=== PATIENT | female | born 1960 | race Caucasian/White ===

== ENCOUNTER → 2017-12-02 11:51 | Outpatient (CLI) | payer MEDICAID, SELFPAY ==
[2017-12-02 14:17] LABS: Hematocrit 40.8 % (37-47); Hemoglobin 13.2 g/dl (12.0-15.0); Mean Corp Hgb Conc 32.4 g/gl (32-36); Mean Corpuscular Volume 92.7 fL (81-99); Mean Platelet Vol. 10.1 fl (6.2-12.0); Platelet Count 159 K/mm3 (150-450); RBC Distribution Width CV 13.7 % (11.6-14.6); RBC Distribution Width SD 45.1 fl (35.1-43.9); White Blood Count 5.1 K/mm3 (4.4-11.0)
[2017-12-02 14:20] LABS: Scan Indicated on CBC? Y/N NO
[2017-12-02 14:36] LABS: Vitamin D,25 Hydroxy 22.9 ng/mL (19.95-100.01)
[2017-12-02 14:37] LABS: Thyroid Stim Hormone (TSH) 4.82 uIU/mL (0.358-3.74)
== END ==
PROVIDERS: Family Provider Family Medicine; PCP Family Medicine; Visit Provider Family Medicine
DX: E11.9 Type 2 diabetes mellitus without complications (principal); E03.9 Hypothyroidism, unspecified; E55.9 Vitamin D deficiency, unspecified
CPT/HCPCS: 36415; 82306; 83036; 84443; 85027

== ENCOUNTER → 2018-12-29 13:12 | Outpatient (CLI) | payer MEDICAID, SELFPAY ==
[2018-12-29 14:30] LABS: Absolute Lymphocyte Count 2.08 X10^3/ul (0.83-4.51); Absolute Neutrophil Count 2.7 X10^3/uL (2.0-7.7); Basophil# 0.01 X10^3/uL; Basophil% 0.2 % (0-1); Eosinophil# 0.05 X10^3/uL; Hematocrit 41.8 % (37-47); Hemoglobin 12.8 g/dl (12.0-15.0); Lymphocyte # 2.08 X10^3/ul (4.0); Lymphocyte % 40.2 % (19-41); Mean Corp Hgb Conc 30.6 g/gl (32-36); Mean Corpuscular Volume 94.6 fL (81-99); Mean Platelet Vol. 9.9 fl (6.2-12.0); Monocyte# 0.31 X10^3/uL; Neutrophil % 52.2 % (47-70); Platelet Count 170 K/mm3 (150-450); RBC Distribution Width CV 13.6 % (11.6-14.6); RBC Distribution Width SD 45.1 fl (35.1-43.9); Red Blood Count 4.42 M/mm3 (4.2-5.4); White Blood Count 5.2 K/mm3 (4.4-11.0)
[2018-12-29 14:33] LABS: POSITIVE COUNT NO; POSITIVE DIFFERENTIAL NO; POSITIVE MORPHOLOGY NO
[2018-12-29 14:41] LABS: Hemoglobin A1c 7.6 % (4.2-6.3)
[2018-12-29 14:50] LABS: ALB/GLOB Ratio 0.8 RATIO (0.9-2.4); AST(SGOT) 14 U/L (15-37); Alanine Aminotransfer ALT/SGPT 22 U/L (13-56); Albumin, Serum 3.1 g/dL (3.2-5.0); Alkaline Phosphatase 82 U/L (45-117); Anion Gap 10 (5-15); BUN 17 mg/dL (7-18); BUN/Creat Ratio 18.7 RATIO (10-20); Calcium,Total 8.7 mg/dL (8.5-10.1); Chloride 101 mmol/L (98-107); Cholesterol 193 mg/dL (200); Creatinine, Serum 0.91 mg/dL (0.55-1.02); EST Glomerular Filtration Rate 67 mL/min (>60); Est Glom Filt Rate - Afr Amer 82 mL/min (>60); Glucose 173 mg/dL (74-106); High Density Lipoprotein 55 mg/dL; Potassium 4.2 mmol/L (3.5-5.1); Protein, Total 7.1 g/dL (6.4-8.2); Sodium Level 141 mmol/L (136-145); Triglycerides 220 mg/dL; Very Low Density Lipoprotein 44 mg/dL (5-40)
[2018-12-29 14:53] LABS: Vitamin B12 1076 pg/mL (211-911); Vitamin D,25 Hydroxy 26.8 ng/mL (29.95-100.01)
== END ==
PROVIDERS: Family Provider Family Medicine; PCP Family Medicine; Referring Provider Family Medicine; Visit Provider Family Medicine
DX: E11.9 Type 2 diabetes mellitus without complications (principal); E78.00 Pure hypercholesterolemia, unspecified; E55.9 Vitamin D deficiency, unspecified; R53.81 Other malaise; R53.83 Other fatigue
CPT/HCPCS: 36415; 80053; 80061; 82306; 82607; 83036; 84443; 85025

== ENCOUNTER → 2019-07-23 14:35 | Outpatient (CLI) | payer MEDICAID, SELFPAY ==
[2019-07-23 15:41] LABS: Hematocrit 42.4 % (37-47); Hemoglobin 13.5 g/dL (12.0-15.0); Mean Corp Hgb Conc 31.8 g/dL (32-36); Mean Corpuscular Hgb 29.5 pg (27.0-32.0); Mean Corpuscular Volume 92.8 fL (81-99); Mean Platelet Vol. 10.2 fl (6.2-12.0); Platelet Count 174 K/mm3 (150-450); RBC Distribution Width CV 13.2 % (11.6-14.6); Red Blood Count 4.57 M/mm3 (4.2-5.4); White Blood Count 7.3 K/mm3 (4.4-11.0)
[2019-07-23 16:08] LABS: Hemoglobin A1c 5.8 % (4.2-6.3)
[2019-07-23 16:30] LABS: Anion Gap 10 (5-15); BUN 26 mg/dL (7-18); BUN/Creat Ratio 27.4 RATIO (10-20); Calcium,Total 9.3 mg/dL (8.5-10.1); Chloride 102 mmol/L (98-107); Cholesterol 186 mg/dL (200); Creatinine, Serum 0.95 mg/dL (0.55-1.02); EST Glomerular Filtration Rate 64 mL/min (>60); Est Glom Filt Rate - Afr Amer 78 mL/min (>60); Glucose 89 mg/dL (74-106); High Density Lipoprotein 63 mg/dL; Potassium 4.1 mmol/L (3.5-5.1); Sodium Level 140 mmol/L (136-145); Triglycerides 214 mg/dL; Very Low Density Lipoprotein 43 mg/dL (5-40)
[2019-07-23 16:43] LABS: Vitamin B12 620 pg/mL (211-911); Vitamin D,25 Hydroxy 36.6 ng/mL (29.95-100.01)
== END ==
PROVIDERS: Family Provider Family Medicine; PCP Family Medicine; Referring Provider Family Medicine; Visit Provider Family Medicine
DX: I10 Essential (primary) hypertension (principal); E11.9 Type 2 diabetes mellitus without complications; E78.00 Pure hypercholesterolemia, unspecified; E03.9 Hypothyroidism, unspecified; E55.9 Vitamin D deficiency, unspecified
CPT/HCPCS: 36415; 80048; 80061; 82306; 82607; 83036; 84443; 85027

== ENCOUNTER → 2019-10-14 17:21 | Outpatient (CLI) | payer MEDICAID, SELFPAY ==
--- NOTE | 2019-10-14 17:28 | RAD_ITS ---
STUDY: X-RAY - SACRUM/COCCYX REASON FOR EXAM: Female, 59 years old. Pain.. TECHNIQUE: 3 view(s) of the sacrum and coccyx were obtained. COMPARISON: None. FINDINGS: Normal bilateral sacroiliac joints. Normal visualized sacral ala and fused sacral bodies. Normal sacrococcygeal junction with a normal angulation. Normal coccygeal segments. The presacral soft tissue structures are unremarkable. There is no demonstrated fracture. RAD/Sacrum-Coccyx min 2 Views IMPRESSION: Normal x-rays of the sacrum and coccyx. Electronically Signed: Stiven Lee MD at 21:25 EST , Service support ,
--- NOTE | 2019-10-14 17:35 | RAD_ITS ---
STUDY: X-RAY - LUMBAR SPINE REASON FOR EXAM: Female, 59 years old. Pain. TECHNIQUE: 3 view(s) of the lumbar spine were obtained. COMPARISON: None FINDINGS: Normal lumbar lordosis. There is no substantial scoliosis. There is a normal alignment of the vertebrae. Normal vertebral bodies and endplates. Normal disc space heights. There is no demonstrated fracture. The soft tissue structures are unremarkable. RAD/Lumbar Spine 2 or 3 Views IMPRESSION: Normal x-ray examination of the lumbar spine. Electronically Signed: Stiven Lee MD at 21:26 EST , Service support ,
== END ==
PROVIDERS: Family Provider Family Medicine; PCP Family Medicine; Referring Provider Anesthesiology Pain Medicine; Visit Provider Anesthesiology Pain Medicine
DX: M54.5 Low back pain (principal); W19.XXXA Unspecified fall, initial encounter
CPT/HCPCS: 72100; 72220

== ENCOUNTER → 2019-12-08 12:06 | Outpatient (CLI) | payer MEDICAID, SELFPAY ==
[2019-12-08 15:59] LABS: Amphetamine Urine VISTA NEGATIVE (<1000 ng/mL); Barbiturate Urine VISTA NEGATIVE (< 200 ng/mL); Benzodiazepine Urine VISTA POSITIVE (< 200 ng/mL); Cocaine Urine VISTA NEGATIVE (< 300 ng/mL); Ecstacy Urine VISTA NEGATIVE (< 500 ng/mL); Methadone Urine VISTA NEGATIVE (< 300 ng/mL); PCP Urine VISTA NEGATIVE (< 25 ng/mL); THC Urine VISTA NEGATIVE (< 50 ng/mL); Vista UDS pH Range 5
== END ==
PROVIDERS: PCP Family Medicine; Visit Provider Family Medicine
DX: F41.1 Generalized anxiety disorder (principal)
CPT/HCPCS: 80307

== ENCOUNTER → 2020-05-12 15:22 | Outpatient (CLI) | payer MEDICAID, SELFPAY ==
[2020-05-12 18:14] LABS: Anion Gap 9 (5-15); BUN 22 mg/dL (7-18); BUN/Creat Ratio 26.6 RATIO (10-20); Calcium,Total 9.1 mg/dL (8.5-10.1); Chloride 101 mmol/L (98-107); Cholesterol 241 mg/dL (200); Creatinine, Serum 0.83 mg/dL (0.55-1.02); EST Glomerular Filtration Rate 75 mL/min (>60); Est Glom Filt Rate - Afr Amer 91 mL/min (>60); Glucose 138 mg/dL (74-106); High Density Lipoprotein 51 mg/dL; Sodium Level 137 mmol/L (136-145); Triglycerides 359 mg/dL; Very Low Density Lipoprotein 72 mg/dL (5-40)
[2020-05-12 19:06] LABS: Hemoglobin A1c 5.7 % (3.8-5.6)
[2020-05-13 08:34] LABS: Vitamin B12 > 2000 pg/mL (211-911)
== END ==
PROVIDERS: PCP Family Medicine; Visit Provider Family Medicine
DX: I10 Essential (primary) hypertension (principal); E11.9 Type 2 diabetes mellitus without complications; E53.8 Deficiency of other specified B group vitamins
CPT/HCPCS: 36415; 80048; 80061; 82607; 83036

== ENCOUNTER 2020-07-27 23:01 | Emergency (ER) | payer MEDICAID, SELFPAY ==
[2020-07-27 23:03] VITALS: BP 141/77; PULSE 83; RESP 18; TEMP 37.1; O2SAT 93; BMI 45.1
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
[2020-07-28] VITALS (11 sets, daily range): BP systolic 141–156; BP diastolic 77–83; PULSE 86–100; RESP 14–17; TEMP 36.7; O2SAT 94–98
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
[2020-07-28 00:23] LABS: Absolute Lymphocyte Count 1.64 X10^3/uL (0.83-4.51); Absolute Neutrophil Count 5.9 X10^3/uL (2.0-7.7); Basophil# 0.03 X10^3/uL; Basophil% 0.4 % (0-1); Hematocrit 43.1 % (37-47); Hemoglobin 13.9 g/dL (12.0-15.0); Lymphocyte # 1.64 X10^3/ul (4.0); Lymphocyte % 20.2 % (19-41); Mean Corp Hgb Conc 32.3 g/dL (32-36); Mean Corpuscular Hgb 30.5 pg (27.0-32.0); Mean Corpuscular Volume 94.7 fL (81-99); Monocyte# 0.52 X10^3/uL; Monocyte% 6.4 % (0-10); NRBC Flagged by Analyzer 0 % (0-5); Neutrophil # 5.86 X10^3/uL (2.7-7.7); Neutrophil % 72.3 % (47-70); Platelet Count 150 K/mm3 (150-450); RBC Distribution Width CV 13.2 % (11.6-14.6); RBC Distribution Width SD 45.1 fl (35.1-43.9); Red Blood Count 4.55 M/mm3 (4.2-5.4); White Blood Count 8.1 K/mm3 (4.4-11.0)
[2020-07-28 00:57] LABS: Mucous, Urine 0 SEEN /hpf (<or=2+)
[2020-07-28 00:58] LABS: Color, Urine Yellow (Yellow); Glucose, Dipstick Normal (Normal); Leukocyte Esterase-Dipstick 500 /ul (Negative); Nitrite-Dipstick Negative (Negative); Occult Blood-Urine 10 /ul (Negative); Protein-Dipstick 30 mg/dl (Negative); Specific Gravity, Urine 1.025 (1.002-1.030); Urine Clarity Sl. Cloudy (Clear); Urine Urobilinogen 4 mg/dl (Normal)
[2020-07-28 01:03] LABS: Urine Bilirubin Dipstick 1 mg/dL (Negative)
[2020-07-28 01:04] LABS: Bacteria 1+ /hpf (None Seen); Ketone-Dipstick 150 mg/dl (Negative); Red Blood Cells-Urine 5-10 SEEN /hpf (0-5); Squamous Epithelial Cells - UA 10-25 SEEN /hpf (5-10); White Blood Cells 5-10 SEEN /hpf (0-5)
[2020-07-28 01:22] LABS: Alcohol, Blood (Medical)-Serum < 3.0 mg/dL; Anion Gap 13 (5-15); BUN 11 mg/dL (7-18); BUN/Creat Ratio 13.7 RATIO (10-20); Calcium,Total 9.2 mg/dL (8.5-10.1); Chloride 102 mmol/L (98-107); EST Glomerular Filtration Rate 78 mL/min (>60); Est Glom Filt Rate - Afr Amer 94 mL/min (>60); Estimated Creatinine Clearance 65.38 ml/min; Glucose 127 mg/dL (74-106); Potassium 3.6 mmol/L (3.5-5.1); Sodium Level 139 mmol/L (136-145)
[2020-07-28 01:23] LABS: Amphetamine Urine VISTA NEGATIVE (<1000 ng/mL); Barbiturate Urine VISTA NEGATIVE (< 200 ng/mL); Benzodiazepine Urine VISTA POSITIVE (< 200 ng/mL); Cocaine Urine VISTA NEGATIVE (< 300 ng/mL); Ecstacy Urine VISTA NEGATIVE (< 500 ng/mL); Methadone Urine VISTA NEGATIVE (< 300 ng/mL); PCP Urine VISTA NEGATIVE (< 25 ng/mL); THC Urine VISTA NEGATIVE (< 50 ng/mL); Vista UDS pH Range 6
--- NOTE | 2020-07-28 01:28 | NURSING ---
REPORT FAXED TO [facility]
[2020-07-28] MEDS: busPIRone 5 MG Tablet 10 MG PO (03:14)
--- NOTE | 2020-07-28 03:35 | ED.RN ---
MARIO PASTRANA FOR PT TO TAKE HER HOME NIGHTLY MEDS.
--- NOTE | 2020-07-28 12:23 | CM.ED ---
Social Work Telephone call from [facility]. Requesting for COVID-19 results and tox screen to be faxed to [facility]. Above clinical information faxed to [facility]. Robb GREEN, DORA
--- NOTE | 2020-07-28 12:51 | CM.ED ---
Social Work [facility] faxing COVID-19 screen to be completed with patient. This social director assisting patient in completing COVID-19 screen. COVID-19 screen and pink slip faxed per [facility] request. Crisis updated. Robb GREEN, SELENA-S
== END 2020-07-28 14:40 ==
LOC: ED 07-28 00:42
PROVIDERS: Emergency Medicine; Emergency Provider Emergency Medicine; PCP Internal Medicine
DX: F20.9 Schizophrenia, unspecified (principal); E66.9 Obesity, unspecified
CPT/HCPCS: 36415; 80048; 80307; 80320; 81001; 85025; 87635; 99285; G0480; U0003

== ENCOUNTER → 2021-03-02 16:48 | Outpatient (CLI) | payer MEDICAID, SELFPAY ==
--- NOTE | 2021-03-02 16:52 | RAD_ITS ---
STUDY: X-RAY - CERVICAL SPINE REASON FOR EXAM: Female, 60 years old. NECK PAIN TECHNIQUE: 3 view(s) of the cervical spine were obtained. COMPARISON: None FINDINGS: Normal anterior atlantoaxial articulation. Normal odontoid process. Normal cervical lordosis. Mild degree of disc space narrowing and spondylosis at the C5-C6 level. Marked degree of disc space narrowing and spondylosis at the C6-C7 level. Normal visualized intervertebral neuroforamina. The soft tissue structures are unremarkable. RAD/Cerv Spine 2 or 3 Views IMPRESSION: Disc space narrowing and spondylosis at the C5-C6 and C6-C7 level. Electronically Signed: Kash Rucker MD at 15:19 EDT , Service support ,
--- NOTE | 2021-03-02 17:10 | RAD_ITS ---
STUDY: X-RAY - LEFT KNEE REASON FOR EXAM: Female, 60 years old. Knee pain. TECHNIQUE: 4 view(s) of the knee. COMPARISON: None. FINDINGS: Normal visualized distal femur. Normal visualized proximal tibia and fibula. Normal proximal tibiofibular articulation. Severe arthrosis of the medial compartment, moderate arthrosis of the lateral compartment and moderate to severe arthrosis of the patellofemoral compartment with osteophyte formation. The soft tissue structures are unremarkable. RAD/Knee 4 or More Views IMPRESSION: Tricompartmental arthrosis as described. Electronically Signed: Blas Villalobos MD at 12:07 EDT , Service support ,
== END ==
PROVIDERS: PCP Internal Medicine; Referring Provider Anesthesiology Pain Medicine; Visit Provider Anesthesiology Pain Medicine
DX: M47.812 Spondylosis without myelopathy or radiculopathy, cervical region (principal); M48.02 Spinal stenosis, cervical region; M17.12 Unilateral primary osteoarthritis, left knee
CPT/HCPCS: 72040; 73564

== ENCOUNTER 2023-09-30 13:52 | Emergency (ER) | payer MEDICAID, SELFPAY ==
[2023-09-30 13:52] VITALS: BP 155/99; PULSE 76; RESP 20; TEMP 36.1; O2SAT 97
[2023-09-30 13:55] VITALS: BMI 44.3
[2023-09-30 15:52] VITALS: BP 150/90; PULSE 74; RESP 16; TEMP 36.2; O2SAT 96
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
[2023-09-30] MEDS: 0.9% Normal Saline (1000mL) 1,000 ML 1000 ML IV (16:23)
[2023-09-30] MEDS: hydrOXYzine PAM 25 MG Capsule 50 MG PO (16:24)
[2023-09-30 16:46] LABS: Bacteria 0 SEEN /hpf (None Seen); Mucous, Urine 0 SEEN /hpf (<or=2+); Red Blood Cells-Urine 0 SEEN /hpf (0-5); Squamous Epithelial Cells - UA 0 SEEN /hpf (5-10)
[2023-09-30 16:48] LABS: Color, Urine Yellow (Yellow); Glucose, Dipstick Normal (Normal); Ketone-Dipstick Negative (Negative); Leukocyte Esterase-Dipstick 25 /ul (Negative); Nitrite-Dipstick Negative (Negative); Occult Blood-Urine Negative /ul (Negative); Protein-Dipstick Negative (Negative); Urine Bilirubin Dipstick Negative (Negative); Urine Clarity Clear (Clear); Urine Urobilinogen Normal (Normal)
[2023-09-30 16:54] LABS: White Blood Cells 0-5 SEEN /hpf (0-5)
[2023-09-30 17:00] VITALS: BP 147/75; PULSE 74; RESP 16; TEMP 36.7; O2SAT 97
[2023-09-30 19:01] LABS: Absolute Neutrophil Count 4.2 X10^3/uL (2.0-7.7); Basophil# 0.03 X10^3/uL; Basophil% 0.5 % (0-1); Hematocrit 40.6 % (37-47); Lymphocyte % 23.9 % (19-41); Mean Corpuscular Hgb 30.6 pg (27.0-32.0); Mean Corpuscular Volume 95.5 fL (81-99); Mean Platelet Vol. 10.8 fl (6.2-12.0); Monocyte# 0.25 X10^3/uL; Monocyte% 4.3 % (0-10); NRBC Flagged by Analyzer 0 % (0-5); Neutrophil # 4.16 X10^3/uL (2.7-7.7); Platelet Count 129 K/mm3 (150-450); RBC Distribution Width CV 12.3 % (11.6-14.6); RBC Distribution Width SD 43.3 fl (35.1-43.9); Red Blood Count 4.25 M/mm3 (4.2-5.4); White Blood Count 5.9 K/mm3 (4.4-11.0)
[2023-09-30 19:16] LABS: AST(SGOT) 11 U/L (15-37); Alanine Aminotransfer ALT/SGPT 18 U/L (13-56); Albumin, Serum 3.3 g/dL (3.2-5.0); Alkaline Phosphatase 73 U/L (45-117); Anion Gap 4 (5-15); BUN 9 mg/dL (7-18); BUN/Creat Ratio 12.1 RATIO (10-20); Calcium,Total 8.5 mg/dL (8.5-10.1); Chloride 108 mmol/L (98-107); Creatinine, Serum 0.74 mg/dL (0.55-1.02); EST Glomerular Filtration Rate 84 mL/min (>60); Est Glom Filt Rate - Afr Amer 101 mL/min (>60); Estimated Creatinine Clearance 68.07 ml/min; Globulin 3.4 g/dL (2.2-4.2); Glucose 121 mg/dL (74-106); Potassium 3.8 mmol/L (3.5-5.1); Protein, Total 6.7 g/dL (6.4-8.2); Sodium Level 142 mmol/L (136-145)
--- NOTE | 2023-09-30 19:45 | CT_ITS ---
INDICATION: Diarrhea EXAMINATION: CT ABDOMEN AND PELVIS with CONTRAST - CT Abdomen And Pelvis W/ Contrast Injection TECHNIQUE: Multiple axial images were obtained of the abdomen and pelvis following administration of IV contrast. Planar reconstructions obtained. A radiation dose optimization technique was used for this scan. RADIATION DOSAGE (If Supplied By Facility): CTDIvol = ( 17.02 ) mGy, DLP = ( 1346.69 ) mGycm IV Contrast dosage and agent: 100 mL Isovue-370 Oral contrast: None. COMPARISON: Previous examination of 09/22/2012 is not currently available. FINDINGS: LOWER THORAX: Lungs are clear. Cardiac contour is normal, no pericardial effusion. No coronary vascular calcifications noted. HEPATOBILIARY: Liver: The liver is homogeneous and shows no evidence of focal lesion. Mild diffuse hepatic steatosis. Gallbladder: The gallbladder is unremarkable. Pancreas: Pancreas is normal size configuration and density. No mass is noted. Spleen: The spleen is homogeneous and normal in size. . BOWEL: Stomach: The stomach is normal in size configuration, no evidence of focal masses, abnormal calcifications. No hiatal hernia noted. Bowel: Small and large have normal configuration, no masses or bowel obstruction noted. Appendix: The visualized appendix has normal appearance.: GENITOURINARY: Adrenals: Both adrenal glands are normal in size. Kidneys: Kidneys appear symmetric in size. No calcifications are seen in the collecting system. There is no hydronephrosis or surrounding fluid. Bladder: Normal Pelvic organs: The visualized pelvic organs are normal in size and configuration. No masses or adenopathy noted. RETROPERITONEUM: Diffuse aortic calcifications without aneurysmal dilatation. LYMPH NODES: No evidence of retroperitoneal or para-aortic masses fluid collections or adenopathy. PERITONEAL CAVITY: No ascites noted ANTERIOR ABDOMINAL WALL: Normal, no hernia identified. BONES AND SOFT TISSUES: The skeleton shows no evidence for fractures or destructive lesions. OTHER: None CT/Abdomen/Pelvis W IV Cont ONLY IMPRESSION: 1. No masses bowel obstruction abscess free fluid or free air. No evidence diverticulitis or appendicitis. 2. No evidence of cholelithiasis or ductal dilatation. 3. No evidence of renal calcification or obstructive uropathy. 4. Mild diffuse hepatic steatosis. Electronically Signed: Tye Vance MD at 20:03 EST ,
== END 2023-09-30 20:40 | disposition home or self-care (01) ==
PROVIDERS: Emergency Provider Emergency Medicine; PCP Internal Medicine; Visit Provider Emergency Medicine
DX: F41.9 Anxiety disorder, unspecified (principal); F31.9 Bipolar disorder, unspecified; E11.9 Type 2 diabetes mellitus without complications; Z79.4 Long term (current) use of insulin; R19.7 Diarrhea, unspecified; E78.00 Pure hypercholesterolemia, unspecified; I10 Essential (primary) hypertension; Z79.899 Other long term (current) drug therapy
CPT/HCPCS: 74177; 80053; 81001; 85025; 96360; 99285; J7030; J7050; Q9967; A4216

== ENCOUNTER 2025-07-31 03:30 | Emergency (ER) | payer MEDICAID, SELFPAY ==
[2025-07-31 03:32] VITALS: BP 147/73; PULSE 83; RESP 15; TEMP 37.3; O2SAT 97
--- NOTE | 2025-07-31 03:51 | CT_ITS ---
PROCEDURE: BRAIN/HEAD WITHOUT CONTRAST 07/31/2025 REASON FOR EXAM: VERTIGO TECHNIQUE: Procedure Code: CTBR Modality: CT Procedure: BRAIN/HEAD WITHOUT CONTRAST Coronal and Sagittal reconstruction series were provided. One or more dose reduction techniques were used (e.g., Automated exposure control, adjustment of the mA and/or kV according to patient size, use of iterative reconstruction technique. RADIATION DOSE SUMMARY: CTDI Vol 44.99 mGy DLP :846.73 mGycm COMPARISON: None FINDINGS: The visualized brain parenchyma shows normal appearance. No focal parenchymal abnormalities are demonstrated. Zee-white matter differentiation is maintained. Normal CT appearance of the posterior fossa structures. No intracerebral or extra-axial hemorrhage. No midline shifts or deformity. Normal size and configuration of the cerebral ventricles. Prominent fronto-parietal extra-axial CSF spaces. No definite calvarial fractures. The osseous structures in the skull base are unremarkable. Paranasal sinuses are unremarkable. Vascular atheromatous calcifications. CT/Brain/Head without Contrast IMPRESSION: No intracerebral or extra-axial hemorrhage. No acute cerebrovascular insult. If clinical symptoms persist, further evaluati on with MRI may be considered as clinically warranted. Reading [facility]
--- NOTE | 2025-07-31 03:53 | EX.ED.DYSGE1 ---
HPI History of Present Illness Chief Complaint: Dizziness Informant: patient and EMS Narrative Narrative: Patient is a 65-year-old female with a history of severe osteoarthritis and sciatica presenting at 0330 with worsening dizziness and imbalance. - This AM, felt extremely shaky, hot, dizzy, and nauseous; required assistance to walk to the bathroom due to more severe vertigo than she has had in past several weeks. - Denies emesis, but reports nausea. - Reports severe dizziness and imbalance, exacerbated over the past 3-4 weeks since a fall. - Initially began experiencing dizziness 4 months ago - Fall occurred while attempting to adjust AC and close windows; resulted in hitting arm against a wall and falling on both knees. - Since the fall, reports worsening dizziness and imbalance, describing a sensation of vertigo and a mix of my body wanting to shut down. - Reports tingling in legs and tinnitus. - Experiencing severe neck pain radiating to the left shoulder blade since the fall. - Reports chronic sciatica pain since 2012, with recent exacerbation; has not had an MRI. - Reports inability to control bladder for the past 6 months, worsening over the last 4 months; wears Depends. - Diagnosed with severe osteoarthritis; advised to consider left knee replacement. - Reports variable blood pressure readings, with recent measurements of 155/80 and 117/80; usual BP is 118/70. - Underwent Maninder maneuver 2 days ago, which provided some relief. Saw Dr. Branch and diagnosed w/ BPPV. - Scheduled to see a new psychiatrist in July for medication management. [facility] Medical History Fibromyalgia Osteoarthritis DDD (degenerative disc disease) FHx: total knee replacement Overactive bladder Diabetes High cholesterol Hypertension Bipolar 1 disorder Depression Anxiety Panic disorder Home Medications ?Medication ?Instructions ?Recorded ?Last Taken ?Type oxybutynin chloride 10 mg 10 mg PO QHS 11/27/13 09/29/23 History tablet,extended release 24 hr (Ditropan XL) quetiapine 200 mg tablet (Seroquel) 150 mg PO QHS 11/27/13 09/29/23 History divalproex 500 mg tablet,delayed 500 mg PO BID 12/04/13 09/30/23 History release (Depakote) metoprolol tartrate 50 mg tablet 50 mg PO BID 12/04/13 09/30/23 History nystatin 100,000 unit/gram topical 1 applic topical TID ##1 08/02/14 09/30/23 Rx [facility] [place] Oxybutynin Chloride [Ditropan Xl] 5 mg PO DAILY 10/22/14 09/30/23 History cholecalciferol (vitamin D3) 25 2,000 unit PO DAILY 10/22/14 09/30/23 History mcg (1,000 unit) tablet (Vitamin D3) duloxetine 60 mg capsule,delayed 60 mg PO BID 10/22/14 09/30/23 History release omeprazole 20 mg capsule,delayed 20 mg PO DAILY 10/22/14 09/30/23 History release pregabalin 50 mg capsule 100 mg PO BID 10/22/14 09/30/23 History atorvastatin 40 mg tablet 40 mg PO QHS 07/27/20 09/29/23 History buspirone 5 mg tablet 10 mg PO TID 07/27/20 09/30/23 History furosemide 20 mg tablet 20 mg PO DAILY 07/27/20 09/30/23 History insulin glargine 100 unit/mL (3 30 - 40 unit SQ QHS 07/27/20 09/30/23 History mL) subcutaneous pen sertraline 100 mg tablet 200 mg PO DAILY 07/27/20 09/30/23 History hydroxyzine pamoate 50 mg capsule 50 mg PO TID PRN anxiety #15 caps 09/30/23 Unknown Rx Allergy/AdvReac Type Severity Reaction Status Date / Time acetaminophen (From Tylenol) Allergy Swelling Verified 09/30/23 18:56 amoxicillin (Amoxicillin) Allergy Rash Verified 09/30/23 18:56 haloperidol (From Haldol) Allergy Other Verified 09/30/23 18:56 haloperidol lactate (From Allergy Other Verified 09/30/23 18:56 Haldol) lithium ([place]) Allergy Other Verified 09/30/23 18:56 naproxen sodium (From Aleve) Allergy Swelling Verified 09/30/23 18:56 Surgical History H/O: hysterectomy History of rectal surgery History of tonsillectomy Social History Smoking Status: Never smoker ROS ROS ED Constitutional Constitutional ED: Denies chills or fever(s) Eyes Eyes: Denies change in vision or diplopia ENT ENT ED: Reports as per HPI, tinnitus and vertigo; Denies headache(s), hearing loss, rhinorrhea or sore throat Cardiovascular Cardiovascular: Denies chest pain or palpitations Respiratory/Chest Respiratory/Chest: Denies cough or dyspnea Gastrointestinal Gastrointestinal: Reports nausea; Denies abdominal pain, diarrhea or vomiting Genitourinary Genitourinary ED: Reports as per HPI and urinary incontinence; Denies dysuria or hematuria Musculoskeletal Musculoskeletal: Reports arthralgias, back pain and neck pain Integumentary Denies abscess or rash Neurologic Neurologic: Reports paresthesias LLE; Denies headache(s) or weakness Psychiatric Psychiatric: Denies suicidal thoughts EXAM Physical Exam Const Vital Signs: 07/31/25 03:32 07/31/25 05:31 07/31/25 07:00 Temperature 99.1 F Temperature Source Oral Pulse Rate 83 78 84 Respiratory Rate 15 16 16 Blood Pressure 147/73 H 114/62 143/70 H Blood Pressure Mean 97 79 94 Pulse Ox 97 95 98 Oxygen Delivery Method Room Air Room Air Positive well nourished and well developed General Appearance ED: well developed and NAD HEENT Reports moist mucous membranes normocephalic and atraumatic Eyes PERRL and EOMs intact bilaterally Eyes Narrative: No direction changing nystagmus. No visual field cuts. Neck full ROM and supple Resp normal respiratory effort and clear to auscultation bilaterally Cardio regular rate, regular rhythm and no murmurs GI non-tender and non-distended Auscultation: normoactive bowel sounds Palpation: soft Back/Spine no CVA tenderness Back/Spine Narrative: Straight leg raises are negative bilaterally; on the left it causes pain in her thigh only and on the right she has no discomfort up to about 50 degrees. No radicular symptoms reproduced. General Back: other FROM Extremity normal to inspection General Extremety ED: Negative for edema, pulses abnormal or tenderness General Extremity: Negative for edema or pulses abnormal Neuro oriented x3, CN's II-XII intact bilaterally and no sensory deficits noted Neuro Narrative: Reflexes all symmetric and unremarkable. No clonus. Downgoing toes bilaterally. Sensorium / Orientation: awake and alert Motor Exam: strength 5/5 throughout Psych Psych Narrative: Pressured speech, flight of ideas and tangential Skin no rashes or lesions noted and no wounds MDM MDM MDM Narrative Medical decision making narrative: Patient states the vertigo is worse than it had been tonight and she feels poorly all over and cannot really describe the details. She states she is here because of all of that understanding that everything else that has been going on has been chronic including her back with what she calls bilateral sciatica, she is seen she has some paresthesias in the left leg but sensation is grossly intact there. She states that when she fell 3 weeks ago she did not injure her back, just fell to her knees and her left neck has been hurting she is tender in the left trapezius but not the midline of the spine, so I do not think she needs emergent radiography of her back or neck. I performed labs and a urinalysis and they are all normal. Her urine shows no evidence of infection, she does not have leukocytosis, and after giving her Valium for the vertigo she states all of her symptoms felt a lot better including vertigo, her left trapezius pain, and the left knee pain that she has been having for a long time. I did a brain CT, my interpretation it is negative for anything acute as expected if she has BPPV. I had nursing help get her out of bed and ambulate her. She did well and felt better. Given the chronicity of the rest of her symptoms, I feel she can safely be discharged home to follow-up. Lab Data Attestation: I reviewed the patient's lab results. Labs: Laboratory Results - last 24 hr 07/31/25 07/31/25 04:01 06:08 WBC 6.0 RBC 4.55 Hgb 13.7 Hct 41.5 MCV 91.2 MCH 30.1 MCHC 33.0 RDW Std Deviation 41.9 RDW Coeff of [place] 12.7 Plt Count 164 MPV 10.3 Immature Gran % (Auto) 0.200 Neut % (Auto) 46.2 L Lymph % (Auto) 44.5 H [place] % (Auto) 6.7 Eos % (Auto) 1.7 Baso % (Auto) 0.7 Absolute Neuts (auto) 2.8 Absolute Lymphs (auto) 2.65 Nucleated RBC % 0 Sodium 140 Potassium 3.8 Chloride 101 Carbon Dioxide 27.3 Anion Gap 12 BUN 13 Creatinine 0.77 Estim Creat Clear Calc 91.94 Est GFR (MDRD) Non-Af 87 BUN/Creatinine Ratio 17.4 Glucose 207 H Calcium 9.1 Total Bilirubin 0.20 AST 21 ALT 18 Alkaline Phosphatase 82 Total Protein 6.6 Albumin 4.0 Globulin 2.5 Albumin/Globulin Ratio 1.6 Urine Color Yellow Urine Clarity Clear Urine pH 5.0 Ur Specific [place] 1.030 Urine Protein 15 H Urine Glucose (UA) Normal Urine Ketones Negative Urine Occult Blood Negative Urine Nitrite Negative Urine Bilirubin Negative Urine Urobilinogen Normal Ur Leukocyte Esterase Negative Urine RBC 0 SEEN Urine WBC 0 SEEN Ur Squamous Epith Cells 0-5 SEEN Urine Bacteria 0 SEEN Urine Mucus 0 SEEN Radiography Diagnostic Testing: Clinical Impression(s) from Imaging Studies Brain CT 07/31/25 03:51 IMPRESSION: No intracerebral or extra-axial hemorrhage. No acute cerebrovascular insult. If clinical symptoms persist, further evaluation with MRI may be considered as clinically warranted. Reading Location: [place] [id number] Discharge Plan Triage Chief Complaint: Dizziness ED Provider: Jose Khoury Dx/Rx/DC Orders Clinical Impression: Episodic peripheral vertigo, Malaise, Multiple somatic complaints, Chronic low back pain Instructions: Vertigo Inner Ear Problems Prescriptions: No Action oxybutynin chloride [Ditropan XL] 10 MG tablet extended release 24hr 10 mg PO QHS quetiapine [Seroquel] 200 MG tablet 150 mg PO QHS divalproex [Depakote] 500 MG tablet,delayed release (DR/EC) 500 mg PO BID metoprolol tartrate 50 MG tablet 50 mg PO BID nystatin [Nyamyc] 1 APPLIC bottle 1 applic topical TID Qty: 1 1RF Oxybutynin Chloride [Ditropan Xl] 5 MG tablet 5 mg PO DAILY omeprazole 20 MG capsule 20 mg PO DAILY duloxetine 60 MG capsule 60 mg PO BID pregabalin 50 MG capsule 100 mg PO BID cholecalciferol (vitamin D3) [Vitamin D3] 1,000 UNIT tablet 2,000 unit PO DAILY atorvastatin 40 MG tablet 40 mg PO QHS sertraline 100 MG tablet 200 mg PO DAILY furosemide 20 MG tablet 20 mg PO DAILY buspirone 5 MG tablet 10 mg PO TID insulin glargine 100 UNIT/ML insulin pen 30 - 40 unit SQ QHS hydroxyzine pamoate 50 mg capsule 50 mg PO TID PRN (Reason: anxiety) Qty: 15 0RF Primary Care Provider: Sheridan Strickland Referrals: Sheridan Strickland MD [Primary Care Provider, Internal Medicine] - 3-5 Days if not improving Print Language: Icelandic Disposition Disposition: Home, Self Care
--- OUTSIDE RECORDS SUMMARY | 2025-07-31 03:55 | XMS RPT_ITS | CCD ---
Author Organization [facility] Care Team Providers Care Cilnical Scientist Name Role Phone Marco A MCDERMOTT, Monik Primary Care Provider [phone] [facility], Keti Unavailable Monik Hackett MD Primary Care Provider [phone] [facility], F[place] Unavailable Monik Hackett MD Primary Care Provider GANTA, MONIK Primary Care Unavailable CARYL BARAJAS-WILLY RODRIGUEZ Primary Care Physician [facility], [place]eti Unavailable Josh Morin Attending Unavailable Ganta, Monik Primary Care Unavailable Monik Hackett MD Primary Care Provider Kelsi Alfred PA-C Unavailable Older GENETICS PHYSICIANRAFAEL, Lala Unavailable Liliana Espinoza PA-C Unavailable GANTA, MONIK Primary Care Unavailable OLDER, LALA Referring Unavailable OLDER, LALA Attending Unavailable GANTA, MONIK Primary Care Unavailable GANTA, MONIK Primary Care Unavailable SPENCER, JAIME Referring Unavailable GANTA, MONIK Primary Care Unavailable SELF Referring Unavailable SPENCER, JAIME Attending Unavailable GANTA, MONIK Primary Care Unavailable GANTA, MONIK Referring Unavailable GANTA, MONIK Referring Unavailable GANTA, MONIK Primary Care Unavailable GANTA, MONIK Attending Unavailable GANTA, MONIK Primary Care Unavailable SPENCER, JAIME Referring Unavailable Allergies Allergy Classification Reported Allergen(s) Allergy Type Date of Onset Reaction(s) Facility Acetaminophen (2 sources) Acetaminophen Drug Allergy 0 Intolerance [facility] Anti-Epileptic Agents (2 sources) gabapentin Drug Allergy 0 Intolerance [facility] glimepiride (2 sources) glimepiride Drug Allergy 0 Intolerance [facility] Haloperidol (2 sources) Haloperidol Drug Allergy 0 Other: See Comments [facility] liraglutide (2 sources) liraglutide Drug Allergy 0 GI Upset [facility] [place] (2 sources) [place] Drug Allergy 0 Other: See Comments [facility] metFORMIN (2 sources) metFORMIN Drug Allergy 0 Diarrhea [facility] Penicillins (antibiotic) (2 sources) Penicillins Drug Allergy 7 Unknown [facility] Povidone-Iodine (2 sources) Povidone-Iodine Drug Allergy 7 Unknown [facility] Work Phone: (20 sources) Acetaminophen; Translations: [ACETAMINOPHEN] Drug Allergy 0 Intolerance [facility] (20 sources) gabapentin; Translations: [GABAPENTIN] Drug Allergy 0 Intolerance [facility] Work Phone: (20 sources) glimepiride; Translations: [GLIMEPIRIDE] Drug Allergy 0 Intolerance [facility] Work Phone: (20 sources) Haloperidol; Translations: [HALOPERIDOL] Drug Allergy 0 Other: See Comments [facility] Work Phone: (20 sources) liraglutide; Translations: [LIRAGLUTIDE] Drug Allergy 0 GI Upset [facility] Work Phone: (20 sources) [place]; Translations: [LITHIUM] Drug Allergy 0 Other: See Comments [facility] Work Phone: (20 sources) metFORMIN; Translations: [METFORMIN] Drug Allergy 0 Diarrhea [facility] Work Phone: (7 sources) Penicillins; Translations: [PENICILLINS] Propensity to adverse reactions to drug 7 Unknown [facility] Work Phone: (20 sources) Povidone-Iodine; Translations: [POVIDONE-IODINE] Drug Allergy 7 Unknown [facility] Work Phone: (20 sources) Penicillins Propensity to adverse reactions to drug 7 Unknown [facility] Work Phone: (2 sources) traMADol; Translations: [tramadol] Drug Allergy [facility] (1 source) Acetaminophen Drug Allergy 3 [facility] (1 source) Amoxicillin Drug Allergy 3 [facility] (1 source) Haloperidol Drug Allergy 3 [facility] (1 source) Haloperidol Drug Allergy 3 [facility] (1 source) [place] Drug Allergy 3 [facility] (1 source) Naproxen Drug Allergy 3 [facility] (14 sources) Penicillins Propensity to adverse reactions to drug 7 Unknown [facility] Medications Current Medications Medication Drug Class(es) Dates Sig (Normalized) Sig (Original) acetaminophen 325 mg / HYDROcodone bitartrate 5 mg oral tablet (1 source) Opioid Agonist Start: 07-15-2023 End: 07-18-2023 take 1 tablet by mouth every eight hours as needed for pain Burchard 325- 5 mg oral tablet Dose = 1 tab(s), Oral, q8h, PRN as needed for pain, X 3 day(s), # 9 tab(s), 0 Refill(s), Fibromyalgia, 116 Start Date: 07/15/23 Stop Date: 07/18/23 Status: Ordered [id number] 200 actuat albuterol 0.09 mg/actuat metered dose inhaler (20 sources) beta2-Adrenergic Agonist Start: 01-24-2024 take 2 puff(s) by inhalation every four hours as needed albuterol HFA (PROVENTIL HFA, VENTOLIN HFA) 90 mcg/actuation inhaler Inhale 2 Puffs as instructed every 4 hours as needed. 1 Each 5 01/24/2024 Active Comment on above: Inhale 2 Puffs as in structed every 4 hours as needed. Blood-Glucose Meter monitoring kit (9 sources) Start: 04-01-2025 Blood-Glucose Meter monitoring kit Glucose Meter of Choice - Kit - Dx: Type 2 DM - Controlled E11.9 Check sugars 3 times a day 1 each 04/01/2025 Active Start: 07-15-2023 End: 07-16-2023 Blood-Glucose Meter monitori ng kit Glucose Meter of Choice - Kit - Dx: Type 2 DM - Controlled E11.9 Testing 3 times per day/pt on insulin 1 Each 0 07/15/2023 07/16/2023 Active Comment on above: Glucose Meter of Cho ice - Kit - Dx: Type 2 DM - Controlled E11.9 Testing 3 times per day/pt on insulin Budesonide / formoterol (20 sources) Corticosteroid, beta2-Adrenergic Agonist Start: 01-24-20 take 2 puff(s) by inhalation twice daily budesonide-formote rol (SYMBICORT) 160-4.5 mcg/actuation inhaler Inhale 2 Puffs as instructed two times a day. 1 Each 5 01/24/2024 Active Comment on above: Inhale 2 Puffs as in structed two times a day. DULoxetine 60 mg delayed release oral capsule (20 sources) Serotonin and Norepinephrine Reuptake Inhibitor Start: 07-09-20 DULoxetine 60 mg oral delayed release capsule 0 Refill(s) Start Date: 07/09/23 Status: Ordered take 1 capsule by mouth once asia ly DULoxetine (CYMBALTA) 40 mg cpDR take 1 capsule by mouth once daily take with 60 milligram capsule TO EQUAL 100 MILLIGRAMS Oral for 30 Days Active take 60 mg by mouth twice daily, then take 100 mg by mouth once daily DULoxetine 60 mg CDRS Indications: Schizophrenia, unspecified type (HCC) Take 60 mg by mouth two times a day. 100 MG by mouth daily Active Comment on above: Take 60 mg by mouth twice daily. Take 60 mg by mouth twice daily. 60mg morning 40 evening Take 60 mg by mouth two times a day. 100 MG by mouth daily ergocalciferol 1.25 mg oral capsule (20 sources) Provitamin D2 Compound Start: 04-01-20 take 1 capsule by mouth every week ergocalciferol 50,000 unit capsule (VITAMIN D2, DRISDOL) Indications: Vitamin D deficiency Take 1 capsule by mouth one time a week. 12 capsule 1 04/01/2025 Active Start: 02-19-2024 End: 03-30-2025 take 1 capsule by mouth every week ergocalciferol 50,000 unit capsule (VITAMIN D2, DRISDOL) Indications: Vitamin D deficiency Take 1 capsule by mouth one time a week. 12 capsule 1 06/18/2024 03/30/2025 Discontinued Start: 07-09-2023 ergocalciferol 50,000 intl units (1.25 mg) oral capsule 0 Refill(s) Start Date: 07/09/23 Status: Ordered Start: 09-26-2022 End: 02-06-2024 take 1 capsule by mouth two times weekly, then take 1 capsule by mouth two times weekly, then take 1 capsule by mouth every week ergocalciferol 50,000 unit capsule (VITAMIN D2, DRISDOL) Take 1 capsule by mouth two times a week. TO BE TAKEN ORALLY DIRECTED. Take 1 tablet by mouth twice weekly [id number], then decrease to 1 tablet weekly. 24 capsule 2 09/26/2022 02/06/2024 Discontinued Start: 10-14-2020 End: 09-24-2022 take 1 capsule by mouth two times weekly, then take 1 capsule by mouth two times weekly, then take 1 capsule by mouth every week ergocalciferol 50,000 unit capsule (VITAMIN D2, DRISDOL) Take 1 capsule by mouth two times a week. TO BE TAKEN ORALLY DIRECTED. Take 1 tablet by mouth twice weekly [id number], then decrease to 1 tablet weekly. 24 capsule 2 10/14/2020 09/24/2022 Discontinued Comment on above: Take 1 capsule by [facility] two times a week. TO BE TAKEN ORALLY DIRECTED. Take 1 tablet by mouth twice weekly [id number], then decrease to 1 tablet weekly. ferrous sulfate 325 mg oral tablet (20 sources) Start: 04-01-2025 take 1 tablet by mouth twice daily at mealtime ferrous sulfate 325 mg (65 mg iron) tablet Indications: History of iron deficiency Take 1 tablet by mouth two times a day with meals. 180 tablet 1 04/01/2025 Active Start: 02-10-2025 End: 03-30-2025 take 1 tablet by mouth twice daily at mealtime ferrous sulfate 325 mg (65 mg iron) tablet Indications: History of iron deficiency Take 1 tablet by mouth two times a day with meals. 60 tablet 11 02/10/2025 03/30/2025 Discontinued Start: 07-09-2023 ferrous sulfat e 325 mg (65 mg elemental iron) oral tablet 0 Refill(s) Start Date: 07/09/23 Status: Ordered Start: 06-21-2022 End: 02-08-2025 take 1 tablet by mouth twice daily at mealtime ferrous sulfate 325 mg (65 mg iron) tablet Indications: History of iron deficiency Take 1 tablet by mouth two times a day with meals. 60 tablet 11 01/08/2024 02/08/2025 Discontinued Start: 10-03-2021 End: 03-13-2022 take 1 tablet by mouth twice daily at mealtime ferrous sulfate (SLOW FE) 140 mg (45 mg iron) TbER Indications: Fatigue, unspecified type Take 1 tablet by mouth twice daily with meals. 180 tablet 1 03/14/2022 Active Comment on above: Take 1 tablet by romeo th twice daily with meals. TAKE 1 TABLET BY ROMEO TH TWICE A DAY WITH MEALS Take 1 tablet by romeo th two times a day with meals. fezolinetant (VEOZAH) 45 mg tablet (4 sources) Start: End: take 1 tablet by mouth once daily fezolinetant (VEOZAH) 45 mg tablet Take 1 tablet (45 mg) by mouth once daily. 30 tablet 0 02/27/2024 03/28/2024 Active furosemide 20 mg oral tablet (20 sources) Loop Diuretic Start: furosemide (LASIX) 20 mg tablet Indications: Essential hypertension, benign Alternate 2 pills with 1 pill daily 45 tablet 2 04/01/2025 Active Start: 01-22-2025 End: 03-30-2025 furosemide (LASIX) 20 mg tab let Indications: Essential hypertension, benign Alternate 2 pills with 1 pill daily 45 tablet 2 01/22/2025 03/30/2025 Discontinued Start: 04-29-2024 End: 01-20-2025 furosemide (LASIX) 20 mg tab let Indications: Essential hypertension, benign Alternate 2 pills with 1 pill daily 45 tablet 2 04/29/2024 01/20/2025 Discontinued Start: 07-09-2023 furosemide 0 R efill(s) Start Date: 07/09/23 Status: Ordered Start: 10-03-2021 End: 04-27-2024 furosemide (LASIX) 20 mg tab let Indications: Essential hypertension, benign Take 1 tablet by mouth once daily. Alternate 2 pills with 1 pill daily 45 tablet 5 10/03/2021 08/13/2023 Discontinued Comment on above: Take 1 tablet by romeo th once daily. Alternate 2 pills with 1 pill daily hydrOXYzine hydrochloride 25 mg oral tablet (20 sources) Antihistamine Start: 04-01-20 take 1 tablet by mouth four times daily as needed for anxiety and anxiety hydrOXYzine HCl (ATARAX) 25 mg tablet Indications: Insomnia, unspecified type Take 1 tablet by mouth four times a day as needed for anxiety (take at bedtime to help with sleep and during the day if needed for anxiety). 30 tablet 2 04/01/2025 Active Start: 01-22-2025 End: 03-30-2025 take 1 tablet by mouth four times daily as needed for anxiety and anxiety hydrOXYzine HCl (ATARAX) 25 mg tablet Indications: Insomnia, unspecified type Take 1 tablet by mouth four times a day as needed for anxiety (take at bedtime to help with sleep and during the day if needed for anxiety). 30 tablet 2 01/22/2025 03/30/2025 Discontinued Start: 11-10-2024 End: 01-20-2025 take 1 tablet by mouth four times daily as needed for anxiety and anxiety hydrOXYzine HCl (ATARAX) 25 mg tablet Indications: Insomnia, unspecified type Take 1 tablet by mouth four times a day as needed for anxiety (take at bedtime to help with sleep and during the day if needed for anxiety). 30 tablet 2 11/10/2024 01/20/2025 Discontinued 3 ml insulin glargine 100 unt/ml pen injector (20 sources) Insulin Analog Start: 06-17-2024 End: 02-23-2025 insulin glargine (LANTUS SOLOSTAR U-100 INSULIN) 100 unit/mL (3 mL) Inject 30 Units subcutaneously once daily. 15 mL 3 02/23/2025 Active Start: 03-17-2024 insulin glargi ne (LANTUS SOLOSTAR U-100 INSULIN) 100 unit/mL (3 mL) Inject 30 Units subcutaneously once daily. 15 mL 3 03/17/2024 Active Start: 09-12-2023 Lantus Solosta r Pen 100 units/mL 3 mL Pen 0 Refill(s) Start Date: 07/09/23 Status: Ordered Start: 05-27-2023 insulin glargi ne (LANTUS SOLOSTAR U-100 INSULIN) 100 unit/mL (3 mL) Inject 30 Units subcutaneously once daily. 15 mL 3 05/27/2023 Active Start: 04-11-2023 End: 05-27-2023 insulin glargine (LANTUS YUVAL OSTAR U-100 INSULIN) 100 unit/mL (3 mL) Inject 24 Units subcutaneously once daily. 15 mL 3 04/16/2023 05/27/2023 Discontinued Start: 07-28-2021 End: 04-11-2023 insulin glargine (BASAGLAR K WIKPEN U-100 INSULIN) 100 unit/mL (3 mL) Indications: Controlled type 2 diabetes mellitus without complication, with long-term current use of insulin (HCC) Take 40 units in the morning and 35 units at bedtime 6 Pen 5 07/28/2021 04/11/2023 Discontinued Comment on above: Take 40 units in the morning and 35 units at bedtime Inject 24 Units subc utaneously once daily. Inject 30 Units subc utaneously once daily. insulin glargine-yfgn (SEMGLEE,INSULIN GLARG-YFGN,PEN) 100 unit/mL (3 mL) insulin pen (20 sources) Start: 04-01-2025 insulin glargine-yfgn (SEMGLEE,INSULIN GLARG-YFGN,PEN) 100 unit/mL (3 mL) insulin pen INJECT 30 UNITS SUBCUTANEOUSLY ONCE DAILY 15 mL 3 04/01/2025 Active Start: 06-12-2024 End: 03-30-2025 insulin glargine-yfgn (SEMGL EE,INSULIN GLARG-YFGN,PEN) 100 unit/mL (3 mL) insulin pen INJECT 30 UNITS SUBCUTANEOUSLY ONCE DAILY 15 mL 3 06/12/2024 03/30/2025 Discontinued Start: 06-12-2024 insulin glargi ne-yfgn (SEMGLEE,INSULIN GLARG-YFGN,PEN) 100 unit/mL (3 mL) insulin pen INJECT 30 UNITS SUBCUTANEOUSLY ONCE DAILY 15 mL 3 06/12/2024 Active isopropyl alcohol 0.7 ml/ml medicated pad (20 sources) Start: 04-01-2025 alcohol swabs Apply 1 application to affected area three times a day. 100 each 11 04/01/2025 Active Start: 01-04-2023 End: 03-30-2025 alcohol swabs Apply 1 applic ation to affected area three times a day. 100 Each 11 08/12/2024 03/30/2025 Discontinued Start: 05-17-2022 End: 01-01-2023 alcohol swabs Indications: C ontrolled type 2 diabetes mellitus without complication, with long-term current use of insulin (HCC) Apply 1 application to affected area three times daily. 100 Each 5 05/17/2022 01/01/2023 Discontinued Start: 08-09-2021 End: 05-14-2022 alcohol swabs Indications: C ontrolled type 2 diabetes mellitus without complication, with long-term current use of insulin (HCC) Apply 1 application to affected area three times daily. 100 Each 5 08/09/2021 05/14/2022 Discontinued Comment on above: Apply 1 application to affected area three times daily. Apply 1 application to affected area three times a day. 24 hr metFORMIN hydrochloride 500 mg extended release oral tablet (20 sources) Biguanide Start: take 1 tablet by mouth once daily at breakfast metFORMIN ER (GLUCOPHAGE XR) 500 mg 24 hr tablet Take 1 tablet by mouth daily with breakfast. 90 tablet 1 04/01/2025 Active Start: 03-13-2024 End: 03-30-2025 take 1 tablet by mouth once daily at breakfast metFORMIN ER (GLUCOPHAGE XR) 500 mg 24 hr tablet Take 1 tablet by mouth daily with breakfast. 30 tablet 05/06/2024 03/30/2025 Discontinued Start: 08-09-2023 End: 03-12-2024 take 1 tablet by mouth once daily at breakfast metFORMIN (GLUCOPHAGE) 500 mg tablet Indications: Controlled type 2 diabetes mellitus without complication, with long-term current use of insulin ([facility]) Take 1 tablet by mouth daily with breakfast. 30 tablet 08/09/2023 03/12/2024 Discontinued Start: 12-21-2021 End: 04-11-2023 take 1 tablet by mouth once daily at breakfast metFORMIN ER (GLUCOPHAGE XR) 500 mg 24 hr tablet Take 1 tablet by mouth daily with breakfast. 30 tablet 11 02/01/2023 04/11/2023 Discontinued (Side Effects) Comment on above: Take 1 tablet by romeo th daily with breakfast. metoprolol tartrate 50 mg oral tablet (20 sources) beta-Adrenergic Sushant Start: 07-05-2023 End: 04-01-2026 take 1 tablet by mouth twice daily metoprolol tartrate, short acting, (LOPRESSOR) 50 mg tablet Indications: Essential hypertension, benign Take 1 tablet by mouth two times a day. 180 tablet 3 04/01/2025 04/01/2026 Active Start: 07-05-2022 End: 04-08-2023 take 1 tablet by mouth twice daily metoprolol tartrate, short acting, (LOPRESSOR) 50 mg tablet Indications: Essential hypertension, benign Take 1 tablet by mouth twice daily. 180 tablet 01/02/2023 04/08/2023 Discontinued Start: 01-03-2022 End: 07-03-2022 take 1 tablet by mouth twice daily metoprolol tartrate, short acting, (LOPRESSOR) 50 mg tablet Indications: Essential hypertension, benign Take 1 tablet by mouth twice daily. 180 tablet 1 01/03/2022 07/03/2022 Discontinued Comment on above: Take 1 tablet by romeo th twice daily. Take 1 tablet by romeo th two times a day. omeprazole 20 mg delayed release oral capsule (20 sources) Proton Pump Inhibitor Start: 07-09-2023 omeprazole Oral, qDay, 0 Refill(s) Start Date: 07/09/23 Status: Ordered Start: 04-26-2021 End: 08-09-2023 take 1 capsule by mouth once daily omeprazole (PRILOSEC) 20 mg capsule Indications: Esophageal reflux Take 1 capsule by mouth once daily. 30 capsule 08/09/2023 Active Comment on above: Take 1 capsule by mo [facility] once daily. 24 hr oxybutynin chloride 10 mg extended release oral tablet (20 sources) Cholinergic Muscarinic Antagonist Start: take 1 tablet by mouth once daily at bedtime oxybutynin ER (DITROPAN XL) 10 mg 24 hr tablet Indications: Need for vaccination Take 1 tablet by mouth daily at bedtime. 90 tablet 1 04/01/2025 Active Start: 01-22-2025 End: 03-30-2025 take 1 tablet by mouth once daily at bedtime oxybutynin ER (DITROPAN XL) 10 mg 24 hr tablet Indications: Need for vaccination Take 1 tablet by mouth daily at bedtime. 30 tablet 5 01/22/2025 03/30/2025 Discontinued Start: 12-09-2023 End: 01-20-2025 take 1 tablet by mouth once daily at bedtime oxybutynin ER (DITROPAN XL) 10 mg 24 hr tablet Indications: Need for vaccination Take 1 tablet by mouth daily at bedtime. 30 tablet 5 08/20/2024 01/20/2025 Discontinued Start: 07-09-2023 take 10 tablets by m outh every hour oxybutynin 10 mg/24 hr oral tablet, extended release 0 Refill(s) Start Date: 07/09/23 Status: Ordered Start: 08-22-2022 End: 12-07-2023 take 1 tablet by mouth once daily at bedtime oxybutynin ER (DITROPAN XL) 10 mg 24 hr tablet Indications: Need for vaccination Take 1 tablet by mouth daily at bedtime. 30 tablet 5 11/13/2022 08/21/2023 Discontinued Start: 05-17-2022 End: 08-20-2022 take 1 tablet by mouth once daily at bedtime oxybutynin ER (DITROPAN XL) 10 mg 24 hr tablet Indications: Need for vaccination Take 1 tablet by mouth daily at bedtime. 30 tablet 5 05/17/2022 08/20/2022 Discontinued Start: 11-01-2021 End: 05-14-2022 take 1 tablet by mouth once daily at bedtime oxybutynin ER (DITROPAN XL) 10 mg 24 hr tablet Indications: Need for vaccination Take 1 tablet by mouth daily at bedtime. 30 tablet 5 11/01/2021 05/14/2022 Discontinued Comment on above: Take 1 tablet by romeo th daily at bedtime. potassium chloride 10 meq extended release oral tablet (20 sources) Start: 07-09-2023 Potassium Chloride (Vxi-Sayl-Mlb 10) 10 mEq oral tablet, extended release 0 Refill(s) Start Date: 07/09/23 Status: Ordered Start: 08-22-2022 End: 05-18-2025 take 1 tablet by mouth once daily at breakfast potassium chloride (K-TAB) 10 mEq tablet Indications: Essential hypertension, benign Take 1 tablet by mouth daily with breakfast. Take with lasix 90 tablet 1 05/19/2025 Active Start: 10-31-2021 End: 08-20-2022 take 1 tablet by mouth once daily at breakfast potassium chloride (K-TAB) 10 mEq tablet Indications: Essential hypertension, benign Take 1 tablet by mouth daily with breakfast. Take with lasix 30 tablet 5 10/31/2021 08/20/2022 Discontinued Comment on above: Take 1 tablet by romeo th daily with breakfast. Take with lasix pregabalin 75 mg oral capsule (20 sources) Start: End: take 1 capsule by mouth twice daily pregabalin (LYRICA) 100 mg capsule Indications: Generalized pain , Burning sensation , Fibromyalgia , Moderate episode of recurrent major depressive disorder (HCC) Take 1 capsule by mouth two times a day for 180 days. To be taken with 75 mg capsule to total 175 mg twice daily. 60 capsule 5 04/26/2025 10/23/2025 Active Start: 09-09-2023 End: 08-13-2023 take 1 capsule by mouth twice daily pregabalin (LYRICA) 100 mg capsule Indications: Fibromyalgia Take 1 capsule by mouth two times a day for 60 days. Do not start before September 09, 2023. 60 capsule 1 09/09/2023 08/13/2023 Discontinued Start: 08-09-2023 End: 10-23-2025 take 1 capsule by mouth twice daily pregabalin (LYRICA) 75 mg capsule Indications: Generalized pain , Burning sensation , Fibromyalgia , Moderate episode of recurrent major depressive disorder (HCC) Take 1 capsule by mouth two times a day for 180 days. Take with 100mg tablet to equal 175mg dose 60 capsule 5 04/26/2025 10/23/2025 Active Start: 07-12-2023 End: 09-10-2023 take 1 capsule by mouth twice daily pregabalin (LYRICA) 25 mg capsule Indications: Generalized pain , Burning sensation , Fibromyalgia Take 1 capsule by mouth twice daily for 60 days. Take with 100mg tablet to equal 125mg dose 60 capsule 1 07/12/2023 08/09/2023 Discontinued Start: 11-29-2022 End: 11-08-2023 take 1 capsule by mouth twice daily pregabalin (LYRICA) 100 mg capsule Indications: Fibromyalgia Take 1 capsule by mouth twice daily for 90 days. 60 capsule 1 01/23/2023 04/06/2023 Discontinued Start: 08-22-2022 End: 11-26-2022 take 1 capsule by mouth twice daily pregabalin (LYRICA) 100 mg capsule Indications: Fibromyalgia TAKE 1 CAPSULE BY MOUTH TWICE DAILY FOR 90 DAYS. 60 capsule 2 08/22/2022 11/26/2022 Discontinued Start: 05-18-2022 End: 08-16-2022 take 1 capsule by mouth twice daily pregabalin (LYRICA) 100 mg capsule Indications: Fibromyalgia Take 1 capsule by mouth twice daily for 90 days. 60 capsule 2 05/18/2022 08/16/2022 Active Start: 11-01-2021 End: 05-10-2022 take 1 capsule by mouth twice daily pregabalin (LYRICA) 100 mg capsule Indications: Fibromyalgia Take 1 capsule by mouth twice daily for 90 days. 60 capsule 2 02/09/2022 Active Comment on above: Take 1 capsule by mo uth twice daily for 90 days. Take 1 capsule by mo uth twice daily for 60 days. Take with 100mg tablet to equal 125mg dose Take 1 capsule by mo uth two times a day for 60 days. Take with 100mg tablet to equal 175mg dose Take 1 capsule by mo uth two times a day for 60 days. Do not start before September 09, 2023. Take 1 capsule by mo uth two times a day for 60 days. To be taken with 75 mg capsule to total 175 mg twice daily. Take 1 capsule by mo uth two times a day for 180 days. Take with 100mg tablet to equal 175mg dose Take 1 capsule by mo uth two times a day for 180 days. To be taken with 75 mg capsule to total 175 mg twice daily. PULSE OXIMETER CONTEC (20 sources) Start: 3 PULSE OXIMETER CONTEC Use as needed to monitor oxygen level and heart rate 1 Each 1 10/02/2023 Active Comment on above: Use as needed to mon itor oxygen level and heart rate QUEtiapine 100 mg oral tablet (20 sources) Atypical Antipsychotic Start: 5 End: take 1 tablet by mouth once daily at bedtime QUEtiapine (SEROQUEL) 50 mg tablet Take 1 tablet by mouth daily at bedtime. 30 tablet 2 11/10/2024 01/04/2025 Discontinued Start: 07-09-2023 End: 06-30-2025 take 1 tablet by mouth once daily at bedtime QUEtiapine (SEROQUEL) 100 mg tablet Indications: Schizophrenia, unspecified type (HCC) Take 1 tablet by mouth daily at bedtime. 90 tablet 04/01/2025 06/30/2025 Active Comment on above: Take 100 mg by mouth daily at bedtime. rosuvastatin calcium 10 mg oral tablet (20 sources) HMG-CoA Reductase Inhibitor Start: take 1 tablet by mouth once daily at bedtime rosuvastatin (CRESTOR) 10 mg tablet Indications: Mixed hyperlipidemia Take 1 tablet by mouth daily at bedtime. 90 tablet 3 04/01/2025 Active Start: 09-26-2022 End: 03-30-2025 take 1 tablet by mouth once daily at bedtime rosuvastatin (CRESTOR) 10 mg tablet Indications: Mixed hyperlipidemia Take 1 tablet by mouth daily at bedtime. 90 tablet 3 01/05/2025 03/30/2025 Discontinued Start: 01-03-2022 End: 09-24-2022 take 1 tablet by mouth once daily at bedtime rosuvastatin (CRESTOR) 10 mg tablet Indications: Mixed hyperlipidemia Take 1 tablet by mouth daily at bedtime. 90 tablet 2 01/03/2022 09/24/2022 Discontinued Comment on above: Take 1 tablet by romeo th daily at bedtime. take 1 tablet by romeo th everyday at bedtime sertraline 100 mg oral tablet (20 sources) Serotonin Reuptake Inhibitor Start: 10-15-20 ZOLOFT 100 MG TAB Take one (1) and one half (1/2) tablets two (2) times daily. 0 0 10/15/2006 Active Comment on above: Take one (1) and one half (1/2) tablets two (2) times daily. terbinafine 250 mg oral tablet (7 sources) Allylamine Antifungal Start: 05-30-20 End: 08-28-20 take 1 tablet by mouth once daily terbinafine HCl (LAMISIL) 250 mg tablet Indications: Onychomycosis Take 1 tablet by mouth once daily. 90 tablet 0 05/30/2022 08/28/2022 Active Comment on above: Take 1 tablet by romeo once daily. triamcinolone acetonide 5 mg/ml topical cream (20 sources) Corticosteroid Start: 10-03-20 End: 05-06-20 triamcinolone acetonide (KENALOG) 0.5 % cream Indications: Irritant contact dermatitis due to cosmetics Apply 1 application to affected area two times a day. For rash/itching. Apply sparingly. Avoid face/skin fold. 45 g 1 02/27/2024 Active Comment on above: Apply 1 application to affected area twice daily. For rash/itching. Apply sparingly. Avoid face/skin fold. Apply 1 application to affected area two times a day. For rash/itching. Apply sparingly. Avoid face/skin fold. 24 hr divalproex sodium 250 mg extended release oral tablet (20 sources) Mood Stabilizer, Anti-epileptic Agent Start: 07-09-20 divalproex sodium 250 mg oral tablet, extended release 0 Refill(s) Start Date: 07/09/23 Status: Ordered Start: 07-09-2023 Depakote Oral, TID, 0 Refill(s) Start Date: 07/09/23 Status: Ordered take 1 tablet by [facility] twice daily divalproex DR (DEPAKOTE) 500 mg EC tablet Indications: Schizophrenia, unspecified type (HCC) Take 500 mg by mouth two times a day. Active divalproex DR (D EPAKOTE) 500 mg EC tablet Indications: Schizophrenia, unspecified type (HCC) Take 750 mg by mouth once daily. Daily in AM, extended release 500 MG by mouth twice daily Active Comment on above: Take 500 mg by mouth twice daily. Take 750 mg by mouth once daily. Daily in AM, extended release Take 750 mg by mouth once daily. Daily in AM, extended release 500 MG by mouth twice daily Completed/Discontinued Medications Medication Drug Class(es) Dates Sig (Normalized) Sig (Original) baclofen 20 mg oral tablet (2 sources) gamma-Aminobutyri c Acid-ergic Agonist Start: 06-29-2023 End: 07-04-2023 baclofen 20 mg oral tablet Dose : 20 mg = 1 tab(s), Oral, TID, # 15 tab(s), 0 Refill(s) Start Date: 06/29/23 Stop Date: 07/04/23 Status: Ordered Blood Pressure Monitor (20 sources) Start: 10-02-2023 End: 11-10-2024 Blood Pressure Monitor Indications: Essential hypertension, benign Check daily 1 Kit 10/02/2023 11/10/2024 Discontinued Start: 10-02-2023 Blood Pressure Monitor Indications: Essential hypertension, benign Check daily 1 Kit 10/02/2023 Active Start: 10-02-2023 Blood Pressure Monitor Indications: Essential hypertension, benign Check daily 1 Kit 0 10/02/2023 Active Comment on above: Check daily celecoxib 200 mg oral capsule (20 sources) Nonsteroidal Anti-inflammatory Drug Start: 2022 End: 2024 take 1 capsule by mouth once daily for pain celecoxib (CELEBREX) 200 mg capsule Take 1 capsule by mouth once daily. For neck pain 30 capsule 2 05/06/2024 11/10/2024 Discontinued Comment on above: Take 1 capsule by [facility] once daily. 0.5 ml dulaglutide 1.5 mg/ml auto-injector (5 sources) GLP-1 Receptor Agonist Start: 2022 End: 2022 inject 0.75 mg by subcutaneous injection every week dulaglutide (TRULICITY) 0.75 mg/0.5 mL pen injector Inject 0.75 mg subcutaneously one time a week. Inject dose once per week. Discard Pen After 4 Each 1 04/22/2023 05/27/2023 Discontinued Comment on above: Inject 0.75 mg subcu taneously one time a week. Inject dose once per week. Discard Pen After 2 ml ketorolac tromethamine 30 mg/ml injection (1 source) Nonsteroidal Anti-inflammatory Drug, Cyclooxygenase Inhibitor Start: 2022 End: 2022 keTORolac 60 mg injection (Toradol) PARoxetine hydrochloride 10 mg oral tablet (20 sources) Serotonin Reuptake Inhibitor Start: 2023 End: 2024 take 1 tablet by mouth once daily PARoxetine (PAXIL) 10 mg tablet Take 1 tablet by mouth once daily. for hot flashes 30 tablet 11 03/17/2024 01/22/2025 Discontinued semaglutide (OZEMPIC) 0.25 mg or 0.5 mg (2 mg/3 mL) pen (10 sources) Start: 2022 End: 2022 semaglutide (OZEMPIC) 0.25 mg or 0.5 mg (2 mg/3 mL) pen Inject 0.25mg weekly for 4 weeks and then increase dose to 0.5mg weekly. 3 mL 5 04/11/2023 05/27/2023 Discontinued Start: 04-11-2023 semaglutide (O ZEMPIC) 0.25 mg or 0.5 mg (2 mg/3 mL) pen Inject 0.25mg weekly for 4 weeks and then increase dose to 0.5mg weekly. 3 mL 5 04/11/2023 Active Comment on above: Inject 0.25mg weekly for 4 weeks and then increase dose to 0.5mg weekly. SEMGLEE,INSULIN GLARG-YFGN,PEN 100 unit/mL (3 mL) insulin pen (20 sources) Start: 06-12-2023 End: 06-11-2024 SEMGLEE,INSULIN GLARG-YFGN,PEN 100 unit/mL (3 mL) insulin pen INJECT 30 UNITS SUBCUTANEOUSLY ONCE DAILY 15 mL 3 06/12/2023 06/11/2024 Discontinued Start: 06-12-2023 SEMGLEE,INSULI N GLARG-YFGN,PEN 100 unit/mL (3 mL) insulin pen INJECT 30 UNITS SUBCUTANEOUSLY ONCE DAILY 15 mL 3 06/12/2023 Active Comment on above: INJECT 30 UNITS SUBC UTANEOUSLY ONCE DAILY Problems Active Problems Problem Classification Problem Date Documented Da te Episodic/Chronic Acquired foot deformities (1 source) Hammer toe; Translations: [Other hammer toe(s) (acquired), left foot] 10-09-2022 Chronic Allergic reactions (3 sources) Irritant contact dermatitis due to cosmetic; Translations: [Irritant contact dermatitis due to cosmetics] Onset: 5 08-09-2023 Episodic Anxiety disorders (20 sources) Panic disorder without agoraphobia; Translations: [Panic disorder [episodic paroxysmal anxiety]] Onset: 6 10-15-2006 Chronic Asthma (2 sources) Uncomplicated mild persistent asthma; Translations: [Mild persistent asthma, uncomplicated] 04-29-2024 Chronic Deficiency and other anemia (1 source) Iron deficiency anemia secondary to blood loss (chronic); Translations: [Iron deficiency anemia due to chronic blood loss] Onset: 5 Chronic Diabetes mellitus without complication (20 sources) Type 2 diabetes mellitus without complication; Translations: [Type 2 diabetes mellitus without complications] Onset: 3 Chronic Disorders of lipid metabolism (20 sources) Hyperlipidemia; Translations: [Hyperlipidemia, unspecified] Onset: 6 10-24-2006 Chronic Esophageal disorders (20 sources) Gastroesophageal reflux disease; Translations: [Gastro-esophageal reflux disease without esophagitis] Onset: 6 10-15-2006 Chronic Essential hypertension (18 sources) Benign essential hypertension; Translations: [Essential (primary) hypertension] Chronic Genitourinary symptoms and ill-defined conditions (1 source) Urge incontinence; Translations: [Urge incontinence] Onset: 5 Chronic Genitourinary symptoms and ill-defined conditions (1 source) Urgency of urination; Translations: [Urinary urgency] Onset: 5 Episodic Immunizations and screening for infectious disease (15 sources) Vaccination needed; Translations: [Encounter for immunization] Onset: 5 Episodic Miscellaneous mental health disorders (20 sources) Somatization disorder; Translations: [Somatization disorder] Onset: 6 10-15-2006 Chronic Mood disorders (20 sources) Recurrent major depressive episodes, moderate ; Translations: [Major depressive disorder, recurrent, moderate] Onset: 6 12-07-2020 Chronic Mycoses (2 sources) Onychomycosis; Translations: [Tinea unguium] Episodic Nonspecific chest pain (2 sources) Chest pain; Translations: [Chest pain, unspecified] 02-27-2024 Episodic Nutritional deficiencies (4 sources) Vitamin D deficiency; Translations: [Vitamin D deficiency, unspecified] Onset: 5 Chronic Nutritional deficiencies (2 sources) Cobalamin deficiency; Translations: [Deficiency of other specified B group vitamins] Episodic Osteoarthritis (1 source) Bilateral primary osteoarthritis of knee; Translations: [Primary osteoarthritis of both knees] Onset: 5 Chronic Other connective tissue disease (19 sources) Fibromyalgia; Translations: [Fibromyalgia] Onset: 3 Episodic Other connective tissue disease (1 source) Pain in right thumb; Translations: [Pain in right finger(s)] 11-25-2023 Episodic Other ear and sense organ disorders (1 source) Bilateral tinnitus; Translations: [Tinnitus, bilateral] 04-16-2025 Episodic Other gastrointestinal disorders (20 sources) Irritable bowel syndrome; Translations: [Irritable bowel syndrome without diarrhea] Onset: 6 10-15-2006 Chronic Other injuries and conditions due to external causes (2 sources) Injury of knee; Translations: [Unspecified injury of unspecified lower leg, initial encounter] Episodic Other lower respiratory disease (4 sources) Hypoxia; Translations: [Hypoxemia] 12-02-2023 Episodic Other lower respiratory disease (7 sources) Dyspnea; Translations: [Shortness of breath] 12-06-2023 Episodic Other lower respiratory disease (4 sources) Hypoxemia; Translations: [Hypoxemia] 02-27-2024 Episodic Other lower respiratory disease (2 sources) Dyspnea on exertion; Translations: [Shortness of breath] 02-27-2024 Episodic Other lower respiratory disease (1 source) Cough; Translations: [Acute cough] 11-04-2023 Episodic Other nervous system disorders (1 source) Chronic pain; Translations: [Other chronic pain] 04-16-2025 Chronic Other nervous system disorders (1 source) Other chronic pain; Translations: [Other chronic pain] Onset: Chronic Other nervous system disorders (10 sources) Burning sensation; Translations: [Other disturbances of skin sensation] 07-12-2023 Episodic Other nervous system disorders (1 source) Impaired cognition; Translations: [Other symptoms and signs involving cognitive functions and awareness] 07-12-2023 Episodic Other nervous system disorders (1 source) Paresthesia of lower extremity; Translations: [Paresthesia of skin] 04-16-2025 Episodic Other nutritional; endocrine; and metabolic disorders (1 source) Morbid obesity; Translations: [Morbid (severe) obesity due to excess calories] 04-29-2024 Chronic Other nutritional; endocrine; and metabolic disorders (6 sources) History of iron deficiency; Translations: [Personal history of other endocrine, nutritional and metabolic disease] Episodic Other nutritional; endocrine; and metabolic disorders (1 source) Weight increased; Translations: [Abnormal weight gain] 04-16-2025 Episodic Other nutritional; endocrine; and metabolic disorders (1 source) Personal history of other endocrine, nutritional and metabolic disease; Translations: [History of iron deficiency] Onset: Episodic Other screening for suspected conditions (not mental disorders or infectious disease) (12 sources) Patient encounter status; Translations: [Encounter for screening mammogram for malignant neoplasm of breast] Episodic Other skin disorders (1 source) Pitting of nails; Translations: [Other nail disorders] Episodic Other skin disorders (1 source) Subcutaneous nodule; Translations: [Localized swelling, mass and lump, unspecified] Episodic Other skin disorders (1 source) Eruption; Translations: [Rash and other nonspecific skin eruption] 08-09-2023 Episodic Residual codes; unclassified (10 sources) Generalized aches and pains; Translations: [Pain, unspecified] 07-12-2023 Episodic Residual codes; unclassified (1 source) Flushing; Translations: [Flushing] 02-27-2024 Episodic Residual codes; unclassified (4 sources) Insomnia; Translations: [Insomnia, unspecified] 11-10-2024 Episodic Respiratory failure; insufficiency; arrest (adult) (1 source) Dependence on supplemental oxygen; Translations: [Dependence on supplemental oxygen] 12-11-2023 Chronic Schizophrenia and other psychotic disorders (20 sources) Schizophrenia; Translations: [Schizophrenia, unspecified] Onset: 07-18-2020 Chronic Spondylosis; intervertebral disc disorders; other back problems (2 sources) Degeneration of lumbar intervertebral disc; Translations: [Other intervertebral disc degeneration, lumbar region] Chronic Spondylosis; intervertebral disc disorders; other back problems (3 sources) Chronic low back pain; Translations: [Lumbago with sciatica, left side] Episodic Past or Other Problems Problem Classification Problem Date Documented Da te Episodic/Chronic Abdominal pain (20 sources) Abdominal pain; Translations: [Unspecified abdominal pain] Onset: 10-15-2006 Resolved: 12-07-2020 12-07-2020 Episodic Conditions associated with dizziness or vertigo (20 sources) Peripheral vertigo; Translations: [Benign paroxysmal vertigo, bilateral] Onset: 05-23-2023 05-23-2023 Episodic Malaise and fatigue (5 sources) Asthenia; Translations: [Weakness] Onset: 10-04-2023 07-12-2023 Episodic Other aftercare (2 sources) senior living (current) use of insulin; Translations: [Controlled type 2 diabetes mellitus without complication, with long-term current use of insulin (HCC)] Onset: 01-23-2023 Episodic Other aftercare (1 source) Other fci (current) drug therapy; Translations: [Medication management] Onset: 04-16-2025 Episodic Other connective tissue disease (1 source) Fibromyalgia; Translations: [Fibromyalgia] Onset: 11-10-2024 Episodic Other ear and sense organ disorders (1 source) Tinnitus, bilateral; Translations: [Tinnitus of both ears] Onset: 04-16-2025 Episodic Other nervous system disorders (1 source) Paresthesia of skin; Translations: [Paresthesia of bilateral legs] Onset: 04-16-2025 Episodic Other nervous system disorders (1 source) Other disturbances of skin sensation; Translations: [Burning sensation] Onset: 11-10-2024 Episodic Other nutritional; endocrine; and metabolic disorders (1 source) Abnormal weight gain; Translations: [Weight gain] Onset: 04-16-2025 Episodic Residual codes; unclassified (1 source) Insomnia, unspecified; Translations: [Insomnia, unspecified type] Onset: 04-16-2025 Episodic Residual codes; unclassified (1 source) Pain, unspecified; Translations: [Generalized pain] Onset: 11-10-2024 Episodic Unclassified (1 source) Patient encounter status 03-09-2025 Results Test Name Value Interpretation Reference Range Facility [facility] 07-20-2025 CNOV Office Visit (INTMWS ) IRMA STEWART ([id number]) 1960 F Date Time Provider Department 07/20/25 2:20 PM MONIK HACKETT INTMWS During your visit today, we recorded the following information about you: Pulse Blood pressure Weight 68/minute 110/70 116.1 kg Monik Hackett MD 07/20/2025 3:41 PM Signed We discussed your knee pain and recent fall: - You reported falling yesterday and injuring your right knee, which has a history of knee replacement. You also noted pain and swelling in your left knee, which you believe is related to osteoarthritis. - You mentioned wearing two pairs of leggings for compression and using Epsom salt soaks for pain relief. Continue these measures as they seem to provide some benefit. - Please monitor your knee symptoms. If the pain or swelling worsens, or if you experience difficulty walking, let us know. We discussed your bladder symptoms: - You reported bladder pressure, difficulty holding your urine, and occasional leakage. You also noted a weak stream and a sensation of incomplete emptying, but no burning or increased frequency. - I will send a referral to a urogynecologist for further evaluation of your bladder symptoms. - A urine sample was collected today for testing. We will perform a culture if needed, and I will contact you with the results. We discussed your musculoskeletal and chronic pain concerns: - You mentioned ongoing pain related to sciatica and fibromyalgia. You declined gabapentin in the past due to concerns about potential side effects. - You also reported tension in your jaw, likely from teeth grinding, which is contributing to headaches. Please follow up with your dentist regarding your motor block mechanic, 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 We discussed your diabetes management: - You noted that your blood sugar levels have been stable, with fasting levels around 80. Continue monitoring your blood sugar as directed. - Your A1c was last reported around 7.4. Please complete your standing lab orders before your next visit in three months so we can reassess your diabetes management. We discussed your vitamin D levels: - I prescribed vitamin D3 for six months. After completing this prescription, you can purchase vitamin D3 over the counter. Take 2,000-5,000 IU daily. We discussed your preventive care: - You mentioned needing to schedule a Pap test and mammogram. Please contact our office if you need assistance scheduling these appointments. Follow-Up: - Schedule an appointment with the urogynecologist as soon as possible. - Complete your standing lab orders before your next visit in three months. - Let us know if your knee pain, bladder symptoms, or other concerns worsen or do not improve. Monik Hackett MD 07/20/2025 5:11 PM Signed Reason for Visit Follow up HPI Irma Stewart is a 65-year-old female with a history of knee replacement, depression, and fibromyalgia, presenting for evaluation of multiple falls, knee pain, and urinary incontinence. Irma reports multiple falls recently, including one yesterday while running to close windows and turn on the air conditioning. She fell against a wall, which bounced her off near the steps to go downstairs. She landed on her left knee, which had a knee replacement in 2009. She describes the fall as hard and notes that the left knee took the brunt of the impact. She reports shooting pains up her leg from the knee since the fall and was up all night due to the pain. The right knee also hurts but not as severely as the left. She denies having her phone on her at the time of the fall. Irma has a history of knee pain in both knees, with the right knee being loaded with osteoarthritis. She used to receive Synvisc injections in the right knee, which were ineffective, leading to her left knee replacement. The right knee has been swollen and painful for the past couple of years, holding fluid for a while. She wears two pairs of leggings for compression. She has been taking pain medication for fibromyalgia but reports that it is ineffective. She also has a history of sciatica injury from 2009 or 2012, causing constant pain. Irma also reports urinary incontinence, describing a weak bladder with a regular stream but experiencing pressure and numbness. She denies increased frequency or dysuria but notes urgency and difficulty holding urine after taking Lasix. She has a history of urinary infections but states that this feels different. She has not seen a specialist for her bladder issues due to depression and recent family losses. She also reports tension in her jaw from stress, causing teeth grinding and massive headaches. She recently visited the dentist, who noted that she is holding a lot of stress in her jaw. She has a night brace but reports that it falls out at night. Irma has been fighting depre (more content not included)... Normal [facility] Ferritin SerPl-mCncon 2024 Ferritin [Mass/Vol] 247.0 ng/mL High 14.7-205.1 [facility] Comment on above: Order Comment: Speci men Type: BLOOD SPECIMENOrdering Facility: [facility] Address: [address], [place] [address] Performed By: #### 5 1410-8, 9005-4 ####[facility] LABCLIA [id number] [place] [id number] [place] Iron and Iron binding capaci ty panelon 07-20-2025 Iron [Mass/Vol] 70 ug/dL Normal 41-186 [facility] Comment on above: Order Comment: Speci men Type: BLOOD SPECIMENOrdering Facility: [facility] Address: [address] [place] [address] Performed By: #### 5 0190-8, 2275-4 ####[facility] LABCLIA [id number] [place] [address] [place] Iron binding capacity [Mass/Vol] 247 ug/dL Normal 232-386 [facility] Comment on above: Order Comment: Speci men Type: BLOOD SPECIMENOrdering Facility: [facility] Address: [address] [place] [address] Performed By: #### 5 0190-8, 2276-01 ####[facility] LABCLIA [id number] [place] [address] [place] Iron/TIBC [Molar ratio] 28.3 % Normal 15.0-57.0 [facility] Comment on above: Order Comment: Speci men Type: BLOOD SPECIMENOrdering Facility: [facility] Address: [address] [place] [address] Performed By: #### 5 0190-8, 2276-01 ####[facility] LABCLIA [id number] [place] [id number] [place] ALBUMIN/CREATININE RATIO, UR INEon 04-17-2025 Albumin DL <= 20 mg/L (U) [Mass/Vol] mg/dL Normal [facility] Comment on above: Order Comment: Speci men Type: URINE SPECIMENOrdering Facility: [facility] Address: [address] [place] [address] Performed By: #### U ACR ####[facility] LABCLIA [id number] [place] [address] [place] Albumin/Creatinine (U) [Mass ratio] Normal [facility] Comment on above: Order Comment: Speci men Type: URINE SPECIMENOrdering Facility: [facility] Address: [address] [place] [address] Result Comment: Not calculated Adult Male and Female Nephrotic Criteria: <30 mg/g is considered normal to mildly increased 30-300 mg/g is considered moderately increased >300 mg/g is considered severely increased KDIGO. (2013). KDIGO 2012 Clinical Practice Guideline for the Evaluation and Management of Chronic Kidney Disease. Official Journal of the International Society of Nephrology, 3(1), 1-150. Performed By: #### U ACR ####[facility] LABIA [id number] [place] [address] [place] Creatinine (U) [Mass/Vol] 38.8 mg/dL Normal 20.0-300.0 [facility] Comment on above: Order Comment: Speci men Type: URINE SPECIMENOrdering Facility: [facility] Address: [address] [place] [address] Performed By: #### U ACR ####[facility] LABIA [id number] [address] [place] Urinalysis complete panel (U )on 04-17-2025 Bacteria LM.HPF (Urine sed) [#/Area] Negative Normal Negative [facility] Comment on above: Order Comment: Speci men Type: URINE SPECIMENOrdering Facility: [facility] Address: [address] [place] [address] Performed By: #### 2 4356-8 ####[facility] LABIA [id number] [place] [address] [place] Bilirubin Ql (U) Negative Normal Negative [facility] Comment on above: Order Comment: Speci men Type: URINE SPECIMENOrdering Facility: [facility] Address: [address] [place] [address] Performed By: #### 2 4356-8 ####[facility] LABCLIA [id number] [facility] [address] [place] [address] [place] Clarity (Unsp spec) Clear Normal Clear [facility] Comment on above: Order Comment: Speci men Type: URINE SPECIMENOrdering Facility: [facility] Address: [address] [place] [address] Performed By: #### 2 4356-8 ####[facility] LABCLIA [id number] [address], [facility] [place] Color (U) Yellow Normal Yellow [facility] Comment on above: Order Comment: Speci men Type: URINE SPECIMENOrdering Facility: [facility] Address: [address] [place] [address] Performed By: #### 2 4356-8 ####[facility] LABCLIA [id number] [place] [address] [place] Epithelial cells LM.HPF (Urine sed) [#/Area] None Seen Normal [facility] Comment on above: Order Comment: Speci men Type: URINE SPECIMENOrdering Facility: [facility] Address: [address] [place] [address] Performed By: #### 2 4356-8 ####[facility] LABCLIA [id number] [address], [facility]95 [place] Glucose Test strip (U) [Mass/Vol] Negative Normal Negative [facility] Comment on above: Order Comment: Speci men Type: URINE SPECIMENOrdering Facility: [facility] Address: [address] [place], [place] [address] Performed By: #### 2 4356-8 ####[facility] LABCLIA [id number] [place] [id number] [place] Hemoglobin Ql (U) Negative Normal Negative [facility] Comment on above: Order Comment: Speci men Type: URINE SPECIMENOrdering Facility: [facility] Address: [address] [place] [address] Performed By: #### 2 4356-8 ####[facility] LABCLIA [id number] [address], [place] [address] [place] Hyaline casts (Urine sed) [#/Area] 0 /[LPF] Normal 0 /LPF [facility] Comment on above: Order Comment: Speci men Type: URINE SPECIMENOrdering Facility: [facility] Address: [address] [place] [address] Performed By: #### 2 4356-8 ####[facility] LABCLIA [id number] [address], [place] [address] [place] Ketones Ql (U) Negative Normal Negative [facility] Comment on above: Order Comment: Speci men Type: URINE SPECIMENOrdering Facility: [facility] Address: [address] [place] [address] Performed By: #### 2 4356-8 ####[facility] LABCLIA [id number] [address], [facility]95 [place] Leukocyte esterase Test strip Ql (U) Negative Normal Negative [facility] Comment on above: Order Comment: Speci men Type: URINE SPECIMENOrdering Facility: [facility] Address: [address] [place] [address] Performed By: #### 2 4356-8 ####[facility] LABCLIA [id number] [address], [facility]95 [place] Nitrite Ql (U) Negative Normal Negative [facility] Comment on above: Order Comment: Speci men Type: URINE SPECIMENOrdering Facility: [facility] Address: [address] [place] [address] Performed By: #### 2 4356-8 ####[facility] LABCLIA [id number] [address], [facility]95 [place] pH (U) 7.0 [pH] Normal <8.5 [facility] Comment on above: Order Comment: Speci men Type: URINE SPECIMENOrdering Facility: [facility] Address: [address] [place] [address] Performed By: #### 2 4356-8 ####[facility] LABIA [id number] [place] [address] [place] Protein (U) [Mass/Vol] Negative Normal Negative [facility] Comment on above: Order Comment: Speci men Type: URINE SPECIMENOrdering Facility: [facility] Address: [address] [place] [address] Performed By: #### 2 4356-8 ####[facility] LABIA [id number] [place] [address] [place] RBC LM.HPF (Urine sed) [#/Area] 0-2 /HPF Normal 0-2 /HPF [facility] Comment on above: Order Comment: Speci men Type: URINE SPECIMENOrdering Facility: [facility] Address: [address] [place] [address] Performed By: #### 2 4356-8 ####[facility] [id number] [place] [address] [place] Specific gravity (U) [Rel density] 1.010 Normal 1.005-1.030 [facility] Comment on above: Order Comment: Speci men Type: URINE SPECIMENOrdering Facility: [facility] Address: [address] [place] [address] Performed By: #### 2 4356-8 ####[facility] LABIA [id number] [place] [address] [place] Urobilinogen Ql (U) 0.2 EU/dL Normal 0.2-1.0 EU/dL [facility] Comment on above: Order Comment: Speci men Type: URINE SPECIMENOrdering Facility: [facility] Address: [address] [place] [address] Performed By: #### 2 4356-8 ####[facility] LABCLIA [id number] [place] [address] [place] WBC LM.HPF (Urine sed) [#/Area] 0-5 /HPF Normal 0-5 /HPF [facility] Comment on above: Order Comment: Speci men Type: URINE SPECIMENOrdering Facility: [facility] Address: [address] [place] [address] Performed By: #### 2 4356-8 ####[facility] LABCLIA [id number] [place] [address] [place] CBC W Auto Differential pane l (Bld)on 04-16-2025 Basophils (Bld) [#/Vol] 0.06 10*3/uL [facility] Basophils/100 WBC (Bld) 0.9 % [facility] Differential cell count method Nom (Bld) Auto [facility] Eosinophils (Bld) [#/Vol] 0.13 10*3/uL [facility] Eosinophils/100 WBC (Bld) 2 % [facility] Erythrocyte distribution width (RBC) [Ratio] 13 % 11.5 - 15.0 % [facility] Hematocrit (Bld) [Volume fraction] 42.3 % 36.0 - 46.0 % [facility] Hemoglobin (Bld) [Mass/Vol] 13.9 g/dL 11.5 - 15.5 g/dL [facility] Immature granulocytes (Bld) [#/Vol] [facility] Immature granulocytes/100 WBC (Bld) 0.2 % [facility] Lymphocytes (Bld) [#/Vol] 2.71 10*3/uL [facility] Lymphocytes/100 WBC (Bld) 41.7 % [facility] MCH (RBC) [Entitic mass] 30.2 pg 26.0 - 34.0 pg [facility] MCHC (RBC) [Mass/Vol] 32.9 g/dL 30.5 - 36.0 g/dL [facility] MCV (RBC) [Entitic vol] 91.8 fL 80.0 - 100.0 fL [facility] Monocytes (Bld) [#/Vol] 0.5 10*3/uL [facility] Monocytes/100 WBC (Bld) 7.7 % [facility] Neutrophils (Bld) [#/Vol] 3.09 10*3/uL [facility] Neutrophils/100 WBC (Bld) 47.5 % [facility] Nucleated RBC (Bld) [#/Vol] NINF [facility] Nucleated RBC/100 WBC (Bld) [Ratio] 0 % /100 WBC [facility] Platelet mean volume (Bld) [Entitic vol] 10.2 fL 9.0 - 12.7 fL [facility] Platelets (Bld) [#/Vol] 172 10*3/uL [facility] RBC (Bld) [#/Vol] 4.61 10*6/uL 3.90 - 5.2 0 m/uL [facility] WBC (Bld) [#/Vol] 6.5 10*3/uL [facility] Basophils (Bld) [#/Vol] 0.06 10*3/uL Normal <0.11 [facility] Comment on above: Order Comment: Speci men Type: BLOOD SPECIMENOrdering Facility: [facility] Address: [address] [place] [address] Performed By: #### 5 7021-8 ####[facility] LABIA [id number] [place] [address] [place] Basophils/100 WBC (Bld) 0.9 % Normal [facility] Comment on above: Order Comment: Speci men Type: BLOOD SPECIMENOrdering Facility: [facility] Address: [address] [place] [address] Performed By: #### 5 7021-8 ####[facility] LABCLIA [id number] [place] [address] [place] Differential cell count method Nom (Bld) Auto Normal [facility] Comment on above: Order Comment: Speci men Type: BLOOD SPECIMENOrdering Facility: [facility] Address: [address] [place] [address] Performed By: #### 5 7021-8 ####[facility] LABCLIA [id number] [address], [facility]95 [place] Eosinophils (Bld) [#/Vol] 0.13 10*3/uL Normal <0.46 [facility] Comment on above: Order Comment: Speci men Type: BLOOD SPECIMENOrdering Facility: [facility] Address: [address] [place] [address] Performed By: #### 5 7021-8 ####[facility] LABCLIA [id number] [facility] [address], [place] [address] [place] Eosinophils/100 WBC (Bld) 2.0 % Normal [facility] Comment on above: Order Comment: Speci men Type: BLOOD SPECIMENOrdering Facility: [facility] Address: [address] [place] [address] Performed By: #### 5 7021-8 ####[facility] LABCLIA [id number] [address], [place] [address] [place] Erythrocyte distribution width (RBC) [Ratio] 13.0 % Normal 11.5-15.0 [facility] Comment on above: Order Comment: Speci men Type: BLOOD SPECIMENOrdering Facility: [facility] Address: [address] [place] [address] Performed By: #### 5 7021-8 ####[facility] LABCLIA [id number] [facility] [address], [place] [address] [place] Hematocrit (Bld) [Volume fraction] 42.3 % Normal 36.0-46.0 [facility] Comment on above: Order Comment: Speci men Type: BLOOD SPECIMENOrdering Facility: [facility] Address: [address] [place] [address] Performed By: #### 5 7021-8 ####[facility] LABCLIA [id number] [facility] [address], [facility]95 [place] Hemoglobin (Bld) [Mass/Vol] 13.9 g/dL Normal 11.5-15.5 [facility] Comment on above: Order Comment: Speci men Type: BLOOD SPECIMENOrdering Facility: [facility] Address: [address] [place] [address] Performed By: #### 5 7021-8 ####[facility] LABCLIA [id number] [place] [address] [place] Immature granulocytes (Bld) [#/Vol] 10*3/uL Normal <0.10 [facility] Comment on above: Order Comment: Speci men Type: BLOOD SPECIMENOrdering Facility: [facility] Address: [address] [place] [address] Performed By: #### 5 7021-8 ####[facility] LABCLIA [id number] [place] [address] [place] Immature granulocytes/100 WBC (Bld) 0.2 % Normal [facility] Comment on above: Order Comment: Speci men Type: BLOOD SPECIMENOrdering Facility: [facility] Address: [address] [place] [address] Performed By: #### 5 7021-8 ####[facility] LABCLIA [id number] [place] [address] [place] Lymphocytes (Bld) [#/Vol] 2.71 10*3/uL Normal 1.00-4.00 [facility] Comment on above: Order Comment: Speci men Type: BLOOD SPECIMENOrdering Facility: [facility] Address: [address] [place] [address] Performed By: #### 5 7021-8 ####[facility] LABCLIA [id number] [place] [id number] [place] Lymphocytes/100 WBC (Bld) 41.7 % Normal [facility] Comment on above: Order Comment: Speci men Type: BLOOD SPECIMENOrdering Facility: [facility] Address: [address] [place] [address] Performed By: #### 5 7021-8 ####[facility] LABCLIA [id number] [place] [address] [place] MCH (RBC) [Entitic mass] 30.2 pg Normal 26.0-34.0 [facility] Comment on above: Order Comment: Speci men Type: BLOOD SPECIMENOrdering Facility: [facility] Address: [address] [place] [address] Performed By: #### 5 7021-8 ####[facility] LABCLIA [id number] [place] [address] [place] MCHC (RBC) [Mass/Vol] 32.9 g/dL Normal 30.5-36.0 [facility] Comment on above: Order Comment: Speci men Type: BLOOD SPECIMENOrdering Facility: [facility] Address: [address] [place] [address] Performed By: #### 5 7021-8 ####[facility] LABCLIA [id number] [place] [address] [place] MCV (RBC) [Entitic vol] 91.8 fL Normal 80.0-100.0 [facility] Comment on above: Order Comment: Speci men Type: BLOOD SPECIMENOrdering Facility: [facility] Address: [address] [place] [address] Performed By: #### 5 7021-8 ####[facility] LABIA [id number] [place] [address] [place] Monocytes (Bld) [#/Vol] 0.50 10*3/uL Normal <0.87 [facility] Comment on above: Order Comment: Speci men Type: BLOOD SPECIMENOrdering Facility: [facility] Address: [address] [place] [address] Performed By: #### 5 7021-8 ####[facility] LABCLIA [id number] [place] [address] [place] Monocytes/100 WBC (Bld) 7.7 % Normal [facility] Comment on above: Order Comment: Speci men Type: BLOOD SPECIMENOrdering Facility: [facility] Address: [address] [place] [address] Performed By: #### 5 7021-8 ####[facility] LABCLIA [id number] [address] [address] [place] Neutrophils (Bld) [#/Vol] 3.09 10*3/uL Normal 1.45-7.50 [facility] Comment on above: Order Comment: Speci men Type: BLOOD SPECIMENOrdering Facility: [facility] Address: [address] [place] [address] Performed By: #### 5 7021-8 ####[facility] LABCLIA [id number] [place] [address] [place] Neutrophils/100 WBC (Bld) 47.5 % Normal [facility] Comment on above: Order Comment: Speci men Type: BLOOD SPECIMENOrdering Facility: [facility] Address: [address] [place] [address] Performed By: #### 5 7021-8 ####[facility] LABCLIA [id number] [place] [address] [place] Nucleated RBC (Bld) [#/Vol] 10*3/uL Normal <0.01 [facility] Comment on above: Order Comment: Speci men Type: BLOOD SPECIMENOrdering Facility: [facility] Address: [address] [place] [address] Performed By: #### 5 7021-8 ####[facility] LABCLIA [id number] [place] [id number] [place] Nucleated RBC/100 WBC (Bld) [Ratio] 0.0 /100 WBC Normal [facility] Comment on above: Order Comment: Speci men Type: BLOOD SPECIMENOrdering Facility: [facility] Address: [address] [place] [address] Performed By: #### 5 7021-8 ####[facility] LABCLIA [id number] [address] [address] [place] Platelet mean volume (Bld) [Entitic vol] 10.2 fL Normal 9.0-12.7 [facility] Comment on above: Order Comment: Speci men Type: BLOOD SPECIMENOrdering Facility: [facility] Address: [address] [place] [address] Performed By: #### 5 7021-8 ####[facility] LABIA [id number] [address], [facility]95 [place] Platelets (Bld) [#/Vol] 172 10*3/uL Normal 150-400 [facility] Comment on above: Order Comment: Speci men Type: BLOOD SPECIMENOrdering Facility: [facility] Address: [address] [place] [address] Performed By: #### 5 7021-8 ####[facility] LABIA [id number] [place] [address] [place] RBC (Bld) [#/Vol] 4.61 10*6/uL Normal 3.90-5.20 [facility] Comment on above: Order Comment: Speci men Type: BLOOD SPECIMENOrdering Facility: [facility] Address: [address] [place] [address] Performed By: #### 5 7021-8 ####[facility] LABIA [id number] [place] [id number] [place] WBC (Bld) [#/Vol] 6.50 10*3/uL Normal 3.70-11.00 [facility] Comment on above: Order Comment: Speci men Type: BLOOD SPECIMENOrdering Facility: [facility] Address: [address] [place] [address] Performed By: #### 5 7021-8 ####[facility] LABIA [id number] [place] [id number] [place] CNOVon 04-16-2025 CNOV Office Visit (INTMWS ) IRMA STEWART ([id number]) 1960 F Date Time Provider Department 04/16/25 10:00 AM LALA HARRISON INTMWS During your visit today, we recorded the following information about you: Pulse Respiration Blood pressure Weight 76/minute 16/minute 144/80 117 kg Lala Harrison APRN.[facility] 04/16/2025 12:21 PM Signed CC: Patient presents with: Recheck: Follow up multiple concerns HPI Irma Stewart is a 65 year old female who presents today for multiple concerns. Has had these concerns ongoing for quite a while and has bee worked up previously. With her mental health and difficulty staying on topic, getting full history difficult to obtain. Recording using [employer] software for draft documentation of the visit was discussed with the patient/authorized patient relations representative; all questions welcomed and answered. Patient/authorized patient relations representative agreed to proceed Paresthesias: - Irma reports buzzing and tingling sensations in the body, legs, and ears x4 years, worsening recently. - Believes symptoms may be related to a pinched nerve or high cortisol levels. - Denies recent illness, injury, fever, chills, cough, or wheezing. Insomnia: - Severe insomnia, with minimal sleep over the past few nights. - Current medications reportedly ineffective for sleep. States psychiatry keeps trying to increase her seroquel but she is unable to breathe if she takes more then what she is taking now. - Expresses fear of not waking up due to medication use. Dizziness: - Persistent dizziness x2 years. - Underwent hearing tests and vertigo therapy with no improvement. - did see ENT a few years ago without causation found Weight Gain: - Irma reports feeling bloated and experiencing weight gain with new stretch long. States all her weight is in her belly which makes her think it is her cortisol level. - Decreased appetite, eating minimally due to stress. DM: - Blood sugar levels described as all over the place, sometimes reaching 200 mg/dL despite not eating. - Believes diabetes may be stress-induced; family history of diabetes. - Has an upcoming appointment with Dr. Hackett to discuss this further Chronic Pain: - Irma reports a pinched nerve in the right back since - lockdown. - PMHx of degenerative disc disease and sciatica, with significant pain and limited mobility in the knee. - Pain has been ongoing x5 years, worsening over the past 2 years, with the last 8 months described as hell. Psychiatric Concerns: - Irma reports feeling unable to relax, with tension in the neck and a sense of being in fight or flight mode. - Describes feeling crazy and experiencing visual hallucinations. Saw a jelly fish on the wall as reported by nursing. States her psychiatrist is aware of all of this. - Reports easy bruising and delayed healing of cuts. - Current psychiatric care with [facility]; negative experience reported - Taking Depakote and Seroquel; recent issues with medication management and side effects. - Scheduled to see a new psychiatrist at [facility] in May. Chronic Stress: - Irma reports significant chronic stress due to multiple family losses, including the recent of her stepfather. - Describes a history of being stalked by her brother, leading to legal issues and ongoing stress. - Reports feeling isolated, with no friends and limited family support. - Expresses frustration with being unable to see her grandchildren and feeling misunderstood by her family. 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 KATHY (generalized anxiety disorder) GERD (gastroesophageal reflux disease) Hemorrhage of gastrointestinal tract, unspecified HTN (hypertension) Hypercholesteremia IBS (irritable bowel syndrome) Internal hemorrhoids without mention of complication Intertrigo Irritable bowel syndrome Lumbar radiculopathy Migraine without aura Morbid obesity (HCC) Myalgia and myositis, unspecified Obesity, unspecified OCD (obsessive compulsive disorder) Onychomycosis JAYLYN (obstructive sleep apnea) Osteoarthrosis Other acute reactions to stress Other anxiety states Panic disorder Panic disorder without agoraphobia Pedal edema PMH - PAST MEDICA (more content not included)... Normal [facility] Comprehensive metabolic 2000 panelon 04-16-2025 Albumin [Mass/Vol] 4.3 g/dL Normal 3.9-4.9 [facility] Comment on above: Order Comment: Speci men Type: BLOOD SPECIMENOrdering Facility: [facility] Address: [address] [place] [address] Performed By: #### 2 8, 2132-06 ####[facility] LABCLIA [id number] [place] [address] [place] ALP [Catalytic activity/Vol] 73 U/L Normal 34-123 [facility] Comment on above: Order Comment: Speci men Type: BLOOD SPECIMENOrdering Facility: [facility] Address: [address] [place] [address] Performed By: #### 2 4323-05, 2132-06 ####[facility] LABCLIA [id number] [address] [place] ALT [Catalytic activity/Vol] 13 U/L Normal 7-38 [facility] Comment on above: Order Comment: Speci men Type: BLOOD SPECIMENOrdering Facility: [facility] Address: [address] [place] [address] Performed By: #### 2 4323-05, 2132-06 ####[facility] LABCLIA [id number] [place] [id number] [place] Anion gap [Moles/Vol] 16 mmol/L High 8-15 [facility] Comment on above: Order Comment: Speci men Type: BLOOD SPECIMENOrdering Facility: [facility] Address: [address] [place] [address] Performed By: #### 2 4323-05, 2132-06 ####[facility] LABCLIA [id number] [facility] [address] [place] [address] [place] AST [Catalytic activity/Vol] 13 U/L Normal 13-35 [facility] Comment on above: Order Comment: Speci men Type: BLOOD SPECIMENOrdering Facility: [facility] Address: [address] [place] [address] Performed By: #### 2 4323-05, 2132-06 ####[facility] LABCLIA [id number] [facility] [address] [place] [address] [place] Bilirubin [Mass/Vol] 0.2 mg/dL Normal 0.2-1.3 [facility] Comment on above: Order Comment: Speci men Type: BLOOD SPECIMENOrdering Facility: [facility] Address: [address] [place] [address] Performed By: #### 2 4323-05, 2132-06 ####[facility] LABCLIA [id number] [address] [place] [address] [place] Calcium [Mass/Vol] 9.1 mg/dL Normal 8.5-10.2 [facility] Comment on above: Order Comment: Speci men Type: BLOOD SPECIMENOrdering Facility: [facility] Address: [address] [place], [place] [address] Performed By: #### 2 4323-05, 2132-06 ####[facility] LABCLIA [id number] [facility] [address] [place] [address] [place] Chloride [Moles/Vol] 100 mmol/L Normal 98-107 [facility] Comment on above: Order Comment: Speci men Type: BLOOD SPECIMENOrdering Facility: [facility] Address: [address] [place], [place] [address] Performed By: #### 2 43201-02, 2132-06 ####[facility] LABCLIA [id number] [facility] [address] [place] [address] [place] CO2 [Moles/Vol] 27 mmol/L Normal 22-30 [facility] Comment on above: Order Comment: Speci men Type: BLOOD SPECIMENOrdering Facility: [facility] Address: [address] [place] [address] Performed By: #### 2 43201-02, 2132-06 ####[facility] LABCLIA [id number] [place] [id number] [place] Creatinine [Mass/Vol] 0.72 mg/dL Normal 0.58-0.96 [facility] Comment on above: Order Comment: Speci men Type: BLOOD SPECIMENOrdering Facility: [facility] Address: [address] [place] [address] Performed By: #### 2 43201-02, 2132-06 ####[facility] LABCLIA [id number] [address] [place] Creatinine and Glomerular filtration rate.predicted panel (S/P/Bld) 94 mL/min/1.73m??? Normal >=60 [facility] Comment on above: Order Comment: Speci men Type: BLOOD SPECIMENOrdering Facility: [facility] Address: [address] [place] [address] Result Comment: Arlette mated Glomerular Filtration Rate (eGFR) is calculated using the 2020 CKD-EPI creatinine equation. This equation utilizes serum creatinine, sex, and age as parameters. The creatinine assay has traceable calibration to isotope dilution-mass spectrometry. Refer to KDIGO guidelines for clinical interpretation. In patients with unstable renal function, e.g. those with acute kidney injury, the eGFR may not accurately reflect actual GFR. Performed By: #### 2 43201-02, 2132-06 ####[facility] LABCLIA [id number] [place] [id number] [place] Glucose [Mass/Vol] 136 mg/dL High 74-99 [facility] Comment on above: Order Comment: Speci men Type: BLOOD SPECIMENOrdering Facility: [facility] Address: [address] [place] [address] Result Comment: The [place] Diabetes Association (ADA) provides guidance for cutoff values for fasting glucose and random glucose. The ADA defines fasting as no caloric intake for at least 8 hours. Fasting plasma glucose results between 100 to 125 mg/dL indicate increased risk for diabetes (prediabetes). Fasting plasma glucose results greater than or equal to 126 mg/dL meet the criteria for diagnosis of diabetes. In the absence of unequivocal hyperglycemia, results should be confirmed by repeat testing. In a patient with classic symptoms of hyperglycemia or hyperglycemic crisis, random plasma glucose results greater than or equal to 200 mg/dL meet the criteria for diagnosis of diabetes. Reference: Standards of Medical Care in Diabetes 2016, [place] Diabetes Association. Diabetes Care. 2016.39(Suppl 1). Performed By: #### 2 4323-05, 2132-06 ####[facility] LABIA [id number] [place] [address] [place] Potassium [Moles/Vol] 4.1 mmol/L Normal 3.7-5.1 [facility] Comment on above: Order Comment: Speci men Type: BLOOD SPECIMENOrdering Facility: [facility] Address: [address] [place] [address] Performed By: #### 2 4323-05, 2132-06 ####[facility] [id number] [place] [address] [place] Protein [Mass/Vol] 6.7 g/dL Normal 6.3-8.0 [facility] Comment on above: Order Comment: Speci men Type: BLOOD SPECIMENOrdering Facility: [facility] Address: [address] [id number] Performed By: #### 2 4323-05, 2132-06 ####[facility] LABIA [id number] [place] [address] [place] Sodium [Moles/Vol] 143 mmol/L Normal 136-144 [facility] Comment on above: Order Comment: Speci men Type: BLOOD SPECIMENOrdering Facility: [facility] Address: [address] [place] [address] Performed By: #### 2 4323-8, 2132-06 ####[facility] LABCLIA [id number] [address] [address] [place] Urea nitrogen [Mass/Vol] 14 mg/dL Normal 7-21 [facility] Comment on above: Order Comment: Speci men Type: BLOOD SPECIMENOrdering Facility: [facility] Address: [address] [place] [address] Performed By: #### 2 4323-8, 2132-06 ####[facility] LABCLIA [id number] [place] [id number] [place] Cortfrancisco javier Moralesl-mCncon 04-16-20 25 Cortisol [Mass/Vol] 16.4 ug/dL Normal 4.8-19.5 [facility] Comment on above: Order Comment: Speci men Type: BLOOD SPECIMENOrdering Facility: [facility] Address: [address] [place] [address] Result Comment: Prov ided reference range is from 6-10 AM sample collection time. Cortisol Reference Range: 6-10 AM = 4.8-19.5 ug/dL, 4-8 PM = 2.5-11.9 ug/dL Performed By: #### 3 016-3, 3051-0, 3024-7, 2143-6 ####[facility] LABCLIA [id number] [place] [id number] [facility] [place] HbA1c (Bld)on 04-16-2025 Average glucose Estimated from glycated hemoglobin (Bld) [Mass/Vol] 166 mg/dL Normal [facility] Comment on above: Order Comment: Speci men Type: BLOOD SPECIMENOrdering Facility: [facility] Address: [address] [place] [address] Result Comment: eAG: (Estimated average glucose) is a calculated value from HgbA1c and is patient relations representative of the average blood glucose level in the last 2-3 month period. Performed By: #### 5 5454-3 ####[facility] LABCLIA [id number] [place] [id number] [place] HbA1c (Bld) [Mass fraction] 7.4 % High 4.3-5.6 [facility] Comment on above: Order Comment: Speci men Type: BLOOD SPECIMENOrdering Facility: [facility] Address: [address] [place] [address] Result Comment: [place] Diabetes Association guidelines indicate that patients with HgbA1c in the range 5.7-6.4% are at increased risk for development of diabetes, and intervention by lifestyle modification may be beneficial. HgbA1c greater or equal to 6.5% is considered diagnostic of diabetes. Performed By: #### 5 5454-3 ####[facility] LABIA [id number] [place] [address] [place] T3Free SerPl-mCncon 04-16-20 25 Free T3 [Mass/Vol] 3.3 pg/mL Normal 2.3-4.1 [facility] Comment on above: Order Comment: Speci men Type: BLOOD SPECIMENOrdering Facility: [facility] Address: [address] [place] [address] Performed By: #### 3 016-3, 3051-0, 3023-7, 6 ####[facility] [id number] [place] [address] [place] T4 Free SerPl-mCncon 025 Free T4 [Mass/Vol] 1.1 ng/dL Normal 0.9-1.7 [facility] Comment on above: Order Comment: Speci men Type: BLOOD SPECIMENOrdering Facility: [facility] Address: [address] [place] [address] Performed By: #### 3 016-3, 3051-0, 302-7, 6 ####[facility] [id number] [place] [address] [place] TSH SerPl-aCncon 04-16-2025 TSH Qn 4.360 m[IU]/L High 0.270-4.200 [facility] Comment on above: Order Comment: Speci tino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 management of dyslipidemia: executive summary, Atherosclerosis. 2014: 232(2):410-413. Performed By: #### 5 0190-8, 43701-8, 6-3, 2275-4 ####[facility] LABCLIA [id number] [place] [address] [place] Cholesterol in VLDL [Mass/Vol] 39 mg/dL High <30 [facility] Comment on above: Order Comment: Theodoralenny jiménez Type: BLOOD SPECIMENOrdering Facility: [facility] Address: [address] [place] [address] Performed By: #### 5 0190-8, 75103-1, 3015-3, 2275- ####[facility] LABCLIA [id number] [place] [address] [place] Cholesterol non HDL [Mass/Vol] 133 mg/dL High <130 [facility] Comment on above: Order Comment: Corky jiménez Type: BLOOD SPECIMENOrdering Facility: [facility] Address: [address] [place] [address] Result Comment: <130 mg/dL, Optimal 130-159 mg/dL, Near optimal/above optimal 160-189 mg/dL, Borderline high 190-219 mg/dL, High >219 mg/dL, Very high Secondary prevention optimal non HDL Cholesterol levels are recommended to be <100 mg/dL Performed By: #### 5 0190-8, 72986-5, 3016-3, 6-4 ####[facility] LABCLIA [id number] [address] [place] Cholesterol.total/C holesterol in HDL [Mass ratio] 3.33 {ratio} Normal <5.10 [facility] Comment on above: Order Comment: Speci men Type: BLOOD SPECIMENOrdering Facility: [facility] Address: [address] [place] [address] Performed By: #### 5 0190-8, 02926-5, 3015-3, 2275-4 ####[facility] LABCLIA [id number] [place] [address] [place] FASTING TIME 12 hrs Normal [facility] Comment on above: Order Comment: Speci men Type: BLOOD SPECIMENOrdering Facility: [facility] Address: [address] [place] [address] Performed By: #### 5 0190-8, 81423-0, 3015-3, 2276-01 ####[facility] LABIA [id number] [place] [address] [place] Triglyceride [Mass/Vol] 196 mg/dL High <150 [facility] Comment on above: Order Comment: Speci men Type: BLOOD SPECIMENOrdering Facility: [facility] Address: [address] [place] [address] Result Comment: <150 mg/dL, Normal 150-199 mg/dL, Borderline high 200-499 mg/dL, High >499 mg/dL, Very high Performed By: #### 5 0190-8, 49576-9, 3015-3, 2276-01 ####[facility] LABIA [id number] [place] [address] [place] TSH SerPl-aCncon 11-10-2024 TSH Qn 2.800 m[IU]/L Normal 0.270-4.200 [facility] Comment on above: Order Comment: Speci men Type: BLOOD SPECIMENOrdering Facility: [facility] Address: [address] [place] [address] Performed By: #### 5 0190-8, 29797-6, 3015-3, 2275-4 ####[facility] LABCLIA [id number] [place] [address] [place] Vit B12 SerPl-ncon 14-2 025 Cobalamin (Vitamin B12) [Mass/Vol] 1857 pg/mL High 232-1245 [facility] Comment on above: Order Comment: Speci men Type: BLOOD SPECIMENOrdering Facility: [facility] Address: [address] [place] [address] Performed By: #### 2 132-9, 36168-0 ####[facility] LABIA [id number] [place] [address] [place] NITRIC OXIDE, EXHALEDon 07-0 [facility] CBC W Auto Differential pane l (Bld)on 02-27-2024 Basophils (Bld) [#/Vol] 0.03 10*3/uL [facility] Basophils/100 WBC (Bld) 0.6 % [facility] Differential cell count method Nom (Bld) Auto [facility] Eosinophils (Bld) [#/Vol] 0.07 10*3/uL [facility] Eosinophils/100 WBC (Bld) 1.4 % [facility] Erythrocyte distribution width (RBC) [Ratio] 12.3 % 11.5 - 15.0 % [facility] Hematocrit (Bld) [Volume fraction] 42.2 % 36.0 - 46.0 % [facility] Hemoglobin (Bld) [Mass/Vol] 13.7 g/dL 11.5 - 15.5 g/dL [facility] Immature granulocytes (Bld) [#/Vol] [facility] Immature granulocytes/100 WBC (Bld) 0.2 % [facility] Lymphocytes (Bld) [#/Vol] 1.84 10*3/uL [facility] Lymphocytes/100 WBC (Bld) 37.2 % [facility] MCH (RBC) [Entitic mass] 31.1 pg 26.0 - 34.0 pg [facility] MCHC (RBC) [Mass/Vol] 32.5 g/dL 30.5 - 36.0 g/dL [facility] MCV (RBC) [Entitic vol] 95.9 fL 80.0 - 100.0 fL [facility] Monocytes (Bld) [#/Vol] 0.36 10*3/uL [facility] Monocytes/100 WBC (Bld) 7.3 % [facility] Neutrophils (Bld) [#/Vol] 2.64 10*3/uL [facility] Neutrophils/100 WBC (Bld) 53.3 % [facility] Nucleated RBC (Bld) [#/Vol] NINF [facility] Nucleated RBC/100 WBC (Bld) [Ratio] 0.0 % /100 WBC [facility] Platelet mean volume (Bld) [Entitic vol] 10.4 fL 9.0 - 12.7 fL [facility] Platelets (Bld) [#/Vol] 163 10*3/uL [facility] RBC (Bld) [#/Vol] 4.40 10*6/uL 3.90 - 5.2 0 m/uL [facility] WBC (Bld) [#/Vol] 4.95 10*3/uL [facility] Comprehensive metabolic 2000 panelon 02-27-2024 Albumin [Mass/Vol] 4.1 g/dL 3.9 - 4.9 g/dL [facility] ALP [Catalytic activity/Vol] 75 U/L 34 - 123 U/L [facility] ALT [Catalytic activity/Vol] 14 U/L 7 - 38 U/L [facility] Anion gap [Moles/Vol] 11 mmol/L 9 - 18 mmol/L [facility] AST [Catalytic activity/Vol] 18 U/L 13 - 35 U/L [facility] Bilirubin [Mass/Vol] 0.4 mg/dL 0.2 - 1.3 mg/dL [facility] Calcium [Mass/Vol] 9.0 mg/dL 8.5 - 10. 2 mg/dL [facility] Chloride [Moles/Vol] 100 mmol/L 97 - 105 mmol/L [facility] CO2 [Moles/Vol] 29 mmol/L 22 - 30 mmol/L [facility] Creatinine [Mass/Vol] 0.78 mg/dL 0.58 - 0.96 mg/dL [facility] GFR/1.73 sq M.predicted among non-blacks MDRD (S/P/Bld) [Vol rate/Area] 86 mL/min/{1.73_m2} - PINF [facility] Comment on above: Estimated Glomerular Filtration Rate (eGFR) is calculated using the 2020 CKD-EPI creatinine equation. This equation utilizes serum creatinine, sex, and age as parameters. The creatinine assay has traceable calibration to isotope dilution-mass spectrometry. Refer to KDIGO guidelines for clinical interpretation. In patients with unstable renal function, e.g. those with acute kidney injury, the eGFR may not accurately reflect actual GFR. Glucose [Mass/Vol] 173 mg/dL High 74 - 99 mg/dL [facility] Comment on above: The [place] Diabete s Association (ADA) provides guidance for cutoff values for fasting glucose and random glucose. The ADA defines fasting as no caloric intake for at least 8 hours. Fasting plasma glucose results between 100 to 125 mg/dL indicate increased risk for diabetes (prediabetes). Fasting plasma glucose results greater than or equal to 126 mg/dL meet the criteria for diagnosis of diabetes. In the absence of unequivocal hyperglycemia, results should be confirmed by repeat testing. In a patient with classic symptoms of hyperglycemia or hyperglycemic crisis, random plasma glucose results greater than or equal to 200 mg/dL meet the criteria for diagnosis of diabetes. Reference: Standards of Medical Care in Diabetes 2016, [place] Diabetes Association. Diabetes Care. 2016.39(Suppl 1). Interpretation and review of laboratory results Abnormal [facility] Potassium [Moles/Vol] 4.5 mmol/L 3.7 - 5.1 mmol/L [facility] Protein [Mass/Vol] 6.6 g/dL 6.3 - 8.0 g/dL [facility] Sodium [Moles/Vol] 140 mmol/L 136 - 144 mmol/L [facility] Urea nitrogen [Mass/Vol] 15 mg/dL 7 - 21 mg/dL [facility] THYROID STIMULATING HORMONEo n 02-27-2024 TSH Qn 1.660 m[IU]/L [facility] TSH Qnon 02-27-2024 Interpretation and review of laboratory results Normal [facility] OXIMETRY WITH AMBULATIONon 0 12-06-2023 [facility] XR Finger - right AP and Lat eral and obliqueon 11-25-2023 IMPRESSION: The osseous structures are intact. There are no marginal erosions. Mild narrowing of the first CMC joint with small osteophytes. No other significant abnormality. 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 TECHNIQUE: XR DIGIT 3V FRONTAL/LAT/OBL RT Laterality: RIGHT Number of different views (projections): 3 M: XB_1 COMPARISON: None RESULT/ DIVISION OF RADIOLOGY Provider, 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 TECHNIQUE: XR DIGIT 3V FRONTAL/LAT/OBL RT Laterality: RIGHT Number of different views (projections): 3 M: XB_1 COMPARISON: None RESULT/ IMPRESSION IMPRESSION: The osseous structures are intact. There are no marginal erosions. Mild narrowing of the first CMC joint with small osteophytes. No other significant abnormality. [employer] Coach: [facility] Transcribe Date/Time: Nov 25 2023 7:13P Dictated by : BRANDON BECERRA MD This examination was interpreted and the report reviewed and electronically signed by: BRANDON BECERRA MD on Nov 25 2023 7:14PM [facility] Radiology Study observation (narrative) [facility] XR Finger - right AP and Lat eral and obliqueOrdered By: [facility] Provider on 11-25-2023 [facility] XR Chest PA and Lateralon IMPRESSION: No acute radiographic abnormality. [employer] Coach: JADON Transcribe Date/Time: Nov 04 2023 3:01P Dictated by : JORGE SCHWARTZ MD This examination was interpreted and the report reviewed and electronically signed by: JORGE SCHWARTZ MD on Nov 04 2023 3:02PM [facility] DIVISION OF RADIOLOGY * * *Final Report* * * DATE OF EXAM: Nov 04 2023 2:37PM WOX 5291 - XR CHEST 2V FRONTAL/LAT / PROCEDURE REASON: multiple diagnoses * * * * Physician Interpretation * * * * EXAMINATION: CHEST RADIOGRAPH (2 VIEW FRONTAL & LATERAL) CLINICAL HISTORY: Acute cough Shortness of breath MQ: XC2_6 EXAM DATE/TIME: 11/04/2023 2:37 PM COMPARISON: Chest x-ray on 07/14/2020 RESULT: Lines, tubes, and devices: None. Lungs and pleura: No consolidation. No lung mass. No pleural effusion. No pneumothorax. Cardiomediastinal silhouette: Normal cardiomediastinal silhouette. Bones and soft tissues: Unremarkable. DIVISION OF RADIOLOGY Provider, [facility] - 11/04/2023 * * *Final Report* * * DATE OF EXAM: Nov 04 2023 2:37PM WOX 5291 - XR CHEST 2V FRONTAL/LAT / PROCEDURE REASON: multiple diagnoses * * * * Physician Interpretation * * * * EXAMINATION: CHEST RADIOGRAPH (2 VIEW FRONTAL & LATERAL) CLINICAL HISTORY: Acute cough Shortness of breath MQ: XC2_6 EXAM DATE/TIME: 11/04/2023 2:37 PM COMPARISON: Chest x-ray on 07/14/2020 RESULT: Lines, tubes, and devices: None. Lungs and pleura: No consolidation. No lung mass. No pleural effusion. No pneumothorax. Cardiomediastinal silhouette: Normal cardiomediastinal silhouette. Bones and soft tissues: Unremarkable. IMPRESSION IMPRESSION: No acute radiographic abnormality. [employer] Coach: JADON Transcribe Date/Time: Nov 04 2023 3:01P Dictated by : JORGE SCHWARTZ MD This examination was interpreted and the report reviewed and electronically signed by: JORGE SCHWARTZ MD on Nov 04 2023 3:02PM EST [facility] Radiology Study observation (narrative) [facility] XR Chest PA and LateralOrder ed By: [facility] Provider on 11-04-2023 [facility] Abdomen/Pelvis W IV Cont ONL Yon 09-30-2023 Abdomen/Pelvis W IV Cont ONLY [facility] Imaging Services [address] [place] [address] Abdomen/Pelvis W IV Cont ONLY MR#: [id number] Acct: [id number] Name: IRMA STEWART Rep #: [id number] : 1960 F 63 From: Tye Burnette PCP: Dr. Monik Hackett MD Status: REG ER Study: Abdomen/Pelvis W IV Cont ONLY Date of Exam: Exam# [id number] Ordering Dr: Josh Morin MD [id number] INDICATION: Diarrhea EXAMINATION: CT ABDOMEN AND PELVIS with CONTRAST - CT Abdomen And Pelvis W/ Contrast Injection TECHNIQUE: Multiple axial images were obtained of the abdomen and pelvis following administration of IV contrast. Planar reconstructions obtained. A radiation dose optimization technique was used for this scan. RADIATION DOSAGE (If Supplied By Facility): CTDIvol = ( 17.02 ) mGy, DLP = ( 1346.69 ) mGycm IV Contrast dosage and agent: 100 mL Isovue-370 Oral contrast: None. COMPARISON: Previous examination of 09/22/2012 is not currently available. FINDINGS: LOWER THORAX: Lungs are clear. Cardiac contour is normal, no pericardial effusion. No coronary vascular calcifications noted. HEPATOBILIARY: Liver: The liver is homogeneous and shows no evidence of focal lesion. Mild diffuse hepatic steatosis. Gallbladder: The gallbladder is unremarkable. Pancreas: Pancreas is normal size configuration and density. No mass is noted. Spleen: The spleen is homogeneous and normal in size. . BOWEL: Stomach: The stomach is normal in size configuration, no evidence of focal masses, abnormal calcifications. No hiatal hernia noted. Bowel: Small and large have normal configuration, no masses or bowel obstruction noted. Appendix: The visualized appendix has normal appearance.: GENITOURINARY: Adrenals: Both adrenal glands are normal in size. Kidneys: Kidneys appear symmetric in size. No calcifications are seen in the collecting system. There is no hydronephrosis or surrounding fluid. Bladder: Normal Pelvic organs: The visualized pelvic organs are normal in size and configuration. No masses or adenopathy noted. RETROPERITONEUM: Diffuse aortic calcifications without aneurysmal dilatation. LYMPH NODES: No evidence of retroperitoneal or para-aortic masses fluid collections or adenopathy. PERITONEAL CAVITY: No ascites noted ANTERIOR ABDOMINAL WALL: Normal, no hernia identified. BONES AND SOFT TISSUES: The skeleton shows no evidence for fractures or destructive lesions. OTHER: None CT/Abdomen/Pelvis W IV Cont ONLY IMPRESSION: 1. No masses bowel obstruction abscess free fluid or free air. No evidence diverticulitis or appendicitis. 2. No evidence of cholelithiasis or ductal dilatation. 3. No evidence of renal calcification or obstructive uropathy. 4. Mild diffuse hepatic steatosis. Electronically Signed: Tye Vance MD at 20:03 EST , CC: Dr. Josh Morin MD; Dr. Monik Hackett MD [employer]: Signed Normal [facility] CBC W/Diff, Automatedon 12-0 Absolute Lymph 1.40 X10 3/uL Normal 0.83-4.51 [facility] Comment on above: Performed By: #### L 500.4050, L100.0100 #### [facility] [address] [place], [address] Absolute Neut 4.2 X10 3/uL Normal 2.0-7.7 [facility] Comment on above: Performed By: #### L 500.4050, L100.0100 #### [facility] [address] [place], [address] Basophils/100 WBC (Bld) 0.5 % Normal 0-1 [facility] Comment on above: Performed By: #### L 500.4050, L100.0100 #### [facility] [address] [place], [address] Eosinophils/100 WBC (Bld) 0.0 % Normal 0-5 [facility] Comment on above: Performed By: #### L 500.4050, L100.0100 #### [facility] [address] [place], [address] Erythrocyte distribution width (RBC) [Ratio] 12.3 % Normal 11.6-14.6 [facility] Comment on above: Performed By: #### L 500.4050, L100.0100 #### [facility] [address] [place], [address] Hematocrit (Bld) [Volume fraction] 40.6 % Normal 37-47 [facility] Comment on above: Performed By: #### L 500.4050, L100.0100 #### [facility] [address] [place], [address] Hemoglobin (Bld) [Mass/Vol] 13.0 g/dL Normal 12.0-15.0 [facility] Comment on above: Performed By: #### L 500.4050, L100.0100 #### [facility] [address] [place], [address] IG% 0.300 Normal 0.0-0.9 [facility] Comment on above: Result Comment: IG% - Immature Granulocytes (promyelocytes, myelocytes and metamyelocytes) > 1% indicates that a LEFT SHIFT is Present. Performed By: #### L 500.4050, L100.0100 #### [facility] [address] [place], [address] Lymphocytes/100 WBC (Bld) 23.9 % Normal 19-41 [facility] Comment on above: Performed By: #### L 500.4050, L100.0100 #### [facility] [address] [place], [address] MCH (RBC) [Entitic mass] 30.6 pg Normal 27.0-32.0 [facility] Comment on above: Performed By: #### L 500.4050, L100.0100 #### [facility] [address] [place], [address] MCHC (RBC) [Mass/Vol] 32.0 g/dL Normal 32-36 [facility] Comment on above: Performed By: #### L 500.4050, L100.0100 #### [facility] [address] [place], [address] MCV (RBC) [Entitic vol] 95.5 fL Normal 81-99 [facility] Comment on above: Performed By: #### L 500.4050, L100.0100 #### [facility] [address] [place], [address] Monocytes/100 WBC (Bld) 4.3 % Normal 0-10 [facility] Comment on above: Performed By: #### L 500.4050, L100.0100 #### [facility] [address] [place], [address] Neutrophils/100 WBC (Bld) 71.0 % High 47-70 [facility] Comment on above: Performed By: #### L 500.4050, L100.0100 #### [facility] [address] [place], [address] Nucleated RBC (Bld) [#/Vol] 0 10*3/uL Normal 0-5 [facility] Comment on above: Performed By: #### L 500.4050, L100.0100 #### [facility] [address] [place], [address] Platelet mean volume (Bld) [Entitic vol] 10.8 fL Normal 6.2-12.0 [facility] Comment on above: Performed By: #### L 500.4050, L100.0100 #### [facility] [address] [place], [address] Platelets (Bld) [#/Vol] 129 10*3/uL Low 150-450 [facility] Comment on above: Performed By: #### L 500.4050, L100.0100 #### [facility] [address] [place], [address] RBC (Bld) [#/Vol] 4.25 10*6/uL Normal 4.2-5.4 [facility] Comment on above: Performed By: #### L 500.4050, L100.0100 #### [facility] [address] [place], [address] RDW SD 43.3 fl Normal 35.1-43.9 [facility] Comment on above: Performed By: #### L 500.4050, L100.0100 #### [facility] [address] [place], [address] WBC (Bld) [#/Vol] 5.9 10*3/uL Normal 4.4-11.0 [facility] Comment on above: Performed By: #### L 500.4050, L100.0100 #### [facility] [address] [place], [address] Comprehensive Metabolic Prof ilon 09-30-2023 Albumin [Mass/Vol] 3.3 g/dL Normal 3.2-5.0 [facility] Comment on above: Performed By: #### L 500.4050, L100.0100 #### [facility] [address] [place], [address] Albumin/Globulin [Mass ratio] 1.0 {ratio} Normal 0.9-2.4 [facility] Comment on above: Performed By: #### L 500.4050, L100.0100 #### [facility] [address] [place], [address] ALK P 73 U/L Normal 45-117 [facility] Comment on above: Performed By: #### L 500.4050, L100.0100 #### [facility] [address] [place], [address] ALT [Catalytic activity/Vol] 18 U/L Normal 13-56 [facility] Comment on above: Performed By: #### L 500.4050, L100.0100 #### [facility] [address] [place], [address] AST [Catalytic activity/Vol] 11 U/L Low 15-37 [facility] Comment on above: Performed By: #### L 500.4050, L100.0100 #### [facility] [address] [place], [address] Bilirubin [Mass/Vol] 0.30 mg/dL Normal 0.20-1.00 [facility] Comment on above: Result Comment: For patients on eltrombopag therapy, use of Dimension [place] TBIL is not recommended. Performed By: #### L 500.4050, L100.0100 #### [facility] [address] [place], [address] BUN/CRE 12.1 RATIO Normal 10-20 [facility] Comment on above: Performed By: #### L 500.4050, L100.0100 #### [facility] [address] [place], [address] CA,Total 8.5 mg/dL Normal 8.5-10.1 [facility] Comment on above: Performed By: #### L 500.4050, L100.0100 #### [facility] [address] [place], [address] Chloride [Moles/Vol] 108 mmol/L High 98-107 [facility] Comment on above: Performed By: #### L 500.4050, L100.0100 #### [facility] [address] [place], [address] CO2 [Moles/Vol] 30.0 mmol/L Normal 21.0-32.0 [facility] Comment on above: Performed By: #### L 500.4050, L100.0100 #### [facility] [address] [place], [address] Creatinine [Mass/Vol] 0.74 mg/dL Normal 0.55-1.02 [facility] Comment on above: Result Comment: The validity of the calculated GFR GFRAA in patients over 70 years has not been determined. Clinical correlation is essential. Performed By: #### L 500.4050, L100.0100 #### [facility] [address] [place], [address] ECRCL 68.07 ml/min Normal [facility] Comment on above: Performed By: #### L 500.4050, L100.0100 #### [facility] [address] [place], [address] EST GFR - AA 101 mL/min Normal >60 [facility] Comment on above: Result Comment: Afri can Taiwanese GFR Calc Performed By: #### L 500.4050, L100.0100 #### [facility] [address] [place], [address] GAP 4 Low 5-15 [facility] Comment on above: Performed By: #### L 500.4050, L100.0100 #### [facility] [address] [place], [address] GFR/1.73 sq M.predicted among non-blacks MDRD (S/P/Bld) [Vol rate/Area] 84 mL/min/{1.73_m2} Normal >60 [facility] Comment on above: Result Comment: Non- GFR Calc Performed By: #### L 500.4050, L100.0100 #### [facility] [address] [place], [address] Globulin (S) [Mass/Vol] 3.4 g/dL Normal 2.2-4.2 [facility] Comment on above: Performed By: #### L 500.4050, L100.0100 #### [facility] [address] [place], [address] Glucose [Mass/Vol] 121 mg/dL High 74-106 [facility] Comment on above: Result Comment: Fast ing Glucose result from 100 to 125 mg/dL suggests IMPAIRED HOMEOSTASIS per A.D.A. criteria. Performed By: #### L 500.4050, L100.0100 #### [facility] [address] [place], [address] Potassium [Moles/Vol] 3.8 mmol/L Normal 3.5-5.1 [facility] Comment on above: Performed By: #### L 500.4050, L100.0100 #### [facility] [address] [place], [address] Sodium [Moles/Vol] 142 mmol/L Normal 136-145 [facility] Comment on above: Performed By: #### L 500.4050, L100.0100 #### [facility] [address] [place], [address] T PROT 6.7 g/dL Normal 6.4-8.2 [facility] Comment on above: Performed By: #### L 500.4050, L100.0100 #### [facility] [address] [place], [address] Urea nitrogen [Mass/Vol] 9 mg/dL Normal 7-18 [facility] Comment on above: Performed By: #### L 500.4050, L100.0100 #### [facility] [address] [place], [address] Emergency Department Summary on 09-30-2023 Emergency Department Summary [facility] Medical Records Department [address] [place] [address] Emergency Department Summary 09/30/23 MR#: [id number] Acct: [id number] Name: IRMA STEWART Rep #: [id number] : 1960 63 From: Josh Morin MD PCP: Dr. Monik Hackett MD Status:REG ER Location: ED HPI History of Present Illness Chief Complaint: Weakness Narrative Narrative: 63-year-old female past medical history of anxiety/panic disorder, reported history of schizophrenia, fibromyalgia, presents with anxiety, and diarrhea since 3:00 this morning. She relates history that she has had multiple deaths within the last few months with members of her family. Her sister recently and she wanted to change her diet so she drinks a lot of water with fresh squeezed gabriele in it. She started to develop diarrhea at 3:00 this morning, nonbloody, too many to count. She denies any nausea or vomiting but states that she feels very weak and lightheaded. She became anxious and called out to her friend and her boyfriend. She had them call EMS who brought her in because of all of the symptoms, especially the weakness and near syncope. No fevers or chills, no other symptoms. [facility] Medical History Anxiety Bipolar 1 disorder DDD (degenerative disc disease) Depression Diabetes FHx: total knee replacement Fibromyalgia High cholesterol Hypertension Osteoarthritis Overactive bladder Panic disorder Home Medications oxybutynin chloride 10 mg tablet,extended release 24 hr (Ditropan XL) 10 mg PO QHS 11/27/13 [History Last Taken 09/29/23] quetiapine 200 mg tablet (Seroquel) 150 mg PO QHS 11/27/13 [History Last Taken 09/29/23] divalproex 500 mg tablet,delayed release (Depakote) 500 mg PO BID 12/04/13 [History Last Taken 09/30/23] metoprolol tartrate 50 mg tablet 50 mg PO BID 12/04/13 [History Last Taken 09/30/23] nystatin 100,000 unit/gram topical powder (Nyamyc) 1 applic topical TID ##1 08/02/14 [Rx Last Taken 09/30/23] Oxybutynin Chloride [Ditropan Xl] 5 mg PO DAILY 10/22/14 [History Last Taken 09/30/23] cholecalciferol (vitamin D3) 25 mcg (1,000 unit) tablet (Vitamin D3) 2,000 unit PO DAILY 10/22/14 [History Last Taken 09/30/23] duloxetine 60 mg capsule,delayed release 60 mg PO BID 10/22/14 [History Last Taken 09/30/23] omeprazole 20 mg capsule,delayed release 20 mg PO DAILY 10/22/14 [History Last Taken 09/30/23] pregabalin 50 mg capsule 100 mg PO BID 10/22/14 [History Last Taken 09/30/23] atorvastatin 40 mg tablet 40 mg PO QHS 07/27/20 [History Last Taken 09/29/23] buspirone 5 mg tablet 10 mg PO TID 07/27/20 [History Last Taken 09/30/23] furosemide 20 mg tablet 20 mg PO DAILY 07/27/20 [History Last Taken 09/30/23] insulin glargine 100 unit/mL (3 mL) subcutaneous pen 30 - 40 unit SQ QHS 07/27/20 [History Last Taken 09/30/23] sertraline 100 mg tablet 200 mg PO DAILY 07/27/20 [History Last Taken 09/30/23] hydroxyzine pamoate 50 mg capsule 50 mg PO TID PRN anxiety #15 caps 09/30/23 [Rx Last Taken Unknown] Allergy/AdvReac Type Severity Reaction Status Date / Time acetaminophen [From Tylenol] Allergy Swelling Verified 09/30/23 18:56 amoxicillin [Amoxicillin] Allergy Rash Verified 09/30/23 18:56 haloperidol [From Haldol] Allergy Other Verified 09/30/23 18:56 haloperidol lactate Allergy Other Verified 09/30/23 18:56 [From Haldol] lithium [[place]] Allergy Other Verified 09/30/23 18:56 naproxen sodium [From Aleve] Allergy Swelling Verified 09/30/23 18:56 Surgical History H/O: hysterectomy History of rectal surgery History of tonsillectomy Social History Smoking Status: Never smoker EXAM Physical Exam Narrative Exam Narrative: Afebrile. Vital signs noted. HEENT: Normocephalic. Atraumatic. PERRL, EOMI. Neck soft and supple. No point tenderness or step off. Cardiovascular: Regular rate and rhythm. No murmurs, rubs, or gallops appreciated. Respiratory: No tachypnea. Lungs clear to auscultation bilaterally. Gastrointestinal: Abdomen soft, nontender, with normoactive bowel sounds. No rebound or guarding. Neurological: Awake. Alert. Nonfocal, nonlateralizing. Skin: No rash. Normal color. No pallor. Musculoskeletal: No pedal edema. Full range of motion extremities. Psychiatric: Positive anxiety. Const Vital Signs: 09/30/23 13:52 09/30/23 15:50 09/30/23 15:52 Temperature 96.9 F L 97.2 F L Temperature Source Temporal Temporal Pulse Rate 76 74 Respiratory Rate 20 H 16 Respiratory Effort Normal Non-Labored Respiratory Pattern Normal Blood Pressure 155/99 H 150/90 H Blood Pressure Mean 117 110 Pulse Ox 97 96 Oxygen Delivery Method Room Air Room Air 09/30/23 17:00 Temperature 98.1 F (more content not included)... Normal [facility] Urinalysis, Completeon 09-30 WBC 0-5 SEEN Normal 0-5 [facility] Comment on above: Order Comment: CLEAN CATCH Performed By: #### L 400.0001 #### [facility] [address] [place], [place], [address] BACTERIA 0 SEEN Normal None Seen [facility] Comment on above: Order Comment: CLEAN CATCH Performed By: #### L 400.0001 #### [facility] [address] [place], [place], [id number] EPI,SQUAMOUS 0 SEEN Normal 5-10 [facility] Comment on above: Order Comment: CLEAN CATCH Performed By: #### L 400.0001 #### [facility] [address] [place], [address] Mucus Ql (Urine sed) 0 SEEN Normal [facility] Comment on above: Order Comment: CLEAN CATCH Performed By: #### L 400.0001 #### [facility] [address] [place], [place], [id number] RBC 0 SEEN Normal 0-5 [facility] Comment on above: Order Comment: CLEAN CATCH Performed By: #### L 400.0001 #### [facility] [address] [place], [place], [id number] CBC W Auto Differential pane l (Bld)on 07-12-2023 Basophils (Bld) [#/Vol] 0.03 10*3/uL <0.11 k/uL [facility] Basophils/100 WBC (Bld) 0.7 % [facility] Differential cell count method Nom (Bld) Auto [facility] Eosinophils (Bld) [#/Vol] 0.09 10*3/uL <0.46 k/uL [facility] Eosinophils/100 WBC (Bld) 2.2 % [facility] Erythrocyte distribution width (RBC) [Ratio] 12.5 % 11.5 - 15.0 % [facility] Hematocrit (Bld) [Volume fraction] 42.8 % 36.0 - 46.0 % [facility] Hemoglobin (Bld) [Mass/Vol] 13.9 g/dL 11.5 - 15.5 g/dL [facility] Immature granulocytes (Bld) [#/Vol] <0.10 k/uL [facility] Immature granulocytes/100 WBC (Bld) 0.2 % [facility] Lymphocytes (Bld) [#/Vol] 1.52 10*3/uL 1.00 - 4.00 k/uL [facility] Lymphocytes/100 WBC (Bld) 36.4 % [facility] MCH (RBC) [Entitic mass] 31.3 pg 26.0 - 34.0 pg [facility] MCHC (RBC) [Mass/Vol] 32.5 g/dL 30.5 - 36.0 g/dL [facility] MCV (RBC) [Entitic vol] 96.4 fL 80.0 - 100.0 fL [facility] Monocytes (Bld) [#/Vol] 0.28 10*3/uL <0.87 k/uL [facility] Monocytes/100 WBC (Bld) 6.7 % [facility] Neutrophils (Bld) [#/Vol] 2.25 10*3/uL 1.45 - 7.50 k/uL [facility] Neutrophils/100 WBC (Bld) 53.8 % [facility] Nucleated RBC (Bld) [#/Vol] <0.01 k/uL [facility] Nucleated RBC/100 WBC (Bld) [Ratio] 0.0 /100 WBC [facility] Platelet mean volume (Bld) [Entitic vol] 11.3 fL 9.0 - 12.7 fL [facility] Platelets (Bld) [#/Vol] 144 10*3/uL Low 150 - 400 k/uL [facility] RBC (Bld) [#/Vol] 4.44 10*6/uL 3.90 - 5.2 0 m/uL [facility] WBC (Bld) [#/Vol] 4.18 10*3/uL 3.70 - 11. 00 k/uL [facility] ESR Westergren method (Bld) [Velocity]on 07-12-2023 ESR (Bld) [Velocity] 10 mm/h 0 - 20 mm/hr [facility] HEMOGLOBIN A1C (POC)on 07-12 HbA1c (Bld) [Mass fraction] 8.4 % Abnormal 4.2 - 5.6 % [facility] UA DIP, URINE (POC)on 2022 BILIRUBIN UA (POCT) Small Abnormal Negative [facility] CLARITY UA (POCT) Clear [facility] COLOR UA (POCT) Yellow [facility] GLUCOSE UA (POCT) >=1000 Abnormal Negative mg/dL [facility] Hemoglobin Ql (U) Negative Negative [facility] KETONE UA (POCT) 80 mg/dL Abnormal Negative mg/dL [facility] LEUKOCYTES UA (POCT) Negative Negative [facility] NITRITE UA (POCT) Negative Negative [facility] PH UA (POCT) 5.5 4.5 - 8.0 [facility] Protein Ql (U) Trace Abnormal Negative mg/dL [facility] SPECIFIC GRAVITY UA (POCT) 1.025 1.005 - 1.030 [facility] UROBILINOGEN UA (POCT) 0.2 E.U./dL Normal E.U./dL [facility] XR KNEE GENERAL 4V AP BOTH/P A BOTH/LAT/MERC BILATERALon 03-26-2023 [facility] XR Knee - bilateral 4 Viewso n 03-26-2023 IMPRESSION: 1. No acute osseous abnormality right knee and left knee. 2. Right knee frontal arthroplasty. 3. Tricompartmental left knee osteoarthritis 4. Suboptimal joint space centering frontal weightbearing imaging [employer]: P[employer] Transcribe Date/Time: Mar 26 2023 7:15P Dictated by : LATISHA ISAAC MD This examination was interpreted and the report reviewed and electronically signed by: LATISHA ISAAC MD on Mar 26 2023 7:23PM [facility] DIVISION OF RADIOLOGY * * *Final Report* * * DATE OF EXAM: Mar 26 2023 6:56PM WOX [id number] - XR KNEE 4V AP/PA/LAT/MERCH RYLEY / PROCEDURE REASON: Knee joint injury, initial encounter * * * * Physician Interpretation * * * * EXAMINATION: XR KNEE 4V AP/PA/LAT/MERCH RYLEY HISTORY: Posterior left knee pain and anterior right knee pain following a fall x 1 week ago. Knee joint injury, initial encounter . TECHNIQUE: XR KNEE 4V AP/PA/LAT/MERCH RYLEY Laterality: BILATERAL Number of different views (projections): 4 M: XB_1 COMPARISON: None RESULT: Bilateral knees: 5 images including weightbearing frontal as labeled. Imaging centered above the joint space line on the 2 frontal images. No identified acute osseous abnormality. Trace joint fluid each knee. Right knee total arthroplasty with patellar resurfacing. No evident hardware loosening or failure. Left knee tricompartmental osteophytosis including severe medial, moderate to severe patellofemoral, moderate lateral. Joint space narrowing mild to moderate medial compartment but otherwise maintained. DIVISION OF RADIOLOGY Provider, [facility] - 03/26/2023 * * *Final Report* * * DATE OF EXAM: Mar 26 2023 6:56PM WOX 5618 - XR KNEE 4V AP/PA/LAT/MERCH RYLEY / PROCEDURE REASON: Knee joint injury, initial encounter * * * * Physician Interpretation * * * * EXAMINATION: XR KNEE 4V AP/PA/LAT/MERCH RYLEY HISTORY: Posterior left knee pain and anterior right knee pain following a fall x 1 week ago. Knee joint injury, initial encounter . TECHNIQUE: XR KNEE 4V AP/PA/LAT/MERCH RYLEY Laterality: BILATERAL Number of different views (projections): 4 M: XB_1 COMPARISON: None RESULT: Bilateral knees: 5 images including weightbearing frontal as labeled. Imaging centered above the joint space line on the 2 frontal images. No identified acute osseous abnormality. Trace joint fluid each knee. Right knee total arthroplasty with patellar resurfacing. No evident hardware loosening or failure. Left knee tricompartmental osteophytosis including severe medial, moderate to severe patellofemoral, moderate lateral. Joint space narrowing mild to moderate medial compartment but otherwise maintained. IMPRESSION IMPRESSION: 1. No acute osseous abnormality right knee and left knee. 2. Right knee frontal arthroplasty. 3. Tricompartmental left knee osteoarthritis 4. Suboptimal joint space centering frontal weightbearing imaging [employer] Coach: [facility] Transcribe Date/Time: Mar 26 2023 7:15P Dictated by : LATISHA ISAAC MD This examination was interpreted and the report reviewed and electronically signed by: LATISHA ISAAC MD on Mar 26 2023 7:23PM EST [facility] Radiology Study observation (narrative) [facility] XR Knee - bilateral 4 ViewsO rdered By: Ccf Provider on 03-26-2023 [facility] XR Lumbar spine 3 Viewson IMPRESSION: Lumbar spine degenerative changes as described above. Cross Country And Track And Field Coach: [facility] Transcribe Date/Time: Feb 26 2023 9:54A Dictated by : JORGE SCHWARTZ MD This examination was interpreted and the report reviewed and electronically signed by: JORGE SCHWARTZ MD on Feb 26 2023 9:56AM [facility] DIVISION OF RADIOLOGY * * *Final Report* * * DATE OF EXAM: Feb 22 2023 3:36PM WOX [id number] - XR LUMBAR 3V AP/LAT/L5-S1 / PROCEDURE REASON: multiple diagnoses * * * * Physician Interpretation * * * * EXAM TITLE: XR LUMBAR 3V AP/LAT/L5-S1 EXAM DATE/TIME: 02/22/2023 3:36 PM COMPARISON: None. CLINICAL INDICATION/HISTORY: Low back pain. TECHNIQUE: AP, lateral and cone down lateral views of the lumbar spine are presented. FINDINGS: There are five lub-uqp-ixnrsyo lumbar vertebrae. No fracture or subluxations are noted. There appears be L2-3 mild disc space narrowing. There is mild osteophyte formation, with facet arthrosis. Kissing spine noted on lateral view. DIVISION OF RADIOLOGY Provider, Nicolas Wilkes - 02/26/2023 * * *Final Report* * * DATE OF EXAM: Feb 22 2023 3:36PM WOX [id number] - XR LUMBAR 3V AP/LAT/L5-S1 / PROCEDURE REASON: multiple diagnoses * * * * Physician Interpretation * * * * EXAM TITLE: XR LUMBAR 3V AP/LAT/L5-S1 EXAM DATE/TIME: 02/22/2023 3:36 PM COMPARISON: None. CLINICAL INDICATION/HISTORY: Low back pain. TECHNIQUE: AP, lateral and cone down lateral views of the lumbar spine are presented. FINDINGS: There are five jdn-xnr-rvecbky lumbar vertebrae. No fracture or subluxations are noted. There appears be L2-3 mild disc space narrowing. There is mild osteophyte formation, with facet arthrosis. Kissing spine noted on lateral view. IMPRESSION IMPRESSION: Lumbar spine degenerative changes as described above. [employer] Country [employer] Track [employer] Field Coach: JADON Transcribe Date/Time: Feb 26 2023 9:54A Dictated by : JORGE SCHWARTZ MD This examination was interpreted and the report reviewed and electronically signed by: JORGE SCHWARTZ MD on Feb 26 2023 9:56AM EST [facility] XR Lumbar spine 3 ViewsOrder ed By: Ccf Provider on 02-26-2023 [facility] XR Lumbar spine 3 Viewson Radiology Study observation (narrative) [facility] XR FOOT GENERAL 3V AP/LAT/OB L LEFTon 10-09-2022 [facility] .Auto Diffon 08-31-2020 Ammonia (P) [Mass/Vol] 0.50 10 3/mcL Normal 0.15-1.00 [facility] Comment on above: Performed By: #### C BC, ADIFF, ANEU, CMP, GFR #### [address] [address] Basophils (Bld) [#/Vol] 0.10 10 3/mcL Normal 0.00-0.19 [facility] [place] Comment on above: Performed By: #### C BC, ADIFF, ANEU, CMP, GFR #### [address] [address] Basophils/100 WBC (Bld) 0.9 % Normal 0.0-2.5 [facility] ([place]) Comment on above: Performed By: #### C BC, ADIFF, ANEU, CMP, GFR #### [address] [address] Eosinophils (Bld) [#/Vol] 0.10 10 3/mcL Normal 0.00-0.40 [facility] ([place]) Comment on above: Performed By: #### C BC, ADIFF, ANEU, CMP, GFR #### [address] [address] Eosinophils/100 WBC (Bld) 0.9 % Normal 0.0-7.0 [facility] [place] Comment on above: Performed By: #### C BC, ADIFF, ANEU, CMP, GFR #### [address] [address] Lymphocytes (Bld) [#/Vol] 2.70 10 3/mcL Normal 0.77-3.85 [facility] ([place] Comment on above: Performed By: #### C BC, ADIFF, ANEU, CMP, GFR #### [address] [address] Lymphocytes/100 WBC (Bld) 36.7 % Normal 10.0-50.0 [facility] ([place] Comment on above: Performed By: #### C BC, ADIFF, ANEU, CMP, GFR #### [address] [address] Monocytes/100 WBC (Bld) 7.2 % Normal 1.7-13.0 [facility] ([place] Comment on above: Performed By: #### C BC, ADIFF, ANEU, CMP, GFR #### [address] [address] Neutrophils/100 WBC (Bld) 54.3 % Normal 37.0-80.0 [facility] [place] Comment on above: Performed By: #### C BC, ADIFF, ANEU, CMP, GFR #### [address] [address] .GFRon 08-31-2020 GFR 146 ml/min/1.73sqm Normal [facility] ([place]) Comment on above: Result Comment: GFR Population mean for , Non- Americans Ages 20-29 = 116 mL/min/1.73 sq.m. Ages 30-39 = 107 mL/min/1.73 sq.m. Ages 40-49 = 99 mL/min/1.73 sq.m. Ages 50-59 = 93 mL/min/1.73 sq.m. Ages 60-69 = 85 mL/min/1.73 sq.m. Ages 70+ = 75 mL/min/1.73 sq.m. Chronic Kidney Disease: Less than 60 mL/min/1.73 square meters End Stage Renal Disease: Less than 15 mL/min/1.73 square meters Performed By: #### C BC, RACHELLE, ANEU, CMP, GFR #### [address] [address] GFR Non- 121 ml/min/1.73sqm Normal [facility] ([place]) Comment on above: Result Comment: GFR Population mean for , Non- Americans Ages 20-29 = 116 mL/min/1.73 sq.m. Ages 30-39 = 107 mL/min/1.73 sq.m. Ages 40-49 = 99 mL/min/1.73 sq.m. Ages 50-59 = 93 mL/min/1.73 sq.m. Ages 60-69 = 85 mL/min/1.73 sq.m. Ages 70+ = 75 mL/min/1.73 sq.m. Chronic Kidney Disease: Less than 60 mL/min/1.73 square meters End Stage Renal Disease: Less than 15 mL/min/1.73 square meters Performed By: #### C BC, ADIFF, ANEU, CMP, GFR #### [address] [address] .NEUABSon 08-31-2020 Neutrophils (Bld) [#/Vol] 4.00 10 3/mcL Normal 2.85-6.16 [facility] Comment on above: Performed By: #### C BC, ADIFF, ANEU, CMP, GFR #### [place] [id number] CBCon 08-31-2020 Erythrocyte distribution width (RBC) [Ratio] 15.2 % High 11.5-14.5 [facility] [place] Comment on above: Performed By: #### C BC, ADIFF, ANEU, CMP, GFR #### [place] [address] Hematocrit (Bld) [Volume fraction] 40.7 % Normal 37.0-47.0 [facility] [place] Comment on above: Performed By: #### C BC, ADIFF, ANEU, CMP, GFR #### [place] [address] Hemoglobin (Bld) [Mass/Vol] 13.4 G/dL Normal 12.0-16.0 [facility] [place] Comment on above: Performed By: #### C BC, ADIFF, ANEU, CMP, GFR #### [place] [id number] MCH (RBC) [Entitic mass] 31.6 pg High 27.0-31.2 [facility] [place] Comment on above: Performed By: #### C BC, ADIFF, ANEU, CMP, GFR #### [place] [id number] MCHC (RBC) [Mass/Vol] 33.0 G/dL Normal 33.0-37.0 [facility] [place] Comment on above: Performed By: #### C BC, ADIFF, ANEU, CMP, GFR #### [place] [address] MCV (RBC) [Entitic vol] 95.9 fL High 80.0-94.0 [facility] [place] Comment on above: Performed By: #### C BC, ADIFF, ANEU, CMP, GFR #### [address] [address] Platelet mean volume (Bld) [Entitic vol] 8.8 fL Normal 7.4-10.4 [facility] [place] Comment on above: Performed By: #### C BC, ADIFF, ANEU, CMP, GFR #### [address] [address] Platelets (Bld) [#/Vol] 259 10 3/mcL Normal 130-400 [facility] [place] Comment on above: Performed By: #### C BC, ADIFF, ANEU, CMP, GFR #### [address] [address] RBC (Bld) [#/Vol] 4.25 10 6/mcL Normal 4.20-5.40 [facility] ([place]) Comment on above: Performed By: #### C BC, ADIFF, ANEU, CMP, GFR #### [address] [address] WBC (Bld) [#/Vol] 7.40 10 3/mcL Normal 4.60-10.80 [facility] ([place] Comment on above: Performed By: #### C BC, ADIFF, ANEU, CMP, GFR #### [address] [address] CMPon 08-31-2020 Albumin [Mass/Vol] 3.1 G/dL Low 3.5-5.0 [facility] ([place] Comment on above: Performed By: #### C BC, ADIFF, ANEU, CMP, GFR #### [address] [address] Albumin/Globulin [Mass ratio] 0.9 {ratio} Low 1.1-2.5 [facility] [place] Comment [place] above: Performed By: #### C BC, ADIFF, ANEU, CMP, GFR #### [address] [address] ALP [Catalytic activity/Vol] 51 U/L Normal 40-135 [facility] [place] Comment on above: Performed By: #### C BC, ADIFF, ANEU, CMP, GFR #### [address] [address] ALT [Catalytic activity/Vol] 15 U/L Normal 14-59 [facility] [place] Comment on above: Performed By: #### C BC, ADIFF, ANEU, CMP, GFR #### [address] [address] AST [Catalytic activity/Vol] 29 U/L Normal 10-40 [facility] [place] Comment on above: Performed By: #### C BC, ADIFF, ANEU, CMP, GFR #### [address] [address] Bili Total 0.4 mg/dL Normal 0.2-1.0 [facility] [place] Comment on above: Result Comment: Use of this assay is not recommended for patients undergoing treatment with eltrombopag due to the potential for falsely elevated results. Performed By: #### C BC, ADIFF, ANEU, CMP, GFR #### [address] [address] Calcium [Mass/Vol] 8.3 mg/dL Low 8.4-10.2 [facility] [place] Comment on above: Performed By: #### C BC, ADIFF, ANEU, CMP, GFR #### [address] [address] Chloride [Moles/Vol] 104 mmol/L Normal 98-107 [facility] [place] Comment on above: Performed By: #### C BC, ADIFF, ANEU, CMP, GFR #### [address] [address] CO2 [Moles/Vol] 31 mmol/L High 22-29 [facility] ([place] Comment on above: Performed By: #### C BC, ADIFF, ANEU, CMP, GFR #### [address] [address] Creatinine [Mass/Vol] 0.52 mg/dL Low 0.55-1.02 [facility] [place] Comment on above: Performed By: #### C BC, ADIFF, ANEU, CMP, GFR #### [address] [address] Electrolyte Balance 5.0 mEq/L Normal [facility] ([place]) Comment on above: Performed By: #### C BC, ADIFF, ANEU, CMP, GFR #### [address] [address] Globulin (S) [Mass/Vol] 3.4 G/dL Normal [facility] [place] Comment on above: Performed By: #### C BC, ADIFF, ANEU, CMP, GFR #### [address] [address] Glucose [Mass/Vol] 135 mg/dL High 70-105 [facility] [place] Comment on above: Performed By: #### C BC, ADIFF, ANEU, CMP, GFR #### [address] [address] Potassium [Moles/Vol] 5.0 mmol/L Normal 3.5-5.1 [facility] [place] Comment on above: Performed By: #### C BC, ADIFF, ANEU, CMP, GFR #### [address] [address] Protein [Mass/Vol] 6.5 G/dL Normal 6.4-8.2 [facility] ([place] Comment on above: Performed By: #### C BC, ADIFF, ANEU, CMP, GFR #### [address] [address] Sodium [Moles/Vol] 140 mmol/L Normal 136-145 [facility] ([place] Comment on above: Performed By: #### C BC, ADIFF, ANEU, CMP, GFR #### [address] [address] Urea nitrogen [Mass/Vol] 12 mg/dL Normal 7-18 [facility] [place] Comment on above: Performed By: #### C BC, ADIFF, ANEU, CMP, GFR #### [place] [id number] [place], [place] [address] Urea nitrogen/Creatinine [Mass ratio] 23 ratio Normal 7-27 [facility] [place] Comment on above: Performed By: #### C BC, ADIFF, ANEU, CMP, GFR #### Nan [address] [place], [place] [address] Vital Signs Date Time Vital Sign Value Performing Clinician Facility 04-16-2025 10:04-0400 Body mass index (BMI) [Ratio] 44.29 kg/m2 Lala Older GENETICS PHYSICIAN.SOLE INKER Work Phone: [facility] 04-16-2025 10:04-0400 Body weight 117.03 kg Lala Older GENETICS PHYSICIAN.SOLE INKER Work Phone: [facility] 04-16-2025 10:04-0400 Diastolic blood pressure 80 mm[Hg] Lala Older GENETICS PHYSICIAN.SOLE INKER Work Phone: [facility] 04-16-2025 10:04-0400 Heart rate 76 /min Lala Older GENETICS PHYSICIAN.SOLE INKER Work Phone: [facility] 04-16-2025 10:04-0400 Respiratory rate 16 /min Lala Older GENETICS PHYSICIAN.SOLE INKER Work Phone: [facility] 04-16-2025 10:04-0400 SaO2% (BldA) [Mass fraction] 96 % Lala Older GENETICS PHYSICIAN.SOLE INKER Work Phone: [facility] 04-16-2025 10:04-0400 Systolic blood pressure 144 mm[Hg] Lala Older GENETICS PHYSICIAN.SOLE INKER Work Phone: [facility] 11-10-2024 15:50-0500 Diastolic blood pressure 80 mm[Hg] Jaime Spencer GENETICS PHYSICIAN.CRM SOLUTION ARCHITECT Work Phone: [facility] 11-10-2024 15:50-0500 Systolic blood pressure 124 mm[Hg] Jaime Spencer GENETICS PHYSICIAN.CRM SOLUTION ARCHITECT Work Phone: [facility] 11-10-2024 15:49-0500 Body mass index (BMI) [Ratio] 44.65 kg/m2 Jaime Spencer GENETICS PHYSICIAN.CRM SOLUTION ARCHITECT Work Phone: [facility] 11-10-2024 15:49-0500 Body weight 118 kg Jaime Spencer GENETICS PHYSICIAN.CRM SOLUTION ARCHITECT Work Phone: [facility] 11-10-2024 15:49-0500 Heart rate 75 /min Jaime Spencer GENETICS PHYSICIAN.CRM SOLUTION ARCHITECT Work Phone: [facility] 05-06-2024 17:04-0400 Body mass index (BMI) [Ratio] 44.97 kg/m2 Lala Older GENETICS PHYSICIAN.SOLE INKER Work Phone: [facility] 05-06-2024 17:04-0400 Body weight 118.84 kg Lala Older GENETICS PHYSICIAN.SOLE INKER Work Phone: [facility] 05-06-2024 17:04-0400 Diastolic blood pressure 80 mm[Hg] Lala Older GENETICS PHYSICIAN.SOLE INKER Work Phone: [facility] 05-06-2024 17:04-0400 Heart rate 80 /min Lala Older GENETICS PHYSICIAN.SOLE INKER Work Phone: [facility] 05-06-2024 17:04-0400 Respiratory rate 16 /min Lala Older GENETICS PHYSICIAN.SOLE INKER Work Phone: [facility] 05-06-2024 17:04-0400 SaO2% (BldA) [Mass fraction] 93 % Lala Older GENETICS PHYSICIAN.SOLE INKER Work Phone: [facility] 05-06-2024 17:04-0400 Systolic blood pressure 122 mm[Hg] Lala Older GENETICS PHYSICIAN.SOLE INKER Work Phone: [facility] 04-29-2024 14:03-0400 Body mass index (BMI) [Ratio] 44.29 kg/m2 Pulm Wstr Work Phone: [facility] 04-29-2024 14:03-0400 Body weight 117.03 kg Pulm Wstr Work Phone: [facility] 04-29-2024 14:01-0400 Body mass index (BMI) [Ratio] 44.29 kg/m2 Monserrat Peng PA-C Work Phone: [facility] 04-29-2024 14:01-0400 Body weight 117.03 kg Monserrat Peng PA-C Work Phone: [facility] 04-29-2024 14:01-0400 Diastolic blood pressure 74 mm[Hg] Monserrat Peng PA-C Work Phone: [facility] 04-29-2024 14:01-0400 Heart rate 85 /min Monserrat Peng PA-C Work Phone: [facility] 04-29-2024 14:01-0400 Respiratory rate 14 /min Monserrat Peng PA-C Work Phone: [facility] 04-29-2024 14:01-0400 SaO2% (BldA) [Mass fraction] 92 % Monserrat Peng PA-C Work Phone: [facility] 04-29-2024 14:01-0400 Systolic blood pressure 122 mm[Hg] Monserrat Peng PA-C Work Phone: [facility] 02-27-2024 14:35-0400 Body mass index (BMI) [Ratio] 44.11 kg/m2 Jaime Spencer GENETICS PHYSICIAN.CRM SOLUTION ARCHITECT Work Phone: [facility] 02-27-2024 14:35-0400 Body weight 116.57 kg Jaime Spencer GENETICS PHYSICIAN.CRM SOLUTION ARCHITECT Work Phone: [facility] 02-27-2024 14:35-0400 Diastolic blood pressure 74 mm[Hg] Jaime Spencer GENETICS PHYSICIAN.CRM SOLUTION ARCHITECT Work Phone: [facility] 02-27-2024 14:35-0400 Heart rate 73 /min Jaime Spencer GENETICS PHYSICIAN.CRM SOLUTION ARCHITECT Work Phone: [facility] 02-27-2024 14:35-0400 Respiratory rate 16 /min Jaime Spencer GENETICS PHYSICIAN.CRM SOLUTION ARCHITECT Work Phone: [facility] 02-27-2024 14:35-0400 Systolic blood pressure 111 mm[Hg] Jaime Spencer GENETICS PHYSICIAN.CRM SOLUTION ARCHITECT Work Phone: [facility] 12-06-2023 14:50-0500 Body height 163.8 cm Pulm Wstr Work Phone: [facility] 12-06-2023 14:50-0500 Body weight 117.03 kg Pulm Wstr Work Phone: [facility] 12-06-2023 14:50-0500 Heart rate 76 /min Pulm Wstr Work Phone: [facility] 12-06-2023 14:50-0500 Respiratory rate 16 /min Pulm Wstr Work Phone: [facility] 12-06-2023 14:50-0500 SaO2% (BldA) [Mass fraction] 96 % Pulm Wstr Work Phone: [facility] 08-09-2023 14:00-0400 Body weight 113.85 kg Jaime Spencer GENETICS PHYSICIAN.CRM SOLUTION ARCHITECT Work Phone: [facility] 08-09-2023 14:00-0400 Diastolic blood pressure 83 mm[Hg] Jaime Spencer GENETICS PHYSICIAN.CRM SOLUTION ARCHITECT Work Phone: [facility] 08-09-2023 14:00-0400 Heart rate 78 /min Jaime Spencer GENETICS PHYSICIAN.CRM SOLUTION ARCHITECT Work Phone: [facility] 08-09-2023 14:00-0400 Systolic blood pressure 113 mm[Hg] Jaime Spencer GENETICS PHYSICIAN.CRM SOLUTION ARCHITECT Work Phone: [facility] 07-15-2023 02:40-0400 Diastolic Blood Pressure Non-Invasive [address] MORGAN BENJAMIN MD [facility] 07-15-2023 02:40-0400 Heart rate 92 /min DR MORGAN BENJAMIN MD [facility] 09-18-2023 02:40-0400 Reason For Taking VItal Signs DR MORGAN BENJAMIN MD [facility] 07-15-2023 02:40-0400 Respiratory rate 20 /min DR MORGAN BENJAMIN MD [facility] 07-15-2023 02:40-0400 Systolic Blood Pressure Non-Invasive [address] MORGAN BENJAMIN MD [facility] 07-15-2023 01:44-0400 Body temperature 97.88 [degF] DR MORGAN BENJAMIN MD [facility] 07-15-2023 01:44-0400 Diastolic Blood Pressure Non-Invasive [address] MORGAN BENJAMIN MD [facility] 07-15-2023 01:44-0400 Heart rate 100 /min DR MORGAN BENJAMIN MD [facility] 07-15-2023 01:44-0400 Respiratory rate 20 /min DR MORGAN BENJAMIN MD [facility] 07-15-2023 01:44-0400 Systolic Blood Pressure Non-Invasive [address] MORGAN BENJAMIN MD [facility] 07-12-2023 10:48-0400 Body temperature 97.3 [degF] Lala Older GENETICS PHYSICIAN.SOLE INKER Work Phone: [facility] 07-12-2023 10:48-0400 Body weight 114.13 kg Lala Older GENETICS PHYSICIAN.SOLE INKER Work Phone: [facility] 07-12-2023 10:48-0400 Diastolic blood pressure 74 mm[Hg] Lala Older GENETICS PHYSICIAN.SOLE INKER Work Phone: [facility] 07-12-2023 10:48-0400 Heart rate 110 /min Lala Older GENETICS PHYSICIAN.SOLE INKER Work Phone: [facility] 07-12-2023 10:48-0400 Respiratory rate 16 /min Lala Older GENETICS PHYSICIAN.SOLE INKER Work Phone: [facility] 07-12-2023 10:48-0400 SaO2% (BldA) [Mass fraction] 98 % Lala Older GENETICS PHYSICIAN.SOLE INKER Work Phone: [facility] 07-12-2023 10:48-0400 Systolic blood pressure 120 mm[Hg] Lala Older GENETICS PHYSICIAN.SOLE INKER Work Phone: [facility] 06-29-2023 20:32-0400 Body temperature 98.6 [degF] DR AIDAN ROBLES DO [facility] 06-29-2023 20:32-0400 Diastolic Blood Pressure Non-Invasive [address] AIDAN ROBLES DO [facility] 06-29-2023 20:32-0400 Heart rate 87 /min DR AIDAN ROBLES DO [facility] 06-29-2023 20:32-0400 Respiratory rate 20 /min DR AIDAN ROBLES DO [facility] 06-29-2023 20:32-0400 Systolic Blood Pressure Non-Invasive [address] AIDAN ROBLES DO [facility] 05-23-2023 15:00-0400 Diastolic blood pressure 77 mm[Hg] Thom Golias PT Work Phone: [facility] 05-23-2023 15:00-0400 Heart rate 74 /min Thom Golias PT Work Phone: [facility] 05-23-2023 15:00-0400 Systolic blood pressure 120 mm[Hg] Thom Golias PT Work Phone: [facility] 03-26-2023 18:15-0400 Body temperature 97.59 [degF] Gavi Norwood GENETICS PHYSICIAN.SOLE INKER Work Phone: [facility] 03-26-2023 18:15-0400 Diastolic blood pressure 78 mm[Hg] Gavi Praisler-Wood GENETICS PHYSICIAN.SOLE INKER Work Phone: [facility] 03-26-2023 18:15-0400 Heart rate 88 /min Gavi Praisler-Wood GENETICS PHYSICIAN.SOLE INKER Work Phone: [facility] 03-26-2023 18:15-0400 Respiratory rate 16 /min Gavi Praisler-Wood GENETICS PHYSICIAN.SOLE INKER Work Phone: [facility] 03-26-2023 18:15-0400 SaO2% (BldA) [Mass fraction] 94 % Gavi Praisler-Wood GENETICS PHYSICIAN.SOLE INKER Work Phone: [facility] 03-26-2023 18:15-0400 Systolic blood pressure 128 mm[Hg] Gavi Praisler-Wood GENETICS PHYSICIAN.SOLE INKER Work Phone: [facility] 01-23-2023 19:15-0400 Body height 160 cm Monik Hackett MD Work Phone: [facility] 01-23-2023 19:15-0400 Body temperature 96.1 [degF] Monik Hackett MD Work Phone: [facility] 01-23-2023 19:15-0400 Body weight 116.12 kg Monik Hackett MD Work Phone: [facility] 01-23-2023 19:15-0400 Diastolic blood pressure 64 mm[Hg] Monik Hackett MD Work Phone: [facility] 01-23-2023 19:15-0400 Heart rate 81 /min Monik Hackett MD Work Phone: [facility] 01-23-2023 19:15-0400 Respiratory rate 16 /min Monik Hackett MD Work Phone: [facility] 01-23-2023 19:15-0400 SaO2% (BldA) [Mass fraction] 94 % Monik Hackett MD Work Phone: [facility] 01-23-2023 19:15-0400 Systolic blood pressure 118 mm[Hg] Monik Hackett MD Work Phone: [facility] 06-27-2022 16:54-0400 Body height 160 cm Monik Hackett MD Work Phone: [facility] 06-27-2022 16:54-0400 Body temperature 97 [degF] Monik Hackett MD Work Phone: [facility] 06-27-2022 16:54-0400 Body weight 119.75 kg oMnik Hackett MD Work Phone: [facility] 06-27-2022 16:54-0400 Diastolic blood pressure 74 mm[Hg] Monik Hackett MD Work Phone: [facility] 06-27-2022 16:54-0400 Heart rate 74 /min Monik Hackett MD Work Phone: [facility] 06-27-2022 16:54-0400 Respiratory rate 16 /min Monik Hackett MD Work Phone: [facility] 06-27-2022 16:54-0400 SaO2% (BldA) [Mass fraction] 96 % Monik Hackett MD Work Phone: [facility] 06-27-2022 16:54-0400 Systolic blood pressure 124 mm[Hg] Monik Hackett MD Work Phone: [facility] 05-30-2022 16:20-0400 Body weight 122.92 kg Trixie Srinivasa GENETICS PHYSICIAN.SOLE INKER Work Phone: [facility] 05-30-2022 16:20-0400 Diastolic blood pressure 84 mm[Hg] Trixie Srinivasa GENETICS PHYSICIAN.SOLE INKER Work Phone: [facility] 05-30-2022 16:20-0400 Heart rate 74 /min Trixie Srinivasa GENETICS PHYSICIAN.SOLE INKER Work Phone: [facility] 05-30-2022 16:20-0400 Respiratory rate 16 /min Trixie Srinivasa GENETICS PHYSICIAN.SOLE INKER Work Phone: [facility] 05-30-2022 16:20-0400 SaO2% (BldA) [Mass fraction] 92 % Trixie Gibson GENETICS PHYSICIAN.SOLE INKER Work Phone: [facility] 05-30-2022 16:20-0400 Systolic blood pressure 136 mm[Hg] Trixie Gibson GENETICS PHYSICIAN.SOLE INKER Work Phone: [facility] Encounters Encounter Date Encounter Type Care Provider Facility Start: 07-20-2025 End: 07-20-2025 [facility] Facility:[facility] Start: 07-20-2025 End: 07-20-2025 ambulatory [facility] Facility:[facility] Start: 06-14-2025 End: 06-14-2025 Refill Lala Harrison APRN.SOLE INKER Work Phone: [facility] [place] Comment on above: Med Change Request Start: 05-18-2025 End: 05-19-2025 Refill Monik Hackett MD Work Phone: [facility] [place] Comment on above: Refill Request Start: 05-07-2025 End: 05-07-2025 Refill Lala Harrison APRN.SOLE INKER Work Phone: [facility] [place] Comment on above: Med Change Request Start: 04-26-2025 End: 04-27-2025 Refill Monik Hackett MD Work Phone: [facility] [place] Comment on above: Refill Request Start: 04-19-2025 End: 06-19-2025 Follow-up encounter Lala Harrison APRN.SOLE INKER Work Phone: [facility] [place] Start: 04-16-2025 End: 04-16-2025 [facility] Facility:[facility] Start: 04-16-2025 End: 04-16-2025 Office outpatient visit 25 minutes Lala Harrison APRN.SOLE INKER Work Phone: [facility] [place] Comment on above: Dizziness (Primary D x); Tinnitus of both ears; Controlled type 2 diabetes mellitus without complication, with long-term current use of insulin (HCC); Other chronic pain; Weight gain; Paresthesia of bilateral legs; Insomnia, unspecified type; Schizophrenia, unspecified type (HCC); Panic disorder without agoraphobia; Medication management Start: 04-16-2025 End: 04-16-2025 ambulatory LALA HARRISON Facility:[facility] Start: 04-12-2025 End: 04-12-2025 Telephone encounter Monik Hackett MD Work Phone: Internal Medicine [place] Comment on above: Patient Update Start: 03-30-2025 End: 04-05-2025 Refill Monik Hackett MD Work Phone: Internal Medicine [place] Comment on above: Refill Request Start: 03-24-2025 End: 03-25-2025 Refill Monik Hackett MD Work Phone: Internal Medicine [place] Comment on above: Refill Request; de la paz sfer to new pharmacy since [facility] closing Start: 03-09-2025 End: 04-09-2025 ambulatory Monik Hackett MD Work Phone: Internal Medicine [place] Start: 02-26-2025 End: 03-10-2025 Telephone encounter Monik Hackett MD Work Phone: Internal Medicine [place] Comment on above: Order Request Start: 02-23-2025 End: 02-23-2025 Refill Monik Hackett MD Work Phone: Internal Medicine [place] Comment on above: Refill Request Start: 02-08-2025 End: 02-10-2025 Refill Monik Hackett MD Work Phone: Internal Medicine [place] Comment on above: Refill Request Start: 01-20-2025 End: 02-01-2025 Refill Lala Harrison APRN.CNP Work Phone: Internal Medicine [place] Comment on above: Refill Request Start: 01-04-2025 End: 01-05-2025 Telephone encounter Monik Hackett MD Work Phone: Internal Medicine [place] Comment on above: Refill Request; Medi cation Problem Refill Request Start: 12-07-2024 End: 12-08-2024 Refill Monik Hackett MD Work Phone: Internal Medicine [place] Comment on above: Refill Request Start: 12-01-2024 End: 12-01-2024 Telephone encounter Monik Hackett MD Work Phone: Internal Medicine [place] Comment on above: Patient Update Start: 11-11-2024 End: 11-13-2024 Telephone encounter Oscar Villeladuncan DERRICK CAR OPERATOR Navigation Start: 11-10-2024 End: 11-10-2024 ambulatory [facility] Facility:[facility] Start: 11-10-2024 End: 11-10-2024 ambulatory [facility] Facility:[facility] Start: 11-10-2024 End: 11-10-2024 Office outpatient visit 25 minutes Jaime Spencer APRN.CRM SOLUTION ARCHITECT Work Phone: Internal Medicine [place] Comment on above: Panic disorder witho ut agoraphobia (Primary Dx); Moderate episode of recurrent major depressive disorder (HCC); Insomnia, unspecified type; Controlled type 2 diabetes mellitus without complication, with long-term current use of insulin (HCC); Burning sensation; Fibromyalgia; Other fatigue; Generalized pain Start: 11-03-2024 End: 11-04-2024 Refill Monik Hackett MD Work Phone: Internal Medicine [place] Comment on above: Refill Request; Lab Orders Start: 09-22-2024 End: 09-25-2024 ambulatory Monik Hackett MD Work Phone: Internal Medicine [place] [id number] Start: 08-20-2024 End: 08-20-2024 Refill Monik Hackett MD Work Phone: Internal Medicine [place] Comment on above: Refill Request Start: 08-11-2024 End: 08-12-2024 Refill Susan Lucia APRN.SOLE INKER Work Phone: Internal Medicine [place] Comment on above: Refill Request Start: 06-26-2024 End: 06-26-2024 Refill Monik Hackett MD Work Phone: Internal Medicine [place] Comment on above: Refill Request Start: 06-18-2024 End: 06-23-2024 Refill Lala Harrison APRN.SOLE INKER Work Phone: Internal Medicine [place] Comment on above: Med Change Request Start: 06-12-2024 Refill Monik Burnette Work Phone: Internal Medicine [place] Comment on above: Med Change Request Start: 06-11-2024 Refill Lala Harrison GENETICS PHYSICIAN .SOLE INKER Work Phone: Internal Medicine [place] Comment on above: Refill Request Start: 06-01-2024 Refill Monik Burnette Work Phone: Family Medicine [place] Comment on above: Refill Request Start: 05-08-2024 Telephone encounter Jaime julian GENETICS PHYSICIAN.CRM SOLUTION ARCHITECT Work Phone: Internal Medicine [place] Comment on above: Procedure Start: 05-06-2024 End: 05-06-2024 Patient encounter procedure Lala Harrison GENETICS PHYSICIAN.SOLE INKER Work Phone: Internal Medicine [place] Comment on above: Controlled type 2 di abetes mellitus without complication, with long-term current use of insulin (HCC) (Primary Dx); Chest pain, unspecified type; SOBOE (shortness of breath on exertion) Start: 04-29-2024 End: 04-29-2024 ambulatory Pulm Lab [facility] Comment on above: Spirometry Start: 04-29-2024 End: 04-29-2024 Patient encounter procedure Pulm Lab [facility] Work Phone: PULM LAB [facility] Comment on above: Mild persistent asth ma without complication (Primary Dx); SOB (shortness of breath); Hypoxemia; Morbid obesity (HCC) Start: 04-27-2024 Refill Jaime Beasley PRN.CRM SOLUTION ARCHITECT Work Phone: Internal Medicine [place] Comment on above: Refill Request Start: 04-08-2024 Refill Susan Beasley PRN.SOLE INKER Work Phone: Family Medicine [place] Comment on above: Refill Request Start: 2024 Telephone encounter Monik duncan MD Work Phone: Internal Medicine [place] Comment on above: Insurance Authorizat ion ([place]) Start: 03-12-2024 Refill Jaime Spencer A PRN.CRM SOLUTION ARCHITECT Work Phone: Internal Medicine [place] Start: 02-27-2024 End: 02-27-2024 Office outpatient visit 25 minutes Jaime Spencer GENETICS PHYSICIAN.CRM SOLUTION ARCHITECT Work Phone: Internal Medicine [place] Comment on above: Chest pain, unspecif ied type (Primary Dx); SOBOE (shortness of breath on exertion); Hot flashes; Controlled type 2 diabetes mellitus without complication, with long-term current use of insulin (HCC); Screening for diabetic retinopathy; Irritant contact dermatitis due to cosmetics; Encounter for immunization Start: 02-27-2024 Telephone encounter Camila Johns MD Work Phone: Pulmonary Medicine Comment on above: Orders Start: 02-13-2024 Refill Lala Harrison GENETICS PHYSICIAN .SOLE INKER Work Phone: Internal Medicine [place] Comment on above: Refill Request Start: 02-06-2024 Refill Lala Harrison GENETICS PHYSICIAN .SOLE INKER Work Phone: Internal Medicine [place] Comment on above: Refill Request Start: 01-24-2024 Refill Yasmine camacho GENETICS PHYSICIAN.SOLE INKER Work Phone: Internal Medicine [place] Comment on above: Refill Request Start: 01-07-2024 Refill Jaime Spencer A PRN.CRM SOLUTION ARCHITECT Work Phone: Internal Medicine [place] Comment on above: Refill Request Start: 01-06-2024 Refill Susan Morrisr A PRN.SOLE INKER Work Phone: Family Medicine [place] Comment on above: Refill Request Start: 12-11-2023 Telephone encounter Yasmine han GENETICS PHYSICIAN.SOLE INKER Work Phone: Internal Medicine [place] Comment on above: Results Start: 12-10-2023 Refill Jaime Spencer A PRN.CRM SOLUTION ARCHITECT Work Phone: Internal Medicine [place] Comment on above: Refill Request Start: 12-09-2023 Telephone encounter Yasmine ahn GENETICS PHYSICIAN.SOLE INKER Work Phone: Internal Medicine [place] Start: 12-07-2023 Refill Jaime WASHINGTONCRM SOLUTION ARCHITECT Work Phone: Internal Medicine [place] Comment on above: Refill Request Start: 12-06-2023 End: 12-06-2023 ambulatory Pulm Lab [facility] Work Phone: PULM LAB [facility] Comment on above: Spirometry Start: 12-06-2023 End: 12-06-2023 Patient encounter procedure Pulm Lab [facility] Work Phone: [place] [facility] Start: 11-29-2023 Telephone encounter Monik duncan MD Work Phone: Internal [facility] Comment on above: DME for oxygen Start: 11-25-2023 End: 11-25-2023 Subsequent hospital visit by physician [facility] Work Phone: Radiology Comment on above: Pain of right thumb [M79.644] Start: 11-04-2023 End: 11-04-2023 Subsequent hospital visit by physician [facility] Work Phone: Radiology Comment on above: Acute cough [R05.1] Start: 10-03-2023 ambulatory Lala ReyesSOLE INKER Work Phone: Internal Medicine [place] Comment on above: [facility] has not filed my Rosuvastatin I requested on October 01 Refill Request Start: 10-01-2023 Refill Kelsi Alfred PA-C Work Phone: Internal [facility] Comment on above: Refill Request I Need A Pulse Oxime ter & Blood Pressure Cuff Meter Start: 09-30-2023 End: 09-30-2023 Emergency department patient visit [facility] Facility:[facility] Start: 08-27-2023 Telephone encounter Constance Humphries [facility] Work Phone: [facility] Comment on above: Missed Appointment Start: 08-21-2023 Refill Yasmine ReyesSOLE INKER Work Phone: Internal [facility] Comment on above: Refill Request Start: 08-13-2023 Telephone encounter Jaime julian GENETICS PHYSICIAN.CRM SOLUTION ARCHITECT Work Phone: Internal Medicine [place] Comment on above: Medication Problem Refill Request Start: 08-09-2023 End: 08-09-2023 Office outpatient visit 25 minutes Jaime Spencer JENN.CRM SOLUTION ARCHITECT Work Phone: Internal Medicine [place] Comment on above: NANCY positive (Primar y Dx); History of iron deficiency; Esophageal reflux; Screening for cervical cancer; Screening for colon cancer; Encounter for immunization; Controlled type 2 diabetes mellitus without complication, with long-term current use of insulin (HCC); Screening for diabetic retinopathy; Generalized pain; Burning sensation; Fibromyalgia; Irritant contact dermatitis due to cosmetics; Rash and nonspecific skin eruption Start: 07-15-2023 Refill Monik Burnette Work Phone: Internal Medicine [place] Comment on above: Refill Request (New blood sugar meter/supplies//) Start: 07-15-2023 End: 07-15-2023 Emergency department patient visit DR MORGAN BENJAMIN MD [facility] Start: 07-12-2023 End: 07-12-2023 Patient encounter procedure Lala Harrison APRN.SOLE INKER Work Phone: Internal Medicine [place] Comment on above: Generalized pain (Pr imary Dx); Burning sensation; Weakness; Brain fog; Controlled type 2 diabetes mellitus without complication, with long-term current use of insulin (HCC); Fibromyalgia Start: 06-29-2023 End: 06-29-2023 Emergency department patient visit DR AIDAN ROBLES DO [facility] Start: 06-11-2023 Refill Lala ReyesSOLE INKER Work Phone: Internal Medicine [place] Comment on above: Refill Request Start: 05-27-2023 End: 05-27-2023 ambulatory Ricardo Dinh [facility] Work Phone: [facility] Comment on above: Controlled type 2 di abetes mellitus without complication, with long-term current use of insulin (HCC) (Primary Dx) Start: 05-27-2023 End: 05-27-2023 Telemedicine consultation with patient Ricardo Dinh [facility] Work Phone: [facility] Start: 05-23-2023 End: 05-23-2023 OT/PT/Speech Visit Thom Enamorado PT Work Phone: [facility] Comment on above: 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 (Primary Dx); Benign paroxysmal vertigo of both ears Start: 05-01-2023 ambulatory Monik Burnette Work Phone: [facility] [place] Start: 04-29-2023 Refill Monik Burnette Work Phone: [facility] Comment on above: Med Change Request Start: 04-19-2023 ambulatory No One (Historical) Ref erring Physician Start: 04-16-2023 ambulatory No Pcp (Historcal) Refe rring Physician Start: 04-15-2023 Telephone encounter Monik duncan MD Work Phone: Internal Medicine [place] Comment on above: Insurance Authorizat ion Start: 04-14-2023 Refill Monik Burnette Work Phone: [facility] Comment on above: Med Change Request Start: 04-11-2023 End: 04-11-2023 Patient encounter procedure Fior Joseph [facility] Work Phone: [facility] Comment on above: Controlled type 2 di abetes mellitus without complication, with long-term current use of insulin (HCC) (Primary Dx); Medication management Refill Request Start: 03-26-2023 End: 03-26-2023 Subsequent hospital visit by physician Sushila [facility] [place] Work Phone: Radiology Comment on above: Knee joint injury, i nitial encounter [S89.90XA] Start: 03-26-2023 End: 03-26-2023 Patient encounter procedure Gavi Norwood APRN.CNP Work Phone: [place] [facility] Comment on above: Knee joint injury, i nitial encounter (Primary Dx) Start: 02-26-2023 Telephone encounter Monik duncan MD Work Phone: Internal Medicine [place] Comment on above: Xray Results Start: 02-22-2023 End: 02-22-2023 Subsequent hospital visit by physician Sushila [facility] [place] Work Phone: Radiology Comment on above: Chronic bilateral lo w back pain with bilateral sciatica [M54.42, M54.41, G89.29] Start: 01-31-2023 Telephone encounter Jess Perry [facility] Work Phone: Family [facility] Comment on above: Appointment Start: 01-30-2023 Refill Monik Burnette Work Phone: Internal Medicine [place] Comment on above: Refill Request Start: 01-23-2023 End: 01-23-2023 Patient encounter procedure Monik Hackett MD Work Phone: Internal Medicine [place] Comment on above: Schizophrenia, unspe cified type (HCC) (Primary Dx); Fibromyalgia; Moderate episode of recurrent major depressive disorder (HCC); Controlled type 2 diabetes mellitus without complication, with long-term current use of insulin (HCC); Hypertriglyceridemia; Subcutaneous nodules Start: 01-01-2023 Refill Monik Burnette Work Phone: Internal Medicine [place] Comment on above: Refill Request Start: 12-21-2022 ambulatory Trixie martin GENETICS PHYSICIAN.SOLE INKER Work Phone: [facility] Comment on above: Question regarding C BC Start: 11-26-2022 Refill Lala Older GENETICS PHYSICIAN .SOLE INKER Work Phone: Internal Medicine [place] Comment on above: Refill Request Start: 11-12-2022 Refill Lala Older GENETICS PHYSICIAN .SOLE INKER Work Phone: Internal Medicine [place] Comment on above: Refill Request Start: 10-09-2022 End: 10-09-2022 Subsequent hospital visit by physician Sushila [facility] [place] Work Phone: Radiology Comment on above: Hammertoe of left fo ot [M20.42] Start: 09-24-2022 Refill Lala Older GENETICS PHYSICIAN .SOLE INKER Work Phone: Family Medicine [place] Comment on above: Refill Request Start: 09-06-2022 Refill Trixie Krueger an GENETICS PHYSICIAN.SOLE INKER Work Phone: Family Medicine [place] Comment on above: Refill Request Start: 08-20-2022 Refill Lala Older GENETICS PHYSICIAN .SOLE INKER Work Phone: Internal Medicine [place] Comment on above: Refill Request Start: 07-25-2022 ambulatory No Pcp (Historical) Ref erring Physician Start: 07-17-2022 Refill Trixietremaine Choudhurym an GENETICS PHYSICIAN.SOLE INKER Work Phone: [facility] Medicine [place] Comment on above: Refill Request Start: 07-03-2022 Refill Lala Older GENETICS PHYSICIAN .SOLE INKER Work Phone: [facility] [place] Comment on above: Refill Request Start: 06-27-2022 End: 06-27-2022 Patient encounter procedure Monik Hackett MD Work Phone: Internal Medicine [place] Comment on above: Pitted nails (Primar y Dx); Controlled type 2 diabetes mellitus without complication, with long-term current use of insulin (HCC); Mixed hyperlipidemia; Vitamin B12 deficiency Start: 05-30-2022 End: 05-30-2022 Office outpatient visit 40 minutes Trixie Gibson GENETICS PHYSICIAN.SOLE INKER Work Phone: [facility] [place] Comment on above: Onychomycosis (Prima ry Dx) Start: 05-23-2022 ambulatory Monik Burnette Work Phone: [facility] [place] Start: 05-14-2022 Refill Lala Older GENETICS PHYSICIAN .SOLE INKER Work Phone: Internal Medicine [place] Comment on above: Refill Request Start: 05-05-2022 Refill Lala Older GENETICS PHYSICIAN .SOLE INKER Work Phone: Internal Medicine [place] Comment on above: Refill Request Start: 03-14-2022 ambulatory Trixie Krueger an GENETICS PHYSICIAN.SOLE INKER Work Phone: Family Medicine [place] Comment on above: IRON, COMPREHENSIVE METABOLIC PANEL, A1C Start: 05-17-2022 ambulatory Trixietremaine Krueger an GENETICS PHYSICIAN.SOLE INKER Work Phone: Family Medicine [place] Comment on above: TOE NAILS Start: 02-09-2022 Refill Lala Harrison GENETICS PHYSICIAN .SOLE INKER Work Phone: Internal Medicine [place] Comment on above: Refill Request Procedures Date Procedure Procedure Detail Performing Clinician Start: 04-29-2024 Nitric oxide gas determination Camila Johns MD Work Phone: Start: 12-06-2023 Noninvasive ear/puls e oximetry multiple deter Yasmine Martinez GENETICS PHYSICIAN.SOLE INKER Work Phone: Start: 12-06-2023 Plethysmography lung volumes w/wo airway resist Yasmine Martinez GENETICS PHYSICIAN.SOLE INKER Work Phone: Start: 11-25-2023 Radex fingr minimum 2 views Gavi Norwood GENETICS PHYSICIAN.SOLE INKER Work Phone: Start: 11-04-2023 Radiologic exam ches t 2 views Yasmine Martinez GENETICS PHYSICIAN.SOLE INKER Work Phone: Start: 08-09-2023 INFLUENZA VACCINE, A GE 6 MO - 64 YR, QUADRIVALENT (AFLURIA, FLULAVAL, FLUZONE) Jaime Spencer GENETICS PHYSICIAN.CRM SOLUTION ARCHITECT Work Phone: Start: 07-12-2023 Urnls dip stick/tabl et rgnt auto w/o microscopy Lala Harrison GENETICS PHYSICIAN.SOLE INKER Work Phone: Start: 07-12-2023 Hemoglobin A1c/Hemoglobin.total in Blood Lala Harrison GENETICS PHYSICIAN.SOLE INKER Work Phone: Start: 03-26-2023 Radiologic exam knee complete 4/more views Gavi Norwood GENETICS PHYSICIAN.SOLE INKER Work Phone: Start: 02-22-2023 Radex spine lumbosac ral 2/3 views Monik Hackett MD Work Phone: Start: 10-09-2022 Radex foot complete minimum 3 views Narendra Turner Work Phone: Start: 05-20-2006 Mammography Lala Older GENETICS PHYSICIAN.SOLE INKER Work Phone: Abdominal hysterectomy DR RANDALL BENJAMIN MD History of right tot al knee replacement DR MORGAN BENJAMIN MD Tonsillectomy DR MORGAN BENJAMIN MD Plan of Treatment Date Care Activity Detail Author Start: 10-02-2031 Urine microalbumin profile [facility] Start: 04-17-2026 Hepatitis B screening Urine Albumin:Creatinine Ratio [facility] Start: 04-16-2026 Annual PCP Team Chronic Disease Visit Annual PCP Team Chronic Disease Visit [facility] Start: 11-10-2025 Hepatitis B surface antibody level LDL Cholesterol [facility] Start: 10-16-2025 Hemoglobin A1c measurement HbA1C [facility] Start: 06-28-2025 Influenza vaccination [facility] Start: 06-25-2025 End: 06-25-2025 Patient encounter procedure 06/25/2025 4:20 PM EDT Office Visit Internal Medicine [place] [address] [place] [address] Monik Hackett MD [address] [place] [address] follow up Internal Medicine [place] Comment on above: follow up Start: 05-10-2025 Hemoglobin A1c measurement HbA1C [facility] Start: 05-06-2025 Annual PCP Team Chronic Disease Visit Annual PCP Team Chronic Disease Visit [facility] Start: 04-20-2025 End: 04-20-2025 Patient encounter procedure 04/20/2025 2:40 PM EDT Office Visit Internal Medicine [place] [address] [place] [address] Monik Hackett MD [address] [place] [address] follow up Internal Medicine [place] Comment on above: follow up Start: 04-16-2025 End: 07-16-2025 Cobalamin (Vitamin B12) [Mass/volume] in Serum or Plasma [facility] Comment on above: Expected: 04/16/2025, Expires: Start: 04-16-2025 End: 07-16-2025 Comprehensive metabolic 2000 panel - Serum or Plasma [facility] Comment on above: Expected: 04/16/2025, Expires: Start: 04-16-2025 End: 07-16-2025 Cortisol [Mass/volume] in Serum or Plasma [facility] Comment on above: Expected: 04/16/2025, Expires: Start: 04-16-2025 End: 07-16-2025 Hemoglobin A1c in Blood [facility] Work Phone: Comment on above: Expected: 04/16/2025, Expires: Start: 04-16-2025 End: 07-16-2025 Microalbumin/Creatinine [Mass Ratio] in Urine ALBUMIN/CREATININE RATIO, URINE Lab Routine Controlled type 2 diabetes mellitus without complication, with long-term current use of insulin (HCC) Expected: 04/16/2025, Expires: 07/16/2025 [facility] Comment on above: Expected: 04/16/2025, Expires: Start: 04-16-2025 End: 07-16-2025 Thyrotropin [Units/volume] in Serum or Plasma [facility] Comment on above: Expected: 04/16/2025, Expires: Start: 04-16-2025 End: 07-16-2025 Thyroxine (T4) free [Mass/volume] in Serum or Plasma [facility] Comment on above: Expected: 04/16/2025, Expires: Start: 04-16-2025 End: 07-16-2025 Triiodothyronine (T3) Free [Mass/volume] in Serum or Plasma [facility] Comment on above: Expected: 04/16/2025, Expires: Start: 04-16-2025 End: 07-16-2025 Urinalysis complete panel - Urine URINALYSIS (WITH MICROSCOPIC) WITH CULTURE IF INDICATED Lab Routine Dizziness Tinnitus of both ears Controlled type 2 diabetes mellitus without complication, with long-term current use of insulin (HCC) Weight gain Paresthesia of bilateral legs Expected: 04/16/2025, Expires: 07/16/2025 [facility] Comment on above: Expected: 04/16/2025, Expires: Start: 04-16-2025 End: 04-16-2025 Patient encounter procedure 04/16/2025 8:00 AM EDT Office Visit Internal Medicine [place] [address] [place] [address] Monik Hackett MD [address] [place] [address] Generalized Weakness, fatigue, irritable. SEE TE. Internal Medicine [place] Comment on above: Generalized Weakness, fatigue, irritable . SEE TE. Start: 03-19-2025 End: 03-19-2025 Patient encounter procedure 03/19/2025 4:20 PM EDT Office Visit Internal Medicine [place] [address] [place] [address] Monik Hackett MD [address] [place] [address] follow up Internal Medicine [place] Comment on above: follow up Start: 02-05-2025 End: 02-05-2025 Patient encounter procedure 02/05/2025 4:20 PM EDT Office Visit Internal Medicine [place] [address] [place] [address] Monik Hackett MD [address] [place] [address] follow up Internal Medicine [place] Comment on above: follow up Start: 12-15-2024 End: 12-15-2024 Patient encounter procedure 12/15/2024 2:40 PM EST Office Visit Internal Medicine [place] [address] [place] [address] Monik Hackett MD [address] [place] [address] follow up Internal Medicine [place] Comment on above: follow up Start: 11-10-2024 End: 02-09-2025 25-hydroxyvitamin D3 [Mass/volume] in Serum or Plasma [facility] Comment on above: Expected: 11/10/2024, Expires: Start: 11-10-2024 End: 02-09-2025 CBC W Auto Differential panel - Blood [facility] Work Phone: Comment on above: Expected: 11/10/2024, Expires: Start: 11-10-2024 End: 02-09-2025 Cobalamin (Vitamin B12) [Mass/volume] in Serum or Plasma [facility] Comment on above: Expected: 11/10/2024, Expires: Start: 11-10-2024 End: 02-09-2025 Comprehensive metabolic 2000 panel - Serum or Plasma [facility] Comment on above: Expected: 11/10/2024, Expires: Start: 11-10-2024 End: 02-09-2025 Ferritin [Mass/volume] in Serum or Plasma [facility] Comment on above: Expected: 11/10/2024, Expires: Start: 11-10-2024 End: 02-09-2025 Iron and Iron binding capacity panel - Serum or Plasma [facility] Comment on above: Expected: 11/10/2024, Expires: Start: 11-10-2024 End: 02-09-2025 Thyrotropin [Units/volume] in Serum or Plasma [facility] Comment on above: Expected: 11/10/2024, Expires: Start: 11-06-2024 End: 11-06-2024 Patient encounter procedure 11/06/2024 1:40 PM EST Office Visit Internal Medicine [place] [address] [place] [address] Lala Harrison APRN.SOLE INKER [address] [place], [place] [id number] fatigue Internal Medicine [place] Comment on above: fatigue Start: 11-04-2024 Annual PCP Team Chronic Disease Visit Annual PCP Team Chronic Disease Visit [facility] [facility] Start: 11-04-2024 Hepatitis B surface antibody level LDL Cholesterol [facility] Start: 10-05-2024 End: 10-05-2024 Patient encounter procedure 10/05/2024 3:00 PM EST Office Visit Internal Medicine [place] [address] [place] [address] Lala Harrison APRN.SOLE INKER [address] [place] [address] fatigue [facility] [place] Comment on above: fatigue Start: 09-23-2024 End: 09-23-2024 Patient encounter procedure 09/23/2024 3:00 PM EST Office Visit Pulmonary Medicine [address] [place] [place] [address] Monserrat Khoury PABrunoC [address] [place] [address] 3 MTH F/U ASTHMA Pulmonary Medicine Comment on above: 3 MTH F/U ASTHMA Start: 09-22-2024 End: 12-22-2024 Hemoglobin A1c in Blood HEMOGLOBIN A1C Lab Routine Controlled type 2 diabetes mellitus without complication, with long-term current use of insulin (HCC) Expected: 09/22/2024, Expires: 12/22/2024 [facility] Comment on above: Expected: 09/22/2024, Expires: Start: 09-22-2024 End: 12-22-2024 Lipid 1996 panel - Serum or Plasma LIPID PANEL BASIC Lab Routine Medication management Expected: 09/22/2024, Expires: 12/22/2024 [facility] Comment on above: Expected: 09/22/2024, Expires: Start: 09-22-2024 End: 12-22-2024 Microalbumin/Creatinine [Mass Ratio] in Urine ALBUMIN/CREATININE RATIO, URINE Lab Routine Controlled type 2 diabetes mellitus without complication, with long-term current use of insulin (HCC) Expected: 09/22/2024, Expires: 12/22/2024 [facility] Work Phone: Comment on above: Expected: 09/22/2024, Expires: Start: 08-29-2024 Hemoglobin A1c measurement HbA1C [facility] Start: 08-28-2024 End: 08-28-2024 Patient encounter procedure 08/28/2024 3:00 PM EDT Office Visit Neurology [address] [place] [address] Vicky Ga APRN.SOLE INKER [address] [place] [address] SLEEP APNEA Neurology Comment on above: SLEEP APNEA Start: 08-19-2024 End: 08-19-2024 Patient encounter procedure 08/19/2024 6:00 PM EDT Office Visit Internal Medicine [place] [address] [place] [address] Lala Harrison APRN.SOLE INKER [address] [place] [address] This is a follow up from last appt with Lala Harrison. [facility] [place] Comment on above: This is a follow up from last appt with Lala Harrison. Start: 08-09-2024 Hepatitis B screening Urine Albumin:Creatinine Ratio [facility] Start: 07-29-2024 End: 07-29-2024 Patient encounter procedure 07/29/2024 6:00 PM EDT Office Visit Internal Medicine [place] [address] [place] [address] Lala Harrison APRN.SOLE INKER [address] [place] [address] This is a follow up from last appt with Lala Harrison. [facility] [place] Comment on above: This is a follow up from last appt with Lala Harrison. Start: 07-12-2024 Annual PCP Team Chronic Disease Visit Annual PCP Team Chronic Disease Visit [facility] Start: 07-12-2024 Hepatitis B surface antibody level LDL Cholesterol [facility] Start: 07-07-2024 End: 07-07-2024 ambulatory 07/07/2024 1:00 PM EDT Education Endocrinology [address] [place] [address] [place] [address] [place] [address] [phone] Endocrinology Comment on above: [phone] Start: 06-28-2024 Covid-19 Vaccine ( season) Covid-19 Vaccine () [facility] Start: 06-28-2024 Covid-19 Vaccine () Covid-19 Vaccine () [facility] Start: 06-28-2024 Influenza vaccination Influenza Vaccine (#1) [facility] Start: 06-26-2024 End: 06-26-2024 Patient encounter procedure 06/26/2024 1:20 PM EDT Office Visit Internal Medicine [place] [address] [facility], [place] [address] Lala Harrison APRN.SOLE INKER [address] [place], [place] [id number] 4 wk f/u [facility] Medicine [place] Comment on above: 4 wk f/u Start: 06-18-2024 End: 09-17-2024 25-hydroxyvitamin D3 [Mass/volume] in Serum or Plasma VITAMIN D 25 HYDROXY Lab Routine Vitamin D deficiency Expected: 06/18/2024, Expires: 09/17/2024 [facility] Work Phone: Comment on above: Expected: 06/18/2024, Expires: Start: 06-17-2024 End: 06-17-2024 Patient encounter procedure 06/17/2024 5:00 PM EDT Office Visit Internal Medicine [place] [address] [facility], [place] [id number] Lala Harrison APRN.SOLE INKER [address] [place], [place] [id number] 4 wk f/u Internal Medicine [place] Comment on above: 4 wk f/u Start: 05-15-2024 End: 05-15-2024 Patient encounter procedure 05/15/2024 8:30 AM EDT Appointment [facility] Cardiology [address] [place] [address] Chest pain, unspecified type [R07.9]; SOBOE (shortness of breath on exertion) [R06.02 [facility] Cardiology Comment on above: Chest pain, unspecified type [R07.9]; SO MARIELY (shortness of breath on exertion) [R06.02 Start: 05-06-2024 End: 05-06-2024 Patient encounter procedure 05/06/2024 5:00 PM EDT Office Visit Internal Medicine [place] [address] [place] [address] Lala Harrison APRN.SOLE INKER [address] [place] [address] 6 month follow up Internal Medicine [place] Comment on above: 6 month follow up Start: 05-04-2024 Hemoglobin A1c measurement HbA1C [facility] Start: 04-29-2024 End: 04-29-2024 Patient encounter procedure 04/29/2024 1:30 PM EDT Office Visit Pulmonary Medicine [address] [place] [address] Monserrat Khoury PA-C [address] [place] [address] 3 MTH F/U ASTHMA Pulmonary Medicine Comment on above: 3 MTH F/U ASTHMA Start: 04-29-2024 End: 04-29-2024 ambulatory 04/29/2024 1:15 PM EDT Procedure PULM LAB [facility] [address] [place] [address] Wstr, Pulm Lab [facility] [address] [place] [address] 3 MTH F/U ASTHMA PUL[facility] Comment on above: 3 MTH F/U ASTHMA Start: 04-27-2024 End: 04-27-2024 Patient encounter procedure 04/27/2024 3:30 PM EDT Office Visit Neurology [address] [place] [address] Vicky Ga APRN.SOLE INKER [address] [place] [address] SLEEP APNEA Neurology Comment on above: SLEEP APNEA Start: 04-27-2024 Hzv zoster vacc recombinant adjuvanted im njx ZOSTER VACCINE, RECOMBINANT (SHINGRIX) Immunization/Injection Routine Encounter for immunization Expected: 04/27/2024 [facility] Comment on above: Expected: 04/27/2024 Start: 03-30-2024 End: 03-30-2024 Patient encounter procedure 03/30/2024 2:20 PM EDT Office Visit Internal Medicine [place] [address] [place] [address] Jaime Spencer APRN.CRM SOLUTION ARCHITECT [address] [place] [address] follow up Internal Medicine [place] Comment on above: follow up Start: 03-20-2024 End: 03-20-2024 Patient encounter procedure 03/20/2024 1:50 PM EDT Office Visit Cardiology [address] [place], [place] [address] Hypoxemia [R09.02] Cardiology Comment on above: Hypoxemia [R09.02] Start: 02-27-2024 End: 05-28-2024 Hemoglobin A1c in Blood [facility] Comment on above: Expected: 02/27/2024, Expires: Start: 02-23-2024 ANNUAL PCP TEAM CHRONIC DISEASE VISIT ANNUAL PCP TEAM CHRONIC DISEASE VISIT [facility] Start: 02-21-2024 Hepatitis B surface antibody level LDL CHOLESTEROL [facility] Start: 01-24-2024 ANNUAL PCP TEAM CHRONIC DISEASE VISIT ANNUAL PCP TEAM CHRONIC DISEASE VISIT [facility] Start: 11-09-2023 End: 01-09-2024 Hemoglobin A1c in Blood HGB A1C Lab Routine Controlled type 2 diabetes mellitus without complication, with long-term current use of insulin (HCC) Expected: 11/09/2023 (Approximate), Expires: 01/09/2024 [facility] Work Phone: Comment on above: Expected: 11/09/2023 (Approximate), Expi res: 01/09/2024 Start: 10-11-2023 Hemoglobin A1c/Hemoglobin.total in Blood HbA1C [facility] Start: 08-22-2023 Hemoglobin A1c/Hemoglobin.total in Blood HBA1C [facility] Start: 08-09-2023 End: 10-09-2023 ALBUMIN/CREAT RATIO RND UR [facility] Work Phone: Comment on above: Expected: 08/09/2023, Expires: 3 Start: 07-31-2023 Glaucoma screening Dilated Retinal Exam [facility] Start: 07-31-2023 Hepatitis C antibody, confirmatory test DILATED RETINAL EXAM [facility] Start: 07-12-2023 End: 09-11-2023 NANCY BY IFA SCREEN [facility] Work Phone: Comment on above: Expected: 07/12/2023, Expires: 3 Start: 07-12-2023 End: 09-11-2023 C reactive protein [Mass/volume] in Serum or Plasma [facility] Work Phone: Comment on above: Expected: 07/12/2023, Expires: 3 Start: 07-12-2023 End: 09-11-2023 Cobalamin (Vitamin B12) [Mass/volume] in Serum or Plasma [facility] Work Phone: Comment on above: Expected: 07/12/2023, Expires: 3 Start: 07-12-2023 End: 09-11-2023 Magnesium [Mass/volume] in Serum or Plasma [facility] Work Phone: Comment on above: Expected: 07/12/2023, Expires: 3 Start: 07-12-2023 End: 09-11-2023 Rheumatoid factor [Units/volume] in Serum or Plasma [facility] Work Phone: Comment on above: Expected: 07/12/2023, Expires: 3 Start: 07-12-2023 End: 09-11-2023 Thyroxine (T4) free [Mass/volume] in Serum or Plasma [facility] Work Phone: Comment on above: Expected: 07/12/2023, Expires: 3 Start: 06-28-2023 Covid-19 Vaccine () Covid-19 Vaccine () [facility] Start: 06-28-2023 Influenza vaccination [facility] Start: 06-27-2023 ANNUAL PCP TEAM CHRONIC DISEASE VISIT ANNUAL PCP TEAM CHRONIC DISEASE VISIT [facility] Start: 06-27-2023 BP CONTROLLED (<130/80) BP CONTROLLED (<130/80) [facility] Start: 05-30-2023 ANNUAL PCP TEAM CHRONIC DISEASE VISIT ANNUAL PCP TEAM CHRONIC DISEASE VISIT [facility] Start: 04-10-2023 Hepatitis B surface antibody level LDL CHOLESTEROL [facility] Start: 03-20-2023 Hepatitis C antibody, confirmatory test DILATED RETINAL EXAM [facility] Start: 12-24-2022 End: 02-23-2023 25-hydroxyvitamin D3 [Mass/volume] in Serum or Plasma VITAMIN D 25 HYDROXY Lab Routine Vitamin D deficiency Expected: 12/24/2022, Expires: 02/23/2023 [facility] Work Phone: Comment on above: Expected: 12/24/2022, Expires: 3 Start: 12-24-2022 End: 02-23-2023 Cobalamin (Vitamin B12) [Mass/volume] in Serum or Plasma VITAMIN B12 BLOOD Lab Routine Vitamin B12 deficiency Expected: 12/24/2022, Expires: 02/23/2023 [facility] Work Phone: Comment on above: Expected: 12/24/2022, Expires: 3 Start: 10-10-2022 Hemoglobin A1c/Hemoglobin.total in Blood HBA1C [facility] Start: 10-02-2022 ANNUAL PCP TEAM CHRONIC DISEASE VISIT ANNUAL PCP TEAM CHRONIC DISEASE VISIT [facility] Start: 10-02-2022 BP CONTROLLED (<130/80) BP CONTROLLED (<130/80) [facility] Start: 10-02-2022 Hepatitis B screening URINE ALBUMIN:CREATININE RATIO [facility] Start: 10-02-2022 Hepatitis B surface antibody level LDL CHOLESTEROL [facility] Start: 10-02-2022 PNEUMOCOCCAL (2 - PCV) PNEUMOCOCCAL (2 - PCV) [facility] Start: 10-02-2022 Pneumococcal vaccination Pneumococcal Vaccine (2 - PCV) [facility] Start: 08-30-2022 End: 10-30-2022 Hepatic function 2000 panel - Serum or Plasma HEPATIC FUNCTION PNL Lab Routine Onychomycosis Expected: 08/30/2022, Expires: 10/30/2022 [facility] Work Phone: Comment on above: Expected: 08/30/2022, Expires: 3 Start: 06-28-2022 Influenza vaccination INFLUENZA (#1) [facility] Start: 06-27-2022 End: 08-27-2022 Cobalamin (Vitamin B12) [Mass/volume] in Serum or Plasma VITAMIN B12 BLOOD Lab Routine Vitamin B12 deficiency Expected: 06/27/2022, Expires: 08/27/2022 [facility] Work Phone: Comment on above: Expected: 06/27/2022, Expires: 2 Start: 12-26-2021 COVID-19 VACCINE (3 - Booster for Pfizer series) COVID-19 VACCINE (3 - Booster for Pfizer series) [facility] Start: 12-24-2021 Hemoglobin A1c/Hemoglobin.total in Blood HBA1C [facility] Start: 12-12-2021 Hepatitis C antibody, confirmatory test DILATED RETINAL EXAM [facility] Start: 09-22-2021 COVID-19 VACCINE (3 - Booster for Pfizer series) COVID-19 VACCINE (3 - Booster for Pfizer series) [facility] Start: 09-22-2021 COVID-19 VACCINE (3 - Pfizer series) COVID-19 VACCINE (3 - Pfizer series) [facility] Start: 09-15-2021 BP CONTROLLED (<130/80) BP CONTROLLED (<130/80) [facility] Start: 2021 Hepatitis B Vaccine (1 of 3 - Risk 3-dose series) Hepatitis B Vaccine (1 of 3 - Risk 3-dose series) [facility] Start: 2021 RSV Vaccine (1 - 1-dose 60+ series) RSV Vaccine (1 - 1-dose 60+ series) [facility] Start: 2021 RSV Vaccine (1 - Risk 60-74 years 1-dose series) RSV Vaccine (1 - Risk 60-74 years 1-dose series) [facility] Start: 2011 SHINGRIX VACCINE (1 of 2) SHINGRIX VACCINE (1 of 2) [facility] Start: 05-20-2007 Mammography [facility] Start: 05-20-2007 Screening for malignant neoplasm of breast Mammogram Screening [facility] Start: 2006 COLOGUARD (FIT-DNA) COLOGUARD (FIT-DNA) [facility] Start: 2006 Colonoscopy COLONOSCOPY [facility] Start: 2006 COLORECTAL CANCER SCREENING COLORECTAL CANCER SCREENING [facility] Start: [address] COLONOGRAPHY [facility] Start: 2006 FECAL OCCULT BLOOD FECAL OCCULT BLOOD [facility] Start: 2006 Screening for malignant neoplasm of colon [facility] Start: 2006 SIGMOIDOSCOPY SIGMOIDOSCOPY [facility] Start: 2003 PAP TESTING PAP TESTING [facility] Start: 1991 HPV TESTING HPV TESTING [facility] Start: 1991 Screening for malignant neoplasm of cervix HPV Testing [facility] Start: 1982 PAP TESTING PAP TESTING [facility] Start: 1982 Screening for malignant neoplasm of cervix [facility] Start: 1971 3 comp foot exam completed DIABETIC FOOT EXAM [facility] Start: 1971 Diabetic foot examination Diabetic Foot Exam [facility] End: 12-24-2023 CBC panel - Blood by Automated count CBC Lab Routine Controlled type 2 diabetes mellitus without complication, with long-term current use of insulin (HCC) Every 6 months for 12 Occurrences starting 12/24/2022 until 12/24/2023 [facility] Work Phone: Comment on above: Every 6 months for 12 Occurrences starti ng 12/24/2022 until 12/24/2023 End: 12-24-2023 Comprehensive metabolic 2000 panel - Serum or Plasma COMP METABOLIC PANEL Lab Routine Controlled type 2 diabetes mellitus without complication, with long-term current use of insulin (HCC) Every 6 months for 12 Occurrences starting 12/24/2022 until 12/24/2023 [facility] Work Phone: Comment on above: Every 6 months for 12 Occurrences starti ng 12/24/2022 until 12/24/2023 End: 05-08-2025 DBT Breast - bilateral screening ALTHEA SCREENING W [facility] Radiology Routine Encounter for screening mammogram for breast cancer 1 Occurrences starting 04/08/2024 until 05/08/2025 [facility] Work Phone: Comment on above: 1 Occurrences starting 04/08/2024 until 05/08/2025 End: 04-08-2026 DBT Breast - bilateral screening ALTHEA SCREENING W CORIN Radiology Routine Encounter for screening mammogram for breast cancer 1 Occurrences starting 03/09/2025 until 04/08/2026 [facility] Work Phone: Comment on above: 1 Occurrences starting 03/09/2025 until 04/08/2026 ECG COMPLETE ECG COMPLETE ECG Routine Chest pain, unspecified type Ordered: 02/27/2024 [facility] Comment on above: Ordered: 02/27/2024 End: 02-26-2025 Echocardiography ECHO Cardiology Routine Hypoxemia 1 Occurrences starting 02/27/2024 until 02/26/2025 [facility] Work Phone: Comment on above: 1 Occurrences starting 02/27/2024 until 02/26/2025 End: 12-24-2023 Hemoglobin A1c in Blood HGB A1C Lab Routine Controlled type 2 diabetes mellitus without complication, with long-term current use of insulin (HCC) Every 3 months for 24 Occurrences starting 12/24/2022 until 12/24/2023 [facility] Work Phone: Comment on above: Every 3 months for 24 Occurrences starti ng 12/24/2022 until 12/24/2023 Hzv zoster vacc recombinant adjuvanted im njx ZOSTER VACCINE, RECOMBINANT (SHINGRIX) Immunization/Injection Routine Encounter for immunization 1 Occurrences starting 02/27/2024 [facility] Work Phone: Comment on above: 1 Occurrences starting 02/27/2024 End: 12-24-2023 Lipid 1996 panel - Serum or Plasma LIPID PANEL BASIC Lab Routine Controlled type 2 diabetes mellitus without complication, with long-term current use of insulin (HCC) Every 6 months for 12 Occurrences starting 12/24/2022 until 12/24/2023 [facility] Work Phone: Comment on above: Every 6 months for 12 Occurrences starti ng 12/24/2022 until 12/24/2023 LUNG DIFFUSION CAPAC ITY (DLCO) LUNG DIFFUSION CAPACITY (DLCO) PFT Routine Shortness of breath 12/06/2023 2:01 PM EST [facility] Work Phone: LUNG VOLUMES LUNG VOLUMES PFT Routine Shortness of breath 12/06/2023 2:01 PM EST [facility] Work Phone: End: 05-30-2024 [facility] SCREENING [facility] SCREENING Radiology Routine Encounter for screening mammogram for breast cancer 1 Occurrences starting 05/01/2023 until 05/30/2024 [facility] Work Phone: Comment on above: 1 Occurrences starting 05/01/2023 until 05/30/2024 PFIZER-BIONTECH COVI D-19 VACCINE () AGE 12+ YR PFIZER-BIONTECH COVID-19 VACCINE () AGE 12+ YR Immunization/Injection Routine Encounter for immunization 1 Occurrences starting 02/27/2024 [facility] Comment on above: 1 Occurrences starting 02/27/2024 PT PLAN OF CARE CERTIFICATION PT PLAN OF CARE CERTIFICATION Procedures Routine Benign paroxysmal vertigo of both ears Benign paroxysmal po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 Ordered: 05/23/2023 [facility] Work Phone: Comment on above: Ordered: 05/23/2023 End: 06-27-2023 PVR LEG W/EXC RLYEY VAS LAB PVR LEG W/EXC RYLEY VAS LAB Vascular Lab Routine Mixed hyperlipidemia 1 Occurrences starting 06/27/2022 until 06/27/2023 [facility] Work Phone: Comment on above: 1 Occurrences starting 06/27/2022 until 06/27/2023 RSV VACCINE, BIVALEN T (ABRYSVO) RSV VACCINE, BIVALENT (ABRYSVO) Immunization/Injection Routine Encounter for immunization 1 Occurrences starting 02/27/2024 [facility] Comment on above: 1 Occurrences starting 02/27/2024 End: 06-22-2023 Screening mammography bi 2-view breast inc cad [facility] SCREENING Radiology Routine Encounter for screening mammogram for breast cancer 1 Occurrences starting 05/23/2022 until 06/22/2023 [facility] Work Phone: Comment on above: 1 Occurrences starting 05/23/2022 until 06/22/2023 SPIROMETRY - BASELIN E AND POST DILATOR SPIROMETRY - BASELINE AND POST DILATOR PFT Routine Shortness of breath 12/06/2023 2:01 PM EST [facility] Work Phone: End: 02-26-2025 STRESS ECHO DOBUTAMINE STRESS ECHO DOBUTAMINE Cardiology Routine Chest pain, unspecified type SOBOE (shortness of breath on exertion) 1 Occurrences starting 02/27/2024 until 02/26/2025 [facility] Comment on above: 1 Occurrences starting 02/27/2024 until 02/26/2025 End: 12-24-2023 Thyrotropin [Units/volume] in Serum or Plasma TSH BLD Lab Routine Controlled type 2 diabetes mellitus without complication, with long-term current use of insulin (HCC) Every 3 months for 24 Occurrences starting 12/24/2022 until 12/24/2023 [facility] Work Phone: Comment on above: Every 3 months for 24 Occurrences starti ng 12/24/2022 until 12/24/2023 End: 02-22-2024 US EXTREMITY MASS/FLUID COLLECTION LEFT US EXTREMITY MASS/FLUID COLLECTION LEFT Radiology Routine Subcutaneous nodules 1 Occurrences starting 01/23/2023 until 02/22/2024 [facility] Work Phone: Comment on above: 1 Occurrences starting 01/23/2023 until 02/22/2024 [facility] Immunizations Immunization Date Immunization Notes Care Provider Drea ohara 08-09-2023 pneumococcal Conjuga te, unspecified formulation Jaime Spencer GENETICS PHYSICIAN.CRM SOLUTION ARCHITECT Work Phone: [facility] Work Phone: 08-09-2023 influenza, injectabl e, quadrivalent, contains preservative Jaime Spencer GENETICS PHYSICIAN.CRM SOLUTION ARCHITECT Work Phone: [facility] Work Phone: 08-09-2023 pneumococcal (PCV20) vaccine, 20 valent (PREVNAR 20) Jaime Spencer GENETICS PHYSICIAN.CRM SOLUTION ARCHITECT Work Phone: [facility] Work Phone: 08-09-2023 influenza virus vacc ine, unspecified formulation Jaime Spencer GENETICS PHYSICIAN.CRM SOLUTION ARCHITECT Work Phone: [facility] 10-02-2021 influenza, injectabl e, quadrivalent, contains preservative Lala Older GENETICS PHYSICIAN.SOLE INKER Work Phone: [facility] 10-02-2021 pneumococcal polysaccharide vaccine, 23 valent Lala Older GENETICS PHYSICIAN.SOLE INKER Work Phone: [facility] 10-02-2021 tetanus toxoid, redu edith diphtheria toxoid, and acellular pertussis vaccine, adsorbed Lala Older GENETICS PHYSICIAN.SOLE INKER Work Phone: [facility] 10-02-2021 influenza virus vacc ine, unspecified formulation Lala Older GENETICS PHYSICIAN.SOLE INKER Work Phone: [facility] 06-23-2021 COVID-19 vaccine, ag e 12+ yr (PFIZER-BIONTSecpanel - PURPLE TOP) Lala Older GENETICS PHYSICIAN.SOLE INKER Work Phone: [facility] 09-15-2020 influenza, injectabl e, quadrivalent, contains preservative Lala Older GENETICS PHYSICIAN.SOLE INKER Work Phone: [facility] 11-22-2009 novel influenza-H1N1 -09, preservative-free, injectable Lala Older GENETICS PHYSICIAN.SOLE INKER Work Phone: [facility] Payers Date Payer Category Payer Self-pay 2022 Medicaid [id number] 2013 Medicaid [employer] [id number] 2013-Present [phone] [address] [place] [address] Medicaid [id number] 2013 Medicaid [id number] Unknown [id number] Social History Date Type Detail Facility Start: 12-07-2020 End: 01-23-2023 Tobacco smoking status NHIS Never smoked tobacco [facility] Start: 10-02-2021 End: 02-22-2023 Alcohol intake Current non-drinker of alcohol (finding) [facility] Start: 12-07-2020 History SDOH Alcohol Frequency 1 [facility] Start: 12-07-2020 History SDOH Social Connections Phone 2 [facility] Start: 12-07-2020 History SDOH Social Connections Living 5 [facility] Start: 12-07-2020 History SDOH Physica l Activity DPW 0 [facility] Start: 12-07-2020 History SDOH Stress 4 [facility] Start: 12-07-2020 Education 12 [facility] Start: 1960 Sex Assigned At Not on file C [facility] Start: 05-12-2022 End: 07-10-2022 Exposure to SARS-CoV-2 (event) Not sure [facility] Start: 05-28-2022 History SDOH Housing Unable to Pay 3 [facility] Start: 12-07-2020 End: 01-23-2023 Tobacco use and exposure Smokeless tobacco non-user [facility] Work Phone: Start: 1960 Sex Assigned At Female C [facility] Start: 05-28-2022 End: 03-06-2023 History of Social function [facility] Start: 05-28-2022 End: 03-06-2023 Social connection and isolation panel [facility] Start: 09-28-2012 In a typical week, h ow many times do you talk on the telephone with family, friends, or neighbors? Patient refused [facility] Are you now , , , , never or living with a partner? Refused [facility] (I/We) worried desire er (my/our) food would run out before (I/we) got money to buy more. DK or Refused [facility] Start: 01-07-2023 Gender identity Identifies as female gender (finding) [facility] Start: 01-07-2023 Sexual orientation Heterosexual (bertha aranda) [facility] Do you feel stress - tense, restless, nervous, or anxious, or unable to sleep at night because your mind is troubled all the time - these days [OSQ] Rather much [facility] Tobacco smoking status No Smokin g Status Entered [facility] Start: 01-24-2024 End: 04-16-2025 Alcohol intake Ex-drinker (finding) [facility] Medical Equipment Procedure Code Equipment Code Equipment Original Text Equipment Identifier Dates [id number], [id number], [id number], [id number], [id number], [id number], [id number], [id number], [id number], [id number], [id number] Start: 07-28-2021 End: 03-30-2025 Comment on above: Test blood sugar(s) 3 times daily. Dx: Type 2 DM - Controlled E11.9 Insulin: Yes 1 Each twice daily. 1 Each two times a d ay. FREESTYLE 28G LANCETS, 0 Refill(s) Start: 07-09-2023 FREESTYLE LANCET S 28 GAUGE EACH, 0 Refill(s) Start: 07-09-2023 Functional Status Date Assessment Result Facility 07-15-2023 Functional Status ID band on, Allergy Band on, Call device within reach, Bed in low position, Wheels locked, Upper/Half-Length side-rails up, Phone within reach, personal items within reach, Bedside Cart Locked, Visitor at bedside [facility] 06-29-2023 Functional Status [facility] Functional Status Standard Safet y ID band on, Allergy Band on, Call device within reach, Bed in low position, Safety level maintained [facility] 06-27-2022 Are you deaf, or do you have serious difficulty hearing No 06/27/2022 5:36 PM EDT Monik Hackett MD [facility] 06-27-2022 Are you blind, or do you have serious difficulty seeing, even when wearing glasses No 06/27/2022 5:36 PM EDT Monik Hackett MD [facility] 06-27-2022 Do you have serious difficulty walking or climbing stairs No 06/27/2022 5:36 PM EDT Monik Hackett MD [facility] 06-27-2022 Do you have difficul ty dressing or bathing No 06/27/2022 5:36 PM EDT Monik Hackett MD [facility] 06-27-2022 Because of a physica l, mental, or emotional condition, do you have difficulty doing errands alone such as visiting a physician's office or shopping No 06/27/2022 5:36 PM EDT Monik Hackett MD [facility] Mental Status Date Assessment Result Facility 07-15-2023 Mental Status Oriented x 4 [facility] 06-29-2023 Mental Status Orientation Oriented x 4 [facility] 06-29-2023 Mental Status [facility] 06-27-2022 Because of a physica l, mental, or emotional condition, do you have serious difficulty concentrating, remembering, or making decisions No 06/27/2022 5:36 PM EDMonik Larson MD No [facility] Clinical Notes 10-15-2006 to 07-20-2025 Telephone Encounter - Nidia Silverio LPN - 06/14/2025 5:49 PM EDTTelephone Encounter - Nidia Silverio LPN - 06/14/2025 5:49 PM EDTPatient InstructionsPatient InstructionsPatient Instructions Note Date & Type Note Facility 07-20-2025 Note HNO ID: [id number] Author: MONIK HACKETT MD Service: ? Author Type: Physician Type: Progress Notes Filed: 07/20/2025 17:11 Note Text: Reason for Visit Follow up HPI Irma Stewart is a 65-year-old female with a history of knee replacement, depression, and fibromyalgia, presenting for evaluation of multiple falls, knee pain, and urinary incontinence. Irma reports multiple falls recently, including one yesterday while running to close windows and turn on the air conditioning. She fell against a wall, which bounced her off near the steps to go downstairs. She landed on her left knee, which had a knee replacement in 2009. She describes the fall as hard and notes that the left knee took the brunt of the impact. She reports shooting pains up her leg from the knee since the fall and was up all night due to the pain. The right knee also hurts but not as severely as the left. She denies having her phone on her at the time of the fall. Irma has a history of knee pain in both knees, with the right knee being loaded with osteoarthritis. She used to receive Synvisc injections in the right knee, which were ineffective, leading to her left knee replacement. The right knee has been swollen and painful for the past couple of years, holding fluid for a while. She wears two pairs of leggings for compression. She has been taking pain medication for fibromyalgia but reports that it is ineffective. She also has a history of sciatica injury from 2009 or 2012, causing constant pain. Irma also reports urinary incontinence, describing a weak bladder with a regular stream but experiencing pressure and numbness. She denies increased frequency or dysuria but notes urgency and difficulty holding urine after taking Lasix. She has a history of urinary infections but states that this feels different. She has not seen a specialist for her bladder issues due to depression and recent family losses. She also reports tension in her jaw from stress, causing teeth grinding and massive headaches. She recently visited the dentist, who noted that she is holding a lot of stress in her jaw. She has a night brace but reports that it falls out at night. Irma has been fighting depression due to family issues and losses. Her brother has been causing her stress, leading to police involvement and fear for her safety. Her children are distant due to her mental illness, and she feels isolated with no friends or support system except for Bill. She was hospitalized in [place] for three weeks on the psychiatric guidry and learned to talk about her issues rather than suppress them. She reports difficulty sleeping due to stress and ineffective sleep medication prescribed by Lala Cedillo or Sergio Spencer. She is currently taking Seroquel for depression but plans to see a new doctor in [place] on August 16 due to dissatisfaction with her current care at the [facility]. Irma has been trying to lose weight and reports losing 17 pounds recently by avoiding soda and white foods. Her last A1c was around 7.4. She also reports static ringing in her ear, which she attributes to stress and teeth grinding. She brought a urine sample for testing today and requests referrals for a Pap test and mammogram. She also expresses concern about her thyroid and requests vitamin D supplementation. She denies back issues other than sciatica and declined gabapentin for fibromyalgia due to concerns about addiction. SOCIAL HISTORY[1] Past medical history, appointments, medications, allergies reviewed. Pertinent Lab/Diagnostic Studies are reviewed and discussed today Current Outpatient Medications: potassium chloride (K-TAB) 10 mEq tablet pregabalin (LYRICA) 100 mg capsule pregabalin (LYRICA) 75 mg capsule Blood-Glucose Meter monitoring kit furosemide (LASIX) 20 mg tablet insulin glargine-yfgn (SEMGLEE,INSULIN GLARG-YFGN,PEN) 100 unit/mL (3 mL) insulin pen Lancets metoprolol tartrate, short acting, (LOPRESSOR) 50 mg tablet QUEtiapine (SEROQUEL) 100 mg tablet rosuvastatin (CRESTOR) 10 mg tablet alcohol swabs insulin glargine (LANTUS SOLOSTAR U-100 INSULIN) 100 unit/mL (3 mL) blood sugar diagnostic (BLOOD GLUCOSE TEST) test strip DULoxetine (CYMBALTA) 40 mg cpDR Insulin [place], Disposable, (BD ULTRAFINE III MINI PEN) 31 gauge x 3/16 budesonide-formoterol (SYMBICORT) 160-4.5 mcg/actuation inhaler albuterol HFA (PROVENTIL HFA, VENTOLIN HFA) 90 mcg/actuation inhaler PULSE OXIMETER [facility] omeprazole (PRILOSEC) 20 mg capsule DULoxetine 60 mg CDRS ZOLOFT 100 MG TAB ferrous sulfate 325 mg (65 mg iron) tablet ergocalciferol 50,000 unit capsule (VITAMIN D2, DRISDOL) metFORMIN ER (GLUCOPHAGE XR) 500 mg 24 hr tablet oxybutynin ER (DITROPAN XL) 10 mg 24 hr tablet triamcinolone acetonide (KENALOG) 0.5 % cream blood sugar diagnostic (BLOOD GLUCOSE TEST) test strip hydrOXYzine HCl (ATARAX) 25 mg tablet Lancets div (more content not included)... [facility] 07-20-2025 Note HNO ID: [id number] Author: MARC SPEARS Tech Service: ? Author Type: Insurance Billing Clerk Type: Progress Notes Filed: 07/20/2025 16:33 Note Text: Radiology Service Progress Note PATIENT NAME: Irma Stewart DATE OF SERVICE: July 20, 2025 TIME: 4:33 PM PATIENT IDENTITY VERIFICATION COMPLETED USING TWO (2) IDENTIFIERS: Name and Date of confirmed by patient verbally. FALL SCREENING: Has the patient had 2 falls in the last year or 1 fall with injury or currently using an Ambulatory Assistive Device (Walker, Cane, Wheelchair, Crutches, etc.)? Yes, Patient High Risk for Falls What interventions were put in place to prevent falls during this visit? Increased Observations by Caregivers PATIENT GENDER DATA: Assigned female at . status: : No status: NO. PATIENT RELEVANT IMPLANT DATA REVIEWED: Yes PATIENT PRESENTS WITH AN IMPLANTABLE OR ATTACHED WEED SPRAYER: No RADIOLOGY DEPARTMENT: General X-ray: Exam(s) Completed: Lower Extremity X-Ray(s): Knee, AP / Lat / Tunne / Merchant Left PERIPHERAL IV DATA: Not applicable SIGNED BY: Steve Christianson July 20, 2025 4:33 PM [facility] 06-14-2025 Telephone encounter Note Patient needs to contact office. Nidia Silverio LPN [facility] 06-14-2025 Miscellaneous Notes Patient needs to contact office. Nidia Silverio LPN documented in this encounter [facility] 05-18-2025 Telephone encounter Note The patient has been identified by name and date of : Yes Caregiver verified no other encounters exist for this prescription request: Yes Caregiver confirmed with patient/requestor that no other refills are due, in the near future, with this provider at this time: Yes The last office visit in the department: 04/16/2025 Does the patient have a future office visit with this provider/department: Yes 06/25/2025 Requested Prescriptions Pending Prescriptions Disp Refills potassium chloride (K-TAB) 10 mEq tablet 90 tablet 1 Sig: Take 1 tablet by mouth daily with breakfast. Take with chaparro Mckeon RN [facility] 05-18-2025 Miscellaneous Notes The patient has been identified by name and date of : Yes Caregiver verified no other encounters exist for this prescription request: Yes Caregiver confirmed with patient/requestor that no other refills are due, in the near future, with this provider at this time: Yes The last office visit in the department: 04/16/2025 Does the patient have a future office visit with this provider/department: Yes 06/25/2025 Requested Prescriptions Pending Prescriptions Disp Refills potassium chloride (K-TAB) 10 mEq tablet 90 tablet 1 Sig: Take 1 tablet by mouth daily with breakfast. Take with chaparro Mckeon RN documented in this encounter [facility] 04-26-2025 Telephone encounter Note The patient has been identified by name and date of : Yes Caregiver verified no other encounters exist for this prescription request: Yes Caregiver confirmed with patient/requestor that no other refills are due, in the near future, with this provider at this time: Yes The last office visit in the department: 04/16/2025 Does the patient have a future office visit with this provider/department: Yes 06/25/2025 Requested Prescriptions Pending Prescriptions Disp Refills pregabalin (LYRICA) 100 mg capsule 60 capsule 0 Sig: Take 1 capsule by mouth two times a day for 180 days. To be taken with 75 mg capsule to total 175 mg twice daily. pregabalin (LYRICA) 75 mg capsule 60 capsule 0 Sig: Take 1 capsule by mouth two times a day for 180 days. Take with 100mg tablet to equal 175mg dose Rhona Lai RN April 26, 2025 8:30 AM [facility] 04-26-2025 Miscellaneous Notes The patient has been identified by name and date of : Yes Caregiver verified no other encounters exist for this prescription request: Yes Caregiver confirmed with patient/requestor that no other refills are due, in the near future, with this provider at this time: Yes The last office visit in the department: 04/16/2025 Does the patient have a future office visit with this provider/department: Yes 06/25/2025 Requested Prescriptions Pending Prescriptions Disp Refills pregabalin (LYRICA) 100 mg capsule 60 capsule 0 Sig: Take 1 capsule by mouth two times a day for 180 days. To be taken with 75 mg capsule to total 175 mg twice daily. pregabalin (LYRICA) 75 mg capsule 60 capsule 0 Sig: Take 1 capsule by mouth two times a day for 180 days. Take with 100mg tablet to equal 175mg dose Rhona Lai RN April 26, 2025 8:30 AM documented in this encounter [facility] 04-16-2025 Instructions Lala Harrison APRN.CNP - 04/16/2025 10:38 AM EDT - Have your blood work and urine tests done today as ordered; this includes checking your cortisol level and your Depakote (valproic acid) level. - Avoid using cotton swabs (Q-tips) in your ears to prevent irritation of the ear canal. - Keep your appointment with Dr. Hackett on Saturday to review your lab results and discuss any medication adjustments. documented in this encounter [facility] 04-16-2025 Note HNO ID: [id number] Author: LALA HARRISON APRN.SOLE INKER Service: ? Author Type: Nurse Practitioner Type: Progress Notes Filed: 04/16/2025 12:21 Note Text: CC: Patient presents with: Recheck: Follow up multiple concerns HPI Irma Stewart is a 65 year old female who presents today for multiple concerns. Has had these concerns ongoing for quite a while and has bee worked up previously. With her mental health and difficulty staying on topic, getting full history difficult to obtain. Recording using [employer] software for draft documentation of the visit was discussed with the patient/authorized patient relations representative; all questions welcomed and answered. Patient/authorized patient relations representative agreed to proceed Paresthesias: - Irma reports buzzing and tingling sensations in the body, legs, and ears x4 years, worsening recently. - Believes symptoms may be related to a pinched nerve or high cortisol levels. - Denies recent illness, injury, fever, chills, cough, or wheezing. Insomnia: - Severe insomnia, with minimal sleep over the past few nights. - Current medications reportedly ineffective for sleep. States psychiatry keeps trying to increase her seroquel but she is unable to breathe if she takes more then what she is taking now. - Expresses fear of not waking up due to medication use. Dizziness: - Persistent dizziness x2 years. - Underwent hearing tests and vertigo therapy with no improvement. - did see ENT a few years ago without causation found Weight Gain: - Irma reports feeling bloated and experiencing weight gain with new stretch long. States all her weight is in her belly which makes her think it is her cortisol level. - Decreased appetite, eating minimally due to stress. DM: - Blood sugar levels described as all over the place, sometimes reaching 200 mg/dL despite not eating. - Believes diabetes may be stress-induced; family history of diabetes. - Has an upcoming appointment with Dr. Hackett to discuss this further Chronic Pain: - Irma reports a pinched nerve in the right back since COVID-19 lockdown. - PMHx of degenerative disc disease and sciatica, with significant pain and limited mobility in the knee. - Pain has been ongoing x5 years, worsening over the past 2 years, with the last 8 months described as hell. Psychiatric Concerns: - Irma reports feeling unable to relax, with tension in the neck and a sense of being in fight or flight mode. - Describes feeling crazy and experiencing visual hallucinations. Saw a jelly fish on the wall as reported by nursing. States her psychiatrist is aware of all of this. - Reports easy bruising and delayed healing of cuts. - Current psychiatric care with [facility]; negative experience reported - Taking Depakote and Seroquel; recent issues with medication management and side effects. - Scheduled to see a new psychiatrist at [facility] in May. Chronic Stress: - Irma reports significant chronic stress due to multiple family losses, including the recent of her stepfather. - Describes a history of being stalked by her brother, leading to legal issues and ongoing stress. - Reports feeling isolated, with no friends and limited family support. - Expresses frustration with being unable to see her grandchildren and feeling misunderstood by her family. 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 KATHY (generalized anxiety disorder) GERD (gastroesophageal reflux disease) Hemorrhage of gastrointestinal tract, unspecified HTN (hypertension) Hypercholesteremia IBS (irritable bowel syndrome) Internal hemorrhoids without mention of complication Intertrigo Irritable bowel syndrome Lumbar radiculopathy Migraine without aura Morbid obesity (HCC) Myalgia and myositis, unspecified Obesity, unspecified OCD (obsessive compulsive disorder) Onychomycosis JAYLYN (obstructive sleep apnea) Osteoarthrosis Other acute reactions to stress Other anxiety states Panic disorder Panic disorder without agoraphobia Pedal edema PMH - PAST MEDICAL HISTORY OF joint pain Pure hypercholesterolemia Sciatica, right side Sleep related bruxism Temporomandibular joint disorders, unspecified TMJ syndrome Unspecified menopausal and postmenopausal disorder Uterine prolapse without mention of v (more content not included)... [facility] 04-16-2025 History of Present illness Narrative CC: Patient presents with: Recheck: Follow up multiple concerns HPI Irma Stewart is a 65 year old female who presents today for multiple concerns. Has had these concerns ongoing for quite a while and has bee worked up previously. With her mental health and difficulty staying on topic, getting full history difficult to obtain. Recording using [employer] software for draft documentation of the visit was discussed with the patient/authorized patient relations representative; all questions welcomed and answered. Patient/authorized patient relations representative agreed to proceed Paresthesias: - Irma reports buzzing and tingling sensations in the body, legs, and ears x4 years, worsening recently. - Believes symptoms may be related to a pinched nerve or high cortisol levels. - Denies recent illness, injury, fever, chills, cough, or wheezing. Insomnia: - Severe insomnia, with minimal sleep over the past few nights. - Current medications reportedly ineffective for sleep. States psychiatry keeps trying to increase her seroquel but she is unable to breathe if she takes more then what she is taking now. - Expresses fear of not waking up due to medication use. Dizziness: - Persistent dizziness x2 years. - Underwent hearing tests and vertigo therapy with no improvement. - did see ENT a few years ago without causation found Weight Gain: - Irma reports feeling bloated and experiencing weight gain with new stretch long. States all her weight is in her belly which makes her think it is her cortisol level. - Decreased appetite, eating minimally due to stress. DM: - Blood sugar levels described as all over the place, sometimes reaching 200 mg/dL despite not eating. - Believes diabetes may be stress-induced; family history of diabetes. - Has an upcoming appointment with Dr. Hackett to discuss this further Chronic Pain: - Irma reports a pinched nerve in the right back since COVID-19 lockdown. - PMHx of degenerative disc disease and sciatica, with significant pain and limited mobility in the knee. - Pain has been ongoing x5 years, worsening over the past 2 years, with the last 8 months described as hell. Psychiatric Concerns: - Irma reports feeling unable to relax, with tension in the neck and a sense of being in fight or flight mode. - Describes feeling crazy and experiencing visual hallucinations. Saw a jelly fish on the wall as reported by nursing. States her psychiatrist is aware of all of this. - Reports easy bruising and delayed healing of cuts. - Current psychiatric care with [facility]; negative experience reported - Taking Depakote and Seroquel; recent issues with medication management and side effects. - Scheduled to see a new psychiatrist at [facility] in May. Chronic Stress: - Irma reports significant chronic stress due to multiple family losses, including the recent of her stepfather. - Describes a history of being stalked by her brother, leading to legal issues and ongoing stress. - Reports feeling isolated, with no friends and limited family support. - Expresses frustration with being unable to see her grandchildren and feeling misunderstood by her family. 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 KATHY (generalized anxiety disorder) GERD (gastroesophageal reflux disease) Hemorrhage of gastrointestinal tract, unspecified HTN (hypertension) Hypercholesteremia IBS (irritable bowel syndrome) Internal hemorrhoids without mention of complication Intertrigo Irritable bowel syndrome Lumbar radiculopathy Migraine without aura Morbid obesity (HCC) Myalgia and myositis, unspecified Obesity, unspecified OCD (obsessive compulsive disorder) Onychomycosis JAYLYN (obstructive sleep apnea) Osteoarthrosis Other acute reactions to stress Other anxiety states Panic disorder Panic disorder without agoraphobia Pedal edema PMH - PAST MEDICAL HISTORY OF joint pain Pure hypercholesterolemia Sciatica, right side Sleep related bruxism Temporomandibular joint disorders, unspecified TMJ syndrome Unspecified menopausal and postmenopausal disorder Uterine prolapse without mention of vaginal wall prolapse Venous insufficiency of both lower extremities Vitamin D deficiency PAST SURGICAL HISTORY Procedure Laterality Date ARTHRP KNE CONDYLE&PLATU MEDIAL&LAT COMPARTMENTS Right 04/19/2010 COLONOSCOPY W/BIOPSY SINGLE/MULTIPLE 04/24/07 EGD 1994 LAPS ABD PRTM&OMENTUM DX W/WO SPEC BR/WA SPX Laparoscopy OTHER SURGICAL HISTORY (PLEASE SPECIFY) HX Spine injections, sees OTHER SURGICAL HISTORY (PLEASE SPECIFY) HX radiofrequency implant for chronic back pain. TONSILLECTOMY PRIMARY/SECONDARY <AGE 13 Tonsillectomy in her 20s TX INGROWN TOENAIL Left VAGINAL HYSTERECTOMY UTERUS 250 GM/< 08/17/1997 Hysterectomy, vaginal ALLERGIES Betadine [Povidone-Iodine], Glimepiride, Haldol [Haloperidol], [place], Metformin, Neurontin [Gabapentin], Penicillins, Tylenol [Acetaminophen], and Victoza [Liraglutide] MEDICATIONS Blood-Glucose Meter monitoring kit Glucose Meter of Choice - Kit - Dx: Type 2 DM - Controlled E11.9 Check sugars 3 times a day blood sugar diagnostic (BLOOD GLUCOSE TEST) test strip Test blood sugar(s) 3 times daily. Dx: Type 2 DM - Controlled E11.9 Insulin: Yes ferrous sulfate 325 mg (65 mg iron) tablet Take 1 tablet by mouth two times a day with meals. furosemide (LASIX) 20 mg tablet Alternate 2 pills with 1 pill daily hydrOXYzine HCl (ATARAX) 25 mg tablet Take 1 tablet by mouth four times a day as needed for anxiety (take at bedtime to help with sleep and during the day if needed for anxiety). insulin glargine-yfgn (SEMGLEE,INSULIN GLARG-YFGN,PEN) 100 unit/mL (3 mL) insulin pen INJECT 30 UNITS SUBCUTANEOUSLY ONCE DAILY Lancets Test blood sugar(s) 3 times daily. Dx: Type 2 DM - Controlled E11.9 Insulin: Yes metFORMIN ER (GLUCOPHAGE XR) 500 mg 24 hr tablet Take 1 tablet by mouth daily with breakfast. metoprolol tartrate, short acting, (LOPRESSOR) 50 mg tablet Take 1 tablet by mouth two times a day. oxybutynin ER (DITROPAN XL) 10 mg 24 hr tablet Take 1 tablet by mouth daily at bedtime. QUEtiapine (SEROQUEL) 100 mg tablet Take 1 tablet by mouth daily at bedtime. rosuvastatin (CRESTOR) 10 mg tablet Take 1 tablet by mouth daily at bedtime. alcohol swabs Apply 1 application to affected area three times a day. ergocalciferol 50,000 unit capsule (VITAMIN D2, DRISDOL) Take 1 capsule by mouth one time a week. pregabalin (LYRICA) 75 mg capsule Take 1 capsule by mouth two times a day for 180 days. Take with 100mg tablet to equal 175mg dose pregabalin (LYRICA) 100 mg capsule Take 1 capsule by mouth two times a day for 180 days. To be taken with 75 mg capsule to total 175 mg twice daily. insulin glargine (LANTUS SOLOSTAR U-100 INSULIN) 100 unit/mL (3 mL) Inject 30 Units subcutaneously once daily. blood sugar diagnostic (BLOOD GLUCOSE TEST) test strip Test blood sugar(s) 3 times daily. Dx: Type 2 DM - Controlled E11.9 Insulin: Yes DULoxetine (CYMBALTA) 40 mg cpDR take 1 capsule by mouth once daily take with 60 milligram capsule TO EQUAL 100 MILLIGRAMS Oral for 30 Days Insulin [place], Disposable, (BD ULTRAFINE III MINI PEN) 31 gauge x 3/16 1 Each two times a day. potassium chloride (K-TAB) 10 mEq tablet Take 1 tablet by mouth daily with breakfast. Take with lasix Lancets Test blood sugar(s) 3 times daily. Dx: Type 2 DM - Controlled E11.9 Insulin: Yes triamcinolone acetonide (KENALOG) 0.5 % cream Apply 1 application to affected area two times a day. For rash/itching. Apply sparingly. Avoid face/skin fold. budesonide-formoterol (SYMBICORT) 160-4.5 mcg/actuation inhaler Inhale 2 Puffs as instructed two times a day. albuterol HFA (PROVENTIL HFA, VENTOLIN HFA) 90 mcg/actuation inhaler Inhale 2 Puffs as instructed every 4 hours as needed. PULSE OXIMETER [facility] Use as needed to monitor oxygen level and heart rate omeprazole (PRILOSEC) 20 mg capsule Take 1 capsule by mouth once daily. divalproex DR (DEPAKOTE) 500 mg EC tablet Take 500 mg by mouth two times a day. DULoxetine 60 mg CDRS Take 60 mg by mouth two times a day. 100 MG by mouth daily ZOLOFT 100 MG TAB Take one (1) and one half (1/2) tablets two (2) times daily. (Patient taking differently: Take 100 mg by mouth two times a day.) FAMILY HISTORY Problem Relation Age of Onset Cancer Mother lymphoma Heart Mother mitral valve prolapse Heart Father x4 bypass Hypertension Father other (1/2 brother) Brother Diabetes Paternal Grandmother Colon Cancer Other maternal aunt other (lupus) Other other (lung cancer) Other Schizophrenia Sister other (CHF) Sister Liver Cancer Sister Social History Tobacco Use Smoking status: Never Smokeless tobacco: Never Vaping Use Vaping status: Never Used Substance Use Topics Alcohol use: Not Currently Drug use: Never PHYSICAL EXAM BP 144/80 Pulse 76 Resp 16 Wt 117 kg (258 lb) SpO2 96% BMI 44.29 kg/m Appearance: well dressed well groomed, tense posture, and pleasant Behavior: erratic Going from happy quickly to crying to anxious Speech: fast and pressured Mood: anxious and depressed Affect: labile Perceptions: hallucinations reported at home, none in visit Thought process: tangential Thought Content: preoccupations with family concerns, then her buzzing in her body, back to family issues, then back to her buzzing Intelligence level: normal Insight: fair in appointment Judgment: fair in appointment Eyes: PERRLA, EOM's intact, conjunctiva pink and moist, no icterus, sclera white, non-injected Neck: Thyroid normal size and symmetric without palpable nodules, Neck supple, No adenopathy Lymph nodes: No cervical lymphadenopathy and No supraclavicular lymphadenopathy Lungs: Lungs clear to auscultation. No wheezing, rhonchi, rales. Heart: RRR without murmur, gallop, or rubs. No ectopy Abdomen: Abdomen soft, non-tender. Bowel sounds normal. No masses, organomegaly Neurological: Gait varying, Negative findings: muscle tone normal, muscle strength normal DATA REVIEWED: No new labs Assessment/Plan 1. Dizziness (R42) - Chronic dizziness for the past two years; previous evaluations including hearing tests and vertigo therapy were inconclusive. - Ordered comprehensive blood work to investigate potential underlying causes including depakote level - follow back up with ENT 2. Tinnitus of both ears (H93.13) As above - Bilateral tinnitus with a sensation of buzzing in the ears. - Otoscopic examination revealed erythema scratch in the right ear canal, likely due to mechanical irritation from Q-tip use. - Advised to avoid inserting objects into the ear canal to prevent further irritation. 3. Controlled type 2 diabetes mellitus without complication, with long-term current use of insulin (HCC) (E11.9) - Blood glucose levels reported as erratic, with readings as high as 200 mg/dL despite minimal oral intake. - Discussed the impact of chronic stress on glycemic control. - Ordered HbA1c to assess long-term glucose control. - Follow-up with Dr. Hackett scheduled for Saturday to review lab results and adjust management as needed. 4. Other chronic pain (G89.29) - Chronic pain attributed to sciatica and degenerative disc disease, exacerbated by prolonged sitting due to wheelchair use. - Noted significant discomfort during physical examination. - Continue current pain management regimen. 5. Weight gain (R63.5) - Recent weight gain with abdominal distension and new-onset striae. - Ordered cortisol level to evaluate for possible [place]'s syndrome; . 6. Paresthesia of bilateral legs (R20.2) - Bilateral leg paresthesia described as tingling and buzzing. - Ordered comprehensive blood work to investigate potential causes, including electrolyte imbalances and neuropathy. 7. Insomnia, unspecified type (G47.00) - Severe insomnia with minimal sleep over the past several nights. - Discussed potential contributing factors, including chronic stress and medication side effects. - Ordered Depakote level to assess for potential toxicity contributing to insomnia. 8. Schizophrenia, unspecified type (HCC) (F20.9) 9. Panic disorder without agoraphobia (F41.0) 10. Medication management (Z79.899) - Current psychiatric management includes Depakote and Seroquel. - Patient reports taking 100 mg of Seroquel despite a prescription for 400 mg due to adverse effects. - Ordered Depakote level to ensure therapeutic dosing. - Patient has an upcoming appointment at [facility] in May for further psychiatric evaluation but needs to continue to see her current psychiatrist until then. - Reviewed concept of neurochemical imbalance [facility] depression/anxiety, treatment options and benefits of counseling in combination with medication. Also reviewed benefits of sleep hygeine, diet and exercise - Instructed patient to contact office or [id number] after-hours promptly should condition worsen or any new symptoms appear. - [facility] and after hours crisis line Prescription instructions reviewed with patient as applicable. Potential red flag symptoms discussed with the patient. Reviewed appropriate action plan to take if red flag symptoms occur. Patient agreeable to treatment plan. Lala Harrison APRN.CNP documented in this encounter [facility] 04-12-2025 Telephone encounter Note Patient calls to request a sooner appointment to be seen for generalized muscle weakness and irritability. Patient reports that she is under a lot of stress with family members passing away (seven in the past year) and has been under the care of psychiatry who tells her it is probably related to an elevated cortisol level. Nurse triage recommends see provider within 2 weeks for chronic fatigue/weakness. Patient is scheduled for next week to see Dr. Hackett. Requests appt this week. Scheduled only available appt. Patient requests to keep the appt on 04/20/2025 and will cancel it after seeing Dr. Hackett unless she feels she needs to keep it. Zaira Garcia RN [facility] 04-12-2025 Miscellaneous Notes Patient calls to request a sooner appointment to be seen for generalized muscle weakness and irritability. Patient reports that she is under a lot of stress with family members passing away (seven in the past year) and has been under the care of psychiatry who tells her it is probably related to an elevated cortisol level. Nurse triage recommends see provider within 2 weeks for chronic fatigue/weakness. Patient is scheduled for next week to see Dr. Hackett. Requests appt this week. Scheduled only available appt. Patient requests to keep the appt on 04/20/2025 and will cancel it after seeing Dr. Hackett unless she feels she needs to keep it. Zaira Garcia RN documented in this encounter [facility] 04-05-2025 Telephone encounter Note Left message for return call. [facility] 04-05-2025 Miscellaneous Notes Left message for return call. Meds sent as requested but this needs double checked and verified as there was lasix sent but no potassium..... is she no longer on potassium? I also did not send omeprazole as requested as we have not refilled this since 2022. Please call land verify with patient or the exact medications that needed sent and update with any needed changes. Thank you Lala Harrison APRN.SOLE [employer]KER Patient's significant other calls and states that [facility] told him that they cannot get a hold of [facility] due to phones being too busy. Significant other asking if medications can be sent to [facility] [place]? Patient is need new meter and test strips since insurance will not cover previously order meter and test strips. The patient has been identified by name and date of : Yes Caregiver verified no other encounters exist for this prescription request: Yes Caregiver confirmed with patient/requestor that no other refills are due, in the near future, with this provider at this time: Yes The last office visit in the department: 11/10/2024 Does the patient have a future office visit with this provider/department: Yes 04/20/2025 Requested Prescriptions Pending Prescriptions Disp Refills Blood-Glucose Meter monitoring kit 1 each 0 Sig: Glucose Meter of Choice - Kit - Dx: Type 2 DM - Controlled E11.9 Check sugars 3 times a day blood sugar diagnostic (BLOOD GLUCOSE TEST) test strip 50 strip 11 Sig: Test blood sugar(s) 3 times daily. Dx: Type 2 DM - Controlled E11.9 Insulin: Yes ferrous sulfate 325 mg (65 mg iron) tablet 60 tablet 11 Sig: Take 1 tablet by mouth two times a day with meals. furosemide (LASIX) 20 mg tablet 45 tablet 2 Sig: Alternate 2 pills with 1 pill daily hydrOXYzine HCl (ATARAX) 25 mg tablet 30 tablet 2 Sig: Take 1 tablet by mouth four times a day as needed for anxiety (take at bedtime to help with sleep and during the day if needed for anxiety). insulin glargine-yfgn (SEMGLEE,INSULIN GLARG-YFGN,PEN) 100 unit/mL (3 mL) insulin pen 15 mL 3 Sig: INJECT 30 UNITS SUBCUTANEOUSLY ONCE DAILY Lancets 100 each 0 Sig: Test blood sugar(s) 3 times daily. Dx: Type 2 DM - Controlled E11.9 Insulin: Yes metFORMIN ER (GLUCOPHAGE XR) 500 mg 24 hr tablet 30 tablet 11 Sig: Take 1 tablet by mouth daily with breakfast. metoprolol tartrate, short acting, (LOPRESSOR) 50 mg tablet 180 tablet 3 Sig: Take 1 tablet by mouth two times a day. omeprazole (PRILOSEC) 20 mg capsule 30 capsule 0 Sig: Take 1 capsule by mouth once daily. oxybutynin ER (DITROPAN XL) 10 mg 24 hr tablet 30 tablet 5 Sig: Take 1 tablet by mouth daily at bedtime. QUEtiapine (SEROQUEL) 100 mg tablet 90 tablet 0 Sig: Take 1 tablet by mouth daily at bedtime. rosuvastatin (CRESTOR) 10 mg tablet 90 tablet 3 Sig: Take 1 tablet by mouth daily at bedtime. alcohol swabs 100 each 11 Sig: Apply 1 application to affected area three times a day. ergocalciferol 50,000 unit capsule (VITAMIN D2, DRISDOL) 12 capsule 1 Sig: Take 1 capsule by mouth one time a week. Rhona Lai RN March 30, 2025 11:05 AM documented in this encounter [facility] 04-01-2025 Telephone encounter Note Meds sent as requested but this needs double checked and verified as there was lasix sent but no potassium..... is she no longer on potassium? I also did not send omeprazole as requested as we have not refilled this since 2022. Please call land verify with patient or the exact medications that needed sent and update with any needed changes. Thank you Lala Harrison APRN.MICHAEL [facility] 03-30-2025 Telephone encounter Note Patient's significant other calls and states that [facility] told him that they cannot get a hold of [facility] due to phones being too busy. Significant other asking if medications can be sent to [facility] [place]? Patient is need new meter and test strips since insurance will not cover previously order meter and test strips. The patient has been identified by name and date of : Yes Caregiver verified no other encounters exist for this prescription request: Yes Caregiver confirmed with patient/requestor that no other refills are due, in the near future, with this provider at this time: Yes The last office visit in the department: 11/10/2024 Does the patient have a future office visit with this provider/department: Yes 04/20/2025 Requested Prescriptions Pending Prescriptions Disp Refills Blood-Glucose Meter monitoring kit 1 each 0 Sig: Glucose Meter of Choice - Kit - Dx: Type 2 DM - Controlled E11.9 Check sugars 3 times a day blood sugar diagnostic (BLOOD GLUCOSE TEST) test strip 50 strip 11 Sig: Test blood sugar(s) 3 times daily. Dx: Type 2 DM - Controlled E11.9 Insulin: Yes ferrous sulfate 325 mg (65 mg iron) tablet 60 tablet 11 Sig: Take 1 tablet by mouth two times a day with meals. furosemide (LASIX) 20 mg tablet 45 tablet 2 Sig: Alternate 2 pills with 1 pill daily hydrOXYzine HCl (ATARAX) 25 mg tablet 30 tablet 2 Sig: Take 1 tablet by mouth four times a day as needed for anxiety (take at bedtime to help with sleep and during the day if needed for anxiety). insulin glargine-yfgn (SEMGLEE,INSULIN GLARG-YFGN,PEN) 100 unit/mL (3 mL) insulin pen 15 mL 3 Sig: INJECT 30 UNITS SUBCUTANEOUSLY ONCE DAILY Lancets 100 each 0 Sig: Test blood sugar(s) 3 times daily. Dx: Type 2 DM - Controlled E11.9 Insulin: Yes metFORMIN ER (GLUCOPHAGE XR) 500 mg 24 hr tablet 30 tablet 11 Sig: Take 1 tablet by mouth daily with breakfast. metoprolol tartrate, short acting, (LOPRESSOR) 50 mg tablet 180 tablet 3 Sig: Take 1 tablet by mouth two times a day. omeprazole (PRILOSEC) 20 mg capsule 30 capsule 0 Sig: Take 1 capsule by mouth once daily. oxybutynin ER (DITROPAN XL) 10 mg 24 hr tablet 30 tablet 5 Sig: Take 1 tablet by mouth daily at bedtime. QUEtiapine (SEROQUEL) 100 mg tablet 90 tablet 0 Sig: Take 1 tablet by mouth daily at bedtime. rosuvastatin (CRESTOR) 10 mg tablet 90 tablet 3 Sig: Take 1 tablet by mouth daily at bedtime. alcohol swabs 100 each 11 Sig: Apply 1 application to affected area three times a day. ergocalciferol 50,000 unit capsule (VITAMIN D2, DRISDOL) 12 capsule 1 Sig: Take 1 capsule by mouth one time a week. Rhona Lai RN March 30, 2025 11:05 AM [facility] 03-25-2025 Telephone encounter Note PDMP website checked and validated. All prescriptions have been APPROPRIATELY filled. No suspicious activity was identified. 03/25/2025 by Lala Harrison APRN.MICHAEL [facility] 03-25-2025 Miscellaneous Notes PDMP website checked and validated. All prescriptions have been APPROPRIATELY filled. No suspicious activity was identified. 03/25/2025 by Lala Harrison APRN.CNP Patient calling switching pharmacy from [facility] to [facility] pharmacy. She could not transfer the Pregabalin rx needs new rx sent to new pharmacy. Patient said last filled on 02/13/2025. Please advise The patient has been identified by name and date of : Yes Caregiver verified no other encounters exist for this prescription request: Yes Caregiver confirmed with patient/requestor that no other refills are due, in the near future, with this provider at this time: Yes The last office visit in the department: 11/10/2024 Does the patient have a future office visit with this provider/department: Yes 04/20/2025 Requested Prescriptions Pending Prescriptions Disp Refills pregabalin (LYRICA) 75 mg capsule 60 capsule 5 Sig: Take 1 capsule by mouth two times a day for 180 days. Take with 100mg tablet to equal 175mg dose pregabalin (LYRICA) 100 mg capsule 60 capsule 4 Sig: Take 1 capsule by mouth two times a day for 180 days. To be taken with 75 mg capsule to total 175 mg twice daily. Mary Lou Pablo LPN March 24, 2025 4:20 PM documented in this encounter [facility] 03-24-2025 Telephone encounter Note Patient calling switching pharmacy from [place] to [facility] pharmacy. She could not transfer the Pregabalin rx needs new rx sent to new pharmacy. Patient said last filled on 02/13/2025. Please advise The patient has been identified by name and date of : Yes Caregiver verified no other encounters exist for this prescription request: Yes Caregiver confirmed with patient/requestor that no other refills are due, in the near future, with this provider at this time: Yes The last office visit in the department: 11/10/2024 Does the patient have a future office visit with this provider/department: Yes 04/20/2025 Requested Prescriptions Pending Prescriptions Disp Refills pregabalin (LYRICA) 75 mg capsule 60 capsule 5 Sig: Take 1 capsule by mouth two times a day for 180 days. Take with 100mg tablet to equal 175mg dose pregabalin (LYRICA) 100 mg capsule 60 capsule 4 Sig: Take 1 capsule by mouth two times a day for 180 days. To be taken with 75 mg capsule to total 175 mg twice daily. Mary Lou Pablo LPN March 24, 2025 4:20 PM [facility] 03-09-2025 Note Patient Outreach (IN TMWS) IRMA STEWART ([id number]) 1960 F Date Time Provider Department 03/09/25 MONIK HACKETT During your visit today, we recorded the following information about you: Allergies As of Date: 03/09/2025 Noted Allergy Reaction BETADINE (POVIDONE-IODINE) 03/13/2007 16 - Unknown GLIMEPIRIDE 08/01/2020 5 - Intolerance Comments: Diarrhea HALDOL (HALOPERIDOL) 08/01/2020 14 - Other: See Comments Comments: Headache/hallucinations LITHIUM 08/01/2020 14 - Other: See Comments Comments: Hallucinations METFORMIN 08/01/2020 6 - Diarrhea NEURONTIN (GABAPENTIN) 08/01/2020 5 - Intolerance Comments: felt poorly PENICILLINS 03/13/2007 16 - Unknown Comments: Okay to take amoxil TYLENOL (ACETAMINOPHEN) 07/14/2020 5 - Intolerance VICTOZA (LIRAGLUTIDE) 08/01/2020 8 - GI Upset Date Reviewed: 11/10/2024 Reviewed by: Amira Fisher LPN - Fully Assessed Visit Diagnosis:Encounter for screening mammogram for breast cancer [Z12.31] Order(s):[facility] [[id number]] Order #: [id number] FUTURE Prescriptions as of 04/09/2025 - Blood-Glucose Meter monitoring kit Glucose Meter of Choice - Kit - Dx: Type 2 DM - Controlled E11.9 Check sugars 3 times a day - blood sugar diagnostic (BLOOD GLUCOSE TEST) test strip Test blood sugar(s) 3 times daily. Dx: Type 2 DM - Controlled E11.9 Insulin: Yes - ferrous sulfate 325 mg (65 mg iron) tablet Take 1 tablet by mouth two times a day with meals. - furosemide (LASIX) 20 mg tablet Alternate 2 pills with 1 pill daily - hydrOXYzine HCl (ATARAX) 25 mg tablet Take 1 tablet by mouth four times a day as needed for anxiety (take at bedtime to help with sleep and during the day if needed for anxiety). - insulin glargine-yfgn (SEMGLEE,INSULIN GLARG-YFGN,PEN) 100 unit/mL (3 mL) insulin pen INJECT 30 UNITS SUBCUTANEOUSLY ONCE DAILY - Lancets Test blood sugar(s) 3 times daily. Dx: Type 2 DM - Controlled E11.9 Insulin: Yes - metFORMIN ER (GLUCOPHAGE XR) 500 mg 24 hr tablet Take 1 tablet by mouth daily with breakfast. - metoprolol tartrate, short acting, (LOPRESSOR) 50 mg tablet Take 1 tablet by mouth two times a day. - oxybutynin ER (DITROPAN XL) 10 mg 24 hr tablet Take 1 tablet by mouth daily at bedtime. - QUEtiapine (SEROQUEL) 100 mg tablet Take 1 tablet by mouth daily at bedtime. - rosuvastatin (CRESTOR) 10 mg tablet Take 1 tablet by mouth daily at bedtime. - alcohol swabs Apply 1 application to affected area three times a day. - ergocalciferol 50,000 unit capsule (VITAMIN D2, DRISDOL) Take 1 capsule by mouth one time a week. - pregabalin (LYRICA) 75 mg capsule Take 1 capsule by mouth two times a day for 180 days. Take with 100mg tablet to equal 175mg dose - pregabalin (LYRICA) 100 mg capsule Take 1 capsule by mouth two times a day for 180 days. To be taken with 75 mg capsule to total 175 mg twice daily. - insulin glargine (LANTUS SOLOSTAR U-100 INSULIN) 100 unit/mL (3 mL) Inject 30 Units subcutaneously once daily. - blood sugar diagnostic (BLOOD GLUCOSE TEST) test strip Test blood sugar(s) 3 times daily. Dx: Type 2 DM - Controlled E11.9 Insulin: Yes - DULoxetine (CYMBALTA) 40 mg cpDR take 1 capsule by mouth once daily take with 60 milligram capsule TO EQUAL 100 MILLIGRAMS Oral for 30 Days - Insulin [place], Disposable, (BD ULTRAFINE III MINI PEN) 31 gauge x 3/16 1 Each two times a day. - potassium chloride (K-TAB) 10 mEq tablet Take 1 tablet by mouth daily with breakfast. Take with lasix - Lancets Test blood sugar(s) 3 times daily. Dx: Type 2 DM - Controlled E11.9 Insulin: Yes - triamcinolone acetonide (KENALOG) 0.5 % cream Apply 1 application to affected area two times a day. For rash/itching. Apply sparingly. Avoid face/skin fold. - budesonide-formoterol (SYMBICORT) 160-4.5 mcg/actuation inhaler Inhale 2 Puffs as instructed two times a day. - albuterol HFA (PROVENTIL HFA, VENTOLIN HFA) 90 mcg/actuation inhaler Inhale 2 Puffs as instructed every 4 hours as needed. - PULSE OXIMETER [facility] Use as needed to monitor oxygen level and heart rate - omeprazole (PRILOSEC) 20 mg capsule Take 1 capsule by mouth once daily. - divalproex DR (DEPAKOTE) 500 mg EC tablet Take 500 mg by mouth two times a day. - DULoxetine 60 mg CDRS Take 60 mg by mouth two times a day. 100 MG by mouth daily - ZOLOFT 100 MG TAB Take one (1) and one half (1/2) tablets two (2) times daily. Problem List As Of Date 03/09/2025 Noted Resolved Abdominal pain, unspecified site [R10.9] 10/15/2006 12/07/2020 ESOPHAGEAL REFLUX [K21.9] 10/15/2006 Moderate episode of recurrent major depressive *10/15/2006 PANIC DISORDER WITHOUT AGORAPHOBIA [F41.0] 10/15/2006 SOMATIZATION DISORDER [F45.0] 10/15/2006 IRRITABLE COLON [K58.9] 10/15/2006 HYPERLIPIDEMIA NEC/NOS [E78.5] 10/24/2006 Schizophrenia (HCC) [F20.9] Other mixed anxiety disorders [ (more content not included)... [facility] 03-07-2025 Telephone encounter Note 3 attempts made and my chart sent [facility] 03-07-2025 Miscellaneous Notes 3 attempts made and my chart sent ATC but no answer and voicemail full. [employer] message sent. Rhona Thomas ATC patient but no answer and voicemail is full. Should patient call, please schedule sleep medicine consult and notify patient that she can discuss the stress echo with her PCP at her next office visit on 03/19/25. Stress test was ordered a year ago by me, not completed due to insurance per record review in [facility]. Sleep medicine order was from Dr. Camila Johns. I placed an order or sleep medicine consult.Please schedule Since it has been a year since the stress test was ordered recommend she review the need for that at her visit with Monik Hackett MD this month. Patient requesting orders for: 1) Referral for Sleep Medicine. (Pt reports an order was previously placed, but this nurse unable to locate). 2) Updated order for Stress Echo Dobutamine. Previous order . Please call patient with an update. Gely Mckeon RN documented in this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 one 40 mg capsule daily. Phoned back and told him he needs to check with them for rx's. Pending other rx patient is needing. Please advise The patient has been identified by name and date of : Yes Caregiver verified no other encounters exist for this prescription request: Yes Caregiver confirmed with patient/requestor that no other refills are due, in the near future, with this provider at this time: Yes The last office visit in the department: 05/06/2024 Does the patient have a future office visit with this provider/department: Yes 07/29/2024 Requested Prescriptions Pending Prescriptions Disp Refills pregabalin (LYRICA) 100 mg capsule 60 capsule 4 Sig: Take 1 capsule by mouth two times a day for 180 days. To be taken with 75 mg capsule to total 175 mg twice daily. blood sugar diagnostic (BLOOD GLUCOSE TEST) test strip 50 Strip 2 Sig: Test blood sugar(s) 3 times daily. Dx: Type 2 DM - Controlled E11.9 Insulin: Yes Mary Lou Pablo LPN June 26, 2024 2:31 PM documented in this encounter [facility] 06-23-2024 Telephone encounter Note Spoke with pt and information listed below given. Pt verbalizes understanding. Romi Pandya LPN [facility] 06-23-2024 Miscellaneous Notes Spoke with pt and information listed below given. Pt verbalizes understanding. Romi Pandya LPN Due for vit d level. Order is placed. Thank you Lala Harrison APRN.[facility] Pharmacy is asking for a 90 day supply. Patient has been identified by name and date of : Yes Patient phones for refill(s): Requested Prescriptions Pending Prescriptions Disp Refills ergocalciferol 50,000 unit capsule (VITAMIN D2, DRISDOL) [Pharmacy Med Name: VITAMIN D2 1.25MG(50,000 UNIT)] 18 capsule 2 Sig: TAKE 1 TABLET BY MOUTH TWICE WEEKLY [id number], THEN DECREASE TO 1 TABLET WEEKLY DIRECTED. Date of last office visit in primary care: 05/06/2024 Date of next office visit in primary care: 06/26/2024 Please advise. Thank you. Nidia Silverio LPN. documented in this encounter [facility] 06-18-2024 Telephone encounter Note Due for vit d level. Order is placed. Thank you Lala Harrison APRN.[employer] [facility] 06-18-2024 Telephone encounter Note Pharmacy is asking for a 90 day supply. Patient has been identified by name and date of : Yes Patient phones for refill(s): Requested Prescriptions Pending Prescriptions Disp Refills ergocalciferol 50,000 unit capsule (VITAMIN D2, DRISDOL) [Pharmacy Med Name: VITAMIN D2 1.25MG(50,000 UNIT)] 18 capsule 2 Sig: TAKE 1 TABLET BY MOUTH TWICE WEEKLY [id number], THEN DECREASE TO 1 TABLET WEEKLY DIRECTED. Date of last office visit in primary care: 05/06/2024 Date of next office visit in primary care: 06/26/2024 Please advise. Thank you. Nidia Silverio LPN. [facility] 06-12-2024 Telephone encounter Note Patient MyChart message requesting the following refill Refill(s) Requested: Requested Prescriptions Pending Prescriptions Disp Refills insulin glargine-yfgn (SEMGLEE,INSULIN GLARG-YFGN,PEN) 100 unit/mL (3 mL) insulin pen 15 mL 3 ALLERGIES Allergen Reactions Betadine [Povidone-* Unknown Glimepiride Intolerance Diarrhea Haldol [Haloperidol] Other: See Comments Headache/hallucinations [place] Other: See Comments Hallucinations Metformin Diarrhea Neurontin [Gabapent* Intolerance felt poorly Penicillins Unknown Okay to take amoxil Tylenol [Acetaminop* Intolerance Victoza [Liraglutid* GI Upset (cell) Last Office Visit Date: 05/06/2024 Last Distance Health Visit: Visit date not found Future Appointment: 06/17/2024 The patients preferred pharmacy has been captured for this encounter? yes Request is for script(s) to be escript to pharmacy. Yudith Rodriguez LPN [facility] 06-12-2024 Miscellaneous Notes Patient MyChart message requesting the following refill Refill(s) Requested: Requested Prescriptions Pending Prescriptions Disp Refills insulin glargine-yfgn (SEMGLEE,INSULIN GLARG-YFGN,PEN) 100 unit/mL (3 mL) insulin pen 15 mL 3 ALLERGIES Allergen Reactions Betadine [Povidone-* Unknown Glimepiride Intolerance Diarrhea Haldol [Haloperidol] Other: See Comments Headache/hallucinations [place] Other: See Comments Hallucinations Metformin Diarrhea Neurontin [Gabapent* Intolerance felt poorly Penicillins Unknown Okay to take amoxil Tylenol [Acetaminop* Intolerance Victoza [Liraglutid* GI Upset (cell) Last Office Visit Date: 05/06/2024 Last Distance Health Visit: Visit date not found Future Appointment: 06/17/2024 The patients preferred pharmacy has been captured for this encounter? yes Request is for script(s) to be escript to pharmacy. Yudith Rodriguez LPN documented in this encounter [facility] 06-01-2024 Telephone encounter Note Patient has been identified by name and date of : Patient phones for refill(s): Requested Prescriptions Pending Prescriptions Disp Refills metoprolol tartrate, short acting, (LOPRESSOR) 50 mg tablet 180 tablet 1 Sig: Take 1 tablet by mouth two times a day. Date of last office visit in primary care: 05/06/24 Date of next office visit in primary care: Visit date not found Please advise. Thank you. Heydi Braswell LPN. Rx needs sent to [facility]. Sumit Schaffer won't give refill. [facility] 06-01-2024 Miscellaneous Notes Patient has been identified by name and date of : Patient phones for refill(s): Requested Prescriptions Pending Prescriptions Disp Refills metoprolol tartrate, short acting, (LOPRESSOR) 50 mg tablet 180 tablet 1 Sig: Take 1 tablet by mouth two times a day. Date of last office visit in primary care: 05/06/24 Date of next office visit in primary care: Visit date not found Please advise. Thank you. Heydi Braswell LPN. Rx needs sent to [facility]. Sumit Schaffer won't give refill. documented in this encounter [facility] 05-08-2024 Telephone encounter Note Patient notified of providers message and verbalized understanding. [facility] 05-08-2024 Miscellaneous Notes Patient notified of providers message and verbalized understanding. Please let her know that insurance is asking for more information regarding the stress test. We will submit more information however she should check for insurance coverage before completing the test. Peer to peer completed today, physician reviewer says that the note needs to indicate that she cannot complete 4 METS of activity. Will update note and send in today. documented in this encounter [facility] 05-08-2024 Telephone encounter Note Please let her know that insurance is asking for more information regarding the stress test. We will submit more information however she should check for insurance coverage before completing the test. Peer to peer completed today, physician reviewer says that the note needs to indicate that she cannot complete 4 METS of activity. Will update note and send in today. [facility] 05-06-2024 Instructions Lala Harrison APRN.CNP - 05/06/2024 5:33 PM EDT Check blood sugar fasting first thing when waking up and 2 hours after a meal documented in this encounter [facility] 05-06-2024 History of Present illness Narrative CC: Patient presents with: Recheck: 6 month follow up HPI Irma Stewart is a 64 year old female who presents today for routine follow but has seen multiple providers and had different testing for ongoing chest pain and SOB. Ongoing chest pain and shortness of breath on exertion. Uses 2L of oxygen at all times now and follows with pulmonology. Is awaiting stress test which is scheduled for the of this month. Reports she is feeling better since using the oxygen all the time. DIABETES MELLITUS: Ms. Stewart denies excessive thirst or increased frequency of urination, numbness, tingling or pain in extremities, new or unusual visual symptoms, low sugar/hypoglycemic reactions, weight loss/gain, lightheadedness/dizziness, and bowel changes/loose stools. Follows a diabetic diet some of the time and only eats once a day. She reports checking her glucose on a twice a day schedule with sugars in the 120s-200s range Takes her insulin but unsure if she is taking it correctly and checking her blood sugar not always fasting or 2 hours after her meal. Sometimes takes lantus twice a day because of high blood sugars. Stopped her metformin due to she felt it was giving her diarrhea but noticed pharmacy accidentally gave her regular versus XR version. 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 KATHY (generalized anxiety disorder) GERD (gastroesophageal reflux disease) Hemorrhage of gastrointestinal tract, unspecified HTN (hypertension) Hypercholesteremia IBS (irritable bowel syndrome) Internal hemorrhoids without mention of complication Intertrigo Irritable bowel syndrome Lumbar radiculopathy Migraine without aura Morbid obesity (HCC) Myalgia and myositis, unspecified Obesity, unspecified OCD (obsessive compulsive disorder) Onychomycosis JAYLYN (obstructive sleep apnea) Osteoarthrosis Other acute reactions to stress Other anxiety states Panic disorder Panic disorder without agoraphobia Pedal edema PMH - PAST MEDICAL HISTORY OF joint pain Pure hypercholesterolemia Sciatica, right side Sleep related bruxism Temporomandibular joint disorders, unspecified TMJ syndrome Unspecified menopausal and postmenopausal disorder Uterine prolapse without mention of vaginal wall prolapse Venous insufficiency of both lower extremities Vitamin D deficiency PAST SURGICAL HISTORY Procedure Laterality Date ARTHRP KNE CONDYLE&PLATU MEDIAL&LAT COMPARTMENTS Right 04/19/2010 COLONOSCOPY W/BIOPSY SINGLE/MULTIPLE 04/24/07 EGD 1994 LAPS ABD PRTM&OMENTUM DX W/WO SPEC BR/WA SPX Laparoscopy OTHER SURGICAL HISTORY (PLEASE SPECIFY) HX Spine injections, sees OTHER SURGICAL HISTORY (PLEASE SPECIFY) HX radiofrequency implant for chronic back pain. TONSILLECTOMY PRIMARY/SECONDARY <AGE 13 Tonsillectomy in her 20s TX INGROWN TOENAIL Left VAGINAL HYSTERECTOMY UTERUS 250 GM/< 08/17/1997 Hysterectomy, vaginal ALLERGIES Betadine [Povidone-Iodine], Glimepiride, Haldol [Haloperidol], [place], Metformin, Neurontin [Gabapentin], Penicillins, Tylenol [Acetaminophen], and Victoza [Liraglutide] MEDICATIONS Lancets Test blood sugar(s) 3 times daily. Dx: Type 2 DM - Controlled E11.9 Insulin: Yes furosemide (LASIX) 20 mg tablet Alternate 2 pills with 1 pill daily pregabalin (LYRICA) 75 mg capsule Take 1 capsule by mouth two times a day for 180 days. Take with 100mg tablet to equal 175mg dose metoprolol tartrate, short acting, (LOPRESSOR) 50 mg tablet Take 1 tablet by mouth two times a day. insulin glargine (LANTUS SOLOSTAR U-100 INSULIN) 100 unit/mL (3 mL) Inject 30 Units subcutaneously once daily. PARoxetine (PAXIL) 10 mg tablet Take 1 tablet by mouth once daily. for hot flashes metFORMIN ER (GLUCOPHAGE XR) 500 mg 24 hr tablet Take 1 tablet by mouth daily with breakfast. triamcinolone acetonide (KENALOG) 0.5 % cream Apply 1 application to affected area two times a day. For rash/itching. Apply sparingly. Avoid face/skin fold. celecoxib (CELEBREX) 200 mg capsule Take 1 capsule by mouth once daily. For neck pain ergocalciferol 50,000 unit capsule (VITAMIN D2, DRISDOL) Take 1 capsule by mouth one time a week. TO BE TAKEN ORALLY DIRECTED. Take 1 tablet by mouth twice weekly [id number], then decrease to 1 tablet weekly. oxybutynin ER (DITROPAN XL) 10 mg 24 hr tablet Take 1 tablet by mouth daily at bedtime. budesonide-formoterol (SYMBICORT) 160-4.5 mcg/actuation inhaler Inhale 2 Puffs as instructed two times a day. albuterol HFA (PROVENTIL HFA, VENTOLIN HFA) 90 mcg/actuation inhaler Inhale 2 Puffs as instructed every 4 hours as needed. ferrous sulfate 325 mg (65 mg iron) tablet Take 1 tablet by mouth two times a day with meals. alcohol swabs Apply 1 application to affected area three times a day. (Patient taking differently: Apply 1 application to affected area three times a day. Takes blood sugar twice daily) Insulin [place], Disposable, (BD ULTRAFINE III MINI PEN) 31 gauge x 3/16 1 Each two times a day. rosuvastatin (CRESTOR) 10 mg tablet Take 1 tablet by mouth daily at bedtime. pregabalin (LYRICA) 100 mg capsule Take 1 capsule by mouth two times a day for 180 days. To be taken with 75 mg capsule to total 175 mg twice daily. PULSE OXIMETER CONTEC Use as needed to monitor oxygen level and heart rate Blood Pressure Monitor Check daily (Patient taking differently: Check daily Does not check daily) potassium chloride (K-TAB) 10 mEq tablet Take 1 tablet by mouth daily with breakfast. Take with lasix omeprazole (PRILOSEC) 20 mg capsule Take 1 capsule by mouth once daily. SEMGLEE,INSULIN GLARG-YFGN,PEN 100 unit/mL (3 mL) insulin pen INJECT 30 UNITS SUBCUTANEOUSLY ONCE DAILY blood sugar diagnostic (BLOOD GLUCOSE TEST) test strip Test blood sugar(s) 3 times daily. Dx: Type 2 DM - Controlled E11.9 Insulin: Yes (Patient taking differently: Test blood sugar(s) 3 times daily. Dx: Type 2 DM - Controlled E11.9 Insulin: Yes Takes blood sugar twice daily) Lancets lancets Test blood sugar(s) 3 times daily. Dx: Type 2 DM - Controlled E11.9 Insulin: Yes (Patient taking differently: Test blood sugar(s) 3 times daily. Dx: Type 2 DM - Controlled E11.9 Insulin: Yes Takes blood sugar twice daily) divalproex DR (DEPAKOTE) 500 mg EC tablet Take 750 mg by mouth once daily. Daily in AM, extended release 500 MG by mouth twice daily DULoxetine 60 mg CDRS Take 60 mg by mouth two times a day. 100 MG by mouth daily QUEtiapine (SEROQUEL) 100 mg tablet Take 100 mg by mouth daily at bedtime. ZOLOFT 100 MG TAB Take one (1) and one half (1/2) tablets two (2) times daily. FAMILY HISTORY Problem Relation Age of Onset Cancer Mother lymphoma Heart Mother mitral valve prolapse Heart Father x4 bypass Hypertension Father other (1/2 brother) Brother Diabetes Paternal Grandmother Colon Cancer Other maternal aunt other (lupus) Other other (lung cancer) Other Schizophrenia Sister other (CHF) Sister Liver Cancer Sister Social History Tobacco Use Smoking status: Never Smokeless tobacco: Never Vaping Use Vaping Use: Never used Substance Use Topics Alcohol use: Not Currently Drug use: Never PHYSICAL EXAM BP 122/80 Pulse 80 Resp 16 Wt 118.8 kg (262 lb) SpO2 93% BMI 44.97 kg/m General Appearance: well appearing, in no acute distress, alert Eyes: conjunctiva pink and moist, no icterus, sclera white, non-injected Lungs: Lungs clear to auscultation. No wheezing, rhonchi, rales. Heart: RRR without murmur, gallop, or rubs. No ectopy Health maintenance reviewed with patient: Diabetic Foot Exam Never done Cervical Cancer Screening Never done Colorectal Cancer Screening Never done Mammogram Screening due on 05/20/2007 Shingrix Vaccine(1 of 2) Never done RSV Vaccine(1 - 1-dose 60+ series) Never done Covid-19 Vaccine(3 - 2023-24 season) due on 06/28/2023 Dilated Retinal Exam due on 07/31/2023 Influenza Vaccine(1) due on 06/28/2024 Urine Albumin:Creatinine Ratio due on 08/09/2024 HbA1C due on 08/29/2024 LDL Cholesterol due on 11/04/2024 Annual PCP Team Chronic Disease Visit due on 05/06/2025 DTaP,Tdap,Td Vaccine(3 - Td or Tdap) due on 10/02/2031 Spirometry Completed Pneumococcal Vaccine Completed Hepatitis C Screening Discontinued HIV Screening Discontinued DATA REVIEWED: Most recent labs and imaging results. ASSESSMENT/PLAN: 1. Controlled type 2 diabetes mellitus without complication, with long-term current use of insulin (HCC) - ICD9: 250.00, V58.67, ICD10: E11.9, Z79.4 (primary diagnosis) - Uncontrolled - Continue current medications as ordered. Restart the metformin ER once a day and check glucose appropriately - see patient instructions - with patient reporting she eats only once a day and typically is not healthy options, she would benefit greatly for dietary education. - Blood glucose monitoring on a once daily schedule - Counseled on healthy diet and regular exercise - Discussed need for and benefit of weight loss. BMI 44.97 kg/(m^2) - ENDOCRINOLOGY DIETITIAN VISIT (MNT) 2. Chest pain, unspecified type - ICD9: 786.50, ICD10: R07.9 Stable Continue with scheduled stress test 3. SOBOE (shortness of breath on exertion) - ICD9: 786.05, ICD10: R06.02 Improved with oxygen. Continue with recommendations and orders by pulmonoloyg Continue with stress test as ordered. Prescription instructions reviewed with patient as applicable. Potential red flag symptoms discussed with the patient. Reviewed appropriate action plan to take if red flag symptoms occur. Patient agreeable to treatment plan. Lala Harrison APRN.CNP documented in this encounter [facility] 04-29-2024 Instructions Ashley Venegas APRN.CNP - 04/29/2024 2:22 PM EDT Budesonide-formoterol (Symbicort) 160-4.5 MCG 2 puffs twice daily with spacer. Rinse mouth after every use. Use this inhaler no matter what. This is your maintenance inhaler. Albuterol is used every 4 hours but only as needed. Symptoms include shortness of breath, wheezing or chest tightness. Schedule appointment for sleep study. Exercise as able to help with weight loss. documented in this encounter [facility] 04-29-2024 Procedure note FENO:Patient was unable to perform test to obtain a result. Several attempts made. [facility] 04-29-2024 Procedure note FENO:Patient was unable to perform test to obtain a result. Several attempts made. documented in this encounter [facility] 04-29-2024 Nurse Note Intake information documented in the prior visit with ALESSANDRO Velasquez today. [facility] 04-29-2024 Nurse Note Intake information documented in the prior visit with ALESSANDRO Velasquez today. documented in this encounter [facility] 04-29-2024 History of Present illness Narrative Images from the original note were not included. Pulmonary Medicine Patients name: Irma Stewart PCP: Monik Hackett MD CC: follow-up hypoxemia HPI: Irma Stewart is a 64 year old female has a past medical history never smoker, morbid obesity, Allergic rhinitis, bipolar disorder, anxiety disorder with panic attacks, GERD, HTN, HLD, and migraines. She was first seen by Dr. Johns in December 2023 for chronic hypoxemia with complaints of severe dyspnea on exertion. She has been on O2 since 2009. Most recent oximetry continues to show needing 2L NC. Following her last visit, she was referred to sleep medicine for evaluation. She also had an echo which showed 2+ MR but was otherwise normal. PA pressures were normal. Current inhaler therapy includes Symbicort 160 and PRN Albuterol. Today, she reports she only used the Symbicort for a few days before stopping because she didn't like the taste. She reports SOB is still significant and notes she is dyspneic walking from one room to another at home. Heat exacerbates her breathing. It is difficult to exercise d/t SOB. The few days she used the Symbicort, she noted improvement in her breathing. She has a rare dry cough. Occasional wheezing. No fevers, chills, or night sweats. Mild lower extremity edema. No GERD/heartburn. No recent hospitalizations or ED visits or upper respiratory infections. She has seasonal allergies and uses Claritin which helps. Hasn't used Albuterol for a few months. She is scheduled to undergo stress test later this month. She had an appointment with sleep medicine a few days ago but missed it. Unable to obtain Sindy despite multiple attempts. 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 KATHY (generalized anxiety disorder) GERD (gastroesophageal reflux disease) Hemorrhage of gastrointestinal tract, unspecified HTN (hypertension) Hypercholesteremia IBS (irritable bowel syndrome) Internal hemorrhoids without mention of complication Intertrigo Irritable bowel syndrome Lumbar radiculopathy Migraine without aura Morbid obesity (HCC) Myalgia and myositis, unspecified Obesity, unspecified OCD (obsessive compulsive disorder) Onychomycosis JAYLYN (obstructive sleep apnea) Osteoarthrosis Other acute reactions to stress Other anxiety states Panic disorder Panic disorder without agoraphobia Pedal edema PMH - PAST MEDICAL HISTORY OF joint pain Pure hypercholesterolemia Sciatica, right side Sleep related bruxism Temporomandibular joint disorders, unspecified TMJ syndrome Unspecified menopausal and postmenopausal disorder Uterine prolapse without mention of vaginal wall prolapse Venous insufficiency of both lower extremities Vitamin D deficiency Allergies: Betadine [Povidone-* Unknown Glimepiride Intolerance Comment:Diarrhea Haldol [Haloperidol] Other: See Comments Comment:Headache/hallucinations [place] Other: See Comments Comment:Hallucinations Metformin Diarrhea Neurontin [Gabapent* Intolerance Comment:felt poorly Penicillins Unknown Comment:Okay to take amoxil Tylenol [Acetaminop* Intolerance Victoza [Liraglutid* GI Upset Medication List Accurate as of April 28, 2024 3:11 PM. If you have any questions, ask your nurse or doctor. CHANGE how you take these medications * alcohol swabs Apply 1 application to affected area three times daily. What changed: Another medication with the same name was changed. Make sure you understand how and when to take each. * alcohol swabs Apply 1 application to affected area three times a day. What changed: additional instructions * BLOOD GLUCOSE TEST test strip Generic drug: blood sugar diagnostic Test blood sugar(s) 3 times daily. Dx: Type 2 DM - Controlled E11.9 Insulin: Yes What changed: additional instructions * BLOOD GLUCOSE TEST test strip Generic drug: blood sugar diagnostic Test blood sugar(s) 3 times daily. Dx: Type 2 DM - Controlled E11.9 Insulin: Yes What changed: Another medication with the same name was changed. Make sure you understand how and when to take each. Blood Pressure Monitor Check daily What changed: additional instructions furosemide 20 mg tablet Commonly known as: LASIX Take 1 tablet by mouth once daily. Alternate 2 pills with 1 pill daily What changed: additional instructions * Lancets Test blood sugar(s) 3 times daily. Dx: Type 2 DM - Controlled E11.9 Insulin: Yes What changed: additional instructions * Lancets Test blood sugar(s) 3 times daily. Dx: Type 2 DM - Controlled E11.9 Insulin: Yes What changed: Another medication with the same name was changed. Make sure you understand how and when to take each. * This list has 6 medication(s) that are the same as other medications prescribed for you. Read the directions carefully, and ask your doctor or other care provider to review them with you. CONTINUE taking these medications albuterol HFA 90 mcg/actuation inhaler Commonly known as: PROVENTIL HFA, VENTOLIN HFA Inhale 2 Puffs as instructed every 4 hours as needed. budesonide-formoterol 160-4.5 mcg/actuation inhaler Commonly known as: SYMBICORT Inhale 2 Puffs as instructed two times a day. celecoxib 200 mg capsule Commonly known as: CeleBREX Take 1 capsule by mouth once daily. For neck pain divalproex DR 500 mg EC tablet Commonly known as: DEPAKOTE DULoxetine 60 mg capsule, delayed release sprinkle Commonly known as: DRIZALMA SPRINKLE ergocalciferol (vitamin D2) 50,000 unit capsule Commonly known as: DRISDOL Take 1 capsule by mouth one time a week. TO BE TAKEN ORALLY DIRECTED. Take 1 tablet by mouth twice weekly [id number], then decrease to 1 tablet weekly. ferrous sulfate 325 mg (65 mg iron) tablet Take 1 tablet by mouth two times a day with meals. Insulin [place] (Disposable) 31 gauge x 3/16 Commonly known as: BD Ultrafine III Mini Pen 1 Each two times a day. LANTUS SOLOSTAR U-100 INSULIN 100 unit/mL (3 mL) Generic drug: insulin glargine Inject 30 Units subcutaneously once daily. metFORMIN ER 500 mg 24 hr tablet Commonly known as: GLUCOPHAGE XR Take 1 tablet by mouth daily with breakfast. metoprolol tartrate (short acting) 50 mg tablet Commonly known as: LOPRESSOR Take 1 tablet by mouth two times a day. omeprazole 20 mg capsule Commonly known as: PriLOSEC Take 1 capsule by mouth once daily. oxybutynin ER 10 mg 24 hr tablet Commonly known as: DITROPAN XL Take 1 tablet by mouth daily at bedtime. PARoxetine 10 mg tablet Commonly known as: PAXIL Take 1 tablet by mouth once daily. for hot flashes potassium chloride 10 mEq tablet Commonly known as: K-TAB Take 1 tablet by mouth daily with breakfast. Take with lasix * pregabalin 75 mg capsule Commonly known as: LYRICA Take 1 capsule by mouth two times a day for 180 days. Take with 100mg tablet to equal 175mg dose * pregabalin 100 mg capsule Commonly known as: LYRICA Take 1 capsule by mouth two times a day for 180 days. To be taken with 75 mg capsule to total 175 mg twice daily. PULSE OXIMETER [facility] Use as needed to monitor oxygen level and heart rate QUEtiapine 100 mg tablet Commonly known as: SEROquel rosuvastatin 10 mg tablet Commonly known as: CRESTOR Take 1 tablet by mouth daily at bedtime. SEMGLEE(INSULIN GLARG-YFGN)PEN 100 unit/mL (3 mL) insulin pen Generic drug: insulin glargine-yfgn INJECT 30 UNITS SUBCUTANEOUSLY ONCE DAILY * triamcinolone acetonide 0.5 % cream Commonly known as: KeNALog Apply 1 application to affected area two times a day. For rash/itching. Apply sparingly. Avoid face/skin fold. * triamcinolone acetonide 0.5 % cream Commonly known as: KeNALog Apply 1 application to affected area two times a day. For rash/itching. Apply sparingly. Avoid face/skin fold. ZOLOFT 100 mg tablet Generic drug: sertraline Take one (1) and one half (1/2) tablets two (2) times daily. * This list has 4 medication(s) that are the same as other medications prescribed for you. Read the directions carefully, and ask your doctor or other care provider to review them with you. DATA: I personally reviewed and analyzed all labs, radiographs and available pulmonary function testing. PFT: 11/2023 Oximetry with Ambulation Test for This Encounter O2 Device O2 Adapter NC O2 Flow SpO2% HR Activity Ft Walked (ft) Time (min) Avg Speed (MPH) R/A 96 76 Resting R/A 87 96 Walking, usual pace 120 1.4 0.97 NC 2 98 89 Resting NC 2 93 111 Walking, usual pace 320 3 1.21 PFT 11/2023: Pulmonary function test show mild obstruction with no improvement postbronchodilator and normal diffusing capacity. CXR: Last XR Chest - Impression Only XR CHEST 2V FRONTAL/LAT Exam End: 11/04/2023 2:37 PM (Final result) Impression: IMPRESSION: No acute radiographic abnormality. ... Echo: 04/06/2024 CONCLUSIONS: - Technically difficult exam due to body habitus. - Exam indication: Shortness of Breath - The left ventricle is normal in size. Left ventricular systolic function is normal. EF = 58 5% (2D biplane) Indeterminate left ventricular diastolic dysfunction. - The right ventricle is normal in size. Right ventricular systolic function is normal. - There is moderate (2+) mitral valve regurgitation. Regurgitant orifice area (PISA) is 0.21 cm . - The patient has not had a prior CC echocardiographic exam for comparison. NIZATIONS Prevnar - 08/09/2023 Pneumovax 23 - xx Influenza - 08/09/2023 COVID-19 -06/28/2023 RSV- xx Review of Systems Constitutional: Negative for activity change, appetite change and unexpected weight change. HENT: Positive for postnasal drip. Negative for mouth sores, rhinorrhea, sinus pressure and sinus pain. Respiratory: Positive for shortness of breath. Negative for cough, chest tightness and wheezing. Cardiovascular: Positive for leg swelling. Negative for palpitations. Musculoskeletal: Positive for arthralgias and myalgias. Allergic/Immunologic: Positive for environmental allergies. BP 122/74 Pulse 85 Resp 14 Wt 117 kg (258 lb) SpO2 92% BMI 44.29 kg/m Physical Exam Vitals reviewed. Constitutional: General: She is not in acute distress. Appearance: She is obese. She is not ill-appearing. HENT: Head: Normocephalic. Nose: Nose normal. No rhinorrhea. Mouth/Throat: Mouth: Mucous membranes are moist. Pharynx: No oropharyngeal exudate. Cardiovascular: Rate and Rhythm: Normal rate and regular rhythm. Heart sounds: Normal heart sounds. Pulmonary: Effort: Pulmonary effort is normal. No respiratory distress. Breath sounds: Normal breath sounds. No wheezing. Musculoskeletal: Right lower leg: Edema present. Left lower leg: Edema present. Comments: Mild edema Skin: General: Skin is warm and dry. Capillary Refill: Capillary refill takes less than 2 seconds. Neurological: General: No focal deficit present. Mental Status: She is alert. ASSESSMENT/PLAN: 1. Mild persistent asthma without complication - ICD9: 493.90, ICD10: J45.30 (primary diagnosis) - patient instructed to resume using Symbicort 2 puffs twice a day with a spacer. - use Albuterol PRN - provided with spacer and education on how to use inhaler - Avoidance of triggers recommended 2. SOB (shortness of breath) - ICD9: 786.05, ICD10: R06.02 - patient needs to reschedule with sleep medicine - recent echo without concern for pulmonary HTN - awaiting stress test through PCP - strongly advised to use inhalers as prescribed. Noted improvement after starting Symbicort. 3. Hypoxemia - ICD9: 799.02, ICD10: R09.02 - continue 2L NC 4. Morbid obesity (HCC) - ICD9: 278.01, ICD10: E66.01 - BMI 44 - discussed weight loss methods F/u 3 months Portions of this documentation were copied and pasted from previous office visit notes in order to provide a cohesive continuity of the history. The note has been reviewed and edited and updated as necessary. Ashley Venegas APRN.CNP Associated attestation - Monserrat Khoury PA-C - 04/29/2024 3:54 PM EDT I have personally performed a face to face assessment of the patient and have reviewed the WYATT note. My bravo findings include: Exam is as documented. Assessment/Plan discussed and reflected in note. Other additions or changes: As edited Signature: Monserrat Khoury Date: 04/29/2024 Time: 3:53 PM documented in this encounter [facility] 04-29-2024 Telephone encounter Note PDMP website checked and validated. All prescriptions have been APPROPRIATELY filled. No suspicious activity was identified. 04/29/2024 by Lala Harrison APRN.CNP [facility] 04-29-2024 Miscellaneous Notes PDMP website checked and validated. All prescriptions have been APPROPRIATELY filled. No suspicious activity was identified. 04/29/2024 by Lala Harrison APRN.CNP Prescription Refill Information The patient has been identified by name and date of : Yes Caregiver verified no other encounters exist for this prescription request: Yes Caregiver confirmed with patient/requestor that no other refills are due, in the near future, with this provider at this time: Yes The last office visit in the department: 02/27/24 Does the patient have a future office visit with this provider/department: Yes Requested Prescriptions Pending Prescriptions Disp Refills pregabalin (LYRICA) 75 mg capsule 60 capsule 4 Sig: Take 1 capsule by mouth two times a day for 180 days. Take with 100mg tablet to equal 175mg dose Anupama Schwartz LPN April 28, 2024 7:16 AM documented in this encounter [facility] 04-28-2024 Telephone encounter Note Prescription Refill Information The patient has been identified by name and date of : Yes Caregiver verified no other encounters exist for this prescription request: Yes Caregiver confirmed with patient/requestor that no other refills are due, in the near future, with this provider at this time: Yes The last office visit in the department: 02/27/24 Does the patient have a future office visit with this provider/department: Yes Requested Prescriptions Pending Prescriptions Disp Refills Lancets 100 Each 11 Sig: Test blood sugar(s) 3 times daily. Dx: Type 2 DM - Controlled E11.9 Insulin: Yes furosemide (LASIX) 20 mg tablet 45 tablet 5 Sig: Take 1 tablet by mouth once daily. Alternate 2 pills with 1 pill daily Anupama Schwartz LPN April 28, 2024 7:17 AM [facility] 04-28-2024 Miscellaneous Notes Prescription Refill Information The patient has been identified by name and date of : Yes Caregiver verified no other encounters exist for this prescription request: Yes Caregiver confirmed with patient/requestor that no other refills are due, in the near future, with this provider at this time: Yes The last office visit in the department: 02/27/24 Does the patient have a future office visit with this provider/department: Yes Requested Prescriptions Pending Prescriptions Disp Refills Lancets 100 Each 11 Sig: Test blood sugar(s) 3 times daily. Dx: Type 2 DM - Controlled E11.9 Insulin: Yes furosemide (LASIX) 20 mg tablet 45 tablet 5 Sig: Take 1 tablet by mouth once daily. Alternate 2 pills with 1 pill daily Anupama Schwartz LPN April 28, 2024 7:17 AM documented in this encounter [facility] 04-28-2024 Telephone encounter Note Prescription Refill Information The patient has been identified by name and date of : Yes Caregiver verified no other encounters exist for this prescription request: Yes Caregiver confirmed with patient/requestor that no other refills are due, in the near future, with this provider at this time: Yes The last office visit in the department: 02/27/24 Does the patient have a future office visit with this provider/department: Yes Requested Prescriptions Pending Prescriptions Disp Refills pregabalin (LYRICA) 75 mg capsule 60 capsule 4 Sig: Take 1 capsule by mouth two times a day for 180 days. Take with 100mg tablet to equal 175mg dose Anupama Schwartz LPN April 28, 2024 7:16 AM [facility] 04-09-2024 Telephone encounter Note Prescription Refill Information The patient has been identified by name and date of : Yes Caregiver verified no other encounters exist for this prescription request: Yes Caregiver confirmed with patient/requestor that no other refills are due, in the near future, with this provider at this time: Yes The last office visit in the department: 02/27/24 Does the patient have a future office visit with this provider/department: Yes, 05/06/24 Requested Prescriptions Pending Prescriptions Disp Refills metoprolol tartrate, short acting, (LOPRESSOR) 50 mg tablet 180 tablet 0 Sig: Take 1 tablet by mouth two times a day. FRANCISCO Broderick April 09, 2024 7:41 AM [facility] 04-09-2024 Miscellaneous Notes Prescription Refill Information The patient has been identified by name and date of : Yes Caregiver verified no other encounters exist for this prescription request: Yes Caregiver confirmed with patient/requestor that no other refills are due, in the near future, with this provider at this time: Yes The last office visit in the department: 02/27/24 Does the patient have a future office visit with this provider/department: Yes, 05/06/24 Requested Prescriptions Pending Prescriptions Disp Refills metoprolol tartrate, short acting, (LOPRESSOR) 50 mg tablet 180 tablet 0 Sig: Take 1 tablet by mouth two times a day. FRANCISCO Broderick April 09, 2024 7:41 AM documented in this encounter [facility] 03-17-2024 Telephone encounter Note Patient aware. Patient is going to have phone number change and will call clinic with new number. Lana Mckenzie LPN [facility] 03-17-2024 Miscellaneous Notes Patient aware. Patient is going to have phone number change and will call clinic with new number. Lana Mckenzie LPN ok Spoke with patient and she would like to try the low-dose paroxetine to see if that would help. She doesn't want to try the gabapentin due to side effects. Also patient has requested a refill on the Lantus. Prescription is pending. Please let Irma Stewart know. Can consider low-dose paroxetine or gabapentin for hot flashes if she would like. Denial rec'd from [facility] for fezlinetant. It doesn't say what is covered. Reviewed discount cards. That would be around 500$ per month. Prior Authorization has been completed online at [employer] for Pily, will await response. [id number]-BTERJJQL Please keep encounter open until final decision has been received and documented from insurance company. Camila Lees MA documented in this encounter [facility] 03-17-2024 Telephone encounter Note ok [facility] 03-17-2024 Telephone encounter Note Spoke with patient and she would like to try the low-dose paroxetine to see if that would help. She doesn't want to try the gabapentin due to side effects. Also patient has requested a refill on the Lantus. Prescription is pending. [facility] 03-17-2024 Telephone encounter Note Please let Irma Stewart know. Can consider low-dose paroxetine or gabapentin for hot flashes if she would like. [facility] 03-17-2024 Telephone encounter Note Denial rec'd from [facility] for fezlinetant. It doesn't say what is covered. Reviewed discount cards. That would be around 500$ per month. [facility] 2024 Telephone encounter Note Prior Authorization has been completed online at [employer] for Pily, will await response. [id number] Please keep encounter open until final decision has been received and documented from insurance company. Camila Lees MA [facility] 03-13-2024 Telephone encounter Note Yes rx sent. [facility] 03-13-2024 Miscellaneous Notes Yes rx sent. Patient notified of providers message and verbalized understanding. Patient states that she is taking Lantus 30 units at bedtime and that she use to take metformin XR a while back but when she called in for a refill it was the regular metformin instead and she tried taking it but it caused diarrhea so she stopped taking it. Patient is asking if the XR could be called into her pharmacy and she will start taking it again. ----- Message from Jaime Spencer APRN.CRM SOLUTION ARCHITECT sent at 03/12/2024 4:37 PM EDT ----- CBC CMP TSH are in acceptable range. A1c shows decreased control compared to previous. Check to see if taking medications for DM as ordered. documented in this encounter [facility] 03-12-2024 Telephone encounter Note Patient notified of providers message and verbalized understanding. Patient states that she is taking Lantus 30 units at bedtime and that she use to take metformin XR a while back but when she called in for a refill it was the regular metformin instead and she tried taking it but it caused diarrhea so she stopped taking it. Patient is asking if the XR could be called into her pharmacy and she will start taking it again. [facility] 03-12-2024 Telephone encounter Note ----- Message from Jaime Spencer APRN.CRM SOLUTION ARCHITECT sent at 03/12/2024 4:37 PM EDT ----- CBC CMP TSH are in acceptable range. A1c shows decreased control compared to previous. Check to see if taking medications for DM as ordered. [facility] 02-27-2024 History of Present illness Narrative SUBJECTIVE: Diabetic Foot Exam Never done Pap Testing Never done HPV Testing Never done Colorectal Cancer Screening Never done Mammogram Screening due on 05/20/2007 Shingrix Vaccine(1 of 2) Never done RSV Vaccine(1 - 1-dose 60+ series) Never done Covid-19 Vaccine(2022- season) due on 06/28/2023 Dilated Retinal Exam due on 07/31/2023 HPI Irma Stewart is a 63 year old female. PMH significant for ACTIVE PROBLEM LIST Esophageal Reflux Moderate Episode of Recurrent Major Depressive Disorder (Hcc) Panic Disorder Without Agoraphobia Somatization Disorder Irritable Bowel Syndrome Other and Unspecified Hyperlipidemia Schizophrenia (Hcc) Other Mixed Anxiety Disorders Controlled Type 2 Diabetes Mellitus Without Complication, With Long-Term Current Use of Insulin (Hcc) Benign Paroxysmal Vertigo of Both Ears Since last seen she had a visit with melvin Martinez CNP. Noted hypoxemia and cough. She has been seen by Dr. Camila Johns adult educator. Ordered albuterol sulfate and budesonide/formoterol fumarate. Noted mild persistent asthma without complication morbid obesity hypoxemia. She was referred to sleep medicine. Echocardiogram ordered not yet scheduled. Not covered by insurance per Irma. Recommended weight loss. Today notes neck pain on the left side. Sharp discomfort with movement. Does radiate down to the upper left shoulder. No difficulty moving her left arm. Decreased range of motion looking to the left. Pain is increased with looking to the left. No injury or increased activity prior to this occurrence. Present for a few weeks. No prior occurrence reported. She reports left-sided chest pain and left axilla pain at rest and with activity. Seems to be worse with activity. She notes decreased exercise tolerance. She is short of breath with activity and notes that she is sweating a lot with minimal activity. She notes that palpitations may occur with this. Without report of edema presyncope or syncope. No prior echo stress test or LHC. Reports hot flashes that can occur at any time. Notes that she carries a fan and has 1 available all the time. Has been going on for years. Notes no longer seeing pain management doctor Rogerio as MRI not completed due to not covered by insurance per patient. Reports was getting lumbar injections. DIABETES MELLITUS: Without report of excessive thirst or increased frequency of urination, chest pain or dyspnea , numbness, tingling or pain in extremities, new or unusual visual symptoms, low sugar/hypoglycemic reactions, weight loss/gain, lightheadedness/dizziness, and bowel changes/loose stools. Patient's last HgA1C was Hemoglobin A1C (%) Date Value 11/04/2023 6.5 07/12/2023 8.2 06/23/2021 6.0 08/31/2020 6.4 Hemoglobin A1C (POCT) (%) Date Value 07/12/2023 8.4 ) HTN: Ms. Stewart indicates that she is feeling well and denies any symptoms referable to elevated blood pressure. Last 14 Encounter BP Readings: Date: BP: 02/27/2024 111/74 01/24/2024 132/84 11/25/2023 110/75 11/04/2023 124/76 08/09/2023 113/83 07/12/2023 120/74 05/23/2023 120/77 03/26/2023 128/78 02/22/2023 120/62 01/23/2023 118/64 06/27/2022 124/74 05/30/2022 136/84 10/02/2021 116/70 12/07/2020 112/60 Review of Systems Constitutional: Negative. Respiratory: Positive for shortness of breath. Cardiovascular: Positive for chest pain. Musculoskeletal: Positive for arthralgias, neck pain and neck stiffness. Objective BP 111/74 Pulse 73 Resp 16 Wt 116.6 kg (257 lb) BMI 44.11 kg/m Physical Exam Vitals and nursing note reviewed. Constitutional: Appearance: Normal appearance. HENT: Head: Normocephalic and atraumatic. Eyes: Conjunctiva/sclera: Conjunctivae normal. Cardiovascular: Rate and Rhythm: Normal rate. Pulses: Carotid pulses are 2+ on the right side and 2+ on the left side. Radial pulses are 2+ on the right side and 2+ on the left side. Heart sounds: Normal heart sounds. Pulmonary: Effort: Pulmonary effort is normal. Musculoskeletal: Left shoulder: No bony tenderness. Normal strength. Normal pulse. Cervical back: Pain with movement (turing to left) present. Decreased range of motion. Right lower leg: No edema. Left lower leg: No edema. Skin: General: Skin is warm and dry. Neurological: Mental Status: She is alert. Mental status is at baseline. ALLERGIES Allergen Reactions Betadine [Povidone-* Unknown Glimepiride Intolerance Diarrhea Haldol [Haloperidol] Other: See Comments Headache/hallucinations [place] Other: See Comments Hallucinations Metformin Diarrhea Neurontin [Gabapent* Intolerance felt poorly Penicillins Unknown Okay to take amoxil Tylenol [Acetaminop* Intolerance Victoza [Liraglutid* GI Upset Medications ergocalciferol 50,000 unit capsule (VITAMIN D2, DRISDOL) Take 1 capsule by mouth one time a week. TO BE TAKEN ORALLY DIRECTED. Take 1 tablet by mouth twice weekly [id number], then decrease to 1 tablet weekly. oxybutynin ER (DITROPAN XL) 10 mg 24 hr tablet Take 1 tablet by mouth daily at bedtime. budesonide-formoterol (SYMBICORT) 160-4.5 mcg/actuation inhaler Inhale 2 Puffs as instructed two times a day. albuterol HFA (PROVENTIL HFA, VENTOLIN HFA) 90 mcg/actuation inhaler Inhale 2 Puffs as instructed every 4 hours as needed. ferrous sulfate 325 mg (65 mg iron) tablet Take 1 tablet by mouth two times a day with meals. metoprolol tartrate, short acting, (LOPRESSOR) 50 mg tablet Take 1 tablet by mouth two times a day. alcohol swabs Apply 1 application to affected area three times a day. (Patient taking differently: Apply 1 application to affected area three times a day. Takes blood sugar twice daily) Insulin [place], Disposable, (BD ULTRAFINE III MINI PEN) 31 gauge x 3/16 1 Each two times a day. rosuvastatin (CRESTOR) 10 mg tablet Take 1 tablet by mouth daily at bedtime. pregabalin (LYRICA) 75 mg capsule Take 1 capsule by mouth two times a day for 180 days. Take with 100mg tablet to equal 175mg dose pregabalin (LYRICA) 100 mg capsule Take 1 capsule by mouth two times a day for 180 days. To be taken with 75 mg capsule to total 175 mg twice daily. PULSE OXIMETER [facility] Use as needed to monitor oxygen level and heart rate Blood Pressure Monitor Check daily (Patient taking differently: Check daily Does not check daily) potassium chloride (K-TAB) 10 mEq tablet Take 1 tablet by mouth daily with breakfast. Take with lasix furosemide (LASIX) 20 mg tablet Take 1 tablet by mouth once daily. Alternate 2 pills with 1 pill daily (Patient taking differently: Take 20 mg by mouth once daily. Alternate 2 pills with 1 pill daily Takes one tablet by mouth daily) omeprazole (PRILOSEC) 20 mg capsule Take 1 capsule by mouth once daily. triamcinolone acetonide (KENALOG) 0.5 % cream Apply 1 application to affected area two times a day. For rash/itching. Apply sparingly. Avoid face/skin fold. Lancets lancets Test blood sugar(s) 3 times daily. Dx: Type 2 DM - Controlled E11.9 Insulin: Yes SEMGLEE,INSULIN GLARG-YFGN,PEN 100 unit/mL (3 mL) insulin pen INJECT 30 UNITS SUBCUTANEOUSLY ONCE DAILY blood sugar diagnostic (BLOOD GLUCOSE TEST) test strip Test blood sugar(s) 3 times daily. Dx: Type 2 DM - Controlled E11.9 Insulin: Yes (Patient taking differently: Test blood sugar(s) 3 times daily. Dx: Type 2 DM - Controlled E11.9 Insulin: Yes Takes blood sugar twice daily) Lancets lancets Test blood sugar(s) 3 times daily. Dx: Type 2 DM - Controlled E11.9 Insulin: Yes (Patient taking differently: Test blood sugar(s) 3 times daily. Dx: Type 2 DM - Controlled E11.9 Insulin: Yes Takes blood sugar twice daily) divalproex DR (DEPAKOTE) 500 mg EC tablet Take 750 mg by mouth once daily. Daily in AM, extended release 500 MG by mouth twice daily DULoxetine 60 mg CDRS Take 60 mg by mouth two times a day. 100 MG by mouth daily QUEtiapine (SEROQUEL) 100 mg tablet Take 100 mg by mouth daily at bedtime. ZOLOFT 100 MG TAB Take one (1) and one half (1/2) tablets two (2) times daily. celecoxib (CELEBREX) 200 mg capsule Take 1 capsule by mouth once daily. (Patient not taking: Reported on 02/27/2024) metFORMIN (GLUCOPHAGE) 500 mg tablet Take 1 tablet by mouth daily with breakfast. (Patient not taking: Reported on 02/27/2024) triamcinolone acetonide (KENALOG) 0.5 % cream Apply 1 application to affected area two times a day. For rash/itching. Apply sparingly. Avoid face/skin fold. (Patient not taking: Reported on 02/27/2024) blood sugar diagnostic (BLOOD GLUCOSE TEST) test strip Test blood sugar(s) 3 times daily. Dx: Type 2 DM - Controlled E11.9 Insulin: Yes (Patient not taking: Reported on 02/27/2024) alcohol swabs Apply 1 application to affected area three times daily. 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 KATHY (generalized anxiety disorder) GERD (gastroesophageal reflux disease) Hemorrhage of gastrointestinal tract, unspecified HTN (hypertension) Hypercholesteremia IBS (irritable bowel syndrome) Internal hemorrhoids without mention of complication Intertrigo Irritable bowel syndrome Lumbar radiculopathy Migraine without aura Morbid obesity (HCC) Myalgia and myositis, unspecified Obesity, unspecified OCD (obsessive compulsive disorder) Onychomycosis JAYLYN (obstructive sleep apnea) Osteoarthrosis Other acute reactions to stress Other anxiety states Panic disorder Panic disorder without agoraphobia Pedal edema PMH - PAST MEDICAL HISTORY OF joint pain Pure hypercholesterolemia Sciatica, right side Sleep related bruxism Temporomandibular joint disorders, unspecified TMJ syndrome Unspecified menopausal and postmenopausal disorder Uterine prolapse without mention of vaginal wall prolapse Venous insufficiency of both lower extremities Vitamin D deficiency Social History Tobacco Use Smoking status: Never Smokeless tobacco: Never Vaping Use Vaping Use: Never used Substance Use Topics Alcohol use: Not Currently Drug use: Never Latest Ref Rng 07/12/2023 08/09/2023 11/04/2023 WBC 3.70 - 11.00 k/uL 4.18 5.94 RBC 3.90 - 5.20 m/uL 4.44 4.65 Hemoglobin 11.5 - 15.5 g/dL 13.9 14.3 Hematocrit 36.0 - 46.0 % 42.8 43.5 MCV 80.0 - 100.0 fL 96.4 93.5 MCH 26.0 - 34.0 pg 31.3 30.8 MCHC 30.5 - 36.0 g/dL 32.5 32.9 RDW-CV 11.5 - 15.0 % 12.5 12.9 Platelet Count 150 - 400 k/uL 144 (L) 151 MPV 9.0 - 12.7 fL 11.3 10.7 Neut% % 53.8 Abs Neut (ANC) 1.45 - 7.50 k/uL 2.25 Lymph% % 36.4 Abs Lymph 1.00 - 4.00 k/uL 1.52 Trinity% % 6.7 Abs Trinity <0.87 k/uL 0.28 Eosin% % 2.2 Abs Eosin <0.46 k/uL 0.09 Baso% % 0.7 Abs Baso <0.11 k/uL 0.03 Immature Gran % % 0.2 IMMATURE GRANS (ABS) <0.10 k/uL <0.03 NRBC /100 WBC 0.0 Absolute nRBC <0.01 k/uL <0.01 <0.01 DTYPE Auto Protein, Total 6.3 - 8.0 g/dL 6.5 7.0 Albumin 3.9 - 4.9 g/dL 4.2 4.0 Calcium 8.5 - 10.2 mg/dL 9.2 9.2 Bilirubin, Total 0.2 - 1.3 mg/dL 0.3 0.3 Alkaline Phosphatase 34 - 123 U/L 72 74 AST 13 - 35 U/L 11 (L) 22 ALT 7 - 38 U/L 12 14 Glucose 74 - 99 mg/dL 420 (H) 136 (H) BUN 7 - 21 mg/dL 10 20 Creatinine 0.58 - 0.96 mg/dL 0.73 0.86 Sodium 136 - 144 mmol/L 135 (L) 136 Potassium 3.7 - 5.1 mmol/L 4.7 4.6 Chloride 97 - 105 mmol/L 93 (L) 98 CO2 22 - 30 mmol/L 26 23 Anion Gap 9 - 18 mmol/L 16 15 eGFR >=60 mL/min/1.73m 93 76 Cholesterol, Total <200 mg/dL 195 260 (H) Triglyceride <150 mg/dL 257 (H) 269 (H) HDL Cholesterol >39 mg/dL 55 52 Non HDL Cholesterol <130 mg/dL 140 (H) 208 (H) Fasting Time hrs 12 15 VLDL Cholesterol <30 mg/dL 51 (H) 54 (H) TC:HDL Ratio <5.10 3.55 5.00 LDL Cholesterol <100 mg/dL 89 154 (H) LDL:HDL Ratio <2.54 1.62 2.96 (H) NANCY Negative Positive ! NANCY Titer 1:80 NANCY Pattern Nuclear homogeneous Creatinine, Ur Random (UCRR) 20.0 - 300.0 mg/dL 281.0 Albumin, Urine Random mg/L 13.5 Albumin/Creat Ratio <30 mg/g 5 Hemoglobin A1C 4.3 - 5.6 % 8.2 (H) 6.5 (H) Estimated Average Glucose mg/dL 189 140 WSR 0 - 20 mm/hr 10 CRP <0.9 mg/dL 0.4 Magnesium 1.7 - 2.3 mg/dL 1.8 Rheumatoid Factor <16 IU/mL <10 Vitamin B12 232 - 1,245 pg/mL >2,000 (H) Free T4 0.9 - 1.7 ng/dL 1.1 TSH 0.270 - 4.200 mIU/L 3.150 1.940 ASSESSMENT/PLAN: 1. Chest pain, unspecified type - ICD9: 786.50, ICD10: R07.9 (primary diagnosis) Chest pain of unclear etiology, patient with significant risk factor(s) of Diabetes Mellitus and Hypertension - Electrocardiogram: An ECG today showed normal sinus rhythm - ECG COMPLETE - STRESS ECHO DOBUTAMINE - PERFLUTREN LIPID MICROSPHERES 1.1 MG/ML INJECTION IN NS 10 ML - DOBUTAMINE 250 MG/D5W 250 ML INFUSION CARDIAC STRESS TEST - SODIUM CHLORIDE 0.9 % (FLUSH) INJECTION SYRINGE 2. SOBOE (shortness of breath on exertion) - ICD9: 786.05, ICD10: R06.02 - STRESS ECHO DOBUTAMINE - PERFLUTREN LIPID MICROSPHERES 1.1 MG/ML INJECTION IN NS 10 ML - DOBUTAMINE 250 MG/D5W 250 ML INFUSION CARDIAC STRESS TEST - SODIUM CHLORIDE 0.9 % (FLUSH) INJECTION SYRINGE 3. Hot flashes - ICD9: 782.62, ICD10: R23.2 - COMPLETE BLOOD COUNT AND DIFFERENTIAL - COMPREHENSIVE METABOLIC PANEL - THYROID STIMULATING HORMONE 4. Controlled type 2 diabetes mellitus without complication, with long-term current use of insulin (HCC) - ICD9: 250.00, V58.67, ICD10: E11.9, Z79.4 controlled - Continue current medications - CONSULT TO OPHTHALMOLOGY - HEMOGLOBIN A1C 5. Screening for diabetic retinopathy - ICD9: V80.2, ICD10: Z13.5 - CONSULT TO OPHTHALMOLOGY 6. Irritant contact dermatitis due to cosmetics - ICD9: 692.81, ICD10: L24.3 - TRIAMCINOLONE ACETONIDE 0.5 % TOPICAL CREAM 7. Encounter for immunization - ICD9: V03.89, ICD10: Z23 - ZOSTER VACCINE, RECOMBINANT (SHINGRIX) - ZOSTER VACCINE, RECOMBINANT (SHINGRIX) - RSV VACCINE, BIVALENT (ABRYSVO) - PFIZER-Can'tWaitNTSecpanel COVID-19 VACCINE (2022- [place]) AGE 12+ YR Reschedule with rheumatology, previously NANCY positive. 1 mo follow up CAMPOS Barcenas APRN.CNS Medical Decision Making: Problems: Moderate: 2+ stable chronic illnesses Data: Unique test(s) ordered: 2 Risk: Moderate: Drug management Medical Decision Making Level: 4 - Moderate documented in this encounter [facility] 02-17-2024 Telephone encounter Note Patient returned call and said pharmacy was still filling the rx even though she did not have rx. Patient did not know rx had run out. Patient said she has been taking OTC Vitamin D 3 5000 international unit(s) twice daily for past few weeks. Patient Vitamin D has not been checked since 01/2023. Patient said she had labs done in Nov and was sick and had to cancel her appt with Jaime Spencer. Patient did not get her results for the labs done in Nov. Patient said can send her a my chart message might be easier since she does not always hear her phone ringing. [facility] 02-17-2024 Miscellaneous Notes Patient returned call and said pharmacy was still filling the rx even though she did not have rx. Patient did not know rx had run out. Patient said she has been taking OTC Vitamin D 3 5000 international unit(s) twice daily for past few weeks. Patient Vitamin D has not been checked since 01/2023. Patient said she had labs done in Nov and was sick and had to cancel her appt with Jaime Spencer. Patient did not get her results for the labs done in Nov. Patient said can send her a my chart message might be easier since she does not always hear her phone ringing. Left a message for pt to call the office. Records show medication be last prescribed in 2021. Romi Pandya LPN documented in this encounter [facility] 02-14-2024 Miscellaneous Notes Left a brief message with information listed below. Romi Pandya LPN RX sent 02/07/24 Patient has been identified by name and date of : No Patient phones for refill(s): Requested Prescriptions Pending Prescriptions Disp Refills oxybutynin ER (DITROPAN XL) 10 mg 24 hr tablet 30 tablet 5 Sig: Take 1 tablet by mouth daily at bedtime. Date of last office visit in primary care: 11/04/2023 Date of next office visit in primary care: 05/06/2024 Please advise. Thank you. Anupama Andrade LPN. documented in this encounter [facility] 02-07-2024 Miscellaneous Notes Patient has been identified by name and date of : No Patient phones for refill(s): Requested Prescriptions Pending Prescriptions Disp Refills oxybutynin ER (DITROPAN XL) 10 mg 24 hr tablet 30 tablet 5 Sig: Take 1 tablet by mouth daily at bedtime. Date of last office visit in primary care: 11/04/2023 Date of next office visit in primary care: 05/06/2024 Please advise. Thank you. Anupama Andrade LPN. documented in this encounter [facility] 02-06-2024 Telephone encounter Note Left a message for pt to call the office. Records show medication be last prescribed in 2021. Romi Pandya LPN [facility] 01-07-2024 Miscellaneous Notes Patient has been identified by name and date of : No Patient phones for refill(s): Requested Prescriptions Pending Prescriptions Disp Refills ferrous sulfate 325 mg (65 mg iron) tablet 60 tablet 11 Sig: Take 1 tablet by mouth two times a day with meals. Date of last office visit in primary care: 11/04/2023 Date of next office visit in primary care: 05/06/2024 Please advise. Thank you. Anupama Andrade LPN. documented in this encounter [facility] 01-07-2024 Miscellaneous Notes Patient has been identified by name and date of : Yes Patient phones for refill(s): Requested Prescriptions Pending Prescriptions Disp Refills metoprolol tartrate, short acting, (LOPRESSOR) 50 mg tablet 180 tablet 0 Sig: Take 1 tablet by mouth two times a day. Date of last office visit in primary care: 11/04/23 Date of next office visit in primary care: 05/04/24 Please advise. Thank you. Kelsi Mcmullen MA. documented in this encounter [facility] 12-12-2023 Miscellaneous Notes Patient notified of message below. Patient voiced understanding. Rhona Lai RN Left a message for pt to call the office and ask to speak to a nurse. Romi Pandya LPN Please let patient know this is now considered a controlled substance which is why her previous provider probably had more ability to prescriber more refills then we are able to now. Thank you Lala Harrison APRN.SOLE INKER PDMP website checked and validated. All prescriptions have been APPROPRIATELY filled. No suspicious activity was identified. 12/11/2023 by Lala Harrison APRN.MICHAEL Patient has been identified by name and date of : No Patient phones for refill(s): Requested Prescriptions Pending Prescriptions Disp Refills rosuvastatin (CRESTOR) 10 mg tablet 90 tablet 3 Sig: Take 1 tablet by mouth daily at bedtime. pregabalin (LYRICA) 75 mg capsule 60 capsule 5 Sig: Take 1 capsule by mouth two times a day for 180 days. Take with 100mg tablet to equal 175mg dose pregabalin (LYRICA) 100 mg capsule 60 capsule 5 Sig: Take 1 capsule by mouth two times a day for 180 days. To be taken with 75 mg capsule to total 175 mg twice daily. Date of last office visit in primary care: 11/04/2023 Date of next office visit in primary care: 12/11/2023 Please advise. Thank you. Anupama Andrade LPN. documented in this encounter [facility] 12-12-2023 Miscellaneous Notes Patient notified of results and provider's instructions. Patient verbalizes understanding. Rhona Lai RN Left message to call office. 12/11/2023 8:57 AM Christoph Mckeon Ma Abnormal results on lung function testing, showing obstruction that did not resolve with treatment. Recommend referral to pulmonology for further evaluation Yasmine Martinez APRN.SOLE INKER documented in this encounter [facility] 12-11-2023 Miscellaneous Notes Patient has been identified by name and date of : No Patient phones for refill(s): Requested Prescriptions Pending Prescriptions Disp Refills Insulin [place], Disposable, (BD ULTRAFINE III MINI PEN) 31 gauge x 3/16 100 Each 3 Si Each two times a day. Date of last office visit in primary care: 11/04/2023 Date of next office visit in primary care: 12/10/2023 Please advise. Thank you. Anupama Andrade LPN. documented in this encounter [facility] 12-11-2023 Miscellaneous Notes Patient has been identified by name and date of : Yes Patient phones for refill(s): Requested Prescriptions Pending Prescriptions Disp Refills alcohol swabs 100 Each 11 Sig: Apply 1 application to affected area three times a day. Date of last office visit in primary care: 11/04/2023 Date of next office visit in primary care: 05/04/2024 Please advise. Thank you. FRANCISCO Broderick. documented in this encounter [facility] 12-09-2023 Miscellaneous Notes Pt notified via [employer]. Please fax copy of my office note from 11/04, oxygen order and pulse ox with ambulation results to [facility]. Please let patient know we are faxing the order Yasmine Martinez APRN.SOLE INKER documented in this encounter [facility] 12-09-2023 Miscellaneous Notes Patient has been identified by name and date of : No Patient phones for refill(s): Requested Prescriptions Pending Prescriptions Disp Refills oxybutynin ER (DITROPAN XL) 10 mg 24 hr tablet 30 tablet 5 Sig: Take 1 tablet by mouth daily at bedtime. Date of last office visit in primary care: 11/04/2023 Date of next office visit in primary care: 05/04/2024 Please advise. Thank you. Anupama Andrade LPN. documented in this encounter [facility] 12-06-2023 Procedure note Associated Ord er(s): OXIMETRY WITH AMBULATION RESPIRATORY THERAPY OXIMETRY WITH AMBULATION Oximetry with Ambulation Test for This Encounter O2 Device O2 Adapter NC O2 Flow SpO2% HR Activity Ft Walked (ft) Time (min) Avg Speed (MPH) R/A 96 76 Resting R/A 87 96 Walking, usual pace 120 1.4 0.97 NC 2 98 89 Resting NC 2 93 111 Walking, usual pace 320 3 1.21 General Information Pulse Oximetry Site Total Time Spent Walking Assistance/O2 Supply Carrier R Index Finger 30 Wheeled Walker NAME: ALESSANDRO Velasquez PATIENT NAME: Irma Stewart DATE: December 06, 2023 TIME: 3:09 PM Comment: documented in this encounter [facility] 12-06-2023 History of Present illness Narrative PULM FUNCTION SMARTBLOCK: Provider: Yasmine Martinez APRN.SOLE INKER Assisting Tech: Sary Srevin RPFT Spirometry w/BD: 1 DLCO: 1 LV - Box: 1 Oximetry - Ambulation: 1 documented in this encounter [facility] 12-02-2023 Miscellaneous Notes Dusty from [facility] [place] [place] calling to say patient needs further testing for use of oxygen. Patient will need a 6 minute walk test or 3 part testing. Patient was supposed to see Pulmonary on 11/13/23 but cancelled. Scheduled to see Pulmonary on 12/03/23. She says if patient doesn't have testing, insurance won't cover. Inocencia Lowery, RN O2 order with 11/04/23 OV notes documenting O2 necessity & recent PSG study results faxed to: [employer] [phone]. Marc Ledezma MA Pt phoned to let Yasmine know, the DME to send oxygen to is [facility]. Reports her oxygen tank at home quit working around 11-08-23. Reports her oxygen is up and down lately- goes to 98% and sometimes goes to 84%, and advised pt to practice deep breathing at home. Pt agreeable. Advised pt to ER if POX stays in 80's and having SOB. Pt agreeable. Pt had to cancel pulm tests b/c she was sick, but plans to reschedule. documented in this encounter [facility] 11-25-2023 History of Present illness Narrative Radiology Service Progress Note PATIENT NAME: Irma Stewart DATE OF SERVICE: November 25, 2023 TIME: 7:04 PM PATIENT IDENTITY VERIFICATION COMPLETED USING TWO (2) IDENTIFIERS: Name and Date of confirmed by patient verbally. FALL SCREENING: Has the patient had 2 falls in the last year or 1 fall with injury or currently using an Ambulatory Assistive Device (Walker, Cane, Wheelchair, Crutches, etc.)? Yes, Patient High Risk for Falls What interventions were put in place to prevent falls during this visit? Instructed Patient to Remain Seated (Not on Exam Table) Until Exam and did sitting in wheelchair PATIENT GENDER DATA: Female. status: : No status: NO. PATIENT RELEVANT IMPLANT DATA REVIEWED: Not Applicable PATIENT PRESENTS WITH AN IMPLANTABLE OR ATTACHED WEED SPRAYER: No RADIOLOGY DEPARTMENT: General X-ray: Exam(s) Completed: Upper Extremity X-Ray(s): Fingers/Thumb, right PERIPHERAL IV DATA: Not applicable SIGNED BY: RT Rafa(R) November 25, 2023 7:04 PM documented in this encounter [facility] 11-04-2023 History of Present illness Narrative Radiology Service Progress Note PATIENT NAME: Irma Stewart DATE OF SERVICE: November 04, 2023 TIME: 2:22 PM PATIENT IDENTITY VERIFICATION COMPLETED USING TWO (2) IDENTIFIERS: Name and Date of confirmed by patient verbally. FALL SCREENING: Has the patient had 2 falls in the last year or 1 fall with injury or currently using an Ambulatory Assistive Device (Walker, Cane, Wheelchair, Crutches, etc.)? No PATIENT GENDER DATA: Female. status: : No status: NO. PATIENT RELEVANT IMPLANT DATA REVIEWED: Yes RADIOLOGY DEPARTMENT: General X-ray: Exam(s) Completed: Chest X-Ray PERIPHERAL IV DATA: Not applicable SIGNED BY: RT Micheal(R) November 04, 2023 2:22 PM documented in this encounter [facility] 10-04-2023 Miscellaneous Notes ROSALIA: 08/09/2023 Last refill: 08/09/2023 QTY: 60 Refills: 1 documented in this encounter [facility] 10-04-2023 Miscellaneous Notes ROSALIA: 08/09/2023 Last refill: 08/13/2023 QTY: 60 Refills: 1 documented in this encounter [facility] 10-02-2023 Miscellaneous Notes Order faxed. Orders placed. Please fax pulse ox order as requested. Thank you Lala Harrison APRN.SOLE INKER Orders pended documented in this encounter [facility] 10-01-2023 Miscellaneous Notes Spoke to [facility]pharmacist, Patient has refills of Alcohol swabs, Pharmacy will get ready for Patient to pickup. Nidia Silverio LPN documented in this encounter [facility] 10-01-2023 Miscellaneous Notes Spoke to [facility]acist, Patient has refills of BD Ultrafine pen needles 31x3/16. Pharmacy will get ready for Patient to pickup. Nidia Silverio LPN documented in this encounter [facility] 10-01-2023 Miscellaneous Notes Patient has been identified by name and date of : Yes Patient phones for refill(s): Requested Prescriptions Pending Prescriptions Disp Refills metoprolol tartrate, short acting, (LOPRESSOR) 50 mg tablet 180 tablet 0 Sig: Take 1 tablet by mouth two times a day. Date of last office visit in primary care: 05/30/2022 Date of next office visit in primary care: Visit date not found Last 2 Encounter Wt Readings: Date: Wt: 08/09/2023 113.9 kg (251 lb) 07/12/2023 114.1 kg (251 lb 9.6 oz) Previous labs/tests for medication: Blood Pressure: BUN (mg/dL) Date Value 07/12/2023 10 09/19/2021 13 Sodium (mmol/L) Date Value 07/12/2023 135 09/19/2021 140 Last 1 Encounter BP Readings: Date: BP: 08/09/2023 113/83 Please advise. Thank you. Nidia Silverio LPN. documented in this encounter [facility] 10-01-2023 Miscellaneous Notes [facility]oke to [facility]ist, Patient has refills of Crestor, will get ready for Patient to pickup. Patient has been identified by name and date of : Yes Patient phones for refill(s): Requested Prescriptions Pending Prescriptions Disp Refills potassium chloride (K-TAB) 10 mEq tablet 90 tablet 1 Sig: Take 1 tablet by mouth daily with breakfast. Take with lasix Date of last office visit in primary care: 08/09/2023 Date of next office visit in primary care: 11/12/2023 Last 2 Encounter Wt Readings: Date: Wt: 08/09/2023 113.9 kg (251 lb) 07/12/2023 114.1 kg (251 lb 9.6 oz) Previous labs/tests for medication: Potassium: No components found for: POT Please advise. Thank you. Nidia Silverio LPN. documented in this encounter [facility] 09-02-2023 Miscellaneous Notes Telephoned the patient regarding missed appt. Left a message. 2nd attempt Telephoned the patient regarding missed appt. Left a message. 1st attempt Primary Care Pharmacy Rescheduling Outreach Call center, please contact patient and reschedule telephone and virtual visit for Diabetes management within ~4 week(s). (Visit length: 30 minutes) Thank you, Constance Humphries PharmD Primary Care Clinical Aircraft Ordnance Technician 08/30/2023 1:37 PM Called patient for scheduled pharmacy phone follow up; unable to reach after multiple attempts. Left VM with phone number to reschedule. Constance Humphries PharmD Primary Care Clinical Aircraft Ordnance Technician documented in this encounter [facility] 08-22-2023 Miscellaneous Notes Patient has been identified by name and date of : Yes Patient phones for refill(s): Requested Prescriptions Pending Prescriptions Disp Refills oxybutynin ER (DITROPAN XL) 10 mg 24 hr tablet 30 tablet 5 Sig: Take 1 tablet by mouth daily at bedtime. Date of last office visit in primary care: 08/09/2023 Date of next office visit in primary care: 11/12/2023 Please advise. Thank you. Iveth Nye LPN. documented in this encounter [facility] 08-13-2023 Miscellaneous Notes ok Patient states was unable to fill the script for the Lyrica 100 mg. On script it states not to start before 09/09/2023. If patient has been taking daily will be due for a refill. Please correct script. Call patient once encounter has been addressed. documented in this encounter [facility] 08-13-2023 Telephone encounter Note Patient has been identified by name and date of : No Patient phones for refill(s): Requested Prescriptions Pending Prescriptions Disp Refills furosemide (LASIX) 20 mg tablet 45 tablet 5 Sig: Take 1 tablet by mouth once daily. Alternate 2 pills with 1 pill daily Date of last office visit in primary care: 05/30/2022 Date of next office visit in primary care: Visit date not found Last 2 Encounter Wt Readings: Date: Wt: 08/09/2023 113.9 kg (251 lb) 07/12/2023 114.1 kg (251 lb 9.6 oz) Previous labs/tests for medication: Not applicable Please advise. Thank you. Anupama Andrade. [facility] 08-13-2023 Miscellaneous Notes Patient has been identified by name and date of : No Patient phones for refill(s): Requested Prescriptions Pending Prescriptions Disp Refills furosemide (LASIX) 20 mg tablet 45 tablet 5 Sig: Take 1 tablet by mouth once daily. Alternate 2 pills with 1 pill daily Date of last office visit in primary care: 05/30/2022 Date of next office visit in primary care: Visit date not found Last 2 Encounter Wt Readings: Date: Wt: 08/09/2023 113.9 kg (251 lb) 07/12/2023 114.1 kg (251 lb 9.6 oz) Previous labs/tests for medication: Not applicable Please advise. Thank you. Anupama Andrade. Patient has been identified by name and date of : Yes Last office visit in this department: 05/30/2022 RX INSTRUCTIONS: Patient aware RX will be sent to pharmacy. No need to notify patient. Patient phones requesting refills as follows: Requested Prescriptions Pending Prescriptions Disp Refills furosemide (LASIX) 20 mg tablet 45 tablet 5 Sig: Take 1 tablet by mouth once daily. Alternate 2 pills with 1 pill daily Please review and advise. Hema Mcclelland documented in this encounter [facility] 08-13-2023 Telephone encounter Note Patient has been identified by name and date of : Yes Last office visit in this department: 05/30/2022 RX INSTRUCTIONS: Patient aware RX will be sent to pharmacy. No need to notify patient. Patient phones requesting refills as follows: Requested Prescriptions Pending Prescriptions Disp Refills furosemide (LASIX) 20 mg tablet 45 tablet 5 Sig: Take 1 tablet by mouth once daily. Alternate 2 pills with 1 pill daily Please review and advise. Hema Mcclelland [facility] 08-09-2023 Instructions Jaime Spencer APRN.CRM SOLUTION ARCHITECT - 08/09/2023 2:34 PM EDT For diabetes: Continue on metformin once daily Continue with Lantus insulin 30 units daily For for pain: Increase pregabalin -Lyrica -from 125 mg twice daily to 175 mg twice daily. If still not getting enough relief from pain add Celebrex once daily Take omeprazole once daily while taking this to protect your stomach. Continue on with iron documented in this encounter [facility] 08-09-2023 History of Present illness Narrative SUBJECTIVE: Diabetic Foot Exam Never done Pap Testing Never done HPV Testing Never done Colorectal Cancer Screening Never done Mammogram Screening due on 05/20/2007 Shingrix Vaccine(1 of 2) Never done Hepatitis B Vaccine(1 of 3 - Risk 3-dose series) Never done Urine Albumin:Creatinine Ratio due on 10/02/2022 Covid-19 Vaccine(2022- season) due on 06/28/2023 Dilated Retinal Exam due on 07/31/2023 HPI Irma Stewart is a 63 year old female. PMH significant for ACTIVE PROBLEM LIST Esophageal Reflux Moderate Episode of Recurrent Major Depressive Disorder (Hcc) Panic Disorder Without Agoraphobia Somatization Disorder Irritable Bowel Syndrome Other and Unspecified Hyperlipidemia Schizophrenia (Hcc) Other Mixed Anxiety Disorders Controlled Type 2 Diabetes Mellitus Without Complication, With Long-Term Current Use of Insulin (Hcc) Benign Paroxysmal Vertigo of Both Ears She was seen by Lala harrison CNP July 12, 2023 for generalized pain. Office visit notes indicate she has been in [facility] for severe pain. Reported referred to orthopedic spine medicine Dr. Garcia. She notes last seen July 09, 2023 and diagnosed with fibromyalgia. Treated with Lyrica 100 mg twice daily. Noted neck and right hip pain status post fall. She was referred to fibromyalgia specialist. Seen by specialist: At her visit she reported shooting pain burning nausea headaches dizziness weakness burning eyes that are dry photosensitive fatigue and brain fog. History of chronic sciatic pain previously seen by pain management Dr. Marinelli for injections which were not helpful. Uses a wheelchair and scooter because of pain. High-dose Cymbalta ordered by psychiatry and counseling center. At her last visit noted to be very upset with pain in the office and going from crying to smiling with multiple concerns. No prior work-up noted for autoimmune causes, blood work ordered. She was provided with a Toradol shot in the office. Dose of Lyrica was increased. Considered steroids but A1c was uncontrolled. She was advised to follow-up in 2 weeks. Today reports she was diagnosed with fibromyalgia by Dr. Garcia at [facility] orthopedics. Reports she was referred to Dr. Conrad Springer, plans to see him at [facility] in [facility]. States he is a fibromyalgia specialist. She reports the increased dose of Lyrica has helped her pain. She reports decreased by about 40% since last seen. She reports seeing her hemoglobin A1c and resuming metformin 500 mg once daily. States she is tolerating this currently. Continues on insulin 30 units Lantus daily. She reports eating 1 meal daily at dinnertime, no other meals are reported. She reports being up all night due to pain. She reports sleeping through the day. She reports this is longstanding for her. All Fridays are little bit later DIABETES MELLITUS: She was last seen by Dr. Johnson May 27, 2023. Stopped dulaglutide due to intolerance. Glargine insulin return to previous dose of 30 units daily. 3-month follow-up recommended. Without report of excessive thirst or increased frequency of urination, chest pain or dyspnea , numbness, tingling or pain in extremities, new or unusual visual symptoms, low sugar/hypoglycemic reactions, weight loss/gain, lightheadedness/dizziness, and bowel changes/loose stools. Home glucose readings 79-110. Patient's last HgA1C was Hemoglobin A1C (%) Date Value 07/12/2023 8.2 02/20/2023 6.6 06/23/2021 6.0 08/31/2020 6.4 Hemoglobin A1C (POCT) (%) Date Value 07/12/2023 8.4 ) Last 3 Encounter BP Readings: Date: BP: 07/12/2023 120/74 05/23/2023 120/77 03/26/2023 128/78 Review of Systems Constitutional: Negative. Musculoskeletal: Positive for arthralgias. Objective BP 113/83 Pulse 78 Wt 113.9 kg (251 lb) BMI 44.46 kg/m Physical Exam Vitals and nursing note reviewed. Constitutional: Appearance: Normal appearance. HENT: Head: Normocephalic and atraumatic. Eyes: Conjunctiva/sclera: Conjunctivae normal. Cardiovascular: Rate and Rhythm: Normal rate. Pulmonary: Effort: Pulmonary effort is normal. Skin: General: Skin is warm and dry. Neurological: Mental Status: She is alert. Mental status is at baseline. ALLERGIES Allergen Reactions Betadine [Povidone-* Unknown Glimepiride Intolerance Diarrhea Haldol [Haloperidol] Other: See Comments Headache/hallucinations [place] Other: See Comments Hallucinations Metformin Diarrhea Neurontin [Gabapent* Intolerance felt poorly Penicillins Unknown Okay to take amoxil Tylenol [Acetaminop* Intolerance Victoza [Liraglutid* GI Upset Medications alcohol swabs Apply 1 application to affected area three times daily. alcohol swabs Apply 1 application to affected area three times daily. blood sugar diagnostic (BLOOD GLUCOSE TEST) test strip Test blood sugar(s) 3 times daily. Dx: Type 2 DM - Controlled E11.9 Insulin: Yes blood sugar diagnostic (BLOOD GLUCOSE TEST) test strip Test blood sugar(s) 3 times daily. Dx: Type 2 DM - Controlled E11.9 Insulin: Yes celecoxib (CELEBREX) 200 mg capsule Take 1 capsule by mouth once daily. divalproex DR (DEPAKOTE) 500 mg EC tablet Take 750 mg by mouth once daily. Daily in AM, extended release DULoxetine 60 mg CDRS Take 60 mg by mouth twice daily. 60mg morning 40 evening ergocalciferol 50,000 unit capsule (VITAMIN D2, DRISDOL) Take 1 capsule by mouth two times a week. TO BE TAKEN ORALLY DIRECTED. Take 1 tablet by mouth twice weekly [id number], then decrease to 1 tablet weekly. ferrous sulfate 325 mg (65 mg iron) tablet Take 1 tablet by mouth two times a day with meals. furosemide (LASIX) 20 mg tablet Take 1 tablet by mouth once daily. Alternate 2 pills with 1 pill daily Insulin [place], Disposable, (BD ULTRAFINE III MINI PEN) 31 gauge x 3/16 1 Each twice daily. Lancets lancets Test blood sugar(s) 3 times daily. Dx: Type 2 DM - Controlled E11.9 Insulin: Yes Lancets lancets Test blood sugar(s) 3 times daily. Dx: Type 2 DM - Controlled E11.9 Insulin: Yes metFORMIN (GLUCOPHAGE) 500 mg tablet Take 1 tablet by mouth daily with breakfast. metoprolol tartrate, short acting, (LOPRESSOR) 50 mg tablet Take 1 tablet by mouth twice daily. omeprazole (PRILOSEC) 20 mg capsule Take 1 capsule by mouth once daily. oxybutynin ER (DITROPAN XL) 10 mg 24 hr tablet Take 1 tablet by mouth daily at bedtime. potassium chloride (K-TAB) 10 mEq tablet TAKE 1 TABLET BY MOUTH DAILY WITH BREAKFAST. TAKE WITH LASIX pregabalin (LYRICA) 100 mg capsule Take 1 capsule by mouth twice daily for 90 days. pregabalin (LYRICA) 75 mg capsule Take 1 capsule by mouth two times a day for 60 days. Take with 100mg tablet to equal 175mg dose QUEtiapine (SEROQUEL) 100 mg tablet Take 100 mg by mouth daily at bedtime. rosuvastatin (CRESTOR) 10 mg tablet Take 1 tablet by mouth daily at bedtime. SEMGLEE,INSULIN GLARG-YFGN,PEN 100 unit/mL (3 mL) insulin pen INJECT 30 UNITS SUBCUTANEOUSLY ONCE DAILY triamcinolone acetonide (KENALOG) 0.5 % cream Apply 1 application to affected area two times a day. For rash/itching. Apply sparingly. Avoid face/skin fold. triamcinolone acetonide (KENALOG) 0.5 % cream Apply 1 application to affected area two times a day. For rash/itching. Apply sparingly. Avoid face/skin fold. ZOLOFT 100 MG TAB Take one (1) and one half (1/2) tablets two (2) times daily. 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 Esophageal reflux Essential hypertension, benign KATHY (generalized anxiety disorder) GERD (gastroesophageal reflux disease) Headache(784.0) Hemorrhage of gastrointestinal tract, unspecified HTN (hypertension) Hypercholesteremia Hypothyroid IBS (irritable bowel syndrome) Internal hemorrhoids without mention of complication Intertrigo Irritable bowel syndrome Lumbar radiculopathy Migraine without aura Migraine, unspecified, without mention of intractable migraine without mention of status migrainosus Morbid obesity (HCC) Myalgia and myositis, unspecified Obesity, unspecified Onychomycosis JAYLYN (obstructive sleep apnea) Osteoarthrosis Other acute reactions to stress Other anxiety states Panic disorder Panic disorder without agoraphobia Pedal edema PMH - PAST MEDICAL HISTORY OF joint pain Pure hypercholesterolemia Schizophrenia (HCC) Sciatica, right side Sleep related bruxism Temporomandibular joint disorders, unspecified TMJ syndrome Unspecified menopausal and postmenopausal disorder Uterine prolapse without mention of vaginal wall prolapse Venous insufficiency of both lower extremities Vitamin D deficiency Social History Tobacco Use Smoking status: Never Smokeless tobacco: Never Vaping Use Vaping Use: Never used Substance Use Topics Alcohol use: No Drug use: Never Component Latest Ref Rng & Units 04/10/2022 10/09/2022 02/20/2023 02/22/2023 07/12/2023 WBC 3.70 - 11.00 k/uL 5.40 5.71 4.18 RBC 3.90 - 5.20 m/uL 4.55 4.62 4.44 Hemoglobin 11.5 - 15.5 g/dL 13.8 14.1 13.9 Hematocrit 36.0 - 46.0 % 42.8 43.5 42.8 MCV 80.0 - 100.0 fL 94.1 94.2 96.4 MCH 26.0 - 34.0 pg 30.3 30.5 31.3 MCHC 30.5 - 36.0 g/dL 32.2 32.4 32.5 RDW-CV 11.5 - 15.0 % 12.7 12.9 12.5 Platelet Count 150 - 400 k/uL 160 195 144 (L) MPV 9.0 - 12.7 fL 10.9 11.0 11.3 Neut% % 53.8 Abs Neut (ANC) 1.45 - 7.50 k/uL 2.25 Lymph% % 36.4 Abs Lymph 1.00 - 4.00 k/uL 1.52 Trinity% % 6.7 Abs Trinity <0.87 k/uL 0.28 Eosin% % 2.2 Abs Eosin <0.46 k/uL 0.09 Baso% % 0.7 Abs Baso <0.11 k/uL 0.03 Immature Gran % % 0.2 IMMATURE GRANS (ABS) <0.10 k/uL <0.03 NRBC /100 WBC 0.0 Absolute nRBC <0.01 k/uL <0.01 <0.01 <0.01 DTYPE Auto Protein, Total 6.3 - 8.0 g/dL 6.8 6.7 6.7 6.5 Albumin 3.9 - 4.9 g/dL 4.0 4.2 4.0 4.2 Calcium 8.5 - 10.2 mg/dL 9.3 9.7 9.2 Bilirubin, Total 0.2 - 1.3 mg/dL 0.3 0.3 0.4 0.3 Alkaline Phosphatase 34 - 123 U/L 71 75 70 72 AST 13 - 35 U/L 18 19 20 11 (L) ALT 7 - 38 U/L 10 13 10 12 Glucose 74 - 99 mg/dL 172 (H) 112 (H) 420 (H) BUN 7 - 21 mg/dL 8 12 10 Creatinine 0.58 - 0.96 mg/dL 0.60 0.82 0.73 Sodium 136 - 144 mmol/L 138 139 135 (L) Potassium 3.7 - 5.1 mmol/L 4.5 4.2 4.7 Chloride 97 - 105 mmol/L 100 100 93 (L) CO2 22 - 30 mmol/L 23 26 26 Anion Gap 9 - 18 mmol/L 15 13 16 eGFR >=60 mL/min/1.73m 102 81 93 GLUCOSE UA (POCT) Negative mg/dL >=1000 (A) BILIRUBIN UA (POCT) Negative Small (A) KETONE UA (POCT) Negative mg/dL 80 (A) SPECIFIC GRAVITY UA (POCT) 1.005 - 1.030 1.025 HEMOGLOBIN/BLOOD UA (POCT) Negative Negative PH UA (POCT) 4.5 - 8.0 5.5 PROTEIN UA (POCT) Negative mg/dL Trace (A) UROBILINOGEN UA (POCT) Normal E.U./dL 0.2 NITRITE UA (POCT) Negative Negative LEUKOCYTES UA (POCT) Negative Negative COLOR UA (POCT) Yellow CLARITY UA (POCT) Clear Cholesterol, Total <200 mg/dL 207 (H) 206 (H) 195 Triglyceride <150 mg/dL 264 (H) 225 (H) 257 (H) HDL Cholesterol >39 mg/dL 58 55 55 Non HDL Cholesterol <130 mg/dL 149 (H) 151 (H) 140 (H) Fasting Time hrs 12 12 12 VLDL Cholesterol <30 mg/dL 53 (H) 45 (H) 51 (H) TC:HDL Ratio <5.10 3.57 3.75 3.55 LDL Cholesterol <100 mg/dL 96 106 (H) 89 LDL:HDL Ratio <2.54 1.66 1.93 1.62 Bilirubin, Conjug <0.2 mg/dL <0.2 Iron 41 - 186 ug/dL 59 114 TIBC 232 - 386 ug/dL 314 270 Transferrin Saturation 15.0 - 57.0 % 18.8 42.2 NANCY Negative Positive (A) NANCY Titer 1:80 NANCY Pattern Nuclear homogeneous Hemoglobin A1C 4.3 - 5.6 % 7.1 (H) 6.6 (H) 8.2 (H) Estimated Average Glucose mg/dL 157 143 189 Vitamin D 25 Hydroxy 31.0 - 80.0 ng/mL 49.9 67.5 TSH 0.270 - 4.200 mIU/L 2.400 1.780 3.150 Ferritin 14.7 - 205.1 ng/mL 48.8 131.0 Vitamin B12 232 - 1,245 pg/mL 541 >2,000 (H) Hemoglobin A1C (POCT) 4.2 - 5.6 % 8.4 (A) WSR 0 - 20 mm/hr 10 CRP <0.9 mg/dL 0.4 Magnesium 1.7 - 2.3 mg/dL 1.8 Rheumatoid Factor <16 IU/mL <10 Free T4 0.9 - 1.7 ng/dL 1.1 Creatinine Date Value Ref Range Status 07/12/2023 0.73 0.58 - 0.96 mg/dL Final 02/20/2023 0.82 0.58 - 0.96 mg/dL Final 04/10/2022 0.60 0.58 - 0.96 mg/dL Final 09/19/2021 0.86 0.58 - 0.96 mg/dL Final ASSESSMENT/PLAN: 1. NANCY positive - ICD9: 795.79, ICD10: R76.8 (primary diagnosis) Schedule an appointment with rheumatology for further evaluation and treatment as indicated. - CONSULT TO RHEUM/IMMUN DISEASE 2. History of iron deficiency - ICD9: V12.3, ICD10: Z86.39 Continue on iron - FERROUS SULFATE 325 MG (65 MG IRON) TABLET 3. Esophageal reflux - ICD9: 530.81, ICD10: K21.9 Take PPI daily while taking Celebrex. - OMEPRAZOLE 20 MG CAPSULE,DELAYED RELEASE 6. Encounter for immunization - ICD9: V03.89, ICD10: Z23 - INFLUENZA VACCINE, AGE 6 MO - 64 YR, QUADRIVALENT (AFLURIA, FLULAVAL, FLUZONE) - PNEUMOCOCCAL VACCINE (PREVNAR 20) 7. Controlled type 2 diabetes mellitus without complication, with long-term current use of insulin (HCC) - ICD9: 250.00, V58.67, ICD10: E11.9, Z79.4 She reports resuming metformin 500 mg daily and fasting blood sugars of 79-112 on this. Recommend she keep her appointment with Of pharmacy. Check A1c in 3 months - ALBUMIN/CREAT RATIO RND UR - METFORMIN 500 MG TABLET - HGB A1C 9. Generalized pain - ICD9: 780.96, ICD10: R52 10. Burning sensation - ICD9: 782.0, ICD10: R20.8 11. Fibromyalgia - ICD9: 729.1, ICD10: M79.7 - PREGABALIN 75 MG CAPSULE 13. Rash and nonspecific skin eruption - ICD9: 782.1, ICD10: R21 - TRIAMCINOLONE ACETONIDE 0.5 % TOPICAL CREAM Advised: For diabetes: Continue on metformin once daily Continue with Lantus insulin 30 units daily For for pain: Increase pregabalin -Lyrica -from 125 mg twice daily to 175 mg twice daily. If still not getting enough relief from pain add Celebrex once daily Take omeprazole once daily while taking this to protect your stomach. Continue on with iron 3 mo follow up Jaime Spencer APRN.CRM SOLUTION ARCHITECT or Lala Spencer APRN.CRM SOLUTION ARCHITECT Jaime Spencer APRN.CNS Medical Decision Making: Problems: Moderate: 2+ stable chronic illnesses Data: Unique test(s) ordered: 1 Risk: Moderate: Drug management Medical Decision Making Level: 4 - Moderate documented in this encounter [facility] 07-15-2023 Miscellaneous Notes Pt calling for : 1)lab results. Pt still not feeling well and she was dx with Fibromyalgia on 07-09-23. 2)blood sugar meter quit. Requesting new one be sent unable to test until she gets a new one. Requesting everything be sent to [facility]. Romi Pandya LPN documented in this encounter [facility] 07-15-2023 Hospital Discharge instructions Patient Education 07/15/2023 01:52:49 Managing Fibromyalgia Managing Fibromyalgia SMALL: BIG: Fibromyalgia is a chronic illness that causes pain in specific points on the body, stiffness, and constant tiredness (fatigue). But it doesn t have to keep you from doing what you enjoy. You can feel better. You and your healthcare provider can work together to develop a plan. Take medicines as directed You may be given medicines to help reduce pain and improve sleep. Several medications are approved to treat fibromyalgia. Two were originally designed to treat depression. They are duloxetine, and milnacipran. A third, called pregaballin, was developed to treat nerve pain. Other medicines include pain relievers such as acetaminophen or stronger opioids. These may be prescribed short term. Nonsteroidal anti-inflammatory drugs (NSAIDs) are used to relieve pain. These include ibuprofen and naproxen. Get exercise Gentle exercise can help lessen your pain. Try these tips: Choose activities that are gentle on your joints, such as walking, biking, and swimming or other water exercises. Don t push yourself too hard. Build up your strength and endurance slowly, over time. Stick to it. For the most relief, exercise should become part of your daily life. Get a good night s rest To help you get more sleep, try the tips below: Sleep only in a bed, not on a couch or chair. Don t watch TV, read, or work in bed. Go to bed and get up at the same time each day. Try not to take naps. Don t use alcohol, caffeine, or tobacco for at least 3 hours before going to bed. Don t drink fluids in the evening to avoid having to get up to urinate. Other things you can do No one knows what causes fibromyalgia. But stress, poor eating habits, and extra weight can make it worse. These tips may help you feel better: Eat a balanced diet with plenty of fruits and vegetables, whole grains, lean protein, and low-fat or nonfat dairy products. Maintain a healthy weight. Learn ways to reduce or manage the stress in your life. Ask your healthcare provider for resources to help you make changes. Or check out the resources below. Resources Arthritis Foundation www.arthritis.org National Fibromyalgia Association www.fmaware.org [place] Fibromyalgia Syndrome Association www.afsafund.org 2196-1183 [facility]. [address] [place] [address], [place] [address]. All rights reserved. This information is not intended as a substitute for professional medical care. Always follow your healthcare professional's instructions. Follow Up Care 07/15/2023 01:34:54 With:NAN MARQUIS Address: IN [place] FOR ER PT REFERRALS ONLY When:2-4 days [facility] Dimitris 07-15-2023 Note Discharge Instructions Thank you for allowing Nan to assist you with your healthcare needs. The following is important discharge information regarding your hospital visit. Diagnosis from Today's Visit Fibromyalgia What to Do Next Instructions from Your Care Team No qualifying data available. Post Acute Orders No qualifying data available. You Need to Schedule the Following Appointments Follow Up with NAN MARQUIS When Within 2-4 days Where: IN PER [facility] FOR ER PT REFERRALS ONLY Allergies Haldol lithium traMADol Medications Please ask your primary doctor or pharmacist before taking any other medication not listed, including over the counter drugs, herbal medications, vitamins and or supplements as they may interact with your home medications. What How Much When Why Instructions Last Dose New acetaminophen-hydrocodone (Burchard 325- 5 mg oral tablet) 1 tab(s) by mouth Every 8 hours as needed for as needed for pain Fibromyalgia Duration: 3 Days Printed Prescription Please take this list to your next doctor s visit. Bring all medications you take, including over the counter medications, herbals and other supplements with you to your doctor s visit. Patients and families are reminded to discard old lists and to update any records with all medication providers or retail pharmacies. Education Materials Managing Fibromyalgia SMALL: BIG: Fibromyalgia is a chronic illness that causes pain in specific points on the body, stiffness, and constant tiredness (fatigue). But it doesn t have to keep you from doing what you enjoy. You can feel better. You and your healthcare provider can work together to develop a plan. Take medicines as directed You may be given medicines to help reduce pain and improve sleep. Several medications are approved to treat fibromyalgia. Two were originally designed to treat depression. They are duloxetine, and milnacipran. A third, called pregaballin, was developed to treat nerve pain. Other medicines include pain relievers such as acetaminophen or stronger opioids. These may be prescribed short term. Nonsteroidal anti-inflammatory drugs (NSAIDs) are used to relieve pain. These include ibuprofen and naproxen. Get exercise Gentle exercise can help lessen your pain. Try these tips: Choose activities that are gentle on your joints, such as walking, biking, and swimming or other water exercises. Don t push yourself too hard. Build up your strength and endurance slowly, over time. Stick to it. For the most relief, exercise should become part of your daily life. Get a good night s rest To help you get more sleep, try the tips below: Sleep only in a bed, not on a couch or chair. Don t watch TV, read, or work in bed. Go to bed and get up at the same time each day. Try not to take naps. Don t use alcohol, caffeine, or tobacco for at least 3 hours before going to bed. Don t drink fluids in the evening to avoid having to get up to urinate. Other things you can do No one knows what causes fibromyalgia. But stress, poor eating habits, and extra weight can make it worse. These tips may help you feel better: Eat a balanced diet with plenty of fruits and vegetables, whole grains, lean protein, and low-fat or nonfat dairy products. Maintain a healthy weight. Learn ways to reduce or manage the stress in your life. Ask your healthcare provider for resources to help you make changes. Or check out the resources below. Resources Arthritis Foundation www.arthritis.org National Fibromyalgia Association www.fmaware.org [place] Fibromyalgia Syndrome Association www.afsafund.org 5133-4588 [facility]. [address] [place] [address]. All rights reserved. This information is not intended as a substitute for professional medical care. Always follow your healthcare professional's instructions. Additional Information VACCINATE! IT SAVES LIVES! Members of the community who have not yet received the COVID-19 vaccine and would like to receive it can visit one of [facility] vaccine clinics. There are many vaccine clinic locations within the [facility]. For locations and available times, please visit [email or web address].[place].go [email or web address] It is important to note that some COVID mobile vaccine clinics are held outdoors and may be canceled in rainy or stormy conditions. To learn more about pediatric vaccinations (ages 5-11), we invite you to visit the [facility] webpage. https://www.[email or web address].org/pag es/8369-Srecf-Vanpxzngnja-Frequent qs-Jsexr-Ftjnqfuhk.html To learn more about the COVID-19 vaccine, we invite you to visit the CDC website for a list of frequently asked questions. https://www.cdc.gov/coronavirus/-ncov/vaccines/faq.html [facility] Patient Portal Access Instructions: Stay connected with your healthcare team and access your personal medical information anytime with the [facility] Patient Portal. If you would like a full copy of your medical records please contact the [facility] Medical Records Department Saturday through Saturday between 8a.m. and 4:30p.m. Please follow the directions below to access the portal: 1.Access the email account you provided upon registration to the [facility].2.Look for an invitation email from [facility].3.Open the email and access the invitation link: Accept Invitation to [facility]4.Fill in the required field to create your account. Sign into [email or web address] with your username and password that you created in the above steps to stay up to date. You can then view a summary of results, a summary of your visits, and the ability to download your summaries to your computer or send the information securely to a physician. Remember that your healthcare information is confidential, so carefully consider who you will allow to register on the [facility] Patient Portal for access to your information. You can also access the [facility] Patient Portal on the [employer]. Simply click on Health Records under Health Data and then click on the [employer] logo. HOW TO SAFELY DISPOSE OF PRESCRIPTION MEDICATIONS Please use one of the following methods to safely dispose of your unused medications. 1.Use a drug disposal kit: the drug disposal pouch allows you to safely discard your old and unused drugs. Ask your nurse to give you one when you are discharged.2.Visit a local take-back location: Many local pharmacies and police departments have programs that collect old and unwanted prescription drugs. Call your local pharmacy or go to http://bit.[employer]/1Q1Hb5v to find one close to you.3.Make use of household items: Use cat litter or old coffee grounds to dispose medications if other options are not available. Mix your drugs with these household products, seal them in an airtight container and throw it into the garbage. Call [facility]: [phone] to be sure your drugs can be disposed of in this way. Some medicines may require a different approach.4.Never flush your medications down the toilet. IF YOU HAVE BEEN PRESCRIBED AN OPIOIDS FOR PAIN If you have been prescribed an opioid (such as hydrocodone, oxycodone or morphine), it is critical to understand the possible side effects and risks of opioid pain medications. Even when taken as directed, opioids can have several side effects including: Tolerance, meaning you might need to take more of a medication for the same pain relief. Nausea, vomiting and/or constipation. Sleepiness, dizziness, dry mouth, confusion, depression or itching. Physical dependence, meaning you have withdrawal symptoms when a medication is stopped ? this can develop within a few days. KNOW YOUR RESPONSIBILITIES It is important to know exactly how much and how often to take the opioid pain medications you are prescribed. Never take opioids in higher amounts or more often than prescribed. Do not combine opioids with alcohol or other drugs that cause drowsiness, such as benzodiazepines, also known as benzos, including diazepam and alprazolam, muscle relaxants or sleep aids. Never sell or share prescription opioids. This is illegal. Store opioids in a secure place and out of reach of others (including children, family, friends and visitors). The last page(s) of this document has been signed and retained as a CHART COPY Signatures Patient Education Materials Managing Fibromyalgia Medication Leaflets My discharge plan and instructions have been reviewed and explained to me and IPAT BETINA understand my current condition and have read and understand these discharge instructions. I have received a written copy of the plan/instructions. If I have questions, I am aware that I should contact my doctor. Patient/Mix House Tender Signature: Date/Time: Relationship to Patient: ___ Witness Name/Signature: Date/Time: [facility] 07-12-2023 Nurse Note Pain level before Toradol injection at 11:28 AM 08/06 Pain level after injection at 11:37 AM was 11/06 documented in this encounter [facility] 07-12-2023 History of Present illness Narrative CC: Patient presents with: ED Follow-up: [facility] 06/29/23 HPI Irma Stewart is a 63 year old female who presents today for fibromyalgia pain. This is an established patient of Dr. Hackett's but my first time evaluating her. Has been in the ER in [place] for severe pain, per patient received multiple narcotics, and referred to orthopedic/spine medicine Dr. Garcia. Last seen by Dr. Garcia 07/09 and diagnosed with fibromyalgia, which she was diagnosed previously and has been on lyrica 100mg BID. Also evaluated for her neck and right hip pain, post fall. No concerns noted in Dr. Garcia's note but patient referred to fibromyalgia specialist. Pain has been increasing over the last 6 months and worsening recently. Is unable to sleep because of pain. Still with pain shooting, burning, nausea, headaches, dizziness, weakness, and dry burning eyes. States her eyes are sensitive to light and she feels terrible. Reports fatigue, brain fog and is miserable. Also with chronic sciatic pain. Has seen Dr. Beatty for injections were not helpful but this was years ago. Uses wheelchair and scooter because of pain. Is on high dose of cymbalta as ordered by psychiatry at the counseling center. 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 Esophageal reflux Essential hypertension, benign KATHY (generalized anxiety disorder) GERD (gastroesophageal reflux disease) Headache(784.0) Hemorrhage of gastrointestinal tract, unspecified HTN (hypertension) Hypercholesteremia Hypothyroid IBS (irritable bowel syndrome) Internal hemorrhoids without mention of complication Intertrigo Irritable bowel syndrome Lumbar radiculopathy Migraine without aura Migraine, unspecified, without mention of intractable migraine without mention of status migrainosus Morbid obesity (HCC) Myalgia and myositis, unspecified Obesity, unspecified Onychomycosis JAYLYN (obstructive sleep apnea) Osteoarthrosis Other acute reactions to stress Other anxiety states Panic disorder Panic disorder without agoraphobia Pedal edema PMH - PAST MEDICAL HISTORY OF joint pain Pure hypercholesterolemia Schizophrenia (HCC) Sciatica, right side Sleep related bruxism Temporomandibular joint disorders, unspecified TMJ syndrome Unspecified menopausal and postmenopausal disorder Uterine prolapse without mention of vaginal wall prolapse Venous insufficiency of both lower extremities Vitamin D deficiency PAST SURGICAL HISTORY Procedure Laterality Date ARTHRP KNE CONDYLE&PLATU MEDIAL&LAT COMPARTMENTS Right 04/19/2010 COLONOSCOPY W/BIOPSY SINGLE/MULTIPLE 04/24/07 EGD 1994 LAPS ABD PRTM&OMENTUM DX W/WO SPEC BR/WA SPX Laparoscopy OTHER SURGICAL HISTORY (PLEASE SPECIFY) HX Spine injections, sees OTHER SURGICAL HISTORY (PLEASE SPECIFY) HX radiofrequency implant for chronic back pain. TONSILLECTOMY PRIMARY/SECONDARY <AGE 13 Tonsillectomy in her 20s TX INGROWN TOENAIL Left VAGINAL HYSTERECTOMY UTERUS 250 GM/< 08/17/1997 Hysterectomy, vaginal ALLERGIES Betadine [Povidone-Iodine], Glimepiride, Haldol [Haloperidol], [place], Metformin, Neurontin [Gabapentin], Penicillins, Tylenol [Acetaminophen], and Victoza [Liraglutide] MEDICATIONS metoprolol tartrate, short acting, (LOPRESSOR) 50 mg tablet Take 1 tablet by mouth twice daily. SEMGLEE,INSULIN GLARG-YFGN,PEN 100 unit/mL (3 mL) insulin pen INJECT 30 UNITS SUBCUTANEOUSLY ONCE DAILY pregabalin (LYRICA) 100 mg capsule Take 1 capsule by mouth twice daily for 90 days. blood sugar diagnostic (BLOOD GLUCOSE TEST) test strip Test blood sugar(s) 3 times daily. Dx: Type 2 DM - Controlled E11.9 Insulin: Yes Lancets lancets Test blood sugar(s) 3 times daily. Dx: Type 2 DM - Controlled E11.9 Insulin: Yes Insulin [place], Disposable, (BD ULTRAFINE III MINI PEN) 31 gauge x 3/16 1 Each twice daily. potassium chloride (K-TAB) 10 mEq tablet TAKE 1 TABLET BY MOUTH DAILY WITH BREAKFAST. TAKE WITH LASIX alcohol swabs Apply 1 application to affected area three times daily. oxybutynin ER (DITROPAN XL) 10 mg 24 hr tablet Take 1 tablet by mouth daily at bedtime. rosuvastatin (CRESTOR) 10 mg tablet Take 1 tablet by mouth daily at bedtime. ergocalciferol 50,000 unit capsule (VITAMIN D2, DRISDOL) Take 1 capsule by mouth two times a week. TO BE TAKEN ORALLY DIRECTED. Take 1 tablet by mouth twice weekly [id number], then decrease to 1 tablet weekly. ferrous sulfate 325 mg (65 mg iron) tablet TAKE 1 TABLET BY MOUTH TWICE A DAY WITH MEALS furosemide (LASIX) 20 mg tablet Take 1 tablet by mouth once daily. Alternate 2 pills with 1 pill daily triamcinolone acetonide (KENALOG) 0.5 % cream Apply 1 application to affected area twice daily. For rash/itching. Apply sparingly. Avoid face/skin fold. omeprazole (PRILOSEC) 20 mg capsule Take 1 capsule by mouth once daily. divalproex DR (DEPAKOTE) 500 mg EC tablet Take 750 mg by mouth once daily. Daily in AM, extended release DULoxetine 60 mg CDRS Take 60 mg by mouth twice daily. 60mg morning 40 evening QUEtiapine (SEROQUEL) 100 mg tablet Take 100 mg by mouth daily at bedtime. ZOLOFT 100 MG TAB Take one (1) and one half (1/2) tablets two (2) times daily. FAMILY HISTORY Problem Relation Age of Onset Diabetes Paternal Grandmother Cancer Mother lymphoma Heart Mother mitral valve prolapse Heart Father x4 bypass Hypertension Father No Known Problems Brother Colon Cancer Other maternal aunt other (lupus) Other other (lung cancer) Other Social History Tobacco Use Smoking status: Never Smokeless tobacco: Never Vaping Use Vaping Use: Never used Substance Use Topics Alcohol use: No Drug use: Never PHYSICAL EXAM BP 120/74 Pulse 110 Temp 36.3 C (97.3 F) (Tympanic) Resp 16 Wt 114.1 kg (251 lb 9.6 oz) SpO2 98% BMI 44.57 kg/m General Appearance: well appearing, in no acute distress, alert Pysch: Very tearful in office. Difficulty with eye contact but possibly related to her schizophrenia diagnosis. Skin: Skin color, texture, turgor normal for age; Eyes: PERRLA, EOM's intact, conjunctiva pink and moist, no icterus, sclera white, non-injected Neck: Thyroid normal size and symmetric without palpable nodules, Neck supple, No adenopathy Lymph nodes: No cervical lymphadenopathy and No supraclavicular lymphadenopathy Lungs: Lungs clear to auscultation. No wheezing, rhonchi, rales. Heart: RRR without murmur, gallop, or rubs. No ectopy Abdomen: Abdomen soft, non-tender. Bowel sounds normal. No masses, organomegaly Neurological: Gait normal. Reflexes normal and symmetric. Sensation intact., speech normal, muscle tone normal, muscle strength normal Health maintenance reviewed with patient: Diabetic Foot Exam Never done Pap Testing Never done HPV Testing Never done Colorectal Cancer Screening Never done Mammogram Screening due on 05/20/2007 Shingrix Vaccine(1 of 2) Never done Covid-19 Vaccine(3 - Pfizer series) due on 09/22/2021 Urine Albumin:Creatinine Ratio due on 10/02/2022 Pneumococcal Vaccine(2 - PCV) due on 10/02/2022 Influenza Vaccine(1) due on 06/28/2023 Dilated Retinal Exam due on 07/31/2023 HbA1C due on 08/22/2023 LDL Cholesterol due on 02/21/2024 Annual PCP Team Chronic Disease Visit due on 02/23/2024 DTaP,Tdap,Td Vaccine(3 - Td or Tdap) due on 10/02/2031 Hepatitis C Screening Discontinued HIV Screening Discontinued DATA REVIEWED: No new labs Outside chart from Dr. Garcia reviewed. ASSESSMENT/PLAN: 1. Generalized pain - ICD9: 780.96, ICD10: R52 (primary diagnosis) - patient very upset with pain in office and going from crying to smiling. Multiple concerns. No results she has ever been worked up for autoimmune cause. Will do blood work, give toradol shot and increase lyrica. Considered steroids but A1c uncontrolled. -follow up in 2 weeks - continue with plans to see fibromyalgia specialist. - SED RATE WESTERGREN - C-REACTIVE PROTEIN (CRP) - BASIC METABOLIC PNL - CBC + DIFF - MAGNESIUM BLD - RHEUMATOID FACTOR BL - NANCY BY IFA SCREEN - KETOROLAC 60 MG/2 ML INTRAMUSCULAR SOLUTION - PREGABALIN 25 MG CAPSULE 2. Burning sensation - ICD9: 782.0, ICD10: R20.8 As above - SED RATE WESTERGREN - C-REACTIVE PROTEIN (CRP) - BASIC METABOLIC PNL - CBC + DIFF - MAGNESIUM BLD - RHEUMATOID FACTOR BL - NANCY BY IFA SCREEN - VITAMIN B12 BLOOD - TSH BLD - T4 FREE/FREE THYROX - PREGABALIN 25 MG CAPSULE 3. Weakness - ICD9: 780.79, ICD10: R53.1 See #1 - SED RATE WESTERGREN - C-REACTIVE PROTEIN (CRP) - BASIC METABOLIC PNL - CBC + DIFF - MAGNESIUM BLD - RHEUMATOID FACTOR BL - NANCY BY IFA SCREEN - VITAMIN B12 BLOOD - UA DIP, URINE (POC) - TSH BLD - T4 FREE/FREE THYROX 4. Brain fog - ICD9: 799.59, ICD10: R41.89 See #1 - SED RATE WESTERGREN - C-REACTIVE PROTEIN (CRP) - BASIC METABOLIC PNL - CBC + DIFF - MAGNESIUM BLD - RHEUMATOID FACTOR BL - NANCY BY IFA SCREEN - UA DIP, URINE (POC) - TSH BLD - T4 FREE/FREE THYROX 5. Controlled type 2 diabetes mellitus without complication, with long-term current use of insulin (HCC) - ICD9: 250.00, V58.67, ICD10: E11.9, Z79.4 - uncontrolled but unable to be discussed in appointment today. Will need reviewed at 2 weeks follow up. - HEMOGLOBIN A1C (POC) 6. Fibromyalgia - ICD9: 729.1, ICD10: M79.7 See #1 - PREGABALIN 25 MG CAPSULE Prescription instructions reviewed with patient as applicable. Potential red flag symptoms discussed with the patient. Reviewed appropriate action plan to take if red flag symptoms occur. Patient agreeable to treatment plan. Lala Harrison APRN.CNP documented in this encounter [facility] 06-29-2023 Hospital Discharge instructions Patient Education 06/29/2023 21:16:37 Back Care Tips Back Care Tips Caring for your back These are things you can do to prevent a recurrence of acute back pain and to reduce symptoms from chronic back pain: Maintain a healthy weight. If you are overweight, losing weight will help most types of back pain. Exercise is an important part of recovery from most types of back pain. The muscles behind and in front of the spine support the back. This means strengthening both the back muscles and the abdominal muscles will provide better support for your spine. Swimming and brisk walking are good overall exercises to improve your fitness level. Practice safe lifting methods (below). Practice good posture when sitting, standing and walking. Avoid prolonged sitting. This puts more stress on the lower back than standing or walking. Wear quality shoes with sufficient arch support. Foot and ankle alignment can affect back symptoms. Women should avoid wearing high heels. Therapeutic massage can help relax the back muscles without stretching them. During the first 24 to 72 hours after an acute injury or flare-up of chronic back pain, apply an ice pack to the painful area for 20 minutes and then remove it for 20 minutes, over a period of 60 to 90 minutes, or several times a day. As a safety precaution, do not use a heating pad at bedtime. Sleeping on a heating pad can lead to skin stafford or tissue damage. You can alternate ice and heat therapies. Medicines Talk to your healthcare provider before using medicines, especially if you have other medical problems or are taking other medicines. You may use acetaminophen or ibuprofen to control pain, unless your healthcare provider prescribed other pain medicine. If you have chronic conditions like diabetes, liver or kidney disease, stomach ulcers, or gastrointestinal bleeding, or are taking blood thinners, talk with your healthcare provider before taking any medicines. Be careful if you are given prescription pain medicines, narcotics, or medicine for muscle spasm. They can cause drowsiness, affect your coordination, reflexes, and judgment. Do not drive or operate heavy machinery while taking these types of medicines. Take prescription pain medicine only as prescribed by your healthcare provider. Lumbar stretch Here is a simple stretching exercise that will help relax muscle spasm and keep your back more limber. If exercise makes your back pain worse, don t do it. Lie on your back with your knees bent and both feet on the ground. Slowly raise your left knee to your chest as you flatten your lower back against the floor. Hold for 5 seconds. Relax and repeat the exercise with your right knee. Do 10 of these exercises for each leg. Safe lifting method Don t bend over at the waist to lift an object off the floor. Instead, bend your knees and hips in a squat. Keep your back and head upright Hold the object close to your body, directly in front of you. Straighten your legs to lift the object. Lower the object to the floor in the reverse fashion. If you must slide something across the floor, push it. Posture tips Sitting Sit in chairs with straight backs or low-back support. Keep your knees lower than your hips, with your feet flat on the floor. When driving, sit up straight. Adjust the seat forward so you are not leaning toward the steering wheel. A small pillow or rolled towel behind your lower back may help if you are driving long distances. Standing When standing for long periods, shift most of your weight to one leg at a time. Alternate legs every few minutes. Sleeping The best way to sleep is on your side with your knees bent. Put a low pillow under your head to support your neck in a neutral spine position. Avoid thick pillows that bend your neck to one side. Put a pillow between your legs to further relax your lower back. If you sleep on your back, put pillows under your knees to support your legs in a slightly flexed position. Use a firm mattress. If your mattress sags, replace it, or use a 1/2-inch plywood board under the mattress to add support. Follow-up care Follow up with your healthcare provider, or as advised. If X-rays, a CT scan or an MRI scan were taken, they will be reviewed by a radiologist. You will be notified of any new findings that may affect your care. Call 911 Call 911 if any of the following occur: Trouble breathing Confusion Very drowsy Fainting or loss of consciousness Rapid or very slow heart rate Loss of bowel or bladder control When to seek medical advice Call your healthcare provider right away if any of the following occur: Pain becomes worse or spreads to your arms or legs Weakness or numbness in one or both arms or legs Numbness in the groin area [id number] [employer]. [address] [place] [address]. All rights reserved. This information is not intended as a substitute for professional medical care. Always follow your healthcare professional's instructions. Follow Up Care 06/29/2023 19:52:09 With:MARIBELL GARCIA DO, [facility] Address: [address] [facility] [place] [address] [phone] When:2-4 days With:Leny ALMAZAN Address: When:2-4 days With:WILLY HUTSON Address: [address] [place] [address] [phone] When:2-4 days [facility] 06-29-2023 Emergency department Discharge summary Discharge Instructions Thank you for allowing [facility] to assist you with your healthcare needs. The following is important discharge information regarding your hospital visit. Diagnosis from Today's Visit Dizziness x 2 years Leg pain-swelling x 2.5 years What to Do Next Instructions from Your Care Team No qualifying data available. Post Acute Orders No qualifying data available. You Need to Schedule the Following Appointments Follow Up with MARIBELL GARCIA DO, [facility] When Within 2-4 days Where: [address] [facility] [address] [facility] [place] [address] [phone] Follow Up with Leny ALMAZAN When Within 2-4 days Where: Follow Up with WILLY HUTSON When Within 2-4 days Where: [address] [place] [address] [phone] Allergies Haldol lithium traMADol Medications Please ask your primary doctor or pharmacist before taking any other medication not listed, including over the counter drugs, herbal medications, vitamins and or supplements as they may interact with your home medications. What How Much When Instructions Last Dose New baclofen (baclofen 20 mg oral tablet) 1 tab(s) by mouth Three (3) times a day Duration: 5 Days Printed Prescription Please take this list to your next doctor s visit. Bring all medications you take, including over the counter medications, herbals and other supplements with you to your doctor s visit. Patients and families are reminded to discard old lists and to update any records with all medication providers or retail pharmacies. Education Materials Back Care Tips Caring for your back These are things you can do to prevent a recurrence of acute back pain and to reduce symptoms from chronic back pain: Maintain a healthy weight. If you are overweight, losing weight will help most types of back pain. Exercise is an important part of recovery from most types of back pain. The muscles behind and in front of the spine support the back. This means strengthening both the back muscles and the abdominal muscles will provide better support for your spine. Swimming and brisk walking are good overall exercises to improve your fitness level. Practice safe lifting methods (below). Practice good posture when sitting, standing and walking. Avoid prolonged sitting. This puts more stress on the lower back than standing or walking. Wear quality shoes with sufficient arch support. Foot and ankle alignment can affect back symptoms. Women should avoid wearing high heels. Therapeutic massage can help relax the back muscles without stretching them. During the first 24 to 72 hours after an acute injury or flare-up of chronic back pain, apply an ice pack to the painful area for 20 minutes and then remove it for 20 minutes, over a period of 60 to 90 minutes, or several times a day. As a safety precaution, do not use a heating pad at bedtime. Sleeping on a heating pad can lead to skin stafford or tissue damage. You can alternate ice and heat therapies. Medicines Talk to your healthcare provider before using medicines, especially if you have other medical problems or are taking other medicines. You may use acetaminophen or ibuprofen to control pain, unless your healthcare provider prescribed other pain medicine. If you have chronic conditions like diabetes, liver or kidney disease, stomach ulcers, or gastrointestinal bleeding, or are taking blood thinners, talk with your healthcare provider before taking any medicines. Be careful if you are given prescription pain medicines, narcotics, or medicine for muscle spasm. They can cause drowsiness, affect your coordination, reflexes, and judgment. Do not drive or operate heavy machinery while taking these types of medicines. Take prescription pain medicine only as prescribed by your healthcare provider. Lumbar stretch Here is a simple stretching exercise that will help relax muscle spasm and keep your back more limber. If exercise makes your back pain worse, don t do it. Lie on your back with your knees bent and both feet on the ground. Slowly raise your left knee to your chest as you flatten your lower back against the floor. Hold for 5 seconds. Relax and repeat the exercise with your right knee. Do 10 of these exercises for each leg. Safe lifting method Don t bend over at the waist to lift an object off the floor. Instead, bend your knees and hips in a squat. Keep your back and head upright Hold the object close to your body, directly in front of you. Straighten your legs to lift the object. Lower the object to the floor in the reverse fashion. If you must slide something across the floor, push it. Posture tips Sitting Sit in chairs with straight backs or low-back support. Keep your knees lower than your hips, with your feet flat on the floor. When driving, sit up straight. Adjust the seat forward so you are not leaning toward the steering wheel. A small pillow or rolled towel behind your lower back may help if you are driving long distances. Standing When standing for long periods, shift most of your weight to one leg at a time. Alternate legs every few minutes. Sleeping The best way to sleep is on your side with your knees bent. Put a low pillow under your head to support your neck in a neutral spine position. Avoid thick pillows that bend your neck to one side. Put a pillow between your legs to further relax your lower back. If you sleep on your back, put pillows under your knees to support your legs in a slightly flexed position. Use a firm mattress. If your mattress sags, replace it, or use a 1/2-inch plywood board under the mattress to add support. Follow-up care Follow up with your healthcare provider, or as advised. If X-rays, a CT scan or an MRI scan were taken, they will be reviewed by a radiologist. You will be notified of any new findings that may affect your care. Call 911 Call 911 if any of the following occur: Trouble breathing Confusion Very drowsy Fainting or loss of consciousness Rapid or very slow heart rate Loss of bowel or bladder control When to seek medical advice Call your healthcare provider right away if any of the following occur: Pain becomes worse or spreads to your arms or legs Weakness or numbness in one or both arms or legs Numbness in the groin area [phone] [employer]. [address] [place] [address], [place] [address]. All rights reserved. This information is not intended as a substitute for professional medical care. Always follow your healthcare professional's instructions. Additional Information VACCINATE! IT SAVES LIVES! Members of the community who have not yet received the COVID-19 vaccine and would like to receive it can visit one of [facility] vaccine clinics. There are many vaccine clinic locations within the [facility] [address] [facility]. For locations and available times, please visit [email or web address] It is important to note that some COVID mobile vaccine clinics are held outdoors and may be canceled in rainy or stormy conditions. To learn more about pediatric vaccinations (ages 5-11), we invite you to visit the [employer] webpage. [email or web address] To learn more about the COVID-19 vaccine, we invite you to visit the CDC website for a list of frequently asked questions. https://www.cdc.gov/coronavirus/20 19-ncov/vaccines/faq.html [facility] Patient Portal Access Instructions: Stay connected with your healthcare team and access your personal medical information anytime with the [facility] Patient Portal. If you would like a full copy of your medical records please contact the [facility] Medical Records Department Saturday through Saturday between 8a.m. and 4:30p.m. Please follow the directions below to access the portal: 1.Access the email account you provided upon registration to the hospital.2.Look for an invitation email from [facility].3.Open the email and access the invitation link: Accept Invitation to [facility]4.Fill in the required field to create your account. Sign into [email or web address] with your username and password that you created in the above steps to stay up to date. You can then view a summary of results, a summary of your visits, and the ability to download your summaries to your computer or send the information securely to a physician. Remember that your healthcare information is confidential, so carefully consider who you will allow to register on the [facility] Patient Portal for access to your information. You can also access the [facility] Patient Portal on the [employer]. Simply click on Health Records under Health Data and then click on the [employer] logo. HOW TO SAFELY DISPOSE OF PRESCRIPTION MEDICATIONS Please use one of the following methods to safely dispose of your unused medications. 1.Use a drug disposal kit: the drug disposal pouch allows you to safely discard your old and unused drugs. Ask your nurse to give you one when you are discharged.2.Visit a local take-back location: Many local pharmacies and police departments have programs that collect old and unwanted prescription drugs. Call your local pharmacy or go to http://[employer]/4Y0Bx4w to find one close to you.3.Make use of household items: Use cat litter or old coffee grounds to dispose medications if other options are not available. Mix your drugs with these household products, seal them in an airtight container and throw it into the garbage. Call [facility]: [phone] to be sure your drugs can be disposed of in this way. Some medicines may require a different approach.4.Never flush your medications down the toilet. IF YOU HAVE BEEN PRESCRIBED AN OPIOIDS FOR PAIN If you have been prescribed an opioid (such as hydrocodone, oxycodone or morphine), it is critical to understand the possible side effects and risks of opioid pain medications. Even when taken as directed, opioids can have several side effects including: Tolerance, meaning you might need to take more of a medication for the same pain relief. Nausea, vomiting and/or constipation. Sleepiness, dizziness, dry mouth, confusion, depression or itching. Physical dependence, meaning you have withdrawal symptoms when a medication is stopped ? this can develop within a few days. KNOW YOUR RESPONSIBILITIES It is important to know exactly how much and how often to take the opioid pain medications you are prescribed. Never take opioids in higher amounts or more often than prescribed. Do not combine opioids with alcohol or other drugs that cause drowsiness, such as benzodiazepines, also known as benzos, including diazepam and alprazolam, muscle relaxants or sleep aids. Never sell or share prescription opioids. This is illegal. Store opioids in a secure place and out of reach of others (including children, family, friends and visitors). The last page(s) of this document has been signed and retained as a CHART COPY Signatures Patient Education Materials Back Care Tips Medication Leaflets My discharge plan and instructions have been reviewed and explained to me and IPAT BETINA understand my current condition and have read and understand these discharge instructions. I have received a written copy of the plan/instructions. If I have questions, I am aware that I should contact my doctor. 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 Last refill: 04/08/2023 QTY: 60 Refills: 1 documented in this encounter [facility] 05-28-2023 Miscellaneous Notes Per pharmacy distance visit 05/27/23. Pt was instructed to stop trulicity. Message left again for pt to return call to a nurse to verify no personal or family history of thyroid cancer per question from BEBA Reeves from 04/24/23 Pt called back and states she was confused. She has taken Victoza in the past. Pt willing to try the Trulicity. Hung up with patient and forgot to ask if she has any personal or family hx of thyroid cancer. LM for pt to return call to confirm this as Lala requested. Previous message states she was on victoza. Do we need to update the PA? Thank you Lala Harrison APRN.CNP Lala Carr Pt wrote this message into the Office via [employer] 3 days ago. Hi Brunilda, I was prescribed Ozempic by Fior Joseph a week ago this past . I forget who but someone from your office contacted me a few days ago and told me it was not covered. She said that I had to try three other medications and they have to not have worked for me in order to be able to have [employer] cover the Ozempic. I have been on Trulicity before but I don't think it agreed with me and I'm not exactly sure the reason for my retired doctor of 35 years had me on Trulicity. I'm taking Lantus now em night...and no Metformin...my blood sugars are controlled and I even dropped my A1C some. Fior Joseph wanted the Ozempic to help me with weight loss. My Ozempic was denied at [place], [place]. I don't know what I'm suppose to do at this point for something to aid me in losing weight. I will wait to hear from you. Thank you & Sincerely!! Irma = ) Jannette Prajapati Ma Left message to call office. 04/22/2023 1:33 PM Please let patient know below information. I will start her on trulicity. Same instruction and side effects as ozempic. Verify no personal or family history of thyroid cancer. Patient needs to follow up 4 weeks after starting trulicity. Thank you Lala Harrison APRN.CNP PA denied patient must have history 120 days therapy with three preferred. Patient has tried victoza which is preferred but had GI issues so would need to try other 2 listed. -byetta 5mcg or 10 mcg -trulicity 0.75, 1.5, 3, and 4.5 mg Please choose alternative and send to pharmacy Prior Authorization has been completed online at [facility] for ozempic, will await response. BRAVO- [id number] Please keep encounter open until final decision has been received and documented from insurance company. Camila Lees MA PRIOR AUTHORIZATION Medication for Prior Authorization: Ozempic Other formulary meds available : NO Insurance Company: [id number] phone number: Patient insurance ID number: [id number] Inocencia Lowery RN documented in this encounter [facility] 05-27-2023 Note HNO ID: [id number] Author: Ricardo Dinh RPh Service: ? Author Type: Pharmacist Type: Progress Notes Filed: 05/31/2023 2:06 PM Note Text: Primary Care Pharmacy Visit CC (Reason for Consult): (E11.9, Z79.4) Controlled type 2 diabetes mellitus without complication, with long-term current use of insulin (HCC) (primary encounter diagnosis) Goal(s): A1C < 7% Last Collaborating Provider Visit: 02/22/23 Irma Stewart is a 63 year old female presenting for follow up visit by telephone. Patient consents to pharmacy collaborative practice agreement. . HPI: Irma Stewart attends today's appointment by telephone. she is a [place] White FEMALE who is AANDO x3, pleasant, and cooperative. Today, she states that her chief concern is I couldn't handle the Trulicity. Did x2 doses of the Trulicity and she was in bed 5/7 days the first week and 4/7 days the second week. Could only eat soup. Previously on Victoza (with Dr. Latrell Stewart for 35 years) and also had severe nausea with the Victoza. Had to cancel multiple appointments. Blood glucose readings 79-100, no higher than 120 mg/dL. Doesn't eat sweets, doesn't drink SSBs. She was previously 314 lbs, and over the last 2 years has dropped to 251 lbs on her home scale yesterday. Tries to eat healthy. Eating a selectatarian/vegetarian diet based on whole foods. Trying to eat multiple salads a day. She attributes most of her weight gain to a series of deaths in the family and other catastrophic losses over 3-4 years in her past. She overate, stress ate, and comfort ate during this time, and it led to significant weight gain. (This was noted in Dr. Joseph's 04/11 note as well.) Past medical history reviewed. ALLERGIES Allergen Reactions Betadine [Povidone-* Unknown Glimepiride Intolerance Diarrhea Haldol [Haloperidol] Other: See Comments Headache/hallucinations [place] Other: See Comments Hallucinations Metformin Diarrhea Neurontin [Gabapent* Intolerance felt poorly Penicillins Unknown Okay to take amoxil Tylenol [Acetaminop* Intolerance Victoza [Liraglutid* GI Upset Current Outpatient Medications Medication Sig Dispense Refill dulaglutide (TRULICITY) 0.75 mg/0.5 mL pen injector Inject 0.75 mg subcutaneously one time a week. Inject dose once per week. Discard Pen After 4 Each 1 insulin glargine (LANTUS SOLOSTAR U-100 INSULIN) 100 unit/mL (3 mL) Inject 24 Units subcutaneously once daily. 15 mL 3 blood sugar diagnostic (BLOOD GLUCOSE TEST) test strip Test blood sugar(s) 3 times daily. Dx: Type 2 DM - Controlled E11.9 Insulin: Yes 50 Strip 2 Lancets lancets Test blood sugar(s) 3 times daily. Dx: Type 2 DM - Controlled E11.9 Insulin: Yes 100 Each 0 Insulin [place], Disposable, (BD ULTRAFINE III MINI PEN) 31 gauge x 3/16 1 Each twice daily. 100 Each 3 semaglutide (OZEMPIC) 0.25 mg or 0.5 mg (2 mg/3 mL) pen Inject 0.25mg weekly for 4 weeks and then increase dose to 0.5mg weekly. 3 mL 5 pregabalin (LYRICA) 100 mg capsule Take 1 capsule by mouth twice daily for 90 days. 60 capsule 1 metoprolol tartrate, short acting, (LOPRESSOR) 50 mg tablet Take 1 tablet by mouth twice daily. 180 tablet 3 potassium chloride (K-TAB) 10 mEq tablet TAKE 1 TABLET BY MOUTH DAILY WITH BREAKFAST. TAKE WITH LASIX 90 tablet 1 alcohol swabs Apply 1 application to affected area three times daily. 100 Each 5 oxybutynin ER (DITROPAN XL) 10 mg 24 hr tablet Take 1 tablet by mouth daily at bedtime. 30 tablet 5 rosuvastatin (CRESTOR) 10 mg tablet Take 1 tablet by mouth daily at bedtime. 90 tablet 3 ergocalciferol 50,000 unit capsule (VITAMIN D2, DRISDOL) Take 1 capsule by mouth two times a week. TO BE TAKEN ORALLY DIRECTED. Take 1 tablet by mouth twice weekly [id number], then decrease to 1 tablet weekly. 24 capsule 2 ferrous sulfate 325 mg (65 mg iron) tablet TAKE 1 TABLET BY MOUTH TWICE A DAY WITH MEALS 60 tablet 11 furosemide (LASIX) 20 mg tablet Take 1 tablet by mouth once daily. Alternate 2 pills with 1 pill daily 45 tablet 5 triamcinolone acetonide (KENALOG) 0.5 % cream Apply 1 application to affected area twice daily. For rash/itching. Apply sparingly. Avoid face/skin fold. 45 g 1 omeprazole (PRILOSEC) 20 mg capsule Take 1 capsule by mouth once daily. [address] (DEPAKOTE) 500 mg EC tablet Take 750 mg by mouth once daily. Daily in AM, extended release DULoxetine 60 mg CDRS Take 60 mg by mouth twice daily. 60mg morning 40 evening QUEtiapine (SEROQUEL) 100 mg tablet Take 100 mg by mouth daily at bedtime. ZOLOFT 100 MG TAB Take one (1) and one half (1/2) tablets two (2) times daily. 0 0 No current facility-administered medications for this visit. EXAM: There were no vitals taken for this visit. Last 3 Encounter BP Readings: Date: BP: 05/23/2023 120/77 03/26/2023 128/78 02/22/2023 120/62 Wt: 115.7 kg (255 lb) BMI: 45.17 kg/(m2) LABS: Lab Results Component Value Date HBA1C 6.6 0 (more content not included)... [facility] 05-27-2023 History of Present illness Narrative Primary Care Pharmacy Visit CC (Reason for Consult): (E11.9, Z79.4) Controlled type 2 diabetes mellitus without complication, with long-term current use of insulin (HCC) (primary encounter diagnosis) Goal(s): A1C < 7% Last Collaborating Provider Visit: 02/22/23 Irma Stewart is a 63 year old female presenting for follow up visit by telephone. Patient consents to pharmacy collaborative practice agreement. . HPI: Irma Stewart attends today's appointment by telephone. she is a [place] FEMALE who is A&O x3, pleasant, and cooperative. Today, she states that her chief concern is I couldn't handle the Trulicity. Did x2 doses of the Trulicity and she was in bed 5/7 days the first week and 4/7 days the second week. Could only eat soup. Previously on Victoza (with Dr. Latrell Stewart for 35 years) and also had severe nausea with the Victoza. Had to cancel multiple appointments. Blood glucose readings 79-100, no higher than 120 mg/dL. Doesn't eat sweets, doesn't drink SSBs. She was previously 314 lbs, and over the last 2 years has dropped to 251 lbs on her home scale yesterday. Tries to eat healthy. Eating a selectatarian/vegetarian diet based on whole foods. Trying to eat multiple salads a day. She attributes most of her weight gain to a series of deaths in the family and other catastrophic losses over 3-4 years in her past. She overate, stress ate, and comfort ate during this time, and it led to significant weight gain. (This was noted in Dr. Joseph's 04/11 note as well.) Past medical history reviewed. ALLERGIES Allergen Reactions Betadine [Povidone-* Unknown Glimepiride Intolerance Diarrhea Haldol [Haloperidol] Other: See Comments Headache/hallucinations [place] Other: See Comments Hallucinations Metformin Diarrhea Neurontin [Gabapent* Intolerance felt poorly Penicillins Unknown Okay to take amoxil Tylenol [Acetaminop* Intolerance Victoza [Liraglutid* GI Upset Current Outpatient Medications Medication Sig Dispense Refill dulaglutide (TRULICITY) 0.75 mg/0.5 mL pen injector Inject 0.75 mg subcutaneously one time a week. Inject dose once per week. Discard Pen After 4 Each 1 insulin glargine (LANTUS SOLOSTAR U-100 INSULIN) 100 unit/mL (3 mL) Inject 24 Units subcutaneously once daily. 15 mL 3 blood sugar diagnostic (BLOOD GLUCOSE TEST) test strip Test blood sugar(s) 3 times daily. Dx: Type 2 DM - Controlled E11.9 Insulin: Yes 50 Strip 2 Lancets lancets Test blood sugar(s) 3 times daily. Dx: Type 2 DM - Controlled E11.9 Insulin: Yes 100 Each 0 Insulin [place], Disposable, (BD ULTRAFINE III MINI PEN) 31 gauge x 3/16 1 Each twice daily. 100 Each 3 semaglutide (OZEMPIC) 0.25 mg or 0.5 mg (2 mg/3 mL) pen Inject 0.25mg weekly for 4 weeks and then increase dose to 0.5mg weekly. 3 mL 5 pregabalin (LYRICA) 100 mg capsule Take 1 capsule by mouth twice daily for 90 days. 60 capsule 1 metoprolol tartrate, short acting, (LOPRESSOR) 50 mg tablet Take 1 tablet by mouth twice daily. 180 tablet 3 potassium chloride (K-TAB) 10 mEq tablet TAKE 1 TABLET BY MOUTH DAILY WITH BREAKFAST. TAKE WITH LASIX 90 tablet 1 alcohol swabs Apply 1 application to affected area three times daily. 100 Each 5 oxybutynin ER (DITROPAN XL) 10 mg 24 hr tablet Take 1 tablet by mouth daily at bedtime. 30 tablet 5 rosuvastatin (CRESTOR) 10 mg tablet Take 1 tablet by mouth daily at bedtime. 90 tablet 3 ergocalciferol 50,000 unit capsule (VITAMIN D2, DRISDOL) Take 1 capsule by mouth two times a week. TO BE TAKEN ORALLY DIRECTED. Take 1 tablet by mouth twice weekly [id number], then decrease to 1 tablet weekly. 24 capsule 2 ferrous sulfate 325 mg (65 mg iron) tablet TAKE 1 TABLET BY MOUTH TWICE A DAY WITH MEALS 60 tablet 11 furosemide (LASIX) 20 mg tablet Take 1 tablet by mouth once daily. Alternate 2 pills with 1 pill daily 45 tablet 5 triamcinolone acetonide (KENALOG) 0.5 % cream Apply 1 application to affected area twice daily. For rash/itching. Apply sparingly. Avoid face/skin fold. 45 g 1 omeprazole (PRILOSEC) 20 mg capsule Take 1 capsule by mouth once daily. [address] (DEPAKOTE) 500 mg EC tablet Take 750 mg by mouth once daily. Daily in AM, extended release DULoxetine 60 mg CDRS Take 60 mg by mouth twice daily. 60mg morning 40 evening QUEtiapine (SEROQUEL) 100 mg tablet Take 100 mg by mouth daily at bedtime. ZOLOFT 100 MG TAB Take one (1) and one half (1/2) tablets two (2) times daily. 0 0 No current facility-administered medications for this visit. EXAM: There were no vitals taken for this visit. Last 3 Encounter BP Readings: Date: BP: 05/23/2023 120/77 03/26/2023 128/78 02/22/2023 120/62 Wt: 115.7 kg (255 lb) BMI: 45.17 kg/(m^2) LABS: Lab Results Component Value Date HBA1C 6.6 02/20/2023 HBA1C 7.1 04/10/2022 HBA1C 6.0 06/23/2021 HBA1C 6.4 08/31/2020 Glucose 112 02/20/2023 BUN 12 02/20/2023 Creatinine 0.82 02/20/2023 Sodium 139 02/20/2023 Potassium 4.2 02/20/2023 Chloride 100 02/20/2023 CO2 26 02/20/2023 Protein, Total 6.7 02/20/2023 Albumin 4.0 02/20/2023 Calcium 9.7 02/20/2023 Alkaline Phosphatase 70 02/20/2023 Bilirubin, Total 0.4 02/20/2023 AST 20 02/20/2023 ALT 10 02/20/2023 Lab Results Component Value Date CHOL 206 02/20/2023 CHOL 194 10/02/2021 LDL 106 02/20/2023 LDL 87 10/02/2021 HDL 55 02/20/2023 HDL 51 10/02/2021 TG 225 02/20/2023 TG 280 10/02/2021 Albumin/Creat Ratio (mg/g) Date Value 10/02/2021 Not calculated eGFR-All Other Races (.) Date Value 09/19/2021 >60 Estimated Glomerular Filtration Rate (mL/min/1.73m ) Date Value 02/20/2023 81 ASSESSMENT/PLAN: 1. Controlled type 2 diabetes mellitus without complication, with long-term current use of insulin (HCC) - ICD9: 250.00, V58.67, ICD10: E11.9, Z79.4 - Controlled - Continue current medications - Stop dulaglutide (Trulicity) - Increase Insulin glargine (Lantus/Basaglar/Toujeo) to previous dose - 30 units one time daily - Statin prescribed - rosuvastatin - Blood glucose monitoring on a once daily schedule - Counseled on healthy diet and regular exercise - Follow up in 3 months, sooner should any other issues arise. Ricardo Dinh RPh The majority of the pharmacy visit (> 50%) was spent counseling and/or coordinating care for the patient. interaction: telephonic time was 35 minutes. documented in this encounter [facility] 05-23-2023 History of Present illness Narrative Episode Visit Count: 1 Therapist That Will Accept/Oversee The Plan Of Care: Thom Enamorado PT Start of Care Date: 05/23/23 Onset Date: 11/23/22 (started 1 year ago and got noticeably worse 6 months ago.) Plan of Care Certification Date: 05/23/23 Next Certification Due Date: 06/20/23 Patient Identified by Name and Date of : Yes REHABILITATION AND SPORTS THERAPY PHYSICAL THERAPY EVALUATION PLAN OF CARE: Assessment: Irma Stewart presents with chief complaint of vertigo with positional changes that interferes with sleeping, bending, driving (quick head movements). She presents with impairments in ADL's, overall function, and symptom management. PROMIS (Patient-Reported Outcomes Measurement Information System) scores were reviewed and physical function domain and self efficacy domain identified as a rehabilitation concern. Prognosis for therapy is Good due to: current objective clinical presentation, within-session changes. She will benefit from skilled therapy services to meet the goals established for this plan of care as noted below. Goals for Episode of Care: created on 05/23/23 through 06/20/23 Independent in a Home Exercise Program. Drive with no aggravation of pain/symptoms. Sleep throughout the night without pain/symptoms. Positional testing negative for BBPV. Patient / family member to demonstrate knowledge of what to do if BPPV re-occurs. Patient Goals: eliminate vertigo Planned Interventions, Frequency, and Duration: Current Frequency: 1x/week Duration: 4 weeks Total Number of Visits Planned: 4 Planned Treatment Interventions: Canalith Repositioning Maneuvers (25436), Self-[place] [facility] management (19639), Patient/Family/Caregiver Education, Body Mechanics Training PLAN FOR NEXT VISIT: Repeat positional testing, update symptomatic change since last session and perform CRM prn. Patient demonstrates good understanding of plan of care and treatment. The above goals and plan of care were discussed and agreed upon by patient/family. SUBJECTIVE: Irma Stewart is a 63 year old female seen today for intermittent dizziness that is triggered by laying down and bending over. She reports that any quick head movements trigger her symptoms of dizziness. Rolling over in bed is a consistent trigger of her symptoms. She reports that this causes nausea. She reports that this has been present for 1 year but got much worse 6 months ago. She reports that once triggered, her symptoms last for less than a minute and lexx as long as she stays still. 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 Home Environment Patient Lives With: Significant Other Assistance Available: 24-Hour Intake Information: Prescription present Previous Treatment: (anti-vertigo medication) Concussion History of Concussion: No Vestibular Symptoms present for: months Symptom onset: gradual Dizziness: Yes Description: spinning (room), vertigo Rating of current symptoms: 10/10 Frequency: Intermittent Duration: seconds Symptoms worsened by: rolling right, rolling left, bending, turning head quickly Symptoms improved by: being still Imbalance: Yes Imbalance triggered by: Head movement, Visual stimulus/complex background, Position changes Fall Assessment: History of falls Frequency of falls: Less than monthly When was your most recent fall?: m-3 Did the fall occur inside or outside?: inside How did the fall occur?: got up quickly from a nightmare Injuries resulting from fall? : no Dizziness during fall?: yes How often do you lose your balance?: daily Nausea: yes Motion Sickness: None Headache: No Neck Symptoms: No Jaw Symptoms: No Ear Symptoms: Yes Description: (ringing) Rating of current symptoms: /10 Location: both ears equally Comments: severe ringing that causes depression Frequency: Constant Duration: all the time Hearing Changes: No recent changes Tinnitus: both ears equally Tinnitus Description: ringing Tinnitus Frequency: Constant Sleeping Position: Side lying left Sleep Affected by Symptoms: pain awakens, pain keeps from falling asleep, Dizziness keeps from falling asleep, Dizziness awakens History of Syncope: No History of Migraine: No Pain: Post Treatment Pain Post Treatment Pain Level: Better Post Treatment Symptoms: After CRM pt reported feeling better with her vision more clear as she was leaving. PROMIS Scales Higher is Better 05/23/2023 Phys Func - Score 32 (moderate dysfunction) Phys Func - Percentile 4 % Self-Eff Symptom - Score 36 (Low) Self-Eff Symptom - Percentile 8 % T-scores: mean of general population = 50. 5 points is clinically meaningfully difference Percentiles provide an indication of how the patient's score ranks in relation to the general population. Higher percentile rankings indicate better function/quality of life. 50th percentile is the average of the general population and indicates half of respondents had a worse score. OBJECTIVE MEASURES WITH LEVEL OF FUNCTION: Positional Testing Right [place]: Symptomatic, No nystagmus (very mild with no detectable nystagmus) Left [place]: Symptomatic, With delay, Less than 60 seconds (Pt became upset and anxious about the disturbing vertigo symptoms but was able to complete testing and treatment.) Cervical Spine ROM Cervical ROM : (adequate for positional testing) Education: Education Learning Preferences: Demonstration, Explanation, Performance, Printed Materials Barriers: Emotions Learning/educational needs: Procedure / Surgery, Plan of Care, Home exercise program, Posture, Body Mechanics Education Provided: Yes, see treatment interventions for education provided Education Provided To: Patient, Caregiver Education Mode/Type: Demonstration, Explanation/Discussion, Performance Response to Education/Teach Back: States/Identifies, Requires Review/Additional Education TREATMENT: PT Treatment Interventions: Canalith Repositioning Evaluation Canalith Repositionin: Following positional testing, CRM for B posterior canals completed with pt on int. She was educated extensively on the technique and what to expect. She was assisted through all positional changes and reassured many times. Skilled Intervention: Professional judgment was used to determine specific treatment interventions based on assessment of symptoms. Physically assisted patient through each step of repositioning. Verbal and tactile cues provided to patient to assist in moving between each position of maneuver in correct sequence. Billing * Evaluation Moderate Complexity: 1 Unit * Canalith Repositionin unit Total Treatment Time Minutes (timed/untimed): 50 Session Start Time : 1505 Session Stop Time : 1555 Thom Enamorado PT documented in this encounter [facility] 05-03-2023 Miscellaneous Notes Spoke with patient and the Ozempic was denied by insurance See telephone encounter 04/15/2023. Patient is starting on Trulicity. Left message to call & speak to nurse. Nidia Silverio LPN Left message to call & speak to nurse re: currenty dose. Nidia Silverio LPN Verify current dose--was 0.75 on March RX Patient has been identified by name and date of : No Patient phones for refill(s): Requested Prescriptions Pending Prescriptions Disp Refills semaglutide (OZEMPIC) 0.25 mg or 0.5 mg (2 mg/3 mL) pen [Pharmacy Med Name: OZEMPIC 0.25-0.5 MG/DOSE PEN] 5 Sig: INJECT 0.25MG WEEKLY FOR 4 WEEKS AND THEN INCREASE DOSE TO 0.5MG WEEKLY. Date of last office visit in primary care: 02/22/23 Last 2 Encounter Wt Readings: Date: Wt: 02/22/2023 115.7 kg (255 lb) 01/23/2023 116.1 kg (256 lb) Previous labs/tests for medication: Diabetes: Hemoglobin A1C (%) Date Value 02/20/2023 6.6 04/10/2022 7.1 06/23/2021 6.0 08/31/2020 6.4 Please advise. Thank you. Anupama Ceballos LPN documented in this encounter [facility] 04-22-2023 Miscellaneous Notes Unable to reach patient - mychart sent. TC to patient with no answer. Left VM to return call to office to receive update. FRANCISCO Broderick Please let patient know that the basaglar was changed to lantus due to insurance preference, and will be continued at the same units. Kelsi Alfred PA-C Called the pharmacy and formulary is lantus. Pt has never tried lantus that I can see. She has been on basaglar since 2019. Did not review this with pt. Change to lantus or try to PA the basaglar? Did we receive a PA for this? Thank you Lala Harrison APRN.CNP Patient has been identified by name and date of : No Patient phones for refill(s): Requested Prescriptions Pending Prescriptions Disp Refills BASAGLAR KWIKPEN U-100 INSULIN 100 unit/mL (3 mL) [Pharmacy Med Name: BASAGLAR 100 UNIT/ML LIZBETPEN] 3 Sig: INJECT 24 UNITS SUBCUTANEOUSLY ONCE DAILY. Date of last office visit in primary care: 02/22/23 Last 2 Encounter Wt Readings: Date: Wt: 02/22/2023 115.7 kg (255 lb) 01/23/2023 116.1 kg (256 lb) Previous labs/tests for medication: Diabetes: Hemoglobin A1C (%) Date Value 02/20/2023 6.6 04/10/2022 7.1 06/23/2021 6.0 08/31/2020 6.4 Please advise. Thank you. Anupama Ceballos LPN documented in this encounter [facility] 04-19-2023 History of Present illness Narrative POPULATION HEALTH NAVIGATION OUTREACH Action/FYI RP Outreach: LVM for Patient to call back and schedule ADEN Consult for Knee joint injury, initial encounter [S89.90XA]. [phone]. Any agent can assist. Patient Identified by Name and : YES, via [employer] Outreach Outcome/Action Unable to reach patient: Left message Did you use a PCP flex slot to schedule this appointment? No Reason for Outreach Care Gap or Scheduling/Wellness visits Payer: Payor: [facility] MEDICAID / Plan: [facility] MEDICAID / Product Type: Medicaid / Care Gap Reviewed:: ORQ Reminder: Reminder note to check Health Maintenance for items below Health Maintenance items due: DIABETIC FOOT EXAM Never done PAP TESTING Never done HPV TESTING Never done COLORECTAL CANCER SCREENING Never done MAMMOGRAM due on 05/20/2007 SHINGRIX VACCINE(1 of 2) Never done COVID-19 VACCINE(3 - Booster for Pfizer series) due on 09/22/2021 URINE ALBUMIN:CREATININE RATIO due on 10/02/2022 PNEUMOCOCCAL(2 - PCV) due on 10/02/2022 Navigation Signature: Ursula Vegas April 19, 2023 11:19 AM documented in this encounter [facility] 04-16-2023 History of Present illness Narrative POPULATION HEALTH NAVIGATION OUTREACH Action/FYI RP Outreach: LVM for Patient to call back and schedule ADEN Consult for Knee joint injury, initial encounter [S89.90XA]. [phone]. Any agent can assist. Patient Identified by Name and : YES, via [employer] Outreach Outcome/Action Unable to reach patient: Left message Did you use a PCP flex slot to schedule this appointment? No Reason for Outreach Care Gap or Scheduling/Wellness visits Payer: Payor: [facility] MEDICAID / Plan: [facility] MEDICAID / Product Type: Medicaid / Care Gap Reviewed:: ORQ Reminder: Reminder note to check Health Maintenance for items below Health Maintenance items due: DIABETIC FOOT EXAM Never done PAP TESTING Never done HPV TESTING Never done COLORECTAL CANCER SCREENING Never done MAMMOGRAM due on 05/20/2007 SHINGRIX VACCINE(1 of 2) Never done COVID-19 VACCINE(3 - Booster for Pfizer series) due on 09/22/2021 URINE ALBUMIN:CREATININE RATIO due on 10/02/2022 PNEUMOCOCCAL(2 - PCV) due on 10/02/2022 Navigation Signature: Ursula Vegas April 16, 2023 11:02 AM documented in this encounter [facility] 04-11-2023 Miscellaneous Notes Patient has been identified by name and date of : Yes Patient phones for refill(s): Requested Prescriptions Pending Prescriptions Disp Refills blood sugar diagnostic (BLOOD GLUCOSE TEST) test strip 50 Strip 2 Sig: Test blood sugar(s) 3 times daily. Dx: Type 2 DM - Controlled E11.9 Insulin: Yes Lancets lancets 100 Each 0 Sig: Test blood sugar(s) 3 times daily. Dx: Type 2 DM - Controlled E11.9 Insulin: Yes Date of last office visit in primary care: 02/22/2023 Please advise. Thank you. Iveth Nye LPN documented in this encounter [facility] 04-11-2023 History of Present illness Narrative Primary Care Pharmacy Visit CC (Reason for Consult): Diabetes Goal: A1c < 7% Last Collaborating Provider Visit: 02/22/23 Irma Stewart is a 63 year old female presenting for initial visit: This initial consult was conducted in person with the patient where the consult agreement was explained. The patient may decline or cancel the agreement at any time. After consideration, the patient consented to the pharmacy consult agreement and agreed to allow medications be collaboratively managed by a pharmacist. Interim Events: 02/22: saw PCP for tingling in legs, later referred to pain mngt for back pain and disc compression HPI: Patient no-showed to appt. PharmD called, she said she had called to cancel appt because she isn't feeling well. She is open to doing virtual/phone visit today. Has had flu recently but feeling better, now just has a sore throat and a little achy. States she stopped the metformin because she didn't think it was working. Says it doesn't agree with her (felt nauseated even with 1 pill), hasn't taken in months and said her A1c actually improved as a result. Taking Basaglar 30 units at night. Patient wants to verify if what she is currently doing with her DM is OKAY. Interested in weight loss. Had a lot of stress several years back, thinks a lot of her weight gain is from stress and cortisol. Current DM Medications: Metformin ER 500mg daily (not taking) Insulin glargine (Basaglar) 40 units QAM and 35 units QPM (taking 30 units QPM for the past 4-5 months ago) GLYCEMIC CONTROL: Glucometer present at visit: No SMBG s: reported FBGs 75-100 mg/dL Hypoglycemia: none How corrected: aware of sx of weakness, dizziness, shaky; would treat with OJ, sits on chair and relaxes, sometimes has couple pieces of candy; I eat until I start feeling better Preventative Medications: On BRADEN/ARB: No On Statin: Yes DIET/EXERCISE/SOCIAL Hx: Trying to cut back on sweets and starches MEDICATIONS: Pill bottles are not present. Adherence: denies missed doses. Pharmacy: e- [facility]/pharmacy #[id number] [place] [address] [phone] [facility]. - [phone] [facility] [phone] Rx coverage: Payor: [facility] MEDICAID / Plan: [facility] MEDICAID / Product Type: Medicaid ACTIVE PROBLEM LIST Esophageal Reflux Moderate Episode of Recurrent Major Depressive Disorder (Hcc) Panic Disorder Without Agoraphobia Somatization Disorder Irritable Bowel Syndrome Other and Unspecified Hyperlipidemia Schizophrenia ([facility]) Other Mixed Anxiety Disorders Controlled Type 2 Diabetes Mellitus Without Complication, With Long-Term Current Use of Insulin ([facility]) PAST MEDICAL HISTORY Diagnosis Date Abdominal pain, unspecified site 10/15/2006 Allergic rhinitis Allergic rhinitis, cause unspecified Bipolar affective disorder, depressed ([facility]) Candidiasis 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 Esophageal reflux Essential hypertension, benign KATHY (generalized anxiety disorder) GERD (gastroesophageal reflux disease) Headache(784.0) Hemorrhage of gastrointestinal tract, unspecified HTN (hypertension) Hypercholesteremia Hypothyroid IBS (irritable bowel syndrome) Internal hemorrhoids without mention of complication Intertrigo Irritable bowel syndrome Lumbar radiculopathy Migraine without aura Migraine, unspecified, without mention of intractable migraine without mention of status migrainosus Morbid obesity ([facility]) Myalgia and myositis, unspecified Obesity, unspecified Onychomycosis JAYLYN (obstructive sleep apnea) Osteoarthrosis Other acute reactions to stress Other anxiety states Panic disorder Panic disorder without agoraphobia Pedal edema PMH - PAST MEDICAL HISTORY OF joint pain Pure hypercholesterolemia Schizophrenia ([facility]) Sciatica, right side Sleep related bruxism Temporomandibular joint disorders, unspecified TMJ syndrome Unspecified menopausal and postmenopausal disorder Uterine prolapse without mention of vaginal wall prolapse Venous insufficiency of both lower extremities Vitamin D deficiency Past medical history reviewed. ALLERGIES Allergen Reactions Betadine [Povidone-* Unknown Glimepiride Intolerance Diarrhea Haldol [Haloperidol] Other: See Comments Headache/hallucinations [place] Other: See Comments Hallucinations Metformin Diarrhea Neurontin [Gabapent* Intolerance felt poorly Penicillins Unknown Okay to take amoxil Tylenol [Acetaminop* Intolerance Victoza [Liraglutid* GI Upset Medication List Medication Directions Comments Action/Plan alcohol swabs Apply 1 application to affected area three times daily. blood sugar diagnostic (BLOOD GLUCOSE TEST) test strip Test blood sugar(s) 3 times daily. Dx: Type 2 DM - Controlled E11.9 Insulin: Yes divalproex DR (DEPAKOTE) 500 mg EC tablet Take 750 mg by mouth once daily. Daily in AM, extended release DULoxetine 60 mg CDRS Take 60 mg by mouth twice daily. 60mg morning 40 evening ergocalciferol 50,000 unit capsule (VITAMIN D2, DRISDOL) Take 1 capsule by mouth two times a week. TO BE TAKEN ORALLY DIRECTED. Take 1 tablet by mouth twice weekly [id number], then decrease to 1 tablet weekly. ferrous sulfate 325 mg (65 mg iron) tablet TAKE 1 TABLET BY MOUTH TWICE A DAY WITH MEALS furosemide (LASIX) 20 mg tablet Take 1 tablet by mouth once daily. Alternate 2 pills with 1 pill daily insulin glargine (BASAGLAR KWIKPEN U-100 INSULIN) 100 unit/mL (3 mL) Take 40 units in the morning and 35 units at bedtime Patient taking differently: Take 40 units in the morning and 35 units at bedtime Not taking everyday, blood glucose has been controlled without it Insulin [place], Disposable, (BD ULTRAFINE III MINI PEN) 31 gauge x 3/16 1 Each twice daily. Lancets lancets Test blood sugar(s) 3 times daily. Dx: Type 2 DM - Controlled E11.9 Insulin: Yes metFORMIN ER (GLUCOPHAGE XR) 500 mg 24 hr tablet Take 1 tablet by mouth daily with breakfast. metoprolol tartrate, short acting, (LOPRESSOR) 50 mg tablet Take 1 tablet by mouth twice daily. omeprazole (PRILOSEC) 20 mg capsule Take 1 capsule by mouth once daily. oxybutynin ER (DITROPAN XL) 10 mg 24 hr tablet Take 1 tablet by mouth daily at bedtime. potassium chloride (K-TAB) 10 mEq tablet TAKE 1 TABLET BY MOUTH DAILY WITH BREAKFAST. TAKE WITH LASIX pregabalin (LYRICA) 100 mg capsule Take 1 capsule by mouth twice daily for 90 days. QUEtiapine (SEROQUEL) 100 mg tablet Take 100 mg by mouth daily at bedtime. rosuvastatin (CRESTOR) 10 mg tablet Take 1 tablet by mouth daily at bedtime. triamcinolone acetonide (KENALOG) 0.5 % cream Apply 1 application to affected area twice daily. For rash/itching. Apply sparingly. Avoid face/skin fold. ZOLOFT 100 MG TAB Take one (1) and one half (1/2) tablets two (2) times daily. Exam: Last 3 Encounter BP Readings: Date: BP: 03/26/2023 128/78 02/22/2023 120/62 01/23/2023 118/64 Wt: 115.7 kg (255 lb) BMI: 45.17 kg/(m^2) LABS: Reviewed Lab Results Component Value Date HBA1C 6.6 02/20/2023 HBA1C 7.1 04/10/2022 HBA1C 6.0 06/23/2021 HBA1C 6.4 08/31/2020 CMP: Glucose 112 02/20/2023 BUN 12 02/20/2023 Creatinine 0.82 02/20/2023 Sodium 139 02/20/2023 Potassium 4.2 02/20/2023 Chloride 100 02/20/2023 CO2 26 02/20/2023 Protein, Total 6.7 02/20/2023 Albumin 4.0 02/20/2023 Calcium 9.7 02/20/2023 Alkaline Phosphatase 70 02/20/2023 Bilirubin, Total 0.4 02/20/2023 AST 20 02/20/2023 ALT 10 02/20/2023 Estimated Creatinine Clearance: 87.3 mL/min (based on SCr of 0.82 mg/dL). Lab Results Component Value Date CHOL 206 02/20/2023 CHOL 194 10/02/2021 LDL 106 02/20/2023 LDL 87 10/02/2021 HDL 55 02/20/2023 HDL 51 10/02/2021 TG 225 02/20/2023 TG 280 10/02/2021 The 10-year ASCVD risk score (Nancy JARAMILLO, et al., 2019) is: 7.9% Values used to calculate the score: Age: 63 years Sex: Female Is Non- : No Diabetic: Yes Tobacco smoker: No Systolic Blood Pressure: 128 mmHg Is BP treated: No HDL Cholesterol: 55 mg/dL Total Cholesterol: 206 mg/dL Albumin/Creat Ratio (mg/g) Date Value 10/02/2021 Not calculated PHARMACOTHERAPY ASSESSMENT/PLAN: 1. Controlled type 2 diabetes mellitus without complication, with long-term current use of insulin ([facility]) - ICD9: 250.00, V58.67, ICD10: E11.9, Z79.4 (primary diagnosis) A1c goal < 7%; controlled (last A1c 6.6%); SMBGs at goal; no issues with lows; patient interested in weight loss, discussed SGLT2 vs GLP1 and patient prefers to try GLP1 --> will start Ozempic today INITIATE Ozempic 0.25mg weekly x 4 weeks and then increase to 0.5mg weekly thereafter Patient denies personal hx of pancreatitis or gall bladder issues, or personal/family hx of MEN2/MTC; we discussed the reported risk of medullary thyroid cancer/c-cell hyperplasia noted in rats who received clinically relevant doses of GLP1 agonist; risk of medullary thyroid cancer/c-cell hyperplasia has yet to be demonstrated in humans, especially in the current pharmacologic doses approved for use; potential for weight loss with improved glycemic control warrant trial of medication; patient made informed decision to try the medication; medication has been fully explained to patient, including risk of C-cell hyperplasia in the thyroid gland occurring in mice/rats, risk of pancreatitis or gall bladder issues, risk of hypoglycemia, side effects including nausea/vomiting; reviewed dietary adjustments to prevent ADEs: smaller more frequent meals, not eating past full, avoiding foods high in fat - patient expressed understanding Advised to contact office if issues with cost, access, or ADRs DECREASE Basaglar to 24 units nightly --> let PharmD know if starting to have issues with low or high BG Reviewed proper identification/mngt of low BG 2. Medication management - ICD9: V58.69, ICD10: Z79.899 No time to review med list today --> advised pt to review med list on MyChart to make sure everything is accurate. If any discrepancies, advised to send me a MyC msg to med list can be updated. Follow-up Patient is scheduled to see PCP team on 05/24. Patient to have f/up with PharmD team on 05/20. Patient verbalized understanding of instructions. Fior Joseph PharmD, [facility] Primary Care Clinical Pharmacist The majority of the pharmacy visit (> 50%) was spent counseling and/or coordinating care for the patient. interaction: telephonic time was 48 minutes. documented in this encounter [facility] 03-26-2023 Instructions Gavi Norwood APRN.[employer]ER - 03/26/2023 7:35 PM EDT ASSESSMENT/PLAN: 1. Knee joint injury, initial encounter - ICD9: 959.7, ICD10: S89.90XA - XR KNEE GENERAL 4V AP BOTH/PA BOTH/LAT/MERC BILATERAL Radiology RESULT: Bilateral knees: 5 images including weightbearing frontal as labeled. Imaging centered above the joint space line on the 2 frontal images. No identified acute osseous abnormality. Trace joint fluid each knee. Right knee total arthroplasty with patellar resurfacing. No evident hardware loosening or failure. Left knee tricompartmental osteophytosis including severe medial, moderate to severe patellofemoral, moderate lateral. Joint space narrowing mild to moderate medial compartment but otherwise maintained. IMPRESSION: 1. No acute osseous abnormality right knee and left knee. 2. Right knee frontal arthroplasty. 3. Tricompartmental left knee osteoarthritis 4. Suboptimal joint space centering frontal weightbearing imaging [employer] Coach: JADON Transcribe Date/Time: Mar 26 2023 7:15P Dictated by : LATISHA ISAAC MD - RICE therapy as directed. - Follow-up with orthopedics as directed. - Discussed red flags and need for immediate medical evaluation if any occur. - Discussed supportive care treatment with fluids, rest and analgesia. - Discussed expected course of illness Gavi Norwood APRN.[employer] R.I.C.E. The general care of your injury includes the following: Resting, Icing, Compressing and Elevating the injured area. Remember this as RICE. REST: Limit the use of the injured body part. ICE: By applying ice to the affected area, swelling and pain can be reduced. Place some ice cubes in a re-sealable (Ziploc) bag and add some water. Put a thin washcloth between the bag and your skin. Apply the ice bag to the area for at least 20 minutes. Do this at least 4 times per day. Using the ice for longer times and more frequently is OK. NEVER APPLY ICE DIRECTLY TO THE SKIN. COMPRESS: Compression means to apply pressure around the injured area such as with a splint, cast or an braden bandage. Compression decreases swelling and improves comfort. Compression should be tight enough to relieve swelling but not so tight as to decrease circulation. Increasing pain, numbness, tingling, or change in skin color, are all signs of decreased circulation. ELEVATE: Elevate the injured part. For example, elevate your foot by placing it on a chair while sitting, or propping it up on pillows when lying down. documented in this encounter [facility] 03-26-2023 History of Present illness Narrative Subjective HPI Irma Stewart is a 63 year old female who presents with bilateral knee pain. She fell out of bed while having a bad dream a week ago. She states her right leg was bent behind her and her left leg was extended straight out in front of her. Since then she has had pain in both knees. Pain is left knee is posterior and she rates it 10/10. She has used ice, and heat, and icy heat. Review of Systems Constitutional: Negative for chills and fever. Musculoskeletal: Positive for falls and joint pain. Skin: Negative for itching and rash. 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 Esophageal reflux Essential hypertension, benign KATHY (generalized anxiety disorder) GERD (gastroesophageal reflux disease) Headache(784.0) Hemorrhage of gastrointestinal tract, unspecified HTN (hypertension) Hypercholesteremia Hypothyroid IBS (irritable bowel syndrome) Internal hemorrhoids without mention of complication Intertrigo Irritable bowel syndrome Lumbar radiculopathy Migraine without aura Migraine, unspecified, without mention of intractable migraine without mention of status migrainosus Morbid obesity (HCC) Myalgia and myositis, unspecified Obesity, unspecified Onychomycosis JAYLYN (obstructive sleep apnea) Osteoarthrosis Other acute reactions to stress Other anxiety states Panic disorder Panic disorder without agoraphobia Pedal edema PMH - PAST MEDICAL HISTORY OF joint pain Pure hypercholesterolemia Schizophrenia (HCC) Sciatica, right side Sleep related bruxism Temporomandibular joint disorders, unspecified TMJ syndrome Unspecified menopausal and postmenopausal disorder Uterine prolapse without mention of vaginal wall prolapse Venous insufficiency of both lower extremities Vitamin D deficiency PAST SURGICAL HISTORY Procedure Laterality Date ARTHRP KNE CONDYLE&PLATU MEDIAL&LAT COMPARTMENTS Right 04/19/2010 COLONOSCOPY W/BIOPSY SINGLE/MULTIPLE 04/24/07 EGD 1994 LAPS ABD PRTM&OMENTUM DX W/WO SPEC BR/WA SPX Laparoscopy OTHER SURGICAL HISTORY (PLEASE SPECIFY) HX Spine injections, sees OTHER SURGICAL HISTORY (PLEASE SPECIFY) HX radiofrequency implant for chronic back pain. TONSILLECTOMY PRIMARY/SECONDARY <AGE 13 Tonsillectomy in her 20s TX INGROWN TOENAIL Left VAGINAL HYSTERECTOMY UTERUS 250 GM/< 08/17/1997 Hysterectomy, vaginal ALLERGIES Betadine [Povidone-Iodine], Glimepiride, Haldol [Haloperidol], [place], Metformin, Neurontin [Gabapentin], Penicillins, Tylenol [Acetaminophen], and Victoza [Liraglutide] MEDICATIONS potassium chloride (K-TAB) 10 mEq tablet TAKE 1 TABLET BY MOUTH DAILY WITH BREAKFAST. TAKE WITH LASIX metFORMIN ER (GLUCOPHAGE XR) 500 mg 24 hr tablet Take 1 tablet by mouth daily with breakfast. pregabalin (LYRICA) 100 mg capsule Take 1 capsule by mouth twice daily for 90 days. alcohol swabs Apply 1 application to affected area three times daily. blood sugar diagnostic (BLOOD GLUCOSE TEST) test strip Test blood sugar(s) 3 times daily. Dx: Type 2 DM - Controlled E11.9 Insulin: Yes Lancets lancets Test blood sugar(s) 3 times daily. Dx: Type 2 DM - Controlled E11.9 Insulin: Yes metoprolol tartrate, short acting, (LOPRESSOR) 50 mg tablet Take 1 tablet by mouth twice daily. oxybutynin ER (DITROPAN XL) 10 mg 24 hr tablet Take 1 tablet by mouth daily at bedtime. rosuvastatin (CRESTOR) 10 mg tablet Take 1 tablet by mouth daily at bedtime. ergocalciferol 50,000 unit capsule (VITAMIN D2, DRISDOL) Take 1 capsule by mouth two times a week. TO BE TAKEN ORALLY DIRECTED. Take 1 tablet by mouth twice weekly [id number], then decrease to 1 tablet weekly. ferrous sulfate 325 mg (65 mg iron) tablet TAKE 1 TABLET BY MOUTH TWICE A DAY WITH MEALS Insulin [place], Disposable, (BD ULTRAFINE III MINI PEN) 31 gauge x 3/16 1 Each twice daily. furosemide (LASIX) 20 mg tablet Take 1 tablet by mouth once daily. Alternate 2 pills with 1 pill daily triamcinolone acetonide (KENALOG) 0.5 % cream Apply 1 application to affected area twice daily. For rash/itching. Apply sparingly. Avoid face/skin fold. insulin glargine (BASAGLAR KWIKPEN U-100 INSULIN) 100 unit/mL (3 mL) Take 40 units in the morning and 35 units at bedtime (Patient taking differently: Take 40 units in the morning and 35 units at bedtime Not taking everyday, blood glucose has been controlled without it) omeprazole (PRILOSEC) 20 mg capsule Take 1 capsule by mouth once daily. divalproex DR (DEPAKOTE) 500 mg EC tablet Take 750 mg by mouth once daily. Daily in AM, extended release DULoxetine 60 mg CDRS Take 60 mg by mouth twice daily. 60mg morning 40 evening QUEtiapine (SEROQUEL) 100 mg tablet Take 100 mg by mouth daily at bedtime. ZOLOFT 100 MG TAB Take one (1) and one half (1/2) tablets two (2) times daily. FAMILY HISTORY Problem Relation Age of Onset Diabetes Paternal Grandmother Cancer Mother lymphoma Heart Mother mitral valve prolapse Heart Father x4 bypass Hypertension Father No Known Problems Brother Colon Cancer Other maternal aunt other (lupus) Other other (lung cancer) Other Social History Tobacco Use Smoking status: Never Smokeless tobacco: Never Vaping Use Vaping Use: Never used Substance Use Topics Alcohol use: No Drug use: Never Objective Physical Exam Vitals and nursing note reviewed. Constitutional: Appearance: Normal appearance. Musculoskeletal: General: Swelling, tenderness and signs of injury present. No deformity. Right knee: No swelling, deformity, effusion, erythema or ecchymosis. Decreased range of motion. Left knee: Swelling present. No deformity, erythema, ecchymosis or crepitus. Decreased range of motion. Tenderness present. Normal pulse. Comments: Knee exam limited due to body habitus. Skin: General: Skin is warm and dry. Capillary Refill: Capillary refill takes less than 2 seconds. Findings: No bruising, erythema or rash. Neurological: Mental Status: She is alert. ASSESSMENT/PLAN: 1. Knee joint injury, initial encounter - ICD9: 959.7, ICD10: S89.90XA - XR KNEE GENERAL 4V AP BOTH/PA BOTH/LAT/MERC BILATERAL Radiology RESULT: Bilateral knees: 5 images including weightbearing frontal as labeled. Imaging centered above the joint space line on the 2 frontal images. No identified acute osseous abnormality. Trace joint fluid each knee. Right knee total arthroplasty with patellar resurfacing. No evident hardware loosening or failure. Left knee tricompartmental osteophytosis including severe medial, moderate to severe patellofemoral, moderate lateral. Joint space narrowing mild to moderate medial compartment but otherwise maintained. IMPRESSION: 1. No acute osseous abnormality right knee and left knee. 2. Right knee frontal arthroplasty. 3. Tricompartmental left knee osteoarthritis 4. Suboptimal joint space centering frontal weightbearing imaging [employer] Coach: JADON Transcribe Date/Time: Mar 26 2023 7:15P Dictated by : LATISHA ISAAC MD - RICE therapy as directed. - Follow-up with orthopedics as directed. - Discussed red flags and need for immediate medical evaluation if any occur. - Discussed supportive care treatment with fluids, rest and analgesia. - Discussed expected course of illness Gavi Norwood APRN.MICHAEL documented in this encounter [facility] 03-26-2023 History of Present illness Narrative Radiology Service Progress Note PATIENT NAME: Irma Stewart DATE OF SERVICE: March 26, 2023 TIME: 6:31 PM PATIENT IDENTITY VERIFICATION COMPLETED USING TWO (2) IDENTIFIERS: Name and Date of confirmed by patient verbally. FALL SCREENING: Has the patient had 2 falls in the last year or 1 fall with injury or currently using an Ambulatory Assistive Device (Walker, Cane, Wheelchair, Crutches, etc.)? Yes, Patient High Risk for Falls What interventions were put in place to prevent falls during this visit? Instructed Patient to Call for Help if Needed, Offered Assistance with Transfers/Clothing, and Increased Observations by Caregivers PATIENT GENDER DATA: Female. status: : No status: NO. PATIENT RELEVANT IMPLANT DATA REVIEWED: Yes RADIOLOGY DEPARTMENT: General X-ray: Exam(s) Completed: Lower Extremity X-Ray(s): Knee, AP / Lat / Tunne / Merchant Bilateral and Wt. Bearing PERIPHERAL IV DATA: Not applicable SIGNED BY: RT Micheal(R) March 26, 2023 6:31 PM documented in this encounter [facility] 02-27-2023 Miscellaneous Notes Consult has been ordered as requested Regards, Monik Hackett MD Patient notified of results and provider's instructions. Patient verbalizes understanding. Please place pain management referral. Patient sees Dr. Beatty for pain management. Rhona Lai RN Please let patient know that the disc space between L2 and L3 is decreased it may be causing the pain It may represent some degeneration which is common for people and interestingly she actually does have many significant changes in the back would recommend her to go back to pain management Regards, Monik Hackett MD Patient calls and states that she saw that her back xray results came back. Patient asking for provider to advise on results and to let patient know what the next step is. Patient reports that her legs are bothering her and that she have sharp pain in her back. Please review and advise, Rhona Lai RN documented in this encounter [facility] 02-22-2023 History of Present illness Narrative Radiology Service Progress Note PATIENT NAME: Irma Stewart DATE OF SERVICE: February 22, 2023 TIME: 3:20 PM PATIENT IDENTITY VERIFICATION COMPLETED USING TWO (2) IDENTIFIERS: Name and Date of confirmed by patient verbally. FALL SCREENING: Has the patient had 2 falls in the last year or 1 fall with injury or currently using an Ambulatory Assistive Device (Walker, Cane, Wheelchair, Crutches, etc.)? Yes, Patient High Risk for Falls What interventions were put in place to prevent falls during this visit? Instructed Patient to Call for Help if Needed, Offered Assistance with Transfers/Clothing, and Increased Observations by Caregivers PATIENT GENDER DATA: Female. status: : No status: NO. PATIENT RELEVANT IMPLANT DATA REVIEWED: Yes RADIOLOGY DEPARTMENT: General X-ray: Exam(s) Completed: Spine X-Ray(s): Lumbar AP / LAT / L5-S1 PERIPHERAL IV DATA: Not applicable SIGNED BY: RT Micheal(R) February 22, 2023 3:20 PM documented in this encounter [facility] 01-31-2023 Miscellaneous Notes Patient was referred to pharmacy by PCP on 01/23 with recommended follow up of 2 weeks. Patient currently scheduled for new office visit with Fior Joseph PharmD on 03/07/22. Called and Left voicemail to offer sooner phone or virtual visit with several availabilities within the next 7 days. If patient returns call and prefers to accept a sooner phone or virtual visit, please schedule with Jess. Jess Perry PharmD, [facility] Clinical Pharmacist documented in this encounter [facility] 01-30-2023 Miscellaneous Notes Patient has been identified by name and date of : Yes, Provider Date Time Patient phones for refill(s): Requested Prescriptions Pending Prescriptions Disp Refills metFORMIN ER (GLUCOPHAGE XR) 500 mg 24 hr tablet 30 tablet 11 Sig: Take 1 tablet by mouth daily with breakfast. Date of last office visit with pcp: 01/23/23 Date of last office visit in primary care: Last 2 Encounter Wt Readings: Date: Wt: 01/23/2023 116.1 kg (256 lb) 06/27/2022 119.7 kg (264 lb) Previous labs/tests for medication: Diabetes: Hemoglobin A1C (%) Date Value 04/10/2022 7.1 06/23/2021 6.0 08/31/2020 6.4 Please advise. Thank you. Inocencia Lowery RN documented in this encounter [facility] 03-29-2023 History of Present illness Narrative US Reason for Visit Patient presents with: Follow Up: insulin and metformin and refill Irma Stewart is a 62 year old female who presents here today for Above Complaints.. Health Maintenance DIABETIC FOOT EXAM PAP TESTING HPV TESTING COLORECTAL CANCER SCREENING MAMMOGRAM SHINGRIX VACCINE(1 of 2) COVID-19 VACCINE(3 - Booster for Pfizer series) INFLUENZA(1) URINE ALBUMIN:CREATININE RATIO PNEUMOCOCCAL(2 - PCV) HBA1C HPI Since she last seen me, she had seen Dr Turner, who noted that her nails should be good now after 3 months of the lamisil Diabetes Mellitus: she checks her sugars regularly, takes insulin lantus 20 units, fasting sugars usually run less than 135 units...or below, it has been really good at 130 or 125 , she has been taking lantus as sliding scale. She tries her best to eat right. Trying to cook better,and eating better. She has back pain from sciatica, it does hurt her a lot not on medication currently , took some back injections by Dr Beatty. Patient is not sure if there is something else they could do. Lost her mother, ex sis topher, and sister and step mom.the last was february 2022. Patient notes her things have been off recently. Patient was doing very good when her hba1c was 6.1 Her tgs are on the higher side. Cholesterol is fairly well controlled, she is on the crestor and needs to have that continued and renewed. HTN: BP controlled today. Checks BP at home. Compliant with medications. Denies any chest pain, palpitations, SOB, swelling in the feet. Careful with diet to avoid salt, trying to eat more fruits and vegetables, exercises regularly On lyrical for fibro and the medication helps her. She is on crestor. She is going to [facility] center [facility] , duloxetine , zoloft and depakote. She had been to psych guidry 2 times at least in the past Patient notes painful subcutaneous nodules in the UE, b/l cheat and abd. She cries when they are touched and says they are all over her body and they really hurt her No problem-specific Assessment & Plan notes found for this encounter. 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 Esophageal reflux Essential hypertension, benign KATHY (generalized anxiety disorder) GERD (gastroesophageal reflux disease) Headache(784.0) Hemorrhage of gastrointestinal tract, unspecified HTN (hypertension) Hypercholesteremia Hypothyroid IBS (irritable bowel syndrome) Internal hemorrhoids without mention of complication Intertrigo Irritable bowel syndrome Lumbar radiculopathy Migraine without aura Migraine, unspecified, without mention of intractable migraine without mention of status migrainosus Morbid obesity (HCC) Myalgia and myositis, unspecified Obesity, unspecified Onychomycosis JAYLYN (obstructive sleep apnea) Osteoarthrosis Other acute reactions to stress Other anxiety states Panic disorder Panic disorder without agoraphobia Pedal edema PMH - PAST MEDICAL HISTORY OF joint pain Pure hypercholesterolemia Schizophrenia (HCC) Sciatica, right side Sleep related bruxism Temporomandibular joint disorders, unspecified TMJ syndrome Unspecified menopausal and postmenopausal disorder Uterine prolapse without mention of vaginal wall prolapse Venous insufficiency of both lower extremities Vitamin D deficiency PAST SURGICAL HISTORY Procedure Laterality Date ARTHRP KNE CONDYLE&PLATU MEDIAL&LAT COMPARTMENTS Right 04/19/2010 COLONOSCOPY W/BIOPSY SINGLE/MULTIPLE 04/24/07 EGD 1994 LAPS ABD PRTM&OMENTUM DX W/WO SPEC BR/WA SPX Laparoscopy OTHER SURGICAL HISTORY (PLEASE SPECIFY) HX Spine injections, sees OTHER SURGICAL HISTORY (PLEASE SPECIFY) HX radiofrequency implant for chronic back pain. TONSILLECTOMY PRIMARY/SECONDARY <AGE 13 Tonsillectomy in her 20s TX INGROWN TOENAIL Left VAGINAL HYSTERECTOMY UTERUS 250 GM/< 08/17/1997 Hysterectomy, vaginal FAMILY HISTORY Problem Relation Age of Onset Diabetes Paternal Grandmother Cancer Mother lymphoma Heart Mother mitral valve prolapse Heart Father x4 bypass Hypertension Father No Known Problems Brother Colon Cancer Other maternal aunt other (lupus) Other other (lung cancer) Other Social History Tobacco Use Smoking status: Never Smokeless tobacco: Never Vaping Use Vaping Use: Never used Substance Use Topics Alcohol use: No Drug use: Never Past medical history, appointments, medications, allergies reviewed. Pertinent Lab/Diagnostic Studies are reviewed and discussed today Current Outpatient Medications: alcohol swabs blood sugar diagnostic (BLOOD GLUCOSE TEST) test strip Lancets lancets metoprolol tartrate, short acting, (LOPRESSOR) 50 mg tablet pregabalin (LYRICA) 100 mg capsule oxybutynin ER (DITROPAN XL) 10 mg 24 hr tablet rosuvastatin (CRESTOR) 10 mg tablet ergocalciferol 50,000 unit capsule (VITAMIN D2, DRISDOL) potassium chloride (K-TAB) 10 mEq tablet ferrous sulfate 325 mg (65 mg iron) tablet Insulin [place], Disposable, (BD ULTRAFINE III MINI PEN) 31 gauge x 3/16 metFORMIN ER (GLUCOPHAGE XR) 500 mg 24 hr tablet metFORMIN ER (GLUCOPHAGE XR) 500 mg 24 hr tablet furosemide (LASIX) 20 mg tablet triamcinolone acetonide (KENALOG) 0.5 % cream insulin glargine (BASAGLAR KWIKPEN U-100 INSULIN) 100 unit/mL (3 mL) omeprazole (PRILOSEC) [address] (DEPAKOTE) 500 mg EC tablet DULoxetine 60 mg CDRS QUEtiapine (SEROQUEL) 100 mg tablet ZOLOFT 100 MG TAB Review of Systems CONSTITUTIONAL: No fevers, chills night sweats, unintended weight loss CARDIOVASCULAR: No chest pain, dyspnea, palpitations, orthopnea, PND, ankle edema. PULM: No dyspnea, unexplained cough. GI: No dysphagia/odynophagia, problematic reflux, constipation, diarrhea, changes in stool habits, hematochezia, melena. : No new urinary complaints, including dysuria, gross hematuria or pyuria. NEURO: No new balance problems, peripheral weakness/paresthesias or numbness of concern. Physical Exam BP 118/64 (BP Site: Right Arm, BP Position: Sitting, BP Cuff Size: Large Adult) Pulse 81 Temp (!) 35.6 C (96.1 F) Resp 16 Ht 160 cm (5' 3) Wt 116.1 kg (256 lb) SpO2 94% BMI 45.35 kg/m General appearance: Well appearing, alert, in no acute distress, well nourished. Skin: subcutaneous nodules in the forearm of the upper extremities and abdomen Head: Normocephalic, no masses, lesions, tenderness or abnormalities Eyes: Anicteric sclera. Pupils are equally round and reactive to light. Extraocular movements are intact. Lungs: Lungs clear to auscultation. No wheezing, rhonchi, rales Heart: RRR without murmur, gallop, or rubs. Extremities: No deformities, edema, skin discoloration, clubbing or cyanosis. Good capillary refill. ASSESSMENT/PLAN: 1. Schizophrenia, unspecified type (HCC) - ICD9: 295.90, ICD10: F20.9 (primary diagnosis) She is stable on current dose of her medications 2. Fibromyalgia - ICD9: 729.1, ICD10: M79.7 Cont pregabalin 3. Moderate episode of recurrent major depressive disorder (HCC) - ICD9: 296.32, ICD10: F33.1 See no 1 4. Controlled type 2 diabetes mellitus without complication, with long-term current use of insulin (HCC) - ICD9: 250.00, V58.67, ICD10: E11.9, Z79.4 Needs titration of her medication - CONSULT TO PHARMACY 5. Hypertriglyceridemia - ICD9: 272.1, ICD10: E78.1 Recheck labs 6. Subcutaneous nodules - ICD9: 782.2, ICD10: R22.9 - US EXTREMITY MASS/FLUID COLLECTION LEFT Monik Hackett MD documented in this encounter [facility] 01-02-2023 Miscellaneous Notes Patient has been identified by name and date of : No Patient phones for refill(s): Requested Prescriptions Pending Prescriptions Disp Refills alcohol swabs 100 Each 5 Sig: Apply 1 application to affected area three times daily. Date of last office visit in primary care: 06/27/22 Last 2 Encounter Wt Readings: Date: Wt: 06/27/2022 119.7 kg (264 lb) 05/30/2022 122.9 kg (271 lb) Previous labs/tests for medication: Diabetes: Hemoglobin A1C (%) Date Value 04/10/2022 7.1 06/23/2021 6.0 08/31/2020 6.4 Please advise. Thank you. Anupama Ceballos LPN documented in this encounter [facility] 01-02-2023 Miscellaneous Notes Patient has been identified by name and date of : No Patient phones for refill(s): Requested Prescriptions Pending Prescriptions Disp Refills Lancets lancets 100 Each 11 Sig: Test blood sugar(s) 3 times daily. Dx: Type 2 DM - Controlled E11.9 Insulin: Yes metoprolol tartrate, short acting, (LOPRESSOR) 50 mg tablet 180 tablet 1 Sig: Take 1 tablet by mouth twice daily. Date of last office visit in primary care: 06/27/22 Last 2 Encounter Wt Readings: Date: Wt: 06/27/2022 119.7 kg (264 lb) 05/30/2022 122.9 kg (271 lb) Previous labs/tests for medication: Diabetes: Hemoglobin A1C (%) Date Value 04/10/2022 7.1 06/23/2021 6.0 08/31/2020 6.4 Blood Pressure: BUN (mg/dL) Date Value 04/10/2022 8 09/19/2021 13 Sodium (mmol/L) Date Value 04/10/2022 138 09/19/2021 140 Last 1 Encounter BP Readings: Date: BP: 06/27/2022 124/74 Please advise. Thank you. Anupama Ceballos LPN documented in this encounter [facility] 12-24-2022 Miscellaneous Notes Standing ordered placed Regards, Monik Hackett MD documented in this encounter [facility] 11-29-2022 Miscellaneous Notes Please let patient know she is dur for a follow up appointment. Thank you Lala Harrison APRN.MICHAEL PDMP website checked and validated. All prescriptions have been APPROPRIATELY filled. No suspicious activity was identified. 11/29/2022 by Lala Harrison APRN.MICHAEL Patient has been identified by name and date of : No Patient phones for refill(s): Requested Prescriptions Pending Prescriptions Disp Refills pregabalin (LYRICA) 100 mg capsule 60 capsule 2 Sig: Take 1 capsule by mouth twice daily for 90 days. Date of last office visit in primary care: 06/27/22 Last 2 Encounter Wt Readings: Date: Wt: 06/27/2022 119.7 kg (264 lb) 05/30/2022 122.9 kg (271 lb) Previous labs/tests for medication: Not applicable Please advise. Thank you. Anupama Ceballos LPN documented in this encounter [facility] 11-12-2022 Miscellaneous Notes Patient has been identified by name and date of : No Patient phones for refill(s): Requested Prescriptions Pending Prescriptions Disp Refills oxybutynin ER (DITROPAN XL) 10 mg 24 hr tablet 30 tablet 5 Sig: Take 1 tablet by mouth daily at bedtime. Date of last office visit in primary care: 06/27/2022 Last 2 Encounter Wt Readings: Date: Wt: 06/27/2022 119.7 kg (264 lb) 05/30/2022 122.9 kg (271 lb) Previous labs/tests for medication: Not applicable Please advise. Thank you. Anupama Ceballos LPN documented in this encounter [facility] 10-09-2022 History of Present illness Narrative Radiology Service Progress Note PATIENT NAME: Irma Stewart DATE OF SERVICE: October 09, 2022 TIME: 5:08 PM PATIENT IDENTITY VERIFICATION COMPLETED USING TWO (2) IDENTIFIERS: Name and Date of confirmed by patient verbally. FALL SCREENING: Has the patient had 2 falls in the last year or 1 fall with injury or currently using an Ambulatory Assistive Device (Walker, Cane, Wheelchair, Crutches, etc.)? Yes, Patient High Risk for Falls What interventions were put in place to prevent falls during this visit? Increased Observations by Caregivers PATIENT GENDER DATA: Female. status: : No status: NO. PATIENT RELEVANT IMPLANT DATA REVIEWED: Not Applicable RADIOLOGY DEPARTMENT: General X-ray: Exam(s) Completed: Lower Extremity X-Ray(s): Foot, Left, non wt bearing PERIPHERAL IV DATA: Not applicable SIGNED BY: RT Miranda(R) October 09, 2022 5:08 PM documented in this encounter [facility] 09-24-2022 Miscellaneous Notes Last office visit: 06/27/22 Next appointment scheduled: No future appointments scheduled at this time. Last labs: 04/10/22 Patient phones requesting refills as follows: Requested Prescriptions Pending Prescriptions Disp Refills ergocalciferol 50,000 unit capsule (VITAMIN D2, DRISDOL) 24 capsule 2 Sig: Take 1 capsule by mouth two times a week. TO BE TAKEN ORALLY DIRECTED. Take 1 tablet by mouth twice weekly [id number], then decrease to 1 tablet weekly. Please review and advise. Jolene Tubbs LPN documented in this encounter [facility] 09-24-2022 Miscellaneous Notes Last office visit: 06/27/22 Next appointment scheduled: No future appointments scheduled at this time. Last labs: 04/10/22 Patient phones requesting refills as follows: Requested Prescriptions Pending Prescriptions Disp Refills rosuvastatin (CRESTOR) 10 mg tablet 90 tablet 2 Sig: Take 1 tablet by mouth daily at bedtime. Please review and advise. Jolene Tubbs LPN documented in this encounter [facility] 09-07-2022 Miscellaneous Notes Spoke with pt and information listed below given. Pt verbalizes understanding. Pt transferred to health care specialist to reschedule apt with Podiatry. Romi Pandya LPN This is often only for 3 months. Patient needs evaluated if treatment needs changed. Was a no show for podiatry. Thank you Lala Harrison APRN.MICHAEL Patient has been identified by name and date of : Yes Pharmacy phones for refill(s): Requested Prescriptions Pending Prescriptions Disp Refills terbinafine HCl (LAMISIL) 250 mg tablet [Pharmacy Med Name: TERBINAFINE HCL 250 MG TABLET] 30 tablet 2 Sig: TAKE 1 TABLET BY MOUTH EVERY DAY Date of last office visit in primary care: 06/27/22 Please advise. Thank you. Iveth Nye LPN documented in this encounter [facility] 08-21-2022 Miscellaneous Notes Patient has been identified by name and date of : Yes Patient phones for refill(s): Requested Prescriptions Pending Prescriptions Disp Refills potassium chloride (K-TAB) 10 mEq tablet 30 tablet 5 Sig: Take 1 tablet by mouth daily with breakfast. Take with lasix Date of last office visit in primary care: 06/27/22 Last 2 Encounter Wt Readings: Date: Wt: 06/27/2022 119.7 kg (264 lb) 05/30/2022 122.9 kg (271 lb) Previous labs/tests for medication: Not applicable Thank you. Romi Pandya LPN documented in this encounter [facility] 08-21-2022 Miscellaneous Notes Patient has been identified by name and date of : Yes Patient phones for refill(s): Requested Prescriptions Pending Prescriptions Disp Refills oxybutynin ER (DITROPAN XL) 10 mg 24 hr tablet 30 tablet 5 Sig: Take 1 tablet by mouth daily at bedtime. Date of last office visit in primary care: 06/27/22 Last 2 Encounter Wt Readings: Date: Wt: 06/27/2022 119.7 kg (264 lb) 05/30/2022 122.9 kg (271 lb) Previous labs/tests for medication: Not applicable Thank you. Romi Pandya LPN documented in this encounter [facility] 07-25-2022 History of Present illness Narrative POPULATION HEALTH NAVIGATION OUTREACH Action/I RP Outreach: LVM for Patient to call back and schedule [facility] Consult for Onychomycosis [B35.1]. [phone]. Any agent can assist. Pt identified by name and : YES, via MyChart Outreach Outcome/Action Unable to reach patient: Left message Did you use a PCP flex slot to schedule this appointment? No Reason for Outreach Care Gap or Scheduling/Wellness visits Payer: Payor: [facility] MEDICAID / [id number] [place] / Product Type: Medicaid / Care Gap Reviewed:: ORQ Reminder: Reminder note to check Health Maintenance for items below Health Maintenance items due: DIABETIC FOOT EXAM Never done PAP TESTING Never done HPV TESTING Never done COLORECTAL CANCER SCREENING Never done MAMMOGRAM due on 05/20/2007 SHINGRIX VACCINE(1 of 2) Never done COVID-19 VACCINE(3 - Booster for Pfizer series) due on 09/22/2021 INFLUENZA(1) due on 06/28/2022 Message Sent to Practice: No Navigation Signature: Ursula Vegas July 25, 2022 4:32 PM documented in this encounter [facility] 07-17-2022 Miscellaneous Notes Patient has been identified by name and date of : Yes Patient phones for refill(s): Requested Prescriptions Pending Prescriptions Disp Refills ferrous sulfate 325 mg (65 mg iron) tablet [Pharmacy Med Name: FERROUS SULFATE 325 MG TABLET] 60 tablet 3 Sig: TAKE 1 TABLET BY MOUTH TWICE A DAY WITH MEALS Date of last office visit in primary care: 06/27/22 Last 2 Encounter Wt Readings: Date: Wt: 06/27/2022 119.7 kg (264 lb) 05/30/2022 122.9 kg (271 lb) Previous labs/tests for medication: Not applicable Please advise. Thank you. Anupama Ceballos LPN documented in this encounter [facility] 07-03-2022 Miscellaneous Notes Patient has been identified by name and date of : Yes Patient phones for refill(s): Requested Prescriptions Pending Prescriptions Disp Refills metoprolol tartrate, short acting, (LOPRESSOR) 50 mg tablet 180 tablet 1 Sig: Take 1 tablet by mouth twice daily. Date of last office visit in primary care: 06/27/22 Last 2 Encounter Wt Readings: Date: Wt: 06/27/2022 119.7 kg (264 lb) 05/30/2022 122.9 kg (271 lb) Previous labs/tests for medication: Blood Pressure: BUN (mg/dL) Date Value 04/10/2022 8 09/19/2021 13 Sodium (mmol/L) Date Value 04/10/2022 138 09/19/2021 140 Last 1 Encounter BP Readings: Date: BP: 06/27/2022 124/74 Please advise. Thank you. Anupama Ceballos LPN documented in this encounter [facility] 06-27-2022 History of Present illness Narrative Reason for Visit Patient presents with: Recheck: med reevaluation Irma Stewart is a 62 year old female who presents here today for Above Complaints.. Health Maintenance DIABETIC FOOT EXAM PAP TESTING HPV TESTING COLORECTAL CANCER SCREENING MAMMOGRAM SHINGRIX VACCINE(1 of 2) BP CONTROLLED (<130/80) COVID-19 VACCINE(3 - Booster for Pfizer series) HPI Notes she sweats a lot and that is concerning to her. She sweats year round, her body feels over heated, she feels like she cannot get enough water. Diabetes Mellitus: she checks her sugars regularly, they run in the range of 160 or below, usually sips on orange juice before checking her sugars. Notes she has to improve her glucose control, she will cut out the diet pop. She has to get away from the juices, and carbs. Eating out. Lost her mother, ex sis inlaw, and sister and step mom.the last was february 2022. Patient notes her things have been off recently. Patient was doing very good when her hba1c was 6.1 Is getting her toe nail fungus treated with lamisil but because of the pitting and lfiting from the nail bed, elbow and knee pain, she may benefit from a derm consult. Her tgs are on the higher side. Cholesterol is fairly well controlled, she is on the crestor and needs to have that continued and renewed. No problem-specific Assessment & Plan notes found for this encounter. 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 Esophageal reflux Essential hypertension, benign KATHY (generalized anxiety disorder) GERD (gastroesophageal reflux disease) Headache(784.0) Hemorrhage of gastrointestinal tract, unspecified HTN (hypertension) Hypercholesteremia Hypothyroid IBS (irritable bowel syndrome) Internal hemorrhoids without mention of complication Intertrigo Irritable bowel syndrome Lumbar radiculopathy Migraine without aura Migraine, unspecified, without mention of intractable migraine without mention of status migrainosus Morbid obesity (HCC) Myalgia and myositis, unspecified Obesity, unspecified Onychomycosis JAYLYN (obstructive sleep apnea) Osteoarthrosis Other acute reactions to stress Other anxiety states Panic disorder Panic disorder without agoraphobia Pedal edema PMH - PAST MEDICAL HISTORY OF joint pain Pure hypercholesterolemia Schizophrenia (HCC) Sciatica, right side Sleep related bruxism Temporomandibular joint disorders, unspecified TMJ syndrome Unspecified menopausal and postmenopausal disorder Uterine prolapse without mention of vaginal wall prolapse Venous insufficiency of both lower extremities Vitamin D deficiency PAST SURGICAL HISTORY Procedure Laterality Date ARTHRP KNE CONDYLE&PLATU MEDIAL&LAT COMPARTMENTS Right 04/19/2010 COLONOSCOPY W/BIOPSY SINGLE/MULTIPLE 04/24/07 EGD 1994 LAPS ABD PRTM&OMENTUM DX W/WO SPEC BR/WA SPX Laparoscopy OTHER SURGICAL HISTORY (PLEASE SPECIFY) HX Spine injections, sees OTHER SURGICAL HISTORY (PLEASE SPECIFY) HX radiofrequency implant for chronic back pain. TONSILLECTOMY PRIMARY/SECONDARY <AGE 13 Tonsillectomy in her 20s [place] INGROWN TOENAIL Left VAGINAL HYSTERECTOMY UTERUS 250 GM/< 08/17/1997 Hysterectomy, vaginal FAMILY HISTORY Problem Relation Age of Onset Diabetes Paternal Grandmother Cancer Mother lymphoma Heart Mother mitral valve prolapse Heart Father x4 bypass Hypertension Father No Known Problems Brother Colon Cancer Other maternal aunt other (lupus) Other other (lung cancer) Other Social History Tobacco Use Smoking status: Never Smokeless tobacco: Never Substance Use Topics Alcohol use: No Past medical history, appointments, medications, allergies reviewed. Pertinent Lab/Diagnostic Studies are reviewed and discussed today Current Outpatient Medications: ferrous sulfate 325 mg (65 mg iron) tablet terbinafine HCl (LAMISIL) 250 mg tablet pregabalin (LYRICA) 100 mg capsule oxybutynin ER (DITROPAN XL) 10 mg 24 hr tablet alcohol swabs rosuvastatin (CRESTOR) 10 mg tablet metoprolol tartrate, short acting, (LOPRESSOR) 50 mg tablet Insulin [place], Disposable, (BD ULTRAFINE III MINI PEN) 31 gauge x 3/16 metFORMIN ER (GLUCOPHAGE XR) 500 mg 24 hr tablet metFORMIN ER (GLUCOPHAGE XR) 500 mg 24 hr tablet potassium chloride (K-TAB) 10 mEq tablet furosemide (LASIX) 20 mg tablet triamcinolone acetonide (KENALOG) 0.5 % cream Lancets lancets blood sugar diagnostic (BLOOD GLUCOSE TEST) test strip insulin glargine (BASAGLAR KWIKPEN U-100 INSULIN) 100 unit/mL (3 mL) omeprazole (PRILOSEC) 20 mg capsule ergocalciferol 50,000 unit capsule (VITAMIN D2, DRISDOL) divalproex DR (DEPAKOTE) 500 mg EC tablet DULoxetine 60 mg CDRS QUEtiapine (SEROQUEL) 100 mg tablet ZOLOFT 100 MG TAB Review of Systems CONSTITUTIONAL: No fevers, chills night sweats, unintended weight loss CARDIOVASCULAR: No chest pain, dyspnea, palpitations, orthopnea, PND, ankle edema. PULM: No dyspnea, unexplained cough. GI: No dysphagia/odynophagia, problematic reflux, constipation, diarrhea, changes in stool habits, hematochezia, melena. : No new urinary complaints, including dysuria, gross hematuria or pyuria. NEURO: No new balance problems, peripheral weakness/paresthesias or numbness of concern. Physical Exam BP 124/74 (BP Site: Left Arm, BP Position: Sitting, BP Cuff Size: Large Adult) Pulse 74 Temp 36.1 C (97 F) Resp 16 Ht 160 cm (5' 3) Wt 119.7 kg (264 lb) SpO2 96% BMI 46.77 kg/m General appearance: Well appearing, alert, in no acute distress, well nourished. Skin: Skin color, texture, turgor normal, no suspicious rashes or lesions Head: Normocephalic, no masses, lesions, tenderness or abnormalities Eyes: Anicteric sclera. Pupils are equally round and reactive to light. Extraocular movements are intact. Lungs: Lungs clear to auscultation. No wheezing, rhonchi, rales Heart: RRR without murmur, gallop, or rubs. Extremities: some the thumb on the right hand has pits and suggestive of onycholysi ASSESSMENT/PLAN: 1. Pitted nails - ICD9: 703.8, ICD10: L60.8 (primary diagnosis) - CONSULT TO DERMATOLOGY 2. Controlled type 2 diabetes mellitus without complication, with long-term current use of insulin (HCC) - ICD9: 250.00, V58.67, ICD10: E11.9, Z79.4 She will diet better and work to controlling her sugar 3. Mixed hyperlipidemia - ICD9: 272.2, ICD10: E78.2 - PVR LEG W/EXC [facility] 4. Vitamin B12 deficiency - ICD9: 266.2, ICD10: E53.8 Recheck level - VITAMIN B12 BLOOD Monik Hackett MD ` documented in this encounter [facility] 05-30-2022 Instructions Trixie Gibson APRN.CNP - 05/30/2022 5:01 PM EDT Use the terbinafine medication once daily for 12 weeks. Recheck your liver function labs at that point. documented in this encounter [facility] 05-30-2022 History of Present illness Narrative Chief Complaint Patient presents with: Infection: bilateral feet toenail infection HPI Irma Stewart is a 62 year old female who presents here today for Above Complaints. Today: Toenails-have been painful and yellow. Has been doing tea tree oil, vicks, soaking her feet, soaking in vinegar without improvement. Has been using probiotics. Has started taking a combination pill (combo of zinc, magnesium, calcium), 3 times daily. Would like information on a diabetic diet. Past medical history, appointments, medications, allergies reviewed. 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 Esophageal reflux Essential hypertension, benign KATHY (generalized anxiety disorder) GERD (gastroesophageal reflux disease) Headache(784.0) Hemorrhage of gastrointestinal tract, unspecified HTN (hypertension) Hypercholesteremia Hypothyroid IBS (irritable bowel syndrome) Internal hemorrhoids without mention of complication Intertrigo Irritable bowel syndrome Lumbar radiculopathy Migraine without aura Migraine, unspecified, without mention of intractable migraine without mention of status migrainosus Morbid obesity (HCC) Myalgia and myositis, unspecified Obesity, unspecified Onychomycosis JAYLYN (obstructive sleep apnea) Osteoarthrosis Other acute reactions to stress Other anxiety states Panic disorder Panic disorder without agoraphobia Pedal edema PMH - PAST MEDICAL HISTORY OF joint pain Pure hypercholesterolemia Schizophrenia (HCC) Sciatica, right side Sleep related bruxism Temporomandibular joint disorders, unspecified TMJ syndrome Unspecified menopausal and postmenopausal disorder Uterine prolapse without mention of vaginal wall prolapse Venous insufficiency of both lower extremities Vitamin D deficiency Previous Surgical History PAST SURGICAL HISTORY Procedure Laterality Date ARTHRP KNE CONDYLE&PLATU MEDIAL&LAT COMPARTMENTS Right 04/19/2010 COLONOSCOPY W/BIOPSY SINGLE/MULTIPLE 04/24/07 EGD 1994 LAPS ABD PRTM&OMENTUM DX W/WO SPEC BR/WA SPX Laparoscopy OTHER SURGICAL HISTORY (PLEASE SPECIFY) HX Spine injections, sees OTHER SURGICAL HISTORY (PLEASE SPECIFY) HX radiofrequency implant for chronic back pain. TONSILLECTOMY PRIMARY/SECONDARY <AGE 13 Tonsillectomy in her 20s [place] INGROWN TOENAIL Left VAGINAL HYSTERECTOMY UTERUS 250 GM/< 08/17/1997 Hysterectomy, vaginal Family History FAMILY HISTORY Problem Relation Age of Onset Diabetes Paternal Grandmother Cancer Mother lymphoma Heart Mother mitral valve prolapse Heart Father x4 bypass Hypertension Father No Known Problems Brother Colon Cancer Other maternal aunt other (lupus) Other other (lung cancer) Other Patient Allergies ALLERGIES Allergen Reactions Betadine [Povidone-* Unknown Glimepiride Intolerance Diarrhea Haldol [Haloperidol] Other: See Comments Headache/hallucinations [place] Other: See Comments Hallucinations Metformin Diarrhea Neurontin [Gabapent* Intolerance felt poorly Penicillins Unknown Okay to take amoxil Tylenol [Acetaminop* Intolerance Victoza [Liraglutid* GI Upset Current Medications Current Outpatient Medications on File Prior to Visit Medication Sig pregabalin (LYRICA) 100 mg capsule Take 1 capsule by mouth twice daily for 90 days. oxybutynin ER (DITROPAN XL) 10 mg 24 hr tablet Take 1 tablet by mouth daily at bedtime. alcohol swabs Apply 1 application to affected area three times daily. ferrous sulfate (SLOW FE) 140 mg (45 mg iron) TbER Take 1 tablet by mouth twice daily with meals. rosuvastatin (CRESTOR) 10 mg tablet Take 1 tablet by mouth daily at bedtime. metoprolol tartrate, short acting, (LOPRESSOR) 50 mg tablet Take 1 tablet by mouth twice daily. Insulin [place], Disposable, (BD ULTRAFINE III MINI PEN) 31 gauge x 3/16 1 Each twice daily. metFORMIN ER (GLUCOPHAGE XR) 500 mg 24 hr tablet Take 1 tablet by mouth daily with breakfast. metFORMIN ER (GLUCOPHAGE XR) 500 mg 24 hr tablet Take 1 tablet by mouth daily with breakfast. potassium chloride (K-TAB) 10 mEq tablet Take 1 tablet by mouth daily with breakfast. Take with lasix triamcinolone acetonide (KENALOG) 0.5 % cream Apply 1 application to affected area twice daily. For rash/itching. Apply sparingly. Avoid face/skin fold. Lancets lancets Test blood sugar(s) 3 times daily. Dx: Type 2 DM - Controlled E11.9 Insulin: Yes blood sugar diagnostic (BLOOD GLUCOSE TEST) test strip Test blood sugar(s) 3 times daily. Dx: Type 2 DM - Controlled E11.9 Insulin: Yes insulin glargine (BASAGLAR KWIKPEN U-100 INSULIN) 100 unit/mL (3 mL) Take 40 units in the morning and 35 units at bedtime omeprazole (PRILOSEC) 20 mg capsule Take 1 capsule by mouth once daily. ergocalciferol 50,000 unit capsule (VITAMIN D2, DRISDOL) Take 1 capsule by mouth two times a week. TO BE TAKEN ORALLY DIRECTED. Take 1 tablet by mouth twice weekly [id number], then decrease to [address] (DEPAKOTE) 500 mg EC tablet Take 500 mg by mouth twice daily. DULoxetine 60 mg CDRS Take 60 mg by mouth twice daily. QUEtiapine (SEROQUEL) 100 mg tablet Take 100 mg by mouth daily at bedtime. ZOLOFT 100 MG TAB Take one (1) and one half (1/2) tablets two (2) times daily. furosemide (LASIX) 20 mg tablet Take 1 tablet by mouth once daily. Alternate 2 pills with 1 pill daily No current facility-administered medications on file prior to visit. Social History Social History Tobacco Use Smoking status: Never Smoker Smokeless tobacco: Never Used Substance Use Topics Alcohol use: No Drug use: Not on file Review of Symptoms REVIEW OF SYSTEMS see HPI, otherwise negative EXAM: BP 136/84 (BP Site: Left Arm, BP Position: Sitting, BP Cuff Size: Large Adult) Pulse 74 Resp 16 Wt 122.9 kg (271 lb) SpO2 92% BMI 48.01 kg/m General Appearance: Well appearing, alert, in no acute distress, well-hydrated, well nourished., Morbidly obese and Wheelchair. Skin: Skin color, texture, turgor normal, no suspicious rashes or lesions, toenails of right foot yellow and brittle, toenail of left great toe yellow/brittle/lifting off nail bed. Lungs: Lungs clear to auscultation. No wheezing, rhonchi, rales.. Heart: RRR without murmur, gallop, or rubs. No ectopy. Health Maintenance List DIABETIC FOOT EXAM Never done PAP TESTING Never done HPV TESTING Never done COLORECTAL CANCER SCREENING Never done MAMMOGRAM due on 05/20/2007 SHINGRIX VACCINE(1 of 2) Never done COVID-19 VACCINE(3 - Booster for Pfizer series) due on 12/26/2021 INFLUENZA(1) due on 06/28/2022 URINE ALBUMIN:CREATININE RATIO due on 10/02/2022 BP CONTROLLED (<130/80) due on 10/02/2022 PNEUMOCOCCAL(2 - PCV) due on 10/02/2022 HBA1C due on 10/10/2022 DILATED RETINAL EXAM due on 03/20/2023 LDL CHOLESTEROL due on 04/10/2023 ANNUAL PCP TEAM CHRONIC DISEASE VISIT due on 05/30/2023 DTAP,TDAP,TD(3 - Td or Tdap) due on 10/02/2031 HEPATITIS C SCREENING Discontinued HIV SCREENING Discontinued Data reviewed Previous records, office notes ASSESSMENT/PLAN: 1. Onychomycosis - ICD9: 110.1, ICD10: B35.1 LFTs WNL. Begin daily terbinafine. Discussed common side effects and actions. Recheck LFTs in 3 months. - TERBINAFINE HCL 250 MG TABLET - HEPATIC FUNCTION PNL Trixie Gibson APRN.CNP documented in this encounter [facility] 05-18-2022 Miscellaneous Notes Please let patient know she is overdue for routine follow up, and needs this prior to more refills, short refill prescribed at this time. Thank you Lala Harrison APRN.MICHAEL PDMP website checked and validated. All prescriptions have been APPROPRIATELY filled. No suspicious activity was identified. 05/18/2022 by Lala Harrison APRN.CNP Last office visit: 10/02/21 F/u scheduled: none Last refilled on: Lyrica #[id number] with 2 refill on 02/09/22 Sherly Storey Ma documented in this encounter [facility] 05-14-2022 Miscellaneous Notes Patient has been identified by name and date of : Yes Patient phones for refill(s): Pending Prescriptions Disp Refills OXYBUTYNIN CHLORIDE ER 10 MG TABLET,EXTENDED RELEASE 24 HR 30 tablet 5 Sig: Take 1 tablet by mouth daily at bedtime. JENNIFER: No Date of last office visit in primary care: 10/02/2021 No future appt scheduled. Last 2 Encounter Wt Readings: Date: Wt: 12/07/2020 117.5 kg (259 lb) 09/15/2020 119.3 kg (263 lb) Previous labs/tests for medication: Not applicable Please advise. Thank you. Nidia Silverio LPN documented in this encounter [facility] 03-14-2022 Miscellaneous Notes See other MyChart encounter from today 03/14/2022. Trixie Gibson APRN.MICHAEL documented in this encounter [facility] 03-14-2022 Miscellaneous Notes Please see patient message Esther Baer Ma documented in this encounter [facility] 02-09-2022 Miscellaneous Notes The following approved medication requests have been transmitted electronically. Signed Prescriptions Disp Refills pregabalin (LYRICA) 100 mg capsule 60 capsule 2 Sig: Take 1 capsule by mouth twice daily for 90 days. STEFANIE Class: C-V JENNIFER: No Authorizing Provider: TRIXIE GIBSON APRN.CNP PDMP website checked and validated. All prescriptions have been APPROPRIATELY filled. No suspicious activity was identified. 02/09/2022 by Trixie Gibson CNP. Patient has been identified by name and date of : Yes Patient phones for refill(s): Pending Prescriptions Disp Refills PREGABALIN 100 MG CAPSULE 60 capsule 2 Sig: Take 1 capsule by mouth twice daily for 90 days. STEFANIE Class: C-V JENNIFER: No Date of last office visit in primary care: 10/02/21 Last 2 Encounter Wt Readings: Date: Wt: 12/07/2020 117.5 kg (259 lb) 09/15/2020 119.3 kg (263 lb) Previous labs/tests for medication: Not applicable Please advise. Thank you. Kenia Dangelo LPN documented in this encounter [facility] History of Past i llness Narrative Problem Noted Date Resolved Date Abdominal pain, unspecified site 10/15/2006 12/07/2020 documented as of this encounter (statuses as of 02/09/2022) [facility] History of Past illness Narrative* Problem Noted Date Resolved Date Abdominal pain, unspecified site 10/15/2006 12/07/2020 documented as of this encounter (statuses as of 03/14/2022) [address] History of Past illness Narrative* Problem Noted Date Resolved Date Abdominal pain, unspecified site 10/15/2006 12/07/2020 documented as of this encounter (statuses as of 05/05/2022) [address]2006 History of Past illness Narrative* Problem Noted Date Resolved Date Abdominal pain, unspecified site 10/15/2006 12/07/2020 documented as of this encounter (statuses as of 05/17/2022) [address]2006 History of Past illness Narrative* Problem Noted Date Resolved Date Abdominal pain, unspecified site 10/15/2006 12/07/2020 documented as of this encounter (statuses as of 05/19/2022) [facility] History of Past illness Narrative* Problem Noted Date Resolved Date Abdominal pain, unspecified site 10/15/2006 12/07/2020 documented as of this encounter (statuses as of 05/28/2022) [address]2006 History of Past illness Narrative* Problem Noted Date Resolved Date Abdominal pain, unspecified site 10/15/2006 12/07/2020 documented as of this encounter (statuses as of 05/31/2022) [address]2006 History of Past illness Narrative* Problem Noted Date Resolved Date Abdominal pain, unspecified site 10/15/2006 12/07/2020 documented as of this encounter (statuses as of 06/28/2022) [address]2006 History of Past illness Narrative* Problem Noted Date Resolved Date Abdominal pain, unspecified site 10/15/2006 12/07/2020 documented as of this encounter (statuses as of 07/05/2022) [place] [id number] History of Past illness Narrative* Problem Noted Date Resolved Date Abdominal pain, unspecified site 10/15/2006 12/07/2020 documented as of this encounter (statuses as of 07/18/2022) [address]2006 History of Past illness Narrative* Problem Noted Date Resolved Date Abdominal pain, unspecified site 10/15/2006 12/07/2020 documented as of this encounter (statuses as of 07/25/2022) [address] History of Past illness Narrative* Problem Noted Date Resolved Date Abdominal pain, unspecified site 10/15/2006 12/07/2020 documented as of this encounter (statuses as of 08/22/2022) [address] History of Past illness Narrative* Problem Noted Date Resolved Date Abdominal pain, unspecified site 10/15/2006 12/07/2020 documented as of this encounter (statuses as of 09/07/2022) [address] History of Past illness Narrative* Problem Noted Date Resolved Date Abdominal pain, unspecified site 10/15/2006 12/07/2020 documented as of this encounter (statuses as of 09/26/2022) [address] History of Past illness Narrative* Problem Noted Date Resolved Date Abdominal pain, unspecified site 10/15/2006 12/07/2020 documented as of this encounter (statuses as of 09/26/2022) [address] History of Past illness Narrative* Problem Noted Date Resolved Date Abdominal pain, unspecified site 10/15/2006 12/07/2020 documented as of this encounter (statuses as of 11/13/2022) [address] History of Past illness Narrative* Problem Noted Date Resolved Date Abdominal pain, unspecified site 10/15/2006 12/07/2020 documented as of this encounter (statuses as of 11/29/2022) [address] History of Past illness Narrative* Problem Noted Date Resolved Date Abdominal pain, unspecified site 10/15/2006 12/07/2020 documented as of this encounter (statuses as of 12/25/2022) [address] History of Past illness Narrative* Problem Noted Date Resolved Date Abdominal pain, unspecified site 10/15/2006 12/07/2020 documented as of this encounter (statuses as of 01/02/2023) [address] History of Past illness Narrative* Problem Noted Date Resolved Date Abdominal pain, unspecified site 10/15/2006 12/07/2020 documented as of this encounter (statuses as of 01/04/2023) [address] History of Past illness Narrative* Problem Noted Date Resolved Date Abdominal pain, unspecified site 10/15/2006 12/07/2020 documented as of this encounter (statuses as of 01/24/2023) [address] History of Past illness Narrative* Problem Noted Date Resolved Date Abdominal pain, unspecified site 10/15/2006 12/07/2020 documented as of this encounter (statuses as of 01/31/2023) [address] History of Past illness Narrative* Problem Noted Date Resolved Date Abdominal pain, unspecified site 10/15/2006 12/07/2020 documented as of this encounter (statuses as of 02/01/2023) [address] History of Past illness Narrative* Problem Noted Date Resolved Date Abdominal pain, unspecified site 10/15/2006 12/07/2020 documented as of this encounter (statuses as of 02/28/2023) [address] History of Past illness Narrative* Problem Noted Date Resolved Date Abdominal pain, unspecified site 10/15/2006 12/07/2020 documented as of this encounter (statuses as of 03/27/2023) [address] History of Past illness Narrative* Problem Noted Date Resolved Date Abdominal pain, unspecified site 10/15/2006 12/07/2020 documented as of this encounter (statuses as of 04/12/2023) [address] History of Past illness Narrative* Problem Noted Date Resolved Date Abdominal pain, unspecified site 10/15/2006 12/07/2020 documented as of this encounter (statuses as of 04/12/2023) [address] History of Past illness Narrative* Problem Noted Date Resolved Date Abdominal pain, unspecified site 10/15/2006 12/07/2020 documented as of this encounter (statuses as of 04/16/2023) [address] History of Past illness Narrative* Problem Noted Date Resolved Date Abdominal pain, unspecified site 10/15/2006 12/07/2020 documented as of this encounter (statuses as of 04/19/2023) [address] History of Past illness Narrative* Problem Noted Date Resolved Date Abdominal pain, unspecified site 10/15/2006 12/07/2020 documented as of this encounter (statuses as of 04/23/2023) [address] History of Past illness Narrative* Problem Noted Date Diagnosed Date Resolved Date Abdominal pain, unspecified site 10/15/2006 12/07/2020 documented as of this encounter (statuses as of 05/04/2023) [address] History of Past illness Narrative* Problem Noted Date Diagnosed Date Resolved Date Abdominal pain, unspecified site 10/15/2006 12/07/2020 documented as of this encounter (statuses as of 05/06/2023) [address] History of Past illness Narrative* Problem Noted Date Diagnosed Date Resolved Date Abdominal pain, unspecified site 10/15/2006 12/07/2020 documented as of this encounter (statuses as of 05/24/2023) [address] History of Past illness Narrative* Problem Noted Date Diagnosed Date Resolved Date Abdominal pain, unspecified site 10/15/2006 12/07/2020 documented as of this encounter (statuses as of 05/28/2023) [address] History of Past illness Narrative* Problem Noted Date Diagnosed Date Resolved Date Abdominal pain, unspecified site 10/15/2006 12/07/2020 documented as of this encounter (statuses as of 05/31/2023) [address] History of Past illness Narrative* Problem Noted Date Diagnosed Date Resolved Date Abdominal pain, unspecified site 10/15/2006 12/07/2020 documented as of this encounter (statuses as of 06/12/2023) [address] History of Past illness Narrative* Problem Noted Date Diagnosed Date Resolved Date Abdominal pain, unspecified site 10/15/2006 12/07/2020 documented as of this encounter (statuses as of 07/13/2023) [address] History of Past illness Narrative* Problem Noted Date Diagnosed Date Resolved Date Abdominal pain, unspecified site 10/15/2006 12/07/2020 documented as of this encounter (statuses as of 07/16/2023) [address]19-2006 History of Past illness Narrative* Problem Noted Date Diagnosed Date Resolved Date Abdominal pain, unspecified site 10/15/2006 12/07/2020 documented as of this encounter (statuses as of 08/09/2023) [address] History of Past illness Narrative* Problem Noted Date Diagnosed Date Resolved Date Abdominal pain, unspecified site 10/15/2006 12/07/2020 documented as of this encounter (statuses as of 08/13/2023) [address]19-2006 History of Past illness Narrative* Problem Noted Date Diagnosed Date Resolved Date Abdominal pain, unspecified site 10/15/2006 12/07/2020 documented as of this encounter (statuses as of 08/22/2023) [address]19-2006 History of Past illness Narrative* Problem Noted Date Diagnosed Date Resolved Date Abdominal pain, unspecified site 10/15/2006 12/07/2020 documented as of this encounter (statuses as of 08/31/2023) [address] History of Past illness Narrative* Problem Noted Date Diagnosed Date Resolved Date Abdominal pain, unspecified site 10/15/2006 12/07/2020 documented as of this encounter (statuses as of 09/03/2023) [address] History of Past illness Narrative* Problem Noted Date Diagnosed Date Resolved Date Abdominal pain, unspecified site 10/15/2006 12/07/2020 documented as of this encounter (statuses as of 10/01/2023) [address] History of Past illness Narrative* Problem Noted Date Diagnosed Date Resolved Date Abdominal pain, unspecified site 10/15/2006 12/07/2020 documented as of this encounter (statuses as of 10/01/2023) [address] History of Past illness Narrative* Problem Noted Date Diagnosed Date Resolved Date Abdominal pain, unspecified site 10/15/2006 12/07/2020 documented as of this encounter (statuses as of 10/01/2023) [address] History of Past illness Narrative* Problem Noted Date Diagnosed Date Resolved Date Abdominal pain, unspecified site 10/15/2006 12/07/2020 documented as of this encounter (statuses as of 10/03/2023) [address] History of Past illness Narrative* Problem Noted Date Diagnosed Date Resolved Date Abdominal pain, unspecified site 10/15/2006 12/07/2020 documented as of this encounter (statuses as of 10/04/2023) [address] History of Past illness Narrative* Problem Noted Date Diagnosed Date Resolved Date Abdominal pain, unspecified site 10/15/2006 12/07/2020 documented as of this encounter (statuses as of 10/04/2023) [address] History of Past illness Narrative* Problem Noted Date Diagnosed Date Resolved Date Abdominal pain, unspecified site 10/15/2006 12/07/2020 documented as of this encounter (statuses as of 10/04/2023) [address] History of Past illness Narrative* Problem Noted Date Diagnosed Date Resolved Date Abdominal pain, unspecified site 10/15/2006 12/07/2020 documented as of this encounter (statuses as of 12/03/2023) [address] History of Past illness Narrative* Problem Noted Date Diagnosed Date Resolved Date Abdominal pain, unspecified site 10/15/2006 12/07/2020 documented as of this encounter (statuses as of 12/06/2023) [address] History of Past illness Narrative* Problem Noted Date Diagnosed Date Resolved Date Abdominal pain, unspecified site 10/15/2006 12/07/2020 documented as of this encounter (statuses as of 12/06/2023) [address] History of Past illness Narrative* Problem Noted Date Diagnosed Date Resolved Date Abdominal pain, unspecified site 10/15/2006 12/07/2020 documented as of this encounter (statuses as of 12/09/2023) [address] History of Past illness Narrative* Problem Noted Date Diagnosed Date Resolved Date Abdominal pain, unspecified site 10/15/2006 12/07/2020 documented as of this encounter (statuses as of 12/09/2023) [address] History of Past illness Narrative* Problem Noted Date Diagnosed Date Resolved Date Abdominal pain, unspecified site 10/15/2006 12/07/2020 documented as of this encounter (statuses as of 12/11/2023) [address] History of Past illness Narrative* Problem Noted Date Diagnosed Date Resolved Date Abdominal pain, unspecified site 10/15/2006 12/07/2020 documented as of this encounter (statuses as of 12/11/2023) [address] History of Past illness Narrative* Problem Noted Date Diagnosed Date Resolved Date Abdominal pain, unspecified site 10/15/2006 12/07/2020 documented as of this encounter (statuses as of 12/12/2023) [address] History of Past illness Narrative* Problem Noted Date Diagnosed Date Resolved Date Abdominal pain, unspecified site 10/15/2006 12/07/2020 documented as of this encounter (statuses as of 12/12/2023) [address] History of Past illness Narrative* Problem Noted Date Diagnosed Date Resolved Date Abdominal pain, unspecified site 10/15/2006 12/07/2020 documented as of this encounter (statuses as of 01/07/2024) [address]19-2006 History of Past illness Narrative* Problem Noted Date Diagnosed Date Resolved Date Abdominal pain, unspecified site 10/15/2006 12/07/2020 documented as of this encounter (statuses as of 01/08/2024) [address]19-2006 History of Past illness Narrative* Problem Noted Date Diagnosed Date Resolved Date Abdominal pain, unspecified site 10/15/2006 12/07/2020 documented as of this encounter (statuses as of 01/27/2024) [address] History of Past illness Narrative* Problem Noted Date Diagnosed Date Resolved Date Abdominal pain, unspecified site 10/15/2006 12/07/2020 documented as of this encounter (statuses as of 02/07/2024) [address] History of Past illness Narrative* Problem Noted Date Diagnosed Date Resolved Date Abdominal pain, unspecified site 10/15/2006 12/07/2020 documented as of this encounter (statuses as of 02/14/2024) [facility] No data available for this section [facility] [place] [facility]* Diagnosis Fibromyalgia Mylagia and myositis, unspecified [facility] Need for vaccination Need for prophylactic vaccination and inoculation against unspecified single disease [facility] [place] [facility] Diagnosis Need for vaccination Need for prophylactic vaccination and inoculation against unspecified single disease [facility] Diagnosis Fibromyalgia Mylagia and myositis, unspecified [facility] [place] [facility]* Diagnosis Encounter for screening mammogram for breast cancer [facility] [place] [facility]* Diagnosis Onychomycosis- Primary Dermatophytosis of nail [facility] [place] [facility]* Diagnosis Pitted nails- Primary Other specified disease of nail Controlled type 2 diabetes mellitus without complication, with long-term current use of insulin ([facility]) Mixed hyperlipidemia Vitamin B12 deficiency Other B-complex deficiencies [facility] [place] [facility]* Diagnosis Essential hypertension, benign [facility] Diagnosis History of iron deficiency Personal history of diseases of blood and blood-forming organs [facility] [place] [facility]* Diagnosis Need for vaccination Need for prophylactic vaccination and inoculation against unspecified single disease [facility] [place] [facility]* Diagnosis Essential hypertension, benign [facility] Diagnosis Onychomycosis Dermatophytosis of nail [facility] Diagnosis Mixed hyperlipidemia [facility] Diagnosis Need for vaccination Need for prophylactic vaccination and inoculation against unspecified single disease [facility]* Diagnosis Fibromyalgia Mylagia and myositis, unspecified [facility] [place] [facility]* Diagnosis Controlled type 2 diabetes mellitus without complication, with long-term current use of insulin (HCC)- Primary Vitamin B12 deficiency Other B-complex deficiencies Vitamin D deficiency Unspecified vitamin D deficiency [facility] [place] [facility]* Diagnosis Controlled type 2 diabetes mellitus without complication, with long-term current use of insulin (HCC) Essential hypertension, benign [facility] [place] [facility]* Diagnosis Controlled type 2 diabetes mellitus without complication, with long-term current use of insulin (HCC) [facility] [place] [facility]* Diagnosis Schizophrenia, unspecified type (HCC)- Primary Fibromyalgia Mylagia and myositis, unspecified Moderate episode of recurrent major depressive disorder (HCC) Controlled type 2 diabetes mellitus without complication, with long-term current use of insulin (HCC) Hypertriglyceridemia Pure hyperglyceridemia Subcutaneous nodules Localized superficial swelling, mass, or lump [facility] [place] [facility]* Diagnosis 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 DDD (degenerative disc disease), lumbar Degeneration of lumbar or lumbosacral intervertebral disc Narrowing of intervertebral disc space Degeneration of intervertebral disc, site unspecified [facility] [place] [facility]* Diagnosis Knee joint injury, initial encounter- Primary [facility] [place] [facility]* Diagnosis Controlled type 2 diabetes mellitus without complication, with long-term current use of insulin (HCC)- Primary Medication management Encounter for long-term (current) use of other medications [facility] [place] [facility]* Diagnosis Controlled type 2 diabetes mellitus without complication, with long-term current use of insulin (HCC) [facility] [place] [facility]* Diagnosis Controlled type 2 diabetes mellitus without complication, with long-term current use of insulin ([facility]) [facility] [place] [facility]* Diagnosis Encounter for screening mammogram for breast cancer [facility] [place] [facility]* Diagnosis Benign paroxysmal po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- Primary Benign paroxysmal vertigo of both ears Benign paroxysmal positional vertigo [facility] [place] [facility]* Diagnosis Controlled type 2 diabetes mellitus without complication, with long-term current use of insulin (HCC)- Primary [facility] [place] [facility]* Diagnosis Fibromyalgia Mylagia and myositis, unspecified [facility] [place] [facility]* Diagnosis Generalized pain- Primary Burning sensation Disturbance of skin sensation Weakness Other malaise and fatigue Brain fog Controlled type 2 diabetes mellitus without complication, with long-term current use of insulin (HCC) Fibromyalgia Mylagia and myositis, unspecified [facility] [place] [facility]* Diagnosis NANCY positive- Primary Other and unspecified nonspecific immunological findings History of iron deficiency Personal history of diseases of blood and blood-forming organs Esophageal reflux Screening for cervical cancer Screening for malignant neoplasm of the cervix Screening for colon cancer Special screening for malignant neoplasms, colon Encounter for immunization Need for other specified prophylactic vaccination against single bacterial disease Controlled type 2 diabetes mellitus without complication, with long-term current use of insulin (HCC) Screening for diabetic retinopathy Screening for other eye conditions Generalized pain Burning sensation Disturbance of skin sensation Fibromyalgia Mylagia and myositis, unspecified Irritant contact dermatitis due to cosmetics Dermatitis due to cosmetics Rash and nonspecific skin eruption Rash and other nonspecific skin eruption [facility] [place] [facility]* Diagnosis Fibromyalgia Mylagia and myositis, unspecified [facility] [place] [facility]* Diagnosis Need for vaccination Need for prophylactic vaccination and inoculation against unspecified single disease [facility] [place] [facility]* Diagnosis Hammertoe of left foot [facility] [place] [facility]* Diagnosis Controlled type 2 diabetes mellitus without complication, with long-term current use of insulin ([facility]) [facility] [place] [facility]* Diagnosis Essential hypertension, benign Mixed hyperlipidemia [facility] [place] [facility]* Diagnosis Essential hypertension, benign documented [facility] [place] [facility]* Diagnosis Essential hypertension, benign- Primary [facility] [place] [facility]* Diagnosis Fibromyalgia Mylagia and myositis, unspecified [facility] [place] [facility]* Diagnosis Generalized pain Burning sensation Disturbance of skin sensation Fibromyalgia Mylagia and myositis, unspecified [facility] [place] [facility]* Diagnosis Hypoxia- Primary Hypoxemia [facility] [place] [facility]* Diagnosis Shortness of breath documented [facility] this encounter [facility] [place] [facility]* Diagnosis Shortness of breath documented [facility] this [facility] [place] [facility]* Diagnosis Hypoxia Hypoxemia Shortness of breath [facility] [place] [facility]* Diagnosis Hypoxia- Primary Hypoxemia Shortness of breath [facility] [place] [facility]* Diagnosis Need for vaccination Need for prophylactic vaccination and inoculation against unspecified single disease [facility] [place] [facility]* Diagnosis Controlled type 2 diabetes mellitus without complication, with long-term current use of insulin (HCC) documented [facility] [place] [facility]* Diagnosis Mixed hyperlipidemia Generalized pain Burning sensation Disturbance of skin sensation Fibromyalgia Mylagia and myositis, unspecified [facility] [place] [facility]* Diagnosis Hypoxia- Primary Hypoxemia On home oxygen therapy Dependence on supplemental oxygen Abnormal lung function test Nonspecific abnormal results of pulmonary system function study [facility] this [facility] [place] [facility]* Diagnosis Essential hypertension, benign [facility] [place] [facility]* Diagnosis History of iron deficiency Personal history of diseases of blood and blood-forming organs [facility] [place] [facility]* Diagnosis History of iron deficiency Personal history of diseases of blood and blood-forming organs documented in this encounter [facility] note* Diagnosis Need for vaccination Need for prophylactic vaccination and inoculation against unspecified single disease [facility] [place] [facility]* Diagnosis Need for vaccination Need for prophylactic vaccination and inoculation against unspecified single disease [facility] [place] [facility]* Diagnosis Hypoxemia- Primary [facility] [place] [facility]* Diagnosis Chest pain, unspecified type- Primary SOBOE (shortness of breath on exertion) Shortness of breath Hot flashes Symptomatic menopausal or female climacteric states Controlled type 2 diabetes mellitus without complication, with long-term current use of insulin ([facility]) Screening for diabetic retinopathy Screening for other eye conditions Irritant contact dermatitis due to cosmetics Dermatitis due to cosmetics Encounter for immunization Need for other specified prophylactic vaccination against single bacterial disease [facility] [place] [facility]* Diagnosis Essential hypertension, benign documented [facility] [place] [facility]* Diagnosis Encounter for screening mammogram for breast cancer documented [facility] [place] [facility]* Diagnosis Essential hypertension, benign documented [facility] this encounter [facility] [place] [facility]* Diagnosis Essential hypertension, benign [facility] [place] [facility]* Diagnosis Generalized pain Burning sensation Disturbance of skin sensation Fibromyalgia Mylagia and myositis, unspecified [facility] encounter [facility] [place] [facility]* Diagnosis Mild persistent asthma without complication- Primary Unspecified asthma [facility] [place] [facility]* Diagnosis Mild persistent asthma without complication- Primary Unspecified asthma SOB (shortness of breath) Shortness of breath Hypoxemia Morbid obesity (HCC) Morbid obesity [facility] [place] [facility]* Diagnosis Controlled type 2 diabetes mellitus without complication, with long-term current use of insulin ([facility])- Primary Chest pain, unspecified type SOBOE (shortness of breath on exertion) Shortness of breath [facility] [place] [facility]* Diagnosis Vitamin D deficiency- Primary Unspecified vitamin D deficiency documented [facility] [place] [facility]* Diagnosis Generalized pain Burning sensation Disturbance of skin sensation Fibromyalgia Mylagia and myositis, unspecified Controlled type 2 diabetes mellitus without complication, with long-term current use of insulin (HCC) documented [facility] [place] [facility]* Diagnosis Pain of right thumb Pain in limb [facility] [place] [facility]* Diagnosis Acute cough Shortness of breath [facility] [place] [facility]* Diagnosis Knee joint injury, initial encounter documented [facility] [place] [facility]* Diagnosis Chronic bilateral low back pain with bilateral sciatica documented [facility] [place] [facility]* Diagnosis Need for vaccination Need for prophylactic vaccination and inoculation against unspecified single disease [facility] [place] [facility]* Diagnosis Controlled type 2 diabetes mellitus without complication, with long-term current use of insulin (HCC) Medication management Encounter for long-term (current) use of other medications documented in this encounter [facility] note* Diagnosis Fatigue, unspecified type- Primary Generalized pain Burning sensation Disturbance of skin sensation Fibromyalgia Mylagia and myositis, unspecified Controlled type 2 diabetes mellitus without complication, with long-term current use of insulin (HCC) [facility] [place] [facility]* Diagnosis Panic disorder without agoraphobia- Primary Moderate episode of recurrent major depressive disorder (HCC) Insomnia, unspecified type Controlled type 2 diabetes mellitus without complication, with long-term current use of insulin (HCC) Burning sensation Disturbance of skin sensation Fibromyalgia Mylagia and myositis, unspecified Other fatigue Generalized pain [facility] [place] [facility]* Diagnosis Essential hypertension, benign [facility] [place] [facility]* Diagnosis Schizophrenia, unspecified type (HCC) documented [facility] [place] [facility]* Diagnosis Mixed hyperlipidemia [facility] [place] [facility]* Diagnosis Schizophrenia, unspecified type (HCC) Need for vaccination Need for prophylactic vaccination and inoculation against unspecified single disease Essential hypertension, benign Insomnia, unspecified type [facility] [place] [facility] Diagnosis Controlled type 2 diabetes mellitus without complication, with long-term current use of insulin (HCC) History of iron deficiency Personal history of diseases of blood and blood-forming organs [facility] [place] [facility] Diagnosis Hypoxemia- Primary documented in this encounter [facility] note* Diagnosis Generalized pain Burning sensation Disturbance of skin sensation Fibromyalgia Mylagia and myositis, unspecified Moderate episode of recurrent major depressive disorder (HCC) documented in this encounter [facility] note* Diagnosis History of iron deficiency Personal history of diseases of blood and blood-forming organs Essential hypertension, benign Insomnia, unspecified type Controlled type 2 diabetes mellitus without complication, with long-term current use of insulin (HCC) Esophageal reflux Need for vaccination Need for prophylactic vaccination and inoculation against unspecified single disease Schizophrenia, unspecified type ([facility]) Mixed hyperlipidemia Vitamin D deficiency Unspecified vitamin D deficiency documented in this encounter [facility] note* Diagnosis Encounter for screening mammogram for breast cancer documented in this encounter [facility] note* Diagnosis Dizziness- Primary Dizziness and giddiness Tinnitus of both ears Unspecified tinnitus Controlled type 2 diabetes mellitus without complication, with long-term current use of insulin (HCC) Other chronic pain Weight gain Abnormal weight gain Paresthesia of bilateral legs Disturbance of skin sensation Insomnia, unspecified type Schizophrenia, unspecified type (HCC) Panic disorder without agoraphobia Medication management Encounter for long-term (current) use of other medications documented in this encounter [facility] note* Diagnosis Generalized pain Burning sensation Disturbance of skin sensation Fibromyalgia Mylagia and myositis, unspecified Moderate episode of recurrent major depressive disorder (HCC) documented in this encounter [facility] note* Diagnosis Essential hypertension, benign documented in this encounter [facility] for referral (narrative)* Diagnostic Procedure Only (Routine) - Pending Review Specialty Diagnoses / Procedures Referred By Fiorella stanley Referred To Contact [facility] IM[facility]ING Diagnoses Encounter for screening mammogram for breast cancer Procedures ALTHEA SCREENING SCREENING MAMMOGRAPHY BI 2-VIEW BREAST INC Monik Hastings MD [address] [place] [address] [facility] [address] [place] [address] Referral ID Status Reason Start Date Expiration Date Visits Requested Visits Authorized [id number] Pending Review Auto-Generat ed Referral 05/23/2022 06/22/2023 1 1 [facility] for referral (narrative)* Outpatient Procedure (Routine) - Authorized Specialty Diagnoses / Procedures Referred By Fiorella stanley Referred To Contact [facility] Diagnoses Mixed hyperlipidemia Procedures PVR LEG W/EXC RYLEY VAS LAB N-INVAS PHYSIOLOGIC STD LXTR ART COMPL BI Monik Hackett MD [address] [place] [address] [facility] [place] [address] [place] [address] Referral ID Status Reason Start Date Expiration Date Visits Requested Visits Authorized [id number] Authorized Auto-Generat ed Referral 06/27/2022 06/27/2023 1 1 * Transition of Care (Routine) - Ref Not Required Specialty Diagnoses / Procedures Referred By Fiorella stanley Referred To Contact Dermatology Diagnoses Pitted nails Procedures CONSULT TO DERMATOLOGY Monik Hackett MD [address] [place] [address] Referral ID Status Reason Start Date Expiration Date Visits Requested Visits Authorized [id number] Ref Not Required PCP Requested Referral 06/27/2022 06/27/2023 1 1 [facility] for referral (narrative)* Diagnostic Procedure Only (Routine) - Pending Review Specialty Diagnoses / Procedures Referred By Fiorella stanley Referred To Contact US IMAGING Diagnoses Subcutaneous nodules Procedures US EXTREMITY MASS/FLUID COLLECTION LEFT Monik Hackett MD [address] [place] [address] [facility] Referral ID Status Reason Start Date Expiration Date Visits Requested Visits Authorized [id number] Pending Review Auto-Generat ed Referral 01/23/2023 02/22/2024 1 1 [facility] for referral (narrative)* Diagnostic Procedure Only (Routine) - Pending Review Specialty Diagnoses / Procedures Referred By Fiorella stanley Referred To Contact [facility] IM[facility] Diagnoses Encounter for screening mammogram for breast cancer Procedures ALTHEA SCREENING SCREENING MAMMOGRAPHY BI 2-VIEW BREAST INC CAD Monik Hackett MD [address] [place] [address] [facility] [address] [place] [address] Referral ID Status Reason Start Date Expiration Date Visits Requested Visits Authorized [id number] Pending Review Auto-Generat ed Referral 05/01/2023 05/30/2024 1 1 [facility] for referral (narrative)* Diagnostic Procedure Only (Routine) - Closed Specialty Diagnoses / Procedures [facility] Referred To Contact XR IMAGING Diagnoses Hammertoe of left foot Procedures XR FOOT GENERAL 3V AP/LAT/OBL LEFT RADEX FOOT COMPLETE MINIMUM 3 VIEWS Narendra Turner [address] [place] [address] [place] [address] Referral ID Status Reason Start Date Expiration Date V isits Requested Visits Authorized [id number] Closed Auto-Generate d Referral 10/09/2022 11/08/2023 1 1 [facility] for referral (narrative)* Outpatient Procedure (Routine) - Pending Review Specialty Diagnoses / Procedures Referred By [facility] Referred To Contact [facility] Diagnoses Hypoxemia Procedures ECHO ECHO TTHRC R-T 2D W/WOM-MODE COMPL SPEC&COLR D Camila Johns MD [address] [place] [address] [facility] [place] [address] [place] [address] Referral ID Status Reason Start Date Expiration Date Visits Requested Visits Authorized [id number] Pending Review Auto-Generat ed Referral 02/27/2024 02/26/2025 1 1 [facility] for referral (narrative)* Outpatient Procedure (Routine) - Pending Review Specialty Diagnoses / Procedures Referred By Contac t Referred To Contact [facility] Diagnoses Chest pain, unspecified type SOBOE (shortness of breath on exertion) Procedures STRESS ECHO DOBUTAMINE ECHO TTHRC R-T 2D W/WO M-MODE COMPLETE REST&ST Jaime Spencer APRN.CRM SOLUTION ARCHITECT [address] [place] [address] [facility] [address] [address] Referral ID Status Reason Start Date Expiration Date Visits Requested Visits Authorized [id number] Pending Review Auto-Generat ed Referral 02/27/2024 02/26/2025 1 1 * Medication Prior Authorization - Closed Specialty Diagnoses / Procedures Referred By Fiorella stanley Referred To Contact Jaime Spencer APRN.CRM SOLUTION ARCHITECT [address] [place] [address] Referral ID Status Reason Start Date Expiration Date Visits Re quested Visits Authorized [id number] Closed 1 1 * Outpatient Procedure (Routine) - Pending Review Specialty Diagnoses / Procedures Referred By Fiorella stanley Referred To Contact [facility] Diagnoses Chest pain, unspecified type Procedures ECG COMPLETE ECG ROUTINE ECG W/LEAST 12 LDS W/I&R Jaime Spencer APRN.CRM SOLUTION ARCHITECT [address] [place] [address] [facility] [address] [address] Referral ID Status Reason Start Date Expiration Date Visits Requested Visits Authorized [id number] Pending Review Auto-Generat ed Referral 02/27/2024 02/26/2025 1 1 * Consult, Test, Treat (Routine) - Authorized Specialty Diagnoses / Procedures Referred By Fiorella stanley Referred To Contact Ophthalmology Diagnoses Screening for diabetic retinopathy Controlled type 2 diabetes mellitus without complication, with long-term current use of insulin (HCC) Procedures CONSULT TO OPHTHALMOLOGY OFFICE/OUTPATIENT NEW HIGH MDM 60 MINUTES Jaime Spencer APRN.CNS [address] [place] [address] Referral ID Status Reason Start Date Expiration Date Visits Requested Visits Authorized [id number] Authorized PCP Requested Referral 02/27/2024 02/26/2025 1 1 [facility] for referral (narrative)* Diagnostic Procedure Only (Routine) - Pending Review Specialty Diagnoses / Procedures Referred By Contac t Referred To Contact [facility] IMAG[facility] Diagnoses Encounter for screening mammogram for breast cancer Procedures ALTHEA SCREENING W CORIN SCREENING DIGITAL BREAST TOMOSYNTHESIS BI SCREENING MAMMOGRAPHY BI 2-VIEW BREAST INC Monik Hastings MD [address] [place] [address] [facility] [address] [place] [address] Referral ID Status Reason Start Date Expiration Date Visits Requested Visits Authorized [id number] Pending Review Auto-Generat ed Referral 04/08/2024 05/08/2025 1 1 [facility] for referral (narrative)* Diagnostic Procedure Only (Urgent) - Closed Specialty Diagnoses / Procedures Referred By Contac t Referred To Contact XR IMAGING Diagnoses Pain of right thumb Procedures XR DIGIT GENERAL 3V FRONTAL/LAT/OBL RIGHT RADEX FINGR MINIMUM 2 VIEWS Gavi Norwood APRN.SOLE INKER [address] [place] [address] [place] [address] Referral ID Status Reason Start Date Expiration Date V isits Requested Visits Authorized [id number] Closed Auto-Generate d Referral 11/25/2023 12/24/2024 1 1 [facility] for referral (narrative)* Diagnostic Procedure Only (Urgent) - Closed Specialty Diagnoses / Procedures Referred By Contac t Referred To Contact XR IMAGING Diagnoses Knee joint injury, initial encounter Procedures XR KNEE GENERAL 4V AP BOTH/PA BOTH/LAT/MERC BILATERAL RADIOLOGIC EXAM KNEE COMPLETE 4/MORE VIEWS Gavi Norwood APRN.SOLE INKER [address] [place] [address] [place] [address] Referral ID Status Reason Start Date Expiration Date V isits Requested Visits Authorized [id number] Closed Auto-Generate d Referral 03/26/2023 04/24/2024 1 1 [facility] for referral (narrative)* Diagnostic Procedure Only (Routine) - Closed Specialty Diagnoses / Procedures Referred By Contac t Referred To Contact XR IMAGING Diagnoses Chronic bilateral low back pain with bilateral sciatica Procedures XR LUMBAR GENERAL 3V AP/LAT/L5-S1 RADEX SPINE LUMBOSACRAL 2/3 VIEWS Monik Hackett MD [address] [place] [address] [place] [address] Referral ID Status Reason Start Date Expiration Date V isits Requested Visits Authorized [id number] Closed Auto-Generate d Referral 02/22/2023 03/23/2024 1 1 [facility] for referral (narrative)* Medication Prior Authorization - Closed Specialty Diagnoses / Procedures Referred By Contac t Referred To Contact Lala Harrison APRN.SOLE INKER [address] [place] [address] Phone: tel: fax: Referral ID Status Reason Start Date Expiration Date Visits Re quested Visits Authorized [id number] Closed 1 1 [facility] for visit Narrative* Diagnostic Procedure Only (Routine) - Closed Specialty Diagnoses / Procedures Referred By Contac t Referred To Contact XR IMAGING Diagnoses Hammertoe of left foot Procedures XR FOOT GENERAL 3V AP/LAT/OBL LEFT RADEX FOOT COMPLETE MINIMUM 3 VIEWS Narendra Turner [address] [place] [id number] [place] [address] Referral ID Status Reason Start Date Expiration Date V isits Requested Visits Authorized [id number] Closed Auto-Generate d Referral 10/09/2022 11/08/2023 1 1 [facility] for visit Narrative* Diagnostic Procedure Only (Urgent) - Closed Specialty Diagnoses / Procedures Referred By Contac t Referred To Contact XR IMAGING Diagnoses Pain of right thumb Procedures XR DIGIT GENERAL 3V FRONTAL/LAT/OBL RIGHT RADEX FINGR MINIMUM 2 VIEWS Gavi Norwood, GENETICS PHYSICIAN.SOLE INKER [address] [place] [address] [place] [address] Referral ID Status Reason Start Date Expiration Date V isits Requested Visits Authorized [id number] Closed Auto-Generate d Referral 11/25/2023 12/24/2024 1 1 [facility] for visit Narrative* Diagnostic Procedure Only (Urgent) - Closed Specialty Diagnoses / Procedures Referred By Contac t Referred To Contact XR IMAGING Diagnoses Knee joint injury, initial encounter Procedures XR KNEE GENERAL 4V AP BOTH/PA BOTH/LAT/MERC BILATERAL RADIOLOGIC EXAM KNEE COMPLETE 4/MORE VIEWS Gavi Norwood, GENETICS PHYSICIAN.SOLE INKER [address] [place] [address] [place] [address] Referral ID Status Reason Start Date Expiration Date V isits Requested Visits Authorized [id number] Closed Auto-Generate d Referral 03/26/2023 04/24/2024 1 1 [facility] for visit Narrative* Diagnostic Procedure Only (Routine) - Closed Specialty Diagnoses / Procedures Referred By Contac t Referred To Contact XR IMAGING Diagnoses Chronic bilateral low back pain with bilateral sciatica Procedures XR LUMBAR GENERAL 3V AP/LAT/L5-S1 RADEX SPINE LUMBOSACRAL 2/3 VIEWS Monik Hackett MD [address] [place] [address] [place] [address] Referral ID Status Reason Start Date Expiration Date V isits Requested Visits Authorized [id number] Closed Auto-Generate d Referral 02/22/2023 03/23/2024 1 1 [facility] Summary Purpose Family History No Family History Records FoundNo Family History Records Found No data available for this section No data available for this section No Family History Records FoundNo Family History Records Found Advance Directives No Advanced Directives Records FoundNo Advanced Directives Records FoundNo Advanced Directives Records FoundNo Advanced Directives Records Found Reason for Referral Specialty Diagnoses / Procedures Referred By Contac t Referred To Contact Pain Management Diagnoses DDD (degenerative disc disease), lumbar Chronic bilateral low back pain with bilateral sciatica Narrowing of intervertebral disc space Procedures CONSULT TO PAIN MGT OFFICE/OUTPATIENT [facility] 60-74 MINUTES Monik Hackett MD [address] [place] [id number] Referral ID Status Reason Start Date Expiration Date Visits Requested Visits Authorized [id number] Authorized PCP Requested Referral 02/27/2023 02/27/2024 1 1 Specialty Diagnoses / Procedures Referred By Contac t Referred To Contact Orthopedics Diagnoses Knee joint injury, initial encounter Procedures CONSULT PANEL TO ORTHOPAEDICS OFFICE/OUTPATIENT [facility] 60-74 MINUTES Gavi Norwood, GENETICS PHYSICIAN.SOLE INKER [address] [place] [phone] Referral ID Status Reason Start Date Expiration Date Visits Requested Visits Authorized [id number] Authorized PCP Requested Referral 03/26/2023 03/25/2024 1 1 Specialty Diagnoses / Procedures Referred By Contac t Referred To Contact XR IMAGING Diagnoses Knee joint injury, initial encounter Procedures XR KNEE GENERAL 4V AP BOTH/PA BOTH/LAT/MERC BILATERAL RADIOLOGIC EXAM KNEE COMPLETE 4/MORE VIEWS Gavi Norwood, GENETICS PHYSICIAN.SOLE INKER [address] [place] [address] Xr Imaging Referral ID Status Reason Start Date Expiration Date V isits Requested Visits Authorized [id number] Closed Auto-Generate d Referral 03/26/2023 04/24/2024 1 1 Specialty Diagnoses / Procedures Referred By Contac t Referred To Contact Diagnoses Controlled type 2 diabetes mellitus without complication, with long-term current use of insulin (HCC) Monik Hackett MD [address] [place] [address] Referral ID Status Reason Start Date Expiration Date Visits Re quested Visits Authorized [id number] Closed 1 1 Specialty Diagnoses / Procedures Referred By Contac t Referred To Contact Monik Hackett MD [address] [place] [address] Referral ID Status Reason Start Date Expiration Date Visits Re quested Visits Authorized [id number] Closed 1 1 Specialty Diagnoses / Procedures Referred By Contac t Referred To Contact [facility] Diagnoses Benign paroxysmal vertigo of both ears Benign paroxysmal po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 Procedures PT REHAB FOLLOW UP ORDER THERAPEUTIC EXERCISES RE, EA 15 MIN. Pt [facility] [address] [place] [address] [facility] [address] [place] [address] Referral ID Status Reason Start Date Expiration Date Visits Requested Visits Authorized [id number] Pending Review PCP Requested Referral Auto-Generate d Referral 05/23/2023 08/21/2023 1 1 Referral ID Status Reason Start Date Expiration Date Visits Re quested Visits Authorized [id number] Closed 1 1 Specialty Diagnoses / Procedures Referred By Contac t Referred To Contact Rheumatology Diagnoses NANCY positive Procedures CONSULT TO RHEUM/IMMUN DISEASE OFFICE/OUTPATIENT [facility] 60-74 MINUTES Jaime Spencer, JENN.CRM SOLUTION ARCHITECT [address] [place] [address] Referral ID Status Reason Start Date Expiration Date Visits Requested Visits Authorized [id number] Authorized PCP Requested Referral 3 08/08/2024 1 1 Specialty Diagnoses / Procedures Referred By Contac t Referred To Contact Diagnoses Controlled type 2 diabetes mellitus without complication, with long-term current use of insulin (HCC) Procedures ENDOCRINOLOGY DIETITIAN VISIT (MNT) MEDICAL NUTRITION ASSMT&IVNTJ INDIV EACH 15 [place] MEDICAL NUTRITION ASSMT&IVNTJ INDIV EACH 15 [place]UTR[place] ASS[place]&IVNTJ INDIV EACH 15 [place] MEDICAL NUTRITION ASSMT&IVNTJ INDIV EACH 15 [place] Lala Harrison APRN.SOLE INKER [address] [place] [address] Referral ID Status Reason Start Date Expiration Date Visits Requested Visits Authorized [id number] Authorized PCP Requested Referral 05/06/2024 05/06/2025 1 1 Referral ID Status Reason Start Date Expiration Date Visits Re quested Visits Authorized [id number] Closed 1 1 Medications Administered Section Inactive Administered Medications - up to 3 most recent administrations Medication Order MAR Action Action Date Dose Rate Site keTORolac 60 mg injection (Toradol) 60 mg, INTRAMUSCULAR, ONCE, 1 dose, On Sat07/12/23 at 1130, Ketorolac (Toradol) is indicated for the short-term (up to 5 days) management of moderately severe acute pain. Continuation of ketorolac (Toradol) beyond 5 days increases the risk of developing serious adverse events. Please verify the duration of therapy for ketorolac (Toradol)., If ordered PRN for pain, patient/guardian may elect to receive this medication for higher pain levels INSTEAD of the opioid, if preferred: Yes Given 07/12/2023 11:58 AM EDT 60 mg Deltoid, Left Additional Source Comments INFORMATION SOURCE (unrecogn ized section and content) DATE CREATED AUTHOR 09/01/2020 [facility] ([place]) DATE CREATED AUTHOR AUTHOR'S ORGANIZ ATION 06/01/2023 [facility] DATE CREATED AUTHOR AUTHOR'S ORGANIZ ATION 10/07/2023 [facility] DATE CREATED AUTHOR AUTHOR'S ORGANIZ ATION 07/21/2025 [facility] Source Comments (unrecognize d section and content) In the event this informatio n is protected by the Federal Confidentiality of Alcohol and Drug Abuse Patient Records regulations: The Federal rules restrict any use of the information to criminally investigate or prosecute any alcohol or drug abuse patient.[facility] the event this information is protected by the Federal Confidentiality of Alcohol and Drug Abuse Patient Records regulations: The Federal rules restrict any use of the information to criminally investigate or prosecute any alcohol or drug abuse patient.[facility] the event this information is protected by the Federal Confidentiality of Alcohol and Drug Abuse Patient Records regulations: The Federal rules restrict any use of the information to criminally investigate or prosecute any alcohol or drug abuse patient.[facility] the event this information is protected by the Federal Confidentiality of Alcohol and Drug Abuse Patient Records regulations: The Federal rules restrict any use of the information to criminally investigate or prosecute any alcohol or drug abuse patient.[facility] the event this information is protected by the Federal Confidentiality of Alcohol and Drug Abuse Patient Records regulations: The Federal rules restrict any use of the information to criminally investigate or prosecute any alcohol or drug abuse patient.[facility] the event this information is protected by the Federal Confidentiality of Alcohol and Drug Abuse Patient Records regulations: The Federal rules restrict any use of the information to criminally investigate or prosecute any alcohol or drug abuse patient.[facility] the event this information is protected by the Federal Confidentiality of Alcohol and Drug Abuse Patient Records regulations: The Federal rules restrict any use of the information to criminally investigate or prosecute any alcohol or drug abuse patient.[facility] the event this information is protected by the Federal Confidentiality of Alcohol and Drug Abuse Patient Records regulations: The Federal rules restrict any use of the information to criminally investigate or prosecute any alcohol or drug abuse patient.[facility] the event this information is protected by the Federal Confidentiality of Alcohol and Drug Abuse Patient Records regulations: The Federal rules restrict any use of the information to criminally investigate or prosecute any alcohol or drug abuse patient.[facility] the event this information is protected by the Federal Confidentiality of Alcohol and Drug Abuse Patient Records regulations: The Federal rules restrict any use of the information to criminally investigate or prosecute any alcohol or drug abuse patient.[facility] Hospital[facility] the event this information is protected by the Federal Confidentiality of Alcohol and Drug Abuse Patient Records regulations: The Federal rules restrict any use of the information to criminally investigate or prosecute any alcohol or drug abuse patient.[facility] HospitalIn the event this information is protected by the Federal Confidentiality of Alcohol and Drug Abuse Patient Records regulations: The Federal rules restrict any use of the information to criminally investigate or prosecute any alcohol or drug abuse patient.[facility] Hospital[facility] the event this information is protected by the Federal Confidentiality of Alcohol and Drug Abuse Patient Records regulations: The Federal rules restrict any use of the information to criminally investigate or prosecute any alcohol or drug abuse patient.[facility] HospitalIn the event this information is protected by the Federal Confidentiality of Alcohol and Drug Abuse Patient Records regulations: The Federal rules restrict any use of the information to criminally investigate or prosecute any alcohol or drug abuse patient.[facility] HospitalIn the event this information is protected by the Federal Confidentiality of Alcohol and Drug Abuse Patient Records regulations: The Federal rules restrict any use of the information to criminally investigate or prosecute any alcohol or drug abuse patient.[facility] HospitalIn the event this information is protected by the Federal Confidentiality of Alcohol and Drug Abuse Patient Records regulations: The Federal rules restrict any use of the information to criminally investigate or prosecute any alcohol or drug abuse patient.[facility] HospitalIn the event this information is protected by the Federal Confidentiality of Alcohol and Drug Abuse Patient Records regulations: The Federal rules restrict any use of the information to criminally investigate or prosecute any alcohol or drug abuse patient.[facility] HospitalIn the event this information is protected by the Federal Confidentiality of Alcohol and Drug Abuse Patient Records regulations: The Federal rules restrict any use of the information to criminally investigate or prosecute any alcohol or drug abuse patient.[facility] HospitalIn the event this information is protected by the Federal Confidentiality of Alcohol and Drug Abuse Patient Records regulations: The Federal rules restrict any use of the information to criminally investigate or prosecute any alcohol or drug abuse patient.[facility] HospitalIn the event this information is protected by the Federal Confidentiality of Alcohol and Drug Abuse Patient Records regulations: The Federal rules restrict any use of the information to criminally investigate or prosecute any alcohol or drug abuse patient.[facility]In the event this information is protected by the Federal Confidentiality of Alcohol and Drug Abuse Patient Records regulations: The Federal rules restrict any use of the information to criminally investigate or prosecute any alcohol or drug abuse patient.[facility] HospitalIn the event this information is protected by the Federal Confidentiality of Alcohol and Drug Abuse Patient Records regulations: The Federal rules restrict any use of the information to criminally investigate or prosecute any alcohol or drug abuse patient.[facility] HospitalIn the event this information is protected by the Federal Confidentiality of Alcohol and Drug Abuse Patient Records regulations: The Federal rules restrict any use of the information to criminally investigate or prosecute any alcohol or drug abuse patient.[facility] HospitalIn the event this information is protected by the Federal Confidentiality of Alcohol and Drug Abuse Patient Records regulations: The Federal rules restrict any use of the information to criminally investigate or prosecute any alcohol or drug abuse patient.[facility] HospitalIn the event this information is protected by the Federal Confidentiality of Alcohol and Drug Abuse Patient Records regulations: The Federal rules restrict any use of the information to criminally investigate or prosecute any alcohol or drug abuse patient.[facility] HospitalIn the event this information is protected by the Federal Confidentiality of Alcohol and Drug Abuse Patient Records regulations: The Federal rules restrict any use of the information to criminally investigate or prosecute any alcohol or drug abuse patient.[facility] HospitalIn the event this information is protected by the Federal Confidentiality of Alcohol and Drug Abuse Patient Records regulations: The Federal rules restrict any use of the information to criminally investigate or prosecute any alcohol or drug abuse patient.[facility] HospitalIn the event this information is protected by the Federal Confidentiality of Alcohol and Drug Abuse Patient Records regulations: The Federal rules restrict any use of the information to criminally investigate or prosecute any alcohol or drug abuse patient.[facility] HospitalIn the event this information is protected by the Federal Confidentiality of Alcohol and Drug Abuse Patient Records regulations: The Federal rules restrict any use of the information to criminally investigate or prosecute any alcohol or drug abuse patient.[facility] HospitalIn the event this information is protected by the Federal Confidentiality of Alcohol and Drug Abuse Patient Records regulations: The Federal rules restrict any use of the information to criminally investigate or prosecute any alcohol or drug abuse patient.[facility] HospitalIn the event this information is protected by the Federal Confidentiality of Alcohol and Drug Abuse Patient Records regulations: The Federal rules restrict any use of the information to criminally investigate or prosecute any alcohol or drug abuse patient.[facility] HospitalIn the event this information is protected by the Federal Confidentiality of Alcohol and Drug Abuse Patient Records regulations: The Federal rules restrict any use of the information to criminally investigate or prosecute any alcohol or drug abuse patient.[facility] HospitalIn the event this information is protected by the Federal Confidentiality of Alcohol and Drug Abuse Patient Records regulations: The Federal rules restrict any use of the information to criminally investigate or prosecute any alcohol or drug abuse patient.[facility] HospitalIn the event this information is protected by the Federal Confidentiality of Alcohol and Drug Abuse Patient Records regulations: The Federal rules restrict any use of the information to criminally investigate or prosecute any alcohol or drug abuse patient.[facility] HospitalIn the event this information is protected by the Federal Confidentiality of Alcohol and Drug Abuse Patient Records regulations: The Federal rules restrict any use of the information to criminally investigate or prosecute any alcohol or drug abuse patient.[facility] HospitalIn the event this information is protected by the Federal Confidentiality of Alcohol and Drug Abuse Patient Records regulations: The Federal rules restrict any use of the information to criminally investigate or prosecute any alcohol or drug abuse patient.[facility] HospitalIn the event this information is protected by the Federal Confidentiality of Alcohol and Drug Abuse Patient Records regulations: The Federal rules restrict any use of the information to criminally investigate or prosecute any alcohol or drug abuse patient.[facility] HospitalIn the event this information is protected by the Federal Confidentiality of Alcohol and Drug Abuse Patient Records regulations: The Federal rules restrict any use of the information to criminally investigate or prosecute any alcohol or drug abuse patient.[facility] HospitalIn the event this information is protected by the Federal Confidentiality of Alcohol and Drug Abuse Patient Records regulations: The Federal rules restrict any use of the information to criminally investigate or prosecute any alcohol or drug abuse patient.[facility] HospitalIn the event this information is protected by the Federal Confidentiality of Alcohol and Drug Abuse Patient Records regulations: The Federal rules restrict any use of the information to criminally investigate or prosecute any alcohol or drug abuse patient.[facility] HospitalIn the event this information is protected by the Federal Confidentiality of Alcohol and Drug Abuse Patient Records regulations: The Federal rules restrict any use of the information to criminally investigate or prosecute any alcohol or drug abuse patient.[facility] HospitalIn the event this information is protected by the Federal Confidentiality of Alcohol and Drug Abuse Patient Records regulations: The Federal rules restrict any use of the information to criminally investigate or prosecute any alcohol or drug abuse patient.[facility] HospitalIn the event this information is protected by the Federal Confidentiality of Alcohol and Drug Abuse Patient Records regulations: The Federal rules restrict any use of the information to criminally investigate or prosecute any alcohol or drug abuse patient.[facility] HospitalIn the event this information is protected by the Federal Confidentiality of Alcohol and Drug Abuse Patient Records regulations: The Federal rules restrict any use of the information to criminally investigate or prosecute any alcohol or drug abuse patient.[facility] HospitalIn the event this information is protected by the Federal Confidentiality of Alcohol and Drug Abuse Patient Records regulations: The Federal rules restrict any use of the information to criminally investigate or prosecute any alcohol or drug abuse patient.[facility] HospitalIn the event this information is protected by the Federal Confidentiality of Alcohol and Drug Abuse Patient Records regulations: The Federal rules restrict any use of the information to criminally investigate or prosecute any alcohol or drug abuse patient.[facility] HospitalIn the event this information is protected by the Federal Confidentiality of Alcohol and Drug Abuse Patient Records regulations: The Federal rules restrict any use of the information to criminally investigate or prosecute any alcohol or drug abuse patient.[facility] HospitalIn the event this information is protected by the Federal Confidentiality of Alcohol and Drug Abuse Patient Records regulations: The Federal rules restrict any use of the information to criminally investigate or prosecute any alcohol or drug abuse patient.[facility] HospitalIn the event this information is protected by the Federal Confidentiality of Alcohol and Drug Abuse Patient Records regulations: The Federal rules restrict any use of the information to criminally investigate or prosecute any alcohol or drug abuse patient.[facility] HospitalIn the event this information is protected by the Federal Confidentiality of Alcohol and Drug Abuse Patient Records regulations: The Federal rules restrict any use of the information to criminally investigate or prosecute any alcohol or drug abuse patient.[facility] HospitalIn the event this information is protected by the Federal Confidentiality of Alcohol and Drug Abuse Patient Records regulations: The Federal rules restrict any use of the information to criminally investigate or prosecute any alcohol or drug abuse patient.[facility] HospitalIn the event this information is protected by the Federal Confidentiality of Alcohol and Drug Abuse Patient Records regulations: The Federal rules restrict any use of the information to criminally investigate or prosecute any alcohol or drug abuse patient.[facility] HospitalIn the event this information is protected by the Federal Confidentiality of Alcohol and Drug Abuse Patient Records regulations: The Federal rules restrict any use of the information to criminally investigate or prosecute any alcohol or drug abuse patient.[facility] HospitalIn the event this information is protected by the Federal Confidentiality of Alcohol and Drug Abuse Patient Records regulations: The Federal rules restrict any use of the information to criminally investigate or prosecute any alcohol or drug abuse patient.[facility] HospitalIn the event this information is protected by the Federal Confidentiality of Alcohol and Drug Abuse Patient Records regulations: The Federal rules restrict any use of the information to criminally investigate or prosecute any alcohol or drug abuse patient.[facility] HospitalIn the event this information is protected by the Federal Confidentiality of Alcohol and Drug Abuse Patient Records regulations: The Federal rules restrict any use of the information to criminally investigate or prosecute any alcohol or drug abuse patient.[facility] HospitalIn the event this information is protected by the Federal Confidentiality of Alcohol and Drug Abuse Patient Records regulations: The Federal rules restrict any use of the information to criminally investigate or prosecute any alcohol or drug abuse patient.[facility] HospitalIn the event this information is protected by the Federal Confidentiality of Alcohol and Drug Abuse Patient Records regulations: The Federal rules restrict any use of the information to criminally investigate or prosecute any alcohol or drug abuse patient.[facility] HospitalIn the event this information is protected by the Federal Confidentiality of Alcohol and Drug Abuse Patient Records regulations: The Federal rules restrict any use of the information to criminally investigate or prosecute any alcohol or drug abuse patient.[facility] HospitalIn the event this information is protected by the Federal Confidentiality of Alcohol and Drug Abuse Patient Records regulations: The Federal rules restrict any use of the information to criminally investigate or prosecute any alcohol or drug abuse patient.[facility] HospitalIn the event this information is protected by the Federal Confidentiality of Alcohol and Drug Abuse Patient Records regulations: The Federal rules restrict any use of the information to criminally investigate or prosecute any alcohol or drug abuse patient.[facility] HospitalIn the event this information is protected by the Federal Confidentiality of Alcohol and Drug Abuse Patient Records regulations: The Federal rules restrict any use of the information to criminally investigate or prosecute any alcohol or drug abuse patient.[facility] HospitalIn the event this information is protected by the Federal Confidentiality of Alcohol and Drug Abuse Patient Records regulations: The Federal rules restrict any use of the information to criminally investigate or prosecute any alcohol or drug abuse patient.[facility] HospitalIn the event this information is protected by the Federal Confidentiality of Alcohol and Drug Abuse Patient Records regulations: The Federal rules restrict any use of the information to criminally investigate or prosecute any alcohol or drug abuse patient.[facility] HospitalIn the event this information is protected by the Federal Confidentiality of Alcohol and Drug Abuse Patient Records regulations: The Federal rules restrict any use of the information to criminally investigate or prosecute any alcohol or drug abuse patient.[facility] HospitalIn the event this information is protected by the Federal Confidentiality of Alcohol and Drug Abuse Patient Records regulations: The Federal rules restrict any use of the information to criminally investigate or prosecute any alcohol or drug abuse patient.[facility] HospitalIn the event this information is protected by the Federal Confidentiality of Alcohol and Drug Abuse Patient Records regulations: The Federal rules restrict any use of the information to criminally investigate or prosecute any alcohol or drug abuse patient.[facility] HospitalIn the event this information is protected by the Federal Confidentiality of Alcohol and Drug Abuse Patient Records regulations: The Federal rules restrict any use of the information to criminally investigate or prosecute any alcohol or drug abuse patient.[facility] HospitalIn the event this information is protected by the Federal Confidentiality of Alcohol and Drug Abuse Patient Records regulations: The Federal rules restrict any use of the information to criminally investigate or prosecute any alcohol or drug abuse patient.[facility] HospitalIn the event this information is protected by the Federal Confidentiality of Alcohol and Drug Abuse Patient Records regulations: The Federal rules restrict any use of the information to criminally investigate or prosecute any alcohol or drug abuse patient.[facility] HospitalIn the event this information is protected by the Federal Confidentiality of Alcohol and Drug Abuse Patient Records regulations: The Federal rules restrict any use of the information to criminally investigate or prosecute any alcohol or drug abuse patient.[facility] HospitalIn the event this information is protected by the Federal Confidentiality of Alcohol and Drug Abuse Patient Records regulations: The Federal rules restrict any use of the information to criminally investigate or prosecute any alcohol or drug abuse patient.[facility] HospitalIn the event this information is protected by the Federal Confidentiality of Alcohol and Drug Abuse Patient Records regulations: The Federal rules restrict any use of the information to criminally investigate or prosecute any alcohol or drug abuse patient.[facility] HospitalIn the event this information is protected by the Federal Confidentiality of Alcohol and Drug Abuse Patient Records regulations: The Federal rules restrict any use of the information to criminally investigate or prosecute any alcohol or drug abuse patient.[facility] HospitalIn the event this information is protected by the Federal Confidentiality of Alcohol and Drug Abuse Patient Records regulations: The Federal rules restrict any use of the information to criminally investigate or prosecute any alcohol or drug abuse patient.[facility] HospitalIn the event this information is protected by the Federal Confidentiality of Alcohol and Drug Abuse Patient Records regulations: The Federal rules restrict any use of the information to criminally investigate or prosecute any alcohol or drug abuse patient.[facility] HospitalIn the event this information is protected by the Federal Confidentiality of Alcohol and Drug Abuse Patient Records regulations: The Federal rules restrict any use of the information to criminally investigate or prosecute any alcohol or drug abuse patient.[facility] HospitalIn the event this information is protected by the Federal Confidentiality of Alcohol and Drug Abuse Patient Records regulations: The Federal rules restrict any use of the information to criminally investigate or prosecute any alcohol or drug abuse patient.[facility] HospitalIn the event this information is protected by the Federal Confidentiality of Alcohol and Drug Abuse Patient Records regulations: The Federal rules restrict any use of the information to criminally investigate or prosecute any alcohol or drug abuse patient.[facility] HospitalIn the event this information is protected by the Federal Confidentiality of Alcohol and Drug Abuse Patient Records regulations: The Federal rules restrict any use of the information to criminally investigate or prosecute any alcohol or drug abuse patient.[facility] HospitalIn the event this information is protected by the Federal Confidentiality of Alcohol and Drug Abuse Patient Records regulations: The Federal rules restrict any use of the information to criminally investigate or prosecute any alcohol or drug abuse patient.[facility] HospitalIn the event this information is protected by the Federal Confidentiality of Alcohol and Drug Abuse Patient Records regulations: The Federal rules restrict any use of the information to criminally investigate or prosecute any alcohol or drug abuse patient.[facility] HospitalIn the event this information is protected by the Federal Confidentiality of Alcohol and Drug Abuse Patient Records regulations: The Federal rules restrict any use of the information to criminally investigate or prosecute any alcohol or drug abuse patient.[facility] HospitalIn the event this information is protected by the Federal Confidentiality of Alcohol and Drug Abuse Patient Records regulations: The Federal rules restrict any use of the information to criminally investigate or prosecute any alcohol or drug abuse patient.[facility] HospitalIn the event this information is protected by the Federal Confidentiality of Alcohol and Drug Abuse Patient Records regulations: The Federal rules restrict any use of the information to criminally investigate or prosecute any alcohol or drug abuse patient.[facility] HospitalIn the event this information is protected by the Federal Confidentiality of Alcohol and Drug Abuse Patient Records regulations: The Federal rules restrict any use of the information to criminally investigate or prosecute any alcohol or drug abuse patient.[facility] HospitalIn the event this information is protected by the Federal Confidentiality of Alcohol and Drug Abuse Patient Records regulations: The Federal rules restrict any use of the information to criminally investigate or prosecute any alcohol or drug abuse patient.[facility] HospitalIn the event this information is protected by the Federal Confidentiality of Alcohol and Drug Abuse Patient Records regulations: The Federal rules restrict any use of the information to criminally investigate or prosecute any alcohol or drug abuse patient.[facility] HospitalIn the event this information is protected by the Federal Confidentiality of Alcohol and Drug Abuse Patient Records regulations: The Federal rules restrict any use of the information to criminally investigate or prosecute any alcohol or drug abuse patient.[facility] HospitalIn the event this information is protected by the Federal Confidentiality of Alcohol and Drug Abuse Patient Records regulations: The Federal rules restrict any use of the information to criminally investigate or prosecute any alcohol or drug abuse patient.[facility] HospitalIn the event this information is protected by the Federal Confidentiality of Alcohol and Drug Abuse Patient Records regulations: The Federal rules restrict any use of the information to criminally investigate or prosecute any alcohol or drug abuse patient.[facility] HospitalIn the event this information is protected by the Federal Confidentiality of Alcohol and Drug Abuse Patient Records regulations: The Federal rules restrict any use of the information to criminally investigate or prosecute any alcohol or drug abuse patient.[facility] HospitalIn the event this information is protected by the Federal Confidentiality of Alcohol and Drug Abuse Patient Records regulations: The Federal rules restrict any use of the information to criminally investigate or prosecute any alcohol or drug abuse patient.[facility] HospitalIn the event this information is protected by the Federal Confidentiality of Alcohol and Drug Abuse Patient Records regulations: The Federal rules restrict any use of the information to criminally investigate or prosecute any alcohol or drug abuse patient.[facility]In the event this information is protected by the Federal Confidentiality of Alcohol and Drug Abuse Patient Records regulations: The Federal rules restrict any use of the information to criminally investigate or prosecute any alcohol or drug abuse patient.[facility] HospitalIn the event this information is protected by the Federal Confidentiality of Alcohol and Drug Abuse Patient Records regulations: The Federal rules restrict any use of the information to criminally investigate or prosecute any alcohol or drug abuse patient.[facility] HospitalIn the event this information is protected by the Federal Confidentiality of Alcohol and Drug Abuse Patient Records regulations: The Federal rules restrict any use of the information to criminally investigate or prosecute any alcohol or drug abuse patient.[facility] HospitalIn the event this information is protected by the Federal Confidentiality of Alcohol and Drug Abuse Patient Records regulations: The Federal rules restrict any use of the information to criminally investigate or prosecute any alcohol or drug abuse patient.[facility]In the event this information is protected by the Federal Confidentiality of Alcohol and Drug Abuse Patient Records regulations: The Federal rules restrict any use of the information to criminally investigate or prosecute any alcohol or drug abuse patient.[facility] HospitalIn the event this information is protected by the Federal Confidentiality of Alcohol and Drug Abuse Patient Records regulations: The Federal rules restrict any use of the information to criminally investigate or prosecute any alcohol or drug abuse patient.[facility] HospitalIn the event this information is protected by the Federal Confidentiality of Alcohol and Drug Abuse Patient Records regulations: The Federal rules restrict any use of the information to criminally investigate or prosecute any alcohol or drug abuse patient.[facility] HospitalIn the event this information is protected by the Federal Confidentiality of Alcohol and Drug Abuse Patient Records regulations: The Federal rules restrict any use of the information to criminally investigate or prosecute any alcohol or drug abuse patient.[facility] HospitalIn the event this information is protected by the Federal Confidentiality of Alcohol and Drug Abuse Patient Records regulations: The Federal rules restrict any use of the information to criminally investigate or prosecute any alcohol or drug abuse patient.[facility] HospitalIn the event this information is protected by the Federal Confidentiality of Alcohol and Drug Abuse Patient Records regulations: The Federal rules restrict any use of the information to criminally investigate or prosecute any alcohol or drug abuse patient.[facility] HospitalIn the event this information is protected by the Federal Confidentiality of Alcohol and Drug Abuse Patient Records regulations: The Federal rules restrict any use of the information to criminally investigate or prosecute any alcohol or drug abuse patient.[facility] HospitalIn the event this information is protected by the Federal Confidentiality of Alcohol and Drug Abuse Patient Records regulations: The Federal rules restrict any use of the information to criminally investigate or prosecute any alcohol or drug abuse patient.[facility] HospitalIn the event this information is protected by the Federal Confidentiality of Alcohol and Drug Abuse Patient Records regulations: The Federal rules restrict any use of the information to criminally investigate or prosecute any alcohol or drug abuse patient.[facility] HospitalIn the event this information is protected by the Federal Confidentiality of Alcohol and Drug Abuse Patient Records regulations: The Federal rules restrict any use of the information to criminally investigate or prosecute any alcohol or drug abuse patient.[facility] HospitalIn the event this information is protected by the Federal Confidentiality of Alcohol and Drug Abuse Patient Records regulations: The Federal rules restrict any use of the information to criminally investigate or prosecute any alcohol or drug abuse patient.[facility] HospitalIn the event this information is protected by the Federal Confidentiality of Alcohol and Drug Abuse Patient Records regulations: The Federal rules restrict any use of the information to criminally investigate or prosecute any alcohol or drug abuse patient.[facility] HospitalIn the event this information is protected by the Federal Confidentiality of Alcohol and Drug Abuse Patient Records regulations: The Federal rules restrict any use of the information to criminally investigate or prosecute any alcohol or drug abuse patient.[facility] HospitalIn the event this information is protected by the Federal Confidentiality of Alcohol and Drug Abuse Patient Records regulations: The Federal rules restrict any use of the information to criminally investigate or prosecute any alcohol or drug abuse patient.[facility] HospitalIn the event this information is protected by the Federal Confidentiality of Alcohol and Drug Abuse Patient Records regulations: The Federal rules restrict any use of the information to criminally investigate or prosecute any alcohol or drug abuse patient.[facility] HospitalIn the event this information is protected by the Federal Confidentiality of Alcohol and Drug Abuse Patient Records regulations: The Federal rules restrict any use of the information to criminally investigate or prosecute any alcohol or drug abuse patient.[facility] HospitalIn the event this information is protected by the Federal Confidentiality of Alcohol and Drug Abuse Patient Records regulations: The Federal rules restrict any use of the information to criminally investigate or prosecute any alcohol or drug abuse patient.[facility] HospitalIn the event this information is protected by the Federal Confidentiality of Alcohol and Drug Abuse Patient Records regulations: The Federal rules restrict any use of the information to criminally investigate or prosecute any alcohol or drug abuse patient.[facility] HospitalIn the event this information is protected by the Federal Confidentiality of Alcohol and Drug Abuse Patient Records regulations: The Federal rules restrict any use of the information to criminally investigate or prosecute any alcohol or drug abuse patient.[facility] HospitalIn the event this information is protected by the Federal Confidentiality of Alcohol and Drug Abuse Patient Records regulations: The Federal rules restrict any use of the information to criminally investigate or prosecute any alcohol or drug abuse patient.[facility] Reason for Visit (unrecogniz ed section and content) Reason Onset Date Comments Refill Request 02/09/2022 Reason Comments Refill Request Reason Onset Date Comments Refill Request 05/14/2022 Reason Comments Infection bilateral feet [place] infection Reason Comments Recheck med reevaluation Reason Onset Date Comments Refill Request 07/03/2022 Reason Onset Date Comments Refill Request 08/20/2022 Reason Onset Date Comments Refill Request 09/24/2022 Reason Onset Date Comments Refill Request 11/12/2022 Reason Onset Date Comments Refill Request 11/26/2022 Reason Onset Date Comments Refill Request 01/01/2023 Reason Comments Follow Up insulin and metformi n and refill Reason Comments Appointment Reason Onset Date Comments Refill Request 01/30/2023 Reason Comments Xray Results Reason Comments Knee Injury left knee worse afte r fall x 1 week Reason Comments Diabetes Reason Onset Date Comments Refill Request 04/11/2023 Reason Comments Med Change Request Reason Comments PT Eval Specialty Diagnoses / Procedures Referred By Contac t Referred To Contact Physical Therapy / PHYSICAL THERAPY Diagnoses 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] Procedures PHYSICAL THERAPY EVALUATION HIGH COMPLEX 45 MINS NEW RS PT BPPV Monik Hackett MD [address] [place] [address] [place]aitlyn [place]én[place], [place] [address] [place] [address] Referral ID Status Reason Start Date Expiration Date Visits Re quested Visits Authorized [id number] Closed 02/22/2023 10/27/2023 1 1 Reason Comments Insurance Authorization Reason Onset Date Comments Refill Request 06/11/2023 Reason Comments ED Follow-up [facility] 06/29/23 Reason Comments Refill Request New blood sugar mete r/supplies Reason Comments Follow Up Reason Comments Medication Problem Reason Onset Date Comments Refill Request 08/21/2023 Reason Comments Missed Appointment Reason Onset Date Comments Refill Request 10/01/2023 Reason Onset Date Comments Refill Request 10/03/2023 Reason Comments DME for oxygen Reason Comments Spirometry Specialty Diagnoses / Procedures Referred By Contac t [facility] Diagnoses Shortness of breath Procedures LUNG VOLUMES Yasmine Martinez, GENETICS PHYSICIAN.[employer]LE INKER [address] [place] [address] [facility] [place] [address] [place] [address] Referral ID Status Reason Start Date Expiration Date V isits Requested Visits Authorized [id number] Closed Auto-Generate d Referral 11/06/2023 10/27/2024 1 1 Specialty Diagnoses / Procedures Referred By Contac t Referred [facility] Diagnoses Shortness of breath Procedures SPIROMETRY - BASELINE AND POST DILATOR BRNCDILAT RSPSE SPMTRY PRE&POST-BRNCDILAT ADMN Yasmine Martinez, GENETICS PHYSICIAN.[employer]LE INKER [address] [place] [address] [facility] [address] [place] [address] Referral ID Status Reason Start Date Expiration Date V isits Requested Visits Authorized [id number] Closed Auto-Generate d Referral 11/06/2023 10/27/2024 1 1 Specialty Diagnoses / Procedures Referred By Contac t Referred [facility] Diagnoses Hypoxia Shortness of breath Procedures OXIMETRY WITH AMBULATION NONINVASIVE EAR/PULSE OXIMETRY MULTIPLE DETER Yasmine Martinez, GENETICS PHYSICIAN.[employer] [address] [place] [address] [facility] [address] [place] [address] Referral ID Status Reason Start Date Expiration Date V isits Requested Visits Authorized [id number] Closed Auto-Generate d Referral 12/03/2023 01/01/2025 1 1 Specialty Diagnoses / Procedures Referred By Contac t Referred To Contact [facility] Diagnoses Shortness of breath Procedures LUNG DIFFUSION CAPACITY (DLCO) DIFFUSING CAPACITY Yasmine Martinez, GENETICS PHYSICIAN.[employer]LE INKER [address] [place] [address] [address] Referral ID Status Reason Start Date Expiration Date V isits Requested Visits Authorized [id number] Closed Auto-Generate d Referral 11/06/2023 10/27/2024 1 1 Reason Onset Date Comments Refill Request 12/07/2023 Reason Onset Date Comments Refill Request 12/10/2023 Reason Comments Results Reason Onset Date Comments Refill Request 01/06/2024 Reason Onset Date Comments Refill Request 01/07/2024 Reason Onset Date Comments Refill Request 01/24/2024 Reason Onset Date Comments Refill Request 02/06/2024 Reason Onset Date Comments Refill Request 02/13/2024 Reason Comments Orders Reason Comments excessive sweating hysterectomy 1996 Chest Pain under L arm to cente r of chest. Dull pain now. Sharp pain when left house. Reason Comments Insurance Authorization [facility] Reason Onset Date Comments Refill Request 04/08/2024 Reason Onset Date Comments Refill Request 08/13/2023 Reason Onset Date Comments Refill Request 04/27/2024 Specialty Diagnoses / Procedures Referred By Contac t Referred To Contact [facility] Diagnoses SOB (shortness of breath) Procedures NITRIC OXIDE, EXHALED NITRIC OXIDE GAS DETERMINATION Camila Johns MD [address] [place] [address] [facility] [address] [place] [id number] Referral ID Status Reason Start Date Expiration Date V isits Requested Visits Authorized [id number] Closed Auto-Generate d Referral 01/24/2024 02/22/2025 1 1 Reason Comments Established Patient 3 month follow up as thma Reason Comments Recheck 6 month follow up Reason Comments Procedure Reason Onset Date Comments Refill Request 06/01/2024 Reason Onset Date Comments Refill Request 06/11/2024 Reason Onset Date Comments Refill Request 06/26/2024 Reason Onset Date Comments Refill Request 08/11/2024 Reason Onset Date Comments Refill Request 08/20/2024 Reason Onset Date Comments Refill Request 11/03/2024 Lab Orders 11/03/2024 Reason Comments F/U 6 Month Reason Comments Patient Update Reason Onset Date Comments Refill Request 12/07/2024 Reason Onset Date Comments Refill Request 01/04/2025 Medication Problem 01/04/2025 Reason Onset Date Comments Refill Request 01/04/2025 Reason Onset Date Comments Refill Request 01/20/2025 Reason Onset Date Comments Refill Request 02/08/2025 Reason Onset Date Comments Refill Request 02/23/2025 Reason Comments Order Request Reason Onset Date Comments Refill Request 03/24/2025 transfer to new pharmacy since [facility] closing 03/24/2025 Reason Comments Refill Request Reason Comments Recheck Follow up multiple c oncerns Reason Onset Date Comments Refill Request 04/26/2025 Reason Onset Date Comments Refill Request 05/18/2025 Care Teams (unrecognized sec tion and content) Cilnical Scientist Relationship Specialty Start Date End Date Monik Hackett MD [address] [facility] [place] [address] PCP - General Internal Medicine 07/19/20 [facility] [address] [place] [address] Pharmacist Pharmacy 12/26/20 Cilnical Scientist Relationship Specialty Start Date End Date Monik Hackett MD [address] [place] [address] PCP - General Internal Medicine 07/19/20 [facility] [address] [place] [address] Pharmacist Pharmacy 12/26/20 Cilnical Scientist Relationship Specialty Start Date End Date Monik Hackett MD [address] [place] [address] PCP - General Internal Medicine 07/19/20 DubJess [facility] [address] [place] [address] Pharmacist Pharmacy 12/26/20 Cilnical Scientist Relationship Specialty Start Date End Date Monik Hackett MD [address] [place] [address] PCP - General Internal Medicine 07/19/20 JagjitTamy [facility] [address] [place] [address] Pharmacist Pharmacy 12/26/20 Cilnical Scientist Relationship Specialty Start Date End Date Monik Hackett MD [address] [place] [address] PCP - General Internal Medicine 07/19/20 [facility] [address] [place] [address] Pharmacist Pharmacy 12/26/20 Cilnical Scientist Relationship Specialty Start Date End Date Monik Hackett MD [address] [place] [address] PCP - General Internal Medicine 07/19/20 Jag[facility]Tamy [facility] [address] [place] [address] Pharmacist Pharmacy 12/26/20 Cilnical Scientist Relationship Specialty Start Date End Date Monik Hackett MD [address] [place] [address] PCP - General Internal Medicine 07/19/20 [facility] [address] [place] [address] Pharmacist Pharmacy 12/26/20 Cilnical Scientist Relationship Specialty Start Date End Date Monik Hackett MD [address] [place] [address] PCP - General Internal Medicine 07/19/20 Jess Perry, [facility] [address] [place] [address] Pharmacist Pharmacy 12/26/20 Cilnical Scientist Relationship Specialty Start Date End Date Monik Hackett MD [address] [place] [address] PCP - General Internal Medicine 07/19/20 Jess Perry, [facility] [address] [place] [address] Pharmacist Pharmacy 12/26/20 Cilnical Scientist Relationship Specialty Start Date End Date Monik Hackett MD [address] [place] [address] PCP - General Internal Medicine 07/19/20 [facility] [address] [place] [address] Pharmacist Pharmacy 12/26/20 Cilnical Scientist Relationship Specialty Start Date End Date Monik Hackett MD [address] [place] [address] PCP - General Internal Medicine 07/19/20 Jess Perry, [facility] [address] [place] [address] Pharmacist Pharmacy 12/26/20 Cilnical Scientist Relationship Specialty Start Date End Date Monik Hackett MD [address] [place] [address] PCP - General Internal Medicine 07/19/20 Jess Perry, [facility] [address] [place] [address] Pharmacist Pharmacy 12/26/20 Cilnical Scientist Relationship Specialty Start Date End Date Monik Hackett MD [address] [place] [address] PCP - General Internal Medicine 07/19/20 Jess Perry, [facility] [address] [place] [address] Pharmacist Pharmacy 12/26/20 Cilnical Scientist Relationship Specialty Start Date End Date Monik Hackett MD [address] [place] [address] PCP - General Internal Medicine 07/19/20 Jess Perry, [facility] [address] [place] [address] Pharmacist Pharmacy 12/26/20 Cilnical Scientist Relationship Specialty Start Date End Date Monik Hackett MD [address] [place] [address] PCP - General Internal Medicine 07/19/20 [facility] [address] [place] [address] Pharmacist Pharmacy 12/26/20 Cilnical Scientist Relationship Specialty Start Date End Date Monik Hackett MD [address] [place] [address] PCP - General Internal Medicine 07/19/20 Jess Perry, [facility] [address] [place] [address] Pharmacist Pharmacy 12/26/20 Cilnical Scientist Relationship Specialty Start Date End Date Monik Hackett MD [address] [place] [address] PCP - General Internal Medicine 07/19/20 Jess Perry, [facility] [address] [place] [address] Pharmacist Pharmacy 12/26/20 Cilnical Scientist Relationship Specialty Start Date End Date Monik Hackett MD [address] [place] [address] PCP - General Internal Medicine 07/19/20 [place] [address] [place] [address] Pharmacist Pharmacy 04/11/23 Cilnical Scientist Relationship Specialty Start Date End Date Monik Hackett MD [address] [place] [address] PCP - General Internal Medicine 07/19/20 [place] [address] [place] [address] Pharmacist Pharmacy 04/11/23 Cilnical Scientist Relationship Specialty Start Date End Date Monik Hackett MD [address] [place] [address] PCP - General Internal Medicine 07/19/20 [place] [address] [place] [address] Pharmacist Pharmacy 04/11/23 Cilnical Scientist Relationship Specialty Start Date End Date Monik Hackett MD [address] [place] [address] PCP - General Internal Medicine 07/19/20 [place] [address] [place] [address] Pharmacist Pharmacy 04/11/23 Cilnical Scientist Relationship Specialty Start Date End Date Monik Hackett MD [address] [place] [address] PCP - General Internal Medicine 07/19/20 [place] [address] [place] [address] Pharmacist Pharmacy 04/11/23 Cilnical Scientist Relationship Specialty Start Date End Date Monik Hackett MD [address] [facility] [address] PCP - General Internal Medicine 07/19/20 [place] [address] [place] [address] Pharmacist Pharmacy 04/11/23 Cilnical Scientist Relationship Specialty Start Date End Date Monik Hackett MD [address] [place] [address] PCP - General Internal Medicine 07/19/20 [place] [address] [place] [address] Pharmacist Pharmacy 04/11/23 Cilnical Scientist Relationship Specialty Start Date End Date Monik Hackett MD [address] [place] [address] PCP - General Internal Medicine 07/19/20 [place] [address] [place] [address] Pharmacist Pharmacy 04/11/23 Cilnical Scientist Relationship Specialty Start Date End Date Monik Hackett MD [address] [place] [address] PCP - General Internal Medicine 07/19/20 [place] [address] [place] [address] Pharmacist Pharmacy 04/11/23 Cilnical Scientist Relationship Specialty Start Date End Date Monik Hackett MD [address] [place] [address] PCP - General Internal Medicine 07/19/20 [place] [address] [place] [address] Pharmacist Pharmacy 04/11/23 Cilnical Scientist Relationship Specialty Start Date End Date Monik Hackett MD [address] [place] [address] PCP - General Internal Medicine 07/19/20 [place] [address] [place] [address] Pharmacist Pharmacy 04/11/23 Cilnical Scientist Relationship Specialty Start Date End Date Monik Hackett MD [address] [place] [address] PCP - General Internal Medicine 07/19/20 [place] [address] [place] [address] Pharmacist Pharmacy 04/11/23 Cilnical Scientist Relationship Specialty Start Date End Date Monik Hackett MD [address] [place] [address] PCP - General Internal Medicine 07/19/20 [place] [address] [place] [address] Pharmacist Pharmacy 04/11/23 Cilnical Scientist Relationship Specialty Start Date End Date Monik Hackett MD [address] [place] [address] PCP - General Internal Medicine 07/19/20 [place] [address] [place] [address] Pharmacist Pharmacy 04/11/23 Cilnical Scientist Relationship Specialty Start Date End Date Monik Hackett MD [address] [place] [address] PCP - General Internal Medicine 07/19/20 [place] [address] [place] [address] Pharmacist Pharmacy 04/11/23 Cilnical Scientist Relationship Specialty Start Date End Date Monik Hackett MD [address] [place] [address] PCP - General Internal Medicine 07/19/20 [place] [address] [place] [address] Pharmacist Pharmacy 04/11/23 Cilnical Scientist Relationship Specialty Start Date End Date Monik Hackett MD [address] [place] [address] PCP - General Internal Medicine 07/19/20 [facility] [address] [place] [address] Pharmacist Pharmacy 12/26/20 04/10/23 Cilnical Scientist Relationship Specialty Start Date End Date Monik Hackett MD [address] [place] [address] PCP - General Internal Medicine 07/19/20 [place] [address] [place] [address] Pharmacist Pharmacy 04/11/23 Cilnical Scientist Relationship Specialty Start Date End Date Monik Hackett MD [address] [place] [address] PCP - General Internal Medicine 07/19/20 [place] [address] [place] [address] Pharmacist Pharmacy 04/11/23 Cilnical Scientist Relationship Specialty Start Date End Date Monik Hackett MD [address] [place] [address] PCP - General Internal Medicine 07/19/20 [place] [address] [place] [address] Pharmacist Pharmacy 04/11/23 Cilnical Scientist Relationship Specialty Start Date End Date Monik Hackett MD [address] [place] [address] PCP - General Internal Medicine 07/19/20 [place] [address] [place] [address] Pharmacist Pharmacy 04/11/23 Cilnical Scientist Relationship Specialty Start Date End Date Monik Hackett MD [address] [place] [address] PCP - General Internal Medicine 07/19/20 [place] [address] [place] [address] Pharmacist Pharmacy 04/11/23 Cilnical Scientist Relationship Specialty Start Date End Date Monik Hackett MD [address] [place] [address] PCP - General Internal Medicine 07/19/20 [place] [address] [place] [address] Pharmacist Pharmacy 04/11/23 Cilnical Scientist Relationship Specialty Start Date End Date Monik Hackett MD [address] [place] [address] PCP - General Internal Medicine 07/19/20 [place] [address] [place] [address] Pharmacist Pharmacy 04/11/23 Cilnical Scientist Relationship Specialty Start Date End Date Monik Hackett MD [address] [place] [address] PCP - General Internal Medicine 07/19/20 [place] [address] [place] [address] Pharmacist Pharmacy 04/11/23 Cilnical Scientist Relationship Specialty Start Date End Date Monik Hackett MD [address] [place] [address] PCP - General Internal Medicine 07/19/20 [place] [address] [place] [address] Pharmacist Pharmacy 04/11/23 Cilnical Scientist Relationship Specialty Start Date End Date Monik Hackett MD [address] [place] [address] PCP - General Internal Medicine 07/19/20 [place] [address] [place] [address] Pharmacist Pharmacy 04/11/23 Cilnical Scientist Relationship Specialty Start Date End Date Monik Hackett MD [address] [place] [address] PCP - General Internal Medicine 07/19/20 [place] [address] [place] [address] Pharmacist Pharmacy 04/11/23 Cilnical Scientist Relationship Specialty Start Date End Date Monik Hackett MD [address] [place] [address] PCP - General Internal Medicine 07/19/20 [place] [address] [place] [address] Pharmacist Pharmacy 04/11/23 Cilnical Scientist Relationship Specialty Start Date End Date Monik Hackett MD [address] [place] [address] PCP - General Internal Medicine 07/19/20 [place] [address] [place] [address] Pharmacist Pharmacy 04/11/23 Cilnical Scientist Relationship Specialty Start Date End Date Monik Hackett MD [address] [place] [address] PCP - General Internal Medicine 07/19/20 [place] [address] [place] [address] Pharmacist Pharmacy 04/11/23 Cilnical Scientist Relationship Specialty Start Date End Date Monik Hackett MD [address] [place] [address] PCP - General Internal Medicine 07/19/20 [place] [address] [place] [address] Pharmacist Pharmacy 04/11/23 Cilnical Scientist Relationship Specialty Start Date End Date Monik Hackett MD [address] [place] [address] PCP - General Internal Medicine 07/19/20 [place] [address] [place] [address] Pharmacist Pharmacy 04/11/23 Cilnical Scientist Relationship Specialty Start Date End Date Monik Hackett MD [address] [place] [address] PCP - General Internal Medicine 07/19/20 [place] [address] [place] [address] Pharmacist Pharmacy 04/11/23 Cilnical Scientist Relationship Specialty Start Date End Date Monik Hackett MD [address] [place] [address] PCP - General Internal Medicine 07/19/20 [place] [address] [place] [address] Pharmacist Pharmacy 04/11/23 Cilnical Scientist Relationship Specialty Start Date End Date Monik Hackett MD [address] [place] [address] PCP - General Internal Medicine 07/19/20 [place] [address] [place] [address] Pharmacist Pharmacy 04/11/23 Cilnical Scientist Relationship Specialty Start Date End Date Monik Hackett MD [address] [place] [address] PCP - General Internal Medicine 07/19/20 [place] [address] [place] [address] Pharmacist Pharmacy 04/11/23 Cilnical Scientist Relationship Specialty Start Date End Date Monik Hackett MD [address] [place] [address] PCP - General Internal Medicine 07/19/20 [facility] [address] [place] [address] Pharmacist Pharmacy 12/26/20 04/10/23 Cilnical Scientist Relationship Specialty Start Date End Date Monik Hackett MD [address] [place] [address] PCP - General Internal Medicine 07/19/20 [facility] [address] [place] [address] Pharmacist Pharmacy 12/26/20 04/10/23 Cilnical Scientist Relationship Specialty Start Date End Date Monik Hackett MD [address] [place] [address] PCP - General Internal Medicine 07/19/20 [place], [place] [address] [place] [address] Pharmacist Pharmacy 04/11/23 Kelsi Alfred PA-C [address] [place] [address] Rental Representative Family Medicine 10/04/24 Lala Harrison APRN.SOLE INKER [address] [place] [address] Rental Representative Internal Medicine 10/04/24 Liliana Espinoza PA-C [address] [place] [address] Rental Representative Family Medicine 10/04/24 Cilnical Scientist Relationship Specialty Start Date End Date Monik Hackett MD [address] [place] [address] PCP - General Internal Medicine 07/19/20 Fior Joseph, [facility] [address] [place] [phone] Pharmacist Pharmacy 04/11/23 Kelsi Alfred PA-C [address] [place] [address] Rental Representative Family Medicine 10/04/24 Lala Harrison APRN.SOLE INKER [address] [place] [address] Rental Representative Internal Medicine 10/04/24 Liliana Espinoza PA-C [address] [place] [address] Rental Representative Family Medicine 10/04/24 Cilnical Scientist Relationship Specialty Start Date End Date Monik Hackett MD [address] [place] [address] PCP - General Internal Medicine 07/19/20 [place] [address] [place] [phone] Pharmacist Pharmacy 04/11/23 Kelsi Alfred PA-C [address] [place] [address] Rental Representative Family Medicine 10/04/24 Lala Harrison APRN.SOLE INKER [address] [place] [address] Rental Representative Internal Medicine 10/04/24 Liliana Espinoza PA-C [address] [place] [address] Rental Representative Family Medicine 10/04/24 Cilnical Scientist Relationship Specialty Start Date End Date Monik Hackett MD [address] [place] [address] PCP - General Internal Medicine 07/19/20 [place] [address] [place] [address] Pharmacist Pharmacy 04/11/23 Kelsi Alfred PA-C [address] [place] [address] Rental Representative Family Medicine 10/04/24 Lala Harrison APRN.SOLE INKER [address] [place] [address] Rental Representative Internal Medicine 10/04/24 Liliana Espinoza PA-C [address] [place] [address] Rental Representative Family Medicine 10/04/24 Cilnical Scientist Relationship Specialty Start Date End Date Monik Hackett MD [address] [place] [address] PCP - General Internal Medicine 07/19/20 [place] [address] [place] [phone] Pharmacist Pharmacy 04/11/23 Kelsi Alfred PA-C [address] [place] [address] Rental Representative [facility] 10/04/24 Lala Harrison APRN.SOLE INKER [address] [place] [address] Rental Representative Internal Medicine 10/04/24 Liliana Espinoza PA-C [address] [place] [address] Rental Representative [facility] 10/04/24 Cilnical Scientist Relationship Specialty Start Date End Date Monik Hackett MD [address] [place] [address] PCP - General Internal Medicine 07/19/20 [facility] [address] [place] [phone] Pharmacist Pharmacy 04/11/23 Kelsi Alfred PA-C [facility] [place] [address] Rental Representative Family Medicine 10/04/24 Lala Harrison APRN.SOLE INKER [address] [place] [address] Rental Representative Internal Medicine 10/04/24 Liliana Espinoza PA-C [address] [place] [address] Rental Representative Family Medicine 10/04/24 Cilnical Scientist Relationship Specialty Start Date End Date Monik Hcakett MD [address] [place] [address] PCP - General Internal Medicine 07/19/20 [place] [address] [place] [address] Pharmacist Pharmacy 04/11/23 Lala Harrison APRN.SOLE INKER [address] [place] [address] Rental Representative Internal Medicine 10/04/24 Cilnical Scientist Relationship Specialty Start Date End Date Monik Hackett MD [address] [place] [address] PCP - General Internal Medicine 07/19/20 [place] [address] [place] [address] Pharmacist Pharmacy 04/11/23 Lala Harrison APRN.SOLE INKER [address] [place] [address] Rental Representative Internal Medicine 10/04/24 Cilnical Scientist Relationship Specialty Start Date End Date Monik Hackett MD [address] [place] [address] PCP - General Internal Medicine 07/19/20 [place] [address] [facility] [place] [address] Pharmacist Pharmacy 04/11/23 Lala Harrison APRN.SOLE INKER [address] [place] [address] Rental Representative Internal Medicine 10/04/24 Cilnical Scientist Relationship Specialty Start Date End Date Monik Hackett MD [address] [facility] [place] [address] PCP - General Internal Medicine 07/19/20 [place] [address] [facility] [place] [address] Pharmacist Pharmacy 04/11/23 Lala Harrison APRN.SOLE INKER [address] [place] [address] Rental Representative Internal Medicine 10/04/24 Cilnical Scientist Relationship Specialty Start Date End Date Monik Hackett MD [address] [facility] [address] PCP - General Internal Medicine 07/19/20 [place] [address] [facility] [place] [address] Pharmacist Pharmacy 04/11/23 Lala Harrison APRN.SOLE INKER [address] [place] [address] Rental Representative Internal Medicine 10/04/24 Cilnical Scientist Relationship Specialty Start Date End Date Monik Hackett MD [address] [facility] [address] PCP - General Internal Medicine 07/19/20 [place] [address] [place] [address] Pharmacist Pharmacy 04/11/23 Lala Harrison APRN.SOLE INKER [address] [place] [address] Rental Representative Internal Medicine 10/04/24 Cilnical Scientist Relationship Specialty Start Date End Date Monik Hackett MD [address] [facility] [address] PCP - General Internal Medicine 07/19/20 [place] [address] [place] [address] Pharmacist Pharmacy 04/11/23 Lala Harrison APRN.SOLE INKER [address] [place] [address] Rental Representative Internal Medicine 10/04/24 Cilnical Scientist Relationship Specialty Start Date End Date Monik Hackett MD [address] [facility] [address] PCP - General Internal Medicine 07/19/20 [place] [address] [place] [address] Pharmacist Pharmacy 04/11/23 Lala Harrison APRN.SOLE INKER [address] [place] [address] Rental Representative Internal Medicine 10/04/24 Cilnical Scientist Relationship Specialty Start Date End Date Monik Hackett MD [address] [place] [address] PCP - General Internal Medicine 07/19/20 [place] [address] [place] [address] Pharmacist Pharmacy 04/11/23 Lala Harrison APRN.SOLE INKER [address] [place] [address] Rental Representative Internal Medicine 10/04/24 Cilnical Scientist Relationship Specialty Start Date End Date Monik Hackett MD [address] [place] [address] PCP - General Internal Medicine 07/19/20 [place] [address] [place] [address] Pharmacist Pharmacy 04/11/23 Lala Harrison APRN.SOLE INKER [address] [place] [address] Rental Representative Internal Medicine 10/04/24 Cilnical Scientist Relationship Specialty Start Date End Date Monik Hackett MD [address] [place] [address] PCP - General Internal Medicine 07/19/20 [place] [address] [place] [address] Pharmacist Pharmacy 04/11/23 Lala Harrison APRN.SOLE INKER [address] [place] [address] Rental Representative Internal Medicine 10/04/24 FOR RECORDS PERTAINING TO PATIENTS WHO ARE OR HAVE BEEN ENROLLED IN A CHEMICAL DEPENDENCY/SUBSTANCEABUSE PROGRAM, SOME INFORMATION MAY BE OMITTED. This clinical summary was aggregated from multiple sources. Caution should be exercised in using it in the provision of clinical care. This summary normalizes information from multiple sources, and as a consequence, information in this document may materially change the coding, format and clinical context of patient data. In addition, data may be omitted in some cases. CLINICAL DECISIONS SHOULD BE BASED ON THE PRIMARY CLINICAL RECORDS. [facility]. provides no warranty or guarantee of the accuracy or completeness of information in this document.
[2025-07-31 04:07] LABS: Hematocrit 41.5 % (37-47); Hemoglobin 13.7 g/dL (12.0-15.0); Immature Granulocytes Count 0.010 X10^3/uL (0.0-0.0); Mean Corp Hgb Conc 33.0 g/dL (32-36); Mean Corpuscular Volume 91.2 fL (81-99); Mean Platelet Vol. 10.3 fl (6.2-12.0); NRBC Flagged by Analyzer 0 % (0-5); Platelet Count 164 K/mm3 (150-450); RBC Distribution Width CV 12.7 % (11.6-14.6); RBC Distribution Width SD 41.9 fl (35.1-43.9); Red Blood Count 4.55 M/mm3 (4.2-5.4); White Blood Count 6.0 K/mm3 (4.4-11.0)
[2025-07-31 04:16] VITALS: BMI 43.6
[2025-07-31 04:27] LABS: AST(SGOT) 21 U/L (<=31); Alanine Aminotransfer ALT/SGPT 18 U/L (<=34); Albumin, Serum 4.0 g/dL (3.4-4.8); Alkaline Phosphatase 82 U/L (35-104); Anion Gap 12 (5-15); BUN 13 mg/dL (4-19); BUN/Creat Ratio 17.4 RATIO (10-20); Calcium,Total 9.1 mg/dL (7.6-11.0); Carbon Dioxide 27.3 mmol/L (21.0-32.0); Chloride 101 mmol/L (98-108); Estimated Creatinine Clearance 91.94 ml/min (50-250); Globulin 2.5 g/dL (2.2-4.2); Glucose 207 mg/dL (70-99); Potassium 3.8 mmol/L (3.3-5.1)
[2025-07-31 05:31] VITALS: BP 114/62; PULSE 78; RESP 16; O2SAT 95
[2025-07-31 06:16] LABS: Mucous, Urine 0 SEEN /hpf (<or=2+); Red Blood Cells-Urine 0 SEEN /hpf (0-5)
[2025-07-31 06:21] LABS: Color, Urine Yellow (Yellow); Glucose, Dipstick Normal (Normal); Ketone-Dipstick Negative (Negative); Leukocyte Esterase-Dipstick Negative /ul (Negative); Nitrite-Dipstick Negative (Negative); Occult Blood-Urine Negative /ul (Negative); Protein-Dipstick 15 mg/dl (Negative); Specific Gravity, Urine 1.030 (1.002-1.030); Urine Bilirubin Dipstick Negative (Negative)
[2025-07-31 06:32] LABS: Squamous Epithelial Cells - UA 0-5 SEEN /hpf (5-10)
[2025-07-31 07:00] VITALS: BP 143/70; PULSE 84; RESP 16; O2SAT 98
[2025-07-31 07:40] VITALS: BP 143/70; PULSE 84; RESP 16; TEMP 37.3; O2SAT 98
== END 2025-07-31 07:47 | disposition home or self-care (01) ==
PROVIDERS: Emergency Provider Emergency Medicine; PCP Internal Medicine; Visit Provider Emergency Medicine
DX: H81.399 Other peripheral vertigo, unspecified ear (principal); E11.9 Type 2 diabetes mellitus without complications; Z79.4 Long term (current) use of insulin; M54.50 Low back pain, unspecified; G89.29 Other chronic pain; R53.81 Other malaise; I10 Essential (primary) hypertension; Z79.899 Other long term (current) drug therapy
CPT/HCPCS: 70450; 80053; 81001; 85025; 96374; 99284; A4216; J2405

== ENCOUNTER 2025-08-02 01:10 | Emergency (ER) | payer MEDICAID, SELFPAY ==
[2025-08-02 01:13] VITALS: BP 130/75; PULSE 89; RESP 18; TEMP 36.9; O2SAT 92
--- NOTE | 2025-08-02 01:34 | EKG12_ITS ---
Test Reason : DYSRHYTHMIA Blood Pressure : */* mmHG Vent. Rate : 77 BPM Atrial Rate : 77 BPM P-R Int : 140 ms QRS Dur : 86 ms QT Int : 438 ms P-R-T Axes : 68 45 52 degrees QTcB Int : 495 ms Normal sinus rhythm QTcB >= 480 msec Abnormal ECG Confirmed by ANGELA MCDERMOTT, CATHIE ([id number]), social media editor CHANDRIKA NICHOLSON ([id number]) on 08/02/2025 8:39:42 AM Referred By: Confirmed By: CATHIE MILLER MD
[2025-08-02] MEDS: 0.9% Normal Saline (1000mL) 1,000 ML 1000 ML IV (01:48)
[2025-08-02 01:58] LABS: Hematocrit 41.3 % (37-47); Hemoglobin 13.7 g/dL (12.0-15.0); Immature Granulocytes Count 0.010 X10^3/uL (0.0-0.0); Mean Corp Hgb Conc 33.2 g/dL (32-36); Mean Corpuscular Volume 90.2 fL (81-99); Mean Platelet Vol. 10.7 fl (6.2-12.0); NRBC Flagged by Analyzer 0 % (0-5); Platelet Count 172 K/mm3 (150-450); RBC Distribution Width CV 12.6 % (11.6-14.6); RBC Distribution Width SD 40.9 fl (35.1-43.9); Red Blood Count 4.58 M/mm3 (4.2-5.4); White Blood Count 6.9 K/mm3 (4.4-11.0)
--- NOTE | 2025-08-02 02:27 | EX.ED.DYSGE1 ---
HPI History of Present Illness Chief Complaint: Allergic Reaction Informant: patient and spouse/S.O. Narrative Narrative: Patient is a 65-year-old female with history of schizophrenia as well as panic disorder/anxiety and insomnia presenting with concern for medication reaction. Patient states she had been on long-term Seroquel 100 mg nightly for sleep. She has a new prescriber at the [facility] and was prescribed 400 mg of Seroquel XR to take at night. She never took this amount because she did not think she needed anything that strong. 5 days ago she ran out of her 100 mg Seroquel and was not able to get that refilled. States she took it for the first time tonight and then afterwards started to feel slow, generally weak, have dry mouth and felt numb in her face. She states she does not drink alcohol and never has but thinks this is what she might feel like if she were to. She was concerned that this would kill her or she was having a medication reaction so she came to the ER for further evaluation. Denies any difficulty breathing. States that she feels very anxious but is also very tired. Does note that she has been taking her blood pressure regularly since following up with Dr. Tamez for BPPV. He was worried that she maybe has some undiagnosed or inadequately treated hypertension so she been taking her blood pressure every night recently. [facility] Medical History Fibromyalgia Osteoarthritis DDD (degenerative disc disease) FHx: total knee replacement Overactive bladder Diabetes High cholesterol Hypertension Bipolar 1 disorder Depression Anxiety Panic disorder Home Medications ?Medication ?Instructions ?Recorded ?Last Taken ?Type oxybutynin chloride 10 mg 10 mg PO QHS 11/27/13 09/29/23 History tablet,extended release 24 hr (Ditropan XL) quetiapine 200 mg tablet (Seroquel) 150 mg PO QHS 11/27/13 09/29/23 History metoprolol tartrate 50 mg tablet 50 mg PO BID 12/04/13 09/30/23 History cholecalciferol (vitamin D3) 25 2,000 unit PO DAILY 10/22/14 09/30/23 History mcg (1,000 unit) tablet (Vitamin D3) duloxetine 60 mg capsule,delayed 60 mg PO DAILY 10/22/14 09/30/23 History release omeprazole 20 mg capsule,delayed 20 mg PO DAILY 10/22/14 09/30/23 History release pregabalin 50 mg capsule 175 mg PO BID 10/22/14 09/30/23 History furosemide 20 mg tablet 20 mg PO DAILY 07/27/20 09/30/23 History insulin glargine 100 unit/mL (3 30 - 40 unit SQ QHS 07/27/20 09/30/23 History mL) subcutaneous pen sertraline 100 mg tablet 400 mg PO DAILY 07/27/20 09/30/23 History quetiapine 100 mg tablet (Seroquel) 100 mg PO QHS #15 tabs 08/02/25 Unknown Rx rosuvastatin 10 mg tablet 10 mg PO QHS 08/02/25 Unknown History Allergy/AdvReac Type Severity Reaction Status Date / Time acetaminophen (From Tylenol) Allergy Swelling Verified 08/02/25 01:13 amoxicillin (Amoxicillin) Allergy Rash Verified 08/02/25 01:13 haloperidol (From Haldol) Allergy Other Verified 08/02/25 01:13 haloperidol lactate (From Allergy Other Verified 08/02/25 01:13 Haldol) lithium ([place]) Allergy Other Verified 08/02/25 01:13 naproxen sodium (From Aleve) Allergy Swelling Verified 08/02/25 01:13 Family History no significant family his Surgical History History of tonsillectomy History of rectal surgery H/O: hysterectomy Social History Smoking Status: Never smoker ROS ROS ED Constitutional Constitutional ED: Reports other Details: Reports feeling generally weak ; Denies chills or fever(s) Eyes Eyes: Denies change in vision Cardiovascular Cardiovascular: Denies chest pain Respiratory/Chest Respiratory/Chest: Denies dyspnea Gastrointestinal Gastrointestinal: Denies abdominal pain, nausea or vomiting Neurologic Neurologic: Reports paresthesias and weakness; Denies headache(s) Psychiatric Psychiatric: Reports anxiety Hematologic/Lymphatic Hematologic/Lymphatic: Denies easy bleeding or easy bruising EXAM Physical Exam Const Vital Signs: 08/02/25 01:13 08/02/25 03:11 08/02/25 03:27 Temperature 98.5 F Temperature Source Oral Pulse Rate 89 79 Pulse Rate [Lying] 81 Pulse Rate [Sitting (for 1 minute prior to obtaining)] 82 Pulse Rate [Standing (for 1 minute prior to obtaining)] 88 Respiratory Rate 18 14 Blood Pressure 130/75 H 117/63 Blood Pressure [Lying] 110/60 Blood Pressure [Sitting (for 1 minute prior to obtaining)] 108/87 H Blood Pressure [Standing (for 1 minute prior to obtaining)] 124/76 H Blood Pressure Mean 93 81 Blood Pressure Mean [Lying] 76 Blood Pressure Mean [Sitting (for 1 minute prior to obtaining)] 94 Blood Pressure Mean [Standing (for 1 minute prior to obtaining)] 92 Pulse Ox 92 100 Oxygen Delivery Method Nasal Cannula Oxygen Flow Rate (L/min) 2 08/02/25 03:48 Temperature 98.2 F Temperature Source Pulse Rate 75 Pulse Rate [Lying] Pulse Rate [Sitting (for 1 minute prior to obtaining)] Pulse Rate [Standing (for 1 minute prior to obtaining)] Respiratory Rate 18 Blood Pressure 122/70 H Blood Pressure [Lying] Blood Pressure [Sitting (for 1 minute prior to obtaining)] Blood Pressure [Standing (for 1 minute prior to obtaining)] Blood Pressure Mean 87 Blood Pressure Mean [Lying] Blood Pressure Mean [Sitting (for 1 minute prior to obtaining)] Blood Pressure Mean [Standing (for 1 minute prior to obtaining)] Pulse Ox 97 Oxygen Delivery Method Oxygen Flow Rate (L/min) Positive well nourished and well developed Constitutional Narrative: No odor of alcohol present General Appearance ED: well developed and NAD HEENT Reports dry mucous membranes Mouth ED: Yes dry mucous membranes Mouth: dry mucous membranes Eyes PERRL and EOMs intact bilaterally Eyes Narrative: Injected conjunctive Neck supple and no JVD Neck Narrative: No meningeal signs Chest Wall inspection of chest normal and palpation of chest normal Resp normal respiratory effort and clear to auscultation bilaterally Cardio regular rate and regular rhythm GI normal to inspection, nondistended, normoactive bowel sounds Extremity normal to inspection General Extremety ED: Negative for edema General Extremity: Negative for edema Neuro oriented x3 Neuro Narrative: Slightly thickened speech. Moving all extremities. Clinically appears sedated/intoxicated. No cogwheel rigidity present. No repetitive movements present. Sensorium / Orientation: alert Motor Exam: general weakness Skin no rashes or lesions noted and no wounds MDM MDM MDM Narrative Medical decision making narrative: Patient evaluated for increased somnolence, facial numbness after taking Seroquel 400 mg. Reports significant anxiety. Does not report any SI or HI. On examination patient has some thickened speech, dry mouth and drowsiness. She does not have any findings consistent with neuroleptic malignant syndrome, serotonin syndrome, stroke or encephalopathy. Vital signs and temperature are normal in the emergency room. Metabolic workup looking at the CBC and CMP obtained to ensure there is not an underlying infectious or electrolyte abnormality contributing to her symptoms. This is largely normal except for an elevated glucose of 241. She has known history of diabetes and does admit to eating naturally but is for dinner tonight which could have raise her blood sugar. She has normal anion gap and normal bicarb so low suspicion for DKA or HHNK. On repeat evaluation patient is feeling well better. Is given IV fluids in the emergency room. I will be given a prescription for 150 mg Seroquel to take at night which was her prior dose. She has appointment to follow-up with psychiatry on 08/16 and is plan on keeping it. Given return precautions. Will obtain orthostatic vital signs and ambulate in the ER to ensure that she is stable to go home. Lab Data Attestation: I reviewed the patient's lab results. Labs: Laboratory Results - last 24 hr 08/02/25 00:58 WBC 6.9 RBC 4.58 Hgb 13.7 Hct 41.3 MCV 90.2 MCH 29.9 MCHC 33.2 RDW Std Deviation 40.9 RDW Coeff of [place] 12.6 Plt Count 172 MPV 10.7 Immature Gran % (Auto) 0.100 Neut % (Auto) 47.0 Lymph % (Auto) 44.1 H [place] % (Auto) 7.0 Eos % (Auto) 1.2 Baso % (Auto) 0.6 Absolute Neuts (auto) 3.2 Absolute Lymphs (auto) 3.03 Nucleated RBC % 0 Sodium 138 Potassium 3.5 Chloride 97 L Carbon Dioxide 26.1 Anion Gap 15 BUN 16 Creatinine 0.90 Est GFR (MDRD) Non-Af 71 BUN/Creatinine Ratio 17.8 Glucose 241 H Calcium 9.0 Total Bilirubin 0.31 AST 21 ALT 17 Alkaline Phosphatase 87 Total Protein 6.8 Albumin 4.4 Globulin 2.4 Albumin/Globulin Ratio 1.8 Rhythm Strip Rhythm Strip: Sinus Rhythm Rate: 77 Ectopy: None EKG Initial EKG: Attestation: I personally reviewed and interpreted this EKG as follows: Interpretation: Sinus Rhythm Comments: Normal sinus rhythm rate of 77 bpm Normal axis Normal intervals Normal ST segments Discharge Plan Triage Chief Complaint: Allergic Reaction ED Provider: Veronica Farmer Dx/Rx/DC Orders Clinical Impression: Medication reaction, Panic disorder, Malaise Instructions: ED Drug Reaction, Other Prescriptions: New quetiapine [Seroquel] 100 mg tablet 100 mg PO QHS Qty: 15 0RF No Action oxybutynin chloride [Ditropan XL] 10 MG tablet extended release 24hr 10 mg PO QHS quetiapine [Seroquel] 200 MG tablet 150 mg PO QHS metoprolol tartrate 50 MG tablet 50 mg PO BID omeprazole 20 MG capsule 20 mg PO DAILY duloxetine 60 MG capsule 60 mg PO DAILY pregabalin 50 MG capsule 175 mg PO BID cholecalciferol (vitamin D3) [Vitamin D3] 1,000 UNIT tablet 2,000 unit PO DAILY sertraline 100 MG tablet 400 mg PO DAILY furosemide 20 MG tablet 20 mg PO DAILY insulin glargine 100 UNIT/ML insulin pen 30 - 40 unit SQ QHS rosuvastatin 10 mg tablet 10 mg PO QHS Primary Care Provider: Sheridan Strickland Referrals: Sheridan Strickland MD [Primary Care Provider, Internal Medicine] Activity Restrictions/Additional Instructions: I agree that your symptoms are likely from taking the 400 mg Seroquel tonight. Your workup however was largely normal/reassuring. Your blood sugar was elevated but you were given IV fluids in the emergency room. You have been given a supply of the 100 mg Seroquel to take at night instead. Make sure you follow-up with psychiatry as scheduled on the for further medication adjustment/titration as needed. Print Language: Albanian Disposition Disposition: Home, Self Care Discharge Date/Time: 08/02/25 03:49
--- OUTSIDE RECORDS SUMMARY | 2025-08-02 02:33 | XMS RPT_ITS | CCD ---
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 Name Role Phone Marco A MCDERMOTT, Monik Primary Care Provider [facility], Keti Unavailable Marco A MCDERMOTT, Monik Primary Care Provider [facility], Fior Unavailable Marco A MCDERMOTT, Monik Primary Care Provider GANTA, MONIK Primary Care Unavailable [facility] DIRECTOR-WILLY RODRIGUEZ Primary Care Physician [facility], Keti Unavailable Josh Morin Attending Unavailable Ganta, Monik Primary Care Unavailable Monik Hackett MD Primary Care Provider [phone] Kelsi Alfred PA-C Unavailable [facility] DIRECTOR.MICHAEL, Lala Unavailable Liliana Espinoza PA-C Unavailable OLDER, LALA Attending Unavailable GANTA, MONIK Primary Care Unavailable OLDER, LALA Referring Unavailable GANTA, MNOIK Primary Care Unavailable GANTA, MONIK Attending Unavailable SPENCER, JAIME Referring Unavailable GANTA, MONIK Primary Care Unavailable GANTA, MONIK Referring Unavailable GANTA, MONIK Primary Care Unavailable GANTA, MONIK Referring Unavailable GANTA, MONIK Primary Care Unavailable SPENCER, JAIME Attending Unavailable SELF Referring Unavailable GANTA, MONIK Primary Care Unavailable SPENCER, JAIME Referring Unavailable GANTA, MONIK Primary Care Unavailable Allergies Allergy Classification Reported Allergen(s) Allergy Type Date of Onset Reaction(s) Facility Acetaminophen (2 sources) Acetaminophen Drug Allergy 0 Intolerance [facility] Anti-Epileptic Agents (2 sources) gabapentin Drug Allergy 0 Intolerance [facility] glimepiride (2 sources) glimepiride Drug Allergy 0 Intolerance [facility] Haloperidol (2 sources) Haloperidol Drug Allergy 0 Other: See Comments [facility] liraglutide (2 sources) liraglutide Drug Allergy 0 GI Upset [facility] [place] (2 sources) [place] Drug Allergy 0 Other: See Comments [facility] metFORMIN (2 sources) metFORMIN Drug Allergy 0 Diarrhea [facility] Penicillins (antibiotic) (2 sources) Penicillins Drug Allergy 7 Unknown [facility] Povidone-Iodine (2 sources) Povidone-Iodine Drug Allergy 7 Unknown [facility] Work Phone: (20 sources) Acetaminophen; Translations: [ACETAMINOPHEN] Drug Allergy 0 Intolerance [facility] (20 sources) gabapentin; Translations: [GABAPENTIN] Drug Allergy 0 Intolerance [facility] Work Phone: (20 sources) glimepiride; Translations: [GLIMEPIRIDE] Drug Allergy 0 Intolerance [facility] Work Phone: (20 sources) Haloperidol; Translations: [HALOPERIDOL] Drug Allergy 0 Other: See Comments [facility] Work Phone: (20 sources) liraglutide; Translations: [LIRAGLUTIDE] Drug Allergy 0 GI Upset [facility] Work Phone: (20 sources) [place]; Translations: [LITHIUM] Drug Allergy 0 Other: See Comments [facility] Work Phone: (20 sources) metFORMIN; Translations: [METFORMIN] Drug Allergy 0 Diarrhea [facility] Work Phone: (7 sources) Penicillins; Translations: [PENICILLINS] Propensity to adverse reactions to drug 7 Unknown [facility] Work Phone: (20 sources) Povidone-Iodine; Translations: [POVIDONE-IODINE] Drug Allergy 7 Unknown [facility] Work Phone: (20 sources) Penicillins Propensity to adverse reactions to drug 7 Unknown [facility] Work Phone: (2 sources) traMADol; Translations: [tramadol] Drug Allergy [facility] (1 source) Acetaminophen Drug Allergy 3 [facility] (1 source) Amoxicillin Drug Allergy 3 [facility] (1 source) Haloperidol Drug Allergy 3 [facility] (1 source) Haloperidol Drug Allergy 3 [facility] (1 source) [place] Drug Allergy 3 [facility] (1 source) Naproxen Drug Allergy 3 [facility] (14 sources) Penicillins Propensity to adverse reactions to drug 7 Unknown [facility] Medications Current Medications Medication Drug Class(es) Dates Sig (Normalized) Sig (Original) acetaminophen 325 mg / HYDROcodone bitartrate 5 mg oral tablet (1 source) Opioid Agonist Start: 07-15-2023 End: 07-18-2023 take 1 tablet by mouth every eight hours as needed for pain [place] 325- 5 mg oral tablet Dose = 1 tab(s), Oral, q8h, PRN as needed for pain, X 3 day(s), # 9 tab(s), 0 Refill(s), Fibromyalgia, 116 Start Date: 07/15/23 Stop Date: 07/18/23 Status: Ordered [id number] 200 actuat albuterol 0.09 mg/actuat metered dose [...] Take 1 tablet by mouth twice weekly [id number], then decrease to 1 tablet weekly. 24 [...] Take 1 tablet by mouth twice weekly [id number], then decrease to 1 tablet weekly. 24 capsule 2 10/14/2020 09/24/2022 Discontinued Comment on above: Take 1 capsule by [facility] two times a week. TO BE TAKEN ORALLY DIRECTED. Take 1 tablet by mouth twice weekly [id number], then decrease to 1 tablet weekly. ferrous [...] daily. 15 mL 3 03/17/2024 Active Start: 07-09-2023 Lantus Solosta r Pen 100 units/mL 3 [...] mouth daily with breakfast. 30 tablet 11 05/06/2024 03/30/2025 Discontinued Start: 08-09-2023 End: 03-12-2024 take 1 tablet by mouth once daily at breakfast metFORMIN (GLUCOPHAGE) 500 mg tablet Indications: Controlled type 2 diabetes mellitus without complication, with long-term current use of insulin ([facility]) Take 1 tablet by mouth daily with breakfast. 30 tablet 11 08/09/2023 03/12/2024 Discontinued Start: 12-21-2021 End: 04-11-2023 [...] th twice daily. Take 1 tablet by ormeo th two times a day. omeprazole 20 [...] on above: Take 1 capsule by mo [facility] once daily. 24 hr oxybutynin chloride 10 [...] tablet (20 sources) Start: 07-09-2023 Potassium Chloride (Tqt-Fkxt-Hhx 10) 10 mEq oral tablet, extended release [...] daily. PULSE OXIMETER CONTEC (20 sources) Start: PULSE OXIMETER CONTE Use as needed to monitor oxygen level and heart rate 1 Each 1 10/02/2023 Active Comment on above: Use as needed to mon itor oxygen level and heart rate QUEtiapine 100 mg oral tablet (20 sources) Atypical Antipsychotic Start: End: take 1 tablet by mouth [...] 1 tablet by romeo th once daily. triamcinolone acetonide 5 mg/ml topical [...] 07/09/23 Status: Ordered take 1 tablet by romeo th twice daily divalproex DR (DEPAKOTE) 500 mg [...] Comment on above: Take 1 capsule by [facility] once daily. 0.5 ml dulaglutide 1.5 mg/ml [...] disease; Translations: [History of iron deficiency] Onset: 5 Episodic Other screening for suspected conditions (not [...] (20 sources) Schizophrenia; Translations: [Schizophrenia, unspecified] Onset: 0 07-18-2020 Chronic Spondylosis; intervertebral disc disorders; other [...] 10-04-2023 07-12-2023 Episodic Other aftercare (2 sources) [facility] (current) use of insulin; Translations: [Controlled type 2 diabetes mellitus without complication, with long-term current use of insulin (HCC)] Onset: 01-23-2023 Episodic Other aftercare (1 source) Other [facility] (current) drug therapy; Translations: [Medication management] Onset: [...] Test Name Value Interpretation Reference Range Facility [facility] IRMA STEWART ([id number]) 1960 F Date Time Provider Department 07/30/25 MONIK HACKETT During your visit today, we recorded the following information about you: Rhona Lai, RN 07/30/2025 3:38 PM Signed Reason for Conversation Neurologic Problem Background Patient calls and is all over the place. Patient states that she is worried about her Ferritin and has quit taking her iron because of the Ferritin levels. Patient states that she has been having issues of her left leg being numb and weak and that her foot is ice cold. Patient states then that she has been having issues with both legs being numb and cold. Patient states that this happened after her appointment with Dr. Hackett on 07/20/2025. Patient then starts talking about her ferritin levels and that she saw Dr. Branch who told her that he thinks her blood pressure is going up and down and that is why she is dizzy. Patient states that she needs an order for a plus sized wheelchair and and a lift recliner chair. Patient states that she stopped taking her B12 and needs labs to be ran and that she needs her liver checked out. Disposition SEE HCP (OR PCP TRIAGE) WITHIN 4 HOURS- Patient advised that she needs to go to the ER for her symptoms of leg weakness and cold feet. Patient voices understanding. Reason for Disposition [1] Numbness (i.e., loss of sensation) of the face, arm / hand, or leg / foot on one side of the body AND [2] gradual onset (e.g., days to weeks) AND [3] present now 1. SYMPTOM: Weakness; Numbness to left Let since she fell; Foot cold and cannot get it warmed up. 2. ONSET: Started since she seen Dr. Hackett on 07/20/2025 3. LAST NORMAL: 4. PATTERN Constant; Yes 5. CARDIAC SYMPTOMS: Heart wants to race at times.; can hear heart in ears 6. NEUROLOGIC SYMPTOMS: Dizziness; unsteady of feet. 7. OTHER SYMPTOMS: High Blood pressure No Additional Information on file. Protocols Used Neurologic Huhmdck-Uvnlg-FJ Allergies As of Date: 07/30/2025 Noted Allergy Reaction BETADINE (POVIDONE-IODINE) 03/13/2007 16 [...] 08/01/2020 8 - GI Upset Date Reviewed: 07/20/2025 Reviewed by: Nidia Silverio LPN - Fully Assessed Reason for Visit: Neurologic Problem [71] Prescriptions as of 07/30/2025 - ferrous sulfate 325 mg (65 mg iron) tablet Take 1 tablet by mouth two times a day with meals. - ergocalciferol 50,000 unit capsule (VITAMIN D2, DRISDOL) Take 1 capsule by mouth one time a week. - metFORMIN ER (GLUCOPHAGE XR) 500 mg 24 hr tablet Take 1 tablet by mouth daily with breakfast. - oxybutynin ER (DITROPAN XL) 10 mg 24 hr tablet Take 1 tablet by mouth daily at bedtime. - triamcinolone acetonide (KENALOG) 0.5 % cream Apply 1 application to affected area two times a day. For rash/itching. Apply sparingly. Avoid face/skin fold. - potassium chloride (K-TAB) 10 mEq tablet Take 1 tablet by mouth daily with breakfast. Take with lasix - pregabalin (LYRICA) 100 mg capsule Take 1 capsule by mouth two times a day for 180 days. To be taken with 75 mg capsule to total 175 mg twice daily. - pregabalin (LYRICA) 75 mg capsule Take 1 capsule by mouth two times a day for 180 days. Take with 100mg tablet to equal 175mg dose - Blood-Glucose Meter monitoring kit Glucose Meter [...] DM - Controlled E11.9 Insulin: Yes - metoprolol tartrate, short acting, (LOPRESSOR) 50 mg tablet Take 1 tablet by mouth two times a day. - QUEtiapine (SEROQUEL) 100 mg tablet Take 1 tablet by mouth daily at bedtime. - rosuvastatin (CRESTOR) 10 mg tablet Take 1 tablet by mouth daily at bedtime. - alcohol swabs Apply 1 application to affected area three times a day. (more content not included)... Normal [facility] Urinalysis complete panel (U )on 07-29-2025 Bacteria LM.HPF (Urine sed) [#/Area] Negative Normal Negative [facility] Comment on above: Order Comment: Speci men Type: URINE SPECIMENOrdering Facility: [facility] Address: [address] [place] [address] Performed By: #### 2 4356-8 ####[facility] LABCLIA [id number] [place] [address] [place] Bilirubin Ql (U) Negative Normal Negative [facility] Comment on above: Order Comment: Speci men Type: URINE SPECIMENOrdering Facility: [facility] Address: [address] [place] [address] Performed By: #### 2 4356-8 ####[facility] LABCLIA [id number] [place] [address] [place] Clarity (Unsp spec) Clear Normal Clear [facility] Comment on above: Order Comment: Speci men Type: URINE SPECIMENOrdering Facility: [facility] Address: [address] [place] [address] Performed By: #### 2 4356-8 ####[facility] LABCLIA [id number] [place] [address] [place] Color (U) Yellow Normal Yellow [facility] Comment on above: Order Comment: Speci men Type: URINE SPECIMENOrdering Facility: [facility] Address: [address] [place] [address] Performed By: #### 2 4356-8 ####[facility] LABCLIA [id number] [address] Epithelial cells LM.HPF (Urine sed) [#/Area] None Seen Normal [facility] Comment on above: Order Comment: Speci men Type: URINE SPECIMENOrdering Facility: [facility] Address: [address] [place] [address] Performed By: #### 2 4356-8 ####[facility] LABCLIA [id number] [address] [place] Glucose Test strip (U) [Mass/Vol] Negative Normal Negative [facility] Comment on above: Order Comment: Speci men Type: URINE SPECIMENOrdering Facility: [facility] Address: [address] [place] [address] Performed By: #### 2 4356-8 ####[facility] LABCLIA [id number] [place] [address] [place] Hemoglobin Ql (U) Negative Normal Negative [facility] Comment on above: Order Comment: Speci men Type: URINE SPECIMENOrdering Facility: [facility] Address: [address] [place] [address] Performed By: #### 2 4356-8 ####[facility] LABCLIA [id number] [address], [address] [place] Hyaline casts (Urine sed) [#/Area] 0 /[LPF] Normal 0 /LPF [facility] Comment on above: Order Comment: Speci men Type: URINE SPECIMENOrdering Facility: [facility] Address: [address] [place] [address] Performed By: #### 2 4356-8 ####[facility] LABCLIA [id number] [address] [place] Ketones Ql (U) Negative Normal Negative [facility] Comment on above: Order Comment: Speci men Type: URINE SPECIMENOrdering Facility: [facility] Address: [address] [place] [address] Performed By: #### 2 4356-8 ####[facility] LABCLIA [id number] [address], [place] [address] [place] Leukocyte esterase Test strip Ql (U) Negative Normal Negative [facility] Comment on above: Order Comment: Speci men Type: URINE SPECIMENOrdering Facility: [facility] Address: [address] [place] [address] Performed By: #### 2 4356-8 ####[facility] LABCLIA [id number] [address], [place] [address] [place] Nitrite Ql (U) Negative Normal Negative [facility] Comment on above: Order Comment: Speci men Type: URINE SPECIMENOrdering Facility: [facility] Address: [address] [place] [address] Performed By: #### 2 4356-8 ####[facility] LABIA [id number] [place] [address] [place] pH (U) 6.5 [pH] Normal 5.0-8.0 [facility] Comment on above: Order Comment: Speci men Type: URINE SPECIMENOrdering Facility: [facility] Address: [address] [place] [address] Performed By: #### 2 4356-8 ####[facility] LABCLIA [id number] [place] [address] [place] Protein (U) [Mass/Vol] Negative Normal Negative [facility] Comment on above: Order Comment: Speci men Type: URINE SPECIMENOrdering Facility: [facility] Address: [address] [place] [address] Performed By: #### 2 4356-8 ####[facility] LABCLIA [id number] [place] [address] [place] RBC LM.HPF (Urine sed) [#/Area] 0-2 /HPF Normal 0-2 /HPF [facility] Comment on above: Order Comment: Speci men Type: URINE SPECIMENOrdering Facility: [facility] Address: [address] [place] [address] Performed By: #### 2 4356-8 ####[facility] [id number] [place] [address] [place] Specific gravity (U) [Rel density] 1.015 Normal 1.005-1.030 [facility] Comment on above: Order Comment: Speci men Type: URINE SPECIMENOrdering Facility: [facility] Address: [address] [place] [address] Performed By: #### 2 4356-8 ####[facility] [id number] [place] [address] [place] Urobilinogen Ql (U) 0.2 EU/dL Normal 0.2-1.0 EU/dL [facility] Comment on above: Order Comment: Speci men Type: URINE SPECIMENOrdering Facility: [facility] Address: [address] [place] [address] Performed By: #### 2 4356-8 ####[facility] [id number] [place] [address] [place] WBC LM.HPF (Urine sed) [#/Area] 0-5 /HPF Normal 0-5 /HPF [facility] Comment on above: Order Comment: Speci men Type: URINE SPECIMENOrdering Facility: [facility] Address: [address] [place] [address] Performed By: #### 2 4356-8 ####[facility] [id number] [place] [id number] [place] CNOVon 07-20-2025 CNOV Office Visit (INTMWS ) IRMA STEWART ([id number]) 1960 F Date Time Provider Department 07/20/25 2:20 PM MONIK HACKETT During your visit today, we [...] follow up with 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 We discussed [...] fighting depre (more content not included)... Normal [facility] Ferritin SerPl-mCncon 2024 Ferritin [Mass/Vol] 247.0 ng/mL High 14.7-205.1 [facility] Comment on above: Order Comment: Speci men Type: BLOOD SPECIMENOrdering Facility: [facility] Address: [facility] [place] [address] Performed By: #### 5 0190-8, 2276-01 ####[facility] LABCLIA [id number] [place] [address] [place] Iron and Iron binding capaci ty panelon 07-20-2025 Iron [Mass/Vol] 70 ug/dL Normal 41-186 [facility] Comment on above: Order Comment: Speci men Type: BLOOD SPECIMENOrdering Facility: [facility] Address: [address] [place] [address] Performed By: #### 5 0190-8, 2276-01 ####[facility] LABIA [id number] [place] [address] [place] Iron binding capacity [Mass/Vol] 247 ug/dL Normal 232-386 [facility] Comment on above: Order Comment: Speci men Type: BLOOD SPECIMENOrdering Facility: [facility] Address: [address] [place] [address] Performed By: #### 5 0190-8, 2276-01 ####[facility] LABIA [id number] [place] [id number] [place] Iron/TIBC [Molar ratio] 28.3 % Normal 15.0-57.0 [facility] Comment on above: Order Comment: Speci men Type: BLOOD SPECIMENOrdering Facility: [facility] Address: [address] [place] [address] Performed By: #### 5 0190-8, 2276-01 ####[facility] LABCLIA [id number] [place] [address] [place] XR KNEE 4V AP/PA BOTH+LAT/ME R LTon 07-20-2025 XR KNEE 4V AP/PA BOTH+LAT/KATIE LT * * *Final Report* * * DATE OF EXAM: Jul 20 2025 4:34PM WOX 5202 - XR KNEE 4V AP/PA BOTH+LAT/KATIE LT / PROCEDURE REASON: Primary osteoarthritis of both knees * * * * Physician Interpretation * * * * PROCEDURE: Left knee INDICATION: Primary osteoarthritis of both knees . Primary osteoarthritis of both knees TECHNIQUE: XR KNEE 4V AP/PA BOTH+LAT/KATIE LT COMPARISON: 03/26/2023 FINDINGS: Severe medial joint compartment narrowing with tricompartment spur formation, slightly greater than previous. No fracture or dislocation. No joint effusion. Right TKA is noted. IMPRESSION: Advanced osteoarthrosis Video Production Engineer: JADON Transcribe Date/Time: Jul 24 2025 9:37A Dictated by : ANDREW GARCÍA MD This examination was interpreted and the report reviewed and electronically signed by: ANDREW GARCÍA MD on Jul 24 2025 9:38AM EST [id number] Normal [facility] ALBUMIN/CREATININE RATIO, UR INEon 04-17-2025 Albumin DL <= 20 mg/L (U) [Mass/Vol] mg/dL Normal [facility] Comment on above: Order Comment: Speci men Type: URINE SPECIMENOrdering Facility: [facility] Address: [address] [place] [address] Performed By: #### U ACR ####[facility] LABCLIA [id number] [address] [place] Albumin/Creatinine (U) [Mass ratio] Normal [facility] Comment on above: Order Comment: Speci men Type: URINE SPECIMENOrdering Facility: [facility] Address: [address] [place] [address] Result Comment: Not calculated Adult Male and Female Nephrotic Criteria: <30 mg/g is considered normal to mildly increased 30-300 mg/g is considered moderately increased >300 mg/g is considered severely increased KDIGO. (2013). KDIGO 2012 Clinical Practice Guideline for the Evaluation and Management of Chronic Kidney Disease. Official Journal of the International Society of Nephrology, 3(1), 1-150. Performed By: #### U ACR ####[facility] LABCLIA [id number] [address] [place] [address] [place] Creatinine (U) [Mass/Vol] 38.8 mg/dL Normal 20.0-300.0 [facility] Comment on above: Order Comment: Speci men Type: URINE SPECIMENOrdering Facility: [facility] Address: [address] [place] [address] Performed By: #### U ACR ####[facility] LABCLIA [id number] [address], [facility] [place] Urinalysis complete panel (U )on 04-17-2025 Bacteria LM.HPF (Urine sed) [#/Area] Negative Normal Negative [facility] Comment on above: Order Comment: Speci men Type: URINE SPECIMENOrdering Facility: [facility] Address: [address] [place] [address] Performed By: #### 2 4356-8 ####[facility] LABIA [id number] [place] [id number] [place] Bilirubin Ql (U) Negative Normal Negative [facility] Comment on above: Order Comment: Speci men Type: URINE SPECIMENOrdering Facility: [facility] Address: [address] [place] [address] Performed By: #### 2 4356-8 ####[facility] LABIA [id number] [address] [address] [place] Clarity (Unsp spec) Clear Normal Clear [facility] Comment on above: Order Comment: Speci men Type: URINE SPECIMENOrdering Facility: [facility] Address: [address] [place] [address] Performed By: #### 2 4356-8 ####[facility] LABCLIA [id number] [address] [place] [address] [place] Color (U) Yellow Normal Yellow [facility] Comment on above: Order Comment: Speci men Type: URINE SPECIMENOrdering Facility: [facility] Address: [address] [place] [address] Performed By: #### 2 4356-8 ####[facility] LABCLIA [id number] [address], [place] [address] [place] Epithelial cells LM.HPF (Urine sed) [#/Area] None Seen Normal [facility] Comment on above: Order Comment: Speci men Type: URINE SPECIMENOrdering Facility: [facility] Address: [address] [place] [address] Performed By: #### 2 4356-8 ####[facility] LABCLIA [id number] [address] [place] Glucose Test strip (U) [Mass/Vol] Negative Normal Negative [facility] Comment on above: Order Comment: Speci men Type: URINE SPECIMENOrdering Facility: [facility] Address: [address] [place] [address] Performed By: #### 2 4356-8 ####[facility] LABCLIA [id number] [address], [place] [address] [place] [place] Hemoglobin Ql (U) Negative Normal Negative [facility] Comment on above: Order Comment: Speci men Type: URINE SPECIMENOrdering Facility: [facility] Address: [address] [place] [address] Performed By: #### 2 4356-8 ####[facility] LABCLIA [id number] [place] [address] [place] Hyaline casts (Urine sed) [#/Area] 0 /[LPF] Normal 0 /LPF [facility] Comment on above: Order Comment: Speci men Type: URINE SPECIMENOrdering Facility: [facility] Address: [address] [place] [address] Performed By: #### 2 4356-8 ####[facility] LABCLIA [id number] [facility] [address], [facility] [place] Ketones Ql (U) Negative Normal Negative [facility] Comment on above: Order Comment: Speci men Type: URINE SPECIMENOrdering Facility: [facility] Address: [address] [place] [address] Performed By: #### 2 4356-8 ####[facility] LABCLIA [id number] [address], [facility] [place] Leukocyte esterase Test strip Ql (U) Negative Normal Negative [facility] Comment on above: Order Comment: Speci men Type: URINE SPECIMENOrdering Facility: [facility] Address: [address] [place] [address] Performed By: #### 2 4356-8 ####[facility] LABCLIA [id number] [address], [facility] [place] Nitrite Ql (U) Negative Normal Negative [facility] Comment on above: Order Comment: Speci men Type: URINE SPECIMENOrdering Facility: [facility] Address: [address] [place] [address] Performed By: #### 2 4356-8 ####[facility] LABCLIA [id number] [address], [facility] [place] pH (U) 7.0 [pH] Normal <8.5 [facility] Comment on above: Order Comment: Speci men Type: URINE SPECIMENOrdering Facility: [facility] Address: [address] [place] [address] Performed By: #### 2 4356-8 ####[facility] LABCLIA [id number] [address], [facility] [place] Protein (U) [Mass/Vol] Negative Normal Negative [facility] Comment on above: Order Comment: Speci men Type: URINE SPECIMENOrdering Facility: [facility] Address: [address] [place] [address] Performed By: #### 2 4356-8 ####[facility] LABIA [id number] [place] [address] [place] RBC LM.HPF (Urine sed) [#/Area] 0-2 /HPF Normal 0-2 /HPF [facility] Comment on above: Order Comment: Speci men Type: URINE SPECIMENOrdering Facility: [facility] Address: [address] [place] [address] Performed By: #### 2 4356-8 ####[facility] LABIA [id number] [place] [address] [place] Specific gravity (U) [Rel density] 1.010 Normal 1.005-1.030 [facility] Comment on above: Order Comment: Speci men Type: URINE SPECIMENOrdering Facility: [facility] Address: [address] [place] [address] Performed By: #### 2 4356-8 ####[facility] LABIA [id number] [place] [address] [place] Urobilinogen Ql (U) 0.2 EU/dL Normal 0.2-1.0 EU/dL [facility] Comment on above: Order Comment: Speci men Type: URINE SPECIMENOrdering Facility: [facility] Address: [address] [place] [address] Performed By: #### 2 4356-8 ####[facility] LABIA [id number] [place] [address] [place] WBC LM.HPF (Urine sed) [#/Area] 0-5 /HPF Normal 0-5 /HPF [facility] Comment on above: Order Comment: Speci men Type: URINE SPECIMENOrdering Facility: [facility] Address: [address] [place] [address] Performed By: #### 2 4356-8 ####[facility] LABCLIA [id number] [place] [address] [place] CBC W Auto Differential pane l (Bld)on 04-16-2025 Basophils (Bld) [#/Vol] 0.06 10*3/uL [facility] Basophils/100 WBC (Bld) 0.9 % [facility] Differential cell count method Nom (Bld) Auto [facility] Eosinophils (Bld) [#/Vol] 0.13 10*3/uL [facility] Eosinophils/100 WBC (Bld) 2 % [facility] Erythrocyte distribution width (RBC) [Ratio] 13 % 11.5 - 15.0 % [facility] Hematocrit (Bld) [Volume fraction] 42.3 % 36.0 - 46.0 % [facility] Hemoglobin (Bld) [Mass/Vol] 13.9 g/dL 11.5 - 15.5 g/dL [facility] Immature granulocytes (Bld) [#/Vol] [facility] Immature granulocytes/100 WBC (Bld) 0.2 % [facility] Lymphocytes (Bld) [#/Vol] 2.71 10*3/uL [facility] Lymphocytes/100 WBC (Bld) 41.7 % [facility] MCH (RBC) [Entitic mass] 30.2 pg 26.0 - 34.0 pg [facility] MCHC (RBC) [Mass/Vol] 32.9 g/dL 30.5 - 36.0 g/dL [facility] MCV (RBC) [Entitic vol] 91.8 fL 80.0 - 100.0 fL [facility] Monocytes (Bld) [#/Vol] 0.5 10*3/uL [facility] Monocytes/100 WBC (Bld) 7.7 % [facility] Neutrophils (Bld) [#/Vol] 3.09 10*3/uL [facility] Neutrophils/100 WBC (Bld) 47.5 % [facility] Nucleated RBC (Bld) [#/Vol] [facility] Nucleated RBC/100 WBC (Bld) [Ratio] 0 % /100 WBC [facility] Platelet mean volume (Bld) [Entitic vol] 10.2 fL 9.0 - 12.7 fL [facility] Platelets (Bld) [#/Vol] 172 10*3/uL [facility] RBC (Bld) [#/Vol] 4.61 10*6/uL 3.90 - 5.2 0 m/uL [facility] WBC (Bld) [#/Vol] 6.5 10*3/uL [facility] Basophils (Bld) [#/Vol] 0.06 10*3/uL Normal <0.11 [facility] Comment on above: Order Comment: Speci men Type: BLOOD SPECIMENOrdering Facility: [facility] Address: [address] [place] [address] Performed By: #### 5 7021-8 ####[facility] LABCLIA [id number] [place] [address] [place] Basophils/100 WBC (Bld) 0.9 % Normal [facility] Comment on above: Order Comment: Speci men Type: BLOOD SPECIMENOrdering Facility: [facility] Address: [address] [place] [address] Performed By: #### 5 7021-8 ####[facility] LABCLIA [id number] [place] [address] [place] Differential cell count method Nom (Bld) Auto Normal [facility] Comment on above: Order Comment: Speci men Type: BLOOD SPECIMENOrdering Facility: [facility] Address: [address] [place] [address] Performed By: #### 5 7021-8 ####[facility] LABCLIA [id number] [place] [address] [place] Eosinophils (Bld) [#/Vol] 0.13 10*3/uL Normal <0.46 [facility] Comment on above: Order Comment: Speci men Type: BLOOD SPECIMENOrdering Facility: [facility] Address: [address] [place] [address] Performed By: #### 5 7021-8 ####[facility] LABCLIA [id number] [place] [address] [place] Eosinophils/100 WBC (Bld) 2.0 % Normal [facility] Comment on above: Order Comment: Speci men Type: BLOOD SPECIMENOrdering Facility: [facility] Address: [address] [place] [address] Performed By: #### 5 7021-8 ####[facility] LABCLIA [id number] [facility] [address] [place] Erythrocyte distribution width (RBC) [Ratio] 13.0 % Normal 11.5-15.0 [facility] Comment on above: Order Comment: Speci men Type: BLOOD SPECIMENOrdering Facility: [facility] Address: [address] [place] [address] Performed By: #### 5 7021-8 ####[facility] LABCLIA [id number] [place] [address] [place] Hematocrit (Bld) [Volume fraction] 42.3 % Normal 36.0-46.0 [facility] Comment on above: Order Comment: Speci men Type: BLOOD SPECIMENOrdering Facility: [facility] Address: [address] [place] [address] Performed By: #### 5 7021-8 ####[facility] LABCLIA [id number] [facility] [address], [place] [address] [place] Hemoglobin (Bld) [Mass/Vol] 13.9 g/dL Normal 11.5-15.5 [facility] Comment on above: Order Comment: Speci men Type: BLOOD SPECIMENOrdering Facility: [facility] Address: [address] [place] [address] Performed By: #### 5 7021-8 ####[facility] LABCLIA [id number] [place] [address] [place] Immature granulocytes (Bld) [#/Vol] 10*3/uL Normal <0.10 [facility] Comment on above: Order Comment: Speci men Type: BLOOD SPECIMENOrdering Facility: [facility] Address: [address] [place] [address] Performed By: #### 5 7021-8 ####[facility] LABCLIA [id number] [place] [address] [place] Immature granulocytes/100 WBC (Bld) 0.2 % Normal [facility] Comment on above: Order Comment: Speci men Type: BLOOD SPECIMENOrdering Facility: [facility] Address: [address] [place] [address] Performed By: #### 5 7021-8 ####[facility] LABCLIA [id number] [place] [address] [place] Lymphocytes (Bld) [#/Vol] 2.71 10*3/uL Normal 1.00-4.00 [facility] Comment on above: Order Comment: Speci men Type: BLOOD SPECIMENOrdering Facility: [facility] Address: [address] [place] [address] Performed By: #### 5 7021-8 ####[facility] LABIA [id number] [place] [address] [place] Lymphocytes/100 WBC (Bld) 41.7 % Normal [facility] Comment on above: Order Comment: Speci men Type: BLOOD SPECIMENOrdering Facility: [facility] Address: [address] [place] [address] Performed By: #### 5 7021-8 ####[facility] LABCLIA [id number] [place] [address] [place] MCH (RBC) [Entitic mass] 30.2 pg Normal 26.0-34.0 [facility] Comment on above: Order Comment: Speci men Type: BLOOD SPECIMENOrdering Facility: [facility] Address: [address] [place] [address] Performed By: #### 5 7021-8 ####[facility] LABCLIA [id number] [place] [address] [place] MCHC (RBC) [Mass/Vol] 32.9 g/dL Normal 30.5-36.0 [facility] Comment on above: Order Comment: Speci men Type: BLOOD SPECIMENOrdering Facility: [facility] Address: [address] [place] [address] Performed By: #### 5 7021-8 ####[facility] LABCLIA [id number] [place] [address] [place] MCV (RBC) [Entitic vol] 91.8 fL Normal 80.0-100.0 [facility] Comment on above: Order Comment: Speci men Type: BLOOD SPECIMENOrdering Facility: [facility] Address: [address] [place] [address] Performed By: #### 5 7021-8 ####[facility] LABIA [id number] [place] [address] [place] Monocytes (Bld) [#/Vol] 0.50 10*3/uL Normal <0.87 [facility] Comment on above: Order Comment: Speci men Type: BLOOD SPECIMENOrdering Facility: [facility] Address: [address] [place] [address] Performed By: #### 5 7021-8 ####[facility] LABIA [id number] [place] [address] [place] Monocytes/100 WBC (Bld) 7.7 % Normal [facility] Comment on above: Order Comment: Speci men Type: BLOOD SPECIMENOrdering Facility: [facility] Address: [address] [place] [address] Performed By: #### 5 7021-8 ####[facility] LABCLIA [id number] [place] [address] [place] Neutrophils (Bld) [#/Vol] 3.09 10*3/uL Normal 1.45-7.50 [facility] Comment on above: Order Comment: Speci men Type: BLOOD SPECIMENOrdering Facility: [facility] Address: [address] [place] [address] Performed By: #### 5 7021-8 ####[facility] LABCLIA [id number] [place] [address] [place] Neutrophils/100 WBC (Bld) 47.5 % Normal [facility] Comment on above: Order Comment: Speci men Type: BLOOD SPECIMENOrdering Facility: [facility] Address: [address] [place] [address] Performed By: #### 5 7021-8 ####[facility] LABIA [id number] [place] [address] [place] Nucleated RBC (Bld) [#/Vol] 10*3/uL Normal <0.01 [facility] Comment on above: Order Comment: Speci men Type: BLOOD SPECIMENOrdering Facility: [facility] Address: [address] [place] [address] Performed By: #### 5 7021-8 ####[facility] LABIA [id number] [place] [address] [place] Nucleated RBC/100 WBC (Bld) [Ratio] 0.0 /100 WBC Normal [facility] Comment on above: Order Comment: Speci men Type: BLOOD SPECIMENOrdering Facility: [facility] Address: [address] [place] [address] Performed By: #### 5 7021-8 ####[facility] LABCLIA [id number] [place] [address] [place] Platelet mean volume (Bld) [Entitic vol] 10.2 fL Normal 9.0-12.7 [facility] Comment on above: Order Comment: Speci men Type: BLOOD SPECIMENOrdering Facility: [facility] Address: [address] [place] [address] Performed By: #### 5 7021-8 ####[facility] LABCLIA [id number] [place] [address] [place] Platelets (Bld) [#/Vol] 172 10*3/uL Normal 150-400 [facility] Comment on above: Order Comment: Speci men Type: BLOOD SPECIMENOrdering Facility: [facility] Address: [address] [place] [address] Performed By: #### 5 7021-8 ####[facility] [id number] [place] [address] [place] RBC (Bld) [#/Vol] 4.61 10*6/uL Normal 3.90-5.20 [facility] Comment on above: Order Comment: Speci men Type: BLOOD SPECIMENOrdering Facility: [facility] Address: [address] [place] [address] Performed By: #### 5 7021-8 ####[facility] [id number] [place] [address] [place] WBC (Bld) [#/Vol] 6.50 10*3/uL Normal 3.70-11.00 [facility] Comment on above: Order Comment: Speci men Type: BLOOD SPECIMENOrdering Facility: [facility] Address: [address] [place] [address] Performed By: #### 5 7021-8 ####[facility] [id number] [place] [address] [place] CNOVon 04-16-2025 CNOV Office Visit (INTMWS ) IRMA STEWART ([id number]) 1960 F Date Time Provider Department 04/16/25 10:00 AM OLDER, LALA INTMWS During your visit today, we recorded the following information about you: Pulse Respiration Blood pressure Weight 76/minute 16/minute 144/80 117 kg Older, APRN. LalaDIANETIC COUNSELOR 04/16/2025 12:21 PM Signed CC: Patient presents with: Recheck: Follow up multiple concerns HPI Irma Stewart is a 65 year old female who presents today for multiple concerns. Has had these concerns ongoing for quite a while and has bee worked up previously. With her mental health and difficulty staying on topic, getting full history difficult to obtain. Recording using [employer] software for draft documentation of the visit was discussed with the patient/authorized used equipment sales representative; all questions welcomed and answered. Patient/authorized used equipment sales representative agreed to proceed Paresthesias: - Irma [...] Scheduled to see a new psychiatrist at [facility] in May. Chronic [...] PAST MEDICA (more content not included)... Normal [facility] Comprehensive metabolic 2000 panelon 04-16-2025 Albumin [Mass/Vol] 4.3 g/dL Normal 3.9-4.9 [facility] Comment on above: Order Comment: Speci men Type: BLOOD SPECIMENOrdering Facility: [facility] Address: [address] [place] [address] Performed By: #### 2 4323-05, 2132-06 ####[facility] LABCLIA [id number] [address] [address] [place] ALP [Catalytic activity/Vol] 73 U/L Normal 34-123 [facility] Comment on above: Order Comment: Speci men Type: BLOOD SPECIMENOrdering Facility: [facility] Address: [address] [place], [place] [address] Performed By: #### 2 4323-05, 2132-06 ####[facility] LABCLIA [id number] [place] [id number] [place] ALT [Catalytic activity/Vol] 13 U/L Normal 7-38 [facility] Comment on above: Order Comment: Speci men Type: BLOOD SPECIMENOrdering Facility: [facility] Address: [address] [place], [place] [address] Performed By: #### 2 4323-05, 2132-06 ####[facility] LABCLIA [id number] [place] [id number] [place] Anion gap [Moles/Vol] 16 mmol/L High 8-15 [facility] Comment on above: Order Comment: Speci men Type: BLOOD SPECIMENOrdering Facility: [facility] Address: [address] [place], [place] [address] Performed By: #### 2 4323-05, 2132-06 ####[facility] LABCLIA [id number] [address] [address] [place] AST [Catalytic activity/Vol] 13 U/L Normal 13-35 [facility] Comment on above: Order Comment: Speci men Type: BLOOD SPECIMENOrdering Facility: [facility] Address: [address] [place] [address] Performed By: #### 2 4323-05, 2132-06 ####[facility] LABCLIA [id number] [facility] AVENUEDESK [address] [place] [address] [place] Bilirubin [Mass/Vol] 0.2 mg/dL Normal 0.2-1.3 [facility] Comment on above: Order Comment: Speci men Type: BLOOD SPECIMENOrdering Facility: [facility] Address: [address] [place] [address] Performed By: #### 2 4328, 2132-06 ####[facility] LABCLIA [id number] [facility] AVENUEDES[facility] [address] [place] [address] [place] Calcium [Mass/Vol] 9.1 mg/dL Normal 8.5-10.2 [facility] Comment on above: Order Comment: Speci men Type: BLOOD SPECIMENOrdering Facility: [facility] Address: [address] [place] [address] Performed By: #### 2 43201-02, 2132-06 ####[facility] LABCLIA [id number] [facility]LID AVENUERIDGECREST REG[facility] HOSPITALK [address] [place] [address] [place] Chloride [Moles/Vol] 100 mmol/L Normal 98-107 [facility] Comment on above: Order Comment: Speci men Type: BLOOD SPECIMENOrdering Facility: [facility] Address: [address] [place], [place] [address] Performed By: #### 2 4328, 2132-06 ####[facility] LABCLIA [id number] [facility] [address] [place] [address] [place] CO2 [Moles/Vol] 27 mmol/L Normal 22-30 [facility] Comment on above: Order Comment: Speci men Type: BLOOD SPECIMENOrdering Facility: [facility] Address: [address] [place], [place] [address] Performed By: #### 2 4323-8, 2132-06 ####[facility] LABCLIA [id number] [facility]ID AVENUERIDGECREST [facility] HOSPITALK [address] [place] [address] [place] Creatinine [Mass/Vol] 0.72 mg/dL Normal 0.58-0.96 [facility] Comment on above: Order Comment: Corky jiménez Type: BLOOD SPECIMENOrdering Facility: [facility] Address: [address] [place] [id number] Performed By: #### 2 4323-8, 2132-06 ####[facility] LABCLIA [id number] [place] [address] [place] Creatinine and Glomerular filtration rate.predicted panel (S/P/Bld) 94 mL/min/1.73m??? Normal >=60 [facility] Comment on above: Order Comment: Corky jiménez Type: BLOOD SPECIMENOrdering Facility: [facility] Address: [address] [place] [address] Result Comment: Arlette mated Glomerular Filtration Rate [...] reflect actual GFR. Performed By: #### 2 4328, 2132-06 ####[facility] LABCLIA [id number] [place] [id number] [place] Glucose [Mass/Vol] 136 mg/dL High 74-99 [facility] Comment on above: Order Comment: Corky jiménez Type: BLOOD SPECIMENOrdering Facility: [facility] Address: [address] [place] [id number] Result Comment: The [place] Diabetes Association (ADA) provides guidance for cutoff [...] Standards of Medical Care in Diabetes 2016, [place] [employer]. Diabetes Care. 2016.39(Suppl 1). Performed By: #### 2 4323-05, 2132-06 ####[facility] LABCLIA [id number] [address] [place] [address] [place] Potassium [Moles/Vol] 4.1 mmol/L Normal 3.7-5.1 [facility] Comment on above: Order Comment: Speci men Type: BLOOD SPECIMENOrdering Facility: [facility] Address: [address] [place] [address] Performed By: #### 2 4323-05, 2132-06 ####[facility] LABCLIA [id number] [address] [address] [place] Protein [Mass/Vol] 6.7 g/dL Normal 6.3-8.0 [facility] Comment on above: Order Comment: Speci men Type: BLOOD SPECIMENOrdering Facility: [facility] Address: [address] [place] [address] Performed By: #### 2 4323-05, 2132-06 ####[facility] LABIA [id number] [address] [address] [place] Sodium [Moles/Vol] 143 mmol/L Normal 136-144 [facility] Comment on above: Order Comment: Speci men Type: BLOOD SPECIMENOrdering Facility: [facility] Address: [address] [place] [address] Performed By: #### 2 4323-05, 2132-06 ####[facility] LABCLIA [id number] [address] [place] [address] [place] Urea nitrogen [Mass/Vol] 14 mg/dL Normal 7-21 [facility] Comment on above: Order Comment: Speci men Type: BLOOD SPECIMENOrdering Facility: [facility] Address: [address] [place] [address] Performed By: #### 2 4323-8, 2132-9 ####[facility] LABCLIA [id number] [address] [place] Aleks Benavideson 04-16-20 Cortisol [Mass/Vol] 16.4 ug/dL Normal 4.8-19.5 [facility] Comment on above: Order Comment: Theodorai men Type: BLOOD SPECIMENOrdering Facility: [facility] Address: [address] [place] [address] Result Comment: Prov ided reference range is from 6-10 AM sample collection time. Cortisol Reference Range: 6-10 AM = 4.8-19.5 ug/dL, 4-8 PM = 2.5-11.9 ug/dL Performed By: #### 3 016-3, 3051-0, 3024-7, 2143-6 ####[facility] LABIA [id number] [address] OF [facility] HbA1c (Bld)on 04-16-2025 Average glucose Estimated from glycated hemoglobin (Bld) [Mass/Vol] 166 mg/dL Normal [facility] Comment on above: Order Comment: Corky jiménez Type: BLOOD SPECIMENOrdering Facility: [facility] Address: [address] [place] [address] Result Comment: eAG: (Estimated average glucose) is a calculated value from HgbA1c and is used equipment sales representative of the average blood glucose level in the last 2-3 month period. Performed By: #### 5 5454-3 ####[facility] LABIA [id number] [place] [address] [place] HbA1c (Bld) [Mass fraction] 7.4 % High 4.3-5.6 [facility] Comment on above: Order Comment: Corky jiménez Type: BLOOD SPECIMENOrdering Facility: [facility] Address: [address] [place] [address] Result Comment: [place] Diabetes Association guidelines indicate that patients with HgbA1c in the range 5.7-6.4% are at increased risk for development of diabetes, and intervention by lifestyle modification may be beneficial. HgbA1c greater or equal to 6.5% is considered diagnostic of diabetes. Performed By: #### 5 5454-3 ####[facility] LABCLIA [id number] [place] [id number] [place] T3Free SerPl-mCncon 04-16-20 25 Free T3 [Mass/Vol] 3.3 pg/mL Normal 2.3-4.1 [facility] Comment on above: Order Comment: Speci men Type: BLOOD SPECIMENOrdering Facility: [facility] Address: [address] [place] [address] Performed By: #### 3 016-3, 3050-0, 3024-04, 2143-03 ####[facility] LABIA [id number] [place] [address] [place] T4 Free SerPl-mCncon 025 Free T4 [Mass/Vol] 1.1 ng/dL Normal 0.9-1.7 [facility] Comment on above: Order Comment: Speci men Type: BLOOD SPECIMENOrdering Facility: [facility] Address: [address] [place] [address] Performed By: #### 3 016-3, 305-0, 3024-04, 2143-03 ####[facility] LABIA [id number] [place] [id number] [place] TSH SerPl-aCncon 04-16-2025 TSH Qn 4.360 m[IU]/L High 0.270-4.200 [facility] Comment on above: Order Comment: Speci men Type: BLOOD SPECIMENOrdering Facility: [facility] Address: [address] [place] [address] Performed By: #### 3 016-3, 305-0, 7, 2143-03 ####[facility] LABIA [id number] [place] [id number] [place] VALPROIC ACID / DEPAKENEon 0 04-16-2025 Valproate [Mass/Vol] 47 ug/mL Low 50.0 - 100.0 ug/mL [facility] Comment on above: Reference ranges and high/low indicator flags are provided as general guidelines only. The treating physician must determine appropriate target levels/dosing based on the specific clinical situation. Valproate SerPl-mCncon 04-16 Valproate [Mass/Vol] 47.0 ug/mL Low 50.0-100.0 [facility] Comment on above: Order Comment: Speclenny jiménez Type: BLOOD SPECIMENOrdering Facility: [facility] Address: [address] [place] [address] Result Comment: Refe rence ranges and high/low indicator flags are provided as general guidelines only. The treating physician must determine appropriate target levels/dosing based on the specific clinical situation. Performed By: #### 4 086-5 ####[facility] LABIA [id number] [address] Valproate [Mass/Vol]on 04-16 Interpretation and review of laboratory results Abnormal [facility] Vit B12 [facility]-ncon 025 Cobalamin (Vitamin B12) [Mass/Vol] 522 pg/mL Normal 232-1245 [facility] Comment on above: Order Comment: Corky jiménez Type: BLOOD SPECIMENOrdering Facility: [facility] Address: [address] [place] [address] Performed By: #### 2 4323-8, 2132-9 ####[facility] LABIA [id number] [place] [id number] [facility] CNPMariana 04-12-2025 CNPN Telephone (INTMWS) IRMA STEWART ([id number]) 1960 F Date Time Provider Department 04/12/25 MONIK HACKETT During your visit today, we [...] MILLIGRAMS Oral for 30 Days - Insulin [place], Disposable, (BD ULTRAFINE III MINI PEN) 31 [...] 4 hours as needed. - [facility] Use as needed to monitor oxygen level and heart rate - omeprazole (PRILOSEC) 20 mg capsule Take 1 capsule by mouth once daily. - divalproex DR (DEPAKOTE) 500 mg EC tablet Take 500 mg by mouth two times a day. (more content not included)... Normal [facility] 02-26-2025 [facility] Telephone (INTMWS) IRMA STEWART ([id number]) 1960 F Date Time Provider Department 02/26/25 MONIK HACKETT INTWS During your visit today, we recorded the following information about you: Gely Mckeon RN 02/26/2025 3:39 PM Signed Patient requesting orders for: 1) Referral for Sleep Medicine. (Pt reports an order was previously placed, but this nurse unable to locate). 2) Updated order for Stress Echo Dobutamine. Previous order . Please call patient with an update. LAZARA Rangel Terri, JENN.SENIOR INFRASTRUCTURE ARCHITECT 02/26/2025 3:51 PM Signed Stress test was ordered a year ago by me, not completed due to insurance per record review in [facility]. Sleep medicine order was from Dr. [...] ATC but no answer and voicemail full. [employer] message sent. Gely Rey 03/07/2025 2:39 PM [...] [R09.02] Order(s):CONSULT TO SLEEP MEDICINE - ADULT [[id number]] Order #: [id number]: 1 FUTURE Prescriptions as of 03/10/2025 - [...] total 175 mg twice daily. - Insulin [place], Disposable, (BD ULTRAFINE III MINI PEN) 31 gauge x 3/16 1 Each two times a day. - alcohol swabs Apply 1 application to affected area three times a day. - potassium chloride (K-TAB) 10 mEq tablet Take 1 tablet by mouth daily with breakfast. Take with lasix - ergocalciferol 50,000 unit capsule (VITAMIN D2, [...] PULSE OXIMETE (more content not included)... Normal [facility] CNPNon 01-04-2025 [facility] Telephone (INTMWS) IRMA STEWART ([id number]) 1960 F Date Time Provider Department 01/04/25 MONIK HACKETT INTWS During your visit today, we recorded the following information about you: Helene Cisneros RN 01/04/2025 10:45 AM Signed Significant other, Get, phoned to request refill on Quetiapine 100 mg daily at hs. Advised this Rx was changed to 50 mg daily at hs. Get states patient has been taking 100 mg daily, states she needs 100 mg. [facility] Get thinks this is an error, states patient has been taking 100 mg for a long time. Please advise and phone Get with reply. Jaime Spencer, [employer] [facility] DIRECTOR.SENIOR INFRASTRUCTURE ARCHITECT 01/04/2025 12:56 PM Signed Can send [...] Problem [65] Visit Diagnosis:Schizophreni a, unspecified type ([facility]) [F20.9] Order(s):QUEtiapine (SEROQUEL) 100 mg tabletTake 1 [...] - Controlled E11.9 Insulin: Yes - Insulin [place], Disposable, (BD ULTRAFINE III MINI PEN) 31 [...] mouth daily at bedtime. - PULSE O[facility]IMETER [facility] Use as needed to monitor oxygen level and heart rate - omeprazole (PRILOSEC) 20 mg capsule Take 1 capsule by mouth once daily. - Lancets lancets Test blood sugar(s) 3 times daily. Dx: Type 2 DM - Controlled E11.9 Insulin: Yes - divalproex DR (DEPAKOTE) 500 mg EC tablet Ta (more content not included)... [facility] Telephone (INTMWS) PATASHAIRMA ([id number]) 1960 F Date Time Provider Department 12/01/24 MONIK HACKETT INTMWS During your visit today, we recorded the following information about you: Gely Mckeon RN 12/01/2024 4:09 PM Signed Patient calling in [...] speak full sentences during call. Pt alert mounter sousaphones and answering questions appropriately with good memory [...] - Controlled E11.9 Insulin: Yes - Insulin [place], Disposable, (BD ULTRAFINE III MINI PEN) 31 [...] mouth daily at bedtime. - PULSE O[facility]ET[facility] Use (more content not included)... Normal [facility] 11-11-2024 [facility] Telephone (AMANUEL) IRMA STEWART ([id number]) 1960 F Date Time Provider Department 11/11/24 OSCAR OLIVAREZ During your visit today, we recorded the following information about you: Oscar Olivarez MSW 11/11/2024 11:15 AM Signed Sw called patient and left message for patient to return call to discuss domestic issues with brother. Oscar Olivarez, NORMA 11/13/2024 10:12 AM Signed Sw spoke with [...] 10/30/24. Patient reports that she called the automatic profile sander operator in regards to text message. Pageant Director blocked the number from text. Patient reports [...] of her house when she went to seed cone picker chair and brother called automatic profile sander operator. Text from a number patient believes is [...] - Controlled E11.9 Insulin: Yes - Insulin [place], Disposable, (BD ULTRAFINE III MINI PEN) 31 [...] daily. Dx (more content not included)... Normal [facility] 25(OH)D3 SerPl-mCncon 2024 25-hydroxyvitamin D3 [Mass/Vol] 61.8 ng/mL Normal 31.0-80.0 [facility] Comment on above: Order Comment: Speci men Type: BLOOD SPECIMENOrdering Facility: [facility] Address: [address] [place] [address] Result Comment: Clas sification of 25 OH Vitamin D status: Deficiency/Insufficiency: < or = 30 ng/ml. Sufficiency/Optimal Levels: 31-80 ng/mL Toxicity: > 100 ng/mL. Test performed by chemiluminescent immunoassay. Performed By: #### 1 989-3 ####[facility] LABIA [id number] [place] [address] [place] CBC W Auto Differential pane l (Bld)on 11-10-2024 Basophils (Bld) [#/Vol] 0.03 10*3/uL Normal <0.11 [facility] Comment on above: Order Comment: Speci men Type: BLOOD SPECIMENOrdering Facility: [facility] Address: [address] [place] [address] Performed By: #### 5 7021-8 ####[facility] LABIA [id number] [place] [address] [place] Basophils/100 WBC (Bld) 0.6 % Normal [facility] Comment on above: Order Comment: Speci men Type: BLOOD SPECIMENOrdering Facility: [facility] Address: [address] [place] [address] Performed By: #### 5 7021-8 ####[facility] LABCLIA [id number] [place] [address] [place] Differential cell count method Nom (Bld) Auto Normal [facility] Comment on above: Order Comment: Speci men Type: BLOOD SPECIMENOrdering Facility: [facility] Address: [address] [place] [address] Performed By: #### 5 7021-8 ####[facility] LABCLIA [id number] [place] [address] [place] Eosinophils (Bld) [#/Vol] 0.06 10*3/uL Normal <0.46 [facility] Comment on above: Order Comment: Speci men Type: BLOOD SPECIMENOrdering Facility: [facility] Address: [address] [place] [address] Performed By: #### 5 7021-8 ####[facility] LABCLIA [id number] [place] [address] [place] Eosinophils/100 WBC (Bld) 1.1 % Normal [facility] Comment on above: Order Comment: Speci men Type: BLOOD SPECIMENOrdering Facility: [facility] Address: [address] [place] [address] Performed By: #### 5 7021-8 ####[facility] LABIA [id number] [place] [address] [place] Erythrocyte distribution width (RBC) [Ratio] 12.4 % Normal 11.5-15.0 [facility] Comment on above: Order Comment: Speci men Type: BLOOD SPECIMENOrdering Facility: [facility] Address: [address] [place] [address] Performed By: #### 5 7021-8 ####[facility] LABCLIA [id number] [place] [address] [place] Hematocrit (Bld) [Volume fraction] 42.9 % Normal 36.0-46.0 [facility] Comment on above: Order Comment: Speci men Type: BLOOD SPECIMENOrdering Facility: [facility] Address: [address] [place] [address] Performed By: #### 5 7021-8 ####[facility] LABCLIA [id number] [place] [address] [place] Hemoglobin (Bld) [Mass/Vol] 14.2 g/dL Normal 11.5-15.5 [facility] Comment on above: Order Comment: Speci men Type: BLOOD SPECIMENOrdering Facility: [facility] Address: [address] [place] [address] Performed By: #### 5 7021-8 ####[facility] LABIA [id number] [place] [address] [place] Immature granulocytes (Bld) [#/Vol] 10*3/uL Normal <0.10 [facility] Comment on above: Order Comment: Speci men Type: BLOOD SPECIMENOrdering Facility: [facility] Address: [address] [place] [address] Performed By: #### 5 7021-8 ####[facility] LABIA [id number] [place] [address] [place] Immature granulocytes/100 WBC (Bld) 0.2 % Normal [facility] Comment on above: Order Comment: Speci men Type: BLOOD SPECIMENOrdering Facility: [facility] Address: [address] [place] [address] Performed By: #### 5 7021-8 ####[facility] LABIA [id number] [place] [address] [place] Lymphocytes (Bld) [#/Vol] 1.95 10*3/uL Normal 1.00-4.00 [facility] Comment on above: Order Comment: Speci men Type: BLOOD SPECIMENOrdering Facility: [facility] Address: [address] [place] [address] Performed By: #### 5 7021-8 ####[facility] LABCLIA [id number] [place] [address] [place] Lymphocytes/100 WBC (Bld) 36.6 % Normal [facility] Comment on above: Order Comment: Speci men Type: BLOOD SPECIMENOrdering Facility: [facility] Address: [address] [place] [address] Performed By: #### 5 7021-8 ####[facility] LABCLIA [id number] [place] [address] [place] MCH (RBC) [Entitic mass] 30.9 pg Normal 26.0-34.0 [facility] Comment on above: Order Comment: Speci men Type: BLOOD SPECIMENOrdering Facility: [facility] Address: [address] [place] [address] Performed By: #### 5 7021-8 ####[facility] LABIA [id number] [place] [address] [place] MCHC (RBC) [Mass/Vol] 33.1 g/dL Normal 30.5-36.0 [facility] Comment on above: Order Comment: Speci men Type: BLOOD SPECIMENOrdering Facility: [facility] Address: [address] [place] [address] Performed By: #### 5 7021-8 ####[facility] LABIA [id number] [place] [address] [place] MCV (RBC) [Entitic vol] 93.3 fL Normal 80.0-100.0 [facility] Comment on above: Order Comment: Speci men Type: BLOOD SPECIMENOrdering Facility: [facility] Address: [address] [place] [address] Performed By: #### 5 7021-8 ####[facility] LABCLIA [id number] [place] [address] [place] Monocytes (Bld) [#/Vol] 0.40 10*3/uL Normal <0.87 [facility] Comment on above: Order Comment: Speci men Type: BLOOD SPECIMENOrdering Facility: [facility] Address: [address] [place] [address] Performed By: #### 5 7021-8 ####[facility] LABCLIA [id number] [place] [address] [place] Monocytes/100 WBC (Bld) 7.5 % Normal [facility] Comment on above: Order Comment: Speci men Type: BLOOD SPECIMENOrdering Facility: [facility] Address: [address] [place] [address] Performed By: #### 5 7021-8 ####[facility] LABCLIA [id number] [place] [address] [place] Neutrophils (Bld) [#/Vol] 2.88 10*3/uL Normal 1.45-7.50 [facility] Comment on above: Order Comment: Speci men Type: BLOOD SPECIMENOrdering Facility: [facility] Address: [address] [place] [address] Performed By: #### 5 7021-8 ####[facility] LABCLIA [id number] [place] [address] [place] Neutrophils/100 WBC (Bld) 54.0 % Normal [facility] Comment on above: Order Comment: Speci men Type: BLOOD SPECIMENOrdering Facility: [facility] Address: [address] [place] [address] Performed By: #### 5 7021-8 ####[facility] LABCLIA [id number] [place] [address] [place] Nucleated RBC (Bld) [#/Vol] 10*3/uL Normal <0.01 [facility] Comment on above: Order Comment: Speci men Type: BLOOD SPECIMENOrdering Facility: [facility] Address: [address] [place] [address] Performed By: #### 5 7021-8 ####[facility] LABCLIA [id number] [place] [address] [place] Nucleated RBC/100 WBC (Bld) [Ratio] 0.0 /100 WBC Normal [facility] Comment on above: Order Comment: Speci men Type: BLOOD SPECIMENOrdering Facility: [facility] Address: [address] [place] [address] Performed By: #### 5 7021-8 ####[facility] LABIA [id number] [place] [address] [place] Platelet mean volume (Bld) [Entitic vol] 11.0 fL Normal 9.0-12.7 [facility] Comment on above: Order Comment: Speci men Type: BLOOD SPECIMENOrdering Facility: [facility] Address: [address] [place] [address] Performed By: #### 5 7021-8 ####[facility] LABIA [id number] [place] [address] [place] Platelets (Bld) [#/Vol] 163 10*3/uL Normal 150-400 [facility] Comment on above: Order Comment: Speci men Type: BLOOD SPECIMENOrdering Facility: [facility] Address: [address] [place] [address] Performed By: #### 5 7021-8 ####[facility] LABIA [id number] [place] [address] [place] RBC (Bld) [#/Vol] 4.60 10*6/uL Normal 3.90-5.20 [facility] Comment on above: Order Comment: Speci men Type: BLOOD SPECIMENOrdering Facility: [facility] Address: [address] [place] [address] Performed By: #### 5 7021-8 ####[facility] LABIA [id number] [place] [address] [place] WBC (Bld) [#/Vol] 5.33 10*3/uL Normal 3.70-11.00 [facility] Comment on above: Order Comment: Speci men Type: BLOOD SPECIMENOrdering Facility: [facility] Address: [address] [place] [address] Performed By: #### 5 7021-8 ####[facility] LABCLIA [id number] JAISONYomaira PATELDESK [id number] [place] CNOVon 11-10-2024 CNOV Office Visit (INTMWS ) IRMA STEWART ([id number]) 1960 F Date Time Provider Department 11/10/24 3:20 PM JAIME SPENCER INTMWS During your visit today, we recorded the following information about you: Pulse Blood pressure Weight 75/minute 124/80 118 kg Jaime Spencer APRN.SENIOR INFRASTRUCTURE ARCHITECT 11/10/2024 4:38 PM Signed SUBJECTIVE: Diabetic [...] Long-Term Current Use of Insulin ([facility]) Benign Paroxysmal Vertigo of Both Ears Presents [...] Haldol [Haloperidol] Other: See Comments Headache/hallucination s [place] Other: See Comments Hallucinations Metformin Diarrhea Neurontin [...] DM - Controlled E11.9 Insulin: Yes Insulin [place], Disposable, (BD ULTRAFINE III MINI PEN) 31 [...] cream Ap (more content not included)... Normal [facility] Comprehensive metabolic 2000 panelon 11-10-2024 Albumin [Mass/Vol] 4.3 g/dL Normal 3.9-4.9 [facility] Comment on above: Order Comment: Speci men Type: BLOOD SPECIMENOrdering Facility: [facility] Address: [address] [place] [address] Performed By: #### 2 132-9, ####[facility] LABCLIA [id number] [address] [address] [place] ALP [Catalytic activity/Vol] 80 U/L Normal 34-123 [facility] Comment on above: Order Comment: Speci men Type: BLOOD SPECIMENOrdering Facility: [facility] Address: [address] [place] [address] Performed By: #### 2 132-9, 58401-7 ####[facility] LABCLIA [id number] [place] [address] [place] ALT [Catalytic activity/Vol] 11 U/L Normal 7-38 [facility] Comment on above: Order Comment: Speci men Type: BLOOD SPECIMENOrdering Facility: [facility] Address: [address] [place] [address] Performed By: #### 2 132-9, 74772-5 ####[facility] LABCLIA [id number] [place] [address] [place] Anion gap [Moles/Vol] 13 mmol/L Normal 8-15 [facility] Comment on above: Order Comment: Speci men Type: BLOOD SPECIMENOrdering Facility: [facility] Address: [address] [place] [address] Performed By: #### 2 132-9, ####[facility] LABCLIA [id number] [place] [address] [place] AST [Catalytic activity/Vol] 13 U/L Normal 13-35 [facility] Comment on above: Order Comment: Speci men Type: BLOOD SPECIMENOrdering Facility: [facility] Address: [address] [place] [address] Performed By: #### 2 132-9, 26678-5 ####[facility] LABCLIA [id number] [place] [id number] [place] Bilirubin [Mass/Vol] 0.2 mg/dL Normal 0.2-1.3 [facility] Comment on above: Order Comment: Speci men Type: BLOOD SPECIMENOrdering Facility: [facility] Address: [address] [place] [id number] Performed By: #### 2 132-9, 26516-0 ####[facility] LABCLIA [id number] [address] [address] [place] Calcium [Mass/Vol] 9.4 mg/dL Normal 8.5-10.2 [facility] Comment on above: Order Comment: Speci men Type: BLOOD SPECIMENOrdering Facility: [facility] Address: [address] [place] [address] Performed By: #### 2 132-9, 31987-9 ####[facility] LABCLIA [id number] [place] [address] [place] Chloride [Moles/Vol] 103 mmol/L Normal 98-107 [facility] Comment on above: Order Comment: Speci men Type: BLOOD SPECIMENOrdering Facility: [facility] Address: [address] [place] [address] Performed By: #### 2 132-9, ####[facility] LABCLIA [id number] [place] [address] [place] CO2 [Moles/Vol] 25 mmol/L Normal 22-30 [facility] Comment on above: Order Comment: Speci men Type: BLOOD SPECIMENOrdering Facility: [facility] Address: [address] [place] [address] Performed By: #### 2 132-9, 42874-5 ####[facility] LABCLIA [id number] [place] [id number] [place] Creatinine [Mass/Vol] 0.64 mg/dL Normal 0.58-0.96 [facility] Comment on above: Order Comment: Speci men Type: BLOOD SPECIMENOrdering Facility: [facility] Address: [address] [place] [address] Performed By: #### 2 132-9, 87102-3 ####[facility] LABCLIA [id number] [place] [address] [place] Creatinine and Glomerular filtration rate.predicted panel (S/P/Bld) 99 mL/min/1.73m??? Normal >=60 [facility] Comment on above: Order Comment: Corky jiménez Type: BLOOD SPECIMENOrdering Facility: [facility] Address: [address] [place] [address] Result Comment: Arlette mated Glomerular Filtration Rate [...] actual GFR. Performed By: #### 2 132-9, 84321-1 ####[facility] LABCLIA [id number] [place] [address] [place] Glucose [Mass/Vol] 163 mg/dL High 74-99 [facility] Comment on above: Order Comment: Corky jiménez Type: BLOOD SPECIMENOrdering Facility: [facility] Address: [address] [place] [address] Result Comment: The [place] Diabetes Association (ADA) provides guidance for cutoff [...] Standards of Medical Care in Diabetes 2016, [place] [employer]. Diabetes Care. 2016.39(Suppl 1). Performed By: #### 2 132-9, 22458-5 ####[facility] LABCLIA [id number] [place] [address] [place] Potassium [Moles/Vol] 4.3 mmol/L Normal 3.7-5.1 [facility] Comment on above: Order Comment: Speci men Type: BLOOD SPECIMENOrdering Facility: [facility] Address: [address] [place] [address] Performed By: #### 2 132-9, 62692-4 ####[facility] LABCLIA [id number] [place] [address] [place] Protein [Mass/Vol] 6.5 g/dL Normal 6.3-8.0 [facility] Comment on above: Order Comment: Speci men Type: BLOOD SPECIMENOrdering Facility: [facility] Address: [address] [place] [address] Performed By: #### 2 132-9, 32278-8 ####[facility] LABCLIA [id number] [place] [address] [place] Sodium [Moles/Vol] 141 mmol/L Normal 136-144 [facility] Comment on above: Order Comment: Speci men Type: BLOOD SPECIMENOrdering Facility: [facility] Address: [address] [place] [address] Performed By: #### 2 132-9, 25172-3 ####[facility] LABCLIA [id number] [place] [address] [place] Urea nitrogen [Mass/Vol] 12 mg/dL Normal 7-21 [facility] Comment on above: Order Comment: Speci men Type: BLOOD SPECIMENOrdering Facility: [facility] Address: [address] [place] [address] Performed By: #### 2 132-9, 99598-0 ####[facility] LABCLIA [id number] [place] [id number] [place] Ferritin SerPl-mCncon 2024 Ferritin [Mass/Vol] 191.0 ng/mL Normal 14.7-205.1 [facility] Comment on above: Order Comment: Corky jiménez Type: BLOOD SPECIMENOrdering Facility: [facility] Address: [address] [place] [address] Performed By: #### 5 0190-8, 05923-9, 3016-3, 2276-4 ####[facility] LABCLIA [id number] [place] [address] [place] HbA1c (Bld)on 11-10-2024 Average glucose Estimated from glycated hemoglobin (Bld) [Mass/Vol] 169 mg/dL Normal [facility] Comment on above: Order Comment: Corky jiménez Type: BLOOD SPECIMENOrdering Facility: [facility] Address: [address] [place] [address] Result Comment: eAG: (Estimated average glucose) is a calculated value from HgbA1c and is used equipment sales representative of the average blood glucose level in the last 2-3 month period. Performed By: #### 5 5454-3 ####[facility] LABCLIA [id number] [place] [address] [place] HbA1c (Bld) [Mass fraction] 7.5 % High 4.3-5.6 [facility] Comment on above: Order Comment: Corky jiménez Type: BLOOD SPECIMENOrdering Facility: [facility] Address: [address] [place] [address] Result Comment: Amer [place] Diabetes Association guidelines indicate that patients with HgbA1c in the range 5.7-6.4% are at increased risk for development of diabetes, and intervention by lifestyle modification may be beneficial. HgbA1c greater or equal to 6.5% is considered diagnostic of diabetes. Performed By: #### 5 5454-3 ####[facility] LABCLIA [id number] [place] [id number] [place] Iron and Iron binding capaci ty panelon 11-10-2024 Iron [Mass/Vol] 69 ug/dL Normal 41-186 [facility] Comment on above: Order Comment: Speci men Type: BLOOD SPECIMENOrdering Facility: [facility] Address: [address] [place] [address] Performed By: #### 5 0190-8, 54295-2, 3015-3, 2275-4 ####[facility] LABCLIA [id number] [address] [address] [place] Iron binding capacity [Mass/Vol] 276 ug/dL Normal 232-386 [facility] Comment on above: Order Comment: Speci men Type: BLOOD SPECIMENOrdering Facility: [facility] Address: [address] [place] [address] Performed By: #### 5 0190-8, 04218-3, 3015-3, 2276-01 ####[facility] LABCLIA [id number] [place] [address] [place] Iron/TIBC [Molar ratio] 25.0 % Normal 15.0-57.0 [facility] Comment on above: Order Comment: Speci men Type: BLOOD SPECIMENOrdering Facility: [facility] Address: [address] [place] [address] Performed By: #### 5 0190-8, 69511-1, 3, 2276-01 ####[facility] LABCLIA [id number] [place] [id number] [place] Lipid 1996 panelon 5 Cholesterol [Mass/Vol] 190 mg/dL Normal <200 [facility] Comment on above: Order Comment: Speci men Type: BLOOD SPECIMENOrdering Facility: [facility] Address: [address] [place], [place] [address] Result Comment: <200 mg/dL, Desirable 200-239 mg/dL, Borderline high >239 mg/dL, High Performed By: #### 5 0190-8, 03848-3, 3015-3, 2275- ####[facility] LABCLIA [id number] [address] [address] [place] Cholesterol in HDL [Mass/Vol] 57 mg/dL Normal >39 [facility] Comment on above: Order Comment: Speci men Type: BLOOD SPECIMENOrdering Facility: [facility] Address: [address] [place] [address] Result Comment: 40-5 9 mg/dL, Acceptable >59 mg/dL, High: Negative risk factor for coronary heart disease <40 mg/dL, Low: Positive risk factor for coronary heart disease Performed By: #### 5 0190-8, 01147-0, 3016-3, 6-4 ####[facility] LABCLIA [id number] [address] [place] Cholesterol in LDL [Mass/Vol] 94 mg/dL Normal <100 [facility] Comment on above: Order Comment: Theodorai men Type: BLOOD SPECIMENOrdering Facility: [facility] Address: [address] [place] [address] Result Comment: <100 mg/dL, Optimal 100-129 mg/dL, Near optimal/above optimal 130-159 mg/dL, Borderline high 160-189 mg/dL, High >189 mg/dL, Very high Secondary prevention optimal LDL Cholesterol levels are recommended to be < 70 mg/dL Performed By: #### 5 0190-8, 66912-7, 3016-3, 2275-4 ####[facility] LABCLIA [id number] [address] [place] Cholesterol in LDL/Cholesterol in HDL [Mass ratio] 1.65 {ratio} Normal <2.54 [facility] Comment on above: Order Comment: Speci men Type: BLOOD SPECIMENOrdering Facility: [facility] Address: [address] [place] [address] Result Comment: Pan akers: 1. National Cholesterol Education Program ATP III Guideline At-A-Glance Quick Desk Reference: National Heart, Lung, and Blood Fleming. National Institutes of Health. 2001: NIH Publication No. 01-3305. 2. An International Atherosclerosis Society position paper: global recommendations for the management of dyslipidemia: executive summary, Atherosclerosis. 2014: 232(2):410-413. Performed By: #### 5 0190-8, 63051-3, 3016-3, 2275-4 ####[facility] LABCLIA [id number] [place] [address] [place] Cholesterol in VLDL [Mass/Vol] 39 mg/dL High <30 [facility] Comment on above: Order Comment: Speci men Type: BLOOD SPECIMENOrdering Facility: [facility] Address: [address] [place] [address] Performed By: #### 5 0190-8, 29511-6, 3015-3, 2275- ####[facility] LABCLIA [id number] [place] [address] [place] Cholesterol non HDL [Mass/Vol] 133 mg/dL High <130 [facility] Comment on above: Order Comment: Speci men Type: BLOOD SPECIMENOrdering Facility: [facility] Address: [address] [place] [address] Result Comment: <130 mg/dL, Optimal 130-159 mg/dL, Near optimal/above optimal 160-189 mg/dL, Borderline high 190-219 mg/dL, High >219 mg/dL, Very high Secondary prevention optimal non HDL Cholesterol levels are recommended to be <100 mg/dL Performed By: #### 5 0190-8, 74970-4, 3015-3, 2275- ####[facility] LABCLIA [id number] [place] [address] [place] Cholesterol.total/C holesterol in HDL [Mass ratio] 3.33 {ratio} Normal <5.10 [facility] Comment on above: Order Comment: Speci men Type: BLOOD SPECIMENOrdering Facility: [facility] Address: [address] [place] [address] Performed By: #### 5 0190-8, 50852-6, 6-3, 2275-4 ####[facility] LABCLIA [id number] [place] [address] [place] FASTING TIME 12 hrs Normal [facility] Comment on above: Order Comment: Speci men Type: BLOOD SPECIMENOrdering Facility: [facility] Address: [address] [place] [address] Performed By: #### 5 0190-8, 57977-4, 3016-3, 2275-4 ####[facility] LABCLIA [id number] [place] [address] [place] Triglyceride [Mass/Vol] 196 mg/dL High <150 [facility] Comment on above: Order Comment: Speci men Type: BLOOD SPECIMENOrdering Facility: [facility] Address: [address] [place] [address] Result Comment: <150 mg/dL, Normal 150-199 mg/dL, Borderline high 200-499 mg/dL, High >499 mg/dL, Very high Performed By: #### 5 0190-8, 34378-8, 3015-3, 2276-01 ####[facility] LABCLIA [id number] [place] [address] [place] TSH SerPl-aCncon 11-10-2024 TSH Qn 2.800 m[IU]/L Normal 0.270-4.200 [facility] Comment on above: Order Comment: Speci men Type: BLOOD SPECIMENOrdering Facility: [facility] Address: [address] [place] [address] Performed By: #### 5 0190-8, 23761-9, 3015-3, 2276-01 ####[facility] LABCLIA [id number] [place] [address] [place] Vit B12 SerPl-mCncon 025 Cobalamin (Vitamin B12) [Mass/Vol] 1857 pg/mL High 232-1245 [facility] Comment on above: Order Comment: Speci men Type: BLOOD SPECIMENOrdering Facility: [facility] Address: [address] [place] [address] Performed By: #### 2 132-9, 16344-1 ####[facility] LABCLIA [id number] [place] [address] [place] NITRIC OXIDE, EXHALEDon 07-0 [facility] CBC W Auto Differential pane l (Bld)on 02-27-2024 Basophils (Bld) [#/Vol] 0.03 10*3/uL [facility] Basophils/100 WBC (Bld) 0.6 % [facility] Differential cell count method Nom (Bld) Auto [facility] Eosinophils (Bld) [#/Vol] 0.07 10*3/uL [facility] Eosinophils/100 WBC (Bld) 1.4 % [facility] Erythrocyte distribution width (RBC) [Ratio] 12.3 % 11.5 - 15.0 % [facility] Hematocrit (Bld) [Volume fraction] 42.2 % 36.0 - 46.0 % [facility] Hemoglobin (Bld) [Mass/Vol] 13.7 g/dL 11.5 - 15.5 g/dL [facility] Immature granulocytes (Bld) [#/Vol] [facility] Immature granulocytes/100 WBC (Bld) 0.2 % [facility] Lymphocytes (Bld) [#/Vol] 1.84 10*3/uL [facility] Lymphocytes/100 WBC (Bld) 37.2 % [facility] MCH (RBC) [Entitic mass] 31.1 pg 26.0 - 34.0 pg [facility] MCHC (RBC) [Mass/Vol] 32.5 g/dL 30.5 - 36.0 g/dL [facility] MCV (RBC) [Entitic vol] 95.9 fL 80.0 - 100.0 fL [facility] Monocytes (Bld) [#/Vol] 0.36 10*3/uL [facility] Monocytes/100 WBC (Bld) 7.3 % [facility] Neutrophils (Bld) [#/Vol] 2.64 10*3/uL [facility] Neutrophils/100 WBC (Bld) 53.3 % [facility] Nucleated RBC (Bld) [#/Vol] [facility] Nucleated RBC/100 WBC (Bld) [Ratio] 0.0 % /100 WBC [facility] Platelet mean volume (Bld) [Entitic vol] 10.4 fL 9.0 - 12.7 fL [facility] Platelets (Bld) [#/Vol] 163 10*3/uL [facility] RBC (Bld) [#/Vol] 4.40 10*6/uL 3.90 - 5.2 0 m/uL [facility] WBC (Bld) [#/Vol] 4.95 10*3/uL [facility] Comprehensive metabolic 2000 panelon 02-27-2024 Albumin [Mass/Vol] 4.1 g/dL 3.9 - 4.9 g/dL [facility] ALP [Catalytic activity/Vol] 75 U/L 34 - 123 U/L [facility] ALT [Catalytic activity/Vol] 14 U/L 7 - 38 U/L [facility] Anion gap [Moles/Vol] 11 mmol/L 9 - 18 mmol/L [facility] AST [Catalytic activity/Vol] 18 U/L 13 - 35 U/L [facility] Bilirubin [Mass/Vol] 0.4 mg/dL 0.2 - 1.3 mg/dL [facility] Calcium [Mass/Vol] 9.0 mg/dL 8.5 - 10. 2 mg/dL [facility] Chloride [Moles/Vol] 100 mmol/L 97 - 105 mmol/L [facility] CO2 [Moles/Vol] 29 mmol/L 22 - 30 mmol/L [facility] Creatinine [Mass/Vol] 0.78 mg/dL 0.58 - 0.96 mg/dL [facility] GFR/1.73 sq M.predicted among non-blacks MDRD (S/P/Bld) [Vol rate/Area] 86 mL/min/{1.73_m2} - PINF [facility] Comment on above: Estimated Glomerular Filtration [...] 173 mg/dL High 74 - 99 mg/dL [facility] Comment on above: The [place] Diabete s Association (ADA) provides guidance for [...] Standards of Medical Care in Diabetes 2016, [place] Diabetes Association. Diabetes Care. 2016.39(Suppl 1). Interpretation and review of laboratory results Abnormal [facility] Potassium [Moles/Vol] 4.5 mmol/L 3.7 - 5.1 mmol/L [facility] Protein [Mass/Vol] 6.6 g/dL 6.3 - 8.0 g/dL [facility] Sodium [Moles/Vol] 140 mmol/L 136 - 144 mmol/L [facility] Urea nitrogen [Mass/Vol] 15 mg/dL 7 - 21 mg/dL [facility] THYROID STIMULATING HORMONEo n 02-27-2024 TSH Qn 1.660 m[IU]/L [facility] TSH Qnon 02-27-2024 Interpretation and review of laboratory results Normal [facility] OXIMETRY WITH AMBULATIONon 0 12-06-2023 [facility] XR Finger - right AP and Lat eral and obliqueon 11-25-2023 IMPRESSION: The osseous structures are intact. There are no marginal erosions. Mild narrowing of the first CMC joint with small osteophytes. No other significant abnormality. Video Production Engineer: JADON Transcribe Date/Time: Nov 25 2023 7:13P Dictated by : BRANDON BECERRA MD This examination was interpreted and the report reviewed and electronically signed by: BRANDON BECERRA MD on Nov 25 2023 7:14PM 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 TECHNIQUE: XR DIGIT 3V FRONTAL/LAT/OBL RT Laterality: RIGHT Number of different views (projections): 3 M: XB_1 COMPARISON: None RESULT/ IMPRESSION IMPRESSION: The osseous structures are intact. There are no marginal erosions. Mild narrowing of the first CMC joint with small osteophytes. No other significant abnormality. Video Production Engineer: [facility] Transcribe Date/Time: Nov 25 2023 7:13P Dictated by : BRANDON BECERRA MD This examination was interpreted and the report reviewed and electronically signed by: BRANDON BECERRA MD on Nov 25 2023 7:14PM EST [facility] Radiology Study observation (narrative) [facility] XR Finger - right AP and Lat eral and obliqueOrdered By: [facility]cf Provider on 11-25-2023 [facility] XR Chest PA and Lateralon IMPRESSION: No acute radiographic abnormality. Video Production Engineer: PSCB Transcribe Date/Time: Nov 04 2023 3:01P Dictated by : JORGE SCHWARTZ MD This examination was interpreted and the report reviewed and electronically signed by: JORGE SCHWARTZ MD on Nov 04 2023 3:02PM EST DIVISION OF RADIOLOGY * * *Final Report* [...] soft tissues: Unremarkable. DIVISION OF RADIOLOGY Provider, [facility] - 11/04/2023 * * *Final Report* * [...] Unremarkable. IMPRESSION IMPRESSION: No acute radiographic abnormality. Video Production Engineer: JADON Transcribe Date/Time: Nov 04 2023 3:01P Dictated by : JORGE SCHWARTZ MD This examination was interpreted and the report reviewed and electronically signed by: JORGE SCHWARTZ MD on Nov 04 2023 3:02PM EST [facility] Radiology Study observation (narrative) [facility] XR Chest PA and LateralOrder ed By: [facility] Provider on 11-04-2023 [facility] Abdomen/Pelvis W IV Cont ONL Yon 09-30-2023 Abdomen/Pelvis W IV Cont ONLY [facility] Imaging Services [address] [place] [address] Abdomen/Pelvis W IV Cont ONLY MR#: [id number] Acct: [id number] Name: IRMA STEWART CHACHA Rep #: [id number] : 1960 F 63 From: Tye Burnette PCP: Dr. Monik Hackett MD Status: REG ER Study: Abdomen/Pelvis W IV Cont ONLY Date of Exam: Exam# [id number] Ordering Dr: Josh Morin MD [id number] INDICATION: Diarrhea EXAMINATION: CT ABDOMEN AND PELVIS [...] Josh Morin MD; Dr. Monik Hackett MD Video Production Engineer: Signed Normal [facility] CBC W/Diff, Automatedon 12-0 Absolute Lymph 1.40 X10 3/uL Normal 0.83-4.51 [facility] Comment on above: Performed By: #### L 500.4050, L100.0100 #### [facility] [address] [place], [address] Absolute Neut 4.2 X10 3/uL Normal 2.0-7.7 [facility] Comment on above: Performed By: #### L 500.4050, L100.0100 #### [facility] [address] [place], [address] Basophils/100 WBC (Bld) 0.5 % Normal 0-1 [facility] Comment on above: Performed By: #### L 500.4050, L100.0100 #### [facility] [address] [place], [address] Eosinophils/100 WBC (Bld) 0.0 % Normal 0-5 [facility] Comment on above: Performed By: #### L 500.4050, L100.0100 #### [facility] [address] [place], [address] Erythrocyte distribution width (RBC) [Ratio] 12.3 % Normal 11.6-14.6 [facility] Comment on above: Performed By: #### L 500.4050, L100.0100 #### [facility] [address] [place], [address] Hematocrit (Bld) [Volume fraction] 40.6 % Normal 37-47 [facility] Comment on above: Performed By: #### L 500.4050, L100.0100 #### [facility] [address] [place], [address] Hemoglobin (Bld) [Mass/Vol] 13.0 g/dL Normal 12.0-15.0 [facility] Comment on above: Performed By: #### L 500.4050, L100.0100 #### [facility] [address] [place], [address] IG% 0.300 Normal 0.0-0.9 [facility] Comment on above: Result Comment: IG% - Immature Granulocytes (promyelocytes, myelocytes and metamyelocytes) > 1% indicates that a LEFT SHIFT is Present. Performed By: #### L 500.4050, L100.0100 #### [facility] [address] [place], [address] Lymphocytes/100 WBC (Bld) 23.9 % Normal 19-41 [facility] Comment on above: Performed By: #### L 500.4050, L100.0100 #### [facility] [address] [place], [address] MCH (RBC) [Entitic mass] 30.6 pg Normal 27.0-32.0 [facility] Comment on above: Performed By: #### L 500.4050, L100.0100 #### [facility] [address] [place], [address] MCHC (RBC) [Mass/Vol] 32.0 g/dL Normal 32-36 [facility] Comment on above: Performed By: #### L 500.4050, L100.0100 #### [facility] [address] [place], [address] MCV (RBC) [Entitic vol] 95.5 fL Normal 81-99 [facility] Comment on above: Performed By: #### L 500.4050, L100.0100 #### [facility] [address] [place], [address] Monocytes/100 WBC (Bld) 4.3 % Normal 0-10 [facility] Comment on above: Performed By: #### L 500.4050, L100.0100 #### [facility] [address] [place], [address] Neutrophils/100 WBC (Bld) 71.0 % High 47-70 [facility] Comment on above: Performed By: #### L 500.4050, L100.0100 #### [facility] [address] [place], [address] Nucleated RBC (Bld) [#/Vol] 0 10*3/uL Normal 0-5 [facility] Comment on above: Performed By: #### L 500.4050, L100.0100 #### [facility] [address] [place], [address] Platelet mean volume (Bld) [Entitic vol] 10.8 fL Normal 6.2-12.0 [facility] Comment on above: Performed By: #### L 500.4050, L100.0100 #### [facility] [address] [place], [address] Platelets (Bld) [#/Vol] 129 10*3/uL Low 150-450 [facility] Comment on above: Performed By: #### L 500.4050, L100.0100 #### [facility] [address] [place], [address] RBC (Bld) [#/Vol] 4.25 10*6/uL Normal 4.2-5.4 [facility] Comment on above: Performed By: #### L 500.4050, L100.0100 #### [facility] [address] [place], [address] RDW SD 43.3 fl Normal 35.1-43.9 [facility] Comment on above: Performed By: #### L 500.4050, L100.0100 #### [facility] [address] [place], [address] WBC (Bld) [#/Vol] 5.9 10*3/uL Normal 4.4-11.0 [facility] Comment on above: Performed By: #### L 500.4050, L100.0100 #### [facility] [address] [place], [address] Comprehensive Metabolic Prof [facility] 09-30-2023 Albumin [Mass/Vol] 3.3 g/dL Normal 3.2-5.0 [facility] Comment on above: Performed By: #### L 500.4050, L100.0100 #### [facility] [address] [place], [address] Albumin/Globulin [Mass ratio] 1.0 {ratio} Normal 0.9-2.4 [facility] Comment on above: Performed By: #### L 500.4050, L100.0100 #### [facility] [address] [place], [address] ALK P 73 U/L Normal 45-117 [facility] Comment on above: Performed By: #### L 500.4050, L100.0100 #### [facility] [address] [place], [address] ALT [Catalytic activity/Vol] 18 U/L Normal 13-56 [facility] Comment on above: Performed By: #### L 500.4050, L100.0100 #### [facility] [address] [place], [address] AST [Catalytic activity/Vol] 11 U/L Low 15-37 [facility] Comment on above: Performed By: #### L 500.4050, L100.0100 #### [facility] [address] [place], [address] Bilirubin [Mass/Vol] 0.30 mg/dL Normal 0.20-1.00 [facility] Comment on above: Result Comment: For patients on eltrombopag therapy, use of Dimension [place] TBIL is not recommended. Performed By: #### L 500.4050, L100.0100 #### [facility] [address] [place], [address] BUN/CRE 12.1 RATIO Normal 10-20 [facility] Comment on above: Performed By: #### L 500.4050, L100.0100 #### [facility] [address] [place], [address] CA,Total 8.5 mg/dL Normal 8.5-10.1 [facility] Comment on above: Performed By: #### L 500.4050, L100.0100 #### [facility] [address] [place], [address] Chloride [Moles/Vol] 108 mmol/L High 98-107 [facility] Comment on above: Performed By: #### L 500.4050, L100.0100 #### [facility] [address] [place], [address] CO2 [Moles/Vol] 30.0 mmol/L Normal 21.0-32.0 [facility] Comment on above: Performed By: #### L 500.4050, L100.0100 #### [facility] [address] [place], [address] Creatinine [Mass/Vol] 0.74 mg/dL Normal 0.55-1.02 [facility] Comment on above: Result Comment: The validity of the calculated GFR GFRAA in patients over 70 years has not been determined. Clinical correlation is essential. Performed By: #### L 500.4050, L100.0100 #### [facility] [address] [place], [address] ECRCL 68.07 ml/min Normal [facility] Comment on above: Performed By: #### L 500.4050, L100.0100 #### [facility] [address] [place], [address] EST GFR - AA 101 mL/min Normal >60 [facility] Comment on above: Result Comment: Afri can Greenlandic GFR Calc Performed By: #### L 500.4050, L100.0100 #### [facility] [address] [place], [address] GAP 4 Low 5-15 [facility] Comment on above: Performed By: #### L 500.4050, L100.0100 #### [facility] [address] [place], [address] GFR/1.73 sq M.predicted among non-blacks MDRD (S/P/Bld) [Vol rate/Area] 84 mL/min/{1.73_m2} Normal >60 [facility] Comment on above: Result Comment: Non- GFR Calc Performed By: #### L 500.4050, L100.0100 #### [facility] [address] [place], [address] Globulin (S) [Mass/Vol] 3.4 g/dL Normal 2.2-4.2 [facility] Comment on above: Performed By: #### L 500.4050, L100.0100 #### [facility] [address] [place], [address] Glucose [Mass/Vol] 121 mg/dL High 74-106 [facility] Comment on above: Result Comment: Fast ing Glucose result from 100 to 125 mg/dL suggests IMPAIRED HOMEOSTASIS per A.D.A. criteria. Performed By: #### L 500.4050, L100.0100 #### [facility] [address] [place], [address] Potassium [Moles/Vol] 3.8 mmol/L Normal 3.5-5.1 [facility] Comment on above: Performed By: #### L 500.4050, L100.0100 #### [facility] [address] [place], [address] Sodium [Moles/Vol] 142 mmol/L Normal 136-145 [facility] Comment on above: Performed By: #### L 500.4050, L100.0100 #### [facility] [address] [place] [place], [address] T PROT 6.7 g/dL Normal 6.4-8.2 [facility] Comment on above: Performed By: #### L 500.4050, L100.0100 #### [facility] [address] [place], [address] Urea nitrogen [Mass/Vol] 9 mg/dL Normal 7-18 [facility] Comment on above: Performed By: #### L 500.4050, L100.0100 #### [facility] [address] [place], [address] Emergency Department Summary on 09-30-2023 Emergency Department Summary [facility] Medical Records Department [address] [place] [address] Emergency Department Summary 09/30/23 MR#: [id number] Acct: [id number] Name: IRMA STEWART Rep #: [id number] : 1960 63 From: Josh Morin MD PCP: Dr. Monik Hackett MD Status:REG ER Location: ED [facility] History of Present Illness Chief Complaint: Weakness [...] No fevers or chills, no other symptoms. PFSH PFS Medical History Anxiety Bipolar 1 disorder DDD [...] Other Verified 09/30/23 18:56 [From Haldol] lithium [Venice] Allergy Other Verified 09/30/23 18:56 naproxen sodium [...] 98.1 F (more content not included)... Normal [facility] Urinalysis, Completeon 09-30 WBC 0-5 SEEN Normal 0-5 [facility] Comment on above: Order Comment: CLEAN CATCH Performed By: #### L 400.0001 #### [facility] [address] [place], [address] BACTERIA 0 SEEN Normal None Seen [facility] Comment on above: Order Comment: CLEAN CATCH Performed By: #### L 400.0001 #### [facility] [address] [place], [address] EPI,SQUAMOUS 0 SEEN Normal 5-10 [facility] Comment on above: Order Comment: CLEAN CATCH Performed By: #### L 400.0001 #### [facility] [address] [place], [address] Mucus Ql (Urine sed) 0 SEEN Normal [facility] Comment on above: Order Comment: CLEAN CATCH Performed By: #### L 400.0001 #### [facility] [address] [place], [address] RBC 0 SEEN Normal 0-5 [facility] Comment on above: Order Comment: CLEAN CATCH Performed By: #### L 400.0001 #### [facility] [address] [place], [address] CBC W Auto Differential pane l (Bld)on 07-12-2023 Basophils (Bld) [#/Vol] 0.03 10*3/uL <0.11 k/uL [facility] Basophils/100 WBC (Bld) 0.7 % [facility] Differential cell count method Nom (Bld) Auto [facility] Eosinophils (Bld) [#/Vol] 0.09 10*3/uL <0.46 k/uL [facility] Eosinophils/100 WBC (Bld) 2.2 % [facility] Erythrocyte distribution width (RBC) [Ratio] 12.5 % 11.5 - 15.0 % [facility] Hematocrit (Bld) [Volume fraction] 42.8 % 36.0 - 46.0 % [facility] Hemoglobin (Bld) [Mass/Vol] 13.9 g/dL 11.5 - 15.5 g/dL [facility] Immature granulocytes (Bld) [#/Vol] <0.10 k/uL [facility] Immature granulocytes/100 WBC (Bld) 0.2 % [facility] Lymphocytes (Bld) [#/Vol] 1.52 10*3/uL 1.00 - 4.00 k/uL [facility] Lymphocytes/100 WBC (Bld) 36.4 % [facility] MCH (RBC) [Entitic mass] 31.3 pg 26.0 - 34.0 pg [facility] MCHC (RBC) [Mass/Vol] 32.5 g/dL 30.5 - 36.0 g/dL [facility] MCV (RBC) [Entitic vol] 96.4 fL 80.0 - 100.0 fL [facility] Monocytes (Bld) [#/Vol] 0.28 10*3/uL <0.87 k/uL [facility] Monocytes/100 WBC (Bld) 6.7 % [facility] Neutrophils (Bld) [#/Vol] 2.25 10*3/uL 1.45 - 7.50 k/uL [facility] Neutrophils/100 WBC (Bld) 53.8 % [facility] Nucleated RBC (Bld) [#/Vol] <0.01 k/uL [facility] Nucleated RBC/100 WBC (Bld) [Ratio] 0.0 /100 WBC [facility] Platelet mean volume (Bld) [Entitic vol] 11.3 fL 9.0 - 12.7 fL [facility] Platelets (Bld) [#/Vol] 144 10*3/uL Low 150 - 400 k/uL [facility] RBC (Bld) [#/Vol] 4.44 10*6/uL 3.90 - 5.2 0 m/uL [facility] WBC (Bld) [#/Vol] 4.18 10*3/uL 3.70 - 11. 00 k/uL [facility] ESR Westergren method (Bld) [Velocity]on 07-12-2023 ESR (Bld) [Velocity] 10 mm/h 0 - 20 mm/hr [facility] HEMOGLOBIN A1C (POC)on 07-12 HbA1c (Bld) [Mass fraction] 8.4 % Abnormal 4.2 - 5.6 % [facility] UA DIP, URINE (POC)on 2022 BILIRUBIN UA (POCT) Small Abnormal Negative [facility] CLARITY UA (POCT) Clear [facility] COLOR UA (POCT) Yellow [facility] GLUCOSE UA (POCT) >=1000 Abnormal Negative mg/dL [facility] Hemoglobin Ql (U) Negative Negative [facility] KETONE UA (POCT) 80 mg/dL Abnormal Negative mg/dL [facility] LEUKOCYTES UA (POCT) Negative Negative [facility] NITRITE UA (POCT) Negative Negative [facility] PH UA (POCT) 5.5 4.5 - 8.0 [facility] Protein Ql (U) Trace Abnormal Negative mg/dL [facility] SPECIFIC GRAVITY UA (POCT) 1.025 1.005 - 1.030 [facility] UROBILINOGEN UA (POCT) 0.2 E.U./dL Normal E.U./dL [facility] XR KNEE GENERAL 4V AP BOTH/P A BOTH/LAT/MERC BILATERALon 03-26-2023 [facility] XR Knee - bilateral 4 Viewso n 03-26-2023 IMPRESSION: 1. No acute osseous abnormality right knee and left knee. 2. Right knee frontal arthroplasty. 3. Tricompartmental left knee osteoarthritis 4. Suboptimal joint space centering frontal weightbearing imaging Video Production Engineer: JADON Transcribe Date/Time: Mar 26 2023 7:15P Dictated by : LATISHA ISAAC MD This examination was interpreted and the report reviewed and electronically signed by: LATISHA ISAAC MD on Mar 26 2023 7:23PM [facility] DIVISION OF RADIOLOGY * * *Final Report* [...] but otherwise maintained. DIVISION OF RADIOLOGY Provider, [facility] - 03/26/2023 * * *Final Report* * [...] Suboptimal joint space centering frontal weightbearing imaging Video Production Engineer: JADON Transcribe Date/Time: Mar 26 2023 7:15P Dictated by : LATISHA ISAAC MD This examination was interpreted and the report reviewed and electronically signed by: LATISHA ISAAC MD on Mar 26 2023 7:23PM EST [facility] Radiology Study observation (narrative) [facility] XR Knee - bilateral 4 ViewsO rdered By: [facility] Provider on 03-26-2023 [facility] XR Lumbar spine 3 Viewson IMPRESSION: Lumbar spine degenerative changes as described above. Video Production Engineer: [facility] Transcribe Date/Time: Feb 26 2023 9:54A Dictated by : JORGE SCHWARTZ MD This examination was interpreted and the report reviewed and electronically signed by: JORGE SCHWARTZ MD on Feb 26 2023 9:56AM EST DIVISION OF RADIOLOGY * * *Final Report* [...] spine are presented. FINDINGS: There are five [id number] lumbar vertebrae. No fracture or subluxations are noted. There appears be L2-3 mild disc space narrowing. There is mild osteophyte formation, with facet arthrosis. Kissing spine noted on lateral view. DIVISION OF RADIOLOGY Provider, Gloria Ruddy [facility] - 02/26/2023 * * *Final Report* * [...] spine are presented. FINDINGS: There are five [id number] lumbar vertebrae. No fracture or subluxations are noted. There appears be L2-3 mild disc space narrowing. There is mild osteophyte formation, with facet arthrosis. Kissing spine noted on lateral view. IMPRESSION IMPRESSION: Lumbar spine degenerative changes as described above. Video Production Engineer: JADON Transcribe Date/Time: Feb 26 2023 9:54A Dictated by : JORGE SCHWARTZ MD This examination was interpreted and the report reviewed and electronically signed by: JORGE SCHWARTZ MD on Feb 26 2023 9:56AM EST [facility] XR Lumbar spine 3 ViewsOrder ed By: [facility] Provider on 02-26-2023 [facility] XR Lumbar spine 3 Viewson Radiology Study observation (narrative) [facility] XR FOOT GENERAL 3V AP/LAT/OB L LEFTon 10-09-2022 [facility] .Auto Diffon 08-31-2020 Ammonia (P) [Mass/Vol] 0.50 10 3/mcL Normal 0.15-1.00 [facility] ([place]) Comment on above: Performed By: #### C RACHELLE PATEL ANEU, CMP, GFR #### [address] [address] Basophils (Bld) [#/Vol] 0.10 10 3/mcL Normal 0.00-0.19 [facility] ([place]) Comment on above: Performed By: #### C RACHELLE PATEL ANEU, CMP, GFR #### [address] [place], [place] [address] Basophils/100 WBC (Bld) 0.9 % Normal 0.0-2.5 [facility] ([place]) Comment on above: Performed By: #### C RACHELLE PATEL, ANEU, CMP, GFR #### [address] [address] Eosinophils (Bld) [#/Vol] 0.10 10 3/mcL Normal 0.00-0.40 [facility] ([place]) Comment on above: Performed By: #### C BC, ADIFF, ANEU, CMP, GFR #### [address] [address] Eosinophils/100 WBC (Bld) 0.9 % Normal 0.0-7.0 [facility] ([place]) Comment on above: Performed By: #### C BC, ADIFF, ANEU, CMP, GFR #### [address] [address] Lymphocytes (Bld) [#/Vol] 2.70 10 3/mcL Normal 0.77-3.85 [facility] ([place]) Comment on above: Performed By: #### C BC, ADIFF, ANEU, CMP, GFR #### [address] [address] Lymphocytes/100 WBC (Bld) 36.7 % Normal 10.0-50.0 [facility] ([place]) Comment on above: Performed By: #### C BC, ADIFF, ANEU, CMP, GFR #### [address] [address] Monocytes/100 WBC (Bld) 7.2 % Normal 1.7-13.0 [facility] ([place]) Comment on above: Performed By: #### C BC, ADIFF, ANEU, CMP, GFR #### [address] [address] Neutrophils/100 WBC (Bld) 54.3 % Normal 37.0-80.0 [facility] ([place]) Comment on above: Performed By: #### C BC, ADIFF, ANEU, CMP, GFR #### [address] [address] .GFRon 08-31-2020 GFR 146 ml/min/1.73sqm Normal [facility] ([place]) Comment on above: Result Comment: GFR [...] C BC, ADIFF, ANEU, CMP, GFR #### [address] [address] GFR Non- 121 ml/min/1.73sqm Normal [facility] ([place]) Comment on above: Result Comment: GFR Population [...] C BC, ADIFF, ANEU, CMP, GFR #### [address] [address] .NEUABSon 08-31-2020 Neutrophils (Bld) [#/Vol] 4.00 10 3/mcL Normal 2.85-6.16 [facility] ([place]) Comment on above: Performed By: #### C BC, ADIFF, ANEU, CMP, GFR #### [address] [address] CBCon 08-31-2020 Erythrocyte distribution width (RBC) [Ratio] 15.2 % High 11.5-14.5 [facility] ([place]) Comment on above: Performed By: #### C BC, ADIFF, ANEU, CMP, GFR #### [address] [address] Hematocrit (Bld) [Volume fraction] 40.7 % Normal 37.0-47.0 [facility] ([place]) Comment on above: Performed By: #### C BC, ADIFF, ANEU, CMP, GFR #### [address] [address] Hemoglobin (Bld) [Mass/Vol] 13.4 G/dL Normal 12.0-16.0 [facility] ([place]) Comment on above: Performed By: #### C BC, ADIFF, ANEU, CMP, GFR #### [address] [address] MCH (RBC) [Entitic mass] 31.6 pg High 27.0-31.2 [facility] ([place]) Comment on above: Performed By: #### C BC, ADIFF, ANEU, CMP, GFR #### [address] [address] MCHC (RBC) [Mass/Vol] 33.0 G/dL Normal 33.0-37.0 [facility] ([place]) Comment on above: Performed By: #### C BC, ADIFF, ANEU, CMP, GFR #### [address] [address] MCV (RBC) [Entitic vol] 95.9 fL High 80.0-94.0 [facility] ([place]) Comment on above: Performed By: #### C BC, ADIFF, ANEU, CMP, GFR #### [address] [address] Platelet mean volume (Bld) [Entitic vol] 8.8 fL Normal 7.4-10.4 [facility] ([place]) Comment on above: Performed By: #### C BC, ADIFF, ANEU, CMP, GFR #### [address] [address] Platelets (Bld) [#/Vol] 259 10 3/mcL Normal 130-400 [facility] ([place]) Comment on above: Performed By: #### C BC, ADIFF, ANEU, CMP, GFR #### [address] [address] RBC (Bld) [#/Vol] 4.25 10 6/mcL Normal 4.20-5.40 [facility] ([place]) Comment on above: Performed By: #### C BC, ADIFF, ANEU, CMP, GFR #### [address] [address] WBC (Bld) [#/Vol] 7.40 10 3/mcL Normal 4.60-10.80 [facility] ([place]) Comment on above: Performed By: #### C BC, ADIFF, ANEU, CMP, GFR #### [address] [address] CMPon 08-31-2020 Albumin [Mass/Vol] 3.1 G/dL Low 3.5-5.0 [facility] ([place]) Comment on above: Performed By: #### C BC, ADIFF, ANEU, CMP, GFR #### [address] [address] Albumin/Globulin [Mass ratio] 0.9 {ratio} Low 1.1-2.5 [facility] ([place]) Comment on above: Performed By: #### C BC, ADIFF, ANEU, CMP, GFR #### [address] [address] ALP [Catalytic activity/Vol] 51 U/L Normal 40-135 [facility] ([place]) Comment on above: Performed By: #### C BC, ADIFF, ANEU, CMP, GFR #### [address] [address] ALT [Catalytic activity/Vol] 15 U/L Normal 14-59 [facility] ([place]) Comment on above: Performed By: #### C BC, ADIFF, ANEU, CMP, GFR #### [address] [address] AST [Catalytic activity/Vol] 29 U/L Normal 10-40 [facility] ([place]) Comment on above: Performed By: #### C BC, ADIFF, ANEU, CMP, GFR #### [address] [address] Bili Total 0.4 mg/dL Normal 0.2-1.0 [facility] ([place]) Comment on above: Result Comment: Use of this assay is not recommended for patients undergoing treatment with eltrombopag due to the potential for falsely elevated results. Performed By: #### C BC, ADIFF, ANEU, CMP, GFR #### [address] [address] Calcium [Mass/Vol] 8.3 mg/dL Low 8.4-10.2 [facility] ([place]) Comment on above: Performed By: #### C BC, ADIFF, ANEU, CMP, GFR #### [address] [address] Chloride [Moles/Vol] 104 mmol/L Normal 98-107 [facility] ([place]) Comment on above: Performed By: #### C BC, ADIFF, ANEU, CMP, GFR #### [address] [address] CO2 [Moles/Vol] 31 mmol/L High 22-29 [facility] ([place]) Comment on above: Performed By: #### C BC, ADIFF, ANEU, CMP, GFR #### [address] [address] Creatinine [Mass/Vol] 0.52 mg/dL Low 0.55-1.02 [facility] ([place]) Comment on above: Performed By: #### C BC, ADIFF, ANEU, CMP, GFR #### [address] [address] Electrolyte Balance 5.0 mEq/L Normal [facility] ([place]) Comment on above: Performed By: #### C BC, ADIFF, ANEU, CMP, GFR #### [address] [address] Globulin (S) [Mass/Vol] 3.4 G/dL Normal [facility] ([place]) Comment on above: Performed By: #### C BC, ADIFF, ANEU, CMP, GFR #### [address] [address] Glucose [Mass/Vol] 135 mg/dL High 70-105 [facility] ([place]) Comment on above: Performed By: #### C BC, ADIFF, ANEU, CMP, GFR #### [address] [address] Potassium [Moles/Vol] 5.0 mmol/L Normal 3.5-5.1 [facility] ([place]) Comment on above: Performed By: #### C BC, ADIFF, ANEU, CMP, GFR #### [address] [address] Protein [Mass/Vol] 6.5 G/dL Normal 6.4-8.2 [facility] ([place]) Comment on above: Performed By: #### C BC, ADIFF, ANEU, CMP, GFR #### [address] [address] Sodium [Moles/Vol] 140 mmol/L Normal 136-145 [facility] ([place]) Comment on above: Performed By: #### C BC, ADIFF, ANEU, CMP, GFR #### [address] [address] Urea nitrogen [Mass/Vol] 12 mg/dL Normal 7-18 [facility] ([place]) Comment on above: Performed By: #### C BC, ADIFF, ANEU, CMP, GFR #### [address] [address] Urea nitrogen/Creatinine [Mass ratio] 23 ratio Normal 7-27 [facility] ([place]) Comment on above: Performed By: #### C BC, ADIFF, ANEU, CMP, GFR #### [address] [address] Vital Signs Date Time Vital Sign Value Performing Clinician Facility 04-16-2025 10:04-0400 Body mass index (BMI) [Ratio] 44.29 kg/m2 Lala Older [employer] DIRECTOR.DIANETIC COUNSELOR Work Phone: [facility] 04-16-2025 10:04-0400 Body weight 117.03 kg Lala Older [employer] DIRECTOR.DIANETIC COUNSELOR Work Phone: [facility] 04-16-2025 10:04-0400 Diastolic blood pressure 80 mm[Hg] Lala Older [employer] DIRECTOR.DIANETIC COUNSELOR Work Phone: [facility] 04-16-2025 10:04-0400 Heart rate 76 /min Lala Older [employer] DIRECTOR.DIANETIC COUNSELOR Work Phone: [facility] 04-16-2025 10:04-0400 Respiratory rate 16 /min Lala Older [employer] DIRECTOR.DIANETIC COUNSELOR Work Phone: [facility] 04-16-2025 10:04-0400 SaO2% (BldA) [Mass fraction] 96 % Lala Older [employer] DIRECTOR.DIANETIC COUNSELOR Work Phone: [facility] 04-16-2025 10:04-0400 Systolic blood pressure 144 mm[Hg] Lala Older [employer] DIRECTOR.DIANETIC COUNSELOR Work Phone: [facility] 11-10-2024 15:50-0500 Diastolic blood pressure 80 mm[Hg] Jaime Spencer [employer] DIRECTOR.SENIOR INFRASTRUCTURE ARCHITECT Work Phone: [facility] 11-10-2024 15:50-0500 Systolic blood pressure 124 mm[Hg] Jaime Spencer [employer] DIRECTOR.SENIOR INFRASTRUCTURE ARCHITECT Work Phone: [facility] 11-10-2024 15:49-0500 Body mass index (BMI) [Ratio] 44.65 kg/m2 Jaime Spencer [employer] DIRECTOR.SENIOR INFRASTRUCTURE ARCHITECT Work Phone: [facility] 11-10-2024 15:49-0500 Body weight 118 kg Jaime Spencer [employer] DIRECTOR.SENIOR INFRASTRUCTURE ARCHITECT Work Phone: [facility] 11-10-2024 15:49-0500 Heart rate 75 /min Jaime Spencer [employer] DIRECTOR.SENIOR INFRASTRUCTURE ARCHITECT Work Phone: [facility] 05-06-2024 17:04-0400 Body mass index (BMI) [Ratio] 44.97 kg/m2 Lala Older [employer] DIRECTOR.DIANETIC COUNSELOR Work Phone: [facility] 05-06-2024 17:04-0400 Body weight 118.84 kg Lala Older [employer] DIRECTOR.DIANETIC COUNSELOR Work Phone: [facility] 05-06-2024 17:04-0400 Diastolic blood pressure 80 mm[Hg] Lala Older [employer] DIRECTOR.DIANETIC COUNSELOR Work Phone: [facility] 05-06-2024 17:04-0400 Heart rate 80 /min Lala Older [employer] DIRECTOR.DIANETIC COUNSELOR Work Phone: [facility] 05-06-2024 17:04-0400 Respiratory rate 16 /min Lala Older [employer] DIRECTOR.DIANETIC COUNSELOR Work Phone: [facility] 05-06-2024 17:04-0400 SaO2% (BldA) [Mass fraction] 93 % Lala Older [employer] DIRECTOR.DIANETIC COUNSELOR Work Phone: [facility] 05-06-2024 17:04-0400 Systolic blood pressure 122 mm[Hg] Lala Older [employer] DIRECTOR.DIANETIC COUNSELOR Work Phone: [facility] 04-29-2024 14:03-0400 Body mass index (BMI) [Ratio] 44.29 kg/m2 Pulm Wstr Work Phone: [facility] 04-29-2024 14:03-0400 Body weight 117.03 kg Pulm Wstr Work Phone: [facility] 04-29-2024 14:01-0400 Body mass index (BMI) [Ratio] 44.29 kg/m2 Monserrat Khoury PA-C Work Phone: [facility] 04-29-2024 14:01-0400 Body weight 117.03 kg Monserrat Fordeone PA-C Work Phone: [facility] 04-29-2024 14:01-0400 Diastolic blood pressure 74 mm[Hg] Monserrat Fordeone PA-C Work Phone: [facility] 04-29-2024 14:01-0400 Heart rate 85 /min Monserrat Khoury PA-C Work Phone: [facility] 04-29-2024 14:01-0400 Respiratory rate 14 /min Monserrat Khoury PA-C Work Phone: [facility] 04-29-2024 14:01-0400 SaO2% (BldA) [Mass fraction] 92 % Monserrat Khoury PA-C Work Phone: [facility] 04-29-2024 14:01-0400 Systolic blood pressure 122 mm[Hg] Monserrat Khoury PA-C Work Phone: [facility] 02-27-2024 14:35-0400 Body mass index (BMI) [Ratio] 44.11 kg/m2 Jaime Spencer [employer] DIRECTOR.SENIOR INFRASTRUCTURE ARCHITECT Work Phone: [facility] 02-27-2024 14:35-0400 Body weight 116.57 kg Jaime Spencer [employer] DIRECTOR.SENIOR INFRASTRUCTURE ARCHITECT Work Phone: [facility] 02-27-2024 14:35-0400 Diastolic blood pressure 74 mm[Hg] Jaime Spencer [employer] DIRECTOR.SENIOR INFRASTRUCTURE ARCHITECT Work Phone: [facility] 02-27-2024 14:35-0400 Heart rate 73 /min Jaime Spencer [employer] DIRECTOR.SENIOR INFRASTRUCTURE ARCHITECT Work Phone: [facility] 02-27-2024 14:35-0400 Respiratory rate 16 /min Jaime Spencer [employer] DIRECTOR.SENIOR INFRASTRUCTURE ARCHITECT Work Phone: [facility] 02-27-2024 14:35-0400 Systolic blood pressure 111 mm[Hg] Jaime Spencer [employer] DIRECTOR.SENIOR INFRASTRUCTURE ARCHITECT Work Phone: [facility] 12-06-2023 14:50-0500 Body height 163.8 cm Pulm Wstr Work Phone: [facility] 12-06-2023 14:50-0500 Body weight 117.03 kg Pulm Wstr Work Phone: [facility] 12-06-2023 14:50-0500 Heart rate 76 /min Pulm Wstr Work Phone: [facility] 12-06-2023 14:50-0500 Respiratory rate 16 /min Pulm Wstr Work Phone: [facility] 12-06-2023 14:50-0500 SaO2% (BldA) [Mass fraction] 96 % Pulm Wstr Work Phone: [facility] 08-09-2023 14:00-0400 Body weight 113.85 kg Jaime Spencer [employer] DIRECTOR.SENIOR INFRASTRUCTURE ARCHITECT Work Phone: [facility] 08-09-2023 14:00-0400 Diastolic blood pressure 83 mm[Hg] Jaime Spencer [employer] DIRECTOR.SENIOR INFRASTRUCTURE ARCHITECT Work Phone: [facility] 08-09-2023 14:00-0400 Heart rate 78 /min Jaime Spencer [employer] DIRECTOR.SENIOR INFRASTRUCTURE ARCHITECT Work Phone: [facility] 08-09-2023 14:00-0400 Systolic blood pressure 113 mm[Hg] Jaime Spencer [employer] DIRECTOR.SENIOR INFRASTRUCTURE ARCHITECT Work Phone: [facility] 07-15-2023 02:40-0400 Diastolic Blood Pressure Non-Invasive [address] MORGAN BENJAMIN MD [facility] 07-15-2023 02:40-0400 Heart rate 92 /min DR MORGAN BENJAMIN MD [facility] 07-15-2023 02:40-0400 Reason For Taking VItal Signs DR MORGAN BENJAMIN MD [facility] 07-15-2023 02:40-0400 Respiratory rate 20 /min DR MORGAN BENJAMIN MD [facility] 07-15-2023 02:40-0400 Systolic Blood Pressure Non-Invasive [address] MORGAN BENJAMIN MD [facility] 07-15-2023 01:44-0400 Body temperature 97.88 [degF] DR MORGAN BENJAMIN MD [facility] 07-15-2023 01:44-0400 Diastolic Blood Pressure Non-Invasive [address] MORGAN BENJAMIN MD [facility] 07-15-2023 01:44-0400 Heart rate 100 /min DR MORGAN BENJAMIN MD [facility] 07-15-2023 01:44-0400 Respiratory rate 20 /min DR MORGAN BENJAMIN MD [facility] 07-15-2023 01:44-0400 Systolic Blood Pressure Non-Invasive [address] MORGAN BENJAMIN MD [facility] 07-12-2023 10:48-0400 Body temperature 97.3 [degF] Lala Older [employer] DIRECTOR.DIANETIC COUNSELOR Work Phone: [facility] 07-12-2023 10:48-0400 Body weight 114.13 kg Lala Older [employer] DIRECTOR.DIANETIC COUNSELOR Work Phone: [facility] 07-12-2023 10:48-0400 Diastolic blood pressure 74 mm[Hg] Lala Older [employer] C[employer] DIRECTOR.DIANETIC COUNSELOR Work Phone: [facility] 07-12-2023 10:48-0400 Heart rate 110 /min Lala Older [employer] DIRECTOR.DIANETIC COUNSELOR Work Phone: [facility] 07-12-2023 10:48-0400 Respiratory rate 16 /min Lala Older [employer] C[employer] DIRECTOR.DIANETIC COUNSELOR Work Phone: [facility] 07-12-2023 10:48-0400 SaO2% (BldA) [Mass fraction] 98 % Lala Older [employer] DIRECTOR.DIANETIC COUNSELOR Work Phone: [facility] 07-12-2023 10:48-0400 Systolic blood pressure 120 mm[Hg] Lala Older [employer] C[employer] DIRECTOR.DIANETIC COUNSELOR Work Phone: [facility] 06-29-2023 20:32-0400 Body temperature 98.6 [degF] DR BERMUDEZ VERONICAJOMAR DO [facility] 06-29-2023 20:32-0400 Diastolic Blood Pressure Non-Invasive [address] BERMUDEZ VERONICAJOMAR DO [facility] 06-29-2023 20:32-0400 Heart rate 87 /min DR BERMUDEZ VERONICAJOMAR DO [facility] 06-29-2023 20:32-0400 Respiratory rate 20 /min DR BERMUDEZ VERONICAJOMAR DO [facility] 06-29-2023 20:32-0400 Systolic Blood Pressure Non-Invasive [address] BERMUDEZ VERONICAJOMAR DO [facility] 05-23-2023 15:00-0400 Diastolic blood pressure 77 mm[Hg] Thom Golias PT Work Phone: [facility] 05-23-2023 15:00-0400 Heart rate 74 /min Thom Golias PT Work Phone: [facility] 05-23-2023 15:00-0400 Systolic blood pressure 120 mm[Hg] Thom Golias PT Work Phone: [facility] 03-26-2023 18:15-0400 Body temperature 97.59 [degF] Gavi Praisler-Wood [employer] DIRECTOR.DIANETIC COUNSELOR Work Phone: [facility] 03-26-2023 18:15-0400 Diastolic blood pressure 78 mm[Hg] Gavi Praisler-Wood [employer] DIRECTOR.DIANETIC COUNSELOR Work Phone: [facility] 03-26-2023 18:15-0400 Heart rate 88 /min Gavi Praisler-Wood [employer] DIRECTOR.DIANETIC COUNSELOR Work Phone: [facility] 03-26-2023 18:15-0400 Respiratory rate 16 /min Gavi Praisler-Wood [employer] DIRECTOR.DIANETIC COUNSELOR Work Phone: [facility] 03-26-2023 18:15-0400 SaO2% (BldA) [Mass fraction] 94 % Gavi Garcia-Saul [employer] DIRECTOR.DIANETIC COUNSELOR Work Phone: [facility] 03-26-2023 18:15-0400 Systolic blood pressure 128 mm[Hg] Gavi Garcia-Saul [employer] DIRECTOR.DIANETIC COUNSELOR Work Phone: [facility] 01-23-2023 19:15-0400 Body height 160 cm Monik Hackett MD Work Phone: [facility] 01-23-2023 19:15-0400 Body temperature 96.1 [degF] Monik Hackett MD Work Phone: [facility] 01-23-2023 19:15-0400 Body weight 116.12 kg Monik Hackett MD Work Phone: [facility] 01-23-2023 19:15-0400 Diastolic blood pressure 64 mm[Hg] Monik Hackett MD Work Phone: [facility] 01-23-2023 19:15-0400 Heart rate 81 /min Monik Hackett MD Work Phone: [facility] 01-23-2023 19:15-0400 Respiratory rate 16 /min Monik Hackett MD Work Phone: [facility] 01-23-2023 19:15-0400 SaO2% (BldA) [Mass fraction] 94 % Monik Hackett MD Work Phone: [facility] 01-23-2023 19:15-0400 Systolic blood pressure 118 mm[Hg] Monik Hackett MD Work Phone: [facility] 06-27-2022 16:54-0400 Body height 160 cm Monik Hackett MD Work Phone: [facility] 06-27-2022 16:54-0400 Body temperature 97 [degF] Monik Hackett MD Work Phone: [facility] 06-27-2022 16:54-0400 Body weight 119.75 kg Monik Hackett MD Work Phone: [facility] 06-27-2022 16:54-0400 Diastolic blood pressure 74 mm[Hg] Monik Hackett MD Work Phone: [facility] 06-27-2022 16:54-0400 Heart rate 74 /min Monik Hackett MD Work Phone: [facility] 06-27-2022 16:54-0400 Respiratory rate 16 /min Monik Hackett MD Work Phone: [facility] 06-27-2022 16:54-0400 SaO2% (BldA) [Mass fraction] 96 % Monik Hackett MD Work Phone: [facility] 06-27-2022 16:54-0400 Systolic blood pressure 124 mm[Hg] Monik Hackett MD Work Phone: [facility] 05-30-2022 16:20-0400 Body weight 122.92 kg Trixie Srinivasa [employer] DIRECTOR.DIANETIC COUNSELOR Work Phone: [facility] 05-30-2022 16:20-0400 Diastolic blood pressure 84 mm[Hg] Trixie Srinivasa [employer] DIRECTOR.DIANETIC COUNSELOR Work Phone: [facility] 05-30-2022 16:20-0400 Heart rate 74 /min Trixie Srinivasa [employer] DIRECTOR.DIANETIC COUNSELOR Work Phone: [facility] 05-30-2022 16:20-0400 Respiratory rate 16 /min Trixie Srinivasa [employer] DIRECTOR.DIANETIC COUNSELOR Work Phone: [facility] 05-30-2022 16:20-0400 SaO2% (BldA) [Mass fraction] 92 % Trixie Srinivasa [employer] DIRECTOR.DIANETIC COUNSELOR Work Phone: [facility] 05-30-2022 16:20-0400 Systolic blood pressure 136 mm[Hg] Trixie Srinivasa [employer] DIRECTOR.DIANETIC COUNSELOR Work Phone: [facility] Encounters Encounter Date Encounter Type Care Provider Facility Start: 07-20-2025 End: 07-20-2025 ambulatory MONIK HACKETT Facility:[facility] Start: 07-20-2025 End: 07-20-2025 ambulatory MONIK HACKETT Facility:[facility] Start: 06-14-2025 End: 06-14-2025 Refill Lala Harrison [employer] DIRECTOR.DIANETIC COUNSELOR Work Phone: [facility] [place] Comment on above: Med Change Request Start: 05-18-2025 End: 05-19-2025 Refill Monik Hackett MD Work Phone: [facility] [place] Comment on above: Refill Request Start: 05-07-2025 End: 05-07-2025 Refill Lala Harrison [employer] DIRECTOR.DIANETIC COUNSELOR Work Phone: [facility] [place] Comment on above: Med Change Request Start: 04-26-2025 End: 04-27-2025 Refill Monik Hackett MD Work Phone: [facility] [place] Comment on above: Refill Request Start: 04-19-2025 End: 06-19-2025 Follow-up encounter Lala Harrison APRN.DIANETIC COUNSELOR Work Phone: [facility] [place] Start: 04-16-2025 End: 04-16-2025 [facility] Facility:[facility] Start: 04-16-2025 End: 04-16-2025 Office outpatient visit 25 minutes Lala Harrison APRN.DIANETIC COUNSELOR Work Phone: [facility] [place] Comment on above: Dizziness (Primary D x); Tinnitus of both ears; Controlled type 2 diabetes mellitus without complication, with long-term current use of insulin ([facility]); Other chronic pain; Weight gain; Paresthesia of bilateral legs; Insomnia, unspecified type; Schizophrenia, unspecified type ([facility]); Panic disorder without agoraphobia; Medication management Start: 04-16-2025 End: 04-16-2025 [facility] Facility:[facility] Start: 04-12-2025 End: 04-12-2025 Telephone encounter Monik Hackett MD Work Phone: [facility] [place] Comment on above: Patient Update Start: 03-30-2025 End: 04-05-2025 Refill Monik Hackett MD Work Phone: [facility] [place] Comment on above: Refill Request Start: 03-24-2025 End: 03-25-2025 Refill Monik Hackett MD Work Phone: [facility] [place] Comment on above: Refill Request; de la paz sfer to new pharmacy since [facility] closing Start: 03-09-2025 End: 04-09-2025 ambulatory Monik Hackett MD Work Phone: [facility] [place] Start: 02-26-2025 End: 03-10-2025 Telephone encounter Monik Hackett MD Work Phone: [facility] [place] Comment on above: Order Request Start: 02-23-2025 End: 02-23-2025 Refill Monik Hackett MD Work Phone: [facility] [place] Comment on above: Refill Request Start: 02-08-2025 End: 02-10-2025 Refill Monik Hackett MD Work Phone: [facility] [place] Comment on above: Refill Request Start: 01-20-2025 End: 02-01-2025 Refill Lala Harrison APRN.CNP Work Phone: [facility] [place] Comment on above: Refill Request Start: 01-04-2025 End: 01-05-2025 Telephone encounter Monik Hackett MD Work Phone: [facility] [place] Comment on above: Refill Request; Medi cation Problem Refill Request Start: 12-07-2024 End: 12-08-2024 Refill Monik Hackett MD Work Phone: [facility] [place] Comment on above: Refill Request Start: 12-01-2024 End: 12-01-2024 Telephone encounter Monik Hackett MD Work Phone: [facility] [place] Comment on above: Patient Update Start: 11-11-2024 End: 11-13-2024 Telephone encounter Oscar GREEN Navigation Start: 11-10-2024 End: 11-10-2024 [facility] Facility:[facility] Start: 11-10-2024 End: 01-14-2025 [facility] Facility:[facility] Start: 11-10-2024 End: 11-10-2024 Office outpatient visit 25 minutes Jaime Spencer [employer] DIRECTOR.SENIOR INFRASTRUCTURE ARCHITECT Work Phone: [facility] [place] Comment on above: Panic disorder witho ut agoraphobia (Primary Dx); Moderate episode of recurrent major depressive disorder (HCC); Insomnia, unspecified type; Controlled type 2 diabetes mellitus without complication, with long-term current use of insulin (HCC); Burning sensation; Fibromyalgia; Other fatigue; Generalized pain Start: 11-03-2024 End: 11-04-2024 Refill Monik Hackett MD Work Phone: [facility] [place] Comment on above: Refill Request; Lab Orders Start: 09-22-2024 End: 09-25-2024 ambulatory Monik Hackett MD Work Phone: [facility] [place] [address] Start: 08-20-2024 End: 08-20-2024 Refill Monik Hackett MD Work Phone: [facility] [place] Comment on above: Refill Request Start: 08-11-2024 End: 08-12-2024 Refill Susan Lucia [employer] DIRECTOR.DIANETIC COUNSELOR Work Phone: [facility] [place] Comment on above: Refill Request Start: 06-26-2024 End: 06-26-2024 Refill Monik Hackett MD Work Phone: [facility] [place] Comment on above: Refill Request Start: 06-18-2024 End: 06-23-2024 Refill Lala Harrison APRN.DIANETIC COUNSELOR Work Phone: [facility] [place] Comment on above: Med Change Request Start: 06-12-2024 Refill Monik Burnette Work Phone: [facility] [place] Comment on above: Med Change Request Start: 06-11-2024 Refill Lala ReyesDIANETIC COUNSELOR Work Phone: [facility] [place] Comment on above: Refill Request Start: 06-01-2024 Refill Monik Burnette Work Phone: [facility] [place] Comment on above: Refill Request Start: 05-08-2024 Telephone encounter Jaime julian [employer] C[employer] DIRECTOR.SENIOR INFRASTRUCTURE ARCHITECT Work Phone: [facility] [place] Comment on above: Procedure Start: 05-06-2024 End: 05-06-2024 Patient encounter procedure Lala Yasmine [employer] CENTER DIRECTOR.DIANETIC COUNSELOR Work Phone: [facility] [place] Comment on above: Controlled type 2 di abetes mellitus without complication, with long-term current use of insulin (HCC) (Primary Dx); Chest pain, unspecified type; SOBOE (shortness of breath on exertion) Start: 04-29-2024 End: 04-29-2024 ambulatory Pulm Lab [facility] Work Phone: PULM LAB [facility] Comment on above: Spirometry Start: 04-29-2024 End: 04-29-2024 Patient encounter procedure Pulm Lab [facility] Work Phone: [facility] Comment on above: Mild persistent asth ma without complication (Primary Dx); SOB (shortness of breath); Hypoxemia; Morbid obesity (HCC) Start: 04-27-2024 Refill Jaime ORELLANAN.SENIOR INFRASTRUCTURE ARCHITECT Work Phone: [facility] [place] Comment on above: Refill Request Start: 04-08-2024 Refill Susan ORELLANAN.DIANETIC COUNSELOR Work Phone: [facility] [place] Comment on above: Refill Request Start: 2024 Telephone encounter Monik duncan MD Work Phone: [facility] [place] Comment on above: Insurance Authorizat ion (Veoz) Start: 03-12-2024 Refill Jaime Beasley PRN.SENIOR INFRASTRUCTURE ARCHITECT Work Phone: [facility] [place] Start: 02-27-2024 End: 02-27-2024 Office outpatient visit 25 minutes Jaime Spencer APRN.SENIOR INFRASTRUCTURE ARCHITECT Work Phone: [facility] [place] Comment [...] above: Orders Start: 02-13-2024 Refill Lala Harrison [employer] CENTER DIRECTOR .DIANETIC COUNSELOR Work Phone: [facility] [place] Comment on above: Refill Request Start: 02-06-2024 Refill Lala Harrison [employer]PPORT CENTER DIRECTOR .DIANETIC COUNSELOR Work Phone: [facility] [place] Comment on above: Refill Request Start: 01-24-2024 Refill Yasmine camacho [employer] CENTER DIRECTOR.DIANETIC COUNSELOR Work Phone: [facility] [place] Comment on above: Refill Request Start: 01-07-2024 Refill Jaime Spencer A PRN.SENIOR INFRASTRUCTURE ARCHITECT Work Phone: [facility] [place] Comment on above: Refill Request Start: 01-06-2024 Refill Susan Rea A PRN.DIANETIC COUNSELOR Work Phone: [facility] [place] Comment on above: Refill Request Start: 12-11-2023 Telephone encounter Yasmine Helene Arlin han [employer] CENTER DIRECTOR.DIANETIC COUNSELOR Work Phone: [facility] [place] Comment on above: Results Start: 12-10-2023 Refill Jaime Spencer A PRN.SENIOR INFRASTRUCTURE ARCHITECT Work Phone: [facility] [place] Comment on above: Refill Request Start: 12-09-2023 Telephone encounter Yasmine Narayan Arlin han [employer] CENTER DIRECTOR.DIANETIC COUNSELOR Work Phone: [facility] [place] Start: 12-07-2023 Refill Jaime Spencer A PRN.SENIOR INFRASTRUCTURE ARCHITECT Work Phone: [facility] [place] Comment on above: Refill Request Start: 12-06-2023 End: 12-06-2023 ambulatory Pulm Lab [facility] Work Phone: [facility] Comment on above: Spirometry Start: 12-06-2023 End: 12-06-2023 Patient encounter procedure Pulm Lab [facility] Work Phone: [facility] Start: 11-29-2023 Telephone encounter Monik duncan MD Work Phone: [facility] [place] Comment on above: DME for oxygen Start: 11-25-2023 End: 11-25-2023 Subsequent hospital visit by physician Xr [facility] Work Phone: Radiology Comment on above: Pain of right thumb [M79.644] Start: 11-04-2023 End: 11-04-2023 Subsequent hospital visit by physician Xr [facility] Work Phone: Radiology Comment on above: Acute cough [R05.1] Start: 10-03-2023 ambulatory Lala ReyesDIANETIC COUNSELOR Work Phone: [facility] [place] Comment on above: [facility] not filed my Rosuvastatin I requested on October 01 Refill Request Start: 10-01-2023 Refill Kelsi Alfred PA-C Work Phone: [facility] [place] Comment on above: Refill Request I Need A Pulse Oxime ter & Blood Pressure Cuff Meter Start: 09-30-2023 End: 09-30-2023 Emergency department patient visit [facility] Facility:[facility] Start: 08-27-2023 Telephone encounter Constancerd Humphries [facility] Work Phone: [facility] Comment on above: Missed Appointment Start: 08-21-2023 Refill Yasmine ReyesDIANETIC COUNSELOR Work Phone: [facility] [place] Comment on above: Refill Request Start: 08-13-2023 Telephone encounter Jaime julian [employer] CENTER DIRECTOR.SENIOR INFRASTRUCTURE ARCHITECT Work Phone: [facility] [place] Comment on above: Medication Problem Refill Request Start: 08-09-2023 End: 08-09-2023 Office outpatient visit 25 minutes Jaime Spencer APRN.SENIOR INFRASTRUCTURE ARCHITECT Work Phone: [facility] [place] Comment on above: NANCY positive (Primar y [...] department patient visit DR MORGAN BENJAMIN MD [facility] Start: 07-12-2023 End: 07-12-2023 Patient encounter procedure Lala Harrison APRN.DIANETIC COUNSELOR Work Phone: [facility] [place] Comment on above: Generalized pain (Pr imary Dx); Burning sensation; Weakness; Brain fog; Controlled type 2 diabetes mellitus without complication, with long-term current use of insulin (HCC); Fibromyalgia Start: 06-29-2023 End: 06-29-2023 Emergency department patient visit DR AIDAN ROBLES DO [facility] Start: 06-11-2023 Refill Lala ReyesDIANETIC COUNSELOR Work Phone: [facility] [place] Comment on above: Refill Request Start: 05-27-2023 End: 05-27-2023 ambulatory Ricardo Dinh [facility] Work Phone: [facility] Comment on above: Controlled type 2 di abetes mellitus without complication, with long-term current use of insulin (HCC) (Primary Dx) Start: 05-27-2023 End: 05-27-2023 Telemedicine consultation with patient Ricardo Dinh [facility] Work Phone: [facility] Start: 05-23-2023 End: 05-23-2023 OT/PT/Speech Visit Thom [facility]orado [facility] Comment on above: 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 (Primary Dx); Benign paroxysmal vertigo of both ears Start: 05-01-2023 ambulatory Monik Burnette Work Phone: [facility] [place] Start: 04-29-2023 Refill Monik Burnette Work Phone: [facility] Comment on above: Med Change Request Start: 04-19-2023 ambulatory No One (Historical) Ref erring Physician Start: 04-16-2023 ambulatory No Pcp (Historcal) Refe rring Physician Start: 04-15-2023 Telephone encounter Monik duncan MD Work Phone: [facility] [place] Comment on above: Insurance Authorizat ion Start: 04-14-2023 Refill Monik Burnette Work Phone: [facility] Comment on above: Med Change Request Start: 04-11-2023 End: 04-11-2023 Patient encounter procedure Fior Joseph [facility] Work Phone: [facility] Comment on above: Controlled type 2 di abetes mellitus without complication, with long-term current use of insulin (HCC) (Primary Dx); Medication management Refill Request Start: 03-26-2023 End: 03-26-2023 Subsequent hospital visit by physician Sushila [facility] Work Phone: Radiology Comment on above: Knee joint injury, i nitial encounter [S89.90XA] Start: 03-26-2023 End: 03-26-2023 Patient encounter procedure Gavigerald Norwood APRN.[facility] Work Phone: [place] [facility] Comment on above: Knee joint injury, i nitial encounter (Primary Dx) Start: 02-26-2023 Telephone encounter Monik duncan MD Work Phone: [facility] [place] Comment on above: Xray Results Start: 02-22-2023 End: 02-22-2023 Subsequent hospital visit by physician Sushila [facility] Work Phone: Radiology Comment on above: Chronic bilateral lo w back pain with bilateral sciatica [M54.42, M54.41, G89.29] Start: 01-31-2023 Telephone encounter Jess Perry [facility] Work Phone: Family Practice Comment on above: Appointment Start: 01-30-2023 Refill Monik Burnette Work Phone: [facility] [place] Comment on above: Refill Request Start: 01-23-2023 [...] Refill Monik Burnette Work Phone: [facility] [place] Comment on above: Refill Request Start: 12-21-2022 ambulatory Trixie martin APRN.DIANETIC COUNSELOR Work Phone: [facility] [place] Comment on above: Question regarding C BC Start: 11-26-2022 Refill Lala Older [employer] CENTER DIRECTOR .DIANETIC COUNSELOR Work Phone: [facility] [place] Comment on above: Refill Request Start: 11-12-2022 Refill Lala Older ACADEMIC SUPPORT CENTER DIRECTOR .DIANETIC COUNSELOR Work Phone: [facility] [place] Comment on above: Refill Request Start: 10-09-2022 End: 10-09-2022 Subsequent hospital visit by physician Sushila [facility] aNtalia Costa Work Phone: Radiology Comment on above: Hammertoe of left fo ot [M20.42] Start: 09-24-2022 Refill Lala Older AC[employer]IC SUPPORT CENTER DIRECTOR .DIANETIC COUNSELOR Work Phone: [facility] [place] Comment on above: Refill Request Start: 09-06-2022 Refill Trixie martin AC[employer]IC SUPPORT CENTER DIRECTOR.DIANETIC COUNSELOR Work Phone: [facility] [place] Comment on above: Refill Request Start: 08-20-2022 Refill Lala Older AC[employer] SUPPORT CENTER DIRECTOR .DIANETIC COUNSELOR Work Phone: [facility] [place] Comment on above: Refill Request Start: 07-25-2022 ambulatory No Pcp (Historical) Ref erring Physician Start: 07-17-2022 Refill Trixietremaine martin [employer] CENTER DIRECTOR.DIANETIC COUNSELOR Work Phone: [facility] [place] Comment on above: Refill Request Start: 07-03-2022 Refill Lalacarolyn Harrison AC[employer]PPORT CENTER DIRECTOR .DIANETIC COUNSELOR Work Phone: [facility] [place] Comment on above: Refill Request Start: 06-27-2022 End: 06-27-2022 Patient encounter procedure Monik Hackett MD Work Phone: [facility] [place] Comment on above: Pitted nails (Primar y Dx); Controlled type 2 diabetes mellitus without complication, with long-term current use of insulin (HCC); Mixed hyperlipidemia; Vitamin B12 deficiency Start: 05-30-2022 End: 05-30-2022 Office outpatient visit 40 minutes Trixie Gibson [employer] DIRECTOR.DIANETIC COUNSELOR Work Phone: [facility] [place] Comment on above: Onychomycosis (Prima ry Dx) Start: 05-23-2022 ambulatory Monik Burnette Work Phone: Internal Medicine [place] Start: 05-14-2022 Refill Lalacarolyn Harrison [employer] DIRECTOR .DIANETIC COUNSELOR Work Phone: Internal Medicine [place] Comment on above: Refill Request Start: 05-05-2022 Refill Lala Harrison [employer] DIRECTOR .DIANETIC COUNSELOR Work Phone: Internal Medicine [place] Comment on above: Refill Request Start: 03-14-2022 ambulatory Trixie martin [employer] DIRECTOR.DIANETIC COUNSELOR Work Phone: [facility] [place] Comment on above: IRON, COMPREHENSIVE METABOLIC PANEL, A1C Start: 03-13-2022 ambulatory Trixie martin [employer] DIRECTOR.DIANETIC COUNSELOR Work Phone: [facility] [place] Comment on above: TOE NAILS Start: 02-09-2022 Refill Lalacarolyn Harrison [employer] DIRECTOR .DIANETIC COUNSELOR Work Phone: Internal Medicine [place] Comment on above: Refill Request Procedures Date Procedure Procedure Detail Performing Clinician Start: 04-29-2024 Nitric oxide gas determination Camila Johns MD Work Phone: Start: 12-06-2023 Noninvasive ear/puls e oximetry teddy Martinez [employer] DIRECTOR.DIANETIC COUNSELOR Work Phone: Start: 12-06-2023 Plethysmography lung volumes w/wo airway resist Yasmine Martinez [employer] DIRECTOR.DIANETIC COUNSELOR Work Phone: Start: 11-25-2023 Radex fingr minimum 2 views Gavi Norwood [employer] DIRECTOR.DIANETIC COUNSELOR Work Phone: Start: 11-04-2023 Radiologic exam ches t 2 views Yasmine Webbr [employer] DIRECTOR.DIANETIC COUNSELOR Work Phone: Start: 08-09-2023 INFLUENZA VACCINE, A GE 6 MO - 64 YR, QUADRIVALENT (AFLURIA, FLULAVAL, FLUZONE) Jaime Spencer [employer] DIRECTOR.SENIOR INFRASTRUCTURE ARCHITECT Work Phone: Start: 07-12-2023 Urnls dip stick/tabl et rgnt auto w/o microscopy Lala Older [employer] DIRECTOR.DIANETIC COUNSELOR Work Phone: Start: 07-12-2023 Hemoglobin A1c/Hemoglobin.total in Blood Lala Older [employer] DIRECTOR.DIANETIC COUNSELOR Work Phone: Start: 03-26-2023 Radiologic exam knee complete 4/more views Gavi Norwood [employer] DIRECTOR.DIANETIC COUNSELOR Work Phone: Start: 02-22-2023 Radex spine lumbosac ral 2/3 views Monik Hackett MD Work Phone: Start: 10-09-2022 Radex foot complete minimum 3 views Narendra Turner Work Phone: Start: 05-20-2006 Mammography Lala Older [employer] DIRECTOR.DIANETIC COUNSELOR Work Phone: Abdominal hysterectomy DR RANDALL BENJAMIN MD History of right tot al knee replacement DR MORGAN BENJAMIN MD Tonsillectomy DR MORGAN BENJAMIN MD Plan of Treatment Date Care Activity Detail Author Start: 10-02-2031 Urine microalbumin profile [facility] Start: 04-17-2026 Hepatitis B screening Urine Albumin:Creatinine Ratio [facility] Start: 04-16-2026 Annual PCP Team Chronic Disease Visit Annual PCP Team Chronic Disease Visit [facility] Start: 11-10-2025 Hepatitis B surface antibody level LDL Cholesterol [facility] Start: 10-16-2025 Hemoglobin A1c measurement HbA1C [facility] Start: 06-28-2025 Influenza vaccination [facility] Start: 06-25-2025 End: 06-25-2025 Patient encounter procedure 06/25/2025 4:20 PM EDT Office Visit Internal Medicine [place] [address] [facility] [place] [address] Monik Hackett MD [address] [facility] [place] [address] follow up Internal Medicine [place] Comment on above: follow up Start: 05-10-2025 Hemoglobin A1c measurement HbA1C [facility] Start: 05-06-2025 Annual PCP Team Chronic Disease Visit Annual PCP Team Chronic Disease Visit [facility] Start: 04-20-2025 End: 04-20-2025 Patient encounter procedure 04/20/2025 2:40 PM EDT Office Visit Internal Medicine [place] [address] [place] [address] Monik Hackett MD [address] [facility] [place] [address] follow up Internal Medicine [place] Comment on above: follow up Start: 04-16-2025 End: 07-16-2025 Cobalamin (Vitamin B12) [Mass/volume] in Serum or Plasma [facility] Comment on above: Expected: 04/16/2025, Expires: Start: 04-16-2025 End: 07-16-2025 Comprehensive metabolic 2000 panel - Serum or Plasma [facility] Comment on above: Expected: 04/16/2025, Expires: Start: 04-16-2025 End: 07-16-2025 Cortisol [Mass/volume] in Serum or Plasma [facility] Comment on above: Expected: 04/16/2025, Expires: Start: 04-16-2025 End: 07-16-2025 Hemoglobin A1c in Blood [facility] Work Phone: Comment on above: Expected: 04/16/2025, Expires: Start: 04-16-2025 End: 07-16-2025 Microalbumin/Creatinine [Mass Ratio] in Urine ALBUMIN/CREATININE RATIO, URINE Lab Routine Controlled type 2 diabetes mellitus without complication, with long-term current use of insulin (HCC) Expected: 04/16/2025, Expires: 07/16/2025 [facility] Comment on above: Expected: 04/16/2025, Expires: Start: 04-16-2025 End: 07-16-2025 Thyrotropin [Units/volume] in Serum or Plasma [facility] Comment on above: Expected: 04/16/2025, Expires: Start: 04-16-2025 End: 07-16-2025 Thyroxine (T4) free [Mass/volume] in Serum or Plasma [facility] Comment on above: Expected: 04/16/2025, Expires: Start: 04-16-2025 End: 07-16-2025 Triiodothyronine (T3) Free [Mass/volume] in Serum or Plasma [facility] Comment on above: Expected: 04/16/2025, Expires: Start: 04-16-2025 End: 07-16-2025 Urinalysis complete panel - Urine URINALYSIS (WITH MICROSCOPIC) WITH CULTURE IF INDICATED Lab Routine Dizziness Tinnitus of both ears Controlled type 2 diabetes mellitus without complication, with long-term current use of insulin (HCC) Weight gain Paresthesia of bilateral legs Expected: 04/16/2025, Expires: 07/16/2025 [facility] Comment on above: Expected: 04/16/2025, Expires: Start: 04-16-2025 End: 04-16-2025 Patient encounter procedure 04/16/2025 8:00 AM EDT Office Visit Internal Medicine [place] [address] [place], [place] [address] Monik Hackett MD [address] [place], [place] [id number] Generalized Weakness, fatigue, irritable. SEE TE. Internal Medicine [place] Comment on above: Generalized Weakness, fatigue, irritable . SEE TE. Start: 03-19-2025 End: 03-19-2025 Patient encounter procedure 03/19/2025 4:20 PM EDT Office Visit Internal Medicine [place] [address] [place] [address] Monik Hackett MD [address] [place] [address] follow up Internal Medicine [place] Comment on above: follow up Start: 02-05-2025 End: 02-05-2025 Patient encounter procedure 02/05/2025 4:20 PM EDT Office Visit Internal Medicine [place] [address] [place] [address] Monik Hackett MD [address] [place] [address] follow up Internal Medicine [place] Comment on above: follow up Start: 12-15-2024 End: 12-15-2024 Patient encounter procedure 12/15/2024 2:40 PM EST Office Visit Internal Medicine [place] [address] [place] [address] Monik Hackett MD [address] [place] [address] follow up Internal Medicine [place] Comment on above: follow up Start: 11-10-2024 End: 02-09-2025 25-hydroxyvitamin D3 [Mass/volume] in Serum or Plasma [facility] Comment on above: Expected: 11/10/2024, Expires: Start: 11-10-2024 End: 02-09-2025 CBC W Auto Differential panel - Blood [facility] Work Phone: Comment on above: Expected: 11/10/2024, Expires: Start: 11-10-2024 End: 02-09-2025 Cobalamin (Vitamin B12) [Mass/volume] in Serum or Plasma [facility] Comment on above: Expected: 11/10/2024, Expires: Start: 11-10-2024 End: 02-09-2025 Comprehensive metabolic 2000 panel - Serum or Plasma [facility] Comment on above: Expected: 11/10/2024, Expires: Start: 11-10-2024 End: 02-09-2025 Ferritin [Mass/volume] in Serum or Plasma [facility] Comment on above: Expected: 11/10/2024, Expires: Start: 11-10-2024 End: 02-09-2025 Iron and Iron binding capacity panel - Serum or Plasma [facility] Comment on above: Expected: 11/10/2024, Expires: Start: 11-10-2024 End: 02-09-2025 Thyrotropin [Units/volume] in Serum or Plasma [facility] Comment on above: Expected: 11/10/2024, Expires: Start: 11-06-2024 End: 11-06-2024 Patient encounter procedure 11/06/2024 1:40 PM EST Office Visit Internal Medicine [place] [address] [place] [address] Lala Harrison APRN.DIANETIC COUNSELOR [address] [place] [address] fatigue Internal Medicine [place] Comment on above: fatigue Start: 11-04-2024 Annual PCP Team Chronic Disease Visit Annual PCP Team Chronic Disease Visit [facility] Start: 11-04-2024 Hepatitis B surface antibody level LDL Cholesterol [facility] Start: 10-05-2024 End: 10-05-2024 Patient encounter procedure 10/05/2024 3:00 PM EST Office Visit Internal Medicine [place] [address] [place] [address] Lala Harrison APRN.DIANETIC COUNSELOR [address] [place] [address] fatigue Internal Medicine [place] Comment on above: fatigue Start: 09-23-2024 End: 09-23-2024 Patient encounter procedure 09/23/2024 3:00 PM EST Office Visit Pulmonary Medicine [address] [place] [address] Monserrat Khoury PAGerri [address] [facility] [place] [address] 3 MTH F/U ASTHMA Pulmonary Medicine Comment on above: 3 MTH F/U ASTHMA Start: 09-22-2024 End: 12-22-2024 Hemoglobin A1c in Blood HEMOGLOBIN A1C Lab Routine Controlled type 2 diabetes mellitus without complication, with long-term current use of insulin (HCC) Expected: 09/22/2024, Expires: 12/22/2024 [facility] Comment on above: Expected: 09/22/2024, Expires: Start: 09-22-2024 End: 12-22-2024 Lipid 1996 panel - Serum or Plasma LIPID PANEL BASIC Lab Routine Medication management Expected: 09/22/2024, Expires: 12/22/2024 [facility] Comment on above: Expected: 09/22/2024, Expires: Start: 09-22-2024 End: 12-22-2024 Microalbumin/Creatinine [Mass Ratio] in Urine ALBUMIN/CREATININE RATIO, URINE Lab Routine Controlled type 2 diabetes mellitus without complication, with long-term current use of insulin (HCC) Expected: 09/22/2024, Expires: 12/22/2024 [facility] Work Phone: Comment on above: Expected: 09/22/2024, Expires: Start: 08-29-2024 Hemoglobin A1c measurement HbA1C [facility] Start: 08-28-2024 End: 08-28-2024 Patient encounter procedure 08/28/2024 3:00 PM EDT Office Visit Neurology [address] [place] [address] Vicky Ga, JENN.DIANETIC COUNSELOR [address] [place] [address] [facility] Neurology Comment on above: SLEEP APNEA Start: 08-19-2024 End: 08-19-2024 Patient encounter procedure 08/19/2024 6:00 PM EDT Office Visit Internal Medicine [place] [address] [place] [address] Lala Harrison APRN.DIANETIC COUNSELOR [address] [place] [address] This is a follow up from last appt with Lala Harrison. Internal Medicine [place] Comment on above: This is a follow up from last appt with Llaa Harrison. Start: 08-09-2024 Hepatitis B screening Urine Albumin:Creatinine Ratio [facility] Start: 07-29-2024 End: 07-29-2024 Patient encounter procedure 07/29/2024 6:00 PM EDT Office Visit Internal Medicine [place] [address] [place] [address] Lala Harrison APRN.DIANETIC COUNSELOR [address] [place] [address] This is a follow up from last appt with Lala Harrison. Internal Medicine [place] Comment on above: This is a follow up from last appt with Lala Harrison. Start: 07-12-2024 Annual PCP Team Chronic Disease Visit Annual PCP Team Chronic Disease Visit [facility] Start: 07-12-2024 Hepatitis B surface antibody level LDL Cholesterol [facility] Start: 07-07-2024 End: 07-07-2024 ambulatory 07/07/2024 1:00 PM EDT Education Endocrinology [address] [place] [address] [place] [address] [place] [address] [phone] Endocrinology Comment on above: [phone] Start: 06-28-2024 Covid-19 Vaccine ( season) Covid-19 Vaccine () [facility] Start: 06-28-2024 Covid-19 Vaccine () Covid-19 Vaccine ( season) [facility] Start: 06-28-2024 Influenza vaccination Influenza Vaccine (#1) [facility] Start: 06-26-2024 End: 06-26-2024 Patient encounter procedure 06/26/2024 1:20 PM EDT Office Visit Internal Medicine [place] [address] [facility] [place] [address] Lala Harrison APRN.DIANETIC COUNSELOR [address] [facility] [place] [address] 4 wk f/u Internal Medicine [place] Comment on above: 4 wk f/u Start: 06-18-2024 End: 09-17-2024 25-hydroxyvitamin D3 [Mass/volume] in Serum or Plasma VITAMIN D 25 HYDROXY Lab Routine Vitamin D deficiency Expected: 06/18/2024, Expires: 09/17/2024 [facility] Work Phone: Comment on above: Expected: 06/18/2024, Expires: Start: 06-17-2024 End: 06-17-2024 Patient encounter procedure 06/17/2024 5:00 PM EDT Office Visit Internal Medicine [place] [address] [place] [address] Lala Harrison APRN.DIANETIC COUNSELOR [address] [facility] [place], [place] [address] 4 wk f/u Internal Medicine [place] Comment on above: 4 wk f/u Start: 05-15-2024 End: 05-15-2024 Patient encounter procedure 05/15/2024 8:30 AM EDT Appointment [facility] Cardiology [address] [facility] [place] [address] Chest pain, unspecified type [R07.9]; SOBOE (shortness of breath on exertion) [R06.02 [facility] Comment on above: Chest pain, unspecified type [R07.9]; SO MARIELY (shortness of breath on exertion) [R06.02 Start: 05-06-2024 End: 05-06-2024 Patient encounter procedure 05/06/2024 5:00 PM EDT Office Visit Internal Medicine [place] [address] [place] [address] Lala Harrison APRN.DIANETIC COUNSELOR [address] [place] [address] 6 month follow up Internal Medicine [place] Comment on above: 6 month follow up Start: 05-04-2024 Hemoglobin A1c measurement HbA1C [facility] Start: 04-29-2024 End: 04-29-2024 Patient encounter procedure 04/29/2024 1:30 PM EDT Office Visit Pulmonary Medicine [address] [place] [address] Monserrat Khoury, PA-C [address] [facility] [address] 3 MTH F/U ASTHMA Pulmonary Medicine Comment on above: 3 MTH F/U ASTHMA Start: 04-29-2024 End: 04-29-2024 ambulatory 04/29/2024 1:15 PM EDT Procedure PULM [facility] [address] [place] [address] [facility], Pul[facility] [address] [place] [address] 3 MTH F/U ASTHMA PULM [facility] Comment on above: 3 MTH F/U ASTHMA Start: 04-27-2024 End: 04-27-2024 Patient encounter procedure 04/27/2024 3:30 PM EDT Office Visit Neurology [address] [place] [address] Vicky Ga APRN.DIANETIC COUNSELOR [address] [place] [address] [facility] Neurology Comment on above: SLEEP APNEA Start: 04-27-2024 Hzv zoster vacc recombinant adjuvanted im njx ZOSTER VACCINE, RECOMBINANT (SHINGRIX) Immunization/Injection Routine Encounter for immunization Expected: 04/27/2024 [facility] Comment on above: Expected: 04/27/2024 Start: 03-30-2024 End: 03-30-2024 Patient encounter procedure 03/30/2024 2:20 PM EDT Office Visit Internal Medicine [place] [address] [place] [address] Jaime Spencer APRN.SENIOR INFRASTRUCTURE ARCHITECT [address] [place] [address] follow up Internal Medicine [place] Comment on above: follow up Start: 03-20-2024 End: 03-20-2024 Patient encounter procedure 03/20/2024 1:50 PM EDT Office Visit Cardiology [address] [place] [address] Hypoxemia [R09.02] Cardiology Comment on above: Hypoxemia [R09.02] Start: 02-27-2024 End: 05-28-2024 Hemoglobin A1c in Blood [facility] Comment on above: Expected: 02/27/2024, Expires: Start: 02-23-2024 ANNUAL PCP TEAM CHRONIC DISEASE VISIT ANNUAL PCP TEAM CHRONIC DISEASE VISIT [facility] Start: 02-21-2024 Hepatitis B surface antibody level LDL CHOLESTEROL [facility] Start: 01-24-2024 ANNUAL PCP TEAM CHRONIC DISEASE VISIT ANNUAL PCP TEAM CHRONIC DISEASE VISIT [facility] Start: 11-09-2023 End: 01-09-2024 Hemoglobin A1c in Blood HGB A1C Lab Routine Controlled type 2 diabetes mellitus without complication, with long-term current use of insulin (HCC) Expected: 11/09/2023 (Approximate), Expires: 01/09/2024 [facility] Work Phone: Comment on above: Expected: 11/09/2023 (Approximate), Expi res: 01/09/2024 Start: 10-11-2023 Hemoglobin A1c/Hemoglobin.total in Blood HbA1C [facility] Start: 08-22-2023 Hemoglobin A1c/Hemoglobin.total in Blood HBA1C [facility] Start: 08-09-2023 End: 10-09-2023 ALBUMIN/CREAT RATIO RND UR [facility] Work Phone: Comment on above: Expected: 08/09/2023, Expires: Start: 07-31-2023 Glaucoma screening Dilated Retinal Exam [facility] Start: 07-31-2023 Hepatitis C antibody, confirmatory test DILATED RETINAL EXAM [facility] Start: 07-12-2023 End: 09-11-2023 NANCY BY IFA SCREEN [facility] Work Phone: Comment on above: Expected: 07/12/2023, Expires: 3 Start: 07-12-2023 End: 09-11-2023 C reactive protein [Mass/volume] in Serum or Plasma [facility] Work Phone: Comment on above: Expected: 07/12/2023, Expires: 3 Start: 07-12-2023 End: 09-11-2023 Cobalamin (Vitamin B12) [Mass/volume] in Serum or Plasma [facility] Work Phone: Comment on above: Expected: 07/12/2023, Expires: 3 Start: 07-12-2023 End: 09-11-2023 Magnesium [Mass/volume] in Serum or Plasma [facility] Work Phone: Comment on above: Expected: 07/12/2023, Expires: 3 Start: 07-12-2023 End: 09-11-2023 Rheumatoid factor [Units/volume] in Serum or Plasma [facility] Work Phone: Comment on above: Expected: 07/12/2023, Expires: 3 Start: 07-12-2023 End: 09-11-2023 Thyroxine (T4) free [Mass/volume] in Serum or Plasma [facility] Work Phone: Comment on above: Expected: 07/12/2023, Expires: 3 Start: 06-28-2023 Covid-19 Vaccine () Covid-19 Vaccine () [facility] Start: 06-28-2023 Influenza vaccination [facility] Start: 06-27-2023 ANNUAL PCP TEAM CHRONIC DISEASE VISIT ANNUAL PCP TEAM CHRONIC DISEASE VISIT [facility] Start: 06-27-2023 BP CONTROLLED (<130/80) BP CONTROLLED (<130/80) [facility] Start: 05-30-2023 ANNUAL PCP TEAM CHRONIC DISEASE VISIT ANNUAL PCP TEAM CHRONIC DISEASE VISIT [facility] Start: 04-10-2023 Hepatitis B surface antibody level LDL CHOLESTEROL [facility] Start: 03-20-2023 Hepatitis C antibody, confirmatory test DILATED RETINAL EXAM [facility] Start: 12-24-2022 End: 02-23-2023 25-hydroxyvitamin D3 [Mass/volume] in Serum or Plasma VITAMIN D 25 HYDROXY Lab Routine Vitamin D deficiency Expected: 12/24/2022, Expires: 02/23/2023 [facility] Work Phone: Comment on above: Expected: 12/24/2022, Expires: 3 Start: 12-24-2022 End: 02-23-2023 Cobalamin (Vitamin B12) [Mass/volume] in Serum or Plasma VITAMIN B12 BLOOD Lab Routine Vitamin B12 deficiency Expected: 12/24/2022, Expires: 02/23/2023 [facility] Work Phone: Comment on above: Expected: 12/24/2022, Expires: 3 Start: 10-10-2022 Hemoglobin A1c/Hemoglobin.total in Blood HBA1C [facility] Start: 10-02-2022 ANNUAL PCP TEAM CHRONIC DISEASE VISIT ANNUAL PCP TEAM CHRONIC DISEASE VISIT [facility] Start: 10-02-2022 BP CONTROLLED (<130/80) BP CONTROLLED (<130/80) [facility] in Start: 10-02-2022 Hepatitis B screening URINE ALBUMIN:CREATININE RATIO [facility] Start: 10-02-2022 Hepatitis B surface antibody level LDL CHOLESTEROL [facility] Start: 10-02-2022 PNEUMOCOCCAL (2 - PCV) PNEUMOCOCCAL (2 - PCV) [facility] Start: 10-02-2022 Pneumococcal vaccination Pneumococcal Vaccine (2 - PCV) [facility] Start: 08-30-2022 End: 10-30-2022 Hepatic function 2000 panel - Serum or Plasma HEPATIC FUNCTION PNL Lab Routine Onychomycosis Expected: 08/30/2022, Expires: 10/30/2022 [facility] Work Phone: Comment on above: Expected: 08/30/2022, Expires: 3 Start: 06-28-2022 Influenza vaccination INFLUENZA (#1) [facility] Start: 06-27-2022 End: 08-27-2022 Cobalamin (Vitamin B12) [Mass/volume] in Serum or Plasma VITAMIN B12 BLOOD Lab Routine Vitamin B12 deficiency Expected: 06/27/2022, Expires: 08/27/2022 [facility] Work Phone: Comment on above: Expected: 06/27/2022, Expires: 2 Start: 12-26-2021 COVID-19 VACCINE (3 - Booster for Pfizer series) COVID-19 VACCINE (3 - Booster for Pfizer series) [facility] Start: 12-24-2021 Hemoglobin A1c/Hemoglobin.total in Blood HBA1C [facility] Start: 12-12-2021 Hepatitis C antibody, confirmatory test DILATED RETINAL EXAM [facility] Start: 09-22-2021 COVID-19 VACCINE (3 - Booster for Pfizer series) COVID-19 VACCINE (3 - Booster for Pfizer series) [facility] Start: 09-22-2021 COVID-19 VACCINE (3 - Pfizer series) COVID-19 VACCINE (3 - Pfizer series) [facility] Start: 09-15-2021 BP CONTROLLED (<130/80) BP CONTROLLED (<130/80) [facility] in[facility] Start: 2021 Hepatitis B Vaccine (1 of 3 - Risk 3-dose series) Hepatitis B Vaccine (1 of 3 - Risk 3-dose series) [facility] Start: 2021 RSV Vaccine (1 - 1-dose 60+ series) RSV Vaccine (1 - 1-dose 60+ series) [facility] Start: 2021 RSV Vaccine (1 - Risk 60-74 years 1-dose series) RSV Vaccine (1 - Risk 60-74 years 1-dose series) [facility] Start: 2011 SHINGRIX VACCINE (1 of 2) SHINGRIX VACCINE (1 of 2) [facility] Start: 05-20-2007 Mammography [facility] Start: 05-20-2007 Screening for malignant neoplasm of breast Mammogram Screening [facility] Start: 2006 COLOGUARD (FIT-DNA) COLOGUARD (FIT-DNA) [facility] Start: 2006 Colonoscopy COLONOSCOPY [facility] Start: 2006 COLORECTAL CANCER SCREENING COLORECTAL CANCER SCREENING [facility] Start: [address] COLONOGRAPHY [facility] Start: 2006 FECAL OCCULT BLOOD FECAL OCCULT BLOOD [facility] Start: 2006 Screening for malignant neoplasm of colon [facility] Start: 2006 SIGMOIDOSCOPY SIGMOIDOSCOPY [facility] Start: 2003 PAP TESTING PAP TESTING [facility] Start: 1991 HPV TESTING HPV TESTING [facility] Start: 1991 Screening for malignant neoplasm of cervix HPV Testing [facility] Start: 1982 PAP TESTING PAP TESTING [facility] Start: 1982 Screening for malignant neoplasm of cervix [facility] Start: 1971 3 comp foot exam completed DIABETIC FOOT EXAM [facility] Start: 1971 Diabetic foot examination Diabetic Foot Exam [facility] End: 12-24-2023 CBC panel - Blood by Automated count CBC Lab Routine Controlled type 2 diabetes mellitus without complication, with long-term current use of insulin (HCC) Every 6 months for 12 Occurrences starting 12/24/2022 until 12/24/2023 [facility] Work Phone: Comment on above: Every 6 months for 12 Occurrences starti ng 12/24/2022 until 12/24/2023 End: 12-24-2023 Comprehensive metabolic 2000 panel - Serum or Plasma COMP METABOLIC PANEL Lab Routine Controlled type 2 diabetes mellitus without complication, with long-term current use of insulin (HCC) Every 6 months for 12 Occurrences starting 12/24/2022 until 12/24/2023 [facility] Work Phone: Comment on above: Every 6 months for 12 Occurrences starti ng 12/24/2022 until 12/24/2023 End: 05-08-2025 DBT Breast - bilateral screening ALTHEA SCREENING W CORIN Radiology Routine Encounter for screening mammogram for breast cancer 1 Occurrences starting 04/08/2024 until 05/08/2025 [facility] Work Phone: Comment on above: 1 Occurrences starting 04/08/2024 until 05/08/2025 End: 04-08-2026 DBT Breast - bilateral screening ALTHEA SCREENING W CORIN Radiology Routine Encounter for screening mammogram for breast cancer 1 Occurrences starting 03/09/2025 until 04/08/2026 [facility] Work Phone: Comment on above: 1 Occurrences starting 03/09/2025 until 04/08/2026 ECG COMPLETE ECG COMPLETE ECG Routine Chest pain, unspecified type Ordered: 02/27/2024 [facility] Comment on above: Ordered: 02/27/2024 End: 02-26-2025 Echocardiography ECHO Cardiology Routine Hypoxemia 1 Occurrences starting 02/27/2024 until 02/26/2025 [facility] Work Phone: Comment on above: 1 Occurrences starting 02/27/2024 until 02/26/2025 End: 12-24-2023 Hemoglobin A1c in Blood HGB A1C Lab Routine Controlled type 2 diabetes mellitus without complication, with long-term current use of insulin (HCC) Every 3 months for 24 Occurrences starting 12/24/2022 until 12/24/2023 [facility] Work Phone: Comment on above: Every 3 months for 24 Occurrences starti ng 12/24/2022 until 12/24/2023 Hzv zoster vacc recombinant adjuvanted im njx ZOSTER VACCINE, RECOMBINANT (SHINGRIX) Immunization/Injection Routine Encounter for immunization 1 Occurrences starting 02/27/2024 [facility] Work Phone: Comment on above: 1 Occurrences starting 02/27/2024 End: 12-24-2023 Lipid 1996 panel - Serum or Plasma LIPID PANEL BASIC Lab Routine Controlled type 2 diabetes mellitus without complication, with long-term current use of insulin (HCC) Every 6 months for 12 Occurrences starting 12/24/2022 until 12/24/2023 [facility] Work Phone: Comment on above: Every 6 months for 12 Occurrences starti ng 12/24/2022 until 12/24/2023 LUNG DIFFUSION CAPAC ITY (DLCO) LUNG DIFFUSION CAPACITY (DLCO) PFT Routine Shortness of breath 12/06/2023 2:01 PM EST [facility] Work Phone: LUNG VOLUMES LUNG VOLUMES PFT Routine Shortness of breath 12/06/2023 2:01 PM EST [facility] Work Phone: End: 05-30-2024 ALTHEA SCREENING ALTHEA SCREENING Radiology Routine Encounter for screening mammogram for breast cancer 1 Occurrences starting 05/01/2023 until 05/30/2024 [facility] Work Phone: Comment on above: 1 Occurrences starting 05/01/2023 until 05/30/2024 PFIZER-BIONTECH COVI D-19 VACCINE ( SEASON) AGE 12+ YR PFIZER-BIONTECH COVID-19 VACCINE ( SEASON) AGE 12+ YR Immunization/Injection Routine Encounter for immunization 1 Occurrences starting 02/27/2024 [facility] Comment on above: 1 Occurrences starting 02/27/2024 PT PLAN OF CARE CERTIFICATION PT PLAN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 Comments Hallucinations Metformin Diarrhea Neurontin [...] DM - Controlled E11.9 Insulin: Yes Insulin [place], Disposable, (BD ULTRAFINE III MINI PEN) 31 [...] by mouth daily at bedtime. PULSE OX[facility]ETER [facility] Use as needed to monitor oxygen level [...] today and follow-up in 1 month with irene. Jaime Spencer APRN.CNS Medical Decision Making: Problems: Moderate: 1+ chronic illnesses with change Risk: Moderate: Drug management Medical Decision Making Level: 4 - Moderate documented in this encounter [facility] 11-10-2024 Note HNO ID: [id number] Author: JAIME SPENCER APRN.CNS Service: ? Author Type: Nurse Specialist Type: [...] Diarrhea Haldol [Haloperidol] Other: See Comments Headache/hallucinations [place] Other: See Comments Hallucinations Metformin Diarrhea Neurontin [...] DM - Controlled E11.9 Insulin: Yes Insulin [place], Disposable, (BD ULTRAFINE III MINI PEN) 31 [...] day. albuterol H (more content not included)... [facility] 11-04-2024 Telephone encounter Note Called pt and notified not to get labwork drawn tomorrow. Explained to pt that Lala Harrison wants to see her and talk things over with her before she decides on what labs she wants to order for the patient. [facility] 11-04-2024 Miscellaneous Notes Called pt and notified not to get labwork drawn tomorrow. Explained to pt that Lala Hrarison wants to see her and talk things over with her before she decides on what labs she wants to order for the patient. Blood work will be ordered at appointment so all indicated diagnostics can be discussed and ordered. Thank you Lala Harrison APRN.MICHAEL Called and spoke with pt. Moved pt's [...] for any refills. Thank you Lala Harrison APRN.MICHAEL The patient has been identified by name [...] DM - Controlled E11.9 Insulin: Yes Insulin [place], Disposable, (BD ULTRAFINE III MINI PEN) 31 gauge x 3/16 100 Each 3 Si Each two times a day. Gely Mckeon RN documented in this encounter [facility] 11-04-2024 Telephone encounter Note Blood work will be ordered at appointment so all indicated diagnostics can be discussed and ordered. Thank you Lala Harrison APRN.CNP [facility] 11-04-2024 Telephone encounter Note Called and [...] orders pended with dx code unspecified fatigue. [facility] 11-04-2024 Telephone encounter Note Patient has not been seen in 6 months so unable to refill lyrica. She needs seen for any refills. Thank you Lala Harrison APRN.CNP [facility] 11-03-2024 Telephone encounter Note The patient [...] DM - Controlled E11.9 Insulin: Yes Insulin [place], Disposable, (BD ULTRAFINE III MINI PEN) 31 gauge x 3/16 100 Each 3 Si Each two times a day. Gely Mckeon RN [facility] 09-22-2024 Note Patient Outreach (IN [facility]) IRMA STEWART ([id number]) 1960 F Date Time Provider Department 09/22/24 [...] Date Reviewed: 04/29/2024 Reviewed by: Ashley Venegas APRN.DIANETIC COUNSELOR - Fully Assessed Visit Diagnoses:Controlled type 2 diabetes mellitus without complication, with long-term current use of insulin (HCC) [E11.9, Z79.4] Medication management [Z79.899] Order(s):ALBUMIN/CREATININE RATIO, URINE [SQUACR] Order #: [id number] FUTURE HEMOGLOBIN A1C [JEFYD1G] Order #: [id number] FUTURE LIPID PANEL BASIC [SQLIPB] Order #: [id number] FUTURE Prescriptions as of 09/25/2024 - oxybutynin [...] times a day with meals. - Insulin [place], Disposable, (BD ULTRAFINE III MINI PEN) 31 [...] both ears [H81. (more content not included)... [facility] 08-20-2024 Telephone encounter Note The patient [...] Lowery RN August 20, 2024 1:29 PM [facility] 08-20-2024 Miscellaneous Notes The patient has [...] 2024 1:29 PM documented in this encounter [facility] 08-12-2024 Telephone encounter Note Patient has [...] Please advise. Thank you. Nidia Silverio LPN. [facility] 08-12-2024 Miscellaneous Notes Patient has been [...] Nidia Silverio LPN. documented in this encounter [facility] 08-12-2024 Telephone encounter Note Patient has [...] Please advise. Thank you. Nidia Silverio LPN. [facility] 08-12-2024 Miscellaneous Notes Patient has been [...] Nidia Silverio LPN. documented in this encounter [facility] 08-12-2024 Telephone encounter Note Patient has [...] Please advise. Thank you. Nidia Silverio LPN. [facility] 08-12-2024 Miscellaneous Notes Patient has been [...] Nidia Silverio LPN. documented in this encounter [facility] 06-26-2024 Telephone encounter Note Patient calling [...] Pablo LPN June 26, 2024 2:31 PM [facility] 06-26-2024 Miscellaneous Notes Patient calling requesting Dul[facility]. [facility] [...] 2024 2:31 PM documented in this encounter [facility] 06-23-2024 Telephone encounter Note Spoke with pt and information listed below given. Pt verbalizes understanding. Romi Pandya LPN [facility] 06-23-2024 Miscellaneous Notes Spoke with pt and information listed below given. Pt verbalizes understanding. Romi Pandya LPN Due for vit d level. Order is placed. Thank you Lala Harrison APRN.MICHAEL Pharmacy is asking for a 90 day supply. Patient has been identified by name and date of : Yes Patient phones for refill(s): Requested Prescriptions Pending Prescriptions Disp Refills ergocalciferol 50,000 unit capsule (VITAMIN D2, DRISDOL) [Pharmacy Med Name: VITAMIN D2 1.25MG(50,000 UNIT)] 18 capsule 2 Sig: TAKE 1 TABLET BY MOUTH TWICE WEEKLY [id number], THEN DECREASE TO 1 TABLET WEEKLY DIRECTED. Date of last office visit in primary care: 05/06/2024 Date of next office visit in primary care: 06/26/2024 Please advise. Thank you. Nidia Silverio LPN. documented in this encounter [facility] 06-18-2024 Telephone encounter Note Due for vit d level. Order is placed. Thank you Lala Harrison APRN.MICHAEL [facility] 06-18-2024 Telephone encounter Note Pharmacy is asking for a 90 day supply. Patient has been identified by name and date of : Yes Patient phones for refill(s): Requested Prescriptions Pending Prescriptions Disp Refills ergocalciferol 50,000 unit capsule (VITAMIN D2, DRISDOL) [Pharmacy Med Name: VITAMIN D2 1.25MG(50,000 UNIT)] 18 capsule 2 Sig: TAKE 1 TABLET BY MOUTH TWICE WEEKLY [id number], THEN DECREASE TO 1 TABLET WEEKLY DIRECTED. Date of last office visit in primary care: 05/06/2024 Date of next office visit in primary care: 06/26/2024 Please advise. Thank you. Nidia Silverio LPN. [facility] 06-12-2024 Telephone encounter Note Patient PawSpothart message requesting the following refill Refill(s) Requested: Requested Prescriptions Pending Prescriptions Disp Refills insulin glargine-yfgn (SEMGLEE,INSULIN GLARG-YFGN,PEN) 100 unit/mL (3 mL) insulin pen 15 mL 3 ALLERGIES Allergen Reactions Betadine [Povidone-* Unknown Glimepiride Intolerance Diarrhea Haldol [Haloperidol] Other: See Comments Headache/hallucinations [place] Other: See Comments Hallucinations Metformin Diarrhea Neurontin [Gabapent* Intolerance felt poorly Penicillins Unknown Okay to take amoxil Tylenol [Acetaminop* Intolerance Victoza [Liraglutid* GI Upset (cell) Last Office Visit Date: 05/06/2024 Last [facility] Visit: Visit date not found Future Appointment: 06/17/2024 The patients preferred pharmacy has been captured for this encounter? yes Request is for script(s) to be escript to pharmacy. Yudith Rodriguez LPN [facility] 06-12-2024 Miscellaneous Notes Patient MyChart message requesting the following refill Refill(s) Requested: Requested Prescriptions Pending Prescriptions Disp Refills insulin glargine-yfgn (SEMGLEE,INSULIN GLARG-YFGN,PEN) 100 unit/mL (3 mL) insulin pen 15 mL 3 ALLERGIES Allergen Reactions Betadine [Povidone-* Unknown Glimepiride Intolerance Diarrhea Haldol [Haloperidol] Other: See Comments Headache/hallucinations [place] Other: See Comments Hallucinations Metformin Diarrhea Neurontin [Gabapent* Intolerance felt poorly Penicillins Unknown Okay to take amoxil Tylenol [Acetaminop* Intolerance Victoza [Liraglutid* GI Upset (cell) Last Office Visit Date: 05/06/2024 Last [facility] Visit: Visit date not found Future Appointment: 06/17/2024 The patients preferred pharmacy has been captured for this encounter? yes Request is for script(s) to be escript to pharmacy. Yudith Rodriguez LPN documented in this encounter [facility] 06-01-2024 Telephone encounter Note Patient has [...] Heydi Braswell LPN. Rx needs sent to [facility]. [facility] won't give refill. [facility] 06-01-2024 Miscellaneous Notes Patient has been [...] Heydi Braswell LPN. Rx needs sent to [facility]. [facility] won't give refill. documented in this encounter [facility] 05-08-2024 Telephone encounter Note Patient notified of providers message and verbalized understanding. [facility] 05-08-2024 Miscellaneous Notes Patient notified of [...] send in today. documented in this encounter [facility] 05-08-2024 Telephone encounter Note Please let [...] Will update note and send in today. [facility] 05-06-2024 Instructions Lala Harrison APRN.CNP - 05/06/2024 5:33 PM EDT Check blood sugar fasting first thing when waking up and 2 hours after a meal documented in this encounter [facility] 05-06-2024 History of Present illness Narrative [...] vaginal ALLERGIES Betadine [Povidone-Iodine], Glimepiride, Haldol [Haloperidol], [place], Metformin, Neurontin [Gabapentin], Penicillins, Tylenol [Acetaminophen], and [...] Take 1 tablet by mouth twice weekly [id number], then decrease to 1 tablet weekly. oxybutynin [...] day. Takes blood sugar twice daily) Insulin [place], Disposable, (BD ULTRAFINE III MINI PEN) 31 gauge x 3/16 1 Each two times a day. rosuvastatin (CRESTOR) 10 mg tablet Take 1 tablet by mouth daily at bedtime. pregabalin (LYRICA) 100 mg capsule Take 1 capsule by mouth two times a day for 180 days. To be taken with 75 mg capsule to total 175 mg twice daily. PULSE OXIMETER [facility] Use as needed to monitor oxygen level [...] 60+ series) Never done Covid-19 Vaccine(3 - 2022- season) due on 06/28/2023 Dilated Retinal Exam [...] Lala Harrison APRN.CNP documented in this encounter [facility] 04-29-2024 Instructions Ashley Venegas APRN.CNP - [...] with weight loss. documented in this encounter [facility] 04-29-2024 Procedure note FENO:Patient was unable to perform test to obtain a result. Several attempts made. [facility] 04-29-2024 Procedure note FENO:Patient was unable to perform test to obtain a result. Several attempts made. documented in this encounter [facility] 04-29-2024 Nurse Note Intake information documented in the prior visit with ALESSANDRO Velasquez today. [facility] 04-29-2024 Nurse Note Intake information documented in the prior visit with ALESSANDRO Velasquez today. documented in this encounter [facility] 04-29-2024 History of Present illness Narrative [...] to obtain Sindy despite multiple attempts. DME: [facility], [address] PAST MEDICAL HISTORY Diagnosis Date Abdominal pain, [...] Comment:Diarrhea Haldol [Haloperidol] Other: See Comments Comment:Headache/hallucinations [place] Other: See Comments Comment:Hallucinations Metformin Diarrhea Neurontin [...] Take 1 tablet by mouth twice weekly [id number], then decrease to 1 tablet weekly. ferrous sulfate 325 mg (65 mg iron) tablet Take 1 tablet by mouth two times a day with meals. Insulin [place] (Disposable) 31 gauge x 3/16 Commonly known [...] total 175 mg twice daily. [facility] Use as needed to monitor oxygen level [...] edited and updated as necessary. Ashley Venegas APRN.DIANETIC COUNSELOR Associated attestation - Monserrat Khoury PA-C - 04/29/2024 3:54 PM EDT I have personally performed a face to face assessment of the patient and have reviewed the WYATT note. My bravo findings include: Exam is as documented. Assessment/Plan discussed and reflected in note. Other additions or changes: As edited Signature: Monserrat Khoury Date: 04/29/2024 Time: 3:53 PM documented in this encounter [facility] 04-29-2024 Telephone encounter Note PDMP website checked and validated. All prescriptions have been APPROPRIATELY filled. No suspicious activity was identified. 04/29/2024 by Lala Harrison APRN.CNP [facility] 04-29-2024 Miscellaneous Notes PDMP website checked [...] 2024 7:16 AM documented in this encounter [facility] 04-28-2024 Telephone encounter Note Prescription Refill [...] Schwartz LPN April 28, 2024 7:17 AM [facility] 04-28-2024 Miscellaneous Notes Prescription Refill Information [...] 2024 7:17 AM documented in this encounter [facility] 04-28-2024 Telephone encounter Note Prescription Refill [...] Schwartz LPN April 28, 2024 7:16 AM [facility] 04-09-2024 Telephone encounter Note Prescription Refill [...] FRANCISCO Broderick April 09, 2024 7:41 AM [facility] 04-09-2024 Miscellaneous Notes Prescription Refill Information [...] 2024 7:41 AM documented in this encounter [facility] 03-17-2024 Telephone encounter Note Patient aware. Patient is going to have phone number change and will call clinic with new number. Lana Mckenzie LPN [facility] 03-17-2024 Miscellaneous Notes Patient aware. Patient [...] if she would like. Denial rec'd from [facility] for fezlinetant. It doesn't say what is covered. Reviewed discount cards. That would be around 500$ per month. Prior Authorization has been completed online at [employer] for Pily, will await response. [id number] Please keep encounter open until final decision has been received and documented from insurance company. Camila Lees MA documented in this encounter [facility] 03-17-2024 Telephone encounter Note ok [facility] 03-17-2024 Telephone encounter Note Spoke with patient and she would like to try the low-dose paroxetine to see if that would help. She doesn't want to try the gabapentin due to side effects. Also patient has requested a refill on the Lantus. Prescription is pending. [facility] 03-17-2024 Telephone encounter Note Please let Irma Stewart know. Can consider low-dose paroxetine or gabapentin for hot flashes if she would like. [facility] 03-17-2024 Telephone encounter Note Denial rec'd from [employer] for fezlinetant. It doesn't say what is covered. Reviewed discount cards. That would be around 500$ per month. [facility] 2024 Telephone encounter Note Prior Authorization has been completed online at [employer] for Pily, will await response. [id number] Please keep encounter open until final decision has been received and documented from insurance company. Camila Lees MA [facility] 03-13-2024 Telephone encounter Note Yes rx sent. [facility] 03-13-2024 Miscellaneous Notes Yes rx [...] it again. ----- Message from Jaime Spencer APRN.SENIOR INFRASTRUCTURE ARCHITECT sent at 03/12/2024 4:37 PM EDT ----- CBC CMP TSH are in acceptable range. A1c shows decreased control compared to previous. Check to see if taking medications for DM as ordered. documented in this encounter [facility] 03-12-2024 Telephone encounter Note Patient notified [...] and she will start taking it again. [facility] 03-12-2024 Telephone encounter Note ----- Message from Jaime Spencer APRN.SENIOR INFRASTRUCTURE ARCHITECT sent at 03/12/2024 4:37 PM EDT ----- CBC CMP TSH are in acceptable range. A1c shows decreased control compared to previous. Check to see if taking medications for DM as ordered. 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 Ordered albuterol sulfate and budesonide/formoterol fumarate. Noted [...] Notes no longer seeing pain management doctor Leonidasi as MRI not completed due to not [...] Diarrhea Haldol [Haloperidol] Other: See Comments Headache/hallucinations [place] Other: See Comments Hallucinations Metformin Diarrhea Neurontin [Gabapent* Intolerance felt poorly Penicillins Unknown Okay to take amoxil Tylenol [Acetaminop* Intolerance Victoza [Liraglutid* GI Upset Medications ergocalciferol 50,000 unit capsule (VITAMIN D2, DRISDOL) Take 1 capsule by mouth one time a week. TO BE TAKEN ORALLY DIRECTED. Take 1 tablet by mouth twice weekly [id number], then decrease to 1 tablet weekly. oxybutynin [...] day. Takes blood sugar twice daily) Insulin [place], Disposable, (BD ULTRAFINE III MINI PEN) 31 [...] total 175 mg twice daily. PULSE O[facility]IMETER [facility] Use as needed to monitor oxygen level [...] Abs Lymph 1.00 - 4.00 k/uL 1.52 Montague% % 6.7 Abs [place] <0.87 k/uL 0.28 Eosin% % 2.2 Abs [...] (SHINGRIX) - RSV VACCINE, BIVALENT (ABRYSVO) - PFIZER-BIONTHookLogic COVID-19 VACCINE (2022- SEASON) AGE 12+ YR Reschedule with rheumatology, previously NANCY positive. 1 mo follow up CAMPOS Barcenas APRN.CNS Medical Decision Making: Problems: Moderate: 2+ stable chronic illnesses Data: Unique test(s) ordered: 2 Risk: Moderate: Drug management Medical Decision Making Level: 4 - Moderate documented in this encounter [facility] 02-17-2024 Telephone encounter Note Patient returned [...] does not always hear her phone ringing. [facility] 02-17-2024 Miscellaneous Notes Patient returned call [...] Romi Pandya LPN documented in this encounter [facility] 02-14-2024 Miscellaneous Notes Left a brief [...] Anupama Andrade LPN. documented in this encounter [facility] 02-07-2024 Miscellaneous Notes Patient has been [...] Anupama Andrade LPN. documented in this encounter [facility] 02-06-2024 Telephone encounter Note Left a message for pt to call the office. Records show medication be last prescribed in 2021. Romi Pandya LPN [facility] 01-07-2024 Miscellaneous Notes Patient has been [...] Anupama Andrade LPN. documented in this encounter [facility] 01-07-2024 Miscellaneous Notes Patient has been [...] Kelsi Mcmullen MA. documented in this encounter [facility] 12-12-2023 Miscellaneous Notes Patient notified of [...] able to now. Thank you Lala Harrison APRN.DIANETIC COUNSELOR PDMP website checked and validated. All prescriptions [...] Anupama Andrade LPN. documented in this encounter [facility] 12-12-2023 Miscellaneous Notes Patient notified of results and provider's instructions. Patient verbalizes understanding. Rhona Lai, RN Left message to call office. 12/11/2023 8:57 AM Christoph Mckeon Ma Abnormal results on lung function testing, showing obstruction that did not resolve with treatment. Recommend referral to pulmonology for further evaluation Yasmine Martinez APRN.DIANETIC COUNSELOR documented in this encounter [facility] 12-11-2023 Miscellaneous Notes Patient has been identified by name and date of : No Patient phones for refill(s): Requested Prescriptions Pending Prescriptions Disp Refills Insulin [place], Disposable, (BD ULTRAFINE III MINI PEN) 31 gauge x 3/16 100 Each 3 Si Each two times a day. Date of last office visit in primary care: 11/04/2023 Date of next office visit in primary care: 12/10/2023 Please advise. Thank you. Anupama Andrade LPN. documented in this encounter [facility] 12-11-2023 Miscellaneous Notes Patient has been [...] you. FRANCISCO Broderick. documented in this encounter [facility] 12-09-2023 Miscellaneous Notes Pt notified via [employer]ch[employer]. Please fax copy of my office note from 11/04, oxygen order and pulse ox with ambulation results to [facility]. Please let patient know we are faxing the order Yasmine Martinez APRN.DIANETIC COUNSELOR documented in this encounter [facility] 12-09-2023 Miscellaneous Notes Patient has been [...] Anupama Andrade LPN. documented in this encounter [facility] 12-06-2023 Procedure note Associated Ord er(s): [...] 3:09 PM Comment: documented in this encounter [facility] 12-06-2023 History of Present illness Narrative PULM FUNCTION SMARTBLOCK: Provider: Yasmine Martinez APRN.DIANETIC COUNSELOR Assisting Tech: Sary Servin RPFT Spirometry w/BD: 1 DLCO: 1 LV - Box: 1 Oximetry - Ambulation: 1 documented in this encounter [facility] 12-02-2023 Miscellaneous Notes Dusty from [facility] calling to say patient needs further testing [...] & recent PSG study results faxed to: [employer] [employer] [phone]. Marc Ledezma MA Pt phoned to let [...] plans to reschedule. documented in this encounter [facility] 11-25-2023 History of Present illness Narrative [...] PATIENT PRESENTS WITH AN IMPLANTABLE OR ATTACHED ART THERAPY CERTIFIED SUPERVISOR: No RADIOLOGY DEPARTMENT: General X-ray: Exam(s) Completed: Upper Extremity X-Ray(s): Fingers/Thumb, right PERIPHERAL IV DATA: Not applicable SIGNED BY: RT Rafa(R) November 25, 2023 7:04 PM documented in this encounter [facility] 11-04-2023 History of Present illness Narrative [...] 2023 2:22 PM documented in this encounter [facility] 10-04-2023 Miscellaneous Notes ROSALIA: 08/09/2023 Last refill: 08/09/2023 QTY: 60 Refills: 1 documented in this encounter [facility] 10-04-2023 Miscellaneous Notes ROSALIA: 08/09/2023 Last refill: 08/13/2023 QTY: 60 Refills: 1 documented in this encounter [facility] 10-02-2023 Miscellaneous Notes Order faxed. Orders placed. Please fax pulse ox order as requested. Thank you Lala Harrison APRN.DIANETIC COUNSELOR Orders pended documented in this encounter [facility] 10-01-2023 Miscellaneous Notes [facility], Patient has refills of Alcohol swabs, Pharmacy will get ready for Patient to pickup. Nidia Silverio LPN documented in this encounter [facility] 10-01-2023 Miscellaneous Notes [facility]oke to [facility], Patient has refills of BD Ultrafine pen needles 31x3/16. Pharmacy will get ready for Patient to pickup. Nidia Silverio LPN documented in this encounter [facility] 10-01-2023 Miscellaneous Notes Patient has been [...] Nidia Silverio LPN. documented in this encounter [facility] 10-01-2023 Miscellaneous Notes [facility]oke to [facility], [...] Nidia Silverio LPN. documented in this encounter [facility] 09-02-2023 Miscellaneous Notes Telephoned the patient regarding missed appt. Left a message. 2nd attempt Telephoned the patient regarding missed appt. Left a message. 1st attempt Primary Care Pharmacy Rescheduling Outreach Call center, please contact patient and reschedule telephone and virtual visit for Diabetes management within ~4 week(s). (Visit length: 30 minutes) Thank you, Constance Humphries PharmD Primary Care Clinical Health Tech 08/30/2023 1:37 PM Called patient for scheduled pharmacy phone follow up; unable to reach after multiple attempts. Left VM with phone number to reschedule. Constance Humphries PharmD Primary Care Clinical Health Tech documented in this encounter [facility] 08-22-2023 Miscellaneous Notes Patient has been [...] Iveth Nye LPN. documented in this encounter [facility] 08-13-2023 Miscellaneous Notes ok Patient states was unable to fill the script for the Lyrica 100 mg. On script it states not to start before 09/09/2023. If patient has been taking daily will be due for a refill. Please correct script. Call patient once encounter has been addressed. documented in this encounter [facility] 08-13-2023 Telephone encounter Note Patient has [...] applicable Please advise. Thank you. Anupama Andrade. [facility] 08-13-2023 Miscellaneous Notes Patient has been [...] medication: Not applicable Please advise. Thank you. Aunpama Andrade. Patient has been identified by name [...] advise. Hema Mcclelland documented in this encounter [facility] 08-13-2023 Telephone encounter Note Patient has [...] daily Please review and advise. Hema Mcclelland [facility] 08-09-2023 Instructions Jaime Spencer APRN.CNS - 08/09/2023 2:34 PM EDT For diabetes: [...] on with iron documented in this encounter [facility] 08-09-2023 History of Present illness Narrative SUBJECTIVE: Diabetic Foot Exam Never done Pap Testing Never done HPV Testing Never done Colorectal Cancer Screening Never done Mammogram Screening due on 05/20/2007 Shingrix Vaccine(1 of 2) Never done Hepatitis B Vaccine(1 of 3 - Risk 3-dose series) Never done Urine Albumin:Creatinine Ratio due on 10/02/2022 Covid-19 Vaccine( season) due on 06/28/2023 Dilated Retinal Exam [...] visit notes indicate she has been in [facility] for severe pain. Reported referred to orthopedic [...] diagnosed with fibromyalgia by Dr. Garcia at [facility] orthopedics. Reports she was referred to Dr. Conrad Springer, plans to see him at [facility] in [facility]. States he is a fibromyalgia specialist. She [...] Diarrhea Haldol [Haloperidol] Other: See Comments Headache/hallucinations [place] Other: See Comments Hallucinations Metformin Diarrhea Neurontin [...] Take 1 tablet by mouth twice weekly [id number], then decrease to 1 tablet weekly. ferrous sulfate 325 mg (65 mg iron) tablet Take 1 tablet by mouth two times a day with meals. furosemide (LASIX) 20 mg tablet Take 1 tablet by mouth once daily. Alternate 2 pills with 1 pill daily Insulin [place], Disposable, (BD ULTRAFINE III MINI PEN) 31 [...] Abs Lymph 1.00 - 4.00 k/uL 1.52 Montague% % 6.7 Abs [place] <0.87 k/uL 0.28 Eosin% % 2.2 Abs [...] iron 3 mo follow up Jaime Spencer APRN.CNS or CAMPOS Christensen CNP, APRN.CNS Medical Decision Making: Problems: Moderate: 2+ stable chronic illnesses Data: Unique test(s) ordered: 1 Risk: Moderate: Drug management Medical Decision Making Level: 4 - Moderate documented in this encounter [facility] 07-15-2023 Miscellaneous Notes Pt calling for : 1)lab results. Pt still not feeling well and she was dx with Fibromyalgia on 07-09-23. 2)blood sugar meter quit. Requesting new one be sent unable to test until she gets a new one. Requesting everything be sent to [facility]. Romi Pandya LPN documented in this encounter [facility] 07-15-2023 Hospital Discharge instructions Patient Education [...] Arthritis Foundation www.arthritis.org National Fibromyalgia Association www.fmaware.org [place] Fibromyalgia Syndrome Association www.afsafund.org 3429-[address] [place] [address]. All rights reserved. This information is not intended as a substitute for professional medical care. Always follow your healthcare professional's instructions. Follow Up Care 07/15/2023 01:34:54 With:PAIN NAN ALDANA Address: IN PER JOSE JUAN CALDERON FOR ER PT REFERRALS ONLY When:2-4 days [facility] 07-15-2023 Note Discharge Instructions Thank you for allowing [facility] to assist you with your healthcare needs. The following is important discharge information regarding your hospital visit. Diagnosis from Today's Visit Fibromyalgia What to Do Next Instructions from Your Care Team No qualifying data available. Post Acute Orders No qualifying data available. You Need to Schedule the Following Appointments Follow Up with PAIN MANAGEMENTNAN When Within 2-4 days Where: IN PER JOSE JUAN CALDERON FOR ER PT REFERRALS ONLY Allergies Haldol lithium traMADol Medications Please ask your primary doctor or pharmacist before taking any other medication not listed, including over the counter drugs, herbal medications, vitamins and or supplements as they may interact with your home medications. What How Much When Why Instructions Last Dose New acetaminophen-hydrocodone ([place] 325- 5 mg oral tablet) 1 tab(s) [...] Arthritis Foundation www.arthritis.org National Fibromyalgia Association www.fmaware.org [place] Fibromyalgia Syndrome Association www.afsafund.org 2417-[address] [employer] [place] [address]. All rights reserved. This information is not intended as a substitute for professional medical care. Always follow your healthcare professional's instructions. Additional Information VACCINATE! IT SAVES LIVES! Members of the community who have not yet received the COVID-19 vaccine and would like to receive it can visit one of [facility] vaccine clinics. There are many vaccine clinic locations within the [facility]. For locations and available times, please visit [email or web address] v/. It is important to note that some COVID mobile vaccine clinics are held outdoors and may be canceled in rainy or stormy conditions. To learn more about pediatric vaccinations (ages 5-11), we invite you to visit the [facility] webpage. https://www.[facility].org/pag es/9010-Kdaqk-Hqgmqwkixgq-Frequent hy-Aeuvy-Jnrnngzmk.html To learn more about the COVID-19 vaccine, we invite you to visit the CDC website for a list of frequently asked questions. https://www.cdc.gov/coronavirus/ 19-ncov/vaccines/faq.html [employer] Patient Portal Access Instructions: Stay connected with your healthcare team and access your personal medical information anytime with the [employer] Patient Portal. If you would like a full copy of your medical records please contact the [facility] Medical Records Department Saturday through Saturday between 8a.m. and 4:30p.m. Please follow the directions below to access the portal: 1.Access the email account you provided upon registration to the hospital.2.Look for an invitation email from [facility].3.Open the email and access the invitation link: Accept Invitation to [employer]4.Fill in the required field to create your account. Sign into [email or web address] with your username and password that you [...] you will allow to register on the [email or web address] Patient Portal for access to your information. You can also access the [employer] Patient Portal on the [employer] wyatt. Simply click on Health Records under Health Data and then click on the [employer] logo. HOW TO SAFELY DISPOSE OF PRESCRIPTION [...] Call your local pharmacy or go to http://Auto Mute.RemoteReality/2N7Gx0p to find one close to you.3.Make use of household items: Use cat litter or old coffee grounds to dispose medications if other options are not available. Mix your drugs with these household products, seal them in an airtight container and throw it into the garbage. Call [facility]: [phone] to be sure your drugs can be [...] been reviewed and explained to me and I,IRMA STEWART understand my current condition and have read and understand these discharge instructions. I have received a written copy of the plan/instructions. If I have questions, I am aware that I should contact my doctor. Patient/Bulk Clerk Signature: Date/Time: Relationship to Patient: ___ Witness Name/Signature: Date/Time: [facility] 07-12-2023 Nurse Note Pain level before Toradol injection at 11:28 AM 08/06 Pain level after injection at 11:37 AM was 11/06 documented in this encounter [facility] 07-12-2023 History of Present illness Narrative CC: Patient presents with: ED Follow-up: [facility] [facility] 06/29/23 HPI Irma Stewart is a 63 year old female who presents today for fibromyalgia pain. This is an established patient of Dr. Hackett's but my first time evaluating her. Has been in the ER in [place] for severe pain, per patient received multiple [...] vaginal ALLERGIES Betadine [Povidone-Iodine], Glimepiride, Haldol [Haloperidol], [place], Metformin, Neurontin [Gabapentin], Penicillins, Tylenol [Acetaminophen], and [...] DM - Controlled E11.9 Insulin: Yes Insulin [place], Disposable, (BD ULTRAFINE III MINI PEN) 31 [...] Take 1 tablet by mouth twice weekly [id number], then decrease to 1 tablet weekly. ferrous [...] Lala Harrison APRN.CNP documented in this encounter [facility] 06-29-2023 Hospital Discharge instructions Patient Education [...] or legs Numbness in the groin area [phone] [employer]. [address] [place] [address]. All rights reserved. This information is not intended as a substitute for professional medical care. Always follow your healthcare professional's instructions. Follow Up Care 06/29/2023 19:52:09 With:MARIBELL GARCIA DO, [facility] Address: [address] [facility] [place] [address] [phone] When:2-4 days With:[facility] Address: When:2-4 days With:WILLY HUTSON APRNALEX Address: [address] [place] [address] [phone] [facility]:2-[facility] department Discharge summary Discharge Instructions Thank you for allowing [facility] [...] Following Appointments Follow Up with MARIBELL GARCIA DO [facility] When Within 2-4 days Where: [address] [facility] [place] [id number] [phone] Follow Up with [facility], Orthopaedics When Within 2-4 days Where: Follow Up with WILLY HUTSON When Within 2-4 days Where: [address] [place] [address]- [phone] Allergies Haldol lithium traMADol Medications Please ask [...] or legs Numbness in the groin area [phone] [employer]. [address] [place] [address]. All rights reserved. This information is not intended as a substitute for professional medical care. Always follow your healthcare professional's instructions. Additional Information VACCINATE! IT SAVES LIVES! Members of the community who have not yet received the COVID-19 vaccine and would like to receive it can visit one of [facility] vaccine clinics. There are many vaccine clinic locations within the [facility]. For locations and available times, please visit [email or web address] v/. It is important to note that some COVID mobile vaccine clinics are held outdoors and may be canceled in rainy or stormy conditions. To learn more about pediatric vaccinations (ages 5-11), we invite you to visit the [facility] webpage. https://www.[facility].org/pag es/4113-Aiuyh-Ftiojyufxfu-Frequent bc-Grzqa-Gdaogekra.html To learn more about the COVID-19 vaccine, we invite you to visit the CDC website for a list of frequently asked questions. https://www.cdc.gov/coronavirus/-ncov/vaccines/faq.html [employer] Patient Portal Access Instructions: Stay connected with your healthcare team and access your personal medical information anytime with the [employer] Patient Portal. If you would like a full copy of your medical records please contact the [facility] Medical Records Department Saturday through Saturday between 8a.m. and 4:30p.m. Please follow the directions below to access the portal: 1.Access the email account you provided upon registration to the [facility].2.Look for an invitation email from [facility].3.Open the email and access the invitation link: Accept Invitation to [employer]4.Fill in the required field to create your account. Sign into [email or web address] Online with your username and password that you [...] you will allow to register on the [employer] Patient Portal for access to your information. You can also access the [employer] Patient Portal on the [employer]. Simply click on Health Records under Health Data and then click on the [employer] logo. HOW TO SAFELY DISPOSE OF PRESCRIPTION [...] Call your local pharmacy or go to http://bit.RemoteReality/4L5Yo8r to find one close to you.3.Make use of household items: Use cat litter or old coffee grounds to dispose medications if other options are not available. Mix your drugs with these household products, seal them in an airtight container and throw it into the garbage. Call [facility]: [phone] to be sure your drugs can be [...] aware that I should contact my doctor. Patient/Bulk Clerk Signature: Date/Time: Relationship to Patient: ___ Witness Name/Signature: Date/Time: [facility] Dimitris 06-11-2023 Miscellaneous Notes ROSALIA: 02/22/2023 NOV: none scheduled. Last refill: 04/08/2023 QTY: 60 Refills: 1 documented in this encounter [facility] 05-28-2023 Miscellaneous Notes Per pharmacy distance [...] PA? Thank you Lala Harrison APRN.CNP Lala - Pt wrote this message into the Office via MC10 3 days ago. Hi Brunilda, I was [...] weight loss. My Ozempic was denied at [facility] [place], [place]. I don't know what I'm suppose [...] Prior Authorization has been completed online at [employer] for ozempic, will await response. BRAVO- [id number] Please keep encounter open until final decision has been received and documented from insurance company. Camila Lees MA PRIOR AUTHORIZATION Medication for Prior Authorization: Ozempic Other formulary meds available : NO Insurance Company: [employer] phone number: Patient insurance ID number: [id number] Inocencia Lowery RN documented in this encounter [facility] 05-27-2023 Note HNO ID: [id number] Author: Ricardo Dinh RPh Service: ? Author [...] Diarrhea Haldol [Haloperidol] Other: See Comments Headache/hallucinations [place] Other: See Comments Hallucinations Metformin Diarrhea Neurontin [...] E11.9 Insulin: Yes 100 Each 0 Insulin [place], Disposable, (BD ULTRAFINE III MINI PEN) 31 [...] Take 1 tablet by mouth twice weekly [id number], then decrease to 1 tablet weekly. 24 [...] HBA1C 6.6 0 (more content not included)... [facility] 05-27-2023 History of Present illness Narrative Primary [...] Diarrhea Haldol [Haloperidol] Other: See Comments Headache/hallucinations [place] Other: See Comments Hallucinations Metformin Diarrhea Neurontin [...] E11.9 Insulin: Yes 100 Each 0 Insulin [place], Disposable, (BD ULTRAFINE III MINI PEN) 31 [...] Take 1 tablet by mouth twice weekly [id number], then decrease to 1 tablet weekly. 24 [...] complication, with long-term current use of insulin ([facility]) - ICD9: 250.00, V58.67, ICD10: E11.9, Z79.4 [...] was 35 minutes. documented in this encounter [facility] 05-23-2023 History of Present illness Narrative [...] 4 Planned Treatment Interventions: Canalith Repositioning Maneuvers (65057), Self-nursing home management (69944), Patient/Family/Caregiver Education, Body Mechanics Training PLAN FOR [...] Yes Description: (ringing) Rating of current symptoms: 10/10 Location: both ears equally Comments: severe ringing [...] WITH LEVEL OF FUNCTION: Positional Testing Right Conway-Hallpike: Symptomatic, No nystagmus (very mild with no detectable nystagmus) Left Soni-Hallpike: Symptomatic, With delay, Less than 60 seconds [...] B posterior canals completed with pt on [facility]. She was educated extensively on the technique [...] Thom Enamorado PT documented in this encounter [facility] 05-03-2023 Miscellaneous Notes Spoke with patient [...] Anupama Ceballos LPN documented in this encounter [facility] 04-22-2023 Miscellaneous Notes Unable to reach [...] PA for this? Thank you Lala Harrison APRN.DIANETIC COUNSELOR Patient has been identified by name and date of : No Patient phones for refill(s): Requested Prescriptions Pending Prescriptions Disp Refills BASAGLAR KWIKPEN U-100 INSULIN 100 unit/mL (3 mL) [Pharmacy Med Name: BASAGLAR 100 UNIT/ML KWIKPEN] 3 Sig: INJECT 24 UNITS SUBCUTANEOUSLY ONCE DAILY. Date of last office visit in primary care: 02/22/23 Last 2 Encounter Wt Readings: Date: Wt: 02/22/2023 115.7 kg (255 lb) 01/23/2023 116.1 kg (256 lb) Previous labs/tests for medication: Diabetes: Hemoglobin A1C (%) Date Value 02/20/2023 6.6 04/10/2022 7.1 06/23/2021 6.0 08/31/2020 6.4 Please advise. Thank you. Anupama Ceballos LPN documented in this encounter [facility] 04-19-2023 History of Present illness Narrative POPULATION HEALTH NAVIGATION OUTREACH Action/I RP Outreach: LVM for Patient to call back and schedule ADEN Consult for Knee joint injury, initial encounter [S89.90XA]. [phone]. Any agent can assist. Patient Identified by Name and : YES, via [employer] Outreach Outcome/Action Unable to reach patient: Left message Did you use a PCP flex slot to schedule this appointment? No Reason for Outreach Care Gap or Scheduling/Wellness visits Payer: Payor: [employer] MEDICA[employer] / Plan: [employer] MEDICAID / Product Type: Medicaid / Care [...] 2023 11:19 AM documented in this encounter [facility] 04-16-2023 History of Present illness Narrative POPULATION HEALTH NAVIGATION OUTREACH Action/FYI RP Outreach: LVM for Patient to call back and schedule ADEN Consult for Knee joint injury, initial encounter [S82.73XA]. [phone]. Any agent can assist. Patient Identified by Name and : YES, via [employer] Outreach Outcome/Action Unable to reach patient: Left message Did you use a PCP flex slot to schedule this appointment? No Reason for Outreach Care Gap or Scheduling/Wellness visits Payer: [facility] / Plan: [employer] MEDICA[employer] / Product Type: Medicaid / Care [...] 2023 11:02 AM documented in this encounter [facility] 04-11-2023 Miscellaneous Notes Patient has been [...] Iveth Nye LPN documented in this encounter [facility] 04-11-2023 History of Present illness Narrative [...] present. Adherence: denies missed doses. Pharmacy: e- [facility]/pharmacy #[id number] [place] [address] [address] [facility] [phone] [facility] [phone] Rx coverage: Payor: [facility] MEDICAID / Plan: [facility] MEDICAID / Product Type: Medicaid ACTIVE PROBLEM LIST Esophageal Reflux Moderate Episode of Recurrent Major Depressive Disorder (Hcc) Panic Disorder Without Agoraphobia Somatization Disorder Irritable Bowel Syndrome Other and Unspecified Hyperlipidemia Schizophrenia (Hcc) Other Mixed Anxiety Disorders Controlled Type 2 Diabetes Mellitus Without Complication, With Long-Term Current Use of Insulin (Hcc) PAST MEDICAL HISTORY Diagnosis Date Abdominal pain, [...] Diarrhea Haldol [Haloperidol] Other: See Comments Headache/hallucinations [place] Other: See Comments Hallucinations Metformin Diarrhea Neurontin [...] Take 1 tablet by mouth twice weekly [id number], then decrease to 1 tablet weekly. ferrous [...] glucose has been controlled without it Insulin [place], Disposable, (BD ULTRAFINE III MINI PEN) 31 [...] complication, with long-term current use of insulin ([facility]) - ICD9: 250.00, V58.67, ICD10: E11.9, Z79.4 [...] verbalized understanding of instructions. Fior Joseph PharmD, [facility] Primary Care Clinical Pharmacist The majority of the pharmacy visit (> 50%) was spent counseling and/or coordinating care for the patient. interaction: telephonic time was 48 minutes. documented in this encounter [facility] 03-26-2023 Instructions Gavi Norwood APRN.DIANETIC COUNSELOR - 03/26/2023 7:35 PM EDT ASSESSMENT/PLAN: 1. [...] Suboptimal joint space centering frontal weightbearing imaging Video Production Engineer: JADON Transcribe Date/Time: Mar 26 2023 7:15P Dictated by : LATISHA ISAAC MD - RICE therapy as directed. - Follow-up with orthopedics as directed. - Discussed red flags and need for immediate medical evaluation if any occur. - Discussed supportive care treatment with fluids, rest and analgesia. - Discussed expected course of illness Gavi Norwood APRN.CNP R.I.C.E. The general care of your injury [...] when lying down. documented in this encounter [facility] 03-26-2023 History of Present illness Narrative [...] vaginal ALLERGIES Betadine [Povidone-Iodine], Glimepiride, Haldol [Haloperidol], [place], Metformin, Neurontin [Gabapentin], Penicillins, Tylenol [Acetaminophen], and [...] Take 1 tablet by mouth twice weekly [id number], then decrease to 1 tablet weekly. ferrous sulfate 325 mg (65 mg iron) tablet TAKE 1 TABLET BY MOUTH TWICE A DAY WITH MEALS Insulin [place], Disposable, (BD ULTRAFINE III MINI PEN) 31 [...] Suboptimal joint space centering frontal weightbearing imaging Video Production Engineer: JADON Transcribe Date/Time: Mar 26 2023 7:15P Dictated by : LATISHA ISAAC MD - RICE therapy as directed. - Follow-up with orthopedics as directed. - Discussed red flags and need for immediate medical evaluation if any occur. - Discussed supportive care treatment with fluids, rest and analgesia. - Discussed expected course of illness Gavi Norwood APRN.CNP documented in this encounter [facility] 03-26-2023 History of Present illness Narrative [...] 2023 6:31 PM documented in this encounter [facility] 02-27-2023 Miscellaneous Notes Consult has been [...] Rhona Lai RN documented in this encounter [facility] 02-22-2023 History of Present illness Narrative [...] 2023 3:20 PM documented in this encounter [facility] 01-31-2023 Miscellaneous Notes Patient was referred [...] please schedule with Jess. Jess Perry PharmD, BCACP Primary Care Clinical Pharmacist documented in this encounter [facility] 01-30-2023 Miscellaneous Notes Patient has been [...] Inocencia Lowery RN documented in this encounter [facility] 01-23-2023 History of Present illness Narrative US Reason [...] She is going to counseling center at [facility], [facility] , duloxetine , zoloft and depakote. She [...] 325 mg (65 mg iron) tablet Insulin [place], Disposable, (BD ULTRAFINE III MINI PEN) 31 [...] Monik Hackett MD documented in this encounter [facility] 01-02-2023 Miscellaneous Notes Patient has been [...] Anupama Ceballos LPN documented in this encounter [facility] 01-02-2023 Miscellaneous Notes Patient has been [...] Anupama Ceballos LPN documented in this encounter [facility] 12-24-2022 Miscellaneous Notes Standing ordered placed Regards, Monik Hackett MD documented in this encounter [facility] 11-29-2022 Miscellaneous Notes Please let patient [...] Anupama Ceballos LPN documented in this encounter [facility] 11-12-2022 Miscellaneous Notes Patient has been [...] Anupama Ceballos LPN documented in this encounter [facility] 10-09-2022 History of Present illness Narrative [...] 2022 5:08 PM documented in this encounter [facility] 09-24-2022 Miscellaneous Notes Last office visit: [...] Take 1 tablet by mouth twice weekly [id number], then decrease to 1 tablet weekly. Please review and advise. Jolene Tubbs LPN documented in this encounter [facility] 09-24-2022 Miscellaneous Notes Last office visit: 06/27/22 Next appointment scheduled: No future appointments scheduled at this time. Last labs: 04/10/22 Patient phones requesting refills as follows: Requested Prescriptions Pending Prescriptions Disp Refills rosuvastatin (CRESTOR) 10 mg tablet 90 tablet 2 Sig: Take 1 tablet by mouth daily at bedtime. Please review and advise. Jolene Tubbs LPN documented in this encounter [facility] 09-07-2022 Miscellaneous Notes Spoke with pt and information listed below given. Pt verbalizes understanding. Pt transferred to outpatient scheduler to reschedule apt with Podiatry. Romi Pandya [...] Iveth Nye LPN documented in this encounter [facility] 08-21-2022 Miscellaneous Notes Patient has been [...] Romi Pandya LPN documented in this encounter [facility] 08-21-2022 Miscellaneous Notes Patient has been [...] Romi Pandya LPN documented in this encounter [facility] 07-25-2022 History of Present illness Narrative POPULATION HEALTH NAVIGATION OUTREACH Action/I RP Outreach: LVM for Patient to call back and schedule ADEN Consult for Onychomycosis [B35.1]. [phone]. Any agent can assist. Pt identified by name and : YES, via MyChart Outreach Outcome/Action Unable to reach patient: Left message Did you use a PCP flex slot to schedule this appointment? No Reason for Outreach Care Gap or Scheduling/Wellness visits Payer: Payor: [facility] MEDICAID / Plan: [facility] MEDICAID / Product Type: Medicaid / [...] 2022 4:32 PM documented in this encounter [facility] 07-17-2022 Miscellaneous Notes Patient has been [...] Anupama Ceballos LPN documented in this encounter [facility] 07-03-2022 Miscellaneous Notes Patient has been [...] Anupama Ceballos LPN documented in this encounter [facility] 06-27-2022 History of Present illness Narrative [...] short acting, (LOPRESSOR) 50 mg tablet Insulin [place], Disposable, (BD ULTRAFINE III MINI PEN) 31 gauge x /16 metFORMIN ER (GLUCOPHAGE XR) 500 mg 24 [...] Hackett MD ` documented in this encounter [facility] 05-30-2022 Instructions Trixie Gibson APRN.MICHAEL - 05/30/2022 5:01 PM EDT Use the terbinafine medication once daily for 12 weeks. Recheck your liver function labs at that point. documented in this encounter [facility] 05-30-2022 History of Present illness Narrative [...] Diarrhea Haldol [Haloperidol] Other: See Comments Headache/hallucinations [place] Other: See Comments Hallucinations Metformin Diarrhea Neurontin [...] 1 tablet by mouth twice daily. Insulin [place], Disposable, (BD ULTRAFINE III MINI PEN) 31 [...] Take 1 tablet by mouth twice weekly [id number], then decrease to 1 tablet weekly. divalproex [...] TABLET - HEPATIC FUNCTION PNL Trixie Gibson APRN.DIANETIC COUNSELOR documented in this encounter [facility] 05-18-2022 Miscellaneous Notes Please let patient know she is overdue for routine follow up, and needs this prior to more refills, short refill prescribed at this time. Thank you Lala Harrison APRN.CNP PDMP website checked and validated. All prescriptions have been APPROPRIATELY filled. No suspicious activity was identified. 05/18/2022 by Lala Harrison APRN.CNP Last office visit: 10/02/21 F/u scheduled: none Last refilled on: Lyrica #[id number] with 2 refill on 02/09/22 Sherly Storey Ma documented in this encounter [facility] 05-14-2022 Miscellaneous Notes Patient has been [...] Nidia Silverio LPN documented in this encounter [facility] 03-14-2022 Miscellaneous Notes See other MyChart encounter from today 03/14/2022. 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 documented in this encounter [facility] 10-15-2006 History of Past i llness Narrative Problem Noted Date Resolved Date Abdominal pain, unspecified site 10/15/2006 12/07/2020 documented as of this encounter (statuses as of 02/09/2022) [facility] History of Past illness Narrative* Problem Noted Date Resolved Date Abdominal pain, unspecified site 10/15/2006 12/07/2020 documented as of this encounter (statuses as of 03/14/2022) [place] [id number] History of Past illness Narrative* Problem Noted Date Resolved Date Abdominal pain, unspecified site 10/15/2006 12/07/2020 documented as of this encounter (statuses as of 05/05/2022) [address] History of Past illness Narrative* Problem Noted Date Resolved Date Abdominal pain, unspecified site 10/15/2006 12/07/2020 documented as of this encounter (statuses as of 05/17/2022) [address] History of Past illness Narrative* Problem Noted Date Resolved Date Abdominal pain, unspecified site 10/15/2006 12/07/2020 documented as of this encounter (statuses as of 05/19/2022) [address] History of Past illness Narrative* Problem Noted Date Resolved Date Abdominal pain, unspecified site 10/15/2006 12/07/2020 documented as of this encounter (statuses as of 05/28/2022) [address] History of Past illness Narrative* Problem Noted Date Resolved Date Abdominal pain, unspecified site 10/15/2006 12/07/2020 documented as of this encounter (statuses as of 05/31/2022) [address] History of Past illness Narrative* Problem Noted Date Resolved Date Abdominal pain, unspecified site 10/15/2006 12/07/2020 documented as of this encounter (statuses as of 06/28/2022) [address] History of Past illness Narrative* Problem Noted Date Resolved Date Abdominal pain, unspecified site 10/15/2006 12/07/2020 documented as of this encounter (statuses as of 07/05/2022) [address] History of Past illness Narrative* Problem Noted Date Resolved Date Abdominal pain, unspecified site 10/15/2006 12/07/2020 documented as of this encounter (statuses as of 07/18/2022) [address] History of Past illness Narrative* Problem Noted Date Resolved Date Abdominal pain, unspecified site 10/15/2006 12/07/2020 documented as of this encounter (statuses as of 07/25/2022) [address] History of Past illness Narrative* Problem Noted Date Resolved Date Abdominal pain, unspecified site 10/15/2006 12/07/2020 documented as of this encounter (statuses as of 08/22/2022) [address] History of Past illness Narrative* Problem Noted Date Resolved Date Abdominal pain, unspecified site 10/15/2006 12/07/2020 documented as of this encounter (statuses as of 09/07/2022) [address] History of Past illness Narrative* Problem Noted Date Resolved Date Abdominal pain, unspecified site 10/15/2006 12/07/2020 documented as of this encounter (statuses as of 09/26/2022) [address] History of Past illness Narrative* Problem Noted Date Resolved Date Abdominal pain, unspecified site 10/15/2006 12/07/2020 documented as of this encounter (statuses as of 09/26/2022) [address] History of Past illness Narrative* Problem Noted Date Resolved Date Abdominal pain, unspecified site 10/15/2006 12/07/2020 documented as of this encounter (statuses as of 11/13/2022) [address] History of Past illness Narrative* Problem Noted Date Resolved Date Abdominal pain, unspecified site 10/15/2006 12/07/2020 documented as of this encounter (statuses as of 11/29/2022) [address] History of Past illness Narrative* Problem Noted Date Resolved Date Abdominal pain, unspecified site 10/15/2006 12/07/2020 documented as of this encounter (statuses as of 12/25/2022) [address] History of Past illness Narrative* Problem Noted Date Resolved Date Abdominal pain, unspecified site 10/15/2006 12/07/2020 documented as of this encounter (statuses as of 01/02/2023) [address] History of Past illness Narrative* Problem Noted Date Resolved Date Abdominal pain, unspecified site 10/15/2006 12/07/2020 documented as of this encounter (statuses as of 01/04/2023) [address] History of Past illness Narrative* Problem Noted Date Resolved Date Abdominal pain, unspecified site 10/15/2006 12/07/2020 documented as of this encounter (statuses as of 01/24/2023) [address] History of Past illness Narrative* Problem Noted Date Resolved Date Abdominal pain, unspecified site 10/15/2006 12/07/2020 documented as of this encounter (statuses as of 01/31/2023) [address] History of Past illness Narrative* Problem Noted Date Resolved Date Abdominal pain, unspecified site 10/15/2006 12/07/2020 documented as of this encounter (statuses as of 02/01/2023) [address] History of Past illness Narrative* Problem Noted Date Resolved Date Abdominal pain, unspecified site 10/15/2006 12/07/2020 documented as of this encounter (statuses as of 02/28/2023) [address] History of Past illness Narrative* Problem Noted Date Resolved Date Abdominal pain, unspecified site 10/15/2006 12/07/2020 documented as of this encounter (statuses as of 03/27/2023) [address] History of Past illness Narrative* Problem Noted Date Resolved Date Abdominal pain, unspecified site 10/15/2006 12/07/2020 documented as of this encounter (statuses as of 04/12/2023) [address] History of Past illness Narrative* Problem Noted Date Resolved Date Abdominal pain, unspecified site 10/15/2006 12/07/2020 documented as of this encounter (statuses as of 04/12/2023) [address] History of Past illness Narrative* Problem Noted Date Resolved Date Abdominal pain, unspecified site 10/15/2006 12/07/2020 documented as of this encounter (statuses as of 04/16/2023) [address] History of Past illness Narrative* Problem Noted Date Resolved Date Abdominal pain, unspecified site 10/15/2006 12/07/2020 documented as of this encounter (statuses as of 04/19/2023) [address] History of Past illness Narrative* Problem Noted Date Resolved Date Abdominal pain, unspecified site 10/15/2006 12/07/2020 documented as of this encounter (statuses as of 04/23/2023) [address] History of Past illness Narrative* Problem Noted Date Diagnosed Date Resolved Date Abdominal pain, unspecified site 10/15/2006 12/07/2020 documented as of this encounter (statuses as of 05/04/2023) [address] History of Past illness Narrative* Problem Noted Date Diagnosed Date Resolved Date Abdominal pain, unspecified site 10/15/2006 12/07/2020 documented as of this encounter (statuses as of 05/06/2023) [address] History of Past illness Narrative* Problem Noted Date Diagnosed Date Resolved Date Abdominal pain, unspecified site 10/15/2006 12/07/2020 documented as of this encounter (statuses as of 05/24/2023) [address] History of Past illness Narrative* Problem Noted Date Diagnosed Date Resolved Date Abdominal pain, unspecified site 10/15/2006 12/07/2020 documented as of this encounter (statuses as of 05/28/2023) [address] History of Past illness Narrative* Problem Noted Date Diagnosed Date Resolved Date Abdominal pain, unspecified site 10/15/2006 12/07/2020 documented as of this encounter (statuses as of 05/31/2023) [address] History of Past illness Narrative* Problem Noted Date Diagnosed Date Resolved Date Abdominal pain, unspecified site 10/15/2006 12/07/2020 documented as of this encounter (statuses as of 06/12/2023) [address] History of Past illness Narrative* Problem Noted Date Diagnosed Date Resolved Date Abdominal pain, unspecified site 10/15/2006 12/07/2020 documented as of this encounter (statuses as of 07/13/2023) [address] History of Past illness Narrative* Problem Noted Date Diagnosed Date Resolved Date Abdominal pain, unspecified site 10/15/2006 12/07/2020 documented as of this encounter (statuses as of 07/16/2023) [address] History of Past illness Narrative* Problem Noted Date Diagnosed Date Resolved Date Abdominal pain, unspecified site 10/15/2006 12/07/2020 documented as of this encounter (statuses as of 08/09/2023) [address] History of Past illness Narrative* Problem Noted Date Diagnosed Date Resolved Date Abdominal pain, unspecified site 10/15/2006 12/07/2020 documented as of this encounter (statuses as of 08/13/2023) [address] History of Past illness Narrative* Problem Noted Date Diagnosed Date Resolved Date Abdominal pain, unspecified site 10/15/2006 12/07/2020 documented as of this encounter (statuses as of 08/22/2023) [address] History of Past illness Narrative* Problem Noted Date Diagnosed Date Resolved Date Abdominal pain, unspecified site 10/15/2006 12/07/2020 documented as of this encounter (statuses as of 08/31/2023) [address] History of Past illness Narrative* Problem Noted Date Diagnosed Date Resolved Date Abdominal pain, unspecified site 10/15/2006 12/07/2020 documented as of this encounter (statuses as of 09/03/2023) [address] History of Past illness Narrative* Problem Noted Date Diagnosed Date Resolved Date Abdominal pain, unspecified site 10/15/2006 12/07/2020 documented as of this encounter (statuses as of 10/01/2023) [address] History of Past illness Narrative* Problem Noted Date Diagnosed Date Resolved Date Abdominal pain, unspecified site 10/15/2006 12/07/2020 documented as of this encounter (statuses as of 10/01/2023) [address] History of Past illness Narrative* Problem Noted Date Diagnosed Date Resolved Date Abdominal pain, unspecified site 10/15/2006 12/07/2020 documented as of this encounter (statuses as of 10/01/2023) [address] History of Past illness Narrative* Problem Noted Date Diagnosed Date Resolved Date Abdominal pain, unspecified site 10/15/2006 12/07/2020 documented as of this encounter (statuses as of 10/03/2023) [address] History of Past illness Narrative* Problem Noted Date Diagnosed Date Resolved Date Abdominal pain, unspecified site 10/15/2006 12/07/2020 documented as of this encounter (statuses as of 10/04/2023) [address] History of Past illness Narrative* Problem Noted Date Diagnosed Date Resolved Date Abdominal pain, unspecified site 10/15/2006 12/07/2020 documented as of this encounter (statuses as of 10/04/2023) [address] History of Past illness Narrative* Problem Noted Date Diagnosed Date Resolved Date Abdominal pain, unspecified site 10/15/2006 12/07/2020 documented as of this encounter (statuses as of 10/04/2023) [address] History of Past illness Narrative* Problem Noted Date Diagnosed Date Resolved Date Abdominal pain, unspecified site 10/15/2006 12/07/2020 documented as of this encounter (statuses as of 12/03/2023) [address] History of Past illness Narrative* Problem Noted Date Diagnosed Date Resolved Date Abdominal pain, unspecified site 10/15/2006 12/07/2020 documented as of this encounter (statuses as of 12/06/2023) [address] History of Past illness Narrative* Problem Noted Date Diagnosed Date Resolved Date Abdominal pain, unspecified site 10/15/2006 12/07/2020 documented as of this encounter (statuses as of 12/06/2023) [address] History of Past illness Narrative* Problem Noted Date Diagnosed Date Resolved Date Abdominal pain, unspecified site 10/15/2006 12/07/2020 documented as of this encounter (statuses as of 12/09/2023) [address] History of Past illness Narrative* Problem Noted Date Diagnosed Date Resolved Date Abdominal pain, unspecified site 10/15/2006 12/07/2020 documented as of this encounter (statuses as of 12/09/2023) [address] History of Past illness Narrative* Problem Noted Date Diagnosed Date Resolved Date Abdominal pain, unspecified site 10/15/2006 12/07/2020 documented as of this encounter (statuses as of 12/11/2023) [address] History of Past illness Narrative* Problem Noted Date Diagnosed Date Resolved Date Abdominal pain, unspecified site 10/15/2006 12/07/2020 documented as of this encounter (statuses as of 12/11/2023) [address] History of Past illness Narrative* Problem Noted Date Diagnosed Date Resolved Date Abdominal pain, unspecified site 10/15/2006 12/07/2020 documented as of this encounter (statuses as of 12/12/2023) [place] [id number] History of Past illness Narrative* Problem Noted Date Diagnosed Date Resolved Date Abdominal pain, unspecified site 10/15/2006 12/07/2020 documented as of this encounter (statuses as of 12/12/2023) [address] History of Past illness Narrative* Problem Noted Date Diagnosed Date Resolved Date Abdominal pain, unspecified site 10/15/2006 12/07/2020 documented as of this encounter (statuses as of 01/07/2024) [address] History of Past illness Narrative* Problem Noted Date Diagnosed Date Resolved Date Abdominal pain, unspecified site 10/15/2006 12/07/2020 documented as of this encounter (statuses as of 01/08/2024) [address] History of Past illness Narrative* Problem Noted Date Diagnosed Date Resolved Date Abdominal pain, unspecified site 10/15/2006 12/07/2020 documented as of this encounter (statuses as of 01/27/2024) [place] [address] History of Past illness Narrative* Problem Noted Date Diagnosed Date Resolved Date Abdominal pain, unspecified site 10/15/2006 12/07/2020 documented as of this encounter (statuses as of 02/07/2024) [place] [address] History of Past illness Narrative* Problem Noted Date Diagnosed Date Resolved Date Abdominal pain, unspecified site 10/15/2006 12/07/2020 documented as of this encounter (statuses as of 02/14/2024) [facility] + Plan note No data available for this section [facility] Evaluation note* Diagnosis Fibromyalgia Mylagia and myositis, unspecified [facility]* Diagnosis Need for vaccination Need for prophylactic vaccination and inoculation against unspecified single disease documented in this [facility]* Diagnosis Need for vaccination Need for prophylactic vaccination and inoculation against unspecified single disease documented in this [facility]* Diagnosis Fibromyalgia Mylagia and myositis, unspecified documented in this encounter [facility] note* Diagnosis Encounter for screening mammogram for breast cancer [facility]* Diagnosis Onychomycosis- Primary Dermatophytosis of nail [facility]* Diagnosis Pitted nails- Primary Other specified disease of nail Controlled type 2 diabetes mellitus without complication, with long-term current use of insulin (HCC) Mixed hyperlipidemia Vitamin B12 deficiency Other B-complex deficiencies [facility]* Diagnosis Essential hypertension, benign [facility]* Diagnosis History of iron deficiency Personal history of diseases of blood and blood-forming organs [facility]* Diagnosis Need for vaccination Need for prophylactic vaccination and inoculation against unspecified single disease [facility]* Diagnosis Essential hypertension, benign [facility]* Diagnosis Onychomycosis Dermatophytosis of nail [facility] Diagnosis Mixed hyperlipidemia [facility]* Diagnosis Need for vaccination Need for prophylactic vaccination and inoculation against unspecified single disease [facility]* Diagnosis Fibromyalgia Mylagia and myositis, unspecified [facility]* Diagnosis Controlled type 2 diabetes mellitus without complication, with long-term current use of insulin ([facility])- Primary Vitamin B12 deficiency Other B-complex deficiencies Vitamin D deficiency Unspecified vitamin D deficiency [facility]* Diagnosis Controlled type 2 diabetes mellitus without complication, with long-term current use of insulin (HCC) Essential hypertension, benign [facility]* Diagnosis Controlled type 2 diabetes mellitus without complication, with long-term current use of insulin (HCC) [facility]* Diagnosis Schizophrenia, unspecified type ([facility])- Primary Fibromyalgia Mylagia and myositis, unspecified Moderate episode of recurrent major depressive disorder (HCC) Controlled type 2 diabetes mellitus without complication, with long-term current use of insulin (HCC) Hypertriglyceridemia Pure hyperglyceridemia Subcutaneous nodules Localized superficial swelling, mass, or lump [facility]* Diagnosis 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 DDD (degenerative disc disease), lumbar Degeneration of lumbar or lumbosacral intervertebral disc Narrowing of intervertebral disc space Degeneration of intervertebral disc, site unspecified [facility]* Diagnosis Knee joint injury, initial encounter- Primary [facility] Diagnosis Controlled type 2 diabetes mellitus without complication, with long-term current use of insulin (HCC)- Primary Medication management Encounter for long-term (current) use of other medications [facility]* Diagnosis Controlled type 2 diabetes mellitus without complication, with long-term current use of insulin (HCC) [facility]* Diagnosis Controlled type 2 diabetes mellitus without complication, with long-term current use of insulin (HCC) [facility]* Diagnosis Encounter for screening mammogram for breast cancer documented [facility]* Diagnosis Benign paroxysmal po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- Primary Benign paroxysmal vertigo of both ears Benign paroxysmal positional vertigo documented [facility]* Diagnosis Controlled type 2 diabetes mellitus without complication, with long-term current use of insulin (HCC)- Primary [facility]* Diagnosis Fibromyalgia Mylagia and myositis, unspecified documented [facility]* Diagnosis Generalized pain- Primary Burning sensation Disturbance of skin sensation Weakness Other malaise and fatigue Brain fog Controlled type 2 diabetes mellitus without complication, with long-term current use of insulin (HCC) Fibromyalgia Mylagia and myositis, unspecified [facility]* Diagnosis NANCY positive- Primary Other and [...] nonspecific skin eruption [facility]* Diagnosis Fibromyalgia Mylagia and myositis, unspecified [facility]* Diagnosis Need for vaccination Need for prophylactic vaccination and inoculation against unspecified single disease [facility]* Diagnosis Hammertoe of left foot [facility]* Diagnosis Controlled type 2 diabetes mellitus without complication, with long-term current use of insulin (HCC) [facility]* Diagnosis Essential hypertension, benign Mixed hyperlipidemia documented in this [facility]* Diagnosis Essential hypertension, benign documented in this [facility]* Diagnosis Essential hypertension, benign- Primary documented in this [facility]* Diagnosis Fibromyalgia Mylagia and myositis, unspecified documented in this encounter [facility]* Diagnosis Generalized pain Burning sensation Disturbance of skin sensation Fibromyalgia Mylagia and myositis, unspecified documented in this encounter [facility]* Diagnosis Hypoxia- Primary Hypoxemia documented in this encounter [facility]* Diagnosis Shortness of breath documented in this encounter [facility]* Diagnosis Shortness of breath [facility]* Diagnosis Hypoxia Hypoxemia Shortness of breath documented in this [facility]* Diagnosis Hypoxia- Primary Hypoxemia Shortness of breath [facility]* Diagnosis Need for vaccination Need for prophylactic vaccination and inoculation against unspecified single disease [facility]* Diagnosis Controlled type 2 diabetes mellitus without complication, with long-term current use of insulin (HCC) documented [facility]* Diagnosis Mixed hyperlipidemia Generalized pain Burning sensation Disturbance of skin sensation Fibromyalgia Mylagia and myositis, unspecified documented [facility]* Diagnosis Hypoxia- Primary Hypoxemia On home oxygen therapy Dependence on supplemental oxygen Abnormal lung function test Nonspecific abnormal results of pulmonary system function study documented in this encounter [facility]* Diagnosis Essential hypertension, benign documented [facility]* Diagnosis History of iron deficiency Personal history of diseases of blood and blood-forming organs documented [facility]* Diagnosis History of iron deficiency Personal history of diseases of blood and blood-forming organs documented [facility]* Diagnosis Need for vaccination Need for prophylactic vaccination and inoculation against unspecified single disease documented [facility]* Diagnosis Need for vaccination Need for prophylactic vaccination and inoculation against unspecified single disease documented [facility]* Diagnosis Hypoxemia- Primary documented [facility]* Diagnosis Chest pain, unspecified type- Primary SOBOE (shortness of breath on exertion) Shortness of breath Hot flashes Symptomatic menopausal or female climacteric states Controlled type 2 diabetes mellitus without complication, with long-term current use of insulin ([facility]) Screening for diabetic retinopathy Screening for other eye conditions Irritant contact dermatitis due to cosmetics Dermatitis due to cosmetics Encounter for immunization Need for other specified prophylactic vaccination against single bacterial disease [facility]* Diagnosis Essential hypertension, benign documented in this encounter [facility] note* Diagnosis Encounter for screening mammogram for breast cancer documented [facility]* Diagnosis Essential hypertension, benign documented [facility]* Diagnosis Essential hypertension, benign documented [facility]* Diagnosis Generalized pain Burning sensation Disturbance of skin sensation Fibromyalgia Mylagia and myositis, unspecified documented [facility] this [facility]* Diagnosis Mild persistent asthma without complication- Primary Unspecified asthma documented [facility]* Diagnosis Mild persistent asthma without complication- Primary Unspecified asthma SOB (shortness of breath) Shortness of breath Hypoxemia Morbid obesity (HCC) Morbid obesity documented [facility] this [facility]* Diagnosis Controlled type 2 diabetes mellitus without complication, with long-term current use of insulin ([facility])- Primary Chest pain, unspecified type SOBOE (shortness of breath on exertion) Shortness of breath documented [facility]* Diagnosis Vitamin D deficiency- Primary Unspecified vitamin D deficiency documented [facility]* Diagnosis Generalized pain Burning sensation Disturbance of skin sensation Fibromyalgia Mylagia and myositis, unspecified Controlled type 2 diabetes mellitus without complication, with long-term current use of insulin ([facility]) documented in this encounter [facility]* Diagnosis Pain of right thumb Pain in limb [facility]* Diagnosis Acute cough Shortness of breath documented [facility]* Diagnosis Knee joint injury, initial encounter documented [facility] this [facility]* Diagnosis Chronic bilateral low back pain with bilateral sciatica documented [facility]* Diagnosis Need for vaccination Need for prophylactic vaccination and inoculation against unspecified single disease documented in this encounter [facility] note* Diagnosis Controlled type 2 diabetes mellitus without complication, with long-term current use of insulin (HCC) Medication management Encounter for long-term (current) use of other medications documented in this encounter [facility] note* Diagnosis Fatigue, unspecified type- Primary Generalized pain Burning sensation Disturbance of skin sensation Fibromyalgia Mylagia and myositis, unspecified Controlled type 2 diabetes mellitus without complication, with long-term current use of insulin ([facility]) [facility]* Diagnosis Panic disorder without agoraphobia- Primary Moderate episode of recurrent major depressive disorder (HCC) Insomnia, unspecified type Controlled type 2 diabetes mellitus without complication, with long-term current use of insulin (HCC) Burning sensation Disturbance of skin sensation Fibromyalgia Mylagia and myositis, unspecified Other fatigue Generalized pain documented in this encounter [facility]* Diagnosis Essential hypertension, benign documented [facility]* Diagnosis Schizophrenia, unspecified type (HCC) documented [facility]* Diagnosis Mixed hyperlipidemia documented in this encounter [facility]* Diagnosis Schizophrenia, unspecified type (HCC) Need for vaccination Need for prophylactic vaccination and inoculation against unspecified single disease Essential hypertension, benign Insomnia, unspecified type documented in this encounter [facility]* Diagnosis Controlled type 2 diabetes mellitus without complication, with long-term current use of insulin (HCC) History of iron deficiency Personal history of diseases of blood and blood-forming organs documented in this encounter [facility]* Diagnosis Hypoxemia- Primary documented [facility]* Diagnosis Generalized pain Burning sensation Disturbance of skin sensation Fibromyalgia Mylagia and myositis, unspecified Moderate episode of recurrent major depressive disorder (HCC) documented in this encounter [facility] note* Diagnosis History of iron deficiency Personal history of diseases of blood and blood-forming organs Essential hypertension, benign Insomnia, unspecified type Controlled type 2 diabetes mellitus without complication, with long-term current use of insulin (HCC) Esophageal reflux Need for vaccination Need for prophylactic vaccination and inoculation against unspecified single disease Schizophrenia, unspecified type (HCC) Mixed hyperlipidemia Vitamin D deficiency Unspecified vitamin D deficiency documented [facility]* Diagnosis Encounter for screening mammogram for breast cancer documented in this encounter [facility] note* Diagnosis Dizziness- Primary Dizziness and [...] of other medications [facility]* Diagnosis Generalized pain Burning sensation Disturbance of skin sensation Fibromyalgia Mylagia and myositis, unspecified Moderate episode of recurrent major depressive disorder ([facility]) documented in this encounter [facility] note* Diagnosis Essential hypertension, benign documented in this encounter [facility] for referral (narrative)* Diagnostic Procedure Only (Routine) - Pending Review Specialty Diagnoses / Procedures Referred By Fiorella stanley Referred To Contact [facility] Diagnoses Encounter for screening mammogram for breast cancer Procedures ALTHEA SCREENING SCREENING MAMMOGRAPHY BI 2-VIEW BREAST INC CAD Monik Hackett MD [address] [place] [address] [facility] [address] [place] [id number] Referral ID Status Reason Start Date Expiration Date Visits Requested Visits Authorized [id number] Pending Review Auto-Generat ed Referral 05/23/2022 06/22/2023 1 1 [facility] for referral (narrative)* Outpatient Procedure (Routine) - Authorized Specialty Diagnoses / Procedures Referred By Fiorella stanley Ref[facility] Diagnoses Mixed hyperlipidemia Procedures PVR LEG W/EXC [facility] N-INVAS PHYSIOLOGIC STD LXTR ART COMPL BI Monik Hackett MD [address] [place] [address] [facility] [address] [place] [id number] Referral ID Status Reason Start Date Expiration Date Visits Requested Visits Authorized [id number] Authorized Auto-Generat ed Referral 06/27/2022 06/27/2023 1 1 * Transition of Care (Routine) - Ref Not Required Specialty Diagnoses / Procedures Referred By Fiorella stanley Referred To Contact Dermatology Diagnoses Pitted nails Procedures CONSULT TO DERMATOLOGY Monik Hackett MD [address] [place] [address] Referral ID Status Reason Start Date Expiration Date Visits Requested Visits Authorized [id number] Ref Not Required PCP Requested Referral 06/27/2022 06/27/2023 1 1 [facility] for referral (narrative)* Diagnostic Procedure Only (Routine) - Pending Review Specialty Diagnoses / Procedures Referred By Fiorella stanley Referred To Contact [facility] Diagnoses Subcutaneous nodules Procedures US EXTREMITY MASS/FLUID COLLECTION LEFT Monik Hackett MD [address] [place] [address] [facility] Referral ID Status Reason Start Date Expiration Date Visits Requested Visits Authorized [id number] Pending Review Auto-Generat ed Referral 01/23/2023 02/22/2024 1 1 [facility] for referral (narrative)* Diagnostic Procedure Only (Routine) - Pending Review Specialty Diagnoses / Procedures Referred By Fiorella stanley Referred To Contact [facility] Diagnoses Encounter for screening mammogram for breast cancer Procedures ALTHEA SCREENING SCREENING MAMMOGRAPHY BI 2-VIEW BREAST INC CAD Monik Hackett MD [address] [place] [address] [facility] [address] [place] [address] Referral ID Status Reason Start Date Expiration Date Visits Requested Visits Authorized [id number] Pending Review Auto-Generat ed Referral 05/01/2023 05/30/2024 1 1 [facility] for referral (narrative)* Diagnostic Procedure Only (Routine) - Closed Specialty Diagnoses / Procedures [facility] Referred To Contact XR IMAGING Diagnoses Hammertoe of left foot Procedures XR FOOT GENERAL 3V AP/LAT/OBL LEFT RADEX FOOT COMPLETE MINIMUM 3 VIEWS Narendra Turner [address] [place] [address] [place] [address] Referral ID Status Reason Start Date Expiration Date V isits Requested Visits Authorized [id number] Closed Auto-Generate d Referral 10/09/2022 11/08/2023 1 1 [facility] for referral (narrative)* Outpatient Procedure (Routine) - Pending Review Specialty Diagnoses / Procedures [facility] Referred To Contact [facility] Diagnoses Hypoxemia Procedures ECHO ECHO TTHRC R-T 2D W/WOM-MODE COMPL SPEC&COLR D Camila Johns MD [address] [place] [address] [facility] [address] [id number] Referral ID Status Reason Start Date Expiration Date Visits Requested Visits Authorized [id number] Pending Review Auto-Generat ed Referral 02/27/2024 02/26/2025 1 1 [facility] for referral (narrative)* Outpatient Procedure (Routine) - Pending Review Specialty Diagnoses / Procedures [facility] Referred To Contact [facility] Diagnoses Chest pain, unspecified type SOBOE (shortness of breath on exertion) Procedures STRESS ECHO DOBUTAMINE ECHO TTHRC R-T 2D W/WO M-MODE COMPLETE REST&ST Spencer, Jaime, [employer] DIRECTOR.SENIOR INFRASTRUCTURE ARCHITECT [address] [place] [address] [facility] [address] [place] [address] Referral ID Status Reason Start Date Expiration Date Visits Requested Visits Authorized [id number] Pending Review Auto-Generat ed Referral 02/27/2024 02/26/2025 1 1 * Medication Prior Authorization - Closed Specialty Diagnoses / Procedures Referred By Fiorella stanley Referred To Contact Jaime Spencer APRN.CNS [address] [place] [address] Referral ID Status Reason Start Date Expiration Date Visits Re quested Visits Authorized [id number] Closed 1 1 * Outpatient Procedure (Routine) - Pending Review Specialty Diagnoses / Procedures Referred By Fiorella stanley Referred To [facility] Diagnoses Chest pain, unspecified type Procedures ECG COMPLETE ECG ROUTINE ECG W/LEAST 12 LDS W/I&R Jaime Spencer APRN.SENIOR INFRASTRUCTURE ARCHITECT [address] [place] [address] [facility] [address] [place] [address] Referral ID Status Reason Start Date Expiration Date Visits Requested Visits Authorized [id number] Pending Review Auto-Generat ed Referral 02/27/2024 02/26/2025 1 1 * Consult, Test, Treat (Routine) - Authorized Specialty Diagnoses / Procedures Referred By Fiorella stanley Referred To Contact Ophthalmology Diagnoses Screening for diabetic retinopathy Controlled type 2 diabetes mellitus without complication, with long-term current use of insulin (HCC) Procedures CONSULT TO OPHTHALMOLOGY OFFICE/OUTPATIENT [facility] 60 MINUTES Jaime Spencer APRN.SENIOR INFRASTRUCTURE ARCHITECT [address] [place] [address] Referral ID Status Reason Start Date Expiration Date Visits Requested Visits Authorized [id number] Authorized PCP Requested Referral 02/27/2024 02/26/2025 1 1 [facility] for referral (narrative)* Diagnostic Procedure Only (Routine) - Pending Review Specialty Diagnoses / Procedures Referred By Fiorella t Referred To Contact BR IMAGING Diagnoses Encounter for screening mammogram for breast cancer Procedures ALTHEA SCREENING W CORIN SCREENING DIGITAL BREAST TOMOSYNTHESIS BI SCREENING MAMMOGRAPHY BI 2-VIEW BREAST INC Monik Hastings MD [address] [place] [address] [facility] [address] [place] [address] Referral ID Status Reason Start Date Expiration Date Visits Requested Visits Authorized [id number] Pending Review Auto-Generat ed Referral 04/08/2024 05/08/2025 1 1 [facility] for referral (narrative)* Diagnostic Procedure Only (Urgent) - Closed Specialty Diagnoses / Procedures Referred By Fiorella t Referred To Contact XR IMAGING Diagnoses Pain of right thumb Procedures XR DIGIT GENERAL 3V FRONTAL/LAT/OBL RIGHT RADEX FINGR MINIMUM 2 VIEWS Gavi Norwood APRN.DIANETIC COUNSELOR [address] [place] [address] [place] [address] Referral ID Status Reason Start Date Expiration Date V isits Requested Visits Authorized [id number] Closed Auto-Generate d Referral 11/25/2023 12/24/2024 1 1 [facility] for referral (narrative)* Diagnostic Procedure Only (Urgent) - Closed Specialty Diagnoses / Procedures Referred By Fiorella t Referred To Contact XR IMAGING Diagnoses Knee joint injury, initial encounter Procedures XR KNEE GENERAL 4V AP BOTH/PA BOTH/LAT/MERC BILATERAL RADIOLOGIC EXAM KNEE COMPLETE 4/MORE VIEWS Gavi Norwood APRN.CNP [address] [place] [address] [place] [address] Referral ID Status Reason Start Date Expiration Date V isits Requested Visits Authorized [id number] Closed Auto-Generate d Referral 03/26/2023 04/24/2024 1 1 [facility] for referral (narrative)* Diagnostic Procedure Only (Routine) - Closed Specialty Diagnoses / Procedures Referred By Contac t Referred To Contact XR IMAGING Diagnoses Chronic bilateral low back pain with bilateral sciatica Procedures XR LUMBAR GENERAL 3V AP/LAT/L5-S1 RADEX SPINE LUMBOSACRAL 2/3 VIEWS Monik Hackett MD [address] [place] [address] [place] [address] Referral ID Status Reason Start Date Expiration Date V isits Requested Visits Authorized [id number] Closed Auto-Generate d Referral 02/22/2023 03/23/2024 1 1 [facility] for referral (narrative)* Medication Prior Authorization - Closed Specialty Diagnoses / Procedures Referred By Contac t Referred To Contact Lala Harrison APRN.DIANETIC COUNSELOR [address] [place] [address] Phone: tel: fax: Referral ID Status Reason Start Date Expiration Date Visits Re quested Visits Authorized [id number] Closed 1 1 [facility] for visit Narrative* Diagnostic Procedure Only (Routine) - Closed Specialty Diagnoses / Procedures Referred By Contac t Referred To Contact XR IMAGING Diagnoses Hammertoe of left foot Procedures XR FOOT GENERAL 3V AP/LAT/OBL LEFT RADEX FOOT COMPLETE MINIMUM 3 VIEWS Narendra Turner [address] [place] [address] [place] [address] Referral ID Status Reason Start Date Expiration Date V isits Requested Visits Authorized [id number] Closed Auto-Generate d Referral 10/09/2022 11/08/2023 1 1 [facility] for visit Narrative* Diagnostic Procedure Only (Urgent) - Closed Specialty Diagnoses / Procedures Referred By Contac t Referred To Contact XR IMAGING Diagnoses Pain of right thumb Procedures XR DIGIT GENERAL 3V FRONTAL/LAT/OBL RIGHT RADEX FINGR MINIMUM 2 VIEWS Gavi Norwood APRN.DIANETIC COUNSELOR [address] [place] [address] [place] [address] Referral ID Status Reason Start Date Expiration Date V isits Requested Visits Authorized [id number] Closed Auto-Generate d Referral 11/25/2023 12/24/2024 1 1 [facility] for visit Narrative* Diagnostic Procedure Only (Urgent) - Closed Specialty Diagnoses / Procedures Referred By Contac t Referred To Contact XR IMAGING Diagnoses Knee joint injury, initial encounter Procedures XR KNEE GENERAL 4V AP BOTH/PA BOTH/LAT/MERC BILATERAL RADIOLOGIC EXAM KNEE COMPLETE 4/MORE VIEWS Gavi Norwood, [employer] DIRECTOR.DIANETIC COUNSELOR [address] [place] [address] [place] [address] Referral ID Status Reason Start Date Expiration Date V isits Requested Visits Authorized [id number] Closed Auto-Generate d Referral 03/26/2023 04/24/2024 1 1 [facility] for visit Narrative* Diagnostic Procedure Only (Routine) - Closed Specialty Diagnoses / Procedures Referred By Contac t Referred To Contact XR IMAGING Diagnoses Chronic bilateral low back pain with bilateral sciatica Procedures XR LUMBAR GENERAL 3V AP/LAT/L5-S1 RADEX SPINE LUMBOSACRAL 2/3 VIEWS Monik Hackett MD [address] [place] [address] [place] [address] Referral ID Status Reason Start Date Expiration Date V isits Requested Visits Authorized [id number] Closed Auto-Generate d Referral 02/22/2023 03/23/2024 1 1 [facility] Summary Purpose Family History No Family [...] space Procedures CONSULT TO PAIN MGT OFFICE/OUTPATIENT NEW HIGH MDM 60-74 MINUTES Monik Hackett MD [address] [place] [address] Referral ID Status Reason Start Date Expiration Date Visits Requested Visits Authorized [id number] Authorized PCP Requested Referral 02/27/2023 02/27/2024 1 1 Specialty Diagnoses / Procedures Referred By Contac t Referred To Contact Orthopedics Diagnoses Knee joint injury, initial encounter Procedures CONSULT PANEL TO ORTHOPAEDICS OFFICE/OUTPATIENT NEW HIGH MDM 60-74 MINUTES Gavi Norwood, JENN.DIANETIC COUNSELOR [address] [id number] Referral ID Status Reason Start Date Expiration Date Visits Requested Visits Authorized [id number] Authorized PCP Requested Referral 03/26/2023 03/25/2024 1 1 Specialty Diagnoses / Procedures Referred By Contac t Referred To Contact XR IMAGING Diagnoses Knee joint injury, initial encounter Procedures XR KNEE GENERAL 4V AP BOTH/PA BOTH/LAT/MERC BILATERAL RADIOLOGIC EXAM KNEE COMPLETE 4/MORE VIEWS Gavi Norwood, JENN.DIANETIC COUNSELOR [address] [id number] Xr Imaging Referral ID Status Reason Start Date Expiration Date V isits Requested Visits Authorized [id number] Closed Auto-Generate d Referral 03/26/2023 04/24/2024 1 1 Specialty Diagnoses / Procedures Referred By Contac t Referred To Contact Diagnoses Controlled type 2 diabetes mellitus without complication, with long-term current use of insulin ([facility]) Monik Hackett MD [address] [place] [address] Referral ID Status Reason Start Date Expiration Date Visits Re quested Visits Authorized [id number] Closed 1 1 Specialty Diagnoses / Procedures Referred By Contac t Referred To Contact Monik Hackett MD [address] [place] [address] Referral ID Status Reason Start Date Expiration Date Visits Re quested Visits Authorized [id number] Closed 1 1 Specialty Diagnoses / Procedures Referred By Contac t Referred To Contact [facility] Diagnoses Benign paroxysmal vertigo of both ears Benign paroxysmal po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 Procedures PT REHAB FOLLOW UP ORDER THERAPEUTIC EXERCISES RE, EA 15 MIN. Pt [facility] [address] [place] [address] [facility] [place] [address] [place] [address] Referral ID Status Reason Start Date Expiration Date Visits Requested Visits Authorized [id number] Pending Review PCP Requested Referral Auto-Generate d Referral 05/23/2023 08/21/2023 1 1 Referral ID Status Reason Start Date Expiration Date Visits Re quested Visits Authorized [id number] Closed 1 1 Specialty Diagnoses / Procedures Referred By Fiorella t Referred To Contact Rheumatology Diagnoses NANCY positive Procedures CONSULT TO RHEUM/IMMUN DISEASE OFFICE/OUTPATIENT [facility] 60-74 MINUTES Jaime Spencer, [employer] DIRECTOR.SENIOR INFRASTRUCTURE ARCHITECT [address] [place] [address] Referral ID Status Reason Start Date Expiration Date Visits Requested Visits Authorized [id number] Authorized PCP Requested Referral 08/08/2024 1 1 Specialty Diagnoses / Procedures Referred By Fiorella t Referred To Contact Diagnoses Controlled type 2 diabetes mellitus without complication, with long-term current use of insulin (HCC) Procedures ENDOCRINOLOGY DIETITIAN VISIT (MNT) MEDICAL NUTRITION ASSMT&IVNTJ INDIV EACH 15 [place] MEDICAL NUTRITION ASSMT&IVNTJ INDIV EACH 15 [place] MEDICAL NUTRITION ASSMT&IVNTJ INDIV EACH 15 [place] MEDICAL NUTRITION ASSMT&IVNTJ INDIV EACH 15 [place] Lala Harrison, [employer] DIRECTOR.DIANETIC COUNSELOR [address] [place] [address] Referral ID Status Reason Start Date Expiration Date Visits Requested Visits Authorized [id number] Authorized PCP Requested Referral 05/06/2024 05/06/2025 1 1 Referral ID Status Reason Start Date Expiration Date Visits Re quested Visits Authorized [id number] Closed 1 1 Medications Administered Section Inactive [...] section and content) DATE CREATED AUTHOR 09/01/2020 [facility] ([place]) DATE CREATED AUTHOR AUTHOR'S ORGANIZ ATION 06/01/2023 [facility] DATE CREATED AUTHOR AUTHOR'S ORGANIZ ATION 10/07/2023 [facility] DATE CREATED AUTHOR AUTHOR'S ORGANIZ ATION 07/31/2025 [facility] Source Comments (unrecognize d section and content) In the event this informatio n is protected by the Federal Confidentiality of Alcohol and Drug Abuse Patient Records regulations: The Federal rules restrict any use of the information to criminally investigate or prosecute any alcohol or drug abuse patient.[facility] the event this information is protected by the Federal Confidentiality of Alcohol and Drug Abuse Patient Records regulations: The Federal rules restrict any use of the information to criminally investigate or prosecute any alcohol or drug abuse patient.[facility] HospitalIn the event this information is protected by the Federal Confidentiality of Alcohol and Drug Abuse Patient Records regulations: The Federal rules restrict any use of the information to criminally investigate or prosecute any alcohol or drug abuse patient.[facility] HospitalIn the event this information is protected by the Federal Confidentiality of Alcohol and Drug Abuse Patient Records regulations: The Federal rules restrict any use of the information to criminally investigate or prosecute any alcohol or drug abuse patient.[facility] HospitalIn the event this information is protected by the Federal Confidentiality of Alcohol and Drug Abuse Patient Records regulations: The Federal rules restrict any use of the information to criminally investigate or prosecute any alcohol or drug abuse patient.[facility] HospitalIn the event this information is protected by the Federal Confidentiality of Alcohol and Drug Abuse Patient Records regulations: The Federal rules restrict any use of the information to criminally investigate or prosecute any alcohol or drug abuse patient.[facility] HospitalIn the event this information is protected by the Federal Confidentiality of Alcohol and Drug Abuse Patient Records regulations: The Federal rules restrict any use of the information to criminally investigate or prosecute any alcohol or drug abuse patient.[facility] HospitalIn the event this information is protected by the Federal Confidentiality of Alcohol and Drug Abuse Patient Records regulations: The Federal rules restrict any use of the information to criminally investigate or prosecute any alcohol or drug abuse patient.[facility] HospitalIn the event this information is protected by the Federal Confidentiality of Alcohol and Drug Abuse Patient Records regulations: The Federal rules restrict any use of the information to criminally investigate or prosecute any alcohol or drug abuse patient.[facility] HospitalIn the event this information is protected by the Federal Confidentiality of Alcohol and Drug Abuse Patient Records regulations: The Federal rules restrict any use of the information to criminally investigate or prosecute any alcohol or drug abuse patient.[facility] HospitalIn the event this information is protected by the Federal Confidentiality of Alcohol and Drug Abuse Patient Records regulations: The Federal rules restrict any use of the information to criminally investigate or prosecute any alcohol or drug abuse patient.[facility] HospitalIn the event this information is protected by the Federal Confidentiality of Alcohol and Drug Abuse Patient Records regulations: The Federal rules restrict any use of the information to criminally investigate or prosecute any alcohol or drug abuse patient.[facility] HospitalIn the event this information is protected by the Federal Confidentiality of Alcohol and Drug Abuse Patient Records regulations: The Federal rules restrict any use of the information to criminally investigate or prosecute any alcohol or drug abuse patient.[facility] HospitalIn the event this information is protected by the Federal Confidentiality of Alcohol and Drug Abuse Patient Records regulations: The Federal rules restrict any use of the information to criminally investigate or prosecute any alcohol or drug abuse patient.[facility] HospitalIn the event this information is protected by the Federal Confidentiality of Alcohol and Drug Abuse Patient Records regulations: The Federal rules restrict any use of the information to criminally investigate or prosecute any alcohol or drug abuse patient.[facility] HospitalIn the event this information is protected by the Federal Confidentiality of Alcohol and Drug Abuse Patient Records regulations: The Federal rules restrict any use of the information to criminally investigate or prosecute any alcohol or drug abuse patient.[facility] HospitalIn the event this information is protected by the Federal Confidentiality of Alcohol and Drug Abuse Patient Records regulations: The Federal rules restrict any use of the information to criminally investigate or prosecute any alcohol or drug abuse patient.[facility] HospitalIn the event this information is protected by the Federal Confidentiality of Alcohol and Drug Abuse Patient Records regulations: The Federal rules restrict any use of the information to criminally investigate or prosecute any alcohol or drug abuse patient.[facility] HospitalIn the event this information is protected by the Federal Confidentiality of Alcohol and Drug Abuse Patient Records regulations: The Federal rules restrict any use of the information to criminally investigate or prosecute any alcohol or drug abuse patient.[facility] HospitalIn the event this information is protected by the Federal Confidentiality of Alcohol and Drug Abuse Patient Records regulations: The Federal rules restrict any use of the information to criminally investigate or prosecute any alcohol or drug abuse patient.[facility] HospitalIn the event this information is protected by the Federal Confidentiality of Alcohol and Drug Abuse Patient Records regulations: The Federal rules restrict any use of the information to criminally investigate or prosecute any alcohol or drug abuse patient.[facility] HospitalIn the event this information is protected by the Federal Confidentiality of Alcohol and Drug Abuse Patient Records regulations: The Federal rules restrict any use of the information to criminally investigate or prosecute any alcohol or drug abuse patient.[facility] HospitalIn the event this information is protected by the Federal Confidentiality of Alcohol and Drug Abuse Patient Records regulations: The Federal rules restrict any use of the information to criminally investigate or prosecute any alcohol or drug abuse patient.[facility] HospitalIn the event this information is protected by the Federal Confidentiality of Alcohol and Drug Abuse Patient Records regulations: The Federal rules restrict any use of the information to criminally investigate or prosecute any alcohol or drug abuse patient.[facility] HospitalIn the event this information is protected by the Federal Confidentiality of Alcohol and Drug Abuse Patient Records regulations: The Federal rules restrict any use of the information to criminally investigate or prosecute any alcohol or drug abuse patient.[facility] HospitalIn the event this information is protected by the Federal Confidentiality of Alcohol and Drug Abuse Patient Records regulations: The Federal rules restrict any use of the information to criminally investigate or prosecute any alcohol or drug abuse patient.[facility] HospitalIn the event this information is protected by the Federal Confidentiality of Alcohol and Drug Abuse Patient Records regulations: The Federal rules restrict any use of the information to criminally investigate or prosecute any alcohol or drug abuse patient.[facility] HospitalIn the event this information is protected by the Federal Confidentiality of Alcohol and Drug Abuse Patient Records regulations: The Federal rules restrict any use of the information to criminally investigate or prosecute any alcohol or drug abuse patient.[facility] HospitalIn the event this information is protected by the Federal Confidentiality of Alcohol and Drug Abuse Patient Records regulations: The Federal rules restrict any use of the information to criminally investigate or prosecute any alcohol or drug abuse patient.[facility] HospitalIn the event this information is protected by the Federal Confidentiality of Alcohol and Drug Abuse Patient Records regulations: The Federal rules restrict any use of the information to criminally investigate or prosecute any alcohol or drug abuse patient.[facility] HospitalIn the event this information is protected by the Federal Confidentiality of Alcohol and Drug Abuse Patient Records regulations: The Federal rules restrict any use of the information to criminally investigate or prosecute any alcohol or drug abuse patient.[facility] HospitalIn the event this information is protected by the Federal Confidentiality of Alcohol and Drug Abuse Patient Records regulations: The Federal rules restrict any use of the information to criminally investigate or prosecute any alcohol or drug abuse patient.[facility] HospitalIn the event this information is protected by the Federal Confidentiality of Alcohol and Drug Abuse Patient Records regulations: The Federal rules restrict any use of the information to criminally investigate or prosecute any alcohol or drug abuse patient.[facility] HospitalIn the event this information is protected by the Federal Confidentiality of Alcohol and Drug Abuse Patient Records regulations: The Federal rules restrict any use of the information to criminally investigate or prosecute any alcohol or drug abuse patient.[facility] HospitalIn the event this information is protected by the Federal Confidentiality of Alcohol and Drug Abuse Patient Records regulations: The Federal rules restrict any use of the information to criminally investigate or prosecute any alcohol or drug abuse patient.[facility] HospitalIn the event this information is protected by the Federal Confidentiality of Alcohol and Drug Abuse Patient Records regulations: The Federal rules restrict any use of the information to criminally investigate or prosecute any alcohol or drug abuse patient.[facility] HospitalIn the event this information is protected by the Federal Confidentiality of Alcohol and Drug Abuse Patient Records regulations: The Federal rules restrict any use of the information to criminally investigate or prosecute any alcohol or drug abuse patient.[facility] HospitalIn the event this information is protected by the Federal Confidentiality of Alcohol and Drug Abuse Patient Records regulations: The Federal rules restrict any use of the information to criminally investigate or prosecute any alcohol or drug abuse patient.[facility] HospitalIn the event this information is protected by the Federal Confidentiality of Alcohol and Drug Abuse Patient Records regulations: The Federal rules restrict any use of the information to criminally investigate or prosecute any alcohol or drug abuse patient.[facility] HospitalIn the event this information is protected by the Federal Confidentiality of Alcohol and Drug Abuse Patient Records regulations: The Federal rules restrict any use of the information to criminally investigate or prosecute any alcohol or drug abuse patient.[facility] HospitalIn the event this information is protected by the Federal Confidentiality of Alcohol and Drug Abuse Patient Records regulations: The Federal rules restrict any use of the information to criminally investigate or prosecute any alcohol or drug abuse patient.[facility] HospitalIn the event this information is protected by the Federal Confidentiality of Alcohol and Drug Abuse Patient Records regulations: The Federal rules restrict any use of the information to criminally investigate or prosecute any alcohol or drug abuse patient.[facility] HospitalIn the event this information is protected by the Federal Confidentiality of Alcohol and Drug Abuse Patient Records regulations: The Federal rules restrict any use of the information to criminally investigate or prosecute any alcohol or drug abuse patient.[facility] HospitalIn the event this information is protected by the Federal Confidentiality of Alcohol and Drug Abuse Patient Records regulations: The Federal rules restrict any use of the information to criminally investigate or prosecute any alcohol or drug abuse patient.[facility] HospitalIn the event this information is protected by the Federal Confidentiality of Alcohol and Drug Abuse Patient Records regulations: The Federal rules restrict any use of the information to criminally investigate or prosecute any alcohol or drug abuse patient.[facility] HospitalIn the event this information is protected by the Federal Confidentiality of Alcohol and Drug Abuse Patient Records regulations: The Federal rules restrict any use of the information to criminally investigate or prosecute any alcohol or drug abuse patient.[facility] HospitalIn the event this information is protected by the Federal Confidentiality of Alcohol and Drug Abuse Patient Records regulations: The Federal rules restrict any use of the information to criminally investigate or prosecute any alcohol or drug abuse patient.[facility] HospitalIn the event this information is protected by the Federal Confidentiality of Alcohol and Drug Abuse Patient Records regulations: The Federal rules restrict any use of the information to criminally investigate or prosecute any alcohol or drug abuse patient.[facility] HospitalIn the event this information is protected by the Federal Confidentiality of Alcohol and Drug Abuse Patient Records regulations: The Federal rules restrict any use of the information to criminally investigate or prosecute any alcohol or drug abuse patient.[facility] HospitalIn the event this information is protected by the Federal Confidentiality of Alcohol and Drug Abuse Patient Records regulations: The Federal rules restrict any use of the information to criminally investigate or prosecute any alcohol or drug abuse patient.[facility] HospitalIn the event this information is protected by the Federal Confidentiality of Alcohol and Drug Abuse Patient Records regulations: The Federal rules restrict any use of the information to criminally investigate or prosecute any alcohol or drug abuse patient.[facility] HospitalIn the event this information is protected by the Federal Confidentiality of Alcohol and Drug Abuse Patient Records regulations: The Federal rules restrict any use of the information to criminally investigate or prosecute any alcohol or drug abuse patient.[facility] HospitalIn the event this information is protected by the Federal Confidentiality of Alcohol and Drug Abuse Patient Records regulations: The Federal rules restrict any use of the information to criminally investigate or prosecute any alcohol or drug abuse patient.[facility] HospitalIn the event this information is protected by the Federal Confidentiality of Alcohol and Drug Abuse Patient Records regulations: The Federal rules restrict any use of the information to criminally investigate or prosecute any alcohol or drug abuse patient.[facility] HospitalIn the event this information is protected by the Federal Confidentiality of Alcohol and Drug Abuse Patient Records regulations: The Federal rules restrict any use of the information to criminally investigate or prosecute any alcohol or drug abuse patient.[facility] HospitalIn the event this information is protected by the Federal Confidentiality of Alcohol and Drug Abuse Patient Records regulations: The Federal rules restrict any use of the information to criminally investigate or prosecute any alcohol or drug abuse patient.[facility] HospitalIn the event this information is protected by the Federal Confidentiality of Alcohol and Drug Abuse Patient Records regulations: The Federal rules restrict any use of the information to criminally investigate or prosecute any alcohol or drug abuse patient.[facility] HospitalIn the event this information is protected by the Federal Confidentiality of Alcohol and Drug Abuse Patient Records regulations: The Federal rules restrict any use of the information to criminally investigate or prosecute any alcohol or drug abuse patient.[facility] HospitalIn the event this information is protected by the Federal Confidentiality of Alcohol and Drug Abuse Patient Records regulations: The Federal rules restrict any use of the information to criminally investigate or prosecute any alcohol or drug abuse patient.[facility] HospitalIn the event this information is protected by the Federal Confidentiality of Alcohol and Drug Abuse Patient Records regulations: The Federal rules restrict any use of the information to criminally investigate or prosecute any alcohol or drug abuse patient.[facility] HospitalIn the event this information is protected by the Federal Confidentiality of Alcohol and Drug Abuse Patient Records regulations: The Federal rules restrict any use of the information to criminally investigate or prosecute any alcohol or drug abuse patient.[facility] HospitalIn the event this information is protected by the Federal Confidentiality of Alcohol and Drug Abuse Patient Records regulations: The Federal rules restrict any use of the information to criminally investigate or prosecute any alcohol or drug abuse patient.[facility] HospitalIn the event this information is protected by the Federal Confidentiality of Alcohol and Drug Abuse Patient Records regulations: The Federal rules restrict any use of the information to criminally investigate or prosecute any alcohol or drug abuse patient.[facility] HospitalIn the event this information is protected by the Federal Confidentiality of Alcohol and Drug Abuse Patient Records regulations: The Federal rules restrict any use of the information to criminally investigate or prosecute any alcohol or drug abuse patient.[facility] HospitalIn the event this information is protected by the Federal Confidentiality of Alcohol and Drug Abuse Patient Records regulations: The Federal rules restrict any use of the information to criminally investigate or prosecute any alcohol or drug abuse patient.[facility] HospitalIn the event this information is protected by the Federal Confidentiality of Alcohol and Drug Abuse Patient Records regulations: The Federal rules restrict any use of the information to criminally investigate or prosecute any alcohol or drug abuse patient.[facility] HospitalIn the event this information is protected by the Federal Confidentiality of Alcohol and Drug Abuse Patient Records regulations: The Federal rules restrict any use of the information to criminally investigate or prosecute any alcohol or drug abuse patient.[facility] HospitalIn the event this information is protected by the Federal Confidentiality of Alcohol and Drug Abuse Patient Records regulations: The Federal rules restrict any use of the information to criminally investigate or prosecute any alcohol or drug abuse patient.[facility] HospitalIn the event this information is protected by the Federal Confidentiality of Alcohol and Drug Abuse Patient Records regulations: The Federal rules restrict any use of the information to criminally investigate or prosecute any alcohol or drug abuse patient.[facility] HospitalIn the event this information is protected by the Federal Confidentiality of Alcohol and Drug Abuse Patient Records regulations: The Federal rules restrict any use of the information to criminally investigate or prosecute any alcohol or drug abuse patient.[facility] HospitalIn the event this information is protected by the Federal Confidentiality of Alcohol and Drug Abuse Patient Records regulations: The Federal rules restrict any use of the information to criminally investigate or prosecute any alcohol or drug abuse patient.[facility] HospitalIn the event this information is protected by the Federal Confidentiality of Alcohol and Drug Abuse Patient Records regulations: The Federal rules restrict any use of the information to criminally investigate or prosecute any alcohol or drug abuse patient.[facility] HospitalIn the event this information is protected by the Federal Confidentiality of Alcohol and Drug Abuse Patient Records regulations: The Federal rules restrict any use of the information to criminally investigate or prosecute any alcohol or drug abuse patient.[facility] HospitalIn the event this information is protected by the Federal Confidentiality of Alcohol and Drug Abuse Patient Records regulations: The Federal rules restrict any use of the information to criminally investigate or prosecute any alcohol or drug abuse patient.[facility] HospitalIn the event this information is protected by the Federal Confidentiality of Alcohol and Drug Abuse Patient Records regulations: The Federal rules restrict any use of the information to criminally investigate or prosecute any alcohol or drug abuse patient.[facility] HospitalIn the event this information is protected by the Federal Confidentiality of Alcohol and Drug Abuse Patient Records regulations: The Federal rules restrict any use of the information to criminally investigate or prosecute any alcohol or drug abuse patient.[facility] HospitalIn the event this information is protected by the Federal Confidentiality of Alcohol and Drug Abuse Patient Records regulations: The Federal rules restrict any use of the information to criminally investigate or prosecute any alcohol or drug abuse patient.[facility] HospitalIn the event this information is protected by the Federal Confidentiality of Alcohol and Drug Abuse Patient Records regulations: The Federal rules restrict any use of the information to criminally investigate or prosecute any alcohol or drug abuse patient.[facility] HospitalIn the event this information is protected by the Federal Confidentiality of Alcohol and Drug Abuse Patient Records regulations: The Federal rules restrict any use of the information to criminally investigate or prosecute any alcohol or drug abuse patient.[facility] HospitalIn the event this information is protected by the Federal Confidentiality of Alcohol and Drug Abuse Patient Records regulations: The Federal rules restrict any use of the information to criminally investigate or prosecute any alcohol or drug abuse patient.[facility] HospitalIn the event this information is protected by the Federal Confidentiality of Alcohol and Drug Abuse Patient Records regulations: The Federal rules restrict any use of the information to criminally investigate or prosecute any alcohol or drug abuse patient.[facility] HospitalIn the event this information is protected by the Federal Confidentiality of Alcohol and Drug Abuse Patient Records regulations: The Federal rules restrict any use of the information to criminally investigate or prosecute any alcohol or drug abuse patient.[facility] HospitalIn the event this information is protected by the Federal Confidentiality of Alcohol and Drug Abuse Patient Records regulations: The Federal rules restrict any use of the information to criminally investigate or prosecute any alcohol or drug abuse patient.[facility] HospitalIn the event this information is protected by the Federal Confidentiality of Alcohol and Drug Abuse Patient Records regulations: The Federal rules restrict any use of the information to criminally investigate or prosecute any alcohol or drug abuse patient.[facility] HospitalIn the event this information is protected by the Federal Confidentiality of Alcohol and Drug Abuse Patient Records regulations: The Federal rules restrict any use of the information to criminally investigate or prosecute any alcohol or drug abuse patient.[facility] HospitalIn the event this information is protected by the Federal Confidentiality of Alcohol and Drug Abuse Patient Records regulations: The Federal rules restrict any use of the information to criminally investigate or prosecute any alcohol or drug abuse patient.[facility] HospitalIn the event this information is protected by the Federal Confidentiality of Alcohol and Drug Abuse Patient Records regulations: The Federal rules restrict any use of the information to criminally investigate or prosecute any alcohol or drug abuse patient.[facility] HospitalIn the event this information is protected by the Federal Confidentiality of Alcohol and Drug Abuse Patient Records regulations: The Federal rules restrict any use of the information to criminally investigate or prosecute any alcohol or drug abuse patient.[facility] HospitalIn the event this information is protected by the Federal Confidentiality of Alcohol and Drug Abuse Patient Records regulations: The Federal rules restrict any use of the information to criminally investigate or prosecute any alcohol or drug abuse patient.[facility] HospitalIn the event this information is protected by the Federal Confidentiality of Alcohol and Drug Abuse Patient Records regulations: The Federal rules restrict any use of the information to criminally investigate or prosecute any alcohol or drug abuse patient.[facility] HospitalIn the event this information is protected by the Federal Confidentiality of Alcohol and Drug Abuse Patient Records regulations: The Federal rules restrict any use of the information to criminally investigate or prosecute any alcohol or drug abuse patient.[facility] HospitalIn the event this information is protected by the Federal Confidentiality of Alcohol and Drug Abuse Patient Records regulations: The Federal rules restrict any use of the information to criminally investigate or prosecute any alcohol or drug abuse patient.[facility] HospitalIn the event this information is protected by the Federal Confidentiality of Alcohol and Drug Abuse Patient Records regulations: The Federal rules restrict any use of the information to criminally investigate or prosecute any alcohol or drug abuse patient.[facility] HospitalIn the event this information is protected by the Federal Confidentiality of Alcohol and Drug Abuse Patient Records regulations: The Federal rules restrict any use of the information to criminally investigate or prosecute any alcohol or drug abuse patient.[facility] HospitalIn the event this information is protected by the Federal Confidentiality of Alcohol and Drug Abuse Patient Records regulations: The Federal rules restrict any use of the information to criminally investigate or prosecute any alcohol or drug abuse patient.[facility] HospitalIn the event this information is protected by the Federal Confidentiality of Alcohol and Drug Abuse Patient Records regulations: The Federal rules restrict any use of the information to criminally investigate or prosecute any alcohol or drug abuse patient.[facility] HospitalIn the event this information is protected by the Federal Confidentiality of Alcohol and Drug Abuse Patient Records regulations: The Federal rules restrict any use of the information to criminally investigate or prosecute any alcohol or drug abuse patient.[facility] HospitalIn the event this information is protected by the Federal Confidentiality of Alcohol and Drug Abuse Patient Records regulations: The Federal rules restrict any use of the information to criminally investigate or prosecute any alcohol or drug abuse patient.[facility] HospitalIn the event this information is protected by the Federal Confidentiality of Alcohol and Drug Abuse Patient Records regulations: The Federal rules restrict any use of the information to criminally investigate or prosecute any alcohol or drug abuse patient.[facility] HospitalIn the event this information is protected by the Federal Confidentiality of Alcohol and Drug Abuse Patient Records regulations: The Federal rules restrict any use of the information to criminally investigate or prosecute any alcohol or drug abuse patient.[facility] HospitalIn the event this information is protected by the Federal Confidentiality of Alcohol and Drug Abuse Patient Records regulations: The Federal rules restrict any use of the information to criminally investigate or prosecute any alcohol or drug abuse patient.[facility] HospitalIn the event this information is protected by the Federal Confidentiality of Alcohol and Drug Abuse Patient Records regulations: The Federal rules restrict any use of the information to criminally investigate or prosecute any alcohol or drug abuse patient.[facility] HospitalIn the event this information is protected by the Federal Confidentiality of Alcohol and Drug Abuse Patient Records regulations: The Federal rules restrict any use of the information to criminally investigate or prosecute any alcohol or drug abuse patient.[facility] HospitalIn the event this information is protected by the Federal Confidentiality of Alcohol and Drug Abuse Patient Records regulations: The Federal rules restrict any use of the information to criminally investigate or prosecute any alcohol or drug abuse patient.[facility] HospitalIn the event this information is protected by the Federal Confidentiality of Alcohol and Drug Abuse Patient Records regulations: The Federal rules restrict any use of the information to criminally investigate or prosecute any alcohol or drug abuse patient.[facility] HospitalIn the event this information is protected by the Federal Confidentiality of Alcohol and Drug Abuse Patient Records regulations: The Federal rules restrict any use of the information to criminally investigate or prosecute any alcohol or drug abuse patient.[facility] HospitalIn the event this information is protected by the Federal Confidentiality of Alcohol and Drug Abuse Patient Records regulations: The Federal rules restrict any use of the information to criminally investigate or prosecute any alcohol or drug abuse patient.[facility] HospitalIn the event this information is protected by the Federal Confidentiality of Alcohol and Drug Abuse Patient Records regulations: The Federal rules restrict any use of the information to criminally investigate or prosecute any alcohol or drug abuse patient.[facility] HospitalIn the event this information is protected by the Federal Confidentiality of Alcohol and Drug Abuse Patient Records regulations: The Federal rules restrict any use of the information to criminally investigate or prosecute any alcohol or drug abuse patient.[facility] HospitalIn the event this information is protected by the Federal Confidentiality of Alcohol and Drug Abuse Patient Records regulations: The Federal rules restrict any use of the information to criminally investigate or prosecute any alcohol or drug abuse patient.[facility] HospitalIn the event this information is protected by the Federal Confidentiality of Alcohol and Drug Abuse Patient Records regulations: The Federal rules restrict any use of the information to criminally investigate or prosecute any alcohol or drug abuse patient.[facility] HospitalIn the event this information is protected by the Federal Confidentiality of Alcohol and Drug Abuse Patient Records regulations: The Federal rules restrict any use of the information to criminally investigate or prosecute any alcohol or drug abuse patient.[facility] HospitalIn the event this information is protected by the Federal Confidentiality of Alcohol and Drug Abuse Patient Records regulations: The Federal rules restrict any use of the information to criminally investigate or prosecute any alcohol or drug abuse patient.[facility] HospitalIn the event this information is protected by the Federal Confidentiality of Alcohol and Drug Abuse Patient Records regulations: The Federal rules restrict any use of the information to criminally investigate or prosecute any alcohol or drug abuse patient.[facility] HospitalIn the event this information is protected by the Federal Confidentiality of Alcohol and Drug Abuse Patient Records regulations: The Federal rules restrict any use of the information to criminally investigate or prosecute any alcohol or drug abuse patient.[facility] HospitalIn the event this information is protected by the Federal Confidentiality of Alcohol and Drug Abuse Patient Records regulations: The Federal rules restrict any use of the information to criminally investigate or prosecute any alcohol or drug abuse patient.[facility] HospitalIn the event this information is protected by the Federal Confidentiality of Alcohol and Drug Abuse Patient Records regulations: The Federal rules restrict any use of the information to criminally investigate or prosecute any alcohol or drug abuse patient.[facility] HospitalIn the event this information is protected by the Federal Confidentiality of Alcohol and Drug Abuse Patient Records regulations: The Federal rules restrict any use of the information to criminally investigate or prosecute any alcohol or drug abuse patient.[facility] Reason for Visit (unrecogniz ed section [...] NEW RS PT BPPV Monik Hackett MD [address] [place] [address] Kaitlyn Méndez, CANDACE [address] [place] [address] Referral ID Status Reason Start Date Expiration Date Visits Re quested Visits Authorized [id number] Closed 02/22/2023 10/27/2023 1 1 Reason Comments Insurance Authorization Reason Onset Date Comments Refill Request 06/11/2023 Reason Comments ED Follow-up [facility] 06/29/23 Reason Comments Refill Request New [...] of breath Procedures LUNG VOLUMES Yasmine Martinez, [employer] [facility] DIRECTOR.DIANETIC COUNSELOR [address] [place] [address] Respiratory [place] [address] [place] [id number] Referral ID Status Reason Start Date Expiration Date V isits Requested Visits Authorized [id number] Closed Auto-Generate d Referral 11/06/2023 10/27/2024 1 1 Specialty Diagnoses / Procedures Referred By Contac t Referred To Contact [facility] Diagnoses Shortness of breath Procedures SPIROMETRY - BASELINE AND POST DILATOR BRNCDILAT RSPSE SPMTRY PRE&POST-BRNCDILAT ADMN Yasmine Martinez, [employer] DIRECTOR.DIANETIC COUNSELOR [address] [place] [address] Respiratory Fleming [address] [place] [address] Referral ID Status Reason Start Date Expiration Date V isits Requested Visits Authorized [id number] Closed Auto-Generate d Referral 11/06/2023 10/27/2024 1 1 Specialty Diagnoses / Procedures Referred By Contac t Referred To Contact [facility] Diagnoses Hypoxia Shortness of breath Procedures OXIMETRY WITH AMBULATION NONINVASIVE EAR/PULSE OXIMETRY MULTIPLE DETER Yasmine Martinez, [employer]ENTER DIRECTOR.DIANETIC COUNSELOR [address] [place] [address] [address] Referral ID Status Reason Start Date Expiration Date V isits Requested Visits Authorized [id number] Closed Auto-Generate d Referral 12/03/2023 01/01/2025 1 1 Specialty Diagnoses / Procedures Referred By Contac t Referred To Contact [facility] Diagnoses Shortness of breath Procedures LUNG DIFFUSION CAPACITY (DLCO) DIFFUSING CAPACITY Yasmine Martinez, [employer] [employer] C[facility] DIRECTOR.DIANETIC COUNSELOR [address] [place] [address] [address] Referral ID Status Reason Start Date Expiration Date V isits Requested Visits Authorized [id number] Closed Auto-Generate d Referral 11/06/2023 10/27/2024 1 [...] when left house. Reason Comments Insurance Authorization [employer] Reason Onset Date Comments Refill Request 04/08/2024 Reason Onset Date Comments Refill Request 08/13/2023 Reason Onset Date Comments Refill Request 04/27/2024 Specialty Diagnoses / Procedures Referred By Contac t Referred To Contact [facility] Diagnoses SOB (shortness of breath) Procedures NITRIC OXIDE, EXHALED NITRIC OXIDE GAS DETERMINATION Camila Johns MD [address] [place] [address] Respiratory Fleming [address] [place] [address] Referral ID Status Reason Start Date Expiration Date V isits Requested Visits Authorized [id number] Closed Auto-Generate d Referral 01/24/2024 02/22/2025 1 1 Reason Comments Established Patient 3 month follow up as thid Reason Comments Recheck 6 month follow up [...] Care Teams (unrecognized sec tion and content) Warehouse Packaging Supervisor Relationship Specialty Start Date End Date Monik Hackett MD [address] [facility] [place] [address] PCP - General Internal Medicine 07/19/20 Jess Perry, [facility] [address] [place] [address] Pharmacist Pharmacy 12/26/20 Warehouse Packaging Supervisor Relationship Specialty Start Date End Date Monik Hackett MD [address] [facility] [place] [address] PCP - General Internal Medicine 07/19/20 Jess Perry, [facility] [address] [facility] [place] [address] Pharmacist Pharmacy 12/26/20 Warehouse Packaging Supervisor Relationship Specialty Start Date End Date Monik Hackett MD [address] [facility] [place] [address] PCP - General Internal Medicine 07/19/20 [facility] [address] [place] [address] Pharmacist Pharmacy 12/26/20 Warehouse Packaging Supervisor Relationship Specialty Start Date End Date Monik Hackett MD [address] [facility] [place] [address] PCP - General Internal Medicine 07/19/20 [facility] [address] [facility] [place] [address] Pharmacist Pharmacy 12/26/20 Warehouse Packaging Supervisor Relationship Specialty Start Date End Date Monik Hackett MD [address] [place] [address] PCP - General Internal Medicine 07/19/20 Jess Perry, [facility] [address] [place] [address] Pharmacist Pharmacy 12/26/20 Warehouse Packaging Supervisor Relationship Specialty Start Date End Date Monik Hackett MD [address] [place] [address] PCP - General Internal Medicine 07/19/20 Jess Perry, [facility] [address] [place] [address] Pharmacist Pharmacy 12/26/20 Warehouse Packaging Supervisor Relationship Specialty Start Date End Date Monik Hackett MD [address] [place] [address] PCP - General Internal Medicine 07/19/20 Jess Perry, [facility] [address] [place] [address] Pharmacist Pharmacy 12/26/20 Warehouse Packaging Supervisor Relationship Specialty Start Date End Date Monik Hackett MD [address] [place] [address] PCP - General Internal Medicine 07/19/20 Jess Perry, [facility] [address] [place] [address] Pharmacist Pharmacy 12/26/20 Warehouse Packaging Supervisor Relationship Specialty Start Date End Date Monik Hackett MD [address] [place] [address] PCP - General Internal Medicine 07/19/20 Jess Perry, [facility] [address] [place] [address] Pharmacist Pharmacy 12/26/20 Warehouse Packaging Supervisor Relationship Specialty Start Date End Date Monik Hackett MD [address] [place] [address] PCP - General Internal Medicine 07/19/20 [facility] [address] [place] [address] Pharmacist Pharmacy 12/26/20 Warehouse Packaging Supervisor Relationship Specialty Start Date End Date Monik Hackett MD [address] [facility] [place] [address] PCP - General Internal Medicine 07/19/20 [facility] [address] [place] [address] Pharmacist Pharmacy 12/26/20 Warehouse Packaging Supervisor Relationship Specialty Start Date End Date Monik Hackett MD [address] [place] [address] PCP - General Internal Medicine 07/19/20 [facility] [address] [place] [address] Pharmacist Pharmacy 12/26/20 Warehouse Packaging Supervisor Relationship Specialty Start Date End Date Monik Hackett MD [address] [place] [address] PCP - General Internal Medicine 07/19/20 [facility] [address] [place] [address] Pharmacist Pharmacy 12/26/20 Warehouse Packaging Supervisor Relationship Specialty Start Date End Date Monik Hackett MD [address] [facility] [place] [address] PCP - General Internal Medicine 07/19/20 [facility] [address] [place] [address] Pharmacist Pharmacy 12/26/20 Warehouse Packaging Supervisor Relationship Specialty Start Date End Date Monik Hackett MD [address] [place] [address] PCP - General Internal Medicine 07/19/20 [facility] [address] [place] [address] Pharmacist Pharmacy 12/26/20 Warehouse Packaging Supervisor Relationship Specialty Start Date End Date Monik Hackett MD [address] [facility] [place] [address] PCP - General Internal Medicine 07/19/20 [facility] [address] [facility] [place] [address] Pharmacist Pharmacy 12/26/20 Warehouse Packaging Supervisor Relationship Specialty Start Date End Date Monik Hackett MD [address] [facility] [place] [address] PCP - General Internal Medicine 07/19/20 [facility] [address] [place] [address] Pharmacist Pharmacy 12/26/20 Warehouse Packaging Supervisor Relationship Specialty Start Date End Date Monik Hackett MD [address] [place] [address] PCP - General Internal Medicine 07/19/20 Fior Joseph, [facility] [address] [place] [address] Pharmacist Pharmacy 04/11/23 Warehouse Packaging Supervisor Relationship Specialty Start Date End Date Monik Hackett MD [address] [place] [address] PCP - General Internal Medicine 07/19/20 [place] [place] [place] [place] [address] Pharmacist Pharmacy 04/11/23 Warehouse Packaging Supervisor Relationship Specialty Start Date End Date Monik Hackett MD [address] [place] [address] PCP - General Internal Medicine 07/19/20 [place] [address] [place] [address] Pharmacist Pharmacy 04/11/23 Warehouse Packaging Supervisor Relationship Specialty Start Date End Date Monik Hackett MD [address] [place] [address] PCP - General Internal Medicine 07/19/20 [place] [address] [place] [address] Pharmacist Pharmacy 04/11/23 Warehouse Packaging Supervisor Relationship Specialty Start Date End Date Monik Hackett MD [address] [place] [address] PCP - General Internal Medicine 07/19/20 [place] [address] [place] [address] Pharmacist Pharmacy 04/11/23 Warehouse Packaging Supervisor Relationship Specialty Start Date End Date Monik Hackett MD [address] [place] [address] PCP - General Internal Medicine 07/19/20 [place] [address] [place] [address] Pharmacist Pharmacy 04/11/23 Warehouse Packaging Supervisor Relationship Specialty Start Date End Date Monik Hackett MD [address] [place] [address] PCP - General Internal Medicine 07/19/20 OpalNancie jeffilyRobert [place] [address] [place] [address] Pharmacist Pharmacy 04/11/23 Warehouse Packaging Supervisor Relationship Specialty Start Date End Date Monik Hackett MD [address] [place] [address] PCP - General Internal Medicine 07/19/20 [place] [address] [place] [address] Pharmacist Pharmacy 04/11/23 Warehouse Packaging Supervisor Relationship Specialty Start Date End Date Monik Hackett MD [address] [place] [address] PCP - General Internal Medicine 07/19/20 [place] [address] [place] [address] Pharmacist Pharmacy 04/11/23 Warehouse Packaging Supervisor Relationship Specialty Start Date End Date Monik Hackett MD [address] [place] [address] PCP - General Internal Medicine 07/19/20 [place]Nancie jeffilyRobert [place] [address] [place] [address] Pharmacist Pharmacy 04/11/23 Warehouse Packaging Supervisor Relationship Specialty Start Date End Date Monik Hackett MD [address] [place] [address] PCP - General Internal Medicine 07/19/20 Opal, [place] [address] [place] [address] Pharmacist Pharmacy 04/11/23 Warehouse Packaging Supervisor Relationship Specialty Start Date End Date Monik Hackett MD [address] [place] [address] PCP - General Internal Medicine 07/19/20 [place]alNancie jeffilyRobert [place] [address] [place] [address] Pharmacist Pharmacy 04/11/23 Warehouse Packaging Supervisor Relationship Specialty Start Date End Date Monik Hackett MD [address] [place] [address] PCP - General Internal Medicine 07/19/20 [place]Nancie [place]ilyRobert [place] [address] [place] [address] Pharmacist Pharmacy 04/11/23 Warehouse Packaging Supervisor Relationship Specialty Start Date End Date Monik Hackett MD [address] [place] [address] PCP - General Internal Medicine 07/19/20 [place]Nancie jeffilyRobert [place] [address] [place] [address] Pharmacist Pharmacy 04/11/23 Warehouse Packaging Supervisor Relationship Specialty Start Date End Date Monik Hackett MD [address] [place] [address] PCP - General Internal Medicine 07/19/20 [place]alNancie jeffilyRobert [place] [address] [place] [address] Pharmacist Pharmacy 04/11/23 Warehouse Packaging Supervisor Relationship Specialty Start Date End Date Monik Hackett MD [address] [place] [address] PCP - General Internal Medicine 07/19/20 [place]ie jeff[place] [address] [place] [address] Pharmacist Pharmacy 04/11/23 Warehouse Packaging Supervisor Relationship Specialty Start Date End Date Monik Hackett MD [address] [place] [address] PCP - General Internal Medicine 07/19/20 [facility] [address] [place] [address] Pharmacist Pharmacy 12/26/20 04/10/23 Warehouse Packaging Supervisor Relationship Specialty Start Date End Date Monik Hackett MD [address] [place] [address] PCP - General Internal Medicine 07/19/20 [place] je[place] [address] [place] [address] Pharmacist Pharmacy 04/11/23 Warehouse Packaging Supervisor Relationship Specialty Start Date End Date Monik Hackett MD [address] [place] [address] PCP - General Internal Medicine 07/19/20 F[place] [address] [place] [address] Pharmacist Pharmacy 04/11/23 Warehouse Packaging Supervisor Relationship Specialty Start Date End Date Monik Hackett MD [address] [place] [address] PCP - General Internal Medicine 07/19/20 F[place] [address] [place] [address] Pharmacist Pharmacy 04/11/23 Warehouse Packaging Supervisor Relationship Specialty Start Date End Date Monik Hackett MD [address] [place] [address] PCP - General Internal Medicine 07/19/20 [place] [address] [place] [address] Pharmacist Pharmacy 04/11/23 Warehouse Packaging Supervisor Relationship Specialty Start Date End Date Monik Hackett MD [address] [place] [address] PCP - General Internal Medicine 07/19/20 F[place] [address] [place] [address] Pharmacist Pharmacy 04/11/23 Warehouse Packaging Supervisor Relationship Specialty Start Date End Date Monik Hackett MD [address] [place] [address] PCP - General Internal Medicine 07/19/20 F[place] [address] [place] [address] Pharmacist Pharmacy 04/11/23 Warehouse Packaging Supervisor Relationship Specialty Start Date End Date Monik Hackett MD [address] [place] [address] PCP - General Internal Medicine 07/19/20 F[place] [address] [place] [address] Pharmacist Pharmacy 04/11/23 Warehouse Packaging Supervisor Relationship Specialty Start Date End Date Monik Hackett MD [address] [place] [address] PCP - General Internal Medicine 07/19/20 F[place] [address] [place] [address] Pharmacist Pharmacy 04/11/23 Warehouse Packaging Supervisor Relationship Specialty Start Date End Date Monik Hackett MD [address] [place] [address] PCP - General Internal Medicine 07/19/20 Opal [place] [address] [place] [address] Pharmacist Pharmacy 04/11/23 Warehouse Packaging Supervisor Relationship Specialty Start Date End Date Monik Hackett MD [address] [place] [address] PCP - General Internal Medicine 07/19/20 F[place] [address] [place] [address] Pharmacist Pharmacy 04/11/23 Warehouse Packaging Supervisor Relationship Specialty Start Date End Date Monik Hackett MD [address] [place] [address] PCP - General Internal Medicine 07/19/20 F[place] [address] [place] [address] Pharmacist Pharmacy 04/11/23 Warehouse Packaging Supervisor Relationship Specialty Start Date End Date Monik Hackett MD [address] [place] [address] PCP - General Internal Medicine 07/19/20 [place]ie jeffilyRobert [place] [address] [place] [address] Pharmacist Pharmacy 04/11/23 Warehouse Packaging Supervisor Relationship Specialty Start Date End Date Monik Hackett MD [address] [place] [address] PCP - General Internal Medicine 07/19/20 F[place] [address] [place] [address] Pharmacist Pharmacy 04/11/23 Warehouse Packaging Supervisor Relationship Specialty Start Date End Date Monik Hackett MD [address] [place] [address] PCP - General Internal Medicine 07/19/20 F[place] [address] [place] [address] Pharmacist Pharmacy 04/11/23 Warehouse Packaging Supervisor Relationship Specialty Start Date End Date Monik Hackett MD [address] [place] [address] PCP - General Internal Medicine 07/19/20 [place] je[place]Robert [place] [address] [place] [address] Pharmacist Pharmacy 04/11/23 Warehouse Packaging Supervisor Relationship Specialty Start Date End Date Monik Hackett MD [address] [place] [address] PCP - General Internal Medicine 07/19/20 OpalNancie jeffilyRobert [place] [address] [place] [address] Pharmacist Pharmacy 04/11/23 Warehouse Packaging Supervisor Relationship Specialty Start Date End Date Monik Hackett MD [address] [place] [address] PCP - General Internal Medicine 07/19/20 OpalNancie jeffilyRobert [place] [address] [place] [address] Pharmacist Pharmacy 04/11/23 Warehouse Packaging Supervisor Relationship Specialty Start Date End Date Monik Hackett MD [address] [place] [address] PCP - General Internal Medicine 07/19/20 [place] je[place] [address] [place] [address] Pharmacist Pharmacy 04/11/23 Warehouse Packaging Supervisor Relationship Specialty Start Date End Date Monik Hackett MD [address] [place] [address] PCP - General Internal Medicine 07/19/20 Nancie JosephilyRobert [place] [address] [place] [address] Pharmacist Pharmacy 04/11/23 Warehouse Packaging Supervisor Relationship Specialty Start Date End Date Monik Hackett MD [address] [place] [address] PCP - General Internal Medicine 07/19/20 [place] je[place] [address] [place] [address] Pharmacist Pharmacy 04/11/23 Warehouse Packaging Supervisor Relationship Specialty Start Date End Date Monik Hackett MD [address] [place] [address] PCP - General Internal Medicine 07/19/20 [facility] [address] [place] [address] Pharmacist Pharmacy 12/26/20 04/10/23 Warehouse Packaging Supervisor Relationship Specialty Start Date End Date Monik Hackett MD [address] [place] [address] PCP - General Internal Medicine 07/19/20 [facility] [address] [place] [address] Pharmacist Pharmacy 12/26/20 04/10/23 Warehouse Packaging Supervisor Relationship Specialty Start Date End Date Monik Hackett MD [address] [place] [address] PCP - General Internal Medicine 07/19/20 ScotlandFior jeff, [facility] [address] [place] [address] Pharmacist Pharmacy 04/11/23 Kelsi Alfred PA-C [address] [place] [address] Child Care Development Specialist Family Medicine 10/04/24 Lala Harrison APRN.CNP [address] [place] [address] Child Care Development Specialist Internal Medicine 10/04/24 Liliana Espinoza PA-C [address] [place] [address] Child Care Development Specialist Family Medicine 10/04/24 Warehouse Packaging Supervisor Relationship Specialty Start Date End Date Monik Hackett MD [address] [place] [address] PCP - General Internal Medicine 07/19/20 [place] [address] [place] [address] Pharmacist Pharmacy 04/11/23 Kelsi Alfred PA-C [address] [place] [address] Child Care Development Specialist Family Medicine 10/04/24 Lala Harrison APRN.CNP [address] [place] [address] Child Care Development Specialist Internal Medicine 10/04/24 Liliana Espinoza PA-C [address] [place] [address] Child Care Development Specialist Family Medicine 10/04/24 Warehouse Packaging Supervisor Relationship Specialty Start Date End Date Monik Hackett MD [address] [place] [address] PCP - General Internal Medicine 07/19/20 [place] [address] [place] [address] Pharmacist Pharmacy 04/11/23 Kelsi Alfred PA-C [address] [place] [address] Child Care Development Specialist Family Medicine 10/04/24 Lala Harrison APRN.DIANETIC COUNSELOR [address] [place] [address] Child Care Development Specialist Internal Medicine 10/04/24 Liliana Espinoza PA-C [address] [place] [address] Child Care Development Specialist Family Medicine 10/04/24 Warehouse Packaging Supervisor Relationship Specialty Start Date End Date Monik Hackett MD [address] [place] [address] PCP - General Internal Medicine 07/19/[address] [address] Pharmacist Pharmacy 04/11/23 Kelsi Alfred PA-C [address] [place] [address] Child Care Development Specialist Family Medicine 10/04/24 Lala Harrison APRN.DIANETIC COUNSELOR [address] [place] [address] Child Care Development Specialist Internal Medicine 10/04/24 Liliana Espinoza PA-C [address] [place] [address] Child Care Development Specialist Family Medicine 10/04/24 Warehouse Packaging Supervisor Relationship Specialty Start Date End Date Monik Hackett MD [address] [place] [address] PCP - General Internal Medicine 07/19/20 [place] [address] [place] [address] Pharmacist Pharmacy 04/11/23 Kelsi Alfred PA-C [address] [place] [address] Child Care Development Specialist Family Medicine 10/04/24 Lala Harrison APRN.DIANETIC COUNSELOR [address] [place] [address] Child Care Development Specialist Internal Medicine 10/04/24 Liliana Espinoza PA-C [address] [place] [address] Child Care Development Specialist Family Medicine 10/04/24 Warehouse Packaging Supervisor Relationship Specialty Start Date End Date Monik Hackett MD [address] [place] [address] PCP - General Internal Medicine 07/19/20 Fior Joseph, [facility] [address] [place] [address] Pharmacist Pharmacy 04/11/23 Kelsi Alfred PA-C [address] [place] [address] Child Care Development Specialist Family Medicine 10/04/24 Lala Harrison APRN.DIANETIC COUNSELOR [address] [place] [address] Child Care Development Specialist Internal Medicine 10/04/24 Liliana Espinoza PA-C [address] [place] [address] Child Care Development Specialist Family Medicine 10/04/24 Warehouse Packaging Supervisor Relationship Specialty Start Date End Date Monik Hackett MD [address] [place] [address] PCP - General Internal Medicine 07/19/20 [place] [address] [place] [address] Pharmacist Pharmacy 04/11/23 Lala Harrison APRN.DIANETIC COUNSELOR [address] [place] [address] Child Care Development Specialist Internal Medicine 10/04/24 Warehouse Packaging Supervisor Relationship Specialty Start Date End Date Monik Hackett MD [address] [place] [address] PCP - General Internal Medicine 07/19/20 [place] [address] [place] [address] Pharmacist Pharmacy 04/11/23 Lala Harrison APRN.DIANETIC COUNSELOR [address] [place] [address] Child Care Development Specialist Internal Medicine 10/04/24 Warehouse Packaging Supervisor Relationship Specialty Start Date End Date Monik Hackett MD [address] [place] [address] PCP - General Internal Medicine 07/19/20 [place] [address] [place] [address] Pharmacist Pharmacy 04/11/23 Lala Harrison APRN.DIANETIC COUNSELOR [address] [place] [address] Child Care Development Specialist Internal Medicine 10/04/24 Warehouse Packaging Supervisor Relationship Specialty Start Date End Date Monik Hackett MD [address] [place] [address] PCP - General Internal Medicine 07/19/20 Opal, [place] [address] [place] [address] Pharmacist Pharmacy 04/11/23 Lala Harrison APRN.DIANETIC COUNSELOR [address] [facility] [address] Child Care Development Specialist Internal Medicine 10/04/24 Warehouse Packaging Supervisor Relationship Specialty Start Date End Date Monik Hackett MD [address] [place] [address] PCP - General Internal Medicine 07/19/20 [place] [address] [place] [address] Pharmacist Pharmacy 04/11/23 Lala Harrison APRN.DIANETIC COUNSELOR [address] [place] [address] Child Care Development Specialist Internal Medicine 10/04/24 Warehouse Packaging Supervisor Relationship Specialty Start Date End Date Monik Hackett MD [address] [place] [address] PCP - General Internal Medicine 07/19/20 OpalNancie jeffilyRobert [place] [address] [place] [address] Pharmacist Pharmacy 04/11/23 Lala Harrison APRN.DIANETIC COUNSELOR [address] [place] [address] Child Care Development Specialist Internal Medicine 10/04/24 Warehouse Packaging Supervisor Relationship Specialty Start Date End Date Monik Hackett MD [address] [place] [address] PCP - General Internal Medicine 07/19/20 [place]alNancie jeffilyRobert [place] [address] [place] [address] Pharmacist Pharmacy 04/11/23 Lala Harrison APRN.DIANETIC COUNSELOR [address] [place] [address] Child Care Development Specialist Internal Medicine 10/04/24 Warehouse Packaging Supervisor Relationship Specialty Start Date End Date Monik Hackett MD [address] [place] [address] PCP - General Internal Medicine 07/19/20 F[place] [address] [place] [address] Pharmacist Pharmacy 04/11/23 Lala Harrison APRN.DIANETIC COUNSELOR [address] [place] [address] Child Care Development Specialist Internal Medicine 10/04/24 Warehouse Packaging Supervisor Relationship Specialty Start Date End Date Monik Hackett MD [address] [place] [address] PCP - General Internal Medicine 07/19/20 [place] [address] [place] [address] Pharmacist Pharmacy 04/11/23 Lala Harrison APRN.DIANETIC COUNSELOR [address] [place] [address] Child Care Development Specialist Internal Medicine 10/04/24 Warehouse Pack[employer] Supervisor Relationship Specialty Start Date End Date Monik Hackett MD [address] [place], [place] [id number] PCP - General Internal Medicine 07/19/20 [place] [address] [facility] [place] [id number] Pharmacist Pharmacy 04/11/23 Lala Harrison APRN.DIANETIC COUNSELOR [address] [place], [place] [id number] [facility] 10/04/24 Warehouse Packaging Supervisor Relationship Specialty Start Date End Date Monik Hackett MD [address] [facility] [place], [place] [id number] PCP - General Internal Medicine 07/19/20 [place] [address] [place] [facility] [place] [phone] Pharmacist Pharmacy 04/11/23 Lala Harrison APRN.DIANETIC COUNSELOR [address] [place] [address] [facility] Internal Medicine 10/04/24 FOR RECORDS PERTAINING TO [...] BE BASED ON THE PRIMARY CLINICAL RECORDS. [employer] [facility]. provides no warranty or guarantee of the accuracy or completeness of information in this document.
[2025-08-02 02:48] LABS: AST(SGOT) 21 U/L (<=31); Alanine Aminotransfer ALT/SGPT 17 U/L (<=34); Albumin, Serum 4.4 g/dL (3.4-4.8); Alkaline Phosphatase 87 U/L (35-104); Anion Gap 15 (5-15); BUN 16 mg/dL (4-19); BUN/Creat Ratio 17.8 RATIO (10-20); Calcium,Total 9.0 mg/dL (7.6-11.0); Carbon Dioxide 26.1 mmol/L (21.0-32.0); Chloride 97 mmol/L (98-108); Globulin 2.4 g/dL (2.2-4.2); Glucose 241 mg/dL (70-99); Potassium 3.5 mmol/L (3.3-5.1)
[2025-08-02 03:11] VITALS: BP 117/63; PULSE 79; RESP 14; O2SAT 100
[2025-08-02 03:27] VITALS: BP 108/87; BP 110/60; BP 124/76; PULSE 81; PULSE 82; PULSE 88
[2025-08-02 03:28] VITALS: O2SAT 97
[2025-08-02 03:48] VITALS: BP 122/70; PULSE 75; RESP 18; TEMP 36.8; O2SAT 97
== END 2025-08-02 03:49 | disposition home or self-care (01) ==
PROVIDERS: Emergency Provider Emergency Medicine; PCP Internal Medicine; Visit Provider Emergency Medicine
DX: R53.81 Other malaise (principal); F31.9 Bipolar disorder, unspecified; E11.65 Type 2 diabetes mellitus with hyperglycemia; Z79.4 Long term (current) use of insulin; T43.595A Adverse effect of other antipsychotics and neuroleptics, initial encounter; F41.0 Panic disorder [episodic paroxysmal anxiety]; I10 Essential (primary) hypertension; Z79.899 Other long term (current) drug therapy
CPT/HCPCS: 80053; 85025; 93005; 96360; 96361; 99285

== ENCOUNTER 2025-09-21 12:44 | Emergency (ER) | payer MEDICAID, SELFPAY ==
[2025-09-21 12:45] VITALS: BP 149/80; PULSE 84; RESP 16; TEMP 36.6; O2SAT 97
--- NOTE | 2025-09-21 14:13 | EX.ED.DYSGE1 ---
HPI History of Present Illness Chief Complaint: Lower Extremity Injury Detail of Chief Complaint: Bilateral lower extremity discomfort. Informant: patient Onset/Context/Timing Onset: Weeks Context: Gradual Onset Timing: Intermittent Current Severity: Mild Maximum Severity: Mild Narrative Narrative: 65-year-old female history of diabetes, hypertension, bipolar sciatica and fibromyalgia. States that she has bilateral leg pain says her legs "are vibrating". She feels generally weak. This is her fourth ER visit in the last 50 days. She denies she denies any injury. Nausea, vomiting, diarrhea or fever. Says she feels overall weak. She has had no specific diagnosis from these ER visits that she is aware of. Prior similar symptoms: Yes Recent Illness/Hospitalization: No [facility] Medical History Fibromyalgia Osteoarthritis DDD (degenerative disc disease) FHx: total knee replacement Overactive bladder Diabetes High cholesterol Hypertension Bipolar 1 disorder Depression Anxiety Panic disorder Home Medications Medication Instructions Recorded Last Taken Type oxybutynin chloride 10 mg 10 mg PO QHS 11/27/13 09/29/23 History tablet,extended release 24 hr (Ditropan XL) quetiapine 200 mg tablet (Seroquel) 150 mg PO QHS 11/27/13 09/29/23 History metoprolol tartrate 50 mg tablet 50 mg PO BID 12/04/13 09/30/23 History cholecalciferol (vitamin D3) 25 2,000 unit PO DAILY 10/22/14 09/30/23 History mcg (1,000 unit) tablet (Vitamin D3) duloxetine 60 mg capsule,delayed 60 mg PO DAILY 10/22/14 09/30/23 History release omeprazole 20 mg capsule,delayed 20 mg PO DAILY 10/22/14 09/30/23 History release pregabalin 50 mg capsule 175 mg PO BID 10/22/14 09/30/23 History furosemide 20 mg tablet 20 mg PO DAILY 07/27/20 09/30/23 History insulin glargine 100 unit/mL (3 30 - 40 unit SQ QHS 07/27/20 09/30/23 History mL) subcutaneous pen sertraline 100 mg tablet 400 mg PO DAILY 07/27/20 09/30/23 History quetiapine 100 mg tablet (Seroquel) 100 mg PO QHS #15 tabs 08/02/25 Unknown Rx rosuvastatin 10 mg tablet 10 mg PO QHS 08/02/25 Unknown History Allergy/AdvReac Type Severity Reaction Status Date / Time acetaminophen (From Tylenol) Allergy Swelling Verified 09/21/25 12:47 amoxicillin (Amoxicillin) Allergy Rash Verified 09/21/25 12:47 haloperidol (From Haldol) Allergy Other Verified 09/21/25 12:47 haloperidol lactate (From Allergy Other Verified 09/21/25 12:47 Haldol) lithium ([place]) Allergy Other Verified 09/21/25 12:47 naproxen sodium (From Aleve) Allergy Swelling Verified 09/21/25 12:47 Surgical History History of tonsillectomy History of rectal surgery H/O: hysterectomy Social History Smoking Status: Never smoker ROS ROS ED ROS Narrative Denies recent illness. Constitutional Constitutional ED: Denies fever(s) Eyes Eyes: Denies blurry vision ENT ENT ED: Denies ear pain Cardiovascular Cardiovascular: Denies chest pain or palpitations Respiratory/Chest Respiratory/Chest: Denies cough or dyspnea Gastrointestinal Gastrointestinal: Denies abdominal pain Genitourinary Genitourinary ED: Denies dysuria or hematuria Musculoskeletal Musculoskeletal: Denies arthralgias Integumentary Denies abscess Neurologic Neurologic: Denies headache(s) Psychiatric Psychiatric: Denies anxiety or depression Endocrine Endocrinology: Denies cold intolerance Hematologic/Lymphatic Hematologic/Lymphatic: Reports none Allergic/Immunologic Allergic/Immunologic ED: Denies mouth swelling, tongue swelling or urticaria EXAM Physical Exam Narrative Exam Narrative: 65-year-old female sitting upright in bed vital signs are stable afebrile. No acute distress. H EENT exam pupils round react light. Moist mutes posterior neck nontender no JVD. No lymphadenopathy. Back nontender. Lungs clear to auscultation bilaterally. Heart regular rhythm no murmur. Chest wall ribs nontender. Abdomen soft nontender. Moving all 4 extremities. Normal psychiatric therapist strength. Normal dorsi plantarflexion. Equal symmetrical DP pulses. Normal sensation. No cauda equina. No discoloration. No mottling. Normal range of motion. Normal strength. Normal appearance. Neurologically she is awake alert. Answering questions and following commands. Const Vital Signs: 11/25/25 12:45 09/21/25 15:10 Temperature 98 F Temperature Source Oral Pulse Rate 84 77 Respiratory Rate 16 18 Blood Pressure 149/80 H 142/62 H Blood Pressure Mean 103 88 Pulse Ox 97 99 Oxygen Delivery Method Room Air Room Air MDM MDM MDM Narrative Medical decision making narrative: 65-year-old female multiple complaints benign exam recent labs were unremarkable. I will check screening labs. She does not need any imaging. Repeat exam patient is doing well at 3:46 PM. Exam unchanged. Neurologically intact. Good strength and sensation. Good range of motion. Normal in appearance. Patient be discharged to home. Outpatient follow-up. History & Record Review Discussion w/independent historian: Patient Additional record(s) reviewed:: Prior outpatient record, Prior ED visit and Prior labs Lab Data Attestation: I reviewed the patient's lab results. Lab results narrative: CBC unremarkable. White count 6. H&H 14 and 43. Platelets 182. Chemistries show a potassium of 3.1. Anion gap 11. Normal BUN and creatinine. Glucose 118. Labs: Laboratory Results - last 24 hr 09/21/25 09/21/25 09/21/25 14:18 14:18 14:34 WBC Cancelled 6.7 Corrected WBC Cancelled RBC Cancelled 4.78 Hgb Cancelled 14.4 Hct Cancelled 43.8 MCV Cancelled 91.6 MCH Cancelled 30.1 MCHC Cancelled 32.9 RDW Std Deviation Cancelled 42.6 RDW Coeff of Sonal Cancelled 12.7 Plt Count Cancelled 182 MPV Cancelled 10.6 Immature Gran % (Auto) Cancelled 0.400 Neut % (Auto) Cancelled 70.4 H Lymph % (Auto) Cancelled 21.9 Pershing % (Auto) Cancelled 6.3 Eos % (Auto) Cancelled 0.6 Baso % (Auto) Cancelled 0.4 Absolute Neuts (auto) Cancelled 4.7 Absolute Lymphs (auto) Cancelled 1.47 Total Counted Cancelled Neutrophils % (Manual) Cancelled Band Neutrophils % Cancelled Lymphocytes % (Manual) Cancelled Monocytes % (Manual) Cancelled Eosinophils % (Manual) Cancelled Basophils % (Manual) Cancelled Metamyelocytes % Cancelled Myelocytes % Cancelled Promyelocytes % Cancelled Blast Cells % Cancelled Plasma Cell % (Manual) Cancelled Other Cells % Cancelled Nucleated RBC % Cancelled 0 Nucleated RBCs/100 WBC Cancelled Differential Comment Cancelled Diff Path Review Cancelled Hypersegmented Neuts Cancelled Atypical Lymphocytes Cancelled Reactive Lymphocytes Cancelled Smudge Cells Cancelled Toxic Granulation Cancelled Toxic Vacuolation Cancelled Dohle Bodies Cancelled Kaylee Rods Cancelled Platelet Estimate Cancelled Plt Morphology Comment Cancelled RBC Morphology Cancelled Cancelled Polychromasia Cancelled Hypochromasia Cancelled Basophilic Stippling Cancelled Anisocytosis Cancelled Microcytosis Cancelled Macrocytosis Cancelled Spherocytes Cancelled Sickle Cells Cancelled Target Cells Cancelled Tear Drop Cells Cancelled Ovalocytes Cancelled Stomatocytes Cancelled Way-[place]ndara Bodies Cancelled [place] Cells Cancelled Bite Cells Cancelled Crenated Cell Cancelled Acanthocytes (Spur) Cancelled Rouleaux Cancelled Schistocytes Cancelled Sodium Cancelled Potassium Cancelled Chloride Cancelled Carbon Dioxide Cancelled Anion Gap Cancelled BUN Cancelled Creatinine Cancelled Estim Creat Clear Calc Cancelled Est GFR (MDRD) Non-Af Cancelled BUN/Creatinine Ratio Cancelled Glucose Cancelled Calcium Cancelled 09/21/25 15:08 WBC Corrected WBC RBC Hgb Hct MCV MCH MCHC RDW Std Deviation RDW Coeff of Sonal Plt Count MPV Immature Gran % (Auto) Neut % (Auto) Lymph % (Auto) Pershing % (Auto) Eos % (Auto) Baso % (Auto) Absolute Neuts (auto) Absolute Lymphs (auto) Total Counted Neutrophils % (Manual) Band Neutrophils % Lymphocytes % (Manual) Monocytes % (Manual) Eosinophils % (Manual) Basophils % (Manual) Metamyelocytes % Myelocytes % Promyelocytes % Blast Cells % Plasma Cell % (Manual) Other Cells % Nucleated RBC % Nucleated RBCs/100 WBC Differential Comment Diff Path Review Hypersegmented Neuts Atypical Lymphocytes Reactive Lymphocytes Smudge Cells Toxic Granulation Toxic Vacuolation Dohle Bodies Kaylee Rods Platelet Estimate Plt Morphology Comment RBC Morphology Polychromasia Hypochromasia Basophilic Stippling Anisocytosis Microcytosis Macrocytosis Spherocytes Sickle Cells Target Cells Tear Drop Cells Ovalocytes Stomatocytes Way-Thendara Bodies [place] Cells Bite Cells Crenated Cell Acanthocytes (Spur) Rouleaux Schistocytes Sodium 142 Potassium 3.1 L Chloride 102 Carbon Dioxide 28.3 Anion Gap 11 BUN 14 Creatinine 0.78 Estim Creat Clear Calc Est GFR (MDRD) Non-Af 85 BUN/Creatinine Ratio 18.2 Glucose 118 H Calcium 9.0 Discharge Plan Triage Chief Complaint: Lower Extremity Injury ED Provider: [place] Brown Dx/Rx/DC Orders Clinical Impression: Lower extremity pain, History of fibromyalgia, History of diabetes mellitus, History of bipolar disorder, Acute hypokalemia Instructions: ED Hypokalemia, ED Musculoskeletal Pain Prescriptions: No Action oxybutynin chloride [Ditropan XL] 10 MG tablet extended release 24hr 10 mg PO QHS quetiapine [Seroquel] 200 MG tablet 150 mg PO QHS metoprolol tartrate 50 MG tablet 50 mg PO BID omeprazole 20 MG capsule 20 mg PO DAILY duloxetine 60 MG capsule 60 mg PO DAILY pregabalin 50 MG capsule 175 mg PO BID cholecalciferol (vitamin D3) [Vitamin D3] 1,000 UNIT tablet 2,000 unit PO DAILY sertraline 100 MG tablet 400 mg PO DAILY furosemide 20 MG tablet 20 mg PO DAILY insulin glargine 100 UNIT/ML insulin pen 30 - 40 unit SQ QHS rosuvastatin 10 mg tablet 10 mg PO QHS quetiapine [Seroquel] 100 mg tablet 100 mg PO QHS Qty: 15 0RF Primary Care Provider: Sheridan Strickland Referrals: Sheridan Strickland MD [Primary Care Provider, Internal Medicine] - 3-5 Days if not improving Activity Restrictions/Additional Instructions: Your labs look good. Your exam is unremarkable. Pain may be secondary to fibromyalgia. There is no specific cause otherwise at this time. Motrin for pain and inflammation and Tylenol for pain. Follow-up with your doctor if not improving. Return if worse. Your blood potassium level was just a little low at 3.1. You can take a multivitamin with potassium in it or make sure you are eating plenty of fruits and vegetables including potatoes and bananas that are rich in potassium. It should improve. Print Language: Wolof Disposition Disposition: Home, Self Care
[2025-09-21 14:39] LABS: Hematocrit 43.8 % (37-47); Hemoglobin 14.4 g/dL (12.0-15.0); Immature Granulocytes Count 0.030 X10^3/uL (0.0-0.0); Mean Corp Hgb Conc 32.9 g/dL (32-36); Mean Corpuscular Volume 91.6 fL (81-99); Mean Platelet Vol. 10.6 fl (6.2-12.0); NRBC Flagged by Analyzer 0 % (0-5); Platelet Count 182 K/mm3 (150-450); RBC Distribution Width CV 12.7 % (11.6-14.6); RBC Distribution Width SD 42.6 fl (35.1-43.9); Red Blood Count 4.78 M/mm3 (4.2-5.4); White Blood Count 6.7 K/mm3 (4.4-11.0)
[2025-09-21 15:10] VITALS: BP 142/62; PULSE 77; RESP 18; O2SAT 99
[2025-09-21 15:44] LABS: Anion Gap 11 (5-15); BUN 14 mg/dL (4-19); BUN/Creat Ratio 18.2 RATIO (10-20); Calcium,Total 9.0 mg/dL (7.6-11.0); Carbon Dioxide 28.3 mmol/L (21.0-32.0); Chloride 102 mmol/L (98-108); Glucose 118 mg/dL (70-99); Potassium 3.1 mmol/L (3.3-5.1)
[2025-09-21 15:59] VITALS: BP 136/63; PULSE 74; RESP 18; TEMP 36.8; O2SAT 97
--- OUTSIDE RECORDS SUMMARY | 2025-09-21 18:41 | XMS RPT_ITS | CCD ---
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 Name Role Phone Marco A MCDERMOTT, Monik Primary Care Provider [facility], Keti Unavailable Monik Hackett MD Primary Care Provider [phone] [facility], [place] Unavailable Marco A MCDERMOTT, Monik Primary Care Provider GANTA, MONIK Primary Care Unavailable CARYL VETERANS' COORDINATOR-WILLY RODRIGUEZ Primary Care Physician [facility], Keti Unavailable Monik Hackett MD Primary Care Provider Kelsi Alfred PA-C Unavailable Older VETERANS' COORDINATOR.MICHAEL, Lala Unavailable Liliana Espinoza PA-C Unavailable Con Vee Attending Unavailable Ganta, Monik Primary Care Unavailable Jose Khoury Attending Unavailable Ganta, Monik Primary Care Unavailable Veronica Farmer Attending Unavailable Ganta, Monik Primary Care Unavailable PHYSICIAN, NONE Primary Care Physician Unavailab le PHYSICIAN, NONE Primary Care Unavailable ASHLEY MARTIN MD Attending Unavailable GANTA, MONIK Primary Care Unavailable OLDERLALA Referring Unavailable GANTA, MONIK Attending Unavailable GANTA, MONIK Primary Care Unavailable JAIME SPENCER Referring Unavailable GANTA, MONIK Referring Unavailable GANTA, MONIK Primary Care Unavailable GANTA, MONIK Referring Unavailable GANTA, MONIK Primary Care Unavailable OLDERLALA Attending Unavailable GANTA, MONIK Primary Care Unavailable GANTA, MONIK Referring Unavailable GANTA, MONIK Primary Care Unavailable GANTA, MONIK Attending Unavailable GANTA, MONIK Primary Care Unavailable SELF Referring Unavailable GANTA, MONIK Referring Unavailable GANTA, MONIK Primary Care Unavailable GANTA, MONIK Primary Care Unavailable OLDER, LALA Attending Unavailable SELF Referring Unavailable GANTA, MONIK Primary Care Unavailable SPENCER, JAIME Attending Unavailable SELF Referring Unavailable GANTA, MONIK Primary Care Unavailable SPENCER, JAIME Referring Unavailable GANTA, MONIK Primary Care Unavailable OLDER, LALA Attending Unavailable Allergies Allergy Classification Reported Allergen(s) Allergy Type Date of Onset Reaction(s) Facility Acetaminophen (2 sources) Acetaminophen Drug Allergy [address] [facility] Anti-Epileptic Agents (2 sources) gabapentin Drug Allergy [address] [facility] glimepiride (2 sources) glimepiride Drug Allergy [address] [facility] Haloperidol (2 sources) Haloperidol Drug Allergy 0 Other: See Comments [facility] liraglutide (2 sources) liraglutide Drug Allergy 0 GI Upset [facility] [place] (2 sources) [place] Drug Allergy 0 Other: See Comments [facility] metFORMIN (2 sources) metFORMIN Drug Allergy [address] [facility] Penicillins (antibiotic) (2 sources) Penicillins Drug Allergy [address] [facility] Povidone-Iodine (2 sources) Povidone-Iodine Drug Allergy [address] [facility] Work Phone: (20 sources) Acetaminophen; Translations: [ACETAMINOPHEN] Drug Allergy [address] [facility] (20 sources) gabapentin; Translations: [GABAPENTIN] Drug Allergy [address] [facility] Work Phone: (20 sources) glimepiride; Translations: [GLIMEPIRIDE] Drug Allergy [address] [facility] Work Phone: (20 sources) Haloperidol; Translations: [HALOPERIDOL] Drug Allergy 0 Other: See Comments [facility] Work Phone: (20 sources) liraglutide; Translations: [LIRAGLUTIDE] Drug Allergy 0 GI Upset [facility] Work Phone: (20 sources) [place]; Translations: [LITHIUM] Drug Allergy 0 Other: See Comments [facility] Work Phone: (20 sources) metFORMIN; Translations: [METFORMIN] Drug Allergy [address] [facility] Work Phone: (7 sources) Penicillins; Translations: [PENICILLINS] Propensity to adverse reactions to drug [address] [facility] Work Phone: (20 sources) Povidone-Iodine; Translations: [POVIDONE-IODINE] Drug Allergy [address] [facility] Work Phone: (20 sources) Penicillins Propensity to adverse reactions to drug [address] [facility] Work Phone: (3 sources) traMADol; Translations: [tramadol] Drug Allergy [facility] (14 sources) Penicillins Propensity to adverse reactions to drug [address] [facility] (1 source) Acetaminophen Drug Allergy 5 [facility] (1 source) Amoxicillin Drug Allergy 5 [facility] (1 source) Haloperidol Drug Allergy 5 [facility] (1 source) Haloperidol Drug Allergy 5 [facility] (1 source) [place] Drug Allergy [facility] (1 source) Naproxen Drug Allergy 5 [facility] (1 source) risperiDONE; Translations: [RISPERIDONE] Drug Allergy 5 [facility] Medications Current Medications Medication Drug Class(es) Dates Sig (Normalized) Sig (Original) acetaminophen 325 mg / HYDROcodone bitartrate 5 mg oral tablet (1 source) Opioid Agonist Start: 07-15-2023 End: 07-18-2023 take 1 tablet by mouth every eight hours as needed for pain [place] 325- 5 mg oral tablet Dose = 1 tab(s), Oral, q8h, PRN as needed for pain, X 3 day(s), # 9 tab(s), 0 Refill(s), Fibromyalgia, 116 Start Date: 07/15/23 Stop Date: 07/18/23 Status: Ordered [id number] 200 actuat albuterol 0.09 mg/actuat metered dose [...] 0 Refill(s) Start Date: 07/09/23 Status: Ordered Medication Dispense Status: Completed Total Allowed Fills: 1 Fills Dispensed: 0 take 1 capsule by mouth once asia [...] 0 Refill(s) Start Date: 07/09/23 Status: Ordered Medication Dispense Status: Completed Total Allowed Fills: 1 Fills Dispensed: 0 Start: 07-09-2023 ergocalciferol 50,000 intl units (1.25 [...] Take 1 tablet by mouth twice weekly [id number], then decrease to 1 tablet weekly. 24 [...] Take 1 tablet by mouth twice weekly [id number], then decrease to 1 tablet weekly. 24 capsule 2 10/14/2020 09/24/2022 Discontinued Comment on above: Take 1 capsule by mo [facility] two times a week. TO BE TAKEN ORALLY DIRECTED. Take 1 tablet by mouth twice weekly [id number], then decrease to 1 tablet weekly. ferrous [...] 0 Refill(s) Start Date: 07/09/23 Status: Ordered Medication Dispense Status: Completed Total Allowed Fills: 1 Fills Dispensed: 0 Start: 06-21-2022 End: 02-08-2025 take 1 tablet [...] (VEOZAH) 45 mg tablet (4 sources) Start: 4 End: 4 take 1 tablet by mouth once daily [...] R efill(s) Start Date: 07/09/23 Status: Ordered Medication Dispense Status: Completed Total Allowed Fills: 1 Fills Dispensed: 0 Start: 07-09-2023 furosemide 0 R efill(s) Start Date: 07/09/23 Status: Ordered Start: 10-03-2021 End: 04-27-2024 furosemide (LASIX) 20 mg tab let Indications: Essential hypertension, benign Take 1 tablet by mouth once daily. Alternate 2 pills with 1 pill daily 45 tablet 5 10/03/2021 08/13/2023 Discontinued Comment on above: Take 1 tablet by [facility] once daily. Alternate 2 pills with 1 [...] daily. 15 mL 3 02/23/2025 Active Start: 07-09-2023 insulin glargi ne (LANTUS SOLOSTAR U-100 INSULIN) 100 unit/mL (3 mL) Inject 30 Units subcutaneously once daily. 15 mL 3 03/17/2024 Active Start: 05-27-2023 insulin glargi ne (LANTUS SOLOSTAR U-100 INSULIN) 100 unit/mL (3 mL) Inject 30 Units subcutaneously once daily. 15 mL 3 05/27/2023 Active Start: 04-11-2023 End: 05-27-2023 insulin glargine (LANTUS YUVAL OSTAR U-100 INSULIN) 100 unit/mL (3 mL) Inject 24 Units subcutaneously once daily. 15 mL 3 04/16/2023 05/27/2023 Discontinued Start: 07-28-2021 End: 04-11-2023 insulin glargine (BASAGLAR K HONEYKPEN U-100 INSULIN) 100 unit/mL (3 mL) Indications: [...] area three times a day. 100 each 04/01/2025 Active Start: 01-04-2023 End: 03-30-2025 alcohol swabs Apply 1 applic ation to affected area three times a day. 100 Each 08/12/2024 03/30/2025 Discontinued Start: 05-17-2022 End: 01-01-2023 [...] long-term current use of insulin (HCC) Take 1 tablet by mouth daily with [...] sources) beta-Adrenergic Sushant Start: 07-05-2023 End: 04-01-2026 Metoprolol Tartrate 50 mg oral tablet 0 Refill(s) Start Date: 07/09/23 Status: Ordered Medication Dispense Status: Completed Total Allowed Fills: 1 Fills Dispensed: 0 Start: 07-05-2022 End: 04-08-2023 take 1 tablet [...] by romeo th two times a day. Omeprazole (20 sources) Proton Pump Inhibitor Start: 07-09-2023 take 1 dose by mouth once daily omeprazole Oral, qDay, 0 Refill(s) Start Date: 07/09/23 Status: Ordered Medication Dispense Status: Completed Total Allowed Fills: 1 Fills Dispensed: 0 Start: 07-09-2023 omeprazole Ora l, qDay, 0 Refill(s) Start Date: 07/09/23 Status: Ordered Start: 04-26-2021 End: 08-09-2023 take 1 capsule by mouth once daily omeprazole (PRILOSEC) 20 mg capsule Indications: Esophageal reflux Take 1 capsule by mouth once daily. 30 capsule 08/09/2023 Active Comment on above: Take 1 capsule by mo uth once daily. 24 hr oxybutynin chloride 10 [...] 0 Refill(s) Start Date: 07/09/23 Status: Ordered Medication Dispense Status: Completed Total Allowed Fills: 1 Fills Dispensed: 0 Start: 08-22-2022 End: 12-07-2023 take 1 tablet [...] tablet by romeo th daily at bedtime. Potassium Chloride (20 sources) Start: 07-09-2023 Potassium Chloride (Fdb-Cymv-Zvg 10) 10 mEq oral tablet, extended release 0 Refill(s) Start Date: 07/09/23 Status: Ordered Medication Dispense Status: Completed Total Allowed Fills: 1 Fills Dispensed: 0 Start: 07-09-2023 Potassium Chlo ride (Ynt-Ktpj-Bes 10) 10 mEq oral tablet, extended release [...] 07/12/2023 08/09/2023 Discontinued Start: 11-29-2022 End: 11-08-2023 pregabalin 100 mg oral capsu le 0 Refill(s) Start Date: 07/09/23 Status: Ordered Medication Dispense Status: Completed Total Allowed Fills: 1 Fills Dispensed: 0 Start: 08-22-2022 End: 11-26-2022 take 1 capsule [...] total 175 mg twice daily. PULSE OXIMETER CONTE (20 sources) Start: 3 PULSE OXIMETER CONTE Use as needed to monitor oxygen level and heart rate 1 Each 1 10/02/2023 Active Comment on above: Use as needed to mon itor oxygen level and heart rate QUEtiapine 100 mg oral tablet (20 sources) Atypical Antipsychotic Start: 5 End: 5 take 1 tablet by mouth once daily at bedtime QUEtiapine (SEROQUEL) 50 mg tablet Take 1 tablet by mouth daily at bedtime. 30 tablet 2 11/10/2024 01/04/2025 Discontinued Start: 07-09-2023 End: 06-30-2025 QUEtiapine 100 mg oral table t 0 Refill(s) Start Date: 07/09/23 Status: Ordered Medication Dispense Status: Completed Total Allowed Fills: 1 Fills Dispensed: 0 Comment on above: Take 100 mg by mouth daily at bedtime. rosuvastatin calcium 10 mg oral tablet (20 sources) HMG-CoA Reductase Inhibitor Start: 2 End: take 1 tablet by mouth once daily at bedtime rosuvastatin (CRESTOR) 10 mg tablet Indications: Mixed hyperlipidemia Take 1 tablet by mouth daily at bedtime. 90 tablet 3 04/01/2025 Active Start: 01-03-2022 End: 09-24-2022 take 1 tablet [...] (20 sources) Serotonin Reuptake Inhibitor Start: 10-15-20 sertraline 100 mg oral tablet 0 Refill(s) Start Date: 07/09/23 Status: Ordered Medication Dispense Status: Completed Total Allowed Fills: 1 Fills Dispensed: 0 Comment on above: Take one (1) and [...] (20 sources) Corticosteroid Start: 10-03-20 End: 05-06-20 24 triamcinolone acetonide (KENALOG) 0.5 % cream Indications: [...] 0 Refill(s) Start Date: 07/09/23 Status: Ordered Medication Dispense Status: Completed Total Allowed Fills: 1 Fills Dispensed: 0 Start: 07-09-2023 take 1 dose by mouth three times daily Depakote Oral, TID, 0 Refill(s) Start Date: 07/09/23 Status: Ordered Medication Dispense Status: Completed Total Allowed Fills: 1 Fills Dispensed: 0 Start: 07-09-2023 Depakote Oral, TID, 0 Refill(s) Start Date: 07/09/23 Status: Ordered take 1 tablet by romeo twice daily divalproex DR (DEPAKOTE) 500 mg [...] Sig (Original) baclofen 20 mg oral tablet (3 sources) gamma-Aminobutyri c Acid-ergic Agonist Start: 06-29-2023 End: 07-04-2023 baclofen 20 mg oral tablet Dose : 20 mg = 1 tab(s), Oral, TID, # 15 tab(s), 0 Refill(s) Start Date: 06/29/23 Stop Date: 07/04/23 Status: Ordered Medication Dispense Status: Completed Quantity: 15.0 Unit: tab(s) Total Allowed Fills: 1 Fills Dispensed: 0 Blood Pressure Monitor (20 sources) Start: 10-02-2023 [...] Comment on above: Take 1 capsule by [facility] once daily. 0.5 ml dulaglutide 1.5 [...] hammer toe(s) (acquired), left foot] 10-09-2022 Chronic Adjustment disorders (1 source) Adjustment disorder with other symptoms; Translations: [Stress and adjustment reaction] Onset: 5 Chronic Allergic reactions (3 sources) Irritant contact [...] blood loss] Onset: 5 Chronic Diabetes mellitus with complications (1 source) Type 2 diabetes mellitus with hyperosmolarity without nonketotic hyperglycemic-hyperosm olar coma (NKHHC); Translations: [DM (diabetes mellitus), type 2, uncontrolled, with hyperosmolarity (HCC)] Onset: 5 Chronic Diabetes mellitus without complication (20 sources) Type 2 diabetes mellitus without complication; Translations: [Type 2 diabetes mellitus without complications] Onset: 3 Chronic Disorders of lipid metabolism (20 sources) Hyperlipidemia; Translations: [Hyperlipidemia, unspecified] Onset: 6 10-24-2006 Chronic E Codes: Fall (1 source) Unspecified fall, initial encounter; Translations: [Unspecified fall, initial encounter] Onset: 5 Episodic Esophageal disorders (20 sources) Gastroesophageal reflux disease; Translations: [Gastro-esophageal reflux disease without esophagitis] Onset: 6 10-15-2006 Chronic Essential hypertension (19 sources) Benign essential hypertension; Translations: [Essential (primary) hypertension] Onset: 5 Chronic Genitourinary symptoms and ill-defined [...] Translations: [Tinea unguium] Episodic Nonspecific chest pain (5 sources) Chest pain; Translations: [Chest pain, unspecified] Onset: 5 02-27-2024 Episodic Nutritional deficiencies (4 sources) Vitamin D deficiency; Translations: [Vitamin D deficiency, unspecified] Onset: 5 Chronic Nutritional deficiencies (2 sources) Cobalamin deficiency; Translations: [Deficiency of other specified B group vitamins] Episodic Osteoarthritis (1 source) Bilateral primary osteoarthritis of knee; Translations: [Primary osteoarthritis of both knees] Onset: 5 Chronic Other connective tissue disease (20 sources) Fibromyalgia; Translations: [Fibromyalgia] Onset: 3 Episodic Other connective tissue disease (1 source) Pain in right thumb; Translations: [Pain in right finger(s)] 11-25-2023 Episodic Other connective tissue disease (1 source) Repeated falls; Translations: [Falling] Onset: 5 Episodic Other ear and sense organ disorders (1 source) Bilateral tinnitus; Translations: [Tinnitus, bilateral] 04-16-2025 Episodic Other ear and sense organ disorders (1 source) Pulsatile tinnitus, unspecified ear; Translations: [Pulsatile tinnitus, unspecified ear] Onset: 5 Episodic Other gastrointestinal disorders (20 sources) Irritable [...] chronic pain; Translations: [Other chronic pain] Onset: 5 Chronic Other nervous system disorders (10 sources) Burning sensation; Translations: [Other disturbances of skin sensation] 07-12-2023 Episodic Other nervous system disorders (1 source) Impaired cognition; Translations: [Other symptoms and signs involving cognitive functions and awareness] 07-12-2023 Episodic Other nervous system disorders (1 source) Paresthesia of lower extremity; Translations: [Paresthesia of skin] 04-16-2025 Episodic Other nervous system disorders (1 source) Anesthesia of skin; Translations: [Numbness and tingling of both legs] Onset: 5 Episodic Other nervous system disorders (2 sources) Paresthesia of skin; Translations: [Numbness and tingling of both legs] Onset: 5 Episodic Other nervous system disorders (1 source) Other abnormalities of gait and mobility; Translations: [Balance problem] Onset: 5 Episodic Other nutritional; endocrine; and metabolic disorders [...] disc disorders; other back problems (3 sources) Degeneration of lumbar intervertebral disc; Translations: [Other intervertebral disc degeneration, lumbar region] Chronic Spondylosis; intervertebral disc disorders; other back problems (5 sources) Chronic low back pain; Translations: [Lumbago with sciatica, left side] Onset: 5 Episodic Past or Other Problems Problem Classification Problem Date Documented Da te Episodic/Chronic Abdominal pain (20 sources) Abdominal pain; Translations: [Unspecified abdominal pain] Onset: 10-15-2006 Resolved: 12-07-2020 12-07-2020 Episodic Conditions associated with dizziness or vertigo (20 sources) Peripheral vertigo; Translations: [Benign paroxysmal vertigo, bilateral] Onset: 05-23-2023 05-23-2023 Episodic Malaise and fatigue (5 sources) Asthenia; Translations: [Weakness] Onset: 11-10-2024 07-12-2023 Episodic Other aftercare (2 sources) group home (current) use of insulin; Translations: [Controlled type 2 diabetes mellitus without complication, with long-term current use of insulin (HCC)] Onset: 01-23-2023 Episodic Other aftercare (1 source) Other shelter (current) drug therapy; Translations: [Medication management] Onset: [...] Test Name Value Interpretation Reference Range Facility [facility] 09-03-2025 CNOV Office Visit (INTMWS ) IRMA STEWART ([id number]) 1960 F Date Time Provider Department 09/03/25 1:20 PM LALA HARRISON INTMWS During your visit today, we recorded the following information about you: Pulse Respiration Blood pressure Weight 80/minute 16/minute 132/80 110.2 kg Lala Harrison APRN.[facility] 09/06/2025 12:56 PM Signed CC: Patient presents with: Recheck: BP follow up HPI Irma Stewart is a 65 year old female who presents today for BP follow up. Recently had metoprolol increased to better manage this. Recording using [employer] software for draft documentation of the visit was discussed with the patient/authorized commercial sales representative; all questions welcomed and answered. Patient/authorized commercial sales representative agreed to proceed Irma Stewart is a 65-year-old female with a history of HTN, anxiety, and depression, presenting for follow-up. Hypertension: - had elevated BP with pulsatile tinnitus at last visit that was resulting in increase of anxiety and EMS calls, had metoprolol increased - Well-controlled on metoprolol 75 mg BID. - Reports significant improvement in symptoms, including palpitations and paresthesia in legs. - Home BP readings range from 118/73 to 131/81 mmHg using a wrist monitor. - Recent ER visits x3 in the last 35 days; advised to use an arm cuff monitor due to inconsistent readings with wrist monitor. - Took 400 mg of Seroquel once, which reportedly caused anxiety. - denies chest pressure, dyspnea, edema, further tinnitus, or headaches. Anxiety, panic, Depression, and schizophrenia: - seeing psychiatry for this and meds are managed by psychiatrist. - Long-standing history of anxiety and depression, managed with Zoloft since 1993. - Recent increase in Zoloft dosage to 150 mg BID. - Cymbalta dosage adjusted from 60 mg and 40 mg to 40 mg BID; currently being weaned off. - New medication prescribed to aid sleep and stabilize mood. - Experiencing stress due to legal issues with brother and concerns about 's health. - Reports improved sleep and overall well-being with current medication regimen. REVIEW OF SYSTEMS See HPI PAST MEDICAL [...] SURGICAL HISTORY Procedure Laterality Date ARTHRP KNE CONDYLEANDPLATU MEDIALANDLAT COMPARTMENTS Right 04/19/2010 COLONOSCOPY W/BIOPSY SINGLE/MULTIPLE 04/24/07 EGD 1994 LAPS ABD PRTMANDOMENTUM DX W/WO SPEC BR/WA SPX Laparoscopy OTHER SURGICAL HISTORY (PLEASE SPECIFY) HX Spine injections, sees OTHER SURGICAL HISTORY (PLEASE SPECIFY) HX radiofrequency implant for chronic back pain. TONSILLECTOMY PRIMARY/SECONDARY Tonsillectomy in her 20s TX INGROWN TOENAIL Left VAGINAL HYSTERECTOMY UTERUS 250 GM/< 08/17/1997 Hysterectomy, vaginal ALLERGIES Betadine [Povidone-Iodine], Glimepiride, Haldol [Haloperidol], [place], Metformin, Neurontin [Gabapentin], Penicillins, Risperidone, Tylenol [Acetaminophen], and Victoza [Liraglutide] MEDICATIONS sertraline (ZOLOFT) 50 mg tablet Take 3 tablets by mouth two times a day. cholecalciferol, vitamin D3, (VITAMIN D3 PO) Take 2,000 Int'l Units/day by mouth once daily. semaglutide (OZEMPIC) 0.25 mg or 0.5 mg (2 mg/3 mL) pen Inject 0.25 mg subcutaneously one time a week. metoprolol tartrate, short acting, 75 mg tab Take 1 tablet by mouth two times a day. ferrous sulfate 325 mg (65 mg iron) tablet Take 1 tablet by mouth two times a day with meals. ergocalciferol 50,000 unit capsule (VITAMIN D2, DRISDOL) Take 1 capsule by mouth one time a week. (Patient not taking: Reported on 08/25/2025) (more content not included)... Normal [facility] 08-27-2025 CNPN Telephone (INTMWS) IRMA STEWART ([id number]) 1960 F Date Time Provider Department 08/27/25 MONIK HACKETT INTMWS During your visit today, we recorded the following information about you: Zaira Garcia RN 08/27/2025 9:10 AM Signed Significant Other (Get) calls to report there is a problem with patient's Lantus order at the pharmacy. Contacted [facility] and refill was sent through. Patient was trying to refill a prescription that had no refills on it. Bill also asking about refills of Cymbalta. Looks like filled by outside provider ([facility]). Notified would need to contact ordering provider for that. Call placed back to Get with no answer and not able to leave a voicemail. Contacted patient and notified. Patient also asking about refill of medication for anxiety. Notified patient that she would need to reach out to [facility] for those medications as they are the ones prescribing. Patient verbalizes understanding. Zaira Garcia RN Allergies As of Date: 08/27/2025 Noted Allergy Reaction BETADINE (POVIDONE-IODINE) 03/13/2007 16 - Unknown GLIMEPIRIDE 08/01/2020 5 - Intolerance Comments: Diarrhea HALDOL (HALOPERIDOL) 08/01/2020 14 - Other: See Comments Comments: Headache/hallucinations LITHIUM 08/01/2020 14 - Other: See Comments Comments: Hallucinations METFORMIN 08/01/2020 6 - Diarrhea NEURONTIN (GABAPENTIN) 08/01/2020 5 - Intolerance Comments: "felt poorly" PENICILLINS 03/13/2007 16 - Unknown Comments: Okay to take amoxil TYLENOL (ACETAMINOPHEN) 07/14/2020 5 - Intolerance VICTOZA (LIRAGLUTIDE) 08/01/2020 8 - GI Upset Date Reviewed: 08/25/2025 Reviewed by: Lion Cox LPN - Fully Assessed Prescriptions as of 08/27/2025 - cholecalciferol, vitamin D3, (VITAMIN D3 PO) Take 2,000 Int'l Units/day by mouth once daily. - semaglutide (OZEMPIC) 0.25 mg or 0.5 mg (2 mg/3 mL) pen Inject 0.25 mg subcutaneously one time a week. - metoprolol tartrate, short acting, 75 mg tab Take 1 tablet by mouth two times a day. - ferrous sulfate 325 mg (65 mg [...] 2 pills with 1 pill daily - insulin glargine-yfgn (SEMGLEE,INSULIN GLARG-YFGN,PEN) 100 unit/mL (3 mL) insulin pen INJECT 30 UNITS SUBCUTANEOUSLY ONCE DAILY - Lancets Test blood sugar(s) 3 times daily. Dx: Type 2 DM - Controlled E11.9 Insulin: Yes - rosuvastatin (CRESTOR) 10 mg tablet Take 1 tablet by mouth daily at bedtime. - alcohol swabs Apply 1 application to affected area three times a day. - insulin glargine (LANTUS SOLOSTAR U-100 INSULIN) [...] MILLIGRAMS Oral for 30 Days - Insulin [place], Disposable, (BD ULTRAFINE III MINI PEN) 31 gauge x 3/16" 1 Each two times a day. - Lancets Test blood sugar(s) 3 times daily. Dx: Type 2 DM - Controlled E11.9 Insulin: Yes - budesonide-formoterol (SYMBICORT) 160-4.5 mcg/actuation inhaler Inhale 2 Puffs as instructed two times a day. - albuterol HFA (PROVENTIL HFA, VENTOLIN HFA) 90 mcg/actuation inhaler Inhale 2 Puffs as instructed every 4 hours as needed. - PULSE OXIMETER [facility] Use as needed to monitor oxygen level and heart rate - omeprazole (PRILOSEC) 20 mg capsule Take 1 capsule by mouth once daily. - DULoxetine 60 mg CDRS Take 60 mg by mouth two times a day. 100 MG by mouth daily - ZOLOFT 100 MG TAB Take one (1) and one samere (more content not included)... Normal [facility] CNOVon 08-25-2025 CNOV Office Visit (INTMWS ) IRMA STEWART ([id number]) 1960 F Date Time Provider Department 08/25/25 9:20 AM MONIK HACKETT During your visit today, we recorded the following information about you: Pulse Respiration Blood pressure Weight 78/minute 20/minute 138/80 114.3 kg Monik Hackett MD 08/25/2025 10:12 AM Signed We discussed your diabetes and diabetic neuropathy: - Continue taking metformin ER and Lantus as you have been. - We will start Ozempic with a once-weekly injection to help you lose weight and improve your blood sugar control. You should continue taking metformin ER and Lantus while starting Ozempic. As your blood sugar improves and you lose weight, we may be able to decrease or stop Lantus in the future. - I recommend working with a pharmacist who will meet with you weekly to review your medications and discuss your diet and diabetes management. - Your recent hemoglobin A1c has improved from 7.4 to 7.1, which is a positive change. - The tingling, burning, and stabbing pain in your legs may be related to diabetic neuropathy, but we will also check for other causes. We discussed your back pain, sciatica, and lumbar radiculopathy: - I am ordering an EMG to help us understand the cause of your numbness, tingling, and pain in both legs. - I am ordering a lumbar spine x-ray to further evaluate your back. - I am referring you to pain management for assessment and support. - I am referring you to physical therapy to help you strengthen your core muscles and improve your back pain and mobility. We discussed your high ferritin level and inflammation: - Your high ferritin may be related to inflammation from liver fat (adiposity) and stress. - Reducing your weight and improving your diabetes control may help lower your inflammation. Follow-up: - You will have an EMG and a lumbar spine x-ray as discussed. - I am referring you to pain management and physical therapy. - I recommend meeting with the pharmacist weekly to review your medications and diabetes care. Monik Hackett MD 08/25/2025 1:00 PM Signed Reason for Visit Follow up HPI Irma Stewart is a 65-year-old female with a history of DM, presenting with bilateral lower extremity paresthesia and pain. Irma reports a longstanding history of bilateral lower extremity paresthesia, described as a tingling sensation starting from the toes and extending upwards. This sensation has been present for several years but has recently worsened to the point where she cannot stand at night. She describes the paresthesia as a burning and tingling sensation, accompanied by stabbing and electric shock-like pains in various locations on her legs. She also experiences muscle contractions at night, causing her legs to feel tight. She has fallen four times in the past four months and has been to the ER three times, with two visits requiring transport by [facility]. She reports feeling weak, unable to eat, and experiencing high blood pressure, which she attributes to her medications, including Depakote and Seroquel. She is currently off these medications and is awaiting the results of a gene test performed by her counselor. Irma has a family history of peripheral artery disease, with five family members affected. Irma also has a history of sciatica, which she believes may be contributing to her symptoms. She reports severe back pain, describing it as an arching pain that radiates down her legs. She has not yet tried physical therapy and is concerned about a possible tumor in her neck. She also reports ringing in her ears and believes she may have a compressed nerve. Irma has a history of DM, with a recent hemoglobin A1c of 7.1, down from 7.4. She is currently taking Lantus and metformin ER for her diabetes. She reports blood sugar levels reaching up to 270-280 mg/dL after meals, despite taking 30 units of Lantus and metformin after eating. She eats once a day and has been trying to lose weight, with some success. She expresses interest in trying Ozempic again, despite previous nausea, in hopes of further weight loss and better blood sugar control. Irma also reports high ferritin levels, which she believes may be due to inflammation in her body. She has a history of severe osteoarthritis and a possible torn meniscus, which she believes may be contributing to her symptoms. She also reports a knee replacement, which she is able to walk on, but experiences pain from her sciatica injury, making it difficult for her to stand or walk. She reports feeling dizzy and lightheaded, with high blood pressure, and is unable to exercise due to her pain. She has a history of being a vegetarian for most of her life and expresses a desire to change her diet to improve her health. Irma reports significant stress and inflammation due to the loss of eigh (more content not included)... Normal [facility] XR LUMBAR 3V AP/LAT/L5-S1on 08-25-2025 XR LUMBAR 3V AP/LAT/L5-S1 * * *Final Report* * * DATE OF EXAM: Aug 25 2025 10:58AM WOX [id number] - XR LUMBAR 3V AP/LAT/L5-S1 / PROCEDURE REASON: Bilateral low back pain with sciatica, sciatica laterality unspecified, unspecif * * * * Physician Interpretation * * * * EXAMINATION: XR LUMBAR 3V AP/LAT/L5-S1 CLINICAL HISTORY: Bilateral low back pain with sciatica Technique: XR LUMBAR 3V AP/LAT/L5-S1 -- NOT APPLICABLE with 3 views on 3 images Comparison: X-ray lumbar spine 02/22/2023 RESULT: Counting reference: Lumbosacral junction. For the purposes of this report, L4-5 is considered the level of the iliac crest and assume there are 5 lumbar-type vertebrae. Anatomic variant: None. No acute fracture or facet subluxation. Slight curvature of the lower thoracic spine towards the left. Mild multilevel intervertebral disc space narrowing with vertebral body osteophytes which is most pronounced at L2-3 and L5-S1. Multilevel facet joint degenerative disease. IMPRESSION: No acute fracture. Degenerative disease of the lumbar spine. Reed Repairer: PSCB Transcribe Date/Time: Sep 02 2025 10:07A Dictated by : MAGDA ARTEAGA MD This examination was interpreted and the report reviewed and electronically signed by: MAGDA ARTEAGA MD on Sep 02 2025 10:08AM EST [id number] Normal [facility] ([id number]) 1960 F Date Time Provider Department 08/23/25 MONIK HACKETT During your visit today, we recorded the following information about you: Zaira Garcia RN 08/23/2025 9:40 AM Signed Significant other (Get) calls to ask about several things. The sertraline dose on our orders doesn't match what is at the pharmacy. Get reports that our orders say sertraline 150 mg twice daily but Lala instructed patient to take 150 mg at bedtime. Recommended taking sertraline 150 mg at bedtime if that is what is ordered at pharmacy and instructed at last appt. Get asks to verify with Lala. Looks like ordered outside of [facility]. Get reports patient [facility] no [facility] but has one refill of the Sertraline 150 mg daily prescription left. Also, requesting short acting insulin orders rather than long acting. Asked about blood sugars and Get reports blood sugars range from 125 to 135 fasting and throughout the day. Notified Get short acting insulin would not be recommended for those blood sugar readings. Also, asking about refill of metoprolol 75 mg twice daily prescription. Reports [facility] has not received the new order. Contacted [facility]. Medication was out of stock and ordered. Patient will be contacted once available. Notified Get. LAZARA Chavez Joy, APRN.CNP 08/23/2025 3:28 PM Signed She sees psychiatry for her sertraline. I am sorry for any confusion, but she needs to take it as prescribed by them. I do not remember discussing the sertraline specifically but that psychiatry was making many changes to her meds and she needs to continue with their recommendations. She should call her psychiatrist to ask how she should be taking this. Insulin can be discussed at follow up appointment. Thank you Lala Harrison APRN.PORTFOLIO STRATEGIST Lisa Helm MA 08/23/2025 3:37 PM Signed Spouse Get notified. Allergies As of Date: 08/23/2025 Noted Allergy Reaction BETADINE (POVIDONE-IODINE) 03/13/2007 16 - Unknown GLIMEPIRIDE 08/01/2020 5 - Intolerance Comments: Diarrhea HALDOL (HALOPERIDOL) 08/01/2020 14 - Other: See Comments Comments: Headache/hallucinations LITHIUM 08/01/2020 14 - Other: See Comments Comments: Hallucinations METFORMIN 08/01/2020 6 - Diarrhea NEURONTIN (GABAPENTIN) 08/01/2020 5 - Intolerance Comments: "felt poorly" PENICILLINS 03/13/2007 16 - Unknown Comments: Okay to take amoxil TYLENOL (ACETAMINOPHEN) 07/14/2020 5 - Intolerance VICTOZA (LIRAGLUTIDE) 08/01/2020 8 - GI Upset Date Reviewed: 08/20/2025 Reviewed by: Lala Harrison APRN.PORTFOLIO STRATEGIST - Fully Assessed Reason for Visit: Patient Question [1477] Prescriptions as of 08/23/2025 - risperiDONE (RISPERDAL) 2 mg tablet Take 2 mg by mouth once daily. - metoprolol tartrate, short acting, 75 mg tab Take 1 tablet by mouth two times a day. - ferrous sulfate 325 mg (65 mg [...] 2 pills with 1 pill daily - insulin glargine-yfgn (SEMGLEE,INSULIN GLARG-YFGN,PEN) 100 unit/mL (3 mL) insulin pen INJECT 30 UNITS SUBCUTANEOUSLY ONCE DAILY - Lancets Test blood sugar(s) 3 times daily. Dx: Type 2 DM - Controlled E11.9 Insulin: Yes - rosuvastatin (CRESTOR) 10 mg tablet Take 1 tablet by mouth daily at bedtime. - alcohol swabs Apply 1 application to affected area three times a day. - insulin glargine (LANTUS SOLOSTAR U-100 INSULIN) 100 unit/mL (3 mL) Inject 30 Units subcutaneously once daily. - blood sugar diagnostic (BLOOD GLUCOSE TEST) test strip Test blood sugar(s) 3 times daily. Dx: Type 2 DM - Controlled E11.9 Insulin: Yes - DULoxetine (CYMB (more content not included)... Normal [facility] CNOVon 08-20-2025 CNOV Office Visit (INTMWS ) IRMA STEWART ([id number]) 1960 F Date Time Provider Department 08/20/25 9:20 AM LALA HARRISON INTMWS During your visit today, we recorded the following information about you: Pulse Respiration Blood pressure Weight 92/minute 16/minute 142/82 112.5 kg Lala Harrison APRN.CNP 08/20/2025 11:01 AM Signed CC: Patient presents with: Elsie BELL Irma Steawrt is a 65 year old female who presents today for multiple concerns. Is accompanied by significant other. Recording using [employer] software for draft documentation of the visit was discussed with the patient/authorized commercial sales representative; all questions welcomed and answered. Patient/authorized commercial sales representative agreed to proceed Irma Stewart is a 65-year-old female with a history of HTN, schizophrenia, anxiety, and panic disorder, presenting for follow-up after multiple ER visits for dizziness, nausea, and elevated blood pressure. Dizziness and Nausea: - Dizziness and nausea x2 months. - Recent ear crystal adjustment by Dr. Tamez 4 weeks ago. - Multiple ER visits (Derrick and Natalia) in the past 20 days for severe dizziness, nausea, and elevated BP. - Recent CT head, EKG, lab work, UA, and X-ray in the ER were unremarkable. - Reports feeling "wobbly" and unsteady, with 3 falls in the past 2 months. - Denies current nausea; notes nausea is triggered by elevated BP. Hypertension: - Home BP readings range from 130s-160s/80s. - Current medications include metoprolol 50 mg BID and Lasix, taken 1 pill one day and 2 pills the next. - Reports severe chest pressure and palpitations, with a sensation of a heartbeat in the ears and ankles. - Recent psychiatric evaluation noted elevated BP. - Reports that current antihypertensive regimen is not effectively controlling BP. Anxiety and Panic Disorder: - History of anxiety and panic disorder, previously managed with Klonopin since 1994. - Recent discontinuation of Klonopin by a new provider led to increased anxiety and stress. - Recent medication changes include discontinuation of Depakote and Seroquel, and initiation of Risperidone last night, which resulted in hallucinations. - Currently taking medication for anxiety PRN, but reports it is not effective. - Recent genetic testing performed to determine appropriate psychiatric medications. - Reports significant stress due to recent family deaths and legal issues with her brother. REVIEW OF SYSTEMS See HPI PAST MEDICAL [...] SURGICAL HISTORY Procedure Laterality Date ARTHRP KNE CONDYLEANDPLATU MEDIALANDLAT COMPARTMENTS Right 04/19/2010 COLONOSCOPY W/BIOPSY SINGLE/MULTIPLE 04/24/07 EGD 1994 LAPS ABD PRTMANDOMENTUM DX W/WO SPEC BR/WA SPX Laparoscopy OTHER SURGICAL HISTORY (PLEASE SPECIFY) HX Spine injections, sees OTHER SURGICAL HISTORY (PLEASE SPECIFY) HX radiofrequency implant for chronic back pain. TONSILLECTOMY PRIMARY/SECONDARY Tonsillectomy in her 20s TX INGROWN TOENAIL Left VAGINAL HYSTERECTOMY UTERUS 250 GM/< 08/17/1997 Hysterectomy, vaginal ALLERGIES Betadine [Povidone-Iodine], Glimepiride, Haldol [Haloperidol], [place], Metformin, Neurontin [Gabapentin], Penicillins, Tylenol [Acetaminophen], and Victoza [Liraglutide] MEDICATIONS risperiDONE (RISPERDAL) 2 mg tablet Take 2 mg by mouth once daily. metoprolol tartrate, short acting, 75 mg tab Take 1 tablet by mouth two times a day. ferrous sulfate 325 mg (65 mg iron) tablet Take 1 tablet by mouth two times a day with meals. ergocalciferol 50,000 un (more content not included)... Normal [facility] HbA1c (Bld)on 08-20-2025 Average glucose Estimated from glycated hemoglobin (Bld) [Mass/Vol] 157 mg/dL Normal [facility] Comment on above: Order Comment: Speci men Type: BLOOD SPECIMENOrdering Facility: [facility] Address: [address] [place] [address] Result Comment: eAG: (Estimated average glucose) is a calculated value from HgbA1c and is commercial sales representative of the average blood glucose level in the last 2-3 month period. Performed By: #### 5 5454-3 ####[facility] LABCLIA [id number] [place] [address] [place] HbA1c (Bld) [Mass fraction] 7.1 % High 4.3-5.6 [facility] Comment on above: Order Comment: Corky jiménez Type: BLOOD SPECIMENOrdering Facility: [facility] Address: [address] [place] [address] Result Comment: Amer [place] Diabetes Association guidelines indicate that patients with HgbA1c in the range 5.7-6.4% are at increased risk for development of diabetes, and intervention by lifestyle modification may be beneficial. HgbA1c greater or equal to 6.5% is considered diagnostic of diabetes. Performed By: #### 5 5454-3 ####[facility] LABCLIA [id number] [place] [address] [place] TSH SerPl-aCncon 08-20-2025 TSH Qn 1.650 m[IU]/L Normal 0.270-4.200 [facility] Comment on above: Order Comment: Corky jiménez Type: BLOOD SPECIMEN [facility]ing Facility: [facility] Address: [address] [place] [address] Performed By: #### 1 989-3 #### [facility] CLIA [id number] [address] [place], [place] [id number] [place] .Auto Diffon 08-17-2025 Basophil, Absolute 0.1 10 3/mcL Normal 0.0-0.3 [facility] Comment on above: Performed By: #### C RACHELLE PATEL GFR, ANEU, MDW, [place] MEJIA #### [address] [address] Basophils/100 WBC (Bld) 1.1 % Normal 0.0-2.5 [facility] Comment on above: Performed By: #### C RACHELLE PATEL GFR, ANEU, MDW, [place] MEJIA #### [address] [address] Eosinophil, Absolute 0.0 10 3/mcL Normal 0.0-0.7 [facility] Comment on above: Performed By: #### C BC, ADIFF, GFR, ANEU, MDW, TROPHS, BMP #### [address] [address] Eosinophils/100 WBC (Bld) 0.4 % Normal 0.0-6.0 [facility] Comment on above: Performed By: #### C BC, ADIFF, GFR, ANEU, MDW, TROPHS, BMP #### [address] [address] Lymphocyte, Absolute 2.0 10 3/mcL Normal 0.9-4.3 [facility] Comment on above: Performed By: #### C BC, ADIFF, GFR, ANEU, MDW, TROPHS, BMP #### [address] [address] Lymphocytes/100 WBC (Bld) 29.9 % Normal 20.0-40.0 [facility] Comment on above: Performed By: #### C BC, ADIFF, GFR, ANEU, MDW, TROPHS, BMP #### [address] [address] Monocyte, Absolute 0.4 10 3/mcL Normal 0.1-1.4 [facility] Comment on above: Performed By: #### C BC, ADIFF, GFR, ANEU, MDW, TROPHS, BMP #### [address] [address] Monocytes/100 WBC (Bld) 5.3 % Normal 2.0-13.0 [facility] Comment on above: Performed By: #### C BC, ADIFF, GFR, ANEU, MDW, TROPHS, BMP #### [address] [address] Neutrophils/100 WBC (Bld) 63.3 % Normal 50.0-75.0 [facility] Comment on above: Performed By: #### C BC, ADIFF, GFR, ANEU, MDW, TROPHS, BMP #### [address] [address] .GFRon 08-17-2025 Estimated Glomerular Filtration Rate 86 ml/min/1.73sqm Normal [facility] Comment on above: Result Comment: Stages of Chronic Kidney Disease (CKD) Stage Description eGFR(ml/min/1.73 sq.m.) CKD 1 Normal kidney function or >=90 normal kindney function with possible kidney damage (ex. Proteinuria) CKD 2 Kidney damage with mild loss 60-89 of kidney function CKD 3a Mild to moderate loss of kidney 45-59 function CKD 3b Moderate to severe loss of 30-44 of kindey function CKD 4 Severe loss of kidney function 15-29 CKD 5 Kidney failure <15 Note: (go live 2024) the eGFR calculation was updated to the 2020 CKD-EPI creatinine equation without a race factor to calculate the eGFR results. Performed By: #### C BC, ADIFF, GFR, ANEU, MDW, TROPHS, BMP #### [id number] [place], [place] [address] .MDWon 08-17-2025 Monocyte Distribution Width 14.86 Normal 0.00-20.00 [facility] Comment on above: Result Comment: For ED adult patients suspected of sepsis, MDW<=20.0 does not rule out sepsis or risk of sepsis Performed By: #### C BC, ADIFF, GFR, ANEU, MDW, TROPHS, BMP #### [address] [address] .NEUABSon 08-17-2025 Neutrophil, Absolute 4.3 10 3/mcL Normal 2.3-8.1 [facility] Comment on above: Performed By: #### C BC, ADIFF, GFR, ANEU, MDW, TROPHS, BMP #### [address] [place], [place] [address] BMPon 08-17-2025 BUN/Creatinine Ratio 14 ratio Normal 7-27 [facility] Comment on above: Performed By: #### C BC, ADIFF, GFR, ANEU, MDW, TROPHS, BMP #### [address] [place], [place] [address] Calcium [Mass/Vol] 9.1 mg/dL Normal 8.4-10.2 [facility] Comment on above: Performed By: #### C BC, ADIFF, GFR, ANEU, MDW, TROPHS, BMP #### [address] [address] Chloride [Moles/Vol] 100 mmol/L Normal 98-107 [facility] Comment on above: Performed By: #### C BC, ADIFF, GFR, ANEU, MDW, TROPHS, BMP #### [address] [address] CO2 [Moles/Vol] 31 mmol/L Normal 23-31 [facility] Comment on above: Performed By: #### C BC, ADIFF, GFR, ANEU, MDW, TROPHS, BMP #### [place] [address] Creatinine [Mass/Vol] 0.77 mg/dL Normal 0.51-0.95 [facility] Comment on above: Performed By: #### C BC, ADIFF, GFR, ANEU, MDW, TROPHS, BMP #### [place] [address] Electrolyte Balance 7.0 mEq/L Normal 4.0-15.0 [facility] Comment on above: Performed By: #### C BC, ADIFF, GFR, ANEU, MDW, TROPHS, BMP #### [address] [address] Glucose [Mass/Vol] 187 mg/dL High 80-115 [facility] Comment on above: Performed By: #### C BC, ADIFF, GFR, ANEU, MDW, TROPHS, BMP #### [address] [address] Potassium [Moles/Vol] 3.7 mmol/L Normal 3.5-5.1 [facility] Comment on above: Performed By: #### C BC, ADIFF, GFR, ANEU, MDW, TROPHS, BMP #### [place] [address] Sodium [Moles/Vol] 138 mmol/L Normal 136-145 [facility] Comment on above: Performed By: #### C BC, ADIFF, GFR, ANEU, MDW, TROPHS, BMP #### [place] [address] Urea nitrogen [Mass/Vol] 11 mg/dL Normal 7-18 [facility] Comment on above: Performed By: #### C BC, ADIFF, GFR, ANEU, MDW, TROPHS, BMP #### [place] [address] CBCon 08-17-2025 Erythrocyte distribution width (RBC) [Ratio] 13.4 % Normal 11.5-15.5 [facility] Comment on above: Performed By: #### C BC, ADIFF, GFR, ANEU, MDW, TROPHS, BMP #### [place] [address] Hematocrit (Bld) [Volume fraction] 43.0 % Normal 34.0-46.0 [facility] Comment on above: Performed By: #### C BC, ADIFF, GFR, ANEU, MDW, TROPHS, BMP #### [place] [address] Hgb 14.7 G/dL Normal 12.0-16.0 [facility] Comment on above: Performed By: #### C BC, ADIFF, GFR, ANEU, MDW, TROPHS, BMP #### [place] [address] MCH (RBC) [Entitic mass] 30.7 pg Normal 27.0-33.0 [facility] Comment on above: Performed By: #### C BC, ADIFF, GFR, ANEU, MDW, TROPHS, BMP #### [place] [address] MCHC 34.1 G/dL Normal 32.0-36.0 [facility] Comment on above: Performed By: #### C BC, ADIFF, GFR, ANEU, MDW, TROPHS, BMP #### [place] [address] MCV (RBC) [Entitic vol] 90.1 fL Normal 80.0-99.0 [facility] Comment on above: Performed By: #### C BC, ADIFF, GFR, ANEU, MDW, TROPHS, BMP #### [address] [address] Platelet 191 10 3/mcL Normal 150-450 [facility] Comment on above: Performed By: #### C BC, ADIFF, GFR, ANEU, MDW, TROPHS, BMP #### [address] [address] Platelet mean volume (Bld) [Entitic vol] 8.4 fL Normal 6.6-10.5 [facility] Comment on above: Performed By: #### C BC, ADIFF, GFR, ANEU, MDW, TROPHS, BMP #### [address] [address] RBC 4.77 10 6/mcL Normal 4.10-5.30 [facility] Comment on above: Performed By: #### C BC, ADIFF, GFR, ANEU, MDW, TROPHS, BMP #### [address] [address] WBC 6.8 10 3/mcL Normal 4.5-10.8 [facility] Comment on above: Performed By: #### C BC, ADIFF, GFR, ANEU, MDW, TROPHS, BMP #### [address] [address] LABORATORYOrdered By: SYSTEM SYSTEM on 08-17-2025 Troponin I.cardiac DL <= 0.01 ng/mL [Mass/Vol] 4 ng/L Normal 0 - 51 ng/L AO ADM SS Comment on above: Interpretive Data: H igh Sensitive Troponin I Reference Ranges: Female: 0-51 ng/L Male: 0-76 ng/L Testing performed on eCullet using a homogeneous sandwich chemiluminescent immunoassay based on [employer] technology. Basophils (Bld) [#/Vol] 0.1 103/mcL Normal 0.0 - 0.3 10^3/mcL AO Workflow SS Basophils/100 WBC (Bld) 1.1 % Normal 0.0 - 2.5 % AO Workflow SS Calcium [Mass/Vol] 9.1 mg/dL Normal 8.4 - 10. 2 mg/dL AO ADM SS Chloride [Moles/Vol] 100 mmol/L Normal 98 - 10 7 mmol/L AO ADM SS CO2 [Moles/Vol] 31 mmol/L Normal 23 - 31 mmol/L AO ADM SS Creatinine [Mass/Vol] 0.77 mg/dL Normal 0.51 - 0.95 mg/dL AO ADM SS Electrolyte Balance 7.0 mEq/L Normal 4.0 - 15 .0 mEq/L AO ADM SS Eosinophil, Absolute 0.0 103/mcL Normal 0.0 - 0 .7 10^3/mcL AO Workflow SS Eosinophils/100 WBC (Bld) 0.4 % Normal 0.0 - 6.0 % AO Workflow SS Erythrocyte distribution width (RBC) [Ratio] 13.4 % Normal 11.5 - 15.5 % AO Workflow SS GLOMERULAR FILTRATION RATE/1.73 SQ M.PREDICTED:ARVRAT:P T:SER/PLAS/BLD:QN:CR EATININE-BASED FORMULA (CKD-EPI 2020) 86 ml/min/1.73sqm Invalid Interpretation Code AO Chemistry S Comment on above: Interpretive Data: Stages of Chronic Kidney Disease (CKD) Stage Description eGFR(ml/min/1.73 sq.m.) CKD 1 Normal kidney function or >=90 normal kindney function with possible kidney damage (ex. Proteinuria) CKD 2 Kidney damage with mild loss 60-89 of kidney function CKD 3a Mild to moderate loss of kidney 45-59 function CKD 3b Moderate to severe loss of 30-44 of kindey function CKD 4 Severe loss of kidney function 15-29 CKD 5 Kidney failure <15 Note: (go live 2024) the eGFR calculation was updated to the 2020 CKD-EPI creatinine equation without a race factor to calculate the eGFR results. Glucose [Mass/Vol] 187 mg/dL High 80 - 115 mg/dL AO ADM SS Hematocrit (Bld) [Volume fraction] 43.0 % Normal 34.0 - 46.0 % AO Workflow SS Hemoglobin (Bld) [Mass/Vol] 14.7 G/dL Normal 12.0 - 16.0 G/dL AO Workflow SS Lymphocytes (Bld) [#/Vol] 2.0 103/mcL Normal 0.9 - 4.3 10^3/mcL AO Workflow SS Lymphocytes/100 WBC (Bld) 29.9 % Normal 20.0 - 40.0 % AO Workflow SS MCH (RBC) [Entitic mass] 30.7 pg Normal 27.0 - 33.0 pg AO Workflow SS MCHC 34.1 G/dL Normal 32.0 - 36.0 G/dL AO Workflow SS MCV (RBC) [Entitic vol] 90.1 fL Normal 80.0 - 99.0 fL AO Workflow SS Monocyte distribution width Auto (Bld) [Entitic vol] 14.86 1 Normal 0.00 - 20.00 AO Workflow SS Comment on above: Result Comment: For ED adult patients suspected of sepsis, MDW<=20.0 does not rule out sepsis or risk of sepsis Monocytes (Bld) [#/Vol] 0.4 103/mcL Normal 0.1 - 1.4 10^3/mcL AO Workflow SS Monocytes/100 WBC (Bld) 5.3 % Normal 2.0 - 13.0 % AO Workflow SS Neutrophils (Bld) [#/Vol] 4.3 103/mcL Normal 2.3 - 8.1 10^3/mcL AO Workflow SS Neutrophils/100 WBC (Bld) 63.3 % Normal 50.0 - 75.0 % AO Workflow SS Platelet mean volume (Bld) [Entitic vol] 8.4 fL Normal 6.6 - 10.5 fL AO Workflow SS Platelets (Bld) [#/Vol] 191 103/mcL Normal 150 - 450 10^3/mcL AO Workflow SS Potassium [Moles/Vol] 3.7 mmol/L Normal 3.5 - 5.1 mmol/L AO ADM SS RBC (Bld) [#/Vol] 4.77 106/mcL Normal 4.10 - 5.3 0 10^6/mcL AO Workflow SS Sodium [Moles/Vol] 138 mmol/L Normal 136 - 145 mmol/L AO ADM SS Troponin I.cardiac DL <= 0.01 ng/mL [Mass/Vol] ng/L Normal 0 - 51 ng/L AO ADM SS Comment on above: Interpretive Data: H igh Sensitive Troponin I Reference Ranges: Female: 0-51 ng/L Male: 0-76 ng/L Testing performed on eCullet using a homogeneous sandwich chemiluminescent immunoassay based on [employer] technology. Urea nitrogen [Mass/Vol] 11 mg/dL Normal 7 - 18 mg/dL AO ADM SS Urea nitrogen/Creatinine [Mass ratio] 14 ratio Normal 7 - 27 ratio AO ADM SS WBC (Bld) [#/Vol] 6.8 103/mcL Normal 4.5 - 10.8 10^3/mcL AO Workflow SS [facility] High Sensitivity Troponin I 4 ng/L Normal 0-51 [facility] Comment on above: Result Comment: High Sensitive Troponin I Reference Ranges: Female: 0-51 ng/L Male: 0-76 ng/L Testing performed on Dimension EXL using a homogeneous sandwich chemiluminescent immunoassay based on [employer] technology. Performed By: #### [facility] #### [id number] [place], [place] [address] High Sensitivity Troponin I <4 Normal 0-51 [facility] Comment on above: Result Comment: High Sensitive Troponin I Reference Ranges: Female: 0-51 ng/L Male: 0-76 ng/L Testing performed on Dimension EXL using a homogeneous sandwich chemiluminescent immunoassay based on [employer] technology. Performed By: #### C BC, ADIFF, GFR, ANEU, MDW, TROPHS, BMP #### [id number] [place], [place] [address] XR CHEST 1 VIEWon 08-17-2025 XR CHEST 1 VIEW ORIGINAL EXAMINATION: ONE XRAY VIEW OF THE CHEST08/17/2025 5:32 pm COMPARISON: None HISTORY: ORDERING SYSTEM PROVIDED HISTORY: Reason for Exam: chest pain FINDINGS: The cardiomediastinal contours are normal.Streaky bibasilar opacities. No large pleural effusion. No pneumothorax. There are no acute abnormalities to osseous structures. IMPRESSION: Streaky bibasilar opacities, likely atelectasis less likely possibility of airspace disease. I have personally reviewed the images of this examination and agree with the resident's findings and interpretation. Interpreted by: Travis Dickson Preliminary Report By: Winston Nava Electronically signed By Travis Dickson Dictated Date: 08/17/2025 5:54:48 PM Prelim Date: 08/17/2025 5:55:31 PM Sign Date: 08/17/2025 5:58:59 PM Ordering Provider: ASHLEY MARTIN Normal [facility] 12 Lead EKGon 08-02-2025 12 Lead EKG [facility] Cardiovascular Services [address] [place] [address] 12 Lead EKG 08/02/25 0146 MR#: [id number] Acct: [id number] Name: IRMA STEWART Rep #: [id number] : 1960 65 From: Robert Dominguez MD Attending Dr: Status: DEP ER Ordering Dr: Veronica Farmer DO Date: 08/02/25 Location: ED Sex: F C Admitted: Test Reason : DYSRHYTHMIA Blood Pressure : */* mmHG Vent. Rate : 77 BPM Atrial Rate : 77 BPM P-R Int : 140 ms QRS Dur : 86 ms QT Int : 438 ms P-R-T Axes : 68 45 52 degrees QTcB Int : 495 ms Normal sinus rhythm QTcB >= 480 msec Abnormal ECG Confirmed by ANGELA MCDERMOTT, ROBERT ([id number]), food expeditor CHANDRIKA NICHOLSON ([id number]) on 08/02/2025 8:39:42 AM Referred By: Confirmed By: ROBERT DOMINGUEZ MD 08/02/25 0839 Date Robert Dominguez MD CC: Dr. Monik Hackett MD; Dr. Veronica Farmer, Signed Normal [facility] CBC W/Diff, Automatedon 10-0 Absolute Lymph 3.03 X10 3/uL Normal 0.83-4.51 [facility] Comment on above: Performed By: #### L 100.0100, L500.4050 #### [facility] [address] [place], [address] Absolute Neut 3.2 X10 3/uL Normal 2.0-7.7 [facility] Comment on above: Performed By: #### L 100.0100, L500.4050 #### [facility] [address] [place], [address] Basophils/100 WBC (Bld) 0.6 % Normal 0-1 [facility] Comment on above: Performed By: #### L 100.0100, L500.4050 #### [facility] [address] [place], [address] Eosinophils/100 WBC (Bld) 1.2 % Normal 0-5 [facility] Comment on above: Performed By: #### L 100.0100, L500.4050 #### [facility] [address] [place], [address] Erythrocyte distribution width (RBC) [Ratio] 12.6 % Normal 11.6-14.6 [facility] Comment on above: Performed By: #### L 100.0100, L500.4050 #### [facility] [address] [place], [address] Hematocrit (Bld) [Volume fraction] 41.3 % Normal 37-47 [facility] Comment on above: Performed By: #### L 100.0100, L500.4050 #### [facility] [address] [place], [address] Hemoglobin (Bld) [Mass/Vol] 13.7 g/dL Normal 12.0-15.0 [facility] Comment on above: Performed By: #### L 100.0100, L500.4050 #### [facility] [address] [place], [address] IG% 0.100 Normal 0.0-0.9 [facility] Comment on above: Result Comment: IG% - Immature Granulocytes (promyelocytes, myelocytes and metamyelocytes) > 1% indicates that a LEFT SHIFT is Present. Performed By: #### L 100.0100, L500.4050 #### [facility] [address] [place], [address] Lymphocytes/100 WBC (Bld) 44.1 % High 19-41 [facility] Comment on above: Performed By: #### L 100.0100, L500.4050 #### [facility] [address] [place], [address] MCH (RBC) [Entitic mass] 29.9 pg Normal 27.0-32.0 [facility] Comment on above: Performed By: #### L 100.0100, L500.4050 #### [facility] [address] [place], [address] MCHC (RBC) [Mass/Vol] 33.2 g/dL Normal 32-36 [facility] Comment on above: Performed By: #### L 100.0100, L500.4050 #### [facility] [address] [place], [address] MCV (RBC) [Entitic vol] 90.2 fL Normal 81-99 [facility] Comment on above: Performed By: #### L 100.0100, L500.4050 #### [facility] [address] [place], [address] Monocytes/100 WBC (Bld) 7.0 % Normal 0-10 [facility] Comment on above: Performed By: #### L 100.0100, L500.4050 #### [facility] [address] [place], [address] Neutrophils/100 WBC (Bld) 47.0 % Normal 47-70 [facility] Comment on above: Performed By: #### L 100.0100, L500.4050 #### [facility] [address] [place], [address] Nucleated RBC (Bld) [#/Vol] 0 10*3/uL Normal 0-5 [facility] Comment on above: Performed By: #### L 100.0100, L500.4050 #### [facility] [address] [place], [address] Platelet mean volume (Bld) [Entitic vol] 10.7 fL Normal 6.2-12.0 [facility] Comment on above: Performed By: #### L 100.0100, L500.4050 #### [facility] [address] [place], [address] Platelets (Bld) [#/Vol] 172 10*3/uL Normal 150-450 [facility] Comment on above: Performed By: #### L 100.0100, L500.4050 #### [facility] [address] [place], [address] RBC (Bld) [#/Vol] 4.58 10*6/uL Normal 4.2-5.4 [facility] Comment on above: Performed By: #### L 100.0100, L500.4050 #### [facility] [address] [place], [address] RDW SD 40.9 fl Normal 35.1-43.9 [facility] Comment on above: Performed By: #### L 100.0100, L500.4050 #### [facility] [address] [place], [address] WBC (Bld) [#/Vol] 6.9 10*3/uL Normal 4.4-11.0 [facility] Comment on above: Performed By: #### L 100.0100, L500.4050 #### [facility] [address] [place], [address] Comprehensive Metabolic [facility] 08-02-2025 Albumin [Mass/Vol] 4.4 g/dL Normal 3.4-4.8 [facility] Comment on above: Performed By: #### L 100.0100, L500.4050 #### [facility] [address] [place], [address] Albumin/Globulin [Mass ratio] 1.8 {ratio} Normal 0.9-2.4 [facility] Comment on above: Performed By: #### L 100.0100, L500.4050 #### [facility] [address] [place], [address] ALK PHOS 87 U/L Normal 35-104 [facility] Comment on above: Performed By: #### L 100.0100, L500.4050 #### [facility] [address] [place], [address] ALT [Catalytic activity/Vol] 17 U/L Normal <=34 [facility] Comment on above: Performed By: #### L 100.0100, L500.4050 #### [facility] [address] [place], [address] AST [Catalytic activity/Vol] 21 U/L Normal <=31 [facility] Comment on above: Performed By: #### L 100.0100, L500.4050 #### [facility] [address] [place], [address] Bilirubin [Mass/Vol] 0.31 mg/dL Normal 0.00-1.30 [facility] Comment on above: Performed By: #### L 100.0100, L500.4050 #### [facility] [address] [place], [address] BUN/CRE 17.8 RATIO Normal 10-20 [facility] Comment on above: Performed By: #### L 100.0100, L500.4050 #### [facility] [address] [place], [address] Calcium [Mass/Vol] 9.0 mg/dL Normal 7.6-11.0 [facility] Comment on above: Performed By: #### L 100.0100, L500.4050 #### [facility] [address] [place], [address] Chloride [Moles/Vol] 97 mmol/L Low 98-108 [facility] Comment on above: Performed By: #### L 100.0100, L500.4050 #### [facility] [address] [place], [address] CO2 [Moles/Vol] 26.1 mmol/L Normal 21.0-32.0 [facility] Comment on above: Performed By: #### L 100.0100, L500.4050 #### [facility] [address] [place], [address] Creatinine [Mass/Vol] 0.90 mg/dL Normal 0.70-1.20 [facility] Comment on above: Performed By: #### L 100.0100, L500.4050 #### [facility] [address] [place], [address] GAP 15 Normal 5-15 [facility] Comment on above: Performed By: #### L 100.0100, L500.4050 #### [facility] [address] [place], [address] GFR/1.73 sq M.predicted among non-blacks MDRD (S/P/Bld) [Vol rate/Area] 71 mL/min/{1.73_m2} Normal >60 [facility] Comment on above: Result Comment: mL/m in/1.73m2 CKD-EPI Creatinine Equation (2020) Performed By: #### L 100.0100, L500.4050 #### [facility] [address] [place], [address] Globulin (S) [Mass/Vol] 2.4 g/dL Normal 2.2-4.2 [facility] Comment on above: Performed By: #### L 100.0100, L500.4050 #### [facility] [address] [place], [address] Glucose [Mass/Vol] 241 mg/dL High 70-99 [facility] Comment on above: Performed By: #### L 100.0100, L500.4050 #### [facility] [address] [place], [address] Potassium [Moles/Vol] 3.5 mmol/L Normal 3.3-5.1 [facility] Comment on above: Performed By: #### L 100.0100, L500.4050 #### [facility] [address] [place], [address] Sodium [Moles/Vol] 138 mmol/L Normal 133-145 [facility] Comment on above: Performed By: #### L 100.0100, L500.4050 #### [facility] [address] [place], [address] T PROT 6.8 g/dL Normal 5.9-8.4 [facility] Comment on above: Performed By: #### L 100.0100, L500.4050 #### [facility] [address] [place], [address] Urea nitrogen [Mass/Vol] 16 mg/dL Normal 4-19 [facility] Comment on above: Performed By: #### L 100.0100, L500.4050 #### [facility] [address] [place], [address] Emergency Department Summary on 08-02-2025 Emergency Department Summary [facility] Medical Records Department [address] [place] [address] Emergency Department Summary 08/02/25 MR#: [id number] Acct: [id number] Name: IRMA STEWART CHACHA Rep #: [id number] : 1960 65 From: Veronica Farmer DO PCP: Dr. Monik Hackett MD Status:DEP ER Location: ED HPI History of Present Illness Chief Complaint: Allergic Reaction Informant: patient and spouse/S.O. Narrative Narrative: Patient is a 65-year-old female with history of schizophrenia as well as panic disorder/anxiety and insomnia presenting with concern for medication reaction. Patient states she had been on long-term Seroquel 100 mg nightly for sleep. She has a new prescriber at the [facility] and was prescribed 400 mg of Seroquel XR to take at night. She never took this amount because she did not think she needed anything that strong. 5 days ago she ran out of her 100 mg Seroquel and was not able to get that refilled. States she took it for the first time tonight and then afterwards started to feel slow, generally weak, have dry mouth and felt numb in her face. She states she does not drink alcohol and never has but thinks this is what she might feel like if she were to. She was concerned that this would kill her or she was having a medication reaction so she came to the ER for further evaluation. Denies any difficulty breathing. States that she feels very anxious but is also very tired. Does note that she has been taking her blood pressure regularly since following up with Dr. Tamez for BPPV. He was worried that she maybe has some undiagnosed or inadequately treated hypertension so she been taking her blood pressure every night recently. [facility] Medical History Fibromyalgia Osteoarthritis DDD (degenerative disc disease) FHx: total knee replacement Overactive bladder Diabetes High cholesterol Hypertension Bipolar 1 disorder Depression Anxiety Panic disorder Home Medications ???Medication ???Instructions ???Recorded ???Last Taken ???Type oxybutynin chloride 10 mg 10 mg PO QHS 11/27/13 09/29/23 His tory tablet,extended release 24 hr (Ditropan XL) quetiapine 200 mg tablet (Seroquel) 150 mg PO QHS 11/27/13 09/29/23 History metoprolol tartrate 50 mg tablet 50 mg PO BID 12/04/13 09/30/23 His tory cholecalciferol (vitamin D3) 25 2,000 unit PO DAILY 10/22/1409/30 History mcg (1,000 unit) tablet (Vitamin D3) duloxetine 60 mg capsule,delayed 60 mg PO DAILY 10/22/14 09/30/23 H istory release omeprazole 20 mg capsule,delayed 20 mg PO DAILY 10/22/14 09/30/23 H istory release pregabalin 50 mg capsule 175 mg PO BID 10/22/14 09/30/23 Hi story furosemide 20 mg tablet 20 mg PO DAILY 07/27/20 09/30/23 H istory insulin glargine 100 unit/mL (3 30 - 40 unit SQ QHS 07/27/2009/30 History mL) subcutaneous pen sertraline 100 mg tablet 400 mg PO DAILY 07/27/20 09/30/23 History quetiapine 100 mg tablet (Seroquel) 100 mg PO QHS #15 tabs 08/02/25 Unknown Rx rosuvastatin 10 mg tablet 10 mg PO QHS 08/02/25 Unknown Hist ory Allergy/AdvReac Type Severity Reaction Status Date / Time acetaminophen (From Tylenol) Allergy Swelling Verified 08/02/25 01:13 amoxicillin (Amoxicillin) Allergy Rash Verified 08/02/25 01:13 haloperidol (From Haldol) Allergy Other Verified 08/02/25 01:13 haloperidol lactate (From Allergy Other Verified 08/02/25 01:13 Haldol) lithium ([place]) Allergy Other Verified 08/02/25 01:13 naproxen sodium (From Aleve) Allergy Swelling Verified 08/02/25 01:13 Family History no significant family his Surgical History History of tonsillectomy History of rectal surgery H/O: hysterectomy Social History Smoking Status: Never smoker ROS ROS ED Constitutional Constitutional ED: Reports other Details: Reports feeling generally weak ; Denies chills or fever(s) Eyes Eyes: Denies change in vision Cardiovascular Cardiovascular: Denies chest pain Respiratory/Chest Respiratory/Chest: Denies dyspnea Gastrointestinal Gastrointestinal: Denies abdominal pain, nausea or vomiting Neurologic Neurologic: Reports paresthesias and weakness; Denies headache(s) Psychiatric Psychiatric: Reports anxiety Hematologic/Lymphatic Hematologic/Lymphatic: Denies easy bleeding or easy bruising EXAM Physical Exam Const Vital Signs: 08/02/25 01:13 08/02/25 03:11 08/02/25 03:27 Temperature 98.5 F Temperature Source Oral Pulse Rate 89 79 Pulse Rate [Lying] 81 Pulse Rate [Sitting (for 1 minute prior to obtaining)] 82 Pulse Rate [Standing (for 1 minute prior to obtaining)] 88 Respiratory Rate 18 14 (more content not included)... Normal [facility] Brain/Head without Contrasto n 07-31-2025 Brain/Head without Contrast [facility] Imaging Services [address] [place] [address] Brain/Head without Contrast MR#: [id number] Acct: [id number] Name: IRMA STEWART Rep #: [id number] : 1960 F 65 From: Jerry zhou MD PCP: Dr. Monik Hackett MD Status: REG ER Study: Brain/Head without Contrast Date of Exam: 02/19 Exam# [id number] Ordering Dr: Jose Khoury MD PROCEDURE: BRAIN/HEAD WITHOUT CONTRAST 07/31/2025 REASON FOR EXAM: VERTIGO TECHNIQUE: Procedure Code: CTBR Modality: CT Procedure: BRAIN/HEAD WITHOUT CONTRAST Coronal and Sagittal reconstruction series were provided. One or more dose reduction techniques were used (e.g., Automated exposure control, adjustment of the mA and/or kV according to patient size, use of iterative reconstruction technique. RADIATION DOSE SUMMARY: CTDI Vol 44.99 mGy DLP :846.73 mGycm COMPARISON: None FINDINGS: The visualized brain parenchyma shows normal appearance. No focal parenchymal abnormalities are demonstrated. Zee-white matter differentiation is maintained. Normal CT appearance of the posterior fossa structures. No intracerebral or extra-axial hemorrhage. No midline shifts or deformity. Normal size and configuration of the cerebral ventricles. Prominent fronto-parietal extra-axial CSF spaces. No definite calvarial fractures. The osseous structures in the skull base are unremarkable. Paranasal sinuses are unremarkable. Vascular atheromatous calcifications. CT/Brain/Head without Contrast IMPRESSION: No intracerebral or extra-axial hemorrhage. No acute cerebrovascular insult. If clinical symptoms persist, further evaluation with MRI may be considered as clinically warranted. Reading Location: [place] [address] CC: Dr. Jose Khoury MD; Dr. Monik Hackett MD Reed Repairer: Signed Normal [facility] CBC W/Diff, Automatedon 10-0 -2024 Absolute Lymph 2.65 X10 3/uL Normal 0.83-4.51 [facility] Comment on above: Performed By: #### L 100.0100, L500.4050 #### [facility] [address] [place], [address] Absolute Neut 2.8 X10 3/uL Normal 2.0-7.7 [facility] Comment on above: Performed By: #### L 100.0100, L500.4050 #### [facility] [address] [place], [address] Basophils/100 WBC (Bld) 0.7 % Normal 0-1 [facility] Comment on above: Performed By: #### L 100.0100, L500.4050 #### [facility] [address] [place], [address] Eosinophils/100 WBC (Bld) 1.7 % Normal 0-5 [facility] Comment on above: Performed By: #### L 100.0100, L500.4050 #### [facility] [address] [place], [address] Erythrocyte distribution width (RBC) [Ratio] 12.7 % Normal 11.6-14.6 [facility] Comment on above: Performed By: #### L 100.0100, L500.4050 #### [facility] [address] [place], [address] Hematocrit (Bld) [Volume fraction] 41.5 % Normal 37-47 [facility] Comment on above: Performed By: #### L 100.0100, L500.4050 #### [facility] [address] [place], [address] Hemoglobin (Bld) [Mass/Vol] 13.7 g/dL Normal 12.0-15.0 [facility] Comment on above: Performed By: #### L 100.0100, L500.4050 #### [facility] [address] [place], [address] IG% 0.200 Normal 0.0-0.9 [facility] Comment on above: Result Comment: IG% - Immature Granulocytes (promyelocytes, myelocytes and metamyelocytes) > 1% indicates that a LEFT SHIFT is Present. Performed By: #### L 100.0100, L500.4050 #### [facility] [address] [place], [address] Lymphocytes/100 WBC (Bld) 44.5 % High 19-41 [facility] Comment on above: Performed By: #### L 100.0100, L500.4050 #### [facility] [address] [place], [address] MCH (RBC) [Entitic mass] 30.1 pg Normal 27.0-32.0 [facility] Comment on above: Performed By: #### L 100.0100, L500.4050 #### [facility] [address] [place], [address] MCHC (RBC) [Mass/Vol] 33.0 g/dL Normal 32-36 [facility] Comment on above: Performed By: #### L 100.0100, L500.4050 #### [facility] [address] [place], [address] MCV (RBC) [Entitic vol] 91.2 fL Normal 81-99 [facility] Comment on above: Performed By: #### L 100.0100, L500.4050 #### [facility] [address] [place], [address] Monocytes/100 WBC (Bld) 6.7 % Normal 0-10 [facility] Comment on above: Performed By: #### L 100.0100, L500.4050 #### [facility] [address] [place], [address] Neutrophils/100 WBC (Bld) 46.2 % Low 47-70 [facility] Comment on above: Performed By: #### L 100.0100, L500.4050 #### [facility] [address] [place], [address] Nucleated RBC (Bld) [#/Vol] 0 10*3/uL Normal 0-5 [facility] Comment on above: Performed By: #### L 100.0100, L500.4050 #### [facility] [address] [place], [address] Platelet mean volume (Bld) [Entitic vol] 10.3 fL Normal 6.2-12.0 [facility] Comment on above: Performed By: #### L 100.0100, L500.4050 #### [facility] [address] [place], [address] Platelets (Bld) [#/Vol] 164 10*3/uL Normal 150-450 [facility] Comment on above: Performed By: #### L 100.0100, L500.4050 #### [facility] [address] [place], [address] RBC (Bld) [#/Vol] 4.55 10*6/uL Normal 4.2-5.4 [facility] Comment on above: Performed By: #### L 100.0100, L500.4050 #### [facility] [address] [place], [address] RDW SD 41.9 fl Normal 35.1-43.9 [facility] Comment on above: Performed By: #### L 100.0100, L500.4050 #### [facility] [address] [place], [address] WBC (Bld) [#/Vol] 6.0 10*3/uL Normal 4.4-11.0 [facility] Comment on above: Performed By: #### L 100.0100, L500.4050 #### [facility] [address] [place], [address] Comprehensive Metabolic Prof ilon 07-31-2025 Albumin [Mass/Vol] 4.0 g/dL Normal 3.4-4.8 [facility] Comment on above: Performed By: #### L 100.0100, L500.4050 #### [facility] [address] [place], [address] Albumin/Globulin [Mass ratio] 1.6 {ratio} Normal 0.9-2.4 [facility] Comment on above: Performed By: #### L 100.0100, L500.4050 #### [facility] [address] [place], [address] ALK PHOS 82 U/L Normal 35-104 [facility] Comment on above: Performed By: #### L 100.0100, L500.4050 #### [facility] [address] [place], [address] ALT [Catalytic activity/Vol] 18 U/L Normal <=34 [facility] Comment on above: Performed By: #### L 100.0100, L500.4050 #### [facility] [address] [place], [address] AST [Catalytic activity/Vol] 21 U/L Normal <=31 [facility] Comment on above: Performed By: #### L 100.0100, L500.4050 #### [facility] [address] [place], [address] Bilirubin [Mass/Vol] 0.20 mg/dL Normal 0.00-1.30 [facility] Comment on above: Performed By: #### L 100.0100, L500.4050 #### [facility] [address] [place], [address] BUN/CRE 17.4 RATIO Normal 10-20 [facility] Comment on above: Performed By: #### L 100.0100, L500.4050 #### [facility] [address] [place], [address] Calcium [Mass/Vol] 9.1 mg/dL Normal 7.6-11.0 [facility] Comment on above: Performed By: #### L 100.0100, L500.4050 #### [facility] [address] [place], [address] Chloride [Moles/Vol] 101 mmol/L Normal 98-108 [facility] Comment on above: Performed By: #### L 100.0100, L500.4050 #### [facility] [address] [place], [address] CO2 [Moles/Vol] 27.3 mmol/L Normal 21.0-32.0 [facility] Comment on above: Performed By: #### L 100.0100, L500.4050 #### [facility] [address] [place], [address] Creatinine [Mass/Vol] 0.77 mg/dL Normal 0.70-1.20 [facility] Comment on above: Performed By: #### L 100.0100, L500.4050 #### [facility] [address] [place], [address] ECRCL 91.94 ml/min Normal 50-250 [facility] Comment on above: Performed By: #### L 100.0100, L500.4050 #### [facility] [address] [place], [address] GAP 12 Normal 5-15 [facility] Comment on above: Performed By: #### L 100.0100, L500.4050 #### [facility] [address] [place], [address] GFR/1.73 sq M.predicted among non-blacks MDRD (S/P/Bld) [Vol rate/Area] 87 mL/min/{1.73_m2} Normal >60 [facility] Comment on above: Result Comment: mL/m in/1.73m2 CKD-EPI Creatinine Equation (2020) Performed By: #### L 100.0100, L500.4050 #### [facility] [address] [place], [address] Globulin (S) [Mass/Vol] 2.5 g/dL Normal 2.2-4.2 [facility] Comment on above: Performed By: #### L 100.0100, L500.4050 #### [facility] [address] [place], [address] Glucose [Mass/Vol] 207 mg/dL High 70-99 [facility] Comment on above: Performed By: #### L 100.0100, L500.4050 #### [facility] [address] [place], [address] Potassium [Moles/Vol] 3.8 mmol/L Normal 3.3-5.1 [facility] Comment on above: Performed By: #### L 100.0100, L500.4050 #### [facility] [address] [place], [address] Sodium [Moles/Vol] 140 mmol/L Normal 133-145 [facility] Comment on above: Performed By: #### L 100.0100, L500.4050 #### [facility] [address] [place], [address] T PROT 6.6 g/dL Normal 5.9-8.4 [facility] Comment on above: Performed By: #### L 100.0100, L500.4050 #### [facility] [address] [place], [address] Urea nitrogen [Mass/Vol] 13 mg/dL Normal 4-19 [facility] Comment on above: Performed By: #### L 100.0100, L500.4050 #### [facility] [address] [place], [address] Emergency Department Summary on 07-31-2025 Emergency Department Summary [facility] Medical Records Department [address] [place] [address] Emergency Department Summary 07/31/25 MR#: [id number] Acct: [id number] Name: IRMA STEWART Rep #: [id number] : 1960 65 From: Jose Khoury MD PCP: Dr. Monik Hackett MD Status:REG ER Location: ED HPI History of Present Illness Chief Complaint: Dizziness Informant: patient and EMS Narrative Narrative: Patient is a 65-year-old female with a history of severe osteoarthritis and sciatica presenting at 0330 with worsening dizziness and imbalance. - This AM, felt extremely shaky, hot, dizzy, and nauseous; required assistance to walk to the bathroom due to more severe vertigo than she has had in past several weeks. - Denies emesis, but reports nausea. - Reports severe dizziness and imbalance, exacerbated over the past 3-4 weeks since a fall. - Initially began experiencing dizziness 4 months ago - Fall occurred while attempting to adjust AC and close windows; resulted in hitting arm against a wall and falling on both knees. - Since the fall, reports worsening dizziness and imbalance, describing a sensation of "vertigo and a mix of my body wanting to shut down." - Reports tingling in legs and tinnitus. - Experiencing severe neck pain radiating to the left shoulder blade since the fall. - Reports chronic sciatica pain since 2012, with recent exacerbation; has not had an MRI. - Reports inability to control bladder for the past 6 months, worsening over the last 4 months; wears Depends. - Diagnosed with severe osteoarthritis; advised to consider left knee replacement. - Reports variable blood pressure readings, with recent measurements of 155/80 and 117/80; usual BP is 118/70. - Underwent Maninder maneuver 2 days ago, which provided some relief. Saw Dr. Branch and diagnosed w/ BPPV. - Scheduled to see a new psychiatrist in July for medication management. [facility] Medical History Fibromyalgia Osteoarthritis DDD (degenerative disc disease) FHx: total knee replacement Overactive bladder Diabetes High cholesterol Hypertension Bipolar 1 disorder Depression Anxiety Panic disorder Home Medications ???Medication ???Instructions ???Recorded ???Last Taken ???Type oxybutynin chloride 10 mg 10 mg PO QHS 11/27/13 09/29/23 His tory tablet,extended release 24 hr (Ditropan XL) quetiapine 200 mg tablet (Seroquel) 150 mg PO QHS 11/27/13 09/29/23 History divalproex 500 mg tablet,delayed 500 mg PO BID 12/04/13 09/30/23 Hi story release (Depakote) metoprolol tartrate 50 mg tablet 50 mg PO BID 12/04/13 09/30/23 His tory nystatin 100,000 unit/gram topical 1 applic topical TID ##1 4 09/30/23 Rx powder ([facility]) Oxybutynin Chloride [Ditropan Xl] 5 mg PO DAILY 10/22/14 09/30/23 H istory cholecalciferol (vitamin D3) 25 2,000 unit PO DAILY 10/22/1409/30 History mcg (1,000 unit) tablet (Vitamin D3) duloxetine 60 mg capsule,delayed 60 mg PO BID 10/22/14 09/30/23 His tory release omeprazole 20 mg capsule,delayed 20 mg PO DAILY 10/22/14 09/30/23 H istory release pregabalin 50 mg capsule 100 mg PO BID 10/22/14 09/30/23 Hi story atorvastatin 40 mg tablet 40 mg PO QHS 07/27/20 09/29/23 His tory buspirone 5 mg tablet 10 mg PO TID 07/27/20 09/30/23 His tory furosemide 20 mg tablet 20 mg PO DAILY 07/27/20 09/30/23 H istory insulin glargine 100 unit/mL (3 30 - 40 unit SQ QHS 07/27/2009/30 History mL) subcutaneous pen sertraline 100 mg tablet 200 mg PO DAILY 07/27/20 09/30/23 History hydroxyzine pamoate 50 mg capsule 50 mg PO TID PRN anxiety #15 caps 09/30/23 Unknown Rx Allergy/AdvReac Type Severity Reaction Status Date / Time acetaminophen (From Tylenol) Allergy Swelling Verified 09/30/23 18:56 amoxicillin (Amoxicillin) Allergy Rash Verified 09/30/23 18:56 haloperidol (From Haldol) Allergy Other Verified 09/30/23 18:56 haloperidol lactate (From Allergy Other Verified 09/30/23 18:56 Haldol) lithium ([place]) Allergy Other Verified 09/30/23 18:56 naproxen sodium (From Aleve) Allergy Swelling Verified 09/30/23 18:56 Surgical History H/O: hysterectomy History of rectal surgery History of tonsillectomy Social History Smoking Status: Never smoker ROS ROS ED Constitutional Constitutional ED: Denies chills or fever(s) Eyes Eyes: Denies change in vision or diplopia ENT ENT ED: Reports as per HPI, tinnitus and vertigo; Denies headache(s), hearing loss, rhinorrhea or sore throat Cardiovascular Cardiovascular: Denies chest pain or palpitations Respiratory/Chest Respiratory/Chest: Denies cough or dyspnea Gastrointestinal Gastro (more content not included)... Normal [facility] Urinalysis, Completeon 07-31 EPI,SQUAMOUS 0-5 SEEN Normal - [facility] Comment on above: Order Comment: RITA CTOR TO SPECIFY Performed By: #### L 400.0001 #### [facility] [address] [place], [place], [id number] BACTERIA 0 SEEN Normal None Seen [facility] Comment on above: Order Comment: RITA CTOR TO SPECIFY Performed By: #### L 400.0001 #### [facility] [address] [place], [address] Mucus Ql (Urine sed) 0 SEEN Normal [facility] Comment on above: Order Comment: RITA CTOR TO SPECIFY Performed By: #### L 400.0001 #### [facility] [address] [place], [address] RBC 0 SEEN Normal 0-5 [facility] Comment on above: Order Comment: RITA CTOR TO SPECIFY Performed By: #### L 400.0001 #### [facility] [address] [place], [address] WBC 0 SEEN Normal 0-5 [facility] Comment on above: Order Comment: RITA CTOR TO SPECIFY Performed By: #### L 400.0001 #### [facility] [address] [place], [place], [address] CNPNon 07-30-2025 CNPN Nurse Triage (INTMWS ) IRMA STEWART ([id number]) 1960 F Date Time Provider Department 07/30/25 MONIK HACKETT During your visit today, we recorded the following information about you: Rhona Lai RN 07/30/2025 3:38 PM Signed Reason for [...] Additional Information on file. Protocols Used Neurologic [facility]-Ibnvn-FG Allergies As of Date: 07/30/2025 Noted Allergy Reaction BETADINE (POVIDONE-IODINE) 03/13/2007 16 - Unknown GLIMEPIRIDE 08/01/2020 5 - Intolerance Comments: Diarrhea HALDOL (HALOPERIDOL) 08/01/2020 14 - Other: See Comments Comments: Headache/hallucinations LITHIUM 08/01/2020 14 - Other: See Comments Comments: Hallucinations METFORMIN 08/01/2020 6 - Diarrhea NEURONTIN (GABAPENTIN) 08/01/2020 5 - Intolerance Comments: "felt poorly" PENICILLINS 03/13/2007 16 - Unknown Comments: Okay [...] a day. (more content not included)... Normal [facility] Urinalysis complete panel (U )on 07-29-2025 Bacteria LM.HPF (Urine sed) [#/Area] Negative Normal Negative [facility] Comment on above: Order Comment: Speci men Type: BLOOD SPECIMEN Ordering Facility: [facility] Address: [address] [place] [address] Performed By: #### 1 989-3 #### [facility] CLIA [id number] [address] [place] [address] [place] Bilirubin Ql (U) Negative Normal Negative [facility] Comment on above: Order Comment: Speci men Type: BLOOD SPECIMEN Ordering Facility: [facility] Address: [address] [place] [address] Performed By: #### 1 989-3 #### [facility] CLIA [id number] [address] [place] [address] [place] Clarity (Unsp spec) Clear Normal Clear [facility] Comment on above: Order Comment: Speci men Type: BLOOD SPECIMEN Ordering Facility: [facility] Address: [address] [place] [address] Performed By: #### 1 989-3 #### [facility] CLIA [id number] [address] [place] [address] [place] Color (U) Yellow Normal Yellow [facility] Comment on above: Order Comment: Speci men Type: BLOOD SPECIMEN Ordering Facility: [facility] Address: [address] [place] [address] Performed By: #### 1 989-3 #### [facility] CLIA [id number] [address] [place] [address] [place] Epithelial cells LM.HPF (Urine sed) [#/Area] None Seen Normal [facility] Comment on above: Order Comment: Speci men Type: BLOOD SPECIMEN Ordering Facility: [facility] Address: [address] [place] [address] Performed By: #### 1 989-3 #### [facility] CLIA [id number] [address] [place] [address] [place] Glucose Test strip (U) [Mass/Vol] Negative Normal Negative [facility] Comment on above: Order Comment: Speci men Type: BLOOD SPECIMEN Ordering Facility: [facility] Address: [address] [place] [address] Performed By: #### 1 989-3 #### [facility] CLIA [id number] [address] [place] [address] [place] Hemoglobin Ql (U) Negative Normal Negative [facility] Comment on above: Order Comment: Speci men Type: BLOOD SPECIMEN Ordering Facility: [facility] Address: [address] [place] [address] Performed By: #### 1 989-3 #### [facility] CLIA [id number] [address] [place] [address] [place] Hyaline casts (Urine sed) [#/Area] 0 /[LPF] Normal 0 /LPF [facility] Comment on above: Order Comment: Speci men Type: BLOOD SPECIMEN Ordering Facility: [facility] Address: [address] [place] [address] Performed By: #### 1 989-3 #### [facility] CLIA [id number] [address] [place] [address] [place] Ketones Ql (U) Negative Normal Negative [facility] Comment on above: Order Comment: Speci men Type: BLOOD SPECIMEN Ordering Facility: [facility] Address: [address] [place] [address] Performed By: #### 1 989-3 #### [facility] CLIA [id number] [address] [place] [address] [place] Leukocyte esterase Test strip Ql (U) Negative Normal Negative [facility] Comment on above: Order Comment: Speci men Type: BLOOD SPECIMEN Ordering Facility: [facility] Address: [address] [place] [address] Performed By: #### 1 989-3 #### [facility] CLIA [id number] [address] [place] [address] [place] Nitrite Ql (U) Negative Normal Negative [facility] Comment on above: Order Comment: Speci men Type: BLOOD SPECIMEN Ordering Facility: [facility] Address: [address] [place] [address] Performed By: #### 1 989-3 #### [facility] CLIA [id number] [address] [place] [address] [place] pH (U) 6.5 [pH] Normal 5.0-8.0 [facility] Comment on above: Order Comment: Speci men Type: BLOOD SPECIMEN Ordering Facility: [facility] Address: [address] [place] [address] Performed By: #### 1 989-3 #### [facility] CLIA [id number] [address] [place] [address] [place] Protein (U) [Mass/Vol] Negative Normal Negative [facility] Comment on above: Order Comment: Speci men Type: BLOOD SPECIMEN Ordering Facility: [facility] Address: [address] [place] [address] Performed By: #### 1 989-3 #### [facility] CLIA [id number] [address] [place] [address] [place] RBC LM.HPF (Urine sed) [#/Area] 0-2 /HPF Normal 0-2 /HPF [facility] Comment on above: Order Comment: Speci men Type: BLOOD SPECIMEN Ordering Facility: [facility] Address: [address] [place] [address] Performed By: #### 1 989-3 #### [facility] CLIA [id number] [address] [place] [address] [place] Specific gravity (U) [Rel density] 1.015 Normal 1.005-1.030 [facility] Comment on above: Order Comment: Speci men Type: BLOOD SPECIMEN Ordering Facility: [facility] Address: [address] [place] [address] Performed By: #### 1 989-3 #### [facility] CLIA [id number] [address] [place] [address] [place] Urobilinogen Ql (U) 0.2 EU/dL Normal 0.2-1.0 EU/dL [facility] Comment on above: Order Comment: Speci men Type: BLOOD SPECIMEN Ordering Facility: [facility] Address: [address] [place] [address] Performed By: #### 1 989-3 #### [facility] CLIA [id number] [address] [place] [address] [place] WBC LM.HPF (Urine sed) [#/Area] 0-5 /HPF Normal 0-5 /HPF [facility] Comment on above: Order Comment: Speci men Type: BLOOD SPECIMEN Ordering Facility: [facility] Address: [address] [place] [address] Performed By: #### 1 989-3 #### [facility] CLIA [id number] [address] [place] [address] [place] CNOVon 07-20-2025 CNOV Office Visit (INTMWS ) IRMA STEWART ([id number]) 1960 F Date Time Provider Department 07/20/25 [...] 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 We discussed [...] in 2009. She describes the fall as "hard" and notes that the left knee took [...] with the right knee being loaded with osteoarthritis." She used to receive Synvisc injections in [...] fighting depre (more content not included)... Normal [facility] Ferritin SerPl-mCncon 2024 Ferritin [Mass/Vol] 247.0 ng/mL High 14.7-205.1 [facility] Comment on above: Order Comment: Speci men Type: BLOOD SPECIMENOrdering Facility: [facility] Address: [address] [place] [address] Performed By: #### 5 0190-8, 2276-4 ####[facility] [id number] [place] [address] [place] Iron and Iron binding capaci ty panelon 07-20-2025 Iron [Mass/Vol] 70 ug/dL Normal 41-186 [facility] Comment on above: Order Comment: Speci men Type: BLOOD SPECIMENOrdering Facility: [facility] Address: [address] [place] [address] Performed By: #### 5 0190-8, 2276-4 ####[facility] [id number] [address] [place] Iron binding capacity [Mass/Vol] 247 ug/dL Normal 232-386 [facility] Comment on above: Order Comment: Speci men Type: BLOOD SPECIMENOrdering Facility: [facility] Address: [address] [place] [address] Performed By: #### 5 0190-8, 6-4 ####[facility] [id number] [place] [address] [place] Iron/TIBC [Molar ratio] 28.3 % Normal 15.0-57.0 [facility] Comment on above: Order Comment: Speci men Type: BLOOD SPECIMENOrdering Facility: [facility] Address: [address] [place] [address] Performed By: #### 5 0190-8, 6-4 ####[facility] [id number] [place] [id number] [place] XR KNEE 4V [...] Right TKA is noted. IMPRESSION: Advanced osteoarthrosis Reed Repairer: JADON Transcribe Date/Time: Jul 24 2025 9:37A Dictated by : ANDREW GARCÍA MD This examination was interpreted and the report reviewed and electronically signed by: ANDREW GARCÍA MD on Jul 24 2025 9:38AM EST [id number] Normal [facility] ALBUMIN/CREATININE RATIO, UR INEon 04-17-2025 Albumin DL <= 20 mg/L (U) [Mass/Vol] mg/dL Normal [facility] Comment on above: Order Comment: Speci men Type: URINE SPECIMENOrdering Facility: [facility] Address: [address] [place] [address] Performed By: #### U ACR ####[facility] [id number] [place] [address] [place] Albumin/Creatinine (U) [Mass ratio] Normal [facility] Comment on above: Order Comment: Corky jiménez Type: URINE SPECIMENOrdering Facility: [facility] Address: [address] [place] [address] Result Comment: Not calculated Adult Male and Female Nephrotic Criteria: <30 mg/g is considered normal to mildly increased 30-300 mg/g is considered moderately increased >300 mg/g is considered severely increased KDIGO. (2013). KDIGO 2012 Clinical Practice Guideline for the Evaluation and Management of Chronic Kidney Disease. Official Journal of the International Society of Nephrology, 3(1), 1-150. Performed By: #### U ACR ####[facility] [id number] [place] [address] [place] Creatinine (U) [Mass/Vol] 38.8 mg/dL Normal 20.0-300.0 [facility] Comment on above: Order Comment: Speci men Type: URINE SPECIMENOrdering Facility: [facility] Address: [address] [place] [address] Performed By: #### U ACR ####[facility] [id number] [place] [address] [place] Urinalysis complete panel (U )on 04-17-2025 Bacteria LM.HPF (Urine sed) [#/Area] Negative Normal Negative [facility] Comment on above: Order Comment: Speci men Type: URINE SPECIMEN Ordering Facility: [facility] Address: [address] [place] [address] Performed By: #### 2 4356-8 #### [facility] CLIA [id number] [address] [place] [address] [place] Bilirubin Ql (U) Negative Normal Negative [facility] Comment on above: Order Comment: Speci men Type: URINE SPECIMEN Ordering Facility: [facility] Address: [address] [place] [address] Performed By: #### 2 4356-8 #### [facility] CLIA [id number] [address] [place] [address] [place] Clarity (Unsp spec) Clear Normal Clear [facility] Comment on above: Order Comment: Speci men Type: URINE SPECIMEN Ordering Facility: [facility] Address: [address] [place] [address] Performed By: #### 2 4356-8 #### [facility] CLIA [id number] [address] [place] [address] [place] Color (U) Yellow Normal Yellow [facility] Comment on above: Order Comment: Speci men Type: URINE SPECIMEN Ordering Facility: [facility] Address: [address] [place] [address] Performed By: #### 2 4356-8 #### [facility] CLIA [id number] [address] [place] [address] [place] Epithelial cells LM.HPF (Urine sed) [#/Area] None Seen Normal [facility] Comment on above: Order Comment: Speci men Type: URINE SPECIMEN Ordering Facility: [facility] Address: [address] [place] [address] Performed By: #### 2 4356-8 #### [facility] CLIA [id number] [address] [place] [address] [place] Glucose Test strip (U) [Mass/Vol] Negative Normal Negative [facility] Comment on above: Order Comment: Speci men Type: URINE SPECIMEN Ordering Facility: [facility] Address: [address] [place] [address] Performed By: #### 2 4356-8 #### [facility] CLIA [id number] [address] [place] [address] [place] Hemoglobin Ql (U) Negative Normal Negative [facility] Comment on above: Order Comment: Speci men Type: URINE SPECIMEN Ordering Facility: [facility] Address: [address] [place] [address] Performed By: #### 2 4356-8 #### [facility] CLIA [id number] [address] [place] [address] [place] Hyaline casts (Urine sed) [#/Area] 0 /[LPF] Normal 0 /LPF [facility] Comment on above: Order Comment: Speci men Type: URINE SPECIMEN Ordering Facility: [facility] Address: [address] [place] [address] Performed By: #### 2 4356-8 #### [facility] CLIA [id number] [address] [place] [address] [place] Ketones Ql (U) Negative Normal Negative [facility] Comment on above: Order Comment: Speci men Type: URINE SPECIMEN Ordering Facility: [facility] Address: [address] [place] [address] Performed By: #### 2 4356-8 #### [facility] CLIA [id number] [address] [place] [address] [place] Leukocyte esterase Test strip Ql (U) Negative Normal Negative [facility] Comment on above: Order Comment: Speci men Type: URINE SPECIMEN Ordering Facility: [facility] Address: [address] [place] [address] Performed By: #### 2 4356-8 #### [facility] CLIA [id number] [address] [place] [address] [place] Nitrite Ql (U) Negative Normal Negative [facility] Comment on above: Order Comment: Speci men Type: URINE SPECIMEN Ordering Facility: [facility] Address: [address] [place] [address] Performed By: #### 2 4356-8 #### [facility] CLIA [id number] [address] [place] [address] [place] pH (U) 7.0 [pH] Normal <8.5 [facility] Comment on above: Order Comment: Speci men Type: URINE SPECIMEN Ordering Facility: [facility] Address: [address] [place] [address] Performed By: #### 2 4356-8 #### [facility] CLIA [id number] [address] [place] [address] [place] Protein (U) [Mass/Vol] Negative Normal Negative [facility] Comment on above: Order Comment: Speci men Type: URINE SPECIMEN Ordering Facility: [facility] Address: [address] [place] [address] Performed By: #### 2 4356-8 #### [facility] CLIA [id number] [address] [place] [address] [place] RBC LM.HPF (Urine sed) [#/Area] 0-2 /HPF Normal 0-2 /HPF [facility] Comment on above: Order Comment: Speci men Type: URINE SPECIMEN Ordering Facility: [facility] Address: [address] [place] [address] Performed By: #### 2 4356-8 #### [facility] CLIA [id number] [address] [place] [address] [place] Specific gravity (U) [Rel density] 1.010 Normal 1.005-1.030 [facility] Comment on above: Order Comment: Speci men Type: URINE SPECIMEN Ordering Facility: [facility] Address: [address] [place] [address] Performed By: #### 2 4356-8 #### [facility] CLIA [id number] [address] [place] [address] [place] Urobilinogen Ql (U) 0.2 EU/dL Normal 0.2-1.0 EU/dL [facility] Comment on above: Order Comment: Speci men Type: URINE SPECIMEN Ordering Facility: [facility] Address: [address] [place] [address] Performed By: #### 2 4356-8 #### [facility] [place] [id number] [address] [place] [address] [place] WBC LM.HPF (Urine sed) [#/Area] 0-5 /HPF Normal 0-5 /HPF [facility] Comment on above: Order Comment: Speci men Type: URINE SPECIMEN Ordering Facility: [facility] Address: [address] [place] [address] Performed By: #### 2 4356-8 #### [facility] CLIA [id number] [address] [place] [address] [place] CBC W Auto Differential pane l (Bld)on 04-16-2025 Basophils (Bld) [#/Vol] 0.06 10*3/uL [facility] Basophils/100 WBC (Bld) 0.9 % [facility] Differential cell count method Nom (Bld) Auto [facility] Eosinophils (Bld) [#/Vol] 0.13 10*3/uL [facility] Eosinophils/100 WBC (Bld) 2 % [facility] Erythrocyte distribution width (RBC) [Ratio] 13 % 11.5 - 15.0 % [facility] Hematocrit (Bld) [Volume fraction] 42.3 % 36.0 - 46.0 % [facility] Hemoglobin (Bld) [Mass/Vol] 13.9 g/dL 11.5 - 15.5 g/dL [facility] Immature granulocytes (Bld) [#/Vol] [facility] Immature granulocytes/100 WBC (Bld) 0.2 % [facility] Lymphocytes (Bld) [#/Vol] 2.71 10*3/uL [facility] Lymphocytes/100 WBC (Bld) 41.7 % [facility] MCH (RBC) [Entitic mass] 30.2 pg 26.0 - 34.[address] [facility] MCHC (RBC) [Mass/Vol] 32.9 g/dL 30.5 - 36.0 g/dL [facility] MCV (RBC) [Entitic vol] 91.8 fL 80.0 - 100.[address] [facility] Monocytes (Bld) [#/Vol] 0.5 10*3/uL [facility] Monocytes/100 WBC (Bld) 7.7 % [facility] Neutrophils (Bld) [#/Vol] 3.09 10*3/uL [facility] Neutrophils/100 WBC (Bld) 47.5 % [facility] Nucleated RBC (Bld) [#/Vol] [facility] Nucleated RBC/100 WBC (Bld) [Ratio] 0 % /[address] [facility] Platelet mean volume (Bld) [Entitic vol] 10.2 fL 9.0 - 12.[address] [facility] Platelets (Bld) [#/Vol] 172 10*3/uL [facility] RBC (Bld) [#/Vol] 4.61 10*6/uL 3.90 - 5.2 0 m/uL [facility] WBC (Bld) [#/Vol] 6.5 10*3/uL [facility] Basophils (Bld) [#/Vol] 0.06 10*3/uL Normal <0.11 [facility] Comment on above: Order Comment: Speci men Type: BLOOD SPECIMEN Ordering Facility: [facility] Address: [address] [place] [address] Performed By: #### 1 989-3 #### [facility] CLIA [id number] [address] [place] [address] [place] Basophils/100 WBC (Bld) 0.9 % Normal [facility] Comment on above: Order Comment: Speci men Type: BLOOD SPECIMEN Ordering Facility: [facility] Address: [address] [place] [address] Performed By: #### 1 989-3 #### [facility] CLIA [id number] [address] [place] [address] [place] Differential cell count method Nom (Bld) Auto Normal [facility] Comment on above: Order Comment: Speci men Type: BLOOD SPECIMEN Ordering Facility: [facility] Address: [address] [place] [address] Performed By: #### 1 989-3 #### [facility] CLIA [id number] [address] [place] [address] [place] Eosinophils (Bld) [#/Vol] 0.13 10*3/uL Normal <0.46 [facility] Comment on above: Order Comment: Speci men Type: BLOOD SPECIMEN Ordering Facility: [facility] Address: [address] [place] [address] Performed By: #### 1 989-3 #### [facility] CLIA [id number] [address] [place] [address] [place] Eosinophils/100 WBC (Bld) 2.0 % Normal [facility] Comment on above: Order Comment: Speci men Type: BLOOD SPECIMEN Ordering Facility: [facility] Address: [address] [place] [address] Performed By: #### 1 989-3 #### [facility] CLIA [id number] [address] [place] [address] [place] Erythrocyte distribution width (RBC) [Ratio] 13.0 % Normal 11.5-15.0 [facility] Comment on above: Order Comment: Speci men Type: BLOOD SPECIMEN Ordering Facility: [facility] Address: [address] [place] [address] Performed By: #### 1 989-3 #### [facility] CLIA [id number] [address] [place] [address] [place] Hematocrit (Bld) [Volume fraction] 42.3 % Normal 36.0-46.0 [facility] Comment on above: Order Comment: Speci men Type: BLOOD SPECIMEN Ordering Facility: [facility] Address: [address] [place] [address] Performed By: #### 1 989-3 #### [facility] CLIA [id number] [address] [place] [address] [place] Hemoglobin (Bld) [Mass/Vol] 13.9 g/dL Normal 11.5-15.5 [facility] Comment on above: Order Comment: Speci men Type: BLOOD SPECIMEN Ordering Facility: [facility] Address: [address] [place] [address] Performed By: #### 1 989-3 #### [facility] CLIA [id number] [address] [place] [address] [place] Immature granulocytes (Bld) [#/Vol] 10*3/uL Normal <0.10 [facility] Comment on above: Order Comment: Speci men Type: BLOOD SPECIMEN Ordering Facility: [facility] Address: [address] [place] [address] Performed By: #### 1 989-3 #### [facility] CLIA [id number] [address] [place] [address] [place] Immature granulocytes/100 WBC (Bld) 0.2 % Normal [facility] Comment on above: Order Comment: Speci men Type: BLOOD SPECIMEN Ordering Facility: [facility] Address: [address] [place] [address] Performed By: #### 1 989-3 #### [facility] CLIA [id number] [address] [place] [address] [place] Lymphocytes (Bld) [#/Vol] 2.71 10*3/uL Normal 1.00-4.00 [facility] Comment on above: Order Comment: Speci men Type: BLOOD SPECIMEN Ordering Facility: [facility] Address: [address] [place] [address] Performed By: #### 1 989-3 #### [facility] CLIA [id number] [address] [place] [address] [place] Lymphocytes/100 WBC (Bld) 41.7 % Normal [facility] Comment on above: Order Comment: Speci men Type: BLOOD SPECIMEN Ordering Facility: [facility] Address: [address] [place] [address] Performed By: #### 1 989-3 #### [facility] CLIA [id number] [address] [place] [address] [place] MCH (RBC) [Entitic mass] 30.2 pg Normal 26.0-34.0 [facility] Comment on above: Order Comment: Speci men Type: BLOOD SPECIMEN Ordering Facility: [facility] Address: [address] [place] [address] Performed By: #### 1 989-3 #### [facility] CLIA [id number] [address] [place] [address] [place] MCHC (RBC) [Mass/Vol] 32.9 g/dL Normal 30.5-36.0 [facility] Comment on above: Order Comment: Speci men Type: BLOOD SPECIMEN Ordering Facility: [facility] Address: [address] [place] [address] Performed By: #### 1 989-3 #### [facility] CLIA [id number] [address] [id number] [address] [place] MCV (RBC) [Entitic vol] 91.8 fL Normal 80.0-100.0 [facility] Comment on above: Order Comment: Speci men Type: BLOOD SPECIMEN Ordering Facility: [facility] Address: [address] [place] [address] Performed By: #### 1 989-3 #### [facility] CLIA [id number] [address] [place] [address] [place] Monocytes (Bld) [#/Vol] 0.50 10*3/uL Normal <0.87 [facility] Comment on above: Order Comment: Speci men Type: BLOOD SPECIMEN Ordering Facility: [facility] Address: [address] [place] [address] Performed By: #### 1 989-3 #### [facility] CLIA [id number] [address] [place] [address] [place] Monocytes/100 WBC (Bld) 7.7 % Normal [facility] Comment on above: Order Comment: Speci men Type: BLOOD SPECIMEN Ordering Facility: [facility] Address: [address] [place] [address] Performed By: #### 1 989-3 #### [facility] CLIA [id number] [address] [place] [address] [place] Neutrophils (Bld) [#/Vol] 3.09 10*3/uL Normal 1.45-7.50 [facility] Comment on above: Order Comment: Speci men Type: BLOOD SPECIMEN Ordering Facility: [facility] Address: [address] [place] [address] Performed By: #### 1 989-3 #### [facility] CLIA [id number] [address] [place] [address] [place] Neutrophils/100 WBC (Bld) 47.5 % Normal [facility] Comment on above: Order Comment: Speci men Type: BLOOD SPECIMEN Ordering Facility: [facility] Address: [address] [place] [address] Performed By: #### 1 989-3 #### [facility] CLIA [id number] [address] [place] [address] [place] Nucleated RBC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 [id number] [place] [address] [place] Lymphocytes (Bld) [#/Vol] 1.95 10*3/uL Normal 1.00-4.00 [facility] Comment on above: Order Comment: Speci men Type: BLOOD SPECIMENOrdering Facility: [facility] Address: [address] [place] [address] Performed By: #### 5 7021-8 ####[facility] LABCLIA [id number] [place] [address] [place] Lymphocytes/100 WBC (Bld) 36.6 % Normal [facility] Comment on above: Order Comment: Speci men Type: BLOOD SPECIMENOrdering Facility: [facility] Address: [address] [place] [address] Performed By: #### 5 7021-8 ####[facility] LABCLIA [id number] [place] [address] [place] MCH (RBC) [Entitic mass] 30.9 pg Normal 26.0-34.0 [facility] Comment on above: Order Comment: Speci men Type: BLOOD SPECIMENOrdering Facility: [facility] Address: [address] [place] [address] Performed By: #### 5 7021-8 ####[facility] LABIA [id number] [place] [address] [place] MCHC (RBC) [Mass/Vol] 33.1 g/dL Normal 30.5-36.0 [facility] Comment on above: Order Comment: Speci men Type: BLOOD SPECIMENOrdering Facility: [facility] Address: [address] [place] [address] Performed By: #### 5 7021-8 ####[facility] LABIA [id number] [place] [address] [place] MCV (RBC) [Entitic vol] 93.3 fL Normal 80.0-100.0 [facility] Comment on above: Order Comment: Speci men Type: BLOOD SPECIMENOrdering Facility: [facility] Address: [address] [place] [address] Performed By: #### 5 7021-8 ####[facility] LABCLIA [id number] [place] [address] [place] Monocytes (Bld) [#/Vol] 0.40 10*3/uL Normal <0.87 [facility] Comment on above: Order Comment: Speci men Type: BLOOD SPECIMENOrdering Facility: [facility] Address: [address] [place] [address] Performed By: #### 5 7021-8 ####[facility] LABCLIA [id number] [place] [address] [place] Monocytes/100 WBC (Bld) 7.5 % Normal [facility] Comment on above: Order Comment: Speci men Type: BLOOD SPECIMENOrdering Facility: [facility] Address: [address] [place] [address] Performed By: #### 5 7021-8 ####[facility] LABCLIA [id number] [place] [address] [place] Neutrophils (Bld) [#/Vol] 2.88 10*3/uL Normal 1.45-7.50 [facility] Comment on above: Order Comment: Speci men Type: BLOOD SPECIMENOrdering Facility: [facility] Address: [address] [place] [address] Performed By: #### 5 7021-8 ####[facility] LABIA [id number] [place] [address] [place] Neutrophils/100 WBC (Bld) 54.0 % Normal [facility] Comment on above: Order Comment: Speci men Type: BLOOD SPECIMENOrdering Facility: [facility] Address: [address] [place] [address] Performed By: #### 5 7021-8 ####[facility] LABIA [id number] [place] [address] [place] Nucleated RBC (Bld) [#/Vol] 10*3/uL Normal <0.01 [facility] Comment on above: Order Comment: Speci men Type: BLOOD SPECIMENOrdering Facility: [facility] Address: [address] [place] [address] Performed By: #### 5 7021-8 ####[facility] LABCLIA [id number] [place] [address] [place] Nucleated RBC/100 WBC (Bld) [Ratio] 0.0 /100 WBC Normal [facility] Comment on above: Order Comment: Speci men Type: BLOOD SPECIMENOrdering Facility: [facility] Address: [address] [place] [address] Performed By: #### 5 7021-8 ####[facility] LABIA [id number] [place] [address] [place] Platelet mean volume (Bld) [Entitic vol] 11.0 fL Normal 9.0-12.7 [facility] Comment on above: Order Comment: Speci men Type: BLOOD SPECIMENOrdering Facility: [facility] Address: [address] [place] [address] Performed By: #### 5 7021-8 ####[facility] LABIA [id number] [place] [address] [place] Platelets (Bld) [#/Vol] 163 10*3/uL Normal 150-400 [facility] Comment on above: Order Comment: Speci men Type: BLOOD SPECIMENOrdering Facility: [facility] Address: [address] [place] [address] Performed By: #### 5 7021-8 ####[facility] LABIA [id number] [place] [address] [place] RBC (Bld) [#/Vol] 4.60 10*6/uL Normal 3.90-5.20 [facility] Comment on above: Order Comment: Speci men Type: BLOOD SPECIMENOrdering Facility: [facility] Address: [address] [place] [address] Performed By: #### 5 7021-8 ####[facility] LABIA [id number] [place] [address] [place] WBC (Bld) [#/Vol] 5.33 10*3/uL Normal 3.70-11.00 [facility] Comment on above: Order Comment: Speci men Type: BLOOD SPECIMENOrdering Facility: [facility] Address: [address] [place] [address] Performed By: #### 5 7021-8 ####[facility] LABJARVIS [id number] [address] [place] CNOVon 11-10-2024 CNOV Office Visit (INTMWS ) IRMA STEWART ([id number]) 1960 F Date Time Provider Department 11/10/24 3:20 PM JAIME SPENCER INTMWS During your visit today, we recorded the following information about you: Pulse Blood pressure Weight 75/minute 124/80 118 kg Jaime Spencer, JENN.ACADEMIC SPECIALIST 11/10/2024 4:38 PM Signed SUBJECTIVE: Diabetic Foot [...] Diarrhea Haldol [Haloperidol] Other: See Comments Headache/hallucinations [place] Other: See Comments Hallucinations Metformin Diarrhea Neurontin [...] DM - Controlled E11.9 Insulin: Yes Insulin [place], Disposable, (BD ULTRAFINE III MINI PEN) 31 gauge x 3/16" 1 Each two times a day. oxybutynin [...] cream Ap (more content not included)... Normal [facility] Comprehensive metabolic 2000 panelon 11-10-2024 Albumin [Mass/Vol] 4.3 g/dL Normal 3.9-4.9 [facility] Comment on above: Order Comment: Speci men Type: BLOOD SPECIMEN Ordering Facility: [facility] Address: [address] [place] [address] Performed By: #### 1 989-3 #### [facility] CLIA [id number] [address] [place] [address] [place] [address] [place] ALP [Catalytic activity/Vol] 80 U/L Normal 34-123 [facility] Comment on above: Order Comment: Speci men Type: BLOOD SPECIMEN Ordering Facility: [facility] Address: [address] [place] [id number] Performed By: #### 1 989-3 #### [facility] CLIA [id number] [address] [place] [address] [place] ALT [Catalytic activity/Vol] 11 U/L Normal 7-38 [facility] Comment on above: Order Comment: Speci men Type: BLOOD SPECIMEN Ordering Facility: [facility] Address: [address] [place] [address] Performed By: #### 1 989-3 #### [facility] CLIA [id number] [address] [place] [address] [place] Anion gap [Moles/Vol] 13 mmol/L Normal 8-15 [facility] Comment on above: Order Comment: Speci men Type: BLOOD SPECIMEN Ordering Facility[facility] Address: [address] [place] [address] Performed By: #### 1 989-3 #### [facility] CLIA [id number] [address] [place] [address] [place] AST [Catalytic activity/Vol] 13 U/L Normal 13-35 [facility] Comment on above: Order Comment: Speci men Type: BLOOD SPECIMEN Ordering Facility: [facility] Address: [address] [place] [address] Performed By: #### 1 989-3 #### [facility] CLIA [id number] [address] [place] [address] [place] Bilirubin [Mass/Vol] 0.2 mg/dL Normal 0.2-1.3 [facility] Comment on above: Order Comment: Speci men Type: BLOOD SPECIMEN Ordering Facility: [facility] Address: [address] [place] [address] Performed By: #### 1 989-3 #### [facility] CLIA [id number] [address] [id number] [address] [place] Calcium [Mass/Vol] 9.4 mg/dL Normal 8.5-10.2 [facility] Comment on above: Order Comment: Speci men Type: BLOOD SPECIMEN Ordering Facility: [facility] Address: [address] [place] [address] Performed By: #### 1 989-3 #### [facility] CLIA [id number] [address] [place] [address] [place] Chloride [Moles/Vol] 103 mmol/L Normal 98-107 [facility] Comment on above: Order Comment: Speci men Type: BLOOD SPECIMEN Ordering Facility: [facility] Address: [address] [place] [address] Performed By: #### 1 989-3 #### [facility] CLIA [id number] [address] [place] [address] [place] CO2 [Moles/Vol] 25 mmol/L Normal 22-30 [facility] Comment on above: Order Comment: Speci men Type: BLOOD SPECIMEN Ordering Facility: [facility] Address: [address] [place] [address] Performed By: #### 1 989-3 #### [facility] CLIA [id number] [address] [place] [address] [place] Creatinine [Mass/Vol] 0.64 mg/dL Normal 0.58-0.96 [facility] Comment on above: Order Comment: Speci men Type: BLOOD SPECIMEN Ordering Facility: [facility] Address: [address] [place] [address] Performed By: #### 1 989-3 #### [facility] CLIA [id number] [address] [place] [address] [place] Creatinine and Glomerular filtration rate.predicted panel (S/P/Bld) 99 mL/min/1.73m??? Normal >=60 [facility] Comment on above: Order Comment: Speci men Type: BLOOD SPECIMEN Ordering Facility: [facility] Address: [address] [place] [address] Result Comment: Arlette mated Glomerular Filtration Rate [...] accurately reflect actual GFR. Performed By: #### 1 989-3 #### [facility] CLIA [id number] [address] [place] [address] [place] Glucose [Mass/Vol] 163 mg/dL High 74-99 [facility] Comment on above: Order Comment: Corky jiménez Type: BLOOD SPECIMEN Ordering Facility: [facility] Address: [address] [place] [address] Result Comment: The [place] Diabetes Association (ADA) provides guidance for cutoff [...] Standards of Medical Care in Diabetes 2016, [place] Diabetes Association. Diabetes Care. 2016.39(Suppl 1). Performed By: #### 1 989-3 #### [facility] CLIA [id number] [address] [place] [address] [place] Potassium [Moles/Vol] 4.3 mmol/L Normal 3.7-5.1 [facility] Comment on above: Order Comment: Corky jiménez Type: BLOOD SPECIMEN Ordering Facility: [facility] Address: [address] [place] [address] Performed By: #### 1 989-3 #### [facility] CLIA [id number] [address] [place] [address] [place] Protein [Mass/Vol] 6.5 g/dL Normal 6.3-8.0 [facility] Comment on above: Order Comment: Speci men Type: BLOOD SPECIMEN Ordering Facility: [facility] Address: [address] [place] [address] Performed By: #### 1 989-3 #### [facility] CLIA [id number] [address] [place] [address] [place] Sodium [Moles/Vol] 141 mmol/L Normal 136-144 [facility] Comment on above: Order Comment: Speci men Type: BLOOD SPECIMEN Ordering Facility: [facility] Address: [address] [place] [address] Performed By: #### 1 989-3 #### [facility] CLIA [id number] [address] [place] [address] [place] Urea nitrogen [Mass/Vol] 12 mg/dL Normal 7-21 [facility] Comment on above: Order Comment: Speci men Type: BLOOD SPECIMEN Ordering Facility: [facility] Address: [address] [place] [address] Performed By: #### 1 989-3 #### [facility] CLIA [id number] [address] [place] [address] [place] Ferritin SerPl-mCncon 2024 Ferritin [Mass/Vol] 191.0 ng/mL Normal 14.7-205.1 [facility] Comment on above: Order Comment: Speci men Type: BLOOD SPECIMENOrdering Facility: [facility] Address: [address] [place] [address] Performed By: #### 5 0190-8, 99579-8, 3016-3, 2276-4 ####[facility] [id number] [place] [address] [place] HbA1c (Bld)on 11-10-2024 Average glucose Estimated from glycated hemoglobin (Bld) [Mass/Vol] 169 mg/dL Normal [facility] Comment on above: Order Comment: Corky jiménez Type: BLOOD SPECIMENOrdering Facility: [facility] Address: [address] [place] [address] Result Comment: eAG: (Estimated average glucose) is a calculated value from HgbA1c and is commercial sales representative of the average blood glucose level in the last 2-3 month period. Performed By: #### 5 5454-3 ####[facility] [id number] [place] [address] [place] HbA1c (Bld) [Mass fraction] 7.5 % High 4.3-5.6 [facility] Comment on above: Order Comment: Corky jiménez Type: BLOOD SPECIMENOrdering Facility: [facility] Address: [address] [place] [address] Result Comment: Amer [place] Diabetes Association guidelines indicate that patients with HgbA1c in the range 5.7-6.4% are at increased risk for development of diabetes, and intervention by lifestyle modification may be beneficial. HgbA1c greater or equal to 6.5% is considered diagnostic of diabetes. Performed By: #### 5 5454-3 ####[facility] [id number] [place] [address] [place] Iron and Iron binding capaci ty panelon 11-10-2024 Iron [Mass/Vol] 69 ug/dL Normal 41-186 [facility] Comment on above: Order Comment: Corky jiménez Type: BLOOD SPECIMEN Ordering Facility: [facility] Address: [address] [place] [address] Performed By: #### 1 989-3 #### [facility] CLIA [id number] [address] [place] [address] [place] Iron binding capacity [Mass/Vol] 276 ug/dL Normal 232-386 [facility] Comment on above: Order Comment: Corky jiménez Type: BLOOD SPECIMEN Ordering Facility: [facility] Address: [address] [place] [address] Performed By: #### 1 989-3 #### [facility] CLIA [id number] [address] [place] [address] [place] Iron/TIBC [Molar ratio] 25.0 % Normal 15.0-57.0 [facility] Comment on above: Order Comment: Speci men Type: BLOOD SPECIMEN Ordering Facility: [facility] Address: [address] [place] [address] Performed By: #### 1 989-3 #### [facility] CLIA [id number] [address] [place] [address] [place] Lipid 1996 panelon 5 Cholesterol [Mass/Vol] 190 mg/dL Normal <200 [facility] Comment on above: Order Comment: Speci men Type: BLOOD SPECIMEN Ordering Facility: [facility] Address: [address] [place] [address] Result Comment: <200 mg/dL, Desirable 200-239 mg/dL, Borderline high >239 mg/dL, High Performed By: #### 1 989-3 #### [facility] CLIA [id number] [address] [place] [address] [place] Cholesterol in HDL [Mass/Vol] 57 mg/dL Normal >39 [facility] Comment on above: Order Comment: Speci men Type: BLOOD SPECIMEN Ordering Facility: [facility] Address: [address] [place] [address] Result Comment: 40-5 9 mg/dL, Acceptable >59 mg/dL, High: Negative risk factor for coronary heart disease <40 mg/dL, Low: Positive risk factor for coronary heart disease Performed By: #### 1 989-3 #### [facility] CLIA [id number] [address] [place] [address] [place] Cholesterol in LDL [Mass/Vol] 94 mg/dL Normal <100 [facility] Comment on above: Order Comment: Speci men Type: BLOOD SPECIMEN Ordering Facility: [facility] Address: [address] [place] [address] Result Comment: <100 mg/dL, Optimal 100-129 mg/dL, Near optimal/above optimal 130-159 mg/dL, Borderline high 160-189 mg/dL, High >189 mg/dL, Very high Secondary prevention optimal LDL Cholesterol levels are recommended to be < 70 mg/dL Performed By: #### 1 989-3 #### [facility] CLIA [id number] [address] [place], [place] [address] [address] [place] Cholesterol in LDL/Cholesterol in HDL [Mass ratio] 1.65 {ratio} Normal <2.54 [facility] Comment on above: Order Comment: Speci men Type: BLOOD SPECIMEN Ordering Facility: [facility] Address: [address] [place] [address] Result Comment: Refe rence: 1. National Cholesterol Education Program ATP III Guideline At-A-Glance Quick Desk Reference: National Heart, Lung, and Blood [place]. National Institutes of Health. 2001: NIH Publication No. 01-3305. 2. An International Atherosclerosis Society position paper: global recommendations for the management of dyslipidemia: executive summary, Atherosclerosis. 2014: 232(2):410-413. Performed By: #### 1 989-3 #### [facility] CLIA [id number] [address] [place] [address] [place] Cholesterol in VLDL [Mass/Vol] 39 mg/dL High <30 [facility] Comment on above: Order Comment: Speci men Type: BLOOD SPECIMEN Ordering Facility: [facility] Address: [address] [place] [address] Performed By: #### 1 989-3 #### [facility] CLIA [id number] [address] [place] [address] [place] Cholesterol non HDL [Mass/Vol] 133 mg/dL High <130 [facility] Comment on above: Order Comment: Theodorai men Type: BLOOD SPECIMEN Ordering Facility: [facility] Address: [address] [place] [address] Result Comment: <130 mg/dL, Optimal 130-159 mg/dL, Near optimal/above optimal 160-189 mg/dL, Borderline high 190-219 mg/dL, High >219 mg/dL, Very high Secondary prevention optimal non HDL Cholesterol levels are recommended to be <100 mg/dL Performed By: #### 1 989-3 #### [facility] CLIA [id number] [address] [place] [address] [place] Cholesterol.total/Ch olesterol in HDL [Mass ratio] 3.33 {ratio} Normal <5.10 [facility] Comment on above: Order Comment: Speci men Type: BLOOD SPECIMEN Ordering Facility: [facility] Address: [address] [place] [address] Performed By: #### 1 989-3 #### [facility] CLIA [id number] [address] [place] [address] [place] FASTING TIME 12 hrs Normal [facility] Comment on above: Order Comment: Speci men Type: BLOOD SPECIMEN Ordering Facility: [facility] Address: [address] [place] [address] Performed By: #### 1 989-3 #### [facility] CLIA [id number] [address] [place] [address] [place] Triglyceride [Mass/Vol] 196 mg/dL High <150 [facility] Comment on above: Order Comment: Speci men Type: BLOOD SPECIMEN Ordering Facility: [facility] Address: [address] [place] [address] Result Comment: <150 mg/dL, Normal 150-199 mg/dL, Borderline high 200-499 mg/dL, High >499 mg/dL, Very high Performed By: #### 1 989-3 #### [facility] CLIA [id number] [address] [place] [address] [place] TSH SerPl-aCncon 11-10-2024 TSH Qn 2.800 m[IU]/L Normal 0.270-4.200 [facility] Comment on above: Order Comment: Speci men Type: BLOOD SPECIMENOrdering Facility: [facility] Address: [address] [place] [address] Performed By: #### 5 0190-8, 12800-0, 3016-3, 2276-4 ####[facility] [id number] [place] [address] [place] Vit B12 [facility] 14-2 025 Cobalamin (Vitamin B12) [Mass/Vol] 1857 pg/mL High 232-1245 [facility] Comment on above: Order Comment: Speci men Type: BLOOD SPECIMEN Ordering Facility: [facility] Address: [address] [place] [address] Performed By: #### 1 989-3 #### [facility] CLIA [id number] [address] [place] [address] [place] NITRIC OXIDE, EXHALEDon 07-[address] [facility] CBC W Auto Differential pane l (Bld)on 02-27-2024 Basophils (Bld) [#/Vol] 0.03 10*3/uL [facility] Basophils/100 WBC (Bld) 0.6 % [facility] Differential cell count method Nom (Bld) Auto [facility] Eosinophils (Bld) [#/Vol] 0.07 10*3/uL [facility] Eosinophils/100 WBC (Bld) 1.4 % [facility] Erythrocyte distribution width (RBC) [Ratio] 12.3 % 11.5 - 15.0 % [facility] Hematocrit (Bld) [Volume fraction] 42.2 % 36.0 - 46.0 % [facility] Hemoglobin (Bld) [Mass/Vol] 13.7 g/dL 11.5 - 15.5 g/dL [facility] Immature granulocytes (Bld) [#/Vol] [facility] Immature granulocytes/100 WBC (Bld) 0.2 % [facility] Lymphocytes (Bld) [#/Vol] 1.84 10*3/uL [facility] Lymphocytes/100 WBC (Bld) 37.2 % [facility] MCH (RBC) [Entitic mass] 31.1 pg 26.0 - 34.[address] [facility] MCHC (RBC) [Mass/Vol] 32.5 g/dL 30.5 - 36.0 g/dL [facility] MCV (RBC) [Entitic vol] 95.9 fL 80.0 - 100.[address] [facility] Monocytes (Bld) [#/Vol] 0.36 10*3/uL NINF [facility] Monocytes/100 WBC (Bld) 7.3 % [facility] Neutrophils (Bld) [#/Vol] 2.64 10*3/uL [facility] Neutrophils/100 WBC (Bld) 53.3 % [facility] Nucleated RBC (Bld) [#/Vol] NINF [facility] Nucleated RBC/100 WBC (Bld) [Ratio] 0.0 % /[address] [facility] Platelet mean volume (Bld) [Entitic vol] 10.4 fL 9.0 - 12.[address] [facility] Platelets (Bld) [#/Vol] 163 10*3/uL [facility] RBC (Bld) [#/Vol] 4.40 10*6/uL 3.90 - 5.2 0 m/uL [facility] WBC (Bld) [#/Vol] 4.95 10*3/uL [facility] Comprehensive metabolic 2000 panelon 02-27-2024 Albumin [Mass/Vol] 4.1 g/dL 3.9 - 4.9 g/dL [facility] ALP [Catalytic activity/Vol] 75 U/L 34 - 123 U/L [facility] ALT [Catalytic activity/Vol] 14 U/L 7 - 38 U/L [facility] Anion gap [Moles/Vol] 11 mmol/L 9 - 18 mmol/L [facility] AST [Catalytic activity/Vol] 18 U/L 13 - 35 U/L [facility] Bilirubin [Mass/Vol] 0.4 mg/dL 0.2 - 1 .3 mg/dL [facility] Calcium [Mass/Vol] 9.0 mg/dL 8.5 - 10. 2 mg/dL [facility] Chloride [Moles/Vol] 100 mmol/L 97 - 10 5 mmol/L [facility] CO2 [Moles/Vol] 29 mmol/L 22 - 30 mmol/L [facility] Creatinine [Mass/Vol] 0.78 mg/dL 0.58 - 0.96 mg/dL [facility] GFR/1.73 sq M.predicted among non-blacks MDRD (S/P/Bld) [Vol rate/Area] 86 mL/min/{1.73_m2} - PINF [facility] Comment on above: Estimated Glomerular Filtration Rate [...] 173 mg/dL High 74 - 99 mg/dL [facility] Comment on above: The [place] Diabete s Association (ADA) provides guidance for [...] Standards of Medical Care in Diabetes 2016, [place] Diabetes Association. Diabetes Care. 2016.39(Suppl 1). Interpretation and review of laboratory results Abnormal [facility] Potassium [Moles/Vol] 4.5 mmol/L 3.7 - 5.1 mmol/L [facility] Protein [Mass/Vol] 6.6 g/dL 6.3 - 8.0 g/dL [facility] Sodium [Moles/Vol] 140 mmol/L 136 - 144 mmol/L [facility] Urea nitrogen [Mass/Vol] 15 mg/dL 7 - 21 mg/dL [facility] THYROID STIMULATING HORMONEo n 02-27-2024 TSH Qn 1.660 m[IU]/L [facility] TSH Qnon 02-27-2024 Interpretation and review of laboratory results Normal [facility] OXIMETRY WITH AMBULATIONon 0 12-06-[address] [facility] XR Finger - right AP and Lat eral and obliqueon 11-25-2023 IMPRESSION: The osseous structures are intact. There are no marginal erosions. Mild narrowing of the first CMC joint with small osteophytes. No other significant abnormality. 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 TECHNIQUE: XR DIGIT 3V FRONTAL/LAT/OBL RT Laterality: RIGHT Number of different views (projections): 3 M: XB_1 COMPARISON: None RESULT/ IMPRESSION IMPRESSION: The osseous structures are intact. There are no marginal erosions. Mild narrowing of the first CMC joint with small osteophytes. No other significant abnormality. Reed Repairer: JADON Transcribe Date/Time: Nov 25 2023 7:13P Dictated by : BRANDON BECERRA MD This examination was interpreted and the report reviewed and electronically signed by: BRANDON BECERRA MD on Nov 25 2023 7:14PM EST [facility] Radiology Study observation (narrative) [facility] XR Finger - right AP and Lat eral and obliqueOrdered By: Ccf Provider on 11-25-[address] [facility] XR Chest PA and Lateralon IMPRESSION: No acute radiographic abnormality. Reed Repairer: JADON Transcribe Date/Time: Nov 04 2023 3:01P Dictated by : JORGE SCHWARTZ MD This examination was interpreted and the report reviewed and electronically signed by: JORGE SCHWARTZ MD on Nov 04 2023 3:02PM [facility] DIVISION OF RADIOLOGY * * *Final [...] soft tissues: Unremarkable. DIVISION OF RADIOLOGY Provider, [facility] - 11/04/2023 * * *Final Report* [...] Unremarkable. IMPRESSION IMPRESSION: No acute radiographic abnormality. Reed Repairer: JADON Transcribe Date/Time: Nov 04 2023 3:01P Dictated by : JORGE SCHWARTZ MD This examination was interpreted and the report reviewed and electronically signed by: JORGE SCHWARTZ MD on Nov 04 2023 3:02PM [facility] Radiology Study observation (narrative) [facility] XR Chest PA and LateralOrder ed By: Ccf Provider on 11-04-[address] [facility] CBC W Auto Differential pane l (Bld)on 07-12-2023 Basophils (Bld) [#/Vol] 0.03 10*3/uL <0.11 k/uL [facility] Basophils/100 WBC (Bld) 0.7 % [facility] Differential cell count method Nom (Bld) Auto [facility] Eosinophils (Bld) [#/Vol] 0.09 10*3/uL <0.46 k/uL [facility] Eosinophils/100 WBC (Bld) 2.2 % [facility] Erythrocyte distribution width (RBC) [Ratio] 12.5 % 11.5 - 15.0 % [facility] Hematocrit (Bld) [Volume fraction] 42.8 % 36.0 - 46.0 % [facility] Hemoglobin (Bld) [Mass/Vol] 13.9 g/dL 11.5 - 15.5 g/dL [facility] Immature granulocytes (Bld) [#/Vol] <0.10 k/uL [facility] Immature granulocytes/100 WBC (Bld) 0.2 % [facility] Lymphocytes (Bld) [#/Vol] 1.52 10*3/uL 1.00 - 4.00 k/uL [facility] Lymphocytes/100 WBC (Bld) 36.4 % [facility] MCH (RBC) [Entitic mass] 31.3 pg 26.0 - 34.[address] [facility] MCHC (RBC) [Mass/Vol] 32.5 g/dL 30.5 - 36.0 g/dL [facility] MCV (RBC) [Entitic vol] 96.4 fL 80.0 - 100.[address] [facility] Monocytes (Bld) [#/Vol] 0.28 10*3/uL <0.87 k/uL [facility] Monocytes/100 WBC (Bld) 6.7 % [facility] Neutrophils (Bld) [#/Vol] 2.25 10*3/uL 1.45 - 7.50 k/uL [facility] Neutrophils/100 WBC (Bld) 53.8 % [facility] Nucleated RBC (Bld) [#/Vol] <0.01 k/uL [facility] Nucleated RBC/100 WBC (Bld) [Ratio] 0.0 /[address] [facility] Platelet mean volume (Bld) [Entitic vol] 11.3 fL 9.0 - 12.[address] [facility] Platelets (Bld) [#/Vol] 144 10*3/uL Low 150 - 400 k/uL [facility] RBC (Bld) [#/Vol] 4.44 10*6/uL 3.90 - 5.2 0 m/uL [facility] WBC (Bld) [#/Vol] 4.18 10*3/uL 3.70 - 11. 00 k/uL [facility] ESR Westergren method (Bld) [Velocity]on 07-12-2023 ESR (Bld) [Velocity] 10 mm/h 0 - 20 mm/hr [facility] HEMOGLOBIN A1C (POC)on 07-12 HbA1c (Bld) [Mass fraction] 8.4 % Abnormal 4.2 - 5.6 % [facility] UA DIP, URINE (POC)on 2022 BILIRUBIN UA (POCT) Small Abnormal Negative [facility] CLARITY UA (POCT) Clear [facility] COLOR UA (POCT) Yellow [facility] GLUCOSE UA (POCT) >=1000 Abnormal Negative mg/dL [facility] Hemoglobin Ql (U) Negative Negative [facility] KETONE UA (POCT) 80 mg/dL Abnormal Negative mg/dL [facility] LEUKOCYTES UA (POCT) Negative Negative [facility] NITRITE UA (POCT) Negative Negative [facility] PH UA (POCT) 5.5 4.5 - 8.[address] [facility] Protein Ql (U) Trace Abnormal Negative mg/dL [facility] SPECIFIC GRAVITY UA (POCT) 1.025 1.005 - 1.[address] [facility] UROBILINOGEN UA (POCT) 0.2 E.U./dL Normal E.U./dL [facility] XR KNEE GENERAL 4V AP BOTH/P A BOTH/LAT/MERC BILATERALon 03-26-[address] [facility] XR Knee - bilateral 4 Viewso n 03-26-2023 IMPRESSION: 1. No acute osseous abnormality right knee and left knee. 2. Right knee frontal arthroplasty. 3. Tricompartmental left knee osteoarthritis 4. Suboptimal joint space centering frontal weightbearing imaging Reed Repairer: JADON Transcribe Date/Time: Mar 26 2023 7:15P Dictated by : LATISHA ISAAC MD This examination was interpreted and the report reviewed and electronically signed by: LATISHA ISAAC MD on Mar 26 2023 7:23PM [facility] DIVISION OF RADIOLOGY * * *Final [...] but otherwise maintained. DIVISION OF RADIOLOGY [facility] * * *Final Report* * [...] Suboptimal joint space centering frontal weightbearing imaging Reed Repairer: [facility] Transcribe Date/Time: Mar 26 2023 7:15P Dictated by : LATISHA ISAAC MD This examination was interpreted and the report reviewed and electronically signed by: LATISHA ISAAC MD on Mar 26 2023 7:23PM EST [facility] Radiology Study observation (narrative) [facility] XR Knee - bilateral 4 ViewsO rdered By: [facility] Provider on 03-26-[address] [facility] XR Lumbar spine 3 Viewson IMPRESSION: Lumbar spine degenerative changes as described above. Reed Repairer: [facility] Transcribe Date/Time: Feb 26 2023 9:54A Dictated by : JORGE SCHWARTZ MD This examination was interpreted and the report reviewed and electronically signed by: JORGE SCHWARTZ MD on Feb 26 2023 9:56AM [facility] DIVISION OF RADIOLOGY * * *Final [...] spine are presented. FINDINGS: There are five ktu-hlh-[id number] lumbar vertebrae. No fracture or subluxations are noted. There appears be L2-3 mild disc space narrowing. There is mild osteophyte formation, with facet arthrosis. Kissing spine noted on lateral view. DIVISION OF RADIOLOGY Provider, [facility] - 02/26/2023 * * *Final Report* [...] spine are presented. FINDINGS: There are five gne-tbe-bcfnmko lumbar vertebrae. No fracture or subluxations are noted. There appears be L2-3 mild disc space narrowing. There is mild osteophyte formation, with facet arthrosis. Kissing spine noted on lateral view. IMPRESSION IMPRESSION: Lumbar spine degenerative changes as described above. [facility] Transcribe Date/Time: Feb 26 2023 9:54A Dictated by : JORGE SCHWARTZ MD This examination was interpreted and the report reviewed and electronically signed by: JORGE SCHWARTZ MD on Feb 26 2023 9:56AM EST [facility] XR Lumbar spine 3 ViewsOrder ed By: [facility]cf Provider on 02-26-[address] [facility] XR Lumbar spine 3 Viewson Radiology Study observation (narrative) [facility] XR FOOT GENERAL 3V AP/LAT/OB L LEFTon 10-09-[address] [facility] .Auto Diffon 08-31-2020 Ammonia (P) [Mass/Vol] 0.50 10 3/mcL Normal 0.15-1.00 [facility] [place] Comment on above: Performed By: #### C BC, ADIFF, ANEU, CMP, GFR #### [address] [address] Basophils (Bld) [#/Vol] 0.10 10 3/mcL Normal 0.00-0.19 [facility] [place] Comment on above: Performed By: #### C BC, ADIFF, ANEU, CMP, GFR #### [id number] [place], [place] [address] Basophils/100 WBC (Bld) 0.9 % Normal 0.0-2.5 [facility] [place] Comment on above: Performed By: #### C BC, ADIFF, ANEU, CMP, GFR #### [address] [address] Eosinophils (Bld) [#/Vol] 0.10 10 3/mcL Normal 0.00-0.40 [facility] ([place]) Comment on above: Performed By: #### C BC, ADIFF, ANEU, CMP, GFR #### [address] [address] Eosinophils/100 WBC (Bld) 0.9 % Normal 0.0-7.0 [facility] [place] Comment on above: Performed By: #### C BC, ADIFF, ANEU, CMP, GFR #### [address] [address] Lymphocytes (Bld) [#/Vol] 2.70 10 3/mcL Normal 0.77-3.85 [facility] ([place]) Comment on above: Performed By: #### C BC, ADIFF, ANEU, CMP, GFR #### [address] [address] Lymphocytes/100 WBC (Bld) 36.7 % Normal 10.0-50.0 [facility] [place] Comment on above: Performed By: #### C BC, ADIFF, ANEU, CMP, GFR #### [address] [address] Monocytes/100 WBC (Bld) 7.2 % Normal 1.7-13.0 [facility] [place] Comment on above: Performed By: #### C BC, ADIFF, ANEU, CMP, GFR #### [address] [address] Neutrophils/100 WBC (Bld) 54.3 % Normal 37.0-80.0 [facility] [place] Comment on above: Performed By: #### C BC, ADIFF, ANEU, CMP, GFR #### [address] [address] .GFRon 11-04-2020 GFR 146 ml/min/1.73sqm Normal [facility] [place] Comment on above: Result Comment: GFR Population [...] C BC, ADIFF, ANEU, CMP, GFR #### [address] [address] GFR Non- 121 ml/min/1.73sqm Normal [facility] [place] Comment on above: Result Comment: GFR Population [...] C BC, ADIFF, ANEU, CMP, GFR #### [address] [address] .NEUABSon 08-31-2020 Neutrophils (Bld) [#/Vol] 4.00 10 3/mcL Normal 2.85-6.16 [facility] [place] Comment on above: Performed By: #### C BC, ADIFF, ANEU, CMP, GFR #### [address] [address] CBCon 08-31-2020 Erythrocyte distribution width (RBC) [Ratio] 15.2 % High 11.5-14.5 [facility] [place] Comment on above: Performed By: #### C BC, ADIFF, ANEU, CMP, GFR #### [place] [id number] Hematocrit (Bld) [Volume fraction] 40.7 % Normal 37.0-47.0 [facility] [place] Comment on above: Performed By: #### C BC, ADIFF, ANEU, CMP, GFR #### [id number] Hemoglobin (Bld) [Mass/Vol] 13.4 G/dL Normal 12.0-16.0 [facility] [place] Comment on above: Performed By: #### C BC, ADIFF, ANEU, CMP, GFR #### [id number] MCH (RBC) [Entitic mass] 31.6 pg High 27.0-31.2 [facility] [place] Comment on above: Performed By: #### C BC, ADIFF, ANEU, CMP, GFR #### [address] [address] MCHC (RBC) [Mass/Vol] 33.0 G/dL Normal 33.0-37.0 [facility] [place] Comment on above: Performed By: #### C BC, ADIFF, ANEU, CMP, GFR #### [address] [address] MCV (RBC) [Entitic vol] 95.9 fL High 80.0-94.0 [facility] [place] Comment on above: Performed By: #### C BC, ADIFF, ANEU, CMP, GFR #### [place] [id number] Platelet mean volume (Bld) [Entitic vol] 8.8 fL Normal 7.4-10.4 [facility] [place] Comment on above: Performed By: #### C BC, ADIFF, ANEU, CMP, GFR #### [address] [address] Platelets (Bld) [#/Vol] 259 10 3/mcL Normal 130-400 [facility] [place] Comment on above: Performed By: #### C BC, ADIFF, ANEU, CMP, GFR #### [address] [address] RBC (Bld) [#/Vol] 4.25 10 6/mcL Normal 4.20-5.40 [facility] ([place]) Comment on above: Performed By: #### C BC, ADIFF, ANEU, CMP, GFR #### [address] [address] WBC (Bld) [#/Vol] 7.40 10 3/mcL Normal 4.60-10.80 [facility] ([place]) Comment on above: Performed By: #### C BC, ADIFF, ANEU, CMP, GFR #### [address] [address] CMPon 08-31-2020 Albumin [Mass/Vol] 3.1 G/dL Low 3.5-5.0 [facility] ([place]) Comment on above: Performed By: #### C BC, ADIFF, ANEU, CMP, GFR #### [address] [address] Albumin/Globulin [Mass ratio] 0.9 {ratio} Low 1.1-2.5 [facility] [place] Comment on above: Performed By: #### C BC, ADIFF, ANEU, CMP, GFR #### [address] [address] ALP [Catalytic activity/Vol] 51 U/L Normal 40-135 [facility] [place] Comment on above: Performed By: #### C BC, ADIFF, ANEU, CMP, GFR #### [address] [address] ALT [Catalytic activity/Vol] 15 U/L Normal 14-59 [facility] [place] Comment on above: Performed By: #### C BC, ADIFF, ANEU, CMP, GFR #### [address] [address] AST [Catalytic activity/Vol] 29 U/L Normal 10-40 [facility] [place] Comment on above: Performed By: #### C BC, ADIFF, ANEU, CMP, GFR #### [address] [address] Bili Total 0.4 mg/dL Normal 0.2-1.0 [facility] [place] Comment on above: Result Comment: Use of this assay is not recommended for patients undergoing treatment with eltrombopag due to the potential for falsely elevated results. Performed By: #### C BC, ADIFF, ANEU, CMP, GFR #### [address] [address] Calcium [Mass/Vol] 8.3 mg/dL Low 8.4-10.2 [facility] ([place]) Comment on above: Performed By: #### C BC, ADIFF, ANEU, CMP, GFR #### [address] [address] Chloride [Moles/Vol] 104 mmol/L Normal 98-107 [facility] ([place]) Comment on above: Performed By: #### C BC, ADIFF, ANEU, CMP, GFR #### [address] [address] CO2 [Moles/Vol] 31 mmol/L High 22-29 [facility] [place] Comment on above: Performed By: #### C BC, ADIFF, ANEU, CMP, GFR #### [address] [address] Creatinine [Mass/Vol] 0.52 mg/dL Low 0.55-1.02 [facility] [place] Comment on above: Performed By: #### C BC, ADIFF, ANEU, CMP, GFR #### [address] [address] Electrolyte Balance 5.0 mEq/L Normal [facility] ([place]) Comment on above: Performed By: #### C BC, ADIFF, ANEU, CMP, GFR #### [address] [address] Globulin (S) [Mass/Vol] 3.4 G/dL Normal [facility] ([place] Comment on above: Performed By: #### C BC, ADIFF, ANEU, CMP, GFR #### [address] [address] Glucose [Mass/Vol] 135 mg/dL High 70-105 [facility] ([place]) Comment on above: Performed By: #### C BC, ADIFF, ANEU, CMP, GFR #### [address] [address] Potassium [Moles/Vol] 5.0 mmol/L Normal 3.5-5.1 [facility] [place] Comment on above: Performed By: #### C BC, ADIFF, ANEU, CMP, GFR #### [address] [address] Protein [Mass/Vol] 6.5 G/dL Normal 6.4-8.2 [facility] ([place]) Comment on above: Performed By: #### C BC, ADIFF, ANEU, CMP, GFR #### [address] [address] Sodium [Moles/Vol] 140 mmol/L Normal 136-145 [facility] ([place]) Comment on above: Performed By: #### C BC, ADIFF, ANEU, CMP, GFR #### [address] [address] Urea nitrogen [Mass/Vol] 12 mg/dL Normal 7-18 [facility] [place] Comment on above: Performed By: #### C BC, ADIFF, ANEU, CMP, GFR #### [address] [address] Urea nitrogen/Creatinine [Mass ratio] 23 ratio Normal 7-27 [facility] [place] Comment on above: Performed By: #### C BC, ADIFF, ANEU, CMP, GFR #### [id number] [place], [place] [address] Vital Signs Date Time Vital Sign Value Performing Clinician Facility 08-17-2025 17:59-0400 Diastolic Blood Pressure Non-Invasive 62 mm[Hg] ASHLEY MARTIN MD [facility] 08-17-2025 17:59-0400 Heart rate 75 /min ASHLEY MARTIN MD [facility] 08-17-2025 17:59-0400 Systolic Blood Pressure Non-Invasive 126 mm[Hg] ASHLEY MARTIN MD [facility] 08-17-2025 17:21-0400 Body height 162.6 cm ASHLEY MARTIN MD [facility] 08-17-2025 17:21-0400 Body temperature 98.42 [degF] ASHLEY MARTIN MD [facility] 08-17-2025 17:21-0400 Body weight 114 kg ASHLEY MARTIN MD [facility] 08-17-2025 17:21-0400 Diastolic Blood Pressure Non-Invasive 73 mm[Hg] ASHLEY MARTIN MD [facility] 08-17-2025 17:21-0400 Heart rate 92 /min ASHLEY MARTIN MD [facility] 08-17-2025 17:21-0400 Respiratory rate 20 /min ASHLEY MARTIN MD [facility] 08-17-2025 17:21-0400 Systolic Blood Pressure Non-Invasive 144 mm[Hg] ASHLEY MARTIN MD [facility] 04-16-2025 10:04-0400 Body mass index (BMI) [Ratio] 44.29 kg/m2 Lala Older VETERANS' COORDINATOR.PORTFOLIO STRATEGIST Work Phone: [facility] 04-16-2025 10:04-0400 Body weight 117.03 kg Lala Older VETERANS' COORDINATOR.PORTFOLIO STRATEGIST Work Phone: [facility] 04-16-2025 10:04-0400 Diastolic blood pressure 80 mm[Hg] Lala Older VETERANS' COORDINATOR.PORTFOLIO STRATEGIST Work Phone: [facility] 04-16-2025 10:04-0400 Heart rate 76 /min Lala Older VETERANS' COORDINATOR.PORTFOLIO STRATEGIST Work Phone: [facility] 04-16-2025 10:04-0400 Respiratory rate 16 /min Lala Older VETERANS' COORDINATOR.PORTFOLIO STRATEGIST Work Phone: [facility] 04-16-2025 10:04-0400 SaO2% (BldA) [Mass fraction] 96 % Older VETERANS' COORDINATOR.PORTFOLIO STRATEGIST Work Phone: [facility] 04-16-2025 10:04-0400 Systolic blood pressure 144 mm[Hg] Lala Older VETERANS' COORDINATOR.PORTFOLIO STRATEGIST Work Phone: [facility] 11-10-2024 15:50-0500 Diastolic blood pressure 80 mm[Hg] Jaime Spencer VETERANS' COORDINATOR.ACADEMIC SPECIALIST Work Phone: [facility] 11-10-2024 15:50-0500 Systolic blood pressure 124 mm[Hg] Jaime Spencer VETERANS' COORDINATOR.ACADEMIC SPECIALIST Work Phone: [facility] 11-10-2024 15:49-0500 Body mass index (BMI) [Ratio] 44.65 kg/m2 Jaime Spencer VETERANS' COORDINATOR.ACADEMIC SPECIALIST Work Phone: [facility] 11-10-2024 15:49-0500 Body weight 118 kg Jaime Spencer VETERANS' COORDINATOR.ACADEMIC SPECIALIST Work Phone: [facility] 11-10-2024 15:49-0500 Heart rate 75 /min Jaime Spencer VETERANS' COORDINATOR.ACADEMIC SPECIALIST Work Phone: [facility] 05-06-2024 17:04-0400 Body mass index (BMI) [Ratio] 44.97 kg/m2 Lala Older VETERANS' COORDINATOR.PORTFOLIO STRATEGIST Work Phone: [facility] 05-06-2024 17:04-0400 Body weight 118.84 kg Lala Older VETERANS' COORDINATOR.PORTFOLIO STRATEGIST Work Phone: [facility] 05-06-2024 17:04-0400 Diastolic blood pressure 80 mm[Hg] Lala Older VETERANS' COORDINATOR.PORTFOLIO STRATEGIST Work Phone: [facility] 05-06-2024 17:04-0400 Heart rate 80 /min Lala Older VETERANS' COORDINATOR.PORTFOLIO STRATEGIST Work Phone: [facility] 05-06-2024 17:04-0400 Respiratory rate 16 /min Lala Older VETERANS' COORDINATOR.PORTFOLIO STRATEGIST Work Phone: [facility] 05-06-2024 17:04-0400 SaO2% (BldA) [Mass fraction] 93 % Lala Older VETERANS' COORDINATOR.PORTFOLIO STRATEGIST Work Phone: [facility] 05-06-2024 17:04-0400 Systolic blood pressure 122 mm[Hg] Lala Older VETERANS' COORDINATOR.PORTFOLIO STRATEGIST Work Phone: [facility] 04-29-2024 14:03-0400 Body mass index (BMI) [Ratio] 44.29 kg/m2 Pulm Wstr Work Phone: [facility] 04-29-2024 14:03-0400 Body weight 117.03 kg Pulm Wstr Work Phone: [facility] 04-29-2024 14:01-0400 Body mass index (BMI) [Ratio] 44.29 kg/m2 Monserrat Peng PA-C Work Phone: [facility] 04-29-2024 14:01-0400 Body weight 117.03 kg Monserrat Peng PA-C Work Phone: [facility] 04-29-2024 14:01-0400 Diastolic blood pressure 74 mm[Hg] Monserrat Peng PA-C Work Phone: [facility] 04-29-2024 14:01-0400 Heart rate 85 /min Monserrat Peng PA-C Work Phone: [facility] 04-29-2024 14:01-0400 Respiratory rate 14 /min Monserrat Fordeone PA-C Work Phone: [facility] 04-29-2024 14:01-0400 SaO2% (BldA) [Mass fraction] 92 % Monserrat Fordeone PA-C Work Phone: [facility] 04-29-2024 14:01-0400 Systolic blood pressure 122 mm[Hg] Monserrat Fordeone PA-C Work Phone: [facility] 02-27-2024 14:35-0400 Body mass index (BMI) [Ratio] 44.11 kg/m2 Jaime Spencer VETERANS' COORDINATOR.ACADEMIC SPECIALIST Work Phone: [facility] 02-27-2024 14:35-0400 Body weight 116.57 kg Jaime Spencer VETERANS' COORDINATOR.ACADEMIC SPECIALIST Work Phone: [facility] 02-27-2024 14:35-0400 Diastolic blood pressure 74 mm[Hg] Jaime Spencer VETERANS' COORDINATOR.ACADEMIC SPECIALIST Work Phone: [facility] 02-27-2024 14:35-0400 Heart rate 73 /min Jaime Spencer VETERANS' COORDINATOR.ACADEMIC SPECIALIST Work Phone: [facility] 02-27-2024 14:35-0400 Respiratory rate 16 /min Jaime Spencer VETERANS' COORDINATOR.ACADEMIC SPECIALIST Work Phone: [facility] 02-27-2024 14:35-0400 Systolic blood pressure 111 mm[Hg] Jaime Spencer VETERANS' COORDINATOR.ACADEMIC SPECIALIST Work Phone: [facility] 12-06-2023 14:50-0500 Body height 163.8 cm Pulm Wstr Work Phone: [facility] 12-06-2023 14:50-0500 Body weight 117.03 kg Pulm Wstr Work Phone: [facility] 12-06-2023 14:50-0500 Heart rate 76 /min Pulm Wstr Work Phone: [facility] 12-06-2023 14:50-0500 Respiratory rate 16 /min Pulm Wstr Work Phone: [facility] 12-06-2023 14:50-0500 SaO2% (BldA) [Mass fraction] 96 % Pulm Wstr Work Phone: [facility] 08-09-2023 14:00-0400 Body weight 113.85 kg Jaime Spencer VETERANS' COORDINATOR.ACADEMIC SPECIALIST Work Phone: [facility] 08-09-2023 14:00-0400 Diastolic blood pressure 83 mm[Hg] [facility] VETERANS' COORDINATOR.ACADEMIC SPECIALIST Work Phone: [facility] 08-09-2023 14:00-0400 Heart rate 78 /min [facility] VETERANS' COORDINATOR.ACADEMIC SPECIALIST Work Phone: [facility] 08-09-2023 14:00-0400 Systolic blood pressure 113 mm[Hg] [facility] VETERANS' COORDINATOR.ACADEMIC SPECIALIST Work Phone: [facility] 07-15-2023 02:40-0400 Diastolic Blood Pressure Non-Invasive [address] MORGAN BENJAMIN MD [facility] 07-15-2023 02:40-0400 Heart rate 92 /min DR MORGAN BENJAMIN MD [facility] 07-15-2023 02:40-0400 Reason For Taking VItal Signs DR MORGAN BENJAMIN MD [facility] 07-15-2023 02:40-0400 Respiratory rate 20 /min DR MORGAN BENJAMIN MD [facility] 07-15-2023 02:40-0400 Systolic Blood Pressure Non-Invasive [address] MORGAN BENJAMIN MD [facility] 07-15-2023 01:44-0400 Body temperature 97.88 [degF] DR MORGAN BENJAMIN MD [facility] 07-15-2023 01:44-0400 Diastolic Blood Pressure Non-Invasive [address] MORGAN BENJAMIN MD [facility] 07-15-2023 01:44-0400 Heart rate 100 /min DR MORGAN BENJAMIN MD [facility] 07-15-2023 01:44-0400 Respiratory rate 20 /min DR MORGAN BENJAMIN MD [facility] 07-15-2023 01:44-0400 Systolic Blood Pressure Non-Invasive [address] MORGAN BENJAMIN MD [facility] 07-12-2023 10:48-0400 Body temperature 97.3 [degF] Lala Older VETERANS' COORDINATOR.PORTFOLIO STRATEGIST Work Phone: [facility] 07-12-2023 10:48-0400 Body weight 114.13 kg Lala Older VETERANS' COORDINATOR.PORTFOLIO STRATEGIST Work Phone: [facility] 07-12-2023 10:48-0400 Diastolic blood pressure 74 mm[Hg] Lala Older VETERANS' COORDINATOR.PORTFOLIO STRATEGIST Work Phone: [facility] 07-12-2023 10:48-0400 Heart rate 110 /min Lala Older VETERANS' COORDINATOR.PORTFOLIO STRATEGIST Work Phone: [facility] 07-12-2023 10:48-0400 Respiratory rate 16 /min Lala Older VETERANS' COORDINATOR.PORTFOLIO STRATEGIST Work Phone: [facility] 07-12-2023 10:48-0400 SaO2% (BldA) [Mass fraction] 98 % Lala Older VETERANS' COORDINATOR.PORTFOLIO STRATEGIST Work Phone: [facility] 07-12-2023 10:48-0400 Systolic blood pressure 120 mm[Hg] Lala Older VETERANS' COORDINATOR.PORTFOLIO STRATEGIST Work Phone: [facility] 06-29-2023 20:32-0400 Body temperature 98.6 [degF] DR AIDAN ROBLES DO [facility] 06-29-2023 20:32-0400 Diastolic Blood Pressure Non-Invasive [address] AIDAN ROBLES DO [facility] 06-29-2023 20:32-0400 Heart rate 87 /min DR AIDAN ROBLES DO [facility] 06-29-2023 20:32-0400 Respiratory rate 20 /min DR AIDAN ROBLES DO [facility] 06-29-2023 20:32-0400 Systolic Blood Pressure Non-Invasive [address] AIDAN ROBLES DO [facility] 05-23-2023 15:00-0400 Diastolic blood pressure 77 mm[Hg] Thom Golias PT Work Phone: [facility] 05-23-2023 15:00-0400 Heart rate 74 /min Thom Golias PT Work Phone: [facility] 05-23-2023 15:00-0400 Systolic blood pressure 120 mm[Hg] Thom Golias PT Work Phone: [facility] 03-26-2023 18:15-0400 Body temperature 97.59 [degF] Gavi Praisler-Wood VETERANS' COORDINATOR.PORTFOLIO STRATEGIST Work Phone: [facility] 03-26-2023 18:15-0400 Diastolic blood pressure 78 mm[Hg] Gavi Praisler-Wood VETERANS' COORDINATOR.PORTFOLIO STRATEGIST Work Phone: [facility] 03-26-2023 18:15-0400 Heart rate 88 /min Gavi Praisler-Wood VETERANS' COORDINATOR.PORTFOLIO STRATEGIST Work Phone: [facility] 03-26-2023 18:15-0400 Respiratory rate 16 /min Gavi Praisler-Wood VETERANS' COORDINATOR.PORTFOLIO STRATEGIST Work Phone: [facility] 03-26-2023 18:15-0400 SaO2% (BldA) [Mass fraction] 94 % Gavi Praisler-Wood VETERANS' COORDINATOR.PORTFOLIO STRATEGIST Work Phone: [facility] 03-26-2023 18:15-0400 Systolic blood pressure 128 mm[Hg] Gavi Norwood VETERANS' COORDINATOR.PORTFOLIO STRATEGIST Work Phone: [facility] 01-23-2023 19:15-0400 Body height 160 cm Monik Hackett MD Work Phone: [facility] 01-23-2023 19:15-0400 Body temperature 96.1 [degF] Monik Hackett MD Work Phone: [facility] 01-23-2023 19:15-0400 Body weight 116.12 kg Monik Hackett MD Work Phone: [facility] 01-23-2023 19:15-0400 Diastolic blood pressure 64 mm[Hg] Monik Hackett MD Work Phone: [facility] 01-23-2023 19:15-0400 Heart rate 81 /min Monik Hackett MD Work Phone: [facility] 01-23-2023 19:15-0400 Respiratory rate 16 /min Monik Hackett MD Work Phone: [facility] 01-23-2023 19:15-0400 SaO2% (BldA) [Mass fraction] 94 % Monik Hackett MD Work Phone: [facility] 01-23-2023 19:15-0400 Systolic blood pressure 118 mm[Hg] Monik Hackett MD Work Phone: [facility] 06-27-2022 16:54-0400 Body height 160 cm Monik Hackett MD Work Phone: [facility] 06-27-2022 16:54-0400 Body temperature 97 [degF] Monik Hackett MD Work Phone: [facility] 06-27-2022 16:54-0400 Body weight 119.75 kg Monik Hackett MD Work Phone: [facility] 06-27-2022 16:54-0400 Diastolic blood pressure 74 mm[Hg] Monik Hackett MD Work Phone: [facility] 06-27-2022 16:54-0400 Heart rate 74 /min Monik Hackett MD Work Phone: [facility] 06-27-2022 16:54-0400 Respiratory rate 16 /min Monik Hackett MD Work Phone: [facility] 06-27-2022 16:54-0400 SaO2% (BldA) [Mass fraction] 96 % Monik Hackett MD Work Phone: [facility] 06-27-2022 16:54-0400 Systolic blood pressure 124 mm[Hg] Monik Hackett MD Work Phone: [facility] 05-30-2022 16:20-0400 Body weight 122.92 kg Trixie Srinivasa VETERANS' COORDINATOR.PORTFOLIO STRATEGIST Work Phone: [facility] 05-30-2022 16:20-0400 Diastolic blood pressure 84 mm[Hg] Trixie Srinivasa VETERANS' COORDINATOR.PORTFOLIO STRATEGIST Work Phone: [facility] 05-30-2022 16:20-0400 Heart rate 74 /min Trixie Srinivasa VETERANS' COORDINATOR.PORTFOLIO STRATEGIST Work Phone: [facility] 05-30-2022 16:20-0400 Respiratory rate 16 /min Trixie Srinivasa VETERANS' COORDINATOR.PORTFOLIO STRATEGIST Work Phone: [facility] 05-30-2022 16:20-0400 SaO2% (BldA) [Mass fraction] 92 % Trixie Srinivasa VETERANS' COORDINATOR.PORTFOLIO STRATEGIST Work Phone: [facility] 05-30-2022 16:20-0400 Systolic blood pressure 136 mm[Hg] Trixie Srinivasa VETERANS' COORDINATOR.PORTFOLIO STRATEGIST Work Phone: [facility] Encounters Encounter Date Encounter Type Care Provider Facility Start: 02-09-2026 ambulatory Con Vee Facility :[facility] Start: 09-03-2025 End: 09-03-2025 ambulatory MONIK HACKETT Facility:[facility] Start: 08-25-2025 ambulatory [facility] Facility:[facility] Start: 08-25-2025 End: 08-25-2025 ambulatory [facility] Facility:[facility] Start: 08-20-2025 End: 08-20-2025 ambulatory [facility] Facility:[facility] Start: 08-20-2025 End: 08-20-2025 ambulatory LALA OLDER Facility:[facility] Start: 08-17-2025 End: 08-17-2025 Emergency department patient visit ASHLEY MARTIN MD [facility] Start: 08-02-2025 End: 08-02-2025 [facility] Start: 07-31-2025 End: 07-31-2025 Emergency department patient visit Jose Khoury Facility:[facility] Start: 07-20-2025 End: 07-20-2025 ambulatory [facility] Facility:[facility] Start: 07-20-2025 End: 07-20-2025 ambulatory [facility] Facility:[facility] Start: 06-14-2025 End: 06-14-2025 Refill Lala Older VETERANS' COORDINATOR.PORTFOLIO STRATEGIST Work Phone: [facility] [place] Comment on above: Med Change Request Start: 05-18-2025 End: 05-19-2025 Refill Monik Hackett MD Work Phone: [facility] [place] Comment on above: Refill Request Start: 05-07-2025 End: 05-07-2025 Refill Lala Older VETERANS' COORDINATOR.PORTFOLIO STRATEGIST Work Phone: [facility] [place] Comment on above: Med Change Request Start: 04-26-2025 End: 04-27-2025 Refill Monik Hackett MD Work Phone: [facility] [place] Comment on above: Refill Request Start: 04-19-2025 End: 06-19-2025 Follow-up encounter Lala Harrison VETERANS' COORDINATOR.PORTFOLIO STRATEGIST Work Phone: [facility] [place] Start: 04-16-2025 End: 04-16-2025 ambulatory [facility] Facility:[facility] Start: 04-16-2025 End: 04-16-2025 Office outpatient visit 25 minutes Lala Harrison APRN.CNP Work Phone: [facility] [place] Comment on above: Dizziness (Primary D x); Tinnitus of both ears; Controlled type 2 diabetes mellitus without complication, with long-term current use of insulin ([facility]); Other chronic pain; Weight gain; Paresthesia of bilateral legs; Insomnia, unspecified type; Schizophrenia, unspecified type ([facility]ERLY [facility]); Panic disorder without agoraphobia; Medication management Start: 04-16-2025 End: 04-16-2025 [facility] Facility:[facility] Start: 04-12-2025 End: 04-12-2025 Telephone encounter Monik Hackett MD Work Phone: [facility] [place] Comment on above: Patient Update Start: 03-30-2025 End: 04-05-2025 Refill Monik Hackett MD Work Phone: [facility] [place] Comment on above: Refill Request Start: 03-24-2025 End: 03-25-2025 Refill Monik Hackett MD Work Phone: [facility] [place] Comment on above: Refill Request; de la paz sfer to new pharmacy since [facility] closing Start: 03-09-2025 End: 04-09-2025 ambulatory Monik Hackett MD Work Phone: [facility] [place] Start: 02-26-2025 End: 03-10-2025 Telephone encounter Monik Hackett MD Work Phone: [facility] [place] Comment on above: Order Request Start: 02-23-2025 End: 02-23-2025 Refill Monik Hackett MD Work Phone: [facility] [place] Comment on above: Refill Request Start: 02-08-2025 End: 02-10-2025 Refill Monik Hackett MD Work Phone: [facility] [place] Comment on above: Refill Request Start: 01-20-2025 End: 02-01-2025 Refill Lala Harrison APRN.CNP Work Phone: [facility] [place] Comment on above: Refill Request Start: 01-04-2025 End: 01-05-2025 Telephone encounter Monik Hackett MD Work Phone: [facility] [place] Comment on above: Refill Request; Medi cation Problem Refill Request Start: 12-07-2024 End: 12-08-2024 Refill Monik Hackett MD Work Phone: [facility] [place] Comment on above: Refill Request Start: 12-01-2024 End: 12-01-2024 Telephone encounter Monik Hackett MD Work Phone: [facility] [place] Comment on above: Patient Update Start: 11-11-2024 End: 11-13-2024 Telephone encounter Oscar Olivarez MORTGAGE CONSULTANT Navigation Start: 11-10-2024 End: 11-10-2024 [facility] Facility:[facility] Start: 11-10-2024 End: 11-10-2024 ambulatory [facility] Facility:[facility] Start: 11-10-2024 End: 11-10-2024 Office outpatient visit 25 minutes Jaime Spencer APRN.CNS Work Phone: [facility] [place] Comment on above: Panic disorder witho ut agoraphobia (Primary Dx); Moderate episode of recurrent major depressive disorder (HCC); Insomnia, unspecified type; Controlled type 2 diabetes mellitus without complication, with long-term current use of insulin (HCC); Burning sensation; Fibromyalgia; Other fatigue; Generalized pain Start: 11-03-2024 End: 11-04-2024 Refill Monik Hackett MD Work Phone: [facility] [place] Comment on above: Refill Request; Lab Orders Start: 09-22-2024 End: 09-25-2024 ambulatory Monik Hackett MD Work Phone: Internal Medicine [facility] Start: 08-20-2024 End: 08-20-2024 Refill Monik Hackett MD Work Phone: [facility] [place] Comment on above: Refill Request Start: 08-11-2024 End: 08-12-2024 Refill Susan Rea VETERANS' COORDINATOR.PORTFOLIO STRATEGIST Work Phone: [facility] [place] Comment on above: Refill Request Start: 06-26-2024 End: 06-26-2024 Refill Monik Hackett MD Work Phone: [facility] [place] Comment on above: Refill Request Start: 06-18-2024 End: 06-23-2024 Refill Lala Harrison APRN.PORTFOLIO STRATEGIST Work Phone: [facility] [place] Comment on above: Med Change Request Start: 06-12-2024 Refill Monik Burnette Work Phone: [facility] [place] Comment on above: Med Change Request Start: 06-11-2024 Refill Lala Harrison APRN .PORTFOLIO STRATEGIST Work Phone: [facility] [place] Comment on above: Refill Request Start: 06-01-2024 Refill Monik Burnette Work Phone: [facility] Comment on above: Refill Request Start: 05-08-2024 Telephone encounter Jaime julian VETERANS' COORDINATOR.ACADEMIC SPECIALIST Work Phone: [facility] [place] Comment on above: Procedure Start: 05-06-2024 End: 05-06-2024 Patient encounter procedure Lala Harrison APRN.PORTFOLIO STRATEGIST Work Phone: [facility] [place] Comment on above: Controlled type 2 di abetes mellitus without complication, with long-term current use of insulin (HCC) (Primary Dx); Chest pain, unspecified type; SOBOE (shortness of breath on exertion) Start: 04-29-2024 End: 04-29-2024 ambulatory Pulm Lab [facility] Work Phone: PULM LAB [facility] Comment on above: Spirometry Start: 04-29-2024 End: 04-29-2024 Patient encounter procedure Pulm Lab [facility] Work Phone: [facility] Comment on above: Mild persistent asth ma without complication (Primary Dx); SOB (shortness of breath); Hypoxemia; Morbid obesity (HCC) Start: 04-27-2024 Refill Jaime Spencer A PRN.ACADEMIC SPECIALIST Work Phone: [facility] [place] Comment on above: Refill Request Start: 04-08-2024 Refill Susan Rea A PRN.PORTFOLIO STRATEGIST Work Phone: [facility] [place] Comment on above: Refill Request Start: 2024 Telephone encounter Monik duncan MD Work Phone: [facility] [place] Comment on above: Insurance Authorizat ion ([place]) Start: 03-12-2024 Refill Jaime Spencer A PRN.ACADEMIC SPECIALIST Work Phone: [facility] [place] Start: 02-27-2024 End: 02-27-2024 Office outpatient visit 25 minutes Jaime Spencer VETERANS' COORDINATOR.ACADEMIC SPECIALIST Work Phone: [facility] [place] Comment on above: Chest pain, unspecif ied type (Primary Dx); SOBOE (shortness of breath on exertion); Hot flashes; Controlled type 2 diabetes mellitus without complication, with long-term current use of insulin ([facility]); Screening for diabetic retinopathy; Irritant contact dermatitis due to cosmetics; Encounter for immunization Start: 02-27-2024 Telephone encounter Camila Johns MD Work Phone: Pulmonary Medicine Comment on above: Orders Start: 02-13-2024 Refill Lala Harrison VETERANS' COORDINATOR .PORTFOLIO STRATEGIST Work Phone: [facility] [place] Comment on above: Refill Request Start: 02-06-2024 Refill Lala Harrison VETERANS' COORDINATOR .PORTFOLIO STRATEGIST Work Phone: [facility] [place] Comment on above: Refill Request Start: 01-24-2024 Refill Yasmine camacho VETERANS' COORDINATOR.PORTFOLIO STRATEGIST Work Phone: [facility] [place] Comment on above: Refill Request Start: 01-07-2024 Refill Jaime Spencer A PRN.ACADEMIC SPECIALIST Work Phone: [facility] [place] Comment on above: Refill Request Start: 01-06-2024 Refill Susan Rea A PRN.PORTFOLIO STRATEGIST Work Phone: [facility] [place] Comment on above: Refill Request Start: 12-11-2023 Telephone encounter Yasmine M Hers hberger VETERANS' COORDINATOR.PORTFOLIO STRATEGIST Work Phone: [facility] [place] Comment on above: Results Start: 12-10-2023 Refill Jaime Spencer A PRN.ACADEMIC SPECIALIST Work Phone: [facility] [place] Comment on above: Refill Request Start: 12-09-2023 Telephone encounter Yasmine Oliveros hberger VETERANS' COORDINATOR.PORTFOLIO STRATEGIST Work Phone: [facility] [place] Start: 12-07-2023 Refill Jaime Spencer A PRN.ACADEMIC SPECIALIST Work Phone: [facility] [place] Comment on above: Refill Request Start: 12-06-2023 End: 12-06-2023 ambulatory Pulm Lab [facility] Work Phone: [facility] Comment on above: Spirometry Start: 12-06-2023 End: 12-06-2023 Patient encounter procedure Pulm Lab [facility] Work Phone: [place] [facility] [place] Start: 11-29-2023 Telephone encounter Monik duncan MD Work Phone: [facility] [place] Comment on above: DME for oxygen Start: 11-25-2023 End: 11-25-2023 Subsequent hospital visit by physician Xr [facility] [place] Work Phone: Radiology Comment on above: Pain of right thumb [M79.644] Start: 11-04-2023 End: 11-04-2023 Subsequent hospital visit by physician Xr [facility] [place] Work Phone: Radiology Comment on above: Acute cough [R05.1] Start: 10-03-2023 ambulatory Lala Older VETERANS' COORDINATOR .PORTFOLIO STRATEGIST Work Phone: [facility] [place] Comment on above: [facility] not [facility] my Rosuvastatin I requested on October 01 Refill Request Start: 10-01-2023 Refill Kelsi Alfred PA-C Work Phone: [facility] [place] Comment on above: Refill Request I Need A Pulse Oxime ter & Blood Pressure Cuff Meter Start: 08-27-2023 Telephone encounter Constance Humphries [facility] Work Phone: [facility] Comment on above: Missed Appointment Start: 08-21-2023 Refill Yasmine ReyesPORTFOLIO STRATEGIST Work Phone: [facility] [place] Comment on above: Refill Request Start: 08-13-2023 Telephone encounter Jaime julian VETERANS' COORDINATOR.ACADEMIC SPECIALIST Work Phone: [facility] [place] Comment on above: Medication Problem Refill Request Start: 08-09-2023 End: 08-09-2023 Office outpatient visit 25 minutes Jaime Spencer VETERANS' COORDINATOR.ACADEMIC SPECIALIST Work Phone: [facility] [place] Comment on above: NANCY positive (Primar y Dx); History of iron deficiency; Esophageal reflux; Screening for cervical cancer; Screening for colon cancer; Encounter for immunization; Controlled type 2 diabetes mellitus without complication, with long-term current use of insulin ([facility]); Screening for diabetic retinopathy; Generalized pain; Burning sensation; Fibromyalgia; Irritant contact dermatitis due to cosmetics; Rash and nonspecific skin eruption Start: 07-15-2023 Refill Monik Burnette Work Phone: [facility] [place] Comment on above: Refill Request (New blood sugar meter/supplies//) Start: 07-15-2023 End: 07-15-2023 Emergency department patient visit DR MORGAN BENJAMIN MD [facility] Start: 07-12-2023 End: 07-12-2023 Patient encounter procedure Lala Harrison APRN.PORTFOLIO STRATEGIST Work Phone: [facility] [place] Comment on above: Generalized pain (Pr imary Dx); Burning sensation; Weakness; Brain fog; Controlled type 2 diabetes mellitus without complication, with long-term current use of insulin (HCC); Fibromyalgia Start: 06-29-2023 End: 06-29-2023 Emergency department patient visit DR AIDAN ROBLES DO [facility] Start: 06-11-2023 Refill Lala Harrison APRN, .CNP Work Phone: [facility] [place] Comment on above: Refill Request Start: 05-27-2023 End: 05-27-2023 ambulatory Ricardo Dinh [facility] Work Phone: [facility] Comment on above: Controlled type 2 di abetes mellitus without complication, with long-term current use of insulin (HCC) (Primary Dx) Start: 05-27-2023 End: 05-27-2023 Telemedicine consultation with patient Ricardo Dinh [facility] Work Phone: [facility] Start: 05-23-2023 End: 05-23-2023 OT/PT/Speech Visit Thom Enamorado PT Work Phone: [facility] Comment on above: 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 (Primary Dx); Benign paroxysmal vertigo of both ears Start: 05-01-2023 ambulatory Monik Burnette Work Phone: [facility] [place] Start: 04-29-2023 Refill Monik Burnette Work Phone: [facility] Comment on above: Med Change Request Start: 04-19-2023 ambulatory No One (Historical) Ref erring Physician Start: 04-16-2023 ambulatory No Pcp (Historcal) Refe rring Physician Start: 04-15-2023 Telephone encounter Monik duncan MD Work Phone: [facility] [place] Comment on above: Insurance Authorizat ion Start: 04-14-2023 Refill Monik Burnette Work Phone: [facility] Comment on above: Med Change Request Start: 04-11-2023 End: 04-11-2023 Patient encounter procedure Fior Joseph [facility] Work Phone: [facility] Comment on above: Controlled type 2 di abetes mellitus without complication, with long-term current use of insulin (HCC) (Primary Dx); Medication management Refill Request Start: 03-26-2023 End: 03-26-2023 Subsequent hospital visit by physician Sushila [facility] [place] Work Phone: Radiology Comment on above: Knee joint injury, i nitial encounter [S89.90XA] Start: 03-26-2023 End: 03-26-2023 Patient encounter procedure Gavi Norwood VETERANS' COORDINATOR.PORTFOLIO STRATEGIST Work Phone: [facility] Comment on above: Knee joint injury, i nitial encounter (Primary Dx) Start: 02-26-2023 Telephone encounter Monik duncan MD Work Phone: [facility] [place] Comment on above: Xray Results Start: 02-22-2023 End: 02-22-2023 Subsequent hospital visit by physician Xr [facility] [place] Work Phone: Radiology Comment on above: Chronic bilateral lo w back pain with bilateral sciatica [M54.42, M54.41, G89.29] Start: 01-31-2023 Telephone encounter Jess Perry [facility] Work Phone: [facility] Comment on above: Appointment Start: 01-30-2023 Refill Monik Burnette Work Phone: [facility] [place] Comment on above: Refill Request Start: 01-23-2023 End: 01-23-2023 Patient encounter procedure Monik Hackett MD Work Phone: [facility] [place] Comment on above: Schizophrenia, unspe cified type (HCC) (Primary Dx); Fibromyalgia; Moderate episode of recurrent major depressive disorder (HCC); Controlled type 2 diabetes mellitus without complication, with long-term current use of insulin (HCC); Hypertriglyceridemia; Subcutaneous nodules Start: 01-01-2023 Refill Monik Burnette Work Phone: [facility] [place] Comment on above: Refill Request Start: 12-21-2022 ambulatory Trixie martin VETERANS' COORDINATOR.PORTFOLIO STRATEGIST Work Phone: [facility] [place] Comment on above: Question regarding C BC Start: 11-26-2022 Refill Lala Harrison APRN .PORTFOLIO STRATEGIST Work Phone: [facility] [place] Comment on above: Refill Request Start: 11-12-2022 Refill Lala ReyesPORTFOLIO STRATEGIST Work Phone: [facility] [place] Comment on above: Refill Request Start: 10-09-2022 End: 10-09-2022 Subsequent hospital visit by physician Sushila [facility] [place] Work Phone: Radiology Comment on above: Hammertoe of left fo ot [M20.42] Start: 09-24-2022 Refill Lala Older VETERANS' COORDINATOR .PORTFOLIO STRATEGIST Work Phone: [facility] [place] Comment on above: Refill Request Start: 09-06-2022 Refill Trixietremaine Choudhurym an VETERANS' COORDINATOR.PORTFOLIO STRATEGIST Work Phone: [facility] [place] Comment on above: Refill Request Start: 08-20-2022 Refill Lala Older VETERANS' COORDINATOR .PORTFOLIO STRATEGIST Work Phone: [facility] [place] Comment on above: Refill Request Start: 07-25-2022 ambulatory No Pcp (Historical) Ref erring Physician Start: 07-17-2022 Refill Trixie Choudhurym an VETERANS' COORDINATOR.PORTFOLIO STRATEGIST Work Phone: [facility] [place] Comment on above: Refill Request Start: 07-03-2022 Refill Lala Older VETERANS' COORDINATOR .PORTFOLIO STRATEGIST Work Phone: [facility] [place] Comment on above: Refill Request Start: 06-27-2022 End: 06-27-2022 Patient encounter procedure Monik Hackett MD Work Phone: [facility] [place] Comment on above: Pitted nails (Primar y Dx); Controlled type 2 diabetes mellitus without complication, with long-term current use of insulin (HCC); Mixed hyperlipidemia; Vitamin B12 deficiency Start: 05-30-2022 End: 05-30-2022 Office outpatient visit 40 minutes Trixie Gibson VETERANS' COORDINATOR.PORTFOLIO STRATEGIST Work Phone: [facility] [place] Comment on above: Onychomycosis (Prima ry Dx) Start: 05-23-2022 ambulatory Monik Burnette Work Phone: [facility] [place] Start: 05-14-2022 Refill Lala Older VETERANS' COORDINATOR .PORTFOLIO STRATEGIST Work Phone: [facility] [place] Comment on above: Refill Request Start: 05-05-2022 Refill Lala Older VETERANS' COORDINATOR .PORTFOLIO STRATEGIST Work Phone: [facility] [place] Comment on above: Refill Request Start: 03-14-2022 ambulatory Trixie Pati martin VETERANS' COORDINATOR.PORTFOLIO STRATEGIST Work Phone: [facility] [place] Comment on above: IRON, COMPREHENSIVE METABOLIC PANEL, A1C Start: 03-13-2022 ambulatory Trixie Wilcoxavel martin VETERANS' COORDINATOR.PORTFOLIO STRATEGIST Work Phone: [facility] [place] Comment on above: TOE NAILS Start: 02-09-2022 Refill Lala Older VETERANS' COORDINATOR .PORTFOLIO STRATEGIST Work Phone: [facility] [place] Comment on above: Refill Request Procedures Date Procedure Procedure Detail Performing Clinician Start: 04-29-2024 Nitric oxide gas determination Camila Johns MD Work Phone: Start: 12-06-2023 Noninvasive ear/puls e oximetry multiple deter Yasmine Martinez VETERANS' COORDINATOR.PORTFOLIO STRATEGIST Work Phone: Start: 12-06-2023 Plethysmography lung volumes w/wo airway resist Yasmine Martinez VETERANS' COORDINATOR.PORTFOLIO STRATEGIST Work Phone: Start: 11-25-2023 Radex fingr minimum 2 views Gavi Norwood VETERANS' COORDINATOR.PORTFOLIO STRATEGIST Work Phone: Start: 11-04-2023 Radiologic exam ches t 2 views Yasmine Martinez VETERANS' COORDINATOR.PORTFOLIO STRATEGIST Work Phone: Start: 08-09-2023 INFLUENZA VACCINE, A GE 6 MO - 64 YR, QUADRIVALENT (AFLURIA, FLULAVAL, FLUZONE) Jaime Spencer VETERANS' COORDINATOR.ACADEMIC SPECIALIST Work Phone: Start: 07-12-2023 Urnls dip stick/tabl et rgnt auto w/o microscopy Lala Harrison VETERANS' COORDINATOR.PORTFOLIO STRATEGIST Work Phone: Start: 07-12-2023 Hemoglobin A1c/Hemoglobin.total in Blood Lala Harrison VETERANS' COORDINATOR.PORTFOLIO STRATEGIST Work Phone: Start: 03-26-2023 Radiologic exam knee complete 4/more views Gavi Norwood VETERANS' COORDINATOR.PORTFOLIO STRATEGIST Work Phone: Start: 02-22-2023 Radex spine lumbosac ral 2/3 views Monik Hackett MD Work Phone: Start: 10-09-2022 Radex foot complete minimum 3 views Narendra Turner Work Phone: Start: 05-20-2006 Mammography Lala Older VETERANS' COORDINATOR.PORTFOLIO STRATEGIST Work Phone: Abdominal hysterectomy DR RANDALL BENJAMIN MD History of right tot al knee replacement DR MORGAN BENJAMIN MD Tonsillectomy DR MORGAN BENJAMIN MD Plan of Treatment Date Care Activity Detail Author Start: 10-02-2031 Urine microalbumin profile [facility] Start: 04-17-2026 Hepatitis B screening Urine Albumin:Creatinine Ratio [facility] Start: 04-16-2026 Annual PCP Team Chronic Disease Visit Annual PCP Team Chronic Disease Visit [facility] Start: 11-10-2025 Hepatitis B surface antibody level LDL Cholesterol [facility] Start: 10-16-2025 Hemoglobin A1c measurement HbA1C [facility] Start: 06-28-2025 Influenza vaccination [facility] Start: 06-25-2025 End: 06-25-2025 Patient encounter procedure 06/25/2025 4:20 PM EDT Office Visit [facility] [place] [address] [place] [address] Monik Hackett MD [address] [place], [place] [id number] follow up [facility] [place] Comment on above: follow up Start: 05-10-2025 Hemoglobin A1c measurement HbA1C [facility] Start: 05-06-2025 Annual PCP Team Chronic Disease Visit Annual PCP Team Chronic Disease Visit [facility] Start: 04-20-2025 End: 04-20-2025 Patient encounter procedure 04/20/2025 2:40 PM EDT Office Visit [facility] [place] [address] [place] [address] Monik Hackett MD [address] [facility] [place] [address] follow up [facility] [place] Comment on above: follow up Start: 04-16-2025 End: 07-16-2025 Cobalamin (Vitamin B12) [Mass/volume] in Serum or Plasma [facility] Comment on above: Expected: 04/16/2025, Expires: Start: 04-16-2025 End: 07-16-2025 Comprehensive metabolic 2000 panel - Serum or Plasma [facility] Comment on above: Expected: 04/16/2025, Expires: Start: 04-16-2025 End: 07-16-2025 Cortisol [Mass/volume] in Serum or Plasma [facility] Comment on above: Expected: 04/16/2025, Expires: Start: 04-16-2025 End: 07-16-2025 Hemoglobin A1c in Blood [facility] [employer] Work Phone: Comment on above: Expected: 04/16/2025, Expires: Start: 04-16-2025 End: 07-16-2025 Microalbumin/Creatinine [Mass Ratio] in Urine ALBUMIN/CREATININE RATIO, URINE Lab Routine Controlled type 2 diabetes mellitus without complication, with long-term current use of insulin (HCC) Expected: 04/16/2025, Expires: 07/16/[address] [facility] Comment on above: Expected: 04/16/2025, Expires: Start: 04-16-2025 End: 07-16-2025 Thyrotropin [Units/volume] in Serum or Plasma [facility] Comment on above: Expected: 04/16/2025, Expires: Start: 04-16-2025 End: 07-16-2025 Thyroxine (T4) free [Mass/volume] in Serum or Plasma [facility] Comment on above: Expected: 04/16/2025, Expires: Start: 04-16-2025 End: 07-16-2025 Triiodothyronine (T3) Free [Mass/volume] in Serum or Plasma [facility] Comment on above: Expected: 04/16/2025, Expires: Start: 04-16-2025 End: 07-16-2025 Urinalysis complete panel - Urine URINALYSIS (WITH MICROSCOPIC) WITH CULTURE IF INDICATED Lab Routine Dizziness Tinnitus of both ears Controlled type 2 diabetes mellitus without complication, with long-term current use of insulin (HCC) Weight gain Paresthesia of bilateral legs Expected: 04/16/2025, Expires: 07/16/[address] [facility] Comment on above: Expected: 04/16/2025, Expires: Start: 04-16-2025 End: 04-16-2025 Patient encounter procedure 04/16/2025 8:00 AM EDT Office Visit [facility] [place] [address] [facility] [place] [address] Monik Hackett [facility] [address] [facility] [place] [place] [address] Generalized Weakness, fatigue, irritable. SEE TE. Internal Medicine [place] Comment on above: Generalized Weakness, fatigue, irritable . SEE TE. Start: 03-19-2025 End: 03-19-2025 Patient encounter procedure 03/19/2025 4:20 PM EDT Office Visit [facility] Medicine [place] [address] [facility] [place] [address] Monik Hackett MD [address] [facility] [place] [address] follow up Internal Medicine [place] Comment on above: follow up Start: 02-05-2025 End: 02-05-2025 Patient encounter procedure 02/05/2025 4:20 PM EDT Office Visit Internal Medicine [place] [address] [facility] [place] [address] Monik Hackett MD [address] [facility] [place] [address] follow up Internal Medicine [place] Comment on above: follow up Start: 12-15-2024 End: 12-15-2024 Patient encounter procedure 12/15/2024 2:40 PM EST Office Visit Internal Medicine [place] [address] [facility] [place] [address] Monik Hackett MD [address] [facility] [place] [address] follow up Internal Medicine [place] Comment on above: follow up Start: 11-10-2024 End: 02-09-2025 25-hydroxyvitamin D3 [Mass/volume] in Serum or Plasma [facility] Comment on above: Expected: 11/10/2024, Expires: Start: 11-10-2024 End: 02-09-2025 CBC W Auto Differential panel - Blood [facility] Work Phone: Comment on above: Expected: 11/10/2024, Expires: Start: 11-10-2024 End: 02-09-2025 Cobalamin (Vitamin B12) [Mass/volume] in Serum or Plasma [facility] Comment on above: Expected: 11/10/2024, Expires: Start: 11-10-2024 End: 02-09-2025 Comprehensive metabolic 2000 panel - Serum or Plasma [facility] Comment on above: Expected: 11/10/2024, Expires: Start: 11-10-2024 End: 02-09-2025 Ferritin [Mass/volume] in Serum or Plasma [facility] Comment on above: Expected: 11/10/2024, Expires: Start: 11-10-2024 End: 02-09-2025 Iron and Iron binding capacity panel - Serum or Plasma [facility] Comment on above: Expected: 11/10/2024, Expires: Start: 11-10-2024 End: 02-09-2025 Thyrotropin [Units/volume] in Serum or Plasma [facility] Comment on above: Expected: 11/10/2024, Expires: Start: 11-06-2024 End: 11-06-2024 Patient encounter procedure 11/06/2024 1:40 PM EST Office Visit [facility] Medicine [place] [address] [facility] [place] [address] Lala Harrison APRN.PORTFOLIO STRATEGIST [address] [facility] [place] [address] fatigue Internal Medicine [place] Comment on above: fatigue Start: 11-04-2024 Annual PCP Team Chronic Disease Visit Annual PCP Team Chronic Disease Visit [facility] Start: 11-04-2024 Hepatitis B surface antibody level LDL Cholesterol [facility] Start: 10-05-2024 End: 10-05-2024 Patient encounter procedure 10/05/2024 3:00 PM EST Office Visit Internal Medicine [place] [address] [facility] [place] [address] Lala Harrison APRN.PORTFOLIO STRATEGIST [address] [place] [address] fatigue Internal Medicine [place] Comment on above: fatigue Start: 09-23-2024 End: 09-23-2024 Patient encounter procedure 09/23/2024 3:00 PM EST Office Visit Pulmonary Medicine [address] [place], [place] [id number] Monserrat Khoury, PA-C [address] [place] [facility] [address] 3 MTH F/U ASTHMA Pulmonary Medicine Comment on above: 3 MTH F/U ASTHMA Start: 09-22-2024 End: 12-22-2024 Hemoglobin A1c in Blood HEMOGLOBIN A1C Lab Routine Controlled type 2 diabetes mellitus without complication, with long-term current use of insulin (HCC) Expected: 09/22/2024, Expires: 12/22/[address] [facility] Comment on above: Expected: 09/22/2024, Expires: Start: 09-22-2024 End: 12-22-2024 Lipid 1996 panel - Serum or Plasma LIPID PANEL BASIC Lab Routine Medication management Expected: 09/22/2024, Expires: 12/22/[address] [facility] Comment on above: Expected: 09/22/2024, Expires: Start: 09-22-2024 End: 12-22-2024 Microalbumin/Creatinine [Mass Ratio] in Urine ALBUMIN/CREATININE RATIO, URINE Lab Routine Controlled type 2 diabetes mellitus without complication, with long-term current use of insulin (HCC) Expected: 09/22/2024, Expires: 12/22/2024 [facility] Work Phone: Comment on above: Expected: 09/22/2024, Expires: Start: 08-29-2024 Hemoglobin A1c measurement HbA1C [facility] Start: 08-28-2024 End: 08-28-2024 Patient encounter procedure 08/28/2024 3:00 PM EDT Office Visit Neurology [address] [place], [place] [address] Vicky Ga APRN.PORTFOLIO STRATEGIST [address] [place] [address] SLEEP APNEA Neurology Comment on above: SLEEP APNEA Start: 08-19-2024 End: 08-19-2024 Patient encounter procedure 08/19/2024 6:00 PM EDT Office Visit Internal Medicine [place] [address] [place], [place] [id number] Lala Harrison APRN.PORTFOLIO STRATEGIST [address] [place], [place] [address] This is a follow up from last appt with Lala Harrison. Internal Medicine [place] Comment on above: This is a follow up from last appt with Lala Harrison. Start: 08-09-2024 Hepatitis B screening Urine Albumin:Creatinine Ratio [facility] Start: 07-29-2024 End: 07-29-2024 Patient encounter procedure 07/29/2024 6:00 PM EDT Office Visit Internal Medicine [place] [address] [place], [place] [phone] Lala Harrison APRN.PORTFOLIO STRATEGIST [address] [place], [place] [address] This is a follow up from last appt with Lala Harrison. Internal Medicine [place] Comment on above: This is a follow up from last appt with Lala Harrison. Start: 07-12-2024 Annual PCP Team Chronic Disease Visit Annual PCP Team Chronic Disease Visit [facility] Start: 07-12-2024 Hepatitis B surface antibody level LDL Cholesterol [facility] Start: 07-07-2024 End: 07-07-2024 ambulatory 07/07/2024 1:00 PM EDT Education Endocrinology [address] [place] [address] [place] [address] [place] [address] [phone] Endocrinology Comment on above: [phone] Start: 06-28-2024 Covid-19 Vaccine () Covid-19 Vaccine () [facility] Start: 06-28-2024 Covid-19 Vaccine () Covid-19 Vaccine () [facility] Start: 06-28-2024 Influenza vaccination Influenza Vaccine (#1) [facility] Start: 06-26-2024 End: 06-26-2024 Patient encounter procedure 06/26/2024 1:20 PM EDT Office Visit Internal Medicine [place] [address] [facility], [place] [address] Lala Harrison, VETERANS' COORDINATOR.PORTFOLIO STRATEGIST [address] [facility], [place] [address] 4 wk f/u Internal Medicine [place] Comment on above: 4 wk f/u Start: 06-18-2024 End: 09-17-2024 25-hydroxyvitamin D3 [Mass/volume] in Serum or Plasma VITAMIN D 25 HYDROXY Lab Routine Vitamin D deficiency Expected: 06/18/2024, Expires: 09/17/2024 [facility] Work Phone: Comment on above: Expected: 06/18/2024, Expires: Start: 06-17-2024 End: 06-17-2024 Patient encounter procedure 06/17/2024 5:00 PM EDT Office Visit Internal Medicine [place] [address] [facility], [place] [id number] Lala Harrison, VETERANS' COORDINATOR.PORTFOLIO STRATEGIST [address] [facility], [place] [id number] 4 wk f/u Internal Medicine [place] Comment on above: 4 wk f/u Start: 05-15-2024 End: 05-15-2024 Patient encounter procedure 05/15/2024 8:30 AM EDT Appointment [facility] Cardiology [address] [facility] [address] [place] [address] Chest pain, unspecified type [R07.9]; SOBOE (shortness of breath on exertion) [R06.02 [facility] Cardiology Comment on above: Chest pain, unspecified type [R07.9]; SO MARIELY (shortness of breath on exertion) [R06.02 Start: 05-06-2024 End: 05-06-2024 Patient encounter procedure 05/06/2024 5:00 PM EDT Office Visit Internal Medicine [place] [address] [facility] [place] [address] Lala Harrison APRN.PORTFOLIO STRATEGIST [address] [place] [address] 6 month follow up Internal Medicine [place] Comment on above: 6 month follow up Start: 05-04-2024 Hemoglobin A1c measurement HbA1C [facility] Start: 04-29-2024 End: 04-29-2024 Patient encounter procedure 04/29/2024 1:30 PM EDT Office Visit Pulmonary Medicine [address] [place] [address] Monserrat Khoury, PA-C [address] [place] [address] 3 MTH F/U ASTHMA Pulmonary Medicine Comment on above: 3 MTH F/U ASTHMA Start: 04-29-2024 End: 04-29-2024 ambulatory 04/29/2024 1:15 PM EDT Procedure PULM LAB [facility] [address] [place] [address] [facility]str, Pulm [facility] [address] [place] [address] 3 MTH F/U ASTHMA PULM LAB [facility] Comment on above: 3 MTH F/U ASTHMA Start: 04-27-2024 End: 04-27-2024 Patient encounter procedure 04/27/2024 3:30 PM EDT Office Visit Neurology [address] [place] [address] Vicky Ga, JENN.PORTFOLIO STRATEGIST [address] [place] [address] SLEEP APNEA Neurology Comment on above: SLEEP APNEA Start: 04-27-2024 Hzv zoster vacc recombinant adjuvanted im njx ZOSTER VACCINE, RECOMBINANT (SHINGRIX) Immunization/Injection Routine Encounter for immunization Expected: 04/27/[address] [facility] Comment on above: Expected: 04/27/2024 Start: 03-30-2024 End: 03-30-2024 Patient encounter procedure 03/30/2024 2:20 PM EDT Office Visit Internal Medicine [place] [address] [place] [address] Jaime Spencer APRN.ACADEMIC SPECIALIST [address] [place] [address] follow up Internal Medicine [place] Comment on above: follow up Start: 03-20-2024 End: 03-20-2024 Patient encounter procedure 03/20/2024 1:50 PM EDT Office Visit Cardiology [address] [place] [address] Hypoxemia [R09.02] Cardiology Comment on above: Hypoxemia [R09.02] Start: 02-27-2024 End: 05-28-2024 Hemoglobin A1c in Blood [facility] Comment on above: Expected: 02/27/2024, Expires: Start: 02-23-2024 ANNUAL PCP TEAM CHRONIC DISEASE VISIT ANNUAL PCP TEAM CHRONIC DISEASE VISIT [facility] Start: 02-21-2024 Hepatitis B surface antibody level LDL CHOLESTEROL [facility] Start: 01-24-2024 ANNUAL PCP TEAM CHRONIC DISEASE VISIT ANNUAL PCP TEAM CHRONIC DISEASE VISIT [facility] Start: 11-09-2023 End: 01-09-2024 Hemoglobin A1c in Blood HGB A1C Lab Routine Controlled type 2 diabetes mellitus without complication, with long-term current use of insulin (HCC) Expected: 11/09/2023 (Approximate), Expires: 01/09/2024 [facility] Work Phone: Comment on above: Expected: 11/09/2023 (Approximate), Expi res: 01/09/2024 Start: 10-11-2023 Hemoglobin A1c/Hemoglobin.total in Blood HbA1C [facility] Start: 08-22-2023 Hemoglobin A1c/Hemoglobin.total in Blood HBA1C [facility] Start: 08-09-2023 End: 10-09-2023 ALBUMIN/CREAT RATIO RND UR [facility] Work Phone: Comment on above: Expected: 08/09/2023, Expires: 3 Start: 07-31-2023 Glaucoma screening Dilated Retinal Exam [facility] Start: 07-31-2023 Hepatitis C antibody, confirmatory test DILATED RETINAL EXAM [facility] Start: 07-12-2023 End: 09-11-2023 NANCY BY IFA SCREEN [facility] Work Phone: Comment on above: Expected: 07/12/2023, Expires: 3 Start: 07-12-2023 End: 09-11-2023 C reactive protein [Mass/volume] in Serum or Plasma [facility] Work Phone: Comment on above: Expected: 07/12/2023, Expires: 3 Start: 07-12-2023 End: 09-11-2023 Cobalamin (Vitamin B12) [Mass/volume] in Serum or Plasma [facility] Work Phone: Comment on above: Expected: 07/12/2023, Expires: 3 Start: 07-12-2023 End: 09-11-2023 Magnesium [Mass/volume] in Serum or Plasma [facility] Work Phone: Comment on above: Expected: 07/12/2023, Expires: 3 Start: 07-12-2023 End: 09-11-2023 Rheumatoid factor [Units/volume] in Serum or Plasma [facility] Work Phone: Comment on above: Expected: 07/12/2023, Expires: 3 Start: 07-12-2023 End: 09-11-2023 Thyroxine (T4) free [Mass/volume] in Serum or Plasma [facility] Work Phone: Comment on above: Expected: 07/12/2023, Expires: 3 Start: 06-28-2023 Covid-19 Vaccine () Covid-19 Vaccine () [facility] Start: 06-28-2023 Influenza vaccination [facility] Start: 06-27-2023 ANNUAL PCP TEAM CHRONIC DISEASE VISIT ANNUAL PCP TEAM CHRONIC DISEASE VISIT [facility] Start: 06-27-2023 BP CONTROLLED (<130/80) BP CONTROLLED (<130/80) [facility] Start: 05-30-2023 ANNUAL PCP TEAM CHRONIC DISEASE VISIT ANNUAL PCP TEAM CHRONIC DISEASE VISIT [facility] Start: 04-10-2023 Hepatitis B surface antibody level LDL CHOLESTEROL [facility] Start: 03-20-2023 Hepatitis C antibody, confirmatory test DILATED RETINAL EXAM [facility] Start: 12-24-2022 End: 02-23-2023 25-hydroxyvitamin D3 [Mass/volume] in Serum or Plasma VITAMIN D 25 HYDROXY Lab Routine Vitamin D deficiency Expected: 12/24/2022, Expires: 02/23/2023 [facility] Work Phone: Comment on above: Expected: 12/24/2022, Expires: 3 Start: 12-24-2022 End: 02-23-2023 Cobalamin (Vitamin B12) [Mass/volume] in Serum or Plasma VITAMIN B12 BLOOD Lab Routine Vitamin B12 deficiency Expected: 12/24/2022, Expires: 02/23/2023 [facility] Work Phone: Comment on above: Expected: 12/24/2022, Expires: 3 Start: 10-10-2022 Hemoglobin A1c/Hemoglobin.total in Blood HBA1C [facility] Start: 10-02-2022 ANNUAL PCP TEAM CHRONIC DISEASE VISIT ANNUAL PCP TEAM CHRONIC DISEASE VISIT [facility] Start: 10-02-2022 BP CONTROLLED (<130/80) BP CONTROLLED (<130/80) [facility] Start: 10-02-2022 Hepatitis B screening URINE ALBUMIN:CREATININE RATIO [facility] Start: 10-02-2022 Hepatitis B surface antibody level LDL CHOLESTEROL [facility] Start: 10-02-2022 PNEUMOCOCCAL (2 - PCV) PNEUMOCOCCAL (2 - PCV) [facility] ic Start: 10-02-2022 Pneumococcal vaccination Pneumococcal Vaccine (2 - PCV) [facility] Start: 08-30-2022 End: 10-30-2022 Hepatic function 2000 panel - Serum or Plasma HEPATIC FUNCTION PNL Lab Routine Onychomycosis Expected: 08/30/2022, Expires: 10/30/2022 [facility] Work Phone: Comment on above: Expected: 08/30/2022, Expires: 3 Start: 06-28-2022 Influenza vaccination INFLUENZA (#1) [facility] Start: 06-27-2022 End: 08-27-2022 Cobalamin (Vitamin B12) [Mass/volume] in Serum or Plasma VITAMIN B12 BLOOD Lab Routine Vitamin B12 deficiency Expected: 06/27/2022, Expires: 08/27/2022 [facility] Work Phone: Comment on above: Expected: 06/27/2022, Expires: 2 Start: 12-26-2021 COVID-19 VACCINE (3 - Booster for Pfizer series) COVID-19 VACCINE (3 - Booster for Pfizer series) [facility] Start: 12-24-2021 Hemoglobin A1c/Hemoglobin.total in Blood HBA1C [facility] Start: 12-12-2021 Hepatitis C antibody, confirmatory test DILATED RETINAL EXAM [facility] Start: 09-22-2021 COVID-19 VACCINE (3 - Booster for Pfizer series) COVID-19 VACCINE (3 - Booster for Pfizer series) [facility] Start: 09-22-2021 COVID-19 VACCINE (3 - Pfizer series) COVID-19 VACCINE (3 - Pfizer series) [facility] Start: 09-15-2021 BP CONTROLLED (<130/80) BP CONTROLLED (<130/80) [facility] Start: 2021 Hepatitis B Vaccine (1 of 3 - Risk 3-dose series) Hepatitis B Vaccine (1 of 3 - Risk 3-dose series) [facility] Start: 2021 RSV Vaccine (1 - 1-dose 60+ series) RSV Vaccine (1 - 1-dose 60+ series) [facility] Start: 2021 RSV Vaccine (1 - Risk 60-74 years 1-dose series) RSV Vaccine (1 - Risk 60-74 years 1-dose series) [facility] Start: 2011 SHINGRIX VACCINE (1 of 2) SHINGRIX VACCINE (1 of 2) [facility] Start: 05-20-[address] [facility] Start: 05-20-2007 Screening for malignant neoplasm of breast Mammogram Screening [facility] Start: 2006 COLOGUARD (FIT-DNA) COLOGUARD (FIT-DNA) [facility] Start: 2006 Colonoscopy COLONOSCOPY [facility] Start: 2006 COLORECTAL CANCER SCREENING COLORECTAL CANCER SCREENING [facility] Start: [address] COLONOGRAPHY [facility] Start: 2006 FECAL OCCULT BLOOD FECAL OCCULT BLOOD [facility] Start: 2006 Screening for malignant neoplasm of colon [facility] Start: 2006 SIGMOIDOSCOPY SIGMOIDOSCOPY [facility] Start: 2003 PAP TESTING PAP TESTING [facility] Start: 1991 HPV TESTING HPV TESTING [facility] Start: 1991 Screening for malignant neoplasm of cervix HPV Testing [facility] Start: 1982 PAP TESTING PAP TESTING [facility] Start: 1982 Screening for malignant neoplasm of cervix [facility] Start: 1971 3 comp foot exam completed DIABETIC FOOT EXAM [facility] Start: 1971 Diabetic foot examination Diabetic Foot Exam [facility] End: 12-24-2023 CBC panel - Blood by Automated count CBC Lab Routine Controlled type 2 diabetes mellitus without complication, with long-term current use of insulin (HCC) Every 6 months for 12 Occurrences starting 12/24/2022 until 12/24/2023 [facility] Work Phone: Comment on above: Every 6 months for 12 Occurrences starti ng 12/24/2022 until 12/24/2023 End: 12-24-2023 Comprehensive metabolic 2000 panel - Serum or Plasma COMP METABOLIC PANEL Lab Routine Controlled type 2 diabetes mellitus without complication, with long-term current use of insulin (HCC) Every 6 months for 12 Occurrences starting 12/24/2022 until 12/24/2023 [facility] Work Phone: Comment on above: Every 6 months for 12 Occurrences starti ng 12/24/2022 until 12/24/2023 End: 05-08-2025 DBT Breast - bilateral screening ALTHEA SCREENING W CORIN Radiology Routine Encounter for screening mammogram for breast cancer 1 Occurrences starting 04/08/2024 until 05/08/2025 [facility] Work Phone: Comment on above: 1 Occurrences starting 04/08/2024 until 05/08/2025 End: 04-08-2026 DBT Breast - bilateral screening ALTHEA SCREENING W CORIN Radiology Routine Encounter for screening mammogram for breast cancer 1 Occurrences starting 03/09/2025 until 04/08/2026 [facility] Work Phone: Comment on above: 1 Occurrences starting 03/09/2025 until 04/08/2026 ECG COMPLETE ECG COMPLETE ECG Routine Chest pain, unspecified type Ordered: 02/27/[address] [facility] Comment on above: Ordered: 02/27/2024 End: 02-26-2025 Echocardiography ECHO Cardiology Routine Hypoxemia 1 Occurrences starting 02/27/2024 until 02/26/2025 [facility] Work Phone: Comment on above: 1 Occurrences starting 02/27/2024 until 02/26/2025 End: 12-24-2023 Hemoglobin A1c in Blood HGB A1C Lab Routine Controlled type 2 diabetes mellitus without complication, with long-term current use of insulin (HCC) Every 3 months for 24 Occurrences starting 12/24/2022 until 12/24/2023 [facility] Work Phone: Comment on above: Every 3 months for 24 Occurrences starti ng 12/24/2022 until 12/24/2023 Hzv zoster vacc recombinant adjuvanted im njx ZOSTER VACCINE, RECOMBINANT (SHINGRIX) Immunization/Injection Routine Encounter for immunization 1 Occurrences starting 02/27/2024 [facility] Work Phone: Comment on above: 1 Occurrences starting 02/27/2024 End: 12-24-2023 Lipid 1996 panel - Serum or Plasma LIPID PANEL BASIC Lab Routine Controlled type 2 diabetes mellitus without complication, with long-term current use of insulin (HCC) Every 6 months for 12 Occurrences starting 12/24/2022 until 12/24/2023 [facility] Work Phone: Comment on above: Every 6 months for 12 Occurrences starti ng 12/24/2022 until 12/24/2023 LUNG DIFFUSION CAPAC ITY (DLCO) LUNG DIFFUSION CAPACITY (DLCO) PFT Routine Shortness of breath 12/06/2023 2:01 PM EST [facility] Work Phone: LUNG VOLUMES LUNG VOLUMES PFT Routine Shortness of breath 12/06/2023 2:01 PM EST [facility] Work Phone: End: 05-30-2024 ALTHEA SCREENING ALTHEA SCREENING Radiology Routine Encounter for screening mammogram for breast cancer 1 Occurrences starting 05/01/2023 until 05/30/2024 [facility] Work Phone: Comment on above: 1 Occurrences starting 05/01/2023 until 05/30/2024 PFIZER-BIONTECH COVI D-19 VACCINE ( SEASON) AGE 12+ YR PFIZER-BIONTECH COVID-19 VACCINE () AGE 12+ YR Immunization/Injection Routine Encounter for immunization 1 Occurrences starting 02/27/[address] [facility] Comment on above: 1 Occurrences starting 02/27/2024 PT PLAN OF CARE CERTIFICATION PT PLAN OF CARE CERTIFICATION Procedures Routine Benign paroxysmal vertigo of both ears Benign paroxysmal po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 Ordered: 05/23/2023 [facility] Work Phone: Comment on above: Ordered: 05/23/2023 End: 06-27-2023 PVR LEG W/EXC RY[facility] VAS LAB PVR LEG W/EXC RY[facility]AS LAB Vascular Lab Routine Mixed hyperlipidemia 1 Occurrences starting 06/27/2022 until 06/27/2023 [facility] Work Phone: Comment on above: 1 Occurrences starting 06/27/2022 until 06/27/2023 RSV VACCINE, BIVALEN T (ABRYSVO) RSV VACCINE, BIVALENT (ABRYSVO) Immunization/Injection Routine Encounter for immunization 1 Occurrences starting 02/27/[address] [facility] Comment on above: 1 Occurrences starting 02/27/2024 End: 06-22-2023 Screening mammography bi 2-view breast inc cad ALTHEA SCREENING Radiology Routine Encounter for screening mammogram for breast cancer 1 Occurrences starting 05/23/2022 until 06/22/2023 [facility] Work Phone: Comment on above: 1 Occurrences starting 05/23/2022 until 06/22/2023 SPIROMETRY - BASELIN E AND POST DILATOR SPIROMETRY - BASELINE AND POST DILATOR PFT Routine Shortness of breath 12/06/2023 2:01 PM EST [facility] Work Phone: End: 02-26-2025 STRESS ECHO DOBUTAMINE STRESS ECHO DOBUTAMINE Cardiology Routine Chest pain, unspecified type SOBOE (shortness of breath on exertion) 1 Occurrences starting 02/27/2024 until 02/26/[address] [facility] Comment on above: 1 Occurrences starting 02/27/2024 until 02/26/2025 End: 12-24-2023 Thyrotropin [Units/volume] in Serum or Plasma TSH BLD Lab Routine Controlled type 2 diabetes mellitus without complication, with long-term current use of insulin (HCC) Every 3 months for 24 Occurrences starting 12/24/2022 until 12/24/2023 [facility] Work Phone: Comment on above: Every 3 months for 24 Occurrences starti ng 12/24/2022 until 12/24/2023 End: 02-22-2024 US EXTREMITY MASS/FLUID COLLECTION LEFT US EXTREMITY MASS/FLUID COLLECTION LEFT Radiology Routine Subcutaneous nodules 1 Occurrences starting 01/23/2023 until 02/22/2024 [facility] Work Phone: Comment on above: 1 Occurrences starting 01/23/2023 until 02/22/2024 [facility] Immunizations Immunization Date Immunization Notes Care Provider Drea ohara 08-09-2023 pneumococcal Conjuga te, unspecified formulation Jaime Spencer VETERANS' COORDINATOR.ACADEMIC SPECIALIST Work Phone: [facility] Work Phone: 08-09-2023 influenza, injectabl e, quadrivalent, contains preservative Jaime Spencer VETERANS' COORDINATOR.ACADEMIC SPECIALIST Work Phone: [facility] Work Phone: 08-09-2023 pneumococcal (PCV20) vaccine, 20 valent (PREVNAR 20) Jaime Sweets VETERANS' COORDINATOR.ACADEMIC SPECIALIST Work Phone: [facility] Work Phone: 08-09-2023 influenza virus vacc ine, unspecified formulation Jaime Spencer VETERANS' COORDINATOR.ACADEMIC SPECIALIST Work Phone: [facility] 10-02-2021 influenza, injectabl e, quadrivalent, contains preservative Lala Older VETERANS' COORDINATOR.PORTFOLIO STRATEGIST Work Phone: [facility] 10-02-2021 pneumococcal polysaccharide vaccine, 23 valent Lala Older VETERANS' COORDINATOR.PORTFOLIO STRATEGIST Work Phone: [facility] 10-02-2021 tetanus toxoid, redu edith diphtheria toxoid, and acellular pertussis vaccine, adsorbed Lala Older VETERANS' COORDINATOR.PORTFOLIO STRATEGIST Work Phone: [facility] 10-02-2021 influenza virus vacc ine, unspecified formulation Lala Older VETERANS' COORDINATOR.PORTFOLIO STRATEGIST Work Phone: [facility] 06-23-2021 COVID-19 vaccine, ag e 12+ yr ([employer] - PURPLE TOP) Lala Older VETERANS' COORDINATOR.PORTFOLIO STRATEGIST Work Phone: [facility] 09-15-2020 influenza, injectabl e, quadrivalent, contains preservative Lala Older VETERANS' COORDINATOR.PORTFOLIO STRATEGIST Work Phone: [facility] 11-22-2009 novel influenza-H1N1 -09, preservative-free, injectable Lala Harrison VETERANS' COORDINATOR.PORTFOLIO STRATEGIST Work Phone: [facility] Payers Date Payer Category Payer Self-pay 2022 Medicaid [id number] 2013 Medicaid [facility] [facility] [id number] 2013-Present [phone] [address] [place] [address] Medicaid [id number] 2013 Medicaid [id number] 1960 Unknown [id number] Unknown [id number] Unknown [id number] Unknown [id number] Social History Date Type Detail Facility Start: 12-07-2020 End: 07-09-2023 Tobacco smoking status NHIS Never smoked tobacco [facility] Start: 10-02-2021 End: 02-22-2023 Alcohol intake Current non-drinker of alcohol (finding) [facility] Start: 12-07-2020 History SDOH Alcohol Frequency [address] [facility] Start: 12-07-2020 History SDOH Social Connections Phone [address] [facility] Start: 12-07-2020 History SDOH Social Connections Living [address] [facility] Start: 12-07-2020 History SDOH Physica l Activity DPW [address] [facility] Start: 12-07-2020 History SDOH Stress 4 [facility] Start: 12-07-2020 Education [address] [facility] Start: 1960 Sex Assigned At Not on file [facility] Start: 05-12-2022 End: 07-10-2022 Exposure to SARS-CoV-2 (event) Not sure [facility] Start: 05-28-2022 History SDOH Housing Unable to Pay [address] [facility] Start: 12-07-2020 End: 01-23-2023 Tobacco use and exposure Smokeless tobacco non-user [facility] Work Phone: Start: 1960 Sex Assigned At Female [facility] Start: 05-28-2022 End: 03-06-2023 History of Social function [facility] Start: 05-28-2022 End: 03-06-2023 Social connection and isolation panel [facility] Start: 09-28-2012 End: 08-17-2025 In a typical week, how many times do you talk on the telephone with family, friends, or neighbors? Patient refused [facility] Are you now , , , , never or living with a partner? Refused [facility] (I/We) worried desire er (my/our) food would run out before (I/we) got money to buy more. DK or Refused [facility] Start: 01-07-2023 Gender identity Identifies as female gender (finding) [facility] Start: 01-07-2023 Sexual orientation Heterosexual (fin ding) [facility] Do you feel stress - tense, restless, nervous, or anxious, or unable to sleep at night because your mind is troubled all the time - these days [OSQ] Rather much [facility] Tobacco smoking status [facility] Start: 01-24-2024 End: 04-16-2025 Alcohol intake Ex-drinker (finding) [facility] Start: 08-31-2020 Sex Female (finding) [facility] Medical Equipment Procedure Code Equipment Code Equipment Original Text Equipment Identifier Dates [id number], [id number], [id number], [id number], [id number], [id number], [id number], [id number], [id number], [id number], [id number], [id number], [id number] Start: 07-28-2021 End: 03-30-2025 Comment on above: Test blood sugar(s) 3 times daily. Dx: Type 2 DM - Controlled E11.9 Insulin: Yes 1 Each twice daily. 1 Each two times a d ay. FREESTYLE 28G LANCETS, 0 Refill(s) Start: 07-09-2023 FREESTYLE LANCET S 28 GAUGE EACH, 0 Refill(s) Start: 07-09-2023 FREESTYLE 28G LANCETS, 0 Refill(s) Start: 07-09-2023 FREESTYLE LANCET S 28 GAUGE EACH, 0 Refill(s) Start: 07-09-2023 Functional Status Date Assessment Result Facility 08-17-2025 [facility] 08-17-2025 Functional Status Independent [facility] 07-15-2023 Functional Status ID band on, Allergy Band on, Call device within reach, Bed in low position, Wheels locked, Upper/Half-Length side-rails up, Phone within reach, personal items within reach, Bedside Cart Locked, Visitor at bedside [facility] 06-29-2023 Functional Status Independent [facility] 06-29-2023 Functional Status Standard Safet y ID band on, Allergy Band on, Call device within reach, Bed in low position, Safety level maintained [facility] 06-27-2022 Are you deaf, or do you have serious difficulty hearing No 06/27/2022 5:36 PM Monik Daniel MD [facility] 06-27-2022 Are you blind, or do you have serious difficulty seeing, even when wearing glasses No 06/27/2022 5:36 PM Monik Daniel MD No [facility] 06-27-2022 Do you have serious difficulty walking or climbing stairs No 06/27/2022 5:36 PM Monik Daniel MD [facility] 06-27-2022 Do you have difficul ty dressing or bathing No 06/27/2022 5:36 PM Monik Daniel MD [facility] 06-27-2022 Because of a physica l, mental, or emotional condition, do you have difficulty doing errands alone such as visiting a physician's office or shopping No 06/27/2022 5:36 PM Monik Daniel MD No [facility] Mental Status Date Assessment Result Facility 08-17-2025 Mental Status Orientation Oriented x 4 [facility] 07-15-2023 Mental Status Oriented x 4 [facility] 06-29-2023 Mental Status Orientation Oriented x 4 [facility] 06-29-2023 Mental Status [facility] 06-27-2022 Because of a physica l, mental, or emotional condition, do you have serious difficulty concentrating, remembering, or making decisions No 06/27/2022 5:36 PM Monik Daniel MD No [facility] Clinical Notes 10-15-2006 to 09-03-2025 Note Date & Type Note Facility 09-03-2025 Note HNO ID: [id number] Author: LALA HARRISON APRN.PORTFOLIO STRATEGIST Service: ? Author Type: Nurse Practitioner Type: Progress Notes Filed: 09/06/2025 12:56 Note Text: CC: Patient presents with: Recheck: BP follow up HPI Irma Stewart is a 65 year old female who presents today for BP follow up. Recently had metoprolol increased to better manage this. Recording using [employer] software for draft documentation of the visit was discussed with the patient/authorized commercial sales representative; all questions welcomed and answered. Patient/authorized commercial sales representative agreed to proceed Irma Stewart is a 65-year-old female with a history of HTN, anxiety, and depression, presenting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 Signature: ASHLEY MARTIN MD 08/17/2025 17:23:07 [facility]09-23-2025 NoteHNO ID: [id number] Author: MONIK HACKETT MD Service: ? Author [...] in 2009. She describes the fall as "hard" and notes that the left knee took [...] both knees, with the right knee being "loaded with osteoarthritis." She used to receive Synvisc injections in [...] except for Bill. She was hospitalized in [place] for three weeks on the psychiatric guidry and learned to talk about her issues rather than suppress them. She reports difficulty sleeping due to stress and ineffective sleep medication prescribed by Lala Cedillo or Sergio Spencer. She is currently taking Seroquel for depression but plans to see a new doctor in [place] on August 16 due to dissatisfaction with her current care at the [facility]. Irma has been trying to lose [...] strip DULoxetine (CYMBALTA) 40 mg cpDR Insulin [place], Disposable, (BD ULTRAFINE III MINI PEN) 31 gauge x 3/16" budesonide-formoterol (SYMBICORT) 160-4.5 mcg/actuation inhaler albuterol HFA (PROVENTIL HFA, VENTOLIN HFA) 90 mcg/actuation inhaler PULSE OXIMETER [facility] omeprazole (PRILOSEC) 20 mg capsule DULoxetine [...] mg tablet Lancets div (more content not included)...[facility]09-23-2025 NoteHNO ID: [id number] Author: MARC SPEARS Tech Service: ? 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 Nidia Silverio LPN [facility]08-18-2025 Miscellaneous Notes* Telephone Encounter - Nidia Silverio LPN - 06/14/2025 5:49 PM EDT Patient needs to contact office. Nidia Silverio LPN documented in this encounterUniversity [facility]als [facility]25 Telephone encounter Note * Telephone Encounter - Gely Mckeon RN - 05/18/2025 1:58 PM EDT The patient has been identified by name [...] with breakfast. Take with chaparro Mckeon RN [facility]07-22-2025 Miscellaneous Notes* Telephone Encounter - Gely Mckeon RN - 05/18/2025 1:58 PM EDT The patient has been identified by name [...] with chaparro Mckeon RN documented in this encounterUniversity [facility]als St. [facility]06-30-2025 Telephone encounter Note * Telephone Encounter - Rhona Lai RN - 04/26/2025 8:30 AM EDT The patient has been identified by name [...] Lai RN April 26, 2025 8:[address] [facility]06-30-2025 Miscellaneous Notes* Telephone Encounter - Rhona Lai RN - 04/26/2025 8:30 AM EDT The patient has been identified by name [...] 26, 2025 8:30 AM documented in this encounterUniversity Hospitals St. [facility]06-20-2025 Instructions* Patient Instructions* Lala Harrison APRN.PORTFOLIO STRATEGIST - 04/16/2025 10:38 AM EDT - Have [...] discuss any medication adjustments. documented in this encounterUniversity Hospitals St. [facility]06-20-2025 NoteHNO ID: [id number] Author: LALA HARRISON APRN.MICHAEL Service: ? Author Type: Nurse Practitioner Type: [...] full history difficult to obtain. Recording using [employer] software for draft documentation of the visit was discussed with the patient/authorized commercial sales representative; all questions welcomed and answered. Patient/authorized commercial sales representative agreed to proceed Paresthesias: - Irma reports "buzzing" and tingling sensations in the body, legs, [...] found Weight Gain: - Irma reports feeling "bloated" and experiencing weight gain with new stretch long. States all her weight is in her belly which makes her think it is her cortisol level. - Decreased appetite, eating minimally due to stress. DM: - Blood sugar levels described as "all over the place," sometimes reaching 200 mg/dL despite not eating. [...] with the last 8 months described as "hell." Psychiatric Concerns: - Irma reports feeling unable to relax, with tension in the neck and a sense of being in "fight or flight" mode. - Describes feeling "crazy" and experiencing visual hallucinations. Saw a jelly [...] Scheduled to see a new psychiatrist at [facility] in May. Chronic Stress: - Irma reports [...] without mention of v (more content not included)...[facility]06-20-2025 History of Present illness Narrative* Yasmine, JENN Reeves.PORTFOLIO STRATEGIST - 04/16/2025 10:32 AM EDT CC: Patient presents with: Recheck: Follow up multiple concerns HPI Irma Stewart is a 65 year old female who presents today for multiple concerns. Has had these concerns ongoing for quite a while and has bee worked up previously. With her mental health and difficulty staying on topic, getting full history difficult to obtain. Recording using [employer] software for draft documentation of the visit was discussed with the patient/authorized commercial sales representative; all questions welcomed and answered. Patient/authorized commercial sales representative agreed to proceed Paresthesias: - Irma reports "buzzing" and tingling sensations in the body, legs, [...] found Weight Gain: - Irma reports feeling "bloated" and experiencing weight gain with new stretch long. States all her weight is in her belly which makes her think it is her cortisol level. - Decreased appetite, eating minimally due to stress. DM: - Blood sugar levels described as "all over the place," sometimes reaching 200 mg/dL despite not eating. - Believes diabetes may be stress-induced; family history of diabetes. - Has an upcoming appointment with Dr. Hackett to discuss this further Chronic Pain: - Irma reports a pinched nerve in the right back since COVID- lockdown. - PMHx of degenerative disc disease and sciatica, with significant pain and limited mobility in theee. - Pain has been ongoing x5 years, worsening over the past 2 years, with the last 8 months describedas "hell." Psychiatric Concerns: - Irma reports feeling unable to relax, with tension in the neck and a sense of being in "fight or flight" mode. - Describes feeling "crazy" and experiencing visual hallucinations. Saw a jelly fish on the wall asreported by nursing. States her psychiatrist is aware of all of this. - Reports easy bruising and delayed healing of cuts. - Current psychiatric care with [facility]; negative experience reported - Taking Depakote and Seroquel; recent issues with medication management and side effects. - Scheduled to see a new psychiatrist at [facility] in May. Chronic Stress: - Irma reports significant chronic stress due to multiple family losses, including the recent of her stepfather. - Describes a history of being stalked by her brother, leading to legal issues and ongoing stress. - Reports feeling isolated, with no friends and limited family support. - Expresses frustration with being unable to see her grandchildren and feeling misunderstood by herfamily. REVIEW OF SYSTEMS General: no fevers, no [...] vaginal ALLERGIES Betadine [Povidone-Iodine], Glimepiride, Haldol [Haloperidol], [place], Metformin, Neurontin [Gabapentin], Penicillins, Tylenol [Acetaminophen], and Victoza [Liraglutide] MEDICATIONS Blood-Glucose Meter monitoring kit Glucose Meter of Choice - Kit - Dx: Type 2 DM - Controlled E11.9Check sugars 3 times a day blood sugar [...] four times a day as needed for anxiety(take at bedtime to help with sleep and [...] 100 MILLIGRAMS Oral for 30 Days Insulin [place], Disposable, (BD ULTRAFINE III MINI PEN) 31 gauge x 3/16" 1 Each two times a day. potassium chloride (K-TAB) 10 mEq tablet Take 1 tablet by mouth daily with breakfast. Take with lasix Lancets Test blood sugar(s) 3 times daily. Dx: Type 2 DM - Controlled E11.9 Insulin: Yes triamcinolone acetonide (KENALOG) 0.5 % cream Apply 1 application to affected area two times a day.For rash/itching. Apply sparingly. Avoid face/skin fold. budesonide-formoterol (SYMBICORT) 160-4.5 mcg/actuation inhaler Inhale 2 Puffs as instructed two times a day. albuterol HFA (PROVENTIL HFA, VENTOLIN HFA) 90 mcg/actuation inhaler Inhale 2 Puffs as instructed every 4 hours as needed. PULSE OXIMETER [facility] Use as needed to monitor oxygen [...] Content: preoccupations with family concerns, then her "buzzing" in her body, back to family issues, then back to her "buzzing" Intelligence level: normal Insight: fair in appointment [...] - Bilateral tinnitus with a sensation of "buzzing" in the ears. - Otoscopic examination revealed [...] as high as 200 mg/dL despite minimal oralintake. - Discussed the impact of chronic stress [...] Ordered cortisol level to evaluate for possible Phoenix's syndrome; . 6. Paresthesia of bilateral legs (R20.2) - Bilateral leg paresthesia described as "tingling" and "buzzing." - Ordered comprehensive blood work to investigate [...] - Patient has an upcoming appointment at [facility] in May for further psychiatric evaluation but needs to continue to see her current psychiatrist until then. - Reviewed concept of neurochemical imbalance [facility] depression/anxiety, treatment options and benefits of counseling in combination with medication. Also reviewed benefits of sleep hygeine, diet and exercise - Instructed patient to contact office or aarmk-me-kwbg after-hours promptly should condition worsen or any new symptoms appear. - Counseling Center [facility] and after hours crisis line Prescription instructions reviewed with patient as applicable. Potential red flag symptoms discussed with the patient. Reviewed appropriate action plan to take if red flag symptoms occur. Patient agreeable to treatment plan. Lala Harrison APRN.CNP documented in this encounterUniversity Hospitals St. [facility]06-16-2025 Telephone encounter Note * Telephone Encounter - Zaira Garcia RN - 04/12/2025 4:31 PM EDT Patient calls to request a sooner appointment to be seen for generalized muscle weakness and irritability. Patient reports that she is under a lot of stress with family members passing away (seven inthe past year) and has been under the care of psychiatry who tells her it is probably related to anelevated cortisol level. Nurse triage recommends see provider within 2 weeks for chronic fatigue/weakness. Patient is scheduled for next week to see Dr. Hackett. Requests appt this week. Scheduled only available appt. Patient requests to keep the appt on 04/20/2025 and will cancel it after seeing Dr. Hackett unless shefeels she needs to keep it. Zaira Garcia RN [facility]06-16-2025 Miscellaneous Notes* Telephone Encounter - Zaira Garcia RN - 04/12/2025 4:31 PM EDT Patient calls to request a sooner appointment to be seen for generalized muscle weakness and irritability. Patient reports that she is under a lot of stress with family members passing away (seven inthe past year) and has been under the care of psychiatry who tells her it is probably related to anelevated cortisol level. Nurse triage recommends see provider within 2 weeks for chronic fatigue/weakness. Patient is scheduled for next week to see Dr. Hackett. Requests appt this week. Scheduled only available appt. Patient requests to keep the appt on 04/20/2025 and will cancel it after seeing Dr. Hackett unless shefeels she needs to keep it. Zaira Garcia RN documented in this encounterUniversity Hospitals St. [facility]06-09-2025 Telephone encounter Note * Telephone Encounter - Lisa Helm MA - 04/05/2025 3:46 PM EDT Left message for return call. [facility]06-09-2025 Miscellaneous Notes* Telephone Encounter - Lisa Helm MA - 04/05/2025 3:46 PM EDT Left message for return call. * Telephone Encounter - Lala Harrison APRN.CNP - 04/01/2025 12:49 PM EDT Meds sent as requested but this needs [...] any needed changes. Thank you Lala Harrison APRN.CNP * Telephone Encounter - Rhona Lai RN - 03/30/2025 11:01 AM EDT Patient's significant other calls and states that [facility] told him that they cannot get a hold of [facility] due to phones being too busy. Significant other asking if medications can be sent to [facility] [place]? Patient is need new meter and test [...] 30, 2025 11:05 AM documented in this encounterUniversity Hospitals St. [facility]06-[facility]-2025 Telephone encounter Note * Telephone Encounter - Lala Harrison APRN.CNP - 04/01/2025 12:49 PM EDT Meds sent as requested but this needs [...] any needed changes. Thank you Lala Harrison APRN.CNP [facility]06-03-2025 Telephone encounter Note* Telephone Encounter - Rhona Lai RN - 03/30/2025 11:01 AM EDT Patient's significant other calls and states that [facility] told him that they cannot get a hold of [facility] due to phones being too busy. Significant other asking if medications can be sent to [facility] Natal[place]? Patient is need new meter and test [...] March 30, 2025 11:05 AM [facility]05-29-2025 Telephone encounter Note* Telephone Encounter - Lala Harrison APRN.CNP - 03/25/2025 5:13 PM EDT PDMP website checked and validated. All prescriptions have been APPROPRIATELY filled. No suspiciousactivity was identified. 03/25/2025 by Lala Harrison APRN.CNP [facility]05-29-2025 Miscellaneous Notes* Telephone Encounter - Lala Harrison APRN.CNP - 03/25/2025 5:13 PM EDT PDMP website checked and validated. All prescriptions have been APPROPRIATELY filled. No suspiciousactivity was identified. 03/25/2025 by Lala Harrison APRN.CNP * Telephone Encounter - Mary Lou Pablo LPN - 03/24/2025 4:17 PM EDT Patient calling switching pharmacy from [facility] to [facility] pharmacy. She could not transfer the [...] 24, 2025 4:20 PM documented in this encounterUniversity Hospitals St. [facility]05-28-2025 Telephone encounter Note * Telephone Encounter - Mary Lou Pablo LPN - 03/24/2025 4:17 PM EDT Patient calling switching pharmacy from [facility] to [facility] pharmacy. She could not transfer the [...] Pablo LPN March 24, 2025 4:[address] [facility]05-13-2025 NotePatient Outreach (INTMWS) IRMA STEWART ([id number]) 1960 F Date Time Provider Department 03/09/25 MONIK HACKETT INTMWS During your visit today, [...] NEURONTIN (GABAPENTIN) 08/01/2020 5 - Intolerance Comments: "felt poorly" PENICILLINS 03/13/2007 16 - Unknown Comments: Okay to take amoxil TYLENOL (ACETAMINOPHEN) 07/14/2020 5 - Intolerance VICTOZA (LIRAGLUTIDE) 08/01/2020 8 - GI Upset Date Reviewed: 11/10/2024 Reviewed by: Amira Fisher LPN - Fully Assessed Visit Diagnosis:Encounter for screening mammogram for breast cancer [Z12.31] Order(s):[facility] SCREENING [facility] CORIN [[id number]] Order #: [id number] FUTURE Prescriptions as of 04/09/2025 - Blood-Glucose [...] MILLIGRAMS Oral for 30 Days - Insulin [place], Disposable, (BD ULTRAFINE III MINI PEN) 31 gauge x 3/16" 1 Each two times a day. - [...] mixed anxiety disorders [ (more content not included)...[facility]05-11-2025 Telephone encounter Note* Telephone Encounter - Gely Rick - 03/07/2025 2:38 PM EDT 3 attempts made and my chart sent [facility]05-11-2025 Miscellaneous Notes* Telephone Encounter - Gely Rick - 03/07/2025 2:38 PM EDT 3 attempts made and my chart sent * Telephone Encounter - Rhona Thomas - 03/06/2025 9:39 AM EDT ATC but no answer and voicemail full. MyChart message sent. Rhona Thomas * Telephone Encounter - Rhona Thomas - 03/01/2025 10:04 AM EDT ATC patient but no answer and voicemail is full. Should patient call, please schedule sleep medicine consult and notify patient that she can discuss the stress echo with her PCP at her next office visit on 03/19/25. * Telephone Encounter - Jaime Spencer APRN.ACADEMIC SPECIALIST - 02/26/2025 3:44 PM EDT Stress test was ordered a year ago by me, not completed due to insurance per record review in [employer]. Sleep medicine order was from Dr. Camila Johns. I placed an order or sleep medicine consult.Please schedule Since it has been a year since the stress test was ordered recommend she review the need for that at her visit with Monik Hackett MD this month. * Telephone Encounter - Gely Mckeon RN - 02/26/2025 3:36 PM EDT Patient requesting orders for: 1) Referral for Sleep Medicine. (Pt reports an order was previously placed, but this nurse unable to locate). 2) Updated order for Stress Echo Dobutamine. Previous order . Please call patient with an update. Gely Mckeon RN documented in this encounterUniversity Hospitals St. [facility]05-10-2025 Telephone encounter Note * Telephone Encounter - Rhona Thomas - 03/06/2025 9:39 AM EDT ATC but no answer and voicemail full. Qoostart message sent. Rhona Thomas [facility]05-05-2025 Telephone encounter Note* Telephone Encounter - Rhona Thomas - 03/01/2025 10:04 AM EDT ATC patient but no answer and voicemail is full. Should patient call, please schedule sleep medicine consult and notify patient that she can discuss the stress echo with her PCP at her next office visit on 03/19/25. [facility]05-02-2025 Telephone encounter Note* Telephone Encounter - Jaime Spencer APRN.CNS - 02/26/2025 3:44 PM EDT Stress test was ordered a year ago by me, not completed due to insurance per record review in [facility]. Sleep medicine order was from Dr. Camila Johns. I placed an order or sleep medicine consult.Please schedule Since it has been a year since the stress test was ordered recommend she review the need for that at her visit with Monik Hackett MD this month. [facility]05-02-2025 Telephone encounter Note* Telephone Encounter - Gely Mckeon RN - 02/26/2025 3:36 PM EDT Patient requesting orders for: 1) Referral for Sleep Medicine. (Pt reports an order was previously placed, but this nurse unable to locate). 2) Updated order for Stress Echo Dobutamine. Previous order . Please call patient with an update. Gely Mckeon RN [facility]04-29-2025 Telephone encounter Note* Telephone Encounter - Helene Cisneros RN - 02/23/2025 10:38 AM EDT The patient has been identified by name [...] Cisneros RN February 23, 2025 10:[address] [facility]04-29-2025 Miscellaneous Notes* Telephone Encounter - Helene Cisneros RN - 02/23/2025 10:38 AM EDT The patient has been identified by name [...] 23, 2025 10:38 AM documented in this encounterUniversity Hospitals St. [facility]04-14-2025 Telephone encounter Note * Telephone Encounter - Gely Mckeon RN - 02/08/2025 4:20 PM EDT The patient has been identified by name [...] a day with meals. Gely Mckeon RN [facility]04-14-2025 Miscellaneous Notes* Telephone Encounter - Gely Mckeon RN - 02/08/2025 4:20 PM EDT The patient has been identified by name [...] meals. Gely Mckeon RN documented in this encounterUniversity Hospitals St. [facility]04-07-2025 Telephone encounter Note * Telephone Encounter - Marc Ledezma MA - 02/01/2025 1:25 PM EDT Script filled by psych. Marc Ledezma MA [facility]04-07-2025 Miscellaneous Notes* Telephone Encounter - Marc Ledezma MA - 02/01/2025 1:25 PM EDT Script filled by psych. Marc Ledezma MA * Telephone Encounter - Lala Harrison APRN.PORTFOLIO STRATEGIST - 01/22/2025 2:39 PM EDT This is more then what is typically prescribed in primary care. Looks like she has been getting this through a Conrad Durbin CNP and Fiordaliza Montez APRN. Needs to contact these prescribers for those refills. Others refilled as requested. Thank you Lala Harrison APRN.CNP * Telephone Encounter - Yudith Rodriguez LPN - 01/20/2025 4:22 PM EDT Called and spoke to patient is taking a 40mg and 60mg tab for a total of 100mg a day. Follow up appointment with Marco A on 02/05/25 Yudith Rodriguez LPN January 20, 2025 4:23 PM * Telephone Encounter - Lala Harrison APRN.CNP - 01/20/2025 11:34 AM EDT Please verify duloxetine prescription that is needed. The one that was added was 5 years old, prescribed by unknown provider and a different dosage of currently prescribed. I went ahead and removed it to decrease confusion. Thank you Lala Harrison APRN.CNP * Telephone Encounter - Mary Lou Pablo LPN - 01/20/2025 11:03 AM EDT The patient has been identified by name [...] 20, 2025 11:06 AM documented in this encounterUniversity Hospitals St. [facility]03-28-2025 Telephone encounter Note * Telephone Encounter - Lala Harrison APRN.CNP - 01/22/2025 2:39 PM EDT This is more then what is typically prescribed in primary care. Looks like she has been getting this through a Conrad Durbin CNP and Fiordaliza Montez APRN. Needs to contact these prescribers for those refills. Others refilled as requested. Thank you Lala Harrison APRN.CNP [facility]03-26-2025 Telephone encounter Note* Telephone Encounter - Yudith Rodriguez LPN - 01/20/2025 4:22 PM EDT Called and spoke to patient is taking a 40mg and 60mg tab for a total of 100mg a day. Follow up appointment with Marco A on 02/05/25 Yudith Rodriguez LPN January 20, 2025 4:[address] [facility]03-26-2025 Telephone encounter Note* Telephone Encounter - Lala Harrison APRN.CNP - 01/20/2025 11:34 AM EDT Please verify duloxetine prescription that is needed. The one that was added was 5 years old, prescribed by unknown provider and a different dosage of currently prescribed. I went ahead and removed it to decrease confusion. Thank you Lala Harrison APRN.CNP [facility]03-26-2025 Telephone encounter Note* Telephone Encounter - Mary Lou Pablo LPN - 01/20/2025 11:03 AM EDT The patient has been identified by name [...] Pablo LPN January 20, 2025 11:[address] [facility]03-10-2025 Telephone encounter Note* Telephone Encounter - Lisa Helm MA - 01/04/2025 3:12 PM EDT Left message for return call. [facility]03-10-2025 Miscellaneous Notes* Telephone Encounter - Lisa Helm MA - 01/04/2025 3:12 PM EDT Left message for return call. * Telephone Encounter - Jaime Spencer APRN.CNS - 01/04/2025 12:53 PM EDT Can send refill for 100 mg until seen by psychiatry. Rx to RA today. This has been filled by psychiatry previously, appears may have not been taking for a period of time. * Telephone Encounter - Helene Cisneros RN - 01/04/2025 10:40 AM EDT Significant other, Get, phoned to request refill on Quetiapine 100 mg daily at hs. Advised thisRx was changed to 50 mg daily at hs. Get states patient has been taking 100 mg daily, states "she needs 100 mg." Darron Andrade changed the dose at appt on 11/10/24. Get thinks this is an error, states patient has been taking 100 mg for a long time. Please advise and phone Get with reply. documented in this encounterUniversity Hospitals St. [facility]03-10-2025 Telephone encounter Note * Telephone Encounter - Jaime Spencer APRN.CNS - 01/04/2025 12:53 PM EDT Can send refill for 100 mg until seen by psychiatry. Rx to RA today. This has been filled by psychiatry previously, appears may have not been taking for a period of time. [facility]03-10-2025 Telephone encounter Note* Telephone Encounter - Helene Cisneros RN - 01/04/2025 10:40 AM EDT Significant other, Get, phoned to request refill on Quetiapine 100 mg daily at hs. Advised thisRx was changed to 50 mg daily at hs. Get states patient has been taking 100 mg daily, states "she needs 100 mg." Darron Andrade changed the dose at appt on 11/10/24. Get thinks this is an error, states patient has been taking 100 mg for a long time. Please advise and phone Get with reply. [facility]03-10-2025 Telephone encounter Note* Telephone Encounter - Helene Cisneros RN - 01/04/2025 10:36 AM EDT The patient has been identified by name [...] Cisneros RN January 04, 2025 10:[address] [facility]03-10-2025 Miscellaneous Notes* Telephone Encounter - Helene Cisneros RN - 01/04/2025 10:36 AM EDT The patient has been identified by name [...] 04, 2025 10:39 AM documented in this encounterUniversity Hospitals St. [facility]02-10-2025 Telephone encounter Note * Telephone Encounter - Zaira Garcia RN - 12/07/2024 10:00 AM EST The patient has been identified by name [...] Garcia RN December 07, 2024 10:[address] [facility]02-10-2025 Miscellaneous Notes* Telephone Encounter - Zaira Garcia RN - 12/07/2024 10:00 AM EST The patient has been identified by name [...] 07, 2024 10:00 AM documented in this encounterUniversity Hospitals St. [facility]02-04-2025 Telephone encounter Note * Telephone Encounter - Gely Mckeon RN - 12/01/2024 3:55 PM EST Patient calling in to states she is "pretty sure" she has a pinched nerve in her back. Reports "my whole body is tingling". Reports severe burning pain down the outside of both of her legs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 - 04/29/2024 1:30 PM EDT Images from the original note were not included. Pulmonary Medicine Patients name: Irma Stewart PCP: Monik Hackett MD CC: follow-up hypoxemia HPI: Irma Stewart is a 64 year old female has a past medical history never smoker, morbid obesity,Allergic rhinitis, bipolar disorder, anxiety disorder with panic [...] difficult to exercise d/t SOB. The few daysshe used the Symbicort, she noted improvement in [...] Comment:Diarrhea Haldol [Haloperidol] Other: See Comments Comment:Headache/hallucinations [place] Other: See Comments Comment:Hallucinations Metformin Diarrhea Neurontin [Gabapent* Intolerance Comment:"felt poorly" Penicillins Unknown Comment:Okay to take amoxil Tylenol [...] as other medications prescribed for you. Read thedirections carefully, and ask your doctor or other [...] Take 1 tablet by mouth twice weekly [id number], then decrease to 1 tablet weekly. ferrous sulfate 325 mg (65 mg iron) tablet Take 1 tablet by mouth two times a day with meals. Insulin [place] (Disposable) 31 gauge x 3/16" Commonly known as: BD Ultrafine III Mini [...] total 175 mg twice daily. [facility] Use as needed to monitor oxygen [...] as other medications prescribed for you. Read thedirections carefully, and ask your doctor or other [...] 04/29/2024 Time: 3:53 PM documented in this encounterUniversity Hospitals St. [facility]07-03-2024 Telephone encounter Note * Telephone Encounter - Lala Harrison APRN.CNP - 04/29/2024 10:58 AM EDT PDMP website checked and validated. All prescriptions have been APPROPRIATELY filled. No suspiciousactivity was identified. 04/29/2024 by Lala Harrison APRN.CNP [facility]07-03-2024 Miscellaneous Notes* Telephone Encounter - Lala Harrison APRN.CNP - 04/29/2024 10:58 AM EDT PDMP website checked and validated. All prescriptions have been APPROPRIATELY filled. No suspiciousactivity was identified. 04/29/2024 by Lala Harrison APRN.PORTFOLIO STRATEGIST * Telephone Encounter - Anupama Schwartz LPN - 04/28/2024 7:16 AM EDT Prescription Refill Information The patient has been [...] 28, 2024 7:16 AM documented in this encounterUniversity Hospitals St. [facility]07-02-2024 Telephone encounter Note * Telephone Encounter - Anupama Schwartz LPN - 04/28/2024 7:17 AM EDT Prescription Refill Information The patient has been [...] Schwartz LPN April 28, 2024 7:[address] [facility]07-02-2024 Miscellaneous Notes* Telephone Encounter - Anupama Schwartz LPN - 04/28/2024 7:17 AM EDT Prescription Refill Information The patient has been [...] 28, 2024 7:17 AM documented in this encounterUniversity Hospitals St. [facility]07-02-2024 Telephone encounter Note * Telephone Encounter - Anupama Schwartz LPN - 04/28/2024 7:16 AM EDT Prescription Refill Information The patient has been [...] Schwartz LPN April 28, 2024 7:[address] [facility]06-13-2024 Telephone encounter Note* Telephone Encounter - Brea Root OCCA - 04/09/2024 7:41 AM EDT Prescription Refill Information The patient has been [...] FRANCISCO Broderick April 09, 2024 7:[address] [facility]06-13-2024 Miscellaneous Notes* Telephone Encounter - Brea Root OCCA - 04/09/2024 7:41 AM EDT Prescription Refill Information The patient has been [...] 09, 2024 7:41 AM documented in this encounterUniversity Hospitals St. [facility]05-21-2024 Telephone encounter Note * Telephone Encounter - Lana Mckenzie LPN - 03/17/2024 4:19 PM EDT Patient aware. Patient is going to have phone number change and will call clinic with new number. Lana Mckenzie LPN [place] [id number] Miscellaneous Notes* Telephone Encounter - Lana Mckenzie LPN - 03/17/2024 4:19 PM EDT Patient aware. Patient is going to have phone number change and will call clinic with new number. Lana Mckenzie LPN * Telephone Encounter - Jaime Spencer APRN.CNS - 03/17/2024 4:11 PM EDT ok * Telephone Encounter - Amira Fisher LPN - 03/17/2024 3:04 PM EDT Spoke with patient and she would like to try the low-dose paroxetine to see if that would help. Shedoesn't want to try the gabapentin due to side effects. Also patient has requested a refill on the Lantus. Prescription is pending. * Telephone Encounter - Jaime Spencer APRN.CNS - 03/17/2024 1:52 PM EDT Please let Irma Stewart know. Can consider low-dose paroxetine or gabapentin for hot flashes if she would like. * Telephone Encounter - Chloe Booker LPN - 03/17/2024 8:39 AM EDT Denial rec'd from [facility] for fezlinetant. It doesn't say what is covered. Reviewed discount cards. That would be around 500$ per month. * Telephone Encounter - Camila Lees MA - 2024 10:47 AM EDT Prior Authorization has been completed online at [employer] for Pily, will await response. BRAVO-BTERJJQL Please keep encounter open until final decision has been received and documented from insurance company. Camila Lees MA documented in this encounterUniversity Hospitals St. [facility]05-21-2024 Telephone encounter Note * Telephone Encounter - Jaime Spencer APRN.CNS - 03/17/2024 4:11 PM EDT ok [facility]05-21-2024 Telephone encounter Note* Telephone Encounter - Amira Fisher LPN - 03/17/2024 3:04 PM EDT Spoke with patient and she would like to try the low-dose paroxetine to see if that would help. Shedoesn't want to try the gabapentin due to side effects. Also patient has requested a refill on the Lantus. Prescription is pending. [facility]05-21-[facility]24 Telephone encounter Note* Telephone Encounter - Jaime Spencer APRN.CNS - 03/17/2024 1:52 PM EDT Please let Irma Stewart know. Can consider low-dose paroxetine or gabapentin for hot flashes if she would like. [facility]05-21-2024 Telephone encounter Note* Telephone Encounter - Chloe Booker LPN - 03/17/2024 8:39 AM EDT Denial rec'd from [facility] for libbydaniel. It doesn't say what is covered. Reviewed discount cards. That would be around 500$ per month. [facility]05-20-2024 Telephone encounter Note* Telephone Encounter - Camila Lees MA - 2024 10:47 AM EDT Prior Authorization has been completed online at [employer] for Pily, will await response. [id number] Please keep encounter open until final decision has been received and documented from insurance company. Camila Lees MA [facility]05-17-2024 Telephone encounter Note* Telephone Encounter - Jaime Spencer APRN.CNS - 03/13/2024 7:29 AM EDT Yes rx sent. [facility]05-17-2024 Miscellaneous Notes* Telephone Encounter - Jaime Spencer APRN.CNS - 03/13/2024 7:29 AM EDT Yes rx sent. * Telephone Encounter - Amira Fisher LPN - 03/12/2024 4:59 PM EDT Patient notified of providers message and verbalized understanding. Patient states that she is taking Lantus 30 units at bedtime and that she use to take metformin XR a while back but when she calledin for a refill it was the regular metformin instead and she tried taking it but it caused diarrheaso she stopped taking it. Patient is asking if the XR could be called into her pharmacy and she will start taking it again. * Telephone Encounter - Amira Fisher LPN - 03/12/2024 4:50 PM EDT ----- Message from Jaime Spencer APRN.ACADEMIC SPECIALIST sent at 03/12/2024 4:37 PM EDT ----- CBC CMP TSH are in acceptable range. A1c shows decreased control compared to previous. Check to seeif taking medications for DM as ordered. documented in this encounterUniversity Hospitals St. [facility]05-16-2024 Telephone encounter Note * Telephone Encounter - Amira Fisher LPN - 03/12/2024 4:59 PM EDT Patient notified of providers message and verbalized understanding. Patient states that she is taking Lantus 30 units at bedtime and that she use to take metformin XR a while back but when she calledin for a refill it was the regular metformin instead and she tried taking it but it caused diarrheaso she stopped taking it. Patient is asking if the XR could be called into her pharmacy and she will start taking it again. [facility]05-16-2024 Telephone encounter Note* Telephone Encounter - Amira Fisher LPN - 03/12/2024 4:50 PM EDT ----- Message from Jaime Spencer APRN.ACADEMIC SPECIALIST sent at 03/12/2024 4:37 PM EDT ----- CBC CMP TSH are in acceptable range. A1c shows decreased control compared to previous. Check to seeif taking medications for DM as ordered. [facility]05-02-2024 History of Present illness Narrative* Jaime Spencer APRN.ACADEMIC SPECIALIST - 02/27/2024 2:20 PM EDT SUBJECTIVE: Diabetic Foot Exam Never done Pap [...] has been seen by Dr. 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 Ordered albuterol sulfate and budesonide/formoterol fumarate. Noted mild persistent asthma without complication morbid obesity hypoxemia. She was referred tosleep medicine. Echocardiogram ordered not yet scheduled. Not covered by insurance per Irma. Recommended weight loss. Today notes neck pain on the left side. Sharp discomfort with movement. Does radiate down to the upper left shoulder. No difficulty moving her left arm. Decreased range of motion looking to the left.Pain is increased with looking to the left. No injury or increased activity prior to this occurrence. Present for a few weeks. No prior occurrence reported. She reports left-sided chest pain and left axilla pain at rest and with activity. Seems to be worsewith activity. She notes decreased exercise tolerance. She [...] Diarrhea Haldol [Haloperidol] Other: See Comments Headache/hallucinations [place] Other: See Comments Hallucinations Metformin Diarrhea Neurontin [Gabapent* Intolerance felt poorly Penicillins Unknown Okay to take amoxil Tylenol [Acetaminop* Intolerance Victoza [Liraglutid* GI Upset Medications ergocalciferol 50,000 unit capsule (VITAMIN D2, DRISDOL) Take 1 capsule by mouth one time a week. TO BE TAKEN ORALLY DIRECTED. Take 1 tablet by mouth twice weekly [id number], then decrease to 1 tablet weekly. oxybutynin [...] day. Takes blood sugar twice daily) Insulin [place], Disposable, (BD ULTRAFINE III MINI PEN) 31 gauge x 3/16" 1 Each two times a day. rosuvastatin [...] application to affected area two times a day.For rash/itching. Apply sparingly. Avoid face/skin fold. Lancets [...] taking differently: Test blood sugar(s) 3 times daily.Dx: Type 2 DM - Controlled E11.9 Insulin: [...] application to affected area two times a day.For rash/itching. Apply sparingly. Avoid face/skin fold. (Patient not taking: Reported on 02/27/2024) blood sugar diagnostic (BLOOD GLUCOSE TEST) test strip Test blood sugar(s) 3 times daily. Dx: Type 2 DM - Controlled E11.9 Insulin: Yes (Patient not taking: Reported on 02/27/2024) alcohol swabs Apply 1 application to affected area three times daily. (Patient not taking: Reportedon 02/27/2024) PAST MEDICAL HISTORY Diagnosis Date Abdominal [...] Abs Lymph 1.00 - 4.00 k/uL 1.52 Hitchcock% % 6.7 Abs Hitchcock <0.87 k/uL 0.28 Eosin% % 2.2 Abs [...] (SHINGRIX) - RSV VACCINE, BIVALENT (ABRYSVO) - [employer] COVID-19 VACCINE (2022- SEASON) AGE 12+ YR Reschedule with rheumatology, previously NANCY positive. 1 mo follow up CAMPOS Barcenas APRN.CNS Medical Decision Making: Problems: Moderate: 2+ stable chronic illnesses Data: Unique test(s) ordered: 2 Risk: Moderate: Drug management Medical Decision Making Level: 4 - Moderate documented in this encounterUniversity Hospitals St. [facility]04-22-2024 Telephone encounter Note * Telephone Encounter - Mary Lou Pablo LPN - 02/17/2024 4:45 PM EDT Patient returned call and said pharmacy was [...] does not always hear her phone ringing. [facility]24 Miscellaneous Notes* Telephone Encounter - Mary Lou Pablo LPN - 02/17/2024 4:45 PM EDT Patient returned call and said pharmacy was [...] does not always hear her phone ringing. * Telephone Encounter - Romi Pandya LPN - 02/06/2024 3:18 PM EDT Left a message for pt to call the office. Records show medication be last prescribed in 2021. Romi Pandya LPN documented in this encounterUniversity Hospitals St. [facility]04-19-2024 Miscellaneous Notes* Telephone Encounter - Romi Pandya LPN - 02/14/2024 11:35 AM EDT Left a brief message with information listed below. Romi Pandya LPN * Telephone Encounter - Sloane Selby MD - 02/14/2024 12:43 AM EDT RX sent 02/07/24 * Telephone Encounter - Anupama Andrade LPN - 02/13/2024 8:00 AM EDT Patient has been identified by name and [...] you. Anupama Andrade LPN. documented in this encounterUniversity Hospitals St. [facility]04-12-2024 Miscellaneous Notes* Telephone Encounter - Anupama Andrade LPN - 02/07/2024 8:47 AM EDT Patient has been identified by name and [...] care: 05/06/2024 Please advise. Thank you. Anupama Andarde LPN. documented in this encounterUniversity Hospitals St. [facility]04-11-2024 Telephone encounter Note * Telephone Encounter - Romi Pandya LPN - 02/06/2024 3:18 PM EDT Left a message for pt to call the office. Records show medication be last prescribed in 2021. Romi Pandya LPN [facility]03-12-2024 Miscellaneous Notes* Telephone Encounter - Anupama Andrade LPN - 01/07/2024 7:21 PM EDT Patient has been identified by name and [...] you. Anupama Andrade LPN. documented in this encounterUniversity Hospitals St. [facility]03-12-2024 Miscellaneous Notes* Telephone Encounter - Kelsi Mcmullen MA - 01/07/2024 9:33 AM EDT Patient has been identified by name and [...] you. Kelsi Mcmullen MA. documented in this encounterUniversity Hospitals St. [facility]02-15-2024 Miscellaneous Notes* Telephone Encounter - Rhona Lai RN - 12/12/2023 1:07 PM EST Patient notified of message below. Patient voiced understanding. Rhona Lai RN * Telephone Encounter - Romi Pandya LPN - 12/11/2023 10:34 AM EST Left a message for pt to call the office and ask to speak to a nurse. Romi Pandya LPN * Telephone Encounter - Lala Harrison APRN.PORTFOLIO STRATEGIST - 12/11/2023 9:13 AM EST Please let patient know this is now considered a controlled substance which is why her previous provider probably had more ability to prescriber more refills then we are able to now. Thank you Lala Harrison APRN.PORTFOLIO STRATEGIST PDMP website checked and validated. All prescriptions have been APPROPRIATELY filled. No suspiciousactivity was identified. 12/11/2023 by Lala Harrison APRN.MICHAEL * Telephone Encounter - Anupama Andrade LPN - 12/11/2023 8:44 AM EST Patient has been identified by name and [...] you. Anupama Andrade LPN. documented in this encounterUniversity Hospitals St. [facility]02-15-2024 Miscellaneous Notes* Telephone Encounter - Rhona Lai RN - 12/12/2023 12:50 PM EST Patient notified of results and provider's instructions. Patient verbalizes understanding. Rhona Lai RN * Telephone Encounter - Christoph Mckeon Ma - 12/11/2023 8:56 AM EST Left message to call office. 12/11/2023 8:57 AM Christoph Mckeon Ma * Telephone Encounter - Yasmine Martinez APRN.MICHAEL - 12/11/2023 7:18 AM EST Abnormal results on lung function testing, showing obstruction that did not resolve with treatment.Recommend referral to pulmonology for further evaluation Yasmine Martinez APRN.PORTFOLIO STRATEGIST documented in this encounterUniversity Hospitals St. [facility]02-14-2024 Miscellaneous Notes* Telephone Encounter - Anupama Andrade LPN - 12/11/2023 8:44 AM EST Patient has been identified by name and date of : No Patient phones for refill(s): Requested Prescriptions Pending Prescriptions Disp Refills Insulin [place], Disposable, (BD ULTRAFINE III MINI PEN) 31 gauge x 3/16" 100 Each 3 Si Each two times a day. Date of last office visit in primary care: 11/04/2023 Date of next office visit in primary care: 12/10/2023 Please advise. Thank you. Anupama Andrade LPN. documented in this encounterUniversity Hospitals St. [facility]02-14-2024 Miscellaneous Notes* Telephone Encounter - Brea Root OCCA - 12/11/2023 7:31 AM EST Patient has been identified by name and [...] Thank you. FRANCISCO Broderick. documented in this encounterUniversity Hospitals St. [facility]02-12-2024 Miscellaneous Notes* Telephone Encounter - Christoph Mckeon Ma - 12/09/2023 11:13 AM EST Pt notified via [employer]. * Telephone Encounter - Yasmine Martinez APRN.CNP - 12/09/2023 7:29 AM EST Please fax copy of my office note from 11/04, oxygen order and pulse ox with ambulation results to [facility]. Please let patient know we are faxing the order Yasmine Martinez APRN.PORTFOLIO STRATEGIST documented in this encounterUniversity Hospitals St. John [facility]02-12-2024 Miscellaneous Notes* Telephone Encounter - Anupama Andrade LPN - 12/09/2023 8:50 AM EST Patient has been identified by name and [...] you. Anupama Andrade LPN. documented in this encounterUniversity Hospitals St. [facility]02-09-2024 Procedure note* Sary Servin RPFT - 12/06/2023 3:09 PM ESTAssociated Order(s): OXIMETRY WITH AMBULATION RESPIRATORY THERAPY OXIMETRY WITH [...] TIME: 3:09 PM Comment: documented in this encounterUniversity Hospitals St. John [facility]02-09-2024 History of Present illness Narrative* Sary Servin RPFT - 12/06/2023 2:49 PM EST PULM FUNCTION SMARTBLOCK: Provider: Yasmine Martinez APRN.PORTFOLIO STRATEGIST Assisting Tech: Sary Servin RPFT Spirometry w/BD: 1 DLCO: 1 LV - Box: 1 Oximetry - Ambulation: 1 documented in [address] encounterUniversity Hospitals St. [facility]02-05-2024 Miscellaneous Notes* Telephone Encounter - Inocencia Lowery RN - 12/02/2023 4:44 PM EST Dusty from [facility] calling to say patient needs further testing for use of oxygen. Patient will need a 6 minute walk test or 3 part testing. Patient was supposed to see Pulmonary on 11/13/23 but cancelled. Scheduled to see Pulmonary on 12/03/23. She says if patient doesn't have testing, insurance won't cover. Inocencia Lowery RN * Telephone Encounter - Marc Ledezma MA - 12/02/2023 3:36 PM EST O2 order with 11/04/23 OV notes documenting O2 necessity & recent PSG study results faxed to: [facility] [phone]. Marc Ledezma MA * Telephone Encounter - Helene Cisneros RN - 11/29/2023 4:57 PM EST Pt phoned to let Yasmine know, the DME to send oxygen to is [facility]. Reports her oxygen tank at home quit working around 11-08-23. Reports her oxygen is up and down lately- goes to 98% and sometimesgoes to 84%, and advised pt to practice deep breathing at home. Pt agreeable. Advised pt to ER if POX stays in 80's and having SOB. Pt agreeable. Pt had to cancel pulm tests b/c she was sick, but plans to reschedule. documented in this encounterUniversity Hospitals St. [facility] Center01-29-2024 History of Present illness Narrative* Yumiko Abernathy RT(R) - 11/25/2023 7:10 PM EST Radiology Service Progress Note PATIENT NAME: Irma Stewart DATE OF SERVICE: November 25, 2023 TIME: 7:04 PM PATIENT IDENTITY VERIFICATION COMPLETED USING TWO (2) IDENTIFIERS: Name and Date of confirmedby patient verbally. FALL SCREENING: Has the patient had 2 falls in the last year or 1 fall with injury or currently using an Ambulatory Assistive Device (Walker, Cane, Wheelchair, Crutches, etc.)? Yes, Patient High Riskfor Falls What interventions were put in place to prevent falls during this visit? Instructed Patient to Remain Seated (Not on Exam Table) Until Exam and did sitting in wheelchair PATIENT GENDER DATA: Female. status: : No status: NO. PATIENT RELEVANT IMPLANT DATA REVIEWED: Not Applicable PATIENT PRESENTS WITH AN IMPLANTABLE OR ATTACHED TURBINE BLADE ASSEMBLER: No RADIOLOGY DEPARTMENT: General X-ray: Exam(s) Completed: Upper Extremity X- Ray(s): Fingers/Thumb, right PERIPHERAL IV DATA: Not applicable SIGNED BY: RT Rafa(R) November 25, 2023 7:04 PM documented in this encounterUniversity Hospitals St. John [facility]01-08-2024 History of Present illness Narrative* Carine Scott RT(R) - 11/04/2023 2:20 PM EST Radiology Service Progress Note PATIENT NAME: Irma Stewart DATE OF SERVICE: November 04, 2023 TIME: 2:22 PM PATIENT IDENTITY VERIFICATION COMPLETED USING TWO (2) IDENTIFIERS: Name and Date of confirmedby patient verbally. FALL SCREENING: Has the patient [...] 04, 2023 2:22 PM documented in this [facility]12-08-2023 Miscellaneous Notes* Telephone Encounter - Christoph Mckeon Ma - 10/04/2023 12:15 PM EST ROSALIA: 08/09/2023 Last refill: 08/09/2023 QTY: 60 Refills: 1 documented in this [facility]12-08-2023 Miscellaneous Notes* Telephone Encounter - Christoph Mckeon Ma - 10/04/2023 12:12 PM EST ROSALIA: 08/09/2023 Last refill: 08/13/2023 QTY: 60 Refills: 1 documented in this [facility]12-06-2023 Miscellaneous Notes* Telephone Encounter - Lisa Helm Ma - 10/02/2023 6:25 PM EST Order faxed. * Telephone Encounter - Lala Harrison APRN.PORTFOLIO STRATEGIST - 10/02/2023 6:20 PM EST Orders placed. Please fax pulse ox order as requested. Thank you Lala Harrison APRN.PORTFOLIO STRATEGIST * Telephone Encounter - Kelsi Mcmullen MA - 10/01/2023 12:56 PM EST Orders pended documented in this encounterUniversity Hospitals St. [facility]12-05-2023 Miscellaneous Notes* Telephone Encounter - Nidia Silverio LPN - 10/01/2023 12:54 PM EST [facility]oke to [facility], Patient has refills of Alcohol swabs, Pharmacy will get ready for Patient to pickup. Nidia Silverio LPN documented in this encounterUniversity Hospitals St. [facility]12-05-2023 Miscellaneous Notes* Telephone Encounter - Nidia Silverio LPN - 10/01/2023 12:53 PM EST Spoke to [facility], Patient has refills of BD Ultrafine pen needles 31x3/16. Pharmacy will get ready for Patient to pickup. Nidia Silverio LPN documented in this encounterUniversity Hospitals St. [facility]12-05-2023 Miscellaneous Notes* Telephone Encounter - Nidia Silverio LPN - 10/01/2023 12:52 PM EST Patient has been identified by name and [...] you. Nidia Silverio LPN. documented in this encounterUniversity Hospitals St. [facility]12-05-2023 Miscellaneous Notes* Telephone Encounter - Nidia Silverio LPN - 10/01/2023 12:51 PM EST [facility]oke to [facility], Patient has refills of [...] for medication: Potassium: No components found for: "POT" Please advise. Thank you. Nidia Silverio LPN. documented in this encounterUniversity Hospitals St. [facility]11-06-2023 Miscellaneous Notes* Telephone Encounter - Tanya Bianchi PSS - 09/02/2023 1:58 PM EST Telephoned the patient regarding missed appt. Left a message. 2nd attempt * Telephone Encounter - Tanya Bianchi PSS - 08/30/2023 1:50 PM EDT Telephoned the patient regarding missed appt. Left a message. 1st attempt * Telephone Encounter - Constance Humphries RPh - 08/30/2023 1:37 PM EDT Primary Care Pharmacy Rescheduling Outreach Call center, please contact patient and reschedule telephone and virtual visit for Diabetes management within ~4 week(s). (Visit length: 30 minutes) Thank you, Constance Humphries PharmD Primary Care Clinical Deboning Team Leader 08/30/2023 1:37 PM * Telephone Encounter - Constance Humphries RPh - 08/27/2023 3:42 PM EDT Called patient for scheduled pharmacy phone follow up; unable to reach after multiple attempts. Left VM with phone number to reschedule. Constance Humphries PharmD Primary Care Clinical Deboning Team Leader documented in this encounterUniversity Hospitals St. [facility]10-26-2023 Miscellaneous Notes* Telephone Encounter - Iveth Nye LPN - 08/22/2023 8:26 AM EDT Patient has been identified by name and [...] you. Iveth Nye LPN. documented in this encounterUniversity Hospitals St. John [facility] Center10-17-2023 Miscellaneous Notes* Telephone Encounter - Jaime Spencer APRN.ZOYA - 08/13/2023 10:17 AM EDT ok * Telephone Encounter - Jolene Tubbs LPN - 08/13/2023 9:19 AM EDT Patient states was unable to fill the script for the Lyrica 100 mg. On script it states not to start before 09/09/2023. If patient has been taking daily will be due for a refill. Please correct script. Call patient once encounter has been addressed. documented in this encounterUniversity Hospitals St. [facility]10-17-2023 Telephone encounter Note * Telephone Encounter - Anupama Andrade - 08/13/2023 9:53 AM EDT Patient has been identified by name and [...] applicable Please advise. Thank you. Anupama Andrade. [facility]10-17-2023 Miscellaneous Notes* Telephone Encounter - Anupama Andrade - 08/13/2023 9:53 AM EDT Patient has been identified by name and [...] applicable Please advise. Thank you. Anupama Andrade. * Telephone Encounter - Hema Mcclelland - 08/13/2023 8:37 AM EDT Patient has been identified by name and [...] and advise. Hema Mcclelland documented in this encounterUniversity Hospitals St. [facility]10-17-2023 Telephone encounter Note * Telephone Encounter - Hema Mcclelland - 08/13/2023 8:37 AM EDT Patient has been identified by name and [...] daily Please review and advise. Hema Mcclelland [facility]10-13-2023 Instructions* Patient Instructions* Jaime Spencer APRN.CNS - 08/09/2023 2:34 PM [...] Continue on with iron documented in this encounterUniversity Hospitals St. John [facility] Center10-13-2023 History of Present illness Narrative* Jaime Spencer APRN.CNS - 08/09/2023 1:40 PM EDT SUBJECTIVE: Diabetic Foot Exam Never done Pap Testing Never done HPV Testing Never done Colorectal Cancer Screening Never done Mammogram Screening due on 05/20/2007 Shingrix Vaccine(1 of 2) Never done Hepatitis B Vaccine(1 of 3 - Risk 3-dose series) Never done Urine Albumin:Creatinine Ratio due on 10/02/2022 Covid-19 Vaccine( season) due on 06/28/2023 Dilated Retinal Exam due on 07/31/2023 RAY Stewart is a 63 year old female. [...] visit notes indicate she has been in [place] ER for severe pain. Reported referred to orthopedic spine medicine Dr. Garcia. She notes last seen July 09, 2023 and diagnosed with fibromyalgia. Treated with Lyrica 100mg twice daily. Noted neck and right hip pain status post fall. She was referred to fibromyalgia specialist. Seen by specialist: At her visit she reported shooting pain burning nausea headaches dizziness weakness burning eyes that are dry photosensitive fatigue and brain fog. History of chronic sciatic pain previously seen by pain management Dr. Marinelli for injections whichwere not helpful. Uses a wheelchair and scooter [...] diagnosed with fibromyalgia by Dr. Garcia at [facility] orthopedics. Reports she was referred to Dr. Conrad Springer, plans to see him at [facility] in [facility]. States he is a fibromyalgia specialist. She reports the increased dose of Lyrica has helped her pain. She reports decreased by about 40% since last seen. She reports seeing her hemoglobin A1c and resuming metformin 500 mg once daily. States she is tolerating this currently. Continues on insulin 30 units Lantus daily. She reports eating 1 meal daily atdinnertime, no other meals are reported. She reports [...] Diarrhea Haldol [Haloperidol] Other: See Comments Headache/hallucinations [place] Other: See Comments Hallucinations Metformin Diarrhea Neurontin [...] Take 1 tablet by mouth twice weekly [id number], then decrease to 1 tablet weekly. ferrous sulfate 325 mg (65 mg iron) tablet Take 1 tablet by mouth two times a day with meals. furosemide (LASIX) 20 mg tablet Take 1 tablet by mouth once daily. Alternate 2 pills with 1 pill daily Insulin [place], Disposable, (BD ULTRAFINE III MINI PEN) 31 gauge x 3/16" 1 Each twice daily. Lancets lancets Test [...] application to affected area two times a day.For rash/itching. Apply sparingly. Avoid face/skin fold. triamcinolone acetonide (KENALOG) 0.5 % cream Apply 1 application to affected area two times a day.For rash/itching. Apply sparingly. Avoid face/skin fold. ZOLOFT [...] Abs Lymph 1.00 - 4.00 k/uL 1.52 Hitchcock% % 6.7 Abs Hitchcock <0.87 k/uL 0.28 Eosin% % 2.2 Abs [...] Level: 4 - Moderate documented in this encounterUniversity Hospitals St. John [facility] Center09-18-2023 Miscellaneous Notes* Telephone Encounter - Romi Pandya LPN - 07/15/2023 2:36 PM EDT Pt calling for : 1)lab results. Pt still not feeling well and she was dx with Fibromyalgia on 07-09-23. 2)blood sugar meter quit. Requesting new one be sent unable to test until she gets a new one. Requesting everything be sent to [facility]. Romi Pandya LPN documented in this encounterUniversity Hospitals St. John [facility] Center09-18-2023 Hospital Discharge instructions Patient Education 07/15/2023 01:52:49 [...] such as acetaminophen or stronger opioids. These maybe prescribed short term. Nonsteroidal anti-inflammatory drugs (NSAIDs) are used to relieve pain. These include ibuprofen andnaproxen. Get exercise Gentle exercise can help lessen [...] eating habits, and extra weight can make itworse. These tips may help you feel better: [...] Arthritis Foundation www.arthritis.org National Fibromyalgia Association www.fmaware.org [place] Fibromyalgia Syndrome Association www.afsafund.org 4091-4800 [employer]. [address] [place] [address]. All rights reserved. This information is not intended as a substitute for professional medical care. Always follow yourhealthcare professional's instructions. Follow Up Care 07/15/2023 01:34:54 With:NAN MARQUIS Address: IN [place] FOR ER PT REFERRALS ONLY When:2-4 days [facility] 09-18-2023 Note Discharge Instructions Thank you for allowing Nan to assist you with your healthcare needs. The following is importantdischarge information regarding your hospital visit. Diagnosis from Today's Visit Fibromyalgia What to Do Next Instructions from Your Care Team No qualifying data available. Post Acute Orders No qualifying data available. You Need to Schedule the Following Appointments Follow Up with NAN MARQUIS When Within 2-4 days Where: [place] FOR ER PT REFERRALS ONLY Allergies Haldol lithium traMADol Medications Please ask your primary doctor or pharmacist before taking any other medication not listed, including over the counter drugs, herbal medications, vitamins and or supplements as they may interact withyour home medications. What How Much When Why Instructions Last Dose New acetaminophen-hydrocodone ([place] 325- 5 mg oral tablet) 1 tab(s) [...] such as acetaminophen or stronger opioids. These maybe prescribed short term. Nonsteroidal anti-inflammatory drugs (NSAIDs) are used to relieve pain. These include ibuprofen andnaproxen. Get exercise Gentle exercise can help lessen [...] eating habits, and extra weight can make itworse. These tips may help you feel better: [...] Arthritis Foundation www.arthritis.org National Fibromyalgia Association www.fmaware.org [place] Fibromyalgia Syndrome Association www.afsafund.org 3017-3181 [employer]. [address] [place] [address], [place] [address]. All rights reserved. This information is not intended as a substitute for professional medical care. Always follow yourhealthcare professional's instructions. Additional Information VACCINATE! IT SAVES LIVES! Members of the community who have not yet received the COVID-19 vaccine and would like to receive it can visit one of [facility] vaccine clinics. There are many vaccine clinic locations within the [facility]. For locations and available times, please visit www.gettheshot.coronavirus.[place].gov/. It is important to note that some COVID mobile vaccine clinics are held outdoors and may be canceled in rainy or stormy conditions. To learn more about pediatric vaccinations (ages 5-11), we invite you to visit the [facility] webpage. https://www.[employer]s.org/pages/2835-Aymue-Gbibekofakx-Gxvxrmuugf-Bqgpx-Hwx stions.htmlTo learn more about the COVID-19 vaccine, we invite you to visit the CDC website for a list of frequently asked questions. https://www.cdc.gov/coronavirus/2019-ncov/vaccines/faq.html [facility] [facility] Patient Portal Access Instructions: Stay connected with your healthcare team and access your personal medical information anytime with the [employer] Patient Portal. If you would like a full copy of your medical records please contact the [facility] Medical Records Department Saturday through Saturday between 8a.m. and 4:30p.m. Please follow the directions below to access the portal: 1.Access the email account you provided upon registration to the hospital.2.Look for an invitation email from [facility].3.Open the email and access the invitation link: Accept Invitation to [place] [facility]4.Fill in the required field to create your account. Sign into www.[employer] with your username and password that you [...] you will allow to register on the [facility] Portal for access to your information. You can also access the [facility] [facility] Patient Portal on the [employer] wyatt. Simply click on "Health Records" under "[facility] [employer]" and then click on the [employer] logo. HOW TO SAFELY DISPOSE OF PRESCRIPTION MEDICATIONS Please use one of the following methods to safely dispose of your unused medications. 1.Use a drug disposal kit: the drug disposal pouch allows you to safely discard your old and unuseddrugs. Ask your nurse to give you one when you are discharged.2.Visit a local take-back location: Many local pharmacies and police departments have programs that collect old and unwanted prescriptiondrugs. Call your local pharmacy or go to http://[employer]/0Z2Ix3d to find one close to you.3.Make use of household items: Use cat litter or old coffee grounds to dispose medications if other options arenot available. Mix your drugs with these household products, seal them in an airtight container andthrow it into the garbage. Call [facility]: [phone] to be sure your drugs can be [...] drowsiness, such as benzodiazepines, also known as benzos,including diazepam and alprazolam, muscle relaxants or sleep aids. Never sell or share prescriptionopioids. This is illegal. Store opioids in a [...] aware that I should contact my doctor. 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 John Medical Center09-15-2023 History of Present illness Narrative* Lala Harrison APRN.PORTFOLIO STRATEGIST - 07/12/2023 10:55 AM EDT CC: Patient presents with: ED Follow-up: [facility] [facility] 06/29/23 HPI Irma Steawrt is a 63 year old female who presents today for fibromyalgia pain. This is an established patient of Dr. Hackett'carol but my first time evaluating her. Has been in the ER in [place] for severe pain, per patient received multiple [...] cymbalta as ordered by psychiatry at the [facility]. REVIEW OF SYSTEMS General: no fevers, [...] vaginal ALLERGIES Betadine [Povidone-Iodine], Glimepiride, Haldol [Haloperidol], [place], Metformin, Neurontin [Gabapentin], Penicillins, Tylenol [Acetaminophen], and [...] DM - Controlled E11.9 Insulin: Yes Insulin [place], Disposable, (BD ULTRAFINE III MINI PEN) 31 gauge x 3/16" 1 Each twice daily. potassium chloride (K-TAB) [...] Take 1 tablet by mouth twice weekly [id number], then decrease to 1 tablet weekly. ferrous sulfate 325 mg (65 mg iron) tablet TAKE 1 TABLET BY MOUTH TWICE A DAY WITH MEALS furosemide (LASIX) 20 mg tablet Take 1 tablet by mouth once daily. Alternate 2 pills with 1 pill daily triamcinolone acetonide (KENALOG) 0.5 % cream Apply 1 application to affected area twice daily. Forrash/itching. Apply sparingly. Avoid face/skin fold. omeprazole (PRILOSEC) [...] Patient agreeable to treatment plan. Lala Harrison APRN.MICHAEL documented in this encounterUniversity Hospitals St. John Medical Center09-02-2023 Hospital Discharge instructions Patient Education 06/29/2023 21:16:37 [...] strengthening both the back muscles and the abdominalmuscles will provide better support for your spine. Swimming and brisk walking are good overall exercises to improve your fitness level. Practice safe lifting methods (below). Practice good posture when sitting, standing and walking. Avoid prolonged sitting. This puts more stress on the lower back than standing or walking. Wear quality shoes with sufficient arch support. Foot and ankle alignment can affect back symptoms.Women should avoid wearing high heels. Therapeutic massage [...] that bend your neck to one side. Puta pillow between your legs to further relax your lower back. If you sleep on your back, put pillowsunder your knees to support your legs in [...] be reviewed by a radiologist. You will benotified of any new findings that may affect [...] or legs Numbness in the groin area 6524-7732 [employer]. [address] [place] [address]. All rights reserved. This information is not intended as a substitute for professional medical care. Always follow yourhealthcare professional's instructions. Follow Up Care 06/29/2023 19:52:09 With:MARIBELL GARCIA DO [facility] Address: [address] [facility] [place] [address] [phone] When:2-4 days With:[facility] Address: When:2-4 days With:[facility] Address: [address] [place] [address] [phone] When:2-4 days [facility] 09-02-2023 Emergency department Discharge summary Discharge Instructions Thank you for allowing [facility] to assist you with your healthcare needs. The following is importantdischarge information regarding your hospital visit. Diagnosis from Today's Visit Dizziness x 2 years Leg pain-swelling x 2.5 years What to Do Next Instructions from Your Care Team No qualifying data available. Post Acute Orders No qualifying data available. You Need to Schedule the Following Appointments Follow Up with MARIBELL GARCIA DO, [facility] When Within 2-4 days Where: [address] [facility] [place] [address] [phone] Follow Up with [facility], Orthopaedics When Within 2-4 days Where: Follow Up with WILLY HUTSON APRN-MICHAEL When Within 2-4 days Where: [address] [place] [address]- [phone] Allergies Haldol lithium traMADol Medications Please ask your primary doctor or pharmacist before taking any other medication not listed, including over the counter drugs, herbal medications, vitamins and or supplements as they may interact withyour home medications. What How Much When Instructions [...] strengthening both the back muscles and the abdominalmuscles will provide better support for your spine. Swimming and brisk walking are good overall exercises to improve your fitness level. Practice safe lifting methods (below). Practice good posture when sitting, standing and walking. Avoid prolonged sitting. This puts more stress on the lower back than standing or walking. Wear quality shoes with sufficient arch support. Foot and ankle alignment can affect back symptoms.Women should avoid wearing high heels. Therapeutic massage [...] that bend your neck to one side. Puta pillow between your legs to further relax your lower back. If you sleep on your back, put pillowsunder your knees to support your legs in [...] be reviewed by a radiologist. You will benotified of any new findings that may affect [...] or legs Numbness in the groin area 6965-6944 [employer]. [address] [place] [address]. All rights reserved. This information is not intended as a substitute for professional medical care. Always follow yourhealthcare professional's instructions. Additional Information VACCINATE! IT SAVES LIVES! Members of the community who have not yet received the COVID-19 vaccine and would like to receive it can visit one of [facility] vaccine clinics. There are many vaccine clinic locations within the [facility]. For locations and available times, please visit www.gettheshot.coronavirus.[place].gov/. It is important to note that some COVID mobile vaccine clinics are held outdoors and may be canceled in rainy or stormy conditions. To learn more about pediatric vaccinations (ages 5-11), we invite you to visit the [facility] webpage. https://www.[email or web address].org/pages/[email or web address]-Lifbx-Isegpfodyqz-Bzihzvnbyl-Vpdnb-Pqd stions.htmlTo learn more about the COVID-19 vaccine, we invite you to visit the CDC website for a list of frequently asked questions. https://www.cdc.gov/coronavirus/2019-ncov/vaccines/faq.html [facility] Patient Portal Access Instructions: Stay connected with your healthcare team and access your personal medical information anytime with the [employer] Patient Portal. If you would like a full copy of your medical records please contact the [facility] Medical Records Department Saturday through Saturday between 8a.m. and 4:30p.m. Please follow the directions below to access the portal: 1.Access the email account you provided upon registration to the [facility].2.Look for an invitation email from [facility].3.Open the email and access the invitation link: Accept Invitation to [facility]4.Fill in the required field to create your account. Sign into www.[email or web address] with your username and password that you [...] you will allow to register on the [employer] Patient Portal for access to your information. You can also access the [facility] Patient Portal on the [employer]. Simply click on "Health Records" under "HealthData" and then click on the [employer] logo. HOW TO SAFELY DISPOSE OF PRESCRIPTION MEDICATIONS Please use one of the following methods to safely dispose of your unused medications. 1.Use a drug disposal kit: the drug disposal pouch allows you to safely discard your old and unuseddrugs. Ask your nurse to give you one when you are discharged.2.Visit a local take-back location: Many local pharmacies and police departments have programs that collect old and unwanted prescriptiondrugs. Call your local pharmacy or go to http://Api[employer]/0R3In6a to find one close to you.3.Make use of household items: Use cat litter or old coffee grounds to dispose medications if other options arenot available. Mix your drugs with these household products, seal them in an airtight container andthrow it into the garbage. Call [facility]: [phone] to be sure your drugs can be [...] drowsiness, such as benzodiazepines, also known as benzos,including diazepam and alprazolam, muscle relaxants or sleep aids. Never sell or share prescriptionopioids. This is illegal. Store opioids in a [...] aware that I should contact my doctor. 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 Last refill: 04/08/2023 QTY: 60 Refills: 1 documented in [place] encounterAmy [place] [id number] Miscellaneous Notes* Telephone Encounter - Chloe Booker LPN - 05/28/2023 8:52 AM EDT Per pharmacy distance visit 05/27/23. Pt was instructed to stop trulicity. * Telephone Encounter - Chloe Booker LPN - 05/01/2023 3:50 PM EDT Message left again for pt to return call to a nurse to verify no personal or family history of thyroid cancer per question from BEBA Reeves from 04/24/23 * Telephone Encounter - Emilia Ruff RN - 04/24/2023 4:54 PM EDT Pt called back and states she was confused. She has taken Victoza in the past. Pt willing to try the Trulicity. Hung up with patient and forgot to ask if she has any personal or family hx of thyroid cancer. LM for pt to return call to confirm this as Lala requested. * Telephone Encounter - Lala Harrison APRN.CNP - 04/24/2023 7:31 AM EDT Previous message states she was on victoza. Do we need to update the PA? Thank you Lala Harrison APRN.CNP * Telephone Encounter - Jannette Prajapati Ma - 04/23/2023 9:12 AM EDT Lala - Pt wrote this message into the Office via [employer] 3 days ago. Hi Brunilda, I was prescribed Ozempic by Fior Joseph a week ago this past . I forget who but someone from your office contacted me a few days ago and told me it was not covered. She said that Ihad to try three other medications and they [...] and I even dropped my A1C some. Fiorcandido Matago wanted the Ozempic to help me with weight loss. My Ozempic was denied at [place], [place]. I don't know what I'm suppose to do at this point for something to aid me in losing weight. I will wait to hear from you. Thank you & Sincerely!! Irma = )" Jannette Prajapati Ma * Telephone Encounter - Christoph Mckeon Ma - 04/22/2023 1:33 PM EDT Left message to call office. 04/22/2023 1:33 PM * Telephone Encounter - Lala Harrison APRN.CNP - 04/22/2023 1:28 PM EDT Please let patient know below information. I will start her on trulicity. Same instruction and sideeffects as ozempic. Verify no personal or family history of thyroid cancer. Patient needs to followup 4 weeks after starting trulicity. Thank you Lala Harrison APRN.CNP * Telephone Encounter - Camila Lees Ma - 04/17/2023 11:37 AM EDT PA denied patient must have history 120 days therapy with three preferred. Patient has tried victoza which is preferred but had GI issues so would need to try other 2 listed. -byetta 5mcg or 10 mcg -trulicity 0.75, 1.5, 3, and 4.5 mg Please choose alternative and send to pharmacy * Telephone Encounter - Camila Lees Ma - 04/16/2023 11:02 AM EDT Prior Authorization has been completed online at [employer] for ozempic, will await response. BRAVO- [id number] Please keep encounter open until final decision has been received and documented from insurance company. Camila Lees MA * Telephone Encounter - Inocencia Lowery RN - 04/15/2023 4:45 PM EDT PRIOR AUTHORIZATION Medication for Prior Authorization: Ozempic Other formulary meds available : NO Insurance Company: [employer] phone number: Patient insurance ID number: [id number] Inocencia Lowery RN documented in this encounterUniversity Hospitals St. John Medical Center07-31-2023 NoteHNO ID: [id number] Author: Ricardo Dinh RPh Service: ? Author [...] she states that her chief concern is "I couldn't handle the Trulicity." Did x2 doses of the Trulicity and [...] Diarrhea Haldol [Haloperidol] Other: See Comments Headache/hallucinations [place] Other: See Comments Hallucinations Metformin Diarrhea Neurontin [...] E11.9 Insulin: Yes 100 Each 0 Insulin [place], Disposable, (BD ULTRAFINE III MINI PEN) 31 gauge x 3/16" 1 Each twice daily. 100 Each 3 [...] Take 1 tablet by mouth twice weekly [id number], then decrease to 1 tablet weekly. 24 [...] Date HBA1C 6.6 0 (more content not included)...[facility] [id number] History of Present illness Narrative* Ricardo Dinh, [facility] - 05/27/2023 3:00 PM EDT Primary Care Pharmacy Visit CC (Reason for Consult): (E11.9, Z79.4) Controlled type 2 diabetes mellitus without complication, with long-term current use of insulin (HCC) (primary encounter diagnosis) Goal(s): A1C < 7% Last Collaborating Provider Visit: 02/22/23 Irma Stewart is a 63 year old female presenting for follow up visit by telephone. Patient consentsto pharmacy collaborative practice agreement. . HPI: Irma Stewart attends today's appointment by telephone. she is a [place] White FEMALE who is A&O x3, pleasant, and cooperative. Today, she states that her chief concern is "I couldn't handle the Trulicity." Did x2 doses of the Trulicity and [...] Diarrhea Haldol [Haloperidol] Other: See Comments Headache/hallucinations [place] Other: See Comments Hallucinations Metformin Diarrhea Neurontin [...] E11.9 Insulin: Yes 100 Each 0 Insulin [place], Disposable, (BD ULTRAFINE III MINI PEN) 31 gauge x 3/16" 1 Each twice daily. 100 Each 3 [...] Take 1 tablet by mouth twice daily. 180tablet 3 potassium chloride (K-TAB) 10 mEq tablet [...] Take 1 tablet by mouth twice weekly [id number], then decrease to 1 tablet weekly. 24 [...] 1 application to affected area twice daily. Forrash/itching. Apply sparingly. Avoid face/skin fold. 45 g [...] with long-term current use of insulin ([facility]) - ICD9: 250.00, V58.67, ICD10: E11.9, Z79.4 [...] was spent counseling and/or coordinating care for thepatient. interaction: telephonic time was 35 minutes. documented in this encounterUniversity Hospitals St. John Medical Center07-27-2023 History of Present illness Narrative* Thom Enamorado PT - 05/23/2023 5:59 PM EDT Episode Visit Count: 1 Therapist That Will [...] function domain and self efficacy domain identified asa rehabilitation concern. Prognosis for therapy is Good [...] 4 Planned Treatment Interventions: Canalith Repositioning Maneuvers (87292), Self- fpc management (60364), Patient/Family/Caregiver Education, Body Mechanics Training PLAN FOR [...] Yes Description: (ringing) Rating of current symptoms: 08/06 Location: both ears equally Comments: severe ringing [...] pt reported feeling better with her vision "more clear" as she was leaving. PROMIS Scales Higher [...] WITH LEVEL OF FUNCTION: Positional Testing Right Bunker-Hallpike: Symptomatic, No nystagmus (very mild with no detectable nystagmus) Left Soni-Hallpike: Symptomatic, With delay, Less than 60 seconds (Pt became upset and anxious aboutthe disturbing vertigo symptoms but was able to complete testing and treatment.) Cervical Spine ROM Cervical ROM : (adequate for positional testing) Education: Education Learning Preferences: Demonstration, Explanation, Performance, Printed Materials Barriers: Emotions Learning/educational needs: Procedure / Surgery, Plan of Care, Home exercise program, Posture, BodyMechanics Education Provided: Yes, see treatment interventions for education provided Education Provided To: Patient, Caregiver Education Mode/Type: Demonstration, Explanation/Discussion, Performance Response to Education/Teach Back: States/Identifies, Requires Review/Additional Education TREATMENT: PT Treatment Interventions: Canalith Repositioning Evaluation Canalith Repositionin: Following positional testing, CRM for B posterior canals completed with pt on plinth. She was educated extensively on the technique [...] 1555 Thom Enamorado PT documented in this encounterUniversity Hospitals St. John Medical Center07-07-2023 Miscellaneous Notes* Telephone Encounter - Jolene Tubbs LPN - 05/03/2023 4:18 PM EDT Spoke with patient and the Ozempic was denied by insurance See telephone encounter 04/15/2023. Patient is starting on Trulicity. * Telephone Encounter - Nidia Silverio LPN - 05/02/2023 1:42 PM EDT Left message to call & speak to nurse. Nidia Silverio LPN * Telephone Encounter - Nidia Silverio LPN - 05/01/2023 2:58 PM EDT Left message to call & speak to nurse re: currenty dose. Nidia Silverio LPN * Telephone Encounter - Sloane Selby MD - 04/29/2023 7:00 PM EDT Verify current dose--was 0.75 on March * Telephone Encounter - Anupama Ceballos LPN - 04/29/2023 4:22 PM EDT Patient has been identified by name and [...] you. Anupama Ceballos LPN documented in this encounterUniversity Hospitals St. John Medical Center06-26-2023 Miscellaneous Notes* Telephone Encounter - Christoph Mckeon Ma - 04/22/2023 3:55 PM EDT Unable to reach patient - mychart sent. * Telephone Encounter - FRANCISCO Broderick - 04/19/2023 12:56 PM EDT TC to patient with no answer. Left VM to return call to office to receive update. FRANCISCO Broderick * Telephone Encounter - Kelsi Alfred PA-C - 04/16/2023 11:59 AM EDT Please let patient know that the basaglar was changed to lantus due to insurance preference, and will be continued at the same units. Kelsi Alfred PA-C * Telephone Encounter - Chloe Booker LPN - 04/15/2023 4:46 PM EDT Called the pharmacy and formulary is lantus. Pt has never tried lantus that I can see. She has been on basaglar since 2019. Did not review this with pt. Change to lantus or try to PA the basaglar? * Telephone Encounter - Lala Harrison APRN.CNP - 04/15/2023 12:16 PM EDT Did we receive a PA for this? Thank you Lala Harrison APRN.MICHAEL * Telephone Encounter - Anupama Ceballos LPN - 04/15/2023 11:46 AM EDT Patient has been identified by name and date of : No Patient phones for refill(s): Requested Prescriptions Pending Prescriptions Disp Refills BASAGLAR KWIKPEN U-100 INSULIN 100 unit/mL (3 mL) [Pharmacy Med Name: BASAGLAR 100 UNIT/ML KWIKPEN]3 Sig: INJECT 24 UNITS SUBCUTANEOUSLY ONCE DAILY. Date of last office visit in primary care: 02/22/23 Last 2 Encounter Wt Readings: Date: Wt: 02/22/2023 115.7 kg (255 lb) 01/23/2023 116.1 kg (256 lb) Previous labs/tests for medication: Diabetes: Hemoglobin A1C (%) Date Value 02/20/2023 6.6 04/10/2022 7.1 06/23/2021 6.0 08/31/2020 6.4 Please advise. Thank you. Anupama Ceballos LPN documented in this encounterUniversity Hospitals St. John Medical Center06-23-2023 History of Present illness Narrative* Ursula Vegas - 04/19/2023 11:19 AM EDT POPULATION HEALTH NAVIGATION OUTREACH Action/FYI RP Outreach: LVM for Patient to call back and schedule ADEN Consult for Knee joint injury, initial encounter [S89.90XA]. [phone]. Any agent can assist. Patient Identified by Name and : YES, via [employer] Outreach Outcome/Action Unable to reach patient: Left message Did you use a PCP flex slot to schedule this appointment? No Reason for Outreach Care Gap or Scheduling/Wellness visits Payer: Payor: [employer]ICA[employer] / Plan: [facility] MEDICAID / Product Type: Medicaid / Care [...] 19, 2023 11:19 AM documented in this encounterUniversity Hospitals St. John Medical Center06-20-2023 History of Present illness Narrative* Sarabjitrishi Shasta - 04/16/2023 11:02 AM EDT POPULATION HEALTH NAVIGATION OUTREACH Action/FYI RP Outreach: LVM for Patient to call back and schedule ADEN Consult for Knee joint injury, initial encounter [S89.90XA]. [phone]. Any agent can assist. Patient Identified by Name and : YES, via [employer] Outreach Outcome/Action Unable to reach patient: Left message Did you use a PCP flex slot to schedule this appointment? No Reason for Outreach Care Gap or Scheduling/Wellness visits Payer: Payor: [facility] MEDICAID / Plan: [facility] MEDICAID / Product Type: Medicaid / Care [...] 16, 2023 11:02 AM documented in this encounterUniversity Hospitals St. John Medical Center06-15-2023 Miscellaneous Notes* Telephone Encounter - Iveth Nye LPN - 04/11/2023 3:09 PM EDT Patient has been identified by name and [...] you. Iveth Nye LPN documented in this encounterUniversity Hospitals St. John Medical Center06-15-2023 History of Present illness Narrative* Fior Joseph RP - 04/11/2023 1:00 PM EDT Primary Care Pharmacy Visit CC (Reason for Consult): Diabetes Goal: A1c < 7% Last Collaborating Provider Visit: 02/22/23 Irma Stewart is a 63 year old female presenting for initial visit: This initial consult was conducted in person with the patient where the consult agreement was explained. The patient may decline orcancel the agreement at any time. After consideration, [...] relaxes, sometimes has couple pieces of candy; "I eat until I start feeling better" Preventative Medications: On BRADEN/ARB: No On Statin: Yes DIET/EXERCISE/SOCIAL Hx: Trying to cut back on sweets and starches MEDICATIONS: Pill bottles are not present. Adherence: denies missed doses. Pharmacy: e- [facility]/pharmacy #[id number] [place] [address] - [address]. - [phone] [facility] [phone] Rx coverage: Payor: [facility] MEDICAID / Plan: [facility] MEDICAID / Product Type: Medicaid ACTIVE PROBLEM LIST Esophageal Reflux Moderate Episode of Recurrent Major Depressive Disorder (Hcc) Panic Disorder Without Agoraphobia Somatization Disorder Irritable Bowel Syndrome Other and Unspecified Hyperlipidemia Schizophrenia (Hcc) Other Mixed Anxiety Disorders Controlled Type 2 Diabetes Mellitus Without Complication, With Long-Term Current Use of Insulin ([facility]) PAST MEDICAL HISTORY Diagnosis Date Abdominal pain, unspecified site 10/15/2006 Allergic rhinitis Allergic rhinitis, cause unspecified Bipolar affective disorder, depressed ([facility]) Candidiasis Chondromalacia of patella Chronic depressive personality [...] mention of status migrainosus Morbid obesity ([facility]) Myalgia and myositis, unspecified Obesity, unspecified Onychomycosis JAYLYN (obstructive sleep apnea) Osteoarthrosis Other acute reactions to stress Other anxiety states Panic disorder Panic disorder without agoraphobia Pedal edema PMH - PAST MEDICAL HISTORY OF joint pain Pure hypercholesterolemia Schizophrenia ([facility]) Sciatica, right side Sleep related bruxism Temporomandibular joint disorders, unspecified TMJ syndrome Unspecified menopausal and postmenopausal disorder Uterine prolapse without mention of vaginal wall prolapse Venous insufficiency of both lower extremities Vitamin D deficiency Past medical history reviewed. ALLERGIES Allergen Reactions Betadine [Povidone-* Unknown Glimepiride Intolerance Diarrhea Haldol [Haloperidol] Other: See Comments Headache/hallucinations [place] Other: See Comments Hallucinations Metformin Diarrhea Neurontin [...] Take 1 tablet by mouth twice weekly [id number], then decrease to 1 tablet weekly. ferrous [...] glucose has been controlled without it Insulin [place], Disposable, (BD ULTRAFINE III MINI PEN) 31 gauge x 3/16" 1 Each twice daily. Lancets lancets Test [...] 1 application to affected area twice daily. Forrash/itching. Apply sparingly. Avoid face/skin fold. ZOLOFT 100 [...] with long-term current use of insulin ([facility]) - ICD9: 250.00, V58.67, ICD10: E11.9, Z79.4 [...] fully explained to patient, including risk of C- cell hyperplasia in the thyroid gland occurring in [...] if starting to have issues with low orhigh BG Reviewed proper identification/mngt of low BG [...] verbalized understanding of instructions. Fior Joseph PharmD, [facility] Primary Care Clinical Pharmacist The majority of the pharmacy visit (> 50%) was spent counseling and/or coordinating care for thepatient. interaction: telephonic time was 48 minutes. documented in this encounterUniversity Hospitals St. John [facility] Center05-30-2023 Instructions* Patient Instructions* Gavi Norwood APRN.PORTFOLIO STRATEGIST - 03/26/2023 7:35 PM EDT ASSESSMENT/PLAN: 1. [...] Suboptimal joint space centering frontal weightbearing imaging Reed Repairer: JADON Transcribe Date/Time: Mar 26 2023 7:15P Dictated by : LATISHA ISAAC MD - RICE therapy as directed. - Follow-up with orthopedics as directed. - Discussed red flags and need for immediate medical evaluation if any occur. - Discussed supportive care treatment with fluids, rest and analgesia. - Discussed expected course of illness Gavi Norwood APRN.MICHAEL R.I.C.Aubrey. The general care of your injury includes the following: Resting, Icing, Compressing and Elevating the injured area. Remember this as "RICE." REST: Limit the use of the injured body part. ICE: By applying ice to the affected area, swelling and pain can be reduced. Place some ice cubes in a re-sealable (Ziploc) bag and add some water. Put a thin washcloth between the bag and your skin.Apply the ice bag to the area for [...] pillows when lying down. documented in this encounterUniversity Hospitals St. John [facility] Center05-30-2023 History of Present illness Narrative* Gavi Norwood APRN.PORTFOLIO STRATEGIST - 03/26/2023 6:50 PM EDT Subjective HPI Irma Stewart is a 63 year old female who presents with bilateral knee pain. She fell out of bed while having a bad dream a week ago. She states her right leg was bent behind her and her left legwas extended straight out in front of her. [...] <AGE 13 Tonsillectomy in her 20s [place] INGRKYARA AGGARWALL Left VAGINAL HYSTERECTOMY UTERUS 250 GM/< 08/17/1997 Hysterectomy, vaginal ALLERGIES Betadine [Povidone-Iodine], Glimepiride, Haldol [Haloperidol], [place], Metformin, Neurontin [Gabapentin], Penicillins, Tylenol [Acetaminophen], and [...] Take 1 tablet by mouth twice weekly [id number], then decrease to 1 tablet weekly. ferrous sulfate 325 mg (65 mg iron) tablet TAKE 1 TABLET BY MOUTH TWICE A DAY WITH MEALS Insulin [place], Disposable, (BD ULTRAFINE III MINI PEN) 31 gauge x 3/16" 1 Each twice daily. furosemide (LASIX) 20 mg tablet Take 1 tablet by mouth once daily. Alternate 2 pills with 1 pill daily triamcinolone acetonide (KENALOG) 0.5 % cream Apply 1 application to affected area twice daily. Forrash/itching. Apply sparingly. Avoid face/skin fold. insulin glargine [...] Suboptimal joint space centering frontal weightbearing imaging Reed Repairer: JADON Transcribe Date/Time: Mar 26 2023 7:15P Dictated by : LATISHA ISAAC MD - RICE therapy as directed. - Follow-up with orthopedics as directed. - Discussed red flags and need for immediate medical evaluation if any occur. - Discussed supportive care treatment with fluids, rest and analgesia. - Discussed expected course of illness Gavi Norwood APRN.MICHAEL documented in this encounterUniversity Hospitals St. John [facility] Center05-30-2023 History of Present illness Narrative* Carine Scott RT(R) - 03/26/2023 6:30 PM EDT Radiology Service Progress Note PATIENT NAME: Irma Stewart DATE OF SERVICE: March 26, 2023 TIME: 6:31 PM PATIENT IDENTITY VERIFICATION COMPLETED USING TWO (2) IDENTIFIERS: Name and Date of confirmedby patient verbally. FALL SCREENING: Has the patient had 2 falls in the last year or 1 fall with injury or currently using an Ambulatory Assistive Device (Walker, Cane, Wheelchair, Crutches, etc.)? Yes, Patient High Riskfor Falls What interventions were put in place to prevent falls during this visit? Instructed Patient to Callfor Help if Needed, Offered Assistance with Transfers/Clothing, and Increased Observations by Caregivers PATIENT GENDER DATA: Female. status: : No status: NO. PATIENT RELEVANT IMPLANT DATA REVIEWED: Yes RADIOLOGY DEPARTMENT: General X-ray: Exam(s) Completed: Lower Extremity X- Ray(s): Knee, AP / Lat / Tunne / Merchant Bilateral and Wt. Bearing PERIPHERAL IV DATA: Not applicable SIGNED BY: ROSE Burton) March 26, 2023 6:31 PM documented in this encounterUniversity Hospitals St. John [facility] Center05-03-2023 Miscellaneous Notes* Telephone Encounter - Monik Hackett MD - 02/27/2023 6:49 PM EDT Consult has been ordered as requested RegardsMonik MD * Telephone Encounter - Rhona Lai RN - 02/27/2023 8:57 AM EDT Patient notified of results and provider's instructions. Patient verbalizes understanding. Please place pain management referral. Patient sees Dr. Beatty for pain management. Rhona Lai RN * Telephone Encounter - Monik Hackett MD - 02/26/2023 5:07 PM EDT Please let patient know that the disc space between L2 and L3 is decreased it may be causing the pain It may represent some degeneration which is common for people and interestingly she actually does have many significant changes in the back would recommend her to go back to pain management Regards, Monik Hakcett MD * Telephone Encounter - Rhona Lai RN - 02/26/2023 1:57 PM EDT Patient calls and states that she saw that her back xray results came back. Patient asking for provider to advise on results and to let patient know what the next step is. Patient reports that her legs are bothering her and that she have sharp pain in her back. Please review and advise, Rhona Lai RN documented in this encounterUniversity Hospitals St. John [facility] Center04-28-2023 History of Present illness Narrative* Carine Scott, RT(R) - 02/22/2023 3:20 PM EDT Radiology Service Progress Note PATIENT NAME: Irma Stewart DATE OF SERVICE: February 22, 2023 TIME: 3:20 PM PATIENT IDENTITY VERIFICATION COMPLETED USING TWO (2) IDENTIFIERS: Name and Date of confirmedby patient verbally. FALL SCREENING: Has the patient had 2 falls in the last year or 1 fall with injury or currently using an Ambulatory Assistive Device (Walker, Cane, Wheelchair, Crutches, etc.)? Yes, Patient High Riskfor Falls What interventions were put in place to prevent falls during this visit? Instructed Patient to Callfor Help if Needed, Offered Assistance with Transfers/Clothing, and Increased Observations by Caregivers PATIENT GENDER DATA: Female. status: : No status: NO. PATIENT RELEVANT IMPLANT DATA REVIEWED: Yes RADIOLOGY DEPARTMENT: General X-ray: Exam(s) Completed: Spine X-Ray(s): Lumbar AP / LAT / L5-S1 PERIPHERAL IV DATA: Not applicable SIGNED BY: RT Micheal(R) February 22, 2023 3:20 PM documented in this encounterUniversity Hospitals St. John [facility] Center04-06-2023 Miscellaneous Notes* Telephone Encounter - Jess Perry RPh - 01/31/2023 10:35 AM EDT Patient was referred to pharmacy by PCP on 01/23 with recommended follow up of 2 weeks. Patient currently scheduled for new office visit with Fior Joseph PharmD on 03/07/22. Called and Left voicemail to offer sooner phone or virtual visit with several availabilities withinthe next 7 days. If patient returns call and prefers to accept a sooner phone or virtual visit, please schedule with Jess. Jess Perry PharmD, BCACP Primary Care Clinical Pharmacist documented in this encounterUniversity Hospitals St. John [facility] Center04-05-2023 Miscellaneous Notes* Telephone Encounter - Inocencia Lowery RN - 01/30/2023 6:24 PM EDT Patient has been identified by name and [...] you. Inocencia Lowery RN documented in this encounterUniversity Hospitals St. John [facility] Center03-29-2023 History of Present illness Narrative* Monik Hackett MD - 01/23/2023 7:25 PM EDT US Reason for Visit Patient presents with: [...] that her nails should be good now after3 months of the lamisil Diabetes Mellitus: she [...] could do. Lost her mother, ex sis inlaw, and [...] avoid salt, trying to eat more fruits andvegetables, exercises regularly On lyrical for fibro and the medication helps her. She is on crestor. [facility] dul[facility] , zoloft and depakote. She [...] 325 mg (65 mg iron) tablet Insulin [place], Disposable, (BD ULTRAFINE III MINI PEN) 31 gauge x 3/16" metFORMIN ER (GLUCOPHAGE XR) 500 mg 24 [...] F) Resp 16 Ht 160 cm (5' 3") Wt 116.1 kg (256 lb) SpO2 94% [...] LEFT Monik Hackett MD documented in this encounterUniversity Hospitals St. John [facility] Center03-08-2023 Miscellaneous Notes* Telephone Encounter - Anupama Ceballos LPN - 01/02/2023 3:09 PM EST Patient has been identified by name and [...] you. Anupama Ceballos LPN documented in this encounterUniversity Hospitals St. John [facility] Center03-08-2023 Miscellaneous Notes* Telephone Encounter - Anupama Ceballos LPN - 01/02/2023 1:49 PM EST Patient has been identified by name and [...] you. Anupama Ceballos LPN documented in this encounterUniversity Hospitals St. John [facility] Center02-27-2023 Miscellaneous Notes* Telephone Encounter - Monik Hackett MD - 12/24/2022 10:43 PM EST Standing ordered placed Regards, Monik Hackett MD documented in this encounterUniversity Hospitals St. John Medical Center02-02-2023 Miscellaneous Notes* Telephone Encounter - Lala Harrison APRN.CNP - 11/29/2022 1:26 PM EST Please let patient know she is dur for a follow up appointment. Thank you Lala Harrison APRN.MICHAEL PDMP website checked and validated. All prescriptions have been APPROPRIATELY filled. No suspiciousactivity was identified. 11/29/2022 by Lala Harrison APRN.CNP * Telephone Encounter - Anupama Ceballos LPN - 11/27/2022 9:11 AM EST Patient has been identified by name and [...] you. Anupama Ceballos LPN documented in this encounterUniversity Hospitals St. John [facility] Center01-16-2023 Miscellaneous Notes* Telephone Encounter - Anupama Ceballos LPN - 11/12/2022 4:17 PM EST Patient has been identified by name and [...] you. Anupama Ceballos LPN documented in this encounterUniversity Hospitals St. John [facility] Center12-13-2022 History of Present illness Narrative* Caren Mayfield RT(R) - 10/09/2022 4:30 PM EST Radiology Service Progress Note PATIENT NAME: Irma Stewart DATE OF SERVICE: October 09, 2022 TIME: 5:08 PM PATIENT IDENTITY VERIFICATION COMPLETED USING TWO (2) IDENTIFIERS: Name and Date of confirmedby patient verbally. FALL SCREENING: Has the patient had 2 falls in the last year or 1 fall with injury or currently using an Ambulatory Assistive Device (Walker, Cane, Wheelchair, Crutches, etc.)? Yes, Patient High Riskfor Falls What interventions were put in place to prevent falls during this visit? Increased Observations by Caregivers PATIENT GENDER DATA: Female. status: : No status: NO. PATIENT RELEVANT IMPLANT DATA REVIEWED: Not Applicable RADIOLOGY DEPARTMENT: General X-ray: Exam(s) Completed: Lower Extremity X- Ray(s): Foot, Left, non wt bearing PERIPHERAL IV DATA: Not applicable SIGNED BY: RT Miranda(R) October 09, 2022 5:08 PM documented in this encounterUniversity Hospitals St. John [facility] Center11-28-2022 Miscellaneous Notes* Telephone Encounter - Jolene Tubbs LPN - 09/24/2022 2:50 PM EST Last office visit: 06/27/22 Next appointment scheduled: No future appointments scheduled at this time. Last labs: 04/10/22 Patient phones requesting refills as follows: Requested Prescriptions Pending Prescriptions Disp Refills ergocalciferol 50,000 unit capsule (VITAMIN D2, DRISDOL) 24 capsule 2 Sig: Take 1 capsule by mouth two times a week. TO BE TAKEN ORALLY DIRECTED. Take 1 tablet by mouth twice weekly [id number], then decrease to 1 tablet weekly. Please review and advise. Jolene Tubbs LPN documented in this encounterUniversity Hospitals St. John Medical Center11-28-2022 Miscellaneous Notes* Telephone Encounter - Jolene Tubbs LPN - 09/24/2022 2:49 PM EST Last office visit: 06/27/22 Next appointment scheduled: No future appointments scheduled at this time. Last labs: 04/10/22 Patient phones requesting refills as follows: Requested Prescriptions Pending Prescriptions Disp Refills rosuvastatin (CRESTOR) 10 mg tablet 90 tablet 2 Sig: Take 1 tablet by mouth daily at bedtime. Please review and advise. Jolene Tubbs LPN documented in this encounterUniversity Hospitals St. John [facility] Center11-11-2022 Miscellaneous Notes* Telephone Encounter - Romi Pandya LPN - 09/07/2022 10:40 AM EST Spoke with pt and information listed below given. Pt verbalizes understanding. Pt transferred to clay structure builder and servicer to reschedule apt with Podiatry. Romi Pandya LPN * Telephone Encounter - Lala Harrison APRN.CNP - 09/06/2022 3:20 PM EST This is often only for 3 months. Patient needs evaluated if treatment needs changed. Was a no show for podiatry. Thank you Lala Harrison APRN.CNP * Telephone Encounter - Iveth Nye LPN - 09/06/2022 1:23 PM EST Patient has been identified by name and [...] you. Iveth Nye LPN documented in this encounterUniversity Hospitals St. John [facility] Center10-25-2022 Miscellaneous Notes* Telephone Encounter - Romi Pandya LPN - 08/21/2022 7:51 AM EDT Patient has been identified by name and [...] you. Romi Pandya LPN documented in this encounterUniversity Hospitals St. John Medical Center10-25-2022 Miscellaneous Notes* Telephone Encounter - Romi Pandya LPN - 08/21/2022 7:50 AM EDT Patient has been identified by name and [...] you. Romi Pandya LPN documented in this encounterUniversity Hospitals St. John Medical Center09-28-2022 History of Present illness Narrative* Ursula Vegas - 07/25/2022 4:32 PM EDT POPULATION HEALTH NAVIGATION OUTREACH Action/I RP Outreach: LVM for Patient to call back and schedule ADEN Consult for Onychomycosis [B35.1]. [phone]. Any agent can assist. Pt identified by name and : YES, via ROOOMERShart Outreach Outcome/Action Unable to reach patient: Left message Did you use a PCP flex slot to schedule this appointment? No Reason for Outreach Care Gap or Scheduling/Wellness visits Payer: Payor: [facility] MEDICAID / Plan: [facility] MEDICAID / Product Type: Medicaid / Care [...] 25, 2022 4:32 PM documented in this encounterUniversity Hospitals St. John [facility] Center09-20-2022 Miscellaneous Notes* Telephone Encounter - Anupama Ceballos LPN - 07/17/2022 1:26 PM EDT Patient has been identified by name and [...] you. Anupama Ceballos LPN documented in this encounterUniversity Hospitals St. John [facility] Center09-06-2022 Miscellaneous Notes* Telephone Encounter - Anupama Ceballos LPN - 07/03/2022 4:15 PM EDT Patient has been identified by name and [...] you. Anupama Ceballos LPN documented in this encounterUniversity Hospitals St. John Medical Center08-31-2022 History of Present illness Narrative* Monik Hackett MD - 06/27/2022 5:11 PM EDT Reason for Visit Patient presents with: Recheck: [...] Eating out. Lost her mother, ex sis topher, and sister and step mom.the last was february 2022. Patient notes her things have been off recently. Patient was doing very good when her hba1c was 6.1 Is getting her toe nail fungus treated with lamisil but because of the pitting and lfiting from thenail bed, elbow and knee pain, she may [...] <AGE 13 Tonsillectomy in her 20s [place] INGR[place] Left VAGINAL HYSTERECTOMY UTERUS 250 GM/< [...] short acting, (LOPRESSOR) 50 mg tablet Insulin [place], Disposable, (BD ULTRAFINE III MINI PEN) 31 gauge x 3/16" metFORMIN ER (GLUCOPHAGE XR) 500 mg 24 [...] F) Resp 16 Ht 160 cm (5' 3") Wt 119.7 kg (264 lb) SpO2 96% [...] Monik Hackett MD ` documented in this encounterUniversity Hospitals St. John [facility] Center08-03-2022 Instructions* Patient Instructions* Trixie Gibson APRN.PORTFOLIO STRATEGIST - 05/30/2022 5:01 PM EDT Use the terbinafine medication once daily for 12 weeks. Recheck your liver function labs at that point. documented in this encounterUniversity Hospitals St. John Medical Center08-03-2022 History of Present illness Narrative* Trixie Gibson APRN.CNP - 05/30/2022 4:31 PM EDT Chief Complaint Patient presents with: Infection: bilateral [...] Diarrhea Haldol [Haloperidol] Other: See Comments Headache/hallucinations [place] Other: See Comments Hallucinations Metformin Diarrhea Neurontin [...] 1 tablet by mouth twice daily. Insulin [place], Disposable, (BD ULTRAFINE III MINI PEN) 31 gauge x 3/16" 1 Each twice daily. metFORMIN ER (GLUCOPHAGE [...] 1 application to affected area twice daily. Forrash/itching. Apply sparingly. Avoid face/skin fold. Lancets lancets [...] Take 1 tablet by mouth twice weekly [id number], then decrease to 1 tablet weekly. divalproex [...] PNL Trixie Gibson APRN.CNP documented in this encounterUniversity Hospitals St. John [facility] Center07-22-2022 Miscellaneous Notes* Telephone Encounter - Lala Harrison APRN.CNP - 05/18/2022 12:15 PM EDT Please let patient know she is overdue for routine follow up, and needs this prior to more refills,short refill prescribed at this time. Thank you Lala Harrison APRN.CNP PDMP website checked and validated. All prescriptions have been APPROPRIATELY filled. No suspiciousactivity was identified. 05/18/2022 by Lala Harrison APRN.CNP * Telephone Encounter - Sherly Storey Ma - 05/15/2022 10:50 AM EDT Last office visit: 10/02/21 F/u scheduled: none Last refilled on: Lyrica #[id number] with 2 refill on 02/09/22 Sherly Storey Ma documented in this encounterUniversity Hospitals St. John [facility] Center07-18-2022 Miscellaneous Notes* Telephone Encounter - Nidia Silverio LPN - 05/14/2022 7:34 PM EDT Patient has been identified by name and [...] you. Nidia Silverio LPN documented in this encounterUniversity Hospitals St. John [facility] Center05-18-2022 Miscellaneous Notes* Telephone Encounter - Trixie Gibson APRN.CNP - 03/14/2022 2:45 PM EDT See other MyChart encounter from today 03/14/2022. Trixie Gibson APRN.CNP documented in this encounterUniversity Hospitals St. John [facility] Center05-18-2022 Miscellaneous Notes* Telephone Encounter - Esther Baer Ma - 03/14/2022 8:13 AM EDT Please see patient message Esther Baer Ma documented in this encounterUniversity Hospitals St. John [facility] Center04-15-2022 Miscellaneous Notes* Telephone Encounter - Trixie Gibson APRN.CNP - 02/09/2022 3:51 PM EDT The following approved medication requests have been transmitted electronically. Signed Prescriptions Disp Refills pregabalin (LYRICA) 100 mg capsule 60 capsule 2 Sig: Take 1 capsule by mouth twice daily for 90 days. STEFANIE Class: C-V JENNIFER: No Authorizing Provider: TRIXIE GIBSON APRN.CNP PDMP website checked and validated. All prescriptions have been APPROPRIATELY filled. No suspiciousactivity was identified. 02/09/2022 by Trixie Gibson CNP. * Telephone Encounter - Kenia Dangelo LPN - 02/09/2022 3:38 PM EDT Patient has been identified by name and [...] you. Kenia Dangelo LPN documented in this encounterUniversity Hospitals St. John [facility] Center12-19-2006 History of Past illness Narrative* Problem Noted Date Resolved Date Abdominal pain, unspecified site 10/15/2006 12/07/2020 documented as of this encounter (statuses as of 02/09/2022) [address]19-2006 History of Past illness Narrative* Problem Noted Date Resolved Date Abdominal pain, unspecified site 10/15/2006 12/07/2020 documented as of this encounter (statuses as of 03/14/2022) [place] [id number] History of Past illness Narrative* Problem Noted Date Resolved Date Abdominal pain, unspecified site 10/15/2006 12/07/2020 documented as of this encounter (statuses as of 05/05/2022) [address] History of Past illness Narrative* Problem Noted Date Resolved Date Abdominal pain, unspecified site 10/15/2006 12/07/2020 documented as of this encounter (statuses as of 05/17/2022) [address] History of Past illness Narrative* Problem Noted Date Resolved Date Abdominal pain, unspecified site 10/15/2006 12/07/2020 documented as of this encounter (statuses as of 05/19/2022) [address] History of Past illness Narrative* Problem Noted Date Resolved Date Abdominal pain, unspecified site 10/15/2006 12/07/2020 documented as of this encounter (statuses as of 05/28/2022) [address] History of Past illness Narrative* Problem Noted Date Resolved Date Abdominal pain, unspecified site 10/15/2006 12/07/2020 documented as of this encounter (statuses as of 05/31/2022) [address] History of Past illness Narrative* Problem Noted Date Resolved Date Abdominal pain, unspecified site 10/15/2006 12/07/2020 documented as of this encounter (statuses as of 06/28/2022) [address] History of Past illness Narrative* Problem Noted Date Resolved Date Abdominal pain, unspecified site 10/15/2006 12/07/2020 documented as of this encounter (statuses as of 07/05/2022) [address] History of Past illness Narrative* Problem Noted Date Resolved Date Abdominal pain, unspecified site 10/15/2006 12/07/2020 documented as of this encounter (statuses as of 07/18/2022) [address] History of Past illness Narrative* Problem Noted Date Resolved Date Abdominal pain, unspecified site 10/15/2006 12/07/2020 documented as of this encounter (statuses as of 07/25/2022) [address] History of Past illness Narrative* Problem Noted Date Resolved Date Abdominal pain, unspecified site 10/15/2006 12/07/2020 documented as of this encounter (statuses as of 08/22/2022) [address] History of Past illness Narrative* Problem Noted Date Resolved Date Abdominal pain, unspecified site 10/15/2006 12/07/2020 documented as of this encounter (statuses as of 09/07/2022) [address] History of Past illness Narrative* Problem Noted Date Resolved Date Abdominal pain, unspecified site 10/15/2006 12/07/2020 documented as of this encounter (statuses as of 09/26/2022) [address] History of Past illness Narrative* Problem Noted Date Resolved Date Abdominal pain, unspecified site 10/15/2006 12/07/2020 documented as of this encounter (statuses as of 09/26/2022) [address] History of Past illness Narrative* Problem Noted Date Resolved Date Abdominal pain, unspecified site 10/15/2006 12/07/2020 documented as of this encounter (statuses as of 11/13/2022) [address] History of Past illness Narrative* Problem Noted Date Resolved Date Abdominal pain, unspecified site 10/15/2006 12/07/2020 documented as of this encounter (statuses as of 11/29/2022) [address] History of Past illness Narrative* Problem Noted Date Resolved Date Abdominal pain, unspecified site 10/15/2006 12/07/2020 documented as of this encounter (statuses as of 12/25/2022) [address] History of Past illness Narrative* Problem Noted Date Resolved Date Abdominal pain, unspecified site 10/15/2006 12/07/2020 documented as of this encounter (statuses as of 01/02/2023) [address] History of Past illness Narrative* Problem Noted Date Resolved Date Abdominal pain, unspecified site 10/15/2006 12/07/2020 documented as of this encounter (statuses as of 01/04/2023) [address] History of Past illness Narrative* Problem Noted Date Resolved Date Abdominal pain, unspecified site 10/15/2006 12/07/2020 documented as of this encounter (statuses as of 01/24/2023) [address] [address] History of Past illness Narrative* Problem Noted Date Resolved Date Abdominal pain, unspecified site 10/15/2006 12/07/2020 documented as of this encounter (statuses as of 01/31/2023) [address] History of Past illness Narrative* Problem Noted Date Resolved Date Abdominal pain, unspecified site 10/15/2006 12/07/2020 documented as of this encounter (statuses as of 02/01/2023) [address] History of Past illness Narrative* Problem Noted Date Resolved Date Abdominal pain, unspecified site 10/15/2006 12/07/2020 documented as of this encounter (statuses as of 02/28/2023) [address] History of Past illness Narrative* Problem Noted Date Resolved Date Abdominal pain, unspecified site 10/15/2006 12/07/2020 documented as of this encounter (statuses as of 03/27/2023) [address] History of Past illness Narrative* Problem Noted Date Resolved Date Abdominal pain, unspecified site 10/15/2006 12/07/2020 documented as of this encounter (statuses as of 04/12/2023) [address] History of Past illness Narrative* Problem Noted Date Resolved Date Abdominal pain, unspecified site 10/15/2006 12/07/2020 documented as of this encounter (statuses as of 04/12/2023) [address] History of Past illness Narrative* Problem Noted Date Resolved Date Abdominal pain, unspecified site 10/15/2006 12/07/2020 documented as of this encounter (statuses as of 04/16/2023) [address] History of Past illness Narrative* Problem Noted Date Resolved Date Abdominal pain, unspecified site 10/15/2006 12/07/2020 documented as of this encounter (statuses as of 04/19/2023) [address] History of Past illness Narrative* Problem Noted Date Resolved Date Abdominal pain, unspecified site 10/15/2006 12/07/2020 documented as of this encounter (statuses as of 04/23/2023) [address] History of Past illness Narrative* Problem Noted Date Diagnosed Date Resolved Date Abdominal pain, unspecified site 10/15/2006 12/07/2020 documented as of this encounter (statuses as of 05/04/2023) [address] History of Past illness Narrative* Problem Noted Date Diagnosed Date Resolved Date Abdominal pain, unspecified site 10/15/2006 12/07/2020 documented as of this encounter (statuses as of 05/06/2023) [address] History of Past illness Narrative* Problem Noted Date Diagnosed Date Resolved Date Abdominal pain, unspecified site 10/15/2006 12/07/2020 documented as of this encounter (statuses as of 05/24/2023) [address] History of Past illness Narrative* Problem Noted Date Diagnosed Date Resolved Date Abdominal pain, unspecified site 10/15/2006 12/07/2020 documented as of this encounter (statuses as of 05/28/2023) [address] History of Past illness Narrative* Problem Noted Date Diagnosed Date Resolved Date Abdominal pain, unspecified site 10/15/2006 12/07/2020 documented as of this encounter (statuses as of 05/31/2023) [address] History of Past illness Narrative* Problem Noted Date Diagnosed Date Resolved Date Abdominal pain, unspecified site 10/15/2006 12/07/2020 documented as of this encounter (statuses as of 06/12/2023) [address] History of Past illness Narrative* Problem Noted Date Diagnosed Date Resolved Date Abdominal pain, unspecified site 10/15/2006 12/07/2020 documented as of this encounter (statuses as of 07/13/2023) [address] History of Past illness Narrative* Problem Noted Date Diagnosed Date Resolved Date Abdominal pain, unspecified site 10/15/2006 12/07/2020 documented as of this encounter (statuses as of 07/16/2023) [address] History of Past illness Narrative* Problem Noted Date Diagnosed Date Resolved Date Abdominal pain, unspecified site 10/15/2006 12/07/2020 documented as of this encounter (statuses as of 08/09/2023) [address] History of Past illness Narrative* Problem Noted Date Diagnosed Date Resolved Date Abdominal pain, unspecified site 10/15/2006 12/07/2020 documented as of this encounter (statuses as of 08/13/2023) [address] History of Past illness Narrative* Problem Noted Date Diagnosed Date Resolved Date Abdominal pain, unspecified site 10/15/2006 12/07/2020 documented as of this encounter (statuses as of 08/22/2023) [address] History of Past illness Narrative* Problem Noted Date Diagnosed Date Resolved Date Abdominal pain, unspecified site 10/15/2006 12/07/2020 documented as of this encounter (statuses as of 08/31/2023) [address] History of Past illness Narrative* Problem Noted Date Diagnosed Date Resolved Date Abdominal pain, unspecified site 10/15/2006 12/07/2020 documented as of this encounter (statuses as of 09/03/2023) [address] History of Past illness Narrative* Problem Noted Date Diagnosed Date Resolved Date Abdominal pain, unspecified site 10/15/2006 12/07/2020 documented as of this encounter (statuses as of 10/01/2023) [address] History of Past illness Narrative* Problem Noted Date Diagnosed Date Resolved Date Abdominal pain, unspecified site 10/15/2006 12/07/2020 documented as of this encounter (statuses as of 10/01/2023) [address] History of Past illness Narrative* Problem Noted Date Diagnosed Date Resolved Date Abdominal pain, unspecified site 10/15/2006 12/07/2020 documented as of this encounter (statuses as of 10/01/2023) [address] History of Past illness Narrative* Problem Noted Date Diagnosed Date Resolved Date Abdominal pain, unspecified site 10/15/2006 12/07/2020 documented as of this encounter (statuses as of 10/03/2023) [address] History of Past illness Narrative* Problem Noted Date Diagnosed Date Resolved Date Abdominal pain, unspecified site 10/15/2006 12/07/2020 documented as of this encounter (statuses as of 10/04/2023) [address] History of Past illness Narrative* Problem Noted Date Diagnosed Date Resolved Date Abdominal pain, unspecified site 10/15/2006 12/07/2020 documented as of this encounter (statuses as of 10/04/2023) [address] History of Past illness Narrative* Problem Noted Date Diagnosed Date Resolved Date Abdominal pain, unspecified site 10/15/2006 12/07/2020 documented as of this encounter (statuses as of 10/04/2023) [address] History of Past illness Narrative* Problem Noted Date Diagnosed Date Resolved Date Abdominal pain, unspecified site 10/15/2006 12/07/2020 documented as of this encounter (statuses as of 12/03/2023) [address] History of Past illness Narrative* Problem Noted Date Diagnosed Date Resolved Date Abdominal pain, unspecified site 10/15/2006 12/07/2020 documented as of this encounter (statuses as of 12/06/2023) [address] History of Past illness Narrative* Problem Noted Date Diagnosed Date Resolved Date Abdominal pain, unspecified site 10/15/2006 12/07/2020 documented as of this encounter (statuses as of 12/06/2023) [address] History of Past illness Narrative* Problem Noted Date Diagnosed Date Resolved Date Abdominal pain, unspecified site 10/15/2006 12/07/2020 documented as of this encounter (statuses as of 12/09/2023) [address] History of Past illness Narrative* Problem Noted Date Diagnosed Date Resolved Date Abdominal pain, unspecified site 10/15/2006 12/07/2020 documented as of this encounter (statuses as of 12/09/2023) [address] History of Past illness Narrative* Problem Noted Date Diagnosed Date Resolved Date Abdominal pain, unspecified site 10/15/2006 12/07/2020 documented as of this encounter (statuses as of 12/11/2023) [address] History of Past illness Narrative* Problem Noted Date Diagnosed Date Resolved Date Abdominal pain, unspecified site 10/15/2006 12/07/2020 documented as of this encounter (statuses as of 12/11/2023) [address] History of Past illness Narrative* Problem Noted Date Diagnosed Date Resolved Date Abdominal pain, unspecified site 10/15/2006 12/07/2020 documented as of this encounter (statuses as of 12/12/2023) [address] History of Past illness Narrative* Problem Noted Date Diagnosed Date Resolved Date Abdominal pain, unspecified site 10/15/2006 12/07/2020 documented as of this encounter (statuses as of 12/12/2023) [place] [id number] History of Past illness Narrative* Problem Noted Date Diagnosed Date Resolved Date Abdominal pain, unspecified site 10/15/2006 12/07/2020 documented as of this encounter (statuses as of 01/07/2024) [address] History of Past illness Narrative* Problem Noted Date Diagnosed Date Resolved Date Abdominal pain, unspecified site 10/15/2006 12/07/2020 documented as of this encounter (statuses as of 01/08/2024) [place] [id number] History of Past illness Narrative* Problem Noted Date Diagnosed Date Resolved Date Abdominal pain, unspecified site 10/15/2006 12/07/2020 documented as of this encounter (statuses as of 01/27/2024) [place] [id number] History of Past illness Narrative* Problem Noted Date Diagnosed Date Resolved Date Abdominal pain, unspecified site 10/15/2006 12/07/2020 documented as of this encounter (statuses as of 02/07/2024) [address] History of Past illness Narrative* Problem Noted Date Diagnosed Date Resolved Date Abdominal pain, unspecified site 10/15/2006 12/07/2020 documented as of this encounter (statuses as of 02/14/2024) [facility] + Plan note No data available for this section [facility] Evaluation note* Diagnosis Fibromyalgia Mylagia and myositis, unspecified [facility] Diagnosis Need for vaccination Need for prophylactic vaccination and inoculation against unspecified single disease [facility] Diagnosis Need for vaccination Need for prophylactic vaccination and inoculation against unspecified single disease [facility] Diagnosis Fibromyalgia Mylagia and myositis, unspecified [facility] Diagnosis Encounter for screening mammogram for breast cancer [facility]* Diagnosis Onychomycosis- Primary Dermatophytosis of nail [facility] Diagnosis Pitted nails- Primary Other specified disease of nail Controlled type 2 diabetes mellitus without complication, with long-term current use of insulin (HCC) Mixed hyperlipidemia Vitamin B12 deficiency Other B-complex deficiencies [facility] Essential hypertension, benign [facility] Diagnosis History of iron deficiency Personal history of diseases of blood and blood-forming organs [facility] Diagnosis Need for vaccination Need for prophylactic vaccination and inoculation against unspecified single disease [facility] Diagnosis Essential hypertension, benign [facility] Diagnosis Onychomycosis Dermatophytosis of nail [facility]* Diagnosis Mixed hyperlipidemia [facility]* Diagnosis Need for vaccination Need for prophylactic vaccination and inoculation against unspecified single disease [facility]* Diagnosis Fibromyalgia Mylagia and myositis, unspecified [facility] Diagnosis Controlled type 2 diabetes mellitus without complication, with long-term current use of insulin (HCC)- Primary Vitamin B12 deficiency Other B-complex deficiencies Vitamin D deficiency Unspecified vitamin D deficiency [facility] Diagnosis Controlled type 2 diabetes mellitus without complication, with long-term current use of insulin (HCC) Essential hypertension, benign [facility] Diagnosis Controlled type 2 diabetes mellitus without complication, with long-term current use of insulin ([facility]* Diagnosis Schizophrenia, unspecified type (HCC)- Primary Fibromyalgia Mylagia and myositis, unspecified Moderate episode of recurrent major depressive disorder (HCC) Controlled type 2 diabetes mellitus without complication, with long-term current use of insulin (HCC) Hypertriglyceridemia Pure hyperglyceridemia Subcutaneous nodules Localized superficial swelling, mass, or lump [facility]* Diagnosis 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 DDD (degenerative disc disease), lumbar Degeneration of lumbar or lumbosacral intervertebral disc Narrowing of intervertebral disc space Degeneration of intervertebral disc, site unspecified [facility] Diagnosis Knee joint injury, initial encounter- Primary [facility]* Diagnosis Controlled type 2 diabetes mellitus without complication, with long-term current use of insulin (HCC)- Primary Medication management Encounter for long-term (current) use of other medications [facility] Diagnosis Controlled type 2 diabetes mellitus without complication, with long-term current use of insulin (HCC) [facility] Diagnosis Controlled type 2 diabetes mellitus without complication, with long-term current use of insulin (HCC) [facility] Diagnosis Encounter for screening mammogram for breast cancer [facility] Diagnosis Benign paroxysmal po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- Primary Benign paroxysmal vertigo of both ears Benign paroxysmal positional vertigo [facility] this [facility] Diagnosis Controlled type 2 diabetes mellitus without complication, with long-term current use of insulin (HCC)- Primary [facility]* Diagnosis Fibromyalgia Mylagia and myositis, unspecified [facility] this [facility] Diagnosis Generalized pain- Primary Burning sensation Disturbance of skin sensation Weakness Other malaise and fatigue Brain fog Controlled type 2 diabetes mellitus without complication, with long-term current use of insulin (HCC) Fibromyalgia Mylagia and myositis, unspecified [facility] Diagnosis NANCY positive- Primary Other and [...] nonspecific skin eruption [facility] this [facility]* Diagnosis Fibromyalgia Mylagia and myositis, unspecified documented in this [facility]* Diagnosis Need for vaccination Need for prophylactic vaccination and inoculation against unspecified single disease [facility] Diagnosis Hammertoe of left foot [facility] Diagnosis Controlled type 2 diabetes mellitus without complication, with long-term current use of insulin (HCC) documented [facility] this [facility]* Diagnosis Essential hypertension, benign Mixed hyperlipidemia documented in this [facility]* Diagnosis Essential hypertension, benign documented in this [facility] Diagnosis Essential hypertension, benign- Primary documented [facility] this [facility]* Diagnosis Fibromyalgia Mylagia and myositis, unspecified documented in this [facility]* Diagnosis Generalized pain Burning sensation Disturbance of skin sensation Fibromyalgia Mylagia and myositis, unspecified documented in this [facility] Diagnosis Hypoxia- Primary Hypoxemia documented in this [facility] Diagnosis Shortness of breath documented in this encounter [facility] Diagnosis Shortness of breath documented in this [facility] Diagnosis Hypoxia Hypoxemia Shortness of breath [facility] in this [facility] Diagnosis Hypoxia- Primary Hypoxemia Shortness of breath documented in this [facility]* Diagnosis Need for vaccination Need for prophylactic vaccination and inoculation against unspecified single disease documented [facility] this [facility]* Diagnosis Controlled type 2 diabetes mellitus without complication, with long-term current use of insulin (HCC) documented in this [facility]* Diagnosis Mixed hyperlipidemia Generalized pain Burning sensation Disturbance of skin sensation Fibromyalgia Mylagia and myositis, unspecified documented in this [facility]* Diagnosis Hypoxia- Primary Hypoxemia On home oxygen therapy Dependence on supplemental oxygen Abnormal lung function test Nonspecific abnormal results of pulmonary system function study documented in this encounter [facility]* Diagnosis Essential hypertension, benign documented [facility] this [facility]* Diagnosis History of iron deficiency Personal history of diseases of blood and blood-forming organs documented in this [facility] Diagnosis History of iron deficiency Personal history of diseases of blood and blood-forming organs documented in this [facility]* Diagnosis Need for vaccination Need for prophylactic vaccination and inoculation against unspecified single disease [facility]* Diagnosis Need for vaccination Need for prophylactic vaccination and inoculation against unspecified single disease [facility] Diagnosis Hypoxemia- Primary documented in this [facility]* Diagnosis Chest pain, unspecified type- Primary [...] single bacterial disease documented in this [facility]* Diagnosis Essential hypertension, benign documented in this encounter [facility]* Diagnosis Encounter for screening mammogram for breast cancer documented in this [facility]* Diagnosis Essential hypertension, benign documented in this encounter [facility]* Diagnosis Essential hypertension, benign documented in this [facility]* Diagnosis Generalized pain Burning sensation Disturbance of skin sensation Fibromyalgia Mylagia and myositis, unspecified documented in this encounter [facility]* Diagnosis Mild persistent asthma without complication- Primary Unspecified asthma documented [facility] this [facility]* Diagnosis Mild persistent asthma without complication- Primary Unspecified asthma SOB (shortness of breath) Shortness of breath Hypoxemia Morbid obesity (HCC) Morbid obesity documented [facility]* Diagnosis Controlled type 2 diabetes mellitus without complication, with long-term current use of insulin (HCC)- Primary Chest pain, unspecified type SOBOE (shortness of breath on exertion) Shortness of breath documented in this [facility]* Diagnosis Vitamin D deficiency- Primary Unspecified vitamin D deficiency documented in this [facility]* Diagnosis Generalized pain Burning sensation Disturbance of skin sensation Fibromyalgia Mylagia and myositis, unspecified Controlled type 2 diabetes mellitus without complication, with long-term current use of insulin ([facility] documented in this encounter [facility]* Diagnosis Pain of right thumb Pain in limb documented in this encounter [facility]* Diagnosis Acute cough Shortness of breath documented in this encounter [facility]* Diagnosis Knee joint injury, initial encounter [facility] Diagnosis Chronic bilateral low back pain with bilateral sciatica documented in this encounter [facility]* Diagnosis Need for vaccination Need for prophylactic vaccination and inoculation against unspecified single disease documented in this encounter [facility]* Diagnosis Controlled type 2 diabetes mellitus without complication, with long-term current use of insulin (HCC) Medication management Encounter for long-term (current) use of other medications documented in this encounter [facility] note* Diagnosis Fatigue, unspecified type- Primary Generalized pain Burning sensation Disturbance of skin sensation Fibromyalgia Mylagia and myositis, unspecified Controlled type 2 diabetes mellitus without complication, with long-term current use of insulin (HCC) [facility]* Diagnosis Panic disorder without agoraphobia- Primary Moderate episode of recurrent major depressive disorder (HCC) Insomnia, unspecified type Controlled type 2 diabetes mellitus without complication, with long-term current use of insulin (HCC) Burning sensation Disturbance of skin sensation Fibromyalgia Mylagia and myositis, unspecified Other fatigue Generalized pain documented in this encounter [facility] note* Diagnosis Essential hypertension, benign documented in this encounter [facility] note* Diagnosis Schizophrenia, unspecified type (HCC) [facility] [facility] note* Diagnosis Mixed hyperlipidemia [facility] Diagnosis Schizophrenia, unspecified type (HCC) Need for vaccination Need for prophylactic vaccination and inoculation against unspecified single disease Essential hypertension, benign Insomnia, unspecified type documented in this encounter [facility] note* Diagnosis Controlled type 2 diabetes mellitus without complication, with long-term current use of insulin (HCC) History of iron deficiency Personal history of diseases of blood and blood-forming organs [facility] Diagnosis Hypoxemia- Primary [facility] this encounter [facility]* Diagnosis Generalized pain Burning sensation Disturbance of skin sensation Fibromyalgia Mylagia and myositis, unspecified Moderate episode of recurrent major depressive disorder (HCC) [facility] Diagnosis History of iron deficiency Personal [...] vitamin D deficiency documented in this encounter [facility] note* Diagnosis Encounter for screening [facility] for [facility] Dizziness- Primary Dizziness and giddiness [...] of other medications documented in this encounter [facility] note* Diagnosis Generalized pain Burning sensation Disturbance of skin sensation Fibromyalgia Mylagia and myositis, unspecified Moderate episode of recurrent major depressive disorder (HCC) documented in this encounter [facility] note* Diagnosis Essential hypertension, benign documented in this encounter [facility] for referral (narrative)* Diagnostic Procedure Only (Routine) - Pending Review Specialty Diagnoses / Procedures Referred By Fiorella stanley Referred To Contact [facility] IMAGING Diagnoses Encounter for screening mammogram for breast cancer Procedures ALTHEA SCREENING SCREENING MAMMOGRAPHY BI 2-VIEW BREAST INC CAD Monik Hackett MD [address] [place] [address] [facility] Imaging [address] [place] [id number] Referral ID Status Reason Start Date Expiration Date Visits Requested Visits Authorized [id number] Pending Review Auto-Generat ed Referral 05/23/2022 06/22/2023 1 1 [facility] for referral (narrative)* Outpatient Procedure (Routine) - Authorized Specialty Diagnoses / Procedures Referred By Fiorella stanley Referred To [facility] Diagnoses Mixed hyperlipidemia Procedures PVR LEG W/EXC RYLEY VAS LAB N-INVAS PHYSIOLOGIC STD LXTR ART COMPL BI Monik Hackett MD [address] [place] [address] [facility] [place] [address] [place] [address] Referral ID Status Reason Start Date Expiration Date Visits Requested Visits Authorized [id number] Authorized Auto-Generat ed Referral 06/27/2022 06/27/2023 1 1 * Transition of Care (Routine) - Ref Not Required Specialty Diagnoses / Procedures Referred By Fiorella t Referred To Contact Dermatology Diagnoses Pitted nails Procedures CONSULT TO DERMATOLOGY Monik Hackett MD [address] [place] [address] Referral ID Status Reason Start Date Expiration Date Visits Requested Visits Authorized [id number] Ref Not Required PCP Requested Referral 06/27/2022 06/27/2023 1 1 [facility] for referral (narrative)* Diagnostic Procedure Only (Routine) - Pending Review Specialty Diagnoses / Procedures Referred By Fiorella stanley Referred To Contact US IMAGING Diagnoses Subcutaneous nodules Procedures US EXTREMITY MASS/FLUID COLLECTION LEFT Monik Hackett MD [facility] [place] [address] Us Imaging Referral ID Status Reason Start Date Expiration Date Visits Requested Visits Authorized [id number] Pending Review Auto-Generat ed Referral 01/23/2023 02/22/2024 1 1 [facility] for referral (narrative)* Diagnostic Procedure Only (Routine) - Pending Review Specialty Diagnoses / Procedures Referred By Fiorella stanley Referred To Contact [facility] Diagnoses Encounter for screening mammogram for breast cancer Procedures ALTHEA SCREENING SCREENING MAMMOGRAPHY BI 2-[place] [address] [place] [address] [facility] [address] [place] [address] Referral ID Status Reason Start Date Expiration Date Visits Requested Visits Authorized [id number] Pending Review Auto-Generat ed Referral 05/01/2023 05/30/2024 1 1 [facility] for referral (narrative)* Diagnostic Procedure Only (Routine) - Closed Specialty Diagnoses / Procedures Referred By Fiorella stanley Referred To Contact XR IMAGING Diagnoses Hammertoe of left foot Procedures XR FOOT GENERAL 3V AP/LAT/OBL LEFT RADEX FOOT COMPLETE MINIMUM 3 VIEWS Testrake, Narendra [address] [place] [address] [facility] [address] Referral ID Status Reason Start Date Expiration Date V isits Requested Visits Authorized [id number] Closed Auto-Generate d Referral 10/09/2022 11/08/2023 1 1 [facility] for referral (narrative)* Outpatient Procedure (Routine) - Pending Review Specialty Diagnoses / Procedures Referred By Contac t Referred To Contact [facility] [place] Diagnoses Hypoxemia Procedures ECHO ECHO TTHRC R-T 2D W/WOM-MODE COMPL SPEC&COLR D Camila Johns MD [address] [place] [address] [facility] [place] [facility] [place] [address] [facility] [place] [place] [address] Referral ID Status Reason Start Date Expiration Date Visits Requested Visits Authorized [id number] Pending Review Auto-Generat ed Referral 02/27/2024 02/26/2025 1 1 [facility] for referral (narrative)* Outpatient Procedure (Routine) - Pending Review Specialty Diagnoses / Procedures Referred By Contac t Referred To Contact [facility] [place] Diagnoses Chest pain, unspecified type SOBOE (shortness of breath on exertion) Procedures STRESS ECHO DOBUTAMINE ECHO TTHRC R-T 2D W/WO M-MODE COMPLETE REST&ST Jaime Spencer APRN.CNS [address] [place] [address] [facility] [place] [address] [place] [address] Referral ID Status Reason Start Date Expiration Date Visits Requested Visits Authorized [id number] Pending Review Auto-Generat ed Referral 02/27/2024 02/26/2025 1 1 * Medication Prior Authorization - Closed Specialty Diagnoses / Procedures Referred By Contac t Referred To Contact Jaime Spencer APRN.CNS [address] [place] [address] Referral ID Status Reason Start Date Expiration Date Visits Re quested Visits Authorized [id number] Closed 1 1 * Outpatient Procedure (Routine) - Pending Review Specialty Diagnoses / Procedures Referred By Contac t Referred To [facility] Diagnoses Chest pain, unspecified type Procedures ECG COMPLETE ECG ROUTINE ECG W/LEAST 12 LDS W/I&R Jaime Spencer APRN.CNS [address] [place] [address] [facility] [place] [address] [place] [address] Referral ID Status Reason Start Date Expiration Date Visits Requested Visits Authorized [id number] Pending Review Auto-Generat ed Referral 02/27/2024 02/26/2025 1 1 * Consult, Test, Treat (Routine) - Authorized Specialty Diagnoses / Procedures Referred By Fiorella stanley Referred To Contact Ophthalmology Diagnoses Screening for diabetic retinopathy Controlled type 2 diabetes mellitus without complication, with long-term current use of insulin (HCC) Procedures CONSULT TO OPHTHALMOLOGY OFFICE/OUTPATIENT [facility] MDM 60 MINUTES Jaime Spencer APRN.CNS [address] [place] [address] Referral ID Status Reason Start Date Expiration Date Visits Requested Visits Authorized [id number] Authorized PCP Requested Referral 02/27/2024 02/26/2025 1 1 [facility] for referral (narrative)* Diagnostic Procedure Only (Routine) - Pending Review Specialty Diagnoses / Procedures Referred By Fiorella t Referred To Contact BR IMAGING Diagnoses Encounter for screening mammogram for breast cancer Procedures ALTHEA SCREENING W CORIN SCREENING DIGITAL BREAST TOMOSYNTHESIS BI SCREENING MAMMOGRAPHY BI 2-VIEW BREAST INC Monik Hastings MD [address] [place] [address] [facility] [address] [place] [address] Referral ID Status Reason Start Date Expiration Date Visits Requested Visits Authorized [id number] Pending Review Auto-Generat ed Referral 04/08/2024 05/08/2025 1 1 [facility] for referral (narrative)* Diagnostic Procedure Only (Urgent) - Closed Specialty Diagnoses / Procedures Referred By Contac t Referred To Contact XR IMAGING Diagnoses Pain of right thumb Procedures XR DIGIT GENERAL 3V FRONTAL/LAT/OBL RIGHT RADEX FINGR MINIMUM 2 VIEWS Gavi Norwood APRN.PORTFOLIO STRATEGIST [address] [place] [address] [place] [address] Referral ID Status Reason Start Date Expiration Date V isits Requested Visits Authorized [id number] Closed Auto-Generate d Referral 11/25/2023 12/24/2024 1 1 [facility] for referral (narrative)* Diagnostic Procedure Only (Urgent) - Closed Specialty Diagnoses / Procedures Referred By Contac t Referred To Contact XR IMAGING Diagnoses Knee joint injury, initial encounter Procedures XR KNEE GENERAL 4V AP BOTH/PA BOTH/LAT/MERC BILATERAL RADIOLOGIC EXAM KNEE COMPLETE 4/MORE VIEWS Gavi Norwood APRN.PORTFOLIO STRATEGIST [address] [place] [address] [place] [address] Referral ID Status Reason Start Date Expiration Date V isits Requested Visits Authorized [id number] Closed Auto-Generate d Referral 03/26/2023 04/24/2024 1 1 [facility] for referral (narrative)* Diagnostic Procedure Only (Routine) - Closed Specialty Diagnoses / Procedures Referred By Contac t Referred To Contact XR IMAGING Diagnoses Chronic bilateral low back pain with bilateral sciatica Procedures XR LUMBAR GENERAL 3V AP/LAT/L5-S1 RADEX SPINE LUMBOSACRAL 2/3 VIEWS Monik Hackett MD [address] [place] [address] [place] [address] Referral ID Status Reason Start Date Expiration Date V isits Requested Visits Authorized [id number] Closed Auto-Generate d Referral 02/22/2023 03/23/2024 1 1 [facility] for referral (narrative)* Medication Prior Authorization - Closed Specialty Diagnoses / Procedures Referred By Contac t Referred To Contact Lala Harrison APRN.PORT[employer]OLIO STRATEGIST [address] [place] [address] Phone: tel: fax: Referral ID Status Reason Start Date Expiration Date Visits Re quested Visits Authorized [id number] Closed 1 1 [facility] for visit Narrative* Diagnostic Procedure Only (Routine) - Closed Specialty Diagnoses / Procedures Referred By Contac t Referred To Contact XR IMAGING Diagnoses Hammertoe of left foot Procedures XR FOOT GENERAL 3V AP/LAT/OBL LEFT RADEX FOOT COMPLETE MINIMUM 3 VIEWS Narendra Turner [address] [place] [address] [place] [address] Referral ID Status Reason Start Date Expiration Date V isits Requested Visits Authorized [id number] Closed Auto-Generate d Referral 10/09/2022 11/08/2023 1 1 [facility] for visit Narrative* Diagnostic Procedure Only (Urgent) - Closed Specialty Diagnoses / Procedures Referred By Contac t Referred To Contact XR IMAGING Diagnoses Pain of right thumb Procedures XR DIGIT GENERAL 3V FRONTAL/LAT/OBL RIGHT RADEX FINGR MINIMUM 2 VIEWS Gavi Norwood APRN.PORTFOLIO STRATEGIST [address] [place] [address] [place] [address] Referral ID Status Reason Start Date Expiration Date V isits Requested Visits Authorized [id number] Closed Auto-Generate d Referral 11/25/2023 12/24/2024 1 1 [facility] for visit Narrative* Diagnostic Procedure Only (Urgent) - Closed Specialty Diagnoses / Procedures Referred By Contac t Referred To Contact XR IMAGING Diagnoses Knee joint injury, initial encounter Procedures XR KNEE GENERAL 4V AP BOTH/PA BOTH/LAT/MERC BILATERAL RADIOLOGIC EXAM KNEE COMPLETE 4/MORE VIEWS Gavi Norwood APRN.MICHAEL [address] [place] [address] [place] [address] Referral ID Status Reason Start Date Expiration Date V isits Requested Visits Authorized [id number] Closed Auto-Generate d Referral 03/26/2023 04/24/2024 1 1 [facility] for visit Narrative* Diagnostic Procedure Only (Routine) - Closed Specialty Diagnoses / Procedures Referred By Contac t Referred To Contact XR IMAGING Diagnoses Chronic bilateral low back pain with bilateral sciatica Procedures XR LUMBAR GENERAL 3V AP/LAT/L5-S1 RADEX SPINE LUMBOSACRAL 2/3 VIEWS Monik Hackett MD [address] [place] [address] [place] [address] Referral ID Status Reason Start Date Expiration Date V isits Requested Visits Authorized [id number] Closed Auto-Generate d Referral 02/22/2023 03/23/2024 [address] [facility] Summary Purpose Family History No Family History Records FoundNo Family History Records Found No data available for this section No data available for this section No Family History Records Found No data available [...] HIGH MDM 60-74 MINUTES Monik Hackett MD [address] [place] [address] Referral ID Status Reason Start Date Expiration Date Visits Requested Visits Authorized [id number] Authorized PCP Requested Referral 02/27/2023 02/27/2024 1 1 Specialty Diagnoses / Procedures Referred By Contac t Referred To Contact Orthopedics Diagnoses Knee joint injury, initial encounter Procedures CONSULT PANEL TO ORTHOPAEDICS OFFICE/OUTPATIENT [facility] MDM 60-74 MINUTES Gavi Norwood APRN.PORTFOLIO STRATEGIST [address] [place] [address] Referral ID Status Reason Start Date Expiration Date Visits Requested Visits Authorized [id number] Authorized PCP Requested Referral 03/26/2023 03/25/2024 1 1 Specialty Diagnoses / Procedures Referred By Contac t Referred To Contact XR IMAGING Diagnoses Knee joint injury, initial encounter Procedures XR KNEE GENERAL 4V AP BOTH/PA BOTH/LAT/MERC BILATERAL RADIOLOGIC EXAM KNEE COMPLETE 4/MORE VIEWS Gavi Norwood APRN.PORTFOLIO STRATEGIST [address] [place] [address] Xr Imaging Referral ID Status Reason Start Date Expiration Date V isits Requested Visits Authorized [id number] Closed Auto-Generate d Referral 03/26/2023 04/24/2024 1 1 Specialty Diagnoses / Procedures Referred By Contac t Referred To Contact Diagnoses Controlled type 2 diabetes mellitus without complication, with long-term current use of insulin ([facility]) Monik Hackett MD [address] [place] [address] Referral ID Status Reason Start Date Expiration Date Visits Re quested Visits Authorized [id number] Closed 1 1 Specialty Diagnoses / Procedures Referred By Contac t Referred To Contact Monik Hackett MD [address] [place] [address] Referral ID Status Reason Start Date Expiration Date Visits Re quested Visits Authorized [id number] Closed 1 1 Specialty Diagnoses / Procedures Referred By Contac t Referred To Contact [facility] Diagnoses Benign paroxysmal vertigo of both ears Benign paroxysmal po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 Procedures PT REHAB FOLLOW UP ORDER THERAPEUTIC EXERCISES RE, EA 15 MIN. Pt [facility] [address] [place] [id number] [facility] [place] [address] [place] [address] Referral ID Status Reason Start Date Expiration Date Visits Requested Visits Authorized [id number] Pending Review PCP Requested Referral Auto-Generate d Referral 05/23/2023 08/21/2023 1 1 Referral ID Status Reason Start Date Expiration Date Visits Re quested Visits Authorized [id number] Closed 1 1 Specialty Diagnoses / Procedures Referred By Contac t Referred To Contact Rheumatology Diagnoses NANCY positive Procedures CONSULT TO RHEUM/IMMUN DISEASE OFFICE/OUTPATIENT [facility] 60-74 MINUTES Jaime Spencer, VETERANS' COORDINATOR.ACADEMIC SPECIALIST [address] [place] [address] Referral ID Status Reason Start Date Expiration Date Visits Requested Visits Authorized [id number] Authorized PCP Requested Referral 3 08/08/2024 1 1 Specialty Diagnoses / Procedures Referred By Contac t Referred To Contact Diagnoses Controlled type 2 diabetes mellitus without complication, with long-term current use of insulin (HCC) Procedures ENDOCRINOLOGY DIETITIAN VISIT (MNT) MEDICAL NUTRITION ASSMT&IVNTJ INDIV EACH 15 [place] MEDICAL NUTRITION ASSMT&IVNTJ INDIV EACH 15 [place] MEDICAL NUTRITION ASSMT&IVNTJ INDIV EACH 15 [place] MEDICAL NUTRITION ASSMT&IVNTJ INDIV EACH 15 [place] Lala Harrison, VETERANS' COORDINATOR.PORTFOLIO STRATEGIST [address] [place] [address] Referral ID Status Reason Start Date Expiration Date Visits Requested Visits Authorized [id number] Authorized PCP Requested Referral 05/06/2024 05/06/2025 1 1 Referral ID Status Reason Start Date Expiration Date Visits Re quested Visits Authorized [id number] Closed 1 1 Medications Administered Section Inactive [...] section and content) DATE CREATED AUTHOR 09/01/2020 [facility] ([place]) DATE CREATED AUTHOR AUTHOR'S ORGANIZ ATION 06/01/2023 [facility] DATE CREATED AUTHOR AUTHOR'S ORGANIZ ATION 08/17/2025 [facility] DATE CREATED AUTHOR AUTHOR'S ORGANIZ ATION 08/22/2025 [facility] DATE CREATED AUTHOR AUTHOR'S ORGANIZ ATION 09/07/2025 [facility] Source Comments (unrecognize d section and content) In the event this informatio n is protected by the Federal Confidentiality of Alcohol and Drug Abuse Patient Records regulations: The Federal rules restrict any use of the information to criminally investigate or prosecute any alcohol or drug abuse patient.[facility] the event this information is protected by the Federal Confidentiality of Alcohol and Drug Abuse Patient Records regulations: The Federal rules restrict any use of the information to criminally investigate or prosecute any alcohol or drug abuse patient.[facility] CenterIn the event this information is protected by the Federal Confidentiality of Alcohol and Drug Abuse Patient Records regulations: The Federal rules restrict any use of the information to criminally investigate or prosecute any alcohol or drug abuse patient.[facility] CenterIn the event this information is protected by the Federal Confidentiality of Alcohol and Drug Abuse Patient Records regulations: The Federal rules restrict any use of the information to criminally investigate or prosecute any alcohol or drug abuse patient.[facility] Center[facility] the event this information is protected by the Federal Confidentiality of Alcohol and Drug Abuse Patient Records regulations: The Federal rules restrict any use of the information to criminally investigate or prosecute any alcohol or drug abuse patient.[facility] CenterIn the event this information is protected by the Federal Confidentiality of Alcohol and Drug Abuse Patient Records regulations: The Federal rules restrict any use of the information to criminally investigate or prosecute any alcohol or drug abuse patient.[facility] CenterIn the event this information is protected by the Federal Confidentiality of Alcohol and Drug Abuse Patient Records regulations: The Federal rules restrict any use of the information to criminally investigate or prosecute any alcohol or drug abuse patient.[facility] CenterIn the event this information is protected by the Federal Confidentiality of Alcohol and Drug Abuse Patient Records regulations: The Federal rules restrict any use of the information to criminally investigate or prosecute any alcohol or drug abuse patient.[facility] CenterIn the event this information is protected by the Federal Confidentiality of Alcohol and Drug Abuse Patient Records regulations: The Federal rules restrict any use of the information to criminally investigate or prosecute any alcohol or drug abuse patient.[facility] CenterIn the event this information is protected by the Federal Confidentiality of Alcohol and Drug Abuse Patient Records regulations: The Federal rules restrict any use of the information to criminally investigate or prosecute any alcohol or drug abuse patient.[facility] CenterIn the event this information is protected by the Federal Confidentiality of Alcohol and Drug Abuse Patient Records regulations: The Federal rules restrict any use of the information to criminally investigate or prosecute any alcohol or drug abuse patient.[facility] CenterIn the event this information is protected by the Federal Confidentiality of Alcohol and Drug Abuse Patient Records regulations: The Federal rules restrict any use of the information to criminally investigate or prosecute any alcohol or drug abuse patient.[facility] CenterIn the event this information is protected by the Federal Confidentiality of Alcohol and Drug Abuse Patient Records regulations: The Federal rules restrict any use of the information to criminally investigate or prosecute any alcohol or drug abuse patient.[facility] CenterIn the event this information is protected by the Federal Confidentiality of Alcohol and Drug Abuse Patient Records regulations: The Federal rules restrict any use of the information to criminally investigate or prosecute any alcohol or drug abuse patient.[facility] CenterIn the event this information is protected by the Federal Confidentiality of Alcohol and Drug Abuse Patient Records regulations: The Federal rules restrict any use of the information to criminally investigate or prosecute any alcohol or drug abuse patient.[facility] CenterIn the event this information is protected by the Federal Confidentiality of Alcohol and Drug Abuse Patient Records regulations: The Federal rules restrict any use of the information to criminally investigate or prosecute any alcohol or drug abuse patient.[facility] CenterIn the event this information is protected by the Federal Confidentiality of Alcohol and Drug Abuse Patient Records regulations: The Federal rules restrict any use of the information to criminally investigate or prosecute any alcohol or drug abuse patient.[facility] CenterIn the event this information is protected by the Federal Confidentiality of Alcohol and Drug Abuse Patient Records regulations: The Federal rules restrict any use of the information to criminally investigate or prosecute any alcohol or drug abuse patient.[facility] CenterIn the event this information is protected by the Federal Confidentiality of Alcohol and Drug Abuse Patient Records regulations: The Federal rules restrict any use of the information to criminally investigate or prosecute any alcohol or drug abuse patient.[facility] CenterIn the event this information is protected by the Federal Confidentiality of Alcohol and Drug Abuse Patient Records regulations: The Federal rules restrict any use of the information to criminally investigate or prosecute any alcohol or drug abuse patient.[facility] CenterIn the event this information is protected by the Federal Confidentiality of Alcohol and Drug Abuse Patient Records regulations: The Federal rules restrict any use of the information to criminally investigate or prosecute any alcohol or drug abuse patient.[facility] CenterIn the event this information is protected by the Federal Confidentiality of Alcohol and Drug Abuse Patient Records regulations: The Federal rules restrict any use of the information to criminally investigate or prosecute any alcohol or drug abuse patient.[facility] CenterIn the event this information is protected by the Federal Confidentiality of Alcohol and Drug Abuse Patient Records regulations: The Federal rules restrict any use of the information to criminally investigate or prosecute any alcohol or drug abuse patient.[facility] CenterIn the event this information is protected by the Federal Confidentiality of Alcohol and Drug Abuse Patient Records regulations: The Federal rules restrict any use of the information to criminally investigate or prosecute any alcohol or drug abuse patient.[facility] CenterIn the event this information is protected by the Federal Confidentiality of Alcohol and Drug Abuse Patient Records regulations: The Federal rules restrict any use of the information to criminally investigate or prosecute any alcohol or drug abuse patient.[facility] CenterIn the event this information is protected by the Federal Confidentiality of Alcohol and Drug Abuse Patient Records regulations: The Federal rules restrict any use of the information to criminally investigate or prosecute any alcohol or drug abuse patient.[facility] CenterIn the event this information is protected by the Federal Confidentiality of Alcohol and Drug Abuse Patient Records regulations: The Federal rules restrict any use of the information to criminally investigate or prosecute any alcohol or drug abuse patient.[facility] CenterIn the event this information is protected by the Federal Confidentiality of Alcohol and Drug Abuse Patient Records regulations: The Federal rules restrict any use of the information to criminally investigate or prosecute any alcohol or drug abuse patient.[facility] CenterIn the event this information is protected by the Federal Confidentiality of Alcohol and Drug Abuse Patient Records regulations: The Federal rules restrict any use of the information to criminally investigate or prosecute any alcohol or drug abuse patient.[facility] CenterIn the event this information is protected by the Federal Confidentiality of Alcohol and Drug Abuse Patient Records regulations: The Federal rules restrict any use of the information to criminally investigate or prosecute any alcohol or drug abuse patient.[facility] CenterIn the event this information is protected by the Federal Confidentiality of Alcohol and Drug Abuse Patient Records regulations: The Federal rules restrict any use of the information to criminally investigate or prosecute any alcohol or drug abuse patient.[facility] CenterIn the event this information is protected by the Federal Confidentiality of Alcohol and Drug Abuse Patient Records regulations: The Federal rules restrict any use of the information to criminally investigate or prosecute any alcohol or drug abuse patient.[facility] CenterIn the event this information is protected by the Federal Confidentiality of Alcohol and Drug Abuse Patient Records regulations: The Federal rules restrict any use of the information to criminally investigate or prosecute any alcohol or drug abuse patient.[facility] CenterIn the event this information is protected by the Federal Confidentiality of Alcohol and Drug Abuse Patient Records regulations: The Federal rules restrict any use of the information to criminally investigate or prosecute any alcohol or drug abuse patient.[facility] CenterIn the event this information is protected by the Federal Confidentiality of Alcohol and Drug Abuse Patient Records regulations: The Federal rules restrict any use of the information to criminally investigate or prosecute any alcohol or drug abuse patient.[facility] CenterIn the event this information is protected by the Federal Confidentiality of Alcohol and Drug Abuse Patient Records regulations: The Federal rules restrict any use of the information to criminally investigate or prosecute any alcohol or drug abuse patient.[facility] CenterIn the event this information is protected by the Federal Confidentiality of Alcohol and Drug Abuse Patient Records regulations: The Federal rules restrict any use of the information to criminally investigate or prosecute any alcohol or drug abuse patient.[facility] CenterIn the event this information is protected by the Federal Confidentiality of Alcohol and Drug Abuse Patient Records regulations: The Federal rules restrict any use of the information to criminally investigate or prosecute any alcohol or drug abuse patient.[facility] CenterIn the event this information is protected by the Federal Confidentiality of Alcohol and Drug Abuse Patient Records regulations: The Federal rules restrict any use of the information to criminally investigate or prosecute any alcohol or drug abuse patient.[facility] CenterIn the event this information is protected by the Federal Confidentiality of Alcohol and Drug Abuse Patient Records regulations: The Federal rules restrict any use of the information to criminally investigate or prosecute any alcohol or drug abuse patient.[facility] CenterIn the event this information is protected by the Federal Confidentiality of Alcohol and Drug Abuse Patient Records regulations: The Federal rules restrict any use of the information to criminally investigate or prosecute any alcohol or drug abuse patient.[facility] CenterIn the event this information is protected by the Federal Confidentiality of Alcohol and Drug Abuse Patient Records regulations: The Federal rules restrict any use of the information to criminally investigate or prosecute any alcohol or drug abuse patient.[facility] CenterIn the event this information is protected by the Federal Confidentiality of Alcohol and Drug Abuse Patient Records regulations: The Federal rules restrict any use of the information to criminally investigate or prosecute any alcohol or drug abuse patient.[facility] CenterIn the event this information is protected by the Federal Confidentiality of Alcohol and Drug Abuse Patient Records regulations: The Federal rules restrict any use of the information to criminally investigate or prosecute any alcohol or drug abuse patient.[facility] CenterIn the event this information is protected by the Federal Confidentiality of Alcohol and Drug Abuse Patient Records regulations: The Federal rules restrict any use of the information to criminally investigate or prosecute any alcohol or drug abuse patient.[facility] CenterIn the event this information is protected by the Federal Confidentiality of Alcohol and Drug Abuse Patient Records regulations: The Federal rules restrict any use of the information to criminally investigate or prosecute any alcohol or drug abuse patient.[facility] CenterIn the event this information is protected by the Federal Confidentiality of Alcohol and Drug Abuse Patient Records regulations: The Federal rules restrict any use of the information to criminally investigate or prosecute any alcohol or drug abuse patient.[facility] CenterIn the event this information is protected by the Federal Confidentiality of Alcohol and Drug Abuse Patient Records regulations: The Federal rules restrict any use of the information to criminally investigate or prosecute any alcohol or drug abuse patient.[facility] CenterIn the event this information is protected by the Federal Confidentiality of Alcohol and Drug Abuse Patient Records regulations: The Federal rules restrict any use of the information to criminally investigate or prosecute any alcohol or drug abuse patient.[facility] CenterIn the event this information is protected by the Federal Confidentiality of Alcohol and Drug Abuse Patient Records regulations: The Federal rules restrict any use of the information to criminally investigate or prosecute any alcohol or drug abuse patient.[facility] CenterIn the event this information is protected by the Federal Confidentiality of Alcohol and Drug Abuse Patient Records regulations: The Federal rules restrict any use of the information to criminally investigate or prosecute any alcohol or drug abuse patient.[facility] CenterIn the event this information is protected by the Federal Confidentiality of Alcohol and Drug Abuse Patient Records regulations: The Federal rules restrict any use of the information to criminally investigate or prosecute any alcohol or drug abuse patient.[facility] CenterIn the event this information is protected by the Federal Confidentiality of Alcohol and Drug Abuse Patient Records regulations: The Federal rules restrict any use of the information to criminally investigate or prosecute any alcohol or drug abuse patient.[facility] CenterIn the event this information is protected by the Federal Confidentiality of Alcohol and Drug Abuse Patient Records regulations: The Federal rules restrict any use of the information to criminally investigate or prosecute any alcohol or drug abuse patient.[facility] CenterIn the event this information is protected by the Federal Confidentiality of Alcohol and Drug Abuse Patient Records regulations: The Federal rules restrict any use of the information to criminally investigate or prosecute any alcohol or drug abuse patient.[facility] CenterIn the event this information is protected by the Federal Confidentiality of Alcohol and Drug Abuse Patient Records regulations: The Federal rules restrict any use of the information to criminally investigate or prosecute any alcohol or drug abuse patient.[facility] CenterIn the event this information is protected by the Federal Confidentiality of Alcohol and Drug Abuse Patient Records regulations: The Federal rules restrict any use of the information to criminally investigate or prosecute any alcohol or drug abuse patient.[facility] CenterIn the event this information is protected by the Federal Confidentiality of Alcohol and Drug Abuse Patient Records regulations: The Federal rules restrict any use of the information to criminally investigate or prosecute any alcohol or drug abuse patient.[facility] CenterIn the event this information is protected by the Federal Confidentiality of Alcohol and Drug Abuse Patient Records regulations: The Federal rules restrict any use of the information to criminally investigate or prosecute any alcohol or drug abuse patient.[facility] CenterIn the event this information is protected by the Federal Confidentiality of Alcohol and Drug Abuse Patient Records regulations: The Federal rules restrict any use of the information to criminally investigate or prosecute any alcohol or drug abuse patient.[facility] CenterIn the event this information is protected by the Federal Confidentiality of Alcohol and Drug Abuse Patient Records regulations: The Federal rules restrict any use of the information to criminally investigate or prosecute any alcohol or drug abuse patient.[facility] CenterIn the event this information is protected by the Federal Confidentiality of Alcohol and Drug Abuse Patient Records regulations: The Federal rules restrict any use of the information to criminally investigate or prosecute any alcohol or drug abuse patient.[facility] CenterIn the event this information is protected by the Federal Confidentiality of Alcohol and Drug Abuse Patient Records regulations: The Federal rules restrict any use of the information to criminally investigate or prosecute any alcohol or drug abuse patient.[facility] CenterIn the event this information is protected by the Federal Confidentiality of Alcohol and Drug Abuse Patient Records regulations: The Federal rules restrict any use of the information to criminally investigate or prosecute any alcohol or drug abuse patient.[facility] CenterIn the event this information is protected by the Federal Confidentiality of Alcohol and Drug Abuse Patient Records regulations: The Federal rules restrict any use of the information to criminally investigate or prosecute any alcohol or drug abuse patient.[facility] CenterIn the event this information is protected by the Federal Confidentiality of Alcohol and Drug Abuse Patient Records regulations: The Federal rules restrict any use of the information to criminally investigate or prosecute any alcohol or drug abuse patient.[facility] CenterIn the event this information is protected by the Federal Confidentiality of Alcohol and Drug Abuse Patient Records regulations: The Federal rules restrict any use of the information to criminally investigate or prosecute any alcohol or drug abuse patient.[facility] CenterIn the event this information is protected by the Federal Confidentiality of Alcohol and Drug Abuse Patient Records regulations: The Federal rules restrict any use of the information to criminally investigate or prosecute any alcohol or drug abuse patient.[facility] CenterIn the event this information is protected by the Federal Confidentiality of Alcohol and Drug Abuse Patient Records regulations: The Federal rules restrict any use of the information to criminally investigate or prosecute any alcohol or drug abuse patient.[facility] CenterIn the event this information is protected by the Federal Confidentiality of Alcohol and Drug Abuse Patient Records regulations: The Federal rules restrict any use of the information to criminally investigate or prosecute any alcohol or drug abuse patient.[facility] CenterIn the event this information is protected by the Federal Confidentiality of Alcohol and Drug Abuse Patient Records regulations: The Federal rules restrict any use of the information to criminally investigate or prosecute any alcohol or drug abuse patient.[facility] CenterIn the event this information is protected by the Federal Confidentiality of Alcohol and Drug Abuse Patient Records regulations: The Federal rules restrict any use of the information to criminally investigate or prosecute any alcohol or drug abuse patient.[facility] CenterIn the event this information is protected by the Federal Confidentiality of Alcohol and Drug Abuse Patient Records regulations: The Federal rules restrict any use of the information to criminally investigate or prosecute any alcohol or drug abuse patient.[facility] CenterIn the event this information is protected by the Federal Confidentiality of Alcohol and Drug Abuse Patient Records regulations: The Federal rules restrict any use of the information to criminally investigate or prosecute any alcohol or drug abuse patient.[facility] CenterIn the event this information is protected by the Federal Confidentiality of Alcohol and Drug Abuse Patient Records regulations: The Federal rules restrict any use of the information to criminally investigate or prosecute any alcohol or drug abuse patient.[facility] CenterIn the event this information is protected by the Federal Confidentiality of Alcohol and Drug Abuse Patient Records regulations: The Federal rules restrict any use of the information to criminally investigate or prosecute any alcohol or drug abuse patient.[facility] CenterIn the event this information is protected by the Federal Confidentiality of Alcohol and Drug Abuse Patient Records regulations: The Federal rules restrict any use of the information to criminally investigate or prosecute any alcohol or drug abuse patient.[facility] CenterIn the event this information is protected by the Federal Confidentiality of Alcohol and Drug Abuse Patient Records regulations: The Federal rules restrict any use of the information to criminally investigate or prosecute any alcohol or drug abuse patient.[facility] CenterIn the event this information is protected by the Federal Confidentiality of Alcohol and Drug Abuse Patient Records regulations: The Federal rules restrict any use of the information to criminally investigate or prosecute any alcohol or drug abuse patient.[facility] CenterIn the event this information is protected by the Federal Confidentiality of Alcohol and Drug Abuse Patient Records regulations: The Federal rules restrict any use of the information to criminally investigate or prosecute any alcohol or drug abuse patient.[facility] CenterIn the event this information is protected by the Federal Confidentiality of Alcohol and Drug Abuse Patient Records regulations: The Federal rules restrict any use of the information to criminally investigate or prosecute any alcohol or drug abuse patient.[facility] CenterIn the event this information is protected by the Federal Confidentiality of Alcohol and Drug Abuse Patient Records regulations: The Federal rules restrict any use of the information to criminally investigate or prosecute any alcohol or drug abuse patient.[facility] CenterIn the event this information is protected by the Federal Confidentiality of Alcohol and Drug Abuse Patient Records regulations: The Federal rules restrict any use of the information to criminally investigate or prosecute any alcohol or drug abuse patient.[facility] CenterIn the event this information is protected by the Federal Confidentiality of Alcohol and Drug Abuse Patient Records regulations: The Federal rules restrict any use of the information to criminally investigate or prosecute any alcohol or drug abuse patient.[facility] CenterIn the event this information is protected by the Federal Confidentiality of Alcohol and Drug Abuse Patient Records regulations: The Federal rules restrict any use of the information to criminally investigate or prosecute any alcohol or drug abuse patient.[facility] CenterIn the event this information is protected by the Federal Confidentiality of Alcohol and Drug Abuse Patient Records regulations: The Federal rules restrict any use of the information to criminally investigate or prosecute any alcohol or drug abuse patient.[facility] CenterIn the event this information is protected by the Federal Confidentiality of Alcohol and Drug Abuse Patient Records regulations: The Federal rules restrict any use of the information to criminally investigate or prosecute any alcohol or drug abuse patient.[facility] CenterIn the event this information is protected by the Federal Confidentiality of Alcohol and Drug Abuse Patient Records regulations: The Federal rules restrict any use of the information to criminally investigate or prosecute any alcohol or drug abuse patient.[facility] CenterIn the event this information is protected by the Federal Confidentiality of Alcohol and Drug Abuse Patient Records regulations: The Federal rules restrict any use of the information to criminally investigate or prosecute any alcohol or drug abuse patient.[facility] CenterIn the event this information is protected by the Federal Confidentiality of Alcohol and Drug Abuse Patient Records regulations: The Federal rules restrict any use of the information to criminally investigate or prosecute any alcohol or drug abuse patient.[facility] CenterIn the event this information is protected by the Federal Confidentiality of Alcohol and Drug Abuse Patient Records regulations: The Federal rules restrict any use of the information to criminally investigate or prosecute any alcohol or drug abuse patient.[facility] CenterIn the event this information is protected by the Federal Confidentiality of Alcohol and Drug Abuse Patient Records regulations: The Federal rules restrict any use of the information to criminally investigate or prosecute any alcohol or drug abuse patient.[facility] CenterIn the event this information is protected by the Federal Confidentiality of Alcohol and Drug Abuse Patient Records regulations: The Federal rules restrict any use of the information to criminally investigate or prosecute any alcohol or drug abuse patient.[facility] CenterIn the event this information is protected by the Federal Confidentiality of Alcohol and Drug Abuse Patient Records regulations: The Federal rules restrict any use of the information to criminally investigate or prosecute any alcohol or drug abuse patient.[facility] CenterIn the event this information is protected by the Federal Confidentiality of Alcohol and Drug Abuse Patient Records regulations: The Federal rules restrict any use of the information to criminally investigate or prosecute any alcohol or drug abuse patient.[facility] CenterIn the event this information is protected by the Federal Confidentiality of Alcohol and Drug Abuse Patient Records regulations: The Federal rules restrict any use of the information to criminally investigate or prosecute any alcohol or drug abuse patient.[facility] CenterIn the event this information is protected by the Federal Confidentiality of Alcohol and Drug Abuse Patient Records regulations: The Federal rules restrict any use of the information to criminally investigate or prosecute any alcohol or drug abuse patient.[facility] CenterIn the event this information is protected by the Federal Confidentiality of Alcohol and Drug Abuse Patient Records regulations: The Federal rules restrict any use of the information to criminally investigate or prosecute any alcohol or drug abuse patient.[facility] CenterIn the event this information is protected by the Federal Confidentiality of Alcohol and Drug Abuse Patient Records regulations: The Federal rules restrict any use of the information to criminally investigate or prosecute any alcohol or drug abuse patient.[facility] CenterIn the event this information is protected by the Federal Confidentiality of Alcohol and Drug Abuse Patient Records regulations: The Federal rules restrict any use of the information to criminally investigate or prosecute any alcohol or drug abuse patient.[facility] CenterIn the event this information is protected by the Federal Confidentiality of Alcohol and Drug Abuse Patient Records regulations: The Federal rules restrict any use of the information to criminally investigate or prosecute any alcohol or drug abuse patient.[facility] CenterIn the event this information is protected by the Federal Confidentiality of Alcohol and Drug Abuse Patient Records regulations: The Federal rules restrict any use of the information to criminally investigate or prosecute any alcohol or drug abuse patient.[facility] CenterIn the event this information is protected by the Federal Confidentiality of Alcohol and Drug Abuse Patient Records regulations: The Federal rules restrict any use of the information to criminally investigate or prosecute any alcohol or drug abuse patient.[facility] CenterIn the event this information is protected by the Federal Confidentiality of Alcohol and Drug Abuse Patient Records regulations: The Federal rules restrict any use of the information to criminally investigate or prosecute any alcohol or drug abuse patient.[facility] CenterIn the event this information is protected by the Federal Confidentiality of Alcohol and Drug Abuse Patient Records regulations: The Federal rules restrict any use of the information to criminally investigate or prosecute any alcohol or drug abuse patient.[facility] CenterIn the event this information is protected by the Federal Confidentiality of Alcohol and Drug Abuse Patient Records regulations: The Federal rules restrict any use of the information to criminally investigate or prosecute any alcohol or drug abuse patient.[facility] CenterIn the event this information is protected by the Federal Confidentiality of Alcohol and Drug Abuse Patient Records regulations: The Federal rules restrict any use of the information to criminally investigate or prosecute any alcohol or drug abuse patient.[facility] CenterIn the event this information is protected by the Federal Confidentiality of Alcohol and Drug Abuse Patient Records regulations: The Federal rules restrict any use of the information to criminally investigate or prosecute any alcohol or drug abuse patient.[facility] CenterIn the event this information is protected by the Federal Confidentiality of Alcohol and Drug Abuse Patient Records regulations: The Federal rules restrict any use of the information to criminally investigate or prosecute any alcohol or drug abuse patient.[facility] CenterIn the event this information is protected by the Federal Confidentiality of Alcohol and Drug Abuse Patient Records regulations: The Federal rules restrict any use of the information to criminally investigate or prosecute any alcohol or drug abuse patient.[facility] CenterIn the event this information is protected by the Federal Confidentiality of Alcohol and Drug Abuse Patient Records regulations: The Federal rules restrict any use of the information to criminally investigate or prosecute any alcohol or drug abuse patient.[facility] CenterIn the event this information is protected by the Federal Confidentiality of Alcohol and Drug Abuse Patient Records regulations: The Federal rules restrict any use of the information to criminally investigate or prosecute any alcohol or drug abuse patient.[facility] CenterIn the event this information is protected by the Federal Confidentiality of Alcohol and Drug Abuse Patient Records regulations: The Federal rules restrict any use of the information to criminally investigate or prosecute any alcohol or drug abuse patient.[facility] CenterIn the event this information is protected by the Federal Confidentiality of Alcohol and Drug Abuse Patient Records regulations: The Federal rules restrict any use of the information to criminally investigate or prosecute any alcohol or drug abuse patient.[facility] CenterIn the event this information is protected by the Federal Confidentiality of Alcohol and Drug Abuse Patient Records regulations: The Federal rules restrict any use of the information to criminally investigate or prosecute any alcohol or drug abuse patient.[facility] CenterIn the event this information is protected by the Federal Confidentiality of Alcohol and Drug Abuse Patient Records regulations: The Federal rules restrict any use of the information to criminally investigate or prosecute any alcohol or drug abuse patient.[facility] CenterIn the event this information is protected by the Federal Confidentiality of Alcohol and Drug Abuse Patient Records regulations: The Federal rules restrict any use of the information to criminally investigate or prosecute any alcohol or drug abuse patient.[facility] CenterIn the event this information is protected by the Federal Confidentiality of Alcohol and Drug Abuse Patient Records regulations: The Federal rules restrict any use of the information to criminally investigate or prosecute any alcohol or drug abuse patient.[facility] Reason for Visit (unrecogniz ed section and [...] RS PT BPPV Monik Hackett MD [address] [place] [address] [place]én[place] [address] [place] [address] Referral ID Status Reason Start Date Expiration Date Visits Re quested Visits Authorized [id number] Closed 02/22/2023 10/27/2023 1 1 Reason Comments Insurance Authorization Reason Onset Date Comments Refill Request 06/11/2023 Reason Comments ED Follow-up [facility] 06/29/23 Reason Comments Refill Request New [...] By Contac t Referred To Contact [facility] [place] Diagnoses Shortness of breath Procedures LUNG VOLUMES Yasmine Martinez, VETERANS' COORDINATOR.PORTFOLIO STRATEGIST [address] [place] [address] [address] Referral ID Status Reason Start Date Expiration Date V isits Requested Visits Authorized [id number] Closed Auto-Generate d Referral 11/06/2023 10/27/2024 1 1 Specialty Diagnoses / Procedures Referred By Contac t Referred To Contact [facility] Diagnoses Shortness of breath Procedures SPIROMETRY - BASELINE AND POST DILATOR BRNCDILAT RSPSE SPMTRY PRE&POST-BRNCDILAT ADMN Yasmine Martinez, VETERANS' COORDINATOR.PORTFOLIO STRATEGIST [address] [place] [id number] Respiratory [address] [address] Referral ID Status Reason Start Date Expiration Date V isits Requested Visits Authorized [id number] Closed Auto-Generate d Referral 11/06/2023 10/27/2024 1 1 Specialty Diagnoses / Procedures Referred By Contac t Referred To Contact [facility] [place] Diagnoses Hypoxia Shortness of breath Procedures OXIMETRY WITH AMBULATION NONINVASIVE EAR/PULSE OXIMETRY MULTIPLE DETER Yasmine Martinez, VETERANS' COORDINATOR.PORTFOLIO STRATEGIST [address] [place] [address] [address] Referral ID Status Reason Start Date Expiration Date V isits Requested Visits Authorized [id number] Closed Auto-Generate d Referral 12/03/2023 01/01/2025 1 1 Specialty Diagnoses / Procedures Referred By Contac t Referred To Contact [facility] [place] Diagnoses Shortness of breath Procedures LUNG DIFFUSION CAPACITY (DLCO) DIFFUSING CAPACITY Yasmine Martinez, VETERANS' COORDINATOR.PORTFOLIO STRATEGIST [address] [place] [address] [address] Referral ID Status Reason Start Date Expiration Date V isits Requested Visits Authorized [id number] Closed Auto-Generate d Referral 11/06/2023 10/27/2024 1 [...] DETERMINATION Camila Johns MD [address] [place] [address] Respiratory [place] [address] [place] [address] Referral ID Status Reason Start Date Expiration Date V isits Requested Visits Authorized [id number] Closed Auto-Generate d Referral 01/24/2024 02/22/2025 1 1 Reason Comments Established Patient 3 month follow up as thnj Reason Comments Recheck 6 month follow up [...] Care Teams (unrecognized sec tion and content) Excavating Contractor Relationship Specialty Start Date End Date Monik Hackett MD [address] [facility] [place] [address] PCP - General Internal Medicine 07/19/20 [facility] [address] [facility] [place] [address] Pharmacist Pharmacy 12/26/20 Excavating Contractor Relationship Specialty Start Date End Date Monik Hackett MD [address] [facility] [place] [address] PCP - General Internal Medicine 07/19/20 [facility] [address] [facility] [place] [address] Pharmacist Pharmacy 12/26/20 Excavating Contractor Relationship Specialty Start Date End Date Monik Hackett MD [address] [facility] [place] [address] PCP - General Internal Medicine 07/19/20 [facility] [address] [facility] [place] [address] Pharmacist Pharmacy 12/26/20 Excavating Contractor Relationship Specialty Start Date End Date Monik Hackett MD [address] [facility] [place] [address] PCP - General Internal Medicine 07/19/20 [facility] [address] [facility] [place] [address] Pharmacist Pharmacy 12/26/20 Excavating Contractor Relationship Specialty Start Date End Date Monik Hackett MD [address] [place] [address] PCP - General Internal Medicine 07/19/20 Jess Perry, [facility] [address] [place] [address] Pharmacist Pharmacy 12/26/20 Excavating Contractor Relationship Specialty Start Date End Date Monik Hackett MD [address] [place] [address] PCP - General Internal Medicine 07/19/20 Jess Perry, [facility] [address] [place] [address] Pharmacist Pharmacy 12/26/20 Excavating Contractor Relationship Specialty Start Date End Date Monik Hackett MD [address] [place] [address] PCP - General Internal Medicine 07/19/20 Jess Perry, [facility] [address] [place] [address] Pharmacist Pharmacy 12/26/20 Excavating Contractor Relationship Specialty Start Date End Date Monik Hackett MD [address] [place] [address] PCP - General Internal Medicine 07/19/20 Jess Perry, [facility] [address] [place] [address] Pharmacist Pharmacy 12/26/20 Excavating Contractor Relationship Specialty Start Date End Date Monik Hackett MD [address] [place] [address] PCP - General Internal Medicine 07/19/20 Jess Perry, [facility] [address] [place] [address] Pharmacist Pharmacy 12/26/20 Excavating Contractor Relationship Specialty Start Date End Date Monik Hackett MD [address] [place] [address] PCP - General Internal Medicine 07/19/20 Jess Perry, [facility] [address] [place] [address] Pharmacist Pharmacy 12/26/20 Excavating Contractor Relationship Specialty Start Date End Date Monik Hackett MD [address] [place] [address] PCP - General Internal Medicine 07/19/20 Jess Perry, [facility] [address] [place] [address] Pharmacist Pharmacy 12/26/20 Excavating Contractor Relationship Specialty Start Date End Date Monik Hackett MD [address] [place] [address] PCP - General Internal Medicine 07/19/20 Jess Perry, [facility] [address] [place] [address] Pharmacist Pharmacy 12/26/20 Excavating Contractor Relationship Specialty Start Date End Date Monik Hackett MD [address] [place] [address] PCP - General Internal Medicine 07/19/20 Jess Perry, [facility] [address] [place] [address] Pharmacist Pharmacy 12/26/20 Excavating Contractor Relationship Specialty Start Date End Date Monik Hackett MD [address] [place] [address] PCP - General Internal Medicine 07/19/20 Jess Perry, [facility] [address] [facility] [place] [address] Pharmacist Pharmacy 12/26/20 Excavating Contractor Relationship Specialty Start Date End Date Monik Hackett MD [address] [place] [place] [address] PCP - General Internal Medicine 07/19/20 [facility] [address] [place] [place] [address] Pharmacist Pharmacy 12/26/20 Excavating Contractor Relationship Specialty Start Date End Date Monik Hackett MD [address] [place] [place] [address] PCP - General Internal Medicine 07/19/20 [facility] [address] [place] [place] [address] Pharmacist Pharmacy 12/26/20 Excavating Contractor Relationship Specialty Start Date End Date Monik Hackett MD [address] [place] [place] [address] PCP - General Internal Medicine 07/19/20 [facility] [address] [place] [place] [address] Pharmacist Pharmacy 12/26/20 Excavating Contractor Relationship Specialty Start Date End Date Monik Hackett MD [address] [facility] [place] [address] PCP - General Internal Medicine 07/19/20 [facility] [address] [place] [address] Pharmacist Pharmacy 04/11/23 Excavating Contractor Relationship Specialty Start Date End Date Monik Hackett MD [address] [facility] [place] [address] PCP - General Internal Medicine 07/19/20 [place] [address] [place] [address] Pharmacist Pharmacy 04/11/23 Excavating Contractor Relationship Specialty Start Date End Date Monik Hackett MD [address] [place] [address] PCP - General Internal Medicine 07/19/20 [place] [address] [place] [address] Pharmacist Pharmacy 04/11/23 Excavating Contractor Relationship Specialty Start Date End Date Monik Hackett MD [address] [place] [address] PCP - General Internal Medicine 07/19/20 [place] [address] [place] [address] Pharmacist Pharmacy 04/11/23 Excavating Contractor Relationship Specialty Start Date End Date Monik Hackett MD [address] [place] [address] PCP - General Internal Medicine 07/19/20 [place] [address] [place] [address] Pharmacist Pharmacy 04/11/23 Excavating Contractor Relationship Specialty Start Date End Date Monik Hackett MD [address] [place] [address] PCP - General Internal Medicine 07/19/20 [place] [address] [place] [address] Pharmacist Pharmacy 04/11/23 Excavating Contractor Relationship Specialty Start Date End Date Monik Hackett MD [address] [place] [address] PCP - General Internal Medicine 07/19/20 [place] [address] [place] [address] Pharmacist Pharmacy 04/11/23 Excavating Contractor Relationship Specialty Start Date End Date Monik Hackett MD [address] [place] [address] PCP - General Internal Medicine 07/19/20 [place] [address] [place] [address] Pharmacist Pharmacy 04/11/23 Excavating Contractor Relationship Specialty Start Date End Date Monik Hackett MD [address] [place] [address] PCP - General Internal Medicine 07/19/20 [place] [address] [place] [address] Pharmacist Pharmacy 04/11/23 Excavating Contractor Relationship Specialty Start Date End Date Monik Hackett MD [address] [place] [address] PCP - General Internal Medicine 07/19/20 [place] [address] [place] [address] Pharmacist Pharmacy 04/11/23 Excavating Contractor Relationship Specialty Start Date End Date Monik Hackett MD [address] [place] [address] PCP - General Internal Medicine 07/19/20 [place] [address] [place] [address] Pharmacist Pharmacy 04/11/23 Excavating Contractor Relationship Specialty Start Date End Date Monik Hackett MD [address] [place] [address] PCP - General Internal Medicine 07/19/20 [place] [address] [place] [address] Pharmacist Pharmacy 04/11/23 Excavating Contractor Relationship Specialty Start Date End Date Monik Hackett MD [address] [place] [address] PCP - General Internal Medicine 07/19/20 Opal, [place] [address] [place] [address] Pharmacist Pharmacy 04/11/23 Excavating Contractor Relationship Specialty Start Date End Date Monik Hackett MD [address] [place] [address] PCP - General Internal Medicine 07/19/20 [place], [place] [address] [place] [address] Pharmacist Pharmacy 04/11/23 Excavating Contractor Relationship Specialty Start Date End Date Monik Hackett MD [address] [place] [address] PCP - General Internal Medicine 07/19/20 [place] [address] [place] [address] Pharmacist Pharmacy 04/11/23 Excavating Contractor Relationship Specialty Start Date End Date Monik Hackett MD [address] [facility] [place] [address] PCP - General Internal Medicine 07/19/20 [place]Nancie [place]ffily[place] [address] [place] [address] Pharmacist Pharmacy 04/11/23 Excavating Contractor Relationship Specialty Start Date End Date Monik Hackett MD [address] [facility] [place] [address] PCP - General Internal Medicine 07/19/20 [facility] [address] [place] [address] Pharmacist Pharmacy 12/26/20 04/10/23 Excavating Contractor Relationship Specialty Start Date End Date Monik Hackett MD [address] [facility] [place] [address] PCP - General Internal Medicine 07/19/20 [place] [address] [place] [address] Pharmacist Pharmacy 04/11/23 Excavating Contractor Relationship Specialty Start Date End Date Monik Hackett MD [address] [facility] [place] [address] PCP - General Internal Medicine 07/19/20 [place] [address] [place] [address] Pharmacist Pharmacy 04/11/23 Excavating Contractor Relationship Specialty Start Date End Date Monik Hackett MD [address] [place] [address] PCP - General Internal Medicine 07/19/20 [place] [address] [place] [address] Pharmacist Pharmacy 04/11/23 Excavating Contractor Relationship Specialty Start Date End Date Monik Hackett MD [address] [place] [address] PCP - General Internal Medicine 07/19/20 [place] [address] [place] [address] Pharmacist Pharmacy 04/11/23 Excavating Contractor Relationship Specialty Start Date End Date Monik Hackett MD [address] [place] [address] PCP - General Internal Medicine 07/19/20 [place] [address] [place] [address] Pharmacist Pharmacy 04/11/23 Excavating Contractor Relationship Specialty Start Date End Date Monik Hackett MD [address] [place] [address] PCP - General Internal Medicine 07/19/20 [place] [address] [place] [address] Pharmacist Pharmacy 04/11/23 Excavating Contractor Relationship Specialty Start Date End Date Monik Hackett MD [address] [place] [address] PCP - General Internal Medicine 07/19/20 [place] [address] [place] [address] Pharmacist Pharmacy 04/11/23 Excavating Contractor Relationship Specialty Start Date End Date Monik Hackett MD [address] [place] [address] PCP - General Internal Medicine 07/19/20 [place] [address] [place] [address] Pharmacist Pharmacy 04/11/23 Excavating Contractor Relationship Specialty Start Date End Date Monik Hackett MD [address] [place] [address] PCP - General Internal Medicine 07/19/20 [place] [address] [place] [address] Pharmacist Pharmacy 04/11/23 Excavating Contractor Relationship Specialty Start Date End Date Monik Hackett MD [address] [place] [address] PCP - General Internal Medicine 07/19/20 [place] [address] [place] [address] Pharmacist Pharmacy 04/11/23 Excavating Contractor Relationship Specialty Start Date End Date Monik Hackett MD [address] [place] [address] PCP - General Internal Medicine 07/19/20 [place] [address] [place] [address] Pharmacist Pharmacy 04/11/23 Excavating Contractor Relationship Specialty Start Date End Date Monik Hackett MD [address] [facility] [place] [address] PCP - General Internal Medicine 07/19/20 [place] [address] [place] [address] Pharmacist Pharmacy 04/11/23 Excavating Contractor Relationship Specialty Start Date End Date Monik Hackett MD [address] [place] [address] PCP - General Internal Medicine 07/19/20 [place] [address] [place] [address] Pharmacist Pharmacy 04/11/23 Excavating Contractor Relationship Specialty Start Date End Date Monik Hackett MD [address] [place] [address] PCP - General Internal Medicine 07/19/20 [place] [address] [place] [address] Pharmacist Pharmacy 04/11/23 Excavating Contractor Relationship Specialty Start Date End Date Monik Hackett MD [address] [place] [address] PCP - General Internal Medicine 07/19/20 [place] [address] [place] [address] Pharmacist Pharmacy 04/11/23 Excavating Contractor Relationship Specialty Start Date End Date Monik Hackett MD [address] [place] [address] PCP - General Internal Medicine 07/19/20 [place], [place] [address] [place] [address] Pharmacist Pharmacy 04/11/23 Excavating Contractor Relationship Specialty Start Date End Date Monik Hackett MD [address] [place] [address] PCP - General Internal Medicine 07/19/20 [place] [address] [place] [address] Pharmacist Pharmacy 04/11/23 Excavating Contractor Relationship Specialty Start Date End Date Monik Hackett MD [address] [place] [address] PCP - General Internal Medicine 07/19/20 [place] [address] [place] [address] Pharmacist Pharmacy 04/11/23 Excavating Contractor Relationship Specialty Start Date End Date Monik Hackett MD [address] [place] [address] PCP - General Internal Medicine 07/19/20 [place] [address] [place] [address] Pharmacist Pharmacy 04/11/23 Excavating Contractor Relationship Specialty Start Date End Date Monik Hackett MD [address] [place] [address] PCP - General Internal Medicine 07/19/20 [place] [address] [place] [address] Pharmacist Pharmacy 04/11/23 Excavating Contractor Relationship Specialty Start Date End Date Monik Hackett MD [address] [place] [address] PCP - General Internal Medicine 07/19/20 [facility] [address] [place] [address] Pharmacist Pharmacy 12/26/20 04/10/23 Excavating Contractor Relationship Specialty Start Date End Date Monik Hackett MD [address] [place] [address] PCP - General Internal Medicine 07/19/20 [facility] [address] [place] [address] Pharmacist Pharmacy 12/26/20 04/10/23 Excavating Contractor Relationship Specialty Start Date End Date Monik Hackett MD [address] [place] [address] PCP - General Internal Medicine 07/19/20 [place], [facility] [address] [place] [address] Pharmacist Pharmacy 04/11/23 Kelsi Alfred PA-C [address] [place] [address] Fast Food Assistant Restaurant Manager Family Medicine 10/04/24 Lala Harrison APRN.CNP [address] [place] [address] Fast Food Assistant Restaurant Manager Internal Medicine 10/04/24 Liliana Espinoza PA-C [address] [place] [address] Fast Food Assistant Restaurant Manager Family Medicine 10/04/24 Excavating Contractor Relationship Specialty Start Date End Date Monik Hackett MD [address] [place] [address] PCP - General Internal Medicine 07/19/20 [place] [address] [place] [address] Pharmacist Pharmacy 04/11/23 Kelsi Alfred PA-C [address] [place] [address] Fast Food Assistant Restaurant Manager Family Medicine 10/04/24 Lala Harrison APRN.PORTFOLIO STRATEGIST [address] [place] [address] Fast Food Assistant Restaurant Manager Internal Medicine 10/04/24 Liliana Espinoza PA-C [address] [place] [address] Fast Food Assistant Restaurant Manager Family Medicine 10/04/24 Excavating Contractor Relationship Specialty Start Date End Date Monik Hackett MD [address] [place] [address] PCP - General Internal Medicine 07/19/20 [place] [address] [place] [address] Pharmacist Pharmacy 04/11/23 Kelsi Alfred PA-C [address] [place] [address] Fast Food Assistant Restaurant Manager Family Medicine 10/04/24 Lala Harrison APRN.PORTFOLIO STRATEGIST [address] [facility] [place] [address] Fast Food Assistant Restaurant Manager Internal Medicine 10/04/24 Liliana Espinoza PA-C [address] [place] [address] Fast Food Assistant Restaurant Manager Family Medicine 10/04/24 Excavating Contractor Relationship Specialty Start Date End Date Monik Hackett MD [address] [place] [address] PCP - General Internal Medicine 07/19/[address] [phone] Pharmacist Pharmacy 04/11/23 Kelsi Alfred PA-C [address] [place] [address] Fast Food Assistant Restaurant Manager Family Medicine 10/04/24 Lala Harrison APRN.PORTFOLIO STRATEGIST [address] [place] [address] Fast Food Assistant Restaurant Manager Internal Medicine 10/04/24 Liliana Espinoza PA-C [address] [place] [address] Fast Food Assistant Restaurant Manager Family Medicine 10/04/24 Excavating Contractor Relationship Specialty Start Date End Date Monik Hackett MD [address] [place] [address] PCP - General Internal Medicine 07/19/20 [place] [address] [place] [phone] Pharmacist Pharmacy 04/11/23 Kelsi Alfred PA-C [address] [place] [address] Fast Food Assistant Restaurant Manager Family Medicine 10/04/24 Lala Harrison APRN.PORTFOLIO STRATEGIST [address] [place] [address] Fast Food Assistant Restaurant Manager Internal Medicine 10/04/24 Liliana Espinoza PA-C [address] [place] [address] Fast Food Assistant Restaurant Manager Family Medicine 10/04/24 Excavating Contractor Relationship Specialty Start Date End Date Monik Hackett MD [address] [place] [address] PCP - General Internal Medicine 07/19/20 Fior Joseph, [facility] [address] [place] [phone] Pharmacist Pharmacy 04/11/23 Kelsi Alfred PA-C [address] [place] [address] Fast Food Assistant Restaurant Manager Family Medicine 10/04/24 Lala Harrison APRN.PORTFOLIO STRATEGIST [address] [place] [address] Fast Food Assistant Restaurant Manager Internal Medicine 10/04/24 Liliana Espinoza PA-C [address] [place] [address] Fast Food Assistant Restaurant Manager Family Medicine 10/04/24 Excavating Contractor Relationship Specialty Start Date End Date Monik Hackett MD [address] [place] [address] PCP - General Internal Medicine 07/19/20 [place] [address] [place] [address] Pharmacist Pharmacy 04/11/23 Lala Harrison APRN.PORTFOLIO STRATEGIST [address] [place] [address] Fast Food Assistant Restaurant Manager Internal Medicine 10/04/24 Excavating Contractor Relationship Specialty Start Date End Date Monik Hackett MD [address] [place] [address] PCP - General Internal Medicine 07/19/20 [place] [address] [place] [address] Pharmacist Pharmacy 04/11/23 Lala Harrison APRN.PORTFOLIO STRATEGIST [address] [place] [address] Fast Food Assistant Restaurant Manager Internal Medicine 10/04/24 Excavating Contractor Relationship Specialty Start Date End Date Monik Hackett MD [address] [place] [address] PCP - General Internal Medicine 07/19/20 [place] [address] [place] [address] Pharmacist Pharmacy 04/11/23 Lala Harrison APRN.PORTFOLIO STRATEGIST [address] [place] [address] Fast Food Assistant Restaurant Manager Internal Medicine 10/04/24 Excavating Contractor Relationship Specialty Start Date End Date Monik Hackett MD [address] [facility] [place] [address] PCP - General Internal Medicine 07/19/20 [place] [address] [place] [address] Pharmacist Pharmacy 04/11/23 Lala Harrison APRN.PORTFOLIO STRATEGIST [address] [place] [address] Fast Food Assistant Restaurant Manager Internal Medicine 10/04/24 Excavating Contractor Relationship Specialty Start Date End Date Monik Hackett MD [address] [facility] [place] [address] PCP - General Internal Medicine 07/19/20 [place] [address] [place] [address] Pharmacist Pharmacy 04/11/23 Lala Harrison APRN.PORTFOLIO STRATEGIST [address] [place] [address] Fast Food Assistant Restaurant Manager Internal Medicine 10/04/24 Excavating Contractor Relationship Specialty Start Date End Date Monik Hackett MD [address] [place] [address] PCP - General Internal Medicine 07/19/20 [place] [address] [place] [address] Pharmacist Pharmacy 04/11/23 Lala Harrison APRN.PORTFOLIO STRATEGIST [address] [facility] [place] [address] Fast Food Assistant Restaurant Manager Internal Medicine 10/04/24 Excavating Contractor Relationship Specialty Start Date End Date Monik Hackett MD [address] [place] [address] PCP - General Internal Medicine 07/19/20 [place], [place] [address] [place] [address] Pharmacist Pharmacy 04/11/23 Lala Harrison APRN.PORTFOLIO STRATEGIST [address] [facility] [place] [address] Fast Food Assistant Restaurant Manager Internal Medicine 10/04/24 Excavating Contractor Relationship Specialty Start Date End Date Monik Hackett MD [address] [facility] [place] [address] PCP - General Internal Medicine 07/19/20 [place] [address] [place] [address] Pharmacist Pharmacy 04/11/23 Lala Harrison APRN.PORTFOLIO STRATEGIST [address] [place] [address] Fast Food Assistant Restaurant Manager Internal Medicine 10/04/24 Excavating Contractor Relationship Specialty Start Date End Date Monik Hackett MD [address] [facility] [place] [address] PCP - General Internal Medicine 07/19/20 [place] [address] [place] [address] Pharmacist Pharmacy 04/11/23 Lala Harrison APRN.PORTFOLIO STRATEGIST [address] [place] [address] Fast Food Assistant Restaurant Manager Internal Medicine 10/04/24 Excavating Contractor Relationship Specialty Start Date End Date Monik Hackett MD [address] [place], [place] [address] PCP - General Internal Medicine 07/19/20 [place] [address] [place] [address] Pharmacist Pharmacy 04/11/23 Lala Harrison APRN.PORTFOLIO STRATEGIST [address] [place], [place] [address] Fast Food Assistant Restaurant Manager Internal [facility] 10/04/24 Excavating Contractor Relationship Specialty Start Date End Date Monik Hackett MD [address] [facility] [place], [place] [address] PCP - General Internal Medicine 07/19/20 [place] [address] [place] [address] Pharmacist Pharmacy 04/11/23 Lala Harrison APRN.PORTFOLIO STRATEGIST [address] [place] [address] Fast Food Assistant Restaurant Manager Internal Medicine 10/04/24 FOR RECORDS PERTAINING TO [...] BE BASED ON THE PRIMARY CLINICAL RECORDS. [employer] [facility]. provides no warranty or guarantee of the accuracy or completeness of information in this document.
== END 2025-09-21 16:00 | disposition home or self-care (01) ==
PROVIDERS: Emergency Provider Emergency Medicine; PCP Internal Medicine; Visit Provider Emergency Medicine
DX: M79.604 Pain in right leg (principal); F31.9 Bipolar disorder, unspecified; E11.9 Type 2 diabetes mellitus without complications; Z79.4 Long term (current) use of insulin; E87.6 Hypokalemia; M79.605 Pain in left leg; I10 Essential (primary) hypertension; M79.7 Fibromyalgia; Z79.899 Other long term (current) drug therapy
CPT/HCPCS: 80048; 85025; 99282; A4216

== ENCOUNTER 2025-09-23 20:44 | Emergency (ER) | payer MEDICAID, SELFPAY ==
[2025-09-23 20:45] VITALS: BP 159/70; PULSE 80; RESP 18; TEMP 36.4; O2SAT 97; BMI 41.5
--- OUTSIDE RECORDS SUMMARY | 2025-09-23 21:51 | XMS RPT_ITS | CCD ---
Author Organization [facility] Team Providers Care Online Facilitator Name Role Phone Marco A MCDERMOTT, Monik Primary Care Provider [facility], Keti Unavailable Monik Hackett MD Primary Care Provider [facility], Fior Unavailable Marco A MCDERMOTT, Monik Primary Care Provider GANTA, MONIK Primary Care Unavailable CARYL DIRECTOR CONSUM[facility]IRS-WILLY RODRIGUEZ Primary Care Physician [facility], Keti Unavailable Monik Hackett MD Primary Care Provider Klesi Alfred PA-C Unavailable Older DIRECTOR CONSUM[facility]FFA[facility].MICHAEL, Lala Unavailable Liliana Espinoza PA-C Unavailable [phone] [employer] Attending Unavailable Ganta, Monik Primary [...] (2 sources) Acetaminophen Drug Allergy 0 Intolerance [facility] Anti-Epileptic Agents (2 sources) gabapentin Drug Allergy 0 Intolerance [facility] glimepiride (2 sources) glimepiride Drug Allergy 0 Intolerance [facility] Haloperidol (2 sources) Haloperidol Drug Allergy 0 Other: See Comments [facility] liraglutide (2 sources) liraglutide Drug Allergy 0 GI Upset [facility] Glendale (2 sources) Glendale Drug Allergy 0 Other: See Comments [facility] metFORMIN (2 sources) metFORMIN Drug Allergy 0 Diarrhea [facility] Penicillins (antibiotic) (2 sources) Penicillins Drug Allergy 7 Unknown [facility] Povidone-Iodine (2 sources) Povidone-Iodine Drug Allergy 7 Unknown [facility] Work Phone: (20 sources) Acetaminophen; Translations: [ACETAMINOPHEN] Drug Allergy 0 Intolerance [facility] (20 sources) gabapentin; Translations: [GABAPENTIN] Drug Allergy 0 Intolerance [facility] Work Phone: (20 sources) glimepiride; Translations: [GLIMEPIRIDE] Drug Allergy 0 Intolerance [facility] Work Phone: (20 sources) Haloperidol; Translations: [HALOPERIDOL] Drug Allergy 0 Other: See Comments [facility] Work Phone: (20 sources) liraglutide; Translations: [LIRAGLUTIDE] Drug Allergy 0 GI Upset [facility] Work Phone: (20 sources) [place]; Translations: [LITHIUM] Drug Allergy 0 Other: See Comments [facility] Work Phone: (20 sources) metFORMIN; Translations: [METFORMIN] Drug Allergy 0 Diarrhea [facility] Work Phone: (7 sources) Penicillins; Translations: [PENICILLINS] Propensity to adverse reactions to drug 7 Unknown [facility] Work Phone: (20 sources) Povidone-Iodine; Translations: [POVIDONE-IODINE] Drug Allergy 7 Unknown [facility] Work Phone: (20 sources) Penicillins Propensity to adverse reactions to drug 7 Unknown [facility] Work Phone: (3 sources) traMADol; Translations: [tramadol] Drug Allergy [facility] (14 sources) Penicillins Propensity to adverse reactions to drug 7 Unknown [facility] (1 source) Acetaminophen Drug Allergy 5 [facility] Repository (1 source) Amoxicillin Drug Allergy 5 [facility] Repository (1 source) Haloperidol Drug Allergy 5 [facility] Repository (1 source) Haloperidol Drug Allergy 5 [facility] Repository (1 source) Glendale Drug Allergy 5 [facility] Repository (1 source) Naproxen Drug Allergy 5 [facility] Repository (1 source) risperiDONE; Translations: [RISPERIDONE] Drug Allergy 5 [facility] Repository Medications Current Medications Medication Drug Class(es) Dates Sig (Normalized) Sig (Original) acetaminophen 325 mg / HYDROcodone bitartrate 5 mg oral tablet (1 source) Opioid Agonist Start: 07-15-2023 End: 07-18-2023 take 1 tablet by mouth every eight hours as needed for pain Watson 325- 5 mg oral tablet Dose = 1 tab(s), Oral, q8h, PRN as needed for pain, X 3 day(s), # 9 tab(s), 0 Refill(s), Fibromyalgia, 116 Start Date: 07/15/23 Stop Date: 07/18/23 Status: Ordered [id number] 200 actuat albuterol 0.09 mg/actuat metered dose [...] Take 1 tablet by mouth twice weekly [id number], then decrease to 1 tablet weekly. 24 [...] Take 1 tablet by mouth twice weekly [id number], then decrease to 1 tablet weekly. 24 capsule 2 10/14/2020 09/24/2022 Discontinued Comment on above: Take 1 capsule by mo [facility] two times a week. TO BE TAKEN ORALLY DIRECTED. Take 1 tablet by mouth twice weekly [id number], then decrease to 1 tablet weekly. ferrous [...] Comment on above: Take 1 tablet by [facility] once daily. Alternate 2 pills with 1 [...] Chloride (20 sources) Start: 07-09-2023 Potassium Chloride (Xwe-Gdar-Nol 10) 10 mEq oral tablet, extended release 0 Refill(s) Start Date: 07/09/23 Status: Ordered Medication Dispense Status: Completed Total Allowed Fills: 1 Fills Dispensed: 0 Start: 07-09-2023 Potassium Chlo ride (Lbc-Qcsu-Jxv 10) 10 mEq oral tablet, extended release [...] Comment on above: Take 1 capsule by [facility] once daily. 0.5 ml dulaglutide [...] 11-10-2024 07-12-2023 Episodic Other aftercare (2 sources) custodial (current) use of insulin; Translations: [Controlled type 2 diabetes mellitus without complication, with long-term current use of insulin (HCC)] Onset: 01-23-2023 Episodic Other aftercare (1 source) Other jail (current) drug therapy; Translations: [Medication management] Onset: [...] Test Name Value Interpretation Reference Range Facility [facility] 09-03-2025 CNOV Office Visit (INTMWS ) IRMA STEWART ([id number]) 1960 F Date Time Provider Department 09/03/25 1:20 PM LALA HARRISON INTMWS During your visit today, we recorded the following information about you: Pulse Respiration Blood pressure Weight 80/minute 16/minute 132/80 110.2 kg Lala Harrison APRN.[facility] 09/06/2025 12:56 PM Signed CC: Patient presents with: Recheck: BP follow up HPI Irma Stewart is a 65 year old female who presents today for BP follow up. Recently had metoprolol increased to better manage this. Recording using [employer] software for draft documentation of the visit was discussed with the patient/authorized accounts receivable representative; all questions welcomed and answered. Patient/authorized accounts receivable representative agreed to proceed Irma Stewart is [...] vaginal ALLERGIES Betadine [Povidone-Iodine], Glimepiride, Haldol [Haloperidol], [place], Metformin, Neurontin [Gabapentin], Penicillins, Risperidone, Tylenol [Acetaminophen], [...] on 08/25/2025) (more content not included)... [facility] 08-27-2025 CNPN Telephone (INTMWS) IRMA STEWART ([id number]) 1960 F Date Time Provider Department 08/27/25 [...] MILLIGRAMS Oral for 30 Days - Insulin [place], Disposable, (BD ULTRAFINE III MINI PEN) 31 [...] 4 hours as needed. - PULSE OXIMETER [facility] Use as needed to monitor oxygen level and heart rate - omeprazole (PRILOSEC) 20 mg capsule Take 1 capsule by mouth once daily. - DULoxetine 60 mg CDRS Take 60 mg by mouth two times a day. 100 MG by mouth daily - ZOLOFT 100 MG TAB Take one (1) and one sameer (more content not included)... Normal [facility] CNOVon 08-25-2025 CNOV Office Visit (INTMWS ) IRMA STEWART ([id number]) 1960 F Date Time Provider Department 08/25/25 [...] of eigh (more content not included)... Normal [facility] XR LUMBAR 3V AP/LAT/L5-S1on 08-25-2025 XR LUMBAR [...] fracture. Degenerative disease of the lumbar spine. Medical Operations Supervisor: PSCB Transcribe Date/Time: Sep 02 2025 10:07A Dictated by : MAGDA ARTEAGA MD This examination was interpreted and the report reviewed and electronically signed by: MAGDA ARTEAGA MD on Sep 02 2025 10:08AM EST [id number] [facility] ([id number]) 1960 F Date Time Provider Department 08/23/25 [...] metoprolol 75 mg twice daily prescription. Reports [facility] has not received the new order. Contacted [facility]. Medication was out of stock and ordered. [...] follow up appointment. Thank you Lala Harrison APRN.[facility] [facility] Lisa Helm MA 08/23/2025 3:37 PM Signed [...] Date Reviewed: 08/20/2025 Reviewed by: Lala Harrison APRN.[facility] - Fully Assessed Reason for Visit: Patient [...] DULoxetine (CYMB (more content not included)... Normal [facility] CNOVon 08-20-2025 CNOV Office Visit (INTMWS ) IRMA STEWART ([id number]) 1960 F Date Time Provider Department 08/20/25 9:20 AM LALA HARRISON INTMWS During your visit today, we recorded the following information about you: Pulse Respiration Blood pressure Weight 92/minute 16/minute 142/82 112.5 kg Lala Harrison APRN.CNP 08/20/2025 11:01 AM Signed CC: Patient presents with: Elsie BELL Irma Stewart is a 65 year old female who presents today for multiple concerns. Is accompanied by significant other. Recording using [employer]Us software for draft documentation of the visit was discussed with the patient/authorized accounts receivable representative; all questions welcomed and answered. Patient/authorized accounts receivable representative agreed to proceed Irma Stewart is [...] vaginal ALLERGIES Betadine [Povidone-Iodine], Glimepiride, Haldol [Haloperidol], [place], Metformin, Neurontin [Gabapentin], Penicillins, Tylenol [Acetaminophen], and [...] 50,000 un (more content not included)... Normal [facility] HbA1c (Bld)on 08-20-2025 Average glucose Estimated from glycated hemoglobin (Bld) [Mass/Vol] 157 mg/dL Normal [facility] Comment on above: Order Comment: Speci men Type: BLOOD SPECIMENOrdering Facility: [facility] Address: [address] [place] [address] Result Comment: eAG: (Estimated average glucose) is a calculated value from HgbA1c and is accounts receivable representative of the average blood glucose level in the last 2-3 month period. Performed By: #### 5 5454-3 ####[facility] LAB[facility]IA [id number] [place] [address] [place] HbA1c (Bld) [Mass fraction] 7.1 % High 4.3-5.6 [facility] Comment on above: Order Comment: Corky jiménez Type: BLOOD SPECIMENOrdering Facility: [facility] Address: [address] [place] [address] Result Comment: Amer [place] Diabetes Association guidelines indicate that patients with HgbA1c in the range 5.7-6.4% are at increased risk for development of diabetes, and intervention by lifestyle modification may be beneficial. HgbA1c greater or equal to 6.5% is considered diagnostic of diabetes. Performed By: #### 5 5454-3 ####[facility] LABCLIA [id number] [place] [address] [place] TSH SerPl-aCncon 08-20-2025 TSH Qn 1.650 m[IU]/L Normal 0.270-4.200 [facility] Comment on above: Order Comment: Corky jiménez Type: BLOOD SPECIMEN [facility] Facility[facility] Address: [address] [place] [address] Performed By: #### 1 989-3 #### [facility] CLIA [id number] [address] [place], [place] [address] [place] .Auto Diffon 08-17-2025 Basophil, Absolute 0.1 10 3/mcL Normal 0.0-0.3 [facility] Comment on above: Performed By: #### C RACHELLE PATEL GFR, ANEU, MDW, [place] MEJIA #### [address] [address] Basophils/100 WBC (Bld) 1.1 % Normal 0.0-2.5 [facility] Comment on above: Performed By: #### C RACHELLE PATEL GFR, ANEU, MDW, [place] MEJIA #### [address] [address] Eosinophil, Absolute 0.0 10 3/mcL Normal 0.0-0.7 [facility] Comment on above: Performed By: #### C BC, ADIFF, GFR, ANEU, MDW, TROPHS, BMP #### [address] [address] Eosinophils/100 WBC (Bld) 0.4 % Normal 0.0-6.0 [facility] Comment on above: Performed By: #### C BC, ADIFF, GFR, ANEU, MDW, TROPHS, BMP #### [address] [address] Lymphocyte, Absolute 2.0 10 3/mcL Normal 0.9-4.3 [facility] Comment on above: Performed By: #### C BC, ADIFF, GFR, ANEU, MDW, TROPHS, BMP #### [address] [address] Lymphocytes/100 WBC (Bld) 29.9 % Normal 20.0-40.0 [facility] Comment on above: Performed By: #### C BC, ADIFF, GFR, ANEU, MDW, TROPHS, BMP #### [address] [address] Monocyte, Absolute 0.4 10 3/mcL Normal 0.1-1.4 [facility] Comment on above: Performed By: #### C BC, ADIFF, GFR, ANEU, MDW, TROPHS, BMP #### [address] [address] Monocytes/100 WBC (Bld) 5.3 % Normal 2.0-13.0 [facility] Comment on above: Performed By: #### C BC, ADIFF, GFR, ANEU, MDW, TROPHS, BMP #### [address] [address] Neutrophils/100 WBC (Bld) 63.3 % Normal 50.0-75.0 [facility] Comment on above: Performed By: #### C BC, ADIFF, GFR, ANEU, MDW, TROPHS, BMP #### [address] [address] .GFRon 08-17-2025 Estimated Glomerular Filtration Rate 86 ml/min/1.73sqm Normal [facility] Comment on above: Result Comment: Stages [...] ADIFF, GFR, ANEU, MDW, TROPHS, BMP #### [address] [place], [place] [address] .MDWon 08-17-2025 Monocyte Distribution Width 14.86 Normal 0.00-20.00 [facility] Comment on above: Result Comment: For ED adult patients suspected of sepsis, MDW<=20.0 does not rule out sepsis or risk of sepsis Performed By: #### C BC, ADIFF, GFR, ANEU, MDW, TROPHS, BMP #### [address] [address] .NEUABSon 08-17-2025 Neutrophil, Absolute 4.3 10 3/mcL Normal 2.3-8.1 [facility] Comment on above: Performed By: #### C BC, ADIFF, GFR, ANEU, MDW, TROPHS, BMP #### [address] [place], [place] [address] BMPon 08-17-2025 BUN/Creatinine Ratio 14 ratio Normal 7-27 [facility] Comment on above: Performed By: #### C BC, ADIFF, GFR, ANEU, MDW, TROPHS, BMP #### [address] [place], [place] [address] Calcium [Mass/Vol] 9.1 mg/dL Normal 8.4-10.2 [facility] Comment on above: Performed By: #### C BC, ADIFF, GFR, ANEU, MDW, TROPHS, BMP #### [address] [address] Chloride [Moles/Vol] 100 mmol/L Normal 98-107 [facility] Comment on above: Performed By: #### C BC, ADIFF, GFR, ANEU, MDW, TROPHS, BMP #### [address] [address] CO2 [Moles/Vol] 31 mmol/L Normal 23-31 [facility] Comment on above: Performed By: #### C BC, ADIFF, GFR, ANEU, MDW, TROPHS, BMP #### [place] [address] Creatinine [Mass/Vol] 0.77 mg/dL Normal 0.51-0.95 [facility] Comment on above: Performed By: #### C BC, ADIFF, GFR, ANEU, MDW, TROPHS, BMP #### [place] [address] Electrolyte Balance 7.0 mEq/L Normal 4.0-15.0 [facility] Comment on above: Performed By: #### C BC, ADIFF, GFR, ANEU, MDW, TROPHS, BMP #### [address] [address] Glucose [Mass/Vol] 187 mg/dL High 80-115 [facility] Comment on above: Performed By: #### C BC, ADIFF, GFR, ANEU, MDW, TROPHS, BMP #### [address] [address] Potassium [Moles/Vol] 3.7 mmol/L Normal 3.5-5.1 [facility] Comment on above: Performed By: #### C BC, ADIFF, GFR, ANEU, MDW, TROPHS, BMP #### [place] [address] Sodium [Moles/Vol] 138 mmol/L Normal 136-145 [facility] Comment on above: Performed By: #### C BC, ADIFF, GFR, ANEU, MDW, TROPHS, BMP #### [place] [address] Urea nitrogen [Mass/Vol] 11 mg/dL Normal 7-18 [facility] Comment on above: Performed By: #### C BC, ADIFF, GFR, ANEU, MDW, TROPHS, BMP #### [place] [address] CBCon 08-17-2025 Erythrocyte distribution width (RBC) [Ratio] 13.4 % Normal 11.5-15.5 [facility] Comment on above: Performed By: #### C BC, ADIFF, GFR, ANEU, MDW, TROPHS, BMP #### [place] [address] Hematocrit (Bld) [Volume fraction] 43.0 % Normal 34.0-46.0 [facility] Comment on above: Performed By: #### C BC, ADIFF, GFR, ANEU, MDW, TROPHS, BMP #### [place] [address] Hgb 14.7 G/dL Normal 12.0-16.0 [facility] Comment on above: Performed By: #### C BC, ADIFF, GFR, ANEU, MDW, TROPHS, BMP #### [place] [address] MCH (RBC) [Entitic mass] 30.7 pg Normal 27.0-33.0 [facility] Comment on above: Performed By: #### C BC, ADIFF, GFR, ANEU, MDW, TROPHS, BMP #### [place] [address] MCHC 34.1 G/dL Normal 32.0-36.0 [facility] Comment on above: Performed By: #### C BC, ADIFF, GFR, ANEU, MDW, TROPHS, BMP #### [place] [address] MCV (RBC) [Entitic vol] 90.1 fL Normal 80.0-99.0 [facility] Comment on above: Performed By: #### C BC, ADIFF, GFR, ANEU, MDW, TROPHS, BMP #### [address] [address] Platelet 191 10 3/mcL Normal 150-450 [facility] Comment on above: Performed By: #### C BC, ADIFF, GFR, ANEU, MDW, TROPHS, BMP #### [address] [address] Platelet mean volume (Bld) [Entitic vol] 8.4 fL Normal 6.6-10.5 [facility] Comment on above: Performed By: #### C BC, ADIFF, GFR, ANEU, MDW, TROPHS, BMP #### [address] [address] RBC 4.77 10 6/mcL Normal 4.10-5.30 [facility] Comment on above: Performed By: #### C BC, ADIFF, GFR, ANEU, MDW, TROPHS, BMP #### [address] [address] WBC 6.8 10 3/mcL Normal 4.5-10.8 [facility] Comment on above: Performed By: #### C BC, ADIFF, GFR, ANEU, MDW, TROPHS, BMP #### [address] [address] LABORATORYOrdered By: SYSTEM SYSTEM on 08-17-2025 Troponin I.cardiac DL <= 0.01 ng/mL [Mass/Vol] 4 ng/L Normal 0 - 51 ng/L AO ADM SS Comment on above: Interpretive Data: H igh Sensitive Troponin I Reference Ranges: Female: 0-51 ng/L Male: 0-76 ng/L Testing performed on [place] using a homogeneous sandwich chemiluminescent immunoassay based on [employer] technology. Basophils (Bld) [#/Vol] 0.1 103/mcL Normal [...] ng/L Male: 0-76 ng/L Testing performed on [place] using a homogeneous sandwich chemiluminescent immunoassay based on [employer] technology. Urea nitrogen [Mass/Vol] 11 mg/dL Normal 7 - 18 mg/dL AO ADM SS Urea nitrogen/Creatinine [Mass ratio] 14 ratio Normal 7 - 27 ratio AO ADM SS WBC (Bld) [#/Vol] 6.8 103/mcL Normal 4.5 - 10.8 10^3/mcL AO Workflow [facility] High Sensitivity Troponin I 4 ng/L Normal 0-51 [facility] Comment on above: Result Comment: High Sensitive Troponin I Reference Ranges: Female: 0-51 ng/L Male: 0-76 ng/L Testing performed on [employer] using a homogeneous sandwich chemiluminescent immunoassay based on [employer] technology. Performed By: #### T [facility] #### [address] [place], [place] [address] High Sensitivity Troponin I <4 Normal 0-51 [facility] Comment on above: Result Comment: High Sensitive Troponin I Reference Ranges: Female: 0-51 ng/L Male: 0-76 ng/L Testing performed on [employer] EX[employer] using a homogeneous sandwich chemiluminescent immunoassay based on [employer] technology. Performed By: #### C BC, ADIFF, GFR, ANEU, MDW, TROPHS, BMP #### [address] [place], [place] [address] XR CHEST 1 VIEWon 08-17-2025 XR CHEST [...] 5:58:59 PM Ordering Provider: ASHLEY MARTIN Normal [facility] 12 Lead EKGon 08-02-2025 12 Lead EKG [facility] Cardiovascular Services [address] [place] [address] 12 Lead EKG 08/02/25 0146 MR#: [id number] Acct: [id number] Name: IRMA STEWART Rep #: [id number] : 1960 65 From: Robert Dominguez MD [...] Abnormal ECG Confirmed by ANGELA MCDERMOTT, ROBERT ([id number]), clinical editor CHANDRIKA NICHOLSON ([id number]) on 08/02/2025 8:39:42 AM Referred By: Confirmed By: ROBERT DOMINGUEZ MD 08/02/25 0839 Date Robert Dominguez MD CC: Dr. Monik Hackett MD; Dr. Veronica Farmer, Signed Normal [facility] CBC W/Diff, Automatedon 10-0 Absolute Lymph 3.03 X10 3/uL Normal 0.83-4.51 [facility] Comment on above: Performed By: #### L 100.0100, L500.4050 #### [facility] [address] [place], [address] Absolute Neut 3.2 X10 3/uL Normal 2.0-7.7 [facility] Comment on above: Performed By: #### L 100.0100, L500.4050 #### [facility] [address] [place], [address] Basophils/100 WBC (Bld) 0.6 % Normal 0-1 [facility] Comment on above: Performed By: #### L 100.0100, L500.4050 #### [facility] [address] [place], [address] Eosinophils/100 WBC (Bld) 1.2 % Normal 0-5 [facility] Comment on above: Performed By: #### L 100.0100, L500.4050 #### [facility] [address] [place], [address] Erythrocyte distribution width (RBC) [Ratio] 12.6 % Normal 11.6-14.6 [facility] Comment on above: Performed By: #### L 100.0100, L500.4050 #### [facility] [address] [place], [address] Hematocrit (Bld) [Volume fraction] 41.3 % Normal 37-47 [facility] Comment on above: Performed By: #### L 100.0100, L500.4050 #### [facility] [address] [place], [address] Hemoglobin (Bld) [Mass/Vol] 13.7 g/dL Normal 12.0-15.0 [facility] Comment on above: Performed By: #### L 100.0100, L500.4050 #### [facility] [address] [place], [address] IG% 0.100 Normal 0.0-0.9 [facility] Comment on above: Result Comment: IG% - Immature Granulocytes (promyelocytes, myelocytes and metamyelocytes) > 1% indicates that a LEFT SHIFT is Present. Performed By: #### L 100.0100, L500.4050 #### [facility] [address] [place], [address] Lymphocytes/100 WBC (Bld) 44.1 % High 19-41 [facility] Comment on above: Performed By: #### L 100.0100, L500.4050 #### [facility] [address] [place], [address] MCH (RBC) [Entitic mass] 29.9 pg Normal 27.0-32.0 [facility] Comment on above: Performed By: #### L 100.0100, L500.4050 #### [facility] [address] [place], [address] MCHC (RBC) [Mass/Vol] 33.2 g/dL Normal 32-36 [facility] Comment on above: Performed By: #### L 100.0100, L500.4050 #### [facility] [address] [place], [address] MCV (RBC) [Entitic vol] 90.2 fL Normal 81-99 [facility] Comment on above: Performed By: #### L 100.0100, L500.4050 #### [facility] [address] [place], [address] Monocytes/100 WBC (Bld) 7.0 % Normal 0-10 [facility] Comment on above: Performed By: #### L 100.0100, L500.4050 #### [facility] [address] [place], [address] Neutrophils/100 WBC (Bld) 47.0 % Normal 47-70 [facility] Comment on above: Performed By: #### L 100.0100, L500.4050 #### [facility] [address] [place], [address] Nucleated RBC (Bld) [#/Vol] 0 10*3/uL Normal 0-5 [facility] Comment on above: Performed By: #### L 100.0100, L500.4050 #### [facility] [address] [place], [address] Platelet mean volume (Bld) [Entitic vol] 10.7 fL Normal 6.2-12.0 [facility] Comment on above: Performed By: #### L 100.0100, L500.4050 #### [facility] [address] [place], [address] Platelets (Bld) [#/Vol] 172 10*3/uL Normal 150-450 [facility] Comment on above: Performed By: #### L 100.0100, L500.4050 #### [facility] [address] [place], [address] RBC (Bld) [#/Vol] 4.58 10*6/uL Normal 4.2-5.4 [facility] Comment on above: Performed By: #### L 100.0100, L500.4050 #### [facility] [address] [place], [address] RDW SD 40.9 fl Normal 35.1-43.9 [facility] Comment on above: Performed By: #### L 100.0100, L500.4050 #### [facility] [address] [place], [address] WBC (Bld) [#/Vol] 6.9 10*3/uL Normal 4.4-11.0 [facility] Comment on above: Performed By: #### L 100.0100, L500.4050 #### [facility] [address] [place], [address] Comprehensive Metabolic [facility] 08-02-2025 Albumin [Mass/Vol] 4.4 g/dL Normal 3.4-4.8 [facility] Comment on above: Performed By: #### L 100.0100, L500.4050 #### [facility] [facility] [address] [place], [address] Albumin/Globulin [Mass ratio] 1.8 {ratio} Normal 0.9-2.4 [facility] Comment on above: Performed By: #### L 100.0100, L500.4050 #### [facility] [address] [place], [address] ALK PHOS 87 U/L Normal 35-104 [facility] Comment on above: Performed By: #### L 100.0100, L500.4050 #### [facility] [address] [place], [address] ALT [Catalytic activity/Vol] 17 U/L Normal <=34 [facility] Comment on above: Performed By: #### L 100.0100, L500.4050 #### [facility] [address] [place], [address] AST [Catalytic activity/Vol] 21 U/L Normal <=31 [facility] Comment on above: Performed By: #### L 100.0100, L500.4050 #### [facility] [address] [place], [address] Bilirubin [Mass/Vol] 0.31 mg/dL Normal 0.00-1.30 [facility] Comment on above: Performed By: #### L 100.0100, L500.4050 #### [facility] [address] [place], [address] BUN/CRE 17.8 RATIO Normal 10-20 [facility] Comment on above: Performed By: #### L 100.0100, L500.4050 #### [facility] [address] [place], [address] Calcium [Mass/Vol] 9.0 mg/dL Normal 7.6-11.0 [facility] Comment on above: Performed By: #### L 100.0100, L500.4050 #### [facility] [address] [place], [address] Chloride [Moles/Vol] 97 mmol/L Low 98-108 [facility] Comment on above: Performed By: #### L 100.0100, L500.4050 #### [facility] [address] [place], [address] CO2 [Moles/Vol] 26.1 mmol/L Normal 21.0-32.0 [facility] Comment on above: Performed By: #### L 100.0100, L500.4050 #### [facility] [address] [place], [address] Creatinine [Mass/Vol] 0.90 mg/dL Normal 0.70-1.20 [facility] Comment on above: Performed By: #### L 100.0100, L500.4050 #### [facility] [address] [place], [address] GAP 15 Normal 5-15 [facility] Comment on above: Performed By: #### L 100.0100, L500.4050 #### [facility] [address] [place], [address] GFR/1.73 sq M.predicted among non-blacks MDRD (S/P/Bld) [Vol rate/Area] 71 mL/min/{1.73_m2} Normal >60 [facility] Comment on above: Result Comment: mL/m in/1.73m2 CKD-EPI Creatinine Equation (2020) Performed By: #### L 100.0100, L500.4050 #### [facility] [address] [place], [address] Globulin (S) [Mass/Vol] 2.4 g/dL Normal 2.2-4.2 [facility] Comment on above: Performed By: #### L 100.0100, L500.4050 #### [facility] [address] [place], [address] Glucose [Mass/Vol] 241 mg/dL High 70-99 [facility] Comment on above: Performed By: #### L 100.0100, L500.4050 #### [facility] [address] [place] [place], [address] Potassium [Moles/Vol] 3.5 mmol/L Normal 3.3-5.1 [facility] Comment on above: Performed By: #### L 100.0100, L500.4050 #### [facility] [address] [place], [address] Sodium [Moles/Vol] 138 mmol/L Normal 133-145 [facility] Comment on above: Performed By: #### L 100.0100, L500.4050 #### [facility] [address] [place], [address] T PROT 6.8 g/dL Normal 5.9-8.4 [facility] Comment on above: Performed By: #### L 100.0100, L500.4050 #### [facility] [address] [place], [address] Urea nitrogen [Mass/Vol] 16 mg/dL Normal 4-19 [facility] Comment on above: Performed By: #### L 100.0100, L500.4050 #### [facility] [address] [place], [address] Emergency Department Summary on 08-02-2025 Emergency Department Summary [facility] Medical Records Department [address] [place] [address] Emergency Department Summary 08/02/25 MR#: [id number] Acct: [id number] Name: IRMA STEWART CHACHA Rep #: [id number] : 1960 65 From: Veronica Farmer DO [...] She has a new prescriber at the [facility] and was prescribed 400 mg of [...] taking her blood pressure every night recently. [facility] Medical History Fibromyalgia Osteoarthritis DDD (degenerative [...] Allergy Other Verified 08/02/25 01:13 Haldol) lithium ([place]) Allergy Other Verified 08/02/25 01:13 naproxen sodium [...] 18 14 (more content not included)... Normal [facility] Brain/Head without Contrasto n 07-31-2025 Brain/Head without Contrast [facility] Imaging Services [address] [place] [address] Brain/Head without Contrast MR#: [id number] Acct: [id number] Name: IRMA STEWART Rep #: [id number] : 1960 F 65 From: Jerry zhou MD PCP: Dr. Monik Hackett MD Status: REG ER Study: Brain/Head without Contrast Date of Exam: 02/19 Exam# [id number] Ordering Dr: Jose Khoury MD PROCEDURE: BRAIN/HEAD [...] be considered as clinically warranted. Reading Location: [place] [address] CC: Dr. Jose Khoury MD; Dr. Monik Hackett MD Medical Operations Supervisor: Signed Normal [facility] CBC W/Diff, Automatedon 10-0 -2024 Absolute Lymph 2.65 X10 3/uL Normal 0.83-4.51 [facility] Comment on above: Performed By: #### L 100.0100, L500.4050 #### [facility] [address] [place], [address] Absolute Neut 2.8 X10 3/uL Normal 2.0-7.7 [facility] Comment on above: Performed By: #### L 100.0100, L500.4050 #### [facility] [address] [place], [address] Basophils/100 WBC (Bld) 0.7 % Normal 0-1 [facility] Comment on above: Performed By: #### L 100.0100, L500.4050 #### [facility] [address] [place], [address] Eosinophils/100 WBC (Bld) 1.7 % Normal 0-5 [facility] Comment on above: Performed By: #### L 100.0100, L500.4050 #### [facility] [address] [place], [address] Erythrocyte distribution width (RBC) [Ratio] 12.7 % Normal 11.6-14.6 [facility] Comment on above: Performed By: #### L 100.0100, L500.4050 #### [facility] [address] [place], [address] Hematocrit (Bld) [Volume fraction] 41.5 % Normal 37-47 [facility] Comment on above: Performed By: #### L 100.0100, L500.4050 #### [facility] [address] [place], [address] Hemoglobin (Bld) [Mass/Vol] 13.7 g/dL Normal 12.0-15.0 [facility] Comment on above: Performed By: #### L 100.0100, L500.4050 #### [facility] [address] [place], [address] IG% 0.200 Normal 0.0-0.9 [facility] Comment on above: Result Comment: IG% - Immature Granulocytes (promyelocytes, myelocytes and metamyelocytes) > 1% indicates that a LEFT SHIFT is Present. Performed By: #### L 100.0100, L500.4050 #### [facility] [address] [place], [address] Lymphocytes/100 WBC (Bld) 44.5 % High 19-41 [facility] Comment on above: Performed By: #### L 100.0100, L500.4050 #### [facility] [address] [place], [address] MCH (RBC) [Entitic mass] 30.1 pg Normal 27.0-32.0 [facility] Comment on above: Performed By: #### L 100.0100, L500.4050 #### [facility] [address] [place], [address] MCHC (RBC) [Mass/Vol] 33.0 g/dL Normal 32-36 [facility] Comment on above: Performed By: #### L 100.0100, L500.4050 #### [facility] [address] [place], [address] MCV (RBC) [Entitic vol] 91.2 fL Normal 81-99 [facility] Comment on above: Performed By: #### L 100.0100, L500.4050 #### [facility] [address] [place], [address] Monocytes/100 WBC (Bld) 6.7 % Normal 0-10 [facility] Comment on above: Performed By: #### L 100.0100, L500.4050 #### [facility] [address] [place], [address] Neutrophils/100 WBC (Bld) 46.2 % Low 47-70 [facility] Comment on above: Performed By: #### L 100.0100, L500.4050 #### [facility] [address] [place], [address] Nucleated RBC (Bld) [#/Vol] 0 10*3/uL Normal 0-5 [facility] Comment on above: Performed By: #### L 100.0100, L500.4050 #### [facility] [address] [place], [address] Platelet mean volume (Bld) [Entitic vol] 10.3 fL Normal 6.2-12.0 [facility] Comment on above: Performed By: #### L 100.0100, L500.4050 #### [facility] [address] [place], [address] Platelets (Bld) [#/Vol] 164 10*3/uL Normal 150-450 [facility] Comment on above: Performed By: #### L 100.0100, L500.4050 #### [facility] [address] [place], [address] RBC (Bld) [#/Vol] 4.55 10*6/uL Normal 4.2-5.4 [facility] Comment on above: Performed By: #### L 100.0100, L500.4050 #### [facility] [address] [place], [address] RDW SD 41.9 fl Normal 35.1-43.9 [facility] Comment on above: Performed By: #### L 100.0100, L500.4050 #### [facility] [address] [place], [address] WBC (Bld) [#/Vol] 6.0 10*3/uL Normal 4.4-11.0 [facility] Comment on above: Performed By: #### L 100.0100, L500.4050 #### [facility] [address] [place], [address] Comprehensive Metabolic Prof ilon 07-31-2025 Albumin [Mass/Vol] 4.0 g/dL Normal 3.4-4.8 [facility] Comment on above: Performed By: #### L 100.0100, L500.4050 #### [facility] [address] [place], [address] Albumin/Globulin [Mass ratio] 1.6 {ratio} Normal 0.9-2.4 [facility] Comment on above: Performed By: #### L 100.0100, L500.4050 #### [facility] [address] [place], [address] ALK PHOS 82 U/L Normal 35-104 [facility] Comment on above: Performed By: #### L 100.0100, L500.4050 #### [facility] [address] [place], [address] ALT [Catalytic activity/Vol] 18 U/L Normal <=34 [facility] Comment on above: Performed By: #### L 100.0100, L500.4050 #### [facility] [address] [place], [address] AST [Catalytic activity/Vol] 21 U/L Normal <=31 [facility] Comment on above: Performed By: #### L 100.0100, L500.4050 #### [facility] [address] [place], [address] Bilirubin [Mass/Vol] 0.20 mg/dL Normal 0.00-1.30 [facility] Comment on above: Performed By: #### L 100.0100, L500.4050 #### [facility] [address] [place], [address] BUN/CRE 17.4 RATIO Normal 10-20 [facility] Comment on above: Performed By: #### L 100.0100, L500.4050 #### [facility] [address] [place], [address] Calcium [Mass/Vol] 9.1 mg/dL Normal 7.6-11.0 [facility] Comment on above: Performed By: #### L 100.0100, L500.4050 #### [facility] [address] [place], [address] Chloride [Moles/Vol] 101 mmol/L Normal 98-108 [facility] Comment on above: Performed By: #### L 100.0100, L500.4050 #### [facility] [address] [place], [address] CO2 [Moles/Vol] 27.3 mmol/L Normal 21.0-32.0 [facility] Comment on above: Performed By: #### L 100.0100, L500.4050 #### [facility] [address] [place], [address] Creatinine [Mass/Vol] 0.77 mg/dL Normal 0.70-1.20 [facility] Comment on above: Performed By: #### L 100.0100, L500.4050 #### [facility] [address] [place], [address] ECRCL 91.94 ml/min Normal 50-250 [facility] Comment on above: Performed By: #### L 100.0100, L500.4050 #### [facility] [address] [place], [address] GAP 12 Normal 5-15 [facility] Comment on above: Performed By: #### L 100.0100, L500.4050 #### [facility] [address] [place], [address] GFR/1.73 sq M.predicted among non-blacks MDRD (S/P/Bld) [Vol rate/Area] 87 mL/min/{1.73_m2} Normal >60 [facility] Comment on above: Result Comment: mL/m in/1.73m2 CKD-EPI Creatinine Equation (2020) Performed By: #### L 100.0100, L500.4050 #### [facility] [address] [place], [address] Globulin (S) [Mass/Vol] 2.5 g/dL Normal 2.2-4.2 [facility] Comment on above: Performed By: #### L 100.0100, L500.4050 #### [facility] [address] [place], [address] Glucose [Mass/Vol] 207 mg/dL High 70-99 [facility] Comment on above: Performed By: #### L 100.0100, L500.4050 #### [facility] [address] [place], [address] Potassium [Moles/Vol] 3.8 mmol/L Normal 3.3-5.1 [facility] Comment on above: Performed By: #### L 100.0100, L500.4050 #### [facility] [address] [place], [address] Sodium [Moles/Vol] 140 mmol/L Normal 133-145 [facility] Comment on above: Performed By: #### L 100.0100, L500.4050 #### [facility] [address] [place], [address] T PROT 6.6 g/dL Normal 5.9-8.4 [facility] Comment on above: Performed By: #### L 100.0100, L500.4050 #### [facility] [address] [place], [address] Urea nitrogen [Mass/Vol] 13 mg/dL Normal 4-19 [facility] Comment on above: Performed By: #### L 100.0100, L500.4050 #### [facility] [address] [place], [address] Emergency Department Summary on 07-31-2025 Emergency Department Summary [facility] Medical Records Department [address] [place] [address] Emergency Department Summary 07/31/25 MR#: [id number] Acct: [id number] Name: IRMA STEWART Rep #: [id number] : 1960 65 From: Jose Khoury MD [...] new psychiatrist in July for medication management. [facility] Medical History Fibromyalgia Osteoarthritis DDD (degenerative [...] topical TID ##1 4 09/30/23 Rx powder ([facility]) Oxybutynin Chloride [Ditropan Xl] 5 mg [...] Allergy Other Verified 09/30/23 18:56 Haldol) lithium ([place]) Allergy Other Verified 09/30/23 18:56 naproxen sodium [...] Gastrointestinal Gastro (more content not included)... Normal [facility] Urinalysis, Completeon 07-31 EPI,SQUAMOUS 0-5 SEEN Normal - [facility] Comment on above: Order Comment: RITA CTOR TO SPECIFY Performed By: #### L 400.0001 #### [facility] [address] [place], [place], [address] BACTERIA 0 SEEN Normal None Seen [facility] Comment on above: Order Comment: RITA CTOR TO SPECIFY Performed By: #### L 400.0001 #### [facility] [address] [place], [address] Mucus Ql (Urine sed) 0 SEEN Normal [facility] Comment on above: Order Comment: RITA CTOR TO SPECIFY Performed By: #### L 400.0001 #### [facility] [address] [place], [address] RBC 0 SEEN Normal 0-5 [facility] Comment on above: Order Comment: RITA CTOR TO SPECIFY Performed By: #### L 400.0001 #### [facility] [address] [place], [address] WBC 0 SEEN Normal 0-5 [facility] Comment on above: Order Comment: RITA CTOR TO SPECIFY Performed By: #### L 400.0001 #### [facility] [address] [place], [place], [address] CNPNon 07-30-2025 CNPN Nurse Triage ([facility] ) IRMA STEWART ([id number]) 1960 F Date Time Provider Department 07/30/25 [...] Additional Information on file. Protocols Used Neurologic Zucorqi-Jgpcc-RW Allergies As of Date: 07/30/2025 Noted Allergy [...] a day. (more content not included)... Normal [facility] Urinalysis complete panel (U )on 07-29-2025 Bacteria LM.HPF (Urine sed) [#/Area] Negative Normal Negative [facility] Comment on above: Order Comment: Speci men Type: BLOOD SPECIMEN Ordering Facility: [facility] Address: [address] [place] [address] Performed By: #### 1 989-3 #### [facility] CLIA [id number] [address] [place] [address] [place] Bilirubin Ql (U) Negative Normal Negative [facility] Comment on above: Order Comment: Speci men Type: BLOOD SPECIMEN Ordering Facility: [facility] Address: [address] [place] [address] Performed By: #### 1 989-3 #### [facility] CLIA [id number] [address] [place] [address] [place] Clarity (Unsp spec) Clear Normal Clear [facility] Comment on above: Order Comment: Speci men Type: BLOOD SPECIMEN Ordering Facility: [facility] Address: [address] [place] [address] Performed By: #### 1 989-3 #### [facility] CLIA [id number] [address] [place] [address] [place] Color (U) Yellow Normal Yellow [facility] Comment on above: Order Comment: Speci men Type: BLOOD SPECIMEN Ordering Facility: [facility] Address: [address] [place] [address] Performed By: #### 1 989-3 #### [facility] CLIA [id number] [address] [place] [address] [place] Epithelial cells LM.HPF (Urine sed) [#/Area] None Seen Normal [facility] Comment on above: Order Comment: Speci men Type: BLOOD SPECIMEN Ordering Facility: [facility] Address: [address] [place] [address] Performed By: #### 1 989-3 #### [facility] CLIA [id number] [address] [place] [address] [place] Glucose Test strip (U) [Mass/Vol] Negative Normal Negative [facility] Comment on above: Order Comment: Speci men Type: BLOOD SPECIMEN Ordering Facility: [facility] Address: [address] [place] [address] Performed By: #### 1 989-3 #### [facility] CLIA [id number] [address] [place] [address] [place] Hemoglobin Ql (U) Negative Normal Negative [facility] Comment on above: Order Comment: Speci men Type: BLOOD SPECIMEN Ordering Facility: [facility] Address: [address] [place] [address] Performed By: #### 1 989-3 #### [facility] CLIA [id number] [address] [place] [address] [place] Hyaline casts (Urine sed) [#/Area] 0 /[LPF] Normal 0 /LPF [facility] Comment on above: Order Comment: Speci men Type: BLOOD SPECIMEN Ordering Facility: [facility] Address: [address] [place] [address] Performed By: #### 1 989-3 #### [facility] CLIA [id number] [address] [place] [address] [place] Ketones Ql (U) Negative Normal Negative [facility] Comment on above: Order Comment: Speci men Type: BLOOD SPECIMEN Ordering Facility: [facility] Address: [address] [place] [address] Performed By: #### 1 989-3 #### [facility] CLIA [id number] [address] [place] [address] [place] Leukocyte esterase Test strip Ql (U) Negative Normal Negative [facility] Comment on above: Order Comment: Speci men Type: BLOOD SPECIMEN Ordering Facility: [facility] Address: [address] [place] [address] Performed By: #### 1 989-3 #### [facility] CLIA [id number] [address] [place] [address] [place] Nitrite Ql (U) Negative Normal Negative [facility] Comment on above: Order Comment: Speci men Type: BLOOD SPECIMEN Ordering Facility: [facility] Address: [address] [place] [address] Performed By: #### 1 989-3 #### [facility] CLIA [id number] [address] [place] [address] [place] pH (U) 6.5 [pH] Normal 5.0-8.0 [facility] Comment on above: Order Comment: Speci men Type: BLOOD SPECIMEN Ordering Facility: [facility] Address: [address] [place] [address] Performed By: #### 1 989-3 #### [facility] CLIA [id number] [address] [place] [address] [place] Protein (U) [Mass/Vol] Negative Normal Negative [facility] Comment on above: Order Comment: Speci men Type: BLOOD SPECIMEN Ordering Facility: [facility] Address: [address] [place] [address] Performed By: #### 1 989-3 #### [facility] CLIA [id number] [address] [place] [address] [place] RBC LM.HPF (Urine sed) [#/Area] 0-2 /HPF Normal 0-2 /HPF [facility] Comment on above: Order Comment: Speci men Type: BLOOD SPECIMEN Ordering Facility: [facility] Address: [address] [place] [address] Performed By: #### 1 989-3 #### [facility] CLIA [id number] [address] [place] [address] [place] Specific gravity (U) [Rel density] 1.015 Normal 1.005-1.030 [facility] Comment on above: Order Comment: Speci men Type: BLOOD SPECIMEN Ordering Facility: [facility] Address: [address] [place] [address] Performed By: #### 1 989-3 #### [facility] CLIA [id number] [address] [place] [address] [place] Urobilinogen Ql (U) 0.2 EU/dL Normal 0.2-1.0 EU/dL [facility] Comment on above: Order Comment: Speci men Type: BLOOD SPECIMEN Ordering Facility: [facility] Address: [address] [place] [address] Performed By: #### 1 989-3 #### [facility] CLIA [id number] [address] [place] [address] [place] WBC LM.HPF (Urine sed) [#/Area] 0-5 /HPF Normal 0-5 /HPF [facility] Comment on above: Order Comment: Speci men Type: BLOOD SPECIMEN Ordering Facility: [facility] Address: [address] [place] [address] Performed By: #### 1 989-3 #### [facility] CLIA [id number] [address] [place] [address] [place] CNOVon 07-20-2025 CNOV Office Visit (INTM[facility] ) IRMA STEWART ([id number]) 1960 F Date Time Provider Department 07/20/25 [...] follow up with your dentist regarding your beach lifeguard, 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 We discussed [...] Reason for Visit Follow up HPI Irma tSewart is a 65-year-old female with a history [...] fighting depre (more content not included)... Normal [facility] Ferritin SerPl-mCncon 2024 Ferritin [Mass/Vol] 247.0 ng/mL High 14.7-205.1 [facility] Comment on above: Order Comment: Speci men Type: BLOOD SPECIMENOrdering Facility: [facility] Address: [address] [place] [address] Performed By: #### 5 0190-8, 2276-4 ####[facility] [id number] [place] [address] [place] Iron and Iron binding capaci ty panelon 07-20-2025 Iron [Mass/Vol] 70 ug/dL Normal 41-186 [facility] Comment on above: Order Comment: Speci men Type: BLOOD SPECIMENOrdering Facility: [facility] Address: [address] [place] [address] Performed By: #### 5 0190-8, 2276-4 ####[facility] [id number] [address] [place] Iron binding capacity [Mass/Vol] 247 ug/dL Normal 232-386 [facility] Comment on above: Order Comment: Speci men Type: BLOOD SPECIMENOrdering Facility: [facility] Address: [address] [place] [address] Performed By: #### 5 0190-8, 6-4 ####[facility] [id number] [place] [address] [place] Iron/TIBC [Molar ratio] 28.3 % Normal 15.0-57.0 [facility] Comment on above: Order Comment: Speci men Type: BLOOD SPECIMENOrdering Facility: [facility] Address: [address] [place] [address] Performed By: #### 5 0190-8, 6-4 ####[facility] [id number] [place] [id number] [place] XR KNEE 4V [...] Right TKA is noted. IMPRESSION: Advanced osteoarthrosis Medical Operations Supervisor: JADON Transcribe Date/Time: Jul 24 2025 9:37A Dictated by : ANDREW GARCÍA MD This examination was interpreted and the report reviewed and electronically signed by: ANDREW GARCÍA MD on Jul 24 2025 9:38AM EST [id number] Normal [facility] ALBUMIN/CREATININE RATIO, UR INEon 04-17-2025 Albumin DL <= 20 mg/L (U) [Mass/Vol] mg/dL Normal [facility] Comment on above: Order Comment: Speci men Type: URINE SPECIMENOrdering Facility: [facility] Address: [address] [place] [address] Performed By: #### U ACR ####[facility] [id number] [place] [address] [place] Albumin/Creatinine (U) [Mass ratio] Normal [facility] Comment on above: Order Comment: Corky jiménez Type: URINE SPECIMENOrdering Facility: [facility] Address: [address] [place] [address] Result Comment: Not calculated Adult Male and Female Nephrotic Criteria: <30 mg/g is considered normal to mildly increased 30-300 mg/g is considered moderately increased >300 mg/g is considered severely increased KDIGO. (2013). KDIGO 2012 Clinical Practice Guideline for the Evaluation and Management of Chronic Kidney Disease. Official Journal of the International Society of Nephrology, 3(1), 1-150. Performed By: #### U ACR ####[facility] [id number] [place] [address] [place] Creatinine (U) [Mass/Vol] 38.8 mg/dL Normal 20.0-300.0 [facility] Comment on above: Order Comment: Speci men Type: URINE SPECIMENOrdering Facility: [facility] Address: [address] [place] [address] Performed By: #### U ACR ####[facility] [id number] [place] [address] [place] Urinalysis complete panel (U )on 04-17-2025 Bacteria LM.HPF (Urine sed) [#/Area] Negative Normal Negative [facility] Comment on above: Order Comment: Speci men Type: URINE SPECIMEN [facility] Address: [address] [place] [address] Performed By: #### 2 4356-8 #### [facility] CLIA [id number] [address] [place] [address] [place] Bilirubin Ql (U) Negative Normal Negative [facility] Comment on above: Order Comment: Speci men Type: URINE SPECIMEN [facility] Address: [address] [place] [address] Performed By: #### 2 4356-8 #### [facility] CLIA [id number] [address] [place] [address] [place] Clarity (Unsp spec) Clear Normal Clear [facility] Comment on above: Order Comment: Speci men Type: URINE SPECIMEN [facility] Address: [address] [place] [address] Performed By: #### 2 4356-8 #### [facility] CLIA [id number] [address] [place] [address] [place] Color (U) Yellow Normal Yellow [facility] Comment on above: Order Comment: Speci men Type: URINE SPECIMEN [facility] Address: [address] [place] [address] Performed By: #### 2 4356-8 #### [facility] CLIA [id number] [address] [place] [address] [place] Epithelial cells LM.HPF (Urine sed) [#/Area] None Seen Normal [facility] Comment on above: Order Comment: Speci men Type: URINE SPECIMEN [facility] Address: [address] [place] [address] Performed By: #### 2 4356-8 #### [facility] CLIA [id number] [address] [place] [address] [place] Glucose Test strip (U) [Mass/Vol] Negative Normal Negative [facility] Comment on above: Order Comment: Speci men Type: URINE SPECIMEN [facility] Address: [address] [place] [address] Performed By: #### 2 4356-8 #### [facility] CLIA [id number] [address] [place] [address] [place] Hemoglobin Ql (U) Negative Normal Negative [facility] Comment on above: Order Comment: Speci men Type: URINE SPECIMEN [facility] Address: [address] [place] [address] Performed By: #### 2 4356-8 #### [facility] CLIA [id number] [address] [place] [address] [place] Hyaline casts (Urine sed) [#/Area] 0 /[LPF] Normal 0 /LPF [facility] Comment on above: Order Comment: Speci men Type: URINE SPECIMEN [facility] Address: [address] [place] [address] Performed By: #### 2 4356-8 #### [facility] CLIA [id number] [address] [place] [address] [place] Ketones Ql (U) Negative Normal Negative [facility] Comment on above: Order Comment: Speci men Type: URINE SPECIMEN [facility] Address: [address] [place] [address] Performed By: #### 2 4356-8 #### [facility] CLIA [id number] [place] [address] [place] Leukocyte esterase Test strip Ql (U) Negative Normal Negative [facility] Comment on above: Order Comment: Speci men Type: URINE SPECIMEN [facility] Address: [address] [place] [address] Performed By: #### 2 4356-8 #### [facility] CLIA [id number] [address] [place] [address] [place] Nitrite Ql (U) Negative Normal Negative [facility] Comment on above: Order Comment: Speci men Type: URINE SPECIMEN [facility] Address: [address] [place] [address] Performed By: #### 2 4356-8 #### [facility] CLIA [id number] [address] [place] [address] [place] pH (U) 7.0 [pH] Normal <8.5 [facility] Comment on above: Order Comment: Speci men Type: URINE SPECIMEN [facility] Address: [address] [place] [address] Performed By: #### 2 4356-8 #### [facility] CLIA [id number] [address] [place] [address] [place] Protein (U) [Mass/Vol] Negative Normal Negative [facility] Comment on above: Order Comment: Speci men Type: URINE SPECIMEN [facility] Address: [address] [place] [address] Performed By: #### 2 4356-8 #### [facility] CLIA [id number] [address] [place] [address] [place] RBC LM.HPF (Urine sed) [#/Area] 0-2 /HPF Normal 0-2 /HPF [facility] Comment on above: Order Comment: Speci men Type: URINE SPECIMEN [facility] Address: [address] [place] [address] Performed By: #### 2 4356-8 #### [facility] CLIA [id number] [address] [place] [address] [place] Specific gravity (U) [Rel density] 1.010 Normal 1.005-1.030 [facility] Comment on above: Order Comment: Speci men Type: URINE SPECIMEN [facility] Address: [address] [place] [address] Performed By: #### 2 4356-8 #### [facility] CLIA [id number] [address] [place] [address] [place] Urobilinogen Ql (U) 0.2 EU/dL Normal 0.2-1.0 EU/dL [facility] Comment on above: Order Comment: Speci men Type: URINE SPECIMEN [facility] Address: [address] [place] [address] Performed By: #### 2 4356-8 #### [facility] [place] [id number] [address] [place] [address] [place] WBC LM.HPF (Urine sed) [#/Area] 0-5 /HPF Normal 0-5 /HPF [facility] Comment on above: Order Comment: Speci men Type: URINE SPECIMEN [facility] Address: [address] [place] [address] Performed By: #### 2 4356-8 #### [facility] CLIA [id number] [address] [place] [address] [place] CBC W Auto Differential pane l (Bld)on 04-16-2025 Basophils (Bld) [#/Vol] 0.06 10*3/uL [facility] Basophils/100 WBC (Bld) 0.9 % [facility] Differential cell count method Nom (Bld) Auto [facility] Eosinophils (Bld) [#/Vol] 0.13 10*3/uL [facility] Eosinophils/100 WBC (Bld) 2 % [facility] Erythrocyte distribution width (RBC) [Ratio] 13 % 11.5 - 15.0 % [facility] Hematocrit (Bld) [Volume fraction] 42.3 % 36.0 - 46.0 % [facility] Hemoglobin (Bld) [Mass/Vol] 13.9 g/dL 11.5 - 15.5 g/dL [facility] Immature granulocytes (Bld) [#/Vol] [facility] Immature granulocytes/100 WBC (Bld) 0.2 % [facility] Lymphocytes (Bld) [#/Vol] 2.71 10*3/uL [facility] Lymphocytes/100 WBC (Bld) 41.7 % [facility] MCH (RBC) [Entitic mass] 30.2 pg 26.0 - 34.0 pg [facility] MCHC (RBC) [Mass/Vol] 32.9 g/dL 30.5 - 36.0 g/dL [facility] MCV (RBC) [Entitic vol] 91.8 fL 80.0 - 100.0 fL [facility] Monocytes (Bld) [#/Vol] 0.5 10*3/uL [facility] Monocytes/100 WBC (Bld) 7.7 % [facility] Neutrophils (Bld) [#/Vol] 3.09 10*3/uL [facility] Neutrophils/100 WBC (Bld) 47.5 % [facility] Nucleated RBC (Bld) [#/Vol] [facility] Nucleated RBC/100 WBC (Bld) [Ratio] 0 % /100 WBC [facility] Platelet mean volume (Bld) [Entitic vol] 10.2 fL 9.0 - 12.7 fL [facility] Platelets (Bld) [#/Vol] 172 10*3/uL [facility] RBC (Bld) [#/Vol] 4.61 10*6/uL 3.90 - 5.2 0 m/uL [facility] WBC (Bld) [#/Vol] 6.5 10*3/uL [facility] Basophils (Bld) [#/Vol] 0.06 10*3/uL Normal <0.11 [facility] Comment on above: Order Comment: Speci men Type: BLOOD SPECIMEN [facility] Address: [address] [place] [address] Performed By: #### 1 989-3 #### [facility] CLIA [id number] [address] [place] [address] [place] Basophils/100 WBC (Bld) 0.9 % Normal [facility] Comment on above: Order Comment: Speci men Type: BLOOD SPECIMEN [facility] Address: [address] [place] [address] Performed By: #### 1 989-3 #### [facility] CLIA [id number] [address] [place] [address] [place] Differential cell count method Nom (Bld) Auto Normal [facility] Comment on above: Order Comment: Speci men Type: BLOOD SPECIMEN [facility] Address: [address] [place] [address] Performed By: #### 1 989-3 #### [facility] CLIA [id number] [address] [place] [address] [place] Eosinophils (Bld) [#/Vol] 0.13 10*3/uL Normal <0.46 [facility] Comment on above: Order Comment: Speci men Type: BLOOD SPECIMEN [facility] Address: [address] [place] [address] Performed By: #### 1 989-3 #### [facility] CLIA [id number] [address] [place] [address] [place] Eosinophils/100 WBC (Bld) 2.0 % Normal [facility] Comment on above: Order Comment: Speci men Type: BLOOD SPECIMEN [facility] Address: [address] [place] [address] Performed By: #### 1 989-3 #### [facility] CLIA [id number] [address] [place] [address] [place] Erythrocyte distribution width (RBC) [Ratio] 13.0 % Normal 11.5-15.0 [facility] Comment on above: Order Comment: Speci men Type: BLOOD SPECIMEN [facility] Address: [address] [place] [address] Performed By: #### 1 989-3 #### [facility] CLIA [id number] [address] [place] [address] [place] Hematocrit (Bld) [Volume fraction] 42.3 % Normal 36.0-46.0 [facility] Comment on above: Order Comment: Speci men Type: BLOOD SPECIMEN [facility] Address: [address] [place] [address] Performed By: #### 1 989-3 #### [facility] CLIA [id number] [address] [place] [address] [place] Hemoglobin (Bld) [Mass/Vol] 13.9 g/dL Normal 11.5-15.5 [facility] Comment on above: Order Comment: Speci men Type: BLOOD SPECIMEN [facility] Address: [address] [place] [address] Performed By: #### 1 989-3 #### [facility] CLIA [id number] [address] [place] [address] [place] Immature granulocytes (Bld) [#/Vol] 10*3/uL Normal <0.10 [facility] Comment on above: Order Comment: Speci men Type: BLOOD SPECIMEN [facility] Address: [address] [place] [address] Performed By: #### 1 989-3 #### [facility] CLIA [id number] [address] [place] [address] [place] Immature granulocytes/100 WBC (Bld) 0.2 % Normal [facility] Comment on above: Order Comment: Speci men Type: BLOOD SPECIMEN [facility] Address: [address] [place] [address] Performed By: #### 1 989-3 #### [facility] CLIA [id number] [address] [place] [address] [place] Lymphocytes (Bld) [#/Vol] 2.71 10*3/uL Normal 1.00-4.00 [facility] Comment on above: Order Comment: Speci men Type: BLOOD SPECIMEN [facility] Address: [address] [place] [address] Performed By: #### 1 989-3 #### [facility] CLIA [id number] [address] [place] [address] [place] Lymphocytes/100 WBC (Bld) 41.7 % Normal [facility] Comment on above: Order Comment: Speci men Type: BLOOD SPECIMEN [facility] Address: [address] [place] [address] Performed By: #### 1 989-3 #### [facility] CLIA [id number] [address] [place] [address] [place] MCH (RBC) [Entitic mass] 30.2 pg Normal 26.0-34.0 [facility] Comment on above: Order Comment: Speci men Type: BLOOD SPECIMEN [facility] Address: [address] [place] [address] Performed By: #### 1 989-3 #### [facility] CLIA [id number] [address] [place] [address] [place] MCHC (RBC) [Mass/Vol] 32.9 g/dL Normal 30.5-36.0 [facility] Comment on above: Order Comment: Speci men Type: BLOOD SPECIMEN [facility] Address: [address] [place] [address] Performed By: #### 1 989-3 #### [facility] CLIA [id number] [address] [place] [address] [place] MCV (RBC) [Entitic vol] 91.8 fL Normal 80.0-100.0 [facility] Comment on above: Order Comment: Speci men Type: BLOOD SPECIMEN [facility] Address: [address] [place] [address] Performed By: #### 1 989-3 #### [facility] CLIA [id number] [address] [place] [address] [place] Monocytes (Bld) [#/Vol] 0.50 10*3/uL Normal <0.87 [facility] Comment on above: Order Comment: Speci men Type: BLOOD SPECIMEN [facility] Address: [address] [place] [address] Performed By: #### 1 989-3 #### [facility] CLIA [id number] [address] [place] [address] [place] Monocytes/100 WBC (Bld) 7.7 % Normal [facility] Comment on above: Order Comment: Speci men Type: BLOOD SPECIMEN [facility] Address: [address] [place] [address] Performed By: #### 1 989-3 #### [facility] CLIA [id number] [address] [place] [address] [place] Neutrophils (Bld) [#/Vol] 3.09 10*3/uL Normal 1.45-7.50 [facility] Comment on above: Order Comment: Speci men Type: BLOOD SPECIMEN [facility] Address: [address] [place] [address] Performed By: #### 1 989-3 #### [facility] CLIA [id number] [address] [place] [address] [place] Neutrophils/100 WBC (Bld) 47.5 % Normal [facility] Comment on above: Order Comment: Speci men Type: BLOOD SPECIMEN [facility] Address: [address] [place] [address] Performed By: #### 1 989-3 #### [facility] CLIA [id number] [address] [place] [address] [place] Nucleated RBC (Bld) [#/Vol] 10*3/uL Normal <0.01 [facility] Comment on above: Order Comment: Speci men Type: BLOOD SPECIMEN [facility] Address: [address] [place] [address] Performed By: #### 1 989-3 #### [facility] CLIA [id number] [address] [place] [address] [place] Nucleated RBC/100 WBC (Bld) [Ratio] 0.0 /100 WBC Normal [facility] Comment on above: Order Comment: Speci men Type: BLOOD SPECIMEN [facility] Address: [address] [place] [address] Performed By: #### 1 989-3 #### [facility] CLIA [id number] [address] [place] [address] [place] Platelet mean volume (Bld) [Entitic vol] 10.2 fL Normal 9.0-12.7 [facility] Comment on above: Order Comment: Speci men Type: BLOOD SPECIMEN [facility] Address: [address] [place] [address] Performed By: #### 1 989-3 #### [facility] CLIA [id number] [address] [place] [address] [place] Platelets (Bld) [#/Vol] 172 10*3/uL Normal 150-400 [facility] Comment on above: Order Comment: Speci men Type: BLOOD SPECIMEN [facility] Address: [address] [place] [address] Performed By: #### 1 989-3 #### [facility] CLIA [id number] [address] [place] [address] [place] RBC (Bld) [#/Vol] 4.61 10*6/uL Normal 3.90-5.20 [facility] Comment on above: Order Comment: Speclenny jiménez Type: BLOOD SPECIMEN [facility] Address: [address] [place] [address] Performed By: #### 1 989-3 #### [facility] CLIA [id number] [address] [place] [address] [place] WBC (Bld) [#/Vol] 6.50 10*3/uL Normal 3.70-11.00 [facility] Comment on above: Order Comment: Speci men Type: BLOOD SPECIMEN [facility] Address: [address] [place] [address] Performed By: #### 1 989-3 #### [facility] CLIA [id number] [address] [place] [address] [place] CNOVon 04-16-2025 CNOV Office Visit (INTMWS ) IRMA STEWART ([id number]) 1960 F Date Time Provider Department 04/16/25 10:00 AM LALA HARRISON INTM[facility] During your visit today, we recorded the following information about you: Pulse Respiration Blood pressure Weight 76/minute 16/minute 144/80 117 kg Lala Harrison APRN.[employer]G VENDOR 04/16/2025 12:21 PM Signed CC: Patient presents with: Recheck: Follow up multiple concerns HPI Irma Stewart is a 65 year old female who presents today for multiple concerns. Has had these concerns ongoing for quite a while and has bee worked up previously. With her mental health and difficulty staying on topic, getting full history difficult to obtain. Recording using [employer] software for draft documentation of the visit was discussed with the patient/authorized accounts receivable representative; all questions welcomed and answered. Patient/authorized accounts receivable representative agreed to proceed Paresthesias: - Irma [...] Scheduled to see a new psychiatrist at [facility] in May. Chronic Stress: - Irma [...] PAST MEDICA (more content not included)... Normal [facility] Comprehensive metabolic 2000 panelon 04-16-2025 Albumin [Mass/Vol] 4.3 g/dL Normal 3.9-4.9 [facility] Comment on above: Order Comment: Speci men Type: BLOOD SPECIMENOrdering Facility: [facility] Address: [address] [place] [address] Performed By: #### 2 4323-8, 2132-9 ####[facility] [id number] [place] [address] [place] ALP [Catalytic activity/Vol] 73 U/L Normal 34-123 [facility] Comment on above: Order Comment: Speci men Type: BLOOD SPECIMENOrdering Facility: [facility] Address: [address] [place] [id number] Performed By: #### 2 4323-05, 2132-06 ####[facility] [id number] [address] [address] [place] ALT [Catalytic activity/Vol] 13 U/L Normal 7-38 [facility] Comment on above: Order Comment: Speci men Type: BLOOD SPECIMENOrdering Facility: [facility] Address: [address] [place], [place] [address] Performed By: #### 2 4323-05, 2132-06 ####[facility] [id number] [place] [id number] [place] Anion gap [Moles/Vol] 16 mmol/L High 8-15 [facility] Comment on above: Order Comment: Speci men Type: BLOOD SPECIMENOrdering Facility: [facility] Address: [address] [place] [id number] Performed By: #### 2 4323-05, 2132-06 ####[facility] [id number] [place] [address] [place] AST [Catalytic activity/Vol] 13 U/L Normal 13-35 [facility] Comment on above: Order Comment: Speci men Type: BLOOD SPECIMENOrdering Facility: [facility] Address: [address] [place] [id number] Performed By: #### 2 4323-05, 2132-06 ####[facility] [id number] [place] [id number] [place] Bilirubin [Mass/Vol] 0.2 mg/dL Normal 0.2-1.3 [facility] Comment on above: Order Comment: Speci men Type: BLOOD SPECIMENOrdering Facility: [facility] Address: [address] [place], [place] [address] Performed By: #### 2 8, 2132-06 ####[facility] [id number] [facility] [address] [place] [address] [place] Calcium [Mass/Vol] 9.1 mg/dL Normal 8.5-10.2 [facility] Comment on above: Order Comment: Speci men Type: BLOOD SPECIMENOrdering Facility: [facility] Address: [address] [place], [place] [address] Performed By: #### 2 4323-05, 2132-06 ####[facility] [id number] [facility] [address] [place] [address] [place] Chloride [Moles/Vol] 100 mmol/L Normal 98-107 [facility] Comment on above: Order Comment: Speci men Type: BLOOD SPECIMENOrdering Facility: [facility] Address: [address] [place] [address] Performed By: #### 2 4323-05, 2132-06 ####[facility] [id number] [facility] [address] [place] [address] [place] CO2 [Moles/Vol] 27 mmol/L Normal 22-30 [facility] Comment on above: Order Comment: Speci men Type: BLOOD SPECIMENOrdering Facility: [facility] Address: [address] [place], [place] [address] Performed By: #### 2 4323-05, 2132-06 ####[facility] [id number] [address] [place] [address] [place] Creatinine [Mass/Vol] 0.72 mg/dL Normal 0.58-0.96 [facility] Comment on above: Order Comment: Speci men Type: BLOOD SPECIMENOrdering Facility: [facility] Address: [address] [place], [place] [address] Performed By: #### 2 43201-02, 2132-06 ####[facility] [id number] [address] [place] [address] [place] Creatinine and Glomerular filtration rate.predicted panel (S/P/Bld) 94 mL/min/1.73m??? Normal >=60 [facility] [facility] Comment on above: Order Comment: Corky jiménez Type: BLOOD SPECIMENOrdering Facility: [facility] Address: [address] [place] [address] Result Comment: Arlette mated Glomerular Filtration Rate [...] GFR. Performed By: #### 2 432-8, 2132-06 ####[facility] [id number] [place] [id number] [place] Glucose [Mass/Vol] 136 mg/dL High 74-99 [facility] Comment on above: Order Comment: Corky jiménez Type: BLOOD SPECIMENOrdering Facility: [facility] Address: [address] [place] [address] Result Comment: The [place] Diabetes Association (ADA) provides guidance for cutoff [...] Standards of Medical Care in Diabetes 2016, [place] [employer] Association. Diabetes Care. 2016.39(Suppl 1). Performed By: #### 2 4323-8, 2132-06 ####[facility] [id number] [place] [id number] [place] Potassium [Moles/Vol] 4.1 mmol/L Normal 3.7-5.1 [facility] Comment on above: Order Comment: Speci men Type: BLOOD SPECIMENOrdering Facility: [facility] Address: [address] [place], [place] [address] Performed By: #### 2 4323-05, 2132-06 ####[facility] [id number] [facility] [id number] [address] [place] Protein [Mass/Vol] 6.7 g/dL Normal 6.3-8.0 [facility] Comment on above: Order Comment: Speci men Type: BLOOD SPECIMENOrdering Facility: [facility] Address: [address] [place] [address] Performed By: #### 2 4323-05, 2132-06 ####[facility] [id number] [facility] [address] [place] [address] [place] Sodium [Moles/Vol] 143 mmol/L Normal 136-144 [facility] Comment on above: Order Comment: Speci men Type: BLOOD SPECIMENOrdering Facility: [facility] Address: [address] [place] [address] Performed By: #### 2 4323-05, 2132-06 ####[facility] [id number] [facility] [address] [place] [address] [place] Urea nitrogen [Mass/Vol] 14 mg/dL Normal 7-21 [facility] Comment on above: Order Comment: Speci men Type: BLOOD SPECIMENOrdering Facility: [facility] Address: [address] [place], [place] [address] Performed By: #### 2 4323-05, 2132-06 ####[facility] [id number] [facility] [id number] [address] [place] Cortis SerPl-mCncon 04-16-20 25 Cortisol [Mass/Vol] 16.4 ug/dL Normal 4.8-19.5 [facility] Comment on above: Order Comment: Speci men Type: BLOOD SPECIMENOrdering Facility: [facility] Address: [address] [place] [address] Result Comment: Prov ided reference range is from 6-10 AM sample collection time. Cortisol Reference Range: 6-10 AM = 4.8-19.5 ug/dL, 4-8 PM = 2.5-11.9 ug/dL Performed By: #### 3 016-3, 3051-0, 3024-7, 2143-6 ####[facility] [id number] [place] [address] [place] HbA1c (Bld)on 04-16-2025 Average glucose Estimated from glycated hemoglobin (Bld) [Mass/Vol] 166 mg/dL Normal [facility] Comment on above: Order Comment: Speci men Type: BLOOD SPECIMEN [facility] Address: [address] [place] [address] Result Comment: eAG: (Estimated average glucose) is a calculated value from HgbA1c and is accounts receivable representative of the average blood glucose level in the last 2-3 month period. Performed By: #### 1 989-3 #### [facility] CLIA [id number] [address] [place] [address] [place] HbA1c (Bld) [Mass fraction] 7.4 % High 4.3-5.6 [facility] Comment on above: Order Comment: Speci men Type: BLOOD SPECIMEN [facility] Address: [address] [place] [address] Result Comment: [place] Diabetes Association guidelines indicate that patients with HgbA1c in the range 5.7-6.4% are at increased risk for development of diabetes, and intervention by lifestyle modification may be beneficial. HgbA1c greater or equal to 6.5% is considered diagnostic of diabetes. Performed By: #### 1 989-3 #### [facility] CLIA [id number] [address] [place], [place] [address] [place] [address] [place] T3Free SerPl-mCncon 04-16-20 25 Free T3 [Mass/Vol] 3.3 pg/mL Normal 2.3-4.1 [facility] Comment on above: Order Comment: Speci men Type: BLOOD SPECIMENOrdering Facility: [facility] Address: [address] [place] [address] Performed By: #### 3 016-3, 3051-0, 7, 2143-03 ####[facility] [id number] [place] [address] [place] T4 Free SerPl-mCncon 025 Free T4 [Mass/Vol] 1.1 ng/dL Normal 0.9-1.7 [facility] Comment on above: Order Comment: Speci men Type: BLOOD SPECIMENOrdering Facility: [facility] Address: [address] [place] [address] Performed By: #### 3 016-3, 305-0, 7, 2143-03 ####[facility] [id number] [place] [address] [place] TSH SerPl-aCncon 04-16-2025 TSH Qn 4.360 m[IU]/L High 0.270-4.200 [facility] Comment on above: Order Comment: Speci men Type: BLOOD SPECIMENOrdering Facility: [facility] Address: [address] [place] [address] Performed By: #### 3 016-3, 305-0, 3024-04, 2143-03 ####[facility] [id number] [place] [address] [place] VALPROIC ACID / DEPAKENEon 0 04-16-2025 Valproate [Mass/Vol] 47 ug/mL Low 50.0 - 100.0 ug/mL [facility] Comment on above: Reference ranges and high/low indicator flags are provided as general guidelines only. The treating physician must determine appropriate target levels/dosing based on the specific clinical situation. Valproate SerPl-mCncon 04-16 Valproate [Mass/Vol] 47.0 ug/mL Low 50.0-100.0 [facility] Comment on above: Order Comment: Corky jiménez Type: BLOOD SPECIMENOrdering Facility: [facility] Address: [address] [place] [address] Result Comment: Refe rence ranges and high/low indicator flags are provided as general guidelines only. The treating physician must determine appropriate target levels/dosing based on the specific clinical situation. Performed By: #### 4 086-5 ####[facility] [id number] [place] [id number] [place] Valproate [Mass/Vol]on 04-16 Interpretation and review of laboratory results Abnormal [facility] Vit B12 SerPl-mCncon 025 Cobalamin (Vitamin B12) [Mass/Vol] 522 pg/mL Normal 232-1245 [facility] Comment on above: Order Comment: Corky jiménez Type: BLOOD SPECIMENOrdering Facility: [facility] Address: [address] [place], [place] [address] [address] Performed By: #### 2 4323-8, 2132-9 ####[facility] [id number] [place] [id number] [place] CNPMariana [facility] ([id number]) 1960 F Date Time Provider Department 04/12/25 [...] MILLIGRAMS Oral for 30 Days - Insulin Lowell, Disposable, (BD ULTRAFINE III MINI PEN) 31 [...] 4 hours as needed. - [facility] Use as needed to monitor oxygen level and heart rate - omeprazole (PRILOSEC) 20 mg capsule Take 1 capsule by mouth once daily. - divalproex DR (DEPAKOTE) 500 mg EC tablet Take 500 mg by mouth two times a day. (more content not included)... [facility] 02-26-2025 CNPN Telephone (INTMWS) IRMA STEWART ([id number]) 1960 F Date Time Provider Department 02/26/25 [...] patient with an update. LAZARA Rangel Terri, DIRECTOR CONSUMER AFFAIRS.CENTRAL STERILE TECHNICIAN 02/26/2025 3:51 PM Signed Stress test was ordered a year ago by me, not completed due to insurance per record review in [employer]. Sleep medicine order was from Dr. Camila [...] ATC but no answer and voicemail full. [employer]hart message sent. Gely Rey 03/07/2025 2:39 PM [...] [R09.02] Order(s):CONSULT TO SLEEP MEDICINE - ADULT [[id number]] Order #: [id number]: 1 FUTURE Prescriptions as of 03/10/2025 - [...] total 175 mg twice daily. - Insulin Lowell, Disposable, (BD ULTRAFINE III MINI PEN) 31 [...] PULSE OXIMETE (more content not included)... Normal [facility] CNPNon 01-04-2025 CNPN Telephone (INTMWS) IRMA STEWART ([id number]) 1960 F Date Time Provider Department 01/04/25 [...] mg." [facility] the [facility] Get thinks this is an error, states patient has been taking 100 mg for a long time. Please advise and phone Get with reply. Jaime Spencer, DIRECTOR CONSUMER AFFAIRS.CENTRAL STERILE TECHNICIAN 01/04/2025 12:56 PM Signed Can send refill [...] - Controlled E11.9 Insulin: Yes - Insulin Lowell, Disposable, (BD ULTRAFINE III MINI PEN) 31 [...] mouth daily at bedtime. - [facility] Use as needed to monitor oxygen level and heart rate - omeprazole (PRILOSEC) 20 mg capsule Take 1 capsule by mouth once daily. - Lancets lancets Test blood sugar(s) 3 times daily. Dx: Type 2 DM - Controlled E11.9 Insulin: Yes - divalproex DR (DEPAKOTE) 500 mg EC tablet Ta (more content not included)... Normal [facility] Garth 12-01-2024 MICHAELN Telephone (INTMWS) IRMA STEWART ([id number]) 1960 F Date Time Provider Department 12/01/24 [...] speak full sentences during call. 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 - PULSE OXIMETER [facility] Use (more content not included)... Normal [facility]arth [facility]-2024 [facility] IRMA STEW[facility] ([id number]) 1960 F Date Time Provider Department 11/11/24 [...] 10/30/24. Patient reports that she called the staff editor in regards to text message. Ride Mechanic blocked the number from text. Patient reports [...] of her house when she went to [place] moss picker chair and brother called staff editor." Text from a number patient "believes is [...] - Controlled E11.9 Insulin: Yes - Insulin Lowell, Disposable, (BD ULTRAFINE III MINI PEN) 31 [...] daily. Dx (more content not included)... Normal [facility] 25(OH)D3 SerPl-mCbrinaon 2024 25-hydroxyvitamin D3 [Mass/Vol] 61.8 ng/mL Normal 31.0-80.0 [facility] Comment on above: Order Comment: Speci men Type: BLOOD SPECIMEN [facility] Address: [address] [place] [address] Result Comment: Clas sification of 25 [place] Vitamin D status: Deficiency/Insufficiency: < or = 30 ng/ml. Sufficiency/Optimal Levels: 31-80 ng/mL Toxicity: > 100 ng/mL. Test performed by chemiluminescent immunoassay. Performed By: #### 1 989-3 #### [facility] CLIA [id number] [address] [place] [address] [place] CBC W Auto Differential pane l (Bld)on 11-10-2024 Basophils (Bld) [#/Vol] 0.03 10*3/uL Normal <0.11 [facility] Comment on above: Order Comment: Speci men Type: BLOOD SPECIMENOrdering Facility: [facility] Address: [address] [place] [address] Performed By: #### 5 7021-8 ####[facility] [id number] [place] [address] [place] Basophils/100 WBC (Bld) 0.6 % Normal [facility] Comment on above: Order Comment: Speci men Type: BLOOD SPECIMENOrdering Facility: [facility] Address: [address] [place] [address] Performed By: #### 5 7021-8 ####[facility] [id number] [place] [address] [place] Differential cell count method Nom (Bld) Auto Normal [facility] Comment on above: Order Comment: Speci men Type: BLOOD SPECIMENOrdering Facility: [facility] Address: [address] [place] [address] Performed By: #### 5 7021-8 ####[facility] [id number] [place] [address] [place] Eosinophils (Bld) [#/Vol] 0.06 10*3/uL Normal <0.46 [facility] Comment on above: Order Comment: Speci men Type: BLOOD SPECIMENOrdering Facility: [facility] Address: [address] [place] [address] Performed By: #### 5 7021-8 ####[facility] [id number] [place] [address] [place] Eosinophils/100 WBC (Bld) 1.1 % Normal [facility] Comment on above: Order Comment: Speci men Type: BLOOD SPECIMENOrdering Facility: [facility] Address: [address] [place] [address] Performed By: #### 5 7021-8 ####[facility] [id number] [place] [address] [place] Erythrocyte distribution width (RBC) [Ratio] 12.4 % Normal 11.5-15.0 [facility] Comment on above: Order Comment: Speci men Type: BLOOD SPECIMENOrdering Facility: [facility] Address: [address] [place] [address] Performed By: #### 5 7021-8 ####[facility] [id number] [place] [address] [place] Hematocrit (Bld) [Volume fraction] 42.9 % Normal 36.0-46.0 [facility] Comment on above: Order Comment: Speci men Type: BLOOD SPECIMENOrdering Facility: [facility] Address: [address] [place] [address] Performed By: #### 5 7021-8 ####[facility] [id number] [place] [address] [place] Hemoglobin (Bld) [Mass/Vol] 14.2 g/dL Normal 11.5-15.5 [facility] Comment on above: Order Comment: Speci men Type: BLOOD SPECIMENOrdering Facility: [facility] Address: [address] [place] [address] Performed By: #### 5 7021-8 ####[facility] [id number] [place] [address] [place] Immature granulocytes (Bld) [#/Vol] 10*3/uL Normal <0.10 [facility] Comment on above: Order Comment: Speci men Type: BLOOD SPECIMENOrdering Facility: [facility] Address: [address] [place] [address] Performed By: #### 5 7021-8 ####[facility] [id number] [place] [address] [place] Immature granulocytes/100 WBC (Bld) 0.2 % Normal [facility] Comment on above: Order Comment: Speci men Type: BLOOD SPECIMENOrdering Facility: [facility] Address: [address] [place] [address] Performed By: #### 5 7021-8 ####[facility] [id number] [place] [address] [place] Lymphocytes (Bld) [#/Vol] 1.95 10*3/uL Normal 1.00-4.00 [facility] Comment on above: Order Comment: Speci men Type: BLOOD SPECIMENOrdering Facility: [facility] Address: [address] [place] [address] Performed By: #### 5 7021-8 ####[facility] [id number] [place] [address] [place] Lymphocytes/100 WBC (Bld) 36.6 % Normal [facility] Comment on above: Order Comment: Speci men Type: BLOOD SPECIMENOrdering Facility: [facility] Address: [address] [place] [address] Performed By: #### 5 7021-8 ####[facility] [id number] [place] [address] [place] MCH (RBC) [Entitic mass] 30.9 pg Normal 26.0-34.0 [facility] Comment on above: Order Comment: Speci men Type: BLOOD SPECIMENOrdering Facility: [facility] Address: [address] [place] [address] Performed By: #### 5 7021-8 ####[facility] [id number] [place] [address] [place] MCHC (RBC) [Mass/Vol] 33.1 g/dL Normal 30.5-36.0 [facility] Comment on above: Order Comment: Speci men Type: BLOOD SPECIMENOrdering Facility: [facility] Address: [address] [place] [address] Performed By: #### 5 7021-8 ####[facility] [id number] [place] [address] [place] MCV (RBC) [Entitic vol] 93.3 fL Normal 80.0-100.0 [facility] Comment on above: Order Comment: Speci men Type: BLOOD SPECIMENOrdering Facility: [facility] Address: [address] [place] [address] Performed By: #### 5 7021-8 ####[facility] [id number] [place] [address] [place] Monocytes (Bld) [#/Vol] 0.40 10*3/uL Normal <0.87 [facility] Comment on above: Order Comment: Speci men Type: BLOOD SPECIMENOrdering Facility: [facility] Address: [address] [place] [address] Performed By: #### 5 7021-8 ####[facility] [id number] [place] [address] [place] Monocytes/100 WBC (Bld) 7.5 % Normal [facility] Comment on above: Order Comment: Speci men Type: BLOOD SPECIMENOrdering Facility: [facility] Address: [address] [place] [address] Performed By: #### 5 7021-8 ####[facility] [id number] [place] [address] [place] Neutrophils (Bld) [#/Vol] 2.88 10*3/uL Normal 1.45-7.50 [facility] Comment on above: Order Comment: Speci men Type: BLOOD SPECIMENOrdering Facility: [facility] Address: [address] [place] [address] Performed By: #### 5 7021-8 ####[facility] [id number] [place] [address] [place] Neutrophils/100 WBC (Bld) 54.0 % Normal [facility] Comment on above: Order Comment: Speci men Type: BLOOD SPECIMENOrdering Facility: [facility] Address: [address] [place] [address] Performed By: #### 5 7021-8 ####[facility] [id number] [place] [address] [place] Nucleated RBC (Bld) [#/Vol] 10*3/uL Normal <0.01 [facility] Comment on above: Order Comment: Speci men Type: BLOOD SPECIMENOrdering Facility: [facility] Address: [address] [place] [address] Performed By: #### 5 7021-8 ####[facility] [id number] [place] [address] [place] Nucleated RBC/100 WBC (Bld) [Ratio] 0.0 /100 WBC Normal [facility] Comment on above: Order Comment: Speci men Type: BLOOD SPECIMENOrdering Facility: [facility] Address: [address] [place] [address] Performed By: #### 5 7021-8 ####[facility] [id number] [place] [address] [place] Platelet mean volume (Bld) [Entitic vol] 11.0 fL Normal 9.0-12.7 [facility] Comment on above: Order Comment: Speci men Type: BLOOD SPECIMENOrdering Facility: [facility] Address: [address] [place] [address] Performed By: #### 5 7021-8 ####[facility] [id number] [place] [address] [place] Platelets (Bld) [#/Vol] 163 10*3/uL Normal 150-400 [facility] Comment on above: Order Comment: Speci men Type: BLOOD SPECIMENOrdering Facility: [facility] Address: [address] [place] [address] Performed By: #### 5 7021-8 ####[facility] [id number] [place] [address] [place] RBC (Bld) [#/Vol] 4.60 10*6/uL Normal 3.90-5.20 [facility] Comment on above: Order Comment: Speci men Type: BLOOD SPECIMENOrdering Facility: [facility] Address: [address] [place] [address] Performed By: #### 5 7021-8 ####[facility] [id number] [place] [address] [place] WBC (Bld) [#/Vol] 5.33 10*3/uL Normal 3.70-11.00 [facility] Comment on above: Order Comment: Speci men Type: BLOOD SPECIMENOrdering Facility: [facility] Address: [address] [place] [address] Performed By: #### 5 7021-8 ####[facility] [id number] [address] [place] CNOVon 11-10-2024 CNOV Office Visit (INTMWS ) IRMA STEWART ([id number]) 1960 F Date Time Provider Department 11/10/24 3:20 PM JAIME SPENCER INTMWS During your visit today, we recorded the following information about you: Pulse Blood pressure Weight 75/minute 124/80 118 kg Jaime Spencer, JENN.CENTRAL STERILE TECHNICIAN 11/10/2024 4:38 PM Signed SUBJECTIVE: Diabetic Foot [...] Diarrhea Haldol [Haloperidol] Other: See Comments Headache/hallucinations [place] Other: See Comments Hallucinations Metformin Diarrhea Neurontin [...] DM - Controlled E11.9 Insulin: Yes Insulin Lowell, Disposable, (BD ULTRAFINE III MINI PEN) 31 [...] cream Ap (more content not included)... Normal [facility] Comprehensive metabolic 2000 panelon 11-10-2024 Albumin [Mass/Vol] 4.3 g/dL Normal 3.9-4.9 [facility] Comment on above: Order Comment: Speci men Type: BLOOD SPECIMEN [facility] Address: [address] [place] [address] Performed By: #### 1 989-3 #### [facility] CLIA [id number] [address] [place] [address] [place] [address] [place] ALP [Catalytic activity/Vol] 80 U/L Normal 34-123 [facility] Comment on above: Order Comment: Speci men Type: BLOOD SPECIMEN [facility] Address: [address] [place] [id number] Performed By: #### 1 989-3 #### [facility] CLIA [id number] [address] [place] [address] [place] ALT [Catalytic activity/Vol] 11 U/L Normal 7-38 [facility] Comment on above: Order Comment: Speci men Type: BLOOD SPECIMEN [facility] Address: [address] [place] [address] Performed By: #### 1 989-3 #### [facility] CLIA [id number] [address] [place] [address] [place] Anion gap [Moles/Vol] 13 mmol/L Normal 8-15 [facility] Comment on above: Order Comment: Speci men Type: BLOOD SPECIMEN [facility] Address: [address] [place] [address] Performed By: #### 1 989-3 #### [facility] CLIA [id number] [address] [place] [address] [place] AST [Catalytic activity/Vol] 13 U/L Normal 13-35 [facility] Comment on above: Order Comment: Speci men Type: BLOOD SPECIMEN [facility] Address: [address] [place] [address] Performed By: #### 1 989-3 #### [facility] CLIA [id number] [address] [place] [address] [place] Bilirubin [Mass/Vol] 0.2 mg/dL Normal 0.2-1.3 [facility] Comment on above: Order Comment: Speci men Type: BLOOD SPECIMEN [facility] Address: [address] [place] [address] Performed By: #### 1 989-3 #### [facility] CLIA [id number] [address] [place] [address] [place] Calcium [Mass/Vol] 9.4 mg/dL Normal 8.5-10.2 [facility] Comment on above: Order Comment: Speci men Type: BLOOD SPECIMEN [facility] Address: [address] [place] [address] Performed By: #### 1 989-3 #### [facility] CLIA [id number] [address] [place] [address] [place] Chloride [Moles/Vol] 103 mmol/L Normal 98-107 [facility] Comment on above: Order Comment: Speci men Type: BLOOD SPECIMEN [facility] Address: [address] [place] [address] Performed By: #### 1 989-3 #### [facility] CLIA [id number] [address] [place] [address] [place] CO2 [Moles/Vol] 25 mmol/L Normal 22-30 [facility] Comment on above: Order Comment: Speci men Type: BLOOD SPECIMEN [facility] Address: [address] [place] [address] Performed By: #### 1 989-3 #### [facility] CLIA [id number] [address] [place] [address] [place] Creatinine [Mass/Vol] 0.64 mg/dL Normal 0.58-0.96 [facility] Comment on above: Order Comment: Speci men Type: BLOOD SPECIMEN [facility] Address: [address] [place] [address] Performed By: #### 1 989-3 #### [facility] CLIA [id number] [address] [place] [address] [place] Creatinine and Glomerular filtration rate.predicted panel (S/P/Bld) 99 mL/min/1.73m??? Normal >=60 [facility] Comment on above: Order Comment: Speci men Type: BLOOD SPECIMEN Ordering Facility: [facility] Address: [address] [place] [address] Result Comment: Arlette mated Glomerular Filtration Rate [...] GFR. Performed By: #### 1 989-3 #### [facility] CLIA [id number] [address] [place] [address] [place] Glucose [Mass/Vol] 163 mg/dL High 74-99 [facility] Comment on above: Order Comment: Corky jiménez Type: BLOOD SPECIMEN Ordering Facility: [facility] Address: [address] [place] [address] Result Comment: The [place] Diabetes Association (ADA) provides guidance for cutoff [...] Standards of Medical Care in Diabetes 2016, [place] Diabetes Association. Diabetes Care. 2016.39(Suppl 1). Performed By: #### 1 989-3 #### [facility] CLIA [id number] [address] [place] [address] [place] Potassium [Moles/Vol] 4.3 mmol/L Normal 3.7-5.1 [facility] Comment on above: Order Comment: Corky jiménez Type: BLOOD SPECIMEN Ordering Facility: [facility] Address: [address] [place] [address] Performed By: #### 1 989-3 #### [facility] CLIA [id number] [address] [place] [address] [place] Protein [Mass/Vol] 6.5 g/dL Normal 6.3-8.0 [facility] Comment on above: Order Comment: Speci men Type: BLOOD SPECIMEN Ordering Facility: [facility] Address: [address] [place] [address] Performed By: #### 1 989-3 #### [facility] CLIA [id number] [address] [place] [address] [place] Sodium [Moles/Vol] 141 mmol/L Normal 136-144 [facility] Comment on above: Order Comment: Speci men Type: BLOOD SPECIMEN Ordering Facility: [facility] Address: [address] [place] [address] Performed By: #### 1 989-3 #### [facility] CLIA [id number] [address] [place] [address] [place] Urea nitrogen [Mass/Vol] 12 mg/dL Normal 7-21 [facility] Comment on above: Order Comment: Speci men Type: BLOOD SPECIMEN Ordering Facility: [facility] Address: [address] [place] [address] Performed By: #### 1 989-3 #### [facility] CLIA [id number] [address] [place] [address] [place] Ferritin SerPl-mCncon 2024 Ferritin [Mass/Vol] 191.0 ng/mL Normal 14.7-205.1 [facility] Comment on above: Order Comment: Speci men Type: BLOOD SPECIMENOrdering Facility: [facility] Address: [address] [place] [address] Performed By: #### 5 0190-8, 95773-7, 3016-3, 2276-4 ####[facility] [id number] [place] [address] [place] HbA1c (Bld)on 11-10-2024 Average glucose Estimated from glycated hemoglobin (Bld) [Mass/Vol] 169 mg/dL Normal [facility] Comment on above: Order Comment: Corky jiménez Type: BLOOD SPECIMENOrdering Facility: [facility] Address: [address] [place] [address] Result Comment: eAG: (Estimated average glucose) is a calculated value from HgbA1c and is accounts receivable representative of the average blood glucose level in the last 2-3 month period. Performed By: #### 5 5454-3 ####[facility] [id number] [place] [address] [place] HbA1c (Bld) [Mass fraction] 7.5 % High 4.3-5.6 [facility] Comment on above: Order Comment: Corky jiménez Type: BLOOD SPECIMENOrdering Facility: [facility] Address: [address] [place] [address] Result Comment: [place] Diabetes Association guidelines indicate that patients with HgbA1c in the range 5.7-6.4% are at increased risk for development of diabetes, and intervention by lifestyle modification may be beneficial. HgbA1c greater or equal to 6.5% is considered diagnostic of diabetes. Performed By: #### 5 5454-3 ####[facility] [id number] [place] [address] [place] Iron and Iron binding capaci ty panelon 11-10-2024 Iron [Mass/Vol] 69 ug/dL Normal 41-186 [facility] Comment on above: Order Comment: Corky jiménez Type: BLOOD SPECIMEN Ordering Facility: [facility] Address: [address] [place] [address] Performed By: #### 1 989-3 #### [facility] CLIA [id number] [address] [place] [address] [place] Iron binding capacity [Mass/Vol] 276 ug/dL Normal 232-386 [facility] Comment on above: Order Comment: Corky jiménez Type: BLOOD SPECIMEN Ordering Facility: [facility] Address: [address] [place] [address] Performed By: #### 1 989-3 #### [facility] CLIA [id number] [address] [place] [address] [place] Iron/TIBC [Molar ratio] 25.0 % Normal 15.0-57.0 [facility] Comment on above: Order Comment: Speci men Type: BLOOD SPECIMEN Ordering Facility: [facility] Address: [address] [place] [address] Performed By: #### 1 989-3 #### [facility] CLIA [id number] [address] [place] [address] [place] Lipid 1996 panelon 5 Cholesterol [Mass/Vol] 190 mg/dL Normal <200 [facility] Comment on above: Order Comment: Speci men Type: BLOOD SPECIMEN Ordering Facility: [facility] Address: [address] [place] [address] Result Comment: <200 mg/dL, Desirable 200-239 mg/dL, Borderline high >239 mg/dL, High Performed By: #### 1 989-3 #### [facility] CLIA [id number] [address] [place] [address] [place] Cholesterol in HDL [Mass/Vol] 57 mg/dL Normal >39 [facility] Comment on above: Order Comment: Speci men Type: BLOOD SPECIMEN Ordering Facility: [facility] Address: [address] [place] [address] Result Comment: 40-5 9 mg/dL, Acceptable >59 mg/dL, High: Negative risk factor for coronary heart disease <40 mg/dL, Low: Positive risk factor for coronary heart disease Performed By: #### 1 989-3 #### [facility] CLIA [id number] [address] [place] [address] [place] Cholesterol in LDL [Mass/Vol] 94 mg/dL Normal <100 [facility] Comment on above: Order Comment: Speci men Type: BLOOD SPECIMEN Ordering Facility: [facility] Address: [address] [place] [address] Result Comment: <100 mg/dL, Optimal 100-129 mg/dL, Near optimal/above optimal 130-159 mg/dL, Borderline high 160-189 mg/dL, High >189 mg/dL, Very high Secondary prevention optimal LDL Cholesterol levels are recommended to be < 70 mg/dL Performed By: #### 1 989-3 #### [facility] CLIA [id number] [address] [place], [place] [address] [address] [place] Cholesterol in LDL/Cholesterol in HDL [Mass ratio] 1.65 {ratio} Normal <2.54 [facility] Comment on above: Order Comment: Speci men Type: BLOOD SPECIMEN Ordering Facility: [facility] Address: [address] [place] [address] Result Comment: Refe rence: 1. National Cholesterol Education Program ATP III Guideline At-A-Glance Quick Desk Reference: National Heart, Lung, and Blood Foster. National Institutes of Health. 2001: NIH Publication No. 01-3305. 2. An International Atherosclerosis Society position paper: global recommendations for the management of dyslipidemia: executive summary, Atherosclerosis. 2014: 232(2):410-413. Performed By: #### 1 989-3 #### [facility] CLIA [id number] [address] [place] [address] [place] Cholesterol in VLDL [Mass/Vol] 39 mg/dL High <30 [facility] Comment on above: Order Comment: Speci men Type: BLOOD SPECIMEN Ordering Facility: [facility] Address: [address] [place] [address] Performed By: #### 1 989-3 #### [facility] CLIA [id number] [address] [place] [address] [place] Cholesterol non HDL [Mass/Vol] 133 mg/dL High <130 [facility] Comment on above: Order Comment: Theodorai men Type: BLOOD SPECIMEN Ordering Facility: [facility] Address: [address] [place] [address] Result Comment: <130 mg/dL, Optimal 130-159 mg/dL, Near optimal/above optimal 160-189 mg/dL, Borderline high 190-219 mg/dL, High >219 mg/dL, Very high Secondary prevention optimal non HDL Cholesterol levels are recommended to be <100 mg/dL Performed By: #### 1 989-3 #### [facility] CLIA [id number] [address] [place] [address] [place] Cholesterol.total/Ch olesterol in HDL [Mass ratio] 3.33 {ratio} Normal <5.10 [facility] Comment on above: Order Comment: Speci men Type: BLOOD SPECIMEN Ordering Facility: [facility] Address: [address] [place] [address] Performed By: #### 1 989-3 #### [facility] CLIA [id number] [address] [place] [address] [place] FASTING TIME 12 hrs Normal [facility] Comment on above: Order Comment: Speci men Type: BLOOD SPECIMEN Ordering Facility: [facility] Address: [address] [place] [address] Performed By: #### 1 989-3 #### [facility] CLIA [id number] [address] [place] [address] [place] Triglyceride [Mass/Vol] 196 mg/dL High <150 [facility] Comment on above: Order Comment: Speci men Type: BLOOD SPECIMEN Ordering Facility: [facility] Address: [address] [place] [address] Result Comment: <150 mg/dL, Normal 150-199 mg/dL, Borderline high 200-499 mg/dL, High >499 mg/dL, Very high Performed By: #### 1 989-3 #### [facility] CLIA [id number] [address] [place] [address] [place] TSH SerPl-aCncon 11-10-2024 TSH Qn 2.800 m[IU]/L Normal 0.270-4.200 [facility] Comment on above: Order Comment: Speci men Type: BLOOD SPECIMENOrdering Facility: [facility] Address: [address] [place] [address] Performed By: #### 5 0190-8, 17821-6, 3016-3, 2276-4 ####[facility] [id number] [place] [address] [place] Vit B12 [facility] 14-2 025 Cobalamin (Vitamin B12) [Mass/Vol] 1857 pg/mL High 232-1245 [facility] Comment on above: Order Comment: Speci men Type: BLOOD SPECIMEN Ordering Facility: [facility] Address: [address] [place] [address] Performed By: #### 1 989-3 #### [facility] CLIA [id number] [address] [place] [address] [place] NITRIC OXIDE, EXHALEDon 07-0 [facility] CBC W Auto Differential pane l (Bld)on 02-27-2024 Basophils (Bld) [#/Vol] 0.03 10*3/uL [facility] Basophils/100 WBC (Bld) 0.6 % [facility] Differential cell count method Nom (Bld) Auto [facility] Eosinophils (Bld) [#/Vol] 0.07 10*3/uL [facility] Eosinophils/100 WBC (Bld) 1.4 % [facility] Erythrocyte distribution width (RBC) [Ratio] 12.3 % 11.5 - 15.0 % [facility] Hematocrit (Bld) [Volume fraction] 42.2 % 36.0 - 46.0 % [facility] Hemoglobin (Bld) [Mass/Vol] 13.7 g/dL 11.5 - 15.5 g/dL [facility] Immature granulocytes (Bld) [#/Vol] [facility] Immature granulocytes/100 WBC (Bld) 0.2 % [facility] Lymphocytes (Bld) [#/Vol] 1.84 10*3/uL [facility] Lymphocytes/100 WBC (Bld) 37.2 % [facility] MCH (RBC) [Entitic mass] 31.1 pg 26.0 - 34.0 pg [facility] MCHC (RBC) [Mass/Vol] 32.5 g/dL 30.5 - 36.0 g/dL [facility] MCV (RBC) [Entitic vol] 95.9 fL 80.0 - 100.0 fL [facility] Monocytes (Bld) [#/Vol] 0.36 10*3/uL NINF [facility] Monocytes/100 WBC (Bld) 7.3 % [facility] Neutrophils (Bld) [#/Vol] 2.64 10*3/uL [facility] Neutrophils/100 WBC (Bld) 53.3 % [facility] Nucleated RBC (Bld) [#/Vol] NINF [facility] Nucleated RBC/100 WBC (Bld) [Ratio] 0.0 % /100 WBC [facility] Platelet mean volume (Bld) [Entitic vol] 10.4 fL 9.0 - 12.7 fL [facility] Platelets (Bld) [#/Vol] 163 10*3/uL [facility] RBC (Bld) [#/Vol] 4.40 10*6/uL 3.90 - 5.2 0 m/uL [facility] WBC (Bld) [#/Vol] 4.95 10*3/uL [facility] Comprehensive metabolic 2000 panelon 02-27-2024 Albumin [Mass/Vol] 4.1 g/dL 3.9 - 4.9 g/dL [facility] ALP [Catalytic activity/Vol] 75 U/L 34 - 123 U/L [facility] ALT [Catalytic activity/Vol] 14 U/L 7 - 38 U/L [facility] Anion gap [Moles/Vol] 11 mmol/L 9 - 18 mmol/L [facility] AST [Catalytic activity/Vol] 18 U/L 13 - 35 U/L [facility] Bilirubin [Mass/Vol] 0.4 mg/dL 0.2 - 1 .3 mg/dL [facility] Calcium [Mass/Vol] 9.0 mg/dL 8.5 - 10. 2 mg/dL [facility] Chloride [Moles/Vol] 100 mmol/L 97 - 10 5 mmol/L [facility] CO2 [Moles/Vol] 29 mmol/L 22 - 30 mmol/L [facility] Creatinine [Mass/Vol] 0.78 mg/dL 0.58 - 0.96 mg/dL [facility] GFR/1.73 sq M.predicted among non-blacks MDRD (S/P/Bld) [Vol rate/Area] 86 mL/min/{1.73_m2} - PINF [facility] Comment on above: Estimated Glomerular [...] 173 mg/dL High 74 - 99 mg/dL [facility] Comment on above: The [place] Diabete s Association (ADA) provides guidance for [...] Standards of Medical Care in Diabetes 2016, [place] Diabetes Association. Diabetes Care. 2016.39(Suppl 1). Interpretation and review of laboratory results Abnormal [facility] Potassium [Moles/Vol] 4.5 mmol/L 3.7 - 5.1 mmol/L [facility] Protein [Mass/Vol] 6.6 g/dL 6.3 - 8.0 g/dL [facility] Sodium [Moles/Vol] 140 mmol/L 136 - 144 mmol/L [facility] Urea nitrogen [Mass/Vol] 15 mg/dL 7 - 21 mg/dL [facility] THYROID STIMULATING HORMONEo n 02-27-2024 TSH Qn 1.660 m[IU]/L [facility] TSH Qnon 02-27-2024 Interpretation and review of laboratory results Normal [facility] OXIMETRY WITH AMBULATIONon 0 12-06-2023 [facility] XR Finger - right AP and Lat eral and obliqueon 11-25-2023 IMPRESSION: The osseous structures are intact. There are no marginal erosions. Mild narrowing of the first CMC joint with small osteophytes. No other significant abnormality. 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 TECHNIQUE: XR DIGIT 3V FRONTAL/LAT/OBL RT Laterality: RIGHT Number of different views (projections): 3 M: XB_1 COMPARISON: None RESULT/ IMPRESSION IMPRESSION: The osseous structures are intact. There are no marginal erosions. Mild narrowing of the first CMC joint with small osteophytes. No other significant abnormality. Medical Operations Supervisor: JADON Transcribe Date/Time: Nov 25 2023 7:13P Dictated by : BRANDON BECERRA MD This examination was interpreted and the report reviewed and electronically signed by: BRANDON BECERRA MD on Nov 25 2023 7:14PM EST [facility] Radiology Study observation (narrative) [facility] XR Finger - right AP and Lat eral and obliqueOrdered By: [facility] Provider on 11-25-2023 [facility] XR Chest PA and Lateralon IMPRESSION: No acute radiographic abnormality. Medical Operations Supervisor: JADON Transcribe Date/Time: Nov 04 2023 3:01P Dictated by : JORGE SCHWARTZ MD This examination was interpreted and the report reviewed and electronically signed by: JORGE SCHWARTZ MD on Nov 04 2023 3:02PM [facility] DIVISION OF RADIOLOGY * * *Final [...] soft tissues: Unremarkable. DIVISION OF RADIOLOGY Provider, [facility] - 11/04/2023 * * *Final [...] Unremarkable. IMPRESSION IMPRESSION: No acute radiographic abnormality. Medical Operations Supervisor: JADON Transcribe Date/Time: Nov 04 2023 3:01P Dictated by : JORGE SCHWARTZ MD This examination was interpreted and the report reviewed and electronically signed by: JORGE SCHWARTZ MD on Nov 04 2023 3:02PM [facility] Radiology Study observation (narrative) [facility] XR Chest PA and LateralOrder ed By: [facility] Provider on 11-04-2023 [facility] CBC W Auto Differential pane l (Bld)on 07-12-2023 Basophils (Bld) [#/Vol] 0.03 10*3/uL <0.11 k/uL [facility] Basophils/100 WBC (Bld) 0.7 % [facility] Differential cell count method Nom (Bld) Auto [facility] Eosinophils (Bld) [#/Vol] 0.09 10*3/uL <0.46 k/uL [facility] Eosinophils/100 WBC (Bld) 2.2 % [facility] Erythrocyte distribution width (RBC) [Ratio] 12.5 % 11.5 - 15.0 % [facility] Hematocrit (Bld) [Volume fraction] 42.8 % 36.0 - 46.0 % [facility] Hemoglobin (Bld) [Mass/Vol] 13.9 g/dL 11.5 - 15.5 g/dL [facility] Immature granulocytes (Bld) [#/Vol] <0.10 k/uL [facility] Immature granulocytes/100 WBC (Bld) 0.2 % [facility] Lymphocytes (Bld) [#/Vol] 1.52 10*3/uL 1.00 - 4.00 k/uL [facility] Lymphocytes/100 WBC (Bld) 36.4 % [facility] MCH (RBC) [Entitic mass] 31.3 pg 26.0 - 34.0 pg [facility] MCHC (RBC) [Mass/Vol] 32.5 g/dL 30.5 - 36.0 g/dL [facility] MCV (RBC) [Entitic vol] 96.4 fL 80.0 - 100.0 fL [facility] Monocytes (Bld) [#/Vol] 0.28 10*3/uL <0.87 k/uL [facility] Monocytes/100 WBC (Bld) 6.7 % [facility] Neutrophils (Bld) [#/Vol] 2.25 10*3/uL 1.45 - 7.50 k/uL [facility] Neutrophils/100 WBC (Bld) 53.8 % [facility] Nucleated RBC (Bld) [#/Vol] <0.01 k/uL [facility] Nucleated RBC/100 WBC (Bld) [Ratio] 0.0 /100 WBC [facility] Platelet mean volume (Bld) [Entitic vol] 11.3 fL 9.0 - 12.7 fL [facility] Platelets (Bld) [#/Vol] 144 10*3/uL Low 150 - 400 k/uL [facility] RBC (Bld) [#/Vol] 4.44 10*6/uL 3.90 - 5.2 0 m/uL [facility] WBC (Bld) [#/Vol] 4.18 10*3/uL 3.70 - 11. 00 k/uL [facility] ESR Westergren method (Bld) [Velocity]on 07-12-2023 ESR (Bld) [Velocity] 10 mm/h 0 - 20 mm/hr [facility] HEMOGLOBIN A1C (POC)on 07-12 HbA1c (Bld) [Mass fraction] 8.4 % Abnormal 4.2 - 5.6 % [facility] UA DIP, URINE (POC)on 2022 BILIRUBIN UA (POCT) Small Abnormal Negative [facility] CLARITY UA (POCT) Clear [facility] COLOR UA (POCT) Yellow [facility] GLUCOSE UA (POCT) >=1000 Abnormal Negative mg/dL [facility] Hemoglobin Ql (U) Negative Negative [facility] KETONE UA (POCT) 80 mg/dL Abnormal Negative mg/dL [facility] LEUKOCYTES UA (POCT) Negative Negative [facility] NITRITE UA (POCT) Negative Negative [facility] PH UA (POCT) 5.5 4.5 - 8.0 [facility] Protein Ql (U) Trace Abnormal Negative mg/dL [facility] SPECIFIC GRAVITY UA (POCT) 1.025 1.005 - 1.030 [facility] UROBILINOGEN UA (POCT) 0.2 E.U./dL Normal E.U./dL [facility] XR KNEE GENERAL 4V AP BOTH/P A BOTH/LAT/MERC BILATERALon 03-26-2023 [facility] XR Knee - bilateral 4 Viewso n 03-26-2023 IMPRESSION: 1. No acute osseous abnormality right knee and left knee. 2. Right knee frontal arthroplasty. 3. Tricompartmental left knee osteoarthritis 4. Suboptimal joint space centering frontal weightbearing imaging Medical Operations Supervisor: JADON Transcribe Date/Time: Mar 26 2023 7:15P Dictated by : LATISHA ISAAC MD This examination was interpreted and the report reviewed and electronically signed by: LATISHA ISAAC MD on Mar 26 2023 7:23PM [facility] DIVISION OF RADIOLOGY * * *Final [...] but otherwise maintained. DIVISION OF RADIOLOGY [facility] * * *Final [...] Suboptimal joint space centering frontal weightbearing imaging Medical Operations Supervisor: [facility] Transcribe Date/Time: Mar 26 2023 7:15P Dictated by : LATISHA ISAAC MD This examination was interpreted and the report reviewed and electronically signed by: LATISHA ISAAC MD on Mar 26 2023 7:23PM EST [facility] Radiology Study observation (narrative) [facility] XR Knee - bilateral 4 ViewsO rdered By: [facility] Provider on 03-26-2023 [facility] XR Lumbar spine 3 Viewson IMPRESSION: Lumbar spine degenerative changes as described above. Medical Operations Supervisor: [facility] Transcribe Date/Time: Feb 26 2023 9:54A Dictated by : JORGE SCHWARTZ MD This examination was interpreted and the report reviewed and electronically signed by: JORGE SCHWARTZ MD on Feb 26 2023 9:56AM [facility] DIVISION OF RADIOLOGY * * *Final [...] spine are presented. FINDINGS: There are five skg-zgk-plkxjau lumbar vertebrae. No fracture or subluxations are noted. There appears be L2-3 mild disc space narrowing. There is mild osteophyte formation, with facet arthrosis. Kissing spine noted on lateral view. DIVISION OF RADIOLOGY Provider, [facility] - 02/26/2023 * * *Final Report* * [...] spine are presented. FINDINGS: There are five ile-vhz-ecvuumi lumbar vertebrae. No fracture or subluxations are noted. There appears be L2-3 mild disc space narrowing. There is mild osteophyte formation, with facet arthrosis. Kissing spine noted on lateral view. IMPRESSION IMPRESSION: Lumbar spine degenerative changes as described above. [facility] Transcribe Date/Time: Feb 26 2023 9:54A Dictated by : JORGE SCHWARTZ MD This examination was interpreted and the report reviewed and electronically signed by: JORGE SCHWARTZ MD on Feb 26 2023 9:56AM EST [facility] XR Lumbar spine 3 ViewsOrder ed By: [facility] Provider on 02-26-2023 [facility] XR Lumbar spine 3 Viewson Radiology Study observation (narrative) [facility] XR FOOT GENERAL 3V AP/LAT/OB L LEFTon 10-09-2022 [facility] .Auto Diffon 08-31-2020 Ammonia (P) [Mass/Vol] 0.50 10 3/mcL Normal 0.15-1.00 [facility] ([place]) Comment on above: Performed By: #### C BC, ADIFF, ANEU, CMP, GFR #### [address] [address] Basophils (Bld) [#/Vol] 0.10 10 3/mcL Normal 0.00-0.19 [facility] ([place]) Comment on above: Performed By: #### C BC, ADIFF, ANEU, CMP, GFR #### [id number] [place], [place] [address] Basophils/100 WBC (Bld) 0.9 % Normal 0.0-2.5 [facility] ([place] Comment on above: Performed By: #### C BC, ADIFF, ANEU, CMP, GFR #### [address] [address] Eosinophils (Bld) [#/Vol] 0.10 10 3/mcL Normal 0.00-0.40 [facility] ([place]) Comment on above: Performed By: #### C BC, ADIFF, ANEU, CMP, GFR #### [address] [address] Eosinophils/100 WBC (Bld) 0.9 % Normal 0.0-7.0 [facility] ([place]) Comment on above: Performed By: #### C BC, ADIFF, ANEU, CMP, GFR #### [address] [address] Lymphocytes (Bld) [#/Vol] 2.70 10 3/mcL Normal 0.77-3.85 [facility] ([place]) Comment on above: Performed By: #### C BC, ADIFF, ANEU, CMP, GFR #### [address] [address] Lymphocytes/100 WBC (Bld) 36.7 % Normal 10.0-50.0 [facility] ([place]) Comment on above: Performed By: #### C BC, ADIFF, ANEU, CMP, GFR #### [address] [address] Monocytes/100 WBC (Bld) 7.2 % Normal 1.7-13.0 [facility] ([place] Comment on above: Performed By: #### C BC, ADIFF, ANEU, CMP, GFR #### [address] [address] Neutrophils/100 WBC (Bld) 54.3 % Normal 37.0-80.0 [facility] ([place] Comment on above: Performed By: #### C BC, ADIFF, ANEU, CMP, GFR #### [address] [address] .GFRon 11-04-2020 GFR 146 ml/min/1.73sqm Normal [facility] ([place]) Comment on above: Result Comment: GFR Population [...] C BC, ADIFF, ANEU, CMP, GFR #### [address] [address] GFR Non- 121 ml/min/1.73sqm Normal [facility] ([place] Comment on above: Result Comment: GFR Population [...] C BC, ADIFF, ANEU, CMP, GFR #### [address] [address] .NEUABSon 08-31-2020 Neutrophils (Bld) [#/Vol] 4.00 10 3/mcL Normal 2.85-6.16 [facility] ([place] Comment on above: Performed By: #### C BC, ADIFF, ANEU, CMP, GFR #### [address] [address] CBCon 08-31-2020 Erythrocyte distribution width (RBC) [Ratio] 15.2 % High 11.5-14.5 [facility] ([place] Comment on above: Performed By: #### C BC, ADIFF, ANEU, CMP, GFR #### [place] [id number] Hematocrit (Bld) [Volume fraction] 40.7 % Normal 37.0-47.0 [facility] ([place] Comment on above: Performed By: #### C BC, ADIFF, ANEU, CMP, GFR #### [place] [id number] Hemoglobin (Bld) [Mass/Vol] 13.4 G/dL Normal 12.0-16.0 [facility] ([place] Comment on above: Performed By: #### C BC, ADIFF, ANEU, CMP, GFR #### [place] [id number] MCH (RBC) [Entitic mass] 31.6 pg High 27.0-31.2 [facility] ([place] Comment on above: Performed By: #### C BC, ADIFF, ANEU, CMP, GFR #### [address] [address] MCHC (RBC) [Mass/Vol] 33.0 G/dL Normal 33.0-37.0 [facility] ([place] Comment on above: Performed By: #### C BC, ADIFF, ANEU, CMP, GFR #### [address] [address] MCV (RBC) [Entitic vol] 95.9 fL High 80.0-94.0 [facility] ([place] Comment on above: Performed By: #### C BC, ADIFF, ANEU, CMP, GFR #### [place] [phone] Platelet mean volume (Bld) [Entitic vol] 8.8 fL Normal 7.4-10.4 [facility] ([place] Comment on above: Performed By: #### C BC, ADIFF, ANEU, CMP, GFR #### [address] [address] Platelets (Bld) [#/Vol] 259 10 3/mcL Normal 130-400 [facility] ([place] Comment on above: Performed By: #### C BC, ADIFF, ANEU, CMP, GFR #### [address] [address] RBC (Bld) [#/Vol] 4.25 10 6/mcL Normal 4.20-5.40 [facility] ([place]) Comment on above: Performed By: #### C BC, ADIFF, ANEU, CMP, GFR #### [address] [address] WBC (Bld) [#/Vol] 7.40 10 3/mcL Normal 4.60-10.80 [facility] ([place] Comment on above: Performed By: #### C BC, ADIFF, ANEU, CMP, GFR #### [address] [address] CMPon 08-31-2020 Albumin [Mass/Vol] 3.1 G/dL Low 3.5-5.0 [facility] ([place] Comment on above: Performed By: #### C BC, ADIFF, ANEU, CMP, GFR #### [address] [address] Albumin/Globulin [Mass ratio] 0.9 {ratio} Low 1.1-2.5 [facility] ([place] Comment on above: Performed By: #### C BC, ADIFF, ANEU, CMP, GFR #### [address] [address] ALP [Catalytic activity/Vol] 51 U/L Normal 40-135 [facility] ([place] Comment on above: Performed By: #### C BC, ADIFF, ANEU, CMP, GFR #### [address] [address] ALT [Catalytic activity/Vol] 15 U/L Normal 14-59 [facility] ([place] Comment on above: Performed By: #### C BC, ADIFF, ANEU, CMP, GFR #### [address] [address] AST [Catalytic activity/Vol] 29 U/L Normal 10-40 [facility] ([place] Comment on above: Performed By: #### C BC, ADIFF, ANEU, CMP, GFR #### [address] [address] Bili Total 0.4 mg/dL Normal 0.2-1.0 [facility] ([place] Comment on above: Result Comment: Use of this assay is not recommended for patients undergoing treatment with eltrombopag due to the potential for falsely elevated results. Performed By: #### C BC, ADIFF, ANEU, CMP, GFR #### [address] [address] Calcium [Mass/Vol] 8.3 mg/dL Low 8.4-10.2 [facility] ([place] Comment on above: Performed By: #### C BC, ADIFF, ANEU, CMP, GFR #### [address] [address] Chloride [Moles/Vol] 104 mmol/L Normal 98-107 [facility] ([place] Comment on above: Performed By: #### C BC, ADIFF, ANEU, CMP, GFR #### [address] [address] CO2 [Moles/Vol] 31 mmol/L High 22-29 [facility] ([place] Comment on above: Performed By: #### C BC, ADIFF, ANEU, CMP, GFR #### [address] [address] Creatinine [Mass/Vol] 0.52 mg/dL Low 0.55-1.02 [facility] ([place] Comment on above: Performed By: #### C BC, ADIFF, ANEU, CMP, GFR #### [address] [address] Electrolyte Balance 5.0 mEq/L Normal [facility] [place] Comment on above: Performed By: #### C BC, ADIFF, ANEU, CMP, GFR #### [address] [address] Globulin (S) [Mass/Vol] 3.4 G/dL Normal [facility] ([place] Comment on above: Performed By: #### C BC, ADIFF, ANEU, CMP, GFR #### [address] [address] Glucose [Mass/Vol] 135 mg/dL High 70-105 [facility] ([place] Comment on above: Performed By: #### C BC, ADIFF, ANEU, CMP, GFR #### [address] [address] Potassium [Moles/Vol] 5.0 mmol/L Normal 3.5-5.1 [facility] ([place] Comment on above: Performed By: #### C BC, ADIFF, ANEU, CMP, GFR #### [address] [address] Protein [Mass/Vol] 6.5 G/dL Normal 6.4-8.2 [facility] ([place] Comment on above: Performed By: #### C BC, ADIFF, ANEU, CMP, GFR #### [address] [address] Sodium [Moles/Vol] 140 mmol/L Normal 136-145 [facility] [place] Comment on above: Performed By: #### C BC, ADIFF, ANEU, CMP, GFR #### [address] [address] Urea nitrogen [Mass/Vol] 12 mg/dL Normal 7-18 [facility] ([place] Comment on above: Performed By: #### C BC, ADIFF, ANEU, CMP, GFR #### [address] [address] Urea nitrogen/Creatinine [Mass ratio] 23 ratio Normal 7-27 [facility] ([place] Comment on above: Performed By: #### C BC, ADIFF, ANEU, CMP, GFR #### [place] [id number] [place], [place] [address] Vital Signs Date Time Vital Sign Value Performing Clinician Facility 08-17-2025 17:59-0400 Diastolic Blood Pressure Non-Invasive 62 mm[Hg] ASHLEY MARTIN MD [facility] 08-17-2025 17:59-0400 Heart rate 75 /min ASHLEY MARTIN MD [facility] 08-17-2025 17:59-0400 Systolic Blood Pressure Non-Invasive 126 mm[Hg] ASHLEY MARTIN MD [facility] 08-17-2025 17:21-0400 Body height 162.6 cm ASHLEY MARTIN MD [facility] 08-17-2025 17:21-0400 Body temperature 98.42 [degF] ASHLEY MARTIN MD [facility] 08-17-2025 17:21-0400 Body weight 114 kg ASHLEY MARTIN MD [facility] 08-17-2025 17:21-0400 Diastolic Blood Pressure Non-Invasive 73 mm[Hg] ASHLEY MARTIN MD [facility] 08-17-2025 17:21-0400 Heart rate 92 /min ASHLEY MARTIN MD [facility] 08-17-2025 17:21-0400 Respiratory rate 20 /min ASHLEY MARTIN MD [facility] 08-17-2025 17:21-0400 Systolic Blood Pressure Non-Invasive 144 mm[Hg] ASHLEY MARTIN MD [facility] 04-16-2025 10:04-0400 Body mass index (BMI) [Ratio] 44.29 kg/m2 Lala Older DIRECTOR CONSUMER AFFAIRS.HOT DOG VENDOR Work Phone: [facility] 04-16-2025 10:04-0400 Body weight 117.03 kg Lala Older DIRECTOR CONSUMER AFFAIRS.HOT DOG VENDOR Work Phone: [facility] 04-16-2025 10:04-0400 Diastolic blood pressure 80 mm[Hg] Lala Older DIRECTOR CONSUMER AFFAIRS.HOT DOG VENDOR Work Phone: [facility] 04-16-2025 10:04-0400 Heart rate 76 /min Lala Older DIRECTOR CONSUMER AFFAIRS.HOT DOG VENDOR Work Phone: [facility] 04-16-2025 10:04-0400 Respiratory rate 16 /min Lala Older DIRECTOR CONSUMER AFFAIRS.HOT DOG VENDOR Work Phone: [facility] 04-16-2025 10:04-0400 SaO2% (BldA) [Mass fraction] 96 % Older DIRECTOR CONSUMER AFFAIRS.HOT DOG VENDOR Work Phone: [facility] 04-16-2025 10:04-0400 Systolic blood pressure 144 mm[Hg] Lala Older DIRECTOR CONSUMER AFFAIRS.HOT DOG VENDOR Work Phone: [facility] 11-10-2024 15:50-0500 Diastolic blood pressure 80 mm[Hg] Jaime Spencer DIRECTOR CONSUMER AFFAIRS.CENTRAL STERILE TECHNICIAN Work Phone: [facility] 11-10-2024 15:50-0500 Systolic blood pressure 124 mm[Hg] Jaime Spencer DIRECTOR CONSUMER AFFAIRS.CENTRAL STERILE TECHNICIAN Work Phone: [facility] 11-10-2024 15:49-0500 Body mass index (BMI) [Ratio] 44.65 kg/m2 Jaime Spencer DIRECTOR CONSUMER AFFAIRS.CENTRAL STERILE TECHNICIAN Work Phone: [facility] 11-10-2024 15:49-0500 Body weight 118 kg Jaime Spencer DIRECTOR CONSUMER AFFAIRS.CENTRAL STERILE TECHNICIAN Work Phone: [facility] 11-10-2024 15:49-0500 Heart rate 75 /min Jaime Spencer DIRECTOR CONSUMER AFFAIRS.CENTRAL STERILE TECHNICIAN Work Phone: [facility] 05-06-2024 17:04-0400 Body mass index (BMI) [Ratio] 44.97 kg/m2 Lala Older DIRECTOR CONSUMER AFFAIRS.HOT DOG VENDOR Work Phone: [facility] 05-06-2024 17:04-0400 Body weight 118.84 kg Lala Older DIRECTOR CONSUMER AFFAIRS.HOT DOG VENDOR Work Phone: [facility] 05-06-2024 17:04-0400 Diastolic blood pressure 80 mm[Hg] Lala Older DIRECTOR CONSUMER AFFAIRS.HOT DOG VENDOR Work Phone: [facility] 05-06-2024 17:04-0400 Heart rate 80 /min Lala Older DIRECTOR CONSUMER AFFAIRS.HOT DOG VENDOR Work Phone: [facility] 05-06-2024 17:04-0400 Respiratory rate 16 /min Lala Older DIRECTOR CONSUMER AFFAIRS.HOT DOG VENDOR Work Phone: [facility] 05-06-2024 17:04-0400 SaO2% (BldA) [Mass fraction] 93 % Lala Older DIRECTOR CONSUMER AFFAIRS.HOT DOG VENDOR Work Phone: [facility] 05-06-2024 17:04-0400 Systolic blood pressure 122 mm[Hg] Lala Older DIRECTOR CONSUMER AFFAIRS.HOT DOG VENDOR Work Phone: [facility] 04-29-2024 14:03-0400 Body mass index (BMI) [Ratio] 44.29 kg/m2 Pulm Wstr Work Phone: [facility] 04-29-2024 14:03-0400 Body weight 117.03 kg Pulm Wstr Work Phone: [facility] 04-29-2024 14:01-0400 Body mass index (BMI) [Ratio] 44.29 kg/m2 Monserrat Peng PA-C Work Phone: [facility] 04-29-2024 14:01-0400 Body weight 117.03 kg Monserrat Peng PA-C Work Phone: [facility] 04-29-2024 14:01-0400 Diastolic blood pressure 74 mm[Hg] Monserrat Peng PA-C Work Phone: [facility] 04-29-2024 14:01-0400 Heart rate 85 /min Monserrat Peng PA-C Work Phone: [facility] 04-29-2024 14:01-0400 Respiratory rate 14 /min Monserrat Fordeone PA-C Work Phone: [facility] 04-29-2024 14:01-0400 SaO2% (BldA) [Mass fraction] 92 % Monserrat Fordeone PA-C Work Phone: [facility] 04-29-2024 14:01-0400 Systolic blood pressure 122 mm[Hg] Monserrat Fordeone PA-C Work Phone: [facility] 02-27-2024 14:35-0400 Body mass index (BMI) [Ratio] 44.11 kg/m2 Jaime Spencer DIRECTOR CONSUMER AFFAIRS.CENTRAL STERILE TECHNICIAN Work Phone: [facility] 02-27-2024 14:35-0400 Body weight 116.57 kg Jaime Spencer DIRECTOR CONSUMER AFFAIRS.CENTRAL STERILE TECHNICIAN Work Phone: [facility] 02-27-2024 14:35-0400 Diastolic blood pressure 74 mm[Hg] Jaime Spencer DIRECTOR CONSUMER AFFAIRS.CENTRAL STERILE TECHNICIAN Work Phone: [facility] 02-27-2024 14:35-0400 Heart rate 73 /min Jaime Spencer DIRECTOR CONSUMER AFFAIRS.CENTRAL STERILE TECHNICIAN Work Phone: [facility] 02-27-2024 14:35-0400 Respiratory rate 16 /min Jaime Spencer DIRECTOR CONSUMER AFFAIRS.CENTRAL STERILE TECHNICIAN Work Phone: [facility] 02-27-2024 14:35-0400 Systolic blood pressure 111 mm[Hg] Jaime Spencer DIRECTOR CONSUMER AFFAIRS.CENTRAL STERILE TECHNICIAN Work Phone: [facility] 12-06-2023 14:50-0500 Body height 163.8 cm Pulm Wstr Work Phone: [facility] 12-06-2023 14:50-0500 Body weight 117.03 kg Pulm Wstr Work Phone: [facility] 12-06-2023 14:50-0500 Heart rate 76 /min Pulm Wstr Work Phone: [facility] 12-06-2023 14:50-0500 Respiratory rate 16 /min Pulm Wstr Work Phone: [facility] 12-06-2023 14:50-0500 SaO2% (BldA) [Mass fraction] 96 % Pulm Wstr Work Phone: [facility] 08-09-2023 14:00-0400 Body weight 113.85 kg Jaime Spencer DIRECTOR CONSUMER AFFAIRS.CENTRAL STERILE TECHNICIAN Work Phone: [facility] 08-09-2023 14:00-0400 Diastolic blood pressure 83 mm[Hg] [facility] DIRECTOR CONSUMER AFFAIRS.CENTRAL STERILE TECHNICIAN Work Phone: [facility] 08-09-2023 14:00-0400 Heart rate 78 /min [facility] DIRECTOR CONSUMER AFFAIRS.CENTRAL STERILE TECHNICIAN Work Phone: [facility] 08-09-2023 14:00-0400 Systolic blood pressure 113 mm[Hg] [facility] DIRECTOR CONSUMER AFFAIRS.CENTRAL STERILE TECHNICIAN Work Phone: [facility] 07-15-2023 02:40-0400 Diastolic Blood Pressure Non-Invasive [address] MORGAN BENJAMIN MD [facility] 07-15-2023 02:40-0400 Heart rate 92 /min DR MORGAN BENJAMIN MD [facility] 07-15-2023 02:40-0400 Reason For Taking VItal Signs DR MORGAN BENJAMIN MD [facility] 07-15-2023 02:40-0400 Respiratory rate 20 /min DR MORGAN BENJAMIN MD [facility] 07-15-2023 02:40-0400 Systolic Blood Pressure Non-Invasive [address] MORGAN BENJAMIN MD [facility] 07-15-2023 01:44-0400 Body temperature 97.88 [degF] DR MORGAN BENJAMIN MD [facility] 07-15-2023 01:44-0400 Diastolic Blood Pressure Non-Invasive [address] MORGAN BENJAMIN MD [facility] 07-15-2023 01:44-0400 Heart rate 100 /min DR MORGAN BENJAMIN MD [facility] 07-15-2023 01:44-0400 Respiratory rate 20 /min DR MORGAN BENJAMIN MD [facility] 07-15-2023 01:44-0400 Systolic Blood Pressure Non-Invasive [address] MORGAN BENJAMIN MD [facility] 07-12-2023 10:48-0400 Body temperature 97.3 [degF] Lala Older DIRECTOR CONSUMER AFFAIRS.HOT DOG VENDOR Work Phone: [facility] 07-12-2023 10:48-0400 Body weight 114.13 kg Lala Older DIRECTOR CONSUMER AFFAIRS.HOT DOG VENDOR Work Phone: [facility] 07-12-2023 10:48-0400 Diastolic blood pressure 74 mm[Hg] Lala Older DIRECTOR CONSUMER AFFAIRS.HOT DOG VENDOR Work Phone: [facility] 07-12-2023 10:48-0400 Heart rate 110 /min Lala Older DIRECTOR CONSUMER AFFAIRS.HOT DOG VENDOR Work Phone: [facility] 07-12-2023 10:48-0400 Respiratory rate 16 /min Lala Older DIRECTOR CONSUMER AFFAIRS.HOT DOG VENDOR Work Phone: [facility] 07-12-2023 10:48-0400 SaO2% (BldA) [Mass fraction] 98 % Lala Older DIRECTOR CONSUMER AFFAIRS.HOT DOG VENDOR Work Phone: [facility] 07-12-2023 10:48-0400 Systolic blood pressure 120 mm[Hg] Lala Older DIRECTOR CONSUMER AFFAIRS.HOT DOG VENDOR Work Phone: [facility] 06-29-2023 20:32-0400 Body temperature 98.6 [degF] DR AIDAN ROBLES DO [facility] 06-29-2023 20:32-0400 Diastolic Blood Pressure Non-Invasive [address] AIDAN ROBLES DO [facility] 06-29-2023 20:32-0400 Heart rate 87 /min DR AIDAN ROBLES DO [facility] 06-29-2023 20:32-0400 Respiratory rate 20 /min DR AIDAN ROBLES DO [facility] 06-29-2023 20:32-0400 Systolic Blood Pressure Non-Invasive [address] AIDAN ROBLES DO [facility] 05-23-2023 15:00-0400 Diastolic blood pressure 77 mm[Hg] Thom Golias PT Work Phone: [facility] 05-23-2023 15:00-0400 Heart rate 74 /min Thom Golias PT Work Phone: [facility] 05-23-2023 15:00-0400 Systolic blood pressure 120 mm[Hg] Thom Golias PT Work Phone: [facility] 03-26-2023 18:15-0400 Body temperature 97.59 [degF] Gavi Praisler-Wood DIRECTOR CONSUMER AFFAIRS.HOT DOG VENDOR Work Phone: [facility] 03-26-2023 18:15-0400 Diastolic blood pressure 78 mm[Hg] Gavi Praisler-Wood DIRECTOR CONSUMER AFFAIRS.HOT DOG VENDOR Work Phone: [facility] 03-26-2023 18:15-0400 Heart rate 88 /min Gavi Praisler-Wood DIRECTOR CONSUMER AFFAIRS.HOT DOG VENDOR Work Phone: [facility] 03-26-2023 18:15-0400 Respiratory rate 16 /min Gavi Praisler-Wood DIRECTOR CONSUMER AFFAIRS.HOT DOG VENDOR Work Phone: [facility] 03-26-2023 18:15-0400 SaO2% (BldA) [Mass fraction] 94 % Gavi Praisler-Wood DIRECTOR CONSUMER AFFAIRS.HOT DOG VENDOR Work Phone: [facility] 03-26-2023 18:15-0400 Systolic blood pressure 128 mm[Hg] Gavi Norwood DIRECTOR CONSUMER AFFAIRS.HOT DOG VENDOR Work Phone: [facility] 01-23-2023 19:15-0400 Body height 160 cm Monik Hackett MD Work Phone: [facility] 01-23-2023 19:15-0400 Body temperature 96.1 [degF] Monik Hackett MD Work Phone: [facility] 01-23-2023 19:15-0400 Body weight 116.12 kg Monik Hackett MD Work Phone: [facility] 01-23-2023 19:15-0400 Diastolic blood pressure 64 mm[Hg] Monik Hackett MD Work Phone: [facility] 01-23-2023 19:15-0400 Heart rate 81 /min Monik Hackett MD Work Phone: [facility] 01-23-2023 19:15-0400 Respiratory rate 16 /min Monik Hackett MD Work Phone: [facility] 01-23-2023 19:15-0400 SaO2% (BldA) [Mass fraction] 94 % Monik Hackett MD Work Phone: [facility] 01-23-2023 19:15-0400 Systolic blood pressure 118 mm[Hg] Monik Hackett MD Work Phone: [facility] 06-27-2022 16:54-0400 Body height 160 cm Monik Hackett MD Work Phone: [facility] 06-27-2022 16:54-0400 Body temperature 97 [degF] Monik Hackett MD Work Phone: [facility] 06-27-2022 16:54-0400 Body weight 119.75 kg Monik Hackett MD Work Phone: [facility] 06-27-2022 16:54-0400 Diastolic blood pressure 74 mm[Hg] Monik Hackett MD Work Phone: [facility] 06-27-2022 16:54-0400 Heart rate 74 /min Monik Hackett MD Work Phone: [facility] 06-27-2022 16:54-0400 Respiratory rate 16 /min Monik Hackett MD Work Phone: [facility] 06-27-2022 16:54-0400 SaO2% (BldA) [Mass fraction] 96 % Monik Hackett MD Work Phone: [facility] 06-27-2022 16:54-0400 Systolic blood pressure 124 mm[Hg] Monik Hackett MD Work Phone: [facility] 05-30-2022 16:20-0400 Body weight 122.92 kg Trixie Srinivasa DIRECTOR CONSUMER AFFAIRS.HOT DOG VENDOR Work Phone: [facility] 05-30-2022 16:20-0400 Diastolic blood pressure 84 mm[Hg] Trixie Srinivasa DIRECTOR CONSUMER AFFAIRS.HOT DOG VENDOR Work Phone: [facility] 05-30-2022 16:20-0400 Heart rate 74 /min Trixie Srinivasa DIRECTOR CONSUMER AFFAIRS.HOT DOG VENDOR Work Phone: [facility] 05-30-2022 16:20-0400 Respiratory rate 16 /min Trixie Srinivasa DIRECTOR CONSUMER AFFAIRS.HOT DOG VENDOR Work Phone: [facility] 05-30-2022 16:20-0400 SaO2% (BldA) [Mass fraction] 92 % Trixie Srinivasa DIRECTOR CONSUMER AFFAIRS.HOT DOG VENDOR Work Phone: [facility] 05-30-2022 16:20-0400 Systolic blood pressure 136 mm[Hg] Trixie Srinivasa DIRECTOR CONSUMER AFFAIRS.HOT DOG VENDOR Work Phone: [facility] Encounters Encounter Date Encounter Type Care Provider Facility Start: 02-09-2026 ambulatory Con Vee Facility :[facility] Start: 09-03-2025 End: 09-03-2025 ambulatory MONIK HACKETT Facility:[facility] Start: 08-25-2025 ambulatory [facility] Facility:[facility] Start: 08-25-2025 End: 08-25-2025 ambulatory [facility] Facility:[facility] Start: 08-20-2025 End: 08-20-2025 ambulatory [facility] Facility:[facility] Start: 08-20-2025 End: 08-20-2025 ambulatory LALA OLDER Facility:[facility] Start: 08-17-2025 End: 08-17-2025 Emergency department patient visit ASHLEY MARTIN MD [facility] Start: 08-02-2025 End: 08-02-2025 [facility] Start: 07-31-2025 End: 07-31-2025 Emergency department patient visit Jose Khoury Facility:[facility] Start: 07-20-2025 End: 07-20-2025 ambulatory [facility] Facility:[facility] Start: 07-20-2025 End: 07-20-2025 ambulatory [facility] Facility:[facility] Start: 06-14-2025 End: 06-14-2025 Refill Lala Older DIRECTOR CONSUMER AFFAIRS.HOT DOG VENDOR Work Phone: [facility] Comment on above: Med Change Request Start: 05-18-2025 End: 05-19-2025 Refill Monik Hackett MD Work Phone: [facility] [place] Comment on above: Refill Request Start: 05-07-2025 End: 05-07-2025 Refill Lala Older DIRECTOR CONSUMER AFFAIRS.HOT DOG VENDOR Work Phone: [facility] Comment on above: Med Change Request Start: 04-26-2025 End: 04-27-2025 Refill Monik Hackett MD Work Phone: [facility] Comment on above: Refill Request Start: 04-19-2025 End: 06-19-2025 Follow-up encounter Lala Harrison DIRECTOR CONSUMER AFFAIRS.HOT DOG VENDOR Work Phone: [facility] [place] Start: 04-16-2025 End: 04-16-2025 ambulatory [facility] Facility:[facility] Start: 04-16-2025 End: 04-16-2025 Office outpatient visit 25 minutes Lala Harrison APRN.CNP Work Phone: [facility] [place] Comment on above: Dizziness (Primary D x); Tinnitus of both ears; Controlled type 2 diabetes mellitus without complication, with long-term current use of insulin ([facility]); Other chronic pain; Weight gain; Paresthesia of bilateral legs; Insomnia, unspecified type; Schizophrenia, unspecified type ([facility]); Panic disorder without agoraphobia; Medication management Start: 04-16-2025 End: 04-16-2025 [facility] Facility:[facility] Start: 04-12-2025 End: 04-12-2025 Telephone encounter [...] Monik Hackett MD Work Phone: [facility] [place] Comment on above: Order Request Start: 02-23-2025 End: 02-23-2025 Refill Monik Hackett MD Work Phone: [facility] [place] Comment on above: Refill Request Start: 02-08-2025 End: 02-10-2025 Refill Monik Hackett MD Work Phone: [facility] [place] Comment on above: Refill Request Start: 01-20-2025 End: 02-01-2025 Refill Lala Harrison APRN.CNP Work Phone: [facility] [place] Comment on above: Refill Request Start: 01-04-2025 End: 01-05-2025 Telephone encounter Monik Hackett MD Work Phone: [facility] [place] Comment on above: Refill Request; Medi cation Problem Refill Request Start: 12-07-2024 End: 12-08-2024 Refill Monik Hackett MD Work Phone: [facility] [place] Comment on above: Refill Request Start: 12-01-2024 End: 12-01-2024 Telephone encounter Monik Hackett MD Work Phone: [facility] [place] Comment on above: Patient Update Start: 11-11-2024 End: 11-13-2024 Telephone encounter Oscar Olivarez BOLT MACHINE OPERATOR Navigation Start: 11-10-2024 End: 11-10-2024 [facility] Facility:[facility] Start: 11-10-2024 End: 11-10-2024 ambulatory [facility] Facility:[facility] Start: 11-10-2024 End: 11-10-2024 Office outpatient visit 25 minutes Jaime Spencer APRN.CNS Work Phone: [facility] [place] Comment on above: Panic disorder witho ut agoraphobia (Primary Dx); Moderate episode of recurrent major depressive disorder (HCC); Insomnia, unspecified type; Controlled type 2 diabetes mellitus without complication, with long-term current use of insulin (HCC); Burning sensation; Fibromyalgia; Other fatigue; Generalized pain Start: 11-03-2024 End: 11-04-2024 Refill Monik Hackett MD Work Phone: Internal Medicine [place] Comment on above: Refill Request; Lab Orders Start: 09-22-2024 End: 09-25-2024 ambulatory Monik Hackett MD Work Phone: Internal Medicine [facility] Start: 08-20-2024 End: 08-20-2024 Refill Monik Hackett MD Work Phone: Internal Medicine [place] Comment on above: Refill Request Start: 08-11-2024 End: 08-12-2024 Refill Susan Rea DIRECTOR CONSUMER AFFAIRS.HOT DOG VENDOR Work Phone: Internal Medicine [place] Comment on above: Refill Request Start: 06-26-2024 End: 06-26-2024 Refill Monik Hackett MD Work Phone: Internal Medicine [place] Comment on above: Refill Request Start: 06-18-2024 End: 06-23-2024 Refill Lala Harrison APRN.HOT DOG VENDOR Work Phone: Internal Medicine [place] Comment on above: Med Change Request Start: 06-12-2024 Refill Monik Burnette Work Phone: Internal Medicine [place] Comment on above: Med Change Request Start: 06-11-2024 Refill Lala Harrison APRN .HOT DOG VENDOR Work Phone: Internal Medicine [place] Comment on above: Refill Request Start: 06-01-2024 Refill Monik Burnette Work Phone: [facility] Comment on above: Refill Request Start: 05-08-2024 Telephone encounter Jaime julian DIRECTOR CONSUMER AFFAIRS.CENTRAL STERILE TECHNICIAN Work Phone: Internal Medicine [place] Comment on above: Procedure Start: 05-06-2024 End: 05-06-2024 Patient encounter procedure Lala Harrison APRN.HOT DOG VENDOR Work Phone: Internal Medicine [place] Comment on above: Controlled type 2 di abetes mellitus without complication, with long-term current use of insulin (HCC) (Primary Dx); Chest pain, unspecified type; SOBOE (shortness of breath on exertion) Start: 04-29-2024 End: 04-29-2024 ambulatory Pulm Lab [facility] Work Phone: [facility] Comment on above: Spirometry Start: 04-29-2024 End: 04-29-2024 Patient encounter procedure Pulm Lab [facility] Work Phone: [facility] Comment on above: Mild persistent asth ma without complication (Primary Dx); SOB (shortness of breath); Hypoxemia; Morbid obesity (HCC) Start: 04-27-2024 Refill Jaime Spencer A PRN.CENTRAL STERILE TECHNICIAN Work Phone: Internal Medicine [place] Comment on above: Refill Request Start: 04-08-2024 Refill Susan Rea A PRN.HOT DOG VENDOR Work Phone: Family Medicine [place] Comment on above: Refill Request Start: 2024 Telephone encounter Monik duncan MD Work Phone: Internal Medicine [place] Comment on above: Insurance Authorizat ion ([place]) Start: 03-12-2024 Refill Jaime Spencer A PRN.CENTRAL STERILE TECHNICIAN Work Phone: Internal Medicine [place] Start: 02-27-2024 End: 02-27-2024 Office outpatient visit 25 minutes Jaime Spencer DIRECTOR CONSUMER AFFAIRS.CENTRAL STERILE TECHNICIAN Work Phone: Internal Medicine [place] Comment on above: Chest pain, unspecif ied type (Primary Dx); SOBOE (shortness of breath on exertion); Hot flashes; Controlled type 2 diabetes mellitus without complication, with long-term current use of insulin ([facility]); Screening for diabetic retinopathy; Irritant contact dermatitis due to cosmetics; Encounter for immunization Start: 02-27-2024 Telephone encounter Camila Johns MD Work Phone: Pulmonary Medicine Comment on above: Orders Start: 02-13-2024 Refill Lala Harrison DIRECTOR CONSUMER AFFAIRS .HOT DOG VENDOR Work Phone: Internal Medicine [place] Comment on above: Refill Request Start: 02-06-2024 Refill Lala Harrison DIRECTOR CONSUMER AFFAIRS .HOT DOG VENDOR Work Phone: Internal Medicine [place] Comment on above: Refill Request Start: 01-24-2024 Refill Yasmine camacho DIRECTOR CONSUMER AFFAIRS.HOT DOG VENDOR Work Phone: Internal Medicine [place] Comment on above: Refill Request Start: 01-07-2024 Refill Jaime Spencer A PRN.CENTRAL STERILE TECHNICIAN Work Phone: Internal Medicine [place] Comment on above: Refill Request Start: 01-06-2024 Refill Susan Rea A PRN.HOT DOG VENDOR Work Phone: Family Medicine [place] Comment on above: Refill Request Start: 12-11-2023 Telephone encounter Yasmine M Hers hberger DIRECTOR CONSUMER AFFAIRS.HOT DOG VENDOR Work Phone: Internal Medicine [place] Comment on above: Results Start: 12-10-2023 Refill Jaime Spencer A PRN.CENTRAL STERILE TECHNICIAN Work Phone: Internal Medicine [place] Comment on above: Refill Request Start: 12-09-2023 Telephone encounter Yasmine Oliveros hberger DIRECTOR CONSUMER AFFAIRS.HOT DOG VENDOR Work Phone: Internal [facility] [place] Start: 12-07-2023 Refill Jaime Spencer A PRN.CENTRAL STERILE TECHNICIAN Work Phone: Internal Medicine [place] Comment on above: Refill Request Start: 12-06-2023 End: 12-06-2023 ambulatory Pulm Lab [facility] Work Phone: [facility] Comment on above: Spirometry Start: 12-06-2023 End: 12-06-2023 Patient encounter procedure Pulm Lab [facility] Work Phone: [place] [facility] Start: 11-29-2023 Telephone encounter Monik duncan MD Work Phone: Internal Medicine [place] Comment on above: DME for oxygen Start: 11-25-2023 End: 11-25-2023 Subsequent hospital visit by physician Xr [facility] [place] Work Phone: Radiology Comment on above: Pain of right thumb [M79.644] Start: 11-04-2023 End: 11-04-2023 Subsequent hospital visit by physician Xr [facility] [place] Work Phone: Radiology Comment on above: Acute cough [R05.1] Start: 10-03-2023 ambulatory Lala Older DIRECTOR CONSUMER AFFAIRS .HOT DOG VENDOR Work Phone: Internal Medicine [place] Comment on above: [facility] not filed my Rosuvastatin I requested on October 01 Refill Request Start: 10-01-2023 Refill Kelsi Alfred PA-C Work Phone: Internal Medicine [place] Comment on above: Refill Request I Need A Pulse Oxime ter & Blood Pressure Cuff Meter Start: 08-27-2023 Telephone encounter Constance Humphries [facility] Work Phone: [facility] Comment on above: Missed Appointment Start: 08-21-2023 Refill Yasmine ReyesHOT DOG VENDOR Work Phone: Internal Medicine [place] Comment on above: Refill Request Start: 08-13-2023 Telephone encounter Jaime julian DIRECTOR CONSUMER AFFAIRS.CENTRAL STERILE TECHNICIAN Work Phone: Internal Medicine [place] Comment on above: Medication Problem Refill Request Start: 08-09-2023 End: 08-09-2023 Office outpatient visit 25 minutes Jaime Spencer DIRECTOR CONSUMER AFFAIRS.CENTRAL STERILE TECHNICIAN Work Phone: Internal Medicine [place] Comment on above: NANCY positive (Primar y Dx); History of iron deficiency; Esophageal reflux; Screening for cervical cancer; Screening for colon cancer; Encounter for immunization; Controlled type 2 diabetes mellitus without complication, with long-term current use of insulin ([facility]); Screening for diabetic retinopathy; Generalized pain; Burning sensation; Fibromyalgia; Irritant contact dermatitis due to cosmetics; Rash and nonspecific skin eruption Start: 07-15-2023 Refill Monik Burnette Work Phone: Internal Medicine [place] Comment on above: Refill Request (New blood sugar meter/supplies//) Start: 07-15-2023 End: 07-15-2023 Emergency department patient visit DR MORGAN BENJAMIN MD [facility] Start: 07-12-2023 End: 07-12-2023 Patient encounter procedure Lala Harrison APRN.HOT DOG VENDOR Work Phone: Internal Medicine [place] Comment on above: Generalized pain (Pr imary Dx); Burning sensation; Weakness; Brain fog; Controlled type 2 diabetes mellitus without complication, with long-term current use of insulin (HCC); Fibromyalgia Start: 06-29-2023 End: 06-29-2023 Emergency department patient visit DR AIDAN ROBLES DO [facility] Start: 06-11-2023 Refill Lala Harrison APRN, .CNP Work Phone: Internal Medicine [place] Comment on above: Refill Request Start: 05-27-2023 End: 05-27-2023 ambulatory Ricardo Dinh [facility] Work Phone: [facility] Comment on above: Controlled type 2 di abetes mellitus without complication, with long-term current use of insulin (HCC) (Primary Dx) Start: 05-27-2023 End: 05-27-2023 Telemedicine consultation with patient Ricardo Dinh [facility] Work Phone: [facility] Start: 05-23-2023 End: 05-23-2023 OT/PT/Speech Visit Thom Enamorado PT Work Phone: [facility] Comment on above: 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 (Primary Dx); Benign paroxysmal vertigo of both ears Start: 05-01-2023 ambulatory Monik Burnette Work Phone: [facility] [place] Start: 04-29-2023 Refill Monik Burnette Work Phone: [facility] Comment on above: Med Change Request Start: 04-19-2023 ambulatory No One (Historical) Ref erring Physician Start: 04-16-2023 ambulatory No Pcp (Historcal) Refe rring Physician Start: 04-15-2023 Telephone encounter Monik duncan MD Work Phone: [facility] [place] Comment on above: Insurance Authorizat ion Start: 04-14-2023 Refill Monik Burnette Work Phone: [facility] Comment on above: Med Change Request Start: 04-11-2023 End: 04-11-2023 Patient encounter procedure Fior Joseph [facility] Work Phone: [facility] Comment on above: Controlled type 2 di abetes mellitus without complication, with long-term current use of insulin (HCC) (Primary Dx); Medication management Refill Request Start: 03-26-2023 End: 03-26-2023 Subsequent hospital visit by physician Sushila [facility] [place] Work Phone: Radiology Comment on above: Knee joint injury, i nitial encounter [S89.90XA] Start: 03-26-2023 End: 03-26-2023 Patient encounter procedure Gavi Norwood DIRECTOR CONSUMER AFFAIRS.HOT DOG VENDOR Work Phone: [place] [facility] Comment on above: Knee joint injury, i nitial encounter (Primary Dx) Start: 02-26-2023 Telephone encounter Monik duncan MD Work Phone: Internal Medicine [place] Comment on above: Xray Results Start: 02-22-2023 End: 02-22-2023 Subsequent hospital visit by physician Xr [facility] [place] Work Phone: Radiology Comment on above: Chronic bilateral lo w back pain with bilateral sciatica [M54.42, M54.41, G89.29] Start: 01-31-2023 Telephone encounter Jess Perry [facility] Work Phone: [facility] Comment on above: Appointment Start: 01-30-2023 Refill Monik Burnette Work Phone: Internal Medicine [place] Comment on above: Refill Request Start: 01-23-2023 End: 01-23-2023 Patient encounter procedure Monik Hackett MD Work Phone: Internal Medicine [place] Comment on above: Schizophrenia, unspe cified type (HCC) (Primary Dx); Fibromyalgia; Moderate episode of recurrent major depressive disorder (HCC); Controlled type 2 diabetes mellitus without complication, with long-term current use of insulin (HCC); Hypertriglyceridemia; Subcutaneous nodules Start: 01-01-2023 Refill Monik Burnette Work Phone: Internal Medicine [place] Comment on above: Refill Request Start: 12-21-2022 ambulatory Trixie martin DIRECTOR CONSUMER AFFAIRS.HOT DOG VENDOR Work Phone: Family Medicine [place] Comment on above: Question regarding C BC Start: 11-26-2022 Refill Lala Harrison APRN .HOT DOG VENDOR Work Phone: Internal Medicine [place] Comment on above: Refill Request Start: 11-12-2022 Refill Lala ReyesHOT DOG VENDOR Work Phone: Internal Medicine [place] Comment on above: Refill Request Start: 10-09-2022 End: 10-09-2022 Subsequent hospital visit by physician Sushila [facility] [place] Work Phone: Radiology Comment on above: Hammertoe of left fo ot [M20.42] Start: 09-24-2022 Refill Lala Older DIRECTOR CONSUMER AFFAIRS .HOT DOG VENDOR Work Phone: [facility] Medicine [place] Comment on above: Refill Request Start: 09-06-2022 Refill Trixietremaine Choudhurym an DIRECTOR CONSUMER AFFAIRS.HOT DOG VENDOR Work Phone: [facility] [place] Comment on above: Refill Request Start: 08-20-2022 Refill Lala Older DIRECTOR CONSUMER AFFAIRS .HOT DOG VENDOR Work Phone: Internal Medicine [place] Comment on above: Refill Request Start: 07-25-2022 ambulatory No Pcp (Historical) Ref erring Physician Start: 07-17-2022 Refill Trixie Choudhurym an DIRECTOR CONSUMER AFFAIRS.HOT DOG VENDOR Work Phone: [facility] [place] Comment on above: Refill Request Start: 07-03-2022 Refill Lala Older DIRECTOR CONSUMER AFFAIRS .HOT DOG VENDOR Work Phone: Family Medicine [place] Comment on above: Refill Request Start: 06-27-2022 End: 06-27-2022 Patient encounter procedure Monik Hackett MD Work Phone: Internal Medicine [place] Comment on above: Pitted nails (Primar y Dx); Controlled type 2 diabetes mellitus without complication, with long-term current use of insulin (HCC); Mixed hyperlipidemia; Vitamin B12 deficiency Start: 05-30-2022 End: 05-30-2022 Office outpatient visit 40 minutes Trixie Gibson DIRECTOR CONSUMER AFFAIRS.HOT DOG VENDOR Work Phone: [facility] [place] Comment on above: Onychomycosis (Prima ry Dx) Start: 05-23-2022 ambulatory Monik Burnette Work Phone: [facility] [place] Start: 05-14-2022 Refill Lala Older DIRECTOR CONSUMER AFFAIRS .HOT DOG VENDOR Work Phone: Internal Medicine [place] Comment on above: Refill Request Start: 05-05-2022 Refill Lala Older DIRECTOR CONSUMER AFFAIRS .HOT DOG VENDOR Work Phone: Internal Medicine [place] Comment on above: Refill Request Start: 03-14-2022 ambulatory Trixie Pati martin DIRECTOR CONSUMER AFFAIRS.HOT DOG VENDOR Work Phone: [facility] [place] Comment on above: IRON, COMPREHENSIVE METABOLIC PANEL, A1C Start: 03-13-2022 ambulatory Trixie Wilcoxavel martin DIRECTOR CONSUMER AFFAIRS.HOT DOG VENDOR Work Phone: [facility] [place] Comment on above: TOE NAILS Start: 02-09-2022 Refill Lala Older DIRECTOR CONSUMER AFFAIRS .HOT DOG VENDOR Work Phone: Internal Medicine [place] Comment on above: Refill Request Procedures Date Procedure Procedure Detail Performing Clinician Start: 04-29-2024 Nitric oxide gas determination Camila Johns MD Work Phone: Start: 12-06-2023 Noninvasive ear/puls e oximetry multiple deter Yasmine Martinez DIRECTOR CONSUMER AFFAIRS.HOT DOG VENDOR Work Phone: Start: 12-06-2023 Plethysmography lung volumes w/wo airway resist Yasmine Martinez DIRECTOR CONSUMER AFFAIRS.HOT DOG VENDOR Work Phone: Start: 11-25-2023 Radex fingr minimum 2 views Gavi Norwood DIRECTOR CONSUMER AFFAIRS.HOT DOG VENDOR Work Phone: Start: 11-04-2023 Radiologic exam ches t 2 views Yasmine Martinez DIRECTOR CONSUMER AFFAIRS.HOT DOG VENDOR Work Phone: Start: 08-09-2023 INFLUENZA VACCINE, A GE 6 MO - 64 YR, QUADRIVALENT (AFLURIA, FLULAVAL, FLUZONE) Jaime Spencer DIRECTOR CONSUMER AFFAIRS.CENTRAL STERILE TECHNICIAN Work Phone: Start: 07-12-2023 Urnls dip stick/tabl et rgnt auto w/o microscopy Lala Harrison DIRECTOR CONSUMER AFFAIRS.HOT DOG VENDOR Work Phone: Start: 07-12-2023 Hemoglobin A1c/Hemoglobin.total in Blood Lala Harrison DIRECTOR CONSUMER AFFAIRS.HOT DOG VENDOR Work Phone: Start: 03-26-2023 Radiologic exam knee complete 4/more views Gavi Norwood DIRECTOR CONSUMER AFFAIRS.HOT DOG VENDOR Work Phone: Start: 02-22-2023 Radex spine lumbosac ral 2/3 views Monik Hackett MD Work Phone: Start: 10-09-2022 Radex foot complete minimum 3 views Narendra Turner Work Phone: Start: 05-20-2006 Mammography Lala Older DIRECTOR CONSUMER AFFAIRS.HOT DOG VENDOR Work Phone: Abdominal hysterectomy DR RANDALL BENJAMIN MD History of right tot al knee replacement DR MORGAN BENJAMIN MD Tonsillectomy DR MORGAN BENJAMIN MD Plan of Treatment Date Care Activity Detail Author Start: 10-02-2031 Urine microalbumin profile [facility] Start: 04-17-2026 Hepatitis B screening Urine Albumin:Creatinine Ratio [facility] Start: 04-16-2026 Annual PCP Team Chronic Disease Visit Annual PCP Team Chronic Disease Visit [facility] Start: 11-10-2025 Hepatitis B surface antibody level LDL Cholesterol [facility] Start: 10-16-2025 Hemoglobin A1c measurement HbA1C [facility] Start: 06-28-2025 Influenza vaccination [facility] Start: 06-25-2025 End: 06-25-2025 Patient encounter procedure 06/25/2025 4:20 PM EDT Office Visit Internal Medicine [place] [address] [place] [address] Monik Hackett MD [address] [place], [place] [id number] follow up Internal Medicine [place] Comment on above: follow up Start: 05-10-2025 Hemoglobin A1c measurement HbA1C [facility] Start: 05-06-2025 Annual PCP Team Chronic Disease Visit Annual PCP Team Chronic Disease Visit [facility] Start: 04-20-2025 End: 04-20-2025 Patient encounter procedure 04/20/2025 2:40 PM EDT Office Visit Internal Medicine [place] [address] [place] [address] Monik Hackett MD [address] [facility] [place] [address] follow up [facility] [place] Comment on above: follow up Start: 04-16-2025 End: 07-16-2025 Cobalamin (Vitamin B12) [Mass/volume] in Serum or Plasma [facility] Comment on above: Expected: 04/16/2025, Expires: Start: 04-16-2025 End: 07-16-2025 Comprehensive metabolic 2000 panel - Serum or Plasma [facility] Comment on above: Expected: 04/16/2025, Expires: Start: 04-16-2025 End: 07-16-2025 Cortisol [Mass/volume] in Serum or Plasma [facility] Comment on above: Expected: 04/16/2025, Expires: Start: 04-16-2025 End: 07-16-2025 Hemoglobin A1c in Blood [facility] [employer] Work Phone: Comment on above: Expected: 04/16/2025, Expires: Start: 04-16-2025 End: 07-16-2025 Microalbumin/Creatinine [Mass Ratio] in Urine ALBUMIN/CREATININE RATIO, URINE Lab Routine Controlled type 2 diabetes mellitus without complication, with long-term current use of insulin (HCC) Expected: 04/16/2025, Expires: 07/16/2025 [facility] Comment on above: Expected: 04/16/2025, Expires: Start: 04-16-2025 End: 07-16-2025 Thyrotropin [Units/volume] in Serum or Plasma [facility] Comment on above: Expected: 04/16/2025, Expires: Start: 04-16-2025 End: 07-16-2025 Thyroxine (T4) free [Mass/volume] in Serum or Plasma [facility] Comment on above: Expected: 04/16/2025, Expires: Start: 04-16-2025 End: 07-16-2025 Triiodothyronine (T3) Free [Mass/volume] in Serum or Plasma [facility] Comment on above: Expected: 04/16/2025, Expires: Start: 04-16-2025 End: 07-16-2025 Urinalysis complete panel - Urine URINALYSIS (WITH MICROSCOPIC) WITH CULTURE IF INDICATED Lab Routine Dizziness Tinnitus of both ears Controlled type 2 diabetes mellitus without complication, with long-term current use of insulin (HCC) Weight gain Paresthesia of bilateral legs Expected: 04/16/2025, Expires: 07/16/2025 [facility] Comment on above: Expected: 04/16/2025, Expires: Start: 04-16-2025 End: 04-16-2025 Patient encounter procedure 04/16/2025 8:00 AM EDT Office Visit [facility] [place] [address] [facility] [place] [address] Monik Hackett MD [address] [facility] [place] [address] Generalized Weakness, fatigue, irritable. SEE TE. [facility] [place] Comment on above: Generalized Weakness, fatigue, irritable . SEE TE. Start: 03-19-2025 End: 03-19-2025 Patient encounter procedure 03/19/2025 4:20 PM EDT Office Visit [facility] Medicine [place] [address] [facility] [place] [address] Monik Hackett MD [address] [facility] [place] [address] follow up [facility] Medicine [place] Comment on above: follow up Start: 02-05-2025 End: 02-05-2025 Patient encounter procedure 02/05/2025 4:20 PM EDT Office Visit [facility] Medicine [place] [address] [facility] [place] [address] Monik Hackett MD [address] [facility] [place] [address] follow up [facility] Medicine [place] Comment on above: follow up Start: 12-15-2024 End: 12-15-2024 Patient encounter procedure 12/15/2024 2:40 PM EST Office Visit [facility] Medicine [place] [address] [facility] [place] [address] Monik Hackett MD [address] [facility] [place] [address] follow up [facility] Medicine [place] Comment on above: follow up Start: 11-10-2024 End: 02-09-2025 25-hydroxyvitamin D3 [Mass/volume] in Serum or Plasma [facility] Comment on above: Expected: 11/10/2024, Expires: Start: 11-10-2024 End: 02-09-2025 CBC W Auto Differential panel - Blood [facility] Work Phone: Comment on above: Expected: 11/10/2024, Expires: Start: 11-10-2024 End: 02-09-2025 Cobalamin (Vitamin B12) [Mass/volume] in Serum or Plasma [facility] Comment on above: Expected: 11/10/2024, Expires: Start: 11-10-2024 End: 02-09-2025 Comprehensive metabolic 2000 panel - Serum or Plasma [facility] Comment on above: Expected: 11/10/2024, Expires: Start: 11-10-2024 End: 02-09-2025 Ferritin [Mass/volume] in Serum or Plasma [facility] Comment on above: Expected: 11/10/2024, Expires: Start: 11-10-2024 End: 02-09-2025 Iron and Iron binding capacity panel - Serum or Plasma [facility] Comment on above: Expected: 11/10/2024, Expires: Start: 11-10-2024 End: 02-09-2025 Thyrotropin [Units/volume] in Serum or Plasma [facility] Comment on above: Expected: 11/10/2024, Expires: Start: 11-06-2024 End: 11-06-2024 Patient encounter procedure 11/06/2024 1:40 PM EST Office Visit [facility] [place] [address] [facility] [place] [address] Lala Harrison APRN.HOT DOG VENDOR [address] [facility] [address] fatigue Internal Medicine [place] Comment on above: fatigue Start: 11-04-2024 Annual PCP Team Chronic Disease Visit Annual PCP Team Chronic Disease Visit [facility] Start: 11-04-2024 Hepatitis B surface antibody level LDL Cholesterol [facility] Start: 10-05-2024 End: 10-05-2024 Patient encounter procedure 10/05/2024 3:00 PM EST Office Visit Internal Medicine [place] [address] [place] [address] Lala Harrison APRN.HOT DOG VENDOR [address] [place] [address] fatigue [facility] [place] Comment on above: fatigue Start: 09-23-2024 End: 09-23-2024 Patient encounter procedure 09/23/2024 3:00 PM EST Office Visit Pulmonary Medicine [address] [place], [place] [phone] Monserrat Khoury, PA-C [address] [place] [address] 3 MTH F/U ASTHMA Pulmonary Medicine Comment on above: 3 MTH F/U ASTHMA Start: 09-22-2024 End: 12-22-2024 Hemoglobin A1c in Blood HEMOGLOBIN A1C Lab Routine Controlled type 2 diabetes mellitus without complication, with long-term current use of insulin (HCC) Expected: 09/22/2024, Expires: 12/22/2024 [facility] Comment on above: Expected: 09/22/2024, Expires: Start: 09-22-2024 End: 12-22-2024 Lipid 1996 panel - Serum or Plasma LIPID PANEL BASIC Lab Routine Medication management Expected: 09/22/2024, Expires: 12/22/2024 [facility] Comment on above: Expected: 09/22/2024, Expires: Start: 09-22-2024 End: 12-22-2024 Microalbumin/Creatinine [Mass Ratio] in Urine ALBUMIN/CREATININE RATIO, URINE Lab Routine Controlled type 2 diabetes mellitus without complication, with long-term current use of insulin (HCC) Expected: 09/22/2024, Expires: 12/22/2024 [facility] Work Phone: Comment on above: Expected: 09/22/2024, Expires: Start: 08-29-2024 Hemoglobin A1c measurement HbA1C [facility] Start: 08-28-2024 End: 08-28-2024 Patient encounter procedure 08/28/2024 3:00 PM EDT Office Visit Neurology [address] [place], [place] [address] Vicky Ga APRN.HOT DOG VENDOR [address] [place] [address] [facility] Comment on above: [facility]EP [facility] Start: 08-19-2024 End: 08-19-2024 Patient encounter procedure 08/19/2024 6:00 PM EDT Office Visit Internal Medicine [place] [address], [place] [id number] Lala Harrison APRN.HOT DOG VENDOR [address], [place] [address] This is a follow up from last appt with Lala Harrison. [facility] [place] Comment on above: This is a follow up from last appt with Lala Harrison. Start: 08-09-2024 Hepatitis B screening Urine Albumin:Creatinine Ratio [facility] Start: 07-29-2024 End: 07-29-2024 Patient encounter procedure 07/29/2024 6:00 PM EDT Office Visit Internal Medicine [place] [address] [place], [place] [id number] Lala Harrison APRN.HOT DOG VENDOR [address], [place] [id number] This is a follow up from last appt with Lala Harrison. [facility] [place] Comment on above: This is a follow up from last appt with Lala Harrison. Start: 07-12-2024 Annual PCP Team Chronic Disease Visit Annual PCP Team Chronic Disease Visit [facility] Start: 07-12-2024 Hepatitis B surface antibody level LDL Cholesterol [facility] Start: 07-07-2024 End: 07-07-2024 ambulatory 07/07/2024 1:00 PM EDT Education Endocrinology [address] [place] [address] [place] [address] [place] [address] [phone] Endocrinology Comment on above: [phone] Start: 06-28-2024 Covid-19 Vaccine () Covid-19 Vaccine () [facility] Start: 06-28-2024 Covid-19 Vaccine () Covid-19 Vaccine () [facility] Start: 06-28-2024 Influenza vaccination Influenza Vaccine (#1) [facility] Start: 06-26-2024 End: 06-26-2024 Patient encounter procedure 06/26/2024 1:20 PM EDT Office Visit Internal Medicine [place] [address] [facility], [place] [id number] Lala Harrison, DIRECTOR CONSUMER AFFAIRS.HOT DOG VENDOR [address] [facility], [place] [address] 4 wk f/u [facility] [place] Comment on above: 4 wk f/u Start: 06-18-2024 End: 09-17-2024 25-hydroxyvitamin D3 [Mass/volume] in Serum or Plasma VITAMIN D 25 HYDROXY Lab Routine Vitamin D deficiency Expected: 06/18/2024, Expires: 09/17/2024 [facility] Work Phone: Comment on above: Expected: 06/18/2024, Expires: Start: 06-17-2024 End: 06-17-2024 Patient encounter procedure 06/17/2024 5:00 PM EDT Office Visit Internal Medicine [place] [address] [facility], [place] [id number] Lala Harrison, DIRECTOR CONSUMER AFFAIRS.HOT DOG VENDOR [address] [facility], [place] [id number] 4 wk f/u [facility] [place] Comment on above: 4 wk f/u Start: 05-15-2024 End: 05-15-2024 Patient encounter procedure 05/15/2024 8:[address] [facility] Cardiology [address] [place] [address] Chest pain, unspecified type [R07.9]; SOBOE (shortness of breath on exertion) [R06.02 [facility] Cardiology Comment on above: Chest pain, unspecified type [R07.9]; SO MARIELY (shortness of breath on exertion) [R06.02 Start: 05-06-2024 End: 05-06-2024 Patient encounter procedure 05/06/2024 5:00 PM EDT Office Visit Internal Medicine [place] [address] [facility] [place] [address] Lala Harrison APRN.HOT DOG VENDOR [address] [place] [address] 6 month follow up [facility] [place] Comment on above: 6 month follow up Start: 05-04-2024 Hemoglobin A1c measurement HbA1C [facility] Start: 04-29-2024 End: 04-29-2024 Patient encounter procedure 04/29/2024 1:30 PM EDT Office Visit Pulmonary Medicine [address] [place] [address] Monserrat Khoury, PA-C [address] [place] [address] 3 MTH F/U ASTHMA Pulmonary Medicine Comment on above: 3 MTH F/U ASTHMA Start: 04-29-2024 End: 04-29-2024 ambulatory 04/29/2024 1:15 PM EDT Procedure [facility] [address] [place] [address] [facility], Pulm Lab [facility] [address] [place] [address] 3 MTH F/U ASTHMA [facility] Comment on above: 3 MTH F/U ASTHMA Start: 04-27-2024 End: 04-27-2024 Patient encounter procedure 04/27/2024 3:30 PM EDT Office Visit Neurology [address] [place] [address] Vicky Ga, JENN.HOT DOG VENDOR [address] [place] [address] [facility] Neurology Comment on above: SLEEP [facility]A Start: 04-27-2024 Hzv zoster vacc recombinant adjuvanted im njx ZOSTER VACCINE, RECOMBINANT (SHINGRIX) Immunization/Injection Routine Encounter for immunization Expected: 04/27/2024 [facility] Comment on above: Expected: 04/27/2024 Start: 03-30-2024 End: 03-30-2024 Patient encounter procedure 03/30/2024 2:20 PM EDT Office Visit Internal Medicine [place] [address] [place] [address] Jaime Spencer APRN.CENTRAL STERILE TECHNICIAN [address] [place] [address] follow up [facility] [place] Comment on above: follow up Start: 03-20-2024 End: 03-20-2024 Patient encounter procedure 03/20/2024 1:50 PM EDT Office Visit Cardiology [address] [place] [address] Hypoxemia [R09.02] Cardiology Comment on above: Hypoxemia [R09.02] Start: 02-27-2024 End: 05-28-2024 Hemoglobin A1c in Blood [facility] Comment on above: Expected: 02/27/2024, Expires: Start: 02-23-2024 ANNUAL PCP TEAM CHRONIC DISEASE VISIT ANNUAL PCP TEAM CHRONIC DISEASE VISIT [facility] Start: 02-21-2024 Hepatitis B surface antibody level LDL CHOLESTEROL [facility] Start: 01-24-2024 ANNUAL PCP TEAM CHRONIC DISEASE VISIT ANNUAL PCP TEAM CHRONIC DISEASE VISIT [facility] Start: 11-09-2023 End: 01-09-2024 Hemoglobin A1c in Blood HGB A1C Lab Routine Controlled type 2 diabetes mellitus without complication, with long-term current use of insulin (HCC) Expected: 11/09/2023 (Approximate), Expires: 01/09/2024 [facility] Work Phone: Comment on above: Expected: 11/09/2023 (Approximate), Expi res: 01/09/2024 Start: 10-11-2023 Hemoglobin A1c/Hemoglobin.total in Blood HbA1C [facility] Start: 08-22-2023 Hemoglobin A1c/Hemoglobin.total in Blood HBA1C [facility] Start: 08-09-2023 End: 10-09-2023 ALBUMIN/CREAT RATIO RND UR [facility] Work Phone: Comment on above: Expected: 08/09/2023, Expires: 3 Start: 07-31-2023 Glaucoma screening Dilated Retinal Exam [facility] Start: 07-31-2023 Hepatitis C antibody, confirmatory test DILATED RETINAL EXAM [facility] Start: 07-12-2023 End: 09-11-2023 NANCY BY IFA SCREEN [facility] Work Phone: Comment on above: Expected: 07/12/2023, Expires: 3 Start: 07-12-2023 End: 09-11-2023 C reactive protein [Mass/volume] in Serum or Plasma [facility] Work Phone: Comment on above: Expected: 07/12/2023, Expires: 3 Start: 07-12-2023 End: 09-11-2023 Cobalamin (Vitamin B12) [Mass/volume] in Serum or Plasma [facility] Work Phone: Comment on above: Expected: 07/12/2023, Expires: 3 Start: 07-12-2023 End: 09-11-2023 Magnesium [Mass/volume] in Serum or Plasma [facility] Work Phone: Comment on above: Expected: 07/12/2023, Expires: 3 Start: 07-12-2023 End: 09-11-2023 Rheumatoid factor [Units/volume] in Serum or Plasma [facility] Work Phone: Comment on above: Expected: 07/12/2023, Expires: 3 Start: 07-12-2023 End: 09-11-2023 Thyroxine (T4) free [Mass/volume] in Serum or Plasma [facility] Work Phone: Comment on above: Expected: 07/12/2023, Expires: 3 Start: 06-28-2023 Covid-19 Vaccine () Covid-19 Vaccine () [facility] Start: 06-28-2023 Influenza vaccination [facility] Start: 06-27-2023 ANNUAL PCP TEAM CHRONIC DISEASE VISIT ANNUAL PCP TEAM CHRONIC DISEASE VISIT [facility] Start: 06-27-2023 BP CONTROLLED (<130/80) BP CONTROLLED (<130/80) [facility] inic Start: 05-30-2023 ANNUAL PCP TEAM CHRONIC DISEASE VISIT ANNUAL PCP TEAM CHRONIC DISEASE VISIT [facility] Start: 04-10-2023 Hepatitis B surface antibody level LDL CHOLESTEROL [facility] Start: 03-20-2023 Hepatitis C antibody, confirmatory test DILATED RETINAL EXAM [facility] Start: 12-24-2022 End: 02-23-2023 25-hydroxyvitamin D3 [Mass/volume] in Serum or Plasma VITAMIN D 25 HYDROXY Lab Routine Vitamin D deficiency Expected: 12/24/2022, Expires: 02/23/2023 [facility] Work Phone: Comment on above: Expected: 12/24/2022, Expires: 3 Start: 12-24-2022 End: 02-23-2023 Cobalamin (Vitamin B12) [Mass/volume] in Serum or Plasma VITAMIN B12 BLOOD Lab Routine Vitamin B12 deficiency Expected: 12/24/2022, Expires: 02/23/2023 [facility] Work Phone: Comment on above: Expected: 12/24/2022, Expires: 3 Start: 10-10-2022 Hemoglobin A1c/Hemoglobin.total in Blood HBA1C [facility] Start: 10-02-2022 ANNUAL PCP TEAM CHRONIC DISEASE VISIT ANNUAL PCP TEAM CHRONIC DISEASE VISIT [facility] Start: 10-02-2022 BP CONTROLLED (<130/80) BP CONTROLLED (<130/80) [facility] Start: 10-02-2022 Hepatitis B screening URINE ALBUMIN:CREATININE RATIO [facility] Start: 10-02-2022 Hepatitis B surface antibody level LDL CHOLESTEROL [facility] Start: 10-02-2022 PNEUMOCOCCAL (2 - PCV) PNEUMOCOCCAL (2 - PCV) [facility] Start: 10-02-2022 Pneumococcal vaccination Pneumococcal Vaccine (2 - PCV) [facility] Start: 08-30-2022 End: 10-30-2022 Hepatic function 2000 panel - Serum or Plasma HEPATIC FUNCTION PNL Lab Routine Onychomycosis Expected: 08/30/2022, Expires: 10/30/2022 [facility] Work Phone: Comment on above: Expected: 08/30/2022, Expires: 3 Start: 06-28-2022 Influenza vaccination INFLUENZA (#1) [facility] Start: 06-27-2022 End: 08-27-2022 Cobalamin (Vitamin B12) [Mass/volume] in Serum or Plasma VITAMIN B12 BLOOD Lab Routine Vitamin B12 deficiency Expected: 06/27/2022, Expires: 08/27/2022 [facility] Work Phone: Comment on above: Expected: 06/27/2022, Expires: 2 Start: 12-26-2021 COVID-19 VACCINE (3 - Booster for Pfizer series) COVID-19 VACCINE (3 - Booster for Pfizer series) [facility] Start: 12-24-2021 Hemoglobin A1c/Hemoglobin.total in Blood HBA1C [facility] Start: 12-12-2021 Hepatitis C antibody, confirmatory test DILATED RETINAL EXAM [facility] Start: 09-22-2021 COVID-19 VACCINE (3 - Booster for Pfizer series) COVID-19 VACCINE (3 - Booster for Pfizer series) [facility] Start: 09-22-2021 COVID-19 VACCINE (3 - Pfizer series) COVID-19 VACCINE (3 - Pfizer series) [facility] Start: 09-15-2021 BP CONTROLLED (<130/80) BP CONTROLLED (<130/80) [facility] in Start: 2021 Hepatitis B Vaccine (1 of 3 - Risk 3-dose series) Hepatitis B Vaccine (1 of 3 - Risk 3-dose series) [facility] Start: 2021 RSV Vaccine (1 - 1-dose 60+ series) RSV Vaccine (1 - 1-dose 60+ series) [facility] Start: 2021 RSV Vaccine (1 - Risk 60-74 years 1-dose series) RSV Vaccine (1 - Risk 60-74 years 1-dose series) [facility] Start: 2011 SHINGRIX VACCINE (1 of 2) SHINGRIX VACCINE (1 of 2) [facility] Start: 05-20-2007 Mammography [facility] Start: 05-20-2007 Screening for malignant neoplasm of breast Mammogram Screening [facility] Start: 2006 COLOGUARD (FIT-DNA) COLOGUARD (FIT-DNA) [facility] Start: 2006 Colonoscopy COLONOSCOPY [facility] Start: 2006 COLORECTAL CANCER SCREENING COLORECTAL CANCER SCREENING [facility] Start: [address] COLONOGRAPHY [facility] Start: 2006 FECAL OCCULT BLOOD FECAL OCCULT BLOOD [facility] Start: 2006 Screening for malignant neoplasm of colon [facility] Start: 2006 SIGMOIDOSCOPY SIGMOIDOSCOPY [facility] Start: 2003 PAP TESTING PAP TESTING [facility] Start: 1991 HPV TESTING HPV TESTING [facility] Start: 1991 Screening for malignant neoplasm of cervix HPV Testing [facility] Start: 1982 PAP TESTING PAP TESTING [facility] Start: 1982 Screening for malignant neoplasm of cervix [facility] Start: 1971 3 comp foot exam completed DIABETIC FOOT EXAM [facility] Start: 1971 Diabetic foot examination Diabetic Foot Exam [facility] End: 12-24-2023 CBC panel - Blood by Automated count CBC Lab Routine Controlled type 2 diabetes mellitus without complication, with long-term current use of insulin (HCC) Every 6 months for 12 Occurrences starting 12/24/2022 until 12/24/2023 [facility] Work Phone: Comment on above: Every 6 months for 12 Occurrences starti ng 12/24/2022 until 12/24/2023 End: 12-24-2023 Comprehensive metabolic 2000 panel - Serum or Plasma COMP METABOLIC PANEL Lab Routine Controlled type 2 diabetes mellitus without complication, with long-term current use of insulin (HCC) Every 6 months for 12 Occurrences starting 12/24/2022 until 12/24/2023 [facility] Work Phone: Comment on above: Every 6 months for 12 Occurrences starti ng 12/24/2022 until 12/24/2023 End: 05-08-2025 DBT Breast - bilateral screening ALTHEA SCREENING W [facility] Radiology Routine Encounter for screening mammogram for breast cancer 1 Occurrences starting 04/08/2024 until 05/08/2025 [facility] Work Phone: Comment on above: 1 Occurrences starting 04/08/2024 until 05/08/2025 End: 04-08-2026 DBT Breast - bilateral screening ALTHEA SCREENING W [facility] Radiology Routine Encounter for screening mammogram for breast cancer 1 Occurrences starting 03/09/2025 until 04/08/2026 [facility] Work Phone: Comment on above: 1 Occurrences starting 03/09/2025 until 04/08/2026 ECG COMPLETE ECG COMPLETE ECG Routine Chest pain, unspecified type Ordered: 02/27/2024 [facility] Comment on above: Ordered: 02/27/2024 End: 02-26-2025 Echocardiography ECHO Cardiology Routine Hypoxemia 1 Occurrences starting 02/27/2024 until 02/26/2025 [facility] Work Phone: Comment on above: 1 Occurrences starting 02/27/2024 until 02/26/2025 End: 12-24-2023 Hemoglobin A1c in Blood HGB A1C Lab Routine Controlled type 2 diabetes mellitus without complication, with long-term current use of insulin (HCC) Every 3 months for 24 Occurrences starting 12/24/2022 until 12/24/2023 [facility] Work Phone: Comment on above: Every 3 months for 24 Occurrences starti ng 12/24/2022 until 12/24/2023 Hzv zoster vacc recombinant adjuvanted im njx ZOSTER VACCINE, RECOMBINANT (SHINGRIX) Immunization/Injection Routine Encounter for immunization 1 Occurrences starting 02/27/2024 [facility] Work Phone: Comment on above: 1 Occurrences starting 02/27/2024 End: 12-24-2023 Lipid 1996 panel - Serum or Plasma LIPID PANEL BASIC Lab Routine Controlled type 2 diabetes mellitus without complication, with long-term current use of insulin (HCC) Every 6 months for 12 Occurrences starting 12/24/2022 until 12/24/2023 [facility] Work Phone: Comment on above: Every 6 months for 12 Occurrences starti ng 12/24/2022 until 12/24/2023 LUNG DIFFUSION CAPAC ITY (DLCO) LUNG DIFFUSION CAPACITY (DLCO) PFT Routine Shortness of breath 12/06/2023 2:01 PM EST [facility] Work Phone: LUNG VOLUMES LUNG VOLUMES PFT Routine Shortness of breath 12/06/2023 2:01 PM EST [facility] Work Phone: End: 05-30-2024 ALTHEA SCREENING ALTHEA SCREENING Radiology Routine Encounter for screening mammogram for breast cancer 1 Occurrences starting 05/01/2023 until 05/30/2024 [facility] Work Phone: Comment on above: 1 Occurrences starting 05/01/2023 until 05/30/2024 PFIZER-BIONTECH COVI D-19 VACCINE ( SEASON) AGE 12+ YR PFIZER-BIONTECH COVID-19 VACCINE () AGE 12+ YR Immunization/Injection Routine Encounter for immunization 1 Occurrences starting 02/27/2024 [facility] Comment on above: 1 Occurrences starting 02/27/2024 PT PLAN OF CARE CERTIFICATION PT PLAN OF CARE CERTIFICATION Procedures Routine Benign paroxysmal vertigo of both ears Benign paroxysmal po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 Ordered: 05/23/2023 [facility] Work Phone: Comment on above: Ordered: 05/23/2023 End: 06-27-2023 PVR LEG W/EXC [facility] PVR LEG W/EXC [facility] Vascular Lab Routine Mixed hyperlipidemia 1 Occurrences starting 06/27/2022 until 06/27/2023 [facility] Work Phone: Comment on above: 1 Occurrences starting 06/27/2022 until 06/27/2023 RSV VACCINE, BIVALEN T (ABRYSVO) RSV VACCINE, BIVALENT (ABRYSVO) Immunization/Injection Routine Encounter for immunization 1 Occurrences starting 02/27/2024 [facility] Comment on above: 1 Occurrences starting 02/27/2024 End: 06-22-2023 Screening mammography bi 2-view breast inc cad ALTHEA SCREENING Radiology Routine Encounter for screening mammogram for breast cancer 1 Occurrences starting 05/23/2022 until 06/22/2023 [facility] Work Phone: Comment on above: 1 Occurrences starting 05/23/2022 until 06/22/2023 SPIROMETRY - BASELIN E AND POST DILATOR SPIROMETRY - BASELINE AND POST DILATOR PFT Routine Shortness of breath 12/06/2023 2:01 PM EST [facility] Work Phone: End: 02-26-2025 STRESS ECHO DOBUTAMINE STRESS ECHO DOBUTAMINE Cardiology Routine Chest pain, unspecified type SOBOE (shortness of breath on exertion) 1 Occurrences starting 02/27/2024 until 02/26/2025 [facility] Comment on above: 1 Occurrences starting 02/27/2024 until 02/26/2025 End: 12-24-2023 Thyrotropin [Units/volume] in Serum or Plasma TSH BLD Lab Routine Controlled type 2 diabetes mellitus without complication, with long-term current use of insulin (HCC) Every 3 months for 24 Occurrences starting 12/24/2022 until 12/24/2023 [facility] Work Phone: Comment on above: Every 3 months for 24 Occurrences starti ng 12/24/2022 until 12/24/2023 End: 02-22-2024 US EXTREMITY MASS/FLUID COLLECTION LEFT US EXTREMITY MASS/FLUID COLLECTION LEFT Radiology Routine Subcutaneous nodules 1 Occurrences starting 01/23/2023 until 02/22/2024 [facility] Work Phone: Comment on above: 1 Occurrences starting 01/23/2023 until 02/22/[address] [facility] c [facility] Immunizations Immunization Date Immunization Notes Care Provider Drea ohara 08-09-2023 pneumococcal Conjuga te, unspecified formulation Jaime Spencer DIRECTOR CONSUMER AFFAIRS.CENTRAL STERILE TECHNICIAN Work Phone: [facility] Work Phone: 08-09-2023 influenza, injectabl e, quadrivalent, contains preservative Jaime Spencer DIRECTOR CONSUMER AFFAIRS.CENTRAL STERILE TECHNICIAN Work Phone: [facility] Work Phone: 08-09-2023 pneumococcal (PCV20) vaccine, 20 valent (PREVNAR 20) Jaime Sweets DIRECTOR CONSUMER AFFAIRS.CENTRAL STERILE TECHNICIAN Work Phone: [facility] Work Phone: 08-09-2023 influenza virus vacc ine, unspecified formulation Jaime Spencer DIRECTOR CONSUMER AFFAIRS.CENTRAL STERILE TECHNICIAN Work Phone: [facility] 10-02-2021 influenza, injectabl e, quadrivalent, contains preservative Lala Older DIRECTOR CONSUMER AFFAIRS.HOT DOG VENDOR Work Phone: [facility] 10-02-2021 pneumococcal polysaccharide vaccine, 23 valent Lala Older DIRECTOR CONSUMER AFFAIRS.HOT DOG VENDOR Work Phone: [facility] 10-02-2021 tetanus toxoid, redu edith diphtheria toxoid, and acellular pertussis vaccine, adsorbed Lala Older DIRECTOR CONSUMER AFFAIRS.HOT DOG VENDOR Work Phone: [facility] 10-02-2021 influenza virus vacc ine, unspecified formulation Lala Older DIRECTOR CONSUMER AFFAIRS.HOT DOG VENDOR Work Phone: [facility] 06-23-2021 COVID-19 vaccine, ag e 12+ yr ([employer] - PURPLE TOP) Lala Older DIRECTOR CONSUMER AFFAIRS.HOT DOG VENDOR Work Phone: [facility] 09-15-2020 influenza, injectabl e, quadrivalent, contains preservative Lala Older DIRECTOR CONSUMER AFFAIRS.HOT DOG VENDOR Work Phone: [facility] 11-22-2009 novel influenza-H1N1 -09, preservative-free, injectable Lala Harrison DIRECTOR CONSUMER AFFAIRS.HOT DOG VENDOR Work Phone: [facility] Payers Date Payer Category Payer Self-pay 2022 Medicaid [id number] 2013 Medicaid [employer] [facility] [facility] [place] [id number] 2013-Present [phone] [address] [place] [address] Medicaid [id number] 2013 Medicaid [id number] 1961 Unknown [id number] Unknown [id number] Unknown [id number] Unknown [id number] Social History Date Type Detail Facility Start: 12-07-2020 End: 07-09-2023 Tobacco smoking status NHIS Never smoked tobacco [facility] Start: 10-02-2021 End: 02-22-2023 Alcohol intake Current non-drinker of alcohol (finding) [facility] Start: 12-07-2020 History SDOH Alcohol Frequency 1 [facility] Start: 12-07-2020 History SDOH Social Connections Phone 2 [facility] Start: 12-07-2020 History SDOH Social Connections Living 5 [facility] Start: 12-07-2020 History SDOH Physica l Activity DPW 0 [facility] Start: 12-07-2020 History SDOH Stress 4 [facility] Start: 12-07-2020 Education 12 [facility] Start: 1960 Sex Assigned At Not on file [facility] Start: 05-12-2022 End: 07-10-2022 Exposure to SARS-CoV-2 (event) Not sure [facility] Start: 05-28-2022 History SDOH Housing Unable to Pay 3 [facility] Start: 12-07-2020 End: 01-23-2023 Tobacco use and exposure Smokeless tobacco non-user [facility] Work Phone: Start: 1960 Sex Assigned At Female C [facility] Start: 05-28-2022 End: 03-06-2023 History of Social function [facility] Start: 05-28-2022 End: 03-06-2023 Social connection and isolation panel [facility] Start: 09-28-2012 End: 08-17-2025 In a typical week, how many times do you talk on the telephone with family, friends, or neighbors? Patient refused [facility] Are you now , , , , never or living with a partner? Refused [facility] (I/We) worried desire er (my/our) food would run out before (I/we) got money to buy more. DK or Refused [facility] Start: 01-07-2023 Gender identity Identifies as female gender (finding) [facility] Start: 01-07-2023 Sexual orientation Heterosexual (fin ding) [facility] Do you feel stress - tense, restless, nervous, or anxious, or unable to sleep at night because your mind is troubled all the time - these days [OSQ] Rather much [facility] Tobacco smoking status [facility] Start: 01-24-2024 End: 04-16-2025 Alcohol intake Ex-drinker (finding) [facility] Start: 08-31-2020 Sex Female (finding) [facility] Medical Equipment Procedure Code Equipment Code Equipment Original Text Equipment Identifier Dates [id number], [id number], [id number], [id number], [id number], [id number], [id number], [id number], [id number], [id number], [id number], [id number], [id number], [id number], [id number] Start: 07-28-2021 End: 03-30-2025 Comment on above: [...] Functional Status Date Assessment Result Facility 08-17-2025 [facility] 08-17-2025 Functional Status Independent [facility] 07-15-2023 Functional Status ID band on, Allergy Band on, Call device within reach, Bed in low position, Wheels locked, Upper/Half-Length side-rails up, Phone within reach, personal items within reach, Bedside Cart Locked, Visitor at bedside [facility] 06-29-2023 Functional Status Independent [facility] 06-29-2023 Functional Status Standard Safet y ID band on, Allergy Band on, Call device within reach, Bed in low position, Safety level maintained [facility] 06-27-2022 Are you deaf, or do you have serious difficulty hearing No 06/27/2022 5:36 PM Monik Daniel MD [facility] 06-27-2022 Are you blind, or do you have serious difficulty seeing, even when wearing glasses No 06/27/2022 5:36 PM Monik Daniel MD No [facility] 06-27-2022 Do you have serious difficulty walking or climbing stairs No 06/27/2022 5:36 PM Monik Daniel MD [facility] 06-27-2022 Do you have difficul ty dressing or bathing No 06/27/2022 5:36 PM Monik Daniel MD [facility] 06-27-2022 Because of a physica l, mental, or emotional condition, do you have difficulty doing errands alone such as visiting a physician's office or shopping No 06/27/2022 5:36 PM Monik Daniel MD No [facility] Mental Status Date Assessment Result Facility 08-17-2025 Mental Status Orientation Oriented x 4 [facility] 07-15-2023 Mental Status Oriented x 4 [facility] 06-29-2023 Mental Status Orientation Oriented x 4 [facility] 06-29-2023 Mental Status [facility] 06-27-2022 Because of a physica l, mental, or emotional condition, do you have serious difficulty concentrating, remembering, or making decisions No 06/27/2022 5:36 PM Monik Daniel MD No [facility] Clinical Notes 10-15-2006 to 09-03-2025 Note Date & Type Note Facility 09-03-2025 Note HNO ID: [id number] Author: LALA HARRISON APRN.HOT DOG VENDOR Service: ? Author Type: Nurse Practitioner Type: Progress Notes Filed: 09/06/2025 12:56 Note Text: CC: Patient presents with: Recheck: BP follow up HPI Irma Stewart is a 65 year old female who presents today for BP follow up. Recently had metoprolol increased to better manage this. Recording using Curate[employer]Us software for draft documentation of the visit was discussed with the patient/authorized accounts receivable representative; all questions welcomed and answered. Patient/authorized accounts receivable representative agreed to proceed Irma Stewart is [...] vaginal ALLERGIES Betadine [Povidone-Iodine], Glimepiride, Haldol [Haloperidol], [place], Metformin, Neurontin [Gabapentin], Penicillins, Risperidone, Tylenol [Acetaminophen], [...] 1 application to (more content not included)... [facility] 08-25-2025 Note HNO ID: [id number] Author: MONIK HACKETT MD Service: ? Author [...] strip DULoxetine (CYMBALTA) 40 mg cpDR Insulin Lowell, Disposable, (BD ULTRAFINE III MINI PEN) 31 [...] fatigue, (+) un (more content not included)... [facility] 08-25-2025 Note HNO ID: [id number] Author: ELISA FERRER RT(R) Service: ? Author Type: Licensed Massage Therapist Type: Progress Notes Filed: 08/25/2025 10:58 Note [...] PATIENT PRESENTS WITH AN IMPLANTABLE OR ATTACHED WOMEN'S MINISTRY DIRECTOR: No RADIOLOGY DEPARTMENT: General X-ray: Exam(s) Completed: Spine X-Ray(s): Lumbar AP / LAT / L5-S1 PERIPHERAL IV DATA: Not applicable SIGNED BY: RT Deven(R) August 25, 2025 10:37 AM [facility] 08-20-2025 Note HNO ID: [id number] Author: LALA HARRISON APRN.HOT DOG VENDOR Service: ? Author Type: Nurse Practitioner Type: Progress Notes Filed: 08/20/2025 11:01 Note Text: CC: Patient presents with: Recheck HPI Irma Stewart is a 65 year old female who presents today for multiple concerns. Is accompanied by significant other. Recording using [employer] software for draft documentation of the visit was discussed with the patient/authorized accounts receivable representative; all questions welcomed and answered. Patient/authorized accounts receivable representative agreed to proceed Irma Stewart is a 65-year-old female with a history of HTN, schizophrenia, anxiety, and panic disorder, presenting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 [facility]10-24-2024 Miscellaneous Notes* Telephone Encounter - Inocencia Lowery [...] 20, 2024 1:29 PM documented in this encounterElyria Memorial Hospital10-16-2024 Telephone encounter Note * Telephone Encounter - [...] Please advise. Thank you. Nidia Silverio LPN. [facility]10-16-2024 Miscellaneous Notes* Telephone Encounter - Nidia Silverio [...] you. Nidia Silverio LPN. documented in this encounterElyria Memorial Hospital10-16-2024 Telephone encounter Note * Telephone Encounter - [...] Please advise. Thank you. Nidia Silverio LPN. [facility]10-16-2024 Miscellaneous Notes* Telephone Encounter - Nidia Silverio [...] you. Nidia Silverio LPN. documented in this encounterElyria [facility] Hospital10-16-2024 Telephone encounter Note * Telephone Encounter - [...] Please advise. Thank you. Nidia Silverio LPN. [facility]10-16-2024 Miscellaneous Notes* Telephone Encounter - Nidia Silverio [...] you. Nidia Silverio LPN. documented in this encounterElyria [facility] Hospital08-30-2024 Telephone encounter Note * Telephone Encounter - [...] Pablo LPN June 26, 2024 2:31 PM [facility]08-30-2024 Miscellaneous Notes* Telephone Encounter - Mary Lou Pabol LPN - 06/26/2024 2:12 PM EDT Patient [...] 26, 2024 2:31 PM documented in this encounterElyria Memorial Hospital08-27-2024 Telephone encounter Note * Telephone Encounter - Romi Pandya LPN - 06/23/2024 10:47 AM EDT Spoke with pt and information listed below given. Pt verbalizes understanding. Romi Pandya LPN [facility]08-27-2024 Miscellaneous Notes* Telephone Encounter - Romi Pandya LPN - 06/23/2024 10:47 AM EDT Spoke with pt and information listed below given. Pt verbalizes understanding. Romi Pandya LPN * Telephone Encounter - Lala Harrison APRN.CNP - 06/18/2024 2:34 PM EDT Due for vit d level. Order is placed. Thank you Lala Harrison APRN.HOT DOG VENDOR * Telephone Encounter - Nidia Silverio LPN [...] TAKE 1 TABLET BY MOUTH TWICE WEEKLY [id number], THEN DECREASE TO 1 TABLET WEEKLY DIRECTED. Date of last office visit in primary care: 05/06/2024 Date of next office visit in primary care: 06/26/2024 Please advise. Thank you. Nidia Silverio LPN. documented in this encounterElyria [facility] Hospital08-22-2024 Telephone encounter Note * Telephone Encounter - Lala Harrison APRN.CNP - 06/18/2024 2:34 PM EDT Due for vit d level. Order is placed. Thank you Lala Harrison APRN.CNP [facility]08-22-2024 Telephone encounter Note* Telephone Encounter - Nidia [...] TAKE 1 TABLET BY MOUTH TWICE WEEKLY [id number], THEN DECREASE TO 1 TABLET WEEKLY DIRECTED. Date of last office visit in primary care: 05/06/2024 Date of next office visit in primary care: 06/26/2024 Please advise. Thank you. Nidia Silverio LPN. [facility]08-16-2024 Telephone encounter Note* Telephone Encounter - Yudith Rodriguez LPN - 06/12/2024 9:50 AM EDT Patient [employer] message requesting the following refill Refill(s) Requested: Requested Prescriptions Pending Prescriptions Disp Refills insulin glargine-yfgn (SEMGLEE,INSULIN GLARG-YFGN,PEN) 100 unit/mL (3 mL) insulin pen 15 mL 3 ALLERGIES Allergen Reactions Betadine [Povidone-* Unknown Glimepiride Intolerance Diarrhea Haldol [Haloperidol] Other: See Comments Headache/hallucinations [place] Other: See Comments Hallucinations Metformin Diarrhea Neurontin [Gabapent* Intolerance felt poorly Penicillins Unknown Okay to take amoxil Tylenol [Acetaminop* Intolerance Victoza [Liraglutid* GI Upset (cell) Last Office Visit Date: 05/06/2024 Last [facility] Visit: Visit date not found Future Appointment: 06/17/2024 The patients preferred pharmacy has been captured for this encounter? yes Request is for script(s) to be escript to pharmacy. Yudith Rodriguez LPN [facility]08-16-2024 Miscellaneous Notes* Telephone Encounter - Yudith Rodriguez LPN - 06/12/2024 9:50 AM EDT Patient [employer] message requesting the following refill Refill(s) Requested: Requested Prescriptions Pending Prescriptions Disp Refills insulin glargine-yfgn (SEMGLEE,INSULIN GLARG-YFGN,PEN) 100 unit/mL (3 mL) insulin pen 15 mL 3 ALLERGIES Allergen Reactions Betadine [Povidone-* Unknown Glimepiride Intolerance Diarrhea Haldol [Haloperidol] Other: See Comments Headache/hallucinations [place] Other: See Comments Hallucinations Metformin Diarrhea Neurontin [Gabapent* Intolerance felt poorly Penicillins Unknown Okay to take amoxil Tylenol [Acetaminop* Intolerance Victoza [Liraglutid* GI Upset (cell) Last Office Visit Date: 05/06/2024 Last [facility] Health Visit: Visit date not found Future Appointment: 06/17/2024 The patients preferred pharmacy has been captured for this encounter? yes Request is for script(s) to be escript to pharmacy. Yudith Rodriguez LPN documented in this encounterElyria [facility]08-05-2024 Telephone encounter Note * Telephone Encounter - [...] Heydi Braswell LPN. Rx needs sent to [facility]. [facility] won't give refill. [facility]08-05-2024 Miscellaneous Notes* Telephone Encounter - Heydi Bhandari [...] Heydi Braswell LPN. Rx needs sent to [facility]. [facility] won't give refill. documented in this encounterElyria Memorial Hospital07-12-2024 Telephone encounter Note * Telephone Encounter - Amira Fisher LPN - 05/08/2024 12:13 PM EDT Patient notified of providers message and verbalized understanding. [facility]07-12-2024 Miscellaneous Notes* Telephone Encounter - Amira Fisher [...] and send in today. documented in this encounterElyria [facility] Hospital07-12-2024 Telephone encounter Note * Telephone Encounter - [...] Will update note and send in today. [place] [address]-10-2024 Instructions* Patient Instructions* Lala Harrison APRN.CNP - 05/06/2024 5:33 PM EDT Check blood sugar fasting first thing when waking up and 2 hours after a meal documented in this encounterElyria Memorial Hospital07-10-2024 History of Present illness Narrative* Lala Harrison [...] vaginal ALLERGIES Betadine [Povidone-Iodine], Glimepiride, Haldol [Haloperidol], [place], Metformin, Neurontin [Gabapentin], Penicillins, Tylenol [Acetaminophen], and [...] Take 1 tablet by mouth twice weekly [id number], then decrease to 1 tablet weekly. oxybutynin [...] day. Takes blood sugar twice daily) Insulin [place]ell, Disposable, (BD ULTRAFINE III MINI PEN) 31 gauge x 3/16" 1 Each two times a day. rosuvastatin (CRESTOR) 10 mg tablet Take 1 tablet by mouth daily at bedtime. pregabalin (LYRICA) 100 mg capsule Take 1 capsule by mouth two times a day for 180 days. To be taken with 75 mg capsule to total 175 mg twice daily. [facility] Use as needed to monitor oxygen [...] plan. Lala Harrison APRN.CNP documented in this encounterElyria Memorial Hospital07-03-2024 Instructions* Patient Instructions* Ashley Venegas APRN.CNP - 04/29/2024 2:22 PM [...] help with weight loss. documented in this encounterElyria Memorial Hospital07-03-2024 Procedure note* Sary Servin RPFT - 04/29/2024 2:01 PM EDT FENO:Patient was unable to perform test to obtain a result. Several attempts made. [address]03-2024 Procedure note* Sary Servin RPFT - 04/29/2024 2:01 PM EDT FENO:Patient was unable to perform test to obtain a result. Several attempts made. documented in this encounterElyria Memorial Hospital07-03-2024 Nurse Note* Cora Betts LPN - 04/29/2024 1:54 PM EDT Intake information documented in the prior visit with ALESSANDRO Velasquez today. [facility]07-03-2024 Nurse Note* Cora Betts LPN - 04/29/2024 1:54 PM EDT Intake information documented in the prior visit with ALESSANDRO Velasquez today. documented in [place] encounterTony[place] [address] History of Present illness Narrative* Click, Ashley Narayan APRN.HOT DOG VENDOR - 04/29/2024 1:30 PM EDT Images from [...] Comment:Diarrhea Haldol [Haloperidol] Other: See Comments Comment:Headache/hallucinations [place] Other: See Comments Comment:Hallucinations Metformin Diarrhea Neurontin [...] Take 1 tablet by mouth twice weekly [id number], then decrease to 1 tablet weekly. ferrous sulfate 325 mg (65 mg iron) tablet Take 1 tablet by mouth two times a day with meals. Insulin Lowell (Disposable) 31 gauge x 3/16" Commonly known [...] total 175 mg twice daily. PULSE OXIMETER [facility] Use as needed to monitor oxygen level [...] 04/29/2024 Time: 3:53 PM documented in this encounterElyria [facility] Hospital07-03-2024 Telephone encounter Note * Telephone Encounter - Lala Harrison APRN.CNP - 04/29/2024 10:58 AM EDT PDMP website checked and validated. All prescriptions have been APPROPRIATELY filled. No suspiciousactivity was identified. 04/29/2024 by Lala Harrison APRN.CNP [facility]07-03-2024 Miscellaneous Notes* Telephone Encounter - Lala Harrison APRN.CNP - 04/29/2024 10:58 AM EDT PDMP website checked and validated. All prescriptions have been APPROPRIATELY filled. No suspiciousactivity was identified. 04/29/2024 by Lala Harrison APRN.HOT DOG VENDOR * Telephone Encounter - Anupama Schwartz LPN [...] 28, 2024 7:16 AM documented in this encounterElyria [facility] Hospital07-02-2024 Telephone encounter Note * Telephone Encounter - [...] Schwartz LPN April 28, 2024 7:17 AM [facility]07-02-2024 Miscellaneous Notes* Telephone Encounter - Anupama Schwartz [...] 28, 2024 7:17 AM documented in this encounterElyria [facility] Hospital07-02-2024 Telephone encounter Note * Telephone Encounter - [...] Schwartz LPN April 28, 2024 7:16 AM [facility]06-13-2024 Telephone encounter Note* Telephone Encounter - Brea [...] FRANCISCO Broderick April 09, 2024 7:41 AM [facility]06-13-2024 Miscellaneous Notes* Telephone Encounter - Brea Root [...] 09, 2024 7:41 AM documented in this encounterElyria Memorial Hospital05-21-2024 Telephone encounter Note * Telephone Encounter - Lana Mckenzie LPN - 03/17/2024 4:19 PM EDT Patient aware. Patient is going to have phone number change and will call clinic with new number. Lana Mckenzie LPN [place] [address]-21-2024 Miscellaneous Notes* Telephone Encounter - Lana Mckenzie [...] 03/17/2024 8:39 AM EDT Denial rec'd from [facility] for fezlinetant. It doesn't say what is covered. Reviewed discount cards. That would be around 500$ per month. * Telephone Encounter - Camila Lees MA - 2024 10:47 AM EDT Prior Authorization has been completed online at [employer] for Pily, will await response. [id number]-BTERJJQL Please keep encounter open until final decision has been received and documented from insurance company. Camila Lees MA documented in this encounterElyria Memorial Hospital05-21-2024 Telephone encounter Note * Telephone Encounter - Jaime Spencer APRN.CNS - 03/17/2024 4:11 PM EDT ok [facility]05-21-2024 Telephone encounter Note* Telephone Encounter - Amira Fisher LPN - 03/17/2024 3:04 PM EDT Spoke with patient and she would like to try the low-dose paroxetine to see if that would help. Shedoesn't want to try the gabapentin due to side effects. Also patient has requested a refill on the Lantus. Prescription is pending. [facility]05-21-2024 Telephone encounter Note* Telephone Encounter - Jaime Spencer APRN.CNS - 03/17/2024 1:52 PM EDT Please let Irma Stewart know. Can consider low-dose paroxetine or gabapentin for hot flashes if she would like. [facility]05-21-2024 Telephone encounter Note* Telephone Encounter - Chloe Booker LPN - 03/17/2024 8:39 AM EDT Denial rec'd from [facility] for libbydaniel. It doesn't say what is covered. Reviewed discount cards. That would be around 500$ per month. [facility]05-20-2024 Telephone encounter Note* Telephone Encounter - Camila Lees MA - 2024 10:47 AM EDT Prior Authorization has been completed online at [employer] for Pily, will await response. BRAVO-BTERJJQL Please keep encounter open until final decision has been received and documented from insurance company. Camila Lees MA [facility]05-17-2024 Telephone encounter Note* Telephone Encounter - Jaime Spencer APRN.CNS - 03/13/2024 7:29 AM EDT Yes rx sent. [facility]05-17-2024 Miscellaneous Notes* Telephone Encounter - Jaime Spencer [...] PM EDT ----- Message from Jaime Spencer APRN.CENTRAL STERILE TECHNICIAN sent at 03/12/2024 4:37 PM EDT ----- CBC CMP TSH are in acceptable range. A1c shows decreased control compared to previous. Check to seeif taking medications for DM as ordered. documented in this encounterElyria Memorial Hospital05-16-2024 Telephone encounter Note * Telephone Encounter - [...] and she will start taking it again. [facility]05-16-2024 Telephone encounter Note* Telephone Encounter - Amira Fisher LPN - 03/12/2024 4:50 PM EDT ----- Message from Jaime Spencer APRN.CENTRAL STERILE TECHNICIAN sent at 03/12/2024 4:37 PM EDT ----- CBC CMP TSH are in acceptable range. A1c shows decreased control compared to previous. Check to seeif taking medications for DM as ordered. [facility]05-02-2024 History of Present illness Narrative* Jaime Spencer APRN.CENTRAL STERILE TECHNICIAN - 02/27/2024 2:20 PM EDT SUBJECTIVE: Diabetic [...] has been seen by Dr. Camila Johns warp preparer. Ordered albuterol sulfate and budesonide/formoterol fumarate. Noted [...] Diarrhea Haldol [Haloperidol] Other: See Comments Headache/hallucinations [place] Other: See Comments Hallucinations Metformin Diarrhea Neurontin [Gabapent* Intolerance felt poorly Penicillins Unknown Okay to take amoxil Tylenol [Acetaminop* Intolerance Victoza [Liraglutid* GI Upset Medications ergocalciferol 50,000 unit capsule (VITAMIN D2, DRISDOL) Take 1 capsule by mouth one time a week. TO BE TAKEN ORALLY DIRECTED. Take 1 tablet by mouth twice weekly [id number], then decrease to 1 tablet weekly. oxybutynin [...] day. Takes blood sugar twice daily) Insulin Lowell, Disposable, (BD ULTRAFINE III MINI PEN) 31 [...] Abs Lymph 1.00 - 4.00 k/uL 1.52 [place]% % 6.7 Abs [place] <0.87 k/uL 0.28 [place]% % 2.2 Abs [...] (SHINGRIX) - RSV VACCINE, BIVALENT (ABRYSVO) - PFIZER-CGA [employer]ment COVID-19 VACCINE (2022- [place]) AGE 12+ YR Reschedule with rheumatology, previously NANCY positive. 1 mo follow up CAMPOS Barcenas APRN.CNS Medical Decision Making: Problems: Moderate: 2+ stable chronic illnesses Data: Unique test(s) ordered: 2 Risk: Moderate: Drug management Medical Decision Making Level: 4 - Moderate documented in this encounterElyria [facility] Hospital04-22-2024 Telephone encounter Note * Telephone Encounter - [...] does not always hear her phone ringing. [facility]04-22-2024 Miscellaneous Notes* Telephone Encounter - Mary Lou [...] 2021. Romi Pandya LPN documented in this encounterElyria Memorial Hospital04-19-2024 Miscellaneous Notes* Telephone Encounter - Romi Pandya [...] you. Anupama Andrade LPN. documented in this encounterElyria Memorial Hospital04-12-2024 Miscellaneous Notes* Telephone Encounter - Anupama Andrade [...] you. Anupama Andrade LPN. documented in this encounterElyria Memorial Hospital04-11-2024 Telephone encounter Note * Telephone Encounter - Romi Pandya LPN - 02/06/2024 3:18 PM EDT Left a message for pt to call the office. Records show medication be last prescribed in 2021. Romi Pandya LPN [facility]03-12-2024 Miscellaneous Notes* Telephone Encounter - Anupama Andrade [...] you. Anupama Andrade LPN. documented in this encounterElyria Memorial Hospital03-12-2024 Miscellaneous Notes* Telephone Encounter - Kelsi Mcmullen [...] you. Kelsi Mcmullen MA. documented in this encounterElyria Memorial Hospital02-15-2024 Miscellaneous Notes* Telephone Encounter - Rhona Lai RN - 12/12/2023 1:07 PM EST Patient notified of message below. Patient voiced understanding. Rhona Lai RN * Telephone Encounter - Romi Pandya LPN - 12/11/2023 10:34 AM EST Left a message for pt to call the office and ask to speak to a nurse. Romi Pandya LPN * Telephone Encounter - Lala Harrison APRN.HOT DOG VENDOR - 12/11/2023 9:13 AM EST Please let patient know this is now considered a controlled substance which is why her previous provider probably had more ability to prescriber more refills then we are able to now. Thank you Lala Harrison APRN.HOT DOG VENDOR PDMP website checked and validated. All prescriptions [...] you. Anupama Andrade LPN. documented in this encounterElyria [facility] Hospital02-15-2024 Miscellaneous Notes* Telephone Encounter - Rhona Lai [...] to pulmonology for further evaluation Yasmine Martinez APRN.HOT DOG VENDOR documented in this encounterElyria Memorial Hospital02-14-2024 Miscellaneous Notes* Telephone Encounter - Anupama Andrade LPN - 12/11/2023 8:44 AM EST Patient has been identified by name and date of : No Patient phones for refill(s): Requested Prescriptions Pending Prescriptions Disp Refills Insulin [place]ell, Disposable, (BD ULTRAFINE III MINI PEN) 31 gauge x 3/16" 100 Each 3 Si Each two times a day. Date of last office visit in primary care: 11/04/2023 Date of next office visit in primary care: 12/10/2023 Please advise. Thank you. Anupama Andrade LPN. documented in this encounterElyria [facility] Hospital02-14-2024 Miscellaneous Notes* Telephone Encounter - Brea Root [...] Thank you. FRANCISCO Broderick. documented in this encounterElyria Memorial Hospital02-12-2024 Miscellaneous Notes* Telephone Encounter - Christoph Mckeon Ma - 12/09/2023 11:13 AM EST Pt notified via [employer]. * Telephone Encounter - Yasmine Martinez APRN.CNP - 12/09/2023 7:29 AM EST Please fax copy of my office note from 11/04, oxygen order and pulse ox with ambulation results to [facility]. Please let patient know we are faxing the order Yasmine Martinez APRN.HOT DOG VENDOR documented in this encounterElyria Memorial Hospital02-12-2024 Miscellaneous Notes* Telephone Encounter - Anupama Andrade [...] you. Anupama Andrade LPN. documented in this encounterElyria Memorial Hospital02-09-2024 Procedure note* Sary Servin RPFT - 12/06/2023 [...] TIME: 3:09 PM Comment: documented in this encounterElyria Memorial Hospital02-09-2024 History of Present illness Narrative* Sary Servin RPFT - 12/06/2023 2:49 PM EST PULM FUNCTION SMARTBLOCK: Provider: Yasmine Martinez APRN.HOT DOG VENDOR Assisting Tech: Sary Servin RPFT Spirometry w/BD: 1 DLCO: 1 LV - Box: 1 Oximetry - Ambulation: 1 documented in this encounterElyria Memorial Hospital02-05-2024 Miscellaneous Notes* Telephone Encounter - Inocencia Lowery RN - 12/02/2023 4:44 PM EST Dusty from [facility] calling to say patient needs further testing [...] & recent PSG study results faxed to: [employer] [phone]. Marc Ledezma MA * Telephone Encounter - [...] but plans to reschedule. documented in this encounterElyria Memorial Hospital01-29-2024 History of Present illness Narrative* Yumiko [place] [...] PATIENT PRESENTS WITH AN IMPLANTABLE OR ATTACHED WOMEN'S MINISTRY DIRECTOR: No RADIOLOGY DEPARTMENT: General X-ray: Exam(s) Completed: Upper Extremity X- Ray(s): Fingers/Thumb, right PERIPHERAL IV DATA: Not applicable SIGNED BY: RT Rafa(R) November 25, 2023 7:04 PM documented in this encounterE[facility]01-[facility]24 History of Present illness Narrative* Carine Scott [...] 04, 2023 2:22 PM documented in this [facility]12-08-2023 Miscellaneous Notes* Telephone Encounter - Christoph Mckeon Ma - 10/04/2023 12:15 PM EST ROSALIA: 08/09/2023 Last refill: 08/09/2023 QTY: 60 Refills: 1 documented in this [facility]12-08-2023 Miscellaneous Notes* Telephone Encounter - Christoph Mckeon Ma - 10/04/2023 12:12 PM EST ROSALIA: 08/09/2023 Last refill: 08/13/2023 QTY: 60 Refills: 1 documented in this [facility]12-06-2023 Miscellaneous Notes* Telephone Encounter - Lisa Helm Ma - 10/02/2023 6:25 PM EST Order faxed. * Telephone Encounter - Lala Harrison APRN.HOT DOG VENDOR - 10/02/2023 6:20 PM EST Orders placed. Please fax pulse ox order as requested. Thank you Lala Harrison APRN.HOT DOG VENDOR * Telephone Encounter - Kelsi Mcmullen MA - 10/01/2023 12:56 PM EST Orders pended documented in this encounterEly[facility]12-05-2023 Miscellaneous Notes* Telephone Encounter - Nidia Silverio LPN - 10/01/2023 12:54 PM EST [facility], Patient has refills of Alcohol swabs, Pharmacy will get ready for Patient to pickup. Nidia Silverio LPN documented in this encounterElyria [facility]12-05-2023 Miscellaneous Notes* Telephone Encounter - Nidia Silverio LPN - 10/01/2023 12:53 PM EST [facility]oke to [facility], Patient has refills of BD Ultrafine pen needles 31x3/16. Pharmacy will get ready for Patient to pickup. Nidia Silverio LPN documented in this encounterElyria [facility]12-05-2023 Miscellaneous Notes* Telephone Encounter - Nidia Silverio [...] you. Nidia Silverio LPN. documented in this encounterElyria [facility] Hospital12-05-2023 Miscellaneous Notes* Telephone Encounter - Nidia Silverio [...] you. Nidia Silverio LPN. documented in this encounterElyria [facility] Hospital11-06-2023 Miscellaneous Notes* Telephone Encounter - Tanya Bianchi [...] you, Constance Humphries PharmD Primary Care Clinical Circuit Walker 08/30/2023 1:37 PM * Telephone Encounter - Constance Humphries RPh - 08/27/2023 3:42 PM EDT Called patient for scheduled pharmacy phone follow up; unable to reach after multiple attempts. Left VM with phone number to reschedule. Constance Humphries PharmD Primary Care Clinical Circuit Walker documented in this encounterElyria [facility] Hospital10-26-2023 Miscellaneous Notes* Telephone Encounter - Iveth Nye [...] you. Iveth Nye LPN. documented in this encounterElyria [facility] Hospital10-17-2023 Miscellaneous Notes* Telephone Encounter - Jaime Spencer [...] encounter has been addressed. documented in this encounterElyria [facility] Hospital10-17-2023 Telephone encounter Note * Telephone Encounter - [...] applicable Please advise. Thank you. Anupama Andrade. [facility]10-[facility]23 Miscellaneous Notes* Telephone Encounter - Anupama Andrade [...] and advise. Hema Mcclelland documented in this encounterElyria [facility] Hospital10-17-2023 Telephone encounter Note * Telephone Encounter - [...] daily Please review and advise. Hema Mcclelland [facility]10-13-2023 Instructions* Patient Instructions* Jaime Spencer APRN.CNS - [...] Continue on with iron documented in this encounterElyria [facility] Hospital10-13-2023 History of Present illness Narrative* Jaime Spencer [...] visit notes indicate she has been in [place] ER for severe pain. Reported referred to [...] diagnosed with fibromyalgia by Dr. Garcia at [facility]. Reports she was referred to Dr. Conrad Springer, plans to see him at [facility] in [facility]. States he is a fibromyalgia specialist. [...] Diarrhea Haldol [Haloperidol] Other: See Comments Headache/hallucinations [place] Other: See Comments Hallucinations Metformin Diarrhea Neurontin [...] Take 1 tablet by mouth twice weekly f1rlnwo, then decrease to 1 tablet weekly. ferrous sulfate 325 mg (65 mg iron) tablet Take 1 tablet by mouth two times a day with meals. furosemide (LASIX) 20 mg tablet Take 1 tablet by mouth once daily. Alternate 2 pills with 1 pill daily Insulin Lowell, Disposable, (BD ULTRAFINE III MINI PEN) 31 [...] Abs Lymph 1.00 - 4.00 k/uL 1.52 Wasatch% % 6.7 Abs [place] <0.87 k/uL 0.28 Eosin% % 2.2 Abs [...] Level: 4 - Moderate documented in this encounterElyria [facility] Hospital09-18-2023 Miscellaneous Notes* Telephone Encounter - Romi Pandya LPN - 07/15/2023 2:36 PM EDT Pt calling for : 1)lab results. Pt still not feeling well and she was dx with Fibromyalgia on 07-09-23. 2)blood sugar meter quit. Requesting new one be sent unable to test until she gets a new one. Requesting everything be sent to [facility]. Romi Pandya LPN documented in this encounterElyria [facility] Hospital09-18-2023 Hospital Discharge instructions Patient Education 07/15/2023 01:52:49 [...] Arthritis Foundation www.arthritis.org National Fibromyalgia Association www.fmaware.org [place] Fibromyalgia Syndrome Association www.afsafund.org 8847-3190 [employer]. [address] [place] [address]. All rights reserved. This information is not intended as a substitute for professional medical care. Always follow yourhealthcare professional's instructions. Follow Up Care 07/15/2023 01:34:54 With:NAN MARQUIS Address: IN [place] FOR ER PT REFERRALS ONLY When:2-4 days [facility] 09-18-2023 Note Discharge Instructions Thank you [...] When Why Instructions Last Dose New acetaminophen-hydrocodone (Watson 325- 5 mg oral tablet) 1 tab(s) [...] Arthritis Foundation www.arthritis.org National Fibromyalgia Association www.fmaware.org [place] Fibromyalgia Syndrome Association www.afsafund.org 0557-7089 [employer]. [address] [place] [address], [place] [address]. All rights reserved. This information is not intended as a substitute for professional medical care. Always follow yourhealthcare professional's instructions. Additional Information VACCINATE! IT SAVES LIVES! Members of the community who have not yet received the COVID-19 vaccine and would like to receive it can visit one of [facility] vaccine clinics. There are many vaccine clinic locations within the [facility]. For locations and available times, please visit www.gettheshot.coronavirus.[place].gov/. It is important to note that some COVID mobile vaccine clinics are held outdoors and may be canceled in rainy or stormy conditions. To learn more about pediatric vaccinations (ages 5-11), we invite you to visit the [facility] webpage. https://www.Trelligences.org/pages/7332-Lmrdq-Iiphpyksqii-Mfuwohawko-Tirxx-Yew stions.htmlTo learn more about the COVID-19 vaccine, we invite you to visit the CDC website for a list of frequently asked questions. https://www.cdc.gov/coronavirus/2019-ncov/vaccines/faq.html [facility] Patient Portal Access Instructions: Stay connected with your healthcare team and access your personal medical information anytime with the [facility] Patient Portal. If you would like a full copy of your medical records please contact the [facility] Medical Records Department Saturday through Saturday between 8a.m. and 4:30p.m. Please follow the directions below to access the portal: 1.Access the email account you provided upon registration to the hospital.2.Look for an invitation email from [facility].3.Open the email and access the invitation link: Accept Invitation to [facility]4.Fill in the required field to create your account. Sign into [email or web address] with your username and password that you [...] you will allow to register on the [employer] Patient Portal for access to your information. You can also access the [employer] Patient Portal on the startuply wyatt. Simply click on "Health Records" under "PreggersDaBioAxone Therapeutic" and then click on the 20lines logo. HOW TO SAFELY DISPOSE OF PRESCRIPTION [...] Call your local pharmacy or go to [email or web address] to find one close to you.3.Make use of household items: Use cat litter or old coffee grounds to dispose medications if other options arenot available. Mix your drugs with these household products, seal them in an airtight container andthrow it into the garbage. Call [facility]: [phone] to be sure your drugs can be [...] aware that I should contact my doctor. Patient/Strike Operations Officer Signature: Date/Time: Relationship to Patient: Witness Name/Signature: Date/Time: [facility]09-15-2023 Nurse Note* Sherly Storey Ma - 07/12/2023 11:57 AM EDT Pain level before Toradol injection at 11:28 AM 08/06 Pain level after injection at 11:37 AM was 11/06 documented in this encounterElyria [facility] Hospital09-15-2023 History of Present illness Narrative* Lala Harrison APRN.HOT DOG VENDOR - 07/12/2023 10:55 AM EDT CC: Patient presents with: ED Follow-up: [facility] [facility] 06/29/23 HPI Irma Stewart is a 63 year old female who presents today for fibromyalgia pain. This is an established patient of Dr. Hackett'carol but my first time evaluating her. Has been in the ER in [place] for severe pain, per patient received multiple [...] cymbalta as ordered by psychiatry at the [facility]. REVIEW OF SYSTEMS General: no fevers, [...] vaginal ALLERGIES Betadine [Povidone-Iodine], Glimepiride, Haldol [Haloperidol], [place], Metformin, Neurontin [Gabapentin], Penicillins, Tylenol [Acetaminophen], and [...] DM - Controlled E11.9 Insulin: Yes Insulin Lowell, Disposable, (BD ULTRAFINE III MINI PEN) 31 [...] Take 1 tablet by mouth twice weekly [id number], then decrease to 1 tablet weekly. ferrous [...] plan. Lala Harrison APRN.MICHAEL documented in this encounterElyria [facility] Hospital09-02-2023 Hospital Discharge instructions Patient Education 06/29/2023 21:16:37 [...] or legs Numbness in the groin area [phone] [employer]. [address] [place] [address]. All rights reserved. This information is not intended as a substitute for professional medical care. Always follow yourhealthcare professional's instructions. Follow Up Care 06/29/2023 19:52:09 With:MARIBELL GARCIA DO [facility] Address: [address] [facility] [place] [address]- [phone] When:2-4 days With:[facility] Address: When:2-4 days With:[facility] Address: [address] [place] [address] [phone] When:2-4 days [facility] 09-02-2023 Emergency department Discharge summary Discharge Instructions Thank you for allowing [facility] to assist you with your healthcare needs. [...] Medicine When Within 2-4 days Where: [address] [facility] [place] [address] [phone] Follow Up with [facility], Orthopaedics When Within 2-4 days Where: Follow Up with WILLY HUTSON APRN-MICHAEL When Within 2-4 days Where: [address] [place] [address]- [phone] Allergies Haldol lithium traMADol Medications Please ask [...] or legs Numbness in the groin area [phone] [employer]. [address] [place] [address]. All rights reserved. This information is not intended as a substitute for professional medical care. Always follow yourhealthcare professional's instructions. Additional Information VACCINATE! IT SAVES LIVES! Members of the community who have not yet received the COVID-19 vaccine and would like to receive it can visit one of [facility] vaccine clinics. There are many vaccine clinic locations within the [facility]. For locations and available times, please visit www.gettheshot.coronavirus.[place].gov/. It is important to note that some COVID mobile vaccine clinics are held outdoors and may be canceled in rainy or stormy conditions. To learn more about pediatric vaccinations (ages 5-11), we invite you to visit the [facility] webpage. https://www.[facility].org/pages/0720-Wjtfx-Jathtcoetri-Xsqikvqmfp-Ayynq-Uih stions.htmlTo learn more about the COVID-19 vaccine, we invite you to visit the CDC website for a list of frequently asked questions. https://www.cdc.gov/coronavirus/2019-ncov/vaccines/faq.html [facility] Patient Portal Access Instructions: Stay connected with your healthcare team and access your personal medical information anytime with the [employer] Patient Portal. If you would like a full copy of your medical records please contact the [facility] Medical Records Department Saturday through Saturday between 8a.m. and 4:30p.m. Please follow the directions below to access the portal: 1.Access the email account you provided upon registration to the [facility].2.Look for an invitation email from [facility].3.Open the email and access the invitation link: Accept Invitation to [facility]4.Fill in the required field to create your account. Sign into [email or web address] FP with your username and password that you [...] you will allow to register on the [employer] Patient Portal for access to your information. You can also access the [facility] Patient Portal on the [employer]. Simply click on "Health Records" under "HealthData" [...] Call your local pharmacy or go to [email or web address] to find one close to you.3.Make use of household items: Use cat litter or old coffee grounds to dispose medications if other options arenot available. Mix your drugs with these household products, seal them in an airtight container andthrow it into the garbage. Call [facility]: [phone] to be sure your drugs can be [...] aware that I should contact my doctor. Patient/Strike Operations Officer Signature: Date/Time: Relationship to Patient: Witness Name/Signature: Date/Time: [facility]08-15-2023 Miscellaneous Notes* Telephone Encounter - Christoph Mckeon Ma - 06/11/2023 3:51 PM EDT ROSALIA: 02/22/2023 NOV: none scheduled. Last refill: 04/08/2023 QTY: 60 Refills: 1 documented in [place]lin [place] [address]-01-2023 Miscellaneous Notes* Telephone Encounter - Chloe Booker [...] wrote this message into the Office via [employer] 3 days ago. Hi Brunilda, I was [...] weight loss. My Ozempic was denied at [place], [place]. I don't know what I'm suppose [...] Prior Authorization has been completed online at [employer] for ozempic, will await response. BRAVO- [id number] Please keep encounter open until final decision has been received and documented from insurance company. Camila Lees MA * Telephone Encounter - Inocencia Lowery RN - 04/15/2023 4:45 PM EDT PRIOR AUTHORIZATION Medication for Prior Authorization: Ozempic Other formulary meds available : NO Insurance Company: [employer] phone number: Patient insurance ID number: [id number] Inocencia Lowery RN documented in this encounterElyria [facility] Hospital07-31-2023 NoteHNO ID: [id number] Author: Ricardo Dinh RPh Service: ? Author Type: Pharmacist Type: Progress Notes Filed: 05/31/2023 2:06 PM Note Text: Primary Care Pharmacy Visit CC (Reason for Consult): (E11.9, Z79.4) Controlled type 2 diabetes mellitus without complication, with long-term current use of insulin (HCC) (primary encounter diagnosis) Goal(s): A1C < 7% Last Collaborating Provider Visit: 02/22/23 Irma Stweart is a 63 year old female presenting [...] Diarrhea Haldol [Haloperidol] Other: See Comments Headache/hallucinations [place] Other: See Comments Hallucinations Metformin Diarrhea Neurontin [...] E11.9 Insulin: Yes 100 Each 0 Insulin Lowell, Disposable, (BD ULTRAFINE III MINI PEN) 31 [...] Take 1 tablet by mouth twice weekly [id number], then decrease to 1 tablet weekly. 24 [...] Date HBA1C 6.6 0 (more content not included)...[facility] [id number] History of Present illness Narrative* Ricardo Dinh, [facility] - 05/27/2023 3:00 PM EDT Primary Care [...] Diarrhea Haldol [Haloperidol] Other: See Comments Headache/hallucinations [place] Other: See Comments Hallucinations Metformin Diarrhea Neurontin [...] E11.9 Insulin: Yes 100 Each 0 Insulin Lowell, Disposable, (BD ULTRAFINE III MINI PEN) 31 [...] Take 1 tablet by mouth twice weekly [id number], then decrease to 1 tablet weekly. 24 [...] complication, with long-term current use of insulin ([facility]) - ICD9: 250.00, V58.67, ICD10: E11.9, Z79.4 [...] time was 35 minutes. documented in this encounterElyria Memorial Hospital07-27-2023 History of Present illness Narrative* Thom Enamorado [...] 4 Planned Treatment Interventions: Canalith Repositioning Maneuvers (84981), Self- custodial management (79054), Patient/Family/Caregiver Education, Body Mechanics Training PLAN FOR [...] WITH LEVEL OF FUNCTION: Positional Testing Right [place]: Symptomatic, No nystagmus (very mild with no [...] 1555 Thom Enamorado PT documented in this encounterElyria Memorial Hospital07-07-2023 Miscellaneous Notes* Telephone Encounter - Jolene Tubbs [...] you. Anupama Ceballos LPN documented in this encounterElyria Memorial Hospital06-26-2023 Miscellaneous Notes* Telephone Encounter - Christoph Mckeon [...] you. Anupama Ceballos LPN documented in this encounterElyria Memorial Hospital06-23-2023 History of Present illness Narrative* Ursula Vegas - 04/19/2023 11:19 AM EDT POPULATION HEALTH NAVIGATION OUTREACH Action/FYI RP Outreach: LVM for Patient to call back and schedule ADEN Consult for Knee joint injury, initial encounter [S89.90XA]. [phone]. Any agent can assist. Patient Identified by Name and : YES, via [employer] Outreach Outcome/Action Unable to reach patient: Left message Did you use a PCP flex slot to schedule this appointment? No Reason for Outreach Care Gap or Scheduling/Wellness visits Payer: Payor: [employer]ICA[employer] / Plan: [facility] MEDICAID / Product Type: Medicaid / [...] 19, 2023 11:19 AM documented in this encounterElyria Memorial Hospital06-20-2023 History of Present illness Narrative* Sarabjitrishi Shasta - 04/16/2023 11:02 AM EDT POPULATION HEALTH NAVIGATION OUTREACH Action/FYI RP Outreach: LVM for Patient to call back and schedule ADEN Consult for Knee joint injury, initial encounter [S89.90XA]. [phone]. Any agent can assist. Patient Identified by Name and : YES, via [employer] Outreach Outcome/Action Unable to reach patient: Left message Did you use a PCP flex slot to schedule this appointment? No Reason for Outreach Care Gap or Scheduling/Wellness visits Payer: Payor: [facility] MEDICAID / Plan: [facility] MEDICAID / Product Type: Medicaid / [...] 16, 2023 11:02 AM documented in this encounterElyria Memorial Hospital06-15-2023 Miscellaneous Notes* Telephone Encounter - Iveth Nye [...] you. Iveth Nye LPN documented in this encounterElyria Memorial Hospital06-15-2023 History of Present illness Narrative* Fior Joseph [...] present. Adherence: denies missed doses. Pharmacy: e- [facility]/pharmacy #[id number] [place] [address] [phone] [facility]. - [phone] [facility] [phone] Rx coverage: Payor: [facility] MEDICAID / Plan: [facility] MEDICAID / Product Type: Medicaid ACTIVE PROBLEM LIST Esophageal Reflux Moderate Episode of Recurrent Major Depressive Disorder (Hcc) Panic Disorder Without Agoraphobia Somatization Disorder Irritable Bowel Syndrome Other and Unspecified Hyperlipidemia Schizophrenia (Hcc) Other Mixed Anxiety Disorders Controlled Type 2 Diabetes Mellitus Without Complication, With Long-Term Current Use of Insulin ([facility]) PAST MEDICAL HISTORY Diagnosis Date Abdominal pain, unspecified site 10/15/2006 Allergic rhinitis Allergic rhinitis, cause unspecified Bipolar affective disorder, depressed ([facility]) Candidiasis Chondromalacia of patella Chronic depressive personality [...] without mention of status migrainosus Morbid obesity ([facility]) Myalgia and myositis, unspecified Obesity, unspecified Onychomycosis JAYLYN (obstructive sleep apnea) Osteoarthrosis Other acute reactions to stress Other anxiety states Panic disorder Panic disorder without agoraphobia Pedal edema PMH - PAST MEDICAL HISTORY OF joint pain Pure hypercholesterolemia Schizophrenia ([facility]) Sciatica, right side Sleep related bruxism Temporomandibular joint disorders, unspecified TMJ syndrome Unspecified menopausal and postmenopausal disorder Uterine prolapse without mention of vaginal wall prolapse Venous insufficiency of both lower extremities Vitamin D deficiency Past medical history reviewed. ALLERGIES Allergen Reactions Betadine [Povidone-* Unknown Glimepiride Intolerance Diarrhea Haldol [Haloperidol] Other: See Comments Headache/hallucinations [place] Other: See Comments Hallucinations Metformin Diarrhea Neurontin [...] Take 1 tablet by mouth twice weekly x7mblrs, then decrease to 1 tablet weekly. ferrous [...] glucose has been controlled without it Insulin Lowell, Disposable, (BD ULTRAFINE III MINI PEN) 31 [...] complication, with long-term current use of insulin ([facility]) - ICD9: 250.00, V58.67, ICD10: E11.9, Z79.4 [...] verbalized understanding of instructions. Fior Joseph PharmD, [facility] Primary Care Clinical Pharmacist The majority of the pharmacy visit (> 50%) was spent counseling and/or coordinating care for thepatient. interaction: telephonic time was 48 minutes. documented in this encounterElyria Memorial Hospital05-30-2023 Instructions* Patient Instructions* Gavi Norwood APRN.HOT DOG VENDOR - 03/26/2023 7:35 PM EDT ASSESSMENT/PLAN: 1. [...] Suboptimal joint space centering frontal weightbearing imaging Medical Operations Supervisor: JADON Transcribe Date/Time: Mar 26 2023 7:15P [...] pillows when lying down. documented in this encounterElyria Memorial Hospital05-30-2023 History of Present illness Narrative* Gavi Norwood APRN.HOT DOG VENDOR - 03/26/2023 6:50 PM EDT Subjective HPI [...] vaginal ALLERGIES Betadine [Povidone-Iodine], Glimepiride, Haldol [Haloperidol], [place], Metformin, Neurontin [Gabapentin], Penicillins, Tylenol [Acetaminophen], and [...] Take 1 tablet by mouth twice weekly [id number], then decrease to 1 tablet weekly. ferrous sulfate 325 mg (65 mg iron) tablet TAKE 1 TABLET BY MOUTH TWICE A DAY WITH MEALS Insulin Lowell, Disposable, (BD ULTRAFINE III MINI PEN) 31 [...] Suboptimal joint space centering frontal weightbearing imaging Medical Operations Supervisor: JADON Transcribe Date/Time: Mar 26 2023 7:15P Dictated by : LATISHA ISAAC MD - RICE therapy as directed. - Follow-up with orthopedics as directed. - Discussed red flags and need for immediate medical evaluation if any occur. - Discussed supportive care treatment with fluids, rest and analgesia. - Discussed expected course of illness Gavi Norwood APRN.MICHAEL documented in this encounterElyria Memorial Hospital05-30-2023 History of Present illness Narrative* Carine Scott [...] 26, 2023 6:31 PM documented in this encounterElyria Memorial Hospital05-03-2023 Miscellaneous Notes* Telephone Encounter - Monik Hackett [...] to pain management Regards, Monik Hackett MD * Telephone Encounter - Rhona Lai [...] advise, Rhona Lai RN documented in this encounterElyria Memorial Hospital04-28-2023 History of Present illness Narrative* Carine Scott, [...] 22, 2023 3:20 PM [facility] Miscellaneous Notes* Telephone Encounter - Jess Perry [...] Primary Care Clinical Pharmacist documented [facility] Miscellaneous Notes* Telephone Encounter - Inocencia Lowery [...] you. Inocencia Lowery RN documented in this encounterE[facility]03-29-[facility]23 History of Present illness Narrative* Monik Hackett [...] She is going to counseling center at [facility] , duloxetine , zoloft and depakote. She [...] 325 mg (65 mg iron) tablet Insulin [place], Disposable, (BD ULTRAFINE III MINI PEN) 31 [...] LEFT Monik Hackett MD documented in this encounterE[facility]03-08-2023 Miscellaneous Notes* Telephone Encounter - Anupama Ceballos [...] you. Anupama Ceballos LPN documented in this encounterE[facility]03-08-2023 Miscellaneous Notes* Telephone Encounter - Anupama Ceballos [...] you. Anupama Ceballos LPN documented in this encounterE[facility]02-27-2023 Miscellaneous Notes* Telephone Encounter - Monik Hackett MD - 12/24/2022 10:43 PM EST Standing ordered placed Regards, Monik Hackett MD documented in this encounterE[facility]02-02-2023 Miscellaneous Notes* Telephone Encounter - Lala Harrison [...] you. Anupama Ceballos LPN documented in this encounterE[facility]01-16-2023 Miscellaneous Notes* Telephone Encounter - Anupama Ceballos [...] you. Anupama Ceballos LPN documented in this encounterE[facility]12-13-2022 History of Present illness Narrative* Caren Mayfield [...] 09, 2022 5:08 PM documented in this encounterE[facility]11-28-2022 Miscellaneous Notes* Telephone Encounter - Jolene Tubbs [...] Take 1 tablet by mouth twice weekly [id number], then decrease to 1 tablet weekly. Please review and advise. Jolene Tubbs LPN documented in this encounterE[facility]11-28-2022 Miscellaneous Notes* Telephone Encounter - Jolene Tubbs [...] advise. Jolene Tubbs LPN documented in this encounterE[facility]11-11-2022 Miscellaneous Notes* Telephone Encounter - Romi Pandya LPN - 09/07/2022 10:40 AM EST Spoke with pt and information listed below given. Pt verbalizes understanding. Pt transferred to computer processing scheduler to reschedule apt with Podiatry. Romi [...] you. Iveth Nye LPN documented in this encounterEly[facility]10-25-2022 Miscellaneous Notes* Telephone Encounter - Romi Pandya [...] you. Romi Pandya LPN documented in this encounterEly[facility]10-25-2022 Miscellaneous Notes* Telephone Encounter - Romi Pandya [...] you. Romi Pandya LPN documented in this encounterElyria [facility] Hospital09-28-2022 History of Present illness Narrative* Ursula Vegas - 07/25/2022 4:32 PM EDT POPULATION HEALTH NAVIGATION OUTREACH Action/I RP Outreach: LVM for Patient to call back and schedule ADEN Consult for Onychomycosis [B35.1]. [phone]. Any agent can assist. Pt identified by name and : YES, via [employer] Outreach Outcome/Action Unable to reach patient: Left message Did you use a PCP flex slot to schedule this appointment? No Reason for Outreach Care Gap or Scheduling/Wellness visits Payer: Payor: [facility] MEDICAID / Plan: [facility] MEDICAID / Product Type: Medicaid / [...] 25, 2022 4:32 PM documented in this encounterEly[facility]09-20-2022 Miscellaneous Notes* Telephone Encounter - Anupama Ceballos [...] you. Anupama Ceballos LPN documented in this encounterEly[facility]09-06-2022 Miscellaneous Notes* Telephone Encounter - Anupama Ceballos [...] you. Anupama Ceballos LPN documented in this encounterElyria [facility] Hospital08-31-2022 History of Present illness Narrative* Monik Hackett [...] short acting, (LOPRESSOR) 50 mg tablet Insulin [place], Disposable, (BD ULTRAFINE III MINI PEN) 31 [...] Monik Hackett MD ` documented in this encounterElyria [facility] Hospital08-03-2022 Instructions* Patient Instructions* Trixie Gibson APRN.HOT DOG VENDOR - 05/30/2022 5:01 PM EDT Use the terbinafine medication once daily for 12 weeks. Recheck your liver function labs at that point. documented in this encounterElyria [facility] Hospital08-03-2022 History of Present illness Narrative* Trixie Gibson [...] Diarrhea Haldol [Haloperidol] Other: See Comments Headache/hallucinations [place] Other: See Comments Hallucinations Metformin Diarrhea Neurontin [...] 1 tablet by mouth twice daily. Insulin [place], Disposable, (BD ULTRAFINE III MINI PEN) 31 [...] Take 1 tablet by mouth twice weekly [id number], then decrease to 1 tablet weekly. divalproex [...] PNL Trixie Gibson APRN.CNP documented in this encounterElyria [facility] Hospital07-22-2022 Miscellaneous Notes* Telephone Encounter - Lala Harrison [...] 02/09/22 Sherly Storey Ma documented in this encounterElyria [facility] Hospital07-18-2022 Miscellaneous Notes* Telephone Encounter - Nidia Silverio [...] you. Nidia Silverio LPN documented in this encounterElyria [facility] Hospital05-18-2022 Miscellaneous Notes* Telephone Encounter - Trixie Gibson APRN.CNP - 03/14/2022 2:45 PM EDT See other MyChart encounter from today 03/14/2022. Trixie Gibson APRN.CNP documented in this encounterElyria [facility] Hospital05-18-2022 Miscellaneous Notes* Telephone Encounter - Esther Baer Ma - 03/14/2022 8:13 AM EDT Please see patient message Esther Baer Ma documented in this encounterElyria [facility] Hospital04-15-2022 Miscellaneous Notes* Telephone Encounter - Trixie Gibson [...] you. Kenia Dangelo LPN documented in this encounterElyria [facility] Hospital12-19-2006 History of Past illness Narrative* Problem Noted Date Resolved Date Abdominal pain, unspecified site 10/15/2006 12/07/2020 documented as of this encounter (statuses as of 02/09/2022) [address]19-2006 History of Past illness Narrative* Problem Noted Date Resolved Date Abdominal pain, unspecified site 10/15/2006 12/07/2020 documented as of this encounter (statuses as of 03/14/2022) [place] [id number] History of Past illness Narrative* Problem Noted Date Resolved Date Abdominal pain, unspecified site 10/15/2006 12/07/2020 documented as of this encounter (statuses as of 05/05/2022) [address] History of Past illness Narrative* Problem Noted Date Resolved Date Abdominal pain, unspecified site 10/15/2006 12/07/2020 documented as of this encounter (statuses as of 05/17/2022) [address] History of Past illness Narrative* Problem Noted Date Resolved Date Abdominal pain, unspecified site 10/15/2006 12/07/2020 documented as of this encounter (statuses as of 05/19/2022) [address] History of Past illness Narrative* Problem Noted Date Resolved Date Abdominal pain, unspecified site 10/15/2006 12/07/2020 documented as of this encounter (statuses as of 05/28/2022) [address] History of Past illness Narrative* Problem Noted Date Resolved Date Abdominal pain, unspecified site 10/15/2006 12/07/2020 documented as of this encounter (statuses as of 05/31/2022) [address] History of Past illness Narrative* Problem Noted Date Resolved Date Abdominal pain, unspecified site 10/15/2006 12/07/2020 documented as of this encounter (statuses as of 06/28/2022) [address] History of Past illness Narrative* Problem Noted Date Resolved Date Abdominal pain, unspecified site 10/15/2006 12/07/2020 documented as of this encounter (statuses as of 07/05/2022) [address] History of Past illness Narrative* Problem Noted Date Resolved Date Abdominal pain, unspecified site 10/15/2006 12/07/2020 documented as of this encounter (statuses as of 07/18/2022) [address] History of Past illness Narrative* Problem Noted Date Resolved Date Abdominal pain, unspecified site 10/15/2006 12/07/2020 documented as of this encounter (statuses as of 07/25/2022) [address] History of Past illness Narrative* Problem Noted Date Resolved Date Abdominal pain, unspecified site 10/15/2006 12/07/2020 documented as of this encounter (statuses as of 08/22/2022) [address] History of Past illness Narrative* Problem Noted Date Resolved Date Abdominal pain, unspecified site 10/15/2006 12/07/2020 documented as of this encounter (statuses as of 09/07/2022) [address] History of Past illness Narrative* Problem Noted Date Resolved Date Abdominal pain, unspecified site 10/15/2006 12/07/2020 documented as of this encounter (statuses as of 09/26/2022) [address] History of Past illness Narrative* Problem Noted Date Resolved Date Abdominal pain, unspecified site 10/15/2006 12/07/2020 documented as of this encounter (statuses as of 09/26/2022) [address] History of Past illness Narrative* Problem Noted Date Resolved Date Abdominal pain, unspecified site 10/15/2006 12/07/2020 documented as of this encounter (statuses as of 11/13/2022) [address] History of Past illness Narrative* Problem Noted Date Resolved Date Abdominal pain, unspecified site 10/15/2006 12/07/2020 documented as of this encounter (statuses as of 11/29/2022) [address] History of Past illness Narrative* Problem Noted Date Resolved Date Abdominal pain, unspecified site 10/15/2006 12/07/2020 documented as of this encounter (statuses as of 12/25/2022) [address] History of Past illness Narrative* Problem Noted Date Resolved Date Abdominal pain, unspecified site 10/15/2006 12/07/2020 documented as of this encounter (statuses as of 01/02/2023) [address] History of Past illness Narrative* Problem Noted Date Resolved Date Abdominal pain, unspecified site 10/15/2006 12/07/2020 documented as of this encounter (statuses as of 01/04/2023) [address] History of Past illness Narrative* Problem Noted Date Resolved Date Abdominal pain, unspecified site 10/15/2006 12/07/2020 documented as of this encounter (statuses as of 01/24/2023) [address] History of Past illness Narrative* Problem Noted Date Resolved Date Abdominal pain, unspecified site 10/15/2006 12/07/2020 documented as of this encounter (statuses as of 01/31/2023) [address] History of Past illness Narrative* Problem Noted Date Resolved Date Abdominal pain, unspecified site 10/15/2006 12/07/2020 documented as of this encounter (statuses as of 02/01/2023) [address] History of Past illness Narrative* Problem Noted Date Resolved Date Abdominal pain, unspecified site 10/15/2006 12/07/2020 documented as of this encounter (statuses as of 02/28/2023) [address] History of Past illness Narrative* Problem Noted Date Resolved Date Abdominal pain, unspecified site 10/15/2006 12/07/2020 documented as of this encounter (statuses as of 03/27/2023) [address] History of Past illness Narrative* Problem Noted Date Resolved Date Abdominal pain, unspecified site 10/15/2006 12/07/2020 documented as of this encounter (statuses as of 04/12/2023) [address] History of Past illness Narrative* Problem Noted Date Resolved Date Abdominal pain, unspecified site 10/15/2006 12/07/2020 documented as of this encounter (statuses as of 04/12/2023) [address] History of Past illness Narrative* Problem Noted Date Resolved Date Abdominal pain, unspecified site 10/15/2006 12/07/2020 documented as of this encounter (statuses as of 04/16/2023) [address] History of Past illness Narrative* Problem Noted Date Resolved Date Abdominal pain, unspecified site 10/15/2006 12/07/2020 documented as of this encounter (statuses as of 04/19/2023) [address] History of Past illness Narrative* Problem Noted Date Resolved Date Abdominal pain, unspecified site 10/15/2006 12/07/2020 documented as of this encounter (statuses as of 04/23/2023) [address] History of Past illness Narrative* Problem Noted Date Diagnosed Date Resolved Date Abdominal pain, unspecified site 10/15/2006 12/07/2020 documented as of this encounter (statuses as of 05/04/2023) [address] History of Past illness Narrative* Problem Noted Date Diagnosed Date Resolved Date Abdominal pain, unspecified site 10/15/2006 12/07/2020 documented as of this encounter (statuses as of 05/06/2023) [address] History of Past illness Narrative* Problem Noted Date Diagnosed Date Resolved Date Abdominal pain, unspecified site 10/15/2006 12/07/2020 documented as of this encounter (statuses as of 05/24/2023) [address] History of Past illness Narrative* Problem Noted Date Diagnosed Date Resolved Date Abdominal pain, unspecified site 10/15/2006 12/07/2020 documented as of this encounter (statuses as of 05/28/2023) [address] History of Past illness Narrative* Problem Noted Date Diagnosed Date Resolved Date Abdominal pain, unspecified site 10/15/2006 12/07/2020 documented as of this encounter (statuses as of 05/31/2023) [address] History of Past illness Narrative* Problem Noted Date Diagnosed Date Resolved Date Abdominal pain, unspecified site 10/15/2006 12/07/2020 documented as of this encounter (statuses as of 06/12/2023) [address] History of Past illness Narrative* Problem Noted Date Diagnosed Date Resolved Date Abdominal pain, unspecified site 10/15/2006 12/07/2020 documented as of this encounter (statuses as of 07/13/2023) [address] History of Past illness Narrative* Problem Noted Date Diagnosed Date Resolved Date Abdominal pain, unspecified site 10/15/2006 12/07/2020 documented as of this encounter (statuses as of 07/16/2023) [address] History of Past illness Narrative* Problem Noted Date Diagnosed Date Resolved Date Abdominal pain, unspecified site 10/15/2006 12/07/2020 documented as of this encounter (statuses as of 08/09/2023) [address] History of Past illness Narrative* Problem Noted Date Diagnosed Date Resolved Date Abdominal pain, unspecified site 10/15/2006 12/07/2020 documented as of this encounter (statuses as of 08/13/2023) [address] History of Past illness Narrative* Problem Noted Date Diagnosed Date Resolved Date Abdominal pain, unspecified site 10/15/2006 12/07/2020 documented as of this encounter (statuses as of 08/22/2023) [address] History of Past illness Narrative* Problem Noted Date Diagnosed Date Resolved Date Abdominal pain, unspecified site 10/15/2006 12/07/2020 documented as of this encounter (statuses as of 08/31/2023) [address] History of Past illness Narrative* Problem Noted Date Diagnosed Date Resolved Date Abdominal pain, unspecified site 10/15/2006 12/07/2020 documented as of this encounter (statuses as of 09/03/2023) [address] History of Past illness Narrative* Problem Noted Date Diagnosed Date Resolved Date Abdominal pain, unspecified site 10/15/2006 12/07/2020 documented as of this encounter (statuses as of 10/01/2023) [address] History of Past illness Narrative* Problem Noted Date Diagnosed Date Resolved Date Abdominal pain, unspecified site 10/15/2006 12/07/2020 documented as of this encounter (statuses as of 10/01/2023) [address] History of Past illness Narrative* Problem Noted Date Diagnosed Date Resolved Date Abdominal pain, unspecified site 10/15/2006 12/07/2020 documented as of this encounter (statuses as of 10/01/2023) [address] History of Past illness Narrative* Problem Noted Date Diagnosed Date Resolved Date Abdominal pain, unspecified site 10/15/2006 12/07/2020 documented as of this encounter (statuses as of 10/03/2023) [address] History of Past illness Narrative* Problem Noted Date Diagnosed Date Resolved Date Abdominal pain, unspecified site 10/15/2006 12/07/2020 documented as of this encounter (statuses as of 10/04/2023) [address] History of Past illness Narrative* Problem Noted Date Diagnosed Date Resolved Date Abdominal pain, unspecified site 10/15/2006 12/07/2020 documented as of this encounter (statuses as of 10/04/2023) [address] History of Past illness Narrative* Problem Noted Date Diagnosed Date Resolved Date Abdominal pain, unspecified site 10/15/2006 12/07/2020 documented as of this encounter (statuses as of 10/04/2023) [address] History of Past illness Narrative* Problem Noted Date Diagnosed Date Resolved Date Abdominal pain, unspecified site 10/15/2006 12/07/2020 documented as of this encounter (statuses as of 12/03/2023) [address] History of Past illness Narrative* Problem Noted Date Diagnosed Date Resolved Date Abdominal pain, unspecified site 10/15/2006 12/07/2020 documented as of this encounter (statuses as of 12/06/2023) [address] History of Past illness Narrative* Problem Noted Date Diagnosed Date Resolved Date Abdominal pain, unspecified site 10/15/2006 12/07/2020 documented as of this encounter (statuses as of 12/06/2023) [address] History of Past illness Narrative* Problem Noted Date Diagnosed Date Resolved Date Abdominal pain, unspecified site 10/15/2006 12/07/2020 documented as of this encounter (statuses as of 12/09/2023) [address] History of Past illness Narrative* Problem Noted Date Diagnosed Date Resolved Date Abdominal pain, unspecified site 10/15/2006 12/07/2020 documented as of this encounter (statuses as of 12/09/2023) [address] History of Past illness Narrative* Problem Noted Date Diagnosed Date Resolved Date Abdominal pain, unspecified site 10/15/2006 12/07/2020 documented as of this encounter (statuses as of 12/11/2023) [address] History of Past illness Narrative* Problem Noted Date Diagnosed Date Resolved Date Abdominal pain, unspecified site 10/15/2006 12/07/2020 documented as of this encounter (statuses as of 12/11/2023) [address] History of Past illness Narrative* Problem Noted Date Diagnosed Date Resolved Date Abdominal pain, unspecified site 10/15/2006 12/07/2020 documented as of this encounter (statuses as of 12/12/2023) [address] History of Past illness Narrative* Problem Noted Date Diagnosed Date Resolved Date Abdominal pain, unspecified site 10/15/2006 12/07/2020 documented as of this encounter (statuses as of 12/12/2023) [place] [id number] History of Past illness Narrative* Problem Noted Date Diagnosed Date Resolved Date Abdominal pain, unspecified site 10/15/2006 12/07/2020 documented as of this encounter (statuses as of 01/07/2024) [address] History of Past illness Narrative* Problem Noted Date Diagnosed Date Resolved Date Abdominal pain, unspecified site 10/15/2006 12/07/2020 documented as of this encounter (statuses as of 01/08/2024) [place] [id number] History of Past illness Narrative* Problem Noted Date Diagnosed Date Resolved Date Abdominal pain, unspecified site 10/15/2006 12/07/2020 documented as of this encounter (statuses as of 01/27/2024) [place] [id number] History of Past illness Narrative* Problem Noted Date Diagnosed Date Resolved Date Abdominal pain, unspecified site 10/15/2006 12/07/2020 documented as of this encounter (statuses as of 02/07/2024) [address] History of Past illness Narrative* Problem Noted Date Diagnosed Date Resolved Date Abdominal pain, unspecified site 10/15/2006 12/07/2020 documented as of this encounter (statuses as of 02/14/2024) [facility] + Plan note No data available for this section [facility] Evaluation note* Diagnosis Fibromyalgia Mylagia and myositis, unspecified [facility] Diagnosis Need for vaccination Need for prophylactic vaccination and inoculation against unspecified single disease [facility] Diagnosis Need for vaccination Need for prophylactic vaccination and inoculation against unspecified single disease [facility] Diagnosis Fibromyalgia Mylagia and myositis, unspecified [facility] Diagnosis Encounter for screening mammogram for breast cancer [facility]* Diagnosis Onychomycosis- Primary Dermatophytosis of nail [facility]* Diagnosis Pitted nails- Primary Other specified [...] and myositis, unspecified [facility] Diagnosis Controlled type 2 diabetes mellitus without complication, with long-term current use of insulin (HCC)- Primary Vitamin B12 deficiency Other B-complex deficiencies Vitamin D deficiency Unspecified vitamin D deficiency [facility] Diagnosis Controlled type 2 diabetes mellitus without complication, with long-term current use of insulin (HCC) Essential hypertension, benign [facility]* Diagnosis Controlled type 2 diabetes mellitus without complication, with long-term current use of insulin ([facility] [...] disc, site unspecified [facility]* Diagnosis Knee joint injury, initial encounter- Primary [facility]* Diagnosis Controlled type 2 diabetes mellitus without complication, with long-term current use of insulin (HCC)- Primary Medication management Encounter for long-term (current) use of other medications [facility] Diagnosis Controlled type 2 diabetes mellitus without complication, with long-term current use of insulin (HCC) [facility] Diagnosis Controlled type 2 diabetes mellitus without complication, with long-term current use of insulin (HCC) [facility] Diagnosis Encounter for screening mammogram for breast cancer [facility] Diagnosis Benign paroxysmal po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- Primary Benign paroxysmal vertigo of both ears Benign paroxysmal positional vertigo [facility] Diagnosis Controlled type 2 diabetes mellitus without complication, with long-term current use of insulin (HCC)- Primary [facility]* Diagnosis Fibromyalgia Mylagia and myositis, unspecified [facility] Diagnosis Generalized pain- Primary Burning sensation Disturbance of skin sensation Weakness Other malaise and fatigue Brain fog Controlled type 2 diabetes mellitus without complication, with long-term current use of insulin (HCC) Fibromyalgia Mylagia and myositis, unspecified [facility] Diagnosis NANCY positive- Primary Other and [...] nonspecific skin eruption [facility] Diagnosis Fibromyalgia Mylagia and myositis, unspecified [facility]* Diagnosis Need for vaccination Need for prophylactic vaccination and inoculation against unspecified single disease [facility] Diagnosis Hammertoe of left foot [facility] Diagnosis Controlled type 2 diabetes mellitus without complication, with long-term current use of insulin (HCC) [facility]* Diagnosis Essential hypertension, benign Mixed hyperlipidemia [facility]* Diagnosis Essential hypertension, benign [facility] note* Diagnosis Essential hypertension, benign- Primary [facility] Diagnosis Fibromyalgia Mylagia and myositis, unspecified [facility]* Diagnosis Generalized pain Burning sensation Disturbance of skin sensation Fibromyalgia Mylagia and myositis, unspecified [facility]* Diagnosis Hypoxia- Primary Hypoxemia [facility]* Diagnosis Shortness of breath [facility] Diagnosis Shortness of breath [facility] Diagnosis Hypoxia Hypoxemia Shortness of breath [facility] Diagnosis Hypoxia- Primary Hypoxemia Shortness of breath [facility]* Diagnosis Need for vaccination Need for prophylactic vaccination and inoculation against unspecified single disease [facility]* Diagnosis Controlled type 2 diabetes mellitus without complication, with long-term current use of insulin (HCC) [facility]* Diagnosis Mixed hyperlipidemia Generalized pain Burning sensation Disturbance of skin sensation Fibromyalgia Mylagia and myositis, unspecified [facility]* Diagnosis Hypoxia- Primary Hypoxemia On home oxygen therapy Dependence on supplemental oxygen Abnormal lung function test Nonspecific abnormal results of pulmonary system function study [facility]* Diagnosis Essential hypertension, benign [facility]* Diagnosis History of iron deficiency Personal history of diseases of blood and blood-forming organs [facility]* Diagnosis History of iron deficiency Personal history of diseases of blood and blood-forming organs [facility]* Diagnosis Need for vaccination Need for prophylactic vaccination and inoculation against unspecified single disease [facility]* Diagnosis Need for vaccination Need for prophylactic vaccination and inoculation against unspecified single disease [facility] Diagnosis Hypoxemia- Primary [facility]* Diagnosis Chest pain, unspecified type- Primary [...] single bacterial disease [facility]* Diagnosis Essential hypertension, benign [facility]* Diagnosis Encounter for screening mammogram for breast cancer [facility]* Diagnosis Essential hypertension, benign [facility]* Diagnosis Essential hypertension, benign [facility]* Diagnosis Generalized pain Burning sensation Disturbance of skin sensation Fibromyalgia Mylagia and myositis, unspecified [facility]* Diagnosis Mild persistent asthma without complication- Primary Unspecified asthma [facility]* Diagnosis Mild persistent asthma without complication- Primary Unspecified asthma SOB (shortness of breath) Shortness of breath Hypoxemia Morbid obesity (HCC) Morbid obesity [facility]* Diagnosis Controlled type 2 diabetes mellitus without complication, with long-term current use of insulin (HCC)- Primary Chest pain, unspecified type SOBOE (shortness of breath on exertion) Shortness of breath [facility]* Diagnosis Vitamin D deficiency- Primary Unspecified vitamin D deficiency [facility]* Diagnosis Generalized pain Burning sensation Disturbance of skin sensation Fibromyalgia Mylagia and myositis, unspecified Controlled type 2 diabetes mellitus without complication, with long-term current use of insulin ([facility]) [facility]* Diagnosis Pain of right thumb Pain in limb [facility]* Diagnosis Acute cough Shortness of breath [facility]* Diagnosis Knee joint injury, initial encounter [facility] Diagnosis Chronic bilateral low back pain with bilateral sciatica [facility]* Diagnosis Need for vaccination Need for prophylactic vaccination and inoculation against unspecified single disease documented in this encounter [facility] note* Diagnosis Controlled type 2 diabetes mellitus without complication, with long-term current use of insulin (HCC) Medication management Encounter for long-term (current) use of other medications documented in this encounter [facility] note* Diagnosis Fatigue, unspecified type- Primary Generalized pain Burning sensation Disturbance of skin sensation Fibromyalgia Mylagia and myositis, unspecified Controlled type 2 diabetes mellitus without complication, with long-term current use of insulin (HCC) [facility]* Diagnosis Panic disorder without agoraphobia- Primary Moderate episode of recurrent major depressive disorder (HCC) Insomnia, unspecified type Controlled type 2 diabetes mellitus without complication, with long-term current use of insulin (HCC) Burning sensation Disturbance of skin sensation Fibromyalgia Mylagia and myositis, unspecified Other fatigue Generalized pain documented in this encounter [facility] note* Diagnosis Essential hypertension, benign documented in this encounter [facility] note* Diagnosis Schizophrenia, unspecified type (HCC) documented in this encounter [facility] note* Diagnosis Mixed hyperlipidemia [facility]* Diagnosis Schizophrenia, unspecified type (HCC) Need for vaccination Need for prophylactic vaccination and inoculation against unspecified single disease Essential hypertension, benign Insomnia, unspecified type documented in this encounter [facility] note* Diagnosis Controlled type 2 diabetes mellitus without complication, with long-term current use of insulin (HCC) History of iron deficiency Personal history of diseases of blood and blood-forming organs [facility]* Diagnosis Hypoxemia- Primary [facility]* Diagnosis Generalized pain Burning sensation Disturbance of skin sensation Fibromyalgia Mylagia and myositis, unspecified Moderate episode of recurrent major depressive disorder (HCC) [facility]* Diagnosis History of iron deficiency Personal [...] vitamin D deficiency documented in this encounter [facility] note* Diagnosis Encounter for screening mammogram [...] of other medications documented in this encounter [facility] note* Diagnosis Generalized pain Burning sensation Disturbance of skin sensation Fibromyalgia Mylagia and myositis, unspecified Moderate episode of recurrent major depressive disorder (HCC) documented in this encounter [facility] note* Diagnosis Essential hypertension, benign documented in this encounter [facility] for referral (narrative)* Diagnostic Procedure Only (Routine) - Pending Review Specialty Diagnoses / Procedures Referred By Fiorella stanley Referred To Contact [facility] Diagnoses Encounter for screening mammogram for breast cancer Procedures ALTHEA SCREENING SCREENING MAMMOGRAPHY BI 2-VIEW BREAST INC CAD Monik Hackett MD [address] [place] [address] [facility] [address] [place] [id number] Referral ID Status Reason Start Date Expiration Date Visits Requested Visits Authorized [id number] Pending Review Auto-Generat ed Referral 05/23/2022 06/22/2023 1 1 [facility] for referral (narrative)* Outpatient Procedure (Routine) - Authorized Specialty Diagnoses / Procedures Referred By Fiorella stanley [facility] Diagnoses Mixed hyperlipidemia Procedures PVR LEG W/EXC RYLEY VAS LAB N-INVAS PHYSIOLOGIC STD LXTR ART COMPL BI Monik Hackett MD [address] [place] [address] [facility] [place] [address] [place] [address] Referral ID Status Reason Start Date Expiration Date Visits Requested Visits Authorized [id number] Authorized Auto-Generat ed Referral 06/27/2022 06/27/2023 1 1 * Transition of Care (Routine) - Ref Not Required Specialty Diagnoses / Procedures Referred By Fiorella t Referred To Contact Dermatology Diagnoses Pitted nails Procedures CONSULT TO DERMATOLOGY Monik Hackett MD [address] [place] [address] Referral ID Status Reason Start Date Expiration Date Visits Requested Visits Authorized [id number] Ref Not Required PCP Requested Referral 06/27/2022 06/27/2023 1 1 [facility] for referral (narrative)* Diagnostic Procedure Only (Routine) - Pending Review Specialty Diagnoses / Procedures Referred By Fiorella stanley Referred To Contact [facility] IMAGING Diagnoses Subcutaneous nodules Procedures US EXTREMITY MASS/FLUID COLLECTION LEFT Monik Hackett MD [facility] [place] [address] [facility] Imaging Referral ID Status Reason Start Date Expiration Date Visits Requested Visits Authorized [id number] Pending Review Auto-Generat ed Referral 01/23/2023 02/22/2024 1 1 [facility] for referral (narrative)* Diagnostic Procedure Only (Routine) - Pending Review Specialty Diagnoses / Procedures Referred By Fiorella stanley Referred To Contact [facility] Diagnoses Encounter for screening mammogram for breast cancer Procedures ALTHEA SCREENING SCREENING MAMMOGRAPHY BI 2-[place] [address] [place] [address] [facility] [address] [facility] [place] [address] Referral ID Status Reason Start Date Expiration Date Visits Requested Visits Authorized [id number] Pending Review Auto-Generat ed Referral 05/01/2023 05/30/2024 1 1 [facility] for referral (narrative)* Diagnostic Procedure Only (Routine) - Closed Specialty Diagnoses / Procedures Referred By Fiorella stanley Referred To Contact XR IMAGING Diagnoses Hammertoe of left foot Procedures XR FOOT GENERAL 3V AP/LAT/OBL LEFT RADEX FOOT COMPLETE MINIMUM 3 VIEWS Testrake, Narendra [address] [place] [address] [facility] [address] Referral ID Status Reason Start Date Expiration Date V isits Requested Visits Authorized [id number] Closed Auto-Generate d Referral 10/09/2022 11/08/2023 1 1 [facility] for referral (narrative)* Outpatient Procedure (Routine) - Pending Review Specialty Diagnoses / Procedures Referred By Contac t Referred To Contact [facility] Diagnoses Hypoxemia Procedures ECHO ECHO TTHRC R-T 2D W/WOM-MODE COMPL SPEC&COLR D Camila Johns MD [address] [place] [address] [facility] [address] [facility] [place] [place] [address] Referral ID Status Reason Start Date Expiration Date Visits Requested Visits Authorized [id number] Pending Review Auto-Generat ed Referral 02/27/2024 02/26/2025 1 1 [facility] for referral (narrative)* Outpatient Procedure (Routine) - Pending Review Specialty Diagnoses / Procedures Referred By Contac t Referred To Contact [facility] Diagnoses Chest pain, unspecified type SOBOE (shortness of breath on exertion) Procedures STRESS ECHO DOBUTAMINE ECHO TTHRC R-T 2D W/WO M-MODE COMPLETE REST&ST Jaime Spencer APRN.CNS [address] [place] [address] [facility] [address] [place] [address] Referral ID Status Reason Start Date Expiration Date Visits Requested Visits Authorized [id number] Pending Review Auto-Generat ed Referral 02/27/2024 02/26/2025 1 1 * Medication Prior Authorization - Closed Specialty Diagnoses / Procedures Referred By Contac t Referred To Contact Jaime Spencer APRN.CNS [address] [place] [address] Referral ID Status Reason Start Date Expiration Date Visits Re quested Visits Authorized [id number] Closed 1 1 * Outpatient Procedure (Routine) - Pending Review Specialty Diagnoses / Procedures Referred By Contac t Referred [facility] Diagnoses Chest pain, unspecified type Procedures ECG COMPLETE ECG ROUTINE ECG W/LEAST 12 LDS W/I&R Jaime Spencer APRN.CNS [address] [place] [address] [facility] [address] [place] [address] Referral ID Status Reason Start Date Expiration Date Visits Requested Visits Authorized [id number] Pending Review Auto-Generat ed Referral 02/27/2024 02/26/2025 1 1 * Consult, Test, Treat (Routine) - Authorized Specialty Diagnoses / Procedures Referred By Fiorella stanley Referred To Contact Ophthalmology Diagnoses Screening for diabetic retinopathy Controlled type 2 diabetes mellitus without complication, with long-term current use of insulin (HCC) Procedures CONSULT TO OPHTHALMOLOGY OFFICE/OUTPATIENT [facility] MDM 60 MINUTES Jaime Spencre APRN.CNS [address] [place] [address] Referral ID Status Reason Start Date Expiration Date Visits Requested Visits Authorized [id number] Authorized PCP Requested Referral 02/27/2024 02/26/2025 1 1 [facility] for referral (narrative)* Diagnostic Procedure Only (Routine) - Pending Review Specialty Diagnoses / Procedures Referred By Fiorella t Referred To Contact [facility] Diagnoses Encounter for screening mammogram for breast cancer Procedures ALTHEA SCREENING W CORIN SCREENING DIGITAL BREAST TOMOSYNTHESIS BI SCREENING MAMMOGRAPHY BI 2-VIEW BREAST INC Monik Hastings MD [address] [place] [address] [facility] [address] [place] [address] Referral ID Status Reason Start Date Expiration Date Visits Requested Visits Authorized [id number] Pending Review Auto-Generat ed Referral 04/08/2024 05/08/2025 1 1 [facility] for referral (narrative)* Diagnostic Procedure Only (Urgent) - Closed Specialty Diagnoses / Procedures Referred By Contac t Referred To Contact XR IMAGING Diagnoses Pain of right thumb Procedures XR DIGIT GENERAL 3V FRONTAL/LAT/OBL RIGHT RADEX FINGR MINIMUM 2 VIEWS Gavi Norwood APRN.HOT DOG VENDOR [address] [place] [address] [place] [address] Referral ID Status Reason Start Date Expiration Date V isits Requested Visits Authorized [id number] Closed Auto-Generate d Referral 11/25/2023 12/24/2024 1 1 [facility] for referral (narrative)* Diagnostic Procedure Only (Urgent) - Closed Specialty Diagnoses / Procedures Referred By Contac t Referred To Contact XR IMAGING Diagnoses Knee joint injury, initial encounter Procedures XR KNEE GENERAL 4V AP BOTH/PA BOTH/LAT/MERC BILATERAL RADIOLOGIC EXAM KNEE COMPLETE 4/MORE VIEWS Gavi Norwood APRN.HOT DOG VENDOR [address] [place] [address] [place] [address] Referral ID Status Reason Start Date Expiration Date V isits Requested Visits Authorized [id number] Closed Auto-Generate d Referral 03/26/2023 04/24/2024 1 1 [facility] for referral (narrative)* Diagnostic Procedure Only (Routine) - Closed Specialty Diagnoses / Procedures Referred By Contac t Referred To Contact XR IMAGING Diagnoses Chronic bilateral low back pain with bilateral sciatica Procedures XR LUMBAR GENERAL 3V AP/LAT/L5-S1 RADEX SPINE LUMBOSACRAL 2/3 VIEWS Monik Hackett MD [address] [place] [address] [place] [address] Referral ID Status Reason Start Date Expiration Date V isits Requested Visits Authorized [id number] Closed Auto-Generate d Referral 02/22/2023 03/23/2024 1 1 [facility] for referral (narrative)* Medication Prior Authorization - Closed Specialty Diagnoses / Procedures Referred By Contac t Referred To Contact Lala Harrison APRN.HOT DOG VENDOR [address] [place] [address] Phone: tel: fax: Referral ID Status Reason Start Date Expiration Date Visits Re quested Visits Authorized [id number] Closed 1 1 [facility] for visit Narrative* Diagnostic Procedure Only (Routine) - Closed Specialty Diagnoses / Procedures Referred By Contac t Referred To Contact XR IMAGING Diagnoses Hammertoe of left foot Procedures XR FOOT GENERAL 3V AP/LAT/OBL LEFT RADEX FOOT COMPLETE MINIMUM 3 VIEWS Narendra Turner [address] [place] [address] [place] [address] Referral ID Status Reason Start Date Expiration Date V isits Requested Visits Authorized [id number] Closed Auto-Generate d Referral 10/09/2022 11/08/2023 1 1 [facility] for visit Narrative* Diagnostic Procedure Only (Urgent) - Closed Specialty Diagnoses / Procedures Referred By Contac t Referred To Contact XR IMAGING Diagnoses Pain of right thumb Procedures XR DIGIT GENERAL 3V FRONTAL/LAT/OBL RIGHT RADEX FINGR MINIMUM 2 VIEWS Gavi Norwood APRN.HOT DOG VENDOR [address] [place] [address] [place] [address] Referral ID Status Reason Start Date Expiration Date V isits Requested Visits Authorized [id number] Closed Auto-Generate d Referral 11/25/2023 12/24/2024 1 1 [facility] for visit Narrative* Diagnostic Procedure Only (Urgent) - Closed Specialty Diagnoses / Procedures Referred By Contac t Referred To Contact XR IMAGING Diagnoses Knee joint injury, initial encounter Procedures XR KNEE GENERAL 4V AP BOTH/PA BOTH/LAT/MERC BILATERAL RADIOLOGIC EXAM KNEE COMPLETE 4/MORE VIEWS Gavi Norwood APRN.MICHAEL [address] [place] [address] [place] [address] Referral ID Status Reason Start Date Expiration Date V isits Requested Visits Authorized [id number] Closed Auto-Generate d Referral 03/26/2023 04/24/2024 1 1 [facility] for visit Narrative* Diagnostic Procedure Only (Routine) - Closed Specialty Diagnoses / Procedures Referred By Contac t Referred To Contact XR IMAGING Diagnoses Chronic bilateral low back pain with bilateral sciatica Procedures XR LUMBAR GENERAL 3V AP/LAT/L5-S1 RADEX SPINE LUMBOSACRAL 2/3 VIEWS Monik Hackett MD [address] [place] [address] [place] [address] Referral ID Status Reason Start Date Expiration Date V isits Requested Visits Authorized [id number] Closed Auto-Generate d Referral 02/22/2023 03/23/2024 1 1 [facility] Summary Purpose Family History No [...] HIGH MDM 60-74 MINUTES Monik Hackett MD [address] [place] [address] Referral ID Status Reason Start Date Expiration Date Visits Requested Visits Authorized [id number] Authorized PCP Requested Referral 02/27/2023 02/27/2024 1 1 Specialty Diagnoses / Procedures Referred By Contac t Referred To Contact Orthopedics Diagnoses Knee joint injury, initial encounter Procedures CONSULT PANEL TO ORTHOPAEDICS OFFICE/OUTPATIENT [facility] MDM 60-74 MINUTES Gavi Norwood APRN.HOT DOG VENDOR [address] [place] [address] Referral ID Status Reason Start Date Expiration Date Visits Requested Visits Authorized [id number] Authorized PCP Requested Referral 03/26/2023 03/25/2024 1 1 Specialty Diagnoses / Procedures Referred By Contac t Referred To Contact XR IMAGING Diagnoses Knee joint injury, initial encounter Procedures XR KNEE GENERAL 4V AP BOTH/PA BOTH/LAT/MERC BILATERAL RADIOLOGIC EXAM KNEE COMPLETE 4/MORE VIEWS Gavi Norwood APRN.HOT DOG VENDOR [address] [place] [address] Xr Imaging Referral ID Status Reason Start Date Expiration Date V isits Requested Visits Authorized [id number] Closed Auto-Generate d Referral 03/26/2023 04/24/2024 1 1 Specialty Diagnoses / Procedures Referred By Contac t Referred To Contact Diagnoses Controlled type 2 diabetes mellitus without complication, with long-term current use of insulin ([facility]) Monik Hackett MD [address] [place] [address] Referral ID Status Reason Start Date Expiration Date Visits Re quested Visits Authorized [id number] Closed 1 1 Specialty Diagnoses / Procedures Referred By Contac t Referred To Contact Monik Hackett MD [address] [place] [address] Referral ID Status Reason Start Date Expiration Date Visits Re quested Visits Authorized [id number] Closed 1 1 Specialty Diagnoses / Procedures Referred By Contac t Referred To Contact [facility] Diagnoses Benign paroxysmal vertigo of both ears Benign paroxysmal po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 Procedures PT REHAB FOLLOW UP ORDER THERAPEUTIC EXERCISES RE, EA 15 MIN. Pt [facility] [address] [place] [id number] [facility] [place] [address] [place] [address] Referral ID Status Reason Start Date Expiration Date Visits Requested Visits Authorized [id number] Pending Review PCP Requested Referral Auto-Generate d Referral 05/23/2023 08/21/2023 1 1 Referral ID Status Reason Start Date Expiration Date Visits Re quested Visits Authorized [id number] Closed 1 1 Specialty Diagnoses / Procedures Referred By Contac t Referred To Contact Rheumatology Diagnoses NANCY positive Procedures CONSULT TO RHEUM/IMMUN DISEASE OFFICE/OUTPATIENT [facility] 60-74 MINUTES Jaime Spencer, DIRECTOR CONSUMER AFFAIRS.CENTRAL STERILE TECHNICIAN [address] [place] [address] Referral ID Status Reason Start Date Expiration Date Visits Requested Visits Authorized [id number] Authorized PCP Requested Referral 3 08/08/2024 1 1 Specialty Diagnoses / Procedures Referred By Contac t Referred To Contact Diagnoses Controlled type 2 diabetes mellitus without complication, with long-term current use of insulin (HCC) Procedures ENDOCRINOLOGY DIETITIAN VISIT (MNT) MEDICAL NUTRITION ASSMT&IVNTJ INDIV EACH 15 [place] MEDICAL NUTRITION ASSMT&IVNTJ INDIV EACH 15 [place] MEDICAL NUTRITION ASSMT&IVNTJ INDIV EACH 15 [place] MEDICAL NUTRITION ASSMT&IVNTJ INDIV EACH 15 [place] Lala Harrison, DIRECTOR CONSUMER AFFAIRS.HOT DOG VENDOR [address] [place] [address] Referral ID Status Reason Start Date Expiration Date Visits Requested Visits Authorized [id number] Authorized PCP Requested Referral 05/06/2024 05/06/2025 1 1 Referral ID Status Reason Start Date Expiration Date Visits Re quested Visits Authorized [id number] Closed 1 1 Medications Administered Section Inactive [...] section and content) DATE CREATED AUTHOR 09/01/2020 [facility] ([place]) DATE CREATED AUTHOR AUTHOR'S ORGANIZ ATION 06/01/2023 [facility] DATE CREATED AUTHOR AUTHOR'S ORGANIZ ATION 08/17/2025 [facility] DATE CREATED AUTHOR AUTHOR'S ORGANIZ ATION 08/22/2025 [facility] DATE CREATED AUTHOR AUTHOR'S ORGANIZ ATION 09/07/2025 [facility] Source Comments (unrecognize d section and content) In the event this informatio n is protected by the Federal Confidentiality of Alcohol and Drug Abuse Patient Records regulations: The Federal rules restrict any use of the information to criminally investigate or prosecute any alcohol or drug abuse patient.[facility] HospitalIn the event this information is protected by the Federal Confidentiality of Alcohol and Drug Abuse Patient Records regulations: The Federal rules restrict any use of the information to criminally investigate or prosecute any alcohol or drug abuse patient.[facility] HospitalIn the event this information is protected by the Federal Confidentiality of Alcohol and Drug Abuse Patient Records regulations: The Federal rules restrict any use of the information to criminally investigate or prosecute any alcohol or drug abuse patient.[facility] HospitalIn the event this information is protected by the Federal Confidentiality of Alcohol and Drug Abuse Patient Records regulations: The Federal rules restrict any use of the information to criminally investigate or prosecute any alcohol or drug abuse patient.[facility] HospitalIn the event this information is protected by the Federal Confidentiality of Alcohol and Drug Abuse Patient Records regulations: The Federal rules restrict any use of the information to criminally investigate or prosecute any alcohol or drug abuse patient.[facility] HospitalIn the event this information is protected by the Federal Confidentiality of Alcohol and Drug Abuse Patient Records regulations: The Federal rules restrict any use of the information to criminally investigate or prosecute any alcohol or drug abuse patient.[facility] HospitalIn the event this information is protected by the Federal Confidentiality of Alcohol and Drug Abuse Patient Records regulations: The Federal rules restrict any use of the information to criminally investigate or prosecute any alcohol or drug abuse patient.[facility] HospitalIn the event this information is protected by the Federal Confidentiality of Alcohol and Drug Abuse Patient Records regulations: The Federal rules restrict any use of the information to criminally investigate or prosecute any alcohol or drug abuse patient.[facility] HospitalIn the event this information is protected by the Federal Confidentiality of Alcohol and Drug Abuse Patient Records regulations: The Federal rules restrict any use of the information to criminally investigate or prosecute any alcohol or drug abuse patient.[facility] HospitalIn the event this information is protected by the Federal Confidentiality of Alcohol and Drug Abuse Patient Records regulations: The Federal rules restrict any use of the information to criminally investigate or prosecute any alcohol or drug abuse patient.[facility] HospitalIn the event this information is protected by the Federal Confidentiality of Alcohol and Drug Abuse Patient Records regulations: The Federal rules restrict any use of the information to criminally investigate or prosecute any alcohol or drug abuse patient.[facility] HospitalIn the event this information is protected by the Federal Confidentiality of Alcohol and Drug Abuse Patient Records regulations: The Federal rules restrict any use of the information to criminally investigate or prosecute any alcohol or drug abuse patient.[facility] HospitalIn the event this information is protected by the Federal Confidentiality of Alcohol and Drug Abuse Patient Records regulations: The Federal rules restrict any use of the information to criminally investigate or prosecute any alcohol or drug abuse patient.[facility] HospitalIn the event this information is protected by the Federal Confidentiality of Alcohol and Drug Abuse Patient Records regulations: The Federal rules restrict any use of the information to criminally investigate or prosecute any alcohol or drug abuse patient.[facility] HospitalIn the event this information is protected by the Federal Confidentiality of Alcohol and Drug Abuse Patient Records regulations: The Federal rules restrict any use of the information to criminally investigate or prosecute any alcohol or drug abuse patient.[facility] HospitalIn the event this information is protected by the Federal Confidentiality of Alcohol and Drug Abuse Patient Records regulations: The Federal rules restrict any use of the information to criminally investigate or prosecute any alcohol or drug abuse patient.[facility] HospitalIn the event this information is protected by the Federal Confidentiality of Alcohol and Drug Abuse Patient Records regulations: The Federal rules restrict any use of the information to criminally investigate or prosecute any alcohol or drug abuse patient.[facility] HospitalIn the event this information is protected by the Federal Confidentiality of Alcohol and Drug Abuse Patient Records regulations: The Federal rules restrict any use of the information to criminally investigate or prosecute any alcohol or drug abuse patient.[facility] HospitalIn the event this information is protected by the Federal Confidentiality of Alcohol and Drug Abuse Patient Records regulations: The Federal rules restrict any use of the information to criminally investigate or prosecute any alcohol or drug abuse patient.[facility] HospitalIn the event this information is protected by the Federal Confidentiality of Alcohol and Drug Abuse Patient Records regulations: The Federal rules restrict any use of the information to criminally investigate or prosecute any alcohol or drug abuse patient.[facility] HospitalIn the event this information is protected by the Federal Confidentiality of Alcohol and Drug Abuse Patient Records regulations: The Federal rules restrict any use of the information to criminally investigate or prosecute any alcohol or drug abuse patient.[facility] HospitalIn the event this information is protected by the Federal Confidentiality of Alcohol and Drug Abuse Patient Records regulations: The Federal rules restrict any use of the information to criminally investigate or prosecute any alcohol or drug abuse patient.[facility] HospitalIn the event this information is protected by the Federal Confidentiality of Alcohol and Drug Abuse Patient Records regulations: The Federal rules restrict any use of the information to criminally investigate or prosecute any alcohol or drug abuse patient.[facility] HospitalIn the event this information is protected by the Federal Confidentiality of Alcohol and Drug Abuse Patient Records regulations: The Federal rules restrict any use of the information to criminally investigate or prosecute any alcohol or drug abuse patient.[facility] HospitalIn the event this information is protected by the Federal Confidentiality of Alcohol and Drug Abuse Patient Records regulations: The Federal rules restrict any use of the information to criminally investigate or prosecute any alcohol or drug abuse patient.[facility] HospitalIn the event this information is protected by the Federal Confidentiality of Alcohol and Drug Abuse Patient Records regulations: The Federal rules restrict any use of the information to criminally investigate or prosecute any alcohol or drug abuse patient.[facility] HospitalIn the event this information is protected by the Federal Confidentiality of Alcohol and Drug Abuse Patient Records regulations: The Federal rules restrict any use of the information to criminally investigate or prosecute any alcohol or drug abuse patient.[facility] HospitalIn the event this information is protected by the Federal Confidentiality of Alcohol and Drug Abuse Patient Records regulations: The Federal rules restrict any use of the information to criminally investigate or prosecute any alcohol or drug abuse patient.[facility] HospitalIn the event this information is protected by the Federal Confidentiality of Alcohol and Drug Abuse Patient Records regulations: The Federal rules restrict any use of the information to criminally investigate or prosecute any alcohol or drug abuse patient.[facility] HospitalIn the event this information is protected by the Federal Confidentiality of Alcohol and Drug Abuse Patient Records regulations: The Federal rules restrict any use of the information to criminally investigate or prosecute any alcohol or drug abuse patient.[facility] HospitalIn the event this information is protected by the Federal Confidentiality of Alcohol and Drug Abuse Patient Records regulations: The Federal rules restrict any use of the information to criminally investigate or prosecute any alcohol or drug abuse patient.[facility] HospitalIn the event this information is protected by the Federal Confidentiality of Alcohol and Drug Abuse Patient Records regulations: The Federal rules restrict any use of the information to criminally investigate or prosecute any alcohol or drug abuse patient.[facility] HospitalIn the event this information is protected by the Federal Confidentiality of Alcohol and Drug Abuse Patient Records regulations: The Federal rules restrict any use of the information to criminally investigate or prosecute any alcohol or drug abuse patient.[facility] HospitalIn the event this information is protected by the Federal Confidentiality of Alcohol and Drug Abuse Patient Records regulations: The Federal rules restrict any use of the information to criminally investigate or prosecute any alcohol or drug abuse patient.[facility] HospitalIn the event this information is protected by the Federal Confidentiality of Alcohol and Drug Abuse Patient Records regulations: The Federal rules restrict any use of the information to criminally investigate or prosecute any alcohol or drug abuse patient.[facility] HospitalIn the event this information is protected by the Federal Confidentiality of Alcohol and Drug Abuse Patient Records regulations: The Federal rules restrict any use of the information to criminally investigate or prosecute any alcohol or drug abuse patient.[facility] HospitalIn the event this information is protected by the Federal Confidentiality of Alcohol and Drug Abuse Patient Records regulations: The Federal rules restrict any use of the information to criminally investigate or prosecute any alcohol or drug abuse patient.[facility] HospitalIn the event this information is protected by the Federal Confidentiality of Alcohol and Drug Abuse Patient Records regulations: The Federal rules restrict any use of the information to criminally investigate or prosecute any alcohol or drug abuse patient.[facility] HospitalIn the event this information is protected by the Federal Confidentiality of Alcohol and Drug Abuse Patient Records regulations: The Federal rules restrict any use of the information to criminally investigate or prosecute any alcohol or drug abuse patient.[facility] HospitalIn the event this information is protected by the Federal Confidentiality of Alcohol and Drug Abuse Patient Records regulations: The Federal rules restrict any use of the information to criminally investigate or prosecute any alcohol or drug abuse patient.[facility] HospitalIn the event this information is protected by the Federal Confidentiality of Alcohol and Drug Abuse Patient Records regulations: The Federal rules restrict any use of the information to criminally investigate or prosecute any alcohol or drug abuse patient.[facility] HospitalIn the event this information is protected by the Federal Confidentiality of Alcohol and Drug Abuse Patient Records regulations: The Federal rules restrict any use of the information to criminally investigate or prosecute any alcohol or drug abuse patient.[facility] HospitalIn the event this information is protected by the Federal Confidentiality of Alcohol and Drug Abuse Patient Records regulations: The Federal rules restrict any use of the information to criminally investigate or prosecute any alcohol or drug abuse patient.[facility] HospitalIn the event this information is protected by the Federal Confidentiality of Alcohol and Drug Abuse Patient Records regulations: The Federal rules restrict any use of the information to criminally investigate or prosecute any alcohol or drug abuse patient.[facility] HospitalIn the event this information is protected by the Federal Confidentiality of Alcohol and Drug Abuse Patient Records regulations: The Federal rules restrict any use of the information to criminally investigate or prosecute any alcohol or drug abuse patient.[facility] HospitalIn the event this information is protected by the Federal Confidentiality of Alcohol and Drug Abuse Patient Records regulations: The Federal rules restrict any use of the information to criminally investigate or prosecute any alcohol or drug abuse patient.[facility] HospitalIn the event this information is protected by the Federal Confidentiality of Alcohol and Drug Abuse Patient Records regulations: The Federal rules restrict any use of the information to criminally investigate or prosecute any alcohol or drug abuse patient.[facility] HospitalIn the event this information is protected by the Federal Confidentiality of Alcohol and Drug Abuse Patient Records regulations: The Federal rules restrict any use of the information to criminally investigate or prosecute any alcohol or drug abuse patient.[facility] HospitalIn the event this information is protected by the Federal Confidentiality of Alcohol and Drug Abuse Patient Records regulations: The Federal rules restrict any use of the information to criminally investigate or prosecute any alcohol or drug abuse patient.[facility] HospitalIn the event this information is protected by the Federal Confidentiality of Alcohol and Drug Abuse Patient Records regulations: The Federal rules restrict any use of the information to criminally investigate or prosecute any alcohol or drug abuse patient.[facility] HospitalIn the event this information is protected by the Federal Confidentiality of Alcohol and Drug Abuse Patient Records regulations: The Federal rules restrict any use of the information to criminally investigate or prosecute any alcohol or drug abuse patient.[facility] HospitalIn the event this information is protected by the Federal Confidentiality of Alcohol and Drug Abuse Patient Records regulations: The Federal rules restrict any use of the information to criminally investigate or prosecute any alcohol or drug abuse patient.[facility] HospitalIn the event this information is protected by the Federal Confidentiality of Alcohol and Drug Abuse Patient Records regulations: The Federal rules restrict any use of the information to criminally investigate or prosecute any alcohol or drug abuse patient.[facility] HospitalIn the event this information is protected by the Federal Confidentiality of Alcohol and Drug Abuse Patient Records regulations: The Federal rules restrict any use of the information to criminally investigate or prosecute any alcohol or drug abuse patient.[facility] HospitalIn the event this information is protected by the Federal Confidentiality of Alcohol and Drug Abuse Patient Records regulations: The Federal rules restrict any use of the information to criminally investigate or prosecute any alcohol or drug abuse patient.[facility] HospitalIn the event this information is protected by the Federal Confidentiality of Alcohol and Drug Abuse Patient Records regulations: The Federal rules restrict any use of the information to criminally investigate or prosecute any alcohol or drug abuse patient.[facility] HospitalIn the event this information is protected by the Federal Confidentiality of Alcohol and Drug Abuse Patient Records regulations: The Federal rules restrict any use of the information to criminally investigate or prosecute any alcohol or drug abuse patient.[facility] HospitalIn the event this information is protected by the Federal Confidentiality of Alcohol and Drug Abuse Patient Records regulations: The Federal rules restrict any use of the information to criminally investigate or prosecute any alcohol or drug abuse patient.[facility] HospitalIn the event this information is protected by the Federal Confidentiality of Alcohol and Drug Abuse Patient Records regulations: The Federal rules restrict any use of the information to criminally investigate or prosecute any alcohol or drug abuse patient.[facility] HospitalIn the event this information is protected by the Federal Confidentiality of Alcohol and Drug Abuse Patient Records regulations: The Federal rules restrict any use of the information to criminally investigate or prosecute any alcohol or drug abuse patient.[facility] HospitalIn the event this information is protected by the Federal Confidentiality of Alcohol and Drug Abuse Patient Records regulations: The Federal rules restrict any use of the information to criminally investigate or prosecute any alcohol or drug abuse patient.[facility] HospitalIn the event this information is protected by the Federal Confidentiality of Alcohol and Drug Abuse Patient Records regulations: The Federal rules restrict any use of the information to criminally investigate or prosecute any alcohol or drug abuse patient.[facility] HospitalIn the event this information is protected by the Federal Confidentiality of Alcohol and Drug Abuse Patient Records regulations: The Federal rules restrict any use of the information to criminally investigate or prosecute any alcohol or drug abuse patient.[facility] HospitalIn the event this information is protected by the Federal Confidentiality of Alcohol and Drug Abuse Patient Records regulations: The Federal rules restrict any use of the information to criminally investigate or prosecute any alcohol or drug abuse patient.[facility] HospitalIn the event this information is protected by the Federal Confidentiality of Alcohol and Drug Abuse Patient Records regulations: The Federal rules restrict any use of the information to criminally investigate or prosecute any alcohol or drug abuse patient.[facility] HospitalIn the event this information is protected by the Federal Confidentiality of Alcohol and Drug Abuse Patient Records regulations: The Federal rules restrict any use of the information to criminally investigate or prosecute any alcohol or drug abuse patient.[facility] HospitalIn the event this information is protected by the Federal Confidentiality of Alcohol and Drug Abuse Patient Records regulations: The Federal rules restrict any use of the information to criminally investigate or prosecute any alcohol or drug abuse patient.[facility] HospitalIn the event this information is protected by the Federal Confidentiality of Alcohol and Drug Abuse Patient Records regulations: The Federal rules restrict any use of the information to criminally investigate or prosecute any alcohol or drug abuse patient.[facility] HospitalIn the event this information is protected by the Federal Confidentiality of Alcohol and Drug Abuse Patient Records regulations: The Federal rules restrict any use of the information to criminally investigate or prosecute any alcohol or drug abuse patient.[facility] HospitalIn the event this information is protected by the Federal Confidentiality of Alcohol and Drug Abuse Patient Records regulations: The Federal rules restrict any use of the information to criminally investigate or prosecute any alcohol or drug abuse patient.[facility] HospitalIn the event this information is protected by the Federal Confidentiality of Alcohol and Drug Abuse Patient Records regulations: The Federal rules restrict any use of the information to criminally investigate or prosecute any alcohol or drug abuse patient.[facility] HospitalIn the event this information is protected by the Federal Confidentiality of Alcohol and Drug Abuse Patient Records regulations: The Federal rules restrict any use of the information to criminally investigate or prosecute any alcohol or drug abuse patient.[facility] HospitalIn the event this information is protected by the Federal Confidentiality of Alcohol and Drug Abuse Patient Records regulations: The Federal rules restrict any use of the information to criminally investigate or prosecute any alcohol or drug abuse patient.[facility] HospitalIn the event this information is protected by the Federal Confidentiality of Alcohol and Drug Abuse Patient Records regulations: The Federal rules restrict any use of the information to criminally investigate or prosecute any alcohol or drug abuse patient.[facility] HospitalIn the event this information is protected by the Federal Confidentiality of Alcohol and Drug Abuse Patient Records regulations: The Federal rules restrict any use of the information to criminally investigate or prosecute any alcohol or drug abuse patient.[facility] HospitalIn the event this information is protected by the Federal Confidentiality of Alcohol and Drug Abuse Patient Records regulations: The Federal rules restrict any use of the information to criminally investigate or prosecute any alcohol or drug abuse patient.[facility] HospitalIn the event this information is protected by the Federal Confidentiality of Alcohol and Drug Abuse Patient Records regulations: The Federal rules restrict any use of the information to criminally investigate or prosecute any alcohol or drug abuse patient.[facility] HospitalIn the event this information is protected by the Federal Confidentiality of Alcohol and Drug Abuse Patient Records regulations: The Federal rules restrict any use of the information to criminally investigate or prosecute any alcohol or drug abuse patient.[facility] HospitalIn the event this information is protected by the Federal Confidentiality of Alcohol and Drug Abuse Patient Records regulations: The Federal rules restrict any use of the information to criminally investigate or prosecute any alcohol or drug abuse patient.[facility] HospitalIn the event this information is protected by the Federal Confidentiality of Alcohol and Drug Abuse Patient Records regulations: The Federal rules restrict any use of the information to criminally investigate or prosecute any alcohol or drug abuse patient.[facility] HospitalIn the event this information is protected by the Federal Confidentiality of Alcohol and Drug Abuse Patient Records regulations: The Federal rules restrict any use of the information to criminally investigate or prosecute any alcohol or drug abuse patient.[facility] HospitalIn the event this information is protected by the Federal Confidentiality of Alcohol and Drug Abuse Patient Records regulations: The Federal rules restrict any use of the information to criminally investigate or prosecute any alcohol or drug abuse patient.[facility] HospitalIn the event this information is protected by the Federal Confidentiality of Alcohol and Drug Abuse Patient Records regulations: The Federal rules restrict any use of the information to criminally investigate or prosecute any alcohol or drug abuse patient.[facility] HospitalIn the event this information is protected by the Federal Confidentiality of Alcohol and Drug Abuse Patient Records regulations: The Federal rules restrict any use of the information to criminally investigate or prosecute any alcohol or drug abuse patient.[facility] HospitalIn the event this information is protected by the Federal Confidentiality of Alcohol and Drug Abuse Patient Records regulations: The Federal rules restrict any use of the information to criminally investigate or prosecute any alcohol or drug abuse patient.[facility] HospitalIn the event this information is protected by the Federal Confidentiality of Alcohol and Drug Abuse Patient Records regulations: The Federal rules restrict any use of the information to criminally investigate or prosecute any alcohol or drug abuse patient.[facility] HospitalIn the event this information is protected by the Federal Confidentiality of Alcohol and Drug Abuse Patient Records regulations: The Federal rules restrict any use of the information to criminally investigate or prosecute any alcohol or drug abuse patient.[facility] HospitalIn the event this information is protected by the Federal Confidentiality of Alcohol and Drug Abuse Patient Records regulations: The Federal rules restrict any use of the information to criminally investigate or prosecute any alcohol or drug abuse patient.[facility] HospitalIn the event this information is protected by the Federal Confidentiality of Alcohol and Drug Abuse Patient Records regulations: The Federal rules restrict any use of the information to criminally investigate or prosecute any alcohol or drug abuse patient.[facility] HospitalIn the event this information is protected by the Federal Confidentiality of Alcohol and Drug Abuse Patient Records regulations: The Federal rules restrict any use of the information to criminally investigate or prosecute any alcohol or drug abuse patient.[facility] HospitalIn the event this information is protected by the Federal Confidentiality of Alcohol and Drug Abuse Patient Records regulations: The Federal rules restrict any use of the information to criminally investigate or prosecute any alcohol or drug abuse patient.[facility] HospitalIn the event this information is protected by the Federal Confidentiality of Alcohol and Drug Abuse Patient Records regulations: The Federal rules restrict any use of the information to criminally investigate or prosecute any alcohol or drug abuse patient.[facility] HospitalIn the event this information is protected by the Federal Confidentiality of Alcohol and Drug Abuse Patient Records regulations: The Federal rules restrict any use of the information to criminally investigate or prosecute any alcohol or drug abuse patient.[facility] HospitalIn the event this information is protected by the Federal Confidentiality of Alcohol and Drug Abuse Patient Records regulations: The Federal rules restrict any use of the information to criminally investigate or prosecute any alcohol or drug abuse patient.[facility] HospitalIn the event this information is protected by the Federal Confidentiality of Alcohol and Drug Abuse Patient Records regulations: The Federal rules restrict any use of the information to criminally investigate or prosecute any alcohol or drug abuse patient.[facility] HospitalIn the event this information is protected by the Federal Confidentiality of Alcohol and Drug Abuse Patient Records regulations: The Federal rules restrict any use of the information to criminally investigate or prosecute any alcohol or drug abuse patient.[facility] HospitalIn the event this information is protected by the Federal Confidentiality of Alcohol and Drug Abuse Patient Records regulations: The Federal rules restrict any use of the information to criminally investigate or prosecute any alcohol or drug abuse patient.[facility] HospitalIn the event this information is protected by the Federal Confidentiality of Alcohol and Drug Abuse Patient Records regulations: The Federal rules restrict any use of the information to criminally investigate or prosecute any alcohol or drug abuse patient.[facility] HospitalIn the event this information is protected by the Federal Confidentiality of Alcohol and Drug Abuse Patient Records regulations: The Federal rules restrict any use of the information to criminally investigate or prosecute any alcohol or drug abuse patient.[facility] HospitalIn the event this information is protected by the Federal Confidentiality of Alcohol and Drug Abuse Patient Records regulations: The Federal rules restrict any use of the information to criminally investigate or prosecute any alcohol or drug abuse patient.[facility] HospitalIn the event this information is protected by the Federal Confidentiality of Alcohol and Drug Abuse Patient Records regulations: The Federal rules restrict any use of the information to criminally investigate or prosecute any alcohol or drug abuse patient.[facility] HospitalIn the event this information is protected by the Federal Confidentiality of Alcohol and Drug Abuse Patient Records regulations: The Federal rules restrict any use of the information to criminally investigate or prosecute any alcohol or drug abuse patient.[facility] HospitalIn the event this information is protected by the Federal Confidentiality of Alcohol and Drug Abuse Patient Records regulations: The Federal rules restrict any use of the information to criminally investigate or prosecute any alcohol or drug abuse patient.[facility] HospitalIn the event this information is protected by the Federal Confidentiality of Alcohol and Drug Abuse Patient Records regulations: The Federal rules restrict any use of the information to criminally investigate or prosecute any alcohol or drug abuse patient.[facility] HospitalIn the event this information is protected by the Federal Confidentiality of Alcohol and Drug Abuse Patient Records regulations: The Federal rules restrict any use of the information to criminally investigate or prosecute any alcohol or drug abuse patient.[facility] HospitalIn the event this information is protected by the Federal Confidentiality of Alcohol and Drug Abuse Patient Records regulations: The Federal rules restrict any use of the information to criminally investigate or prosecute any alcohol or drug abuse patient.[facility] HospitalIn the event this information is protected by the Federal Confidentiality of Alcohol and Drug Abuse Patient Records regulations: The Federal rules restrict any use of the information to criminally investigate or prosecute any alcohol or drug abuse patient.[facility] HospitalIn the event this information is protected by the Federal Confidentiality of Alcohol and Drug Abuse Patient Records regulations: The Federal rules restrict any use of the information to criminally investigate or prosecute any alcohol or drug abuse patient.[facility] HospitalIn the event this information is protected by the Federal Confidentiality of Alcohol and Drug Abuse Patient Records regulations: The Federal rules restrict any use of the information to criminally investigate or prosecute any alcohol or drug abuse patient.[facility] HospitalIn the event this information is protected by the Federal Confidentiality of Alcohol and Drug Abuse Patient Records regulations: The Federal rules restrict any use of the information to criminally investigate or prosecute any alcohol or drug abuse patient.[facility] HospitalIn the event this information is protected by the Federal Confidentiality of Alcohol and Drug Abuse Patient Records regulations: The Federal rules restrict any use of the information to criminally investigate or prosecute any alcohol or drug abuse patient.[facility] HospitalIn the event this information is protected by the Federal Confidentiality of Alcohol and Drug Abuse Patient Records regulations: The Federal rules restrict any use of the information to criminally investigate or prosecute any alcohol or drug abuse patient.[facility] HospitalIn the event this information is protected by the Federal Confidentiality of Alcohol and Drug Abuse Patient Records regulations: The Federal rules restrict any use of the information to criminally investigate or prosecute any alcohol or drug abuse patient.[facility] HospitalIn the event this information is protected by the Federal Confidentiality of Alcohol and Drug Abuse Patient Records regulations: The Federal rules restrict any use of the information to criminally investigate or prosecute any alcohol or drug abuse patient.[facility] HospitalIn the event this information is protected by the Federal Confidentiality of Alcohol and Drug Abuse Patient Records regulations: The Federal rules restrict any use of the information to criminally investigate or prosecute any alcohol or drug abuse patient.[facility] HospitalIn the event this information is protected by the Federal Confidentiality of Alcohol and Drug Abuse Patient Records regulations: The Federal rules restrict any use of the information to criminally investigate or prosecute any alcohol or drug abuse patient.[facility] HospitalIn the event this information is protected by the Federal Confidentiality of Alcohol and Drug Abuse Patient Records regulations: The Federal rules restrict any use of the information to criminally investigate or prosecute any alcohol or drug abuse patient.[facility] HospitalIn the event this information is protected by the Federal Confidentiality of Alcohol and Drug Abuse Patient Records regulations: The Federal rules restrict any use of the information to criminally investigate or prosecute any alcohol or drug abuse patient.[facility] Reason for Visit (unrecogniz ed [...] RS PT BPPV Monik Hackett MD [address] [place] [address] [place], [place] [address] [place] [address] Referral ID Status Reason Start Date Expiration Date Visits Re quested Visits Authorized [id number] Closed 02/22/2023 10/27/2023 1 1 Reason Comments Insurance Authorization Reason Onset Date Comments Refill Request 06/11/2023 Reason Comments ED Follow-up [facility] 06/29/23 Reason Comments Refill Request New [...] By Contac t Referred To Contact [facility] Diagnoses Shortness of breath Procedures LUNG VOLUMES Yasmine Martinez, DIRECTOR CONSUMER AFFAIRS.HOT DOG VENDOR [address] [place] [address] [address] Referral ID Status Reason Start Date Expiration Date V isits Requested Visits Authorized [id number] Closed Auto-Generate d Referral 11/06/2023 10/27/2024 1 1 Specialty Diagnoses / Procedures Referred By Contac t Referred To Contact [facility] Diagnoses Shortness of breath Procedures SPIROMETRY - BASELINE AND POST DILATOR BRNCDILAT RSPSE SPMTRY PRE&POST-BRNCDILAT ADMN Yasmine Martinez, DIRECTOR CONSUMER AFFAIRS.HOT DOG VENDOR [address] [place] [id number] Respiratory [address] [address] Referral ID Status Reason Start Date Expiration Date V isits Requested Visits Authorized [id number] Closed Auto-Generate d Referral 11/06/2023 10/27/2024 1 1 Specialty Diagnoses / Procedures Referred By Contac t Referred To Contact [facility] Diagnoses Hypoxia Shortness of breath Procedures OXIMETRY WITH AMBULATION NONINVASIVE EAR/PULSE OXIMETRY MULTIPLE DETER Yasmine Martinez, DIRECTOR CONSUMER AFFAIRS.HOT DOG VENDOR [address] [place] [address] [address] Referral ID Status Reason Start Date Expiration Date V isits Requested Visits Authorized [id number] Closed Auto-Generate d Referral 12/03/2023 01/01/2025 1 1 Specialty Diagnoses / Procedures Referred By Contac t Referred To Contact [facility] Diagnoses Shortness of breath Procedures LUNG DIFFUSION CAPACITY (DLCO) DIFFUSING CAPACITY Yasmine Martinez, DIRECTOR CONSUMER AFFAIRS.HOT DOG VENDOR [address] [place] [address] [address] Referral ID Status Reason Start Date Expiration Date V isits Requested Visits Authorized [id number] Closed Auto-Generate d Referral 11/06/2023 10/27/2024 1 [...] DETERMINATION Camila Johns MD [address] [place] [address] Respiratory [place] [address] [place] [id number] Referral ID Status Reason Start Date Expiration Date V isits Requested Visits Authorized [id number] Closed Auto-Generate d Referral 01/24/2024 02/22/2025 1 1 Reason Comments Established Patient 3 month follow up as thal Reason Comments Recheck 6 month follow up [...] Care Teams (unrecognized sec tion and content) Online Facilitator Relationship Specialty Start Date End Date Monik Hackett MD [address] [facility] [place] [address] PCP - General Internal Medicine 07/19/20 [facility] [address] [facility] [place] [address] Pharmacist Pharmacy 12/26/20 Online Facilitator Relationship Specialty Start Date End Date Monik Hackett MD [address] [facility] [place] [address] PCP - General Internal Medicine 07/19/20 [facility]John [facility] [address] [facility] [place] [address] Pharmacist Pharmacy 12/26/20 Online Facilitator Relationship Specialty Start Date End Date Monik Hackett MD [address] [facility] [place] [address] PCP - General Internal Medicine 07/19/20 [facility]PrryJohn [facility] [address] [facility] [place] [address] Pharmacist Pharmacy 12/26/20 Online Facilitator Relationship Specialty Start Date End Date Monik Hackett MD [address] [facility] [place] [address] PCP - General Internal Medicine 07/19/20 [facility]John [facility] [address] [facility] [place] [address] Pharmacist Pharmacy 12/26/20 Online Facilitator Relationship Specialty Start Date End Date Monik Hackett MD [address] [place] [address] PCP - General Internal Medicine 07/19/20 Jess Perry, [facility] [address] [place] [address] Pharmacist Pharmacy 12/26/20 Online Facilitator Relationship Specialty Start Date End Date Monik Hackett MD [address] [place] [address] PCP - General Internal Medicine 07/19/20 Jess Perry, [facility] [address] [place] [address] Pharmacist Pharmacy 12/26/20 Online Facilitator Relationship Specialty Start Date End Date Monik Hackett MD [address] [place] [address] PCP - General Internal Medicine 07/19/20 Jess Perry, [facility] [address] [place] [address] Pharmacist Pharmacy 12/26/20 Online Facilitator Relationship Specialty Start Date End Date Monik Hackett MD [address] [place] [address] PCP - General Internal Medicine 07/19/20 Jess Perry, [facility] [address] [place] [address] Pharmacist Pharmacy 12/26/20 Online Facilitator Relationship Specialty Start Date End Date Monik Hackett MD [address] [place] [address] PCP - General Internal Medicine 07/19/20 Jess Perry, [facility] [address] [place] [address] Pharmacist Pharmacy 12/26/20 Online Facilitator Relationship Specialty Start Date End Date Monik Hackett MD [address] [place] [address] PCP - General Internal Medicine 07/19/20 Jess Perry, [facility] [address] [place] [address] Pharmacist Pharmacy 12/26/20 Online Facilitator Relationship Specialty Start Date End Date Monik Hackett MD [address] [place] [address] PCP - General Internal Medicine 07/19/20 Jess Perry, [facility] [address] [place] [address] Pharmacist Pharmacy 12/26/20 Online Facilitator Relationship Specialty Start Date End Date Monik Hackett MD [address] [place] [address] PCP - General Internal Medicine 07/19/20 Jess Perry, [facility] [address] [place] [address] Pharmacist Pharmacy 12/26/20 Online Facilitator Relationship Specialty Start Date End Date Monik Hackett MD [address] [place] [address] PCP - General Internal Medicine 07/19/20 Jess Perry, [facility] [address] [place] [address] Pharmacist Pharmacy 12/26/20 Online Facilitator Relationship Specialty Start Date End Date Monik Hackett MD [address] [place] [address] PCP - General Internal Medicine 07/19/20 Jess Perry, [facility] [address] [facility] [place] [address] Pharmacist Pharmacy 12/26/20 Online Facilitator Relationship Specialty Start Date End Date Monik Hackett MD [address] [place] [address] PCP - General Internal Medicine 07/19/20 [facility] [address] [place] [address] Pharmacist Pharmacy 12/26/20 Online Facilitator Relationship Specialty Start Date End Date Monik Hackett MD [address] [place] [address] PCP - General Internal Medicine 07/19/20 [facility]John [facility] [address] [place] [address] Pharmacist Pharmacy 12/26/20 Online Facilitator Relationship Specialty Start Date End Date Monik Hackett MD [address] [place] [address] PCP - General Internal Medicine 07/19/20 Jess [facility]John [facility] [address] [place] [address] Pharmacist Pharmacy 12/26/20 Online Facilitator Relationship Specialty Start Date End Date Monik Hackett MD [address] [facility] [place] [address] PCP - General Internal Medicine 07/19/20 Fior JosephJohn [facility] [address] [place] [id number] Pharmacist Pharmacy 04/11/23 Online Facilitator Relationship Specialty Start Date End Date Monik Hackett MD [address] [facility] [place] [address] PCP - General Internal Medicine 07/19/20 [place]Ste[place] [address] [place] [address] Pharmacist Pharmacy 04/11/23 Online Facilitator Relationship Specialty Start Date End Date Monik Hackett MD [address] [place] [address] PCP - General Internal Medicine 07/19/20 [place] [address] [place] [address] Pharmacist Pharmacy 04/11/23 Online Facilitator Relationship Specialty Start Date End Date Monik Hackett MD [address] [place] [address] PCP - General Internal Medicine 07/19/20 [place] [address] [place] [address] Pharmacist Pharmacy 04/11/23 Online Facilitator Relationship Specialty Start Date End Date Monik Hackett MD [address] [place] [address] PCP - General Internal Medicine 07/19/20 [place] [address] [place] [address] Pharmacist Pharmacy 04/11/23 Online Facilitator Relationship Specialty Start Date End Date Monik Hackett MD [address] [place] [address] PCP - General Internal Medicine 07/19/20 [place] [address] [place] [address] Pharmacist Pharmacy 04/11/23 Online Facilitator Relationship Specialty Start Date End Date Monik Hackett MD [address] [place] [address] PCP - General Internal Medicine 07/19/20 [place]Ste[place] [address] [place] [address] Pharmacist Pharmacy 04/11/23 Online Facilitator Relationship Specialty Start Date End Date Monik Hackett MD [address] [place] [address] PCP - General Internal Medicine 07/19/20 [place] [address] [place] [address] Pharmacist Pharmacy 04/11/23 Online Facilitator Relationship Specialty Start Date End Date Monik Hackett MD [address] [place] [address] PCP - General Internal Medicine 07/19/20 [place] [address] [place] [address] Pharmacist Pharmacy 04/11/23 Online Facilitator Relationship Specialty Start Date End Date Monik Hackett MD [address] [place] [address] PCP - General Internal Medicine 07/19/20 [place] [address] [place] [address] Pharmacist Pharmacy 04/11/23 Online Facilitator Relationship Specialty Start Date End Date Monik Hackett MD [address] [place] [address] PCP - General Internal Medicine 07/19/20 [place] [address] [place] [address] Pharmacist Pharmacy 04/11/23 Online Facilitator Relationship Specialty Start Date End Date Monik Hackett MD [address] [place] [address] PCP - General Internal Medicine 07/19/20 [place] [address] [place] [address] Pharmacist Pharmacy 04/11/23 Online Facilitator Relationship Specialty Start Date End Date Monik Hackett MD [address] [place] [address] PCP - General Internal Medicine 07/19/20 [place], [place] [address] [place] [address] Pharmacist Pharmacy 04/11/23 Online Facilitator Relationship Specialty Start Date End Date Monik Hackett MD [address] [place] [address] PCP - General Internal Medicine 07/19/20 [place], [place] [address] [place] [address] Pharmacist Pharmacy 04/11/23 Online Facilitator Relationship Specialty Start Date End Date Monik Hackett MD [address] [place] [address] PCP - General Internal Medicine 07/19/20 [place] [address] [place] [address] Pharmacist Pharmacy 04/11/23 Online Facilitator Relationship Specialty Start Date End Date Monik Hackett MD [address] [facility] [place] [address] PCP - General Internal Medicine 07/19/20 [place]alNancie jeffilyStephanie [place] [address] [place] [address] Pharmacist Pharmacy 04/11/23 Online Facilitator Relationship Specialty Start Date End Date Monik Hackett MD [address] [facility] [place] [address] PCP - General Internal Medicine 07/19/20 [facility]John [facility] [address] [place] [address] Pharmacist Pharmacy 12/26/20 04/10/23 Online Facilitator Relationship Specialty Start Date End Date Monik Hackett MD [address] [facility] [place] [address] PCP - General Internal Medicine 07/19/20 [place]Ste[place] [address] [place] [address] Pharmacist Pharmacy 04/11/23 Online Facilitator Relationship Specialty Start Date End Date Monik Hackett MD [address] [facility] [place] [address] PCP - General Internal Medicine 07/19/20 [place]Ste[place] [address] [place] [address] Pharmacist Pharmacy 04/11/23 Online Facilitator Relationship Specialty Start Date End Date Monik Hackett MD [address] [place] [address] PCP - General Internal Medicine 07/19/20 [place] [address] [place] [address] Pharmacist Pharmacy 04/11/23 Online Facilitator Relationship Specialty Start Date End Date Monik Hackett MD [address] [place] [address] PCP - General Internal Medicine 07/19/20 [place]Ste[place] [address] [place] [address] Pharmacist Pharmacy 04/11/23 Online Facilitator Relationship Specialty Start Date End Date Monik Hackett MD [address] [place] [address] PCP - General Internal Medicine 07/19/20 [place] [address] [place] [address] Pharmacist Pharmacy 04/11/23 Online Facilitator Relationship Specialty Start Date End Date Monik Hackett MD [address] [place] [address] PCP - General Internal Medicine 07/19/20 [place] [address] [place] [address] Pharmacist Pharmacy 04/11/23 Online Facilitator Relationship Specialty Start Date End Date Monik Hackett MD [address] [place] [address] PCP - General Internal Medicine 07/19/20 [place] JosehpStephanie [place] [address] [place] [address] Pharmacist Pharmacy 04/11/23 Online Facilitator Relationship Specialty Start Date End Date Monik Hcakett MD [address] [place] [address] PCP - General Internal Medicine 07/19/20 [place] je[place]Ste[place] [address] [place] [address] Pharmacist Pharmacy 04/11/23 Online Facilitator Relationship Specialty Start Date End Date Monik Hackett MD [address] [place] [address] PCP - General Internal Medicine 07/19/20 [place]Ste[place] [address] [place] [address] Pharmacist Pharmacy 04/11/23 Online Facilitator Relationship Specialty Start Date End Date Monik Hackett MD [address] [place] [address] PCP - General Internal Medicine 07/19/20 [place]Ste[place] [address] [place] [address] Pharmacist Pharmacy 04/11/23 Online Facilitator Relationship Specialty Start Date End Date Monik Hackett MD [address] [place] [address] PCP - General Internal Medicine 07/19/20 [place]Ste[place] [address] [place] [address] Pharmacist Pharmacy 04/11/23 Online Facilitator Relationship Specialty Start Date End Date Monik Hackett MD [address] [facility] [place] [address] PCP - General Internal Medicine 07/19/20 [place]Nancie jeffilyStephanie [place] [address] [place] [address] Pharmacist Pharmacy 04/11/23 Online Facilitator Relationship Specialty Start Date End Date Monik Hacektt MD [address] [place] [address] PCP - General Internal Medicine 07/19/20 [place]Ste[place] [address] [place] [address] Pharmacist Pharmacy 04/11/23 Online Facilitator Relationship Specialty Start Date End Date Monik Hackett MD [address] [place] [address] PCP - General Internal Medicine 07/19/20 [place]Ste[place] [address] [place] [address] Pharmacist Pharmacy 04/11/23 Online Facilitator Relationship Specialty Start Date End Date Monik Hackett MD [address] [place] [address] PCP - General Internal Medicine 07/19/20 [place] jeff[place] [address] [place] [address] Pharmacist Pharmacy 04/11/23 Online Facilitator Relationship Specialty Start Date End Date Monik Hackett MD [address] [place] [address] PCP - General Internal Medicine 07/19/20 [place], FiorStephanie [place] [address] [place] [address] Pharmacist Pharmacy 04/11/23 Online Facilitator Relationship Specialty Start Date End Date Monik Hackett MD [address] [place] [address] PCP - General Internal Medicine 07/19/20 [place] [address] [place] [address] Pharmacist Pharmacy 04/11/23 Online Facilitator Relationship Specialty Start Date End Date Monik Hackett MD [address] [place] [address] PCP - General Internal Medicine 07/19/20 [place] jeff[place] [address] [place] [address] Pharmacist Pharmacy 04/11/23 Online Facilitator Relationship Specialty Start Date End Date Monik Hackett MD [address] [place] [address] PCP - General Internal Medicine 07/19/20 [place] jeff[place] [address] [place] [address] Pharmacist Pharmacy 04/11/23 Online Facilitator Relationship Specialty Start Date End Date Monik Hackett MD [address] [place] [address] PCP - General Internal Medicine 07/19/20 [place] je[place] [address] [place] [address] Pharmacist Pharmacy 04/11/23 Online Facilitator Relationship Specialty Start Date End Date Monik Hackett MD [address] [place] [address] PCP - General Internal Medicine 07/19/20 [facility] [address] [place] [address] Pharmacist Pharmacy 12/26/20 04/10/23 Online Facilitator Relationship Specialty Start Date End Date Monik Hackett MD [address] [place] [address] PCP - General Internal Medicine 07/19/20 [facility] [address] [place] [address] Pharmacist Pharmacy 12/26/20 04/10/23 Online Facilitator Relationship Specialty Start Date End Date Monik Hackett MD [address] [place] [address] PCP - General Internal Medicine 07/19/20 [place], [facility] [address] [place] [phone] Pharmacist Pharmacy 04/11/23 Kelsi Alfred PA-C [address] [place] [address] [facility] 10/04/24 Lala Harrison APRN.CNP [address] [place] [address] [facility] 10/04/24 Liliana Espinoza PA-C [address] [place] [address] [facility] 10/04/24 Online Facilitator Relationship Specialty Start Date End Date Monik Hackett MD [address] [place] [address] PCP - General Internal Medicine 07/19/20 [place] jeffStephanie [place] [address] [place] [phone] Pharmacist Pharmacy 04/11/23 Kelsi Alrfed PA-C [address] [place] [address] [facility] 10/04/24 Lala Harrison APRN.HOT DOG VENDOR [address] [place] [address] [facility] 10/04/24 Liliana Espinoza PA-C [address] [place] [address] [facility] 10/04/24 Online Facilitator Relationship Specialty Start Date End Date Monik Hackett MD [address] [place] [address] PCP - General Internal Medicine 07/19/20 [place] je[place] [address] [place] [phone] Pharmacist Pharmacy 04/11/23 Kelsi Alfred PA-C [address] [place] [address] [facility] 10/04/24 Lala Harrison APRN.HOT DOG VENDOR [address] [facility] [place] [address] [facility] 10/04/24 Liliana Espinoza PA-C [address] [place] [address] [facility] 10/04/24 Online Facilitator Relationship Specialty Start Date End Date Monik Hackett MD [address] [place] [address] PCP - General Internal Medicine 07/19/[address] [phone] Pharmacist Pharmacy 04/11/23 Kelsi Alfred PA-C [address] [place] [address] [facility] 10/04/24 Lala Harrison APRN.HOT DOG VENDOR [address] [place] [address] [facility] 10/04/24 Liliana Espinoza PA-C [address] [place] [address] [facility] 10/04/24 Online Facilitator Relationship Specialty Start Date End Date Monik Hackett MD [address] [place] [address] PCP - General Internal Medicine 07/19/20 [place] je[place]Ste[place]ie [place] [address] [place] [phone] Pharmacist Pharmacy 04/11/23 Kelsi Alfred PA-C [address] [place] [address] [facility] 10/04/24 Lala Harrison APRN.HOT DOG VENDOR [address] [place] [address] [facility] 10/04/24 Liliana Espinoza PA-C [address] [place] [address] [facility] 10/04/24 Online Facilitator Relationship Specialty Start Date End Date Monik Hackett MD [address] [place] [address] PCP - General Internal Medicine 07/19/20 [place], [facility] [address] [place] [phone] Pharmacist Pharmacy 04/11/23 Kelsi Alfred PA-C [address] [place] [address] [facility] 10/04/24 Lala Harrison APRN.HOT DOG VENDOR [address] [place] [address] [facility] 10/04/24 Liliana Espinoza PA-C [address] [place] [address] [facility] 10/04/24 Online Facilitator Relationship Specialty Start Date End Date Monik Hackett MD [address] [place] [address] PCP - General Internal Medicine 07/19/20 [place] [address] [place] [address] Pharmacist Pharmacy 04/11/23 Lala Harrison APRN.HOT DOG VENDOR [address] [place] [address] [facility] 10/04/24 Online Facilitator Relationship Specialty Start Date End Date Monik Hackett MD [address] [place] [address] PCP - General Internal Medicine 07/19/20 [place] [address] [place] [address] Pharmacist Pharmacy 04/11/23 Lala Harrison APRN.HOT DOG VENDOR [address] [place] [address] [facility] 10/04/24 Online Facilitator Relationship Specialty Start Date End Date Monik Hackett MD [address] [place] [address] PCP - General Internal Medicine 07/19/20 [place] [address] [place] [address] Pharmacist Pharmacy 04/11/23 Lala Harrison APRN.HOT DOG VENDOR [address] [place] [address] [facility] 10/04/24 Online Facilitator Relationship Specialty Start Date End Date Monik Hackett MD [address] [facility] [place] [address] PCP - General Internal Medicine 07/19/20 [place] [address] [place] [address] Pharmacist Pharmacy 04/11/23 Lala Harrison APRN.HOT DOG VENDOR [address] [place] [address] [facility] 10/04/24 Online Facilitator Relationship Specialty Start Date End Date Monik Hackett MD [address] [facility] [place] [address] PCP - General Internal Medicine 07/19/20 [place] [address] [place] [address] Pharmacist Pharmacy 04/11/23 Lala Harrison APRN.HOT DOG VENDOR [address] [place] [address] [facility] 10/04/24 Online Facilitator Relationship Specialty Start Date End Date Monik Hackett MD [address] [place] [address] PCP - General Internal Medicine 07/19/20 [place] [address] [place] [address] Pharmacist Pharmacy 04/11/23 Lala Harrison APRN.HOT DOG VENDOR [address] [facility] [place] [address] [facility] 10/04/24 Online Facilitator Relationship Specialty Start Date End Date Monik Hackett MD [address] [place] [address] PCP - General Internal Medicine 07/19/20 [place], [place] [address] [place] [address] Pharmacist Pharmacy 04/11/23 Lala Harrison APRN.HOT DOG VENDOR [address] [facility] [place] [address] [facility] 10/04/24 Online Facilitator Relationship Specialty Start Date End Date Monik Hackett MD [address] [facility] [place] [address] PCP - General Internal Medicine 07/19/20 [place] JosephStephanie [place] [address] [place] [address] Pharmacist Pharmacy 04/11/23 Lala Harrison APRN.HOT DOG VENDOR [address] [place] [address] [facility] 10/04/24 Online Facilitator Relationship Specialty Start Date End Date Monik Hackett MD [address] [facility] [place] [address] PCP - General Internal Medicine 07/19/20 [place]Nancie jeffilyStephanie [place] [address] [place] [address] Pharmacist Pharmacy 04/11/23 Lala Harrison APRN.HOT DOG VENDOR [address] [place] [address] [facility] 10/04/24 Online Facilitator Relationship Specialty Start Date End Date Monik Hackett MD [address] [place], [place] [address] PCP - General Internal Medicine 07/19/20 [place] [address] [place] [address] Pharmacist Pharmacy 04/11/23 Lala Harrison APRN.HOT DOG VENDOR [address] [place], [place] [address] [facility] [employer] [facility] 10/04/24 Online Facilitator Relationship Specialty Start Date End Date Monik Hackett MD [address] [facility], [place] [address] PCP - General Internal Medicine 07/19/20 [place] [address] [place] [address] Pharmacist Pharmacy 04/11/23 Lala Harrison APRN.HOT DOG VENDOR [address] [place] [address] [facility] 10/04/24 FOR RECORDS PERTAINING TO [...] BE BASED ON THE PRIMARY CLINICAL RECORDS. [facility]. provides no warranty or guarantee of the accuracy or completeness of information in this document.
--- NOTE | 2025-09-23 21:57 | EKG12_ITS ---
Test Reason : DYSRHYTHMIA Blood Pressure : */* mmHG Vent. Rate : 82 BPM Atrial Rate : 82 BPM P-R Int : 140 ms QRS Dur : 82 ms QT Int : 414 ms P-R-T Axes : 76 52 53 degrees QTcB Int : 483 ms Normal sinus rhythm Normal ECG Confirmed by TIFFANIE RUDD ([id number]), editor continuity and script CHANDRIKA NICHOLSON ([id number]) on 09/27/2025 6:34:56 AM Referred By: Confirmed By: TIFFANIE RUDD
--- NOTE | 2025-09-23 22:22 | EX.ED.DYSGE1 ---
HPI History of Present Illness Chief Complaint: Abn Labs Narrative Narrative: Chief complaint and HPI: 65-year-old female with history of diabetes, HTN, bipolar, sciatica, fibromyalgia, HTN presents for evaluation of bilateral paresthesias/leg pain, slurred speech, decreased appetite, intermittent confusion. Patient states she has been having bilateral paresthesias/leg pain over the past several years. She was just recently seen in our emergency department for the same symptoms in which she was told she had low potassium and discharged home. Patient states she has currently been referred to a neurologist. She states over the past several days she has had decreased appetite, weight loss, intermittent confusion. When I asked her to describe the confusion she states that sometimes it is difficult to find the word that I want. Family member in the room feels that the patient is slurring her speech. States he she has been doing this for over 24 hours. States he feels like it slightly improving. Patient also endorses lightheadedness when ambulating and states that it has been causing frequent falls over the past several weeks. She has a history of vertigo. She denies any fever, shortness of breath, chest pain, abdominal pain, vomiting, dysuria. Review of systems: See HPI Medications: As listed on the chart Allergies: As listed on the chart PFSH: Per chart Vital signs: As listed on the chart. Reviewed. Physical exam: Gen: A&O x3, NAD Head: Normocephalic, atraumatic Eyes: No sclera icterus, conjunctiva clear, PERRL, EOMI no nystagmus, ENT: Moist mucous membranes, No facial asymmetry Neck: Trachea midline CV: RRR, no murmurs Resp: Lungs CTA BL, no w/r/c GI: Abd soft, non-distended, non-tender, no r/r/g Musc: Full ROM, no deformity, strength +5/5 in all extremities, no pronator drift, no ataxia Skin: Warm, dry, intact Neuro: Alert, oriented, grossly intact, sensation intact, no focal deficits, slurring speech-not her baseline per family member, no aphasia, speaking slow Psych: [facility] Medical History Fibromyalgia Osteoarthritis DDD (degenerative disc disease) FHx: total knee replacement Overactive bladder Diabetes High cholesterol Hypertension Bipolar 1 disorder Depression Anxiety Panic disorder Home Medications Medication Instructions Recorded Last Taken Type oxybutynin chloride 10 mg 10 mg PO QHS 11/27/13 09/29/23 History tablet,extended release 24 hr (Ditropan XL) quetiapine 200 mg tablet (Seroquel) 150 mg PO QHS 11/27/13 09/29/23 History metoprolol tartrate 50 mg tablet 50 mg PO BID 12/04/13 09/30/23 History cholecalciferol (vitamin D3) 25 2,000 unit PO DAILY 10/22/14 09/30/23 History mcg (1,000 unit) tablet (Vitamin D3) duloxetine 60 mg capsule,delayed 60 mg PO DAILY 10/22/14 09/30/23 History release omeprazole 20 mg capsule,delayed 20 mg PO DAILY 10/22/14 09/30/23 History release pregabalin 50 mg capsule 175 mg PO BID 10/22/14 09/30/23 History furosemide 20 mg tablet 20 mg PO DAILY 07/27/20 09/30/23 History insulin glargine 100 unit/mL (3 30 - 40 unit SQ QHS 07/27/20 09/30/23 History mL) subcutaneous pen sertraline 100 mg tablet 400 mg PO DAILY 07/27/20 09/30/23 History quetiapine 100 mg tablet (Seroquel) 100 mg PO QHS #15 tabs 08/02/25 Unknown Rx rosuvastatin 10 mg tablet 10 mg PO QHS 08/02/25 Unknown History Allergy/AdvReac Type Severity Reaction Status Date / Time acetaminophen (From Tylenol) Allergy Swelling Verified 09/23/25 20:46 amoxicillin (Amoxicillin) Allergy Rash Verified 09/23/25 20:46 haloperidol (From Haldol) Allergy Other Verified 09/23/25 20:46 haloperidol lactate (From Allergy Other Verified 09/23/25 20:46 Haldol) lithium ([place]) Allergy Other Verified 09/23/25 20:46 naproxen sodium (From Aleve) Allergy Swelling Verified 09/23/25 20:46 aripiprazole (From Abilify) AdvReac Other Verified 09/23/25 20:49 risperidone (From Risperdal) AdvReac Other Verified 09/23/25 20:46 Surgical History History of tonsillectomy History of rectal surgery H/O: hysterectomy Social History Smoking Status: Never smoker EXAM Physical Exam Const Vital Signs: 09/23/25 20:45 09/23/25 21:30 09/23/25 23:19 Temperature 97.6 F L Temperature Source Oral Pulse Rate 80 94 Respiratory Rate 18 Respiratory Effort Normal Blood Pressure 159/70 H 151/76 H Blood Pressure Mean 99 101 Pulse Ox 97 98 Oxygen Delivery Method Room Air MDM MDM MDM Narrative Medical decision making narrative: 65-year-old female with history of diabetes, HTN, bipolar, sciatica, fibromyalgia, HTN presents for evaluation of bilateral paresthesias/leg pain, slurred speech, decreased appetite, intermittent confusion. Patient states she has been having bilateral paresthesias/leg pain over the past several years. She was just recently seen in our emergency department for the same symptoms in which she was told she had low potassium and discharged home. Family member in the room feels that the patient is slurring her speech. Last known normal over 24 hours ago. Differential diagnosis includes but is not limited to electrolyte abnormality, dehydration, CVA, UTI, intracranial abnormality. NS bolus ordered. CBC without leukocytosis or anemia. Platelets unremarkable. INR unremarkable. CMP unremarkable. Magnesium unremarkable. Troponin unremarkable x 2. UA negative for UTI. CT head and CTA head and neck pending at this time. Patient signed out to oncoming physician Dr. Caraballo. Final disposition pending results however however suspect admission for MRI brain to rule out CVA. EKG: Interpreted by me/EM physician: EKG shows normal sinus rhythm without acute ischemic changes. Heart rate 82 Diagnostic: Interpreted by me/EM physician: Chest x-ray without pneumonia, large effusion, pneumothorax, cardiomegaly. Chronic lung changes. Radiology in agreement. Lab Data Labs: Laboratory Results - last 24 hr 09/23/25 09/23/25 09/23/25 21:45 22:35 23:48 WBC 8.3 RBC 4.73 Hgb 14.2 Hct 43.6 MCV 92.2 MCH 30.0 MCHC 32.6 RDW Std Deviation 42.9 RDW Coeff of Sonal 12.6 Plt Count 187 MPV 11.4 Immature Gran % (Auto) 0.200 Neut % (Auto) 75.6 H Lymph % (Auto) 18.1 L [place] % (Auto) 4.9 Eos % (Auto) 0.7 Baso % (Auto) 0.5 Absolute Neuts (auto) 6.3 Absolute Lymphs (auto) 1.51 Nucleated RBC % 0 PT Cancelled 12.4 INR Cancelled 0.9 APTT Cancelled 23.9 L Sodium Cancelled 138 Potassium Cancelled 4.0 Chloride Cancelled 101 Carbon Dioxide Cancelled 24.1 Anion Gap Cancelled 13 BUN Cancelled 12 Creatinine Cancelled 0.67 L Estim Creat Clear Calc 102.70 Est GFR (MDRD) Non-Af Cancelled 97 BUN/Creatinine Ratio Cancelled 17.4 Glucose Cancelled 172 H Calcium Cancelled 8.7 Magnesium 2.1 Total Bilirubin Cancelled 0.33 AST Cancelled 20 ALT Cancelled 16 Alkaline Phosphatase Cancelled 71 Troponin T High Sens < 6 Troponin T Hi Sens 2 Hr < 6 Total Protein Cancelled 6.4 Albumin Cancelled 3.8 Globulin Cancelled 2.6 Albumin/Globulin Ratio Cancelled 1.5 Urine Color Straw Urine Clarity Clear Urine pH 6.5 Ur Specific Dilley 1.010 Urine Protein Negative Urine Glucose (UA) Normal Urine Ketones 5 H Urine Occult Blood Negative Urine Nitrite Negative Urine Bilirubin Negative Urine Urobilinogen Normal Ur Leukocyte Esterase Negative Urine RBC 0 SEEN Urine WBC 0 SEEN Ur Squamous Epith Cells 0 SEEN Urine Bacteria 0 SEEN Urine Mucus 0 SEEN Radiography Diagnostic Testing: Clinical Impression(s) from Imaging Studies Chest X-Ray 09/23/25 23:59 IMPRESSION: As above. Reading Location: [facility] Discharge Plan Triage Chief Complaint: Abn Labs ED Provider: Joe Antunez Dx/Rx/DC Orders Prescriptions: No Action oxybutynin chloride [Ditropan XL] 10 MG tablet extended release 24hr 10 mg PO QHS quetiapine [Seroquel] 200 MG tablet 150 mg PO QHS metoprolol tartrate 50 MG tablet 50 mg PO BID omeprazole 20 MG capsule 20 mg PO DAILY duloxetine 60 MG capsule 60 mg PO DAILY pregabalin 50 MG capsule 175 mg PO BID cholecalciferol (vitamin D3) [Vitamin D3] 1,000 UNIT tablet 2,000 unit PO DAILY sertraline 100 MG tablet 400 mg PO DAILY furosemide 20 MG tablet 20 mg PO DAILY insulin glargine 100 UNIT/ML insulin pen 30 - 40 unit SQ QHS rosuvastatin 10 mg tablet 10 mg PO QHS quetiapine [Seroquel] 100 mg tablet 100 mg PO QHS Qty: 15 0RF Primary Care Provider: Sheridan Strickland Referrals: Sheridan Strickland MD [Primary Care Provider, Internal Medicine] Print Language: Singaporean
[2025-09-23 22:24] LABS: Hematocrit 43.6 % (37-47); Hemoglobin 14.2 g/dL (12.0-15.0); Immature Granulocytes Count 0.020 X10^3/uL (0.0-0.0); Mean Corp Hgb Conc 32.6 g/dL (32-36); Mean Corpuscular Volume 92.2 fL (81-99); Mean Platelet Vol. 11.4 fl (6.2-12.0); NRBC Flagged by Analyzer 0 % (0-5); Platelet Count 187 K/mm3 (150-450); RBC Distribution Width CV 12.6 % (11.6-14.6); RBC Distribution Width SD 42.9 fl (35.1-43.9); Red Blood Count 4.73 M/mm3 (4.2-5.4); White Blood Count 8.3 K/mm3 (4.4-11.0)
[2025-09-23] MEDS: 0.9% Normal Saline (1000mL) 1,000 ML 1000 ML IV (22:34)
[2025-09-23 22:52] LABS: Troponin T High Sensitivity < 6 ng/L (<=14)
[2025-09-23 22:54] LABS: Magnesium 2.1 mg/dL (1.5-2.2)
[2025-09-23 23:09] LABS: Prothrombin Time (Protime)PT. 12.4 SECONDS (11.7-14.9)
[2025-09-23 23:10] LABS: Partial Thromboplast Time 23.9 Seconds (24.1-36.2)
[2025-09-23 23:19] VITALS: BP 151/76; PULSE 94; O2SAT 98
[2025-09-23 23:54] LABS: Mucous, Urine 0 SEEN /hpf (<or=2+); Red Blood Cells-Urine 0 SEEN /hpf (0-5); Squamous Epithelial Cells - UA 0 SEEN /hpf (5-10)
[2025-09-23 23:56] LABS: Color, Urine Straw (Yellow); Glucose, Dipstick Normal (Normal); Ketone-Dipstick 5 mg/dl (Negative); Leukocyte Esterase-Dipstick Negative /ul (Negative); Nitrite-Dipstick Negative (Negative); Occult Blood-Urine Negative /ul (Negative); Protein-Dipstick Negative (Negative); Specific Gravity, Urine 1.010 (1.002-1.030); Urine Bilirubin Dipstick Negative (Negative)
--- NOTE | 2025-09-23 23:58 | CT_ITS ---
PROCEDURE: BRAIN/HEAD WITHOUT CONTRAST 09/24/2025 REASON FOR EXAM: SLURRED SPEECH/DIZZINESS TECHNIQUE: Procedure Code: CTBR Modality: CT Procedure: BRAIN/HEAD WITHOUT CONTRAST Coronal and Sagittal reconstruction series were provided. One or more dose reduction techniques were used (e.g., Automated exposure control, adjustment of the mA and/or kV according to patient size, use of iterative reconstruction technique. FINDINGS: No acute intracranial hemorrhage. No midline shift. The ventricles are normal in size and configuration. No extra-axial fluid collection is identified. No fracture. The calvarium is intact. The visualized paranasal sinuses and mastoid air cells are clear. CT/Brain/Head without Contrast IMPRESSION: No acute intracranial CT abnormality. Reading Location: [id number]
--- NOTE | 2025-09-23 23:58 | CT_ITS ---
PROCEDURE: CTA HEAD AND NECK W/ CONTRAST 09/24/2025 REASON FOR EXAM: SLURRED SPEECH/DIZZINESS TECHNIQUE: Procedure Code: CTCTA.HDNCK Modality: CT Procedure: CTA HEAD AND NECK W/ CONTRAST Multiplanar Sagittal and Coronal images were obtained. CONTRAST: VOLUME: mL One or more dose reduction techniques were used (e.g., Automated exposure control, adjustment of the mA and/or kV according to patient size, use of iterative reconstruction technique). FINDINGS: HEAD: The intracranial segments of the bilateral ICAs appear unremarkable. The bilateral ACAs appear unremarkable. The anterior communicating artery is patent. The bilateral MCAs appear unremarkable. The intracranial segments of the bilateral vertebral arteries (V4) appear unremarkable. The basilar artery is unremarkable. Hypoplastic P1 segment of the right TOOL CRIB LEAD with a prominent patent right posterior communicating artery, compatible with a origin of the right TOOL CRIB LEAD, normal variant. The remainder of the right TOOL CRIB LEAD appears unremarkable. The left TOOL CRIB LEAD appears unremarkable. A small patent left posterior communicating artery is identified. NECK: The bilateral common carotid arteries, carotid bulbs, and cervical ICAs appear unremarkable. The cervical segments of the bilateral vertebral arteries appear unremarkable. CT/CTA Head AND Neck W/ Contrast IMPRESSION: No hemodynamically significant stenosis, major vessel occlusion/dissection, or aneurysm greater than 3 millimeters. Reading Location: [id number]
--- NOTE | 2025-09-23 23:59 | RAD_ITS ---
PROCEDURE: CHEST PA AND LATERAL 09/24/2025 REASON FOR EXAM: DIZZINESS TECHNIQUE: Procedure Code: RADCXR Modality: DX Procedure: CHEST PA AND LATERAL FINDINGS: Chronic-appearing bronchopulmonary changes are noted within the lungs without airspace consolidation or pleural effusion. The cardiac silhouette appears unremarkable. No acute osseous abnormality. RAD/Chest PA and Lateral IMPRESSION: As above. Reading Location: [id number]
[2025-09-24 00:11] LABS: Troponin T High Sens 2 HR < 6 ng/L (<=14)
[2025-09-24 00:13] LABS: AST(SGOT) 20 U/L (<=31); Alanine Aminotransfer ALT/SGPT 16 U/L (<=34); Albumin, Serum 3.8 g/dL (3.4-4.8); Alkaline Phosphatase 71 U/L (35-104); Anion Gap 13 (5-15); BUN 12 mg/dL (4-19); BUN/Creat Ratio 17.4 RATIO (10-20); Calcium,Total 8.7 mg/dL (7.6-11.0); Carbon Dioxide 24.1 mmol/L (21.0-32.0); Chloride 101 mmol/L (98-108); Estimated Creatinine Clearance 102.70 ml/min (50-250); Globulin 2.6 g/dL (2.2-4.2); Glucose 172 mg/dL (70-99); Potassium 4.0 mmol/L (3.3-5.1)
[2025-09-24 01:24] VITALS: BP 139/70; PULSE 93; RESP 18; O2SAT 100
[2025-09-24 02:24] VITALS: BP 136/72; PULSE 102; RESP 18; TEMP 36.7; O2SAT 95
--- OUTSIDE RECORDS SUMMARY | 2025-09-24 02:29 | XMS RPT_ITS | CCD ---
Author Organization [facility] Care Team Providers Care Fixture Builder Name Role Phone Marco A MCDERMOTT, Monik Primary Care Provider [facility], Keti Unavailable Monik Hackett MD Primary Care Provider [facility], Fior Unavailable Marco A MCDERMOTT, Monik Primary Care Provider GANTA, MONIK Primary Care Unavailable CARYL LACQUER MIXER-WILLY RODRIGUEZ Primary Care Physician [facility], Keti Unavailable Monik Hackett MD Primary Care Provider Kelsi Alfred PA-C Unavailable Older LACQUER MIXER.Lala RODRIGUEZ Unavailable Liliana Espinoza PA-C Unavailable [phone] [employer] Attending Unavailable Ganta, Monik [...] (2 sources) Acetaminophen Drug Allergy [address] [facility] Anti-Epileptic Agents (2 sources) gabapentin Drug Allergy [address] [facility] glimepiride (2 sources) glimepiride Drug Allergy [address] [facility] Haloperidol (2 sources) Haloperidol Drug Allergy 0 Other: See Comments [facility] liraglutide (2 sources) liraglutide Drug Allergy [address] [facility] [place]old[place] (2 sources) [place] Drug Allergy 0 Other: See Comments [facility] metFORMIN (2 sources) metFORMIN Drug Allergy [address] [facility] Penicillins (antibiotic) (2 sources) Penicillins Drug Allergy [address] [facility] Povidone-Iodine (2 sources) Povidone-Iodine Drug Allergy [address] [facility] Work Phone: (20 sources) Acetaminophen; Translations: [ACETAMINOPHEN] Drug Allergy [address] [facility] (20 sources) gabapentin; Translations: [GABAPENTIN] Drug Allergy [address] [facility] Work Phone: (20 sources) glimepiride; Translations: [GLIMEPIRIDE] Drug Allergy [address] [facility] Work Phone: (20 sources) Haloperidol; Translations: [HALOPERIDOL] Drug Allergy 0 Other: See Comments [facility] Work Phone: (20 sources) liraglutide; Translations: [LIRAGLUTIDE] Drug Allergy [address] [facility] Work Phone: (20 sources) [place]; Translations: [LITHIUM] Drug Allergy 0 Other: See Comments [facility] Work Phone: (20 sources) metFORMIN; Translations: [METFORMIN] Drug Allergy [address] [facility] Work Phone: (7 sources) Penicillins; Translations: [PENICILLINS] Propensity to adverse reactions to drug [address] [facility] Work Phone: (20 sources) Povidone-Iodine; Translations: [POVIDONE-IODINE] Drug Allergy [address] [facility] Work Phone: (20 sources) Penicillins Propensity to adverse reactions to drug [address] [facility] Work Phone: (3 sources) traMADol; Translations: [tramadol] Drug Allergy [facility] (14 sources) Penicillins Propensity to adverse reactions to drug [address] [facility] (1 source) Acetaminophen Drug Allergy 5 [facility] Repository (1 source) Amoxicillin Drug Allergy 5 [facility] Repository (1 source) Haloperidol Drug Allergy 5 [facility] Repository (1 source) Haloperidol Drug Allergy 5 [facility] Repository (1 source) [place]en Drug Allergy 5 [facility] Repository (1 source) Naproxen Drug Allergy 5 [facility] Repository (1 source) risperiDONE; Translations: [RISPERIDONE] Drug Allergy 5 [facility] Repository Medications Current Medications Medication Drug Class(es) Dates Sig (Normalized) Sig (Original) acetaminophen 325 mg / HYDROcodone bitartrate 5 mg oral tablet (1 source) Opioid Agonist Start: 07-15-2023 End: 07-18-2023 take 1 tablet by mouth every eight hours as needed for pain [place] 325- 5 mg oral tablet Dose = 1 tab(s), Oral, q8h, PRN as needed for pain, X 3 day(s), # 9 tab(s), 0 Refill(s), Fibromyalgia, 116 Start Date: 07/15/23 Stop Date: 07/18/23 Status: Ordered [id number] 200 actuat albuterol 0.09 mg/actuat metered dose [...] Take 1 tablet by mouth twice weekly [id number], then decrease to 1 tablet weekly. 24 [...] Take 1 tablet by mouth twice weekly [id number], then decrease to 1 tablet weekly. 24 capsule 2 10/14/2020 09/24/2022 Discontinued Comment on above: Take 1 capsule by mo [facility] two times a week. TO BE TAKEN ORALLY DIRECTED. Take 1 tablet by mouth twice weekly [id number], then decrease to 1 tablet weekly. ferrous [...] Comment on above: Take 1 tablet by [facility] once daily. Alternate 2 pills with 1 [...] Chloride (20 sources) Start: 07-09-2023 Potassium Chloride (Hhw-Ikzt-Jms 10) 10 mEq oral tablet, extended release 0 Refill(s) Start Date: 07/09/23 Status: Ordered Medication Dispense Status: Completed Total Allowed Fills: 1 Fills Dispensed: 0 Start: 07-09-2023 Potassium Chlo ride (Dqt-Lvcg-Awd 10) 10 mEq oral tablet, extended release [...] Comment on above: Take [address] [facility] once daily. 0.5 ml dulaglutide 1.5 [...] 11-10-2024 07-12-2023 Episodic Other aftercare (2 sources) senior care (current) use of insulin; Translations: [Controlled type 2 diabetes mellitus without complication, with long-term current use of insulin (HCC)] Onset: 01-23-2023 Episodic Other aftercare (1 source) Other senior care (current) drug therapy; Translations: [Medication management] Onset: [...] Test Name Value Interpretation Reference Range Facility [facility] 09-03-2025 CNOV Office Visit (INTMWS ) IRMA STEWART ([id number]) 1960 F Date Time Provider Department 09/03/25 1:20 PM LALA HARRISON INTMWS During your visit today, we recorded the following information about you: Pulse Respiration Blood pressure Weight 80/minute 16/minute 132/80 110.2 kg Lala Harrison APRN.[facility] 09/06/2025 12:56 PM Signed CC: Patient presents with: Recheck: BP follow up HPI Irma Stewart is a 65 year old female who presents today for BP follow up. Recently had metoprolol increased to better manage this. Recording using Zvents software for draft documentation of the visit was discussed with the patient/authorized customer solutions representative; all questions welcomed and answered. Patient/authorized customer solutions representative agreed to proceed Irma Stewart is [...] vaginal ALLERGIES Betadine [Povidone-Iodine], Glimepiride, Haldol [Haloperidol], [place], Metformin, Neurontin [Gabapentin], Penicillins, Risperidone, Tylenol [Acetaminophen], [...] on 08/25/2025) (more content not included)... Normal [facility] 08-27-2025 CNPN Telephone (INTMWS) IRMA STEWART ([id number]) 1960 F Date Time Provider Department 08/27/25 [...] Oral for 30 Days - Insulin [place], Disposable, (BD ULTRAFINE III MINI PEN) 31 [...] as needed. - PULSE OXIMETER [facility] Use as needed to monitor oxygen level and heart rate - omeprazole (PRILOSEC) 20 mg capsule Take 1 capsule by mouth once daily. - DULoxetine 60 mg CDRS Take 60 mg by mouth two times a day. 100 MG by mouth daily - ZOLOFT 100 MG TAB Take one (1) and one sameer (more content not included)... Normal [facility] CNOVon 08-25-2025 CNOV Office Visit (INTMWS ) IRMA STEWART ([id number]) 1960 F Date Time Provider Department 08/25/25 [...] of eigh (more content not included)... Normal [facility] XR LUMBAR 3V AP/LAT/L5-S1on 08-25-2025 XR LUMBAR [...] fracture. Degenerative disease of the lumbar spine. Residential Property Tax Appraiser: PSCB Transcribe Date/Time: Sep 02 2025 10:07A Dictated by : MAGDA ARTEAGA MD This examination was interpreted and the report reviewed and electronically signed by: MAGDA ARTEAGA MD on Sep 02 2025 10:08AM EST [id number] Normal [facility] ([id number]) 1960 F Date Time Provider Department 08/23/25 [...] metoprolol 75 mg twice daily prescription. Reports [facility] has not received the new order. Contacted [facility]. Medication was out of stock [...] follow up appointment. Thank you Lala Harrison APRN.EQUAL OPPORTUNITY ASSISTANT Lisa Helm MA 08/23/2025 3:37 PM Signed [...] Date Reviewed: 08/20/2025 Reviewed by: Lala Harrison APRN.EQUAL OPPORTUNITY ASSISTANT - Fully Assessed Reason for Visit: Patient [...] DULoxetine (CYMB (more content not included)... Normal [facility] CNOVon 08-20-2025 CNOV Office Visit (INTMWS ) IRMA STEWART ([id number]) 1960 F Date Time Provider Department 08/20/25 [...] Is accompanied by significant other. Recording using Zvents software for draft documentation of the visit was discussed with the patient/authorized customer solutions representative; all questions welcomed and answered. Patient/authorized customer solutions representative agreed to proceed Irma Stewart is [...] vaginal ALLERGIES Betadine [Povidone-Iodine], Glimepiride, Haldol [Haloperidol], [place], Metformin, Neurontin [Gabapentin], Penicillins, Tylenol [Acetaminophen], and [...] 50,000 un (more content not included)... Normal [facility] HbA1c (Bld)on 08-20-2025 Average glucose Estimated from glycated hemoglobin (Bld) [Mass/Vol] 157 mg/dL Normal [facility] Comment on above: Order Comment: Speci men Type: BLOOD SPECIMENOrdering Facility: [facility] Address: [address] [place] [address] Result Comment: eAG: (Estimated average glucose) is a calculated value from HgbA1c and is customer solutions representative of the average blood glucose level in the last 2-3 month period. Performed By: #### 5 5454-3 #### MAIN LABCLIA [id number] [place] [address] [place] HbA1c (Bld) [Mass fraction] 7.1 % High 4.3-5.6 [facility] Comment on above: Order Comment: Corky jiménez Type: BLOOD SPECIMENOrdering Facility: [facility] Address: [address] [place] [address] Result Comment: Amer [place] Diabetes Association guidelines indicate that patients with HgbA1c in the range 5.7-6.4% are at increased risk for development of diabetes, and intervention by lifestyle modification may be beneficial. HgbA1c greater or equal to 6.5% is considered diagnostic of diabetes. Performed By: #### 5 5454-3 ####[facility] LAB[facility] [id number] [place] [address] [place] TSH SerPl-aCncon 08-20-2025 TSH Qn 1.650 m[IU]/L Normal 0.270-4.200 [facility] Comment on above: Order Comment: Corky jiménez Type: BLOOD SPECIMEN [facility] Address: [address] [place] [address] Performed By: #### 1 989-3 #### [facility] LAB CLIA [id number] [address] [place], [place] [address] [place] .Auto Diffon 08-17-2025 Basophil, Absolute 0.1 10 3/mcL Normal 0.0-0.3 [facility] Comment on above: Performed By: #### C RACHELLE PATEL GFR, ANEU, MDW, [place] MEJIA #### [address] [address] Basophils/100 WBC (Bld) 1.1 % Normal 0.0-2.5 [facility] Comment on above: Performed By: #### C RACHELLE PATEL GFR, ANEU, MDW, [place] MEJIA #### [address] [address] Eosinophil, Absolute 0.0 10 3/mcL Normal 0.0-0.7 [facility] Comment on above: Performed By: #### C BC, ADIFF, GFR, ANEU, MDW, TROPHS, BMP #### [address] [address] Eosinophils/100 WBC (Bld) 0.4 % Normal 0.0-6.0 [facility] Comment on above: Performed By: #### C BC, ADIFF, GFR, ANEU, MDW, TROPHS, BMP #### [address] [address] Lymphocyte, Absolute 2.0 10 3/mcL Normal 0.9-4.3 [facility] Comment on above: Performed By: #### C BC, ADIFF, GFR, ANEU, MDW, TROPHS, BMP #### [address] [address] Lymphocytes/100 WBC (Bld) 29.9 % Normal 20.0-40.0 [facility] Comment on above: Performed By: #### C BC, ADIFF, GFR, ANEU, MDW, TROPHS, BMP #### [address] [address] Monocyte, Absolute 0.4 10 3/mcL Normal 0.1-1.4 [facility] Comment on above: Performed By: #### C BC, ADIFF, GFR, ANEU, MDW, TROPHS, BMP #### [address] [address] Monocytes/100 WBC (Bld) 5.3 % Normal 2.0-13.0 [facility] Comment on above: Performed By: #### C BC, ADIFF, GFR, ANEU, MDW, TROPHS, BMP #### [address] [address] Neutrophils/100 WBC (Bld) 63.3 % Normal 50.0-75.0 [facility] Comment on above: Performed By: #### C BC, ADIFF, GFR, ANEU, MDW, TROPHS, BMP #### [address] [address] .GFRon 08-17-2025 Estimated Glomerular Filtration Rate 86 ml/min/1.73sqm Normal [facility] Comment on above: Result Comment: Stages [...] ADIFF, GFR, ANEU, MDW, TROPHS, BMP #### [address] [place], [place] [address] .MDWon 08-17-2025 Monocyte Distribution Width 14.86 Normal 0.00-20.00 [facility] Comment on above: Result Comment: For ED adult patients suspected of sepsis, MDW<=20.0 does not rule out sepsis or risk of sepsis Performed By: #### C BC, ADIFF, GFR, ANEU, MDW, TROPHS, BMP #### [address] [address] .NEUABSon 08-17-2025 Neutrophil, Absolute 4.3 10 3/mcL Normal 2.3-8.1 [facility] Comment on above: Performed By: #### C BC, ADIFF, GFR, ANEU, MDW, TROPHS, BMP #### [address] [place], [place] [address] BMPon 08-17-2025 BUN/Creatinine Ratio 14 ratio Normal 7-27 [facility] Comment on above: Performed By: #### C BC, ADIFF, GFR, ANEU, MDW, TROPHS, BMP #### [id number] [place], [place] [address] Calcium [Mass/Vol] 9.1 mg/dL Normal 8.4-10.2 [facility] Comment on above: Performed By: #### C BC, ADIFF, GFR, ANEU, MDW, TROPHS, BMP #### [address] [address] Chloride [Moles/Vol] 100 mmol/L Normal 98-107 [facility] Comment on above: Performed By: #### C BC, ADIFF, GFR, ANEU, MDW, TROPHS, BMP #### [address] [address] CO2 [Moles/Vol] 31 mmol/L Normal 23-31 [facility] Comment on above: Performed By: #### C BC, ADIFF, GFR, ANEU, MDW, TROPHS, BMP #### [address] [address] Creatinine [Mass/Vol] 0.77 mg/dL Normal 0.51-0.95 [facility] Comment on above: Performed By: #### C BC, ADIFF, GFR, ANEU, MDW, TROPHS, BMP #### [address] [address] Electrolyte Balance 7.0 mEq/L Normal 4.0-15.0 [facility] Comment on above: Performed By: #### C BC, ADIFF, GFR, ANEU, MDW, TROPHS, BMP #### [address] [address] Glucose [Mass/Vol] 187 mg/dL High 80-115 [facility] Comment on above: Performed By: #### C BC, ADIFF, GFR, ANEU, MDW, TROPHS, BMP #### [address] [address] Potassium [Moles/Vol] 3.7 mmol/L Normal 3.5-5.1 [facility] Comment on above: Performed By: #### C BC, ADIFF, GFR, ANEU, MDW, TROPHS, BMP #### [address] [address] Sodium [Moles/Vol] 138 mmol/L Normal 136-145 [facility] Comment on above: Performed By: #### C BC, ADIFF, GFR, ANEU, MDW, TROPHS, BMP #### [address] [address] Urea nitrogen [Mass/Vol] 11 mg/dL Normal 7-18 [facility] Comment on above: Performed By: #### C BC, ADIFF, GFR, ANEU, MDW, TROPHS, BMP #### [address] [place] [address] CBCon 08-17-2025 Erythrocyte distribution width (RBC) [Ratio] 13.4 % Normal 11.5-15.5 [facility] Comment on above: Performed By: #### C BC, ADIFF, GFR, ANEU, MDW, TROPHS, BMP #### [address] [place] [address] Hematocrit (Bld) [Volume fraction] 43.0 % Normal 34.0-46.0 [facility] Comment on above: Performed By: #### C BC, ADIFF, GFR, ANEU, MDW, TROPHS, BMP #### [address] [place] [address] Hgb 14.7 G/dL Normal 12.0-16.0 [facility] Comment on above: Performed By: #### C BC, ADIFF, GFR, ANEU, MDW, TROPHS, BMP #### [address] [address] MCH (RBC) [Entitic mass] 30.7 pg Normal 27.0-33.0 [facility] Comment on above: Performed By: #### C BC, ADIFF, GFR, ANEU, MDW, TROPHS, BMP #### [address] [place] [address] MCHC 34.1 G/dL Normal 32.0-36.0 [facility] Comment on above: Performed By: #### C BC, ADIFF, GFR, ANEU, MDW, TROPHS, BMP #### [address] [address] MCV (RBC) [Entitic vol] 90.1 fL Normal 80.0-99.0 [facility] Comment on above: Performed By: #### C BC, ADIFF, GFR, ANEU, MDW, TROPHS, BMP #### [address] [address] Platelet 191 10 3/mcL Normal 150-450 [facility] Comment on above: Performed By: #### C BC, ADIFF, GFR, ANEU, MDW, TROPHS, BMP #### [address] [address] Platelet mean volume (Bld) [Entitic vol] 8.4 fL Normal 6.6-10.5 [facility] Comment on above: Performed By: #### C BC, ADIFF, GFR, ANEU, MDW, TROPHS, BMP #### [address] [address] RBC 4.77 10 6/mcL Normal 4.10-5.30 [facility] Comment on above: Performed By: #### C BC, ADIFF, GFR, ANEU, MDW, TROPHS, BMP #### [address] [address] WBC 6.8 10 3/mcL Normal 4.5-10.8 [facility] Comment on above: Performed By: #### C BC, ADIFF, GFR, ANEU, MDW, TROPHS, BMP #### [address] [address] LABORATORYOrdered By: SYSTEM SYSTEM on 08-17-2025 Troponin I.cardiac DL <= 0.01 ng/mL [Mass/Vol] 4 ng/L Normal 0 - 51 ng/L AO ADM SS Comment on above: Interpretive Data: H igh Sensitive Troponin I Reference Ranges: Female: 0-51 ng/L Male: 0-76 ng/L Testing performed on [employer] using a homogeneous sandwich chemiluminescent immunoassay based on [employer] technology. Basophils (Bld) [#/Vol] 0.1 103/mcL Normal [...] ng/L Male: 0-76 ng/L Testing performed on [employer] using a homogeneous sandwich chemiluminescent immunoassay based on [employer] technology. Urea nitrogen [Mass/Vol] 11 mg/dL Normal 7 - 18 mg/dL AO ADM SS Urea nitrogen/Creatinine [Mass ratio] 14 ratio Normal 7 - 27 ratio AO ADM SS WBC (Bld) [#/Vol] 6.8 103/mcL Normal 4.5 - 10.8 10^3/mcL AO [facility]flow [facility] High Sensitivity Troponin I 4 ng/L Normal 0-51 [facility] Comment on above: Result Comment: High Sensitive Troponin I Reference Ranges: Female: 0-51 ng/L Male: 0-76 ng/L Testing performed on [employer] using a homogeneous sandwich chemiluminescent immunoassay based on [employer] technology. Performed By: #### T [facility] #### [id number] [place], [place] [address] High Sensitivity Troponin I <4 Normal 0-51 [facility] Comment on above: Result Comment: High Sensitive Troponin I Reference Ranges: Female: 0-51 ng/L Male: 0-76 ng/L Testing performed on [employer] EXL using a homogeneous sandwich chemiluminescent immunoassay based on [employer] technology. Performed By: #### C BC, ADIFF, GFR, ANEU, MDW, TROPHS, BMP #### [id number] [place], [place] [address] XR CHEST 1 VIEWon 08-17-2025 XR CHEST [...] 5:58:59 PM Ordering Provider: ASHLEY MARTIN Normal [facility] 12 Lead EKGon 08-02-2025 12 Lead EKG [facility] Cardiovascular Services [address] [place] [address] 12 Lead EKG 08/02/25 0146 MR#: [id number] Acct: [id number] Name: IRMA STEWART Rep #: [id number] : 1960 65 From: Robert Dominguez MD [...] Abnormal ECG Confirmed by ANGELA MCDERMOTT, ROBERT ([id number]), editor & co founder CHANDRIAK NICHOLSON ([id number]) on 08/02/2025 8:39:42 AM Referred By: Confirmed By: ROBERT DOMINGUEZ MD 08/02/25 0839 Date Robert Dominguez MD CC: Dr. Monik Hackett MD; Dr. Veronica Farmer, Signed Normal [facility] CBC W/Diff, Automatedon 10-0 Absolute Lymph 3.03 X10 3/uL Normal 0.83-4.51 [facility] Comment on above: Performed By: #### L 100.0100, L500.4050 #### [facility] Laboratory [address] [place], [address] Absolute Neut 3.2 X10 3/uL Normal 2.0-7.7 [facility] Comment on above: Performed By: #### L 100.0100, L500.4050 #### [facility] [address] [place], [address] Basophils/100 WBC (Bld) 0.6 % Normal 0-1 [facility] Comment on above: Performed By: #### L 100.0100, L500.4050 #### [facility] [address] [place], [address] Eosinophils/100 WBC (Bld) 1.2 % Normal 0-5 [facility] Comment on above: Performed By: #### L 100.0100, L500.4050 #### [facility] [address] [place], [address] Erythrocyte distribution width (RBC) [Ratio] 12.6 % Normal 11.6-14.6 [facility] Comment on above: Performed By: #### L 100.0100, L500.4050 #### [facility] [address] [place], [address] Hematocrit (Bld) [Volume fraction] 41.3 % Normal 37-47 [facility] Comment on above: Performed By: #### L 100.0100, L500.4050 #### [facility] [address] [place], [address] Hemoglobin (Bld) [Mass/Vol] 13.7 g/dL Normal 12.0-15.0 [facility] Comment on above: Performed By: #### L 100.0100, L500.4050 #### [facility] [address] [place], [address] IG% 0.100 Normal 0.0-0.9 [facility] Comment on above: Result Comment: IG% - Immature Granulocytes (promyelocytes, myelocytes and metamyelocytes) > 1% indicates that a LEFT SHIFT is Present. Performed By: #### L 100.0100, L500.4050 #### [facility] [address] [place], [address] Lymphocytes/100 WBC (Bld) 44.1 % High 19-41 [facility] Comment on above: Performed By: #### L 100.0100, L500.4050 #### [facility] [address] [place], [address] MCH (RBC) [Entitic mass] 29.9 pg Normal 27.0-32.0 [facility] Comment on above: Performed By: #### L 100.0100, L500.4050 #### [facility] [address] [place], [address] MCHC (RBC) [Mass/Vol] 33.2 g/dL Normal 32-36 [facility] Comment on above: Performed By: #### L 100.0100, L500.4050 #### [facility] [address] [place], [address] MCV (RBC) [Entitic vol] 90.2 fL Normal 81-99 [facility] Comment on above: Performed By: #### L 100.0100, L500.4050 #### [facility] [address] [place], [address] Monocytes/100 WBC (Bld) 7.0 % Normal 0-10 [facility] Comment on above: Performed By: #### L 100.0100, L500.4050 #### [facility] [address] [place], [address] Neutrophils/100 WBC (Bld) 47.0 % Normal 47-70 [facility] Comment on above: Performed By: #### L 100.0100, L500.4050 #### [facility] [address] [place], [address] Nucleated RBC (Bld) [#/Vol] 0 10*3/uL Normal 0-5 [facility] Comment on above: Performed By: #### L 100.0100, L500.4050 #### [facility] [address] [place], [address] Platelet mean volume (Bld) [Entitic vol] 10.7 fL Normal 6.2-12.0 [facility] Comment on above: Performed By: #### L 100.0100, L500.4050 #### [facility] [address] [place], [address] Platelets (Bld) [#/Vol] 172 10*3/uL Normal 150-450 [facility] Comment on above: Performed By: #### L 100.0100, L500.4050 #### [facility] [address] [place], [address] RBC (Bld) [#/Vol] 4.58 10*6/uL Normal 4.2-5.4 [facility] Comment on above: Performed By: #### L 100.0100, L500.4050 #### [facility] [address] [place], [address] RDW SD 40.9 fl Normal 35.1-43.9 [facility] Comment on above: Performed By: #### L 100.0100, L500.4050 #### [facility] [address] [place], [address] WBC (Bld) [#/Vol] 6.9 10*3/uL Normal 4.4-11.0 [facility] Comment on above: Performed By: #### L 100.0100, L500.4050 #### [facility] [address] [place], [address] Comprehensive [facility] 08-02-2025 Albumin [Mass/Vol] 4.4 g/dL Normal 3.4-4.8 [facility] Comment on above: Performed By: #### L 100.0100, L500.4050 #### [facility] [address] [place], [address] Albumin/Globulin [Mass ratio] 1.8 {ratio} Normal 0.9-2.4 [facility] Comment on above: Performed By: #### L 100.0100, L500.4050 #### [facility] [address] [place], [address] ALK PHOS 87 U/L Normal 35-104 [facility] Comment on above: Performed By: #### L 100.0100, L500.4050 #### [facility] [address] [place], [address] ALT [Catalytic activity/Vol] 17 U/L Normal <=34 [facility] Comment on above: Performed By: #### L 100.0100, L500.4050 #### [facility] [address] [place], [address] AST [Catalytic activity/Vol] 21 U/L Normal <=31 [facility] Comment on above: Performed By: #### L 100.0100, L500.4050 #### [facility] [address] [place], [address] Bilirubin [Mass/Vol] 0.31 mg/dL Normal 0.00-1.30 [facility] Comment on above: Performed By: #### L 100.0100, L500.4050 #### [facility] [address] [place], [address] BUN/CRE 17.8 RATIO Normal 10-20 [facility] Comment on above: Performed By: #### L 100.0100, L500.4050 #### [facility] [address] [place], [address] Calcium [Mass/Vol] 9.0 mg/dL Normal 7.6-11.0 [facility] Comment on above: Performed By: #### L 100.0100, L500.4050 #### [facility] [address] [place], [address] Chloride [Moles/Vol] 97 mmol/L Low 98-108 [facility] Comment on above: Performed By: #### L 100.0100, L500.4050 #### [facility] [address] [place], [address] CO2 [Moles/Vol] 26.1 mmol/L Normal 21.0-32.0 [facility] Comment on above: Performed By: #### L 100.0100, L500.4050 #### [facility] [address] [place], [address] Creatinine [Mass/Vol] 0.90 mg/dL Normal 0.70-1.20 [facility] Comment on above: Performed By: #### L 100.0100, L500.4050 #### [facility] [address] [place], [address] GAP 15 Normal 5-15 [facility] Comment on above: Performed By: #### L 100.0100, L500.4050 #### [facility] [address] [place], [address] GFR/1.73 sq M.predicted among non-blacks MDRD (S/P/Bld) [Vol rate/Area] 71 mL/min/{1.73_m2} Normal >60 [facility] Comment on above: Result Comment: mL/m in/1.73m2 CKD-EPI Creatinine Equation (2020) Performed By: #### L 100.0100, L500.4050 #### [facility] [address] [place], [address] Globulin (S) [Mass/Vol] 2.4 g/dL Normal 2.2-4.2 [facility] Comment on above: Performed By: #### L 100.0100, L500.4050 #### [facility] [address] [place], [address] Glucose [Mass/Vol] 241 mg/dL High 70-99 [facility] Comment on above: Performed By: #### L 100.0100, L500.4050 #### [facility] [address] [place] [place], [address] Potassium [Moles/Vol] 3.5 mmol/L Normal 3.3-5.1 [facility] Comment on above: Performed By: #### L 100.0100, L500.4050 #### [facility] [address] [place], [address] Sodium [Moles/Vol] 138 mmol/L Normal 133-145 [facility] Comment on above: Performed By: #### L 100.0100, L500.4050 #### [facility] [address] [place], [address] T PROT 6.8 g/dL Normal 5.9-8.4 [facility] Comment on above: Performed By: #### L 100.0100, L500.4050 #### [facility] [address] [place], [address] Urea nitrogen [Mass/Vol] 16 mg/dL Normal 4-19 [facility] Comment on above: Performed By: #### L 100.0100, L500.4050 #### [facility] [address] [place], [address] Emergency Department Summary on 08-02-2025 Emergency Department Summary [facility] Medical Records Department [address] [place] [address] Emergency Department Summary 08/02/25 MR#: [id number] Acct: [id number] Name: IRMA STEWART CHACHA Rep #: [id number] : 1960 65 From: Veronica Farmer DO [...] She has a new prescriber at the [facility] and was prescribed 400 mg [...] taking her blood pressure every night recently. [facility] Medical History Fibromyalgia Osteoarthritis DDD (degenerative disc [...] Allergy Other Verified 08/02/25 01:13 Haldol) lithium ([place]) Allergy Other Verified 08/02/25 01:13 naproxen sodium [...] 18 14 (more content not included)... Normal [facility] Brain/Head without Contrasto n 07-31-2025 Brain/Head without Contrast [facility] Imaging Services [address] [place] [address] Brain/Head without Contrast MR#: [id number] Acct: [id number] Name: IRMA STEWART Rep #: [id number] : 1960 F 65 From: Jerry zhou MD PCP: Dr. Monik Hackett MD Status: REG ER Study: Brain/Head without Contrast Date of Exam: 02/19 Exam# [id number] Ordering Dr: Jose Khoury MD PROCEDURE: BRAIN/HEAD [...] be considered as clinically warranted. Reading Location: [place] [address] CC: Dr. Jose Khoury MD; Dr. Monik Hackett MD Residential Property Tax Appraiser: Signed Normal [facility] CBC W/Diff, Automatedon 10-0 -2024 Absolute Lymph 2.65 X10 3/uL Normal 0.83-4.51 [facility] Comment on above: Performed By: #### L 100.0100, L500.4050 #### [facility] [address] [place], [address] Absolute Neut 2.8 X10 3/uL Normal 2.0-7.7 [facility] Comment on above: Performed By: #### L 100.0100, L500.4050 #### [facility] [address] [place], [address] Basophils/100 WBC (Bld) 0.7 % Normal 0-1 [facility] Comment on above: Performed By: #### L 100.0100, L500.4050 #### [facility] [address] [place], [address] Eosinophils/100 WBC (Bld) 1.7 % Normal 0-5 [facility] Comment on above: Performed By: #### L 100.0100, L500.4050 #### [facility] [address] [place], [address] Erythrocyte distribution width (RBC) [Ratio] 12.7 % Normal 11.6-14.6 [facility] Comment on above: Performed By: #### L 100.0100, L500.4050 #### [facility] [address] [place], [address] Hematocrit (Bld) [Volume fraction] 41.5 % Normal 37-47 [facility] Comment on above: Performed By: #### L 100.0100, L500.4050 #### [facility] [address] [place], [address] Hemoglobin (Bld) [Mass/Vol] 13.7 g/dL Normal 12.0-15.0 [facility] Comment on above: Performed By: #### L 100.0100, L500.4050 #### [facility] [address] [place], [address] IG% 0.200 Normal 0.0-0.9 [facility] Comment on above: Result Comment: IG% - Immature Granulocytes (promyelocytes, myelocytes and metamyelocytes) > 1% indicates that a LEFT SHIFT is Present. Performed By: #### L 100.0100, L500.4050 #### [facility] [address] [place], [address] Lymphocytes/100 WBC (Bld) 44.5 % High 19-41 [facility] Comment on above: Performed By: #### L 100.0100, L500.4050 #### [facility] [address] [place], [address] MCH (RBC) [Entitic mass] 30.1 pg Normal 27.0-32.0 [facility] Comment on above: Performed By: #### L 100.0100, L500.4050 #### [facility] [address] [place], [address] MCHC (RBC) [Mass/Vol] 33.0 g/dL Normal 32-36 [facility] Comment on above: Performed By: #### L 100.0100, L500.4050 #### [facility] [address] [place], [address] MCV (RBC) [Entitic vol] 91.2 fL Normal 81-99 [facility] Comment on above: Performed By: #### L 100.0100, L500.4050 #### [facility] [address] [place], [address] Monocytes/100 WBC (Bld) 6.7 % Normal 0-10 [facility] Comment on above: Performed By: #### L 100.0100, L500.4050 #### [facility] [address] [place], [address] Neutrophils/100 WBC (Bld) 46.2 % Low 47-70 [facility] Comment on above: Performed By: #### L 100.0100, L500.4050 #### [facility] [address] [place], [address] Nucleated RBC (Bld) [#/Vol] 0 10*3/uL Normal 0-5 [facility] Comment on above: Performed By: #### L 100.0100, L500.4050 #### [facility] [address] [place], [address] Platelet mean volume (Bld) [Entitic vol] 10.3 fL Normal 6.2-12.0 [facility] Comment on above: Performed By: #### L 100.0100, L500.4050 #### [facility] [address] [place], [address] Platelets (Bld) [#/Vol] 164 10*3/uL Normal 150-450 [facility] Comment on above: Performed By: #### L 100.0100, L500.4050 #### [facility] [address] [place], [address] RBC (Bld) [#/Vol] 4.55 10*6/uL Normal 4.2-5.4 [facility] Comment on above: Performed By: #### L 100.0100, L500.4050 #### [facility] [address] [place], [address] RDW SD 41.9 fl Normal 35.1-43.9 [facility] Comment on above: Performed By: #### L 100.0100, L500.4050 #### [facility] [address] [place], [address] WBC (Bld) [#/Vol] 6.0 10*3/uL Normal 4.4-11.0 [facility] Comment on above: Performed By: #### L 100.0100, L500.4050 #### [facility] [address] [place], [address] Comprehensive Metabolic Prof ilon 07-31-2025 Albumin [Mass/Vol] 4.0 g/dL Normal 3.4-4.8 [facility] Comment on above: Performed By: #### L 100.0100, L500.4050 #### [facility] [address] [place], [address] Albumin/Globulin [Mass ratio] 1.6 {ratio} Normal 0.9-2.4 [facility] Comment on above: Performed By: #### L 100.0100, L500.4050 #### [facility] [address] [place], [address] ALK PHOS 82 U/L Normal 35-104 [facility] Comment on above: Performed By: #### L 100.0100, L500.4050 #### [facility] [address] [place], [address] ALT [Catalytic activity/Vol] 18 U/L Normal <=34 [facility] Comment on above: Performed By: #### L 100.0100, L500.4050 #### [facility] [address] [place], [address] AST [Catalytic activity/Vol] 21 U/L Normal <=31 [facility] Comment on above: Performed By: #### L 100.0100, L500.4050 #### [facility] [address] [place], [address] Bilirubin [Mass/Vol] 0.20 mg/dL Normal 0.00-1.30 [facility] Comment on above: Performed By: #### L 100.0100, L500.4050 #### [facility] [address] [place], [address] BUN/CRE 17.4 RATIO Normal 10-20 [facility] Comment on above: Performed By: #### L 100.0100, L500.4050 #### [facility] [address] [place], [address] Calcium [Mass/Vol] 9.1 mg/dL Normal 7.6-11.0 [facility] Comment on above: Performed By: #### L 100.0100, L500.4050 #### [facility] [address] [place], [address] Chloride [Moles/Vol] 101 mmol/L Normal 98-108 [facility] Comment on above: Performed By: #### L 100.0100, L500.4050 #### [facility] [address] [place], [address] CO2 [Moles/Vol] 27.3 mmol/L Normal 21.0-32.0 [facility] Comment on above: Performed By: #### L 100.0100, L500.4050 #### [facility] [address] [place], [address] Creatinine [Mass/Vol] 0.77 mg/dL Normal 0.70-1.20 [facility] Comment on above: Performed By: #### L 100.0100, L500.4050 #### [facility] [address] [place], [address] ECRCL 91.94 ml/min Normal 50-250 [facility] Comment on above: Performed By: #### L 100.0100, L500.4050 #### [facility] [address] [place], [address] GAP 12 Normal 5-15 [facility] Comment on above: Performed By: #### L 100.0100, L500.4050 #### [facility] [address] [place], [address] GFR/1.73 sq M.predicted among non-blacks MDRD (S/P/Bld) [Vol rate/Area] 87 mL/min/{1.73_m2} Normal >60 [facility] Comment on above: Result Comment: mL/m in/1.73m2 CKD-EPI Creatinine Equation (2020) Performed By: #### L 100.0100, L500.4050 #### [facility] [address] [place], [address] Globulin (S) [Mass/Vol] 2.5 g/dL Normal 2.2-4.2 [facility] Comment on above: Performed By: #### L 100.0100, L500.4050 #### [facility] [address] [place], [address] Glucose [Mass/Vol] 207 mg/dL High 70-99 [facility] Comment on above: Performed By: #### L 100.0100, L500.4050 #### [facility] [address] [place], [address] Potassium [Moles/Vol] 3.8 mmol/L Normal 3.3-5.1 [facility] Comment on above: Performed By: #### L 100.0100, L500.4050 #### [facility] [address] [place], [address] Sodium [Moles/Vol] 140 mmol/L Normal 133-145 [facility] Comment on above: Performed By: #### L 100.0100, L500.4050 #### [facility] [address] [place], [address] T PROT 6.6 g/dL Normal 5.9-8.4 [facility] Comment on above: Performed By: #### L 100.0100, L500.4050 #### [facility] [address] [place], [address] Urea nitrogen [Mass/Vol] 13 mg/dL Normal 4-19 [facility] Comment on above: Performed By: #### L 100.0100, L500.4050 #### [facility] [address] [place], [address] Emergency Department Summary on 07-31-2025 Emergency Department Summary [facility] Medical Records Department [address] [place] [address] Emergency Department Summary 07/31/25 MR#: [id number] Acct: [id number] Name: IRMA STEWART Rep #: [id number] : 1960 65 From: Jose Khoury MD [...] new psychiatrist in July for medication management. [facility] Medical History Fibromyalgia Osteoarthritis DDD (degenerative disc [...] topical TID ##1 4 09/30/23 Rx powder ([facility]) Oxybutynin Chloride [Ditropan Xl] 5 mg [...] Allergy Other Verified 09/30/23 18:56 Haldol) lithium ([place]) Allergy Other Verified 09/30/23 18:56 naproxen sodium [...] Gastrointestinal Gastro (more content not included)... Normal [facility] Urinalysis, Completeon 07-31 EPI,SQUAMOUS 0-5 SEEN Normal - [facility] Comment on above: Order Comment: RITA CTOR TO SPECIFY Performed By: #### L 400.0001 #### [facility] [address] [place], [place], [address] BACTERIA 0 SEEN Normal None Seen [facility] Comment on above: Order Comment: RITA CTOR TO SPECIFY Performed By: #### L 400.0001 #### [facility] [address] [place], [address] Mucus Ql (Urine sed) 0 SEEN Normal [facility] Comment on above: Order Comment: RITA CTOR TO SPECIFY Performed By: #### L 400.0001 #### [facility] [address] [place], [address] RBC 0 SEEN Normal 0-5 [facility] Comment on above: Order Comment: RITA CTOR TO SPECIFY Performed By: #### L 400.0001 #### [facility] [address] [place], [address] WBC 0 SEEN Normal 0-5 [facility] Comment on above: Order Comment: RITA CTOR TO SPECIFY Performed By: #### L 400.0001 #### [facility] [address] [place], [place], [address] CNPNon 07-30-2025 CNPN Nurse Triage (INTMWS ) IRMA STEWART ([id number]) 1960 F Date Time Provider Department 07/30/25 [...] Additional Information on file. Protocols Used Neurologic Vuymwrt-Iaahx-OS Allergies As of Date: 07/30/2025 Noted Allergy [...] a day. (more content not included)... Normal [facility] Urinalysis complete panel (U )on 07-29-2025 Bacteria LM.HPF (Urine sed) [#/Area] Negative Normal Negative [facility] Comment on above: Order Comment: Speci men Type: BLOOD SPECIMEN Ordering Facility: [facility] Address: [address] [place] [address] Performed By: #### 1 989-3 #### [facility] CLIA [id number] [address] [place] [address] [place] Bilirubin Ql (U) Negative Normal Negative [facility] Comment on above: Order Comment: Speci men Type: BLOOD SPECIMEN Ordering Facility: [facility] Address: [address] [place] [address] Performed By: #### 1 989-3 #### [facility] CLIA [id number] [address] [place] [address] [place] Clarity (Unsp spec) Clear Normal Clear [facility] [place] [facility] Comment on above: Order Comment: Speci men Type: BLOOD SPECIMEN Ordering Facility: [facility] Address: [address] [place] [address] Performed By: #### 1 989-3 #### [facility] CLIA [id number] [address] [place] [address] [place] Color (U) Yellow Normal Yellow [facility] Comment on above: Order Comment: Speci men Type: BLOOD SPECIMEN Ordering Facility: [facility] Address: [address] [place] [address] Performed By: #### 1 989-3 #### [facility] CLIA [id number] [address] [place] [address] [place] Epithelial cells LM.HPF (Urine sed) [#/Area] None Seen Normal [facility] Comment on above: Order Comment: Speci men Type: BLOOD SPECIMEN Ordering Facility: [facility] Address: [address] [place] [address] Performed By: #### 1 989-3 #### [facility] CLIA [id number] [address] [place] [address] [place] Glucose Test strip (U) [Mass/Vol] Negative Normal Negative [facility] Comment on above: Order Comment: Speci men Type: BLOOD SPECIMEN Ordering Facility: [facility] Address: [address] [place] [address] Performed By: #### 1 989-3 #### [facility] CLIA [id number] [address] [place] [address] [place] Hemoglobin Ql (U) Negative Normal Negative [facility] Comment on above: Order Comment: Speci men Type: BLOOD SPECIMEN Ordering Facility: [facility] Address: [address] [place] [address] Performed By: #### 1 989-3 #### [facility] CLIA [id number] [address] [place] [address] [place] Hyaline casts (Urine sed) [#/Area] 0 /[LPF] Normal 0 /LPF [facility] Comment on above: Order Comment: Speci men Type: BLOOD SPECIMEN Ordering Facility: [facility] Address: [address] [place] [address] Performed By: #### 1 989-3 #### [facility] CLIA [id number] [address] [place] [address] [place] Ketones Ql (U) Negative Normal Negative [facility] Comment on above: Order Comment: Speci men Type: BLOOD SPECIMEN Ordering Facility: [facility] Address: [address] [place] [address] Performed By: #### 1 989-3 #### [facility] CLIA [id number] [address] [place] [address] [place] Leukocyte esterase Test strip Ql (U) Negative Normal Negative [facility] Comment on above: Order Comment: Speci men Type: BLOOD SPECIMEN Ordering Facility: [facility] Address: [address] [place] [address] Performed By: #### 1 989-3 #### [facility] CLIA [id number] [address] [place] [address] [place] Nitrite Ql (U) Negative Normal Negative [facility] Comment on above: Order Comment: Speci men Type: BLOOD SPECIMEN Ordering Facility: [facility] Address: [address] [place] [address] Performed By: #### 1 989-3 #### [facility] CLIA [id number] [address] [place] [address] [place] pH (U) 6.5 [pH] Normal 5.0-8.0 [facility] Comment on above: Order Comment: Speci men Type: BLOOD SPECIMEN Ordering Facility: [facility] Address: [address] [place] [address] Performed By: #### 1 989-3 #### [facility] CLIA [id number] [address] [place] [address] [place] Protein (U) [Mass/Vol] Negative Normal Negative [facility] Comment on above: Order Comment: Speci men Type: BLOOD SPECIMEN Ordering Facility: [facility] Address: [address] [place] [address] Performed By: #### 1 989-3 #### [facility] CLIA [id number] [address] [place] [address] [place] RBC LM.HPF (Urine sed) [#/Area] 0-2 /HPF Normal 0-2 /HPF [facility] Comment on above: Order Comment: Speci men Type: BLOOD SPECIMEN Ordering Facility: [facility] Address: [address] [place] [address] Performed By: #### 1 989-3 #### [facility] CLIA [id number] [address] [place] [address] [place] Specific gravity (U) [Rel density] 1.015 Normal 1.005-1.030 [facility] Comment on above: Order Comment: Speci men Type: BLOOD SPECIMEN Ordering Facility: [facility] Address: [address] [place] [address] Performed By: #### 1 989-3 #### [facility] CLIA [id number] [address] [place] [address] [place] Urobilinogen Ql (U) 0.2 EU/dL Normal 0.2-1.0 EU/dL [facility] Comment on above: Order Comment: Speci men Type: BLOOD SPECIMEN Ordering Facility: [facility] Address: [address] [place] [address] Performed By: #### 1 989-3 #### [facility] CLIA [id number] [address] [place] [address] [place] WBC LM.HPF (Urine sed) [#/Area] 0-5 /HPF Normal 0-5 /HPF [facility] Comment on above: Order Comment: Speci men Type: BLOOD SPECIMEN Ordering Facility: [facility] Address: [address] [place] [address] Performed By: #### 1 989-3 #### [facility] CLIA [id number] [address] [place] [address] [place] CNOVon 07-20-2025 CNOV Office Visit (INTMWS ) IRMA STEWART ([id number]) 1960 F Date Time Provider Department 07/20/25 [...] 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 We discussed [...] fighting depre (more content not included)... Normal [facility] Ferritin SerPl-mCncon 2024 Ferritin [Mass/Vol] 247.0 ng/mL High 14.7-205.1 [facility] Comment on above: Order Comment: Speci men Type: BLOOD SPECIMENOrdering Facility: [facility] Address: [address] [place] [address] Performed By: #### 5 0190-8, 2276-4 ####[facility] LABCLIA [id number] [place] [address] [place] Iron and Iron binding capaci ty panelon 07-20-2025 Iron [Mass/Vol] 70 ug/dL Normal 41-186 [facility] Comment on above: Order Comment: Speci men Type: BLOOD SPECIMENOrdering Facility: [facility] Address: [address] [place] [address] Performed By: #### 5 0190-8, 2276-4 ####[facility] LABIA [id number] [address] [place] Iron binding capacity [Mass/Vol] 247 ug/dL Normal 232-386 [facility] Comment on above: Order Comment: Speci men Type: BLOOD SPECIMENOrdering Facility: [facility] Address: [address] [place] [address] Performed By: #### 5 0190-8, 6-4 ####[facility] LABIA [id number] [place] [address] [place] Iron/TIBC [Molar ratio] 28.3 % Normal 15.0-57.0 [facility] Comment on above: Order Comment: Speci men Type: BLOOD SPECIMENOrdering Facility: [facility] Address: [address] [place] [address] Performed By: #### 5 0190-8, 6-4 ####[facility] LABIA [id number] [place] [id number] [place] XR KNEE 4V [...] Right TKA is noted. IMPRESSION: Advanced osteoarthrosis Residential Property Tax Appraiser: JADON Transcribe Date/Time: Jul 24 2025 9:37A Dictated by : ANDREW GARCÍA MD This examination was interpreted and the report reviewed and electronically signed by: ANDREW GARCÍA MD on Jul 24 2025 9:38AM EST [id number] Normal [facility] ALBUMIN/CREATININE RATIO, UR INEon 04-17-2025 Albumin DL <= 20 mg/L (U) [Mass/Vol] mg/dL Normal [facility] Comment on above: Order Comment: Speci men Type: URINE SPECIMENOrdering Facility: [facility] Address: [address] [place] [address] Performed By: #### U ACR ####[facility] LABCLIA [id number] [place] [address] [place] Albumin/Creatinine (U) [Mass ratio] Normal [facility] Comment on above: Order Comment: Corky jiménez Type: URINE SPECIMENOrdering Facility: [facility] Address: [address] [place] [address] Result Comment: Not calculated Adult Male and Female Nephrotic Criteria: <30 mg/g is considered normal to mildly increased 30-300 mg/g is considered moderately increased >300 mg/g is considered severely increased KDIGO. (2013). KDIGO 2012 Clinical Practice Guideline for the Evaluation and Management of Chronic Kidney Disease. Official Journal of the International Society of Nephrology, 3(1), 1-150. Performed By: #### U ACR ####[facility] LABCLIA [id number] [place] [address] [place] Creatinine (U) [Mass/Vol] 38.8 mg/dL Normal 20.0-300.0 [facility] Comment on above: Order Comment: Speci men Type: URINE SPECIMENOrdering Facility: [facility] Address: [address] [place] [address] Performed By: #### U ACR ####[facility] LABCLIA [id number] [place] [address] [place] Urinalysis complete panel (U )on 04-17-2025 Bacteria LM.HPF (Urine sed) [#/Area] Negative Normal Negative [facility] Comment on above: Order Comment: Speci men Type: URINE SPECIMEN [facility] Address: [address] [place] [address] Performed By: #### 2 4356-8 #### [facility] LAB CLIA [id number] [address] [place] [address] [place] Bilirubin Ql (U) Negative Normal Negative [facility] Comment on above: Order Comment: Speci men Type: URINE SPECIMEN [facility] Address: [address] [place] [address] Performed By: #### 2 4356-8 #### [facility] LAB CLIA [id number] [address] [place] [address] [place] Clarity (Unsp spec) Clear Normal Clear [facility] Comment on above: Order Comment: Speci men Type: URINE SPECIMEN [facility] Address: [address] [place] [address] Performed By: #### 2 4356-8 #### [facility] CLIA [id number] [address] [place] [address] [place] Color (U) Yellow Normal Yellow [facility] Comment on above: Order Comment: Speci men Type: URINE SPECIMEN [facility] Address: [address] [place] [address] Performed By: #### 2 4356-8 #### [facility] CLIA [id number] [address] [place] [address] [place] Epithelial cells LM.HPF (Urine sed) [#/Area] None Seen Normal [facility] Comment on above: Order Comment: Speci men Type: URINE SPECIMEN [facility] Address: [address] [place] [address] Performed By: #### 2 4356-8 #### [facility] CLIA [id number] [address] [place] [address] [place] Glucose Test strip (U) [Mass/Vol] Negative Normal Negative [facility] Comment on above: Order Comment: Speci men Type: URINE SPECIMEN [facility] Address: [address] [place] [address] Performed By: #### 2 4356-8 #### [facility] CLIA [id number] [address] [place] [address] [place] Hemoglobin Ql (U) Negative Normal Negative [facility] Comment on above: Order Comment: Speci men Type: URINE SPECIMEN [facility] Address: [address] [place] [address] Performed By: #### 2 4356-8 #### [facility] CLIA [id number] [address] [place] [address] [place] Hyaline casts (Urine sed) [#/Area] 0 /[LPF] Normal 0 /LPF [facility] Comment on above: Order Comment: Speci men Type: URINE SPECIMEN [facility] Address: [address] [place] [address] Performed By: #### 2 4356-8 #### [facility] CLIA [id number] [address] [place] [address] [place] Ketones Ql (U) Negative Normal Negative [facility] Comment on above: Order Comment: Speci men Type: URINE SPECIMEN [facility] Address: [address] [place] [address] Performed By: #### 2 4356-8 #### [facility] CLIA [id number] [address] [place] [address] [place] Leukocyte esterase Test strip Ql (U) Negative Normal Negative [facility] Comment on above: Order Comment: Speci men Type: URINE SPECIMEN [facility] Address: [address] [place] [address] Performed By: #### 2 4356-8 #### [facility] CLIA [id number] [address] [place] [address] [place] Nitrite Ql (U) Negative Normal Negative [facility] Comment on above: Order Comment: Speci men Type: URINE SPECIMEN [facility] Address: [address] [place] [address] Performed By: #### 2 4356-8 #### [facility] CLIA [id number] [address] [place] [address] [place] pH (U) 7.0 [pH] Normal <8.5 [facility] Comment on above: Order Comment: Speci men Type: URINE SPECIMEN [facility] Address: [address] [place] [address] Performed By: #### 2 4356-8 #### [facility] CLIA [id number] [address] [place] [address] [place] Protein (U) [Mass/Vol] Negative Normal Negative [facility] Comment on above: Order Comment: Speci men Type: URINE SPECIMEN [facility] Address: [address] [place] [address] Performed By: #### 2 4356-8 #### [facility] CLIA [id number] [address] [place] [address] [place] RBC LM.HPF (Urine sed) [#/Area] 0-2 /HPF Normal 0-2 /HPF [facility] Comment on above: Order Comment: Speci men Type: URINE SPECIMEN [facility] Address: [address] [place] [address] Performed By: #### 2 4356-8 #### [facility] CLIA [id number] [address] [place] [address] [place] Specific gravity (U) [Rel density] 1.010 Normal 1.005-1.030 [facility] Comment on above: Order Comment: Speci men Type: URINE SPECIMEN [facility] Address: [address] [place] [address] Performed By: #### 2 4356-8 #### [facility] CLIA [id number] [address] [place] [address] [place] Urobilinogen Ql (U) 0.2 EU/dL Normal 0.2-1.0 EU/dL [facility] Comment on above: Order Comment: Speci men Type: URINE SPECIMEN [facility] Address: [address] [place] [address] Performed By: #### 2 4356-8 #### [facility] LAB IA [id number] [address] [place] [address] [place] WBC LM.HPF (Urine sed) [#/Area] 0-5 /HPF Normal 0-5 /HPF [facility] Comment on above: Order Comment: Speci men Type: URINE SPECIMEN [facility] Address: [address] [place] [address] Performed By: #### 2 4356-8 #### [facility] CLIA [id number] [address] [place] [address] [place] CBC W Auto Differential pane l (Bld)on 04-16-2025 Basophils (Bld) [#/Vol] 0.06 10*3/uL [facility] Basophils/100 WBC (Bld) 0.9 % [facility] Differential cell count method Nom (Bld) Auto [facility] Eosinophils (Bld) [#/Vol] 0.13 10*3/uL [facility] Eosinophils/100 WBC (Bld) 2 % [facility] Erythrocyte distribution width (RBC) [Ratio] 13 % 11.5 - 15.0 % [facility] Hematocrit (Bld) [Volume fraction] 42.3 % 36.0 - 46.0 % [facility] Hemoglobin (Bld) [Mass/Vol] 13.9 g/dL 11.5 - 15.5 g/dL [facility] Immature granulocytes (Bld) [#/Vol] [facility] Immature granulocytes/100 WBC (Bld) 0.2 % [facility] Lymphocytes (Bld) [#/Vol] 2.71 10*3/uL [facility] Lymphocytes/100 WBC (Bld) 41.7 % [facility] MCH (RBC) [Entitic mass] 30.2 pg 26.0 - 34.[address] [facility] MCHC (RBC) [Mass/Vol] 32.9 g/dL 30.5 - 36.0 g/dL [facility] MCV (RBC) [Entitic vol] 91.8 fL 80.0 - 100.[address] [facility] Monocytes (Bld) [#/Vol] 0.5 10*3/uL [facility] Monocytes/100 WBC (Bld) 7.7 % [facility] Neutrophils (Bld) [#/Vol] 3.09 10*3/uL [facility] Neutrophils/100 WBC (Bld) 47.5 % [facility] Nucleated RBC (Bld) [#/Vol] [facility] Nucleated RBC/100 WBC (Bld) [Ratio] 0 % /[address] [facility] Platelet mean volume (Bld) [Entitic vol] 10.2 fL 9.0 - 12.[address] [facility] Platelets (Bld) [#/Vol] 172 10*3/uL [facility] RBC (Bld) [#/Vol] 4.61 10*6/uL 3.90 - 5.2 0 m/uL [facility] WBC (Bld) [#/Vol] 6.5 10*3/uL [facility] Basophils (Bld) [#/Vol] 0.06 10*3/uL Normal <0.11 [facility] Comment on above: Order Comment: Speci men Type: BLOOD SPECIMEN [facility] Address: [address] [place] [address] Performed By: #### 1 989-3 #### [facility] CLIA [id number] [address] [place] [address] [place] Basophils/100 WBC (Bld) 0.9 % Normal [facility] Comment on above: Order Comment: Speci men Type: BLOOD SPECIMEN [facility] Address: [address] [place] [address] Performed By: #### 1 989-3 #### [facility] CLIA [id number] [address] [place] [address] [place] Differential cell count method Nom (Bld) Auto Normal [facility] Comment on above: Order Comment: Speci men Type: BLOOD SPECIMEN [facility] Address: [address] [place] [address] Performed By: #### 1 989-3 #### [facility] CLIA [id number] [address] [place] [address] [place] Eosinophils (Bld) [#/Vol] 0.13 10*3/uL Normal <0.46 [facility] Comment on above: Order Comment: Speci men Type: BLOOD SPECIMEN [facility] Address: [address] [place] [address] Performed By: #### 1 989-3 #### [facility] CLIA [id number] [address] [place] [address] [place] Eosinophils/100 WBC (Bld) 2.0 % Normal [facility] Comment on above: Order Comment: Speci men Type: BLOOD SPECIMEN [facility] Address: [address] [place] [address] Performed By: #### 1 989-3 #### [facility] CLIA [id number] [address] [place] [address] [place] Erythrocyte distribution width (RBC) [Ratio] 13.0 % Normal 11.5-15.0 [facility] Comment on above: Order Comment: Speci men Type: BLOOD SPECIMEN [facility] Address: [address] [place] [address] Performed By: #### 1 989-3 #### [facility] CLIA [id number] [address] [place] [address] [place] Hematocrit (Bld) [Volume fraction] 42.3 % Normal 36.0-46.0 [facility] Comment on above: Order Comment: Speci men Type: BLOOD SPECIMEN [facility] Address: [address] [place] [address] Performed By: #### 1 989-3 #### [facility] CLIA [id number] [address] [place] [address] [place] Hemoglobin (Bld) [Mass/Vol] 13.9 g/dL Normal 11.5-15.5 [facility] Comment on above: Order Comment: Speci men Type: BLOOD SPECIMEN [facility] Address: [address] [place] [address] Performed By: #### 1 989-3 #### [facility] CLIA [id number] [address] [place] [address] [place] Immature granulocytes (Bld) [#/Vol] 10*3/uL Normal <0.10 [facility] Comment on above: Order Comment: Speci men Type: BLOOD SPECIMEN [facility] Address: [address] [place] [address] Performed By: #### 1 989-3 #### [facility] CLIA [id number] [address] [place] [address] [place] Immature granulocytes/100 WBC (Bld) 0.2 % Normal [facility] Comment on above: Order Comment: Speci men Type: BLOOD SPECIMEN [facility] Address: [address] [place] [address] Performed By: #### 1 989-3 #### [facility] CLIA [id number] [address] [place] [address] [place] Lymphocytes (Bld) [#/Vol] 2.71 10*3/uL Normal 1.00-4.00 [facility] Comment on above: Order Comment: Speci men Type: BLOOD SPECIMEN [facility] Address: [address] [place] [address] Performed By: #### 1 989-3 #### [facility] CLIA [id number] [address] [place] [address] [place] Lymphocytes/100 WBC (Bld) 41.7 % Normal [facility] Comment on above: Order Comment: Speci men Type: BLOOD SPECIMEN [facility] Address: [address] [place] [address] Performed By: #### 1 989-3 #### [facility] CLIA [id number] [address] [place] [address] [place] MCH (RBC) [Entitic mass] 30.2 pg Normal 26.0-34.0 [facility] Comment on above: Order Comment: Speci men Type: BLOOD SPECIMEN [facility] Address: [address] [place] [address] Performed By: #### 1 989-3 #### [facility] CLIA [id number] [address] [place] [address] [place] MCHC (RBC) [Mass/Vol] 32.9 g/dL Normal 30.5-36.0 [facility] Comment on above: Order Comment: Speci men Type: BLOOD SPECIMEN [facility] Address: [address] [place] [address] Performed By: #### 1 989-3 #### [facility] CLIA [id number] [address] [place] [place] [address] [place] MCV (RBC) [Entitic vol] 91.8 fL Normal 80.0-100.0 [facility] Comment on above: Order Comment: Speci men Type: BLOOD SPECIMEN [facility] Address: [address] [place] [address] Performed By: #### 1 989-3 #### [facility] CLIA [id number] [address] [place] [address] [place] Monocytes (Bld) [#/Vol] 0.50 10*3/uL Normal <0.87 [facility] Comment on above: Order Comment: Speci men Type: BLOOD SPECIMEN [facility] Address: [address] [place] [address] Performed By: #### 1 989-3 #### [facility] CLIA [id number] [address] [place] [address] [place] Monocytes/100 WBC (Bld) 7.7 % Normal [facility] Comment on above: Order Comment: Speci men Type: BLOOD SPECIMEN [facility] Address: [address] [place] [address] Performed By: #### 1 989-3 #### [facility] CLIA [id number] [address] [place] [address] [place] Neutrophils (Bld) [#/Vol] 3.09 10*3/uL Normal 1.45-7.50 [facility] Comment on above: Order Comment: Speci men Type: BLOOD SPECIMEN [facility] Address: [address] [place] [address] Performed By: #### 1 989-3 #### [facility] CLIA [id number] [address] [place] [address] [place] Neutrophils/100 WBC (Bld) 47.5 % Normal [facility] Comment on above: Order Comment: Speci men Type: BLOOD SPECIMEN [facility] Address: [address] [place] [address] Performed By: #### 1 989-3 #### [facility] CLIA [id number] [address] [place] [address] [place] Nucleated RBC (Bld) [#/Vol] 10*3/uL Normal <0.01 [facility] Comment on above: Order Comment: Speci men Type: BLOOD SPECIMEN [facility] Address: [address] [place] [address] Performed By: #### 1 989-3 #### [facility] CLIA [id number] [address] [place] [address] [place] Nucleated RBC/100 WBC (Bld) [Ratio] 0.0 /100 WBC Normal [facility] Comment on above: Order Comment: Speci men Type: BLOOD SPECIMEN [facility] Address: [address] [place] [address] Performed By: #### 1 989-3 #### [facility] CLIA [id number] [address] [place] [address] [place] Platelet mean volume (Bld) [Entitic vol] 10.2 fL Normal 9.0-12.7 [facility] Comment on above: Order Comment: Speci men Type: BLOOD SPECIMEN [facility] Address: [address] [place] [address] Performed By: #### 1 989-3 #### [facility] CLIA [id number] [address] [place] [address] [place] Platelets (Bld) [#/Vol] 172 10*3/uL Normal 150-400 [facility] Comment on above: Order Comment: Speci men Type: BLOOD SPECIMEN [facility] Address: [address] [place] [address] Performed By: #### 1 989-3 #### [facility] CLIA [id number] [address] [place] [address] [place] RBC (Bld) [#/Vol] 4.61 10*6/uL Normal 3.90-5.20 [facility] Comment on above: Order Comment: Speclenny jiménez Type: BLOOD SPECIMEN [facility] Address: [address] [place] [address] Performed By: #### 1 989-3 #### [facility] CLIA [id number] [address] [place] [address] [place] WBC (Bld) [#/Vol] 6.50 10*3/uL Normal 3.70-11.00 [facility] Comment on above: Order Comment: Speci men Type: BLOOD SPECIMEN [facility] Address: [address] [place] [address] Performed By: #### 1 989-3 #### [facility] CLIA [id number] [address] [place] [address] [place] CNOVon 04-16-2025 CNOV Office Visit (INTMWS ) IRMA STEWART ([id number]) 1960 F Date Time Provider Department 04/16/25 10:00 AM LALA HARRISON INTMWS During your visit today, we recorded the following information about you: Pulse Respiration Blood pressure Weight 76/minute 16/minute 144/80 117 kg Lala Harrison APRN.EQUAL OPPORTUNITY ASSISTANT 04/16/2025 12:21 PM Signed CC: Patient presents with: Recheck: Follow up multiple concerns HPI Irma Stewart is a 65 year old female who presents today for multiple concerns. Has had these concerns ongoing for quite a while and has bee worked up previously. With her mental health and difficulty staying on topic, getting full history difficult to obtain. Recording using [employer] software for draft documentation of the visit was discussed with the patient/authorized customer solutions representative; all questions welcomed and answered. Patient/authorized customer solutions representative agreed to proceed Paresthesias: - Irma [...] Scheduled to see a new psychiatrist at [facility] in May. Chronic Stress: - Irma [...] PAST MEDICA (more content not included)... Normal [facility] Comprehensive metabolic 2000 panelon 04-16-2025 Albumin [Mass/Vol] 4.3 g/dL Normal 3.9-4.9 [facility] Comment on above: Order Comment: Speci men Type: BLOOD SPECIMENOrdering Facility: [facility] Address: [address] [place] [address] Performed By: #### 2 4323-8, 2132-9 ####[facility] LABCLIA [id number] [place] [address] [place] ALP [Catalytic activity/Vol] 73 U/L Normal 34-123 [facility] Comment on above: Order Comment: Speci men Type: BLOOD SPECIMENOrdering Facility: [facility] Address: [address] [place] [id number] Performed By: #### 2 4323-05, 2132-06 ####[facility] LABCLIA [id number] [address] [address] [place] ALT [Catalytic activity/Vol] 13 U/L Normal 7-38 [facility] Comment on above: Order Comment: Speci men Type: BLOOD SPECIMENOrdering Facility: [facility] Address: [address] [place], [place] [address] Performed By: #### 2 4323-05, 2132-06 ####[facility] LABCLIA [id number] [place] [id number] [place] Anion gap [Moles/Vol] 16 mmol/L High 8-15 [facility] Comment on above: Order Comment: Speci men Type: BLOOD SPECIMENOrdering Facility: [facility] Address: [address] [place] [id number] Performed By: #### 2 4323-05, 2132-06 ####[facility] LABCLIA [id number] [place] [address] [place] AST [Catalytic activity/Vol] 13 U/L Normal 13-35 [facility] Comment on above: Order Comment: Speci men Type: BLOOD SPECIMENOrdering Facility: [facility] Address: [address] [place] [id number] Performed By: #### 2 4323-05, 2132-06 ####[facility] LABCLIA [id number] [place] [id number] [place] Bilirubin [Mass/Vol] 0.2 mg/dL Normal 0.2-1.3 [facility] Comment on above: Order Comment: Speci men Type: BLOOD SPECIMENOrdering Facility: [facility] Address: [address] [place], [place] [address] Performed By: #### 2 8, 2132-06 ####[facility] LABCLIA [id number] [facility] [address] [place] [address] [place] Calcium [Mass/Vol] 9.1 mg/dL Normal 8.5-10.2 [facility] Comment on above: Order Comment: Speci men Type: BLOOD SPECIMENOrdering Facility: [facility] Address: [address] [place], [place] [address] Performed By: #### 2 4323-05, 2132-06 ####[facility] LABCLIA [id number] [facility] [address] [place] [address] [place] Chloride [Moles/Vol] 100 mmol/L Normal 98-107 [facility] Comment on above: Order Comment: Speci men Type: BLOOD SPECIMENOrdering Facility: [facility] Address: [address] [place] [address] Performed By: #### 2 4323-05, 2132-06 ####[facility] LABCLIA [id number] [facility] CENT[facility] [address] [place] [address] [place] CO2 [Moles/Vol] 27 mmol/L Normal 22-30 [facility] Comment on above: Order Comment: Speci men Type: BLOOD SPECIMENOrdering Facility: [facility] Address: [address] [place], [place] [address] Performed By: #### 2 4323-05, 2132-06 ####[facility] LABCLIA [id number] [address] [place] [address] [place] Creatinine [Mass/Vol] 0.72 mg/dL Normal 0.58-0.96 [facility] Comment on above: Order Comment: Speci men Type: BLOOD SPECIMENOrdering Facility: [facility] Address: [address] [place], [place] [address] Performed By: #### 2 43201-02, 2132-06 ####[facility] LABCLIA [id number] [address] [place] [address] [place] Creatinine and Glomerular filtration rate.predicted panel (S/P/Bld) 94 mL/min/1.73m??? Normal >=60 [facility] Comment on above: Order Comment: Corky jiménez Type: BLOOD SPECIMENOrdering Facility: [facility] Address: [address] [place] [address] Result Comment: Arlette mated Glomerular Filtration Rate [...] GFR. Performed By: #### 2 432-8, 2132-06 ####[facility] LABCLIA [id number] [place] [id number] [place] Glucose [Mass/Vol] 136 mg/dL High 74-99 [facility] Comment on above: Order Comment: Corky jiménez Type: BLOOD SPECIMENOrdering Facility: [facility] Address: [address] [place] [address] Result Comment: The [place] Diabetes Association (ADA) provides guidance for cutoff [...] Standards of Medical Care in Diabetes 2016, [place] Diabetes Association. Diabetes Care. 2016.39(Suppl 1). Performed By: #### 2 4323-8, 2132-06 ####[facility] LABCLIA [id number] [place] [id number] [place] Potassium [Moles/Vol] 4.1 mmol/L Normal 3.7-5.1 [facility] Comment on above: Order Comment: Speci men Type: BLOOD SPECIMENOrdering Facility: [facility] Address: [address] [place], [place] [address] Performed By: #### 2 4323-05, 2132-06 ####[facility] LABCLIA [id number] [facility] [id number] [address] [place] Protein [Mass/Vol] 6.7 g/dL Normal 6.3-8.0 [facility] Comment on above: Order Comment: Speci men Type: BLOOD SPECIMENOrdering Facility: [facility] Address: [address] [place] [address] Performed By: #### 2 4323-05, 2132-06 ####[facility] LABCLIA [id number] [facility] [address] [place] [address] [place] Sodium [Moles/Vol] 143 mmol/L Normal 136-144 [facility] Comment on above: Order Comment: Speci men Type: BLOOD SPECIMENOrdering Facility: [facility] Address: [address] [place] [address] Performed By: #### 2 4323-05, 2132-06 ####[facility] LABCLIA [id number] [facility] [address] [place] [address] [place] Urea nitrogen [Mass/Vol] 14 mg/dL Normal 7-21 [facility] Comment on above: Order Comment: Speci men Type: BLOOD SPECIMENOrdering Facility: [facility] Address: [address] [place], [place] [address] Performed By: #### 2 4323-05, 2132-06 ####[facility] LABCLIA [id number] [facility] [id number] [address] [place] Cortis SerPl-mCncon 04-16-20 25 Cortisol [Mass/Vol] 16.4 ug/dL Normal 4.8-19.5 [facility] Comment on above: Order Comment: Speci men Type: BLOOD SPECIMENOrdering Facility: [facility] Address: [address] [place] [address] Result Comment: Prov ided reference range is from 6-10 AM sample collection time. Cortisol Reference Range: 6-10 AM = 4.8-19.5 ug/dL, 4-8 PM = 2.5-11.9 ug/dL Performed By: #### 3 016-3, 3051-0, 3024-7, 2143-6 ####[facility] LABCLIA [id number] [place] [address] [place] HbA1c (Bld)on 04-16-2025 Average glucose Estimated from glycated hemoglobin (Bld) [Mass/Vol] 166 mg/dL Normal [facility] Comment on above: Order Comment: Speci men Type: BLOOD SPECIMEN [facility] Address: [address] [place] [address] Result Comment: eAG: (Estimated average glucose) is a calculated value from HgbA1c and is customer solutions representative of the average blood glucose level in the last 2-3 month period. Performed By: #### 1 989-3 #### [facility] CLIA [id number] [address] [place] [address] [place] HbA1c (Bld) [Mass fraction] 7.4 % High 4.3-5.6 [facility] Comment on above: Order Comment: Speci men Type: BLOOD SPECIMEN [facility] Address: [address] [place] [address] Result Comment: [place] Diabetes Association guidelines indicate that patients with HgbA1c in the range 5.7-6.4% are at increased risk for development of diabetes, and intervention by lifestyle modification may be beneficial. HgbA1c greater or equal to 6.5% is considered diagnostic of diabetes. Performed By: #### 1 989-3 #### [facility] CLIA [id number] [address] [place], [place] [address] [address] [place] T3Free SerPl-mCncon 04-16-20 25 Free T3 [Mass/Vol] 3.3 pg/mL Normal 2.3-4.1 [facility] Comment on above: Order Comment: Speci men Type: BLOOD SPECIMENOrdering Facility: [facility] Address: [address] [place] [address] Performed By: #### 3 016-3, 3051-0, 7, 2143-03 ####[facility] LABCLIA [id number] [place] [address] [place] T4 Free SerPl-mCncon 025 Free T4 [Mass/Vol] 1.1 ng/dL Normal 0.9-1.7 [facility] Comment on above: Order Comment: Speci men Type: BLOOD SPECIMENOrdering Facility: [facility] Address: [address] [place] [address] Performed By: #### 3 016-3, 305-0, 7, 2143-03 ####[facility] LABCLIA [id number] [place] [address] [place] TSH SerPl-aCncon 04-16-2025 TSH Qn 4.360 m[IU]/L High 0.270-4.200 [facility] Comment on above: Order Comment: Speci men Type: BLOOD SPECIMENOrdering Facility: [facility] Address: [address] [place] [address] Performed By: #### 3 016-3, 305-0, 3024-04, 2143-03 ####[facility] LABIA [id number] [place] [address] [place] VALPROIC ACID / DEPAKENEon 0 04-16-2025 Valproate [Mass/Vol] 47 ug/mL Low 50.0 - 100.0 ug/mL [facility] Comment on above: Reference ranges and high/low indicator flags are provided as general guidelines only. The treating physician must determine appropriate target levels/dosing based on the specific clinical situation. Valproate SerPl-mCncon 04-16 Valproate [Mass/Vol] 47.0 ug/mL Low 50.0-100.0 [facility] Comment on above: Order Comment: Corky jiménez Type: BLOOD SPECIMENOrdering Facility: [facility] Address: [address] [place] [address] Result Comment: Refe rence ranges and high/low indicator flags are provided as general guidelines only. The treating physician must determine appropriate target levels/dosing based on the specific clinical situation. Performed By: #### 4 086-5 ####[facility] LABCLIA [id number] [place] [id number] [place] Valproate [Mass/Vol]on 04-16 Interpretation and review of laboratory results Abnormal [facility] Vit B12 SerPl-mCncon 025 Cobalamin (Vitamin B12) [Mass/Vol] 522 pg/mL Normal 232-1245 [facility] Comment on above: Order Comment: Corky jiménez Type: BLOOD SPECIMENOrdering Facility: [facility] Address: [address] [place], [place] [address] [address] Performed By: #### 2 4323-8, 2132-9 ####[facility] LABCLIA [id number] [place] [id number] [place] CNPMariana 04-12-2025 [facility] IRMA STEWART ([id number]) 1960 F Date Time Provider Department 04/12/25 [...] Oral for 30 Days - Insulin [place], Disposable, (BD ULTRAFINE III MINI PEN) 31 [...] 4 hours as needed. - [facility] Use as needed to monitor oxygen level and heart rate - omeprazole (PRILOSEC) 20 mg capsule Take 1 capsule by mouth once daily. - divalproex DR (DEPAKOTE) 500 mg EC tablet Take 500 mg by mouth two times a day. (more content not included)... Normal [facility] 02-26-2025 CNPN Telephone (INTMWS) IRMA STEWART ([id number]) 1960 F Date Time Provider Department 02/26/25 [...] patient with an update. LAZARA Rangel Terri, LACQUER MIXER.SUPERINTENDENT PRESSURE 02/26/2025 3:51 PM Signed Stress test was ordered a year ago by me, not completed due to insurance per record review in [employer]. Sleep medicine order was from Dr. Camila [...] ATC but no answer and voicemail full. [employer] message sent. Gely Rey 03/07/2025 2:39 PM [...] [R09.02] Order(s):CONSULT TO SLEEP MEDICINE - ADULT [[id number]] Order #: [id number]: 1 FUTURE Prescriptions as of 03/10/2025 - [...] 175 mg twice daily. - Insulin [place], Disposable, (BD ULTRAFINE III MINI PEN) 31 [...] PULSE OXIMETE (more content not included)... Normal [facility] CNPNon 01-04-2025 CNPN Telephone (INTMWS) IRMA STEWART ([id number]) 1960 F Date Time Provider Department 01/04/25 [...] and phone Get with reply. Jaime Spencer, LACQUER MIXER.SUPERINTENDENT PRESSURE 01/04/2025 12:56 PM Signed Can send refill [...] Controlled E11.9 Insulin: Yes - Insulin [place], Disposable, (BD ULTRAFINE III MINI PEN) 31 [...] mouth daily at bedtime. - [facility] Use as needed to monitor oxygen level and heart rate - omeprazole (PRILOSEC) 20 mg capsule Take 1 capsule by mouth once daily. - Lancets lancets Test blood sugar(s) 3 times daily. Dx: Type 2 DM - Controlled E11.9 Insulin: Yes - divalproex DR (DEPAKOTE) 500 mg EC tablet Ta (more content not included)... Normal [facility] 12-01-2024 MICHAELN Telephone (INTMWS) IRMA STEWART ([id number]) 1960 F Date Time Provider Department 12/01/24 [...] speak full sentences during call. 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 - PULSE OXIMETER [facility] Use (more content not included)... Normal [facility]-2024 [facility] IRMA STEWART ([id number]) 1960 F Date Time Provider Department 11/11/24 [...] 10/30/24. Patient reports that she called the supervisor park workers in regards to text message. Power Transformer Repairer blocked the number from text. Patient reports [...] of her house when she went to black pickler chair and brother called supervisor park workers." Text from a number patient "believes is [...] Controlled E11.9 Insulin: Yes - Insulin [place], Disposable, (BD ULTRAFINE III MINI PEN) 31 [...] daily. Dx (more content not included)... Normal [facility] 25(OH)D3 SerPl-mCbrinaon 2024 25-hydroxyvitamin D3 [Mass/Vol] 61.8 ng/mL Normal 31.0-80.0 [facility] Comment on above: Order Comment: Speci men Type: BLOOD SPECIMEN [facility] Address: [address] [place] [address] Result Comment: Clas sification of 25 [place] Vitamin D status: Deficiency/Insufficiency: < or = 30 ng/ml. Sufficiency/Optimal Levels: 31-80 ng/mL Toxicity: > 100 ng/mL. Test performed by chemiluminescent immunoassay. Performed By: #### 1 989-3 #### [facility] CLIA [id number] [address] [place] [address] [place] CBC W Auto Differential pane l (Bld)on 11-10-2024 Basophils (Bld) [#/Vol] 0.03 10*3/uL Normal <0.11 [facility] Comment on above: Order Comment: Speci men Type: BLOOD SPECIMENOrdering Facility: [facility] Address: [address] [place] [address] Performed By: #### 5 7021-8 ####[facility] LABCLIA [id number] [place] [address] [place] Basophils/100 WBC (Bld) 0.6 % Normal [facility] Comment on above: Order Comment: Speci men Type: BLOOD SPECIMENOrdering Facility: [facility] Address: [address] [place] [address] Performed By: #### 5 7021-8 ####[facility] LABCLIA [id number] [place] [address] [place] Differential cell count method Nom (Bld) Auto Normal [facility] Comment on above: Order Comment: Speci men Type: BLOOD SPECIMENOrdering Facility: [facility] Address: [address] [place] [address] Performed By: #### 5 7021-8 ####[facility] LABCLIA [id number] [place] [address] [place] Eosinophils (Bld) [#/Vol] 0.06 10*3/uL Normal <0.46 [facility] Comment on above: Order Comment: Speci men Type: BLOOD SPECIMENOrdering Facility: [facility] Address: [address] [place] [address] Performed By: #### 5 7021-8 ####[facility] LABCLIA [id number] [place] [address] [place] Eosinophils/100 WBC (Bld) 1.1 % Normal [facility] Comment on above: Order Comment: Speci men Type: BLOOD SPECIMENOrdering Facility: [facility] Address: [address] [place] [address] Performed By: #### 5 7021-8 ####[facility] LABCLIA [id number] [place] [address] [place] Erythrocyte distribution width (RBC) [Ratio] 12.4 % Normal 11.5-15.0 [facility] Comment on above: Order Comment: Speci men Type: BLOOD SPECIMENOrdering Facility: [facility] Address: [address] [place] [address] Performed By: #### 5 7021-8 ####[facility] LABCLIA [id number] [place] [address] [place] Hematocrit (Bld) [Volume fraction] 42.9 % Normal 36.0-46.0 [facility] Comment on above: Order Comment: Speci men Type: BLOOD SPECIMENOrdering Facility: [facility] Address: [address] [place] [address] Performed By: #### 5 7021-8 ####[facility] LABCLIA [id number] [place] [address] [place] Hemoglobin (Bld) [Mass/Vol] 14.2 g/dL Normal 11.5-15.5 [facility] Comment on above: Order Comment: Speci men Type: BLOOD SPECIMENOrdering Facility: [facility] Address: [address] [place] [address] Performed By: #### 5 7021-8 ####[facility] LABCLIA [id number] [place] [address] [place] Immature granulocytes (Bld) [#/Vol] 10*3/uL Normal <0.10 [facility] Comment on above: Order Comment: Speci men Type: BLOOD SPECIMENOrdering Facility: [facility] Address: [address] [place] [address] Performed By: #### 5 7021-8 ####[facility] LABCLIA [id number] [place] [address] [place] Immature granulocytes/100 WBC (Bld) 0.2 % Normal [facility] Comment on above: Order Comment: Speci men Type: BLOOD SPECIMENOrdering Facility: [facility] Address: [address] [place] [address] Performed By: #### 5 7021-8 ####[facility] LABCLIA [id number] [place] [address] [place] Lymphocytes (Bld) [#/Vol] 1.95 10*3/uL Normal 1.00-4.00 [facility] Comment on above: Order Comment: Speci men Type: BLOOD SPECIMENOrdering Facility: [facility] Address: [address] [place] [address] Performed By: #### 5 7021-8 ####[facility] LABCLIA [id number] [place] [address] [place] Lymphocytes/100 WBC (Bld) 36.6 % Normal [facility] Comment on above: Order Comment: Speci men Type: BLOOD SPECIMENOrdering Facility: [facility] Address: [address] [place] [address] Performed By: #### 5 7021-8 ####[facility] LABCLIA [id number] [place] [address] [place] MCH (RBC) [Entitic mass] 30.9 pg Normal 26.0-34.0 [facility] Comment on above: Order Comment: Speci men Type: BLOOD SPECIMENOrdering Facility: [facility] Address: [address] [place] [address] Performed By: #### 5 7021-8 ####[facility] LABIA [id number] [place] [address] [place] MCHC (RBC) [Mass/Vol] 33.1 g/dL Normal 30.5-36.0 [facility] Comment on above: Order Comment: Speci men Type: BLOOD SPECIMENOrdering Facility: [facility] Address: [address] [place] [address] Performed By: #### 5 7021-8 ####[facility] LABIA [id number] [place] [address] [place] MCV (RBC) [Entitic vol] 93.3 fL Normal 80.0-100.0 [facility] Comment on above: Order Comment: Speci men Type: BLOOD SPECIMENOrdering Facility: [facility] Address: [address] [place] [address] Performed By: #### 5 7021-8 ####[facility] LABCLIA [id number] [place] [address] [place] Monocytes (Bld) [#/Vol] 0.40 10*3/uL Normal <0.87 [facility] Comment on above: Order Comment: Speci men Type: BLOOD SPECIMENOrdering Facility: [facility] Address: [address] [place] [address] Performed By: #### 5 7021-8 ####[facility] LABCLIA [id number] [place] [address] [place] Monocytes/100 WBC (Bld) 7.5 % Normal [facility] Comment on above: Order Comment: Speci men Type: BLOOD SPECIMENOrdering Facility: [facility] Address: [address] [place] [address] Performed By: #### 5 7021-8 ####[facility] LABCLIA [id number] [place] [address] [place] Neutrophils (Bld) [#/Vol] 2.88 10*3/uL Normal 1.45-7.50 [facility] Comment on above: Order Comment: Speci men Type: BLOOD SPECIMENOrdering Facility: [facility] Address: [address] [place] [address] Performed By: #### 5 7021-8 ####[facility] LABIA [id number] [place] [address] [place] Neutrophils/100 WBC (Bld) 54.0 % Normal [facility] Comment on above: Order Comment: Speci men Type: BLOOD SPECIMENOrdering Facility: [facility] Address: [address] [place] [address] Performed By: #### 5 7021-8 ####[facility] LABIA [id number] [place] [address] [place] Nucleated RBC (Bld) [#/Vol] 10*3/uL Normal <0.01 [facility] Comment on above: Order Comment: Speci men Type: BLOOD SPECIMENOrdering Facility: [facility] Address: [address] [place] [address] Performed By: #### 5 7021-8 ####[facility] LABCLIA [id number] [place] [address] [place] Nucleated RBC/100 WBC (Bld) [Ratio] 0.0 /100 WBC Normal [facility] Comment on above: Order Comment: Speci men Type: BLOOD SPECIMENOrdering Facility: [facility] Address: [address] [place] [address] Performed By: #### 5 7021-8 ####[facility] LABIA [id number] [place] [address] [place] Platelet mean volume (Bld) [Entitic vol] 11.0 fL Normal 9.0-12.7 [facility] Comment on above: Order Comment: Speci men Type: BLOOD SPECIMENOrdering Facility: [facility] Address: [address] [place] [address] Performed By: #### 5 7021-8 ####[facility] LABIA [id number] [place] [address] [place] Platelets (Bld) [#/Vol] 163 10*3/uL Normal 150-400 [facility] Comment on above: Order Comment: Speci men Type: BLOOD SPECIMENOrdering Facility: [facility] Address: [address] [place] [address] Performed By: #### 5 7021-8 ####[facility] LABIA [id number] [place] [address] [place] RBC (Bld) [#/Vol] 4.60 10*6/uL Normal 3.90-5.20 [facility] Comment on above: Order Comment: Speci men Type: BLOOD SPECIMENOrdering Facility: [facility] Address: [address] [place] [address] Performed By: #### 5 7021-8 ####[facility] LABIA [id number] [place] [address] [place] WBC (Bld) [#/Vol] 5.33 10*3/uL Normal 3.70-11.00 [facility] Comment on above: Order Comment: Speci men Type: BLOOD SPECIMENOrdering Facility: [facility] Address: [address] [place] [address] Performed By: #### 5 7021-8 ####[facility] LABJARVIS [id number] [address] [place] CNOVon 11-10-2024 CNOV Office Visit (INTMWS ) IRMA STEWART ([id number]) 1960 F Date Time Provider Department 11/10/24 3:20 PM JAIME SPENCER INTMWS During your visit today, we recorded the following information about you: Pulse Blood pressure Weight 75/minute 124/80 118 kg Jaime Spencer, JENN.SUPERINTENDENT PRESSURE 11/10/2024 4:38 PM Signed SUBJECTIVE: Diabetic Foot [...] Diarrhea Haldol [Haloperidol] Other: See Comments Headache/hallucinations [place] Other: See Comments Hallucinations Metformin Diarrhea Neurontin [...] - Controlled E11.9 Insulin: Yes Insulin [place], Disposable, (BD ULTRAFINE III MINI PEN) 31 [...] cream Ap (more content not included)... Normal [facility] Comprehensive metabolic 2000 panelon 11-10-2024 Albumin [Mass/Vol] 4.3 g/dL Normal 3.9-4.9 [facility] Comment on above: Order Comment: Speci men Type: BLOOD SPECIMEN [facility] Address: [address] [place] [address] Performed By: #### 1 989-3 #### [facility] CLIA [id number] [address] [place] [address] [place] [address] [place] ALP [Catalytic activity/Vol] 80 U/L Normal 34-123 [facility] Comment on above: Order Comment: Speci men Type: BLOOD SPECIMEN [facility] Address: [address] [place] [id number] Performed By: #### 1 989-3 #### [facility] CLIA [id number] [address] [place] [address] [place] ALT [Catalytic activity/Vol] 11 U/L Normal 7-38 [facility] Comment on above: Order Comment: Speci men Type: BLOOD SPECIMEN [facility] Address: [address] [place] [address] Performed By: #### 1 989-3 #### [facility] CLIA [id number] [address] [place] [address] [place] Anion gap [Moles/Vol] 13 mmol/L Normal 8-15 [facility] Comment on above: Order Comment: Speci men Type: BLOOD SPECIMEN [facility] Address: [address] [place] [address] Performed By: #### 1 989-3 #### [facility] CLIA [id number] [address] [place] [address] [place] AST [Catalytic activity/Vol] 13 U/L Normal 13-35 [facility] Comment on above: Order Comment: Speci men Type: BLOOD SPECIMEN [facility] Address: [address] [place] [address] Performed By: #### 1 989-3 #### [facility] CLIA [id number] [address] [place] [address] [place] Bilirubin [Mass/Vol] 0.2 mg/dL Normal 0.2-1.3 [facility] Comment on above: Order Comment: Speci men Type: BLOOD SPECIMEN [facility] Address: [address] [place] [address] Performed By: #### 1 989-3 #### [facility] CLIA [id number] [id number] [address] [place] Calcium [Mass/Vol] 9.4 mg/dL Normal 8.5-10.2 [facility] Comment on above: Order Comment: Speci men Type: BLOOD SPECIMEN [facility] Address: [address] [place] [address] Performed By: #### 1 989-3 #### [facility] CLIA [id number] [address] [place] [address] [place] Chloride [Moles/Vol] 103 mmol/L Normal 98-107 [facility] Comment on above: Order Comment: Speci men Type: BLOOD SPECIMEN [facility] Address: [address] [place] [address] Performed By: #### 1 989-3 #### [facility] CLIA [id number] [address] [place] [address] [place] CO2 [Moles/Vol] 25 mmol/L Normal 22-30 [facility] Comment on above: Order Comment: Speci men Type: BLOOD SPECIMEN Ordering Facility: [facility] Address: [address] [place] [address] Performed By: #### 1 989-3 #### [facility] CLIA [id number] [address] [place] [address] [place] Creatinine [Mass/Vol] 0.64 mg/dL Normal 0.58-0.96 [facility] Comment on above: Order Comment: Speci men Type: BLOOD SPECIMEN Ordering Facility: [facility] Address: [address] [place] [address] Performed By: #### 1 989-3 #### [facility] CLIA [id number] [address] [place] [address] [place] Creatinine and Glomerular filtration rate.predicted panel (S/P/Bld) 99 mL/min/1.73m??? Normal >=60 [facility] Comment on above: Order Comment: Speci men Type: BLOOD SPECIMEN Ordering Facility: [facility] Address: [address] [place] [address] Result Comment: Arlette mated Glomerular Filtration Rate [...] GFR. Performed By: #### 1 989-3 #### [facility] CLIA [id number] [address] [place] [address] [place] Glucose [Mass/Vol] 163 mg/dL High 74-99 [facility] Comment on above: Order Comment: Corky jiménez Type: BLOOD SPECIMEN Ordering Facility: [facility] Address: [address] [place] [address] Result Comment: The [place] Diabetes Association (ADA) provides guidance for cutoff [...] Standards of Medical Care in Diabetes 2016, [place] Diabetes Association. Diabetes Care. 2016.39(Suppl 1). Performed By: #### 1 989-3 #### [facility] CLIA [id number] [address] [place] [address] [place] Potassium [Moles/Vol] 4.3 mmol/L Normal 3.7-5.1 [facility] Comment on above: Order Comment: Corky jiménez Type: BLOOD SPECIMEN Ordering Facility: [facility] Address: [address] [place] [address] Performed By: #### 1 989-3 #### [facility] CLIA [id number] [address] [place] [address] [place] Protein [Mass/Vol] 6.5 g/dL Normal 6.3-8.0 [facility] Comment on above: Order Comment: Speci men Type: BLOOD SPECIMEN Ordering Facility: [facility] Address: [address] [place] [address] Performed By: #### 1 989-3 #### [facility] CLIA [id number] [address] [place] [address] [place] Sodium [Moles/Vol] 141 mmol/L Normal 136-144 [facility] Comment on above: Order Comment: Speci men Type: BLOOD SPECIMEN Ordering Facility: [facility] Address: [address] [place] [address] Performed By: #### 1 989-3 #### [facility] CLIA [id number] [address] [place] [address] [place] Urea nitrogen [Mass/Vol] 12 mg/dL Normal 7-21 [facility] Comment on above: Order Comment: Speci men Type: BLOOD SPECIMEN Ordering Facility: [facility] Address: [address] [place] [address] Performed By: #### 1 989-3 #### [facility] CLIA [id number] [address] [place] [address] [place] Ferritin SerPl-mCncon 2024 Ferritin [Mass/Vol] 191.0 ng/mL Normal 14.7-205.1 [facility] Comment on above: Order Comment: Speci men Type: BLOOD SPECIMENOrdering Facility: [facility] Address: [address] [place] [address] Performed By: #### 5 0190-8, 96846-5, 3016-3, 2276-4 ####[facility] [id number] [place] [address] [place] HbA1c (Bld)on 11-10-2024 Average glucose Estimated from glycated hemoglobin (Bld) [Mass/Vol] 169 mg/dL Normal [facility] Comment on above: Order Comment: Corky jiménez Type: BLOOD SPECIMENOrdering Facility: [facility] Address: [address] [place] [address] Result Comment: eAG: (Estimated average glucose) is a calculated value from HgbA1c and is customer solutions representative of the average blood glucose level in the last 2-3 month period. Performed By: #### 5 5454-3 ####[facility] [id number] [place] [address] [place] HbA1c (Bld) [Mass fraction] 7.5 % High 4.3-5.6 [facility] Comment on above: Order Comment: Corky jiménez Type: BLOOD SPECIMENOrdering Facility: [facility] Address: [address] [place] [address] Result Comment: [place] Diabetes Association guidelines indicate that patients with HgbA1c in the range 5.7-6.4% are at increased risk for development of diabetes, and intervention by lifestyle modification may be beneficial. HgbA1c greater or equal to 6.5% is considered diagnostic of diabetes. Performed By: #### 5 5454-3 ####[facility] [id number] [place] [address] [place] Iron and Iron binding capaci ty panelon 11-10-2024 Iron [Mass/Vol] 69 ug/dL Normal 41-186 [facility] Comment on above: Order Comment: Corky jiménez Type: BLOOD SPECIMEN Ordering Facility: [facility] Address: [address] [place] [address] Performed By: #### 1 989-3 #### [facility] CLIA [id number] [address] [place] [address] [place] Iron binding capacity [Mass/Vol] 276 ug/dL Normal 232-386 [facility] Comment on above: Order Comment: Corky jiménez Type: BLOOD SPECIMEN Ordering Facility: [facility] Address: [address] [place] [address] Performed By: #### 1 989-3 #### [facility] CLIA [id number] [address] [place] [address] [place] Iron/TIBC [Molar ratio] 25.0 % Normal 15.0-57.0 [facility] Comment on above: Order Comment: Speci men Type: BLOOD SPECIMEN Ordering Facility: [facility] Address: [address] [place] [address] Performed By: #### 1 989-3 #### [facility] CLIA [id number] [address] [place] [address] [place] Lipid 1996 panelon 5 Cholesterol [Mass/Vol] 190 mg/dL Normal <200 [facility] Comment on above: Order Comment: Speci men Type: BLOOD SPECIMEN Ordering Facility: [facility] Address: [address] [place] [address] Result Comment: <200 mg/dL, Desirable 200-239 mg/dL, Borderline high >239 mg/dL, High Performed By: #### 1 989-3 #### [facility] CLIA [id number] [address] [place] [address] [place] Cholesterol in HDL [Mass/Vol] 57 mg/dL Normal >39 [facility] Comment on above: Order Comment: Speci men Type: BLOOD SPECIMEN Ordering Facility: [facility] Address: [address] [place] [address] Result Comment: 40-5 9 mg/dL, Acceptable >59 mg/dL, High: Negative risk factor for coronary heart disease <40 mg/dL, Low: Positive risk factor for coronary heart disease Performed By: #### 1 989-3 #### [facility] CLIA [id number] [address] [place] [address] [place] Cholesterol in LDL [Mass/Vol] 94 mg/dL Normal <100 [facility] Comment on above: Order Comment: Speci men Type: BLOOD SPECIMEN Ordering Facility: [facility] Address: [address] [place] [address] Result Comment: <100 mg/dL, Optimal 100-129 mg/dL, Near optimal/above optimal 130-159 mg/dL, Borderline high 160-189 mg/dL, High >189 mg/dL, Very high Secondary prevention optimal LDL Cholesterol levels are recommended to be < 70 mg/dL Performed By: #### 1 989-3 #### [facility] CLIA [id number] [address] [place], [place] [address] [address] [place] Cholesterol in LDL/Cholesterol in HDL [Mass ratio] 1.65 {ratio} Normal <2.54 [facility] Comment on above: Order Comment: Speci men Type: BLOOD SPECIMEN Ordering Facility: [facility] Address: [address] [place] [address] Result Comment: Refe rence: 1. National Cholesterol Education Program ATP III Guideline At-A-Glance Quick Desk Reference: National Heart, Lung, and Blood [place]. National Institutes of Health. 2001: NIH Publication No. 01-3305. 2. An International Atherosclerosis Society position paper: global recommendations for the management of dyslipidemia: executive summary, Atherosclerosis. 2014: 232(2):410-413. Performed By: #### 1 989-3 #### [facility] CLIA [id number] [address] [place] [address] [place] Cholesterol in VLDL [Mass/Vol] 39 mg/dL High <30 [facility] Comment on above: Order Comment: Speci men Type: BLOOD SPECIMEN Ordering Facility: [facility] Address: [address] [place] [address] Performed By: #### 1 989-3 #### [facility] CLIA [id number] [address] [place] [address] [place] Cholesterol non HDL [Mass/Vol] 133 mg/dL High <130 [facility] Comment on above: Order Comment: Theoodrai men Type: BLOOD SPECIMEN Ordering Facility: [facility] Address: [address] [place] [address] Result Comment: <130 mg/dL, Optimal 130-159 mg/dL, Near optimal/above optimal 160-189 mg/dL, Borderline high 190-219 mg/dL, High >219 mg/dL, Very high Secondary prevention optimal non HDL Cholesterol levels are recommended to be <100 mg/dL Performed By: #### 1 989-3 #### [facility] CLIA [id number] [address] [place] [address] [place] Cholesterol.total/Ch olesterol in HDL [Mass ratio] 3.33 {ratio} Normal <5.10 [facility] Comment on above: Order Comment: Speci men Type: BLOOD SPECIMEN Ordering Facility: [facility] Address: [address] [place] [address] Performed By: #### 1 989-3 #### [facility] CLIA [id number] [address] [place] [address] [place] FASTING TIME 12 hrs Normal [facility] Comment on above: Order Comment: Speci men Type: BLOOD SPECIMEN Ordering Facility: [facility] Address: [address] [place] [address] Performed By: #### 1 989-3 #### [facility] CLIA [id number] [address] [place] [address] [place] Triglyceride [Mass/Vol] 196 mg/dL High <150 [facility] Comment on above: Order Comment: Speci men Type: BLOOD SPECIMEN Ordering Facility: [facility] Address: [address] [place] [address] Result Comment: <150 mg/dL, Normal 150-199 mg/dL, Borderline high 200-499 mg/dL, High >499 mg/dL, Very high Performed By: #### 1 989-3 #### [facility] CLIA [id number] [address] [place] [address] [place] TSH SerPl-aCncon 11-10-2024 TSH Qn 2.800 m[IU]/L Normal 0.270-4.200 [facility] Comment on above: Order Comment: Speci men Type: BLOOD SPECIMENOrdering Facility: [facility] Address: [address] [place] [address] Performed By: #### 5 0190-8, 41946-4, 3016-3, 2276-4 ####[facility] [id number] [place] [address] [place] Vit B12 [facility] 14-2 025 Cobalamin (Vitamin B12) [Mass/Vol] 1857 pg/mL High 232-1245 [facility] Comment on above: Order Comment: Speci men Type: BLOOD SPECIMEN Ordering Facility: [facility] Address: [address] [place] [address] Performed By: #### 1 989-3 #### [facility] CLIA [id number] [address] [place] [address] [place] NITRIC OXIDE, EXHALEDon 07-[address] [facility] CBC W Auto Differential pane l (Bld)on 02-27-2024 Basophils (Bld) [#/Vol] 0.03 10*3/uL [facility] Basophils/100 WBC (Bld) 0.6 % [facility] Differential cell count method Nom (Bld) Auto [facility] Eosinophils (Bld) [#/Vol] 0.07 10*3/uL [facility] Eosinophils/100 WBC (Bld) 1.4 % [facility] Erythrocyte distribution width (RBC) [Ratio] 12.3 % 11.5 - 15.0 % [facility] Hematocrit (Bld) [Volume fraction] 42.2 % 36.0 - 46.0 % [facility] Hemoglobin (Bld) [Mass/Vol] 13.7 g/dL 11.5 - 15.5 g/dL [facility] Immature granul[facility] (Bld) [#/Vol[facility] Immature granulocytes/100 WBC (Bld) 0.2 % [facility] Lymphocytes (Bld) [#/Vol] 1.84 10*3/uL [facility] Lymphocytes/100 WBC (Bld) 37.2 % [facility] MCH (RBC) [Entitic mass] 31.1 pg 26.0 - 34.[address] [facility] MCHC (RBC) [Mass/Vol] 32.5 g/dL 30.5 - 36.0 g/dL [facility] MCV (RBC) [Entitic vol] 95.9 fL 80.0 - 100.[address] [facility] Monocytes (Bld) [#/Vol] 0.36 10*3/uL NINF [facility] Monocytes/100 WBC (Bld) 7.3 % [facility] Neutrophils (Bld) [#/Vol] 2.64 10*3/uL [facility] Neutrophils/100 WBC (Bld) 53.3 % [facility] Nucleated RBC (Bld) [#/Vol] NINF [facility] Nucleated RBC/100 WBC (Bld) [Ratio] 0.0 % /[address] [facility] Platelet mean volume (Bld) [Entitic vol] 10.4 fL 9.0 - 12.[address] [facility] Platelets (Bld) [#/Vol] 163 10*3/uL [facility] RBC (Bld) [#/Vol] 4.40 10*6/uL 3.90 - 5.2 0 m/uL [facility] WBC (Bld) [#/Vol] 4.95 10*3/uL [facility] Comprehensive metabolic 2000 panelon 02-27-2024 Albumin [Mass/Vol] 4.1 g/dL 3.9 - 4.9 g/dL [facility] ALP [Catalytic activity/Vol] 75 U/L 34 - 123 U/L [facility] ALT [Catalytic activity/Vol] 14 U/L 7 - 38 U/L [facility] Anion gap [Moles/Vol] 11 mmol/L 9 - 18 mmol/L [facility] AST [Catalytic activity/Vol] 18 U/L 13 - 35 U/L [facility] Bilirubin [Mass/Vol] 0.4 mg/dL 0.2 - 1 .3 mg/dL [facility] Calcium [Mass/Vol] 9.0 mg/dL 8.5 - 10. 2 mg/dL [facility] Chloride [Moles/Vol] 100 mmol/L 97 - 10 5 mmol/L [facility] CO2 [Moles/Vol] 29 mmol/L 22 - 30 mmol/L [facility] Creatinine [Mass/Vol] 0.78 mg/dL 0.58 - 0.96 mg/dL [facility] GFR/1.73 sq M.predicted among non-blacks MDRD (S/P/Bld) [Vol rate/Area] 86 mL/min/{1.73_m2} - PINF [facility] Comment on above: Estimated Glomerular Filtration [...] 173 mg/dL High 74 - 99 mg/dL [facility] Comment on above: The [place] Diabete s Association (ADA) provides guidance for [...] Standards of Medical Care in Diabetes 2016, [place] Diabetes Association. Diabetes Care. 2016.39(Suppl 1). Interpretation and review of laboratory results Abnormal [facility] Potassium [Moles/Vol] 4.5 mmol/L 3.7 - 5.1 mmol/L [facility] Protein [Mass/Vol] 6.6 g/dL 6.3 - 8.0 g/dL [facility] Sodium [Moles/Vol] 140 mmol/L 136 - 144 mmol/L [facility] Urea nitrogen [Mass/Vol] 15 mg/dL 7 - 21 mg/dL [facility] THYROID STIMULATING HORMONEo n 02-27-2024 TSH Qn 1.660 m[IU]/L [facility] TSH Qnon 02-27-2024 Interpretation and review of laboratory results Normal [facility] OXIMETRY WITH AMBULATIONon 0 12-06-[address] [facility] XR Finger - right AP and Lat eral and obliqueon 11-25-2023 IMPRESSION: The osseous structures are intact. There are no marginal erosions. Mild narrowing of the first CMC joint with small osteophytes. No other significant abnormality. Residential Property Tax Appraiser: JADON Transcribe Date/Time: Nov 25 2023 7:13P Dictated by : BRANDON BECERRA MD This examination was interpreted and the report reviewed and electronically signed by: BRANDON BECERRA MD on Nov 25 2023 7:14PM [facility] DIVISION OF RADIOLOGY * * *Final Report* * * DATE OF EXAM: Nov 25 2023 7:12PM WOX [id number] - XR DIGIT 3V FRONTAL/LAT/OBL RT / PROCEDURE REASON: Pain of right thumb * * * * Physician Interpretation * * * * EXAMINATION: XR DIGIT 3V FRONTAL/LAT/OBL RT HISTORY: pain for the last 6 months, brushes her cat allot cannot marketing co op with thumb no inj Pain of right thumb . TECHNIQUE: XR DIGIT 3V FRONTAL/LAT/OBL RT Laterality: RIGHT Number of different views (projections): 3 M: XB_1 COMPARISON: None RESULT/ DIVISION OF RADIOLOGY Provider, [facility] - 11/25/2023 * * *Final Report* * * DATE OF EXAM: Nov 25 2023 7:12PM WOX [id number] - XR DIGIT 3V FRONTAL/LAT/OBL RT / PROCEDURE REASON: Pain of right thumb * * * * Physician Interpretation * * * * EXAMINATION: XR DIGIT 3V FRONTAL/LAT/OBL RT HISTORY: pain for the last 6 months, brushes her cat allot cannot marketing co op with thumb no inj Pain of right thumb . TECHNIQUE: XR DIGIT 3V FRONTAL/LAT/OBL RT Laterality: RIGHT Number of different views (projections): 3 M: XB_1 COMPARISON: None RESULT/ IMPRESSION IMPRESSION: The osseous structures are intact. There are no marginal erosions. Mild narrowing of the first CMC joint with small osteophytes. No other significant abnormality. Residential Property Tax Appraiser: JADON Transcribe Date/Time: Nov 25 2023 7:13P Dictated by : BRANDON BECERRA MD This examination was interpreted and the report reviewed and electronically signed by: BRANDON BECERRA MD on Nov 25 2023 7:14PM EST [facility] Radiology Study observation (narrative) [facility] XR Finger - right AP and Lat eral and obliqueOrdered By: [facility]cf Provider on 11-25-[address] [facility] XR Chest PA and Lateralon IMPRESSION: No acute radiographic abnormality. Residential Property Tax Appraiser: JADON Transcribe Date/Time: Nov 04 2023 3:01P Dictated by : JORGE SCHWARTZ MD This examination was interpreted and the report reviewed and electronically signed by: JORGE SCHWARTZ MD on Nov 04 2023 3:02PM [facility] DIVISION OF RADIOLOGY * * *Final Report* [...] soft tissues: Unremarkable. DIVISION OF RADIOLOGY Provider, [facility] - 11/04/2023 * * *Final Report* [...] Unremarkable. IMPRESSION IMPRESSION: No acute radiographic abnormality. Residential Property Tax Appraiser: JADON Transcribe Date/Time: Nov 04 2023 3:01P Dictated by : JORGE SCHWARTZ MD This examination was interpreted and the report reviewed and electronically signed by: JORGE SCHWARTZ MD on Nov 04 2023 3:02PM [facility] Radiology Study observation (narrative) [facility] XR Chest PA and LateralOrder ed By: Ccf Provider on 11-04-[address] [facility] CBC W Auto Differential pane l (Bld)on 07-12-2023 Basophils (Bld) [#/Vol] 0.03 10*3/uL <0.11 k/uL [facility] Basophils/100 WBC (Bld) 0.7 % [facility] Differential cell count method Nom (Bld) Auto [facility] Eosinophils (Bld) [#/Vol] 0.09 10*3/uL <0.46 k/uL [facility] Eosinophils/100 WBC (Bld) 2.2 % [facility] Erythrocyte distribution width (RBC) [Ratio] 12.5 % 11.5 - 15.0 % [facility] Hematocrit (Bld) [Volume fraction] 42.8 % 36.0 - 46.0 % [facility] Hemoglobin (Bld) [Mass/Vol] 13.9 g/dL 11.5 - 15.5 g/dL [facility] Immature granulocytes (Bld) [#/Vol] <0.10 k/uL [facility] Immature granulocytes/100 WBC (Bld) 0.2 % [facility] Lymphocytes (Bld) [#/Vol] 1.52 10*3/uL 1.00 - 4.00 k/uL [facility] Lymphocytes/100 WBC (Bld) 36.4 % [facility] MCH (RBC) [Entitic mass] 31.3 pg 26.0 - 34.[address] [facility] MCHC (RBC) [Mass/Vol] 32.5 g/dL 30.5 - 36.0 g/dL [facility] MCV (RBC) [Entitic vol] 96.4 fL 80.0 - 100.[address] [facility] Monocytes (Bld) [#/Vol] 0.28 10*3/uL <0.87 k/uL [facility] Monocytes/100 WBC (Bld) 6.7 % [facility] Neutrophils (Bld) [#/Vol] 2.25 10*3/uL 1.45 - 7.50 k/uL [facility] Neutrophils/100 WBC (Bld) 53.8 % [facility] Nucleated RBC (Bld) [#/Vol] <0.01 k/uL [facility] Nucleated RBC/100 WBC (Bld) [Ratio] 0.0 /[address] [facility] Platelet mean volume (Bld) [Entitic vol] 11.3 fL 9.0 - 12.[address] [facility] Platelets (Bld) [#/Vol] 144 10*3/uL Low 150 - 400 k/uL [facility] RBC (Bld) [#/Vol] 4.44 10*6/uL 3.90 - 5.2 0 m/uL [facility] WBC (Bld) [#/Vol] 4.18 10*3/uL 3.70 - 11. 00 k/uL [facility] ESR Westergren method (Bld) [Velocity]on 07-12-2023 ESR (Bld) [Velocity] 10 mm/h 0 - 20 mm/hr [facility] HEMOGLOBIN A1C (POC)on 07-12 HbA1c (Bld) [Mass fraction] 8.4 % Abnormal 4.2 - 5.6 % [facility] UA DIP, URINE (POC)on 2022 BILIRUBIN UA (POCT) Small Abnormal Negative [facility] CLARITY UA (POCT) Clear [facility] COLOR UA (POCT) Yellow [facility] GLUCOSE UA (POCT) >=1000 Abnormal Negative mg/dL [facility] Hemoglobin Ql (U) Negative Negative [facility] KETONE UA (POCT) 80 mg/dL Abnormal Negative mg/dL [facility] LEUKOCYTES UA (POCT) Negative Negative [facility] NITRITE UA (POCT) Negative Negative [facility] PH UA (POCT) 5.5 4.5 - 8.[address] [facility] Protein Ql (U) Trace Abnormal Negative mg/dL [facility] SPECIFIC GRAVITY UA (POCT) 1.025 1.005 - 1.[address] [facility] UROBILINOGEN UA (POCT) 0.2 E.U./dL Normal E.U./dL [facility] XR KNEE GENERAL 4V AP BOTH/P A BOTH/LAT/MERC BILATERALon 03-26-[address] [facility] XR Knee - bilateral 4 Viewso n 03-26-2023 IMPRESSION: 1. No acute osseous abnormality right knee and left knee. 2. Right knee frontal arthroplasty. 3. Tricompartmental left knee osteoarthritis 4. Suboptimal joint space centering frontal weightbearing imaging Residential Property Tax Appraiser: JADON Transcribe Date/Time: Mar 26 2023 7:15P Dictated by : LATISHA ISAAC MD This examination was interpreted and the report reviewed and electronically signed by: LATISHA ISAAC MD on Mar 26 2023 7:23PM [facility] DIVISION OF RADIOLOGY * * *Final Report* [...] but otherwise maintained. DIVISION OF RADIOLOGY [facility] * * *Final [...] Suboptimal joint space centering frontal weightbearing imaging Residential Property Tax Appraiser: [facility] Transcribe Date/Time: Mar 26 2023 7:15P Dictated by : LATISHA ISAAC MD This examination was interpreted and the report reviewed and electronically signed by: LATISHA ISAAC MD on Mar 26 2023 7:23PM EST [facility] Radiology Study observation (narrative) [facility] XR Knee - bilateral 4 ViewsO rdered By: [facility]cf Provider on 03-26-[address] [facility] XR Lumbar spine 3 Viewson IMPRESSION: Lumbar spine degenerative changes as described above. Residential Property Tax Appraiser: [facility] Transcribe Date/Time: Feb 26 2023 9:54A Dictated by : JORGE SCHWARTZ MD This examination was interpreted and the report reviewed and electronically signed by: JORGE SCHWARTZ MD on Feb 26 2023 9:56AM [facility] DIVISION OF RADIOLOGY * * *Final Report* [...] spine are presented. FINDINGS: There are five xwz-ibm-yfypjgk lumbar vertebrae. No fracture or subluxations are noted. There appears be L2-3 mild disc space narrowing. There is mild osteophyte formation, with facet arthrosis. Kissing spine noted on lateral view. DIVISION OF RADIOLOGY Provider, [facility] - 02/26/2023 * * *Final Report* [...] spine are presented. FINDINGS: There are five acq-ndo-djwatic lumbar vertebrae. No fracture or subluxations are noted. There appears be L2-3 mild disc space narrowing. There is mild osteophyte formation, with facet arthrosis. Kissing spine noted on lateral view. IMPRESSION IMPRESSION: Lumbar spine degenerative changes as described above. Residential Property Tax Appraiser[facility] Transcribe Date/Time: Feb 26 2023 9:54A Dictated by : JORGE SCHWARTZ MD This examination was interpreted and the report reviewed and electronically signed by: JORGE SCHWARTZ MD on Feb 26 2023 9:56AM EST [facility] XR Lumbar spine 3 ViewsOrder ed By: [facility]cf Provider on 02-26-[address] [facility] XR Lumbar spine 3 Viewson Radiology Study observation (narrative) [facility] XR FOOT GENERAL 3V AP/LAT/OB L LEFTon 10-09-[address] [facility] .Auto Diffon 08-31-2020 Ammonia (P) [Mass/Vol] 0.50 10 3/mcL Normal 0.15-1.00 [facility] ([place]) Comment on above: Performed By: #### C BC, ADIFF, ANEU, CMP, GFR #### [address] [address] Basophils (Bld) [#/Vol] 0.10 10 3/mcL Normal 0.00-0.19 [facility] ([place]) Comment on above: Performed By: #### C BC, ADIFF, ANEU, CMP, GFR #### [id number] [place], [place] [address] Basophils/100 WBC (Bld) 0.9 % Normal 0.0-2.5 [facility] ([place]) Comment on above: Performed By: #### C BC, ADIFF, ANEU, CMP, GFR #### [address] [address] Eosinophils (Bld) [#/Vol] 0.10 10 3/mcL Normal 0.00-0.40 [facility] ([place]) Comment on above: Performed By: #### C BC, ADIFF, ANEU, CMP, GFR #### [address] [address] Eosinophils/100 WBC (Bld) 0.9 % Normal 0.0-7.0 [facility] ([place]) Comment on above: Performed By: #### C BC, ADIFF, ANEU, CMP, GFR #### [address] [address] Lymphocytes (Bld) [#/Vol] 2.70 10 3/mcL Normal 0.77-3.85 [facility] ([place]) Comment on above: Performed By: #### C BC, ADIFF, ANEU, CMP, GFR #### [address] [address] Lymphocytes/100 WBC (Bld) 36.7 % Normal 10.0-50.0 [facility] ([place] Comment on above: Performed By: #### C BC, ADIFF, ANEU, CMP, GFR #### [address] [address] Monocytes/100 WBC (Bld) 7.2 % Normal 1.7-13.0 [facility] ([place] Comment on above: Performed By: #### C BC, ADIFF, ANEU, CMP, GFR #### [address] [address] Neutrophils/100 WBC (Bld) 54.3 % Normal 37.0-80.0 [facility] ([place] Comment on above: Performed By: #### C BC, ADIFF, ANEU, CMP, GFR #### [address] [address] .GFRon 11-04-2020 GFR 146 ml/min/1.73sqm Normal [facility] ([place]) Comment on above: Result Comment: GFR Population [...] C BC, ADIFF, ANEU, CMP, GFR #### [address] [address] GFR Non- 121 ml/min/1.73sqm Normal [facility] ([place]) Comment on above: Result Comment: GFR Population [...] C BC, ADIFF, ANEU, CMP, GFR #### [address] [address] .NEUABSon 08-31-2020 Neutrophils (Bld) [#/Vol] 4.00 10 3/mcL Normal 2.85-6.16 [facility] ([place] Comment on above: Performed By: #### C BC, ADIFF, ANEU, CMP, GFR #### [address] [address] CBCon 08-31-2020 Erythrocyte distribution width (RBC) [Ratio] 15.2 % High 11.5-14.5 [facility] ([place] Comment on above: Performed By: #### C BC, ADIFF, ANEU, CMP, GFR #### [place] [id number] Hematocrit (Bld) [Volume fraction] 40.7 % Normal 37.0-47.0 [facility] ([place] Comment on above: Performed By: #### C BC, ADIFF, ANEU, CMP, GFR #### [place] [address] [id number] Hemoglobin (Bld) [Mass/Vol] 13.4 G/dL Normal 12.0-16.0 [facility] ([place] Comment on above: Performed By: #### C BC, ADIFF, ANEU, CMP, GFR #### [place] [id number] MCH (RBC) [Entitic mass] 31.6 pg High 27.0-31.2 [facility] ([place] Comment on above: Performed By: #### C BC, ADIFF, ANEU, CMP, GFR #### [address] [address] MCHC (RBC) [Mass/Vol] 33.0 G/dL Normal 33.0-37.0 [facility] ([place] Comment on above: Performed By: #### C BC, ADIFF, ANEU, CMP, GFR #### [address] [address] MCV (RBC) [Entitic vol] 95.9 fL High 80.0-94.0 [facility] ([place] Comment on above: Performed By: #### C BC, ADIFF, ANEU, CMP, GFR #### [place] [id number] Platelet mean volume (Bld) [Entitic vol] 8.8 fL Normal 7.4-10.4 [facility] ([place] Comment on above: Performed By: #### C BC, ADIFF, ANEU, CMP, GFR #### [address] [address] Platelets (Bld) [#/Vol] 259 10 3/mcL Normal 130-400 [facility] ([place] Comment on above: Performed By: #### C BC, ADIFF, ANEU, CMP, GFR #### [address] [address] RBC (Bld) [#/Vol] 4.25 10 6/mcL Normal 4.20-5.40 [facility] ([place]) Comment on above: Performed By: #### C BC, ADIFF, ANEU, CMP, GFR #### [address] [address] WBC (Bld) [#/Vol] 7.40 10 3/mcL Normal 4.60-10.80 [facility] ([place]) Comment on above: Performed By: #### C BC, ADIFF, ANEU, CMP, GFR #### [address] [address] CMPon 08-31-2020 Albumin [Mass/Vol] 3.1 G/dL Low 3.5-5.0 [facility] ([place]) Comment on above: Performed By: #### C BC, ADIFF, ANEU, CMP, GFR #### [address] [address] Albumin/Globulin [Mass ratio] 0.9 {ratio} Low 1.1-2.5 [facility] ([place] Comment on above: Performed By: #### C BC, ADIFF, ANEU, CMP, GFR #### [address] [address] ALP [Catalytic activity/Vol] 51 U/L Normal 40-135 [facility] ([place] Comment on above: Performed By: #### C BC, ADIFF, ANEU, CMP, GFR #### [address] [address] ALT [Catalytic activity/Vol] 15 U/L Normal 14-59 [facility] ([place] Comment on above: Performed By: #### C BC, ADIFF, ANEU, CMP, GFR #### [address] [address] AST [Catalytic activity/Vol] 29 U/L Normal 10-40 [facility] ([place] Comment on above: Performed By: #### C BC, ADIFF, ANEU, CMP, GFR #### [address] [address] Bili Total 0.4 mg/dL Normal 0.2-1.0 [facility] ([place]) Comment on above: Result Comment: Use of this assay is not recommended for patients undergoing treatment with eltrombopag due to the potential for falsely elevated results. Performed By: #### C BC, ADIFF, ANEU, CMP, GFR #### [address] [address] Calcium [Mass/Vol] 8.3 mg/dL Low 8.4-10.2 [facility] ([place]) Comment on above: Performed By: #### C BC, ADIFF, ANEU, CMP, GFR #### [address] [address] Chloride [Moles/Vol] 104 mmol/L Normal 98-107 [facility] ([place] Comment on above: Performed By: #### C BC, ADIFF, ANEU, CMP, GFR #### [address] [address] CO2 [Moles/Vol] 31 mmol/L High 22-29 [facility] ([place] Comment on above: Performed By: #### C BC, ADIFF, ANEU, CMP, GFR #### [address] [address] Creatinine [Mass/Vol] 0.52 mg/dL Low 0.55-1.02 [facility] ([place] Comment on above: Performed By: #### C BC, ADIFF, ANEU, CMP, GFR #### [address] [address] Electrolyte Balance 5.0 mEq/L Normal [facility] ([place]) Comment on above: Performed By: #### C BC, ADIFF, ANEU, CMP, GFR #### [address] [address] Globulin (S) [Mass/Vol] 3.4 G/dL Normal [facility] ([place] Comment on above: Performed By: #### C BC, ADIFF, ANEU, CMP, GFR #### [address] [address] Glucose [Mass/Vol] 135 mg/dL High 70-105 [facility] ([place] Comment on above: Performed By: #### C BC, ADIFF, ANEU, CMP, GFR #### [address] [address] Potassium [Moles/Vol] 5.0 mmol/L Normal 3.5-5.1 [facility] ([place] Comment on above: Performed By: #### C BC, ADIFF, ANEU, CMP, GFR #### [address] [address] Protein [Mass/Vol] 6.5 G/dL Normal 6.4-8.2 [facility] ([place] Comment on above: Performed By: #### C BC, ADIFF, ANEU, CMP, GFR #### [address] [address] Sodium [Moles/Vol] 140 mmol/L Normal 136-145 [facility] ([place] Comment on above: Performed By: #### C BC, ADIFF, ANEU, CMP, GFR #### [address] [address] Urea nitrogen [Mass/Vol] 12 mg/dL Normal 7-18 [facility] ([place] Comment on above: Performed By: #### C BC, ADIFF, ANEU, CMP, GFR #### [address] [address] Urea nitrogen/Creatinine [Mass ratio] 23 ratio Normal 7-27 [facility] ([place]) Comment on above: Performed By: #### C BC, ADIFF, ANEU, CMP, GFR #### [id number] [place], [place] [address] Vital Signs Date Time Vital Sign Value Performing Clinician Facility 08-17-2025 17:59-0400 Diastolic Blood Pressure Non-Invasive 62 mm[Hg] ASHLEY MARTIN MD [facility] 08-17-2025 17:59-0400 Heart rate 75 /min ASHLEY MARTIN MD [facility] 08-17-2025 17:59-0400 Systolic Blood Pressure Non-Invasive 126 mm[Hg] ASHLEY MARTIN MD [facility] 08-17-2025 17:21-0400 Body height 162.6 cm ASHLEY MARTIN MD [facility] 08-17-2025 17:21-0400 Body temperature 98.42 [degF] ASHLEY MARTIN MD [facility] 08-17-2025 17:21-0400 Body weight 114 kg ASHLEY MARTIN MD [facility] 08-17-2025 17:21-0400 Diastolic Blood Pressure Non-Invasive 73 mm[Hg] ASHLEY MARTIN MD [facility] 08-17-2025 17:21-0400 Heart rate 92 /min ASHLEY MARTIN MD [facility] 08-17-2025 17:21-0400 Respiratory rate 20 /min ASHLEY MARTIN MD [facility] 08-17-2025 17:21-0400 Systolic Blood Pressure Non-Invasive 144 mm[Hg] ASHLEY MARTIN MD [facility] 04-16-2025 10:04-0400 Body mass index (BMI) [Ratio] 44.29 kg/m2 Lala Older [employer].EQUAL OPPORTUNITY ASSISTANT Work Phone: [facility] 04-16-2025 10:04-0400 Body weight 117.03 kg Lala Older [employer].EQUAL OPPORTUNITY ASSISTANT Work Phone: [facility] 04-16-2025 10:04-0400 Diastolic blood pressure 80 mm[Hg] Lala Older [employer].EQUAL OPPORTUNITY ASSISTANT Work Phone: [facility] 04-16-2025 10:04-0400 Heart rate 76 /min Lala Older [employer].EQUAL OPPORTUNITY ASSISTANT Work Phone: [facility] 04-16-2025 10:04-0400 Respiratory rate 16 /min Lala Older [employer]ER.EQUAL OPPORTUNITY ASSISTANT Work Phone: [facility] 04-16-2025 10:04-0400 SaO2% (BldA) [Mass fraction] 96 % Older [employer] M[employer]ER.EQUAL OPPORTUNITY ASSISTANT Work Phone: [facility] 04-16-2025 10:04-0400 Systolic blood pressure 144 mm[Hg] Lala Older [employer] M[employer]ER.EQUAL OPPORTUNITY ASSISTANT Work Phone: [facility] 11-10-2024 15:50-0500 Diastolic blood pressure 80 mm[Hg] Jaime Spencer [employer]ER.SUPERINTENDENT PRESSURE Work Phone: [facility] 11-10-2024 15:50-0500 Systolic blood pressure 124 mm[Hg] Jaime Spencer [employer]ER.SUPERINTENDENT PRESSURE Work Phone: [facility] 11-10-2024 15:49-0500 Body mass index (BMI) [Ratio] 44.65 kg/m2 Jaime Spencer [employer].SUPERINTENDENT PRESSURE Work Phone: [facility] 11-10-2024 15:49-0500 Body weight 118 kg Jaime Spencer [employer]ER.SUPERINTENDENT PRESSURE Work Phone: [facility] 11-10-2024 15:49-0500 Heart rate 75 /min Jaime Spencer [employer].SUPERINTENDENT PRESSURE Work Phone: [facility] 05-06-2024 17:04-0400 Body mass index (BMI) [Ratio] 44.97 kg/m2 Lala Older [employer] M[employer]ER.EQUAL OPPORTUNITY ASSISTANT Work Phone: [facility] 05-06-2024 17:04-0400 Body weight 118.84 kg Lala Older [employer]AC[employer] M[employer]ER.EQUAL OPPORTUNITY ASSISTANT Work Phone: [facility] 05-06-2024 17:04-0400 Diastolic blood pressure 80 mm[Hg] Lala Older [employer] M[employer]ER.EQUAL OPPORTUNITY ASSISTANT Work Phone: [facility] 05-06-2024 17:04-0400 Heart rate 80 /min Lala Older [employer]AC[employer] M[employer]ER.EQUAL OPPORTUNITY ASSISTANT Work Phone: [facility] 05-06-2024 17:04-0400 Respiratory rate 16 /min Lala Older [employer] M[employer]ER.EQUAL OPPORTUNITY ASSISTANT Work Phone: [facility] 05-06-2024 17:04-0400 SaO2% (BldA) [Mass fraction] 93 % Lala Older [employer]AC[employer] M[employer]ER.EQUAL OPPORTUNITY ASSISTANT Work Phone: [facility] 05-06-2024 17:04-0400 Systolic blood pressure 122 mm[Hg] Lala Older [employer] M[employer]ER.EQUAL OPPORTUNITY ASSISTANT Work Phone: [facility] 04-29-2024 14:03-0400 Body mass index (BMI) [Ratio] 44.29 kg/m2 Pulm Wstr Work Phone: [facility] 04-29-2024 14:03-0400 Body weight 117.03 kg Pulm Wstr Work Phone: [facility] 04-29-2024 14:01-0400 Body mass index (BMI) [Ratio] 44.29 kg/m2 Monserrat Peng PA-C Work Phone: [facility] 04-29-2024 14:01-0400 Body weight 117.03 kg Monserrat Peng PA-C Work Phone: [facility] 04-29-2024 14:01-0400 Diastolic blood pressure 74 mm[Hg] Monserrat Peng PA-C Work Phone: [facility] 04-29-2024 14:01-0400 Heart rate 85 /min Monserrat Peng PA-C Work Phone: [facility] 04-29-2024 14:01-0400 Respiratory rate 14 /min Monserrat Fordeone PA-C Work Phone: [facility] 04-29-2024 14:01-0400 SaO2% (BldA) [Mass fraction] 92 % Monserrat Fordeone PA-C Work Phone: [facility] 04-29-2024 14:01-0400 Systolic blood pressure 122 mm[Hg] Monserrat Fordeone PA-C Work Phone: [facility] 02-27-2024 14:35-0400 Body mass index (BMI) [Ratio] 44.11 kg/m2 Jaime Spencer [employer]ER.SUPERINTENDENT PRESSURE Work Phone: [facility] 02-27-2024 14:35-0400 Body weight 116.57 kg Jaime Spencer [employer] M[employer]ER.SUPERINTENDENT PRESSURE Work Phone: [facility] 02-27-2024 14:35-0400 Diastolic blood pressure 74 mm[Hg] Jaime Spencer [employer] M[employer]ER.SUPERINTENDENT PRESSURE Work Phone: [facility] 02-27-2024 14:35-0400 Heart rate 73 /min Jaime Spencer [employer]ER.SUPERINTENDENT PRESSURE Work Phone: [facility] 02-27-2024 14:35-0400 Respiratory rate 16 /min Jaime Spencer [employer]ER.SUPERINTENDENT PRESSURE Work Phone: [facility] 02-27-2024 14:35-0400 Systolic blood pressure 111 mm[Hg] Jaime Spencer [employer]ER.SUPERINTENDENT PRESSURE Work Phone: [facility] 12-06-2023 14:50-0500 Body height 163.8 cm Pulm Wstr Work Phone: [facility] 12-06-2023 14:50-0500 Body weight 117.03 kg Pulm Wstr Work Phone: [facility] 12-06-2023 14:50-0500 Heart rate 76 /min Pulm Wstr Work Phone: [facility] 12-06-2023 14:50-0500 Respiratory rate 16 /min Pulm Wstr Work Phone: [facility] 12-06-2023 14:50-0500 SaO2% (BldA) [Mass fraction] 96 % Pulm Wstr Work Phone: [facility] 08-09-2023 14:00-0400 Body weight 113.85 kg Jaime Spencer [employer]ER.SUPERINTENDENT PRESSURE Work Phone: [facility] 08-09-2023 14:00-0400 Diastolic blood pressure 83 mm[Hg] [facility] [employer]ER.SUPERINTENDENT PRESSURE Work Phone: [facility] 08-09-2023 14:00-0400 Heart rate 78 /min [facility] [employer] M[employer]ER.SUPERINTENDENT PRESSURE Work Phone: [facility] 08-09-2023 14:00-0400 Systolic blood pressure 113 mm[Hg] [facility] LAC[employer]ER M[employer]ER.SUPERINTENDENT PRESSURE Work Phone: [facility] 07-15-2023 02:40-0400 Diastolic Blood Pressure Non-Invasive [address] MORGAN BENJAMIN MD [facility] 07-15-2023 02:40-0400 Heart rate 92 /min DR MORGAN BENJAMIN MD [facility] 07-15-2023 02:40-0400 Reason For Taking VItal Signs DR MORGAN BENJAMIN MD [facility] 07-15-2023 02:40-0400 Respiratory rate 20 /min DR MORGAN BENJAMIN MD [facility] 07-15-2023 02:40-0400 Systolic Blood Pressure Non-Invasive [address] MORGAN BENJAMIN MD [facility] 07-15-2023 01:44-0400 Body temperature 97.88 [degF] DR MORGAN BENJAMIN MD [facility] 07-15-2023 01:44-0400 Diastolic Blood Pressure Non-Invasive [address] MORGAN BENJAMIN MD [facility] 07-15-2023 01:44-0400 Heart rate 100 /min DR MORGAN BENJAMIN MD [facility] 07-15-2023 01:44-0400 Respiratory rate 20 /min DR MORGAN BENJAMIN MD [facility] 07-15-2023 01:44-0400 Systolic Blood Pressure Non-Invasive [address] MORGAN BENJAMIN MD [facility] 07-12-2023 10:48-0400 Body temperature 97.3 [degF] Lala Older [employer] M[employer].EQUAL OPPORTUNITY ASSISTANT Work Phone: [facility] 07-12-2023 10:48-0400 Body weight 114.13 kg Lala Older [employer]AC[employer] M[employer].EQUAL OPPORTUNITY ASSISTANT Work Phone: [facility] 07-12-2023 10:48-0400 Diastolic blood pressure 74 mm[Hg] Lala Older [employer] M[employer]ER.EQUAL OPPORTUNITY ASSISTANT Work Phone: [facility] 07-12-2023 10:48-0400 Heart rate 110 /min Lala Older [employer]AC[employer] M[employer]ER.EQUAL OPPORTUNITY ASSISTANT Work Phone: [facility] 07-12-2023 10:48-0400 Respiratory rate 16 /min Lala Older [employer]AC[employer] M[employer]ER.EQUAL OPPORTUNITY ASSISTANT Work Phone: [facility] 07-12-2023 10:48-0400 SaO2% (BldA) [Mass fraction] 98 % Lala Older [employer]AC[employer] M[employer]ER.EQUAL OPPORTUNITY ASSISTANT Work Phone: [facility] 07-12-2023 10:48-0400 Systolic blood pressure 120 mm[Hg] Lala Older [employer] M[employer]ER.EQUAL OPPORTUNITY ASSISTANT Work Phone: [facility] 06-29-2023 20:32-0400 Body temperature 98.6 [degF] DR AIDAN ROBLES DO [facility] 06-29-2023 20:32-0400 Diastolic Blood Pressure Non-Invasive [address] AIDAN ROBLES DO [facility] 06-29-2023 20:32-0400 Heart rate 87 /min DR AIDAN ROBLES DO [facility] 06-29-2023 20:32-0400 Respiratory rate 20 /min DR AIDAN ROBLES DO [facility] 06-29-2023 20:32-0400 Systolic Blood Pressure Non-Invasive [address] AIDAN ROBLES DO [facility] 05-23-2023 15:00-0400 Diastolic blood pressure 77 mm[Hg] Thom Golias PT Work Phone: [facility] 05-23-2023 15:00-0400 Heart rate 74 /min Thom Golias PT Work Phone: [facility] 05-23-2023 15:00-0400 Systolic blood pressure 120 mm[Hg] Thom Golias PT Work Phone: [facility] 03-26-2023 18:15-0400 Body temperature 97.59 [degF] Gavi Praisler-Wood [employer] M[employer]ER.EQUAL OPPORTUNITY ASSISTANT Work Phone: [facility] 03-26-2023 18:15-0400 Diastolic blood pressure 78 mm[Hg] Gavi Praisler-Wood [employer] M[employer]ER.EQUAL OPPORTUNITY ASSISTANT Work Phone: [facility] 03-26-2023 18:15-0400 Heart rate 88 /min Gavi Praisler-Wood L[employer] M[employer]ER.EQUAL OPPORTUNITY ASSISTANT Work Phone: [facility] 03-26-2023 18:15-0400 Respiratory rate 16 /min Gavi Praisler-Wood L[employer] M[employer]ER.EQUAL OPPORTUNITY ASSISTANT Work Phone: [facility] 03-26-2023 18:15-0400 SaO2% (BldA) [Mass fraction] 94 % Gavi Praisler-Wood L[employer] M[employer]ER.EQUAL OPPORTUNITY ASSISTANT Work Phone: [facility] 03-26-2023 18:15-0400 Systolic blood pressure 128 mm[Hg] Gavi Norwood [employer]AC[employer] M[employer]ER.EQUAL OPPORTUNITY ASSISTANT Work Phone: [facility] 01-23-2023 19:15-0400 Body height 160 cm Monik Hackett MD Work Phone: [facility] 01-23-2023 19:15-0400 Body temperature 96.1 [degF] Monik Hackett MD Work Phone: [facility] 01-23-2023 19:15-0400 Body weight 116.12 kg Monik Hackett MD Work Phone: [facility] 01-23-2023 19:15-0400 Diastolic blood pressure 64 mm[Hg] Monik Hackett MD Work Phone: [facility] 01-23-2023 19:15-0400 Heart rate 81 /min Monik Hackett MD Work Phone: [facility] 01-23-2023 19:15-0400 Respiratory rate 16 /min Monik Hackett MD Work Phone: [facility] 01-23-2023 19:15-0400 SaO2% (BldA) [Mass fraction] 94 % Monik Hackett MD Work Phone: [facility] 01-23-2023 19:15-0400 Systolic blood pressure 118 mm[Hg] Monik Hackett MD Work Phone: [facility] 06-27-2022 16:54-0400 Body height 160 cm Monik Hackett MD Work Phone: [facility] 06-27-2022 16:54-0400 Body temperature 97 [degF] Monik Hackett MD Work Phone: [facility] 06-27-2022 16:54-0400 Body weight 119.75 kg Monik Hackett MD Work Phone: [facility] 06-27-2022 16:54-0400 Diastolic blood pressure 74 mm[Hg] Monik Hackett MD Work Phone: [facility] 06-27-2022 16:54-0400 Heart rate 74 /min Monik Hackett MD Work Phone: [facility] 06-27-2022 16:54-0400 Respiratory rate 16 /min Monik Hackett MD Work Phone: [facility] 06-27-2022 16:54-0400 SaO2% (BldA) [Mass fraction] 96 % Monik Hackett MD Work Phone: [facility] 06-27-2022 16:54-0400 Systolic blood pressure 124 mm[Hg] Monik Hackett MD Work Phone: [facility] 05-30-2022 16:20-0400 Body weight 122.92 kg Trixie Srinivasa [employer]ER.EQUAL OPPORTUNITY ASSISTANT Work Phone: [facility] 05-30-2022 16:20-0400 Diastolic blood pressure 84 mm[Hg] Trixie Srinivasa [employer]AC[employer] M[employer]ER.EQUAL OPPORTUNITY ASSISTANT Work Phone: [facility] 05-30-2022 16:20-0400 Heart rate 74 /min Trixie Srinivasa [employer]AC[employer] M[employer]ER.EQUAL OPPORTUNITY ASSISTANT Work Phone: [facility] 05-30-2022 16:20-0400 Respiratory rate 16 /min Trixie Srinivasa [employer]AC[employer] M[employer]ER.EQUAL OPPORTUNITY ASSISTANT Work Phone: [facility] 05-30-2022 16:20-0400 SaO2% (BldA) [Mass fraction] 92 % Trixie Srinivasa [employer]AC[employer] M[employer]ER.EQUAL OPPORTUNITY ASSISTANT Work Phone: [facility] 05-30-2022 16:20-0400 Systolic blood pressure 136 mm[Hg] Trixie Srinivasa [employer] M[employer]ER.EQUAL OPPORTUNITY ASSISTANT Work Phone: [facility] Encounters Encounter Date Encounter Type Care Provider Facility Start: 02-09-2026 [place] [place]: 09-03-2025 End: 09-03-2025 ambulatory MONIK HACKETT Facility:[facility] Start: 08-25-[address] [facility] Facility:[facility] Start: 08-25-2025 End: 08-25-[address] [facility] Facility:[facility] Start: 08-20-2025 End: 08-20-[address] [facility] Facility:[facility] Start: 08-20-2025 End: 08-20-2025 ambulatory LALA OLDER Facility:[facility] Start: 08-17-2025 End: 08-17-2025 Emergency department patient visit ASHLEY MARTIN MD [facility] Start: 08-02-2025 End: 08-02-2025 [facility] Start: 07-31-2025 End: 07-31-2025 Emergency department patient visit Jose Khoury Facility:[facility] Start: 07-20-2025 End: 07-20-[address] [facility] Facility:[facility] Start: 07-20-2025 End: 07-20-[address] [facility] Facility:[facility] Start: 06-14-2025 End: 06-14-2025 Refill Lala Older [employer].EQUAL OPPORTUNITY ASSISTANT Work Phone: [facility] Comment on above: Med Change Request Start: 05-18-2025 End: 05-19-2025 Refill Monik Hackett MD Work Phone: [facility] Comment on above: Refill Request Start: 05-07-2025 End: 05-07-2025 Refill Lala Older [employer].EQUAL OPPORTUNITY ASSISTANT Work Phone: [facility] Comment on above: Med Change Request Start: 04-26-2025 End: 04-27-2025 Refill Monik Hackett MD Work Phone: [facility] Comment on above: Refill Request Start: 04-19-2025 End: 06-19-2025 Follow-up encounter Lala Harrison [employer] M[employer]ER.EQUAL OPPORTUNITY ASSISTANT Work Phone: [facility] [place] Start: 04-16-2025 End: 04-16-[address] [facility] Facility:[facility] Start: 04-16-2025 End: 04-16-2025 Office outpatient visit 25 minutes Lala Harrison APRN.CNP Work Phone: [facility] [place] Comment on above: Dizziness (Primary D x); Tinnitus of both ears; Controlled type 2 diabetes mellitus without complication, with long-term current use of insulin ([facility]); Other chronic pain; Weight gain; Paresthesia of bilateral legs; Insomnia, unspecified type; Schizophrenia, unspecified type ([facility]); Panic disorder without agoraphobia; Medication management Start: 04-16-2025 End: 04-16-2025 [facility] Facility:[facility] Start: 04-12-2025 End: 04-12-2025 Telephone encounter Monik [...] Monik Hackett MD Work Phone: [facility] [place] Comment on above: Order Request Start: 02-23-2025 End: 02-23-2025 Refill Monik Hackett MD Work Phone: [facility] [place] Comment on above: Refill Request Start: 02-08-2025 End: 02-10-2025 Refill Monik Hackett MD Work Phone: [facility] [place] Comment on above: Refill Request Start: 01-20-2025 End: 02-01-2025 Refill Lala Harrison APRN.CNP Work Phone: [facility] [place] Comment on above: Refill Request Start: 01-04-2025 End: 01-05-2025 Telephone encounter Monik Hackett MD Work Phone: [facility] [place] Comment on above: Refill Request; Medi cation Problem Refill Request Start: 12-07-2024 End: 12-08-2024 Refill Monik Hackett MD Work Phone: [facility] [place] Comment on above: Refill Request Start: 12-01-2024 End: 12-01-2024 Telephone encounter Monik Hackett MD Work Phone: [facility] [place] Comment on above: Patient Update Start: 11-11-2024 End: 11-13-2024 Telephone encounter Oscar Olivarez INSTRUCTION DEAN Navigation Start: 11-10-2024 End: 11-10-2024 [facility] Facility:[facility] Start: 11-10-2024 End: 11-10-[address] [facility] Facility:[facility] Start: 11-10-2024 End: 11-10-2024 Office outpatient visit 25 minutes Jaime Spencer APRN.CNS Work Phone: [facility] [place] Comment on above: Panic disorder witho ut agoraphobia (Primary Dx); Moderate episode of recurrent major depressive disorder (HCC); Insomnia, unspecified type; Controlled type 2 diabetes mellitus without complication, with long-term current use of insulin (HCC); Burning sensation; Fibromyalgia; Other fatigue; Generalized pain Start: 11-03-2024 End: 11-04-2024 Refill Monik Hackett MD Work Phone: Internal Medicine [place] Comment on above: Refill Request; Lab Orders Start: 09-22-2024 End: 09-25-2024 ambulatory Monik Hackett MD Work Phone: Internal Medicine [facility] Start: 08-20-2024 End: 08-20-2024 Refill Monik Hackett MD Work Phone: Internal Medicine [place] Comment on above: Refill Request Start: 08-11-2024 End: 08-12-2024 Refill Susan Rea LACQUER MIXER.EQUAL OPPORTUNITY ASSISTANT Work Phone: Internal Medicine [place] Comment on above: Refill Request Start: 06-26-2024 End: 06-26-2024 Refill Monik Hackett MD Work Phone: Internal Medicine [place] Comment on above: Refill Request Start: 06-18-2024 End: 06-23-2024 Refill Lala Harrison APRN.EQUAL OPPORTUNITY ASSISTANT Work Phone: Internal Medicine [place] Comment on above: Med Change Request Start: 06-12-2024 Refill Monik Burnette Work Phone: Internal Medicine [place] Comment on above: Med Change Request Start: 06-11-2024 Refill Lala Harrison APRN .EQUAL OPPORTUNITY ASSISTANT Work Phone: Internal Medicine [place] Comment on above: Refill Request Start: 06-01-2024 Refill Monik Burnette Work Phone: [facility] Comment on above: Refill Request Start: 05-08-2024 Telephone encounter Jaime julian LACQUER MIXER.SUPERINTENDENT PRESSURE Work Phone: Internal Medicine [place] Comment on above: Procedure Start: 05-06-2024 End: 05-06-2024 Patient encounter procedure Lala Harrison APRN.EQUAL OPPORTUNITY ASSISTANT Work Phone: Internal Medicine [place] Comment on above: Controlled type 2 di abetes mellitus without complication, with long-term current use of insulin (HCC) (Primary Dx); Chest pain, unspecified type; SOBOE (shortness of breath on exertion) Start: 04-29-2024 End: 04-29-2024 ambulatory Pulm Lab [facility] Work Phone: PULM LAB [facility] Comment on above: Spirometry Start: 04-29-2024 End: 04-29-2024 Patient encounter procedure Pulm [facility] Work Phone: [facility] Comment on above: Mild persistent asth ma without complication (Primary Dx); SOB (shortness of breath); Hypoxemia; Morbid obesity (HCC) Start: 04-27-2024 Refill Jaime Spencer A PRN.SUPERINTENDENT PRESSURE Work Phone: Internal Medicine [place] Comment on above: Refill Request Start: 04-08-2024 Refill Susan Rea A PRN.EQUAL OPPORTUNITY ASSISTANT Work Phone: Family Medicine [place] Comment on above: Refill Request Start: 2024 Telephone encounter Monik duncan MD Work Phone: Internal Medicine [place] Comment on above: Insurance Authorizat ion ([place]) Start: 03-12-2024 Refill Jaime Spencer A PRN.SUPERINTENDENT PRESSURE Work Phone: Internal Medicine [place] Start: 02-27-2024 End: 02-27-2024 Office outpatient visit 25 minutes Jaime Spencer LACQUER MIXER.SUPERINTENDENT PRESSURE Work Phone: Internal Medicine [place] Comment on above: Chest pain, unspecif ied type (Primary Dx); SOBOE (shortness of breath on exertion); Hot flashes; Controlled type 2 diabetes mellitus without complication, with long-term current use of insulin ([facility]); Screening for diabetic retinopathy; Irritant contact dermatitis due to cosmetics; Encounter for immunization Start: 02-27-2024 Telephone encounter Camila Johns MD Work Phone: Pulmonary Medicine Comment on above: Orders Start: 02-13-2024 Refill Lala Harrison LACQUER MIXER .EQUAL OPPORTUNITY ASSISTANT Work Phone: Internal Medicine [place] Comment on above: Refill Request Start: 02-06-2024 Refill Lala Harrison LACQUER MIXER .EQUAL OPPORTUNITY ASSISTANT Work Phone: Internal Medicine [place] Comment on above: Refill Request Start: 01-24-2024 Refill Yasmine camacho LACQUER MIXER.EQUAL OPPORTUNITY ASSISTANT Work Phone: Internal Medicine [place] Comment on above: Refill Request Start: 01-07-2024 Refill Jaime Spencer A PRN.SUPERINTENDENT PRESSURE Work Phone: Internal Medicine [place] Comment on above: Refill Request Start: 01-06-2024 Refill Susan Rea A PRN.EQUAL OPPORTUNITY ASSISTANT Work Phone: Family Medicine [place] Comment on above: Refill Request Start: 12-11-2023 Telephone encounter Yasmine M Hers hberger LACQUER MIXER.EQUAL OPPORTUNITY ASSISTANT Work Phone: Internal Medicine [place] Comment on above: Results Start: 12-10-2023 Refill Jaime Spencer A PRN.SUPERINTENDENT PRESSURE Work Phone: Internal Medicine [place] Comment on above: Refill Request Start: 12-09-2023 Telephone encounter Yasmine Oliveros hberger LACQUER MIXER.EQUAL OPPORTUNITY ASSISTANT Work Phone: Internal Medicine [place] Start: 12-07-2023 Refill Jaime Spencer A PRN.SUPERINTENDENT PRESSURE Work Phone: Internal Medicine [place] Comment on above: Refill Request Start: 12-06-2023 End: 12-06-2023 ambulatory Pulm Lab [facility] Work Phone: [facility] Comment on above: Spirometry Start: 12-06-2023 End: 12-06-2023 Patient encounter procedure Pulm Lab [facility] Work Phone: [place] [facility] Start: 11-29-2023 Telephone encounter Monik duncan MD Work Phone: Internal Medicine [place] Comment on above: DME for oxygen Start: 11-25-2023 End: 11-25-2023 Subsequent hospital visit by physician Xr [facility] [place] Work Phone: Radiology Comment on above: Pain of right thumb [M79.644] Start: 11-04-2023 End: 11-04-2023 Subsequent hospital visit by physician Xr [facility] [place] Work Phone: Radiology Comment on above: Acute cough [R05.1] Start: 10-03-2023 ambulatory Lala Older LACQUER MIXER .EQUAL OPPORTUNITY ASSISTANT Work Phone: Internal Medicine [place] Comment on above: [facility] has not filed my Rosuvastatin I requested on October 01 Refill Request Start: 10-01-2023 Refill Kelsi Alfred PA-C Work Phone: Internal Medicine [place] Comment on above: Refill Request I Need A Pulse Oxime ter & Blood Pressure Cuff Meter Start: 08-27-2023 Telephone encounter Constance Humphries [facility] Work Phone: [facility] Comment on above: Missed Appointment Start: 08-21-2023 Refill Yasmine ReyesEQUAL OPPORTUNITY ASSISTANT Work Phone: Internal Medicine [place] Comment on above: Refill Request Start: 08-13-2023 Telephone encounter Jaime julian LACQUER MIXER.SUPERINTENDENT PRESSURE Work Phone: Internal Medicine [place] Comment on above: Medication Problem Refill Request Start: 08-09-2023 End: 08-09-2023 Office outpatient visit 25 minutes Jaime Spencer LACQUER MIXER.SUPERINTENDENT PRESSURE Work Phone: Internal Medicine [place] Comment on above: NANCY positive (Primar y Dx); History of iron deficiency; Esophageal reflux; Screening for cervical cancer; Screening for colon cancer; Encounter for immunization; Controlled type 2 diabetes mellitus without complication, with long-term current use of insulin ([facility]); Screening for diabetic retinopathy; Generalized pain; Burning sensation; Fibromyalgia; Irritant contact dermatitis due to cosmetics; Rash and nonspecific skin eruption Start: 07-15-2023 Refill Monik Burnette Work Phone: Internal Medicine [place] Comment on above: Refill Request (New blood sugar meter/supplies//) Start: 07-15-2023 End: 07-15-2023 Emergency department patient visit DR MORGAN BENJAMIN MD [facility] Start: 07-12-2023 End: 07-12-2023 Patient encounter procedure Lala Harrison APRN.EQUAL OPPORTUNITY ASSISTANT Work Phone: Internal Medicine [place] Comment on above: Generalized pain (Pr imary Dx); Burning sensation; Weakness; Brain fog; Controlled type 2 diabetes mellitus without complication, with long-term current use of insulin (HCC); Fibromyalgia Start: 06-29-2023 End: 06-29-2023 Emergency department patient visit DR AIDAN ROBLES DO [facility] Start: 06-11-2023 Refill Lala Harrison APRN, .CNP Work Phone: Internal Medicine [place] Comment on above: Refill Request Start: 05-27-2023 End: 05-27-2023 ambulatory Ricardo Dinh [facility] Work Phone: [facility] Comment on above: Controlled type 2 di abetes mellitus without complication, with long-term current use of insulin (HCC) (Primary Dx) Start: 05-27-2023 End: 05-27-2023 Telemedicine consultation with patient Ricardo Dinh [facility] Work Phone: [facility] Start: 05-23-2023 End: 05-23-2023 OT/PT/Speech Visit Thom Enamorado PT Work Phone: [facility] Comment on above: 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 (Primary Dx); Benign paroxysmal vertigo of both ears Start: 05-01-2023 ambulatory Monik Burnette Work Phone: [facility] [place] Start: 04-29-2023 Refill Monik Burnette Work Phone: [facility] Comment on above: Med Change Request Start: 04-19-2023 ambulatory No One (Historical) Ref erring Physician Start: 04-16-2023 ambulatory No Pcp (Historcal) Refe rring Physician Start: 04-15-2023 Telephone encounter Monik duncan MD Work Phone: Internal Medicine [place] Comment on above: Insurance Authorizat ion Start: 04-14-2023 Refill Monik Burnette Work Phone: [facility] Comment on above: Med Change Request Start: 04-11-2023 End: 04-11-2023 Patient encounter procedure Fior Joseph [facility] Work Phone: [facility] Comment on above: Controlled type 2 di abetes mellitus without complication, with long-term current use of insulin (HCC) (Primary Dx); Medication management Refill Request Start: 03-26-2023 End: 03-26-2023 Subsequent hospital visit by physician Sushila [facility] [place] Work Phone: Radiology Comment on above: Knee joint injury, i nitial encounter [S89.90XA] Start: 03-26-2023 End: 03-26-2023 Patient encounter procedure Gavi Norwood LACQUER MIXER.EQUAL OPPORTUNITY ASSISTANT Work Phone: [place] [facility] Comment on above: Knee joint injury, i nitial encounter (Primary Dx) Start: 02-26-2023 Telephone encounter Monik duncan MD Work Phone: Internal Medicine [place] Comment on above: Xray Results Start: 02-22-2023 End: 02-22-2023 Subsequent hospital visit by physician Xr [facility] [place] Work Phone: Radiology Comment on above: Chronic bilateral lo w back pain with bilateral sciatica [M54.42, M54.41, G89.29] Start: 01-31-2023 Telephone encounter Jess Perry [facility] Work Phone: [facility] Comment on above: Appointment Start: 01-30-2023 Refill Monik Burnette Work Phone: Internal Medicine [place] Comment on above: Refill Request Start: 01-23-2023 End: 01-23-2023 Patient encounter procedure Monik Hackett MD Work Phone: Internal Medicine [place] Comment on above: Schizophrenia, unspe cified type (HCC) (Primary Dx); Fibromyalgia; Moderate episode of recurrent major depressive disorder (HCC); Controlled type 2 diabetes mellitus without complication, with long-term current use of insulin (HCC); Hypertriglyceridemia; Subcutaneous nodules Start: 01-01-2023 Refill Monik Burnette Work Phone: Internal Medicine [place] Comment on above: Refill Request Start: 12-21-2022 ambulatory Trixie martin LACQUER MIXER.EQUAL OPPORTUNITY ASSISTANT Work Phone: Family Medicine [place] Comment on above: Question regarding C BC Start: 11-26-2022 Refill Lala Harrison APRN .EQUAL OPPORTUNITY ASSISTANT Work Phone: Internal Medicine [place] Comment on above: Refill Request Start: 11-12-2022 Refill Lala ReyesEQUAL OPPORTUNITY ASSISTANT Work Phone: Internal Medicine [place] Comment on above: Refill Request Start: 10-09-2022 End: 10-09-2022 Subsequent hospital visit by physician Sushila [facility] [place] Work Phone: Radiology Comment on above: Hammertoe of left fo ot [M20.42] Start: 09-24-2022 Refill Lala Older LACQUER MIXER .EQUAL OPPORTUNITY ASSISTANT Work Phone: Family Medicine [place] Comment on above: Refill Request Start: 09-06-2022 Refill Trixietremaine Choudhurym an LACQUER MIXER.EQUAL OPPORTUNITY ASSISTANT Work Phone: Family Medicine [place] Comment on above: Refill Request Start: 08-20-2022 Refill Lala Older LACQUER MIXER .EQUAL OPPORTUNITY ASSISTANT Work Phone: Internal Medicine [place] Comment on above: Refill Request Start: 07-25-2022 ambulatory No Pcp (Historical) Ref erring Physician Start: 07-17-2022 Refill Trixie Choudhurym an LACQUER MIXER.EQUAL OPPORTUNITY ASSISTANT Work Phone: Family Medicine [place] Comment on above: Refill Request Start: 07-03-2022 Refill Lala Older LACQUER MIXER .EQUAL OPPORTUNITY ASSISTANT Work Phone: Family Medicine [place] Comment on above: Refill Request Start: 06-27-2022 End: 06-27-2022 Patient encounter procedure Monik Hackett MD Work Phone: Internal Medicine [place] Comment on above: Pitted nails (Primar y Dx); Controlled type 2 diabetes mellitus without complication, with long-term current use of insulin (HCC); Mixed hyperlipidemia; Vitamin B12 deficiency Start: 05-30-2022 End: 05-30-2022 Office outpatient visit 40 minutes Trixie Gibson LACQUER MIXER.EQUAL OPPORTUNITY ASSISTANT Work Phone: Family Medicine [place] Comment on above: Onychomycosis (Prima ry Dx) Start: 05-23-2022 ambulatory Monik Burnette Work Phone: [facility] [place] Start: 05-14-2022 Refill Lala Older LACQUER MIXER .EQUAL OPPORTUNITY ASSISTANT Work Phone: Internal Medicine [place] Comment on above: Refill Request Start: 05-05-2022 Refill Lala Older LACQUER MIXER .EQUAL OPPORTUNITY ASSISTANT Work Phone: Internal Medicine [place] Comment on above: Refill Request Start: 03-14-2022 ambulatory Trixie Pati martin LACQUER MIXER.EQUAL OPPORTUNITY ASSISTANT Work Phone: Family Medicine [place] Comment on above: IRON, COMPREHENSIVE METABOLIC PANEL, A1C Start: 03-13-2022 ambulatory Trixie Wilcoxavel martin LACQUER MIXER.EQUAL OPPORTUNITY ASSISTANT Work Phone: Family Medicine [place] Comment on above: TOE NAILS Start: 02-09-2022 Refill Lala Older LACQUER MIXER .EQUAL OPPORTUNITY ASSISTANT Work Phone: Internal Medicine [place] Comment on above: Refill Request Procedures Date Procedure Procedure Detail Performing Clinician Start: 04-29-2024 Nitric oxide gas determination Camila Johns MD Work Phone: Start: 12-06-2023 Noninvasive ear/puls e oximetry multiple deter Yasmine Martinez LACQUER MIXER.EQUAL OPPORTUNITY ASSISTANT Work Phone: Start: 12-06-2023 Plethysmography lung volumes w/wo airway resist Yasmine Martinez LACQUER MIXER.EQUAL OPPORTUNITY ASSISTANT Work Phone: Start: 11-25-2023 Radex fingr minimum 2 views Gavi Norwood LACQUER MIXER.EQUAL OPPORTUNITY ASSISTANT Work Phone: Start: 11-04-2023 Radiologic exam ches t 2 views Yasmine Martinez LACQUER MIXER.EQUAL OPPORTUNITY ASSISTANT Work Phone: Start: 08-09-2023 INFLUENZA VACCINE, A GE 6 MO - 64 YR, QUADRIVALENT (AFLURIA, FLULAVAL, FLUZONE) Jaime Spencer LACQUER MIXER.SUPERINTENDENT PRESSURE Work Phone: Start: 07-12-2023 Urnls dip stick/tabl et rgnt auto w/o microscopy Lala Harrison LACQUER MIXER.EQUAL OPPORTUNITY ASSISTANT Work Phone: Start: 07-12-2023 Hemoglobin A1c/Hemoglobin.total in Blood Lala Harrison LACQUER MIXER.EQUAL OPPORTUNITY ASSISTANT Work Phone: Start: 03-26-2023 Radiologic exam knee complete 4/more views Gavi Norwood LACQUER MIXER.EQUAL OPPORTUNITY ASSISTANT Work Phone: Start: 02-22-2023 Radex spine lumbosac ral 2/3 views Monik Hackett MD Work Phone: Start: 10-09-2022 Radex foot complete minimum 3 views Narendra Turner Work Phone: Start: 05-20-2006 Mammography Lala Older LACQUER MIXER.EQUAL OPPORTUNITY ASSISTANT Work Phone: Abdominal hysterectomy DR RANDALL BENJAMIN MD History of right tot al knee replacement DR MORGAN BENJAMIN MD Tonsillectomy DR MORGAN BENJAMIN MD Plan of Treatment Date Care Activity Detail Author Start: 10-02-2031 Urine microalbumin profile [facility] Start: 04-17-2026 Hepatitis B screening Urine Albumin:Creatinine Ratio [facility] Start: 04-16-2026 Annual PCP Team Chronic Disease Visit Annual PCP Team Chronic Disease Visit [facility] Start: 11-10-2025 Hepatitis B surface antibody level LDL Cholesterol [facility] Start: 10-16-2025 Hemoglobin A1c measurement HbA1C [facility] Start: 06-28-[address] [facility] Start: 06-25-2025 End: 06-25-2025 Patient encounter procedure 06/25/2025 4:20 PM EDT Office Visit Internal Medicine [place] [address] [place] [address] Monik Hackett MD [address] [place], [place] [id number] follow up Internal Medicine [place] Comment on above: follow up Start: 05-10-2025 Hemoglobin A1c measurement HbA1C [facility] Start: 05-06-2025 Annual PCP Team Chronic Disease Visit Annual PCP Team Chronic Disease Visit [facility] Start: 04-20-2025 End: 04-20-2025 Patient encounter procedure 04/20/2025 2:40 PM EDT Office Visit Internal Medicine [place] [address] [place] [address] Monik Hackett MD [address] [facility] [address] follow up Internal Medicine [place] Comment on above: follow up Start: 04-16-2025 End: 07-16-2025 Cobalamin (Vitamin B12) [Mass/volume] in Serum or Plasma [facility] Comment on above: Expected: 04/16/2025, Expires: Start: 04-16-2025 End: 07-16-2025 Comprehensive metabolic 2000 panel - Serum or Plasma [facility] Comment on above: Expected: 04/16/2025, Expires: Start: 04-16-2025 End: 07-16-2025 Cortisol [Mass/volume] in Serum or Plasma [facility] Comment on above: Expected: 04/16/2025, Expires: Start: 04-16-2025 End: 07-16-2025 Hemoglobin A1c in Blood [facility] [employer] Work Phone: Comment on above: Expected: 04/16/2025, Expires: Start: 04-16-2025 End: 07-16-2025 Microalbumin/Creatinine [Mass Ratio] in Urine ALBUMIN/CREATININE RATIO, URINE Lab Routine Controlled type 2 diabetes mellitus without complication, with long-term current use of insulin (HCC) Expected: 04/16/2025, Expires: 07/16/[address] [facility] Comment on above: Expected: 04/16/2025, Expires: Start: 04-16-2025 End: 07-16-2025 Thyrotropin [Units/volume] in Serum or Plasma [facility] Comment on above: Expected: 04/16/2025, Expires: Start: 04-16-2025 End: 07-16-2025 Thyroxine (T4) free [Mass/volume] in Serum or Plasma [facility] Comment on above: Expected: 04/16/2025, Expires: Start: 04-16-2025 End: 07-16-2025 Triiodothyronine (T3) Free [Mass/volume] in Serum or Plasma [facility] Comment on above: Expected: 04/16/2025, Expires: Start: 04-16-2025 End: 07-16-2025 Urinalysis complete panel - Urine URINALYSIS (WITH MICROSCOPIC) WITH CULTURE IF INDICATED Lab Routine Dizziness Tinnitus of both ears Controlled type 2 diabetes mellitus without complication, with long-term current use of insulin (HCC) Weight gain Paresthesia of bilateral legs Expected: 04/16/2025, Expires: 07/16/[address] [facility] Comment on above: Expected: 04/16/2025, Expires: Start: 04-16-2025 End: 04-16-2025 Patient encounter procedure 04/16/2025 8:00 AM EDT Office Visit Internal Medicine [place] [address] [place] [address] Monik Hackett MD [address] [place] [address] Generalized Weakness, fatigue, irritable. SEE TE. Internal Medicine [place] Comment on above: Generalized Weakness, fatigue, irritable . SEE TE. Start: 03-19-2025 End: 03-19-2025 Patient encounter procedure 03/19/2025 4:20 PM EDT Office Visit Internal Medicine [place] [address] [place] [address] Monik Hackett MD [address] [facility] [place] [address] follow up Internal Medicine [place] Comment on above: follow up Start: 02-05-2025 End: 02-05-2025 Patient encounter procedure 02/05/2025 4:20 PM EDT Office Visit [facility] [place] [address] [place] [address] Monik Hackett MD [address] [facility] [place] [address] follow up [facility] Medicine [place] Comment on above: follow up Start: 12-15-2024 End: 12-15-2024 Patient encounter procedure 12/15/2024 2:40 PM EST Office Visit [facility] Medicine [place] [address] [place] [address] Monik Hackett MD [address] [place] [place] [address] follow up [facility] Medicine [place] Comment on above: follow up Start: 11-10-2024 End: 02-09-2025 25-hydroxyvitamin D3 [Mass/volume] in Serum or Plasma [facility] Comment on above: Expected: 11/10/2024, Expires: Start: 11-10-2024 End: 02-09-2025 CBC W Auto Differential panel - Blood [facility] Work Phone: Comment on above: Expected: 11/10/2024, Expires: Start: 11-10-2024 End: 02-09-2025 Cobalamin (Vitamin B12) [Mass/volume] in Serum or Plasma [facility] Comment on above: Expected: 11/10/2024, Expires: Start: 11-10-2024 End: 02-09-2025 Comprehensive metabolic 2000 panel - Serum or Plasma [facility] Comment on above: Expected: 11/10/2024, Expires: Start: 11-10-2024 End: 02-09-2025 Ferritin [Mass/volume] in Serum or Plasma [facility] Comment on above: Expected: 11/10/2024, Expires: Start: 11-10-2024 End: 02-09-2025 Iron and Iron binding capacity panel - Serum or Plasma [facility] Comment on above: Expected: 11/10/2024, Expires: Start: 11-10-2024 End: 02-09-2025 Thyrotropin [Units/volume] in Serum or Plasma [facility] Comment on above: Expected: 11/10/2024, Expires: Start: 11-06-2024 End: 11-06-2024 Patient encounter procedure 11/06/2024 1:40 PM EST Office Visit Internal Medicine [place] [address] [place] [address] Lala Harrison APRN.EQUAL OPPORTUNITY ASSISTANT [address] [place] [address] fatigue Internal Medicine [place] Comment on above: fatigue Start: 11-04-2024 Annual PCP Team Chronic Disease Visit Annual PCP Team Chronic Disease Visit [facility] Start: 11-04-2024 Hepatitis B surface antibody level LDL Cholesterol [facility] Start: 10-05-2024 End: 10-05-2024 Patient encounter procedure 10/05/2024 3:00 PM EST Office Visit Internal Medicine [place] [address] [facility] [place] [address] Lala Harrison APRN.EQUAL OPPORTUNITY ASSISTANT [address] [place] [address] fatigue Internal Medicine [place] Comment on above: fatigue Start: 09-23-2024 End: 09-23-2024 Patient encounter procedure 09/23/2024 3:00 PM EST Office Visit Pulmonary Medicine [address] [place], [place] [id number] Monserrat Khoury, PA-C [address] [place] [address] 3 MTH F/U ASTHMA Pulmonary Medicine Comment on above: 3 MTH F/U ASTHMA Start: 09-22-2024 End: 12-22-2024 Hemoglobin A1c in Blood HEMOGLOBIN A1C Lab Routine Controlled type 2 diabetes mellitus without complication, with long-term current use of insulin (HCC) Expected: 09/22/2024, Expires: 12/22/[address] [facility] Comment on above: Expected: 09/22/2024, Expires: Start: 09-22-2024 End: 12-22-2024 Lipid 1996 panel - Serum or Plasma LIPID PANEL BASIC Lab Routine Medication management Expected: 09/22/2024, Expires: 12/22/[address] [facility] Comment on above: Expected: 09/22/2024, Expires: Start: 09-22-2024 End: 12-22-2024 Microalbumin/Creatinine [Mass Ratio] in Urine ALBUMIN/CREATININE RATIO, URINE Lab Routine Controlled type 2 diabetes mellitus without complication, with long-term current use of insulin (HCC) Expected: 09/22/2024, Expires: 12/22/2024 [facility] Work Phone: Comment on above: Expected: 09/22/2024, Expires: Start: 08-29-2024 Hemoglobin A1c measurement HbA1C [facility] Start: 08-28-2024 End: 08-28-2024 Patient encounter procedure 08/28/2024 3:00 PM EDT Office Visit Neurology [address] [place], [place] [address] Vicky Ga APRN.EQUAL OPPORTUNITY ASSISTANT [address] [place] [address] [facility] Comment on above: SLEEP APNEA Start: 08-19-2024 End: 08-19-2024 Patient encounter procedure 08/19/2024 6:00 PM EDT Office Visit Internal Medicine [place] [address] [place], [place] [id number] Lala Harrison APRN.EQUAL OPPORTUNITY ASSISTANT [address] [place], [place] [address] This is a follow up from last appt with Lala Harrison. [facility] [place] Comment on above: This is a follow up from last appt with Lala Harrison. Start: 08-09-2024 Hepatitis B screening Urine Albumin:Creatinine Ratio [facility] Start: 07-29-2024 End: 07-29-2024 Patient encounter procedure 07/29/2024 6:00 PM EDT Office Visit Internal Medicine [place] [address] [place], [place] [address] Lala Harrison APRN.EQUAL OPPORTUNITY ASSISTANT [address] [place], [place] [id number] This is a follow up from last appt with Lala Harrison. [facility] [place] Comment on above: This is a follow up from last appt with Lala Harrison. Start: 07-12-2024 Annual PCP Team Chronic Disease Visit Annual PCP Team Chronic Disease Visit [facility] Start: 07-12-2024 Hepatitis B surface antibody level LDL Cholesterol [facility] Start: 07-07-2024 End: 07-07-2024 ambulatory 07/07/2024 1:00 PM EDT Education Endocrinology [address] [place] [address] [place] [address] [place] [address] [phone] Endocrinology Comment on above: [phone] Start: 06-28-2024 Covid-19 Vaccine () Covid-19 Vaccine () [facility] Start: 06-28-2024 Covid-19 Vaccine () Covid-19 Vaccine () [facility] Start: 06-28-2024 Influenza vaccination Influenza Vaccine (#1) [facility] Start: 06-26-2024 End: 06-26-2024 Patient encounter procedure 06/26/2024 1:20 PM EDT Office Visit Internal Medicine [place] [address] [facility] [place], [place] [address] Lala Harrison, LACQUER MIXER.EQUAL OPPORTUNITY ASSISTANT [address] [facility], [place] [id number] 4 wk f/u Internal Medicine [place] Comment on above: 4 wk f/u Start: 06-18-2024 End: 09-17-2024 25-hydroxyvitamin D3 [Mass/volume] in Serum or Plasma VITAMIN D 25 HYDROXY Lab Routine Vitamin D deficiency Expected: 06/18/2024, Expires: 09/17/2024 [facility] Work Phone: Comment on above: Expected: 06/18/2024, Expires: Start: 06-17-2024 End: 06-17-2024 Patient encounter procedure 06/17/2024 5:00 PM EDT Office Visit Internal Medicine [place] [address] [facility], [place] [address] Lala Harrison, LACQUER MIXER.EQUAL OPPORTUNITY ASSISTANT [address] [facility], [place] [id number] 4 wk f/u Internal Medicine [place] Comment on above: 4 wk f/u Start: 05-15-2024 End: 05-15-2024 Patient encounter procedure 05/15/2024 8:30 AM EDT Appointment [facility] [address] [place] [address] Chest pain, unspecified type [R07.9]; SOBOE (shortness of breath on exertion) [R06.02 [facility] Comment on above: Chest pain, unspecified type [R07.9]; SO MARIELY (shortness of breath on exertion) [R06.02 Start: 05-06-2024 End: 05-06-2024 Patient encounter procedure 05/06/2024 5:00 PM EDT Office Visit Internal Medicine [place] [address] [place] [address] Lala Harrison APRN.EQUAL OPPORTUNITY ASSISTANT [address] [place] [address] 6 month follow up Internal Medicine [place] Comment on above: 6 month follow up Start: 05-04-2024 Hemoglobin A1c measurement HbA1C [facility] Start: 04-29-2024 End: 04-29-2024 Patient encounter procedure 04/29/2024 1:30 PM EDT Office Visit Pulmonary Medicine [address] [place] [address] Monserrat Khoury, PA-C [address] [place] [address] 3 MTH F/U ASTHMA Pulmonary Medicine Comment on above: 3 MTH F/U ASTHMA Start: 04-29-2024 End: 04-29-2024 ambulatory 04/29/2024 1:15 PM EDT Procedure PULM LAB [facility] [address] [place] [address] Wstr, Pulm Lab [facility] [address] [place] [address] 3 MTH F/U ASTHMA PULM LAB [facility] Comment on above: 3 MTH F/U ASTHMA Start: 04-27-2024 End: 04-27-2024 Patient encounter procedure 04/27/2024 3:30 PM EDT Office Visit Neurology [address] [place] [address] Vicky Ga, JENN.EQUAL OPPORTUNITY ASSISTANT [address] [place] [address] [facility] Neurology Comment on above: SLEEP APNEA Start: 04-27-2024 Hzv zoster vacc recombinant adjuvanted im njx ZOSTER VACCINE, RECOMBINANT (SHINGRIX) Immunization/Injection Routine Encounter for immunization Expected: 04/27/[address] [facility] Comment on above: Expected: 04/27/2024 Start: 03-30-2024 End: 03-30-2024 Patient encounter procedure 03/30/2024 2:20 PM EDT Office Visit Internal Medicine [place] [address] [place] [address] Jaime Spencer APRN.SUPERINTENDENT PRESSURE [address] [place] [address] follow up Internal Medicine [place] Comment on above: follow up Start: 03-20-2024 End: 03-20-2024 Patient encounter procedure 03/20/2024 1:50 PM EDT Office Visit Cardiology [address] [place] [address] Hypoxemia [R09.02] Cardiology Comment on above: Hypoxemia [R09.02] Start: 02-27-2024 End: 05-28-2024 Hemoglobin A1c in Blood [facility] Comment on above: Expected: 02/27/2024, Expires: Start: 02-23-2024 ANNUAL PCP TEAM CHRONIC DISEASE VISIT ANNUAL PCP TEAM CHRONIC DISEASE VISIT [facility] Start: 02-21-2024 Hepatitis B surface antibody level LDL CHOLESTEROL [facility] Start: 01-24-2024 ANNUAL PCP TEAM CHRONIC DISEASE VISIT ANNUAL PCP TEAM CHRONIC DISEASE VISIT [facility] Start: 11-09-2023 End: 01-09-2024 Hemoglobin A1c in Blood HGB A1C Lab Routine Controlled type 2 diabetes mellitus without complication, with long-term current use of insulin (HCC) Expected: 11/09/2023 (Approximate), Expires: 01/09/2024 [facility] Work Phone: Comment on above: Expected: 11/09/2023 (Approximate), Expi res: 01/09/2024 Start: 10-11-2023 Hemoglobin A1c/Hemoglobin.total in Blood HbA1C [facility] Start: 08-22-2023 Hemoglobin A1c/Hemoglobin.total in Blood HBA1C [facility] Start: 08-09-2023 End: 10-09-2023 ALBUMIN/CREAT RATIO RND UR [facility] Work Phone: Comment on above: Expected: 08/09/2023, Expires: 3 Start: 07-31-2023 Glaucoma screening Dilated Retinal Exam [facility] Start: 07-31-2023 Hepatitis C antibody, confirmatory test DILATED RETINAL EXAM [facility] Start: 07-12-2023 End: 09-11-2023 NANCY BY IFA SCREEN [facility] Work Phone: Comment on above: Expected: 07/12/2023, Expires: 3 Start: 07-12-2023 End: 09-11-2023 C reactive protein [Mass/volume] in Serum or Plasma [facility] Work Phone: Comment on above: Expected: 07/12/2023, Expires: 3 Start: 07-12-2023 End: 09-11-2023 Cobalamin (Vitamin B12) [Mass/volume] in Serum or Plasma [facility] Work Phone: Comment on above: Expected: 07/12/2023, Expires: 3 Start: 07-12-2023 End: 09-11-2023 Magnesium [Mass/volume] in Serum or Plasma [facility] Work Phone: Comment on above: Expected: 07/12/2023, Expires: 3 Start: 07-12-2023 End: 09-11-2023 Rheumatoid factor [Units/volume] in Serum or Plasma [facility] Work Phone: Comment on above: Expected: 07/12/2023, Expires: 3 Start: 07-12-2023 End: 09-11-2023 Thyroxine (T4) free [Mass/volume] in Serum or Plasma [facility] Work Phone: Comment on above: Expected: 07/12/2023, Expires: 3 Start: 06-28-2023 Covid-19 Vaccine () Covid-19 Vaccine () [facility] Start: 06-28-[address] [facility] Start: 06-27-2023 ANNUAL PCP TEAM CHRONIC DISEASE VISIT ANNUAL PCP TEAM CHRONIC DISEASE VISIT [facility] Start: 06-27-2023 BP CONTROLLED (<130/80) BP CONTROLLED (<130/80) [facility] Start: 05-30-2023 ANNUAL PCP TEAM CHRONIC DISEASE VISIT ANNUAL PCP TEAM CHRONIC DISEASE VISIT [facility] Start: 04-10-2023 Hepatitis B surface antibody level LDL CHOLESTEROL [facility] Start: 03-20-2023 Hepatitis C antibody, confirmatory test DILATED RETINAL EXAM [facility] Start: 12-24-2022 End: 02-23-2023 25-hydroxyvitamin D3 [Mass/volume] in Serum or Plasma VITAMIN D 25 HYDROXY Lab Routine Vitamin D deficiency Expected: 12/24/2022, Expires: 02/23/2023 [facility] Work Phone: Comment on above: Expected: 12/24/2022, Expires: 3 Start: 12-24-2022 End: 02-23-2023 Cobalamin (Vitamin B12) [Mass/volume] in Serum or Plasma VITAMIN B12 BLOOD Lab Routine Vitamin B12 deficiency Expected: 12/24/2022, Expires: 02/23/2023 [facility] Work Phone: Comment on above: Expected: 12/24/2022, Expires: 3 Start: 10-10-2022 Hemoglobin A1c/Hemoglobin.total in Blood HBA1C [facility] Start: 10-02-2022 ANNUAL PCP TEAM CHRONIC DISEASE VISIT ANNUAL PCP TEAM CHRONIC DISEASE VISIT [facility] Start: 10-02-2022 BP CONTROLLED (<130/80) BP CONTROLLED (<130/80) [facility] Start: 10-02-2022 Hepatitis B screening URINE ALBUMIN:CREATININE RATIO [facility] Start: 10-02-2022 Hepatitis B surface antibody level LDL CHOLESTEROL [facility] Start: 10-02-2022 PNEUMOCOCCAL (2 - PCV) PNEUMOCOCCAL (2 - PCV) [facility] ic Start: 10-02-2022 Pneumococcal vaccination Pneumococcal Vaccine (2 - PCV) [facility] Start: 08-30-2022 End: 10-30-2022 Hepatic function 2000 panel - Serum or Plasma HEPATIC FUNCTION PNL Lab Routine Onychomycosis Expected: 08/30/2022, Expires: 10/30/2022 [facility] Work Phone: Comment on above: Expected: 08/30/2022, Expires: 3 Start: 06-28-2022 Influenza vaccination INFLUENZA (#1) [facility] Start: 06-27-2022 End: 08-27-2022 Cobalamin (Vitamin B12) [Mass/volume] in Serum or Plasma VITAMIN B12 BLOOD Lab Routine Vitamin B12 deficiency Expected: 06/27/2022, Expires: 08/27/2022 [facility] Work Phone: Comment on above: Expected: 06/27/2022, Expires: 2 Start: 12-26-2021 COVID-19 VACCINE (3 - Booster for Pfizer series) COVID-19 VACCINE (3 - Booster for Pfizer series) [facility] Start: 12-24-2021 Hemoglobin A1c/Hemoglobin.total in Blood HBA1C [facility] Start: 12-12-2021 Hepatitis C antibody, confirmatory test DILATED RETINAL EXAM [facility] Start: 09-22-2021 COVID-19 VACCINE (3 - Booster for Pfizer series) COVID-19 VACCINE (3 - Booster for Pfizer series) [facility] Start: 09-22-2021 COVID-19 VACCINE (3 - Pfizer series) COVID-19 VACCINE (3 - Pfizer series) [facility] Start: 09-15-2021 BP CONTROLLED (<130/80) BP CONTROLLED (<130/80) [facility] in Start: 2021 Hepatitis B Vaccine (1 of 3 - Risk 3-dose series) Hepatitis B Vaccine (1 of 3 - Risk 3-dose series) [facility] Start: 2021 RSV Vaccine (1 - 1-dose 60+ series) RSV Vaccine (1 - 1-dose 60+ series) [facility] Start: 2021 RSV Vaccine (1 - Risk 60-74 years 1-dose series) RSV Vaccine (1 - Risk 60-74 years 1-dose series) [facility] Start: 2011 SHINGRIX VACCINE (1 of 2) SHINGRIX VACCINE (1 of 2) [facility] Start: 05-20-[address] [facility] Start: 05-20-2007 Screening for malignant neoplasm of breast Mammogram Screening [facility] Start: 2006 COLOGUARD (FIT-DNA) COLOGUARD (FIT-DNA) [facility] Start: 2006 Colonoscopy [address] [facility] Start: 2006 COLORECTAL CANCER SCREENING COLORECTAL CANCER SCREENING [facility] Start: [address] COLONOGRAPHY [facility] Start: 2006 FECAL OCCULT BLOOD FECAL OCCULT BLOOD [facility] Start: 2006 Screening for malignant neoplasm of colon [facility] Start: 2006 [address] [facility] Start: 2003 PAP TESTING PAP TESTING [facility] Start: 1991 HPV TESTING HPV TESTING [facility] Start: 1991 Screening for malignant neoplasm of cervix HPV Testing [facility] Start: 1982 PAP TESTING PAP TESTING [facility] Start: 1982 Screening for malignant neoplasm of cervix [facility] Start: 1971 3 comp foot exam completed DIABETIC FOOT EXAM [facility] Start: 1971 Diabetic foot examination Diabetic Foot Exam [facility] End: 12-24-2023 CBC panel - Blood by Automated count CBC Lab Routine Controlled type 2 diabetes mellitus without complication, with long-term current use of insulin (HCC) Every 6 months for 12 Occurrences starting 12/24/2022 until 12/24/2023 [facility] Work Phone: Comment on above: Every 6 months for 12 Occurrences starti ng 12/24/2022 until 12/24/2023 End: 12-24-2023 Comprehensive metabolic 2000 panel - Serum or Plasma COMP METABOLIC PANEL Lab Routine Controlled type 2 diabetes mellitus without complication, with long-term current use of insulin (HCC) Every 6 months for 12 Occurrences starting 12/24/2022 until 12/24/2023 [facility] Work Phone: Comment on above: Every 6 months for 12 Occurrences starti ng 12/24/2022 until 12/24/2023 End: 05-08-2025 DBT Breast - bilateral screening ALTHEA SCREENING W CORIN Radiology Routine Encounter for screening mammogram for breast cancer 1 Occurrences starting 04/08/2024 until 05/08/2025 [facility] Work Phone: Comment on above: 1 Occurrences starting 04/08/2024 until 05/08/2025 End: 04-08-2026 DBT Breast - bilateral screening ALTHEA SCREENING W CORIN Radiology Routine Encounter for screening mammogram for breast cancer 1 Occurrences starting 03/09/2025 until 04/08/2026 [facility] Work Phone: Comment on above: 1 Occurrences starting 03/09/2025 until 04/08/2026 ECG COMPLETE ECG COMPLETE ECG Routine Chest pain, unspecified type Ordered: 02/27/[address] [facility] Comment on above: Ordered: 02/27/2024 End: 02-26-2025 Echocardiography ECHO Cardiology Routine Hypoxemia 1 Occurrences starting 02/27/2024 until 02/26/2025 [facility] Work Phone: Comment on above: 1 Occurrences starting 02/27/2024 until 02/26/2025 End: 12-24-2023 Hemoglobin A1c in Blood HGB A1C Lab Routine Controlled type 2 diabetes mellitus without complication, with long-term current use of insulin (HCC) Every 3 months for 24 Occurrences starting 12/24/2022 until 12/24/2023 [facility] Work Phone: Comment on above: Every 3 months for 24 Occurrences starti ng 12/24/2022 until 12/24/2023 Hzv zoster vacc recombinant adjuvanted im njx ZOSTER VACCINE, RECOMBINANT (SHINGRIX) Immunization/Injection Routine Encounter for immunization 1 Occurrences starting 02/27/2024 [facility] Work Phone: Comment on above: 1 Occurrences starting 02/27/2024 End: 12-24-2023 Lipid 1996 panel - Serum or Plasma LIPID PANEL BASIC Lab Routine Controlled type 2 diabetes mellitus without complication, with long-term current use of insulin (HCC) Every 6 months for 12 Occurrences starting 12/24/2022 until 12/24/2023 [facility] Work Phone: Comment on above: Every 6 months for 12 Occurrences starti ng 12/24/2022 until 12/24/2023 LUNG DIFFUSION CAPAC ITY (DLCO) LUNG DIFFUSION CAPACITY (DLCO) PFT Routine Shortness of breath 12/06/2023 2:01 PM EST [facility] Work Phone: LUNG VOLUMES LUNG VOLUMES PFT Routine Shortness of breath 12/06/2023 2:01 PM EST [facility] Work Phone: End: 05-30-2024 ALTHEA SCREENING ALTHEA SCREENING Radiology Routine Encounter for screening mammogram for breast cancer 1 Occurrences starting 05/01/2023 until 05/30/2024 [facility] Work Phone: Comment on above: 1 Occurrences starting 05/01/2023 until 05/30/2024 PFIZER-BIONTECH COVI D-19 VACCINE ( SEASON) AGE 12+ YR PFIZER-BIONTECH COVID-19 VACCINE () AGE 12+ YR Immunization/Injection Routine Encounter for immunization 1 Occurrences starting 02/27/[address] [facility] Comment on above: 1 Occurrences starting 02/27/2024 PT PLAN OF CARE CERTIFICATION PT PLAN OF CARE CERTIFICATION Procedures Routine Benign paroxysmal vertigo of both ears Benign paroxysmal po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 Ordered: 05/23/2023 [facility] Work Phone: Comment on above: Ordered: 05/23/2023 End: 06-27-2023 PVR LEG W/EXC [facility] PVR LEG W/EXC [facility] Vascular Lab Routine Mixed hyperlipidemia 1 Occurrences starting 06/27/2022 until 06/27/2023 [facility] Work Phone: Comment on above: 1 Occurrences starting 06/27/2022 until 06/27/2023 RSV VACCINE, BIVALEN T (ABRYSVO) RSV VACCINE, BIVALENT (ABRYSVO) Immunization/Injection Routine Encounter for immunization 1 Occurrences starting 02/27/[address] [facility] Comment on above: 1 Occurrences starting 02/27/2024 End: 06-22-2023 Screening mammography bi 2-view breast inc cad ALTHEA SCREENING Radiology Routine Encounter for screening mammogram for breast cancer 1 Occurrences starting 05/23/2022 until 06/22/2023 [facility] Work Phone: Comment on above: 1 Occurrences starting 05/23/2022 until 06/22/2023 SPIROMETRY - BASELIN E AND POST DILATOR SPIROMETRY - BASELINE AND POST DILATOR PFT Routine Shortness of breath 12/06/2023 2:01 PM EST [facility] Work Phone: End: 02-26-2025 STRESS ECHO DOBUTAMINE STRESS ECHO DOBUTAMINE Cardiology Routine Chest pain, unspecified type SOBOE (shortness of breath on exertion) 1 Occurrences starting 02/27/2024 until 02/26/[address] [facility] Comment on above: 1 Occurrences starting 02/27/2024 until 02/26/2025 End: 12-24-2023 Thyrotropin [Units/volume] in Serum or Plasma TSH BLD Lab Routine Controlled type 2 diabetes mellitus without complication, with long-term current use of insulin (HCC) Every 3 months for 24 Occurrences starting 12/24/2022 until 12/24/2023 [facility] Work Phone: Comment on above: Every 3 months for 24 Occurrences starti ng 12/24/2022 until 12/24/2023 End: 02-22-2024 US EXTREMITY MASS/FLUID COLLECTION LEFT US EXTREMITY MASS/FLUID COLLECTION LEFT Radiology Routine Subcutaneous nodules 1 Occurrences starting 01/23/2023 until 02/22/2024 [facility] Work Phone: Comment on above: 1 Occurrences starting 01/23/2023 until 02/22/2024 [facility] Immunizations Immunization Date Immunization Notes Care Provider Drea ohara 08-09-2023 pneumococcal Conjuga te, unspecified formulation Jaime Spencer LACQUER MIXER.SUPERINTENDENT PRESSURE Work Phone: [facility] Work Phone: 08-09-2023 influenza, injectabl e, quadrivalent, contains preservative Jaime Spencer LACQUER MIXER.SUPERINTENDENT PRESSURE Work Phone: [facility] Work Phone: 08-09-2023 pneumococcal (PCV20) vaccine, 20 valent (PREVNAR 20) Jaime Sweets LACQUER MIXER.SUPERINTENDENT PRESSURE Work Phone: [facility] Work Phone: 08-09-2023 influenza virus vacc ine, unspecified formulation Jaime Spencer LACQUER MIXER.SUPERINTENDENT PRESSURE Work Phone: [facility] 10-02-2021 influenza, injectabl e, quadrivalent, contains preservative Lala Older LACQUER MIXER.EQUAL OPPORTUNITY ASSISTANT Work Phone: [facility] 10-02-2021 pneumococcal polysaccharide vaccine, 23 valent Lala Older LACQUER MIXER.EQUAL OPPORTUNITY ASSISTANT Work Phone: [facility] 10-02-2021 tetanus toxoid, redu edith diphtheria toxoid, and acellular pertussis vaccine, adsorbed Lala Older LACQUER MIXER.EQUAL OPPORTUNITY ASSISTANT Work Phone: [facility] 10-02-2021 influenza virus vacc ine, unspecified formulation Lala Older LACQUER MIXER.EQUAL OPPORTUNITY ASSISTANT Work Phone: [facility] 06-23-2021 COVID-19 vaccine, ag e 12+ yr (Verifico-GEOCOMtms - PURPLE TOP) Lala Older LACQUER MIXER.EQUAL OPPORTUNITY ASSISTANT Work Phone: [facility] 09-15-2020 influenza, injectabl e, quadrivalent, contains preservative Lala Older LACQUER MIXER.EQUAL OPPORTUNITY ASSISTANT Work Phone: [facility] 11-22-2009 novel influenza-H1N1 -09, preservative-free, injectable Lala Harrison LACQUER MIXER.EQUAL OPPORTUNITY ASSISTANT Work Phone: [facility] Payers Date Payer Category Payer Self-pay 2022 Medicaid [id number] 2013 Medicaid [employer] [facility] [id number] 2013-Present [phone] [address] [place] [address] Medicaid [id number] 2013 Medicaid [id number] 1960 Unknown [id number] Unknown [id number] Unknown [id number] Unknown [id number] Social History Date Type Detail Facility Start: 12-07-2020 End: 07-09-2023 Tobacco smoking status NHIS Never smoked tobacco [facility] Start: 10-02-2021 End: 02-22-2023 Alcohol intake Current non-drinker of alcohol (finding) [facility] Start: 12-07-2020 History SDOH Alcohol Frequency [address] [facility] Start: 12-07-2020 History SDOH Social Connections Phone [address] [facility] Start: 12-07-2020 History SDOH Social Connections Living [address] [facility] Start: 12-07-2020 History SDOH Physica l Activity DPW [address] [facility] Start: 12-07-2020 History SDOH Stress 4 [facility] Start: 12-07-[address] [facility] Start: 1960 Sex Assigned At Not on file [facility] Start: 05-12-2022 End: 07-10-2022 Exposure to SARS-CoV-2 (event) Not sure [facility] Start: 05-28-2022 History SDOH Housing Unable to Pay [address] [facility] Start: 12-07-2020 End: 01-23-2023 Tobacco use and exposure Smokeless tobacco non-user [facility] Work Phone: Start: 1960 Sex Assigned At Female C [facility] Start: 05-28-2022 End: 03-06-2023 History of Social function [facility] Start: 05-28-2022 End: 03-06-2023 Social connection and isolation panel [facility] Start: 09-28-2012 End: 08-17-2025 In a typical week, how many times do you talk on the telephone with family, friends, or neighbors? Patient refused [facility] Are you now , , , , never or living with a partner? Refused [facility] (I/We) worried desire er (my/our) food would run out before (I/we) got money to buy more. DK or Refused [facility] Start: 01-07-2023 Gender identity Identifies as female gender (finding) [facility] Start: 01-07-2023 Sexual orientation Heterosexual (fin ding) [facility] Do you feel stress - tense, restless, nervous, or anxious, or unable to sleep at night because your mind is troubled all the time - these days [OSQ] Rather much [facility] Tobacco smoking status [facility] Start: 01-24-2024 End: 04-16-2025 Alcohol intake Ex-drinker (finding) [facility] Start: 08-31-2020 Sex Female (finding) [facility] Medical Equipment Procedure Code Equipment Code Equipment Original Text Equipment Identifier Dates [id number], [id number], [id number], [id number], [id number], [id number], [id number], [id number], [id number], [id number], [id number], [id number], [id number], [id number], [id number], [id number] Start: 07-28-2021 End: 03-30-2025 Comment on above: [...] Status Date Assessment Result Facility 08-17-2025 [facility] 08-17-2025 Functional Status Independent [facility] 07-15-2023 Functional Status ID band on, Allergy Band on, Call device within reach, Bed in low position, Wheels locked, Upper/Half-Length side-rails up, Phone within reach, personal items within reach, Bedside Cart Locked, Visitor at bedside [facility] 06-29-2023 Functional Status Independent [facility] 06-29-2023 Functional Status Standard Safet y ID band on, Allergy Band on, Call device within reach, Bed in low position, Safety level maintained [facility] 06-27-2022 Are you deaf, or do you have serious difficulty hearing No 06/27/2022 5:36 PM Monik Daniel MD [facility] 06-27-2022 Are you blind, or do you have serious difficulty seeing, even when wearing glasses No 06/27/2022 5:36 PM Monik Daniel MD No [facility] 06-27-2022 Do you have serious difficulty walking or climbing stairs No 06/27/2022 5:36 PM Monik Daniel MD [facility] 06-27-2022 Do you have difficul ty dressing or bathing No 06/27/2022 5:36 PM Monik Daniel MD [facility] 06-27-2022 Because of a physica l, mental, or emotional condition, do you have difficulty doing errands alone such as visiting a physician's office or shopping No 06/27/2022 5:36 PM Monik Daniel MD No [facility] Mental Status Date Assessment Result Facility 08-17-2025 Mental Status Orientation Oriented x 4 [facility] 07-15-2023 Mental Status Oriented x 4 [facility] 06-29-2023 Mental Status Orientation Oriented x 4 [facility] 06-29-2023 Mental Status [facility] 06-27-2022 Because of a physica l, mental, or emotional condition, do you have serious difficulty concentrating, remembering, or making decisions No 06/27/2022 5:36 PM Monik Daniel MD No [facility] Clinical Notes 10-15-2006 to 09-03-2025 Note Date & Type Note Facility 09-03-2025 Note HNO ID: [id number] Author: LALA HARRISON APRN.EQUAL OPPORTUNITY ASSISTANT Service: ? Author Type: Nurse Practitioner Type: Progress Notes Filed: 09/06/2025 12:56 Note Text: CC: Patient presents with: Recheck: BP follow up HPI Irma Stewart is a 65 year old female who presents today for BP follow up. Recently had metoprolol increased to better manage this. Recording using Zvents software for draft documentation of the visit was discussed with the patient/authorized customer solutions representative; all questions welcomed and answered. Patient/authorized customer solutions representative agreed to proceed Irma Stewart is [...] vaginal ALLERGIES Betadine [Povidone-Iodine], Glimepiride, Haldol [Haloperidol], [place], Metformin, Neurontin [Gabapentin], Penicillins, Risperidone, Tylenol [Acetaminophen], [...] 1 application to (more content not included)... [facility] 08-25-2025 Note HNO ID: [id number] Author: MONIK HACKETT MD Service: ? Author [...] DULoxetine (CYMBALTA) 40 mg cpDR Insulin [place], Disposable, (BD ULTRAFINE III MINI PEN) 31 [...] fatigue, (+) un (more content not included)... [facility] 08-25-2025 Note HNO ID: [id number] Author: ELISA FERRER RT(R) Service: ? Author Type: Biological Science Aide Type: Progress Notes Filed: 08/25/2025 10:58 Note [...] PATIENT PRESENTS WITH AN IMPLANTABLE OR ATTACHED PRECIPITATION EQUIPMENT TENDER: No RADIOLOGY DEPARTMENT: General X-ray: Exam(s) Completed: Spine X-Ray(s): Lumbar AP / LAT / L5-S1 PERIPHERAL IV DATA: Not applicable SIGNED BY: RT Deven(R) August 25, 2025 10:37 AM [facility] 08-20-2025 Note HNO ID: [id number] Author: LALA HARRISON APRN.EQUAL OPPORTUNITY ASSISTANT Service: ? Author Type: Nurse Practitioner Type: Progress Notes Filed: 08/20/2025 11:01 Note Text: CC: Patient presents with: Recheck HPI Irma Stewart is a 65 year old female who presents today for multiple concerns. Is accompanied by significant other.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 #: [id number] FUTURE LIPID PANEL BASIC [SQLIPB] Order #: [id number] FUTURE Prescriptions as of 09/25/2024 - oxybutynin [...] a day with meals. - Insulin [place], Disposable, (BD ULTRAFINE III MINI PEN) 31 [...] both ears [H81. (more content not included)... [facility]10-24-2024 Telephone encounter Note* Telephone Encounter - Inocencia [...] Lowery RN August 20, 2024 1:[address] [facility]10-24-[facility]24 Miscellaneous Notes* Telephone Encounter - Inocencia [...] 20, 2024 1:29 PM documented in [facility]10[facility]24 Telephone encounter Note * Telephone Encounter [...] Please advise. Thank you. Nidia Silverio LPN. [facility]-16[facility] Miscellaneous Notes* Telephone Encounter - Nidia [...] you. Nidia Silverio LPN. documented in this encounterMount [facility]10-[facility]-2024 Telephone encounter Note * Telephone Encounter [...] Please advise. Thank you. Nidia Silverio LPN. [facility] Miscellaneous Notes* Telephone Encounter - Nidia [...] you. Nidia Silverio LPN. documented in this encounterMount [facility]. [facility]10-[facility]-2024 Telephone encounter Note * Telephone Encounter [...] Please advise. Thank you. Nidia Silverio LPN. [facility] Miscellaneous Notes* Telephone Encounter - Nidia [...] you. Nidia Silverio LPN. documented in this encounterMount [facility]. [facility]08-30-2024 Telephone encounter Note * Telephone Encounter [...] Pablo LPN June 26, 2024 2:[address] [facility]08-30-2024 Miscellaneous Notes* Telephone Encounter - Mary [...] 26, 2024 2:31 PM documented in [facility] encounterMount [facility]. [facility]08-27-2024 Telephone encounter Note * Telephone Encounter - Romi Pandya LPN - 06/23/2024 10:47 AM EDT Spoke with pt and information listed below given. Pt verbalizes understanding. Romi Pandya LPN [facility]08-27-2024 Miscellaneous Notes* Telephone Encounter - Romi Pandya LPN - 06/23/2024 10:47 AM EDT Spoke with pt and information listed below given. Pt verbalizes understanding. Romi Pandya LPN * Telephone Encounter - Lala Harrison APRN.CNP - 06/18/2024 2:34 PM EDT Due for vit d level. Order is placed. Thank you Lala Harrison APRN.EQUAL OPPORTUNITY ASSISTANT * Telephone Encounter - Nidia Silverio LPN [...] TAKE 1 TABLET BY MOUTH TWICE WEEKLY [id number], THEN DECREASE TO 1 TABLET WEEKLY DIRECTED. Date of last office visit in primary care: 05/06/2024 Date of next office visit in primary care: 06/26/2024 Please advise. Thank you. Nidia Silverio LPN. documented in this encounterMount [facility]. [facility]08-22-2024 Telephone encounter Note * Telephone Encounter - Lala Harrison APRN.CNP - 06/18/2024 2:34 PM EDT Due for vit d level. Order is placed. Thank you Lala Harrison APRN.CNP [facility]08-22-[facility]24 Telephone encounter Note* Telephone Encounter - [...] TAKE 1 TABLET BY MOUTH TWICE WEEKLY [id number], THEN DECREASE TO 1 TABLET WEEKLY DIRECTED. Date of last office visit in primary care: 05/06/2024 Date of next office visit in primary care: 06/26/2024 Please advise. Thank you. Nidia Silverio LPN. [facility] Telephone encounter Note* Telephone Encounter - Yudith Rodriguez LPN - 06/12/2024 9:50 AM EDT [employer] message requesting the following refill Refill(s) Requested: Requested Prescriptions Pending Prescriptions Disp Refills insulin glargine-yfgn (SEMGLEE,INSULIN GLARG-YFGN,PEN) 100 unit/mL (3 mL) insulin pen 15 mL 3 ALLERGIES Allergen Reactions Betadine [Povidone-* Unknown Glimepiride Intolerance Diarrhea Haldol [Haloperidol] Other: See Comments Headache/hallucinations [place] Other: See Comments Hallucinations Metformin Diarrhea Neurontin [Gabapent* Intolerance felt poorly Penicillins Unknown Okay to take amoxil Tylenol [Acetaminop* Intolerance Victoza [Liraglutid* GI Upset (cell) Last Office Visit Date: 05/06/2024 Last [facility] Visit: Visit date not found Future Appointment: 06/17/2024 The patients preferred pharmacy has been captured for this encounter? yes Request is for script(s) to be escript to pharmacy. Yudith Rodriguez LPN [facility]08-16-2024 Miscellaneous Notes* Telephone Encounter - Yudith Rodriguez LPN - 06/12/2024 9:50 AM EDT [employer] message requesting the following refill Refill(s) Requested: Requested Prescriptions Pending Prescriptions Disp Refills insulin glargine-yfgn (SEMGLEE,INSULIN GLARG-YFGN,PEN) 100 unit/mL (3 mL) insulin pen 15 mL 3 ALLERGIES Allergen Reactions Betadine [Povidone-* Unknown Glimepiride Intolerance Diarrhea Haldol [Haloperidol] Other: See Comments Headache/hallucinations [place] Other: See Comments Hallucinations Metformin Diarrhea Neurontin [Gabapent* Intolerance felt poorly Penicillins Unknown Okay to take amoxil Tylenol [Acetaminop* Intolerance Victoza [Liraglutid* GI Upset (cell) Last Office Visit Date: 05/06/2024 Last [facility] Visit: Visit date not found Future Appointment: 06/17/2024 The patients preferred pharmacy has been captured for this encounter? yes Request is for script(s) to be escript to pharmacy. Yudith Rodriguez LPN documented in this encounterMount [facility]. [facility]08-[facility]-2024 Telephone encounter Note * Telephone Encounter [...] Heydi Braswell LPN. Rx needs sent to [facility]. [facility] won't give refill. [facility]08-05-2024 Miscellaneous Notes* Telephone Encounter - Heydi [...] Heydi Braswell LPN. Rx needs sent to [facility]. [facility] won't give refill. documented in this encounterMount [facility]. [facility]07-12-2024 Telephone encounter Note * Telephone Encounter - Amira Fisher LPN - 05/08/2024 12:13 PM EDT Patient notified of providers message and verbalized understanding. [facility]-12-[facility]24 Miscellaneous Notes* Telephone Encounter - Amira [...] and send in today. documented in this encounterMount [facility]. [facility]07-12-2024 Telephone encounter Note * Telephone Encounter [...] Will update note and send in today. [place] [id number] Instructions* Patient Instructions* Lala Harrison APRN.CNP - 05/06/2024 5:33 PM EDT Check blood sugar fasting first thing when waking up and 2 hours after a meal documented in this encounterMount St. [facility]07-10-2024 History of Present illness Narrative* Lala Harrsion APRN.CNP - 05/06/2024 5:15 PM EDT CC: [...] vaginal ALLERGIES Betadine [Povidone-Iodine], Glimepiride, Haldol [Haloperidol], [place], Metformin, Neurontin [Gabapentin], Penicillins, Tylenol [Acetaminophen], and [...] Take 1 tablet by mouth twice weekly [id number], then decrease to 1 tablet weekly. oxybutynin [...] Takes blood sugar twice daily) Insulin [place], Disposable, (BD ULTRAFINE III MINI PEN) 31 gauge x 3/16" 1 Each two times a day. rosuvastatin (CRESTOR) 10 mg tablet Take 1 tablet by mouth daily at bedtime. pregabalin (LYRICA) 100 mg capsule Take 1 capsule by mouth two times a day for 180 days. To be taken with 75 mg capsule to total 175 mg twice daily. [facility] Use as needed to monitor oxygen [...] plan. Lala Harrison APRN.CNP documented in this encounterMount [facility]. [facility]07-03-2024 Instructions* Patient Instructions* Ashley Venegas APRN.CNP [...] help with weight loss. documented in this encounterMount [facility]. [facility]07-03-2024 Procedure note* Sary Servin RPFT - 04/29/2024 2:01 PM EDT FENO:Patient was unable to perform test to obtain a result. Several attempts made. [address]03-2024 Procedure note* Sary Servin RPFT - 04/29/2024 2:01 PM EDT FENO:Patient was unable to perform test to obtain a result. Several attempts made. documented in this encounterMount [facility]. [facility]07-03-2024 Nurse Note* Cora Betts LPN - 04/29/2024 1:54 PM EDT Intake information documented in the prior visit with ALESSANDRO Velasquez today. [facility]07-03-2024 Nurse Note* Cora Betts LPN - 04/29/2024 1:54 PM EDT Intake information documented in the prior visit with ALESSANDRO Velasquez today. [place] [address] History of Present illness Narrative* Click, Ashley Narayan APRN.EQUAL OPPORTUNITY ASSISTANT - 04/29/2024 1:30 PM EDT Images from [...] Comment:Diarrhea Haldol [Haloperidol] Other: See Comments Comment:Headache/hallucinations [place] Other: See Comments Comment:Hallucinations Metformin Diarrhea Neurontin [...] Take 1 tablet by mouth twice weekly [id number], then decrease to 1 tablet weekly. ferrous sulfate 325 mg (65 mg iron) tablet Take 1 tablet by mouth two times a day with meals. Insulin [place] (Disposable) 31 gauge x 3/16" Commonly known [...] mg twice daily. PULSE OXIMETER [facility] Use as needed to monitor oxygen [...] 04/29/2024 Time: 3:53 PM documented in this encounterMount [facility]. [facility]07-03-2024 Telephone encounter Note * Telephone Encounter - Lala Harrison APRN.CNP - 04/29/2024 10:58 AM EDT PDMP website checked and validated. All prescriptions have been APPROPRIATELY filled. No suspiciousactivity was identified. 04/29/2024 by Lala Harrison APRN.CNP [facility]07-03-2024 Miscellaneous Notes* Telephone Encounter - Lala Harrison APRN.CNP - 04/29/2024 10:58 AM EDT PDMP website checked and validated. All prescriptions have been APPROPRIATELY filled. No suspiciousactivity was identified. 04/29/2024 by Lala Harrison APRN.EQUAL OPPORTUNITY ASSISTANT * Telephone Encounter - Anupama Schwartz LPN [...] 28, 2024 7:16 AM documented in this encounterMount [facility]07-02-2024 Telephone encounter Note * Telephone Encounter [...] Schwartz LPN April 28, 2024 7:[address] [facility]07-02-2024 Miscellaneous Notes* Telephone Encounter - Anupama [...] 28, 2024 7:17 AM documented in this encounterMount [facility]07-02-2024 Telephone encounter Note * Telephone Encounter [...] Schwartz LPN April 28, 2024 7:[address] [facility]06-13-2024 Telephone encounter Note* Telephone Encounter - [...] FRANCISCO Broderick April 09, 2024 7:[address] [facility]06-13-2024 Miscellaneous Notes* Telephone Encounter - Brea [...] 09, 2024 7:41 AM documented in this encounterMount [facility]. [facility]05-21-2024 Telephone encounter Note * Telephone Encounter - Lana Mckenzie LPN - 03/17/2024 4:19 PM EDT Patient aware. Patient is going to have phone number change and will call clinic with new number. Lana Mckenzie LPN [place] [address]-21-2024 Miscellaneous Notes* Telephone Encounter - Lana Mckenzie [...] 03/17/2024 8:39 AM EDT Denial rec'd from [facility] for fezlinetant. It doesn't say what is covered. Reviewed discount cards. That would be around 500$ per month. * Telephone Encounter - Camila Lees MA - 2024 10:47 AM EDT Prior Authorization has been completed online at [employer] for Pily, will await response. [id number]-BTERJJQL Please keep encounter open until final decision has been received and documented from insurance company. Camila Lees MA documented in this encounterMount [facility]. [facility]05-21-2024 Telephone encounter Note * Telephone Encounter - Jaime Spencer APRN.CNS - 03/17/2024 4:11 PM EDT ok [facility]-21-[facility]24 Telephone encounter Note* Telephone Encounter - Amira Fisher LPN - 03/17/2024 3:04 PM EDT Spoke with patient and she would like to try the low-dose paroxetine to see if that would help. Shedoesn't want to try the gabapentin due to side effects. Also patient has requested a refill on the Lantus. Prescription is pending. [facility]-21-[facility] Telephone encounter Note* Telephone Encounter - Jaime Spencer APRN.CNS - 03/17/2024 1:52 PM EDT Please let Irma Stewart know. Can consider low-dose paroxetine or gabapentin for hot flashes if she would like. [facility]05-21-[facility]24 Telephone encounter Note* Telephone Encounter - Chloe Booker LPN - 03/17/2024 8:39 AM EDT Denial rec'd from [facility] for libbydaniel. It doesn't say what is covered. Reviewed discount cards. That would be around 500$ per month. [facility]05-20-[facility] Telephone encounter Note* Telephone Encounter - Camila Lees MA - 2024 10:47 AM EDT Prior Authorization has been completed online at [employer] for [employer], will await response. BRAVO-BTERJJQL Please keep encounter open until final decision has been received and documented from insurance company. Camila Lees MA [facility]05-17-2024 Telephone encounter Note* Telephone Encounter - Jaime Spencer APRN.CNS - 03/13/2024 7:29 AM EDT Yes rx sent. [facility]-17-2024 Miscellaneous Notes* Telephone Encounter - Jaime [...] PM EDT ----- Message from Jaime Spencer APRN.SUPERINTENDENT PRESSURE sent at 03/12/2024 4:37 PM EDT ----- CBC CMP TSH are in acceptable range. A1c shows decreased control compared to previous. Check to seeif taking medications for DM as ordered. documented in this encounterMount [facility]. [facility]05-16-2024 Telephone encounter Note * Telephone Encounter [...] and she will start taking it again. [facility]05-16-2024 Telephone encounter Note* Telephone Encounter - Amira Fisher LPN - 03/12/2024 4:50 PM EDT ----- Message from Jaime Spencer APRN.SUPERINTENDENT PRESSURE sent at 03/12/2024 4:37 PM EDT ----- CBC CMP TSH are in acceptable range. A1c shows decreased control compared to previous. Check to seeif taking medications for DM as ordered. [facility]05-02-[facility] History of Present illness Narrative* Jaime Spencer APRN.SUPERINTENDENT PRESSURE - 02/27/2024 2:20 PM EDT SUBJECTIVE: Diabetic [...] has been seen by Dr. Camila Johns city clerk. Ordered albuterol sulfate and budesonide/formoterol fumarate. Noted [...] Diarrhea Haldol [Haloperidol] Other: See Comments Headache/hallucinations [place] Other: See Comments Hallucinations Metformin Diarrhea Neurontin [Gabapent* Intolerance felt poorly Penicillins Unknown Okay to take amoxil Tylenol [Acetaminop* Intolerance Victoza [Liraglutid* GI Upset Medications ergocalciferol 50,000 unit capsule (VITAMIN D2, DRISDOL) Take 1 capsule by mouth one time a week. TO BE TAKEN ORALLY DIRECTED. Take 1 tablet by mouth twice weekly [id number], then decrease to 1 tablet weekly. oxybutynin [...] Takes blood sugar twice daily) Insulin [place], Disposable, (BD ULTRAFINE III MINI PEN) 31 [...] Abs Lymph 1.00 - 4.00 k/uL 1.52 [place]% % 6.7 Abs [place] <0.87 k/uL 0.28 [place]% % 2.2 Abs [...] (SHINGRIX) - RSV VACCINE, BIVALENT (ABRYSVO) - PFIZER-GEOCOMtms COVID-19 VACCINE (2022- [place]) AGE 12+ YR Reschedule with rheumatology, previously NANCY positive. 1 mo follow up CAMPOS Barcenas APRN.CNS Medical Decision Making: Problems: Moderate: 2+ stable chronic illnesses Data: Unique test(s) ordered: 2 Risk: Moderate: Drug management Medical Decision Making Level: 4 - Moderate documented in this encounterMount [facility]04-[facility]-2024 Telephone encounter Note * Telephone Encounter [...] does not always hear her phone ringing. [facility] Miscellaneous Notes* Telephone Encounter - Mary [...] 2021. Romi Pandya LPN documented in this encounterMount [facility]. [facility]04-19-2024 Miscellaneous Notes* Telephone Encounter - Romi [...] you. Anupama Andrade LPN. documented in this encounterMount [facility]. [facility]04-12-2024 Miscellaneous Notes* Telephone Encounter - Anupama [...] you. Anupama Andrade LPN. documented in this encounterMount [facility]. [facility]04-11-2024 Telephone encounter Note * Telephone Encounter - Romi Pandya LPN - 02/06/2024 3:18 PM EDT Left a message for pt to call the office. Records show medication be last prescribed in 2021. Romi Pandya LPN [facility]03-12-2024 Miscellaneous Notes* Telephone Encounter - Anupama [...] you. Anupama Andrade LPN. documented in this encounterMount [facility]. [facility]03-12-2024 Miscellaneous Notes* Telephone Encounter - Kelsi [...] you. Kelsi Mcmullen MA. documented in this encounterMount [facility]. [facility]02-15-2024 Miscellaneous Notes* Telephone Encounter - Rhona Lai RN - 12/12/2023 1:07 PM EST Patient notified of message below. Patient voiced understanding. Rhona Lai RN * Telephone Encounter - oRmi Pandya LPN - 12/11/2023 10:34 AM EST Left a message for pt to call the office and ask to speak to a nurse. Romi Pandya LPN * Telephone Encounter - Lala Harrison APRN.EQUAL OPPORTUNITY ASSISTANT - 12/11/2023 9:13 AM EST Please let patient know this is now considered a controlled substance which is why her previous provider probably had more ability to prescriber more refills then we are able to now. Thank you Lala Harrison APRN.EQUAL OPPORTUNITY ASSISTANT PDMP website checked and validated. All prescriptions [...] you. Anupama Andrade LPN. documented in this encounterMount [facility]. [facility]02-[facility]-2024 Miscellaneous Notes* Telephone Encounter - Rhona [...] to pulmonology for further evaluation Yasmine Martinez APRN.EQUAL OPPORTUNITY ASSISTANT documented in this encounterMount [facility]. [facility]02-14-2024 Miscellaneous Notes* Telephone Encounter - Anupama Andrade LPN - 12/11/2023 8:44 AM EST Patient has been identified by name and date of : No Patient phones for refill(s): Requested Prescriptions Pending Prescriptions Disp Refills Insulin [place], Disposable, (BD ULTRAFINE III MINI PEN) 31 gauge x 3/16" 100 Each 3 Si Each two times a day. Date of last office visit in primary care: 11/04/2023 Date of next office visit in primary care: 12/10/2023 Please advise. Thank you. Anupama Andrade LPN. documented in this encounterMount [facility]. [facility]02-14-2024 Miscellaneous Notes* Telephone Encounter - Brea [...] Thank you. FRANCISCO Broderick. documented in this encounterMount [facility]. [facility]02-12-2024 Miscellaneous Notes* Telephone Encounter - Christoph Mckeon Ma - 12/09/2023 11:13 AM EST Pt notified via [employer]. * Telephone Encounter - Yasmine Martinez APRN.CNP - 12/09/2023 7:29 AM EST Please fax copy of my office note from 11/04, oxygen order and pulse ox with ambulation results to [facility]. Please let patient know we are faxing the order Yasmine Martinez APRN.EQUAL OPPORTUNITY ASSISTANT documented in this encounterMount [facility]. [facility]02-[facility]-2024 Miscellaneous Notes* Telephone Encounter - Anupama [...] you. Anupama Andrade LPN. documented in this encounterMount [facility]. [facility]02-09-2024 Procedure note* Sary Servin RPFT - [...] R Index Finger 30 Wheeled Walker NAME: LAESSANDRO Velasquez PATIENT NAME: Irma Stewart DATE: December 06, 2023 TIME: 3:09 PM Comment: documented in this encounterMount [facility]. [facility]02-09-2024 History of Present illness Narrative* Sary Servin RPFT - 12/06/2023 2:49 PM EST PULM FUNCTION SMARTBLOCK: Provider: Yasmine Martinez APRN.EQUAL OPPORTUNITY ASSISTANT Assisting Tech: Sary Servin RPFT Spirometry w/BD: 1 DLCO: 1 LV - Box: 1 Oximetry - Ambulation: [address] [facility]02-[facility]-2024 Miscellaneous Notes* Telephone Encounter - Inocencia Lowery RN - 12/02/2023 4:44 PM EST Dusty from [facility] calling to say patient needs further testing [...] & recent PSG study results faxed to: [facility] [phone]. Marc Ledezma MA * Telephone Encounter - [...] but plans to reschedule. documented in this encounterMount [facility]. [facility]01-29-2024 History of Present illness Narrative* Yumiko [...] PATIENT PRESENTS WITH AN IMPLANTABLE OR ATTACHED PRECIPITATION EQUIPMENT TENDER: No RADIOLOGY DEPARTMENT: General X-ray: Exam(s) Completed: Upper Extremity X- Ray(s): Fingers/Thumb, right PERIPHERAL IV DATA: Not applicable SIGNED BY: RT Rafa(R) November 25, 2023 7:04 PM documented in this encounterMount [facility]. [facility]01-08-2024 History of Present illness Narrative* Carine [...] 04, 2023 2:[address] [facility] [address] [facility]12-08-2023 Miscellaneous Notes* Telephone Encounter - Christoph Mckeon Ma - 10/04/2023 12:15 PM EST ROSALIA: 08/09/2023 Last refill: 08/09/2023 QTY: 60 Refills: [address] [facility]12-08-2023 Miscellaneous Notes* Telephone Encounter - Christoph Mckeon Ma - 10/04/2023 12:12 PM EST ROSALIA: 08/09/2023 Last refill: 08/13/2023 QTY: 60 Refills: [address] [facility] [facility] Misc[facility] Notes* Telephone Encounter - Lisa Helm Ma - 10/02/2023 6:25 PM EST Order faxed. * Telephone Encounter - Lala Harrison APRN.EQUAL OPPORTUNITY ASSISTANT - 10/02/2023 6:20 PM EST Orders placed. Please fax pulse ox order as requested. Thank you Lala Harrison APRN.EQUAL OPPORTUNITY ASSISTANT * Telephone Encounter - Kelsi Mcmullen MA - 10/01/2023 12:56 PM EST Orders pended documented in [facility]23 Miscellaneous Notes* Telephone Encounter - Nidia Silverio LPN - 10/01/2023 12:54 PM EST [facility], Patient has refills of Alcohol swabs, Pharmacy will get ready for Patient to pickup. Nidia Silverio LPN documented in this encounterMount [facility]. [facility]12[facility]2023 Miscellaneous Notes* Telephone Encounter - Nidia Silverio LPN - 10/01/2023 12:53 PM EST [facility]oke to [facility], Patient has refills of BD Ultrafine pen needles 31x3/16. Pharmacy will get ready for Patient to pickup. Nidia Silverio LPN documented in this encounterMount [facility]. [facility]12-[facility]-2023 Miscellaneous Notes* Telephone Encounter - Nidia [...] you. Nidia Silverio LPN. documented in this encounterMount [facility]. [facility]12-[facility]-2023 Miscellaneous Notes* Telephone Encounter - Nidia [...] you. Nidia Silverio LPN. documented in this encounterMount [facility]. [facility]11-[facility]-2023 Miscellaneous Notes* Telephone Encounter - Tanya [...] you, Constance Humphries PharmD Primary Care Clinical Cafeteria Aide 08/30/2023 1:37 PM * Telephone Encounter - Constance Humphries RPh - 08/27/2023 3:42 PM EDT Called patient for scheduled pharmacy phone follow up; unable to reach after multiple attempts. Left VM with phone number to reschedule. Constance Humphries PharmD Primary Care Clinical Cafeteria Aide documented in this encounterMount [facility]. [facility]10-26-2023 Miscellaneous Notes* Telephone Encounter - Iveth [...] you. Iveth Nye LPN. documented in this encounterMount [facility]. [facility]10-17-2023 Miscellaneous Notes* Telephone Encounter - Jaime [...] encounter has been addressed. documented in this encounterMount [facility]. [facility]10-17-2023 Telephone encounter Note * Telephone Encounter [...] applicable Please advise. Thank you. Anupama Andrade. [facility] Miscellaneous Notes* Telephone Encounter - Anupama [...] and advise. Hema Mcclelland documented in this encounterMount [facility]. [facility]10-17-2023 Telephone encounter Note * Telephone Encounter [...] daily Please review and advise. Hema Mcclelland [facility]10-13-[facility]23 Instructions* Patient Instructions* Jaime Spencer APRN.CNS [...] Continue on with iron documented in this encounterMount St. Mary [facility]10-13-2023 History of Present illness Narrative* Jaime [...] visit notes indicate she has been in [place] ER for severe pain. Reported referred to [...] pain previously seen by pain management Dr. aMrinelli for injections whichwere not helpful. Uses a [...] with fibromyalgia by Dr. Garcia at [facility] orthopedics. Reports she was referred to Dr. Conrad Springer, plans to see him at [facility] in [facility]. States he is a fibromyalgia specialist. [...] Diarrhea Haldol [Haloperidol] Other: See Comments Headache/hallucinations [place] Other: See Comments Hallucinations Metformin Diarrhea Neurontin [...] Take 1 tablet by mouth twice weekly o7kyalq, then decrease to 1 tablet weekly. ferrous sulfate 325 mg (65 mg iron) tablet Take 1 tablet by mouth two times a day with meals. furosemide (LASIX) 20 mg tablet Take 1 tablet by mouth once daily. Alternate 2 pills with 1 pill daily Insulin [place], Disposable, (BD ULTRAFINE III MINI PEN) 31 [...] Abs Lymph 1.00 - 4.00 k/uL 1.52 [place]% % 6.7 Abs [place] <0.87 k/uL 0.28 Eosin% % 2.2 Abs [...] Level: 4 - Moderate documented in this encounterMount St. [facility]09-18-2023 Miscellaneous Notes* Telephone Encounter - Romi [...] Fisher. Romi Pandya LPN documented in this encounterMount St. Mary [facility]09-18-2023 Hospital Discharge instructions Patient Education 07/15/2023 [...] Arthritis Foundation www.arthritis.org National Fibromyalgia Association www.fmaware.org [place] Fibromyalgia Syndrome Association www.afsafund.org 1769-[address] [place] [address]. All rights reserved. This information is not intended as a substitute for professional medical care. Always follow yourhealthcare professional's instructions. Follow Up Care 07/15/2023 01:34:54 With:NAN MARQUIS Address: [place] FOR ER PT REFERRALS ONLY When:2-4 days [facility] 09-18-2023 Note Discharge Instructions Thank you [...] When Why Instructions Last Dose New acetaminophen-hydrocodone ([place] 325- 5 mg oral tablet) 1 [...] Arthritis Foundation www.arthritis.org National Fibromyalgia Association www.fmaware.org [place] Fibromyalgia Syndrome Association www.afsafund.org [phone] [employer]. [address] [place] [address], [place] [address]. All rights reserved. This information is not intended as a substitute for professional medical care. Always follow yourhealthcare professional's instructions. Additional Information VACCINATE! IT SAVES LIVES! Members of the community who have not yet received the COVID-19 vaccine and would like to receive it can visit one of [facility] vaccine clinics. There are many vaccine clinic locations within the [facility]. For locations and available times, please visit www.gettheshot.coronavirus.[place].gov/. It is important to note that some COVID mobile vaccine clinics are held outdoors and may be canceled in rainy or stormy conditions. To learn more about pediatric vaccinations (ages 5-11), we invite you to visit the [facility] webpage. https://www.Gochikurus.org/pages/[email or web address]-Uyyqj-Lmuozfupbbj-Ctaimconcy-Jfkri-Cqh stions.htmlTo learn more about the COVID-19 vaccine, we invite you to visit the CDC website for a list of frequently asked questions. https://www.cdc.gov/coronavirus/2019-ncov/vaccines/faq.html [facility] Patient Portal Access Instructions: Stay connected with your healthcare team and access your personal medical information anytime with the [facility] Patient Portal. If you would like a full copy of your medical records please contact the [facility] Medical Records Department Saturday through Saturday between 8a.m. and 4:30p.m. Please follow the directions below to access the portal: 1.Access the email account you provided upon registration to the hospital.2.Look for an invitation email from [facility].3.Open the email and access the invitation link: Accept Invitation to [facility]4.Fill in the required field to create your account. Sign into www.[email or web address] Communications with your username and password that you [...] you will allow to register on the [facility] Patient Portal for access to your information. You can also access the [facility] Patient Portal on the Claro wyatt. Simply click on "Health Records" under "[employer]" and then click on the [employer] logo. HOW TO SAFELY DISPOSE OF PRESCRIPTION [...] Call your local pharmacy or go to [email or web address].Pictarine/[email or web address] to find one close to you.3.Make use of household items: Use cat litter or old coffee grounds to dispose medications if other options arenot available. Mix your drugs with these household products, seal them in an airtight container andthrow it into the garbage. Call [facility]: [phone] to be sure your drugs can be [...] aware that I should contact my doctor. Patient/Punch Machine Hand Signature: Date/Time: Relationship to Patient: Witness Name/Signature: Date/Time: [facility]09-15-2023 Nurse Note* Sherly Storey Ma - 07/12/2023 11:57 AM EDT Pain level before Toradol injection at 11:28 AM 08/06 Pain level after injection at 11:37 AM was 11/06 [address] [facility]09-15-2023 History of Present illness Narrative* Lala Harrison APRN.EQUAL OPPORTUNITY ASSISTANT - 07/12/2023 10:55 AM EDT CC: Patient presents with: ED Follow-up: [facility] [facility] 06/29/23 HPI Irma Stewart is a 63 year old female who presents today for fibromyalgia pain. This is an established patient of Dr. Hackett'carol but my first time evaluating her. Has been in the ER in [place] for severe pain, per patient received multiple [...] cymbalta as ordered by psychiatry at the [facility]. REVIEW OF SYSTEMS General: no [...] vaginal ALLERGIES Betadine [Povidone-Iodine], Glimepiride, Haldol [Haloperidol], [place], Metformin, Neurontin [Gabapentin], Penicillins, Tylenol [Acetaminophen], and [...] - Controlled E11.9 Insulin: Yes Insulin [place], Disposable, (BD ULTRAFINE III MINI PEN) 31 [...] Take 1 tablet by mouth twice weekly c4wvdct, then decrease to 1 tablet weekly. ferrous [...] plan. Lala Harrison APRN.MICHAEL documented in this encounterMount St. Mary Hospital09-02-2023 Hospital Discharge instructions Patient Education 06/29/2023 [...] or legs Numbness in the groin area [phone] [employer]. [address] [place] [address]. All rights reserved. This information is not intended as a substitute for professional medical care. Always follow yourhealthcare professional's instructions. Follow Up Care 06/29/2023 19:52:09 With:MARIBELL GARCIA DO [facility] Address: [address] [facility] [place] [address]- [phone] When:2-4 days With:[facility] Address: When:2-4 days [facility] Address: [address] [place] [address]- [phone] When:2-4 days [facility] 09-02-2023 Emergency department Discharge summary Discharge Instructions Thank you for allowing [facility] to assist you with your healthcare needs. [...] Medicine When Within 2-4 days Where: [address] [facility] [place] [address]- [phone] Follow Up with [facility], Orthopaedics When Within 2-4 days Where: Follow Up with WILLY HUTSON APRN-MICHAEL When Within 2-4 days Where: [address] [place] [address]- [phone] Allergies Haldol lithium traMADol Medications Please ask [...] or legs Numbness in the groin area [phone] [employer]. [address] [place] [address]. All rights reserved. This information is not intended as a substitute for professional medical care. Always follow yourhealthcare professional's instructions. Additional Information VACCINATE! IT SAVES LIVES! Members of the community who have not yet received the COVID-19 vaccine and would like to receive it can visit one of [facility] vaccine clinics. There are many vaccine clinic locations within the [facility]. For locations and available times, please visit www.gettheshot.coronavirus.[place].gov/. It is important to note that some COVID mobile vaccine clinics are held outdoors and may be canceled in rainy or stormy conditions. To learn more about pediatric vaccinations (ages 5-11), we invite you to visit the [facility] webpage. https://www.[facility].org/pages/6738-Balpn-Jsqbzjevyqz-Egxhpechce-Mhxyj-Xkh stions.htmlTo learn more about the COVID-19 vaccine, we invite you to visit the CDC website for a list of frequently asked questions. https://www.cdc.gov/coronavirus/2019-ncov/vaccines/faq.html [facility] Patient Portal Access Instructions: Stay connected with your healthcare team and access your personal medical information anytime with the [facility] Patient Portal. If you would like a full copy of your medical records please contact the [facility] Medical Records Department Saturday through Saturday between 8a.m. and 4:30p.m. Please follow the directions below to access the portal: 1.Access the email account you provided upon registration to the [facility].2.Look for an invitation email from [facility].3.Open the email and access the invitation link: Accept Invitation to [facility]4.Fill in the required field to create your account. Sign into [email or web address] with your username and password that you [...] you will allow to register on the [facility] Patient Portal for access to your information. You can also access the [facility] Patient Portal on the [employer]act[employer]. Simply click on "Health Records" under "HealthData" [...] Call your local pharmacy or go to [email or web address].Pictarine/[email or web address] to find one close to you.3.Make use of household items: Use cat litter or old coffee grounds to dispose medications if other options arenot available. Mix your drugs with these household products, seal them in an airtight container andthrow it into the garbage. Call [facility]: [phone] to be sure your drugs can be [...] aware that I should contact my doctor. Patient/Punch Machine Hand Signature: Date/Time: Relationship to Patient: Witness Name/Signature: Date/Time: [facility]08-15-2023 Miscellaneous Notes* Telephone Encounter - Christoph Mckeon Ma - 06/11/2023 3:51 PM EDT ROSALIA: 02/22/2023 NOV: none scheduled. Last refill: 04/08/2023 QTY: 60 Refills: 1 [place] [address]-01-2023 Miscellaneous Notes* Telephone Encounter - Chloe Booker [...] wrote this message into the Office via [employer] 3 days ago. Hi Brunilda, I was [...] weight loss. My Ozempic was denied at [place], [place]. I don't know what I'm suppose [...] Prior Authorization has been completed online at [employer] for ozempic, will await response. BRAVO- [id number] Please keep encounter open until final decision has been received and documented from insurance company. Camila Lees MA * Telephone Encounter - Inocencia Lowery RN - 04/15/2023 4:45 PM EDT PRIOR AUTHORIZATION Medication for Prior Authorization: Ozempic Other formulary meds available : NO Insurance Company: [employer] phone number: Patient insurance ID number: [id number] Inocencia Lowery RN documented in this encounterMount St. [facility]07-31-2023 NoteHNO ID: [id number] Author: Ricardo Dinh RPh Service: ? Author [...] Diarrhea Haldol [Haloperidol] Other: See Comments Headache/hallucinations [place] Other: See Comments Hallucinations Metformin Diarrhea Neurontin [...] Insulin: Yes 100 Each 0 Insulin [place], Disposable, (BD ULTRAFINE III MINI PEN) 31 [...] Take 1 tablet by mouth twice weekly c4ghokd, then decrease to 1 tablet weekly. 24 [...] Date HBA1C 6.6 0 (more content not included)...[id number] History of Present illness Narrative* Ricardo Dinh, [facility] - 05/27/2023 3:00 PM EDT Primary Care [...] Diarrhea Haldol [Haloperidol] Other: See Comments Headache/hallucinations [place] Other: See Comments Hallucinations Metformin Diarrhea Neurontin [...] Insulin: Yes 100 Each 0 Insulin [place], Disposable, (BD ULTRAFINE III MINI PEN) 31 [...] Take 1 tablet by mouth twice weekly l5uqtab, then decrease to 1 tablet weekly. 24 [...] complication, with long-term current use of insulin ([facility]) - ICD9: 250.00, V58.67, ICD10: E11.9, [...] time was 35 minutes. documented [address] [facility]. [facility]07-27-2023 History of Present illness Narrative* Thom [...] 4 Planned Treatment Interventions: Canalith Repositioning Maneuvers (36970), Self- prison management (61128), Patient/Family/Caregiver Education, Body Mechanics Training PLAN FOR [...] WITH LEVEL OF FUNCTION: Positional Testing Right [place]-Hallpike: Symptomatic, No nystagmus (very mild with no [...] 1555 Thom Enamorado PT documented in this encounterMount St. [facility]07-07-2023 Miscellaneous Notes* Telephone Encounter - Jolene [...] you. Anupama Ceballos LPN documented in this encounterMount St. Mary Hospital06-26-2023 Miscellaneous Notes* Telephone Encounter - Christoph [...] you. Anupama Ceballos LPN documented in this encounterMount St. Mary Hospital06-23-2023 History of Present illness Narrative* Ursula Vegas - 04/19/2023 11:19 AM EDT POPULATION HEALTH NAVIGATION OUTREACH Action/FYI RP Outreach: LVM for Patient to call back and schedule ADEN Consult for Knee joint injury, initial encounter [S89.90XA]. [phone]. Any agent can assist. Patient Identified by Name and : YES, via [employer] Outreach Outcome/Action Unable to reach patient: Left message Did you use a PCP flex slot to schedule this appointment? No Reason for Outreach Care Gap or Scheduling/Wellness visits Payer: Payor: [employer] MEDICAID / Plan: [facility] MEDICAID / Product Type: Medicaid / [...] 19, 2023 11:19 AM documented in this encounterMount St. Mary Hospital06-20-2023 History of Present illness Narrative* Sarabjitrishi Shasta - 04/16/2023 11:02 AM EDT POPULATION HEALTH NAVIGATION OUTREACH Action/FYI RP Outreach: LVM for Patient to call back and schedule ADEN Consult for Knee joint injury, initial encounter [S89.90XA]. [phone]. Any agent can assist. Patient Identified by Name and : YES, via [employer] Outreach Outcome/Action Unable to reach patient: Left message Did you use a PCP flex slot to schedule this appointment? No Reason for Outreach Care Gap or Scheduling/Wellness visits Payer: Payor: [facility] MEDICAID / Plan: [facility] MEDICAID / Product Type: Medicaid / [...] 16, 2023 11:02 AM documented in this encounterMount [facility]. [facility]06-15-2023 Miscellaneous Notes* Telephone Encounter - Iveth [...] you. Iveth Nye LPN documented in this encounterMount St. Mary Hospital06-15-2023 History of Present illness Narrative* Fior [...] present. Adherence: denies missed doses. Pharmacy: e- [facility]/pharmacy #[id number] [place] [address] [address] [facility]. - [phone] [facility] [phone] Rx coverage: Payor: [facility] MEDICAID / Plan: [facility] MEDICAID / Product Type: Medicaid ACTIVE PROBLEM LIST Esophageal Reflux Moderate Episode of Recurrent Major Depressive Disorder (Hcc) Panic Disorder Without Agoraphobia Somatization Disorder Irritable Bowel Syndrome Other and Unspecified Hyperlipidemia Schizophrenia (Hcc) Other Mixed Anxiety Disorders Controlled Type 2 Diabetes Mellitus Without Complication, With Long-Term Current Use of Insulin ([facility]) PAST MEDICAL HISTORY Diagnosis Date Abdominal pain, unspecified site 10/15/2006 Allergic rhinitis Allergic rhinitis, cause unspecified Bipolar affective disorder, depressed ([facility]) Candidiasis Chondromalacia of patella Chronic depressive personality [...] without mention of status migrainosus Morbid obesity ([facility]) Myalgia and myositis, unspecified Obesity, unspecified Onychomycosis JAYLYN (obstructive sleep apnea) Osteoarthrosis Other acute reactions to stress Other anxiety states Panic disorder Panic disorder without agoraphobia Pedal edema PMH - PAST MEDICAL HISTORY OF joint pain Pure hypercholesterolemia Schizophrenia ([facility]) Sciatica, right side Sleep related bruxism Temporomandibular joint disorders, unspecified TMJ syndrome Unspecified menopausal and postmenopausal disorder Uterine prolapse without mention of vaginal wall prolapse Venous insufficiency of both lower extremities Vitamin D deficiency Past medical history reviewed. ALLERGIES Allergen Reactions Betadine [Povidone-* Unknown Glimepiride Intolerance Diarrhea Haldol [Haloperidol] Other: See Comments Headache/hallucinations [place] Other: See Comments Hallucinations Metformin Diarrhea Neurontin [...] Take 1 tablet by mouth twice weekly c7iaqen, then decrease to 1 tablet weekly. ferrous [...] has been controlled without it Insulin [place], Disposable, (BD ULTRAFINE III MINI PEN) 31 [...] complication, with long-term current use of insulin ([facility]) - ICD9: 250.00, V58.67, ICD10: E11.9, [...] verbalized understanding of instructions. Fior Joseph PharmD, [facility] Primary Care Clinical Pharmacist The majority of the pharmacy visit (> 50%) was spent counseling and/or coordinating care for thepatient. interaction: telephonic time was 48 minutes[address] [facility]05-30-2023 Instructions* Patient Instructions* Gavi Norwood APRN.EQUAL OPPORTUNITY ASSISTANT - 03/26/2023 7:35 PM EDT ASSESSMENT/PLAN: 1. [...] Suboptimal joint space centering frontal weightbearing imaging Residential Property Tax Appraiser: JADON Transcribe Date/Time: Mar 26 2023 7:15P [...] pillows when lying down. documented in this encounterMount St. Mary Hospital05-30-2023 History of Present illness Narrative* Gavi Norwood APRN.EQUAL OPPORTUNITY ASSISTANT - 03/26/2023 6:50 PM EDT Subjective HPI [...] vaginal ALLERGIES Betadine [Povidone-Iodine], Glimepiride, Haldol [Haloperidol], [place], Metformin, Neurontin [Gabapentin], Penicillins, Tylenol [Acetaminophen], and [...] Take 1 tablet by mouth twice weekly v1wgssd, then decrease to 1 tablet weekly. ferrous sulfate 325 mg (65 mg iron) tablet TAKE 1 TABLET BY MOUTH TWICE A DAY WITH MEALS Insulin [place], Disposable, (BD ULTRAFINE III MINI PEN) 31 [...] Suboptimal joint space centering frontal weightbearing imaging Residential Property Tax Appraiser: JADON Transcribe Date/Time: Mar 26 2023 7:15P Dictated by : LATISHA ISAAC MD - RICE therapy as directed. - Follow-up with orthopedics as directed. - Discussed red flags and need for immediate medical evaluation if any occur. - Discussed supportive care treatment with fluids, rest and analgesia. - Discussed expected course of illness Gavi Norwood APRN.MICHAEL documented in this encounterMount St. [facility]05-30-2023 History of Present illness Narrative* Carine [...] 26, 2023 6:31 PM documented in this encounterMount St. [facility]05-03-2023 Miscellaneous Notes* Telephone Encounter - Monik [...] advise, Rhona Lai RN documented in this encounterMount St. Mary Hospital04-28-2023 History of Present illness Narrative* Carine [...] 22, 2023 3:20 PM documented in this encounterMount St. [facility]04-06-2023 Miscellaneous Notes* Telephone Encounter - Jess [...] Primary Care Clinical Pharmacist documented in this encounterMount St. Mary Hospital04-05-2023 Miscellaneous Notes* Telephone Encounter - Inocencia [...] you. Inocencia Lowery RN documented in this encounterMount St. Mary Hospital03-29-2023 History of Present illness Narrative* Monik [...] She is going to counseling center at [facility] , duloxetine , zoloft and depakote. [...] mg (65 mg iron) tablet Insulin [place], Disposable, (BD ULTRAFINE III MINI PEN) 31 [...] LEFT Monik Hackett MD documented in this encounterMount St. [facility] Hospital03-08-2023 Miscellaneous Notes* Telephone Encounter - Anupama [...] you. Anupama Ceballos LPN documented in this encounterMount St. [facility] Hospital03-08-2023 Miscellaneous Notes* Telephone Encounter - Anupama [...] you. Anupama Ceballos LPN documented in this encounterMount St. Mary Hospital02-27-2023 Miscellaneous Notes* Telephone Encounter - Monik Hackett MD - 12/24/2022 10:43 PM EST Standing ordered placed Regards, Monik Hackett MD documented in this encounterMount St. Mary Hospital02-02-2023 Miscellaneous Notes* Telephone Encounter - Lala [...] you. Anupama Ceballos LPN documented in this encounterMount St. Mary Hospital01-16-2023 Miscellaneous Notes* Telephone Encounter - Anupama [...] you. Anupama Ceballos LPN documented in this encounterMount St. [facility]12-13-2022 History of Present illness Narrative* Caren [...] 09, 2022 5:08 PM documented in this encounterMount St. [facility]11-28-2022 Miscellaneous Notes* Telephone Encounter - Jolene [...] Take 1 tablet by mouth twice weekly [id number], then decrease to 1 tablet weekly. Please review and advise. Jolene Tubbs LPN documented in this encounterMount St. [facility]11-28-2022 Miscellaneous Notes* Telephone Encounter - Jolene [...] advise. Jolene Tubbs LPN [facility] Miscellaneous Notes* Telephone Encounter - Romi Pandya LPN - 09/07/2022 10:40 AM EST Spoke with pt and information listed below given. Pt verbalizes understanding. Pt transferred to patient scheduler to reschedule apt with Podiatry. Romi [...] you. Iveth Nye LPN documented [facility] Miscellaneous Notes* Telephone Encounter - Romi [...] you. Romi Pandya LPN documented [facility] Miscellaneous Notes* Telephone Encounter - Romi [...] you. Romi Pandya LPN documented [facility] History of Present illness Narrative* Ursula Vegas - 07/25/2022 4:32 PM EDT POPULATION HEALTH NAVIGATION OUTREACH Action/I RP Outreach: LVM for Patient to call back and schedule [facility] Consult for Onychomycosis [B35.1]. [phone]. Any agent can assist. Pt identified by name and : YES, via [employer] Outreach Outcome/Action Unable to reach patient: Left message Did you use a PCP flex slot to schedule this appointment? No Reason for Outreach Care Gap or Scheduling/Wellness visits Payer: Payor: [facility] MEDICAID / Plan: [facility] MEDICAID / Product Type: Medicaid / [...] 25, 2022 4:32 PM documented in [facility] Miscellaneous Notes* Telephone Encounter - Anupama [...] you. Anupama Ceballos LPN documented in [facility] Miscellaneous Notes* Telephone Encounter - Anupama [...] you. Anupama Ceballos LPN documented in [facility]08[facility] History of Present illness Narrative* Monik [...] Eating out. Lost her mother, ex sis otpher, and sister and step mom.the last was [...] acting, (LOPRESSOR) 50 mg tablet Insulin [place], Disposable, (BD ULTRAFINE III MINI PEN) 31 [...] Monik Hackett MD ` documented in this [facility]08-03-2022 Instructions* Patient Instructions* Trixie Gibson APRN.EQUAL OPPORTUNITY ASSISTANT - 05/30/2022 5:01 PM EDT Use the terbinafine medication once daily for 12 weeks. Recheck your liver function labs at that point. documented in [facility]08-[facility]2022 History of Present illness Narrative* Trixie [...] Diarrhea Haldol [Haloperidol] Other: See Comments Headache/hallucinations [place] Other: See Comments Hallucinations Metformin Diarrhea Neurontin [...] tablet by mouth twice daily. Insulin [place], Disposable, (BD ULTRAFINE III MINI PEN) 31 [...] Take 1 tablet by mouth twice weekly [id number], then decrease to 1 tablet weekly. divalproex [...] PNL Trixie Gibson APRN.CNP documented in this encounterMount [facility]07-22-2022 Miscellaneous Notes* Telephone Encounter - Lala [...] 02/09/22 Sherly Storey Ma documented in this encounterMount [facility]07-18-2022 Miscellaneous Notes* Telephone Encounter - Nidia [...] you. Nidia Silverio LPN documented in this encounterMount [facility]05-18-2022 Miscellaneous Notes* Telephone Encounter - Trixie Gibson APRN.CNP - 03/14/2022 2:45 PM EDT See other MyChart encounter from today 03/14/2022. Trixie Gibson APRN.CNP documented in this encounterMount [facility]05-18-2022 Miscellaneous Notes* Telephone Encounter - Esther Baer Ma - 03/14/2022 8:13 AM EDT Please see patient message Esther Baer Ma documented in this [facility]Mount [facility]04-15-2022 Miscellaneous Notes* Telephone Encounter - Trixie [...] you. Kenia Dangelo LPN documented in this [facility]Mount [facility]12-19-2006 History of Past illness Narrative* Problem Noted Date Resolved Date Abdominal pain, unspecified site 10/15/2006 12/07/2020 documented as of this encounter (statuses as of 02/09/2022) [address]19-2006 History of Past illness Narrative* Problem Noted Date Resolved Date Abdominal pain, unspecified site 10/15/2006 12/07/2020 documented as of this encounter (statuses as of 03/14/2022) [place] [id number] History of Past illness Narrative* Problem Noted Date Resolved Date Abdominal pain, unspecified site 10/15/2006 12/07/2020 documented as of this encounter (statuses as of 05/05/2022) [address] History of Past illness Narrative* Problem Noted Date Resolved Date Abdominal pain, unspecified site 10/15/2006 12/07/2020 documented as of this encounter (statuses as of 05/17/2022) [address] History of Past illness Narrative* Problem Noted Date Resolved Date Abdominal pain, unspecified site 10/15/2006 12/07/2020 documented as of this encounter (statuses as of 05/19/2022) [address] History of Past illness Narrative* Problem Noted Date Resolved Date Abdominal pain, unspecified site 10/15/2006 12/07/2020 documented as of this encounter (statuses as of 05/28/2022) [address] History of Past illness Narrative* Problem Noted Date Resolved Date Abdominal pain, unspecified site 10/15/2006 12/07/2020 documented as of this encounter (statuses as of 05/31/2022) [address] History of Past illness Narrative* Problem Noted Date Resolved Date Abdominal pain, unspecified site 10/15/2006 12/07/2020 documented as of this encounter (statuses as of 06/28/2022) [address] History of Past illness Narrative* Problem Noted Date Resolved Date Abdominal pain, unspecified site 10/15/2006 12/07/2020 documented as of this encounter (statuses as of 07/05/2022) [address] History of Past illness Narrative* Problem Noted Date Resolved Date Abdominal pain, unspecified site 10/15/2006 12/07/2020 documented as of this encounter (statuses as of 07/18/2022) [address] History of Past illness Narrative* Problem Noted Date Resolved Date Abdominal pain, unspecified site 10/15/2006 12/07/2020 documented as of this encounter (statuses as of 07/25/2022) [address] History of Past illness Narrative* Problem Noted Date Resolved Date Abdominal pain, unspecified site 10/15/2006 12/07/2020 documented as of this encounter (statuses as of 08/22/2022) [address] History of Past illness Narrative* Problem Noted Date Resolved Date Abdominal pain, unspecified site 10/15/2006 12/07/2020 documented as of this encounter (statuses as of 09/07/2022) [address] History of Past illness Narrative* Problem Noted Date Resolved Date Abdominal pain, unspecified site 10/15/2006 12/07/2020 documented as of this encounter (statuses as of 09/26/2022) [address] History of Past illness Narrative* Problem Noted Date Resolved Date Abdominal pain, unspecified site 10/15/2006 12/07/2020 documented as of this encounter (statuses as of 09/26/2022) [address] History of Past illness Narrative* Problem Noted Date Resolved Date Abdominal pain, unspecified site 10/15/2006 12/07/2020 documented as of this encounter (statuses as of 11/13/2022) [address] History of Past illness Narrative* Problem Noted Date Resolved Date Abdominal pain, unspecified site 10/15/2006 12/07/2020 documented as of this encounter (statuses as of 11/29/2022) [address] History of Past illness Narrative* Problem Noted Date Resolved Date Abdominal pain, unspecified site 10/15/2006 12/07/2020 documented as of this encounter (statuses as of 12/25/2022) [address] History of Past illness Narrative* Problem Noted Date Resolved Date Abdominal pain, unspecified site 10/15/2006 12/07/2020 documented as of this encounter (statuses as of 01/02/2023) [address] History of Past illness Narrative* Problem Noted Date Resolved Date Abdominal pain, unspecified site 10/15/2006 12/07/2020 documented as of this encounter (statuses as of 01/04/2023) [address] History of Past illness Narrative* Problem Noted Date Resolved Date Abdominal pain, unspecified site 10/15/2006 12/07/2020 documented as of this encounter (statuses as of 01/24/2023) [address] History of Past illness Narrative* Problem Noted Date Resolved Date Abdominal pain, unspecified site 10/15/2006 12/07/2020 documented as of this encounter (statuses as of 01/31/2023) [address] History of Past illness Narrative* Problem Noted Date Resolved Date Abdominal pain, unspecified site 10/15/2006 12/07/2020 documented as of this encounter (statuses as of 02/01/2023) [address] History of Past illness Narrative* Problem Noted Date Resolved Date Abdominal pain, unspecified site 10/15/2006 12/07/2020 documented as of this encounter (statuses as of 02/28/2023) [address] History of Past illness Narrative* Problem Noted Date Resolved Date Abdominal pain, unspecified site 10/15/2006 12/07/2020 documented as of this encounter (statuses as of 03/27/2023) [address] History of Past illness Narrative* Problem Noted Date Resolved Date Abdominal pain, unspecified site 10/15/2006 12/07/2020 documented as of this encounter (statuses as of 04/12/2023) [address] History of Past illness Narrative* Problem Noted Date Resolved Date Abdominal pain, unspecified site 10/15/2006 12/07/2020 documented as of this encounter (statuses as of 04/12/2023) [address] History of Past illness Narrative* Problem Noted Date Resolved Date Abdominal pain, unspecified site 10/15/2006 12/07/2020 documented as of this encounter (statuses as of 04/16/2023) [address] History of Past illness Narrative* Problem Noted Date Resolved Date Abdominal pain, unspecified site 10/15/2006 12/07/2020 documented as of this encounter (statuses as of 04/19/2023) [address] History of Past illness Narrative* Problem Noted Date Resolved Date Abdominal pain, unspecified site 10/15/2006 12/07/2020 documented as of this encounter (statuses as of 04/23/2023) [address] History of Past illness Narrative* Problem Noted Date Diagnosed Date Resolved Date Abdominal pain, unspecified site 10/15/2006 12/07/2020 documented as of this encounter (statuses as of 05/04/2023) [address] History of Past illness Narrative* Problem Noted Date Diagnosed Date Resolved Date Abdominal pain, unspecified site 10/15/2006 12/07/2020 documented as of this encounter (statuses as of 05/06/2023) [address] History of Past illness Narrative* Problem Noted Date Diagnosed Date Resolved Date Abdominal pain, unspecified site 10/15/2006 12/07/2020 documented as of this encounter (statuses as of 05/24/2023) [address] History of Past illness Narrative* Problem Noted Date Diagnosed Date Resolved Date Abdominal pain, unspecified site 10/15/2006 12/07/2020 documented as of this encounter (statuses as of 05/28/2023) [address] History of Past illness Narrative* Problem Noted Date Diagnosed Date Resolved Date Abdominal pain, unspecified site 10/15/2006 12/07/2020 documented as of this encounter (statuses as of 05/31/2023) [address] History of Past illness Narrative* Problem Noted Date Diagnosed Date Resolved Date Abdominal pain, unspecified site 10/15/2006 12/07/2020 documented as of this encounter (statuses as of 06/12/2023) [address] History of Past illness Narrative* Problem Noted Date Diagnosed Date Resolved Date Abdominal pain, unspecified site 10/15/2006 12/07/2020 documented as of this encounter (statuses as of 07/13/2023) [address] History of Past illness Narrative* Problem Noted Date Diagnosed Date Resolved Date Abdominal pain, unspecified site 10/15/2006 12/07/2020 documented as of this encounter (statuses as of 07/16/2023) [address] History of Past illness Narrative* Problem Noted Date Diagnosed Date Resolved Date Abdominal pain, unspecified site 10/15/2006 12/07/2020 documented as of this encounter (statuses as of 08/09/2023) [address] History of Past illness Narrative* Problem Noted Date Diagnosed Date Resolved Date Abdominal pain, unspecified site 10/15/2006 12/07/2020 documented as of this encounter (statuses as of 08/13/2023) [address] History of Past illness Narrative* Problem Noted Date Diagnosed Date Resolved Date Abdominal pain, unspecified site 10/15/2006 12/07/2020 documented as of this encounter (statuses as of 08/22/2023) [address] History of Past illness Narrative* Problem Noted Date Diagnosed Date Resolved Date Abdominal pain, unspecified site 10/15/2006 12/07/2020 documented as of this encounter (statuses as of 08/31/2023) [address] History of Past illness Narrative* Problem Noted Date Diagnosed Date Resolved Date Abdominal pain, unspecified site 10/15/2006 12/07/2020 documented as of this encounter (statuses as of 09/03/2023) [address] History of Past illness Narrative* Problem Noted Date Diagnosed Date Resolved Date Abdominal pain, unspecified site 10/15/2006 12/07/2020 documented as of this encounter (statuses as of 10/01/2023) [address] History of Past illness Narrative* Problem Noted Date Diagnosed Date Resolved Date Abdominal pain, unspecified site 10/15/2006 12/07/2020 documented as of this encounter (statuses as of 10/01/2023) [address] History of Past illness Narrative* Problem Noted Date Diagnosed Date Resolved Date Abdominal pain, unspecified site 10/15/2006 12/07/2020 documented as of this encounter (statuses as of 10/01/2023) [address] History of Past illness Narrative* Problem Noted Date Diagnosed Date Resolved Date Abdominal pain, unspecified site 10/15/2006 12/07/2020 documented as of this encounter (statuses as of 10/03/2023) [address] History of Past illness Narrative* Problem Noted Date Diagnosed Date Resolved Date Abdominal pain, unspecified site 10/15/2006 12/07/2020 documented as of this encounter (statuses as of 10/04/2023) [address] History of Past illness Narrative* Problem Noted Date Diagnosed Date Resolved Date Abdominal pain, unspecified site 10/15/2006 12/07/2020 documented as of this encounter (statuses as of 10/04/2023) [address] History of Past illness Narrative* Problem Noted Date Diagnosed Date Resolved Date Abdominal pain, unspecified site 10/15/2006 12/07/2020 documented as of this encounter (statuses as of 10/04/2023) [address] History of Past illness Narrative* Problem Noted Date Diagnosed Date Resolved Date Abdominal pain, unspecified site 10/15/2006 12/07/2020 documented as of this encounter (statuses as of 12/03/2023) [address] History of Past illness Narrative* Problem Noted Date Diagnosed Date Resolved Date Abdominal pain, unspecified site 10/15/2006 12/07/2020 documented as of this encounter (statuses as of 12/06/2023) [address] History of Past illness Narrative* Problem Noted Date Diagnosed Date Resolved Date Abdominal pain, unspecified site 10/15/2006 12/07/2020 documented as of this encounter (statuses as of 12/06/2023) [address] History of Past illness Narrative* Problem Noted Date Diagnosed Date Resolved Date Abdominal pain, unspecified site 10/15/2006 12/07/2020 documented as of this encounter (statuses as of 12/09/2023) [address] History of Past illness Narrative* Problem Noted Date Diagnosed Date Resolved Date Abdominal pain, unspecified site 10/15/2006 12/07/2020 documented as of this encounter (statuses as of 12/09/2023) [address] History of Past illness Narrative* Problem Noted Date Diagnosed Date Resolved Date Abdominal pain, unspecified site 10/15/2006 12/07/2020 documented as of this encounter (statuses as of 12/11/2023) [address] History of Past illness Narrative* Problem Noted Date Diagnosed Date Resolved Date Abdominal pain, unspecified site 10/15/2006 12/07/2020 documented as of this encounter (statuses as of 12/11/2023) [address] History of Past illness Narrative* Problem Noted Date Diagnosed Date Resolved Date Abdominal pain, unspecified site 10/15/2006 12/07/2020 documented as of this encounter (statuses as of 12/12/2023) [address] History of Past illness Narrative* Problem Noted Date Diagnosed Date Resolved Date Abdominal pain, unspecified site 10/15/2006 12/07/2020 documented as of this encounter (statuses as of 12/12/2023) [place] [id number] History of Past illness Narrative* Problem Noted Date Diagnosed Date Resolved Date Abdominal pain, unspecified site 10/15/2006 12/07/2020 documented as of this encounter (statuses as of 01/07/2024) [address] History of Past illness Narrative* Problem Noted Date Diagnosed Date Resolved Date Abdominal pain, unspecified site 10/15/2006 12/07/2020 documented as of this encounter (statuses as of 01/08/2024) [place] [id number] History of Past illness Narrative* Problem Noted Date Diagnosed Date Resolved Date Abdominal pain, unspecified site 10/15/2006 12/07/2020 documented as of this encounter (statuses as of 01/27/2024) [place] [id number] History of Past illness Narrative* Problem Noted Date Diagnosed Date Resolved Date Abdominal pain, unspecified site 10/15/2006 12/07/2020 documented as of this encounter (statuses as of 02/07/2024) [address] History of Past illness Narrative* Problem Noted Date Diagnosed Date Resolved Date Abdominal pain, unspecified site 10/15/2006 12/07/2020 documented as of this encounter (statuses as of 02/14/2024) [facility] Plan note No data available for this section [facility] Evaluation note* Diagnosis Fibromyalgia Mylagia and myositis, unspecified [facility]* Diagnosis Need for vaccination Need for prophylactic vaccination and inoculation against unspecified single disease documented in this encounter [facility]* Diagnosis Need for vaccination Need for prophylactic vaccination and inoculation against unspecified single disease [facility] this [facility] Diagnosis Fibromyalgia Mylagia and myositis, unspecified [facility] this [facility]* Diagnosis Encounter for screening mammogram for breast cancer documented in this encounter [facility]* Diagnosis Onychomycosis- Primary Dermatophytosis of nail documented [facility] this [facility]* Diagnosis Pitted nails- Primary Other specified [...] and myositis, unspecified [facility] Diagnosis Controlled type 2 diabetes mellitus without complication, with long-term current use of insulin (HCC)- Primary Vitamin B12 deficiency Other B-complex deficiencies Vitamin D deficiency Unspecified vitamin D deficiency [facility] Diagnosis Controlled type 2 diabetes mellitus without complication, with long-term current use of insulin (HCC) Essential hypertension, benign [facility] Diagnosis Controlled type 2 diabetes mellitus without complication, with long-term current use of insulin ([facility]) [facility] [...] disc, site unspecified [facility]* Diagnosis Knee joint injury, initial encounter- Primary [facility] Diagnosis Controlled type 2 diabetes mellitus without complication, with long-term current use of insulin (HCC)- Primary Medication management Encounter for long-term (current) use of other medications documented [facility] this encounter [facility] Diagnosis Controlled type 2 diabetes mellitus without complication, with long-term current use of insulin (HCC) [facility] Diagnosis Controlled type 2 diabetes mellitus without complication, with long-term current use of insulin (HCC) documented [facility] this [facility]* Diagnosis Encounter for screening mammogram for breast cancer documented [facility] this encounter [facility]* Diagnosis Benign paroxysmal po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- Primary Benign paroxysmal vertigo of both ears Benign paroxysmal positional vertigo [facility] this [facility]* Diagnosis Controlled type 2 diabetes mellitus without complication, with long-term current use of insulin (HCC)- Primary [facility]* Diagnosis Fibromyalgia Mylagia and myositis, unspecified documented in this encounter [facility]* Diagnosis Generalized pain- Primary Burning sensation Disturbance of skin sensation Weakness Other malaise and fatigue Brain fog Controlled type 2 diabetes mellitus without complication, with long-term current use of insulin (HCC) Fibromyalgia Mylagia and myositis, unspecified documented in this encounter [facility]* Diagnosis NANCY positive- Primary Other and [...] nonspecific skin eruption [facility] this encounter [facility]* Diagnosis Fibromyalgia Mylagia and myositis, unspecified documented in this [facility]* Diagnosis Need for vaccination Need for prophylactic vaccination and inoculation against unspecified single disease [facility] this encounter [facility]* Diagnosis Hammertoe of left foot [facility] this [facility] Diagnosis Controlled type 2 diabetes mellitus without complication, with long-term current use of insulin (HCC) documented in this encounter [facility]* Diagnosis Essential hypertension, benign Mixed hyperlipidemia documented in this encounter [facility]* Diagnosis Essential hypertension, benign documented in this encounter [facility]* Diagnosis Essential hypertension, benign- Primary documented in this [facility]* Diagnosis Fibromyalgia Mylagia and myositis, unspecified documented in this encounter [facility]* Diagnosis Generalized pain Burning sensation Disturbance of skin sensation Fibromyalgia Mylagia and myositis, unspecified documented in this encounter [facility]* Diagnosis Hypoxia- Primary Hypoxemia documented in this [facility]* Diagnosis Shortness of breath [facility] in this [facility]* Diagnosis Shortness of breath [facility] in this [facility]* Diagnosis Hypoxia Hypoxemia Shortness of breath [facility] in this [facility]* Diagnosis Hypoxia- Primary Hypoxemia Shortness of breath documented [facility] this [facility]* Diagnosis Need for vaccination Need for prophylactic vaccination and inoculation against unspecified single disease documented in this encounter [facility]* Diagnosis Controlled type 2 diabetes mellitus without complication, with long-term current use of insulin (HCC) documented in this encounter [facility]* Diagnosis Mixed hyperlipidemia Generalized pain Burning sensation Disturbance of skin sensation Fibromyalgia Mylagia and myositis, unspecified [facility] Diagnosis Hypoxia- Primary Hypoxemia On home oxygen therapy Dependence on supplemental oxygen Abnormal lung function test Nonspecific abnormal results of pulmonary system function study [facility] Diagnosis Essential hypertension, benign [facility] Diagnosis History of iron deficiency Personal history of diseases of blood and blood-forming organs documented [facility] this [facility] Diagnosis History of iron deficiency Personal history of diseases of blood and blood-forming organs documented [facility] this [facility] Diagnosis Need for vaccination Need for prophylactic vaccination and inoculation against unspecified single disease [facility] this [facility] Diagnosis Need for vaccination Need for prophylactic vaccination and inoculation against unspecified single disease [facility] Diagnosis Hypoxemia- Primary documented [facility] this [facility]* Diagnosis Chest pain, unspecified type- Primary [...] single bacterial disease documented [facility] this [facility] Diagnosis Essential hypertension, benign documented [facility] this [facility] Diagnosis Encounter for screening mammogram for breast cancer documented [facility] this [facility] Diagnosis Essential hypertension, benign documented [facility] this [facility] Diagnosis Essential hypertension, benign documented [facility] this [facility] Diagnosis Generalized pain Burning sensation Disturbance of skin sensation Fibromyalgia Mylagia and myositis, unspecified documented [facility] this [facility] Diagnosis Mild persistent asthma without complication- Primary Unspecified asthma [facility] this [facility] Diagnosis Mild persistent asthma without complication- Primary Unspecified asthma SOB (shortness of breath) Shortness of breath Hypoxemia Morbid obesity (HCC) Morbid obesity [facility] this [facility] Diagnosis Controlled type 2 diabetes mellitus without complication, with long-term current use of insulin (HCC)- Primary Chest pain, unspecified type SOBOE (shortness of breath on exertion) Shortness of breath [facility] this [facility]* Diagnosis Vitamin D deficiency- Primary Unspecified vitamin D deficiency documented [facility] this [facility]* Diagnosis Generalized pain Burning sensation Disturbance of skin sensation Fibromyalgia Mylagia and myositis, unspecified Controlled type 2 diabetes mellitus without complication, with long-term current use of insulin ([facility]) documented in this encounter [facility] Diagnosis Pain of right thumb Pain in limb documented [facility] this [facility] Diagnosis Acute cough Shortness of breath documented [facility] this [facility] Diagnosis Knee joint injury, initial encounter [facility] Diagnosis Chronic bilateral low back pain with bilateral sciatica documented in this encounter [facility]* Diagnosis Need for vaccination Need for prophylactic vaccination and inoculation against unspecified single disease documented in this encounter [facility] note* Diagnosis Controlled type 2 diabetes mellitus without complication, with long-term current use of insulin (HCC) Medication management Encounter for long-term (current) use of other medications documented in this encounter [facility] note* Diagnosis Fatigue, unspecified type- Primary Generalized pain Burning sensation Disturbance of skin sensation Fibromyalgia Mylagia and myositis, unspecified Controlled type 2 diabetes mellitus without complication, with long-term current use of insulin (HCC) [facility] Diagnosis Panic disorder without agoraphobia- Primary Moderate episode of recurrent major depressive disorder (HCC) Insomnia, unspecified type Controlled type 2 diabetes mellitus without complication, with long-term current use of insulin (HCC) Burning sensation Disturbance of skin sensation Fibromyalgia Mylagia and myositis, unspecified Other fatigue Generalized pain documented in this encounter [facility] note* Diagnosis Essential hypertension, benign documented in this encounter [facility] note* Diagnosis Schizophrenia, unspecified type (HCC) documented in this encounter [facility] note* Diagnosis Mixed hyperlipidemia documented [facility] this [facility]* Diagnosis Schizophrenia, unspecified type (HCC) Need for vaccination Need for prophylactic vaccination and inoculation against unspecified single disease Essential hypertension, benign Insomnia, unspecified type documented in this encounter [facility] note* Diagnosis Controlled type 2 diabetes mellitus without complication, with long-term current use of insulin (HCC) History of iron deficiency Personal history of diseases of blood and blood-forming organs [facility]* Diagnosis Hypoxemia- Primary [facility] this [facility] Diagnosis Generalized pain Burning sensation Disturbance of skin sensation Fibromyalgia Mylagia and myositis, unspecified Moderate episode of recurrent major depressive disorder (HCC) [facility]* Diagnosis History of iron deficiency Personal [...] vitamin D deficiency documented in this encounter [facility] note* Diagnosis Encounter for screening mammogram [...] of other medications documented in this encounter [facility] note* Diagnosis Generalized pain Burning sensation Disturbance of skin sensation Fibromyalgia Mylagia and myositis, unspecified Moderate episode of recurrent major depressive disorder (HCC) documented in this encounter [facility] note* Diagnosis Essential hypertension, benign documented in this encounter [facility] for referral (narrative)* Diagnostic Procedure Only (Routine) - Pending Review Specialty Diagnoses / Procedures Referred By Fiorella stanley Referred To Contact [facility] Diagnoses Encounter for screening mammogram for breast cancer Procedures ALTHEA SCREENING SCREENING MAMMOGRAPHY BI 2-VIEW BREAST INC CAD Monik Hackett MD [address] [place] [address] [facility] [address] [place] [phone] Referral ID Status Reason Start Date Expiration Date Visits Requested Visits Authorized [id number] Pending Review Auto-Generat ed Referral 05/23/2022 06/22/2023 1 1 [facility] for referral (narrative)* Outpatient Procedure (Routine) - Authorized Specialty Diagnoses / Procedures Referred By Fiorella stanley [facility] Diagnoses Mixed hyperlipidemia Procedures PVR LEG W/EXC RYLEY VAS LAB N-INVAS PHYSIOLOGIC STD LXTR ART COMPL BI Monik Hackett MD [address] [place] [address] [facility] [place] [address] [place] [id number] Referral ID Status Reason Start Date Expiration Date Visits Requested Visits Authorized [id number] Authorized Auto-Generat ed Referral 06/27/2022 06/27/2023 1 1 * Transition of Care (Routine) - Ref Not Required Specialty Diagnoses / Procedures Referred By Fiorella t Referred To Contact Dermatology Diagnoses Pitted nails Procedures CONSULT TO DERMATOLOGY Monik Hackett MD [address] [place] [address] Referral ID Status Reason Start Date Expiration Date Visits Requested Visits Authorized [id number] Ref Not Required PCP Requested Referral 06/27/2022 06/27/2023 1 1 [facility] for referral (narrative)* Diagnostic Procedure Only (Routine) - Pending Review Specialty Diagnoses / Procedures Referred By Fiorella stanley Referred To Contact [facility] Diagnoses Subcutaneous nodules Procedures US EXTREMITY MASS/FLUID COLLECTION LEFT Monik Hackett MD [facility] [place] [address] [facility] Referral ID Status Reason Start Date Expiration Date Visits Requested Visits Authorized [id number] Pending Review Auto-Generat ed Referral 01/23/2023 02/22/2024 1 1 [facility] for referral (narrative)* Diagnostic Procedure Only (Routine) - Pending Review Specialty Diagnoses / Procedures Referred By Fiorella stanley Referred To Contact [facility] Diagnoses Encounter for screening mammogram for breast cancer Procedures ALTHEA SCREENING SCREENING MAMMOGRAPHY BI 2-[place] [address] [place] [address] [facility] [address] [facility] [place] [address] Referral ID Status Reason Start Date Expiration Date Visits Requested Visits Authorized [id number] Pending Review Auto-Generat ed Referral 05/01/2023 05/30/2024 1 1 [facility] for referral (narrative)* Diagnostic Procedure Only (Routine) - Closed Specialty Diagnoses / Procedures Referred By Fiorella stanley Referred To Contact XR IMAGING Diagnoses Hammertoe of left foot Procedures XR FOOT GENERAL 3V AP/LAT/OBL LEFT RADEX FOOT COMPLETE MINIMUM 3 VIEWS Testrake, Narendra [address] [place] [address] [facility] [address] Referral ID Status Reason Start Date Expiration Date V isits Requested Visits Authorized [id number] Closed Auto-Generate d Referral 10/09/2022 11/08/2023 1 1 [facility] for referral (narrative)* Outpatient Procedure (Routine) - Pending Review Specialty Diagnoses / Procedures Referred By Contac t Referred To Contact [facility] [place] Diagnoses Hypoxemia Procedures ECHO ECHO TTHRC R-T 2D W/WOM-MODE COMPL SPEC&COLR D Camila Johns MD [address] [place] [address] [facility] [place] [address] [facility] [place] [address] Referral ID Status Reason Start Date Expiration Date Visits Requested Visits Authorized [id number] Pending Review Auto-Generat ed Referral 02/27/2024 02/26/2025 1 1 [facility] for referral (narrative)* Outpatient Procedure (Routine) - Pending Review Specialty Diagnoses / Procedures Referred By Contac t Referred To Contact [facility] [place] Diagnoses Chest pain, unspecified type SOBOE (shortness of breath on exertion) Procedures STRESS ECHO DOBUTAMINE ECHO TTHRC R-T 2D W/WO M-MODE COMPLETE REST&ST Jaime Spencer APRN.CNS [address] [place] [address] [facility] [place] [address] [place] [address] Referral ID Status Reason Start Date Expiration Date Visits Requested Visits Authorized [id number] Pending Review Auto-Generat ed Referral 02/27/2024 02/26/2025 1 1 * Medication Prior Authorization - Closed Specialty Diagnoses / Procedures Referred By Contac t Referred To Contact Jaime Spencer APRN.CNS [address] [place] [address] Referral ID Status Reason Start Date Expiration Date Visits Re quested Visits Authorized [id number] Closed 1 1 * Outpatient Procedure (Routine) - Pending Review Specialty Diagnoses / Procedures Referred By Contac t Referred [facility] Diagnoses Chest pain, unspecified type Procedures ECG COMPLETE ECG ROUTINE ECG W/LEAST 12 LDS W/I&R Jaime Spencer APRN.CNS [address] [place] [address] [facility] [place] [address] [place] [address] Referral ID Status Reason Start Date Expiration Date Visits Requested Visits Authorized [id number] Pending Review Auto-Generat ed Referral 02/27/2024 02/26/2025 1 1 * Consult, Test, Treat (Routine) - Authorized Specialty Diagnoses / Procedures Referred By Fiorella stanley Referred To Contact Ophthalmology Diagnoses Screening for diabetic retinopathy Controlled type 2 diabetes mellitus without complication, with long-term current use of insulin (HCC) Procedures CONSULT TO OPHTHALMOLOGY OFFICE/OUTPATIENT [facility] MDM 60 MINUTES Jaime Spencer APRN.CNS [address] [place] [address] Referral ID Status Reason Start Date Expiration Date Visits Requested Visits Authorized [id number] Authorized PCP Requested Referral 02/27/2024 02/26/2025 1 1 [facility] for referral (narrative)* Diagnostic Procedure Only (Routine) - Pending Review Specialty Diagnoses / Procedures Referred By Fiorella t Referred To Contact [facility] Diagnoses Encounter for screening mammogram for breast cancer Procedures ALTHEA SCREENING W CORIN SCREENING DIGITAL BREAST TOMOSYNTHESIS BI SCREENING MAMMOGRAPHY BI 2-VIEW BREAST INC Monik Hastings MD [address] [place] [address] [facility] [address] [place] [address] Referral ID Status Reason Start Date Expiration Date Visits Requested Visits Authorized [id number] Pending Review Auto-Generat ed Referral 04/08/2024 05/08/2025 1 1 [facility] for referral (narrative)* Diagnostic Procedure Only (Urgent) - Closed Specialty Diagnoses / Procedures Referred By Contac t Referred To Contact XR IMAGING Diagnoses Pain of right thumb Procedures XR DIGIT GENERAL 3V FRONTAL/LAT/OBL RIGHT RADEX FINGR MINIMUM 2 VIEWS Gavi Norwood APRN.EQUAL OPPORTUNITY ASSISTANT [address] [place] [address] [place] [address] Referral ID Status Reason Start Date Expiration Date V isits Requested Visits Authorized [id number] Closed Auto-Generate d Referral 11/25/2023 12/24/2024 1 1 [facility] for referral (narrative)* Diagnostic Procedure Only (Urgent) - Closed Specialty Diagnoses / Procedures Referred By Contac t Referred To Contact XR IMAGING Diagnoses Knee joint injury, initial encounter Procedures XR KNEE GENERAL 4V AP BOTH/PA BOTH/LAT/MERC BILATERAL RADIOLOGIC EXAM KNEE COMPLETE 4/MORE VIEWS Gvai Norwood APRN.EQUAL OPPORTUNITY ASSISTANT [address] [place] [address] [place] [address] Referral ID Status Reason Start Date Expiration Date V isits Requested Visits Authorized [id number] Closed Auto-Generate d Referral 03/26/2023 04/24/2024 1 1 [facility] for referral (narrative)* Diagnostic Procedure Only (Routine) - Closed Specialty Diagnoses / Procedures Referred By Contac t Referred To Contact XR IMAGING Diagnoses Chronic bilateral low back pain with bilateral sciatica Procedures XR LUMBAR GENERAL 3V AP/LAT/L5-S1 RADEX SPINE LUMBOSACRAL 2/3 VIEWS Monik Hackett MD [address] [place] [address] [place] [address] Referral ID Status Reason Start Date Expiration Date V isits Requested Visits Authorized [id number] Closed Auto-Generate d Referral 02/22/2023 03/23/2024 1 1 [facility] for referral (narrative)* Medication Prior Authorization - Closed Specialty Diagnoses / Procedures Referred By Contac t Referred To Contact Lala Harrison APRN.EQUAL OPPORTUNITY ASSISTANT [address] [place] [address] Phone: tel: fax: Referral ID Status Reason Start Date Expiration Date Visits Re quested Visits Authorized [id number] Closed 1 1 [facility] for visit Narrative* Diagnostic Procedure Only (Routine) - Closed Specialty Diagnoses / Procedures Referred By Contac t Referred To Contact XR IMAGING Diagnoses Hammertoe of left foot Procedures XR FOOT GENERAL 3V AP/LAT/OBL LEFT RADEX FOOT COMPLETE MINIMUM 3 VIEWS Narendra Turner [address] [place] [address] [place] [address] Referral ID Status Reason Start Date Expiration Date V isits Requested Visits Authorized [id number] Closed Auto-Generate d Referral 10/09/2022 11/08/2023 1 1 [facility] for visit Narrative* Diagnostic Procedure Only (Urgent) - Closed Specialty Diagnoses / Procedures Referred By Contac t Referred To Contact XR IMAGING Diagnoses Pain of right thumb Procedures XR DIGIT GENERAL 3V FRONTAL/LAT/OBL RIGHT RADEX FINGR MINIMUM 2 VIEWS Gavi Norwood APRN.EQUAL OPPORTUNITY ASSISTANT [address] [place] [address] [place] [address] Referral ID Status Reason Start Date Expiration Date V isits Requested Visits Authorized [id number] Closed Auto-Generate d Referral 11/25/2023 12/24/2024 1 1 [facility] for visit Narrative* Diagnostic Procedure Only (Urgent) - Closed Specialty Diagnoses / Procedures Referred By Contac t Referred To Contact XR IMAGING Diagnoses Knee joint injury, initial encounter Procedures XR KNEE GENERAL 4V AP BOTH/PA BOTH/LAT/MERC BILATERAL RADIOLOGIC EXAM KNEE COMPLETE 4/MORE VIEWS Gavi Norwood APRN.MICHAEL [address] [place] [address] [place] [address] Referral ID Status Reason Start Date Expiration Date V isits Requested Visits Authorized [id number] Closed Auto-Generate d Referral 03/26/2023 04/24/2024 1 1 [facility] for visit Narrative* Diagnostic Procedure Only (Routine) - Closed Specialty Diagnoses / Procedures Referred By Contac t Referred To Contact XR IMAGING Diagnoses Chronic bilateral low back pain with bilateral sciatica Procedures XR LUMBAR GENERAL 3V AP/LAT/L5-S1 RADEX SPINE LUMBOSACRAL 2/3 VIEWS Monik Hackett MD [address] [place] [address] [place] [address] Referral ID Status Reason Start Date Expiration Date V isits Requested Visits Authorized [id number] Closed Auto-Generate d Referral 02/22/2023 03/23/[address] [facility] Summary Purpose Family History No Family [...] HIGH MDM 60-74 MINUTES Monik Hackett MD [address] [place] [address] Referral ID Status Reason Start Date Expiration Date Visits Requested Visits Authorized [id number] Authorized PCP Requested Referral 02/27/2023 02/27/2024 1 1 Specialty Diagnoses / Procedures Referred By Contac t Referred To Contact Orthopedics Diagnoses Knee joint injury, initial encounter Procedures CONSULT PANEL TO ORTHOPAEDICS OFFICE/OUTPATIENT [facility] MDM 60-74 MINUTES Gavi Norwood APRN.EQUAL OPPORTUNITY ASSISTANT [address] [place] [address] Referral ID Status Reason Start Date Expiration Date Visits Requested Visits Authorized [id number] Authorized PCP Requested Referral 03/26/2023 03/25/2024 1 1 Specialty Diagnoses / Procedures Referred By Contac t Referred To Contact XR IMAGING Diagnoses Knee joint injury, initial encounter Procedures XR KNEE GENERAL 4V AP BOTH/PA BOTH/LAT/MERC BILATERAL RADIOLOGIC EXAM KNEE COMPLETE 4/MORE VIEWS Gavi Norwood APRN.EQUAL OPPORTUNITY ASSISTANT [address] [place] [address] X[facility] Referral ID Status Reason Start Date Expiration Date V isits Requested Visits Authorized [id number] Closed Auto-Generate d Referral 03/26/2023 04/24/2024 1 1 Specialty Diagnoses / Procedures Referred By Contac t Referred To Contact Diagnoses Controlled type 2 diabetes mellitus without complication, with long-term current use of insulin ([facility]) Monik Hackett MD [address] [place] [address] Referral ID Status Reason Start Date Expiration Date Visits Re quested Visits Authorized [id number] Closed 1 1 Specialty Diagnoses / Procedures Referred By Contac t Referred To Contact Monik Hackett MD [address] [place] [address] Referral ID Status Reason Start Date Expiration Date Visits Re quested Visits Authorized [id number] Closed 1 1 Specialty Diagnoses / Procedures Referred By Contac t Referred To Contact [facility] Diagnoses Benign paroxysmal vertigo of both ears Benign paroxysmal po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 Procedures PT REHAB FOLLOW UP ORDER THERAPEUTIC EXERCISES RE, EA 15 MIN. Pt [facility] [address] [place] [id number] [facility] [place] [address] [place] [address] Referral ID Status Reason Start Date Expiration Date Visits Requested Visits Authorized [id number] Pending Review PCP Requested Referral Auto-Generate d Referral 05/23/2023 08/21/2023 1 1 Referral ID Status Reason Start Date Expiration Date Visits Re quested Visits Authorized [id number] Closed 1 1 Specialty Diagnoses / Procedures Referred By Contac t Referred To Contact Rheumatology Diagnoses NANCY positive Procedures CONSULT TO RHEUM/IMMUN DISEASE OFFICE/OUTPATIENT [facility] 60-74 MINUTES Jaime Spencer, [employer] M[employer]ER.SUPERINTENDENT PRESSURE [address] [place] [address] Referral ID Status Reason Start Date Expiration Date Visits Requested Visits Authorized [id number] Authorized PCP Requested Referral 3 08/08/2024 1 [...] ASSMT&IVNTJ INDIV EACH [address] Lala Harrison, LACQUER MIXER.EQUAL OPPORTUNITY ASSISTANT [address] [place] [address] Referral ID Status Reason Start Date Expiration Date Visits Requested Visits Authorized [id number] Authorized PCP Requested Referral 05/06/2024 05/06/2025 1 1 Referral ID Status Reason Start Date Expiration Date Visits Re quested Visits Authorized [id number] Closed 1 1 Medications Administered Section Inactive [...] section and content) DATE CREATED AUTHOR 09/01/2020 [facility] ([place]) DATE CREATED AUTHOR AUTHOR'S ORGANIZ ATION 06/01/2023 [facility] DATE CREATED AUTHOR AUTHOR'S ORGANIZ ATION 08/17/2025 [facility] DATE CREATED AUTHOR AUTHOR'S ORGANIZ ATION 08/22/2025 [facility] DATE CREATED AUTHOR AUTHOR'S ORGANIZ ATION 09/07/2025 [facility] Comments (unrecognize d section and content) In the event this informatio n is protected by the Federal Confidentiality of Alcohol and Drug Abuse Patient Records regulations: The Federal rules restrict any use of the information to criminally investigate or prosecute any alcohol or drug abuse patient.[facility] this information is protected by the Federal Confidentiality of Alcohol and Drug Abuse Patient Records regulations: The Federal rules restrict any use of the information to criminally investigate or prosecute any alcohol or drug abuse patient.[facility] event this information is protected by the Federal Confidentiality of Alcohol and Drug Abuse Patient Records regulations: The Federal rules restrict any use of the information to criminally investigate or prosecute any alcohol or drug abuse patient.[facility] event this information is protected by the Federal Confidentiality of Alcohol and Drug Abuse Patient Records regulations: The Federal rules restrict any use of the information to criminally investigate or prosecute any alcohol or drug abuse patient.[facility] event this information is protected by the Federal Confidentiality of Alcohol and Drug Abuse Patient Records regulations: The Federal rules restrict any use of the information to criminally investigate or prosecute any alcohol or drug abuse patient.[facility] event this information is protected by the Federal Confidentiality of Alcohol and Drug Abuse Patient Records regulations: The Federal rules restrict any use of the information to criminally investigate or prosecute any alcohol or drug abuse patient.[facility] the event this information is protected by the Federal Confidentiality of Alcohol and Drug Abuse Patient Records regulations: The Federal rules restrict any use of the information to criminally investigate or prosecute any alcohol or drug abuse patient.[facility] HospitalIn the event this information is protected by the Federal Confidentiality of Alcohol and Drug Abuse Patient Records regulations: The Federal rules restrict any use of the information to criminally investigate or prosecute any alcohol or drug abuse patient.[facility] HospitalIn the event this information is protected by the Federal Confidentiality of Alcohol and Drug Abuse Patient Records regulations: The Federal rules restrict any use of the information to criminally investigate or prosecute any alcohol or drug abuse patient.[facility] HospitalIn the event this information is protected by the Federal Confidentiality of Alcohol and Drug Abuse Patient Records regulations: The Federal rules restrict any use of the information to criminally investigate or prosecute any alcohol or drug abuse patient.[facility] HospitalIn the event this information is protected by the Federal Confidentiality of Alcohol and Drug Abuse Patient Records regulations: The Federal rules restrict any use of the information to criminally investigate or prosecute any alcohol or drug abuse patient.[facility] HospitalIn the event this information is protected by the Federal Confidentiality of Alcohol and Drug Abuse Patient Records regulations: The Federal rules restrict any use of the information to criminally investigate or prosecute any alcohol or drug abuse patient.[facility] HospitalIn the event this information is protected by the Federal Confidentiality of Alcohol and Drug Abuse Patient Records regulations: The Federal rules restrict any use of the information to criminally investigate or prosecute any alcohol or drug abuse patient.[facility] HospitalIn the event this information is protected by the Federal Confidentiality of Alcohol and Drug Abuse Patient Records regulations: The Federal rules restrict any use of the information to criminally investigate or prosecute any alcohol or drug abuse patient.[facility] HospitalIn the event this information is protected by the Federal Confidentiality of Alcohol and Drug Abuse Patient Records regulations: The Federal rules restrict any use of the information to criminally investigate or prosecute any alcohol or drug abuse patient.[facility] HospitalIn the event this information is protected by the Federal Confidentiality of Alcohol and Drug Abuse Patient Records regulations: The Federal rules restrict any use of the information to criminally investigate or prosecute any alcohol or drug abuse patient.[facility] HospitalIn the event this information is protected by the Federal Confidentiality of Alcohol and Drug Abuse Patient Records regulations: The Federal rules restrict any use of the information to criminally investigate or prosecute any alcohol or drug abuse patient.[facility] HospitalIn the event this information is protected by the Federal Confidentiality of Alcohol and Drug Abuse Patient Records regulations: The Federal rules restrict any use of the information to criminally investigate or prosecute any alcohol or drug abuse patient.[facility] HospitalIn the event this information is protected by the Federal Confidentiality of Alcohol and Drug Abuse Patient Records regulations: The Federal rules restrict any use of the information to criminally investigate or prosecute any alcohol or drug abuse patient.[facility] HospitalIn the event this information is protected by the Federal Confidentiality of Alcohol and Drug Abuse Patient Records regulations: The Federal rules restrict any use of the information to criminally investigate or prosecute any alcohol or drug abuse patient.[facility] HospitalIn the event this information is protected by the Federal Confidentiality of Alcohol and Drug Abuse Patient Records regulations: The Federal rules restrict any use of the information to criminally investigate or prosecute any alcohol or drug abuse patient.[facility] HospitalIn the event this information is protected by the Federal Confidentiality of Alcohol and Drug Abuse Patient Records regulations: The Federal rules restrict any use of the information to criminally investigate or prosecute any alcohol or drug abuse patient.[facility] HospitalIn the event this information is protected by the Federal Confidentiality of Alcohol and Drug Abuse Patient Records regulations: The Federal rules restrict any use of the information to criminally investigate or prosecute any alcohol or drug abuse patient.[facility] HospitalIn the event this information is protected by the Federal Confidentiality of Alcohol and Drug Abuse Patient Records regulations: The Federal rules restrict any use of the information to criminally investigate or prosecute any alcohol or drug abuse patient.[facility] HospitalIn the event this information is protected by the Federal Confidentiality of Alcohol and Drug Abuse Patient Records regulations: The Federal rules restrict any use of the information to criminally investigate or prosecute any alcohol or drug abuse patient.[facility] HospitalIn the event this information is protected by the Federal Confidentiality of Alcohol and Drug Abuse Patient Records regulations: The Federal rules restrict any use of the information to criminally investigate or prosecute any alcohol or drug abuse patient.[facility] HospitalIn the event this information is protected by the Federal Confidentiality of Alcohol and Drug Abuse Patient Records regulations: The Federal rules restrict any use of the information to criminally investigate or prosecute any alcohol or drug abuse patient.[facility] HospitalIn the event this information is protected by the Federal Confidentiality of Alcohol and Drug Abuse Patient Records regulations: The Federal rules restrict any use of the information to criminally investigate or prosecute any alcohol or drug abuse patient.[facility] HospitalIn the event this information is protected by the Federal Confidentiality of Alcohol and Drug Abuse Patient Records regulations: The Federal rules restrict any use of the information to criminally investigate or prosecute any alcohol or drug abuse patient.[facility] HospitalIn the event this information is protected by the Federal Confidentiality of Alcohol and Drug Abuse Patient Records regulations: The Federal rules restrict any use of the information to criminally investigate or prosecute any alcohol or drug abuse patient.[facility] HospitalIn the event this information is protected by the Federal Confidentiality of Alcohol and Drug Abuse Patient Records regulations: The Federal rules restrict any use of the information to criminally investigate or prosecute any alcohol or drug abuse patient.[facility] HospitalIn the event this information is protected by the Federal Confidentiality of Alcohol and Drug Abuse Patient Records regulations: The Federal rules restrict any use of the information to criminally investigate or prosecute any alcohol or drug abuse patient.[facility] HospitalIn the event this information is protected by the Federal Confidentiality of Alcohol and Drug Abuse Patient Records regulations: The Federal rules restrict any use of the information to criminally investigate or prosecute any alcohol or drug abuse patient.[facility] HospitalIn the event this information is protected by the Federal Confidentiality of Alcohol and Drug Abuse Patient Records regulations: The Federal rules restrict any use of the information to criminally investigate or prosecute any alcohol or drug abuse patient.[facility] HospitalIn the event this information is protected by the Federal Confidentiality of Alcohol and Drug Abuse Patient Records regulations: The Federal rules restrict any use of the information to criminally investigate or prosecute any alcohol or drug abuse patient.[facility] HospitalIn the event this information is protected by the Federal Confidentiality of Alcohol and Drug Abuse Patient Records regulations: The Federal rules restrict any use of the information to criminally investigate or prosecute any alcohol or drug abuse patient.[facility] HospitalIn the event this information is protected by the Federal Confidentiality of Alcohol and Drug Abuse Patient Records regulations: The Federal rules restrict any use of the information to criminally investigate or prosecute any alcohol or drug abuse patient.[facility] HospitalIn the event this information is protected by the Federal Confidentiality of Alcohol and Drug Abuse Patient Records regulations: The Federal rules restrict any use of the information to criminally investigate or prosecute any alcohol or drug abuse patient.[facility] HospitalIn the event this information is protected by the Federal Confidentiality of Alcohol and Drug Abuse Patient Records regulations: The Federal rules restrict any use of the information to criminally investigate or prosecute any alcohol or drug abuse patient.[facility] HospitalIn the event this information is protected by the Federal Confidentiality of Alcohol and Drug Abuse Patient Records regulations: The Federal rules restrict any use of the information to criminally investigate or prosecute any alcohol or drug abuse patient.[facility] HospitalIn the event this information is protected by the Federal Confidentiality of Alcohol and Drug Abuse Patient Records regulations: The Federal rules restrict any use of the information to criminally investigate or prosecute any alcohol or drug abuse patient.[facility] HospitalIn the event this information is protected by the Federal Confidentiality of Alcohol and Drug Abuse Patient Records regulations: The Federal rules restrict any use of the information to criminally investigate or prosecute any alcohol or drug abuse patient.[facility] HospitalIn the event this information is protected by the Federal Confidentiality of Alcohol and Drug Abuse Patient Records regulations: The Federal rules restrict any use of the information to criminally investigate or prosecute any alcohol or drug abuse patient.[facility] HospitalIn the event this information is protected by the Federal Confidentiality of Alcohol and Drug Abuse Patient Records regulations: The Federal rules restrict any use of the information to criminally investigate or prosecute any alcohol or drug abuse patient.[facility] HospitalIn the event this information is protected by the Federal Confidentiality of Alcohol and Drug Abuse Patient Records regulations: The Federal rules restrict any use of the information to criminally investigate or prosecute any alcohol or drug abuse patient.[facility] HospitalIn the event this information is protected by the Federal Confidentiality of Alcohol and Drug Abuse Patient Records regulations: The Federal rules restrict any use of the information to criminally investigate or prosecute any alcohol or drug abuse patient.[facility] HospitalIn the event this information is protected by the Federal Confidentiality of Alcohol and Drug Abuse Patient Records regulations: The Federal rules restrict any use of the information to criminally investigate or prosecute any alcohol or drug abuse patient.[facility] HospitalIn the event this information is protected by the Federal Confidentiality of Alcohol and Drug Abuse Patient Records regulations: The Federal rules restrict any use of the information to criminally investigate or prosecute any alcohol or drug abuse patient.[facility] HospitalIn the event this information is protected by the Federal Confidentiality of Alcohol and Drug Abuse Patient Records regulations: The Federal rules restrict any use of the information to criminally investigate or prosecute any alcohol or drug abuse patient.[facility] HospitalIn the event this information is protected by the Federal Confidentiality of Alcohol and Drug Abuse Patient Records regulations: The Federal rules restrict any use of the information to criminally investigate or prosecute any alcohol or drug abuse patient.[facility] HospitalIn the event this information is protected by the Federal Confidentiality of Alcohol and Drug Abuse Patient Records regulations: The Federal rules restrict any use of the information to criminally investigate or prosecute any alcohol or drug abuse patient.[facility] HospitalIn the event this information is protected by the Federal Confidentiality of Alcohol and Drug Abuse Patient Records regulations: The Federal rules restrict any use of the information to criminally investigate or prosecute any alcohol or drug abuse patient.[facility] HospitalIn the event this information is protected by the Federal Confidentiality of Alcohol and Drug Abuse Patient Records regulations: The Federal rules restrict any use of the information to criminally investigate or prosecute any alcohol or drug abuse patient.[facility] HospitalIn the event this information is protected by the Federal Confidentiality of Alcohol and Drug Abuse Patient Records regulations: The Federal rules restrict any use of the information to criminally investigate or prosecute any alcohol or drug abuse patient.[facility] HospitalIn the event this information is protected by the Federal Confidentiality of Alcohol and Drug Abuse Patient Records regulations: The Federal rules restrict any use of the information to criminally investigate or prosecute any alcohol or drug abuse patient.[facility] HospitalIn the event this information is protected by the Federal Confidentiality of Alcohol and Drug Abuse Patient Records regulations: The Federal rules restrict any use of the information to criminally investigate or prosecute any alcohol or drug abuse patient.[facility] HospitalIn the event this information is protected by the Federal Confidentiality of Alcohol and Drug Abuse Patient Records regulations: The Federal rules restrict any use of the information to criminally investigate or prosecute any alcohol or drug abuse patient.[facility] HospitalIn the event this information is protected by the Federal Confidentiality of Alcohol and Drug Abuse Patient Records regulations: The Federal rules restrict any use of the information to criminally investigate or prosecute any alcohol or drug abuse patient.[facility] HospitalIn the event this information is protected by the Federal Confidentiality of Alcohol and Drug Abuse Patient Records regulations: The Federal rules restrict any use of the information to criminally investigate or prosecute any alcohol or drug abuse patient.[facility] HospitalIn the event this information is protected by the Federal Confidentiality of Alcohol and Drug Abuse Patient Records regulations: The Federal rules restrict any use of the information to criminally investigate or prosecute any alcohol or drug abuse patient.[facility] HospitalIn the event this information is protected by the Federal Confidentiality of Alcohol and Drug Abuse Patient Records regulations: The Federal rules restrict any use of the information to criminally investigate or prosecute any alcohol or drug abuse patient.[facility] HospitalIn the event this information is protected by the Federal Confidentiality of Alcohol and Drug Abuse Patient Records regulations: The Federal rules restrict any use of the information to criminally investigate or prosecute any alcohol or drug abuse patient.[facility] HospitalIn the event this information is protected by the Federal Confidentiality of Alcohol and Drug Abuse Patient Records regulations: The Federal rules restrict any use of the information to criminally investigate or prosecute any alcohol or drug abuse patient.[facility] HospitalIn the event this information is protected by the Federal Confidentiality of Alcohol and Drug Abuse Patient Records regulations: The Federal rules restrict any use of the information to criminally investigate or prosecute any alcohol or drug abuse patient.[facility] HospitalIn the event this information is protected by the Federal Confidentiality of Alcohol and Drug Abuse Patient Records regulations: The Federal rules restrict any use of the information to criminally investigate or prosecute any alcohol or drug abuse patient.[facility] HospitalIn the event this information is protected by the Federal Confidentiality of Alcohol and Drug Abuse Patient Records regulations: The Federal rules restrict any use of the information to criminally investigate or prosecute any alcohol or drug abuse patient.[facility] HospitalIn the event this information is protected by the Federal Confidentiality of Alcohol and Drug Abuse Patient Records regulations: The Federal rules restrict any use of the information to criminally investigate or prosecute any alcohol or drug abuse patient.[facility] HospitalIn the event this information is protected by the Federal Confidentiality of Alcohol and Drug Abuse Patient Records regulations: The Federal rules restrict any use of the information to criminally investigate or prosecute any alcohol or drug abuse patient.[facility] HospitalIn the event this information is protected by the Federal Confidentiality of Alcohol and Drug Abuse Patient Records regulations: The Federal rules restrict any use of the information to criminally investigate or prosecute any alcohol or drug abuse patient.[facility] HospitalIn the event this information is protected by the Federal Confidentiality of Alcohol and Drug Abuse Patient Records regulations: The Federal rules restrict any use of the information to criminally investigate or prosecute any alcohol or drug abuse patient.[facility] HospitalIn the event this information is protected by the Federal Confidentiality of Alcohol and Drug Abuse Patient Records regulations: The Federal rules restrict any use of the information to criminally investigate or prosecute any alcohol or drug abuse patient.[facility] HospitalIn the event this information is protected by the Federal Confidentiality of Alcohol and Drug Abuse Patient Records regulations: The Federal rules restrict any use of the information to criminally investigate or prosecute any alcohol or drug abuse patient.[facility] HospitalIn the event this information is protected by the Federal Confidentiality of Alcohol and Drug Abuse Patient Records regulations: The Federal rules restrict any use of the information to criminally investigate or prosecute any alcohol or drug abuse patient.[facility] HospitalIn the event this information is protected by the Federal Confidentiality of Alcohol and Drug Abuse Patient Records regulations: The Federal rules restrict any use of the information to criminally investigate or prosecute any alcohol or drug abuse patient.[facility] HospitalIn the event this information is protected by the Federal Confidentiality of Alcohol and Drug Abuse Patient Records regulations: The Federal rules restrict any use of the information to criminally investigate or prosecute any alcohol or drug abuse patient.[facility] HospitalIn the event this information is protected by the Federal Confidentiality of Alcohol and Drug Abuse Patient Records regulations: The Federal rules restrict any use of the information to criminally investigate or prosecute any alcohol or drug abuse patient.[facility] HospitalIn the event this information is protected by the Federal Confidentiality of Alcohol and Drug Abuse Patient Records regulations: The Federal rules restrict any use of the information to criminally investigate or prosecute any alcohol or drug abuse patient.[facility] HospitalIn the event this information is protected by the Federal Confidentiality of Alcohol and Drug Abuse Patient Records regulations: The Federal rules restrict any use of the information to criminally investigate or prosecute any alcohol or drug abuse patient.[facility] HospitalIn the event this information is protected by the Federal Confidentiality of Alcohol and Drug Abuse Patient Records regulations: The Federal rules restrict any use of the information to criminally investigate or prosecute any alcohol or drug abuse patient.[facility] HospitalIn the event this information is protected by the Federal Confidentiality of Alcohol and Drug Abuse Patient Records regulations: The Federal rules restrict any use of the information to criminally investigate or prosecute any alcohol or drug abuse patient.[facility] HospitalIn the event this information is protected by the Federal Confidentiality of Alcohol and Drug Abuse Patient Records regulations: The Federal rules restrict any use of the information to criminally investigate or prosecute any alcohol or drug abuse patient.[facility] HospitalIn the event this information is protected by the Federal Confidentiality of Alcohol and Drug Abuse Patient Records regulations: The Federal rules restrict any use of the information to criminally investigate or prosecute any alcohol or drug abuse patient.[facility] HospitalIn the event this information is protected by the Federal Confidentiality of Alcohol and Drug Abuse Patient Records regulations: The Federal rules restrict any use of the information to criminally investigate or prosecute any alcohol or drug abuse patient.[facility] HospitalIn the event this information is protected by the Federal Confidentiality of Alcohol and Drug Abuse Patient Records regulations: The Federal rules restrict any use of the information to criminally investigate or prosecute any alcohol or drug abuse patient.[facility] HospitalIn the event this information is protected by the Federal Confidentiality of Alcohol and Drug Abuse Patient Records regulations: The Federal rules restrict any use of the information to criminally investigate or prosecute any alcohol or drug abuse patient.[facility] HospitalIn the event this information is protected by the Federal Confidentiality of Alcohol and Drug Abuse Patient Records regulations: The Federal rules restrict any use of the information to criminally investigate or prosecute any alcohol or drug abuse patient.[facility] HospitalIn the event this information is protected by the Federal Confidentiality of Alcohol and Drug Abuse Patient Records regulations: The Federal rules restrict any use of the information to criminally investigate or prosecute any alcohol or drug abuse patient.[facility] HospitalIn the event this information is protected by the Federal Confidentiality of Alcohol and Drug Abuse Patient Records regulations: The Federal rules restrict any use of the information to criminally investigate or prosecute any alcohol or drug abuse patient.[facility] HospitalIn the event this information is protected by the Federal Confidentiality of Alcohol and Drug Abuse Patient Records regulations: The Federal rules restrict any use of the information to criminally investigate or prosecute any alcohol or drug abuse patient.[facility] HospitalIn the event this information is protected by the Federal Confidentiality of Alcohol and Drug Abuse Patient Records regulations: The Federal rules restrict any use of the information to criminally investigate or prosecute any alcohol or drug abuse patient.[facility] HospitalIn the event this information is protected by the Federal Confidentiality of Alcohol and Drug Abuse Patient Records regulations: The Federal rules restrict any use of the information to criminally investigate or prosecute any alcohol or drug abuse patient.[facility] HospitalIn the event this information is protected by the Federal Confidentiality of Alcohol and Drug Abuse Patient Records regulations: The Federal rules restrict any use of the information to criminally investigate or prosecute any alcohol or drug abuse patient.[facility] HospitalIn the event this information is protected by the Federal Confidentiality of Alcohol and Drug Abuse Patient Records regulations: The Federal rules restrict any use of the information to criminally investigate or prosecute any alcohol or drug abuse patient.[facility] HospitalIn the event this information is protected by the Federal Confidentiality of Alcohol and Drug Abuse Patient Records regulations: The Federal rules restrict any use of the information to criminally investigate or prosecute any alcohol or drug abuse patient.[facility] HospitalIn the event this information is protected by the Federal Confidentiality of Alcohol and Drug Abuse Patient Records regulations: The Federal rules restrict any use of the information to criminally investigate or prosecute any alcohol or drug abuse patient.[facility] HospitalIn the event this information is protected by the Federal Confidentiality of Alcohol and Drug Abuse Patient Records regulations: The Federal rules restrict any use of the information to criminally investigate or prosecute any alcohol or drug abuse patient.[facility] HospitalIn the event this information is protected by the Federal Confidentiality of Alcohol and Drug Abuse Patient Records regulations: The Federal rules restrict any use of the information to criminally investigate or prosecute any alcohol or drug abuse patient.[facility] HospitalIn the event this information is protected by the Federal Confidentiality of Alcohol and Drug Abuse Patient Records regulations: The Federal rules restrict any use of the information to criminally investigate or prosecute any alcohol or drug abuse patient.[facility] HospitalIn the event this information is protected by the Federal Confidentiality of Alcohol and Drug Abuse Patient Records regulations: The Federal rules restrict any use of the information to criminally investigate or prosecute any alcohol or drug abuse patient.[facility] HospitalIn the event this information is protected by the Federal Confidentiality of Alcohol and Drug Abuse Patient Records regulations: The Federal rules restrict any use of the information to criminally investigate or prosecute any alcohol or drug abuse patient.[facility] HospitalIn the event this information is protected by the Federal Confidentiality of Alcohol and Drug Abuse Patient Records regulations: The Federal rules restrict any use of the information to criminally investigate or prosecute any alcohol or drug abuse patient.[facility] HospitalIn the event this information is protected by the Federal Confidentiality of Alcohol and Drug Abuse Patient Records regulations: The Federal rules restrict any use of the information to criminally investigate or prosecute any alcohol or drug abuse patient.[facility] HospitalIn the event this information is protected by the Federal Confidentiality of Alcohol and Drug Abuse Patient Records regulations: The Federal rules restrict any use of the information to criminally investigate or prosecute any alcohol or drug abuse patient.[facility] HospitalIn the event this information is protected by the Federal Confidentiality of Alcohol and Drug Abuse Patient Records regulations: The Federal rules restrict any use of the information to criminally investigate or prosecute any alcohol or drug abuse patient.[facility] HospitalIn the event this information is protected by the Federal Confidentiality of Alcohol and Drug Abuse Patient Records regulations: The Federal rules restrict any use of the information to criminally investigate or prosecute any alcohol or drug abuse patient.[facility] HospitalIn the event this information is protected by the Federal Confidentiality of Alcohol and Drug Abuse Patient Records regulations: The Federal rules restrict any use of the information to criminally investigate or prosecute any alcohol or drug abuse patient.[facility] HospitalIn the event this information is protected by the Federal Confidentiality of Alcohol and Drug Abuse Patient Records regulations: The Federal rules restrict any use of the information to criminally investigate or prosecute any alcohol or drug abuse patient.[facility] HospitalIn the event this information is protected by the Federal Confidentiality of Alcohol and Drug Abuse Patient Records regulations: The Federal rules restrict any use of the information to criminally investigate or prosecute any alcohol or drug abuse patient.[facility] HospitalIn the event this information is protected by the Federal Confidentiality of Alcohol and Drug Abuse Patient Records regulations: The Federal rules restrict any use of the information to criminally investigate or prosecute any alcohol or drug abuse patient.[facility] HospitalIn the event this information is protected by the Federal Confidentiality of Alcohol and Drug Abuse Patient Records regulations: The Federal rules restrict any use of the information to criminally investigate or prosecute any alcohol or drug abuse patient.[facility] HospitalIn the event this information is protected by the Federal Confidentiality of Alcohol and Drug Abuse Patient Records regulations: The Federal rules restrict any use of the information to criminally investigate or prosecute any alcohol or drug abuse patient.[facility] HospitalIn the event this information is protected by the Federal Confidentiality of Alcohol and Drug Abuse Patient Records regulations: The Federal rules restrict any use of the information to criminally investigate or prosecute any alcohol or drug abuse patient.[facility] HospitalIn the event this information is protected by the Federal Confidentiality of Alcohol and Drug Abuse Patient Records regulations: The Federal rules restrict any use of the information to criminally investigate or prosecute any alcohol or drug abuse patient.[facility] HospitalIn the event this information is protected by the Federal Confidentiality of Alcohol and Drug Abuse Patient Records regulations: The Federal rules restrict any use of the information to criminally investigate or prosecute any alcohol or drug abuse patient.[facility] HospitalIn the event this information is protected by the Federal Confidentiality of Alcohol and Drug Abuse Patient Records regulations: The Federal rules restrict any use of the information to criminally investigate or prosecute any alcohol or drug abuse patient.[facility] HospitalIn the event this information is protected by the Federal Confidentiality of Alcohol and Drug Abuse Patient Records regulations: The Federal rules restrict any use of the information to criminally investigate or prosecute any alcohol or drug abuse patient.[facility] HospitalIn the event this information is protected by the Federal Confidentiality of Alcohol and Drug Abuse Patient Records regulations: The Federal rules restrict any use of the information to criminally investigate or prosecute any alcohol or drug abuse patient.[facility] HospitalIn the event this information is protected by the Federal Confidentiality of Alcohol and Drug Abuse Patient Records regulations: The Federal rules restrict any use of the information to criminally investigate or prosecute any alcohol or drug abuse patient.[facility] Reason for Visit (unrecogniz ed section [...] RS PT BPPV Monik Hackett MD [address] [place] [address] [place]aitlyn [place]én[place], [place] [address] [place] [address] Referral ID Status Reason Start Date Expiration Date Visits Re quested Visits Authorized [id number] Closed 02/22/2023 10/27/2023 1 1 Reason Comments Insurance Authorization Reason Onset Date Comments Refill Request 06/11/2023 Reason Comments ED Follow-up [facility] 06/29/23 Reason Comments Refill Request New [...] By Contac t Referred To Contact [facility] Diagnoses Shortness of breath Procedures LUNG VOLUMES Yasmine Martinez, LACQUER MIXER.EQUAL OPPORTUNITY ASSISTANT [address] [place] [address] [address] Referral ID Status Reason Start Date Expiration Date V isits Requested Visits Authorized [id number] Closed Auto-Generate d Referral 11/06/2023 10/27/2024 1 1 Specialty Diagnoses / Procedures Referred By Contac t Ref[facility] Diagnoses Shortness of breath Procedures SPIROMETRY - BASELINE AND POST DILATOR BRNCDILAT RSPSE SPMTRY PRE&POST-BRNCDILAT ADMN Yasmine Martinez, LACQUER MIXER.EQUAL OPPORTUNITY ASSISTANT [address] [place] [id number] Respiratory [address] [address] Referral ID Status Reason Start Date Expiration Date V isits Requested Visits Authorized [id number] Closed Auto-Generate d Referral 11/06/2023 10/27/2024 1 1 Specialty Diagnoses / Procedures Referred By Contac t Referred To Contact [facility] Diagnoses Hypoxia Shortness of breath Procedures OXIMETRY WITH AMBULATION NONINVASIVE EAR/PULSE OXIMETRY MULTIPLE DETER Yasmine Martinez, LACQUER MIXER.EQUAL OPPORTUNITY ASSISTANT [address] [place] [address] [address] Referral ID Status Reason Start Date Expiration Date V isits Requested Visits Authorized [id number] Closed Auto-Generate d Referral 12/03/2023 01/01/2025 1 1 Specialty Diagnoses / Procedures Referred By Contac t Referred To Contact [facility] Diagnoses Shortness of breath Procedures LUNG DIFFUSION CAPACITY (DLCO) DIFFUSING CAPACITY Yasmine Martinez, LACQUER MIXER.EQUAL OPPORTUNITY ASSISTANT [address] [place] [address] [address] Referral ID Status Reason Start Date Expiration Date V isits Requested Visits Authorized [id number] Closed Auto-Generate d Referral 11/06/2023 10/27/2024 1 [...] DETERMINATION Camila Johns MD [address] [place] [address] Respiratory [place] [address] [place] [address] Referral ID Status Reason Start Date Expiration Date V isits Requested Visits Authorized [id number] Closed Auto-Generate d Referral 01/24/2024 02/22/2025 1 1 Reason Comments Established Patient 3 month follow up as thak Reason Comments Recheck 6 month follow up [...] Care Teams (unrecognized sec tion and content) Fixture Builder Relationship Specialty Start Date End Date Monik Hackett MD [address] [place] [address] PCP - General Internal Medicine 07/19/20 [facility] [address] [facility] [place] [address] Pharmacist Pharmacy 12/26/20 Fixture Builder Relationship Specialty Start Date End Date Monik Hackett MD [address] [facility] [place] [address] PCP - General Internal Medicine 07/19/20 [facility] [address] [facility] [place] [address] Pharmacist Pharmacy 12/26/20 Fixture Builder Relationship Specialty Start Date End Date Monik Hackett MD [address] [place] [address] PCP - General Internal Medicine 07/19/20 [facility] [address] [facility] [place] [address] Pharmacist Pharmacy 12/26/20 Fixture Builder Relationship Specialty Start Date End Date Monik Hackett MD [address] [place] [address] PCP - General Internal Medicine 07/19/20 [facility] [address] [facility] [place] [address] Pharmacist Pharmacy 12/26/20 Fixture Builder Relationship Specialty Start Date End Date Monik Hackett MD [address] [place] [address] PCP - General Internal Medicine 07/19/20 Jess Perry, [facility] [address] [place] [address] Pharmacist Pharmacy 12/26/20 Fixture Builder Relationship Specialty Start Date End Date Monik Hackett MD [address] [place] [address] PCP - General Internal Medicine 07/19/20 Jess Perry, [facility] [address] [place] [address] Pharmacist Pharmacy 12/26/20 Fixture Builder Relationship Specialty Start Date End Date Monik Hackett MD [address] [place] [address] PCP - General Internal Medicine 07/19/20 Jess Perry, [facility] [address] [place] [address] Pharmacist Pharmacy 12/26/20 Fixture Builder Relationship Specialty Start Date End Date Monik Hackett MD [address] [place] [address] PCP - General Internal Medicine 07/19/20 Jess Perry, [facility] [address] [place] [address] Pharmacist Pharmacy 12/26/20 Fixture Builder Relationship Specialty Start Date End Date Monik Hackett MD [address] [place] [address] PCP - General Internal Medicine 07/19/20 Jess Perry, [facility] [address] [place] [address] Pharmacist Pharmacy 12/26/20 Fixture Builder Relationship Specialty Start Date End Date Monik Hackett MD [address] [place] [address] PCP - General Internal Medicine 07/19/20 Jess Perry, [facility] [address] [place] [address] Pharmacist Pharmacy 12/26/20 Fixture Builder Relationship Specialty Start Date End Date Monik Hackett MD [address] [place] [address] PCP - General Internal Medicine 07/19/20 Jess Perry, [facility] [address] [place] [address] Pharmacist Pharmacy 12/26/20 Fixture Builder Relationship Specialty Start Date End Date Monik Hackett MD [address] [place] [address] PCP - General Internal Medicine 07/19/20 Jess Perry, [facility] [address] [place] [address] Pharmacist Pharmacy 12/26/20 Fixture Builder Relationship Specialty Start Date End Date Monik Hackett MD [address] [place] [address] PCP - General Internal Medicine 07/19/20 Jess Perry, [facility] [address] [place] [address] Pharmacist Pharmacy 12/26/20 Fixture Builder Relationship Specialty Start Date End Date Monik Hackett MD [address] [place] [address] PCP - General Internal Medicine 07/19/20 Jess Perry, [facility] [address] [place] [address] Pharmacist Pharmacy 12/26/20 Fixture Builder Relationship Specialty Start Date End Date Monik Hackett MD [address] [facility] [address] PCP - General Internal Medicine 07/19/20 [facility] [address] [facility] [address] Pharmacist Pharmacy 12/26/20 Fixture Builder Relationship Specialty Start Date End Date Monik Hackett MD [address] [facility] [address] PCP - General Internal Medicine 07/19/20 [facility] [address] [facility] [address] Pharmacist Pharmacy 12/26/20 Fixture Builder Relationship Specialty Start Date End Date Monik Hackett MD [address] [facility] [address] PCP - General Internal Medicine 07/19/20 [facility] [address] [facility] [address] Pharmacist Pharmacy 12/26/20 Fixture Builder Relationship Specialty Start Date End Date Monik Hackett MD [address] [facility] [place] [address] PCP - General Internal Medicine 07/19/20 [facility] [address] [place] [address] Pharmacist Pharmacy 04/11/23 Fixture Builder Relationship Specialty Start Date End Date Monik Hackett MD [address] [place] [address] PCP - General Internal Medicine 07/19/20 [place] [address] [place] [address] Pharmacist Pharmacy 04/11/23 Fixture Builder Relationship Specialty Start Date End Date Monik Hackett MD [address] [place] [address] PCP - General Internal Medicine 07/19/20 [place] [address] [place] [address] Pharmacist Pharmacy 04/11/23 Fixture Builder Relationship Specialty Start Date End Date Monik Hackett MD [address] [place] [address] PCP - General Internal Medicine 07/19/20 [place] [address] [place] [address] Pharmacist Pharmacy 04/11/23 Fixture Builder Relationship Specialty Start Date End Date Monik Hackett MD [address] [place] [address] PCP - General Internal Medicine 07/19/20 [place] [address] [place] [address] Pharmacist Pharmacy 04/11/23 Fixture Builder Relationship Specialty Start Date End Date Monik Hackett MD [address] [place] [address] PCP - General Internal Medicine 07/19/20 [place] [address] [place] [address] Pharmacist Pharmacy 04/11/23 Fixture Builder Relationship Specialty Start Date End Date Monik Hackett MD [address] [place] [address] PCP - General Internal Medicine 07/19/20 [place] [address] [place] [address] Pharmacist Pharmacy 04/11/23 Fixture Builder Relationship Specialty Start Date End Date Monik Hackett MD [address] [place] [address] PCP - General Internal Medicine 07/19/20 [place] [address] [place] [address] Pharmacist Pharmacy 04/11/23 Fixture Builder Relationship Specialty Start Date End Date Monik Hackett MD [address] [place] [address] PCP - General Internal Medicine 07/19/20 [place] [address] [place] [address] Pharmacist Pharmacy 04/11/23 Fixture Builder Relationship Specialty Start Date End Date Monik Hackett MD [address] [place] [address] PCP - General Internal Medicine 07/19/20 [place] [address] [place] [address] Pharmacist Pharmacy 04/11/23 Fixture Builder Relationship Specialty Start Date End Date Monik Hackett MD [address] [place] [address] PCP - General Internal Medicine 07/19/20 [place] [address] [place] [address] Pharmacist Pharmacy 04/11/23 Fixture Builder Relationship Specialty Start Date End Date Monik Hackett MD [address] [place] [address] PCP - General Internal Medicine 07/19/20 [place] [address] [place] [address] Pharmacist Pharmacy 04/11/23 Fixture Builder Relationship Specialty Start Date End Date Monik Hackett MD [address] [place] [address] PCP - General Internal Medicine 07/19/20 Opal, [place] [address] [place] [address] Pharmacist Pharmacy 04/11/23 Fixture Builder Relationship Specialty Start Date End Date Monik Hackett MD [address] [place] [address] PCP - General Internal Medicine 07/19/20 [place], [place] [address] [place] [address] Pharmacist Pharmacy 04/11/23 Fixture Builder Relationship Specialty Start Date End Date Monik Hackett MD [address] [place] [address] PCP - General Internal Medicine 07/19/20 [place] [address] [place] [address] Pharmacist Pharmacy 04/11/23 Fixture Builder Relationship Specialty Start Date End Date Monik Hackett MD [address] [place] [address] PCP - General Internal Medicine 07/19/20 [place]ancie [place] [address] [place] [address] Pharmacist Pharmacy 04/11/23 Fixture Builder Relationship Specialty Start Date End Date Monik Hackett MD [address] [place] [address] PCP - General Internal Medicine 07/19/20 [facility] [address] [place] [address] Pharmacist Pharmacy 12/26/20 04/10/23 Fixture Builder Relationship Specialty Start Date End Date Monik Hackett MD [address] [place] [address] PCP - General Internal Medicine 07/19/20 [place] [address] [place] [address] Pharmacist Pharmacy 04/11/23 Fixture Builder Relationship Specialty Start Date End Date Monik Hackett MD [address] [place] [address] PCP - General Internal Medicine 07/19/20 [place] [address] [place] [address] Pharmacist Pharmacy 04/11/23 Fixture Builder Relationship Specialty Start Date End Date Monik Hackett MD [address] [place] [address] PCP - General Internal Medicine 07/19/20 [place] [address] [place] [address] Pharmacist Pharmacy 04/11/23 Fixture Builder Relationship Specialty Start Date End Date Monik Hackett MD [address] [place] [address] PCP - General Internal Medicine 07/19/20 [place] [address] [place] [address] Pharmacist Pharmacy 04/11/23 Fixture Builder Relationship Specialty Start Date End Date Monik Hackett MD [address] [place] [address] PCP - General Internal Medicine 07/19/20 [place] [address] [place] [address] Pharmacist Pharmacy 04/11/23 Fixture Builder Relationship Specialty Start Date End Date Monik Hackett MD [address] [place] [address] PCP - General Internal Medicine 07/19/20 [place] [address] [place] [address] Pharmacist Pharmacy 04/11/23 Fixture Builder Relationship Specialty Start Date End Date Monik Hackett MD [address] [place] [address] PCP - General Internal Medicine 07/19/20 [place] [address] [place] [address] Pharmacist Pharmacy 04/11/23 Fixture Builder Relationship Specialty Start Date End Date Monik Hackett MD [address] [place] [address] PCP - General Internal Medicine 07/19/20 [place] [address] [place] [address] Pharmacist Pharmacy 04/11/23 Fixture Builder Relationship Specialty Start Date End Date Monik Hackett MD [address] [place] [address] PCP - General Internal Medicine 07/19/20 [place] [address] [place] [address] Pharmacist Pharmacy 04/11/23 Fixture Builder Relationship Specialty Start Date End Date Monik Hackett MD [address] [place] [address] PCP - General Internal Medicine 07/19/20 [place] [address] [place] [address] Pharmacist Pharmacy 04/11/23 Fixture Builder Relationship Specialty Start Date End Date Monik Hackett MD [address] [place] [address] PCP - General Internal Medicine 07/19/20 [place] [address] [place] [address] Pharmacist Pharmacy 04/11/23 Fixture Builder Relationship Specialty Start Date End Date Monik Hackett MD [address] [place] [address] PCP - General Internal Medicine 07/19/20 [place] [address] [place] [address] Pharmacist Pharmacy 04/11/23 Fixture Builder Relationship Specialty Start Date End Date Monik Hackett MD [address] [place] [address] PCP - General Internal Medicine 07/19/20 [place] [address] [place] [address] Pharmacist Pharmacy 04/11/23 Fixture Builder Relationship Specialty Start Date End Date Monik Hackett MD [address] [place] [address] PCP - General Internal Medicine 07/19/20 [place] [address] [place] [address] Pharmacist Pharmacy 04/11/23 Fixture Builder Relationship Specialty Start Date End Date Monik Hackett MD [address] [place] [address] PCP - General Internal Medicine 07/19/20 [place] [address] [place] [address] Pharmacist Pharmacy 04/11/23 Fixture Builder Relationship Specialty Start Date End Date Monik Hackett MD [address] [place] [address] PCP - General Internal Medicine 07/19/20 [place], [place] [address] [place] [address] Pharmacist Pharmacy 04/11/23 Fixture Builder Relationship Specialty Start Date End Date Monik Hackett MD [address] [place] [address] PCP - General Internal Medicine 07/19/20 [place] [address] [place] [address] Pharmacist Pharmacy 04/11/23 Fixture Builder Relationship Specialty Start Date End Date Monik Hackett MD [address] [place] [address] PCP - General Internal Medicine 07/19/20 [place] [address] [place] [address] Pharmacist Pharmacy 04/11/23 Fixture Builder Relationship Specialty Start Date End Date Monik Hackett MD [address] [place] [address] PCP - General Internal Medicine 07/19/20 [place] [address] [place] [address] Pharmacist Pharmacy 04/11/23 Fixture Builder Relationship Specialty Start Date End Date Monik Hackett MD [address] [place] [address] PCP - General Internal Medicine 07/19/20 [place] [address] [place] [address] Pharmacist Pharmacy 04/11/23 Fixture Builder Relationship Specialty Start Date End Date Monik Hackett MD [address] [place] [address] PCP - General Internal Medicine 07/19/20 [facility] [address] [place] [address] Pharmacist Pharmacy 12/26/20 04/10/23 Fixture Builder Relationship Specialty Start Date End Date Monik Hackett MD [address] [place] [address] PCP - General Internal Medicine 07/19/20 [facility] [address] [place] [address] Pharmacist Pharmacy 12/26/20 04/10/23 Fixture Builder Relationship Specialty Start Date End Date Monik Hackett MD [address] [place] [address] PCP - General Internal Medicine 07/19/20 [place], [facility] [address] [place] [address] Pharmacist Pharmacy 04/11/23 Kelsi Alfred PA-C [address] [place] [address] [facility] 10/04/24 Lala Harrison APRN.CNP [address] [place] [address] [facility] 10/04/24 Liliana Espinoza PA-C [address] [place] [address] [facility] 10/04/24 Fixture Builder Relationship Specialty Start Date End Date Monik Hackett MD [address] [place] [address] PCP - General Internal Medicine 07/19/20 [place] [address] [place] [address] Pharmacist Pharmacy 04/11/23 Kelsi Alfred PA-C [address] [place] [address] [facility] 10/04/24 Lala Harrison APRN.EQUAL OPPORTUNITY ASSISTANT [address] [place] [address] [facility] 10/04/24 Liliana Espinoza PA-C [address] [place] [address] [facility] 10/04/24 Fixture Builder Relationship Specialty Start Date End Date Monik Hackett MD [address] [place] [address] PCP - General Internal Medicine 07/19/20 [place] [address] [place] [phone] Pharmacist Pharmacy 04/11/23 Kelsi Alfred PA-C [address] [place] [address] [facility] 10/04/24 Lala Harrison APRN.EQUAL OPPORTUNITY ASSISTANT [address] [facility] [place] [address] [facility] 10/04/24 Liliana Espinoza PA-C [address] [place] [address] [facility] 10/04/24 Fixture Builder Relationship Specialty Start Date End Date Monik Hackett MD [address] [place] [address] PCP - General Internal Medicine 07/19/[address] [phone] Pharmacist Pharmacy 04/11/23 Kelsi Alfred PA-C [address] [place] [address] [facility] 10/04/24 Lala Harrison APRN.EQUAL OPPORTUNITY ASSISTANT [address] [place] [address] [facility] 10/04/24 Liliana Espinoza PA-C [address] [place] [address] [facility] 10/04/24 Fixture Builder Relationship Specialty Start Date End Date Monik Hackett MD [address] [place] [address] PCP - General Internal Medicine 07/19/20 [place] [address] [place] [phone] Pharmacist Pharmacy 04/11/23 Kelsi Alfred PA-C [address] [place] [address] [facility] 10/04/24 Lala Harrison APRN.EQUAL OPPORTUNITY ASSISTANT [address] [place] [address] [facility] 10/04/24 Liliana Espinoza PA-C [address] [place] [address] [facility] 10/04/24 Fixture Builder Relationship Specialty Start Date End Date Monik Hackett MD [address] [place] [address] PCP - General Internal Medicine 07/19/20 Fior Joseph, [facility] [address] [place] [phone] Pharmacist Pharmacy 04/11/23 Kelsi Alfred PA-C [address] [place] [address] [facility] 10/04/24 Lala Harrison APRN.EQUAL OPPORTUNITY ASSISTANT [address] [place] [address] [facility] 10/04/24 Liliana Espinoza PA-C [address] [place] [address] [facility] 10/04/24 Fixture Builder Relationship Specialty Start Date End Date Monik Hackett MD [address] [place] [address] PCP - General Internal Medicine 07/19/20 [place] [address] [place] [address] Pharmacist Pharmacy 04/11/23 Lala Harrison APRN.EQUAL OPPORTUNITY ASSISTANT [address] [place] [address] [facility] 10/04/24 Fixture Builder Relationship Specialty Start Date End Date Monik Hackett MD [address] [place] [address] PCP - General Internal Medicine 07/19/20 [place] [address] [place] [address] Pharmacist Pharmacy 04/11/23 Lala Harrison APRN.EQUAL OPPORTUNITY ASSISTANT [address] [place] [address] [facility] 10/04/24 Fixture Builder Relationship Specialty Start Date End Date Monik Hackett MD [address] [place] [address] PCP - General Internal Medicine 07/19/20 [place] [address] [place] [address] Pharmacist Pharmacy 04/11/23 Lala Harrison APRN.EQUAL OPPORTUNITY ASSISTANT [address] [place] [address] [facility] 10/04/24 Fixture Builder Relationship Specialty Start Date End Date Monik Hackett MD [address] [facility] [address] PCP - General Internal Medicine 07/19/20 [place] [address] [place] [address] Pharmacist Pharmacy 04/11/23 Lala Harrison APRN.EQUAL OPPORTUNITY ASSISTANT [address] [place] [address] [facility] 10/04/24 Fixture Builder Relationship Specialty Start Date End Date Monik Hackett MD [address] [facility] [place] [address] PCP - General Internal Medicine 07/19/20 [place] [address] [place] [address] Pharmacist Pharmacy 04/11/23 Lala Harrison APRN.EQUAL OPPORTUNITY ASSISTANT [address] [place] [address] [facility] 10/04/24 Fixture Builder Relationship Specialty Start Date End Date Monik Hackett MD [address] [place] [address] PCP - General Internal Medicine 07/19/20 [place] [address] [place] [address] Pharmacist Pharmacy 04/11/23 Lala Harrison APRN.EQUAL OPPORTUNITY ASSISTANT [address] [facility] [place] [address] [facility] 10/04/24 Fixture Builder Relationship Specialty Start Date End Date Monik Hackett MD [address] [place] [address] PCP - General Internal Medicine 07/19/20 [place], [place] [address] [place] [address] Pharmacist Pharmacy 04/11/23 Lala Harrison APRN.EQUAL OPPORTUNITY ASSISTANT [address] [facility] [place] [address] [facility] 10/04/24 Fixture Builder Relationship Specialty Start Date End Date Monik Hackett MD [address] [place] [address] PCP - General Internal Medicine 07/19/20 [place] [address] [place] [address] Pharmacist Pharmacy 04/11/23 Lala Harrison APRN.EQUAL OPPORTUNITY ASSISTANT [address] [place] [address] [facility] 10/04/24 Fixture Builder Relationship Specialty Start Date End Date Monik Hackett MD [address] [place] [address] PCP - General Internal Medicine 07/19/20 [place] [address] [place] [address] Pharmacist Pharmacy 04/11/23 Lala Harrison APRN.EQUAL OPPORTUNITY ASSISTANT [address] [place] [address] [facility] 10/04/24 Fixture Builder Relationship Specialty Start Date End Date Monik Hackett MD [address] [place], [place] [id number] PCP - General Internal Medicine 07/19/20 [place] [address] [place] [address] Pharmacist Pharmacy 04/11/23 Lala Harrison APRN.EQUAL OPPORTUNITY ASSISTANT [address] [place], [place] [address] [facility] Internal [facility] 10/04/24 Fixture Builder Relationship Specialty Start Date End Date Monik Hackett MD [address] [facility], [place] [address] PCP - General Internal Medicine 07/19/20 [place] [address] [place] [address] Pharmacist Pharmacy 04/11/23 Lala Harrison APRN.EQUAL OPPORTUNITY ASSISTANT [address] [place] [address] [facility] 10/04/24 FOR RECORDS PERTAINING TO [...] BE BASED ON THE PRIMARY CLINICAL RECORDS. [employer] [facility] provides no warranty or guarantee of the accuracy or completeness of information in this document.
[2025-09-24 02:46] LABS: Barbiturate Urine NEGATIVE (< 200 ng/mL); Benzodiazepine Urine NEGATIVE (< 200 ng/mL); PCP Urine NEGATIVE (< 25 ng/mL); THC Urine NEGATIVE (< 50 ng/mL)
[2025-09-24 03:05] VITALS: BP 136/72; PULSE 102; RESP 18; TEMP 36.7; O2SAT 95
== END 2025-09-24 03:05 | disposition home or self-care (01) ==
PROVIDERS: Internal Medicine; Emergency Provider Surgery; PCP Internal Medicine; Visit Provider Surgery
DX: E87.6 Hypokalemia (principal); E11.9 Type 2 diabetes mellitus without complications; Z79.4 Long term (current) use of insulin; R20.2 Paresthesia of skin; R47.81 Slurred speech; I10 Essential (primary) hypertension; E78.00 Pure hypercholesterolemia, unspecified; Z79.899 Other long term (current) drug therapy
CPT/HCPCS: 70450; 70496; 70498; 71046; 80053; 80307; 81001; 83735; 84484; 85025; 85610; 85730; 93005; 96360; 96361; 99284; Q9967; A4216